=== PATIENT | female | born 1950 | race Caucasian/White ===

== ENCOUNTER → 2018-06-03 09:19 | Outpatient (CLI) | payer MEDICARE, OTHER, SELFPAY ==
[2018-06-03 10:10] LABS: Cholesterol 157 mg/dL (140-199); HDL Cholesterol 41 mg/dL (40-60); LDL Cholesterol Calculated 94 mg/dL (<100); Triglycerides 111 mg/dL (35-150)
== END ==
PROVIDERS: Visit Provider Family Medicine
DX: I25.10 Atherosclerotic heart disease of native coronary artery without angina pectoris (principal)
CPT/HCPCS: 36415; 80061

== ENCOUNTER → 2018-06-13 15:31 | Outpatient (CLI) | payer MEDICARE, OTHER, SELFPAY ==
[2018-06-15 14:59] LABS: Free Kappa Light Chain 28.9 mg/L (3.3-19.4); Free Kappa/ Lambda Ratio 1.83 (0.26-1.65); Free Lambda 15.8 mg/L (5.7-26.3)
[2018-06-15 21:30] LABS: Albumin 3.7 g/dL (3.8-4.8); Alpha 1 Globulin 0.3 g/dL (0.2-0.3); Alpha 2 Globulin 0.7 g/dL (0.5-0.9); Beta 1 Globulin 0.4 g/dL (0.4-0.6); Gamma Globulin 0.7 g/dL (0.8-1.7); Protein, Total 6.2 g/dL (6.1-8.1)
== END ==
PROVIDERS: Family Provider Family Medicine; PCP Family Medicine; Visit Provider Nurse Practitioner Gerontology
DX: D47.2 Monoclonal gammopathy (principal)
CPT/HCPCS: 36415; 83883; 84155; 84165

== ENCOUNTER → 2018-06-15 09:46 | Outpatient (CLI) | payer MEDICARE, OTHER, SELFPAY ==
--- NOTE | 2018-06-15 | DI.MG.S_ITS ---
BILATERAL DIGITAL SCREENING MAMMOGRAM 3D/2D WITH CAD: 06/15/2018 CLINICAL: Routine screening. Family history of breast cancer. Comparison is made to exams dated: 08/06/2014 mammogram, 07/21/2013 mammogram, and 06/06/2016 mammogram - [facility]. There are scattered fibroglandular elements in both breasts. Current study was also evaluated with a Computer Aided Detection (CAD) system. No significant masses, calcifications, or other findings are seen in either breast. There has been no significant interval change. IMPRESSION: There is no mammographic evidence of malignancy. A 1 year screening mammogram is recommended.(06/16/2019) This exam was interpreted at Station ID: [id number]. NOTE: For mammograms, a report in lay terms will be sent to the patient. Approximately 15% of breast malignancies will not be visualized mammographically. In the management of a palpable breast mass, a negative mammogram must not discourage biopsy of a clinically suspicious lesion. Electronically Signed By: Jesi anders/veda:06/17/2018 13:00:16 letter sent: Normal Exam ACR BI-RADS Category 1: Negative [id number]
== END ==
PROVIDERS: PCP Family Medicine; Visit Provider Family Medicine
DX: Z12.31 Encounter for screening mammogram for malignant neoplasm of breast (principal); Z80.3 Family history of malignant neoplasm of breast
CPT/HCPCS: 77063; 77067

== ENCOUNTER → 2018-06-24 09:13 | Outpatient (CLI) | payer MEDICARE, OTHER, SELFPAY ==
[2018-06-24 09:37] LABS: Add Manual Diff / Slide Review NO; Basophils Percent Auto 0.9 % (0-2); Eosinophils Percent Auto 2.2 % (2-4); Hematocrit 36.5 % (36-46); Hemoglobin 12.3 g/dL (12.0-16.0); Lymphocytes Percent Auto 16.6 % (25-40); Mean Corpuscular HGB Conc 33.7 % (30-36); Mean Corpuscular Hemoglobin 26.8 PG (26-34); Mean Corpuscular Volume 79.6 fL (80-100); Monocytes Percent Auto 7.4 % (3-14); Neutrophils Absolute Auto 3800 /uL (3000-5900); Neutrophils Percent Auto 72.9 % (50-75); Platelet Count 258 X10^3/uL (150-400); Red Blood Cell Count 4.58 X10^6/uL (4.0-5.2); Red Cell Distribution Width 15.7 % (11.6-14.8); White Blood Cell Count 5.3 X10^3/uL (4.5-11.0)
[2018-06-24 10:05] LABS: Alanine Aminotransferase 23 IU/L (9-52); Albumin Globulin Ratio 1.3 (1.0-2.8); Alkaline Phosphatase 86 U/L (38-126); Aspartate Aminotransferase 18 IU/L (14-36); Bilirubin Total 1.2 mg/dL (0.2-1.3); Blood Urea Nitrogen 27 mg/dL (7-17); Calcium 9.2 mg/dL (8.4-10.2); Carbon Dioxide 29 mmol/L (22-32); Chloride 104 mmol/L (98-107); Estimated Glomerular Filt Rate > 60.0 mL/min (>60); Globulin 3.1 g/dL (1.7-4.1); Glucose 96 mg/dL (80-110); HEMOLYSIS < 15 (0-50); Potassium 4.2 mmol/L (3.4-5.1); Sodium 144 mmol/L (137-145); Total Protein 7.1 g/dL (6.3-8.2)
== END ==
PROVIDERS: Internal Medicine Hematology & Oncology; PCP Family Medicine; Visit Provider Nurse Practitioner Gerontology
DX: D47.2 Monoclonal gammopathy (principal)
CPT/HCPCS: 36415; 80053; 85025

== ENCOUNTER 2018-07-01 13:30 | Oncology outpatient (ONC) | payer MEDICARE, OTHER, SELFPAY ==
[2018-07-01 13:45] VITALS: BP 131/62; PULSE 64; RESP 18; TEMP 36.8; O2SAT 96
--- NOTE | 2018-07-01 14:56 | ONC.PN ---
PN -Subjective Interval history: Chief complaint 68-year-old female with presumed MGUS. History of Present Illness Mrs. 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 Patient has been having a stable free light chain ratio since her original diagnosis made in March 2016. According to the medical records patient was found to have a M spike on protein electrophoresis in February of 2016 and again in April of 2014. However the immunofixation was negative for any abnormalities. Patient then underwent bone marrow aspiration biopsy on June 09, 2016. No abnormal plasma cells were identified. Multiple myeloma FISH panel was also negative. Quantitative immunoglobulins for IgA, IgG, IgM were all normal at 151, 813, and 57, respectively. Only beta 2 microglobulin level was slightly elevated 0.4. Fat pad biopsy on June the 03/13/2016 was negative for Congo red staining. Patient has a history of coronary artery disease with LAD stents x3. And echocardiogram performed on December 16, 2015 showed at normal ejection fraction 60-65% however patient said that she was diagnosed with diastolic dysfunction. Since then patient has not had a repeat echocardiogram done yet. Patient presents here today for scheduled follow-up visit. Clinically patient reported that her main symptoms has been th intermittent severe weakness. Patient said that at times she was barely able to go to her car. The symptoms are usually better in the morning but with time it got worse. Patient also reported that for the past 1 year she has noticed night sweats suspicious for possible hot flashes. Patient currently is on diet with weight control. In addition patient recently noticed a rapidly growing right lower abdomen nevi. Patient said it was not there just of 2 weeks ago. 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 - Additional ROS All systems PM: reviewed and no additional remarkable complaints except as stated Home Medications and Allergies Home Medications Medication Instructions Recorded Confirmed Type NITROGLYCERIN (Nitrostat) 0.4 mg SUBLINGUAL PRN #0 10/11/10 06/20/18 History Fish Oil 1,000 mg PO BID #0 11/29/12 06/20/18 History albuterol sulfate [Ventolin HFA] 2 puff INH Q4HP PRN #1 inh 08/29/16 06/20/18 Rx carvedilol 25 mg tablet 37.5 mg PO BID #270 tab 02/28/18 06/20/18 Rx isosorbide mononitrate ER 60 mg 60 mg PO DAILY 05/23/18 06/20/18 History tablet,extended release 24 hr tramadol 50 mg tablet 25 mg PO Q4-6H PRN #7 tab 06/17/18 06/20/18 Rx clopidogrel 75 mg tablet 75 mg PO DAILY 06/20/18 06/20/18 History losartan 100 mg tablet 100 mg PO DAILY 06/20/18 06/20/18 History Allergies Allergy/AdvReac Type Severity Reaction Status Date / Time Haemophilus B polysaccharide Allergy Intermediate YRS AGO Verified 06/20/18 13:22 conj w CAUSED [From TriHIBit] FEVER, RECENTLY MOUTH SORES adhesive Allergy Mild Verified 06/20/18 13:22 diazepam Allergy Mild OPPOSITE Verified 06/20/18 13:22 EFFECT, BECAME HYPER/INCOMPLIANT--O.K. WITH VERSED diphtheria,pertussis Allergy Mild YRS AGO Verified 06/20/18 13:22 (acellular),te CAUSED [From TriHIBit] FEVER, RECENTLY MOUTH SORES pseudoephedrine Allergy Mild INCREASED Verified 06/20/18 13:22 HEART RATE Sulfa (Sulfonamide Allergy Unknown Verified 06/20/18 13:22 Antibiotics) [SULFA (SULFONAMIDE ANTIBIOTICS)] benazepril [From Lotensin] Allergy angioadema Verified 06/20/18 13:22 Beta-Blockers AdvReac Mild LOW Verified 06/20/18 13:22 (Beta-Adrenergic Bloc TOLERANCE - HR IN 30s - HOSPITALIZED Exam Vital signs: Temp 98.2 F 07/01/18 13:45 Pulse 64 07/01/18 13:45 Resp 18 07/01/18 13:45 BP 131/62 07/01/18 13:45 Pulse Ox 96 07/01/18 13:45 ECOG 1 Narrative: Constitutional: Well developed, well nourished, not in any acute respiratory distress, average body habitus, well groomed, pleasant and cooperative. HEENT: Normocephalic atraumatic. Extraocular muscle movement intact. Pupils are round, equal and reactive to light and accommodations. Anicteric sclera. No hearing difficulty; Oral mucus membrane moist and without ulcers. Neck: Supple, symmetrical, and tracheal midline; No palpable thyromegaly and no palpable lymph nodes. Respiratory: No use of accessory muscles. Clear to auscultation, and no wheezes or rales or rubs. Cardiovascular: Regular rate and rhythm, S1 and S2 normal, no murmurs gallops or rubs. No JVD. No pitting edema of lower extremities. Abdomen: Soft, nontender, non-distended, bowel sounds normal, no palpable organomegaly, no hernia, no palpable masses. The right lower abdominal wall, there is a irregular shaped brownish nevi slightly raised above the skin. Lower extremities: No palpable pedal edema. On the right side, there is a soft tissue mass supposedly 'lipoma' to the lateral side of the right knee, movable and nontender. Lymphatic: no palpable lymph nodes in the neck, axillae, or groins. Musculoskeletal: normal gait and station, no clubbing, no cyanosis, no pitting edema. Skin: no rashes, no ulcers, no petechiae Neurological: Awake and alert and oriented x3. CN II-XII grossly intact. No focal motor or sensory deficit. Psychiatric: Good judgment, good insight, normal affect, normal thought process, cooperative, no depression, no anxiety. Results - Labs Patient's most recent blood work was performed on June 18, 2018. The CBCs were normal except mild microcytosis with MCV of 79. Protein electrophoresis showed no evidence of M spike. And immunofixation showed no monoclonal proteins. And furthermore the serum free light chain ratio has been stable slightly above the normal range. - Imaging Additional studies: Procedures Injection of anesthetic into peripheral nerve for analgesia (01/20/13) Injection of steroid (12/18/11) Injection or infusion of other therapeutic or prophylactic substance (09/23/13) Manual rupture of joint adhesions (01/20/13) Total knee replacement (01/20/13) Assessment and Plan (1) Monoclonal gammopathy of unknown significance (MGUS) I reviewed the laboratory results with the patient especially SPEP and the immunofixation results from 06/18/2018 with the patient. I also noticed that the previous bone marrow aspiration biopsy was completely normal without evidence of monoclonal plasma cells. I told her that she must be having an evolving MGUS. But at least there is no evidence of progression or evolution into multiple myeloma. I think the best follow-up is to repeat the blood work in about 6 months including CBC, CMP and multiple myeloma panel. We will re-evaluate and discuss about further testing including bone marrow aspiration biopsy. I talked with the patient that the abnormal ratio of serum free light chains can happen in a variety of different diseases including MGUS, multiple myeloma, free light chain disease or even chronic diseases. Patient verbalized understanding. (2) Atypical nevus of abdominal wall According to patient, the right lower abdominal wall nevi seems to be spring up within the last 2 weeks. Patient feels a little bit uncomfortable, but no pain. Given the rapidity of the growth, I think that needs to be biopsied at least by sap pp consultant. We will refer to sap pp consultant for further evaluation. (3) Weak Patient reported previous history of cardiac disease with stents placement x3 in the LAD. I talked with them that in my opinion she needs to be evaluated by Cardiology. The previous echo study was almost 2 years ago. I do not think that the MGUS or the light chain disease can cause these episodic severe weakness. (4) Lipoma Patient insisted that the right knee soft tissue ?lipoma? has been growing since about 1 year ago. It used to be quite small. She feels a little bit discomfort. I talked with her that since his groin, I would think it would be better to have a surgeon to take a look and if it is re-sectable. Patient voiced understanding, and will call surgeon herself.
--- NOTE | 2018-07-01 15:04 | P.PNONC_ITS ---
PN -Subjective Interval history: Chief complaint 68-year-old female with presumed MGUS. History of Present Illness Mrs. 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 Patient has been having a stable free light chain ratio since her original diagnosis made in March 2016. According to the medical records patient was found to have a M spike on protein electrophoresis in February of 2016 and again in April of 2014. However the immunofixation was negative for any abnormalities. Patient then underwent bone marrow aspiration biopsy on June 09, 2016. No abnormal plasma cells were identified. Multiple myeloma FISH panel was also negative. Quantitative immunoglobulins for IgA, IgG, IgM were all normal at 151, 813, and 57, respectively. Only beta 2 microglobulin level was slightly elevated 0.4. Fat pad biopsy on June the 03/13/2016 was negative for [place] red staining. Patient has a history of coronary artery disease with LAD stents x3. And echocardiogram performed on December 16, 2015 showed at normal ejection fraction 60 -65% however patient said that she was diagnosed with diastolic dysfunction. Since then patient has not had a repeat echocardiogram done yet. Patient presents here today for scheduled follow-up visit. Clinically patient reported that her main symptoms has been th intermittent severe weakness. Patient said that at times she was barely able to go to her car. The symptoms are usually better in the morning but with time it got worse. Patient also reported that for the past 1 year she has noticed night sweats suspicious for possible hot flashes. Patient currently is on diet with weight control. In addition patient recently noticed a rapidly growing right lower abdomen nevi. Patient said it was not there just of 2 weeks ago. 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 - Additional ROS All systems PM: reviewed and no additional remarkable complaints except as stated Home Medications and Allergies Home Medications Medication Instructions Recorded Confirmed Type NITROGLYCERIN (Nitrostat) 0.4 mg SUBLINGUAL PRN #0 10/11/10 06/20/18 History Fish Oil 1,000 mg PO BID #0 11/29/12 06/20/18 History albuterol sulfate [Ventolin HFA] 2 puff INH Q4HP PRN #1 inh 08/29/16 06/20/18 Rx carvedilol 25 mg tablet 37.5 mg PO BID #270 tab 02/28/18 06/20/18 Rx isosorbide mononitrate ER 60 mg 60 mg PO DAILY 05/23/18 06/20/18 History tablet,extended release 24 hr tramadol 50 mg tablet 25 mg PO Q4-6H PRN #7 tab 06/17/18 06/20/18 Rx clopidogrel 75 mg tablet 75 mg PO DAILY 06/20/18 06/20/18 History losartan 100 mg tablet 100 mg PO DAILY 06/20/18 06/20/18 History Allergies Allergy/AdvReac Type Severity Reaction Status Date / Time Haemophilus B polysaccharide Allergy Intermediate YRS AGO Verified 06/20/18 13: 22 conj w CAUSED [From TriHIBit] FEVER, RECENTLY MOUTH SORES adhesive Allergy Mild Verified 06/20/18 13:22 diazepam Allergy Mild OPPOSITE Verified 06/20/18 13:22 EFFECT, BECAME HYPER/INCOMPLIANT--O.K. WITH VERSED diphtheria,pertussis Allergy Mild YRS AGO Verified 06/20/18 13:22 (acellular),te CAUSED [From TriHIBit] FEVER, RECENTLY MOUTH SORES pseudoephedrine Allergy Mild INCREASED Verified 06/20/18 13:22 HEART RATE Sulfa (Sulfonamide Allergy Unknown Verified 06/20/18 13:22 Antibiotics) [SULFA (SULFONAMIDE ANTIBIOTICS)] benazepril [From Lotensin] Allergy angioadema Verified 06/20/18 13:22 Beta-Blockers AdvReac Mild LOW Verified 06/20/18 13:22 (Beta-Adrenergic Bloc TOLERANCE - HR IN 30s - HOSPITALIZED Exam Vital signs: 3 Temp 98.2 F 07/01/18 13:45 Pulse 64 07/01/18 13:45 Resp 18 07/01/18 13:45 BP 131/62 07/01/18 13:45 Pulse Ox 96 07/01/18 13:45 ECOG 1 Narrative: Constitutional: Well developed, well nourished, not in any acute respiratory distress, average body habitus, well groomed, pleasant and cooperative. HEENT: Normocephalic atraumatic. Extraocular muscle movement intact. Pupils are round, equal and reactive to light and accommodations. Anicteric sclera. No hearing difficulty; Oral mucus membrane moist and without ulcers. Neck: Supple, symmetrical, and tracheal midline; No palpable thyromegaly and no palpable lymph nodes. Respiratory: No use of accessory muscles. Clear to auscultation, and no wheezes or rales or rubs. Cardiovascular: Regular rate and rhythm, S1 and S2 normal, no murmurs gallops or rubs. No JVD. No pitting edema of lower extremities. Abdomen: Soft, nontender, non-distended, bowel sounds normal, no palpable organomegaly, no hernia, no palpable masses. The right lower abdominal wall, there is a irregular shaped brownish nevi slightly raised above the skin. Lower extremities: No palpable pedal edema. On the right side, there is a soft tissue mass supposedly 'lipoma' to the lateral side of the right knee, movable and nontender. Lymphatic: no palpable lymph nodes in the neck, axillae, or groins. Musculoskeletal: normal gait and station, no clubbing, no cyanosis, no pitting edema. Skin: no rashes, no ulcers, no petechiae Neurological: Awake and alert and oriented x3. CN II-XII grossly intact. No focal motor or sensory deficit. Psychiatric: Good judgment, good insight, normal affect, normal thought process , cooperative, no depression, no anxiety. Results - Labs Patient's most recent blood work was performed on June 18, 2018. The CBCs were normal except mild microcytosis with MCV of 79. Protein electrophoresis showed no evidence of M spike. And immunofixation showed no monoclonal proteins. And furthermore the serum free light chain ratio has been stable slightly above the normal range. - Imaging Additional studies: Procedures Injection of anesthetic into peripheral nerve for analgesia (01/20/13) Injection of steroid (12/18/11) Injection or infusion of other therapeutic or prophylactic substance (09/23/13) Manual rupture of joint adhesions (01/20/13) Total knee replacement (01/20/13) Assessment and Plan (1) Monoclonal gammopathy of unknown significance (MGUS) I reviewed the laboratory results with the patient especially SPEP and the immunofixation results from 06/18/2018 with the patient. I also noticed that the previous bone marrow aspiration biopsy was completely normal without evidence of monoclonal plasma cells. I told her that she must be having an evolving MGUS. But at least there is no evidence of progression or evolution into multiple myeloma. I think the best follow-up is to repeat the blood work in about 6 months including CBC, CMP and multiple myeloma panel. We will re- evaluate and discuss about further testing including bone marrow aspiration biopsy. I talked with the patient that the abnormal ratio of serum free light chains can happen in a variety of different diseases including MGUS, multiple myeloma, free light chain disease or even chronic diseases. Patient verbalized understanding. (2) Atypical nevus of abdominal wall According to patient, the right lower abdominal wall nevi seems to be spring up within the last 2 weeks. Patient feels a little bit uncomfortable, but no pain. Given the rapidity of the growth, I think that needs to be biopsied at least by natural gas plant supervisor. We will refer to natural gas plant supervisor for further evaluation. (3) Weak Patient reported previous history of cardiac disease with stents placement x3 in the LAD. I talked with them that in my opinion she needs to be evaluated by Cardiology. The previous echo study was almost 2 years ago. I do not think that the MGUS or the light chain disease can cause these episodic severe weakness. (4) Lipoma Patient insisted that the right knee soft tissue ?lipoma? has been growing since about 1 year ago. It used to be quite small. She feels a little bit discomfort. I talked with her that since his groin, I would think it would be better to have a surgeon to take a look and if it is re-sectable. Patient voiced understanding, and will call surgeon herself.
== END 2018-07-02 12:00 | disposition home or self-care (01) ==
PROVIDERS: Family Provider Family Medicine; PCP Family Medicine; Visit Provider Nurse Practitioner Gerontology
DX: D47.2 Monoclonal gammopathy (principal); D22.5 Melanocytic nevi of trunk; R53.1 Weakness; D17.79 Benign lipomatous neoplasm of other sites
CPT/HCPCS: 99214

== ENCOUNTER 2018-07-25 10:00 | Outpatient (RCR) | payer MEDICARE, OTHER, SELFPAY ==
[2018-04-30 10:51] VITALS: BP 152/80; BMI 52.7
--- NOTE | 2018-06-19 15:35 | CR.REVALNOTE ---
Current Diagnoses Presence of coronary angioplasty implant and graft (06/19/18) Past Medical History (Last Reviewed 05/28/18 @ 17:58 by Soledad Vick DO) Angioedema (Chronic) CAD (coronary artery disease) (Chronic 2013) Elevated coronary artery calcium score (Chronic) Hypertension (Chronic) Prinzmetal's angina (Chronic 1975) Sleep apnea (Chronic) Statin intolerance (Chronic) Asthma (Resolved) History of recurrent pneumonia (Resolved) Shingles (Resolved 2016) Provider Summary Visit Care Team Role Provider Type Soledad Vick DO Attending Provider Physician Family Provider Primary Care Provider Specialty: Family Practice Address: [address] [place] [address], [facility] Email: [email or web address] CR Re-Evaluation Report 06/19/18 This was Jeffrey's first day back with us since CR 05/08/18. She tolerated exercise very well. Has been going to the [facility] for weight loss and she is doing very well with that. She has lost a total of 22# which meets her Cookie Breaker goal of 15# in 12weeks. Will continue to work with [facility] or continued weight loss. Want to keep Ex Rx the same as what I had for the initial since she had only done 4 sessions under that Rx. Will Continue On TM and NS with intent to do HIIT soon. CR Education Start: 04/30/18 10:51 Freq: Status: Active Protocol: Document 05/01/18 14:35 JCP (Rec: 05/01/18 14:36 JCP [id number]) CR EDUCATION Education REVIEWED LATEST RESEARCH ON CHOLESTEROL Education JEFFREY MET WITH KAN FROM [facility] FOR DIET. Document 05/08/18 16:09 JCTiffanie (Rec: 05/08/18 16:09 JCP [id number]) CR EDUCATION Education MET WITH AKANKSHA RAMIREZ RD Document 06/19/18 10:12 OLVIN (Rec: 06/19/18 10:13 OLVIN [id number]) CR EDUCATION Education Implantable devices with Maliha
[2018-07-15 15:26] VITALS: BP 158/82
[2018-07-25 13:24] VITALS: BMI 43.5
[2018-07-25 15:24] VITALS: BP 144/72
== END 2018-08-07 08:48 ==
LOC: CAR 10:00
PROVIDERS: Family Provider Family Medicine; PCP Family Medicine; Visit Provider Family Medicine
DX: Z95.5 Presence of coronary angioplasty implant and graft (principal)
CPT/HCPCS: 93798

== ENCOUNTER → 2018-08-02 08:08 | Outpatient (CLI) | payer MEDICARE, OTHER, SELFPAY ==
--- NOTE | 2018-08-02 08:10 | DI.RAD.S_ITS ---
PROCEDURE: XR THORACIC SPINE 3V INDICATIONS: Back pain TECHNIQUE: 3 views of the thoracic spine were acquired. COMPARISON: None. FINDINGS: Bones: No fractures or dislocations. No suspicious bony lesions. 12 pairs of ribs are noted, and appear intact where visualized. Multilevel mild disc desiccation is present throughout the thoracic spine. Multilevel small anterior osteophytes are present. Soft tissues: No paravertebral stripe thickening. IMPRESSION: Multilevel degenerative changes as above. No visualized acute fracture or dislocation. However, if clinical concern and/or pain persist, short interval imaging followup in 7-10 days is recommended, as occult injury cannot be definitively excluded. Dictated by: Alix Brown M.D. on 08/02/2018 at 14:46 Approved by: Alix Brown M.D. on 08/02/2018 at 14:47
== END ==
PROVIDERS: Family Provider Family Medicine; PCP Family Medicine; Visit Provider Family Medicine
DX: M51.34 Other intervertebral disc degeneration, thoracic region (principal); M54.6 Pain in thoracic spine
CPT/HCPCS: 72072

== ENCOUNTER → 2018-09-20 12:07 | Outpatient (CLI) | payer MEDICARE, OTHER, SELFPAY ==
--- NOTE | 2018-09-20 12:08 | DI.RAD.S_ITS ---
PROCEDURE: XR CHEST 2V INDICATIONS: COUGH TECHNIQUE: 2 views of the chest were acquired. COMPARISON: [facility], , CHEST 1 VIEW, 11/24/2017, 15:50. FINDINGS: Surgical changes and devices: None. Lungs and pleura: No pleural effusions or pneumothorax. Lungs are clear. Mediastinum: Mediastinal contours are normal. Heart size is enlarged. Bones and chest wall: No suspicious bony abnormalities. Soft tissues appear unremarkable. IMPRESSION: No acute cardiopulmonary pathology. Dictated by: Dillon Miles M.D. on 09/20/2018 at 12:25 Approved by: Dillon Miles M.D. on 09/20/2018 at 12:25
== END ==
PROVIDERS: PCP Family Medicine; Visit Provider Family Medicine
DX: R05 Cough (principal)
CPT/HCPCS: 71046

== ENCOUNTER 2018-10-08 13:45 | Outpatient (RCR) | payer MEDICARE, BC, OTHER, SELFPAY ==
--- NOTE | 2018-02-05 09:53 | PT.OIE ---
Current Diagnoses Pain in right shoulder (02/05/18) Past Surgical History History of cataract removal with insertion of prosthetic lens Provider Visit Care Team Role Provider Type Madyson Theodore MD Attending Provider Physician Family Provider Primary Care Provider Specialty: Family Practice Address: [address] [place] [address], [id number] Email: [email or web address] Physical Therapy Initial Evaluation PT-OP-A Visit Information Start: 02/05/18 08:08 Freq: Status: Active Protocol: Document 02/05/18 09:06 [facility]AK (Rec: 02/05/18 09:16 [facility]AK [id number]) Out-Patient Physical Therapy Visit Information Visit Information Visit Type Initial Evaluation Visit Start Time 08:15 Visit Stop Time 09:15 Total Visit Minutes 60 Visit Number [address] Visits 0 Evaluation Information Evaluation Date 02/05/18 PT-OP-B Current Condition Start: 02/05/18 08:08 Freq: Status: Active Protocol: Document 02/05/18 08:15 SAK (Rec: 02/05/18 08:24 [facility] [id number]) Current Condition History of Current Condition Onset Date 4 weeks today History of Current Condition Patient c/o severe, function- limiting pain right shoulder. Fell just after getting out of car; fell onto bilateral knees and right shoulder. X- ray negative, no other imaging to date. Orthopedic physician Dr. Dietrich recommended PT, will consider further imaging and treatment if conservative measures not helpful. Can't reach overhead or behind her back. C/o severe, shooting pain. Some numbness right hand when laying on shoulder. Treatment Goals Patient/Caregiver Goals Decrease pain and improve function of right UE; able to reach overhead or behind her back Prior Functional Status Baseline Function- ADL's Independent Current Functional Impairments (Reported) Functional Limitations- ADL's unable to reach overhead or behind her back Personal Factors Other Personal Factors That May Effect multiple medical issues Therapy/Recovery PT-OP-C Subjective Start: 02/05/18 08:08 Freq: Status: Active Protocol: Document 02/05/18 09:06 SAK (Rec: 02/05/18 09:16 [facility]AK [id number]) Patient Questionnaires Quick Dash- Upper Extremity Quick Dash UE Score 70 Quick Dash UE Impairment 60 to 79% Impaired (Score 60- 79) PT-OP-E Functional Tests Start: 02/05/18 08:08 Freq: Status: Active Protocol: Document 02/05/18 09:06 [facility] (Rec: 02/05/18 09:16 [facility] [id number]) Functional Tests Apley's Scratch Test Action 1: The subject is instructed to touch the opposite shoulder with his/her hand. This motion checks Glenohumeral adduction, internal rotation , horizontal adduction and scapular protraction Action 2: The subject is instructed to place his/her arm overhead and reach behind the neck to touch his/her upper back. This motion checks Glenohumeral abduction, external rotation and scapular upward rotation and elevation. Action 3: The subject puts his/her hand on the lower back and reaches upward as far as possible. This motion checks glenohumeral adduction, internal rotation and scapular retraction with downward rotation Action 1- Left posterior shoulder Action 1- Right anterior shoulder Action 2- Left T2 Action 2- Right C2 Action 3- Left T7 Action 3- Right T12 PT-OP-F Manual Assessment Start: 02/05/18 08:08 Freq: Status: Active Protocol: Document 02/05/18 09:16 [facility] (Rec: 02/05/18 09:24 [facility] [id number]) Manual Assessments Soft Tissue Assessment Soft Tissue Mobility Assessment Moderate palpable tightness bilateral UT and levator scap right greater than left PT-OP-J Posture/Palpation/Skin Start: 02/05/18 08:08 Freq: Status: Active Protocol: Document 02/05/18 09:16 [facility] (Rec: 02/05/18 09:24 [facility] [id number]) Posture Evaluation Position Sitting Head/C-Spine Posture Forward Head T-Spine Posture Increased Kyphosis Shoulder Posture (L) Rounded (R) Rounded Scapula Posture (L) Protracted (R) Protracted Arm Posture (R) Internally Rotated PT-OP-K Range of Motion Start: 02/05/18 08:08 Freq: Status: Active Protocol: Document 02/05/18 09:16 [facility] (Rec: 02/05/18 09:24 [facility] [id number]) Cervical Spine Range of Motion Cervical Spine Active Testing Position Sitting Flexion 50 Extension 30 Rotation Left 40 Rotation Right 40 Lateral Flexion Left 20 Lateral Flexion Right 20 ROM Limitations Pain Shoulder Goniometric Range of Motion Shoulder Measured in Degrees Right Shoulder ROM WFL No Testing Position Sitting Flexion 140 Extension 15 Abduction 120 Horizontal Abduction 95 Horizontal Adduction 20 External Rotation at 45 degrees 25 Abduction Left Shoulder ROM WFL Yes Testing Position Sitting Flexion 165 Extension 20 Abduction 150 Horizontal Abduction 170 Horizontal Adduction 45 External Rotation at 45 degrees 75 Abduction Shoulder ROM Limitations Shoulder ROM Limitations Pain Comments moderate to severe pain per patient PT-OP-L Special Tests Start: 02/05/18 08:08 Freq: Status: Active Protocol: Document 02/05/18 09:16 [facility] (Rec: 02/05/18 09:24 [facility] [id number]) Special Tests Shoulder Special Tests Passive ER Rotator Cuff Test Results positive right IR/Horizontal ADD Impingement Test Results positive right Drop Arm Rotator Cuff Test Results positive right PT-OP-M Strength Start: 02/05/18 08:08 Freq: Status: Active Protocol: Document 02/05/18 09:24 [facility] (Rec: 02/05/18 09:36 [facility] [id number]) Cervical Spine Strength Cervical Spine Manual Muscle Testing Comments Not tested due to pain Shoulder Strength Shoulder Manual Muscle Testing Right Reason Not Measured Pain Left Reason Not Measured WFL PT-OP-Q Treatments Start: 02/05/18 08:08 Freq: Status: Active Protocol: Document 02/05/18 09:24 [facility] (Rec: 02/05/18 09:36 [facility] [id number]) Self-Care/Home Management Treatment Education Patient Education Home Exercise Program Other Education reviewed HEP issued by physician; modifications made PT-OP-R Modalities Start: 02/05/18 08:08 Freq: Status: Active Protocol: Document 02/05/18 09:24 [facility] (Rec: 02/05/18 09:36 [facility] [id number]) Hot Pack/Cold Pack Treatment Hot Pack Location right c/s and shoulder Patient Position Hooklying Treatment Duration (minutes) 15 Patient Tolerance Fair Iontophoresis Treatment Right Shoulder Treatment Medication Dexamethasone (-) Medication Amount (mL) (ml) 4 Patient Tolerance Good PT-OP-T Assessment and Plan Start: 02/05/18 08:08 Freq: Status: Active Protocol: Document 02/05/18 09:24 [facility] (Rec: 02/05/18 09:36 [facility] [id number]) Physical Therapy Assessment Rehab Potential Rehabilitation Potential Good Evaluation Complexity Number of Personal Factors/Comorbidities 3 or More Number of Body Systems Impaired 3 Clinical Presentation at Evaluation Unstable Impairments Impairments Functional Activities Pain Posture ROM Soft Tissue Mobility Goals Three Impairment Pain Short Term Goal (STG) Decrease pain by 50% STG Duration 6 wks LTG Duration 12 wks Two Impairment funcion: UE quickdash score 70 % Short Term Goal (STG) Decrease score to 50 STG Duration 6 wks Cafeteria Team Leader Goal (LTG) Decrease score to 20 LTG Duration 12 wks One Impairment unable to reach overhead, out to side, or behind her back d/ t pain Short Term Goal (STG) Patient will be able to resume 50% of her normal activities using right UE STG Duration 6 wks Cafeteria Team Leader Goal (LTG) Patient will be able to return to all prior daily activities using right UE with minimal to no pain LTG Duration 12 wks Assessment Summary Assessment Patient presents with signs and symptoms of rotator cuff injury as well as acute injury to cervical spine as a result of a fall. Severe impact on patient's functional use of her right shoulder. X-ray of shoulder negative, no imaging done to c/s. Feel imaging to cervical spine would be helpful to rule out injury. Physical Therapy Plan Frequency and Duration Frequency of Treatment 2x/Week Duration of Treatment 12 wks Plan of Care Start Date 02/05/18 Plan of Care End Date 04/30/18 Therapeutic Interventions Therapeutic Interventions Home Exercise Program Manual Therapy Patient/Caregiver Education Self-Care/Home Management Taping Therapeutic Activities Therapeutic Exercises Modalities Electric Stimulation Hot Packs Infrared Therapy Iontophoresis Ultrasound Next Visit Focus/Plan Next Visit Plan Assess response to heat and iontophoresis, gentle ther ex progression, consider kinesiotape next session. Provider Signature Date
--- NOTE | 2018-02-05 09:54 | PT.OPPOC ---
Current Diagnoses Pain in right shoulder (02/05/18) Provider Visit Care Team Role Provider Type Madyson Theodore MD Attending Provider Physician Family Provider Primary Care Provider Specialty: Family Practice Address: [address] [place] [address], [id number] Email: [email or web address] Plan Of Care PT-OP-T Assessment and Plan Start: 02/05/18 08:08 Freq: Status: Active Protocol: Document 02/05/18 09:24 [facility] (Rec: 02/05/18 09:36 [facility] [id number]) Physical Therapy Assessment Rehab Potential Rehabilitation Potential Good Evaluation Complexity Number of Personal Factors/Comorbidities 3 or More Number of Body Systems Impaired 3 Clinical Presentation at Evaluation Unstable Impairments Impairments Functional Activities Pain Posture ROM Soft Tissue Mobility Goals Three Impairment Pain Short Term Goal (STG) Decrease pain by 50% STG Duration 6 wks LTG Duration 12 wks Two Impairment funcion: UE quickdash score 70 % Short Term Goal (STG) Decrease score to 50 STG Duration 6 wks Reading Professor Goal (LTG) Decrease score to 20 LTG Duration 12 wks One Impairment unable to reach overhead, out to side, or behind her back d/ t pain Short Term Goal (STG) Patient will be able to resume 50% of her normal activities using right UE STG Duration 6 wks Reading Professor Goal (LTG) Patient will be able to return to all prior daily activities using right UE with minimal to no pain LTG Duration 12 wks Assessment Summary Assessment Patient presents with signs and symptoms of rotator cuff injury as well as acute injury to cervical spine as a result of a fall. Severe impact on patient's functional use of her right shoulder. X-ray of shoulder negative, no imaging done to c/s. Feel imaging to cervical spine would be helpful to rule out injury. Physical Therapy Plan Frequency and Duration Frequency of Treatment 2x/Week Duration of Treatment 12 wks Plan of Care Start Date 02/05/18 Plan of Care End Date 04/30/18 Therapeutic Interventions Therapeutic Interventions Home Exercise Program Manual Therapy Patient/Caregiver Education Self-Care/Home Management Taping Therapeutic Activities Therapeutic Exercises Modalities Electric Stimulation Hot Packs Infrared Therapy Iontophoresis Ultrasound Next Visit Focus/Plan Next Visit Plan Assess response to heat and iontophoresis, gentle ther ex progression, consider kinesiotape next session. Plan of Care Dates Plan of Care Start Date 02/05/18 Plan of Care End Date 04/30/18 Please Sign and Return: I have reviewed this Plan of Care and certify that the skilled therapy services above are required to meet the patient???s needs. Physician Signature Date Printed Name and Credentials
--- NOTE | 2018-02-08 16:04 | PT.OTN ---
Current Diagnoses Pain in right shoulder (02/08/18) Physical Therapy Treatment Note PT-OP-A Visit Information Start: 02/05/18 08:08 Freq: Status: Active Protocol: Document 02/08/18 12:58 [facility] (Rec: 02/08/18 16:03 [facility] [id number]) Out-Patient Physical Therapy Visit Information Visit Information Visit Type Treatment Note Visit Start Time 12:58 Visit Stop Time 13:50 Total Visit Minutes 52 Visit Number 2 Number of STRUCTURAL ENGINEER Visits 0 PT-OP-B Current Condition Start: 02/05/18 08:08 Freq: Status: Active Protocol: Document 02/08/18 12:58 [facility] (Rec: 02/08/18 13:39 [facility] [id number]) Current Condition Personal Factors Other Personal Factors That May Effect Shooting pains even with just Therapy/Recovery sitting still. PT-OP-C Subjective Start: 02/05/18 08:08 Freq: Status: Active Protocol: Document 02/05/18 09:06 [facility]AK (Rec: 02/05/18 09:16 [facility] [id number]) Patient Questionnaires Quick Dash- Upper Extremity Quick Dash UE Score 70 Quick Dash UE Impairment 60 to 79% Impaired (Score 60- 79) PT-OP-E Functional Tests Start: 02/05/18 08:08 Freq: Status: Active Protocol: Document 02/05/18 09:06 [facility] (Rec: 02/05/18 09:16 [facility] [id number]) Functional Tests Apley's Scratch Test Action 1: The subject is instructed to touch the opposite shoulder with his/her hand. This motion checks Glenohumeral adduction, internal rotation , horizontal adduction and scapular protraction Action 2: The subject is instructed to place his/her arm overhead and reach behind the neck to touch his/her upper back. This motion checks Glenohumeral abduction, external rotation and scapular upward rotation and elevation. Action 3: The subject puts his/her hand on the lower back and reaches upward as far as possible. This motion checks glenohumeral adduction, internal rotation and scapular retraction with downward rotation Action 1- Left posterior shoulder Action 1- Right anterior shoulder Action 2- Left T2 Action 2- Right C2 Action 3- Left T7 Action 3- Right T12 PT-OP-F Manual Assessment Start: 02/05/18 08:08 Freq: Status: Active Protocol: Document 02/05/18 09:16 [facility] (Rec: 02/05/18 09:24 [facility] [id number]) Manual Assessments Soft Tissue Assessment Soft Tissue Mobility Assessment Moderate palpable tightness bilateral UT and levator scap right greater than left PT-OP-J Posture/Palpation/Skin Start: 02/05/18 08:08 Freq: Status: Active Protocol: Document 02/05/18 09:16 [facility] (Rec: 02/05/18 09:24 [facility] [id number]) Posture Evaluation Position Sitting Head/C-Spine Posture Forward Head T-Spine Posture Increased Kyphosis Shoulder Posture (L) Rounded (R) Rounded Scapula Posture (L) Protracted (R) Protracted Arm Posture (R) Internally Rotated PT-OP-K Range of Motion Start: 02/05/18 08:08 Freq: Status: Active Protocol: Document 02/05/18 09:16 [facility] (Rec: 02/05/18 09:24 [facility] [id number]) Cervical Spine Range of Motion Cervical Spine Active Testing Position Sitting Flexion 50 Extension 30 Rotation Left 40 Rotation Right 40 Lateral Flexion Left 20 Lateral Flexion Right 20 ROM Limitations Pain Shoulder Goniometric Range of Motion Shoulder Measured in Degrees Right Shoulder ROM WFL No Testing Position Sitting Flexion 140 Extension 15 Abduction 120 Horizontal Abduction 95 Horizontal Adduction 20 External Rotation at 45 degrees 25 Abduction Left Shoulder ROM WFL Yes Testing Position Sitting Flexion 165 Extension 20 Abduction 150 Horizontal Abduction 170 Horizontal Adduction 45 External Rotation at 45 degrees 75 Abduction Shoulder ROM Limitations Shoulder ROM Limitations Pain Comments moderate to severe pain per patient PT-OP-L Special Tests Start: 02/05/18 08:08 Freq: Status: Active Protocol: Document 02/05/18 09:16 [facility] (Rec: 02/05/18 09:24 [facility] [id number]) Special Tests Shoulder Special Tests Passive ER Rotator Cuff Test Results positive right IR/Horizontal ADD Impingement Test Results positive right Drop Arm Rotator Cuff Test Results positive right PT-OP-M Strength Start: 02/05/18 08:08 Freq: Status: Active Protocol: Document 02/05/18 09:24 [facility] (Rec: 02/05/18 09:36 [facility] [id number]) Cervical Spine Strength Cervical Spine Manual Muscle Testing Comments Not tested due to pain Shoulder Strength Shoulder Manual Muscle Testing Right Reason Not Measured Pain Left Reason Not Measured WFL PT-OP-Q Treatments Start: 02/05/18 08:08 Freq: Status: Active Protocol: Document 02/08/18 12:58 [facility] (Rec: 02/08/18 16:03 [facility] [id number]) Therapeutic Exercises Supine Exercises 1 Supine Exercise Name elbow flex/ext Reps/Minutes 5x Sitting Exercises 2 Sitting Exercise Name shoulder shrug and scap squeeze Reps/Minutes 5 1 Sitting Exercise Name pulleys shoulder flex Reps/Minutes 10x Standing Exercises 1 Standing Exercise Name therapy ball push on table Reps/Minutes 10x Manual Therapy Treatment Soft Tissue Mobilization 1 Body Location left UT, c/s, deltoid, biceps, rhomboids Mobilization Type Strumming Intensity/Depth Moderate Body Position hooklying PT-OP-R Modalities Start: 02/05/18 08:08 Freq: Status: Active Protocol: Document 02/08/18 12:58 [facility] (Rec: 02/08/18 16:03 [facility] [id number]) Hot Pack/Cold Pack Treatment Hot Pack Location right c/s and shoulder Patient Position Hooklying Treatment Duration (minutes) 15 Patient Tolerance Fair Iontophoresis Treatment Right Shoulder Treatment Medication Dexamethasone (-) Medication Amount (mL) (ml) 4 Patient Tolerance Good Ultrasound Therapy Treatment Left Shoulder Treatment Duration (minutes) 8 Patient Position Supine Coupling Medium Ultrasound Gel Frequency Setting (mHz) 1 Mode Setting Continuous Intensity Setting (w/cm2) 1.2 Patient Tolerance Good PT-OP-T Assessment and Plan Start: 02/05/18 08:08 Freq: Status: Active Protocol: Document 02/08/18 12:58 [facility] (Rec: 02/08/18 16:03 [facility] [id number]) Physical Therapy Assessment Rehab Potential Rehabilitation Potential Good Impairments Impairments Functional Activities Pain Posture ROM Soft Tissue Mobility Assessment Summary Assessment oor tolerance for ther ex, patient in very guarded, tense position. 1 further session of iontophoresis today more medial shoulder before trying kinesiotape next session. Physical Therapy Plan Frequency and Duration Frequency of Treatment 2x/Week Duration of Treatment 12 wks Plan of Care Start Date 02/05/18 Plan of Care End Date 04/30/18 Therapeutic Interventions Therapeutic Interventions Home Exercise Program Manual Therapy Patient/Caregiver Education Self-Care/Home Management Taping Therapeutic Activities Therapeutic Exercises Modalities Electric Stimulation Hot Packs Infrared Therapy Iontophoresis Ultrasound Next Visit Focus/Plan Next Visit Plan kinesiotape next session, further manual treatments for pain management.
--- NOTE | 2018-02-12 09:10 | PT.OTN ---
Current Diagnoses Pain in right shoulder (02/12/18) Physical Therapy Treatment Note PT-OP-A Visit Information Start: 02/05/18 08:08 Freq: Status: Active Protocol: Document 02/12/18 08:13 [facility] (Rec: 02/12/18 09:10 [facility] [id number]) Out-Patient Physical Therapy Visit Information Visit Information Visit Type Treatment Note Visit Start Time 08:13 Visit Stop Time 08:58 Total Visit Minutes 45 Visit Number 3 Number of WAREHOUSE ASSISTANT Visits 0 PT-OP-B Current Condition Start: 02/05/18 08:08 Freq: Status: Active Protocol: Document 02/08/18 12:58 [facility] (Rec: 02/08/18 13:39 [facility] [id number]) Current Condition Personal Factors Other Personal Factors That May Effect Shooting pains even with just Therapy/Recovery sitting still. PT-OP-C Subjective Start: 02/05/18 08:08 Freq: Status: Active Protocol: Document 02/12/18 08:13 [facility] (Rec: 02/12/18 09:10 [facility] [id number]) OP-PT Subjective Patient Comments Patient Comments better after day of doing nothing, but bad again today after busier day. Can't pput bra on by herself, painful to fasten seatbelt, reach to side or overhead; pain severe, can 't think. PT-OP-E Functional Tests Start: 02/05/18 08:08 Freq: Status: Active Protocol: Document 02/05/18 09:06 [facility] (Rec: 02/05/18 09:16 [facility] [id number]) Functional Tests Apley's Scratch Test Action 1: The subject is instructed to touch the opposite shoulder with his/her hand. This motion checks Glenohumeral adduction, internal rotation , horizontal adduction and scapular protraction Action 2: The subject is instructed to place his/her arm overhead and reach behind the neck to touch his/her upper back. This motion checks Glenohumeral abduction, external rotation and scapular upward rotation and elevation. Action 3: The subject puts his/her hand on the lower back and reaches upward as far as possible. This motion checks glenohumeral adduction, internal rotation and scapular retraction with downward rotation Action 1- Left posterior shoulder Action 1- Right anterior shoulder Action 2- Left T2 Action 2- Right C2 Action 3- Left T7 Action 3- Right T12 PT-OP-F Manual Assessment Start: 02/05/18 08:08 Freq: Status: Active Protocol: Document 02/05/18 09:16 [facility] (Rec: 02/05/18 09:24 [facility] [id number]) Manual Assessments Soft Tissue Assessment Soft Tissue Mobility Assessment Moderate palpable tightness bilateral UT and levator scap right greater than left PT-OP-J Posture/Palpation/Skin Start: 02/05/18 08:08 Freq: Status: Active Protocol: Document 02/05/18 09:16 [facility] (Rec: 02/05/18 09:24 [facility] [id number]) Posture Evaluation Position Sitting Head/C-Spine Posture Forward Head T-Spine Posture Increased Kyphosis Shoulder Posture (L) Rounded (R) Rounded Scapula Posture (L) Protracted (R) Protracted Arm Posture (R) Internally Rotated PT-OP-K Range of Motion Start: 02/05/18 08:08 Freq: Status: Active Protocol: Document 02/05/18 09:16 [facility] (Rec: 02/05/18 09:24 [facility] [id number]) Cervical Spine Range of Motion Cervical Spine Active Testing Position Sitting Flexion 50 Extension 30 Rotation Left 40 Rotation Right 40 Lateral Flexion Left 20 Lateral Flexion Right 20 ROM Limitations Pain Shoulder Goniometric Range of Motion Shoulder Measured in Degrees Right Shoulder ROM WFL No Testing Position Sitting Flexion 140 Extension 15 Abduction 120 Horizontal Abduction 95 Horizontal Adduction 20 External Rotation at 45 degrees 25 Abduction Left Shoulder ROM WFL Yes Testing Position Sitting Flexion 165 Extension 20 Abduction 150 Horizontal Abduction 170 Horizontal Adduction 45 External Rotation at 45 degrees 75 Abduction Shoulder ROM Limitations Shoulder ROM Limitations Pain Comments moderate to severe pain per patient PT-OP-L Special Tests Start: 02/05/18 08:08 Freq: Status: Active Protocol: Document 02/05/18 09:16 [facility] (Rec: 02/05/18 09:24 [facility] [id number]) Special Tests Shoulder Special Tests Passive ER Rotator Cuff Test Results positive right IR/Horizontal ADD Impingement Test Results positive right Drop Arm Rotator Cuff Test Results positive right PT-OP-M Strength Start: 02/05/18 08:08 Freq: Status: Active Protocol: Document 02/05/18 09:24 [facility] (Rec: 02/05/18 09:36 [facility] [id number]) Cervical Spine Strength Cervical Spine Manual Muscle Testing Comments Not tested due to pain Shoulder Strength Shoulder Manual Muscle Testing Right Reason Not Measured Pain Left Reason Not Measured WFL PT-OP-Q Treatments Start: 02/05/18 08:08 Freq: Status: Active Protocol: Document 02/12/18 08:13 [facility] (Rec: 02/12/18 09:10 [facility] [id number]) Therapeutic Exercises Supine Exercises 2 Supine Exercise Name shoulder IR/ER AAROM 1 Supine Exercise Name elbow flex/ext Reps/Minutes 5x Sitting Exercises 1 Sitting Exercise Name pulleys shoulder flex Reps/Minutes 10x Standing Exercises 1 Standing Exercise Name therapy ball push on table Reps/Minutes 10x Comments fwd/bk, side, circles Manual Therapy Treatment Soft Tissue Mobilization 1 Body Location left UT, c/s, deltoid, biceps, rhomboids Mobilization Type Strumming Intensity/Depth Moderate Body Position hooklying Taping 1 Body Location right shoulder Y strip Treatment Focus support and pain management Type of Tape Kinesio Tape PT-OP-R Modalities Start: 02/05/18 08:08 Freq: Status: Active Protocol: Document 02/12/18 08:13 [facility] (Rec: 02/12/18 09:10 [facility] [id number]) Hot Pack/Cold Pack Treatment Hot Pack Location c/s Patient Position Hooklying Treatment Duration (minutes) 15 Patient Tolerance Fair Comments during manual treatment Iontophoresis Treatment Right Shoulder Treatment Medication Dexamethasone (-) Medication Amount (mL) (ml) 4 Patient Tolerance Good Ultrasound Therapy Treatment Left Shoulder Treatment Duration (minutes) 8 Patient Position Supine Coupling Medium Ultrasound Gel Frequency Setting (mHz) 1 Mode Setting Continuous Intensity Setting (w/cm2) 1.2 Patient Tolerance Good PT-OP-T Assessment and Plan Start: 02/05/18 08:08 Freq: Status: Active Protocol: Document 02/12/18 08:13 [facility] (Rec: 02/12/18 09:10 [facility] [id number]) Physical Therapy Assessment Assessment Summary Assessment Sl better tolerance for ball ex, but overall pain still severe and easily exacerbated. Physical Therapy Plan Frequency and Duration Frequency of Treatment 2x/Week Duration of Treatment 12 wks Plan of Care Start Date 02/05/18 Plan of Care End Date 04/30/18 Therapeutic Interventions Therapeutic Interventions Home Exercise Program Manual Therapy Patient/Caregiver Education Self-Care/Home Management Taping Therapeutic Activities Therapeutic Exercises Modalities Electric Stimulation Hot Packs Infrared Therapy Iontophoresis Ultrasound Next Visit Focus/Plan Next Visit Plan Assess response to kinesiotape , increased rest per PT recommendation. Please Sign and Return: I have reviewed this Plan of Care and certify that the skilled therapy services above are required to meet the patient???s needs. Physician Signature Date Printed Name and Credentials Clinical Instructor Signature Printed Name and Credentials
--- NOTE | 2018-02-21 09:33 | PT.OTN ---
Current Diagnoses Pain in right shoulder (02/21/18) Physical Therapy Treatment Note PT-OP-A Visit Information Start: 02/05/18 08:08 Freq: Status: Active Protocol: Document 02/21/18 08:13 [facility] (Rec: 02/21/18 08:34 [facility] [id number]) Out-Patient Physical Therapy Visit Information Visit Information Visit Type Treatment Note Visit Start Time 08:15 Visit Stop Time 09:15 Total Visit Minutes 60 Visit Number 4 Number of REDYE HAND Visits 0 PT-OP-B Current Condition Start: 02/05/18 08:08 Freq: Status: Active Protocol: Document 02/08/18 12:58 [facility] (Rec: 02/08/18 13:39 [facility] [id number]) Current Condition Personal Factors Other Personal Factors That May Effect Shooting pains even with just Therapy/Recovery sitting still. PT-OP-C Subjective Start: 02/05/18 08:08 Freq: Status: Active Protocol: Document 02/21/18 08:13 [facility] (Rec: 02/21/18 09:33 [facility] [id number]) OP-PT Subjective Patient Comments Patient Comments Pain persists, saw doctor. Since she can't tolerate MRI is going to have ultrasound of shoulder in [place] next week. PT-OP-E Functional Tests Start: 02/05/18 08:08 Freq: Status: Active Protocol: Document 02/05/18 09:06 [facility] (Rec: 02/05/18 09:16 [facility] [id number]) Functional Tests Apley's Scratch Test Action 1: The subject is instructed to touch the opposite shoulder with his/her hand. This motion checks Glenohumeral adduction, internal rotation , horizontal adduction and scapular protraction Action 2: The subject is instructed to place his/her arm overhead and reach behind the neck to touch his/her upper back. This motion checks Glenohumeral abduction, external rotation and scapular upward rotation and elevation. Action 3: The subject puts his/her hand on the lower back and reaches upward as far as possible. This motion checks glenohumeral adduction, internal rotation and scapular retraction with downward rotation Action 1- Left posterior shoulder Action 1- Right anterior shoulder Action 2- Left T2 Action 2- Right C2 Action 3- Left T7 Action 3- Right T12 PT-OP-F Manual Assessment Start: 02/05/18 08:08 Freq: Status: Active Protocol: Document 02/05/18 09:16 [facility] (Rec: 02/05/18 09:24 [facility] [id number]) Manual Assessments Soft Tissue Assessment Soft Tissue Mobility Assessment Moderate palpable tightness bilateral UT and levator scap right greater than left PT-OP-J Posture/Palpation/Skin Start: 02/05/18 08:08 Freq: Status: Active Protocol: Document 02/05/18 09:16 [facility] (Rec: 02/05/18 09:24 [facility] [id number]) Posture Evaluation Position Sitting Head/C-Spine Posture Forward Head T-Spine Posture Increased Kyphosis Shoulder Posture (L) Rounded (R) Rounded Scapula Posture (L) Protracted (R) Protracted Arm Posture (R) Internally Rotated PT-OP-K Range of Motion Start: 02/05/18 08:08 Freq: Status: Active Protocol: Document 02/05/18 09:16 [facility] (Rec: 02/05/18 09:24 [facility] [id number]) Cervical Spine Range of Motion Cervical Spine Active Testing Position Sitting Flexion 50 Extension 30 Rotation Left 40 Rotation Right 40 Lateral Flexion Left 20 Lateral Flexion Right 20 ROM Limitations Pain Shoulder Goniometric Range of Motion Shoulder Measured in Degrees Right Shoulder ROM WFL No Testing Position Sitting Flexion 140 Extension 15 Abduction 120 Horizontal Abduction 95 Horizontal Adduction 20 External Rotation at 45 degrees 25 Abduction Left Shoulder ROM WFL Yes Testing Position Sitting Flexion 165 Extension 20 Abduction 150 Horizontal Abduction 170 Horizontal Adduction 45 External Rotation at 45 degrees 75 Abduction Shoulder ROM Limitations Shoulder ROM Limitations Pain Comments moderate to severe pain per patient PT-OP-L Special Tests Start: 02/05/18 08:08 Freq: Status: Active Protocol: Document 02/05/18 09:16 [facility] (Rec: 02/05/18 09:24 [facility] [id number]) Special Tests Shoulder Special Tests Passive ER Rotator Cuff Test Results positive right IR/Horizontal ADD Impingement Test Results positive right Drop Arm Rotator Cuff Test Results positive right PT-OP-M Strength Start: 02/05/18 08:08 Freq: Status: Active Protocol: Document 02/05/18 09:24 [facility] (Rec: 02/05/18 09:36 [facility] [id number]) Cervical Spine Strength Cervical Spine Manual Muscle Testing Comments Not tested due to pain Shoulder Strength Shoulder Manual Muscle Testing Right Reason Not Measured Pain Left Reason Not Measured WFL PT-OP-Q Treatments Start: 02/05/18 08:08 Freq: Status: Active Protocol: Document 02/21/18 08:13 [facility] (Rec: 02/21/18 08:34 [facility] [id number]) Therapeutic Exercises Supine Exercises 3 Supine Exercise Name c/s rotation Reps/Minutes 5 2 Supine Exercise Name shoulder IR/ER AAROM 1 Supine Exercise Name elbow flex/ext Reps/Minutes 5x Sitting Exercises 3 Sitting Exercise Name shoulder flex hands on ball 1 Sitting Exercise Name pulleys shoulder flex Reps/Minutes 10x Standing Exercises 3 Standing Exercise Name shoulder ext with wand Equipment Used wand 2 Standing Exercise Name row, shoulder ext, ER Equipment Used L1 theraband 1 Standing Exercise Name therapy ball push on table Manual Therapy Treatment Soft Tissue Mobilization 1 Body Location left UT, c/s, deltoid, biceps, rhomboids Mobilization Type Strumming Intensity/Depth Moderate Body Position hooklying Taping 1 Body Location right shoulder Y strip Treatment Focus support and pain management Type of Tape Kinesio Tape Self-Care/Home Management Treatment Education Patient Education Home Exercise Program Pain Management Other Education Use of heat on shoulder and neck, add supine neck ROM PT-OP-R Modalities Start: 02/05/18 08:08 Freq: Status: Active Protocol: Document 02/21/18 08:13 [facility] (Rec: 02/21/18 08:34 [facility] [id number]) Hot Pack/Cold Pack Treatment Hot Pack Location c/s Patient Position Hooklying Treatment Duration (minutes) 15 Patient Tolerance Fair Comments during manual treatment Iontophoresis Treatment Right Shoulder Treatment Medication Dexamethasone (-) Medication Amount (mL) (ml) 4 Patient Tolerance Good Ultrasound Therapy Treatment Left Shoulder Treatment Duration (minutes) 8 Patient Position Supine Coupling Medium Ultrasound Gel Frequency Setting (mHz) 1 Mode Setting Continuous Intensity Setting (w/cm2) 1.2 Patient Tolerance Good PT-OP-T Assessment and Plan Start: 02/05/18 08:08 Freq: Status: Active Protocol: Document 02/21/18 08:13 [facility] (Rec: 02/21/18 08:34 [facility] [id number]) Physical Therapy Assessment Assessment Summary Assessment Pain persists, patient having shoulder ultrasound next week in [place], and follow-up with Dr. Dietrich March 11. Physical Therapy Plan Frequency and Duration Frequency of Treatment 2x/Week Duration of Treatment 12 wks Plan of Care Start Date 02/05/18 Plan of Care End Date 04/30/18 Therapeutic Interventions Therapeutic Interventions Home Exercise Program Manual Therapy Patient/Caregiver Education Self-Care/Home Management Taping Therapeutic Activities Therapeutic Exercises Modalities Electric Stimulation Hot Packs Infrared Therapy Iontophoresis Ultrasound Next Visit Focus/Plan Next Note Type Treatment Note Next Visit Plan Continue PT per POC. Patient to resume cardiac rehab as tolerated. Please Sign and Return: I have reviewed this Plan of Care and certify that the skilled therapy services above are required to meet the patient???s needs. Physician Signature Date Printed Name and Credentials Clinical Instructor Signature Printed Name and Credentials
--- NOTE | 2018-04-01 11:04 | PT.OTN ---
Current Diagnoses Pain in right shoulder (04/01/18) Physical Therapy Treatment Note PT-OP-A Visit Information Start: 02/05/18 08:08 Freq: Status: Active Protocol: Document 04/01/18 09:06 [facility] (Rec: 04/01/18 11:04 [facility] [id number]) Out-Patient Physical Therapy Visit Information Visit Information Visit Type Treatment Note Visit Start Time 09:07 Visit Stop Time 10:00 Total Visit Minutes 53 Visit Number 5 PT-OP-B Current Condition Start: 02/05/18 08:08 Freq: Status: Active Protocol: Document 02/08/18 12:58 [facility] (Rec: 02/08/18 13:39 [facility] [id number]) Current Condition Personal Factors Other Personal Factors That May Effect Shooting pains even with just Therapy/Recovery sitting still. PT-OP-C Subjective Start: 02/05/18 08:08 Freq: Status: Active Protocol: Document 04/01/18 09:06 [facility] (Rec: 04/01/18 09:46 [facility] [id number]) OP-PT Subjective Patient Comments Patient Comments Pain persists at high level though not as much at rest and can do more physically but still at high pain level. Also c/o recent onset of neck pain possibly due to guarding of shoulder. 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 PT-OP-E Functional Tests Start: 02/05/18 08:08 Freq: Status: Active Protocol: Document 02/05/18 09:06 [facility] (Rec: 02/05/18 09:16 [facility] [id number]) Functional Tests Apley's Scratch Test Action 1: The subject is instructed to touch the opposite shoulder with his/her hand. This motion checks Glenohumeral adduction, internal rotation , horizontal adduction and scapular protraction Action 2: The subject is instructed to place his/her arm overhead and reach behind the neck to touch his/her upper back. This motion checks Glenohumeral abduction, external rotation and scapular upward rotation and elevation. Action 3: The subject puts his/her hand on the lower back and reaches upward as far as possible. This motion checks glenohumeral adduction, internal rotation and scapular retraction with downward rotation Action 1- Left posterior shoulder Action 1- Right anterior shoulder Action 2- Left T2 Action 2- Right C2 Action 3- Left T7 Action 3- Right T12 PT-OP-F Manual Assessment Start: 02/05/18 08:08 Freq: Status: Active Protocol: Document 02/05/18 09:16 [facility] (Rec: 02/05/18 09:24 [facility] [id number]) Manual Assessments Soft Tissue Assessment Soft Tissue Mobility Assessment Moderate palpable tightness bilateral UT and levator scap right greater than left PT-OP-J Posture/Palpation/Skin Start: 02/05/18 08:08 Freq: Status: Active Protocol: Document 02/05/18 09:16 [facility] (Rec: 02/05/18 09:24 [facility] [id number]) Posture Evaluation Position Sitting Head/C-Spine Posture Forward Head T-Spine Posture Increased Kyphosis Shoulder Posture (L) Rounded (R) Rounded Scapula Posture (L) Protracted (R) Protracted Arm Posture (R) Internally Rotated PT-OP-K Range of Motion Start: 02/05/18 08:08 Freq: Status: Active Protocol: Document 02/05/18 09:16 [facility] (Rec: 02/05/18 09:24 [facility] [id number]) Cervical Spine Range of Motion Cervical Spine Active Testing Position Sitting Flexion 50 Extension 30 Rotation Left 40 Rotation Right 40 Lateral Flexion Left 20 Lateral Flexion Right 20 ROM Limitations Pain Shoulder Goniometric Range of Motion Shoulder Measured in Degrees Right Shoulder ROM WFL No Testing Position Sitting Flexion 140 Extension 15 Abduction 120 Horizontal Abduction 95 Horizontal Adduction 20 External Rotation at 45 degrees 25 Abduction Left Shoulder ROM WFL Yes Testing Position Sitting Flexion 165 Extension 20 Abduction 150 Horizontal Abduction 170 Horizontal Adduction 45 External Rotation at 45 degrees 75 Abduction Shoulder ROM Limitations Shoulder ROM Limitations Pain Comments moderate to severe pain per patient PT-OP-L Special Tests Start: 02/05/18 08:08 Freq: Status: Active Protocol: Document 02/05/18 09:16 [facility] (Rec: 02/05/18 09:24 [facility] [id number]) Special Tests Shoulder Special Tests Passive ER Rotator Cuff Test Results positive right IR/Horizontal ADD Impingement Test Results positive right Drop Arm Rotator Cuff Test Results positive right PT-OP-M Strength Start: 02/05/18 08:08 Freq: Status: Active Protocol: Document 02/05/18 09:24 [facility] (Rec: 02/05/18 09:36 [facility] [id number]) Cervical Spine Strength Cervical Spine Manual Muscle Testing Comments Not tested due to pain Shoulder Strength Shoulder Manual Muscle Testing Right Reason Not Measured Pain Left Reason Not Measured WFL PT-OP-Q Treatments Start: 02/05/18 08:08 Freq: Status: Active Protocol: Document 04/01/18 09:06 [facility] (Rec: 04/01/18 11:04 [facility] [id number]) Therapeutic Exercises Supine Exercises 3 Supine Exercise Name c/s rotation Reps/Minutes 5 2 Supine Exercise Name shoulder IR/ER AAROM Sitting Exercises 2 Sitting Exercise Name shoulder shrug and scap squeeze Reps/Minutes 5 1 Sitting Exercise Name pulleys shoulder flex, scaption Reps/Minutes 10x Standing Exercises 2 Standing Exercise Name row, shoulder ext, ER Equipment Used L1 theraband Self-Care/Home Management Treatment Education Patient Education Home Exercise Program Pain Management Other Education Use of heat on shoulder and neck, add supine neck ROM PT-OP-R Modalities Start: 02/05/18 08:08 Freq: Status: Active Protocol: Document 04/01/18 09:06 [facility] (Rec: 04/01/18 11:04 [facility] [id number]) Hot Pack/Cold Pack Treatment Hot Pack Location c/s and shoulder Patient Position Hooklying Treatment Duration (minutes) 15 Patient Tolerance Fair Comments during manual treatment PT-OP-T Assessment and Plan Start: 02/05/18 08:08 Freq: Status: Active Protocol: Document 04/01/18 09:06 [facility] (Rec: 04/01/18 11:04 [facility] [id number]) Physical Therapy Assessment Rehab Potential Rehabilitation Potential Good Impairments Impairments Functional Activities Pain Posture ROM Soft Tissue Mobility Goals Three Impairment Pain Short Term Goal (STG) Decrease pain by 50% STG Duration 6 wks LTG Duration 12 wks Two Impairment funcion: UE quickdash score 70 % Short Term Goal (STG) Decrease score to 50 STG Duration 6 wks Cpc Goal (LTG) Decrease score to 20 LTG Duration 12 wks One Impairment unable to reach overhead, out to side, or behind her back d/ t pain Short Term Goal (STG) Patient will be able to resume 50% of her normal activities using right UE STG Duration 6 wks Cpc Goal (LTG) Patient will be able to return to all prior daily activities using right UE with minimal to no pain LTG Duration 12 wks Progress Towards Goals Progress Comments improved activity tolerance and less pain at rest. Patient considering Cortisone shot Assessment Summary Assessment ultrasound showed no tear per patient. High pain level persists and neck hurting as well likely due to muscle guarding Physical Therapy Plan Frequency and Duration Frequency of Treatment 2x/Week Duration of Treatment 12 wks Plan of Care Start Date 02/05/18 Plan of Care End Date 04/30/18 Therapeutic Interventions Therapeutic Interventions Home Exercise Program Manual Therapy Patient/Caregiver Education Self-Care/Home Management Taping Therapeutic Activities Therapeutic Exercises Modalities Electric Stimulation Hot Packs Infrared Therapy Iontophoresis Ultrasound Next Visit Focus/Plan Next Note Type Treatment Note Next Visit Plan kinesiotape and iontophoresis
--- NOTE | 2018-04-05 15:45 | PT.OTN ---
Current Diagnoses Pain in right shoulder (04/04/18) Physical Therapy Treatment Note PT-OP-A Visit Information Start: 02/05/18 08:08 Freq: Status: Active Protocol: Document 04/01/18 09:06 [facility] (Rec: 04/01/18 11:04 [facility] [id number]) Out-Patient Physical Therapy Visit Information Visit Information Visit Type Treatment Note Visit Start Time 09:07 Visit Stop Time 10:00 Total Visit Minutes 53 Visit Number 5 PT-OP-B Current Condition Start: 02/05/18 08:08 Freq: Status: Active Protocol: Document 02/08/18 12:58 [facility] (Rec: 02/08/18 13:39 [facility] [id number]) Current Condition Personal Factors Other Personal Factors That May Effect Shooting pains even with just Therapy/Recovery sitting still. PT-OP-C Subjective Start: 02/05/18 08:08 Freq: Status: Active Protocol: Document 04/04/18 09:00 [facility] (Rec: 04/05/18 15:38 [facility] [id number]) OP-PT Subjective Patient Comments Patient Comments It still hurts so bad, though usually not at rest and can reach slightly further overhead. PT-OP-E Functional Tests Start: 02/05/18 08:08 Freq: Status: Active Protocol: Document 02/05/18 09:06 [facility] (Rec: 02/05/18 09:16 [facility] [id number]) Functional Tests Apley's Scratch Test Action 1: The subject is instructed to touch the opposite shoulder with his/her hand. This motion checks Glenohumeral adduction, internal rotation , horizontal adduction and scapular protraction Action 2: The subject is instructed to place his/her arm overhead and reach behind the neck to touch his/her upper back. This motion checks Glenohumeral abduction, external rotation and scapular upward rotation and elevation. Action 3: The subject puts his/her hand on the lower back and reaches upward as far as possible. This motion checks glenohumeral adduction, internal rotation and scapular retraction with downward rotation Action 1- Left posterior shoulder Action 1- Right anterior shoulder Action 2- Left T2 Action 2- Right C2 Action 3- Left T7 Action 3- Right T12 PT-OP-F Manual Assessment Start: 02/05/18 08:08 Freq: Status: Active Protocol: Document 02/05/18 09:16 [facility] (Rec: 02/05/18 09:24 [facility] [id number]) Manual Assessments Soft Tissue Assessment Soft Tissue Mobility Assessment Moderate palpable tightness bilateral UT and levator scap right greater than left PT-OP-J Posture/Palpation/Skin Start: 02/05/18 08:08 Freq: Status: Active Protocol: Document 02/05/18 09:16 [facility] (Rec: 02/05/18 09:24 [facility] [id number]) Posture Evaluation Position Sitting Head/C-Spine Posture Forward Head T-Spine Posture Increased Kyphosis Shoulder Posture (L) Rounded (R) Rounded Scapula Posture (L) Protracted (R) Protracted Arm Posture (R) Internally Rotated PT-OP-K Range of Motion Start: 02/05/18 08:08 Freq: Status: Active Protocol: Document 02/05/18 09:16 [facility] (Rec: 02/05/18 09:24 [facility] [id number]) Cervical Spine Range of Motion Cervical Spine Active Testing Position Sitting Flexion 50 Extension 30 Rotation Left 40 Rotation Right 40 Lateral Flexion Left 20 Lateral Flexion Right 20 ROM Limitations Pain Shoulder Goniometric Range of Motion Shoulder Measured in Degrees Right Shoulder ROM WFL No Testing Position Sitting Flexion 140 Extension 15 Abduction 120 Horizontal Abduction 95 Horizontal Adduction 20 External Rotation at 45 degrees 25 Abduction Left Shoulder ROM WFL Yes Testing Position Sitting Flexion 165 Extension 20 Abduction 150 Horizontal Abduction 170 Horizontal Adduction 45 External Rotation at 45 degrees 75 Abduction Shoulder ROM Limitations Shoulder ROM Limitations Pain Comments moderate to severe pain per patient PT-OP-L Special Tests Start: 02/05/18 08:08 Freq: Status: Active Protocol: Document 02/05/18 09:16 [facility] (Rec: 02/05/18 09:24 [facility] [id number]) Special Tests Shoulder Special Tests Passive ER Rotator Cuff Test Results positive right IR/Horizontal ADD Impingement Test Results positive right Drop Arm Rotator Cuff Test Results positive right PT-OP-M Strength Start: 02/05/18 08:08 Freq: Status: Active Protocol: Document 02/05/18 09:24 [facility] (Rec: 02/05/18 09:36 [facility] [id number]) Cervical Spine Strength Cervical Spine Manual Muscle Testing Comments Not tested due to pain Shoulder Strength Shoulder Manual Muscle Testing Right Reason Not Measured Pain Left Reason Not Measured WFL PT-OP-Q Treatments Start: 02/05/18 08:08 Freq: Status: Active Protocol: Document 04/04/18 09:00 [facility] (Rec: 04/05/18 15:45 [facility] [id number]) Therapeutic Exercises Supine Exercises 4 Supine Exercise Name chest press and shld flex with wand Comments cues for ex in pain-free ROM 2 Supine Exercise Name shoulder IR/ER AAROM Sitting Exercises 2 Sitting Exercise Name shoulder shrug and scap squeeze Reps/Minutes 5 Comments verbal and manual cues Standing Exercises 2 Standing Exercise Name row, shoulder ext, ER Equipment Used L1 theraband Comments verbal and manual cues for scapular stabiization Manual Therapy Treatment Soft Tissue Mobilization 1 Body Location left UT, c/s, deltoid, biceps, rhomboids Mobilization Type Strumming Intensity/Depth Moderate Body Position hooklying Self-Care/Home Management Treatment Education Patient Education Home Exercise Program Pain Management PT-OP-R Modalities Start: 02/05/18 08:08 Freq: Status: Active Protocol: Document 04/04/18 09:00 [facility] (Rec: 04/05/18 15:45 [facility] [id number]) Hot Pack/Cold Pack Treatment Hot Pack Location c/s and shoulder Patient Position Hooklying Treatment Duration (minutes) 15 Patient Tolerance Good Iontophoresis Treatment Right Shoulder Treatment Medication Dexamethasone (-) Medication Amount (mL) (ml) 4 Patient Tolerance Good Ultrasound Therapy Treatment Left Shoulder Treatment Duration (minutes) 8 Patient Position Supine Coupling Medium Ultrasound Gel Frequency Setting (mHz) 1 Mode Setting Continuous Intensity Setting (w/cm2) 1.2 PT-OP-T Assessment and Plan Start: 02/05/18 08:08 Freq: Status: Active Protocol: Document 04/04/18 09:00 [facility] (Rec: 04/05/18 15:45 [facility] [id number]) Physical Therapy Assessment Impairments Impairments Functional Activities Pain Posture ROM Soft Tissue Mobility Goals Three Impairment Pain Short Term Goal (STG) Decrease pain by 50% STG Duration 6 wks LTG Duration 12 wks Two Impairment funcion: UE quickdash score 70 % Short Term Goal (STG) Decrease score to 50 STG Duration 6 wks Correction Goal (LTG) Decrease score to 20 LTG Duration 12 wks One Impairment unable to reach overhead, out to side, or behind her back d/ t pain Short Term Goal (STG) Patient will be able to resume 50% of her normal activities using right UE STG Duration 6 wks Correction Goal (LTG) Patient will be able to return to all prior daily activities using right UE with minimal to no pain LTG Duration 12 wks Progress Towards Goals Progress Comments improvement in shoulder flex, high pain level persists though not at rest. Assessment Summary Assessment Needs frequent verbal and manual cues to inhibit upper traps due to overactivation causing impingement in GH joint. Better ability today. Physical Therapy Plan Frequency and Duration Frequency of Treatment 2x/Week Duration of Treatment 12 wks Plan of Care Start Date 02/05/18 Plan of Care End Date 04/30/18 Therapeutic Interventions Therapeutic Interventions Home Exercise Program Manual Therapy Patient/Caregiver Education Self-Care/Home Management Taping Therapeutic Activities Therapeutic Exercises Modalities Electric Stimulation Hot Packs Infrared Therapy Iontophoresis Ultrasound Next Visit Focus/Plan Next Note Type Treatment Note Next Visit Plan Progress ther ex as tolerated with emphasis on correct alignment and form.
--- NOTE | 2018-04-08 16:21 | PT.OTN ---
Current Diagnoses Pain in right shoulder (04/08/18) Physical Therapy Treatment Note PT-OP-A Visit Information Start: 02/05/18 08:08 Freq: Status: Active Protocol: Document 04/08/18 09:02 [facility] (Rec: 04/08/18 09:12 [facility] [id number]) Out-Patient Physical Therapy Visit Information Visit Information Visit Type Treatment Note Visit Start Time 09:02 Visit Stop Time 09:57 Total Visit Minutes 55 Visit Number 6 Number of LATHMAKER Visits 0 PT-OP-B Current Condition Start: 02/05/18 08:08 Freq: Status: Active Protocol: Document 02/08/18 12:58 [facility] (Rec: 02/08/18 13:39 [facility] [id number]) Current Condition Personal Factors Other Personal Factors That May Effect Shooting pains even with just Therapy/Recovery sitting still. PT-OP-C Subjective Start: 02/05/18 08:08 Freq: Status: Active Protocol: Document 04/08/18 09:02 [facility] (Rec: 04/08/18 09:12 [facility] [id number]) OP-PT Subjective Patient Comments Patient Comments Had stopped doing exercises because started pushing through the pain to do daily activities and felt that that was enough. Wants help to review exercises and make sure she is doing them correctly as after discussion with PT last session realizes she needs to do them. PT-OP-E Functional Tests Start: 02/05/18 08:08 Freq: Status: Active Protocol: Document 02/05/18 09:06 [facility] (Rec: 02/05/18 09:16 [facility] [id number]) Functional Tests Apley's Scratch Test Action 1: The subject is instructed to touch the opposite shoulder with his/her hand. This motion checks Glenohumeral adduction, internal rotation , horizontal adduction and scapular protraction Action 2: The subject is instructed to place his/her arm overhead and reach behind the neck to touch his/her upper back. This motion checks Glenohumeral abduction, external rotation and scapular upward rotation and elevation. Action 3: The subject puts his/her hand on the lower back and reaches upward as far as possible. This motion checks glenohumeral adduction, internal rotation and scapular retraction with downward rotation Action 1- Left posterior shoulder Action 1- Right anterior shoulder Action 2- Left T2 Action 2- Right C2 Action 3- Left T7 Action 3- Right T12 PT-OP-F Manual Assessment Start: 02/05/18 08:08 Freq: Status: Active Protocol: Document 02/05/18 09:16 [facility] (Rec: 02/05/18 09:24 [facility] [id number]) Manual Assessments Soft Tissue Assessment Soft Tissue Mobility Assessment Moderate palpable tightness bilateral UT and levator scap right greater than left PT-OP-J Posture/Palpation/Skin Start: 02/05/18 08:08 Freq: Status: Active Protocol: Document 02/05/18 09:16 [facility] (Rec: 02/05/18 09:24 [facility] [id number]) Posture Evaluation Position Sitting Head/C-Spine Posture Forward Head T-Spine Posture Increased Kyphosis Shoulder Posture (L) Rounded (R) Rounded Scapula Posture (L) Protracted (R) Protracted Arm Posture (R) Internally Rotated PT-OP-K Range of Motion Start: 02/05/18 08:08 Freq: Status: Active Protocol: Document 02/05/18 09:16 [facility] (Rec: 02/05/18 09:24 [facility] [id number]) Cervical Spine Range of Motion Cervical Spine Active Testing Position Sitting Flexion 50 Extension 30 Rotation Left 40 Rotation Right 40 Lateral Flexion Left 20 Lateral Flexion Right 20 ROM Limitations Pain Shoulder Goniometric Range of Motion Shoulder Measured in Degrees Right Shoulder ROM WFL No Testing Position Sitting Flexion 140 Extension 15 Abduction 120 Horizontal Abduction 95 Horizontal Adduction 20 External Rotation at 45 degrees 25 Abduction Left Shoulder ROM WFL Yes Testing Position Sitting Flexion 165 Extension 20 Abduction 150 Horizontal Abduction 170 Horizontal Adduction 45 External Rotation at 45 degrees 75 Abduction Shoulder ROM Limitations Shoulder ROM Limitations Pain Comments moderate to severe pain per patient PT-OP-L Special Tests Start: 02/05/18 08:08 Freq: Status: Active Protocol: Document 02/05/18 09:16 [facility] (Rec: 02/05/18 09:24 [facility] [id number]) Special Tests Shoulder Special Tests Passive ER Rotator Cuff Test Results positive right IR/Horizontal ADD Impingement Test Results positive right Drop Arm Rotator Cuff Test Results positive right PT-OP-M Strength Start: 02/05/18 08:08 Freq: Status: Active Protocol: Document 02/05/18 09:24 [facility] (Rec: 02/05/18 09:36 [facility] [id number]) Cervical Spine Strength Cervical Spine Manual Muscle Testing Comments Not tested due to pain Shoulder Strength Shoulder Manual Muscle Testing Right Reason Not Measured Pain Left Reason Not Measured WFL PT-OP-Q Treatments Start: 02/05/18 08:08 Freq: Status: Active Protocol: Document 04/08/18 09:02 [facility] (Rec: 04/08/18 16:21 [facility] [id number]) Cardio Equipment Recumbent Elliptical (Biodex) Duration (Minutes) 5 Resistance 1 Therapeutic Exercises Supine Exercises 4 Supine Exercise Name chest press and shld flex with wand Comments cues for ex in pain-free ROM 2 Supine Exercise Name shoulder IR/ER AAROM Sitting Exercises 1 Sitting Exercise Name pulleys shoulder flex, scaption Reps/Minutes 10x Standing Exercises 2 Standing Exercise Name row, shoulder ext, ER Equipment Used L1 theraband Comments verbal and manual cues for scapular stabiization Manual Therapy Treatment Soft Tissue Mobilization 1 Body Location left UT, c/s, deltoid, biceps, rhomboids Mobilization Type Strumming Intensity/Depth Moderate Body Position hooklying Self-Care/Home Management Treatment Education Patient Education Home Exercise Program Pain Management Other Education review HEP, issued updated handout and level 1 theraband PT-OP-R Modalities Start: 02/05/18 08:08 Freq: Status: Active Protocol: Document 04/08/18 09:02 [facility] (Rec: 04/08/18 16:21 [facility] [id number]) Hot Pack/Cold Pack Treatment Hot Pack Location c/s and shoulder Patient Position Hooklying Treatment Duration (minutes) 15 Patient Tolerance Good Iontophoresis Comment Treatment Comment not done, time constraints Ultrasound Therapy Treatment Left Shoulder Treatment Duration (minutes) 8 Patient Position Supine Coupling Medium Ultrasound Gel Frequency Setting (mHz) 1 Mode Setting Continuous Intensity Setting (w/cm2) 1.2 PT-OP-T Assessment and Plan Start: 02/05/18 08:08 Freq: Status: Active Protocol: Document 04/08/18 09:02 [facility] (Rec: 04/08/18 16:21 [facility] [id number]) Physical Therapy Assessment Impairments Impairments Functional Activities Pain Posture ROM Soft Tissue Mobility Goals Three Impairment Pain Short Term Goal (STG) Decrease pain by 50% STG Duration 6 wks LTG Duration 12 wks Two Impairment funcion: UE quickdash score 70 % Short Term Goal (STG) Decrease score to 50 STG Duration 6 wks [employer] Goal (LTG) Decrease score to 20 LTG Duration 12 wks One Impairment unable to reach overhead, out to side, or behind her back d/ t pain Short Term Goal (STG) Patient will be able to resume 50% of her normal activities using right UE STG Duration 6 wks [employer] Goal (LTG) Patient will be able to return to all prior daily activities using right UE with minimal to no pain LTG Duration 12 wks Progress Towards Goals Progress Towards Goals Slow Progress - Other Assessment Summary Assessment Better exercise tolerance, demonstrated good understanding of HEP after review and corrections Physical Therapy Plan Frequency and Duration Frequency of Treatment 2x/Week Duration of Treatment 12 wks Plan of Care Start Date 02/05/18 Plan of Care End Date 04/30/18 Therapeutic Interventions Therapeutic Interventions Home Exercise Program Manual Therapy Patient/Caregiver Education Self-Care/Home Management Taping Therapeutic Activities Therapeutic Exercises Modalities Electric Stimulation Hot Packs Infrared Therapy Iontophoresis Ultrasound Next Visit Focus/Plan Next Note Type Treatment Note Next Visit Plan Progress ther ex as tolerated with emphasis on correct alignment and form. reassess first rib, SC and AC joints.
--- NOTE | 2018-04-16 13:18 | PT.OTN ---
Current Diagnoses Pain in right shoulder (04/16/18) Physical Therapy Treatment Note PT-OP-A Visit Information Start: 02/05/18 08:08 Freq: Status: Active Protocol: Document 04/08/18 09:02 [facility] (Rec: 04/08/18 09:12 [facility] [id number]) Out-Patient Physical Therapy Visit Information Visit Information Visit Type Treatment Note Visit Start Time 09:02 Visit Stop Time 09:57 Total Visit Minutes 55 Visit Number 6 Number of POPULATION HEALTH COACH Visits 0 PT-OP-B Current Condition Start: 02/05/18 08:08 Freq: Status: Active Protocol: Document 02/08/18 12:58 [facility] (Rec: 02/08/18 13:39 [facility] [id number]) Current Condition Personal Factors Other Personal Factors That May Effect Shooting pains even with just Therapy/Recovery sitting still. PT-OP-C Subjective Start: 02/05/18 08:08 Freq: Status: Active Protocol: Document 04/16/18 09:01 [facility] (Rec: 04/16/18 09:42 [facility] [id number]) OP-PT Subjective Patient Comments Patient Comments Has had changes in medication, states doctor concerned about edema in her legs. Next appointment in 2 weeks. [place] better for 2 days after last session. Most painful to reach behind back, but states being more aware of her shoulder blades, and trying to move more correctly as instructed. PT-OP-E Functional Tests Start: 02/05/18 08:08 Freq: Status: Active Protocol: Document 02/05/18 09:06 [facility] (Rec: 02/05/18 09:16 [facility] [id number]) Functional Tests Apley's Scratch Test Action 1: The subject is instructed to touch the opposite shoulder with his/her hand. This motion checks Glenohumeral adduction, internal rotation , horizontal adduction and scapular protraction Action 2: The subject is instructed to place his/her arm overhead and reach behind the neck to touch his/her upper back. This motion checks Glenohumeral abduction, external rotation and scapular upward rotation and elevation. Action 3: The subject puts his/her hand on the lower back and reaches upward as far as possible. This motion checks glenohumeral adduction, internal rotation and scapular retraction with downward rotation Action 1- Left posterior shoulder Action 1- Right anterior shoulder Action 2- Left T2 Action 2- Right C2 Action 3- Left T7 Action 3- Right T12 PT-OP-F Manual Assessment Start: 02/05/18 08:08 Freq: Status: Active Protocol: Document 02/05/18 09:16 [facility] (Rec: 02/05/18 09:24 [facility] [id number]) Manual Assessments Soft Tissue Assessment Soft Tissue Mobility Assessment Moderate palpable tightness bilateral UT and levator scap right greater than left PT-OP-J Posture/Palpation/Skin Start: 02/05/18 08:08 Freq: Status: Active Protocol: Document 02/05/18 09:16 [facility] (Rec: 02/05/18 09:24 [facility] [id number]) Posture Evaluation Position Sitting Head/C-Spine Posture Forward Head T-Spine Posture Increased Kyphosis Shoulder Posture (L) Rounded (R) Rounded Scapula Posture (L) Protracted (R) Protracted Arm Posture (R) Internally Rotated PT-OP-K Range of Motion Start: 02/05/18 08:08 Freq: Status: Active Protocol: Document 02/05/18 09:16 [facility] (Rec: 02/05/18 09:24 [facility] [id number]) Cervical Spine Range of Motion Cervical Spine Active Testing Position Sitting Flexion 50 Extension 30 Rotation Left 40 Rotation Right 40 Lateral Flexion Left 20 Lateral Flexion Right 20 ROM Limitations Pain Shoulder Goniometric Range of Motion Shoulder Measured in Degrees Right Shoulder ROM WFL No Testing Position Sitting Flexion 140 Extension 15 Abduction 120 Horizontal Abduction 95 Horizontal Adduction 20 External Rotation at 45 degrees 25 Abduction Left Shoulder ROM WFL Yes Testing Position Sitting Flexion 165 Extension 20 Abduction 150 Horizontal Abduction 170 Horizontal Adduction 45 External Rotation at 45 degrees 75 Abduction Shoulder ROM Limitations Shoulder ROM Limitations Pain Comments moderate to severe pain per patient PT-OP-L Special Tests Start: 02/05/18 08:08 Freq: Status: Active Protocol: Document 02/05/18 09:16 [facility] (Rec: 02/05/18 09:24 [facility] [id number]) Special Tests Shoulder Special Tests Passive ER Rotator Cuff Test Results positive right IR/Horizontal ADD Impingement Test Results positive right Drop Arm Rotator Cuff Test Results positive right PT-OP-M Strength Start: 02/05/18 08:08 Freq: Status: Active Protocol: Document 02/05/18 09:24 [facility] (Rec: 02/05/18 09:36 [facility] [id number]) Cervical Spine Strength Cervical Spine Manual Muscle Testing Comments Not tested due to pain Shoulder Strength Shoulder Manual Muscle Testing Right Reason Not Measured Pain Left Reason Not Measured WFL PT-OP-Q Treatments Start: 02/05/18 08:08 Freq: Status: Active Protocol: Document 04/16/18 09:01 [facility] (Rec: 04/16/18 13:18 [facility] [id number]) Cardio Equipment Recumbent Stepper (Sci-Fit) Duration (Minutes) 10 Resistance 1 Therapeutic Exercises Supine Exercises 4 Supine Exercise Name chest press and shld flex with wand Comments cues for ex in pain-free ROM 2 Supine Exercise Name shoulder IR/ER AAROM Sitting Exercises 1 Sitting Exercise Name pulleys shoulder flex, scaption Reps/Minutes 10x Standing Exercises 2 Standing Exercise Name row, shoulder ext, ER Equipment Used L1 theraband Comments verbal and manual cues for scapular stabiization Manual Therapy Treatment Soft Tissue Mobilization 1 Body Location left UT, c/s, deltoid, biceps, rhomboids Mobilization Type Strumming Intensity/Depth Moderate Body Position hooklying PT-OP-R Modalities Start: 02/05/18 08:08 Freq: Status: Active Protocol: Document 04/16/18 09:01 [facility] (Rec: 04/16/18 13:18 [facility] [id number]) Electric Stimulation Electric Stimulation Interferential Current (IFC) Body Location right shoulder Duration (Minutes) 15 Patient Position Hooklying Combined With Heat/Cold Hot Pack Ultrasound Therapy Treatment Right Shoulder Treatment Duration (minutes) 8 Patient Position Supine Coupling Medium Ultrasound Gel Frequency Setting (mHz) 1 Mode Setting Continuous Intensity Setting (w/cm2) 1.2 Left Shoulder Treatment Duration (minutes) 8 Patient Position Supine Coupling Medium Ultrasound Gel Frequency Setting (mHz) 1 Mode Setting Continuous Intensity Setting (w/cm2) 1.2 PT-OP-T Assessment and Plan Start: 02/05/18 08:08 Freq: Status: Active Protocol: Document 04/16/18 09:01 [facility] (Rec: 04/16/18 13:18 [facility] [id number]) Physical Therapy Assessment Impairments Impairments Functional Activities Pain Posture ROM Soft Tissue Mobility Goals Three Impairment Pain Short Term Goal (STG) Decrease pain by 50% STG Duration 6 wks LTG Duration 12 wks Two Impairment funcion: UE quickdash score 70 % Short Term Goal (STG) Decrease score to 50 STG Duration 6 wks Perch Machine Inspector Goal (LTG) Decrease score to 20 LTG Duration 12 wks One Impairment unable to reach overhead, out to side, or behind her back d/ t pain Short Term Goal (STG) Patient will be able to resume 50% of her normal activities using right UE STG Duration 6 wks Alf Goal (LTG) Patient will be able to return to all prior daily activities using right UE with minimal to no pain LTG Duration 12 wks Progress Towards Goals Progress Towards Goals Progressing Toward Goals Slow Progress due to Medical Issues Assessment Summary Assessment Good pain relief for a few days after last session. Physical Therapy Plan Frequency and Duration Frequency of Treatment 2x/Week Duration of Treatment 12 wks Plan of Care Start Date 02/05/18 Plan of Care End Date 04/30/18 Therapeutic Interventions Therapeutic Interventions Home Exercise Program Manual Therapy Patient/Caregiver Education Self-Care/Home Management Taping Therapeutic Activities Therapeutic Exercises Modalities Electric Stimulation Hot Packs Infrared Therapy Iontophoresis Ultrasound Next Visit Focus/Plan Next Note Type Treatment Note Next Visit Plan Progress ther ex as tolerated with emphasis on correct alignment and form. reassess first rib, SC and AC joints.
--- NOTE | 2018-04-22 16:11 | PT.OTN ---
Current Diagnoses Pain in right shoulder (04/22/18) Physical Therapy Treatment Note PT-OP-A Visit Information Start: 02/05/18 08:08 Freq: Status: Active Protocol: Document 04/08/18 09:02 [facility] (Rec: 04/08/18 09:12 [facility] [id number]) Out-Patient Physical Therapy Visit Information Visit Information Visit Type Treatment Note Visit Start Time 09:02 Visit Stop Time 09:57 Total Visit Minutes 55 Visit Number 6 Number of SUBSTATION MAINTENANCE TECHNICIAN Visits 0 PT-OP-B Current Condition Start: 02/05/18 08:08 Freq: Status: Active Protocol: Document 02/08/18 12:58 [facility] (Rec: 02/08/18 13:39 [facility] [id number]) Current Condition Personal Factors Other Personal Factors That May Effect Shooting pains even with just Therapy/Recovery sitting still. PT-OP-C Subjective Start: 02/05/18 08:08 Freq: Status: Active Protocol: Document 04/22/18 09:04 [facility] (Rec: 04/22/18 09:48 [facility] [id number]) OP-PT Subjective Patient Comments Patient Comments Shoulder got revved up over the weekend reaching for something. In discussing postural alignment patient reports i'm really bad at that. PT-OP-E Functional Tests Start: 02/05/18 08:08 Freq: Status: Active Protocol: Document 02/05/18 09:06 [facility] (Rec: 02/05/18 09:16 [facility] [id number]) Functional Tests Apley's Scratch Test Action 1: The subject is instructed to touch the opposite shoulder with his/her hand. This motion checks Glenohumeral adduction, internal rotation , horizontal adduction and scapular protraction Action 2: The subject is instructed to place his/her arm overhead and reach behind the neck to touch his/her upper back. This motion checks Glenohumeral abduction, external rotation and scapular upward rotation and elevation. Action 3: The subject puts his/her hand on the lower back and reaches upward as far as possible. This motion checks glenohumeral adduction, internal rotation and scapular retraction with downward rotation Action 1- Left posterior shoulder Action 1- Right anterior shoulder Action 2- Left T2 Action 2- Right C2 Action 3- Left T7 Action 3- Right T12 PT-OP-F Manual Assessment Start: 02/05/18 08:08 Freq: Status: Active Protocol: Document 02/05/18 09:16 [facility] (Rec: 02/05/18 09:24 [facility] [id number]) Manual Assessments Soft Tissue Assessment Soft Tissue Mobility Assessment Moderate palpable tightness bilateral UT and levator scap right greater than left PT-OP-J Posture/Palpation/Skin Start: 02/05/18 08:08 Freq: Status: Active Protocol: Document 02/05/18 09:16 [facility] (Rec: 02/05/18 09:24 [facility] [id number]) Posture Evaluation Position Sitting Head/C-Spine Posture Forward Head T-Spine Posture Increased Kyphosis Shoulder Posture (L) Rounded (R) Rounded Scapula Posture (L) Protracted (R) Protracted Arm Posture (R) Internally Rotated PT-OP-K Range of Motion Start: 02/05/18 08:08 Freq: Status: Active Protocol: Document 02/05/18 09:16 [facility] (Rec: 02/05/18 09:24 [facility] [id number]) Cervical Spine Range of Motion Cervical Spine Active Testing Position Sitting Flexion 50 Extension 30 Rotation Left 40 Rotation Right 40 Lateral Flexion Left 20 Lateral Flexion Right 20 ROM Limitations Pain Shoulder Goniometric Range of Motion Shoulder Measured in Degrees Right Shoulder ROM WFL No Testing Position Sitting Flexion 140 Extension 15 Abduction 120 Horizontal Abduction 95 Horizontal Adduction 20 External Rotation at 45 degrees 25 Abduction Left Shoulder ROM WFL Yes Testing Position Sitting Flexion 165 Extension 20 Abduction 150 Horizontal Abduction 170 Horizontal Adduction 45 External Rotation at 45 degrees 75 Abduction Shoulder ROM Limitations Shoulder ROM Limitations Pain Comments moderate to severe pain per patient PT-OP-L Special Tests Start: 02/05/18 08:08 Freq: Status: Active Protocol: Document 02/05/18 09:16 [facility] (Rec: 02/05/18 09:24 [facility] [id number]) Special Tests Shoulder Special Tests Passive ER Rotator Cuff Test Results positive right IR/Horizontal ADD Impingement Test Results positive right Drop Arm Rotator Cuff Test Results positive right PT-OP-M Strength Start: 02/05/18 08:08 Freq: Status: Active Protocol: Document 02/05/18 09:24 [facility] (Rec: 02/05/18 09:36 [facility] [id number]) Cervical Spine Strength Cervical Spine Manual Muscle Testing Comments Not tested due to pain Shoulder Strength Shoulder Manual Muscle Testing Right Reason Not Measured Pain Left Reason Not Measured WFL PT-OP-Q Treatments Start: 02/05/18 08:08 Freq: Status: Active Protocol: Document 04/22/18 09:04 [facility] (Rec: 04/22/18 09:48 [facility] [id number]) Cardio Equipment Recumbent Stepper (Sci-Fit) Duration (Minutes) 10 Resistance 1 Therapeutic Exercises Supine Exercises 2 Supine Exercise Name shoulder IR/ER AAROM Sitting Exercises 4 Sitting Exercise Name cervical retraction Reps/Minutes 5x 1 Sitting Exercise Name pulleys shoulder flex, scaption Reps/Minutes 10x Standing Exercises 2 Standing Exercise Name row, shoulder ext, ER Equipment Used L1 theraband Comments verbal and manual cues for scapular stabiization Manual Therapy Treatment Soft Tissue Mobilization 2 Body Location left UT, bilateral c/s Mobilization Type Strumming Intensity/Depth Moderate Body Position Hooklying Manual Traction Cervical Details gentle cervical traction for muscle relaxation Body Position Hooklying Reps/Duration 3 min Self-Care/Home Management Treatment Education Patient Education Posture Other Education importance of cervical retraction for improved neck alignment which affects shoulder function as well. PT-OP-R Modalities Start: 02/05/18 08:08 Freq: Status: Active Protocol: Document 04/22/18 09:04 [facility] (Rec: 04/22/18 16:11 [facility] [id number]) Electric Stimulation Electric Stimulation Interferential Current (IFC) Body Location right c/s and shoulder Duration (Minutes) 15 Patient Position Hooklying Combined With Heat/Cold Hot Pack Hot Pack/Cold Pack Treatment Hot Pack Location c/s and shoulder Patient Position Hooklying Treatment Duration (minutes) 15 Patient Tolerance Good Iontophoresis Comment Treatment Comment not done, time constraints Ultrasound Therapy Treatment Right Shoulder Treatment Duration (minutes) 8 Patient Position Supine Coupling Medium Ultrasound Gel Frequency Setting (mHz) 1 Mode Setting Continuous Intensity Setting (w/cm2) 1.2 PT-OP-T Assessment and Plan Start: 02/05/18 08:08 Freq: Status: Active Protocol: Document 04/22/18 09:04 [facility] (Rec: 04/22/18 16:11 [facility] [id number]) Physical Therapy Assessment Progress Towards Goals Progress Comments Pain easily exacerbated. Increased emphasis today on cervical posture dysfunction ( mod forward head with dowagers hump) as contributor to shoulder as well as neck pain. Assessment Summary Assessment Patient concerned about her weight and has a referral to the [facility] clinic for a consultation. Physical Therapy Plan Frequency and Duration Frequency of Treatment 2x/Week Duration of Treatment 12 wks Plan of Care Start Date 02/05/18 Plan of Care End Date 04/30/18 Therapeutic Interventions Therapeutic Interventions Home Exercise Program Manual Therapy Patient/Caregiver Education Self-Care/Home Management Taping Therapeutic Activities Therapeutic Exercises Modalities Electric Stimulation Hot Packs Infrared Therapy Iontophoresis Ultrasound Next Visit Focus/Plan Next Note Type Re-Evaluation Next Visit Plan Continue PT, with progression of strengthening as tolerated. Further emphasis on alignment of kinetic chain, importance of HEP.
--- NOTE | 2018-04-28 13:55 | PT.OTN ---
Current Diagnoses Pain in right shoulder (04/25/18) Physical Therapy Treatment Note PT-OP-A Visit Information Start: 02/05/18 08:08 Freq: Status: Active Protocol: Document 04/08/18 09:02 [facility] (Rec: 04/08/18 09:12 [facility] [id number]) Out-Patient Physical Therapy Visit Information Visit Information Visit Type Treatment Note Visit Start Time 09:02 Visit Stop Time 09:57 Total Visit Minutes 55 Visit Number 6 Number of CYTOGENETICIST Visits 0 PT-OP-B Current Condition Start: 02/05/18 08:08 Freq: Status: Active Protocol: Document 02/08/18 12:58 [facility] (Rec: 02/08/18 13:39 [facility] [id number]) Current Condition Personal Factors Other Personal Factors That May Effect Shooting pains even with just Therapy/Recovery sitting still. PT-OP-C Subjective Start: 02/05/18 08:08 Freq: Status: Active Protocol: Document 04/25/18 09:00 [facility] (Rec: 04/25/18 09:48 [facility] [id number]) OP-PT Subjective Patient Comments Patient Comments c/o fatigue today, no change in pain. Other medical issues affecting energy level, activity tolerance. Seeing Dr Arianna Rivas at [facility] clinic next week. PT-OP-E Functional Tests Start: 02/05/18 08:08 Freq: Status: Active Protocol: Document 02/05/18 09:06 [facility] (Rec: 02/05/18 09:16 [facility] [id number]) Functional Tests Apley's Scratch Test Action 1: The subject is instructed to touch the opposite shoulder with his/her hand. This motion checks Glenohumeral adduction, internal rotation , horizontal adduction and scapular protraction Action 2: The subject is instructed to place his/her arm overhead and reach behind the neck to touch his/her upper back. This motion checks Glenohumeral abduction, external rotation and scapular upward rotation and elevation. Action 3: The subject puts his/her hand on the lower back and reaches upward as far as possible. This motion checks glenohumeral adduction, internal rotation and scapular retraction with downward rotation Action 1- Left posterior shoulder Action 1- Right anterior shoulder Action 2- Left T2 Action 2- Right C2 Action 3- Left T7 Action 3- Right T12 PT-OP-F Manual Assessment Start: 02/05/18 08:08 Freq: Status: Active Protocol: Document 02/05/18 09:16 [facility] (Rec: 02/05/18 09:24 [facility] [id number]) Manual Assessments Soft Tissue Assessment Soft Tissue Mobility Assessment Moderate palpable tightness bilateral UT and levator scap right greater than left PT-OP-J Posture/Palpation/Skin Start: 02/05/18 08:08 Freq: Status: Active Protocol: Document 02/05/18 09:16 [facility] (Rec: 02/05/18 09:24 [facility] [id number]) Posture Evaluation Position Sitting Head/C-Spine Posture Forward Head T-Spine Posture Increased Kyphosis Shoulder Posture (L) Rounded (R) Rounded Scapula Posture (L) Protracted (R) Protracted Arm Posture (R) Internally Rotated PT-OP-K Range of Motion Start: 02/05/18 08:08 Freq: Status: Active Protocol: Document 02/05/18 09:16 [facility] (Rec: 02/05/18 09:24 [facility] [id number]) Cervical Spine Range of Motion Cervical Spine Active Testing Position Sitting Flexion 50 Extension 30 Rotation Left 40 Rotation Right 40 Lateral Flexion Left 20 Lateral Flexion Right 20 ROM Limitations Pain Shoulder Goniometric Range of Motion Shoulder Measured in Degrees Right Shoulder ROM WFL No Testing Position Sitting Flexion 140 Extension 15 Abduction 120 Horizontal Abduction 95 Horizontal Adduction 20 External Rotation at 45 degrees 25 Abduction Left Shoulder ROM WFL Yes Testing Position Sitting Flexion 165 Extension 20 Abduction 150 Horizontal Abduction 170 Horizontal Adduction 45 External Rotation at 45 degrees 75 Abduction Shoulder ROM Limitations Shoulder ROM Limitations Pain Comments moderate to severe pain per patient PT-OP-L Special Tests Start: 02/05/18 08:08 Freq: Status: Active Protocol: Document 02/05/18 09:16 [facility] (Rec: 02/05/18 09:24 [facility] [id number]) Special Tests Shoulder Special Tests Passive ER Rotator Cuff Test Results positive right IR/Horizontal ADD Impingement Test Results positive right Drop Arm Rotator Cuff Test Results positive right PT-OP-M Strength Start: 02/05/18 08:08 Freq: Status: Active Protocol: Document 02/05/18 09:24 [facility] (Rec: 02/05/18 09:36 [facility] [id number]) Cervical Spine Strength Cervical Spine Manual Muscle Testing Comments Not tested due to pain Shoulder Strength Shoulder Manual Muscle Testing Right Reason Not Measured Pain Left Reason Not Measured WFL PT-OP-Q Treatments Start: 02/05/18 08:08 Freq: Status: Active Protocol: Document 04/25/18 09:00 [facility] (Rec: 04/25/18 09:48 [facility] [id number]) Cardio Equipment Recumbent Stepper (Sci-Fit) Duration (Minutes) 10 Resistance 1 Therapeutic Exercises Supine Exercises 4 Supine Exercise Name chest press and shld flex with wand Comments cues for ex in pain-free ROM 2 Supine Exercise Name shoulder IR/ER AAROM Sitting Exercises 4 Sitting Exercise Name cervical retraction Reps/Minutes 5x 1 Sitting Exercise Name pulleys shoulder flex, scaption Reps/Minutes 10x Standing Exercises 2 Standing Exercise Name row, shoulder ext, ER Equipment Used L1 theraband Comments verbal and manual cues for scapular stabiization Manual Therapy Treatment Soft Tissue Mobilization 2 Body Location left UT, bilateral c/s Mobilization Type Strumming Intensity/Depth Moderate Body Position Hooklying 1 Body Location left UT, c/s, deltoid, biceps, rhomboids Mobilization Type Strumming Intensity/Depth Moderate Body Position hooklying Manual Traction Cervical Details gentle cervical traction for muscle relaxation Body Position Hooklying Reps/Duration 3 min PT-OP-R Modalities Start: 02/05/18 08:08 Freq: Status: Active Protocol: Document 04/25/18 09:00 [facility] (Rec: 04/28/18 13:55 [facility] [id number]) Electric Stimulation Electric Stimulation Interferential Current (IFC) Body Location right c/s and shoulder Duration (Minutes) 15 Patient Position Hooklying Combined With Heat/Cold Hot Pack Ultrasound Therapy Treatment Right Shoulder Treatment Duration (minutes) 8 Patient Position Supine Coupling Medium Ultrasound Gel Frequency Setting (mHz) 1 Mode Setting Continuous Intensity Setting (w/cm2) 1.2 PT-OP-T Assessment and Plan Start: 02/05/18 08:08 Freq: Status: Active Protocol: Document 04/25/18 09:00 [facility] (Rec: 04/28/18 13:55 [facility] [id number]) Physical Therapy Assessment Impairments Impairments Functional Activities Pain Posture ROM Soft Tissue Mobility Goals Three Impairment Pain Short Term Goal (STG) Decrease pain by 50% (goal progress; not constant or as severe per patient) STG Duration 6 wks Jewel Stringer Goal (LTG) Pain decreased by 75% (goal progress) LTG Duration 12 wks Two Impairment funcion: UE quickdash score 70 % Short Term Goal (STG) Decrease score to 50 (goal progress; can now put on bra and do some reaching without severe pain) STG Duration 6 wks Mcc Goal (LTG) Decrease score to 20 (goal progress) LTG Duration 12 wks One Impairment unable to reach overhead, out to side, or behind her back d/ t pain Short Term Goal (STG) Patient will be able to resume 50% of her normal activities using right UE (goal progress as above) STG Duration 6 wks Mcc Goal (LTG) Patient will be able to return to all prior daily activities using right UE with minimal to no pain (goal progress) LTG Duration 12 wks Progress Towards Goals Progress Towards Goals Slow Progress due to Medical Issues Progress Comments Patient remains highly motivated, measurable progress though slow due to multiple issues including obesity and cardiac issues. Assessment Summary Assessment Would continue to benefit from physical therapy for right shoulder and neck pain Physical Therapy Plan Frequency and Duration Frequency of Treatment 2x/Week Duration of Treatment 12 wks Plan of Care Start Date 04/25/18 Plan of Care End Date 07/26/18 Therapeutic Interventions Therapeutic Interventions Home Exercise Program Manual Therapy Patient/Caregiver Education Self-Care/Home Management Taping Therapeutic Activities Therapeutic Exercises Modalities Electric Stimulation Hot Packs Infrared Therapy Iontophoresis Ultrasound Next Visit Focus/Plan Next Note Type Treatment Note Next Visit Plan Iontophoresis with Dexamethosone, continue gentle exercise progression, manual techniques, and modalities as needed.
--- NOTE | 2018-04-28 13:56 | PT.OPPOC ---
Current Diagnoses Pain in right shoulder (04/25/18) Provider Visit Care Team Role Provider Type Madyson Theodore MD Attending Provider Physician Family Provider Primary Care Provider Specialty: Family Practice Address: [address] [place] [address], [id number] Email: [email or web address] Plan Of Care PT-OP-T Assessment and Plan Start: 02/05/18 08:08 Freq: Status: Active Protocol: Document 04/25/18 09:00 [facility] (Rec: 04/28/18 13:55 [facility] [id number]) Physical Therapy Assessment Impairments Impairments Functional Activities Pain Posture ROM Soft Tissue Mobility Goals Three Impairment Pain Short Term Goal (STG) Decrease pain by 50% (goal progress; not constant or as severe per patient) STG Duration 6 wks Mcc Goal (LTG) Pain decreased by 75% (goal progress) LTG Duration 12 wks Two Impairment funcion: UE quickdash score 70 % Short Term Goal (STG) Decrease score to 50 (goal progress; can now put on bra and do some reaching without severe pain) STG Duration 6 wks Shipyard Laborer Goal (LTG) Decrease score to 20 (goal progress) LTG Duration 12 wks One Impairment unable to reach overhead, out to side, or behind her back d/ t pain Short Term Goal (STG) Patient will be able to resume 50% of her normal activities using right UE (goal progress as above) STG Duration 6 wks Mcc Goal (LTG) Patient will be able to return to all prior daily activities using right UE with minimal to no pain (goal progress) LTG Duration 12 wks Progress Towards Goals Progress Towards Goals Slow Progress due to Medical Issues Progress Comments Patient remains highly motivated, measurable progress though slow due to multiple issues including obesity and cardiac issues. Assessment Summary Assessment Would continue to benefit from physical therapy for right shoulder and neck pain Physical Therapy Plan Frequency and Duration Frequency of Treatment 2x/Week Duration of Treatment 12 wks Plan of Care Start Date 04/25/18 Plan of Care End Date 07/26/18 Therapeutic Interventions Therapeutic Interventions Home Exercise Program Manual Therapy Patient/Caregiver Education Self-Care/Home Management Taping Therapeutic Activities Therapeutic Exercises Modalities Electric Stimulation Hot Packs Infrared Therapy Iontophoresis Ultrasound Next Visit Focus/Plan Next Note Type Treatment Note Next Visit Plan Iontophoresis with Dexamethosone, continue gentle exercise progression, manual techniques, and modalities as needed. Plan of Care Dates Plan of Care Start Date 04/25/18 Plan of Care End Date 07/26/18 Please Sign and Return: I have reviewed this Plan of Care and certify that the skilled therapy services above are required to meet the patient?s needs. Physician Signature Date Printed Name and Credentials Clinical Instructor Signature Printed Name and Credentials
--- NOTE | 2018-05-02 11:05 | PT.OTN ---
Current Diagnoses Pain in right shoulder (05/02/18) Physical Therapy Treatment Note PT-OP-A Visit Information Start: 02/05/18 08:08 Freq: Status: Active Protocol: Document 05/02/18 09:00 [facility] (Rec: 05/02/18 11:04 [facility] [id number]) Out-Patient Physical Therapy Visit Information Visit Information Visit Type Treatment Note Visit Start Time 09:00 Visit Stop Time 10:00 Total Visit Minutes 60 Visit Number 12 Number of STEEL RULE DIE MAKER Visits 0 PT-OP-B Current Condition Start: 02/05/18 08:08 Freq: Status: Active Protocol: Document 02/08/18 12:58 [facility] (Rec: 02/08/18 13:39 [facility] [id number]) Current Condition Personal Factors Other Personal Factors That May Effect Shooting pains even with just Therapy/Recovery sitting still. PT-OP-C Subjective Start: 02/05/18 08:08 Freq: Status: Active Protocol: Document 05/02/18 09:00 [facility] (Rec: 05/02/18 11:04 [facility] [id number]) OP-PT Subjective Patient Comments Patient Comments States she felt good about visit at [facility] clinic with Dr. Rivas regarding weight loss. She returns to see him in 1 wks. Needs to consult with clinical admissions manager regarding the weight-loss program. Starting cardiac rehab today. [place] better for 1 day after PT session. PT-OP-E Functional Tests Start: 02/05/18 08:08 Freq: Status: Active Protocol: Document 02/05/18 09:06 [facility] (Rec: 02/05/18 09:16 [facility] [id number]) Functional Tests Gladysey's Scratch Test Action 1: The subject is instructed to touch the opposite shoulder with his/her hand. This motion checks Glenohumeral adduction, internal rotation , horizontal adduction and scapular protraction Action 2: The subject is instructed to place his/her arm overhead and reach behind the neck to touch his/her upper back. This motion checks Glenohumeral abduction, external rotation and scapular upward rotation and elevation. Action 3: The subject puts his/her hand on the lower back and reaches upward as far as possible. This motion checks glenohumeral adduction, internal rotation and scapular retraction with downward rotation Action 1- Left posterior shoulder Action 1- Right anterior shoulder Action 2- Left T2 Action 2- Right C2 Action 3- Left T7 Action 3- Right T12 PT-OP-F Manual Assessment Start: 02/05/18 08:08 Freq: Status: Active Protocol: Document 02/05/18 09:16 [facility] (Rec: 02/05/18 09:24 [facility] [id number]) Manual Assessments Soft Tissue Assessment Soft Tissue Mobility Assessment Moderate palpable tightness bilateral UT and levator scap right greater than left PT-OP-J Posture/Palpation/Skin Start: 02/05/18 08:08 Freq: Status: Active Protocol: Document 02/05/18 09:16 [facility] (Rec: 02/05/18 09:24 [facility] [id number]) Posture Evaluation Position Sitting Head/C-Spine Posture Forward Head T-Spine Posture Increased Kyphosis Shoulder Posture (L) Rounded (R) Rounded Scapula Posture (L) Protracted (R) Protracted Arm Posture (R) Internally Rotated PT-OP-K Range of Motion Start: 02/05/18 08:08 Freq: Status: Active Protocol: Document 02/05/18 09:16 [facility] (Rec: 02/05/18 09:24 [facility] [id number]) Cervical Spine Range of Motion Cervical Spine Active Testing Position Sitting Flexion 50 Extension 30 Rotation Left 40 Rotation Right 40 Lateral Flexion Left 20 Lateral Flexion Right 20 ROM Limitations Pain Shoulder Goniometric Range of Motion Shoulder Measured in Degrees Right Shoulder ROM WFL No Testing Position Sitting Flexion 140 Extension 15 Abduction 120 Horizontal Abduction 95 Horizontal Adduction 20 External Rotation at 45 degrees 25 Abduction Left Shoulder ROM WFL Yes Testing Position Sitting Flexion 165 Extension 20 Abduction 150 Horizontal Abduction 170 Horizontal Adduction 45 External Rotation at 45 degrees 75 Abduction Shoulder ROM Limitations Shoulder ROM Limitations Pain Comments moderate to severe pain per patient PT-OP-L Special Tests Start: 02/05/18 08:08 Freq: Status: Active Protocol: Document 02/05/18 09:16 [facility] (Rec: 02/05/18 09:24 [facility] [id number]) Special Tests Shoulder Special Tests Passive ER Rotator Cuff Test Results positive right IR/Horizontal ADD Impingement Test Results positive right Drop Arm Rotator Cuff Test Results positive right PT-OP-M Strength Start: 02/05/18 08:08 Freq: Status: Active Protocol: Document 02/05/18 09:24 [facility] (Rec: 02/05/18 09:36 [facility] [id number]) Cervical Spine Strength Cervical Spine Manual Muscle Testing Comments Not tested due to pain Shoulder Strength Shoulder Manual Muscle Testing Right Reason Not Measured Pain Left Reason Not Measured WFL PT-OP-Q Treatments Start: 02/05/18 08:08 Freq: Status: Active Protocol: Document 05/02/18 09:00 [facility] (Rec: 05/02/18 11:04 [facility] [id number]) Therapeutic Exercises Supine Exercises 4 Supine Exercise Name chest press and shld flex with wand Comments cues for ex in pain-free ROM 2 Supine Exercise Name shoulder IR/ER AAROM Sitting Exercises 4 Sitting Exercise Name cervical retraction Reps/Minutes 5x 1 Sitting Exercise Name pulleys shoulder flex, scaption Reps/Minutes 20x Comments ball at upper thoracic spine to encourage improved thoracic extension Standing Exercises 2 Standing Exercise Name row, shoulder ext, ER Equipment Used L1 theraband Comments verbal and manual cues for scapular stabiization Manual Therapy Treatment Soft Tissue Mobilization 2 Body Location luisa UT, bilateral c/s, upper thoracic Mobilization Type Strumming Intensity/Depth Moderate Body Position Hooklying 1 Body Location left UT, c/s, deltoid, biceps, rhomboids Mobilization Type Strumming Intensity/Depth Moderate Body Position hooklying Self-Care/Home Management Treatment Education Patient Education Posture Other Education importance of cervical retraction for improved neck alignment which affects shoulder function as well. PT-OP-R Modalities Start: 02/05/18 08:08 Freq: Status: Active Protocol: Document 05/02/18 09:00 [facility] (Rec: 05/02/18 11:04 [facility] [id number]) Electric Stimulation Electric Stimulation Interferential Current (IFC) Body Location luisa c/s and upper thoracic spine Patient Position Hooklying Combined With Heat/Cold Cold Pack Iontophoresis Treatment Right Shoulder Treatment Medication Dexamethasone (-) Medication Amount (mL) (ml) 1 Medication Dosage 4 mg/ml Treatment Polarity Negative to Negative Active Electrode Placement right cervico thoracic junction Treatment Duration (minutes) 3 Patient Tolerance Good Ultrasound Therapy Treatment Right Shoulder Treatment Duration (minutes) 8 Patient Position Supine Coupling Medium Ultrasound Gel Frequency Setting (mHz) 1 Mode Setting Continuous Intensity Setting (w/cm2) 1.2 Comments lower cervical, upper thoracic region, right shoulder PT-OP-T Assessment and Plan Start: 02/05/18 08:08 Freq: Status: Active Protocol: Document 05/02/18 09:00 [facility] (Rec: 05/02/18 11:04 [facility] [id number]) Physical Therapy Assessment Impairments Impairments Functional Activities Pain Posture ROM Soft Tissue Mobility Goals Three Impairment Pain Short Term Goal (STG) Decrease pain by 50% (goal progress; not constant or as severe per patient) STG Duration 6 wks Alf Goal (LTG) Pain decreased by 75% (goal progress) LTG Duration 12 wks Two Impairment funcion: UE quickdash score 70 % Short Term Goal (STG) Decrease score to 50 (goal progress; can now put on bra and do some reaching without severe pain) STG Duration 6 wks Alf Goal (LTG) Decrease score to 20 (goal progress) LTG Duration 12 wks One Impairment unable to reach overhead, out to side, or behind her back d/ t pain Short Term Goal (STG) Patient will be able to resume 50% of her normal activities using right UE (goal progress as above) STG Duration 6 wks Alf Goal (LTG) Patient will be able to return to all prior daily activities using right UE with minimal to no pain (goal progress) LTG Duration 12 wks Progress Towards Goals Progress Towards Goals Slow Progress due to Medical Issues Progress Comments Patient remains highly motivated, measurable progress though slow due to multiple issues including obesity and cardiac issues. Physical Therapy Plan Frequency and Duration Frequency of Treatment 2x/Week Duration of Treatment 12 wks Plan of Care Start Date 04/25/18 Plan of Care End Date 07/26/18 Therapeutic Interventions Therapeutic Interventions Home Exercise Program Manual Therapy Patient/Caregiver Education Self-Care/Home Management Taping Therapeutic Activities Therapeutic Exercises Modalities Electric Stimulation Hot Packs Infrared Therapy Iontophoresis Ultrasound Next Visit Focus/Plan Next Note Type Treatment Note Next Visit Plan Progress ther ex as indicated, with increased resistance, free weights and machines as tolerated, postural emphasis.
--- NOTE | 2018-05-14 16:46 | PT.OTN ---
Current Diagnoses Pain in right shoulder (05/14/18) Physical Therapy Treatment Note PT-OP-A Visit Information Start: 02/05/18 08:08 Freq: Status: Active Protocol: Document 05/14/18 13:00 [facility] (Rec: 05/14/18 13:48 [facility] [id number]) Out-Patient Physical Therapy Visit Information Visit Information Visit Type Treatment Note Visit Start Time 13:00 Visit Stop Time 13:45 Total Visit Minutes 60 Visit Number 13 Number of WORKPLACE TRAINER AND ASSESSOR Visits 0 PT-OP-B Current Condition Start: 02/05/18 08:08 Freq: Status: Active Protocol: Document 02/08/18 12:58 SAK (Rec: 02/08/18 13:39 SAK [id number]) Current Condition Personal Factors Other Personal Factors That May Effect Shooting pains even with just Therapy/Recovery sitting still. PT-OP-C Subjective Start: 02/05/18 08:08 Freq: Status: Active Protocol: Document 05/14/18 13:00 [facility] (Rec: 05/14/18 13:48 [facility] [id number]) OP-PT Subjective Patient Comments Patient Comments Reports she did something to her shoulder, pain increased. Sees new GP in 9 days, having difficulty with BP. Has lost 12 lbs since starting at [facility]. Not doing all of theraband exercises PT-OP-E Functional Tests Start: 02/05/18 08:08 Freq: Status: Active Protocol: Document 02/05/18 09:06 SAK (Rec: 02/05/18 09:16 [facility] [id number]) Functional Tests Apley's Scratch Test Action 1: The subject is instructed to touch the opposite shoulder with his/her hand. This motion checks Glenohumeral adduction, internal rotation , horizontal adduction and scapular protraction Action 2: The subject is instructed to place his/her arm overhead and reach behind the neck to touch his/her upper back. This motion checks Glenohumeral abduction, external rotation and scapular upward rotation and elevation. Action 3: The subject puts his/her hand on the lower back and reaches upward as far as possible. This motion checks glenohumeral adduction, internal rotation and scapular retraction with downward rotation Action 1- Left posterior shoulder Action 1- Right anterior shoulder Action 2- Left T2 Action 2- Right C2 Action 3- Left T7 Action 3- Right T12 PT-OP-F Manual Assessment Start: 02/05/18 08:08 Freq: Status: Active Protocol: Document 02/05/18 09:16 SAK (Rec: 02/05/18 09:24 SAK [id number]) Manual Assessments Soft Tissue Assessment Soft Tissue Mobility Assessment Moderate palpable tightness bilateral UT and levator scap right greater than left PT-OP-J Posture/Palpation/Skin Start: 02/05/18 08:08 Freq: Status: Active Protocol: Document 02/05/18 09:16 SAK (Rec: 02/05/18 09:24 SAK [id number]) Posture Evaluation Position Sitting Head/C-Spine Posture Forward Head T-Spine Posture Increased Kyphosis Shoulder Posture (L) Rounded (R) Rounded Scapula Posture (L) Protracted (R) Protracted Arm Posture (R) Internally Rotated PT-OP-K Range of Motion Start: 02/05/18 08:08 Freq: Status: Active Protocol: Document 02/05/18 09:16 SAK (Rec: 02/05/18 09:24 SAK [id number]) Cervical Spine Range of Motion Cervical Spine Active Testing Position Sitting Flexion 50 Extension 30 Rotation Left 40 Rotation Right 40 Lateral Flexion Left 20 Lateral Flexion Right 20 ROM Limitations Pain Shoulder Goniometric Range of Motion Shoulder Measured in Degrees Right Shoulder ROM WFL No Testing Position Sitting Flexion 140 Extension 15 Abduction 120 Horizontal Abduction 95 Horizontal Adduction 20 External Rotation at 45 degrees 25 Abduction Left Shoulder ROM WFL Yes Testing Position Sitting Flexion 165 Extension 20 Abduction 150 Horizontal Abduction 170 Horizontal Adduction 45 External Rotation at 45 degrees 75 Abduction Shoulder ROM Limitations Shoulder ROM Limitations Pain Comments moderate to severe pain per patient PT-OP-L Special Tests Start: 02/05/18 08:08 Freq: Status: Active Protocol: Document 02/05/18 09:16 SAK (Rec: 02/05/18 09:24 SAK [id number]) Special Tests Shoulder Special Tests Passive ER Rotator Cuff Test Results positive right IR/Horizontal ADD Impingement Test Results positive right Drop Arm Rotator Cuff Test Results positive right PT-OP-M Strength Start: 02/05/18 08:08 Freq: Status: Active Protocol: Document 02/05/18 09:24 SAK (Rec: 02/05/18 09:36 SAK [id number]) Cervical Spine Strength Cervical Spine Manual Muscle Testing Comments Not tested due to pain Shoulder Strength Shoulder Manual Muscle Testing Right Reason Not Measured Pain Left Reason Not Measured WFL PT-OP-Q Treatments Start: 02/05/18 08:08 Freq: Status: Active Protocol: Document 05/14/18 13:00 [facility] (Rec: 05/14/18 13:48 [facility] [id number]) Cardio Equipment Recumbent Stepper (Sci-Fit) Duration (Minutes) 10 Resistance 1.5 Therapeutic Exercises Sitting Exercises 4 Sitting Exercise Name cervical retraction Reps/Minutes 5x 1 Sitting Exercise Name pulleys shoulder flex, scaption Reps/Minutes 20x Comments ball at upper thoracic spine to encourage improved thoracic extension Standing Exercises 2 Standing Exercise Name row, shoulder ext, ER Equipment Used L1 theraband Comments verbal and manual cues for scapular stabiization Manual Therapy Treatment Soft Tissue Mobilization 2 Body Location luisa UT, bilateral c/s, upper thoracic Mobilization Type Strumming Intensity/Depth Moderate Body Position Hooklying 1 Body Location left UT, c/s, deltoid, biceps, rhomboids Mobilization Type Strumming Intensity/Depth Moderate Body Position hooklying Manual Traction Cervical Details gentle cervical traction for muscle relaxation Body Position Hooklying Reps/Duration 3 min PT-OP-R Modalities Start: 02/05/18 08:08 Freq: Status: Active Protocol: Document 05/14/18 13:00 [facility] (Rec: 05/14/18 16:46 [facility] [id number]) Electric Stimulation Electric Stimulation Interferential Current (IFC) Body Location luisa c/s and upper thoracic spine Patient Position Hooklying Combined With Heat/Cold Cold Pack Hot Pack/Cold Pack Treatment Hot Pack Location c/s and shoulder Patient Position Hooklying Treatment Duration (minutes) 15 Patient Tolerance Good Iontophoresis Treatment Right Shoulder Treatment Medication Dexamethasone (-) Medication Amount (mL) (ml) 1 Medication Dosage 4 mg/ml Treatment Polarity Negative to Negative Active Electrode Placement right RC insertion Treatment Duration (minutes) 3 Patient Tolerance Good Ultrasound Therapy Treatment Right Shoulder Treatment Duration (minutes) 8 Patient Position Sitting Coupling Medium Ultrasound Gel Frequency Setting (mHz) 1 Mode Setting Continuous Intensity Setting (w/cm2) 1.2 Comments lower cervical, upper thoracic region, right shoulder PT-OP-T Assessment and Plan Start: 02/05/18 08:08 Freq: Status: Active Protocol: Document 05/14/18 13:00 [facility] (Rec: 05/14/18 16:46 SAK [id number]) Physical Therapy Assessment Rehab Potential Rehabilitation Potential Good Evaluation Complexity Number of Personal Factors/Comorbidities 3 or More Number of Body Systems Impaired 3 Clinical Presentation at Evaluation Unstable Impairments Impairments Functional Activities Pain Posture ROM Soft Tissue Mobility Goals Three Impairment Pain Short Term Goal (STG) Decrease pain by 50% (goal progress; not constant or as severe per patient) STG Duration 6 wks Intermediate Goal (LTG) Pain decreased by 75% (goal progress) LTG Duration 12 wks Two Impairment funcion: UE quickdash score 70 % Short Term Goal (STG) Decrease score to 50 (goal progress; can now put on bra and do some reaching without severe pain) STG Duration 6 wks Intermediate Goal (LTG) Decrease score to 20 (goal progress) LTG Duration 12 wks One Impairment unable to reach overhead, out to side, or behind her back d/ t pain Short Term Goal (STG) Patient will be able to resume 50% of her normal activities using right UE (goal progress as above) STG Duration 6 wks Intermediate Goal (LTG) Patient will be able to return to all prior daily activities using right UE with minimal to no pain (goal progress) LTG Duration 12 wks Progress Towards Goals Progress Towards Goals Slow Progress due to Medical Issues Progress Comments Increase in pain possibly due to cleaning out cupboards at home. Again instructed patient to perform all theraband exercises at home for best results Assessment Summary Assessment Patient benefiting from attending [facility] clinic. Feel weight-loss may be beneficial for her shoulder pain as well. Physical Therapy Plan Frequency and Duration Frequency of Treatment 2x/Week Duration of Treatment 12 wks Plan of Care Start Date 04/25/18 Plan of Care End Date 07/26/18 Therapeutic Interventions Therapeutic Interventions Home Exercise Program Manual Therapy Patient/Caregiver Education Self-Care/Home Management Taping Therapeutic Activities Therapeutic Exercises Modalities Electric Stimulation Hot Packs Infrared Therapy Iontophoresis Ultrasound Next Visit Focus/Plan Next Note Type Treatment Note Next Visit Plan Assess response to last session, monitor BP.
--- NOTE | 2018-05-21 10:13 | PT.OTN ---
Current Diagnoses Pain in right shoulder (05/20/18) Physical Therapy Treatment Note PT-OP-A Visit Information Start: 02/05/18 08:08 Freq: Status: Active Protocol: Document 05/20/18 09:10 [facility] (Rec: 05/21/18 10:12 [facility] [id number]) Out-Patient Physical Therapy Visit Information Visit Information Visit Type Treatment Note Visit Start Time 09:10 Visit Stop Time 10:07 Total Visit Minutes 57 Visit Number 14 Number of [employer] FIELD AGENT Visits 0 PT-OP-B Current Condition Start: 02/05/18 08:08 Freq: Status: Active Protocol: Document 02/08/18 12:58 SAK (Rec: 02/08/18 13:39 [facility] [id number]) Current Condition Personal Factors Other Personal Factors That May Effect Shooting pains even with just Therapy/Recovery sitting still. PT-OP-C Subjective Start: 02/05/18 08:08 Freq: Status: Active Protocol: Document 05/20/18 09:10 [facility] (Rec: 05/21/18 10:12 [facility] [id number]) OP-PT Subjective Patient Comments Patient Comments Reports felt better for 2 days after last session, but then states somehow I stirred it up really bad over weekend. PT-OP-E Functional Tests Start: 02/05/18 08:08 Freq: Status: Active Protocol: Document 02/05/18 09:06 [facility] (Rec: 02/05/18 09:16 [facility] [id number]) Functional Tests Apley's Scratch Test Action 1: The subject is instructed to touch the opposite shoulder with his/her hand. This motion checks Glenohumeral adduction, internal rotation , horizontal adduction and scapular protraction Action 2: The subject is instructed to place his/her arm overhead and reach behind the neck to touch his/her upper back. This motion checks Glenohumeral abduction, external rotation and scapular upward rotation and elevation. Action 3: The subject puts his/her hand on the lower back and reaches upward as far as possible. This motion checks glenohumeral adduction, internal rotation and scapular retraction with downward rotation Action 1- Left posterior shoulder Action 1- Right anterior shoulder Action 2- Left T2 Action 2- Right C2 Action 3- Left T7 Action 3- Right T12 PT-OP-F Manual Assessment Start: 02/05/18 08:08 Freq: Status: Active Protocol: Document 02/05/18 09:16 SAK (Rec: 02/05/18 09:24 SAK [id number]) Manual Assessments Soft Tissue Assessment Soft Tissue Mobility Assessment Moderate palpable tightness bilateral UT and levator scap right greater than left PT-OP-J Posture/Palpation/Skin Start: 02/05/18 08:08 Freq: Status: Active Protocol: Document 02/05/18 09:16 SAK (Rec: 02/05/18 09:24 SAK [id number]) Posture Evaluation Position Sitting Head/C-Spine Posture Forward Head T-Spine Posture Increased Kyphosis Shoulder Posture (L) Rounded (R) Rounded Scapula Posture (L) Protracted (R) Protracted Arm Posture (R) Internally Rotated PT-OP-K Range of Motion Start: 02/05/18 08:08 Freq: Status: Active Protocol: Document 02/05/18 09:16 SAK (Rec: 02/05/18 09:24 [facility] [id number]) Cervical Spine Range of Motion Cervical Spine Active Testing Position Sitting Flexion 50 Extension 30 Rotation Left 40 Rotation Right 40 Lateral Flexion Left 20 Lateral Flexion Right 20 ROM Limitations Pain Shoulder Goniometric Range of Motion Shoulder Measured in Degrees Right Shoulder ROM WFL No Testing Position Sitting Flexion 140 Extension 15 Abduction 120 Horizontal Abduction 95 Horizontal Adduction 20 External Rotation at 45 degrees 25 Abduction Left Shoulder ROM WFL Yes Testing Position Sitting Flexion 165 Extension 20 Abduction 150 Horizontal Abduction 170 Horizontal Adduction 45 External Rotation at 45 degrees 75 Abduction Shoulder ROM Limitations Shoulder ROM Limitations Pain Comments moderate to severe pain per patient PT-OP-L Special Tests Start: 02/05/18 08:08 Freq: Status: Active Protocol: Document 02/05/18 09:16 SAK (Rec: 02/05/18 09:24 [facility] [id number]) Special Tests Shoulder Special Tests Passive ER Rotator Cuff Test Results positive right IR/Horizontal ADD Impingement Test Results positive right Drop Arm Rotator Cuff Test Results positive right PT-OP-M Strength Start: 02/05/18 08:08 Freq: Status: Active Protocol: Document 02/05/18 09:24 [facility] (Rec: 02/05/18 09:36 [facility] [id number]) Cervical Spine Strength Cervical Spine Manual Muscle Testing Comments Not tested due to pain Shoulder Strength Shoulder Manual Muscle Testing Right Reason Not Measured Pain Left Reason Not Measured WFL PT-OP-Q Treatments Start: 02/05/18 08:08 Freq: Status: Active Protocol: Document 05/20/18 09:10 [facility] (Rec: 05/21/18 10:12 [facility] [id number]) Therapeutic Exercises Supine Exercises 5 Supine Exercise Name manual pec stretch 2 Supine Exercise Name shoulder IR/ER AAROM Sitting Exercises 4 Sitting Exercise Name cervical retraction Reps/Minutes 5x Standing Exercises 2 Standing Exercise Name row, shoulder ext, ER Equipment Used L1 theraband Comments verbal and manual cues for scapular stabiization Manual Therapy Treatment Soft Tissue Mobilization 2 Body Location luisa UT, bilateral c/s, upper thoracic Mobilization Type Strumming Intensity/Depth Moderate Body Position Hooklying 1 Body Location right UT, c/s, deltoid, bicep, pec mikaela/min Mobilization Type Strumming Intensity/Depth Moderate Body Position hooklying Manual Traction Cervical Details gentle cervical traction for muscle relaxation Body Position Hooklying Reps/Duration 3 min PT-OP-R Modalities Start: 02/05/18 08:08 Freq: Status: Active Protocol: Document 05/20/18 09:10 [facility] (Rec: 05/21/18 10:12 [facility] [id number]) Electric Stimulation Electric Stimulation Interferential Current (IFC) Body Location luisa c/s and upper thoracic spine Patient Position Hooklying Combined With Heat/Cold Cold Pack Iontophoresis Treatment Right Shoulder Treatment Medication Dexamethasone (-) Medication Amount (mL) (ml) 1 Medication Dosage 4 mg/ml Treatment Polarity Negative to Negative Active Electrode Placement right RC insertion Treatment Duration (minutes) 3 Patient Tolerance Good Ultrasound Therapy Treatment Right Shoulder Treatment Duration (minutes) 16 Patient Position Sitting Coupling Medium Ultrasound Gel Frequency Setting (mHz) 1 Mode Setting Continuous Intensity Setting (w/cm2) 1.4 Comments lower cervical, upper thoracic region, right shoulder PT-OP-T Assessment and Plan Start: 02/05/18 08:08 Freq: Status: Active Protocol: Document 05/20/18 09:10 [facility] (Rec: 05/21/18 10:12 [facility] [id number]) Physical Therapy Assessment Goals Three Impairment Pain Short Term Goal (STG) Decrease pain by 50% (goal progress; not constant or as severe per patient) STG Duration 6 wks Senior Living Goal (LTG) Pain decreased by 75% (goal progress) LTG Duration 12 wks Two Impairment funcion: UE quickdash score 70 % Short Term Goal (STG) Decrease score to 50 (goal progress; can now put on bra and do some reaching without severe pain) STG Duration 6 wks Senior Living Goal (LTG) Decrease score to 20 (goal progress) LTG Duration 12 wks One Impairment unable to reach overhead, out to side, or behind her back d/ t pain Short Term Goal (STG) Patient will be able to resume 50% of her normal activities using right UE (goal progress as above) STG Duration 6 wks Electronic Operator Goal (LTG) Patient will be able to return to all prior daily activities using right UE with minimal to no pain (goal progress) LTG Duration 12 wks Progress Towards Goals Progress Towards Goals Slow Progress due to Medical Issues Progress Comments Good benefit from PT but pain easily exacerbated. Patient fatigued from new diet from [facility], chronic medical issues. Feel patient may benefit from further imaging due to persistent pain, moderate tenderness anterior shoulder girdle. Physical Therapy Plan Frequency and Duration Frequency of Treatment 2x/Week Duration of Treatment 12 wks Plan of Care Start Date 04/25/18 Plan of Care End Date 07/26/18 Therapeutic Interventions Therapeutic Interventions Home Exercise Program Manual Therapy Patient/Caregiver Education Self-Care/Home Management Taping Therapeutic Activities Therapeutic Exercises Modalities Electric Stimulation Hot Packs Infrared Therapy Iontophoresis Ultrasound Next Visit Focus/Plan Next Note Type Treatment Note Next Visit Plan Assess response to last session, monitor BP.
--- NOTE | 2018-07-17 16:36 | PT.OTRE ---
Current Diagnoses Pain in right shoulder (07/15/18) Torticollis (07/15/18) Cervicalgia (07/15/18) Unspecified disorder of synovium and tendon, right shoulder (07/15/18) Past Medical History (Last Reviewed 05/28/18 @ 17:58 by Soledad Vick DO) Angioedema (Chronic) CAD (coronary artery disease) (Chronic 2013) Elevated coronary artery calcium score (Chronic) Hypertension (Chronic) Prinzmetal's angina (Chronic 1975) Sleep apnea (Chronic) Statin intolerance (Chronic) Asthma (Resolved) History of recurrent pneumonia (Resolved) Shingles (Resolved 2016) Surgical History (Last Reviewed 05/28/18 @ 17:58 by Soledad Vick DO) History of arthroplasty (Resolved 12/09/12) History of arthroplasty (Resolved 01/20/13) History of cataract removal with insertion of prosthetic lens (Resolved 2014) History of cholecystectomy (Resolved) History of tonsillectomy (Resolved) Stented coronary artery (Resolved 2013) Provider Visit Care Team Role Provider Type Stevie Dietrich DO Referring Provider Non-Staff Specialty: Orthopedics Address: [address] [place] [address], [id number] Email: Madyson Theodore MD Attending Provider Physician Family Provider Primary Care Provider Specialty: Family Practice Address: [address] [place] [address], [id number] Email: [email or web address] Physical Therapy Re-Evaluation PT-OP-A Visit Information Start: 02/05/18 08:08 Freq: Status: Active Protocol: Document 05/20/18 09:10 SAK (Rec: 05/21/18 10:12 SAK [id number]) Out-Patient Physical Therapy Visit Information Visit Information Visit Type Re-Evaluation Visit Start Time 09:10 Visit Stop Time 10:07 Total Visit Minutes 57 Visit Number 14 Number of JOURNEYMAN WIREMAN Visits 0 PT-OP-B Current Condition Start: 02/05/18 08:08 Freq: Status: Active Protocol: Document 07/15/18 09:00 SAK (Rec: 07/15/18 09:53 SAK [id number]) Current Condition History of Current Condition Onset Date December 2017 Current Complaints bilateral neck pain, luisa shoulder pain right worse than left History of Current Condition Patient reports hasn't been to PT for a couple months due to PT department scheduling error which erased all her scheduled appointments; returns today reporting increase in neck and shoulder pain since last seen. Reports recent injury to neck after spending several hours looking at ipad with head rotated and bent, next morning felt explosion in neck, with persistant neck pain x 10 days . Some better since that time but pain persists. Increased stress over past week due to the of a couple pets. Pain in neck 8/10 at worst when looking up, mild pain when not looking up. Shoulder pain persists especially when attempting to reach overhead or out to side, reaching behind her back is some better . Compliant to HEP, doing cardiac rehab, but modified for shoulder; below shoulder level exercises. Shoulder pain exacerbated easily. Treatment Goals Patient/Caregiver Goals Decrease neck and shoulder pain PT-OP-C Subjective Start: 02/05/18 08:08 Freq: Status: Active Protocol: Document 07/15/18 09:00 [facility] (Rec: 07/17/18 16:36 [facility] [id number]) OP-PT Subjective Patient Comments Patient Comments Most concerned about her neck pain, but shoulder pain persists as above. Glad to be re-starting PT PT-OP-E Functional Tests Start: 02/05/18 08:08 Freq: Status: Active Protocol: Document 07/15/18 09:00 [facility] (Rec: 07/17/18 16:36 [facility] [id number]) Functional Tests Apley's Scratch Test Action 1: The subject is instructed to touch the opposite shoulder with his/her hand. This motion checks Glenohumeral adduction, internal rotation , horizontal adduction and scapular protraction Action 2: The subject is instructed to place his/her arm overhead and reach behind the neck to touch his/her upper back. This motion checks Glenohumeral abduction, external rotation and scapular upward rotation and elevation. Action 3: The subject puts his/her hand on the lower back and reaches upward as far as possible. This motion checks glenohumeral adduction, internal rotation and scapular retraction with downward rotation Action 1- Left posterior shoulder Action 1- Right anterior shoulder Action 2- Left T2 Action 2- Right C2 Action 3- Left T7 Action 3- Right T10 PT-OP-F Manual Assessment Start: 02/05/18 08:08 Freq: Status: Active Protocol: Document 02/05/18 09:16 [facility] (Rec: 02/05/18 09:24 [facility] [id number]) Manual Assessments Soft Tissue Assessment Soft Tissue Mobility Assessment Moderate palpable tightness bilateral UT and levator scap right greater than left PT-OP-J Posture/Palpation/Skin Start: 02/05/18 08:08 Freq: Status: Active Protocol: Document 07/15/18 09:00 [facility] (Rec: 07/17/18 16:36 [facility] [id number]) Posture Evaluation Position Sitting Head/C-Spine Posture Forward Head T-Spine Posture Increased Kyphosis Shoulder Posture (L) Rounded (R) Rounded Scapula Posture (L) Protracted (R) Protracted Arm Posture (R) Internally Rotated PT-OP-K Range of Motion Start: 02/05/18 08:08 Freq: Status: Active Protocol: Document 07/15/18 09:00 [facility] (Rec: 07/17/18 16:36 [facility] [id number]) Cervical Spine Range of Motion Cervical Spine Active Flexion 50 Extension 30 Rotation Left 40 Rotation Right 40 Lateral Flexion Left 20 Lateral Flexion Right 20 ROM Limitations Pain Shoulder Goniometric Range of Motion Shoulder Measured in Degrees Right Shoulder ROM WFL No Testing Position Sitting Flexion 140 Extension 15 Abduction 120 Horizontal Abduction 95 Horizontal Adduction 20 External Rotation at 45 degrees 25 Abduction Left Shoulder ROM WFL Yes Testing Position Sitting Flexion 165 Extension 20 Abduction 150 Horizontal Abduction 170 Horizontal Adduction 45 External Rotation at 45 degrees 75 Abduction PT-OP-L Special Tests Start: 02/05/18 08:08 Freq: Status: Active Protocol: Document 02/05/18 09:16 [facility] (Rec: 02/05/18 09:24 [facility] [id number]) Special Tests Shoulder Special Tests Passive ER Rotator Cuff Test Results positive right IR/Horizontal ADD Impingement Test Results positive right Drop Arm Rotator Cuff Test Results positive right PT-OP-M Strength Start: 02/05/18 08:08 Freq: Status: Active Protocol: Document 07/15/18 09:00 [facility] (Rec: 07/17/18 16:36 [facility] [id number]) Shoulder Strength Shoulder Manual Muscle Testing Right Reason Not Measured Pain Comments severity of pain Left Reason Not Measured WFL PT-OP-Q Treatments Start: 02/05/18 08:08 Freq: Status: Active Protocol: Document 07/15/18 09:00 [facility] (Rec: 07/17/18 16:36 [facility] [id number]) Therapeutic Exercises Supine Exercises 5 Supine Exercise Name manual pec stretch 2 Supine Exercise Name shoulder IR/ER AAROM Sitting Exercises 4 Sitting Exercise Name cervical retraction Reps/Minutes 5x Manual Therapy Treatment Soft Tissue Mobilization 2 Body Location luisa UT, bilateral c/s, upper thoracic Mobilization Type Strumming Intensity/Depth Moderate Body Position Hooklying 1 Body Location right UT, c/s, deltoid, bicep, pec mikaela/min Mobilization Type Strumming Intensity/Depth Moderate Body Position hooklying Manual Traction Cervical Details gentle cervical traction for muscle relaxation Body Position Hooklying Reps/Duration 3 min Self-Care/Home Management Treatment Education Patient Education Posture Other Education importance of cervical retraction for improved neck alignment which affects shoulder function as well. PT-OP-R Modalities Start: 02/05/18 08:08 Freq: Status: Active Protocol: Document 07/15/18 09:00 [facility] (Rec: 07/17/18 16:36 [facility] [id number]) Electric Stimulation Electric Stimulation Interferential Current (IFC) Body Location luisa c/s and upper thoracic spine Patient Position Hooklying Combined With Heat/Cold Hot Pack Ultrasound Therapy Treatment Right Shoulder Treatment Duration (minutes) 8 Patient Position Sitting Coupling Medium Ultrasound Gel Frequency Setting (mHz) 1 Mode Setting Continuous Intensity Setting (w/cm2) 1.4 Comments lower cervical spine PT-OP-T Assessment and Plan Start: 02/05/18 08:08 Freq: Status: Active Protocol: Document 07/15/18 09:00 [facility] (Rec: 07/17/18 16:36 [facility] [id number]) Physical Therapy Assessment Rehab Potential Rehabilitation Potential Good Evaluation Complexity Number of Personal Factors/Comorbidities 3 or More Number of Body Systems Impaired 3 Clinical Presentation at Evaluation Unstable Impairments Impairments Functional Activities Pain Posture ROM Soft Tissue Mobility Goals Three Impairment Pain Short Term Goal (STG) Decrease pain by 50% (goal progress; not constant or as severe per patient) STG Duration 6 wks Custodial Goal (LTG) Pain decreased by 75% (goal progress) LTG Duration 12 wks Two Impairment function: UE quickdash score 70% Short Term Goal (STG) Decrease score to 50 (goal progress; can now put on bra and do some reaching without severe pain) STG Duration 6 wks Custodial Goal (LTG) Decrease score to 20 (goal progress) LTG Duration 12 wks One Impairment unable to reach overhead, out to side, or behind her back d/ t pain Short Term Goal (STG) Patient will be able to resume 50% of her normal activities using right UE (goal progress as above) STG Duration 6 wks Custodial Goal (LTG) Patient will be able to return to all prior daily activities using right UE with minimal to no pain (goal progress) LTG Duration 12 wks Progress Towards Goals Progress Comments Recent exacerbation of neck pain, persistent shoulder pain . Not seen for 2 months due to scheduling error. Assessment Summary Assessment Recommend resumption of PT to address above goals and help return this patient to functional ROM and use of neck and shoulder. Physical Therapy Plan Frequency and Duration Frequency of Treatment 2x/Week Duration of Treatment 8 wks Plan of Care Start Date 07/15/18 Plan of Care End Date 10/15/18 Therapeutic Interventions Therapeutic Interventions Home Exercise Program Manual Therapy Patient/Caregiver Education Self-Care/Home Management Taping Therapeutic Activities Therapeutic Exercises Modalities Electric Stimulation Hot Packs Infrared Therapy Iontophoresis Ultrasound Next Visit Focus/Plan Next Note Type Treatment Note Next Visit Plan ultrasound, soft tissue mobilization of c/s right shoulder, iontophoresis shoulder, gentle ther ex as tolerated.
--- NOTE | 2018-07-17 16:36 | PT.OPPOC ---
Current Diagnoses Pain in right shoulder (07/15/18) Torticollis (07/15/18) Cervicalgia (07/15/18) Unspecified disorder of synovium and tendon, right shoulder (07/15/18) Provider Visit Care Team Role Provider Type Stevie Dietrich DO Referring Provider Non-Staff Specialty: Orthopedics Address: [address] [place] [address], [id number] Email: Madyson Theodore MD Attending Provider Physician Family Provider Primary Care Provider Specialty: Family Practice Address: [address] [place] [address], [address] Email: [email or web address] Plan Of Care PT-OP-T Assessment and Plan Start: 02/05/18 08:08 Freq: Status: Active Protocol: Document 07/15/18 09:00 [facility] (Rec: 07/17/18 16:36 [facility] [id number]) Physical Therapy Assessment Rehab Potential Rehabilitation Potential Good Evaluation Complexity Number of Personal Factors/Comorbidities 3 or More Number of Body Systems Impaired 3 Clinical Presentation at Evaluation Unstable Impairments Impairments Functional Activities Pain Posture ROM Soft Tissue Mobility Goals Three Impairment Pain Short Term Goal (STG) Decrease pain by 50% (goal progress; not constant or as severe per patient) STG Duration 6 wks Food General Manager Goal (LTG) Pain decreased by 75% (goal progress) LTG Duration 12 wks Two Impairment function: UE quickdash score 70% Short Term Goal (STG) Decrease score to 50 (goal progress; can now put on bra and do some reaching without severe pain) STG Duration 6 wks Food General Manager Goal (LTG) Decrease score to 20 (goal progress) LTG Duration 12 wks One Impairment unable to reach overhead, out to side, or behind her back d/ t pain Short Term Goal (STG) Patient will be able to resume 50% of her normal activities using right UE (goal progress as above) STG Duration 6 wks Snf Goal (LTG) Patient will be able to return to all prior daily activities using right UE with minimal to no pain (goal progress) LTG Duration 12 wks Progress Towards Goals Progress Comments Recent exacerbation of neck pain, persistent shoulder pain . Not seen for 2 months due to scheduling error. Assessment Summary Assessment Recommend resumption of PT to address above goals and help return this patient to functional ROM and use of neck and shoulder. Physical Therapy Plan Frequency and Duration Frequency of Treatment 2x/Week Duration of Treatment 8 wks Plan of Care Start Date 07/15/18 Plan of Care End Date 10/15/18 Therapeutic Interventions Therapeutic Interventions Home Exercise Program Manual Therapy Patient/Caregiver Education Self-Care/Home Management Taping Therapeutic Activities Therapeutic Exercises Modalities Electric Stimulation Hot Packs Infrared Therapy Iontophoresis Ultrasound Next Visit Focus/Plan Next Note Type Treatment Note Next Visit Plan ultrasound, soft tissue mobilization of c/s right shoulder, iontophoresis shoulder, gentle ther ex as tolerated. Plan of Care Dates Plan of Care Start Date 07/15/18 Plan of Care End Date 10/15/18 Please Sign and Return: I have reviewed this Plan of Care and certify that the skilled therapy services above are required to meet the patient?s needs. Physician Signature Date Printed Name and Credentials Clinical Instructor Signature Printed Name and Credentials
--- NOTE | 2018-07-18 13:31 | PT.OTN ---
Current Diagnoses Pain in right shoulder (07/18/18) Torticollis (07/18/18) Cervicalgia (07/18/18) Unspecified disorder of synovium and tendon, right shoulder (07/18/18) Physical Therapy Treatment Note PT-OP-A Visit Information Start: 02/05/18 08:08 Freq: Status: Active Protocol: Document 07/18/18 08:59 [facility] (Rec: 07/18/18 09:45 [facility]AK [id number]) Out-Patient Physical Therapy Visit Information Visit Information Visit Type Treatment Note Visit Start Time 09:00 Visit Stop Time 09:53 Total Visit Minutes 58 Visit Number 15 Number of SUPERVISOR SOUND TECHNICIAN Visits 0 PT-OP-B Current Condition Start: 02/05/18 08:08 Freq: Status: Active Protocol: Document 07/15/18 09:00 [facility] (Rec: 07/15/18 09:53 [facility]AK [id number]) Current Condition History of Current Condition Onset Date December 2017 Current Complaints bilateral neck pain, luisa shoulder pain right worse than left History of Current Condition Patient reports hasn't been to PT for a couple months due to PT department scheduling error which erased all her scheduled appointments; returns today reporting increase in neck and shoulder pain since last seen. Reports recent injury to neck after spending several hours looking at ipad with head rotated and bent, next morning felt explosion in neck, with persistant neck pain x 10 days . Some better since that time but pain persists. Increased stress over past week due to the of a couple pets. Pain in neck 8/10 at worst when looking up, mild pain when not looking up. Shoulder pain persists especially when attempting to reach overhead or out to side, reaching behind her back is some better . Compliant to HEP, doing cardiac rehab, but modified for shoulder; below shoulder level exercises. Shoulder pain exacerbated easily. Treatment Goals Patient/Caregiver Goals Decrease neck and shoulder pain PT-OP-C Subjective Start: 02/05/18 08:08 Freq: Status: Active Protocol: Document 07/18/18 08:59 [facility]AK (Rec: 07/18/18 09:45 SAK [id number]) OP-PT Subjective Patient Comments Patient Comments worst pain between shoulder blades, at bra line PT-OP-E Functional Tests Start: 02/05/18 08:08 Freq: Status: Active Protocol: Document 07/15/18 09:00 [facility]AK (Rec: 10/24/18 16:36 [facility] [id number]) Functional Tests Apley's Scratch Test Action 1: The subject is instructed to touch the opposite shoulder with his/her hand. This motion checks Glenohumeral adduction, internal rotation , horizontal adduction and scapular protraction Action 2: The subject is instructed to place his/her arm overhead and reach behind the neck to touch his/her upper back. This motion checks Glenohumeral abduction, external rotation and scapular upward rotation and elevation. Action 3: The subject puts his/her hand on the lower back and reaches upward as far as possible. This motion checks glenohumeral adduction, internal rotation and scapular retraction with downward rotation Action 1- Left posterior shoulder Action 1- Right anterior shoulder Action 2- Left T2 Action 2- Right C2 Action 3- Left T7 Action 3- Right T10 PT-OP-F Manual Assessment Start: 02/05/18 08:08 Freq: Status: Active Protocol: Document 02/05/18 09:16 [facility] (Rec: 02/05/18 09:24 [facility] [id number]) Manual Assessments Soft Tissue Assessment Soft Tissue Mobility Assessment Moderate palpable tightness bilateral UT and levator scap right greater than left PT-OP-J Posture/Palpation/Skin Start: 02/05/18 08:08 Freq: Status: Active Protocol: Document 07/15/18 09:00 [facility] (Rec: 07/17/18 16:36 [facility] [id number]) Posture Evaluation Position Sitting Head/C-Spine Posture Forward Head T-Spine Posture Increased Kyphosis Shoulder Posture (L) Rounded (R) Rounded Scapula Posture (L) Protracted (R) Protracted Arm Posture (R) Internally Rotated PT-OP-K Range of Motion Start: 02/05/18 08:08 Freq: Status: Active Protocol: Document 07/15/18 09:00 [facility] (Rec: 07/17/18 16:36 [facility] [id number]) Cervical Spine Range of Motion Cervical Spine Active Flexion 50 Extension 30 Rotation Left 40 Rotation Right 40 Lateral Flexion Left 20 Lateral Flexion Right 20 ROM Limitations Pain Shoulder Goniometric Range of Motion Shoulder Measured in Degrees Right Shoulder ROM WFL No Testing Position Sitting Flexion 140 Extension 15 Abduction 120 Horizontal Abduction 95 Horizontal Adduction 20 External Rotation at 45 degrees 25 Abduction Left Shoulder ROM WFL Yes Testing Position Sitting Flexion 165 Extension 20 Abduction 150 Horizontal Abduction 170 Horizontal Adduction 45 External Rotation at 45 degrees 75 Abduction PT-OP-L Special Tests Start: 02/05/18 08:08 Freq: Status: Active Protocol: Document 02/05/18 09:16 [facility] (Rec: 02/05/18 09:24 [facility] [id number]) Special Tests Shoulder Special Tests Passive ER Rotator Cuff Test Results positive right IR/Horizontal ADD Impingement Test Results positive right Drop Arm Rotator Cuff Test Results positive right PT-OP-M Strength Start: 02/05/18 08:08 Freq: Status: Active Protocol: Document 07/15/18 09:00 [facility] (Rec: 07/17/18 16:36 [facility] [id number]) Shoulder Strength Shoulder Manual Muscle Testing Right Reason Not Measured Pain Comments severity of pain Left Reason Not Measured WFL PT-OP-Q Treatments Start: 02/05/18 08:08 Freq: Status: Active Protocol: Document 07/18/18 09:00 [facility] (Rec: 07/18/18 13:30 [facility] [id number]) Therapeutic Exercises Sitting Exercises 4 Sitting Exercise Name cervical retraction Reps/Minutes 5x Standing Exercises 2 Standing Exercise Name row, shoulder ext, ER Equipment Used L1 theraband Comments verbal and manual cues for scapular stabiization Manual Therapy Treatment Soft Tissue Mobilization 2 Body Location luisa UT, bilateral c/s, upper/ mid thoracic Mobilization Type Strumming Intensity/Depth Moderate Body Position Sitting Self-Care/Home Management Treatment Education Patient Education Posture Other Education correction of postural alignment, with manual and verbal cues; use of wall for tactile feedback with postural isometric PT-OP-R Modalities Start: 02/05/18 08:08 Freq: Status: Active Protocol: Document 07/18/18 09:00 [facility] (Rec: 07/18/18 13:30 [facility] [id number]) Electric Stimulation Electric Stimulation Interferential Current (IFC) Body Location luisa c/s and upper thoracic spine Patient Position Hooklying Combined With Heat/Cold Hot Pack Ultrasound Therapy Treatment upper/mid thoracic paraspinals Treatment Duration (minutes) 8 Patient Position Sitting Coupling Medium Ultrasound Gel Mode Setting Continuous Duty Cycle 100% Intensity Setting (w/cm2) 1.4 PT-OP-T Assessment and Plan Start: 02/05/18 08:08 Freq: Status: Active Protocol: Document 07/18/18 09:00 [facility] (Rec: 07/18/18 13:30 [facility] [id number]) Physical Therapy Assessment Rehab Potential Rehabilitation Potential Good Evaluation Complexity Number of Personal Factors/Comorbidities 3 or More Number of Body Systems Impaired 3 Clinical Presentation at Evaluation Unstable Impairments Impairments Functional Activities Pain Posture ROM Soft Tissue Mobility Goals Three Impairment Pain Short Term Goal (STG) Decrease pain by 50% (goal progress; not constant or as severe per patient) STG Duration 6 wks Senior Living Goal (LTG) Pain decreased by 75% (goal progress) LTG Duration 12 wks Two Impairment function: UE quickdash score 70% Short Term Goal (STG) Decrease score to 50 (goal progress; can now put on bra and do some reaching without severe pain) STG Duration 6 wks Liability Claims Manager Goal (LTG) Decrease score to 20 (goal progress) LTG Duration 12 wks One Impairment unable to reach overhead, out to side, or behind her back d/ t pain Short Term Goal (STG) Patient will be able to resume 50% of her normal activities using right UE (goal progress as above) STG Duration 6 wks Senior Living Goal (LTG) Patient will be able to return to all prior daily activities using right UE with minimal to no pain (goal progress) LTG Duration 12 wks Progress Towards Goals Progress Towards Goals Slow Progress due to Medical Issues Progress Comments Good tolerance for PT today. Palpable trigger points bilateral rhomboids. Patient demonstrated improved understanding of postural correction after further education today. Feel postural habits highly contributory to shoulder, neck , and thoracic pain. No iontophoresis today due to emphasis on thoracic spine and postural correction today. Assessment Summary Assessment Patient Physical Therapy Plan Frequency and Duration Frequency of Treatment 2x/Week Duration of Treatment 8 wks Plan of Care Start Date 07/15/18 Plan of Care End Date 10/15/18 Therapeutic Interventions Therapeutic Interventions Home Exercise Program Manual Therapy Patient/Caregiver Education Self-Care/Home Management Taping Therapeutic Activities Therapeutic Exercises Modalities Electric Stimulation Hot Packs Infrared Therapy Iontophoresis Ultrasound Next Visit Focus/Plan Next Note Type Treatment Note Next Visit Plan Add iontophoresis if indicated . Progress postural correction exercises.
--- NOTE | 2018-07-29 16:39 | PT.OTN ---
Current Diagnoses Pain in right shoulder (07/29/18) Torticollis (07/29/18) Cervicalgia (07/29/18) Unspecified disorder of synovium and tendon, right shoulder (07/29/18) Physical Therapy Treatment Note PT-OP-A Visit Information Start: 02/05/18 08:08 Freq: Status: Active Protocol: Document 07/29/18 09:03 [facility] (Rec: 07/29/18 16:38 [facility] [id number]) Out-Patient Physical Therapy Visit Information Visit Information Visit Type Treatment Note Visit Start Time 09:03 Visit Stop Time 10:01 Total Visit Minutes 58 Visit Number 17 Number of NETWORKING ENGINEER Visits 0 Evaluation Information Evaluation Date 02/05/18 PT-OP-B Current Condition Start: 02/05/18 08:08 Freq: Status: Active Protocol: Document 07/15/18 09:00 [facility] (Rec: 07/15/18 09:53 [facility] [id number]) Current Condition History of Current Condition Onset Date December 2017 Current Complaints bilateral neck pain, luisa shoulder pain right worse than left History of Current Condition Patient reports hasn't been to PT for a couple months due to PT department scheduling error which erased all her scheduled appointments; returns today reporting increase in neck and shoulder pain since last seen. Reports recent injury to neck after spending several hours looking at ipad with head rotated and bent, next morning felt explosion in neck, with persistant neck pain x 10 days . Some better since that time but pain persists. Increased stress over past week due to the of a couple pets. Pain in neck 8/10 at worst when looking up, mild pain when not looking up. Shoulder pain persists especially when attempting to reach overhead or out to side, reaching behind her back is some better . Compliant to HEP, doing cardiac rehab, but modified for shoulder; below shoulder level exercises. Shoulder pain exacerbated easily. Treatment Goals Patient/Caregiver Goals Decrease neck and shoulder pain PT-OP-C Subjective Start: 02/05/18 08:08 Freq: Status: Active Protocol: Document 07/29/18 09:03 [facility] (Rec: 07/29/18 16:38 [facility] [id number]) OP-PT Subjective Patient Comments Patient Comments Patient reports much better after PT, but pain increased to high level today. PT-OP-E Functional Tests Start: 02/05/18 08:08 Freq: Status: Active Protocol: Document 07/15/18 09:00 [facility] (Rec: 07/17/18 16:36 [facility] [id number]) Functional Tests Apley's Scratch Test Action 1: The subject is instructed to touch the opposite shoulder with his/her hand. This motion checks Glenohumeral adduction, internal rotation , horizontal adduction and scapular protraction Action 2: The subject is instructed to place his/her arm overhead and reach behind the neck to touch his/her upper back. This motion checks Glenohumeral abduction, external rotation and scapular upward rotation and elevation. Action 3: The subject puts his/her hand on the lower back and reaches upward as far as possible. This motion checks glenohumeral adduction, internal rotation and scapular retraction with downward rotation Action 1- Left posterior shoulder Action 1- Right anterior shoulder Action 2- Left T2 Action 2- Right C2 Action 3- Left T7 Action 3- Right T10 PT-OP-F Manual Assessment Start: 02/05/18 08:08 Freq: Status: Active Protocol: Document 02/05/18 09:16 [facility] (Rec: 02/05/18 09:24 [facility] [id number]) Manual Assessments Soft Tissue Assessment Soft Tissue Mobility Assessment Moderate palpable tightness bilateral UT and levator scap right greater than left PT-OP-J Posture/Palpation/Skin Start: 02/05/18 08:08 Freq: Status: Active Protocol: Document 07/15/18 09:00 [facility] (Rec: 07/17/18 16:36 [facility] [id number]) Posture Evaluation Position Sitting Head/C-Spine Posture Forward Head T-Spine Posture Increased Kyphosis Shoulder Posture (L) Rounded (R) Rounded Scapula Posture (L) Protracted (R) Protracted Arm Posture (R) Internally Rotated PT-OP-K Range of Motion Start: 02/05/18 08:08 Freq: Status: Active Protocol: Document 07/15/18 09:00 [facility] (Rec: 07/17/18 16:36 [facility] [id number]) Cervical Spine Range of Motion Cervical Spine Active Flexion 50 Extension 30 Rotation Left 40 Rotation Right 40 Lateral Flexion Left 20 Lateral Flexion Right 20 ROM Limitations Pain Shoulder Goniometric Range of Motion Shoulder Measured in Degrees Right Shoulder ROM WFL No Testing Position Sitting Flexion 140 Extension 15 Abduction 120 Horizontal Abduction 95 Horizontal Adduction 20 External Rotation at 45 degrees 25 Abduction Left Shoulder ROM WFL Yes Testing Position Sitting Flexion 165 Extension 20 Abduction 150 Horizontal Abduction 170 Horizontal Adduction 45 External Rotation at 45 degrees 75 Abduction PT-OP-L Special Tests Start: 02/05/18 08:08 Freq: Status: Active Protocol: Document 02/05/18 09:16 [facility] (Rec: 02/05/18 09:24 [facility] [id number]) Special Tests Shoulder Special Tests Passive ER Rotator Cuff Test Results positive right IR/Horizontal ADD Impingement Test Results positive right Drop Arm Rotator Cuff Test Results positive right PT-OP-M Strength Start: 02/05/18 08:08 Freq: Status: Active Protocol: Document 07/15/18 09:00 [facility] (Rec: 07/17/18 16:36 [facility] [id number]) Shoulder Strength Shoulder Manual Muscle Testing Right Reason Not Measured Pain Comments severity of pain Left Reason Not Measured WFL PT-OP-Q Treatments Start: 02/05/18 08:08 Freq: Status: Active Protocol: Document 07/29/18 09:03 [facility] (Rec: 07/29/18 16:38 [facility] [id number]) Cardio Equipment Recumbent Stepper (Sci-Fit) Duration (Minutes) 5 Resistance 1.0 Therapeutic Exercises Supine Exercises 5 Supine Exercise Name manual pec stretch Sitting Exercises shoulder rolls Reps/Minutes 10x manual pec stretch Reps/Minutes 2x 30 4 Sitting Exercise Name cervical retraction Standing Exercises 2 Comments deferred to to pain Manual Therapy Treatment Soft Tissue Mobilization 2 Body Location luisa UT, bilateral c/s, upper/ mid thoracic Mobilization Type Strumming Intensity/Depth Moderate Body Position Sitting PT-OP-R Modalities Start: 02/05/18 08:08 Freq: Status: Active Protocol: Document 07/29/18 09:03 [facility] (Rec: 07/29/18 16:38 [facility] [id number]) Electric Stimulation Electric Stimulation Interferential Current (IFC) Body Location luisa mid thoracic spine Patient Position Hooklying Combined With Heat/Cold Hot Pack Iontophoresis Treatment mid thoracic spine T6-8 Treatment Medication Dexamethasone (-) Medication Amount (mL) (ml) 1 Medication Dosage 4 mg/ml Treatment Polarity Negative to Negative Treatment Duration (minutes) 3 Patient Tolerance Good Ultrasound Therapy Treatment upper/mid thoracic paraspinals Treatment Duration (minutes) 8 Patient Position Sitting Coupling Medium Ultrasound Gel Mode Setting Continuous Duty Cycle 100% Intensity Setting (w/cm2) 1.4 PT-OP-T Assessment and Plan Start: 02/05/18 08:08 Freq: Status: Active Protocol: Document 07/29/18 09:03 [facility] (Rec: 07/29/18 16:38 [facility] [id number]) Physical Therapy Assessment Goals Three Impairment Pain Short Term Goal (STG) Decrease pain by 50% (goal progress; not constant or as severe per patient) STG Duration 6 wks Usp Goal (LTG) Pain decreased by 75% (goal progress) LTG Duration 12 wks Two Impairment function: UE quickdash score 70% Short Term Goal (STG) Decrease score to 50 (goal progress; can now put on bra and do some reaching without severe pain) STG Duration 6 wks Usp Goal (LTG) Decrease score to 20 (goal progress) LTG Duration 12 wks One Impairment unable to reach overhead, out to side, or behind her back d/ t pain Short Term Goal (STG) Patient will be able to resume 50% of her normal activities using right UE (goal progress as above) STG Duration 6 wks Usp Goal (LTG) Patient will be able to return to all prior daily activities using right UE with minimal to no pain (goal progress) LTG Duration 12 wks Progress Towards Goals Progress Comments Decreased pain after therapy but pain easily exacerbated and increases again. Postural correction fatiguing for patient. Assessment Summary Assessment Suspect some patient activities in cardiac rehab may be contributing to her thoracic pain. Physical Therapy Plan Frequency and Duration Frequency of Treatment 2x/Week Duration of Treatment 8 wks Plan of Care Start Date 07/15/18 Plan of Care End Date 10/15/18 Therapeutic Interventions Therapeutic Interventions Home Exercise Program Manual Therapy Patient/Caregiver Education Self-Care/Home Management Taping Therapeutic Activities Therapeutic Exercises Modalities Electric Stimulation Hot Packs Infrared Therapy Iontophoresis Ultrasound Next Visit Focus/Plan Next Note Type Treatment Note Next Visit Plan Discuss exercises performed in cardiac rehab to see if possibly contributory to pain as patient attending cardiac rehab in between PT appointments. Continue to progress with postural correction exercises, modalities and manual therapy as needed for pain management.
--- NOTE | 2018-07-29 17:06 | PT.OTN ---
Current Diagnoses Pain in right shoulder (07/29/18) Torticollis (07/29/18) Cervicalgia (07/29/18) Unspecified disorder of synovium and tendon, right shoulder (07/29/18) Physical Therapy Treatment Note PT-OP-A Visit Information Start: 02/05/18 08:08 Freq: Status: Active Protocol: Document 07/25/18 09:00 [facility] (Rec: 07/29/18 16:38 [facility] [id number]) Out-Patient Physical Therapy Visit Information Visit Information Visit Type Treatment Note Visit Start Time 09:03 Visit Stop Time 10:01 Total Visit Minutes 58 Visit Number 17 Number of MEDICAL AUTHORIZATION SPECIALIST Visits 0 Evaluation Information Evaluation Date 02/05/18 PT-OP-B Current Condition Start: 02/05/18 08:08 Freq: Status: Active Protocol: Document 07/15/18 09:00 [facility] (Rec: 07/15/18 09:53 [facility] [id number]) Current Condition History of Current Condition Onset Date December 2017 Current Complaints bilateral neck pain, luisa shoulder pain right worse than left History of Current Condition Patient reports hasn't been to PT for a couple months due to PT department scheduling error which erased all her scheduled appointments; returns today reporting increase in neck and shoulder pain since last seen. Reports recent injury to neck after spending several hours looking at ipad with head rotated and bent, next morning felt explosion in neck, with persistant neck pain x 10 days . Some better since that time but pain persists. Increased stress over past week due to the of a couple pets. Pain in neck 8/10 at worst when looking up, mild pain when not looking up. Shoulder pain persists especially when attempting to reach overhead or out to side, reaching behind her back is some better . Compliant to HEP, doing cardiac rehab, but modified for shoulder; below shoulder level exercises. Shoulder pain exacerbated easily. Treatment Goals Patient/Caregiver Goals Decrease neck and shoulder pain PT-OP-C Subjective Start: 02/05/18 08:08 Freq: Status: Active Protocol: Document 07/25/18 09:00 [facility] (Rec: 07/29/18 16:38 [facility] [id number]) OP-PT Subjective Patient Comments Patient Comments Patient reports much better after PT, but pain increased to high level today. PT-OP-E Functional Tests Start: 02/05/18 08:08 Freq: Status: Active Protocol: Document 07/15/18 09:00 [facility] (Rec: 07/17/18 16:36 [facility] [id number]) Functional Tests Apley's Scratch Test Action 1: The subject is instructed to touch the opposite shoulder with his/her hand. This motion checks Glenohumeral adduction, internal rotation , horizontal adduction and scapular protraction Action 2: The subject is instructed to place his/her arm overhead and reach behind the neck to touch his/her upper back. This motion checks Glenohumeral abduction, external rotation and scapular upward rotation and elevation. Action 3: The subject puts his/her hand on the lower back and reaches upward as far as possible. This motion checks glenohumeral adduction, internal rotation and scapular retraction with downward rotation Action 1- Left posterior shoulder Action 1- Right anterior shoulder Action 2- Left T2 Action 2- Right C2 Action 3- Left T7 Action 3- Right T10 PT-OP-F Manual Assessment Start: 02/05/18 08:08 Freq: Status: Active Protocol: Document 02/05/18 09:16 [facility] (Rec: 02/05/18 09:24 [facility] [id number]) Manual Assessments Soft Tissue Assessment Soft Tissue Mobility Assessment Moderate palpable tightness bilateral UT and levator scap right greater than left PT-OP-J Posture/Palpation/Skin Start: 02/05/18 08:08 Freq: Status: Active Protocol: Document 07/15/18 09:00 [facility] (Rec: 07/17/18 16:36 [facility] [id number]) Posture Evaluation Position Sitting Head/C-Spine Posture Forward Head T-Spine Posture Increased Kyphosis Shoulder Posture (L) Rounded (R) Rounded Scapula Posture (L) Protracted (R) Protracted Arm Posture (R) Internally Rotated PT-OP-K Range of Motion Start: 02/05/18 08:08 Freq: Status: Active Protocol: Document 07/15/18 09:00 [facility] (Rec: 07/17/18 16:36 [facility] [id number]) Cervical Spine Range of Motion Cervical Spine Active Flexion 50 Extension 30 Rotation Left 40 Rotation Right 40 Lateral Flexion Left 20 Lateral Flexion Right 20 ROM Limitations Pain Shoulder Goniometric Range of Motion Shoulder Measured in Degrees Right Shoulder ROM WFL No Testing Position Sitting Flexion 140 Extension 15 Abduction 120 Horizontal Abduction 95 Horizontal Adduction 20 External Rotation at 45 degrees 25 Abduction Left Shoulder ROM WFL Yes Testing Position Sitting Flexion 165 Extension 20 Abduction 150 Horizontal Abduction 170 Horizontal Adduction 45 External Rotation at 45 degrees 75 Abduction PT-OP-L Special Tests Start: 02/05/18 08:08 Freq: Status: Active Protocol: Document 02/05/18 09:16 [facility] (Rec: 02/05/18 09:24 [facility] [id number]) Special Tests Shoulder Special Tests Passive ER Rotator Cuff Test Results positive right IR/Horizontal ADD Impingement Test Results positive right Drop Arm Rotator Cuff Test Results positive right PT-OP-M Strength Start: 02/05/18 08:08 Freq: Status: Active Protocol: Document 07/15/18 09:00 [facility] (Rec: 07/17/18 16:36 [facility] [id number]) Shoulder Strength Shoulder Manual Muscle Testing Right Reason Not Measured Pain Comments severity of pain Left Reason Not Measured WFL PT-OP-Q Treatments Start: 02/05/18 08:08 Freq: Status: Active Protocol: Document 07/25/18 09:00 [facility] (Rec: 07/29/18 16:38 [facility] [id number]) Cardio Equipment Recumbent Stepper (Sci-Fit) Duration (Minutes) 5 Resistance 1.0 Therapeutic Exercises Supine Exercises 5 Supine Exercise Name manual pec stretch Sitting Exercises shoulder rolls Reps/Minutes 10x manual pec stretch Reps/Minutes 2x 30 4 Sitting Exercise Name cervical retraction Standing Exercises 2 Comments deferred to to pain Manual Therapy Treatment Soft Tissue Mobilization 2 Body Location luisa UT, bilateral c/s, upper/ mid thoracic Mobilization Type Strumming Intensity/Depth Moderate Body Position Sitting PT-OP-R Modalities Start: 02/05/18 08:08 Freq: Status: Active Protocol: Document 07/25/18 09:00 [facility] (Rec: 07/29/18 16:38 [facility] [id number]) Electric Stimulation Electric Stimulation Interferential Current (IFC) Body Location luisa mid thoracic spine Patient Position Hooklying Combined With Heat/Cold Hot Pack Iontophoresis Treatment mid thoracic spine T6-8 Treatment Medication Dexamethasone (-) Medication Amount (mL) (ml) 1 Medication Dosage 4 mg/ml Treatment Polarity Negative to Negative Treatment Duration (minutes) 3 Patient Tolerance Good Ultrasound Therapy Treatment upper/mid thoracic paraspinals Treatment Duration (minutes) 8 Patient Position Sitting Coupling Medium Ultrasound Gel Mode Setting Continuous Duty Cycle 100% Intensity Setting (w/cm2) 1.4 PT-OP-T Assessment and Plan Start: 02/05/18 08:08 Freq: Status: Active Protocol: Document 07/25/18 09:00 [facility] (Rec: 07/29/18 16:38 [facility] [id number]) Physical Therapy Assessment Goals Three Impairment Pain Short Term Goal (STG) Decrease pain by 50% (goal progress; not constant or as severe per patient) STG Duration 6 wks Mcfp Goal (LTG) Pain decreased by 75% (goal progress) LTG Duration 12 wks Two Impairment function: UE quickdash score 70% Short Term Goal (STG) Decrease score to 50 (goal progress; can now put on bra and do some reaching without severe pain) STG Duration 6 wks Mcfp Goal (LTG) Decrease score to 20 (goal progress) LTG Duration 12 wks One Impairment unable to reach overhead, out to side, or behind her back d/ t pain Short Term Goal (STG) Patient will be able to resume 50% of her normal activities using right UE (goal progress as above) STG Duration 6 wks Mcfp Goal (LTG) Patient will be able to return to all prior daily activities using right UE with minimal to no pain (goal progress) LTG Duration 12 wks Progress Towards Goals Progress Comments Decreased pain after therapy but pain easily exacerbated and increases again. Postural correction fatiguing for patient. Assessment Summary Assessment Suspect some patient activities in cardiac rehab may be contributing to her thoracic pain. Physical Therapy Plan Frequency and Duration Frequency of Treatment 2x/Week Duration of Treatment 8 wks Plan of Care Start Date 07/15/18 Plan of Care End Date 10/15/18 Therapeutic Interventions Therapeutic Interventions Home Exercise Program Manual Therapy Patient/Caregiver Education Self-Care/Home Management Taping Therapeutic Activities Therapeutic Exercises Modalities Electric Stimulation Hot Packs Infrared Therapy Iontophoresis Ultrasound Next Visit Focus/Plan Next Note Type Treatment Note Next Visit Plan Discuss exercises performed in cardiac rehab to see if possibly contributory to pain as patient attending cardiac rehab in between PT appointments. Continue to progress with postural correction exercises, modalities and manual therapy as needed for pain management.
--- NOTE | 2018-07-29 17:16 | PT.OTN ---
Current Diagnoses Pain in right shoulder (07/29/18) Torticollis (07/29/18) Cervicalgia (07/29/18) Unspecified disorder of synovium and tendon, right shoulder (07/29/18) Physical Therapy Treatment Note PT-OP-A Visit Information Start: 02/05/18 08:08 Freq: Status: Active Protocol: Document 07/29/18 09:03 [facility] (Rec: 07/29/18 17:16 [facility] [id number]) Out-Patient Physical Therapy Visit Information Visit Information Visit Type Treatment Note Visit Start Time 09:03 Visit Stop Time 10:01 Total Visit Minutes 58 Visit Number 18 Number of RENT AND HOUSING INVESTIGATOR Visits 0 Evaluation Information Evaluation Date 02/05/18 PT-OP-B Current Condition Start: 02/05/18 08:08 Freq: Status: Active Protocol: Document 07/15/18 09:00 [facility] (Rec: 07/15/18 09:53 [facility] [id number]) Current Condition History of Current Condition Onset Date December 2017 Current Complaints bilateral neck pain, luisa shoulder pain right worse than left History of Current Condition Patient reports hasn't been to PT for a couple months due to PT department scheduling error which erased all her scheduled appointments; returns today reporting increase in neck and shoulder pain since last seen. Reports recent injury to neck after spending several hours looking at ipad with head rotated and bent, next morning felt explosion in neck, with persistant neck pain x 10 days . Some better since that time but pain persists. Increased stress over past week due to the of a couple pets. Pain in neck 8/10 at worst when looking up, mild pain when not looking up. Shoulder pain persists especially when attempting to reach overhead or out to side, reaching behind her back is some better . Compliant to HEP, doing cardiac rehab, but modified for shoulder; below shoulder level exercises. Shoulder pain exacerbated easily. Treatment Goals Patient/Caregiver Goals Decrease neck and shoulder pain PT-OP-C Subjective Start: 02/05/18 08:08 Freq: Status: Active Protocol: Document 07/29/18 09:03 [facility] (Rec: 07/29/18 17:16 [facility] [id number]) OP-PT Subjective Patient Comments Patient Comments Again decreased pain after PT, but resumed after about 1 day . OP-PT Pain Assessment Pain Assessment Grid Paper Pain Assessment Grid Completed Yes PT-OP-E Functional Tests Start: 02/05/18 08:08 Freq: Status: Active Protocol: Document 07/15/18 09:00 [facility] (Rec: 07/17/18 16:36 [facility] [id number]) Functional Tests Apley's Scratch Test Action 1: The subject is instructed to touch the opposite shoulder with his/her hand. This motion checks Glenohumeral adduction, internal rotation , horizontal adduction and scapular protraction Action 2: The subject is instructed to place his/her arm overhead and reach behind the neck to touch his/her upper back. This motion checks Glenohumeral abduction, external rotation and scapular upward rotation and elevation. Action 3: The subject puts his/her hand on the lower back and reaches upward as far as possible. This motion checks glenohumeral adduction, internal rotation and scapular retraction with downward rotation Action 1- Left posterior shoulder Action 1- Right anterior shoulder Action 2- Left T2 Action 2- Right C2 Action 3- Left T7 Action 3- Right T10 PT-OP-F Manual Assessment Start: 02/05/18 08:08 Freq: Status: Active Protocol: Document 02/05/18 09:16 [facility] (Rec: 02/05/18 09:24 [facility] [id number]) Manual Assessments Soft Tissue Assessment Soft Tissue Mobility Assessment Moderate palpable tightness bilateral UT and levator scap right greater than left PT-OP-J Posture/Palpation/Skin Start: 02/05/18 08:08 Freq: Status: Active Protocol: Document 07/15/18 09:00 [facility] (Rec: 07/17/18 16:36 [facility] [id number]) Posture Evaluation Position Sitting Head/C-Spine Posture Forward Head T-Spine Posture Increased Kyphosis Shoulder Posture (L) Rounded (R) Rounded Scapula Posture (L) Protracted (R) Protracted Arm Posture (R) Internally Rotated PT-OP-K Range of Motion Start: 02/05/18 08:08 Freq: Status: Active Protocol: Document 07/15/18 09:00 [facility] (Rec: 07/17/18 16:36 [facility] [id number]) Cervical Spine Range of Motion Cervical Spine Active Flexion 50 Extension 30 Rotation Left 40 Rotation Right 40 Lateral Flexion Left 20 Lateral Flexion Right 20 ROM Limitations Pain Shoulder Goniometric Range of Motion Shoulder Measured in Degrees Right Shoulder ROM WFL No Testing Position Sitting Flexion 140 Extension 15 Abduction 120 Horizontal Abduction 95 Horizontal Adduction 20 External Rotation at 45 degrees 25 Abduction Left Shoulder ROM WFL Yes Testing Position Sitting Flexion 165 Extension 20 Abduction 150 Horizontal Abduction 170 Horizontal Adduction 45 External Rotation at 45 degrees 75 Abduction PT-OP-L Special Tests Start: 02/05/18 08:08 Freq: Status: Active Protocol: Document 02/05/18 09:16 [facility] (Rec: 02/05/18 09:24 [facility] [id number]) Special Tests Shoulder Special Tests Passive ER Rotator Cuff Test Results positive right IR/Horizontal ADD Impingement Test Results positive right Drop Arm Rotator Cuff Test Results positive right PT-OP-M Strength Start: 02/05/18 08:08 Freq: Status: Active Protocol: Document 07/15/18 09:00 [facility] (Rec: 07/17/18 16:36 [facility] [id number]) Shoulder Strength Shoulder Manual Muscle Testing Right Reason Not Measured Pain Comments severity of pain Left Reason Not Measured WFL PT-OP-Q Treatments Start: 02/05/18 08:08 Freq: Status: Active Protocol: Document 07/29/18 09:03 [facility] (Rec: 07/29/18 17:16 [facility] [id number]) Cardio Equipment Recumbent Stepper (Sci-Fit) Duration (Minutes) 5 Resistance 1.0 Therapeutic Exercises Supine Exercises 5 Supine Exercise Name manual pec stretch 2 Supine Exercise Name shoulder IR/ER AAROM Sitting Exercises shoulder rolls Reps/Minutes 10x manual pec stretch Reps/Minutes 2x 30 4 Sitting Exercise Name cervical retraction Standing Exercises 2 Comments deferred to to pain Manual Therapy Treatment Soft Tissue Mobilization 2 Body Location luisa UT, bilateral c/s, upper/ mid thoracic Mobilization Type Strumming Intensity/Depth Moderate Body Position Sitting PT-OP-R Modalities Start: 02/05/18 08:08 Freq: Status: Active Protocol: Document 07/29/18 09:03 [facility] (Rec: 07/29/18 17:16 [facility] [id number]) Electric Stimulation Electric Stimulation Interferential Current (IFC) Body Location luisa mid thoracic spine Patient Position Hooklying Combined With Heat/Cold Hot Pack Iontophoresis Treatment mid thoracic spine T6-8 Treatment Medication Dexamethasone (-) Medication Amount (mL) (ml) 1 Medication Dosage 4 mg/ml Treatment Polarity Negative to Negative Treatment Duration (minutes) 3 Patient Tolerance Good Ultrasound Therapy Treatment upper/mid thoracic paraspinals Treatment Duration (minutes) 8 Patient Position Sitting Coupling Medium Ultrasound Gel Mode Setting Continuous Duty Cycle 100% Intensity Setting (w/cm2) 1.4 PT-OP-T Assessment and Plan Start: 02/05/18 08:08 Freq: Status: Active Protocol: Document 07/29/18 09:03 [facility] (Rec: 07/29/18 17:16 [facility] [id number]) Physical Therapy Assessment Rehab Potential Rehabilitation Potential Good Evaluation Complexity Number of Personal Factors/Comorbidities 3 or More Number of Body Systems Impaired 3 Clinical Presentation at Evaluation Unstable Impairments Impairments Functional Activities Pain Posture ROM Soft Tissue Mobility Goals Three Impairment Pain Short Term Goal (STG) Decrease pain by 50% (goal progress; not constant or as severe per patient) STG Duration 6 wks Optical Goods Worker Goal (LTG) Pain decreased by 75% (goal progress) LTG Duration 12 wks Two Impairment function: UE quickdash score 70% Short Term Goal (STG) Decrease score to 50 (goal progress; can now put on bra and do some reaching without severe pain) STG Duration 6 wks Longterm Goal (LTG) Decrease score to 20 (goal progress) LTG Duration 12 wks One Impairment unable to reach overhead, out to side, or behind her back d/ t pain Short Term Goal (STG) Patient will be able to resume 50% of her normal activities using right UE (goal progress as above) STG Duration 6 wks Longterm Goal (LTG) Patient will be able to return to all prior daily activities using right UE with minimal to no pain (goal progress) LTG Duration 12 wks Progress Towards Goals Progress Comments Decreased pain after therapy but pain easily exacerbated and increases again. Postural correction fatiguing for patient. Assessment Summary Assessment Suspect some patient activities in cardiac rehab may be contributing to her thoracic pain. Physical Therapy Plan Frequency and Duration Frequency of Treatment 2x/Week Duration of Treatment 3 months Plan of Care Start Date 07/15/18 Plan of Care End Date 10/15/18 Therapeutic Interventions Therapeutic Interventions Home Exercise Program Manual Therapy Patient/Caregiver Education Self-Care/Home Management Taping Therapeutic Activities Therapeutic Exercises Modalities Electric Stimulation Hot Packs Infrared Therapy Iontophoresis Ultrasound Next Visit Focus/Plan Next Note Type Treatment Note Next Visit Plan Progress with postural correction, patient education, manual therapy and modalities for pain management and improved function.
--- NOTE | 2018-08-01 10:10 | PT.OTN ---
Current Diagnoses Pain in right shoulder (08/01/18) Torticollis (08/01/18) Cervicalgia (08/01/18) Unspecified disorder of synovium and tendon, right shoulder (08/01/18) Physical Therapy Treatment Note PT-OP-A Visit Information Start: 02/05/18 08:08 Freq: Status: Active Protocol: Document 08/01/18 09:00 [facility] (Rec: 08/01/18 10:10 [facility] [id number]) Out-Patient Physical Therapy Visit Information Visit Information Visit Type Treatment Note Visit Start Time 09:01 Visit Stop Time 09:59 Total Visit Minutes 58 Visit Number 19 Number of RADARMAN Visits 0 Evaluation Information Evaluation Date 02/05/18 PT-OP-B Current Condition Start: 02/05/18 08:08 Freq: Status: Active Protocol: Document 07/15/18 09:00 [facility] (Rec: 07/15/18 09:53 [facility] [id number]) Current Condition History of Current Condition Onset Date December 2017 Current Complaints bilateral neck pain, [place] shoulder pain right worse than left History of Current Condition Patient reports hasn't been to PT for a couple months due to PT department scheduling error which erased all her scheduled appointments; returns today reporting increase in neck and shoulder pain since last seen. Reports recent injury to neck after spending several hours looking at ipad with head rotated and bent, next morning felt explosion in neck, with persistant neck pain x 10 days . Some better since that time but pain persists. Increased stress over past week due to the of a couple pets. Pain in neck 8/10 at worst when looking up, mild pain when not looking up. Shoulder pain persists especially when attempting to reach overhead or out to side, reaching behind her back is some better . Compliant to HEP, doing cardiac rehab, but modified for shoulder; below shoulder level exercises. Shoulder pain exacerbated easily. Treatment Goals Patient/Caregiver Goals Decrease neck and shoulder pain PT-OP-C Subjective Start: 02/05/18 08:08 Freq: Status: Active Protocol: Document 08/01/18 09:00 [facility] (Rec: 08/01/18 10:10 [facility] [id number]) OP-PT Subjective Patient Comments Patient Comments Reports compliance to HEP, frustrated with her habits of rounding her shoulders and dropping her head. PT-OP-E Functional Tests Start: 02/05/18 08:08 Freq: Status: Active Protocol: Document 07/15/18 09:00 [facility] (Rec: 07/17/18 16:36 [facility] [id number]) Functional Tests Apley's Scratch Test Action 1: The subject is instructed to touch the opposite shoulder with his/her hand. This motion checks Glenohumeral adduction, internal rotation , horizontal adduction and scapular protraction Action 2: The subject is instructed to place his/her arm overhead and reach behind the neck to touch his/her upper back. This motion checks Glenohumeral abduction, external rotation and scapular upward rotation and elevation. Action 3: The subject puts his/her hand on the lower back and reaches upward as far as possible. This motion checks glenohumeral adduction, internal rotation and scapular retraction with downward rotation Action 1- Left posterior shoulder Action 1- Right anterior shoulder Action 2- Left T2 Action 2- Right C2 Action 3- Left T7 Action 3- Right T10 PT-OP-F Manual Assessment Start: 02/05/18 08:08 Freq: Status: Active Protocol: Document 02/05/18 09:16 [facility] (Rec: 02/05/18 09:24 [facility] [id number]) Manual Assessments Soft Tissue Assessment Soft Tissue Mobility Assessment Moderate palpable tightness bilateral UT and levator scap right greater than left PT-OP-J Posture/Palpation/Skin Start: 02/05/18 08:08 Freq: Status: Active Protocol: Document 07/15/18 09:00 [facility] (Rec: 07/17/18 16:36 [facility] [id number]) Posture Evaluation Position Sitting Head/C-Spine Posture Forward Head T-Spine Posture Increased Kyphosis Shoulder Posture (L) Rounded (R) Rounded Scapula Posture (L) Protracted (R) Protracted Arm Posture (R) Internally Rotated PT-OP-K Range of Motion Start: 02/05/18 08:08 Freq: Status: Active Protocol: Document 07/15/18 09:00 [facility] (Rec: 07/17/18 16:36 [facility] [id number]) Cervical Spine Range of Motion Cervical Spine Active Flexion 50 Extension 30 Rotation Left 40 Rotation Right 40 Lateral Flexion Left 20 Lateral Flexion Right 20 ROM Limitations Pain Shoulder Goniometric Range of Motion Shoulder Measured in Degrees Right Shoulder ROM WFL No Testing Position Sitting Flexion 140 Extension 15 Abduction 120 Horizontal Abduction 95 Horizontal Adduction 20 External Rotation at 45 degrees 25 Abduction Left Shoulder ROM WFL Yes Testing Position Sitting Flexion 165 Extension 20 Abduction 150 Horizontal Abduction 170 Horizontal Adduction 45 External Rotation at 45 degrees 75 Abduction PT-OP-L Special Tests Start: 02/05/18 08:08 Freq: Status: Active Protocol: Document 02/05/18 09:16 [facility] (Rec: 02/05/18 09:24 [facility] [id number]) Special Tests Shoulder Special Tests Passive ER Rotator Cuff Test Results positive right IR/Horizontal ADD Impingement Test Results positive right Drop Arm Rotator Cuff Test Results positive right PT-OP-M Strength Start: 02/05/18 08:08 Freq: Status: Active Protocol: Document 07/15/18 09:00 [facility] (Rec: 07/17/18 16:36 [facility] [id number]) Shoulder Strength Shoulder Manual Muscle Testing Right Reason Not Measured Pain Comments severity of pain Left Reason Not Measured WFL PT-OP-Q Treatments Start: 02/05/18 08:08 Freq: Status: Active Protocol: Document 08/01/18 09:00 [facility] (Rec: 08/01/18 10:10 [facility] [id number]) Therapeutic Exercises Sitting Exercises shoulder rolls Reps/Minutes 10x manual pec stretch Reps/Minutes 2x 30 4 Sitting Exercise Name cervical retraction Standing Exercises postural isometric at wall Reps/Minutes 6x 2 Standing Exercise Name row, shoulder ext, ER Equipment Used L1 theraband Manual Therapy Treatment Soft Tissue Mobilization 2 Body Location luisa UT, bilateral c/s, upper/ mid thoracic Mobilization Type Strumming Intensity/Depth Moderate Body Position Sitting PT-OP-R Modalities Start: 02/05/18 08:08 Freq: Status: Active Protocol: Document 08/01/18 09:00 [facility] (Rec: 08/01/18 10:10 [facility] [id number]) Electric Stimulation Electric Stimulation Interferential Current (IFC) Body Location luisa mid thoracic spine Patient Position Hooklying Combined With Heat/Cold Hot Pack Comments MH to c/s as well Iontophoresis Treatment Right Shoulder Treatment Medication Dexamethasone (-) Medication Amount (mL) (ml) 1 Medication Dosage 4 mg/ml Treatment Polarity Negative to Negative Active Electrode Placement right RC insertion Treatment Duration (minutes) 3 Patient Tolerance Good Comment Treatment Comment not done to thor spine due to skin irritation Ultrasound Therapy Treatment upper/mid thoracic paraspinals Treatment Duration (minutes) 8 Patient Position Sitting Coupling Medium Ultrasound Gel Mode Setting Continuous Duty Cycle 100% Intensity Setting (w/cm2) 1.4 PT-OP-T Assessment and Plan Start: 02/05/18 08:08 Freq: Status: Active Protocol: Document 08/01/18 09:00 [facility] (Rec: 08/01/18 10:10 [facility] [id number]) Physical Therapy Assessment Rehab Potential Rehabilitation Potential Good Goals Three Impairment Pain Short Term Goal (STG) Decrease pain by 50% (goal progress; not constant or as severe per patient) STG Duration 6 wks Web Art Director Goal (LTG) Pain decreased by 75% (goal progress) LTG Duration 12 wks Two Impairment function: UE quickdash score 70% Short Term Goal (STG) Decrease score to 50 (goal progress; can now put on bra and do some reaching without severe pain) STG Duration 6 wks Fpc Goal (LTG) Decrease score to 20 (goal progress) LTG Duration 12 wks One Impairment unable to reach overhead, out to side, or behind her back d/ t pain Short Term Goal (STG) Patient will be able to resume 50% of her normal activities using right UE (goal progress as above) STG Duration 6 wks Web Art Director Goal (LTG) Patient will be able to return to all prior daily activities using right UE with minimal to no pain (goal progress) LTG Duration 12 wks Physical Therapy Plan Frequency and Duration Frequency of Treatment 2x/Week Duration of Treatment 3 months Plan of Care Start Date 07/15/18 Plan of Care End Date 10/15/18 Therapeutic Interventions Therapeutic Interventions Home Exercise Program Manual Therapy Patient/Caregiver Education Self-Care/Home Management Taping Therapeutic Activities Therapeutic Exercises Modalities Electric Stimulation Hot Packs Infrared Therapy Iontophoresis Ultrasound Next Visit Focus/Plan Next Note Type Treatment Note Next Visit Plan Review HEP, modify as indicated. Continue PT with emphasis on postural correction, strengthening, soft tissue mobilization, in management.
--- NOTE | 2018-08-05 14:27 | PT.OTN ---
Current Diagnoses Pain in right shoulder (08/05/18) Torticollis (08/05/18) Cervicalgia (08/05/18) Unspecified disorder of synovium and tendon, right shoulder (08/05/18) Physical Therapy Treatment Note PT-OP-A Visit Information Start: 02/05/18 08:08 Freq: Status: Active Protocol: Document 08/02/18 09:11 [facility] (Rec: 08/05/18 14:26 [facility] [id number]) Out-Patient Physical Therapy Visit Information Visit Information Visit Type Progress Note Visit Start Time 09:11 Visit Stop Time 09:56 Total Visit Minutes 45 Visit Number 20 Number of SPECIAL [employer]CES OFFICER Visits 0 Evaluation Information Evaluation Date 02/05/18 PT-OP-B Current Condition Start: 02/05/18 08:08 Freq: Status: Active Protocol: Document 07/15/18 09:00 [facility] (Rec: 07/15/18 09:53 [facility] [id number]) Current Condition History of Current Condition Onset Date December 2017 Current Complaints bilateral neck pain, luisa shoulder pain right worse than left History of Current Condition Patient reports hasn't been to PT for a couple months due to PT department scheduling error which erased all her scheduled appointments; returns today reporting increase in neck and shoulder pain since last seen. Reports recent injury to neck after spending several hours looking at ipad with head rotated and bent, next morning felt explosion in neck, with persistant neck pain x 10 days . Some better since that time but pain persists. Increased stress over past week due to the of a couple pets. Pain in neck 8/10 at worst when looking up, mild pain when not looking up. Shoulder pain persists especially when attempting to reach overhead or out to side, reaching behind her back is some better . Compliant to HEP, doing cardiac rehab, but modified for shoulder; below shoulder level exercises. Shoulder pain exacerbated easily. Treatment Goals Patient/Caregiver Goals Decrease neck and shoulder pain PT-OP-C Subjective Start: 02/05/18 08:08 Freq: Status: Active Protocol: Document 08/02/18 09:11 [facility] (Rec: 08/05/18 14:26 [facility] [id number]) OP-PT Subjective Patient Comments Patient Comments Patient reports several hours of no pain after PT, then gradually resumes. PT-OP-E Functional Tests Start: 02/05/18 08:08 Freq: Status: Active Protocol: Document 07/15/18 09:00 [facility] (Rec: 07/17/18 16:36 [facility] [id number]) Functional Tests Apley's Scratch Test Action 1: The subject is instructed to touch the opposite shoulder with his/her hand. This motion checks Glenohumeral adduction, internal rotation , horizontal adduction and scapular protraction Action 2: The subject is instructed to place his/her arm overhead and reach behind the neck to touch his/her upper back. This motion checks Glenohumeral abduction, external rotation and scapular upward rotation and elevation. Action 3: The subject puts his/her hand on the lower back and reaches upward as far as possible. This motion checks glenohumeral adduction, internal rotation and scapular retraction with downward rotation Action 1- Left posterior shoulder Action 1- Right anterior shoulder Action 2- Left T2 Action 2- Right C2 Action 3- Left T7 Action 3- Right T10 PT-OP-F Manual Assessment Start: 02/05/18 08:08 Freq: Status: Active Protocol: Document 02/05/18 09:16 [facility] (Rec: 02/05/18 09:24 [facility] [id number]) Manual Assessments Soft Tissue Assessment Soft Tissue Mobility Assessment Moderate palpable tightness bilateral UT and levator scap right greater than left PT-OP-J Posture/Palpation/Skin Start: 02/05/18 08:08 Freq: Status: Active Protocol: Document 07/15/18 09:00 [facility] (Rec: 07/17/18 16:36 [facility] [id number]) Posture Evaluation Position Sitting Head/C-Spine Posture Forward Head T-Spine Posture Increased Kyphosis Shoulder Posture (L) Rounded (R) Rounded Scapula Posture (L) Protracted (R) Protracted Arm Posture (R) Internally Rotated PT-OP-K Range of Motion Start: 02/05/18 08:08 Freq: Status: Active Protocol: Document 07/15/18 09:00 [facility] (Rec: 07/17/18 16:36 [facility] [id number]) Cervical Spine Range of Motion Cervical Spine Active Flexion 50 Extension 30 Rotation Left 40 Rotation Right 40 Lateral Flexion Left 20 Lateral Flexion Right 20 ROM Limitations Pain Shoulder Goniometric Range of Motion Shoulder Measured in Degrees Right Shoulder ROM WFL No Testing Position Sitting Flexion 140 Extension 15 Abduction 120 Horizontal Abduction 95 Horizontal Adduction 20 External Rotation at 45 degrees 25 Abduction Left Shoulder ROM WFL Yes Testing Position Sitting Flexion 165 Extension 20 Abduction 150 Horizontal Abduction 170 Horizontal Adduction 45 External Rotation at 45 degrees 75 Abduction PT-OP-L Special Tests Start: 02/05/18 08:08 Freq: Status: Active Protocol: Document 02/05/18 09:16 [facility] (Rec: 02/05/18 09:24 [facility] [id number]) Special Tests Shoulder Special Tests Passive ER Rotator Cuff Test Results positive right IR/Horizontal ADD Impingement Test Results positive right Drop Arm Rotator Cuff Test Results positive right PT-OP-M Strength Start: 02/05/18 08:08 Freq: Status: Active Protocol: Document 07/15/18 09:00 [facility] (Rec: 07/17/18 16:36 [facility] [id number]) Shoulder Strength Shoulder Manual Muscle Testing Right Reason Not Measured Pain Comments severity of pain Left Reason Not Measured WFL PT-OP-Q Treatments Start: 02/05/18 08:08 Freq: Status: Active Protocol: Document 08/02/18 09:11 [facility] (Rec: 08/05/18 14:26 [facility] [id number]) Therapeutic Exercises Sitting Exercises shoulder rolls Reps/Minutes 10x manual pec stretch Reps/Minutes 2x 30 4 Sitting Exercise Name cervical retraction Standing Exercises postural isometric at wall Comments verbal review 2 Comments not done due to time constraints; pt late due to MD appt Manual Therapy Treatment Soft Tissue Mobilization 2 Body Location luisa UT, bilateral c/s, upper/ mid thoracic Mobilization Type Strumming Intensity/Depth Moderate Body Position Sitting Self-Care/Home Management Treatment Education Patient Education Posture Other Education sitting, standing Activities Self-Care/Home Management Activities cues for postural positioning while traveling. PT-OP-R Modalities Start: 02/05/18 08:08 Freq: Status: Active Protocol: Document 08/02/18 09:11 [facility] (Rec: 08/05/18 14:26 [facility] [id number]) Electric Stimulation Electric Stimulation Interferential Current (IFC) Body Location luisa mid thoracic spine Patient Position Hooklying Combined With Heat/Cold Hot Pack Comments MH to c/s as well Iontophoresis Treatment mid thoracic spine T6-8 Treatment Medication Dexamethasone (-) Medication Amount (mL) (ml) 1 Medication Dosage 4 mg/ml Treatment Polarity Negative to Negative Treatment Duration (minutes) 3 Patient Tolerance Good Ultrasound Therapy Treatment upper/mid thoracic paraspinals Treatment Duration (minutes) 8 Patient Position Sitting Coupling Medium Ultrasound Gel Mode Setting Continuous Duty Cycle 100% Intensity Setting (w/cm2) 1.4 PT-OP-T Assessment and Plan Start: 02/05/18 08:08 Freq: Status: Active Protocol: Document 08/02/18 09:11 [facility] (Rec: 08/05/18 14:26 [facility] [id number]) Physical Therapy Assessment Goals Three Impairment Pain Short Term Goal (STG) Decrease pain by 50% (goal progress; not constant or as severe per patient) STG Duration 6 wks Half-Way Goal (LTG) Pain decreased by 75% (goal progress) LTG Duration 12 wks Two Impairment function: UE quickdash score 70% Short Term Goal (STG) Decrease score to 50 (goal progress; can now put on bra and do some reaching without severe pain) STG Duration 6 wks Javascript Application Developer Goal (LTG) Decrease score to 20 (goal progress) LTG Duration 12 wks One Impairment unable to reach overhead, out to side, or behind her back d/ t pain Short Term Goal (STG) Patient will be able to resume 50% of her normal activities using right UE (goal progress as above) STG Duration 6 wks Javascript Application Developer Goal (LTG) Patient will be able to return to all prior daily activities using right UE with minimal to no pain (goal progress) LTG Duration 12 wks Progress Towards Goals Progress Comments patient requires moderate cues for posture, poor body awareness for when she is rounding her shoulders forward or dropping her head which both appear highly contributory to pain. Assessment Summary Assessment Feel patient needs further PT especially related to postural education using multiple methods of cues. Physical Therapy Plan Frequency and Duration Frequency of Treatment 2x/Week Duration of Treatment 3 months Plan of Care Start Date 07/15/18 Plan of Care End Date 10/15/18 Therapeutic Interventions Therapeutic Interventions Home Exercise Program Manual Therapy Patient/Caregiver Education Self-Care/Home Management Taping Therapeutic Activities Therapeutic Exercises Modalities Electric Stimulation Hot Packs Infrared Therapy Iontophoresis Ultrasound Next Visit Focus/Plan Next Note Type Treatment Note Next Visit Plan Patient to be gone 1 wk, then PT gone x 1 wk. Will resume PT in 2 1/2 wks. Take photos of patient posture for reference and patient education.
--- NOTE | 2018-08-09 16:30 | PT.OTN ---
Current Diagnoses Pain in right shoulder (08/05/18) Torticollis (08/05/18) Cervicalgia (08/05/18) Unspecified disorder of synovium and tendon, right shoulder (08/05/18) Physical Therapy Treatment Note PT-OP-A Visit Information Start: 02/05/18 08:08 Freq: Status: Active Protocol: Document 08/02/18 09:11 [facility] (Rec: 08/05/18 14:26 [facility] [id number]) Out-Patient Physical Therapy Visit Information Visit Information Visit Type Progress Note Visit Start Time 09:11 Visit Stop Time 09:56 Total Visit Minutes 45 Visit Number 20 Number of LEAD MANUFACTURING ENGINEER Visits 0 Evaluation Information Evaluation Date 02/05/18 PT-OP-B Current Condition Start: 02/05/18 08:08 Freq: Status: Active Protocol: Document 07/15/18 09:00 [facility] (Rec: 07/15/18 09:53 [facility] [id number]) Current Condition History of Current Condition Onset Date December 2017 Current Complaints bilateral neck pain, luisa shoulder pain right worse than left History of Current Condition Patient reports hasn't been to PT for a couple months due to PT department scheduling error which erased all her scheduled appointments; returns today reporting increase in neck and shoulder pain since last seen. Reports recent injury to neck after spending several hours looking at ipad with head rotated and bent, next morning felt explosion in neck, with persistant neck pain x 10 days . Some better since that time but pain persists. Increased stress over past week due to the of a couple pets. Pain in neck 8/10 at worst when looking up, mild pain when not looking up. Shoulder pain persists especially when attempting to reach overhead or out to side, reaching behind her back is some better . Compliant to HEP, doing cardiac rehab, but modified for shoulder; below shoulder level exercises. Shoulder pain exacerbated easily. Treatment Goals Patient/Caregiver Goals Decrease neck and shoulder pain PT-OP-C Subjective Start: 02/05/18 08:08 Freq: Status: Active Protocol: Document 08/05/18 09:11 [facility] (Rec: 08/09/18 16:29 [facility] [id number]) OP-PT Subjective Patient Comments Patient Comments Patient worried about her pain worsening while on vacation without PT. PT-OP-E Functional Tests Start: 02/05/18 08:08 Freq: Status: Active Protocol: Document 07/15/18 09:00 [facility] (Rec: 07/17/18 16:36 [facility] [id number]) Functional Tests Apley's Scratch Test Action 1: The subject is instructed to touch the opposite shoulder with his/her hand. This motion checks Glenohumeral adduction, internal rotation , horizontal adduction and scapular protraction Action 2: The subject is instructed to place his/her arm overhead and reach behind the neck to touch his/her upper back. This motion checks Glenohumeral abduction, external rotation and scapular upward rotation and elevation. Action 3: The subject puts his/her hand on the lower back and reaches upward as far as possible. This motion checks glenohumeral adduction, internal rotation and scapular retraction with downward rotation Action 1- Left posterior shoulder Action 1- Right anterior shoulder Action 2- Left T2 Action 2- Right C2 Action 3- Left T7 Action 3- Right T10 PT-OP-F Manual Assessment Start: 02/05/18 08:08 Freq: Status: Active Protocol: Document 02/05/18 09:16 [facility] (Rec: 02/05/18 09:24 [facility] [id number]) Manual Assessments Soft Tissue Assessment Soft Tissue Mobility Assessment Moderate palpable tightness bilateral UT and levator scap right greater than left PT-OP-J Posture/Palpation/Skin Start: 02/05/18 08:08 Freq: Status: Active Protocol: Document 07/15/18 09:00 [facility] (Rec: 07/17/18 16:36 [facility] [id number]) Posture Evaluation Position Sitting Head/C-Spine Posture Forward Head T-Spine Posture Increased Kyphosis Shoulder Posture (L) Rounded (R) Rounded Scapula Posture (L) Protracted (R) Protracted Arm Posture (R) Internally Rotated PT-OP-K Range of Motion Start: 02/05/18 08:08 Freq: Status: Active Protocol: Document 07/15/18 09:00 [facility] (Rec: 07/17/18 16:36 [facility] [id number]) Cervical Spine Range of Motion Cervical Spine Active Flexion 50 Extension 30 Rotation Left 40 Rotation Right 40 Lateral Flexion Left 20 Lateral Flexion Right 20 ROM Limitations Pain Shoulder Goniometric Range of Motion Shoulder Measured in Degrees Right Shoulder ROM WFL No Testing Position Sitting Flexion 140 Extension 15 Abduction 120 Horizontal Abduction 95 Horizontal Adduction 20 External Rotation at 45 degrees 25 Abduction Left Shoulder ROM WFL Yes Testing Position Sitting Flexion 165 Extension 20 Abduction 150 Horizontal Abduction 170 Horizontal Adduction 45 External Rotation at 45 degrees 75 Abduction PT-OP-L Special Tests Start: 02/05/18 08:08 Freq: Status: Active Protocol: Document 02/05/18 09:16 [facility] (Rec: 02/05/18 09:24 [facility] [id number]) Special Tests Shoulder Special Tests Passive ER Rotator Cuff Test Results positive right IR/Horizontal ADD Impingement Test Results positive right Drop Arm Rotator Cuff Test Results positive right PT-OP-M Strength Start: 02/05/18 08:08 Freq: Status: Active Protocol: Document 07/15/18 09:00 [facility] (Rec: 07/17/18 16:36 [facility] [id number]) Shoulder Strength Shoulder Manual Muscle Testing Right Reason Not Measured Pain Comments severity of pain Left Reason Not Measured WFL PT-OP-Q Treatments Start: 02/05/18 08:08 Freq: Status: Active Protocol: Document 08/05/18 09:11 [facility] (Rec: 08/09/18 16:29 [facility] [id number]) Therapeutic Exercises Supine Exercises 5 Supine Exercise Name manual pec stretch Sitting Exercises shoulder rolls Reps/Minutes 10x manual pec stretch Reps/Minutes 2x 30 4 Sitting Exercise Name cervical retraction 2 Sitting Exercise Name shoulder shrug and scap squeeze Reps/Minutes 5 Standing Exercises postural isometric at wall Reps/Minutes 5x 2 Standing Exercise Name row, shoulder ext, ER Equipment Used L1 theraband Manual Therapy Treatment Soft Tissue Mobilization 2 Body Location luisa UT, bilateral c/s, upper/ mid thoracic Mobilization Type Strumming Intensity/Depth Moderate Body Position Sitting Self-Care/Home Management Treatment Education Patient Education Posture Other Education sitting, standing Activities Self-Care/Home Management Activities cues for postural positioning while traveling. PT-OP-R Modalities Start: 02/05/18 08:08 Freq: Status: Active Protocol: Document 08/05/18 09:11 [facility] (Rec: 08/09/18 16:29 [facility] [id number]) Electric Stimulation Electric Stimulation Interferential Current (IFC) Body Location luisa mid thoracic spine Patient Position Hooklying Combined With Heat/Cold Hot Pack Comments MH to c/s as well Iontophoresis Treatment mid thoracic spine T6-8 Treatment Medication Dexamethasone (-) Medication Amount (mL) (ml) 1 Medication Dosage 4 mg/ml Treatment Polarity Negative to Negative Treatment Duration (minutes) 3 Patient Tolerance Good Ultrasound Therapy Treatment upper/mid thoracic paraspinals Treatment Duration (minutes) 8 Patient Position Sitting Coupling Medium Ultrasound Gel Mode Setting Continuous Duty Cycle 100% Intensity Setting (w/cm2) 1.4 PT-OP-T Assessment and Plan Start: 02/05/18 08:08 Freq: Status: Active Protocol: Document 08/05/18 09:11 [facility] (Rec: 08/09/18 16:29 [facility] [id number]) Physical Therapy Assessment Goals Three Impairment Pain Short Term Goal (STG) Decrease pain by 50% (goal progress; not constant or as severe per patient) STG Duration 6 wks Corporate Tax Manager Goal (LTG) Pain decreased by 75% (goal progress) LTG Duration 12 wks Two Impairment function: UE quickdash score 70% Short Term Goal (STG) Decrease score to 50 (goal progress; can now put on bra and do some reaching without severe pain) STG Duration 6 wks Residential Goal (LTG) Decrease score to 20 (goal progress) LTG Duration 12 wks One Impairment unable to reach overhead, out to side, or behind her back d/ t pain Short Term Goal (STG) Patient will be able to resume 50% of her normal activities using right UE (goal progress as above) STG Duration 6 wks Residential Goal (LTG) Patient will be able to return to all prior daily activities using right UE with minimal to no pain (goal progress) LTG Duration 12 wks Progress Towards Goals Progress Comments Improving postural awareness Assessment Summary Assessment Feel patient would benefit from thoracic mobilizations but was reluctant to try today due to travel plans, concern over modification increasing symptoms. Physical Therapy Plan Frequency and Duration Frequency of Treatment 2x/Week Duration of Treatment 3 months Plan of Care Start Date 07/15/18 Plan of Care End Date 10/15/18 Therapeutic Interventions Therapeutic Interventions Home Exercise Program Manual Therapy Patient/Caregiver Education Self-Care/Home Management Taping Therapeutic Activities Therapeutic Exercises Modalities Electric Stimulation Hot Packs Infrared Therapy Iontophoresis Ultrasound Next Visit Focus/Plan Next Note Type Treatment Note Next Visit Plan Possible trial thoracic mobilization prone and sidelying, scapular mobilizations.
--- NOTE | 2018-08-27 09:59 | PT.OTN ---
Current Diagnoses Pain in right shoulder (08/26/18) Torticollis (08/26/18) Cervicalgia (08/26/18) Unspecified disorder of synovium and tendon, right shoulder (08/26/18) Physical Therapy Treatment Note PT-OP-A Visit Information Start: 02/05/18 08:08 Freq: Status: Active Protocol: Document 08/02/18 09:11 [facility] (Rec: 08/05/18 14:26 [facility] [id number]) Out-Patient Physical Therapy Visit Information Visit Information Visit Type Progress Note Visit Start Time 09:11 Visit Stop Time 09:56 Total Visit Minutes 45 Visit Number 20 Number of BUSINESS OPERATIONS ANALYST Visits 0 Evaluation Information Evaluation Date 02/05/18 PT-OP-B Current Condition Start: 02/05/18 08:08 Freq: Status: Active Protocol: Document 07/15/18 09:00 [facility] (Rec: 07/15/18 09:53 [facility] [id number]) Current Condition History of Current Condition Onset Date December 2017 Current Complaints bilateral neck pain, luisa shoulder pain right worse than left History of Current Condition Patient reports hasn't been to PT for a couple months due to PT department scheduling error which erased all her scheduled appointments; returns today reporting increase in neck and shoulder pain since last seen. Reports recent injury to neck after spending several hours looking at ipad with head rotated and bent, next morning felt explosion in neck, with persistant neck pain x 10 days . Some better since that time but pain persists. Increased stress over past week due to the of a couple pets. Pain in neck 8/10 at worst when looking up, mild pain when not looking up. Shoulder pain persists especially when attempting to reach overhead or out to side, reaching behind her back is some better . Compliant to HEP, doing cardiac rehab, but modified for shoulder; below shoulder level exercises. Shoulder pain exacerbated easily. Treatment Goals Patient/Caregiver Goals Decrease neck and shoulder pain PT-OP-C Subjective Start: 02/05/18 08:08 Freq: Status: Active Protocol: Document 08/26/18 09:00 [facility] (Rec: 08/27/18 09:58 [facility] [id number]) OP-PT Subjective Patient Comments Patient Comments Patient reports she worked hard on her posture while on vacation. Pain better for the rest of the day after last session PT-OP-E Functional Tests Start: 02/05/18 08:08 Freq: Status: Active Protocol: Document 07/15/18 09:00 [facility] (Rec: 07/17/18 16:36 [facility] [id number]) Functional Tests Apley's Scratch Test Action 1: The subject is instructed to touch the opposite shoulder with his/her hand. This motion checks Glenohumeral adduction, internal rotation , horizontal adduction and scapular protraction Action 2: The subject is instructed to place his/her arm overhead and reach behind the neck to touch his/her upper back. This motion checks Glenohumeral abduction, external rotation and scapular upward rotation and elevation. Action 3: The subject puts his/her hand on the lower back and reaches upward as far as possible. This motion checks glenohumeral adduction, internal rotation and scapular retraction with downward rotation Action 1- Left posterior shoulder Action 1- Right anterior shoulder Action 2- Left T2 Action 2- Right C2 Action 3- Left T7 Action 3- Right T10 PT-OP-F Manual Assessment Start: 02/05/18 08:08 Freq: Status: Active Protocol: Document 02/05/18 09:16 [facility] (Rec: 02/05/18 09:24 [facility] [id number]) Manual Assessments Soft Tissue Assessment Soft Tissue Mobility Assessment Moderate palpable tightness bilateral UT and levator scap right greater than left PT-OP-J Posture/Palpation/Skin Start: 02/05/18 08:08 Freq: Status: Active Protocol: Document 07/15/18 09:00 [facility] (Rec: 07/17/18 16:36 [facility] [id number]) Posture Evaluation Position Sitting Head/C-Spine Posture Forward Head T-Spine Posture Increased Kyphosis Shoulder Posture (L) Rounded (R) Rounded Scapula Posture (L) Protracted (R) Protracted Arm Posture (R) Internally Rotated PT-OP-K Range of Motion Start: 02/05/18 08:08 Freq: Status: Active Protocol: Document 07/15/18 09:00 [facility] (Rec: 07/17/18 16:36 [facility] [id number]) Cervical Spine Range of Motion Cervical Spine Active Flexion 50 Extension 30 Rotation Left 40 Rotation Right 40 Lateral Flexion Left 20 Lateral Flexion Right 20 ROM Limitations Pain Shoulder Goniometric Range of Motion Shoulder Measured in Degrees Right Shoulder ROM WFL No Testing Position Sitting Flexion 140 Extension 15 Abduction 120 Horizontal Abduction 95 Horizontal Adduction 20 External Rotation at 45 degrees 25 Abduction Left Shoulder ROM WFL Yes Testing Position Sitting Flexion 165 Extension 20 Abduction 150 Horizontal Abduction 170 Horizontal Adduction 45 External Rotation at 45 degrees 75 Abduction PT-OP-L Special Tests Start: 02/05/18 08:08 Freq: Status: Active Protocol: Document 02/05/18 09:16 [facility] (Rec: 02/05/18 09:24 [facility] [id number]) Special Tests Shoulder Special Tests Passive ER Rotator Cuff Test Results positive right IR/Horizontal ADD Impingement Test Results positive right Drop Arm Rotator Cuff Test Results positive right PT-OP-M Strength Start: 02/05/18 08:08 Freq: Status: Active Protocol: Document 07/15/18 09:00 [facility] (Rec: 07/17/18 16:36 [facility] [id number]) Shoulder Strength Shoulder Manual Muscle Testing Right Reason Not Measured Pain Comments severity of pain Left Reason Not Measured WFL PT-OP-Q Treatments Start: 02/05/18 08:08 Freq: Status: Active Protocol: Document 08/26/18 09:00 [facility] (Rec: 08/27/18 09:58 [facility] [id number]) Therapeutic Exercises Supine Exercises 5 Supine Exercise Name manual pec stretch Sitting Exercises shoulder rolls Reps/Minutes 10x manual pec stretch Reps/Minutes 2x 30 4 Sitting Exercise Name cervical retraction Standing Exercises 2 Standing Exercise Name row, shoulder ext, ER Equipment Used L1 theraband Manual Therapy Treatment Soft Tissue Mobilization 2 Body Location luisa UT, bilateral c/s, upper/ mid thoracic Mobilization Type Strumming Intensity/Depth Moderate Body Position Sitting Self-Care/Home Management Treatment Education Patient Education Posture Other Education sitting, standing Activities Self-Care/Home Management Activities cues for postural positioning while traveling. PT-OP-R Modalities Start: 02/05/18 08:08 Freq: Status: Active Protocol: Document 08/26/18 09:00 [facility] (Rec: 08/27/18 09:58 [facility] [id number]) Electric Stimulation Electric Stimulation Interferential Current (IFC) Body Location luisa mid thoracic spine Patient Position Hooklying Combined With Heat/Cold Hot Pack Comments MH to c/s as well Iontophoresis Treatment mid thoracic spine T6-8 Treatment Medication Dexamethasone (-) Medication Amount (mL) (ml) 1 Medication Dosage 4 mg/ml Treatment Polarity Negative to Negative Treatment Duration (minutes) 3 Patient Tolerance Good Ultrasound Therapy Treatment upper/mid thoracic paraspinals Treatment Duration (minutes) 8 Patient Position Sitting Coupling Medium Ultrasound Gel Mode Setting Continuous Duty Cycle 100% Intensity Setting (w/cm2) 1.4 PT-OP-T Assessment and Plan Start: 02/05/18 08:08 Freq: Status: Active Protocol: Document 08/26/18 09:00 [facility] (Rec: 08/27/18 08:59 [facility] [id number]) Physical Therapy Assessment Goals Three Impairment Pain Short Term Goal (STG) Decrease pain by 50% (goal progress; not constant or as severe per patient) STG Duration 6 wks Bush Regenerator Goal (LTG) Pain decreased by 75% (goal progress) LTG Duration 12 wks Two Impairment function: UE quickdash score 70% Short Term Goal (STG) Decrease score to 50 (goal progress; can now put on bra and do some reaching without severe pain) STG Duration 6 wks [facility] Regener[facility] Goal (LTG) Decrease score to 20 (goal progress) LTG Duration 12 wks One Impairment unable to reach overhead, out to side, or behind her back d/ t pain Short Term Goal (STG) Patient will be able to resume 50% of her normal activities using right UE (goal progress as above) STG Duration 6 wks Nursing Home Goal (LTG) Patient will be able to return to all prior daily activities using right UE with minimal to no pain (goal progress) LTG Duration 12 wks Assessment Summary Assessment Patient being referred to pain clinic. No further imaging ordered at this time. Decreased pain for rest of the day after PT, patient demonstrating improved postural awareness and correction. Signs and symptoms indicative of arthrtitic changes in spine. Physical Therapy Plan Frequency and Duration Frequency of Treatment 2x/Week Duration of Treatment 3 months Plan of Care Start Date 07/15/18 Plan of Care End Date 10/15/18 Therapeutic Interventions Therapeutic Interventions Home Exercise Program Manual Therapy Patient/Caregiver Education Self-Care/Home Management Taping Therapeutic Activities Therapeutic Exercises Modalities Electric Stimulation Hot Packs Infrared Therapy Iontophoresis Ultrasound Next Visit Focus/Plan Next Note Type Treatment Note Next Visit Plan Possible trial thoracic mobilization prone and sidelying, scapular mobilizations.
--- NOTE | 2018-09-01 10:41 | PT.OTN ---
Current Diagnoses Pain in right shoulder (08/29/18) Torticollis (08/29/18) Cervicalgia (08/29/18) Unspecified disorder of synovium and tendon, right shoulder (08/29/18) Physical Therapy Treatment Note PT-OP-A Visit Information Start: 02/05/18 08:08 Freq: Status: Active Protocol: Document 08/29/18 09:10 [facility] (Rec: 09/01/18 10:41 [facility] [id number]) Out-Patient Physical Therapy Visit Information Visit Information Visit Type Treatment Note Visit Start Time 09:10 Visit Stop Time 09:55 Total Visit Minutes 48 Visit Number 21 Number of PUBLIC INFORMATION OFFICER Visits 0 Evaluation Information Evaluation Date 02/05/18 PT-OP-B Current Condition Start: 02/05/18 08:08 Freq: Status: Active Protocol: Document 07/15/18 09:00 [facility] (Rec: 07/15/18 09:53 [facility] [id number]) Current Condition History of Current Condition Onset Date December 2017 Current Complaints bilateral neck pain, luisa shoulder pain right worse than left History of Current Condition Patient reports hasn't been to PT for a couple months due to PT department scheduling error which erased all her scheduled appointments; returns today reporting increase in neck and shoulder pain since last seen. Reports recent injury to neck after spending several hours looking at ipad with head rotated and bent, next morning felt explosion in neck, with persistant neck pain x 10 days . Some better since that time but pain persists. Increased stress over past week due to the of a couple pets. Pain in neck 8/10 at worst when looking up, mild pain when not looking up. Shoulder pain persists especially when attempting to reach overhead or out to side, reaching behind her back is some better . Compliant to HEP, doing cardiac rehab, but modified for shoulder; below shoulder level exercises. Shoulder pain exacerbated easily. Treatment Goals Patient/Caregiver Goals Decrease neck and shoulder pain PT-OP-C Subjective Start: 02/05/18 08:08 Freq: Status: Active Protocol: Document 08/29/18 09:10 [facility] (Rec: 09/01/18 10:39 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 Will take off for modalities today. Patient very upset about a friend of hers who just underwent surgery and is not doing well; patient has suffered multiple losses over the past year. PT-OP-E Functional Tests Start: 02/05/18 08:08 Freq: Status: Active Protocol: Document 07/15/18 09:00 [facility] (Rec: 07/17/18 16:36 [facility] [id number]) Functional Tests Apley's Scratch Test Action 1: The subject is instructed to touch the opposite shoulder with his/her hand. This motion checks Glenohumeral adduction, internal rotation , horizontal adduction and scapular protraction Action 2: The subject is instructed to place his/her arm overhead and reach behind the neck to touch his/her upper back. This motion checks Glenohumeral abduction, external rotation and scapular upward rotation and elevation. Action 3: The subject puts his/her hand on the lower back and reaches upward as far as possible. This motion checks glenohumeral adduction, internal rotation and scapular retraction with downward rotation Action 1- Left posterior shoulder Action 1- Right anterior shoulder Action 2- Left T2 Action 2- Right C2 Action 3- Left T7 Action 3- Right T10 PT-OP-F Manual Assessment Start: 02/05/18 08:08 Freq: Status: Active Protocol: Document 02/05/18 09:16 [facility] (Rec: 02/05/18 09:24 [facility] [id number]) Manual Assessments Soft Tissue Assessment Soft Tissue Mobility Assessment Moderate palpable tightness bilateral UT and levator scap right greater than left PT-OP-J Posture/Palpation/Skin Start: 02/05/18 08:08 Freq: Status: Active Protocol: Document 07/15/18 09:00 [facility] (Rec: 07/17/18 16:36 [facility] [id number]) Posture Evaluation Position Sitting Head/C-Spine Posture Forward Head T-Spine Posture Increased Kyphosis Shoulder Posture (L) Rounded (R) Rounded Scapula Posture (L) Protracted (R) Protracted Arm Posture (R) Internally Rotated PT-OP-K Range of Motion Start: 02/05/18 08:08 Freq: Status: Active Protocol: Document 07/15/18 09:00 [facility] (Rec: 07/17/18 16:36 [facility] [id number]) Cervical Spine Range of Motion Cervical Spine Active Flexion 50 Extension 30 Rotation Left 40 Rotation Right 40 Lateral Flexion Left 20 Lateral Flexion Right 20 ROM Limitations Pain Shoulder Goniometric Range of Motion Shoulder Measured in Degrees Right Shoulder ROM WFL No Testing Position Sitting Flexion 140 Extension 15 Abduction 120 Horizontal Abduction 95 Horizontal Adduction 20 External Rotation at 45 degrees 25 Abduction Left Shoulder ROM WFL Yes Testing Position Sitting Flexion 165 Extension 20 Abduction 150 Horizontal Abduction 170 Horizontal Adduction 45 External Rotation at 45 degrees 75 Abduction PT-OP-L Special Tests Start: 02/05/18 08:08 Freq: Status: Active Protocol: Document 02/05/18 09:16 [facility] (Rec: 02/05/18 09:24 [facility] [id number]) Special Tests Shoulder Special Tests Passive ER Rotator Cuff Test Results positive right IR/Horizontal ADD Impingement Test Results positive right Drop Arm Rotator Cuff Test Results positive right PT-OP-M Strength Start: 02/05/18 08:08 Freq: Status: Active Protocol: Document 07/15/18 09:00 [facility] (Rec: 07/17/18 16:36 [facility] [id number]) Shoulder Strength Shoulder Manual Muscle Testing Right Reason Not Measured Pain Comments severity of pain Left Reason Not Measured WFL PT-OP-Q Treatments Start: 02/05/18 08:08 Freq: Status: Active Protocol: Document 08/29/18 09:10 [facility] (Rec: 09/01/18 10:39 [facility] [id number]) Manual Therapy Treatment Soft Tissue Mobilization 2 Body Location luisa UT, bilateral c/s, upper/ mid thoracic Mobilization Type Strumming Intensity/Depth Moderate Body Position Sitting Comments manual pec stretch Self-Care/Home Management Treatment Education Other Education use of loop through door for increased ease of using theraband at home for HEP PT-OP-R Modalities Start: 02/05/18 08:08 Freq: Status: Active Protocol: Document 08/29/18 09:10 [facility] (Rec: 09/01/18 10:39 [facility] [id number]) Electric Stimulation Electric Stimulation Interferential Current (IFC) Body Location luisa mid thoracic spine Patient Position Hooklying Combined With Heat/Cold Hot Pack Comments MH to c/s as well Iontophoresis Treatment mid thoracic spine T6-8 Treatment Medication Dexamethasone (-) Medication Amount (mL) (ml) 1 Medication Dosage 4 mg/ml Treatment Polarity Negative to Negative Treatment Duration (minutes) 3 Patient Tolerance Good Ultrasound Therapy Treatment upper/mid thoracic paraspinals Treatment Duration (minutes) 8 Patient Position Sitting Coupling Medium Ultrasound Gel Mode Setting Continuous Duty Cycle 100% Intensity Setting (w/cm2) 1.4 PT-OP-T Assessment and Plan Start: 02/05/18 08:08 Freq: Status: Active Protocol: Document 08/29/18 09:10 [facility] (Rec: 09/01/18 10:39 [facility] [id number]) Physical Therapy Assessment Goals Three Impairment Pain Short Term Goal (STG) Decrease pain by 50% (goal progress; not constant or as severe per patient) STG Duration 6 wks [facility] Goal (LTG) Pain decreased by 75% (goal progress) LTG Duration 12 wks Two Impairment function: UE quickdash score 70% Short Term Goal (STG) Decrease score to 50 (goal progress; can now put on bra and do some reaching without severe pain) STG Duration 6 wks Piece Worker Goal (LTG) Decrease score to 20 (goal progress) LTG Duration 12 wks One Impairment unable to reach overhead, out to side, or behind her back d/ t pain Short Term Goal (STG) Patient will be able to resume 50% of her normal activities using right UE (goal progress as above) STG Duration 6 wks Piece Worker Goal (LTG) Patient will be able to return to all prior daily activities using right UE with minimal to no pain (goal progress) LTG Duration 12 wks Progress Towards Goals Progress Comments Patient unwilling to do ther ex today; too upset about friend and continued pain, though consistently less pain after PT. Assessment Summary Assessment Unable to progress back to ther ex or other treatment including prone due to patient being upset Physical Therapy Plan Frequency and Duration Frequency of Treatment 2x/Week Duration of Treatment 3 months Plan of Care Start Date 07/15/18 Plan of Care End Date 10/15/18 Therapeutic Interventions Therapeutic Interventions Home Exercise Program Manual Therapy Patient/Caregiver Education Self-Care/Home Management Taping Therapeutic Activities Therapeutic Exercises Modalities Electric Stimulation Hot Packs Infrared Therapy Iontophoresis Ultrasound Next Visit Focus/Plan Next Note Type Treatment Note Next Visit Plan Possible trial thoracic mobilization prone and sidelying, scapular mobilizations.
--- NOTE | 2018-09-05 09:56 | PT.OTN ---
Current Diagnoses Pain in right shoulder (09/05/18) Torticollis (09/05/18) Cervicalgia (09/05/18) Unspecified disorder of synovium and tendon, right shoulder (09/05/18) Physical Therapy Treatment Note PT-OP-A Visit Information Start: 02/05/18 08:08 Freq: Status: Active Protocol: Document 09/05/18 09:47 [facility] (Rec: 09/05/18 09:56 [facility] [id number]) Out-Patient Physical Therapy Visit Information Visit Information Visit Type Treatment Note Visit Start Time 09:05 Visit Stop Time 09:53 Total Visit Minutes 48 Visit Number 22 Number of WAFER MACHINE OPERATOR Visits 0 Evaluation Information Evaluation Date 02/05/18 Precautions Precautions cardiac PT-OP-B Current Condition Start: 02/05/18 08:08 Freq: Status: Active Protocol: Document 07/15/18 09:00 [facility] (Rec: 07/15/18 09:53 [facility] [id number]) Current Condition History of Current Condition Onset Date December 2017 Current Complaints bilateral neck pain, luisa shoulder pain right worse than left History of Current Condition Patient reports hasn't been to PT for a couple months due to PT department scheduling error which erased all her scheduled appointments; returns today reporting increase in neck and shoulder pain since last seen. Reports recent injury to neck after spending several hours looking at ipad with head rotated and bent, next morning felt explosion in neck, with persistant neck pain x 10 days . Some better since that time but pain persists. Increased stress over past week due to the of a couple pets. Pain in neck 8/10 at worst when looking up, mild pain when not looking up. Shoulder pain persists especially when attempting to reach overhead or out to side, reaching behind her back is some better . Compliant to HEP, doing cardiac rehab, but modified for shoulder; below shoulder level exercises. Shoulder pain exacerbated easily. Treatment Goals Patient/Caregiver Goals Decrease neck and shoulder pain PT-OP-C Subjective Start: 02/05/18 08:08 Freq: Status: Active Protocol: Document 09/05/18 09:47 [facility] (Rec: 09/05/18 09:56 [facility] [id number]) OP-PT Subjective Patient Comments Patient Comments Willing to try prone pillow for ultrasound and manual treatment today as previously recommended but patient was uncertain. Difficult week due to ill friend, ill pet, more cardiac tests. Patient Reported Progress Improving PT-OP-E Functional Tests Start: 02/05/18 08:08 Freq: Status: Active Protocol: Document 07/15/18 09:00 [facility] (Rec: 07/17/18 16:36 [facility] [id number]) Functional Tests Apley's Scratch Test Action 1: The subject is instructed to touch the opposite shoulder with his/her hand. This motion checks Glenohumeral adduction, internal rotation , horizontal adduction and scapular protraction Action 2: The subject is instructed to place his/her arm overhead and reach behind the neck to touch his/her upper back. This motion checks Glenohumeral abduction, external rotation and scapular upward rotation and elevation. Action 3: The subject puts his/her hand on the lower back and reaches upward as far as possible. This motion checks glenohumeral adduction, internal rotation and scapular retraction with downward rotation Action 1- Left posterior shoulder Action 1- Right anterior shoulder Action 2- Left T2 Action 2- Right C2 Action 3- Left T7 Action 3- Right T10 PT-OP-F Manual Assessment Start: 02/05/18 08:08 Freq: Status: Active Protocol: Document 02/05/18 09:16 [facility] (Rec: 02/05/18 09:24 [facility] [id number]) Manual Assessments Soft Tissue Assessment Soft Tissue Mobility Assessment Moderate palpable tightness bilateral UT and levator scap right greater than left PT-OP-J Posture/Palpation/Skin Start: 02/05/18 08:08 Freq: Status: Active Protocol: Document 07/15/18 09:00 [facility] (Rec: 07/17/18 16:36 [facility] [id number]) Posture Evaluation Position Sitting Head/C-Spine Posture Forward Head T-Spine Posture Increased Kyphosis Shoulder Posture (L) Rounded (R) Rounded Scapula Posture (L) Protracted (R) Protracted Arm Posture (R) Internally Rotated PT-OP-K Range of Motion Start: 02/05/18 08:08 Freq: Status: Active Protocol: Document 07/15/18 09:00 [facility] (Rec: 07/17/18 16:36 [facility] [id number]) Cervical Spine Range of Motion Cervical Spine Active Flexion 50 Extension 30 Rotation Left 40 Rotation Right 40 Lateral Flexion Left 20 Lateral Flexion Right 20 ROM Limitations Pain Shoulder Goniometric Range of Motion Shoulder Measured in Degrees Right Shoulder ROM WFL No Testing Position Sitting Flexion 140 Extension 15 Abduction 120 Horizontal Abduction 95 Horizontal Adduction 20 External Rotation at 45 degrees 25 Abduction Left Shoulder ROM WFL Yes Testing Position Sitting Flexion 165 Extension 20 Abduction 150 Horizontal Abduction 170 Horizontal Adduction 45 External Rotation at 45 degrees 75 Abduction PT-OP-L Special Tests Start: 02/05/18 08:08 Freq: Status: Active Protocol: Document 02/05/18 09:16 [facility] (Rec: 02/05/18 09:24 [facility] [id number]) Special Tests Shoulder Special Tests Passive ER Rotator Cuff Test Results positive right IR/Horizontal ADD Impingement Test Results positive right Drop Arm Rotator Cuff Test Results positive right PT-OP-M Strength Start: 02/05/18 08:08 Freq: Status: Active Protocol: Document 07/15/18 09:00 [facility] (Rec: 07/17/18 16:36 [facility] [id number]) Shoulder Strength Shoulder Manual Muscle Testing Right Reason Not Measured Pain Comments severity of pain Left Reason Not Measured WFL PT-OP-Q Treatments Start: 02/05/18 08:08 Freq: Status: Active Protocol: Document 09/05/18 09:47 [facility] (Rec: 09/05/18 09:56 [facility] [id number]) Therapeutic Exercises Sitting Exercises shoulder rolls Reps/Minutes 10x manual pec stretch Reps/Minutes 2x 30 2 Sitting Exercise Name shoulder shrug and scap squeeze Reps/Minutes 5 Manual Therapy Treatment Soft Tissue Mobilization 2 Body Location luisa UT, bilateral c/s, upper/ mid thoracic Mobilization Type Myofascial Release Rolling Strumming Body Position Prone PT-OP-R Modalities Start: 02/05/18 08:08 Freq: Status: Active Protocol: Document 09/05/18 09:47 [facility] (Rec: 09/05/18 09:56 [facility] [id number]) Electric Stimulation Electric Stimulation Interferential Current (IFC) Body Location luisa mid thoracic spine Patient Position Hooklying Combined With Heat/Cold Hot Pack Comments MH to c/s as well Iontophoresis Treatment mid thoracic spine T6-8 Treatment Medication Dexamethasone (-) Medication Amount (mL) (ml) 1 Medication Dosage 4 mg/ml Treatment Polarity Negative to Negative Treatment Duration (minutes) 3 Patient Tolerance Good Ultrasound Therapy Treatment upper/mid thoracic paraspinals Treatment Duration (minutes) 8 Patient Position Sitting Coupling Medium Ultrasound Gel Mode Setting Continuous Duty Cycle 100% Intensity Setting (w/cm2) 1.4 PT-OP-T Assessment and Plan Start: 02/05/18 08:08 Freq: Status: Active Protocol: Document 09/05/18 09:47 [facility] (Rec: 09/05/18 09:56 [facility] [id number]) Physical Therapy Assessment Goals Three Impairment Pain Short Term Goal (STG) Decrease pain by 50% (goal progress; not constant or as severe per patient) STG Duration 6 wks Combat Systems Operator Goal (LTG) Pain decreased by 75% (goal progress) LTG Duration 12 wks Two Impairment function: UE quickdash score 70% Short Term Goal (STG) Decrease score to 50 (goal progress; can now put on bra and do some reaching without severe pain) STG Duration 6 wks Jail Goal (LTG) Decrease score to 20 (goal progress) LTG Duration 12 wks One Impairment unable to reach overhead, out to side, or behind her back d/ t pain Short Term Goal (STG) Patient will be able to resume 50% of her normal activities using right UE (goal progress as above) STG Duration 6 wks Combat Systems Operator Goal (LTG) Patient will be able to return to all prior daily activities using right UE with minimal to no pain (goal progress) LTG Duration 12 wks Progress Towards Goals Progress Comments Despite stressful events this week, patient working on HEP and posural correction, noting improvement. Assessment Summary Assessment Improving postural awareness, decreased pain. Physical Therapy Plan Frequency and Duration Frequency of Treatment 2x/Week Duration of Treatment 3 months Plan of Care Start Date 07/15/18 Plan of Care End Date 10/15/18 Therapeutic Interventions Therapeutic Interventions Home Exercise Program Manual Therapy Patient/Caregiver Education Self-Care/Home Management Taping Therapeutic Activities Therapeutic Exercises Modalities Electric Stimulation Hot Packs Infrared Therapy Iontophoresis Ultrasound Next Visit Focus/Plan Next Note Type Treatment Note Next Visit Plan gentle thoracic PA's, scapular mobilizations.
--- NOTE | 2018-09-11 10:15 | PT.OTN ---
Current Diagnoses Pain in right shoulder (09/09/18) Torticollis (09/09/18) Cervicalgia (09/09/18) Unspecified disorder of synovium and tendon, right shoulder (09/09/18) Physical Therapy Treatment Note PT-OP-A Visit Information Start: 02/05/18 08:08 Freq: Status: Active Protocol: Document 09/09/18 09:00 [facility] (Rec: 09/11/18 08:13 [facility] [id number]) Out-Patient Physical Therapy Visit Information Visit Information Visit Type Treatment Note Visit Start Time 09:10 Visit Stop Time 09:58 Total Visit Minutes 48 Visit Number 23 Number of CUSTOMER CARE COORDINATOR Visits 0 Evaluation Information Evaluation Date 02/05/18 Precautions Precautions cardiac PT-OP-B Current Condition Start: 02/05/18 08:08 Freq: Status: Active Protocol: Document 07/15/18 09:00 [facility] (Rec: 07/15/18 09:53 [facility] [id number]) Current Condition History of Current Condition Onset Date December 2017 Current Complaints bilateral neck pain, luisa shoulder pain right worse than left History of Current Condition Patient reports hasn't been to PT for a couple months due to PT department scheduling error which erased all her scheduled appointments; returns today reporting increase in neck and shoulder pain since last seen. Reports recent injury to neck after spending several hours looking at ipad with head rotated and bent, next morning felt explosion in neck, with persistant neck pain x 10 days . Some better since that time but pain persists. Increased stress over past week due to the of a couple pets. Pain in neck 8/10 at worst when looking up, mild pain when not looking up. Shoulder pain persists especially when attempting to reach overhead or out to side, reaching behind her back is some better . Compliant to HEP, doing cardiac rehab, but modified for shoulder; below shoulder level exercises. Shoulder pain exacerbated easily. Treatment Goals Patient/Caregiver Goals Decrease neck and shoulder pain PT-OP-C Subjective Start: 02/05/18 08:08 Freq: Status: Active Protocol: Document 09/09/18 09:00 [facility] (Rec: 09/11/18 08:13 [facility] [id number]) OP-PT Subjective Patient Comments Patient Comments reports decreased pain, likes use of prone pillow, feeling hopeful. PT-OP-E Functional Tests Start: 02/05/18 08:08 Freq: Status: Active Protocol: Document 07/15/18 09:00 [facility] (Rec: 07/17/18 16:36 [facility] [id number]) Functional Tests Apley's Scratch Test Action 1: The subject is instructed to touch the opposite shoulder with his/her hand. This motion checks Glenohumeral adduction, internal rotation , horizontal adduction and scapular protraction Action 2: The subject is instructed to place his/her arm overhead and reach behind the neck to touch his/her upper back. This motion checks Glenohumeral abduction, external rotation and scapular upward rotation and elevation. Action 3: The subject puts his/her hand on the lower back and reaches upward as far as possible. This motion checks glenohumeral adduction, internal rotation and scapular retraction with downward rotation Action 1- Left posterior shoulder Action 1- Right anterior shoulder Action 2- Left T2 Action 2- Right C2 Action 3- Left T7 Action 3- Right T10 PT-OP-F Manual Assessment Start: 02/05/18 08:08 Freq: Status: Active Protocol: Document 02/05/18 09:16 [facility] (Rec: 02/05/18 09:24 [facility] [id number]) Manual Assessments Soft Tissue Assessment Soft Tissue Mobility Assessment Moderate palpable tightness bilateral UT and levator scap right greater than left PT-OP-J Posture/Palpation/Skin Start: 02/05/18 08:08 Freq: Status: Active Protocol: Document 07/15/18 09:00 [facility] (Rec: 07/17/18 16:36 [facility] [id number]) Posture Evaluation Position Sitting Head/C-Spine Posture Forward Head T-Spine Posture Increased Kyphosis Shoulder Posture (L) Rounded (R) Rounded Scapula Posture (L) Protracted (R) Protracted Arm Posture (R) Internally Rotated PT-OP-K Range of Motion Start: 02/05/18 08:08 Freq: Status: Active Protocol: Document 07/15/18 09:00 [facility] (Rec: 07/17/18 16:36 [facility] [id number]) Cervical Spine Range of Motion Cervical Spine Active Flexion 50 Extension 30 Rotation Left 40 Rotation Right 40 Lateral Flexion Left 20 Lateral Flexion Right 20 ROM Limitations Pain Shoulder Goniometric Range of Motion Shoulder Measured in Degrees Right Shoulder ROM WFL No Testing Position Sitting Flexion 140 Extension 15 Abduction 120 Horizontal Abduction 95 Horizontal Adduction 20 External Rotation at 45 degrees 25 Abduction Left Shoulder ROM WFL Yes Testing Position Sitting Flexion 165 Extension 20 Abduction 150 Horizontal Abduction 170 Horizontal Adduction 45 External Rotation at 45 degrees 75 Abduction PT-OP-L Special Tests Start: 02/05/18 08:08 Freq: Status: Active Protocol: Document 02/05/18 09:16 [facility] (Rec: 02/05/18 09:24 [facility] [id number]) Special Tests Shoulder Special Tests Passive ER Rotator Cuff Test Results positive right IR/Horizontal ADD Impingement Test Results positive right Drop Arm Rotator Cuff Test Results positive right PT-OP-M Strength Start: 02/05/18 08:08 Freq: Status: Active Protocol: Document 07/15/18 09:00 [facility] (Rec: 07/17/18 16:36 [facility] [id number]) Shoulder Strength Shoulder Manual Muscle Testing Right Reason Not Measured Pain Comments severity of pain Left Reason Not Measured WFL PT-OP-Q Treatments Start: 02/05/18 08:08 Freq: Status: Active Protocol: Document 09/09/18 09:00 [facility] (Rec: 09/11/18 08:13 [facility] [id number]) Manual Therapy Treatment Soft Tissue Mobilization 2 Body Location luisa UT, bilateral c/s, upper/ mid thoracic Mobilization Type Myofascial Release Rolling Strumming Body Position Prone Joint Mobilizations Thoracic PA's Joint T4-T10 Grade II Body Position Prone Reps/Duration 5 min Comments To improve joint mobility, ability to correct posture for decreased pain. PT-OP-R Modalities Start: 02/05/18 08:08 Freq: Status: Active Protocol: Document 09/09/18 09:00 [facility] (Rec: 09/11/18 08:13 [facility] [id number]) Electric Stimulation Electric Stimulation Interferential Current (IFC) Body Location luisa mid thoracic spine Patient Position Hooklying Combined With Heat/Cold Hot Pack Comments MH to c/s as well Ultrasound Therapy Treatment upper/mid thoracic paraspinals Treatment Duration (minutes) 8 Patient Position Sitting Coupling Medium Ultrasound Gel Mode Setting Continuous Duty Cycle 100% Intensity Setting (w/cm2) 1.4 PT-OP-T Assessment and Plan Start: 02/05/18 08:08 Freq: Status: Active Protocol: Document 09/09/18 09:00 [facility] (Rec: 09/11/18 08:13 [facility] [id number]) Physical Therapy Assessment Goals Three Impairment Pain Short Term Goal (STG) Decrease pain by 50% (goal progress; not constant or as severe per patient) STG Duration 6 wks Detention Goal (LTG) Pain decreased by 75% (goal progress) LTG Duration 12 wks Two Impairment function: UE quickdash score 70% Short Term Goal (STG) Decrease score to 50 (goal progress; can now put on bra and do some reaching without severe pain) STG Duration 6 wks Councilman Goal (LTG) Decrease score to 20 (goal progress) LTG Duration 12 wks One Impairment unable to reach overhead, out to side, or behind her back d/ t pain Short Term Goal (STG) Patient will be able to resume 50% of her normal activities using right UE (goal progress as above) STG Duration 6 wks Councilman Goal (LTG) Patient will be able to return to all prior daily activities using right UE with minimal to no pain (goal progress) LTG Duration 12 wks Assessment Summary Assessment Decreased pain, good tolerance for manual treatment in prone , reported thoracic PA's felt good. Continue with cues for postural alignment especially during functional activities throughout the day, patient receptive. Physical Therapy Plan Frequency and Duration Frequency of Treatment 2x/Week Duration of Treatment 3 months Plan of Care Start Date 07/15/18 Plan of Care End Date 10/15/18 Therapeutic Interventions Therapeutic Interventions Home Exercise Program Manual Therapy Patient/Caregiver Education Self-Care/Home Management Taping Therapeutic Activities Therapeutic Exercises Modalities Electric Stimulation Hot Packs Infrared Therapy Iontophoresis Ultrasound Next Visit Focus/Plan Next Note Type Treatment Note Next Visit Plan Assess response to last session, review HEP and progress as tolerated. Continue postural correction, educaiton. Manual therapy and modalities for pain management.
--- NOTE | 2018-09-12 10:22 | PT.OTN ---
Current Diagnoses Pain in right shoulder (09/12/18) Torticollis (09/12/18) Cervicalgia (09/12/18) Unspecified disorder of synovium and tendon, right shoulder (09/12/18) Physical Therapy Treatment Note PT-OP-A Visit Information Start: 02/05/18 08:08 Freq: Status: Active Protocol: Document 09/12/18 09:00 [facility] (Rec: 09/12/18 10:21 [facility] [id number]) Out-Patient Physical Therapy Visit Information Visit Information Visit Type Treatment Note Visit Start Time 09:00 Visit Stop Time 09:53 Total Visit Minutes 53 Visit Number 24 Number of SALES REVIEW CLERK Visits 0 Evaluation Information Evaluation Date 02/05/18 Precautions Precautions cardiac; no cardio ex right now, on monitor PT-OP-B Current Condition Start: 02/05/18 08:08 Freq: Status: Active Protocol: Document 07/15/18 09:00 [facility] (Rec: 07/15/18 09:53 [facility] [id number]) Current Condition History of Current Condition Onset Date December 2017 Current Complaints bilateral neck pain, luisa shoulder pain right worse than left History of Current Condition Patient reports hasn't been to PT for a couple months due to PT department scheduling error which erased all her scheduled appointments; returns today reporting increase in neck and shoulder pain since last seen. Reports recent injury to neck after spending several hours looking at ipad with head rotated and bent, next morning felt explosion in neck, with persistant neck pain x 10 days . Some better since that time but pain persists. Increased stress over past week due to the of a couple pets. Pain in neck 8/10 at worst when looking up, mild pain when not looking up. Shoulder pain persists especially when attempting to reach overhead or out to side, reaching behind her back is some better . Compliant to HEP, doing cardiac rehab, but modified for shoulder; below shoulder level exercises. Shoulder pain exacerbated easily. Treatment Goals Patient/Caregiver Goals Decrease neck and shoulder pain PT-OP-C Subjective Start: 02/05/18 08:08 Freq: Status: Active Protocol: Document 09/12/18 09:00 [facility] (Rec: 09/12/18 10:21 [facility] [id number]) OP-PT Subjective Patient Comments Patient Comments Reports decreased pain since last seen.Patient called by jewel supervisor during PT appointment; they have moved up her appt to 09/19/18 (will be prior to next PT appt) PT-OP-E Functional Tests Start: 02/05/18 08:08 Freq: Status: Active Protocol: Document 07/15/18 09:00 [facility] (Rec: 07/17/18 16:36 [facility] [id number]) Functional Tests Apley's Scratch Test Action 1: The subject is instructed to touch the opposite shoulder with his/her hand. This motion checks Glenohumeral adduction, internal rotation , horizontal adduction and scapular protraction Action 2: The subject is instructed to place his/her arm overhead and reach behind the neck to touch his/her upper back. This motion checks Glenohumeral abduction, external rotation and scapular upward rotation and elevation. Action 3: The subject puts his/her hand on the lower back and reaches upward as far as possible. This motion checks glenohumeral adduction, internal rotation and scapular retraction with downward rotation Action 1- Left posterior shoulder Action 1- Right anterior shoulder Action 2- Left T2 Action 2- Right C2 Action 3- Left T7 Action 3- Right T10 PT-OP-F Manual Assessment Start: 02/05/18 08:08 Freq: Status: Active Protocol: Document 02/05/18 09:16 [facility] (Rec: 02/05/18 09:24 [facility] [id number]) Manual Assessments Soft Tissue Assessment Soft Tissue Mobility Assessment Moderate palpable tightness bilateral UT and levator scap right greater than left PT-OP-J Posture/Palpation/Skin Start: 02/05/18 08:08 Freq: Status: Active Protocol: Document 07/15/18 09:00 [facility] (Rec: 07/17/18 16:36 [facility] [id number]) Posture Evaluation Position Sitting Head/C-Spine Posture Forward Head T-Spine Posture Increased Kyphosis Shoulder Posture (L) Rounded (R) Rounded Scapula Posture (L) Protracted (R) Protracted Arm Posture (R) Internally Rotated PT-OP-K Range of Motion Start: 02/05/18 08:08 Freq: Status: Active Protocol: Document 07/15/18 09:00 [facility] (Rec: 07/17/18 16:36 [facility] [id number]) Cervical Spine Range of Motion Cervical Spine Active Flexion 50 Extension 30 Rotation Left 40 Rotation Right 40 Lateral Flexion Left 20 Lateral Flexion Right 20 ROM Limitations Pain Shoulder Goniometric Range of Motion Shoulder Measured in Degrees Right Shoulder ROM WFL No Testing Position Sitting Flexion 140 Extension 15 Abduction 120 Horizontal Abduction 95 Horizontal Adduction 20 External Rotation at 45 degrees 25 Abduction Left Shoulder ROM WFL Yes Testing Position Sitting Flexion 165 Extension 20 Abduction 150 Horizontal Abduction 170 Horizontal Adduction 45 External Rotation at 45 degrees 75 Abduction PT-OP-L Special Tests Start: 02/05/18 08:08 Freq: Status: Active Protocol: Document 02/05/18 09:16 [facility] (Rec: 02/05/18 09:24 [facility] [id number]) Special Tests Shoulder Special Tests Passive ER Rotator Cuff Test Results positive right IR/Horizontal ADD Impingement Test Results positive right Drop Arm Rotator Cuff Test Results positive right PT-OP-M Strength Start: 02/05/18 08:08 Freq: Status: Active Protocol: Document 07/15/18 09:00 [facility] (Rec: 07/17/18 16:36 [facility] [id number]) Shoulder Strength Shoulder Manual Muscle Testing Right Reason Not Measured Pain Comments severity of pain Left Reason Not Measured WFL PT-OP-Q Treatments Start: 02/05/18 08:08 Freq: Status: Active Protocol: Document 09/12/18 09:00 [facility] (Rec: 09/12/18 10:21 [facility] [id number]) Manual Therapy Treatment Soft Tissue Mobilization 2 Body Location luisa UT, bilateral c/s, upper/ mid thoracic Mobilization Type Myofascial Release Rolling Strumming Body Position Prone Joint Mobilizations Thoracic PA's Joint T4-T10 Grade II Body Position Prone Reps/Duration 5 min Comments To improve joint mobility, ability to correct posture for decreased pain. PT-OP-R Modalities Start: 02/05/18 08:08 Freq: Status: Active Protocol: Document 09/12/18 09:00 [facility] (Rec: 09/12/18 10:21 [facility] [id number]) Electric Stimulation Electric Stimulation Interferential Current (IFC) Body Location luisa mid thoracic spine Patient Position Hooklying Combined With Heat/Cold Hot Pack Comments MH to c/s as well Ultrasound Therapy Treatment upper/mid thoracic paraspinals Treatment Duration (minutes) 8 Patient Position Sitting Coupling Medium Ultrasound Gel Mode Setting Continuous Duty Cycle 100% Intensity Setting (w/cm2) 1.4 PT-OP-T Assessment and Plan Start: 02/05/18 08:08 Freq: Status: Active Protocol: Document 09/12/18 09:00 [facility] (Rec: 09/12/18 10:21 [facility] [id number]) Physical Therapy Assessment Goals Three Impairment Pain Short Term Goal (STG) Decrease pain by 50% (goal progress; not constant or as severe per patient) STG Duration 6 wks Half-Way Goal (LTG) Pain decreased by 75% (goal progress) LTG Duration 12 wks Two Impairment function: UE quickdash score 70% Short Term Goal (STG) Decrease score to 50 (goal progress; can now put on bra and do some reaching without severe pain) STG Duration 6 wks Manager Nicu Goal (LTG) Decrease score to 20 (goal progress) LTG Duration 12 wks One Impairment unable to reach overhead, out to side, or behind her back d/ t pain Short Term Goal (STG) Patient will be able to resume 50% of her normal activities using right UE (goal progress as above) STG Duration 6 wks Manager Nicu Goal (LTG) Patient will be able to return to all prior daily activities using right UE with minimal to no pain (goal progress) LTG Duration 12 wks Assessment Summary Assessment Improved thoracic mobility noted today, decreased pain with current treatment. Patient anxious about cardiac results. Physical Therapy Plan Frequency and Duration Frequency of Treatment 2x/Week Duration of Treatment 3 months Plan of Care Start Date 07/15/18 Plan of Care End Date 10/15/18 Therapeutic Interventions Therapeutic Interventions Home Exercise Program Manual Therapy Patient/Caregiver Education Self-Care/Home Management Taping Therapeutic Activities Therapeutic Exercises Modalities Electric Stimulation Hot Packs Infrared Therapy Iontophoresis Ultrasound Next Visit Focus/Plan Next Note Type Treatment Note Next Visit Plan Continue PT per POC
--- NOTE | 2018-09-20 15:12 | PT.OTN ---
Current Diagnoses Pain in right shoulder (09/20/18) Torticollis (09/20/18) Cervicalgia (09/20/18) Unspecified disorder of synovium and tendon, right shoulder (09/20/18) Physical Therapy Treatment Note PT-OP-A Visit Information Start: 02/05/18 08:08 Freq: Status: Active Protocol: Document 09/20/18 09:00 [facility] (Rec: 09/20/18 15:12 [facility] [id number]) Out-Patient Physical Therapy Visit Information Visit Information Visit Type Treatment Note Visit Start Time 09:03 Visit Stop Time 10:00 Total Visit Minutes 55 Visit Number 25 Number of PLUSH DRESSER Visits 0 Evaluation Information Evaluation Date 02/05/18 Precautions Precautions cardiac; no cardio ex right now, on monitor PT-OP-B Current Condition Start: 02/05/18 08:08 Freq: Status: Active Protocol: Document 07/15/18 09:00 [facility] (Rec: 07/15/18 09:53 [facility] [id number]) Current Condition History of Current Condition Onset Date December 2017 Current Complaints bilateral neck pain, luisa shoulder pain right worse than left History of Current Condition Patient reports hasn't been to PT for a couple months due to PT department scheduling error which erased all her scheduled appointments; returns today reporting increase in neck and shoulder pain since last seen. Reports recent injury to neck after spending several hours looking at ipad with head rotated and bent, next morning felt explosion in neck, with persistant neck pain x 10 days . Some better since that time but pain persists. Increased stress over past week due to the of a couple pets. Pain in neck 8/10 at worst when looking up, mild pain when not looking up. Shoulder pain persists especially when attempting to reach overhead or out to side, reaching behind her back is some better . Compliant to HEP, doing cardiac rehab, but modified for shoulder; below shoulder level exercises. Shoulder pain exacerbated easily. Treatment Goals Patient/Caregiver Goals Decrease neck and shoulder pain PT-OP-C Subjective Start: 02/05/18 08:08 Freq: Status: Active Protocol: Document 09/20/18 09:00 [facility] (Rec: 09/20/18 15:12 [facility] [id number]) OP-PT Subjective Patient Comments Patient Comments Pain mild today, pleased with progress. States she will be having an angiogram in 1 wk, anxious about her cardiac status. Patient Reported Progress Improving PT-OP-E Functional Tests Start: 02/05/18 08:08 Freq: Status: Active Protocol: Document 07/15/18 09:00 [facility] (Rec: 07/17/18 16:36 [facility] [id number]) Functional Tests Apley's Scratch Test Action 1: The subject is instructed to touch the opposite shoulder with his/her hand. This motion checks Glenohumeral adduction, internal rotation , horizontal adduction and scapular protraction Action 2: The subject is instructed to place his/her arm overhead and reach behind the neck to touch his/her upper back. This motion checks Glenohumeral abduction, external rotation and scapular upward rotation and elevation. Action 3: The subject puts his/her hand on the lower back and reaches upward as far as possible. This motion checks glenohumeral adduction, internal rotation and scapular retraction with downward rotation Action 1- Left posterior shoulder Action 1- Right anterior shoulder Action 2- Left T2 Action 2- Right C2 Action 3- Left T7 Action 3- Right T10 PT-OP-F Manual Assessment Start: 02/05/18 08:08 Freq: Status: Active Protocol: Document 02/05/18 09:16 [facility] (Rec: 02/05/18 09:24 [facility] [id number]) Manual Assessments Soft Tissue Assessment Soft Tissue Mobility Assessment Moderate palpable tightness bilateral UT and levator scap right greater than left PT-OP-J Posture/Palpation/Skin Start: 02/05/18 08:08 Freq: Status: Active Protocol: Document 07/15/18 09:00 [facility] (Rec: 07/17/18 16:36 [facility] [id number]) Posture Evaluation Position Sitting Head/C-Spine Posture Forward Head T-Spine Posture Increased Kyphosis Shoulder Posture (L) Rounded (R) Rounded Scapula Posture (L) Protracted (R) Protracted Arm Posture (R) Internally Rotated PT-OP-K Range of Motion Start: 02/05/18 08:08 Freq: Status: Active Protocol: Document 07/15/18 09:00 [facility] (Rec: 07/17/18 16:36 [facility] [id number]) Cervical Spine Range of Motion Cervical Spine Active Flexion 50 Extension 30 Rotation Left 40 Rotation Right 40 Lateral Flexion Left 20 Lateral Flexion Right 20 ROM Limitations Pain Shoulder Goniometric Range of Motion Shoulder Measured in Degrees Right Shoulder ROM WFL No Testing Position Sitting Flexion 140 Extension 15 Abduction 120 Horizontal Abduction 95 Horizontal Adduction 20 External Rotation at 45 degrees 25 Abduction Left Shoulder ROM WFL Yes Testing Position Sitting Flexion 165 Extension 20 Abduction 150 Horizontal Abduction 170 Horizontal Adduction 45 External Rotation at 45 degrees 75 Abduction PT-OP-L Special Tests Start: 02/05/18 08:08 Freq: Status: Active Protocol: Document 02/05/18 09:16 [facility] (Rec: 02/05/18 09:24 [facility] [id number]) Special Tests Shoulder Special Tests Passive ER Rotator Cuff Test Results positive right IR/Horizontal ADD Impingement Test Results positive right Drop Arm Rotator Cuff Test Results positive right PT-OP-M Strength Start: 02/05/18 08:08 Freq: Status: Active Protocol: Document 07/15/18 09:00 [facility] (Rec: 07/17/18 16:36 [facility] [id number]) Shoulder Strength Shoulder Manual Muscle Testing Right Reason Not Measured Pain Comments severity of pain Left Reason Not Measured WFL PT-OP-Q Treatments Start: 02/05/18 08:08 Freq: Status: Active Protocol: Document 09/20/18 09:00 [facility] (Rec: 09/20/18 15:12 [facility] [id number]) Manual Therapy Treatment Soft Tissue Mobilization 2 Body Location luisa UT, bilateral c/s, upper/ mid thoracic Mobilization Type Myofascial Release Rolling Strumming Body Position Prone Joint Mobilizations Thoracic PA's Joint T4-T10 Grade II Body Position Prone Reps/Duration 5 min Comments To improve joint mobility, ability to correct posture for decreased pain. PT-OP-R Modalities Start: 02/05/18 08:08 Freq: Status: Active Protocol: Document 09/20/18 09:00 [facility] (Rec: 09/20/18 15:12 [facility] [id number]) Electric Stimulation Electric Stimulation Interferential Current (IFC) Body Location luisa mid thoracic spine Patient Position Hooklying Combined With Heat/Cold Hot Pack Comments MH to c/s as well Ultrasound Therapy Treatment upper/mid thoracic paraspinals Treatment Duration (minutes) 8 Patient Position Sitting Coupling Medium Ultrasound Gel Mode Setting Continuous Duty Cycle 100% Intensity Setting (w/cm2) 1.4 PT-OP-T Assessment and Plan Start: 02/05/18 08:08 Freq: Status: Active Protocol: Document 09/20/18 09:00 [facility] (Rec: 09/20/18 15:12 [facility] [id number]) Physical Therapy Assessment Goals Three Impairment Pain Short Term Goal (STG) Decrease pain by 50% (goal progress; not constant or as severe per patient) STG Duration 6 wks Assisted Goal (LTG) Pain decreased by 75% (goal progress) LTG Duration 12 wks Two Impairment function: UE quickdash score 70% Short Term Goal (STG) Decrease score to 50 (goal progress; can now put on bra and do some reaching without severe pain) STG Duration 6 wks Assisted Goal (LTG) Decrease score to 20 (goal progress) LTG Duration 12 wks One Impairment unable to reach overhead, out to side, or behind her back d/ t pain Short Term Goal (STG) Patient will be able to resume 50% of her normal activities using right UE (goal progress as above) STG Duration 6 wks Wood Pole Treater Goal (LTG) Patient will be able to return to all prior daily activities using right UE with minimal to no pain (goal progress) LTG Duration 12 wks Assessment Summary Assessment Compliant to HEP, good progress with decrease in pain . Patient has 1 further appointment scheduled for PT. Physical Therapy Plan Next Visit Focus/Plan Next Note Type Treatment Note Next Visit Plan Review HEP, modalities and manual therapy for pain as indicated. Anticipate discharge after next treatment .
--- NOTE | 2018-10-08 16:33 | PT.OTN ---
Current Diagnoses Pain in right shoulder (10/08/18) Torticollis (10/08/18) Cervicalgia (10/08/18) Unspecified disorder of synovium and tendon, right shoulder (10/08/18) Physical Therapy Treatment Note PT-OP-A Visit Information Start: 02/05/18 08:08 Freq: Status: Active Protocol: Document 10/08/18 16:24 [facility] (Rec: 10/08/18 16:33 [facility] [id number]) Out-Patient Physical Therapy Visit Information Visit Information Visit Type Treatment Note Visit Start Time 13:45 Visit Stop Time 14:40 Total Visit Minutes 55 Visit Number 26 Number of MENTAL HEALTH NURSE Visits 0 Evaluation Information Evaluation Date 02/05/18 Precautions Precautions cardiac PT-OP-B Current Condition Start: 02/05/18 08:08 Freq: Status: Active Protocol: Document 07/15/18 09:00 [facility] (Rec: 07/15/18 09:53 [facility] [id number]) Current Condition History of Current Condition Onset Date December 2017 Current Complaints bilateral neck pain, luisa shoulder pain right worse than left History of Current Condition Patient reports hasn't been to PT for a couple months due to PT department scheduling error which erased all her scheduled appointments; returns today reporting increase in neck and shoulder pain since last seen. Reports recent injury to neck after spending several hours looking at ipad with head rotated and bent, next morning felt explosion in neck, with persistant neck pain x 10 days . Some better since that time but pain persists. Increased stress over past week due to the of a couple pets. Pain in neck 8/10 at worst when looking up, mild pain when not looking up. Shoulder pain persists especially when attempting to reach overhead or out to side, reaching behind her back is some better . Compliant to HEP, doing cardiac rehab, but modified for shoulder; below shoulder level exercises. Shoulder pain exacerbated easily. Treatment Goals Patient/Caregiver Goals Decrease neck and shoulder pain PT-OP-C Subjective Start: 02/05/18 08:08 Freq: Status: Active Protocol: Document 10/08/18 16:24 [facility] (Rec: 10/08/18 16:33 [facility] [id number]) OP-PT Subjective Patient Comments Patient Comments Had angiogram, bad experience with need to stay overnight due to bleeding, reports increased shoulder pain and much bruising in right UE and LE. Is going to see painter and decorator apprentice. PT-OP-E Functional Tests Start: 02/05/18 08:08 Freq: Status: Active Protocol: Document 07/15/18 09:00 [facility] (Rec: 07/17/18 16:36 [facility] [id number]) Functional Tests Apley's Scratch Test Action 1: The subject is instructed to touch the opposite shoulder with his/her hand. This motion checks Glenohumeral adduction, internal rotation , horizontal adduction and scapular protraction Action 2: The subject is instructed to place his/her arm overhead and reach behind the neck to touch his/her upper back. This motion checks Glenohumeral abduction, external rotation and scapular upward rotation and elevation. Action 3: The subject puts his/her hand on the lower back and reaches upward as far as possible. This motion checks glenohumeral adduction, internal rotation and scapular retraction with downward rotation Action 1- Left posterior shoulder Action 1- Right anterior shoulder Action 2- Left T2 Action 2- Right C2 Action 3- Left T7 Action 3- Right T10 PT-OP-F Manual Assessment Start: 02/05/18 08:08 Freq: Status: Active Protocol: Document 02/05/18 09:16 [facility] (Rec: 02/05/18 09:24 [facility] [id number]) Manual Assessments Soft Tissue Assessment Soft Tissue Mobility Assessment Moderate palpable tightness bilateral UT and levator scap right greater than left PT-OP-J Posture/Palpation/Skin Start: 02/05/18 08:08 Freq: Status: Active Protocol: Document 07/15/18 09:00 [facility] (Rec: 07/17/18 16:36 [facility] [id number]) Posture Evaluation Position Sitting Head/C-Spine Posture Forward Head T-Spine Posture Increased Kyphosis Shoulder Posture (L) Rounded (R) Rounded Scapula Posture (L) Protracted (R) Protracted Arm Posture (R) Internally Rotated PT-OP-K Range of Motion Start: 02/05/18 08:08 Freq: Status: Active Protocol: Document 07/15/18 09:00 [facility] (Rec: 07/17/18 16:36 [facility] [id number]) Cervical Spine Range of Motion Cervical Spine Active Flexion 50 Extension 30 Rotation Left 40 Rotation Right 40 Lateral Flexion Left 20 Lateral Flexion Right 20 ROM Limitations Pain Shoulder Goniometric Range of Motion Shoulder Measured in Degrees Right Shoulder ROM WFL No Testing Position Sitting Flexion 140 Extension 15 Abduction 120 Horizontal Abduction 95 Horizontal Adduction 20 External Rotation at 45 degrees 25 Abduction Left Shoulder ROM WFL Yes Testing Position Sitting Flexion 165 Extension 20 Abduction 150 Horizontal Abduction 170 Horizontal Adduction 45 External Rotation at 45 degrees 75 Abduction PT-OP-L Special Tests Start: 02/05/18 08:08 Freq: Status: Active Protocol: Document 02/05/18 09:16 [facility] (Rec: 02/05/18 09:24 [facility] [id number]) Special Tests Shoulder Special Tests Passive ER Rotator Cuff Test Results positive right IR/Horizontal ADD Impingement Test Results positive right Drop Arm Rotator Cuff Test Results positive right PT-OP-M Strength Start: 02/05/18 08:08 Freq: Status: Active Protocol: Document 07/15/18 09:00 [facility] (Rec: 07/17/18 16:36 [facility] [id number]) Shoulder Strength Shoulder Manual Muscle Testing Right Reason Not Measured Pain Comments severity of pain Left Reason Not Measured WFL PT-OP-Q Treatments Start: 02/05/18 08:08 Freq: Status: Active Protocol: Document 10/08/18 16:24 [facility] (Rec: 10/08/18 16:33 [facility] [id number]) Manual Therapy Treatment Soft Tissue Mobilization 2 Body Location luisa UT, bilateral c/s, upper/ mid thoracic Mobilization Type Myofascial Release Rolling Strumming Body Position Prone 1 Body Location right UT, c/s, deltoid, bicep, pec mikaela/min Body Position hooklying Joint Mobilizations Thoracic PA's Joint T4-T10 Grade II Body Position Prone Reps/Duration 5 min Comments To improve joint mobility, ability to correct posture for decreased pain. PT-OP-R Modalities Start: 02/05/18 08:08 Freq: Status: Active Protocol: Document 10/08/18 16:24 [facility] (Rec: 10/08/18 16:33 [facility] [id number]) Electric Stimulation Electric Stimulation Interferential Current (IFC) Body Location luisa mid thoracic spine Patient Position Hooklying Combined With Heat/Cold Hot Pack Comments MH to c/s as well Ultrasound Therapy Treatment upper/mid thoracic paraspinals Treatment Duration (minutes) 8 Patient Position Prone Coupling Medium Ultrasound Gel Mode Setting Continuous Duty Cycle 100% Intensity Setting (w/cm2) 1.4 PT-OP-T Assessment and Plan Start: 02/05/18 08:08 Freq: Status: Active Protocol: Document 10/08/18 16:24 [facility] (Rec: 10/08/18 16:33 [facility] [id number]) Physical Therapy Assessment Goals Three Impairment Pain Short Term Goal (STG) Decrease pain by 50% (goal progress; not constant or as severe per patient) STG Duration 6 wks Detention Goal (LTG) Pain decreased by 75% (goal progress) LTG Duration 12 wks Two Impairment function: UE quickdash score 70% Short Term Goal (STG) Decrease score to 50 (goal progress; can now put on bra and do some reaching without severe pain) STG Duration 6 wks Detention Goal (LTG) Decrease score to 20 (goal progress) LTG Duration 12 wks One Impairment unable to reach overhead, out to side, or behind her back d/ t pain Short Term Goal (STG) Patient will be able to resume 50% of her normal activities using right UE (goal progress as above) STG Duration 6 wks Detention Goal (LTG) Patient will be able to return to all prior daily activities using right UE with minimal to no pain (goal progress) LTG Duration 12 wks Assessment Summary Assessment Patient pain increased after angiogram though reports decreased pain after treatment today. Is independent with her HEP, and will be returning to cardiac rehab. At this time further PT not indicated. May benefit from further PT in the future when done with cardiac rehab and painter and decorator apprentice. Physical Therapy Plan Discharge Physical Therapy Discharge Reasons Plateau in Progress Discharge Comments Patient to see painter and decorator apprentice. May benefit from further PT after that is completed, but will discharge from PT at this time.
== END 2018-10-08 14:49 ==
LOC: PHYS 13:45
PROVIDERS: Family Provider Family Medicine; PCP Family Medicine; Referring Provider Orthopaedic Surgery; Visit Provider Family Medicine
DX: M25.511 Pain in right shoulder (principal); M54.2 Cervicalgia; M43.6 Torticollis; M67.911 Unspecified disorder of synovium and tendon, right shoulder
CPT/HCPCS: 97010; 97014; 97035; 97110; 97140; 97163; G0283

== ENCOUNTER → 2018-11-27 16:06 | Outpatient (CLI) | payer MEDICARE, BC, SELFPAY | PROVIDERS: Family Provider Family Medicine; PCP Family Medicine; Visit Provider Internal Medicine Hematology & Oncology | DX: D47.2 Monoclonal gammopathy (principal) | CPT/HCPCS: 80053; 82232; 82784; 83615; 83883; 84155; 84165; 85025; 86334 ==

== ENCOUNTER → 2018-12-09 17:11 | Outpatient (CLI) | payer MEDICARE, BC, SELFPAY ==
[2018-12-09 17:19] LABS: Bacteria Urine None Seen; RBC Urine None Seen (0-5/HPF); WBC Urine None Seen (0-5/HPF)
[2018-12-09 18:45] LABS: Appearance Urine UA CLEAR; Bilirubin Urine UA NEGATIVE (NEGATIVE); Color Urine UA YELLOW; Glucose Urine UA NEGATIVE (Negative); Ketones Urine UA NEGATIVE (NEGATIVE); Leukocyte Esterase Urine UA NEGATIVE (NEGATIVE); Nitrite Urine UA NEGATIVE (Negative); Occult Blood Urine UA NEGATIVE (Negative); Protein Urine UA NEGATIVE (Negative); Urobilinogen Urine UA 0.2 E.U./dL (0.2); pH Urine UA 6.5 (4.5-8.0)
[2018-12-09 19:03] LABS: Culture Indicated Urine Cult Not Indicated; Squamous Epithelial Cell Urine None Seen; Urine Comments Microscopic Normal
== END ==
PROVIDERS: PCP Family Medicine; Visit Provider Family Medicine
DX: R82.998 Other abnormal findings in urine (principal)
CPT/HCPCS: 81001

== ENCOUNTER → 2018-12-10 14:22 | Outpatient (CLI) | payer MEDICARE, BC, SELFPAY ==
[2018-12-10 16:56] LABS: Clostridium Difficile Tox PCR Negative for C. diff
== END ==
PROVIDERS: PCP Family Medicine; Visit Provider Family Medicine
DX: R82.998 Other abnormal findings in urine (principal)
CPT/HCPCS: 87493

== ENCOUNTER → 2019-01-11 22:14 | Outpatient (CLI) | payer MEDICARE, BC, SELFPAY | PROVIDERS: Family Provider Family Medicine; PCP Family Medicine; Visit Provider Family Medicine | DX: R19.7 Diarrhea, unspecified (principal) ==

== ENCOUNTER → 2019-01-16 11:25 | Outpatient (CLI) | payer MEDICARE, BC, SELFPAY ==
[2019-01-16 11:42] LABS: Add Manual Diff / Slide Review NO; Basophils Absolute Auto 0 /uL (0-100); Basophils Percent Auto 0.8 % (0-2); Eosinophils Absolute Auto 100 /uL (0-450); Eosinophils Percent Auto 1.7 % (2-4); Hematocrit 39.1 % (36-46); Hemoglobin 12.9 g/dL (12.0-16.0); Lymphocytes Absolute Auto 1000 /uL (1100-4500); Lymphocytes Percent Auto 16.7 % (25-40); Mean Corpuscular Hemoglobin 26.6 PG (26-34); Mean Corpuscular Volume 80.5 fL (80-100); Monocytes Absolute Auto 400 /uL (0-900); Neutrophils Absolute Auto 4300 /uL (1500-7000); Neutrophils Percent Auto 73.8 % (50-75); Platelet Count 232 X10^3/uL (150-400); Red Blood Cell Count 4.86 X10^6/uL (4.0-5.2); Red Cell Distribution Width 15.1 % (11.6-14.8); White Blood Cell Count 5.8 X10^3/uL (4.5-11.0)
[2019-01-16 12:13] LABS: BUN Creatinine Ratio 31.1 (6-22); Blood Urea Nitrogen 28 mg/dL (7-17); C-Reactive Protein Quant 1.3 mg/dL (<1.0); Calcium 9.1 mg/dL (8.4-10.2); Carbon Dioxide 23 mmol/L (22-32); Chloride 103 mmol/L (98-107); Erythrocyte Sedimentation Rate 21 MM/HR (0-20); Estimated Glomerular Filt Rate > 60.0 mL/min (>60); Glucose 92 mg/dL (80-110); HEMOLYSIS < 15 (0-50); Potassium 4.2 mmol/L (3.4-5.1); Sodium 139 mmol/L (137-145)
== END ==
PROVIDERS: PCP Family Medicine; Visit Provider Family Medicine
DX: M31.6 Other giant cell arteritis (principal); R51 Headache
CPT/HCPCS: 36415; 80048; 85025; 85651; 86140

== ENCOUNTER → 2019-02-19 10:50 | Outpatient (CLI) | payer MEDICARE, BC, SELFPAY ==
[2019-02-19 12:34] LABS: BUN Creatinine Ratio 21.3 (6-22); Blood Urea Nitrogen 17 mg/dL (7-17); Calcium 8.9 mg/dL (8.4-10.2); Carbon Dioxide 28 mmol/L (22-32); Chloride 109 mmol/L (98-107); Estimated Glomerular Filt Rate > 60.0 mL/min (>60); Glucose 99 mg/dL (80-110); HEMOLYSIS < 15 (0-50); Potassium 4.5 mmol/L (3.4-5.1); Sodium 141 mmol/L (137-145)
== END ==
PROVIDERS: Family Provider Family Medicine; PCP Family Medicine; Visit Provider Physician Assistant
DX: I70.1 Atherosclerosis of renal artery (principal); I15.0 Renovascular hypertension
CPT/HCPCS: 36415; 80048

== ENCOUNTER → 2019-02-27 10:45 | Outpatient (CLI) | payer MEDICARE, BC, SELFPAY ==
[2019-02-27 12:07] LABS: Add Manual Diff / Slide Review NO; Basophils Absolute Auto 0 /uL (0-100); Basophils Percent Auto 0.5 % (0-2); Eosinophils Absolute Auto 100 /uL (0-450); Eosinophils Percent Auto 2.1 % (2-4); Hematocrit 36.6 % (36-46); Hemoglobin 11.8 g/dL (12.0-16.0); Lymphocytes Absolute Auto 1000 /uL (1100-4500); Lymphocytes Percent Auto 18.8 % (25-40); Mean Corpuscular HGB Conc 32.3 % (30-36); Mean Corpuscular Hemoglobin 26.5 PG (26-34); Monocytes Absolute Auto 400 /uL (0-900); Monocytes Percent Auto 7.1 % (3-14); Neutrophils Absolute Auto 3700 /uL (1500-7000); Neutrophils Percent Auto 71.5 % (50-75); Platelet Count 214 X10^3/uL (150-400); Red Blood Cell Count 4.47 X10^6/uL (4.0-5.2); Red Cell Distribution Width 15.6 % (11.6-14.8); White Blood Cell Count 5.2 X10^3/uL (4.5-11.0)
[2019-02-27 13:12] LABS: Vitamin B12 436 pg/mL (239-931)
[2019-02-28 09:24] LABS: HEMOLYSIS < 15 (0-50); Iron 43 ug/dL (37-170)
[2019-02-28 09:34] LABS: Percent Iron Saturation 13 % (15-50); Total Iron Binding Capacity 324 ug/dL (265-497); Transferrin 246 mg/dL (206-381)
[2019-02-28 14:28] LABS: Ferritin 35.6 ng/mL (11.1-264)
[2019-03-01 16:07] LABS: Rubeola Measles IgG > 300.00 AU/mL (< 25.00)
[2019-03-03 12:20] LABS: Homocysteine 11.6 umol/L (< 10.4)
[2019-03-05 18:30] LABS: Methylmalonic Acid 292 nmol/L (87-318)
== END ==
PROVIDERS: PCP Family Medicine; Visit Provider Family Medicine
DX: K52.9 Noninfective gastroenteritis and colitis, unspecified (principal); R51 Headache; R53.83 Other fatigue; I10 Essential (primary) hypertension; Z01.84 Encounter for antibody response examination
CPT/HCPCS: 36415; 82607; 82728; 83090; 83540; 83550; 83921; 85025; 86765; 87471

== ENCOUNTER → 2019-03-05 16:13 | Outpatient (CLI) | payer MEDICARE, BC, SELFPAY ==
[2019-03-05 17:29] LABS: HEMOLYSIS < 15 (0-50); Iron 43 ug/dL (37-170)
[2019-03-05 17:33] LABS: C-Reactive Protein Quant 0.7 mg/dL (<1.0)
[2019-03-05 17:40] LABS: Percent Iron Saturation 14 % (15-50); Total Iron Binding Capacity 312 ug/dL (265-497); Transferrin 242 mg/dL (206-381)
[2019-03-05 18:05] LABS: Ferritin 33.2 ng/mL (11.1-264)
[2019-03-07 20:14] LABS: ANA Screen, IFA Positive (Negative)
== END ==
PROVIDERS: PCP Family Medicine; Visit Provider Family Medicine
DX: M32.9 Systemic lupus erythematosus, unspecified (principal); D64.9 Anemia, unspecified; R71.8 Other abnormality of red blood cells
CPT/HCPCS: 36415; 82728; 83540; 83550; 86038; 86140

== ENCOUNTER → 2019-03-10 09:43 | Outpatient (CLI) | payer MEDICARE, BC, SELFPAY | PROVIDERS: PCP Family Medicine; Visit Provider Family Medicine | DX: M85.852 Other specified disorders of bone density and structure, left thigh (principal); Z78.0 Asymptomatic menopausal state; Z82.62 Family history of osteoporosis | CPT/HCPCS: 77080 ==

== ENCOUNTER → 2019-03-21 10:24 | Outpatient (CLI) | payer MEDICARE, BC, SELFPAY ==
[2019-03-21 11:31] LABS: Creatine Kinase 41 U/L (30-135); Magnesium 1.8 mg/dL (1.6-2.3)
[2019-03-21 11:48] LABS: HEMOLYSIS < 15 (0-50); Iron 52 ug/dL (37-170)
[2019-03-21 11:59] LABS: Percent Iron Saturation 17 % (15-50); Total Iron Binding Capacity 306 ug/dL (265-497); Transferrin 245 mg/dL (206-381)
== END ==
PROVIDERS: PCP Family Medicine; Visit Provider Family Medicine
DX: E53.8 Deficiency of other specified B group vitamins (principal); I10 Essential (primary) hypertension; R51 Headache; R53.83 Other fatigue; R78.79 Finding of abnormal level of heavy metals in blood; M60.9 Myositis, unspecified
CPT/HCPCS: 36415; 81291; 82550; 82728; 83540; 83550; 83735

== ENCOUNTER → 2019-05-23 10:26 | Outpatient (CLI) | payer MEDICARE, BC, SELFPAY ==
[2019-05-23 11:33] LABS: Add Manual Diff / Slide Review NO; Basophils Absolute Auto 0 /uL (0-100); Basophils Percent Auto 0.5 % (0-2); Eosinophils Absolute Auto 100 /uL (0-450); Eosinophils Percent Auto 1.4 % (2-4); Hematocrit 39.1 % (36-46); Hemoglobin 12.9 g/dL (12.0-16.0); Lymphocytes Absolute Auto 1000 /uL (1100-4500); Lymphocytes Percent Auto 14.1 % (25-40); Mean Corpuscular HGB Conc 32.9 % (30-36); Mean Corpuscular Hemoglobin 27.4 PG (26-34); Mean Corpuscular Volume 83.3 fL (80-100); Monocytes Absolute Auto 500 /uL (0-900); Monocytes Percent Auto 6.7 % (3-14); Neutrophils Absolute Auto 5300 /uL (1500-7000); Neutrophils Percent Auto 77.3 % (50-75); Platelet Count 203 X10^3/uL (150-400); Red Cell Distribution Width 15.2 % (11.6-14.8); White Blood Cell Count 6.9 X10^3/uL (4.5-11.0)
[2019-05-23 11:54] LABS: B Type Natriuretic Peptide < 100 (<100)
[2019-05-23 11:57] LABS: Alanine Aminotransferase 20 IU/L (9-52); Albumin 3.9 g/dL (3.5-5.0); Albumin Globulin Ratio 1.5 (1.0-2.8); Alkaline Phosphatase 113 U/L (38-126); Aspartate Aminotransferase 16 IU/L (14-36); Bilirubin Total 1.2 mg/dL (0.2-1.3); Blood Urea Nitrogen 16 mg/dL (7-17); Calcium 9.4 mg/dL (8.4-10.2); Carbon Dioxide 29 mmol/L (22-32); Chloride 105 mmol/L (98-107); Estimated Glomerular Filt Rate > 60.0 mL/min (>60); Globulin 2.6 g/dL (1.7-4.1); Glucose 94 mg/dL (80-110); HEMOLYSIS < 15 (0-50); Potassium 4.3 mmol/L (3.4-5.1); Sodium 143 mmol/L (137-145); Total Protein 6.5 g/dL (6.3-8.2)
== END ==
PROVIDERS: PCP Family Medicine; Visit Provider Family Medicine
DX: I50.9 Heart failure, unspecified (principal); D47.2 Monoclonal gammopathy
CPT/HCPCS: 36415; 80053; 83880; 85025

== ENCOUNTER → 2019-05-30 11:57 | Outpatient (CLI) | payer MEDICARE, BC, SELFPAY | PROVIDERS: PCP Family Medicine; Visit Provider Ophthalmology | DX: H10.33 Unspecified acute conjunctivitis, bilateral (principal) | CPT/HCPCS: 87070; 87077; 87147; 87185; 87186; 87205 ==

== ENCOUNTER → 2019-06-23 11:45 | Outpatient (CLI) | payer MEDICARE, BC, SELFPAY ==
[2019-06-25 14:14] LABS: Free Kappa Light Chain 29.9 mg/L (3.3-19.4); Free Kappa/ Lambda Ratio 1.13 (0.26-1.65); Free Lambda 26.4 mg/L (5.7-26.3)
[2019-06-25 21:15] LABS: Albumin 3.4 g/dL (3.8-4.8); Alpha 1 Globulin 0.3 g/dL (0.2-0.3); Alpha 2 Globulin 0.7 g/dL (0.5-0.9); Beta 1 Globulin 0.4 g/dL (0.4-0.6); Gamma Globulin 0.8 g/dL (0.8-1.7); Protein, Total 5.9 g/dL (6.1-8.1)
== END ==
PROVIDERS: PCP Family Medicine
DX: D47.2 Monoclonal gammopathy (principal)
CPT/HCPCS: 36415; 83883; 84155; 84165

== ENCOUNTER → 2019-06-24 08:45 | Outpatient (CLI) | payer MEDICARE, BC, SELFPAY ==
--- NOTE | 2019-06-24 08:47 | DI.US.S_ITS ---
PROCEDURE: US THYROID INDICATIONS: F/U NODULES TECHNIQUE: Real-time scanning was performed of the thyroid gland, with image documentation. COMPARISON: [facility], US, THYROID, 04/21/2016, 10:31. FINDINGS: Right: Thyroid lobe measures 4.6 x 1.9 x 1.7 cm, and is homogeneous in echotexture. Left: Thyroid lobe measures 5.0 x 1.9 x 2.0 cm, and is homogenous in echotexture. Isthmus: 6.0 mm thick. Nodule number: 1 Location: Right mid Size: No significant change at 1.2 x 0.7 x 0.7 cm. Composition: Solid Echogenicity: Hypoechoic Shape: wider than tall. Margins: Smooth Echogenic foci: Internal echogenic punctate foci Total points: 7 ACR TI-RADS category: Highly suspicious Nodule number: 2 Location: Left superior Size: Unchanged at 0.8 x 0.9 x 0.8 cm. Composition: Solid Echogenicity: Hypoechoic Shape: wider than tall. Margins: Smooth Echogenic foci: None Total points: 4 ACR TI-RADS category: Moderately suspicious Nodule number: 3 Location: Left mid Size: Unchanged at 0.9 x 0.7 x 0.6 cm. Composition: Solid Echogenicity: Hypoechoic Shape: wider than tall. Margins: Smooth Echogenic foci: Peripheral calcification Total points: 5 ACR TI-RADS category: Moderately suspicious Nodule number: 4 Location: Left inferior Size: Unchanged at 2.5 x 1.4 x 1.9 cm. Composition: Solid Echogenicity: Hyperechoic Shape: wider than tall. Margins: Smooth Echogenic foci: None Total points: 3 ACR TI-RADS category: Mildly suspicious IMPRESSION: Stable appearance of bilateral thyroid nodules dating back to 04/21/16. Recommend continued followup as detailed below. ACR TI-RADS definitions and recommendations: TI-RADS 1 (benign): 0 points. FNA not needed. TI-RADS 2 (not suspicious): 2 points. FNA not needed. TI-RADS 3 (mildly suspicious): 3 points. * FNA if 2.5 cm or larger, follow up if 1.5 cm or larger (at 1, 3, and 5 years). TI-RADS 4 (moderately suspicious): 4-6 points. * FNA if 1.5 cm or larger, follow up if 1 cm or larger (at 1, 2, 3, and 5 years). TI-RADS 5 (highly suspicious): 7 points or more. * FNA if 1 cm or larger, follow up if 0.5 cm or larger (every year for 5 years). Dictated by: Chepe PANTOJA Interpreted: Antonio Grant MD on 06/24/2019 at 10:22 Approved by: Antonio Grant M.D. on 06/24/2019 at 16:02
== END ==
PROVIDERS: PCP Family Medicine
DX: D47.2 Monoclonal gammopathy (principal); E04.2 Nontoxic multinodular goiter
CPT/HCPCS: 76536

== ENCOUNTER → 2019-07-03 11:07 | Outpatient (CLI) | payer MEDICARE, BC, SELFPAY ==
--- NOTE | 2019-07-03 | DI.MG.S_ITS ---
BILATERAL DIGITAL SCREENING MAMMOGRAM 3D/2D WITH CAD: 07/03/2019 CLINICAL: Routine screening. Family history of breast cancer. Comparison is made to exams dated: 06/15/2018 mammogram, 06/06/2016 mammogram, and 08/06/2014 mammogram - [facility]. There are scattered fibroglandular elements in both breasts. Current study was also evaluated with a Computer Aided Detection (CAD) system. There are circular mole markers on both breasts. There is a linear scar marker overlying the right breast. No significant masses, calcifications, or other findings are seen in either breast. There has been no significant interval change. IMPRESSION: NEGATIVE There is no mammographic evidence of malignancy. A 1 year screening mammogram is recommended. This exam was interpreted at Station ID: [id number]. NOTE: For mammograms, a report in lay terms will be sent to the patient. Approximately 15% of breast malignancies will not be visualized mammographically. In the management of a palpable breast mass, a negative mammogram must not discourage biopsy of a clinically suspicious lesion. Electronically Signed By: Joaquín Solorio M.D. ecl/:07/03/2019 17:01:19 letter sent: Normal Exam ACR BI-RADS Category 1: Negative [id number]
== END ==
PROVIDERS: PCP Family Medicine; Visit Provider Family Medicine
DX: Z12.31 Encounter for screening mammogram for malignant neoplasm of breast (principal); Z80.3 Family history of malignant neoplasm of breast
CPT/HCPCS: 77063; 77067

== ENCOUNTER → 2019-07-04 15:46 | Outpatient (CLI) | payer MEDICARE, BC, SELFPAY ==
--- NOTE | 2019-07-04 15:49 | DI.RAD.S_ITS ---
PROCEDURE: XR CHEST 2V INDICATIONS: persistant cough TECHNIQUE: 2 views of the chest were acquired. COMPARISON: [facility], , XR CHEST 2V, 09/20/2018, 12:16. [facility], CR, CHEST 1 VIEW, 11/24/2017, 15:50. FINDINGS: Surgical changes and devices: None. Lungs and pleura: Lungs are abnormal with mild interstitial prominence but likely related to reduced inspiratory volume bilaterally.. No pleural effusions or pneumothorax. Mediastinum: Mediastinal contours are normal. Heart size is normal. Bones and chest wall: No suspicious bony abnormalities. Soft tissues appear unremarkable. IMPRESSION: Reduced inspiratory volume, no source of cough is found when this is taken into account. Dictated by: Bal Jaime M.D. on 07/04/2019 at 17:17 Approved by: Bal Jaime M.D. on 07/04/2019 at 17:17
== END ==
PROVIDERS: PCP Family Medicine; Visit Provider Family Medicine
DX: R05 Cough (principal)
CPT/HCPCS: 71046

== ENCOUNTER 2019-08-09 03:58 | Emergency (ER) | payer MEDICARE, BC, SELFPAY ==
[2019-08-09] VITALS (7 sets, daily range): BP systolic 113–179; BP diastolic 61–73; PULSE 58–77; RESP 15–20; TEMP 36.6–36.7; O2SAT 96–99; BMI 40.7
--- NOTE | 2019-08-09 04:23 | ED_ITS ---
HPI - Chest Pain <Silvia Crenshaw, DO - Last Filed: 08/12/19 07:28> General Chief Complaint: Chest Pain Stated Complaint: trouble breathing/chest pain/really bad heart burn Time Seen by Provider: 08/09/19 04:12 Source: patient Mode of arrival: Family Vehicle Limitations: no limitations History of Present Illness HPI narrative: Patient is a 69-year-old female with history of coronary artery disease presenting with sudden onset of burning in her chest and difficulty breathing. She said she was doing well last night when she went to bed however this morning she woke up with intense burning in her chest and severe cough she gets very short of breath. She denies any swelling in her legs. No radiation of pain. She feels like it is really bad acid reflux and describes it as ?Lava.She has had angina most of her life she has taken nitroglycerin this she says feels different. No known history of congestive heart failure. Her pain is not any worse with movement were breathing. In fact when he takes a deep breath she coughs more. She has no fever or chills. MD complaint: chest pain Pain location: substernal Severity: moderate Quality: sharp Treatments prior to arrival chest pain: none Related Data Home Medications Medication Instructions Recorded Confirmed NITROGLYCERIN (Nitrostat) 0.4 mg SUBLINGUAL PRN #0 10/11/10 08/08/19 Fish Oil 1,000 mg PO BID #0 11/29/12 08/08/19 dabigatran etexilate [Pradaxa] 150 mg BID 01/07/19 08/08/19 isosorbide mononitrate 60 mg See Rx Instructions PO DAILY 03/08/19 08/08/19 tablet,extended release 24 hr Resmed Aircurve 10 CPAP #1 ea 03/20/19 08/08/19 aspirin 81 mg tablet 81 mg PO DAILY 08/08/19 08/08/19 bumetanide 1 mg tablet 1 mg PO DAILY PRN 08/08/19 08/08/19 spironolactone 25 mg tablet 25 mg PO DAILY 08/08/19 08/08/19 Previous Rx's Medication Instructions Recorded varicella-zoster gE-AS01B (PF) 50 0.5 ml IM ONCE #1 each 08/01/18 mcg/0.5 mL IM susp, kit albuterol sulfate 90 mcg/actuation 2 puff INHALATION Q4HP PRN #1 inh 05/23/19 aerosol inhaler losartan 100 mg tablet 100 mg PO DAILY #90 tab 06/06/19 carvedilol 25 mg tablet 37.5 mg PO BID #270 tab 08/06/19 benzonatate [Tessalon Perles] 100 mg PO BID-TID PRN #20 cap 08/09/19 pantoprazole 40 mg PO DAILY #10 tab 08/09/19 promethazine-codeine 5 ml PO Q4-6H PRN #473 ml 08/09/19 Allergies Allergy/AdvReac Type Severity Reaction Status Date / Time Haemophilus B polysaccharide Allergy Intermediate YRS AGO Verified 08/08/19 09:00 conj w CAUSED [From TriHIBit] FEVER, RECENTLY MOUTH SORES adhesive Allergy Mild Verified 08/08/19 09:00 diazepam Allergy Mild OPPOSITE Verified 08/08/19 09:00 EFFECT, BECAME HYPER/INCOMPLIANT--O.K. WITH VERSED diphtheria,pertussis Allergy Mild YRS AGO Verified 08/08/19 09:00 (acellular),te CAUSED [From TriHIBit] FEVER, RECENTLY MOUTH SORES pseudoephedrine Allergy Mild INCREASED Verified 08/08/19 09:00 HEART RATE Sulfa (Sulfonamide Allergy Unknown Verified 08/08/19 09:00 Antibiotics) [SULFA (SULFONAMIDE ANTIBIOTICS)] benazepril [From Lotensin] Allergy angioadema Verified 08/08/19 09:00 Beta-Blockers AdvReac Mild LOW Verified 08/08/19 09:00 (Beta-Adrenergic Bloc TOLERANCE - HR IN 30s - HOSPITALIZED diazepam AdvReac Intermediate anxiety Uncoded 08/08/19 09:00 Review of Systems <Silvia Cresnhaw DO - Last Filed: 08/12/19 07:28> Review of Systems ROS Unobtainable: All systems reviewed & are unremarkable except as noted in HPI and below Constitutional Constitutional: Denies chills, Denies fever(s), Denies lethargy and Denies weakness Eyes Eyes: Denies change in vision, Denies eye discharge, Denies irritation and Denies loss of vision ENT Ears, Nose, Mouth, and Throat: Denies change in voice, Denies neck pain and Denies sore throat Cardiovascular Cardiovascular: Reports as per HPI and Reports dyspnea on exertion Respiratory Respiratory: Reports as per HPI, Reports chest congestion, Reports cough, Reports pain with cough, Reports dyspnea on exertion and Reports wheezing Gastrointestinal Gastrointestinal: Denies abdominal pain, Denies change in bowel habits, Denies diarrhea, Denies nausea and Denies vomiting Genitourinary Genitourinary: Denies hematuria, Denies flank pain, Denies urinary incontinence and Denies urinary urgency Musculoskeletal Musculoskeletal: Denies neck pain Neurologic Neurologic: Denies confusion, Denies loss of vision and Denies weakness Psychiatric Psychiatric: Denies anxiety, Denies confusion, Denies depression, Denies homicidal ideation and Denies suicidal ideation Allergic/Immunologic Allergic/Immunologic: Reports wheezing Patient History <Silvia Crenshaw DO - Last Filed: 08/12/19 07:28> Medical History Angioedema (Chronic) Asthma (Resolved) CAD (coronary artery disease) (Chronic 2013) Coccidioidomycosis (Resolved ~1962) EBV infection (Resolved ~1962) Elevated coronary artery calcium score (Chronic) 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) History of recurrent pneumonia (Resolved) Hypertension (Chronic) Prinzmetal's angina (Chronic 1975) Shingles (Resolved 2016) Sleep apnea (Chronic) Statin intolerance (Chronic) Thyroid nodule (Acute) Surgical History History of arthroplasty (Resolved 12/09/12) History of arthroplasty (Resolved 01/20/13) History of cataract removal with insertion of prosthetic lens (Resolved 2014) History of cholecystectomy (Resolved) History of tonsillectomy (Resolved) Stented coronary artery (Resolved 2013) Family History Father Lung cancer Mother Parkinson's disease Breast cancer CAD (coronary artery disease) Social History marital status: household members: friend(s) lives independently: No caregiver/support person: No pets and animals: Yes Smoking Status: Never smoker Exam <Silvia Crenshaw DO - Last Filed: 08/12/19 07:28> Initial Vital Signs Initial Vital Signs: Vital Signs Temperature 97.9 F 08/09/19 04:05 Pulse Rate 77 08/09/19 04:05 Respiratory Rate 19 11/16/19 04:05 Blood Pressure 179/73 H 08/09/19 04:05 Pulse Oximetry 97 08/09/19 04:05 GENERAL: Patient coughing difficult to talk holding chest HEENT: Head atraumatic,EOMI, pupils reactive, no JVD CARDIOVASCULAR: Regular rate and rhythm without murmurs, rubs or gallops. RESPIRATORY: Coarse breath sounds bilaterally ABDOMEN: Soft, nontender. Normoactive bowel sounds all 4 quadrants. No guarding or rebound. EXTREMITIES: Normal range of motion, no clubbing or edema. Neurovascularly intact NEUROLOGICAL: Alert and oriented x4.Normal gait and speech. SKIN: Warm, dry, no laceration, no petechiae, no rashes or lesions. <Vern Mcdonald DO - Last Filed: 08/09/19 08:20> Initial Vital Signs Initial Vital Signs: Vital Signs Temperature 97.9 F 08/09/19 04:05 Pulse Rate 77 08/09/19 04:05 Respiratory Rate 19 08/09/19 04:05 Blood Pressure 179/73 H 08/09/19 04:05 Pulse Oximetry 97 08/09/19 04:05 Course <Silvia Crenshaw DO - Last Filed: 08/12/19 07:28> Orders Ordered: Discontinued Medications Albuterol/Ipratropium (Duoneb) 3 ml INH NOW ONE Stop: 08/09/19 05:29 Last Admin: 08/09/19 05:35 Dose: 3 ml Documented by: RHETT Al Hydrox/Mg Hydrox/Simethicone 20 ml/ Lidocaine HCl 15 ml 0 ml PO NOW ONE Stop: 08/09/19 05:10 Last Admin: 08/09/19 05:14 Dose: 45 ml Documented by: HAIEED Furosemide (Lasix) 40 mg IV NOW ONE Stop: 08/09/19 04:29 Last Admin: 08/09/19 04:40 Dose: 40 mg Documented by: LREED Nitroglycerin (Nitrostat) 0.4 mg SL [id number] PRN PRN Reason: Chest Pain Pantoprazole Sodium (Protonix) 40 mg IV NOW ONE Stop: 08/09/19 04:29 Last Admin: 08/09/19 04:40 Dose: 40 mg Documented by: LREED Vital Signs Vital signs: Vital Signs - 8 hr 08/09/19 04:05 08/09/19 04:15 08/09/19 04:57 Temperature 97.9 F Pulse Rate 77 70 58 L Respiratory Rate 19 20 18 Blood Pressure 179/73 H Blood Pressure [Left Arm] 143/61 H 113/67 Pulse Oximetry 97 99 96 08/09/19 05:37 08/09/19 06:40 08/09/19 08:13 Temperature 98.0 F Pulse Rate 68 62 70 Respiratory Rate 18 16 17 Blood Pressure Blood Pressure [Left Arm] 157/66 H Pulse Oximetry 97 97 98 <Vern Mcodnald, DO - Last Filed: 08/09/19 08:20> Course Course Narrative: patient received in sign out from Dr. Crenshaw. I have performed an independent history and physical and have reviewed EKGs and labs. Orders Ordered: Discontinued Medications Albuterol/Ipratropium (Duoneb) 3 ml INH NOW ONE Stop: 08/09/19 05:29 Last Admin: 08/09/19 05:35 Dose: 3 ml Documented by: RHETT Al Hydrox/Mg Hydrox/Simethicone 20 ml/ Lidocaine HCl 15 ml 0 ml PO NOW ONE Stop: 08/09/19 05:10 Last Admin: 08/09/19 05:14 Dose: 45 ml Documented by: LREED Furosemide (Lasix) 40 mg IV NOW ONE Stop: 08/09/19 04:29 Last Admin: 08/09/19 04:40 Dose: 40 mg Documented by: LREED Nitroglycerin (Nitrostat) 0.4 mg SL [id number] PRN PRN Reason: Chest Pain Pantoprazole Sodium (Protonix) 40 mg IV NOW ONE Stop: 08/09/19 04:29 Last Admin: 08/09/19 04:40 Dose: 40 mg Documented by: LREED Vital Signs Vital signs: Vital Signs - 8 hr 08/09/19 04:05 08/09/19 04:15 08/09/19 04:57 Temperature 97.9 F Pulse Rate 77 70 58 L Respiratory Rate 19 20 18 Blood Pressure 179/73 H Blood Pressure [Left Arm] 143/61 H 113/67 Pulse Oximetry 97 99 96 08/09/19 05:37 08/09/19 06:40 08/09/19 08:13 Temperature 98.0 F Pulse Rate 68 62 70 Respiratory Rate 18 16 17 Blood Pressure Blood Pressure [Left Arm] 157/66 H Pulse Oximetry 97 97 98 MDM - Chest Pain <Silvia Crenshaw DO - Last Filed: 08/12/19 07:28> Lab Data Attestation: I reviewed the patient's lab results. Result diagrams: 08/09/19 04:24 08/09/19 04:24 Labs: Lab Results 08/09/19 08/09/19 08/09/19 Range/Units 04:24 04:24 04:24 WBC 5.0 (4.5-11.0) X10^3/uL RBC 4.84 (4.0-5.2) X10^6/uL Hgb 13.4 (12.0-16.0) g/dL Hct 40.0 (36-46) % MCV 82.6 (80-100) fL MCH 27.7 (26-34) PG MCHC 33.6 (30-36) % RDW 15.5 H (11.6-14.8) % Plt Count 238 (150-400) X10^3/uL Neut % (Auto) 67.0 (50-75) % Lymph % (Auto) 21.9 L (25-40) % [place] % (Auto) 8.2 (3-14) % Eos % (Auto) 2.1 (2-4) % Baso % (Auto) 0.8 (0-2) % Neut # (Auto) 3400 (4961-6898) /uL Lymph # (Auto) 1100 (5740-6058) /uL [place] # (Auto) 400 (0-900) /uL Eos # (Auto) 100 (0-450) /uL Baso # (Auto) 0 (0-100) /uL PT 13.4 H (10.1-12.7) SECONDS INR 1.2 (0.9-1.3) APTT 68 H (26.4-36.2) SECONDS Sodium (137-145) mmol/L Potassium (3.4-5.1) mmol/L Chloride (98-107) mmol/L Carbon Dioxide (22-32) mmol/L BUN (7-17) mg/dL Creatinine (0.52-1.04) mg/dL Estimated GFR (>60) mL/min BUN/Creatinine Ratio (6-22) Glucose (80-110) mg/dL Calcium (8.4-10.2) mg/dL Magnesium 2.0 (1.6-2.3) mg/dL Total Bilirubin (0.2-1.3) mg/dL AST (14-36) IU/L ALT (<35) IU/L Alkaline Phosphatase (38-126) U/L Total Creatine Kinase 75 (30-135) U/L CK-MB (CK-2) TNP CK-MB (CK-2) Rel Index TNP Troponin I < 0.012 (0.01-0.034) ng/mL B-Natriuretic Peptide < 100 (<100) Total Protein (6.3-8.2) g/dL Albumin (3.5-5.0) g/dL Globulin (1.7-4.1) g/dL Albumin/Globulin Ratio (1.0-2.8) Procalcitonin (<0.5) ng/mL 08/09/19 08/09/19 08/09/19 Range/Units 04:24 04:24 07:40 WBC (4.5-11.0) X10^3/uL RBC (4.0-5.2) X10^6/uL Hgb (12.0-16.0) g/dL Hct (36-46) % MCV (80-100) fL MCH (26-34) PG MCHC (30-36) % RDW (11.6-14.8) % Plt Count (150-400) X10^3/uL Neut % (Auto) (50-75) % Lymph % (Auto) (25-40) % [place] % (Auto) (3-14) % Eos % (Auto) (2-4) % Baso % (Auto) (0-2) % Neut # (Auto) (6616-3122) /uL Lymph # (Auto) (1460-6118) /uL [place] # (Auto) (0-900) /uL Eos # (Auto) (0-450) /uL Baso # (Auto) (0-100) /uL PT (10.1-12.7) SECONDS INR (0.9-1.3) APTT (26.4-36.2) SECONDS Sodium 140 (137-145) mmol/L Potassium 4.1 (3.4-5.1) mmol/L Chloride 108 H (98-107) mmol/L Carbon Dioxide 25 (22-32) mmol/L BUN 39 H (7-17) mg/dL Creatinine 1.10 H (0.52-1.04) mg/dL Estimated GFR 49.0 L (>60) mL/min BUN/Creatinine Ratio 35.5 H (6-22) Glucose 119 H (80-110) mg/dL Calcium 9.3 (8.4-10.2) mg/dL Magnesium (1.6-2.3) mg/dL Total Bilirubin 0.9 (0.2-1.3) mg/dL AST 20 (14-36) IU/L ALT 17 (<35) IU/L Alkaline Phosphatase 86 (38-126) U/L Total Creatine Kinase (30-135) U/L CK-MB (CK-2) CK-MB (CK-2) Rel Index Troponin I < 0.012 (0.01-0.034) ng/mL B-Natriuretic Peptide (<100) Total Protein 7.0 (6.3-8.2) g/dL Albumin 4.2 (3.5-5.0) g/dL Globulin 2.8 (1.7-4.1) g/dL Albumin/Globulin Ratio 1.5 (1.0-2.8) Procalcitonin < 0.05 (<0.5) ng/mL Imaging Data Chest x-ray: Attestation: I personally reviewed and interpreted this imaging study as follows: My impression: no acute cardio pulmonary process ECG Data Attestation: I personally reviewed and interpreted this ECG as follows: Prior ECG tracings: available for review Interpretation: EKG 1. Normal sinus rhythm rate 72 p.r. interval 165 QRS 110 QTC 385 is T-wave inversion noted in lead [address] elevations or depressions no changes from prior EKG 2. Sinus rhythm rate 64 no changes from previous MDM Narrative Medical decision making narrative: Patient initially sounded wet symptoms started suddenly stay similar to pulmonary edema. She is given nitroglycerin for chest pain Lasix. However chest x-ray and BNP are negative do not show any pulmonary edema. She still is having a wet sounding like cough. She is given a DuoNeb which he said did not help. She really feels like it is burning in her chest and all long but in her lungs. She has no fever she has no white count negative procalcitonin she has no infectious like symptoms. She has been offered morphine Tylenol and ibuprofen for her chest pain all of which she refuses. No changes in her EKG repeat troponin pending at 7:30 a.m.. Patient is requesting pantoprazole for discharge. Patient signed out to Dr. Mcdonald. <Vern Mcdonald, DO - Last Filed: 08/09/19 08:20> Lab Data Labs: Lab Results 08/09/19 08/09/19 08/09/19 Range/Units 04:24 04:24 04:24 WBC 5.0 (4.5-11.0) X10^3/uL RBC 4.84 (4.0-5.2) X10^6/uL Hgb 13.4 (12.0-16.0) g/dL Hct 40.0 (36-46) % MCV 82.6 (80-100) fL MCH 27.7 (26-34) PG MCHC 33.6 (30-36) % RDW 15.5 H (11.6-14.8) % Plt Count 238 (150-400) X10^3/uL Neut % (Auto) 67.0 (50-75) % Lymph % (Auto) 21.9 L (25-40) % [place] % (Auto) 8.2 (3-14) % Eos % (Auto) 2.1 (2-4) % Baso % (Auto) 0.8 (0-2) % Neut # (Auto) 3400 (8280-6203) /uL Lymph # (Auto) 1100 (2617-3502) /uL [place] # (Auto) 400 (0-900) /uL Eos # (Auto) 100 (0-450) /uL Baso # (Auto) 0 (0-100) /uL PT 13.4 H (10.1-12.7) SECONDS INR 1.2 (0.9-1.3) APTT 68 H (26.4-36.2) SECONDS Sodium (137-145) mmol/L Potassium (3.4-5.1) mmol/L Chloride (98-107) mmol/L Carbon Dioxide (22-32) mmol/L BUN (7-17) mg/dL Creatinine (0.52-1.04) mg/dL Estimated GFR (>60) mL/min BUN/Creatinine Ratio (6-22) Glucose (80-110) mg/dL Calcium (8.4-10.2) mg/dL Magnesium 2.0 (1.6-2.3) mg/dL Total Bilirubin (0.2-1.3) mg/dL AST (14-36) IU/L ALT (<35) IU/L Alkaline Phosphatase (38-126) U/L Total Creatine Kinase 75 (30-135) U/L CK-MB (CK-2) TNP CK-MB (CK-2) Rel Index TNP Troponin I < 0.012 (0.01-0.034) ng/mL B-Natriuretic Peptide < 100 (<100) Total Protein (6.3-8.2) g/dL Albumin (3.5-5.0) g/dL Globulin (1.7-4.1) g/dL Albumin/Globulin Ratio (1.0-2.8) Procalcitonin (<0.5) ng/mL 08/09/19 08/09/19 08/09/19 Range/Units 04:24 04:24 07:40 WBC (4.5-11.0) X10^3/uL RBC (4.0-5.2) X10^6/uL Hgb (12.0-16.0) g/dL Hct (36-46) % MCV (80-100) fL MCH (26-34) PG MCHC (30-36) % RDW (11.6-14.8) % Plt Count (150-400) X10^3/uL Neut % (Auto) (50-75) % Lymph % (Auto) (25-40) % [place] % (Auto) (3-14) % Eos % (Auto) (2-4) % Baso % (Auto) (0-2) % Neut # (Auto) (3424-8744) /uL Lymph # (Auto) (9428-6886) /uL [place] # (Auto) (0-900) /uL Eos # (Auto) (0-450) /uL Baso # (Auto) (0-100) /uL PT (10.1-12.7) SECONDS INR (0.9-1.3) APTT (26.4-36.2) SECONDS Sodium 140 (137-145) mmol/L Potassium 4.1 (3.4-5.1) mmol/L Chloride 108 H (98-107) mmol/L Carbon Dioxide 25 (22-32) mmol/L BUN 39 H (7-17) mg/dL Creatinine 1.10 H (0.52-1.04) mg/dL Estimated GFR 49.0 L (>60) mL/min BUN/Creatinine Ratio 35.5 H (6-22) Glucose 119 H (80-110) mg/dL Calcium 9.3 (8.4-10.2) mg/dL Magnesium (1.6-2.3) mg/dL Total Bilirubin 0.9 (0.2-1.3) mg/dL AST 20 (14-36) IU/L ALT 17 (<35) IU/L Alkaline Phosphatase 86 (38-126) U/L Total Creatine Kinase (30-135) U/L CK-MB (CK-2) CK-MB (CK-2) Rel Index Troponin I < 0.012 (0.01-0.034) ng/mL B-Natriuretic Peptide (<100) Total Protein 7.0 (6.3-8.2) g/dL Albumin 4.2 (3.5-5.0) g/dL Globulin 2.8 (1.7-4.1) g/dL Albumin/Globulin Ratio 1.5 (1.0-2.8) Procalcitonin < 0.05 (<0.5) ng/mL Imaging Data Chest x-ray: Attestation: I personally reviewed and interpreted this imaging study as follows: My impression: NAP Radiologist's impression: [address] [address] XRay Report Signed Patient: Laila Nino [facility]#: [id number] : 8Acct:[id number] Age/Sex: 69 / FDate of Service: 08/09/19 Loc: ED Accession Number: [id number] Procedure: XR chest 1V Ordering Provider: Silvia Crenshaw D.O. PROCEDURE: XR CHEST 1V INDICATIONS: shortness of breath, chest pain TECHNIQUE: One view of the chest was acquired. COMPARISON: [facility], CR, XR CHEST 2V, 07/04/2019, 16:00. FINDINGS: Surgical changes and devices: None. Lungs and pleura: Lungs are clear. No pleural effusions or pneumothorax. Mediastinum: Mediastinal contours appear normal. Heart size is normal. Bones and chest wall: No suspicious bony lesions. Overlying soft tissues appear unremarkable. IMPRESSION: Stable chest. No acute cardiopulmonary process is evident. Dictated by: Adolfo Almanza M.D. on 08/09/2019 at 7:10 Approved by: Adolfo Almanza M.D. on 08/09/2019 at 7:10 Discharge Plan Departure Patient Disposition: Home Clinical Impression: Atypical chest pain Discharge Date/Time: 08/09/19 08:52 Instructions: Cough, DI for Atypical Chest Pain Activity Restrictions/Additional Instructions: *You have been diagnosed with atypical chest pain *What to do: It is unknown what is causing her cough and pain. Possibly acid reflux. *Continue to take medications as directed Tessalon Perles (cough pill), Protonix 40 mg once a day for 10 days--> SENT TO [facility] [place] Codeine Cough Syrup (Printed) to be used as needed at night for cough. Codeine is an opioid medication which is sedating and means you cannot drive, operate heavy machinery, sign legal documents etc. Additionally it can make you constipated so consider taking a stool softener while taking this medication. Also, consider over the counter medications like Maalox if the burning continues as this provided some relief in the emergency depeartment *Follow up with your primary care provider in 2-3 days. Call the office and tell them you were seen in the Emergency Department and we want you to be seen in follow up. *Return to ER if you should have increasing chest pain, cough, shortness of breath, or any new, worsening or concerning symptoms Prescriptions: New pantoprazole 40 mg tablet,delayed release (DR/EC) 40 mg PO DAILY Qty: 10 RF: 0 benzonatate [Tessalon Perles] 100 mg capsule 100 mg PO BID-TID PRN (Reason: cough) Qty: 20 RF: 0 promethazine-codeine 6.25-10 mg/5 mL syrup 5 ml PO Q4-6H PRN (Reason: cough) Qty: 473 RF: 0 No Action NITROGLYCERIN (Nitrostat) 0.4 mg Sublingual PRN Qty: 0 RF: 0 Fish Oil 1,000 mg PO BID Qty: 0 RF: 0 losartan 100 mg tablet 100 mg PO DAILY Qty: 90 RF: 0 carvedilol [Coreg] 25 mg tablet 37.5 mg PO BID Qty: 270 RF: 3 isosorbide mononitrate 60 mg tablet extended release 24 hr See Rx Instructions PO DAILY RF: 0 spironolactone 25 mg tablet 25 mg PO DAILY RF: 0 bumetanide 1 mg tablet 1 mg PO DAILY PRNRF: 0 aspirin 81 mg tablet 81 mg PO DAILY RF: 0 varicella-zoster [id number]-AS01B (PF) [Shingrix (PF)] 50 mcg/0.5 mL suspension for reconstitution 0.5 ml IM ONCE Qty: 1 RF: 0 albuterol sulfate [Ventolin HFA] 90 mcg/actuation HFA aerosol inhaler 2 puff inhalation Q4HP PRN (Reason: shortness of breath or wheezing) Qty: 1 RF: 0 Pradaxa 150 mg Capsule 150 mg BID RF: 0 (DME) Resmed Aircurve 10 CPAP Qty: 1 RF: 0 Referrals: Soledad Vick DO [Primary Care Provider] -
--- NOTE | 2019-08-09 04:29 | DI.RAD.S_ITS ---
PROCEDURE: XR CHEST 1V INDICATIONS: shortness of breath, chest pain TECHNIQUE: One view of the chest was acquired. COMPARISON: [facility], CR, XR CHEST 2V, 07/04/2019, 16:00. FINDINGS: Surgical changes and devices: None. Lungs and pleura: Lungs are clear. No pleural effusions or pneumothorax. Mediastinum: Mediastinal contours appear normal. Heart size is normal. Bones and chest wall: No suspicious bony lesions. Overlying soft tissues appear unremarkable. IMPRESSION: Stable chest. No acute cardiopulmonary process is evident. Dictated by: Adolfo Almanza M.D. on 08/09/2019 at 7:10 Approved by: Adolfo Almanza M.D. on 08/09/2019 at 7:10
[2019-08-09 04:38] LABS: Add Manual Diff / Slide Review NO; Basophils Absolute Auto 0 /uL (0-100); Basophils Percent Auto 0.8 % (0-2); Eosinophils Absolute Auto 100 /uL (0-450); Eosinophils Percent Auto 2.1 % (2-4); Hemoglobin 13.4 g/dL (12.0-16.0); Lymphocytes Absolute Auto 1100 /uL (1100-4500); Lymphocytes Percent Auto 21.9 % (25-40); Mean Corpuscular HGB Conc 33.6 % (30-36); Mean Corpuscular Hemoglobin 27.7 PG (26-34); Mean Corpuscular Volume 82.6 fL (80-100); Monocytes Absolute Auto 400 /uL (0-900); Monocytes Percent Auto 8.2 % (3-14); Neutrophils Absolute Auto 3400 /uL (1500-7000); Platelet Count 238 X10^3/uL (150-400); Red Blood Cell Count 4.84 X10^6/uL (4.0-5.2); Red Cell Distribution Width 15.5 % (11.6-14.8)
[2019-08-09 04:39] LABS: INR 1.2 (0.9-1.3); Prothrombin Time 13.4 SECONDS (10.1-12.7)
[2019-08-09] MEDS: FUROSEMIDE 40 MG/4 ML VIAL IV (04:40)
[2019-08-09] MEDS: PANTOPRAZOLE 40 MG VIAL IV (04:40)
[2019-08-09 04:41] LABS: PTT Partial Thromboplastin Tim 68 SECONDS (26.4-36.2)
[2019-08-09 04:42] LABS: Creatine Kinase 75 U/L (30-135)
[2019-08-09 04:47] LABS: Alanine Aminotransferase 17 IU/L (<35); Albumin 4.2 g/dL (3.5-5.0); Albumin Globulin Ratio 1.5 (1.0-2.8); Alkaline Phosphatase 86 U/L (38-126); Aspartate Aminotransferase 20 IU/L (14-36); BUN Creatinine Ratio 35.5 (6-22); Bilirubin Total 0.9 mg/dL (0.2-1.3); Blood Urea Nitrogen 39 mg/dL (7-17); Calcium 9.3 mg/dL (8.4-10.2); Carbon Dioxide 25 mmol/L (22-32); Chloride 108 mmol/L (98-107); Globulin 2.8 g/dL (1.7-4.1); Glucose 119 mg/dL (80-110); HEMOLYSIS 17 (0-50); Potassium 4.1 mmol/L (3.4-5.1); Sodium 140 mmol/L (137-145)
[2019-08-09 04:54] LABS: Troponin I < 0.012 ng/mL (0.01-0.034)
[2019-08-09 04:58] LABS: B Type Natriuretic Peptide < 100 (<100)
[2019-08-09 05:03] LABS: Procalcitonin < 0.05 ng/mL (<0.5)
[2019-08-09] MEDS: MAG HYDROX/ALUMINUM/SIMETH SUS 20 ML, LIDOCAINE VISCOUS 2% 15 ML PO (05:14)
[2019-08-09] MEDS: ALBUTEROL/IPRATROPIUM 3 ML AMPUL INH (05:35)
[2019-08-09 08:26] LABS: Troponin I < 0.012 ng/mL (0.01-0.034)
== END 2019-08-09 08:52 | disposition home or self-care (01) ==
PROVIDERS: Emergency Medicine; Emergency Provider Emergency Medicine; PCP Family Medicine
DX: R07.89 Other chest pain (principal); R06.02 Shortness of breath
CPT/HCPCS: 36415; 71045; 80053; 82550; 83735; 83880; 84145; 84484; 85025; 85610; 85730; 93005; 94640; 96374; 96375; 99283; 99285; C9113; J1940

== ENCOUNTER → 2019-09-08 11:02 | Outpatient (CLI) | payer MEDICARE, BC, SELFPAY ==
[2019-09-08 14:40] LABS: BUN Creatinine Ratio 26.7 (6-22); Blood Urea Nitrogen 32 mg/dL (7-17); Carbon Dioxide 28 mmol/L (22-32); Chloride 104 mmol/L (98-107); Estimated Glomerular Filt Rate 44.3 mL/min (>60); Glucose 88 mg/dL (80-110); HEMOLYSIS < 15 (0-50); Magnesium 2.1 mg/dL (1.6-2.3); Sodium 141 mmol/L (137-145)
== END ==
PROVIDERS: PCP Family Medicine; Visit Provider Family Medicine
DX: I10 Essential (primary) hypertension (principal)
CPT/HCPCS: 36415; 80048; 83735

== ENCOUNTER → 2019-09-19 09:53 | Outpatient (CLI) | payer MEDICARE, BC, SELFPAY ==
[2019-09-19 11:16] LABS: BUN Creatinine Ratio 24.2 (6-22); Blood Urea Nitrogen 29 mg/dL (7-17); Calcium 9.3 mg/dL (8.4-10.2); Carbon Dioxide 29 mmol/L (22-32); Chloride 106 mmol/L (98-107); Estimated Glomerular Filt Rate 44.3 mL/min (>60); Glucose 94 mg/dL (80-110); HEMOLYSIS < 15 (0-50); Potassium 4.7 mmol/L (3.4-5.1); Sodium 141 mmol/L (137-145)
== END ==
PROVIDERS: PCP Family Medicine; Visit Provider Family Medicine
DX: I10 Essential (primary) hypertension (principal)
CPT/HCPCS: 36415; 80048

== ENCOUNTER → 2019-09-29 09:28 | Outpatient (CLI) | payer MEDICARE, BC, SELFPAY ==
[2019-09-29 11:05] LABS: Free T3, Triiodothyronine Free 3.74 pg/mL (2.77-5.27); Free T4, Direct Thyroxine 1.24 ng/dL (0.78-2.19)
[2019-09-29 11:18] LABS: Thyroid Stimulating Hormone 2.39 uIU/mL (0.47-4.68)
[2019-10-02 17:02] LABS: Anti Thyroglobulin Antibody < 1 IU/mL (< 2); Thyroid Peroxidase Antibodies 1 IU/mL (< 9)
[2019-10-03 14:35] LABS: Triiodothyronine T3 Reverse 23 ng/dL (8-25)
== END ==
PROVIDERS: PCP Family Medicine; Visit Provider Family Medicine
DX: E04.1 Nontoxic single thyroid nodule (principal)
CPT/HCPCS: 36415; 84439; 84443; 84481; 84482; 86376; 86800

== ENCOUNTER 2019-10-11 02:45 | Emergency (ER) | payer MEDICARE, BC, SELFPAY ==
--- NOTE | 2019-10-11 02:48 | ED.CHESTPAIN ---
HPI - Chest Pain General Chief Complaint: Chest Pain Stated Complaint: Chest pain Time Seen by Provider: 10/11/19 02:47 Source: patient and family Mode of arrival: Ambulatory Limitations: no limitations History of Present Illness HPI narrative: [age] old female with extensive cardiac history presents with her sister in the chief complaint of what she describes is anginal chest heaviness and pressure with radiation to her back since about 11:00 p.m. tonight. It started while at rest while she was watching TV. She denies any additional radiation of her discomfort nor other symptoms such as dizziness, weakness or lightheadedness. She complains of some shortness of breath but states it is unchanged from how she normally feels. She has had no nausea, vomiting or diaphoresis. She denies recent travel, injury or hospitalization. Patient has history of multiple stents and last heart cath was last September and apparently noted some narrowing of an unstented artery. Her spent grain dryer placed her on Ranexa and states that if she continues to have anginal chest pain that she will likely need another heart cath and stent. She states she recently had a stress test which demonstrated evolution of disease. She took 3 NG at home without relief. complaint: chest pain Onset (ago): hour(s) Duration: constant Onset: during rest Pain location: substernal Severity: moderate Quality: tightness, aching and heaviness Pain radiation: back Relieving factors: nothing Exacerbating factors: nothing Associated symptoms: dyspnea Treatments prior to arrival chest pain: nitroglycerin Related Data On Oral Contraceptives: No Home Medications Medication Instructions Recorded Confirmed NITROGLYCERIN (Nitrostat) 0.4 mg SUBLINGUAL PRN #0 10/11/10 09/26/19 Fish Oil 1,000 mg PO BID #0 11/29/12 09/26/19 dabigatran etexilate [Pradaxa] 150 mg BID 01/07/19 09/26/19 isosorbide mononitrate 60 mg See Rx Instructions PO DAILY 03/08/19 09/26/19 tablet,extended release 24 hr Resmed Aircurve 10 CPAP #1 ea 03/20/19 09/26/19 aspirin 81 mg tablet 81 mg PO DAILY 08/08/19 09/26/19 ranolazine 500 mg tablet,extended 500 mg PO BID 09/11/19 09/26/19 release,12 hr Previous Rx's Medication Instructions Recorded varicella-zoster gE-AS01B (PF) 50 0.5 ml IM ONCE #1 each 08/01/18 mcg/0.5 mL IM susp kit albuterol sulfate 90 mcg/actuation 2 puff INHALATION Q4HP PRN #1 inh 05/23/19 aerosol inhaler carvedilol 25 mg tablet 37.5 mg PO BID #270 tab 08/06/19 benzonatate [Tessalon Perles] 100 mg PO BID-TID PRN #20 cap 08/09/19 furosemide 40 mg tablet 20 mg PO DAILY #30 tab 09/11/19 losartan 100 mg tablet 100 mg PO DAILY #90 tab 09/29/19 Allergies Allergy/AdvReac Type Severity Reaction Status Date / Time Haemophilus B polysaccharide Allergy Intermediate YRS AGO Verified 09/26/19 09:57 conj w CAUSED [From TriHIBit] FEVER, RECENTLY MOUTH SORES adhesive Allergy Mild Verified 09/26/19 09:57 diazepam Allergy Mild OPPOSITE Verified 09/26/19 09:57 EFFECT, BECAME HYPER/INCOMPLIANT--O.K. WITH VERSED diphtheria,pertussis Allergy Mild YRS AGO Verified 09/26/19 09:57 (acellular),te CAUSED [From TriHIBit] FEVER, RECENTLY MOUTH SORES pseudoephedrine Allergy Mild INCREASED Verified 09/26/19 09:57 HEART RATE Sulfa (Sulfonamide Allergy Unknown Verified 09/26/19 09:57 Antibiotics) [SULFA (SULFONAMIDE ANTIBIOTICS)] benazepril [From Lotensin] Allergy angioadema Verified 09/26/19 09:57 Beta-Blockers AdvReac Mild LOW Verified 09/26/19 09:57 (Beta-Adrenergic Bloc TOLERANCE - HR IN 30s - HOSPITALIZED diazepam AdvReac Intermediate anxiety Uncoded 09/26/19 09:57 Review of Systems Constitutional Constitutional: Denies chills, Denies fatigue, Denies fever(s), Denies frequent falls, Denies lethargy and Denies weakness Eyes Eyes: Denies change in vision, Denies eye discharge, Denies irritation and Denies loss of vision ENT Ears, Nose, Mouth, and Throat: Denies change in voice, Denies dizziness, Denies neck pain, Denies sore throat and Denies throat swelling Cardiovascular Cardiovascular: Reports chest pain, Denies irregular heart rhythm, Denies lightheadedness, Denies palpitations, Reports dyspnea, Denies dyspnea on exertion and Denies orthopnea Respiratory Respiratory: Denies cough, Reports dyspnea, Denies dyspnea on exertion and Denies wheezing Gastrointestinal Gastrointestinal: Denies abdominal pain, Denies change in bowel habits, Denies diarrhea, Denies nausea and Denies vomiting Genitourinary Genitourinary: Denies hematuria, Denies flank pain, Denies urinary incontinence and Denies urinary urgency Musculoskeletal Musculoskeletal: Denies back pain, Denies muscle weakness, Denies neck pain, Denies numbness and Denies tingling Integumentary/Breasts Skin/Breast: Denies pruritus, Denies erythema, Denies rash and Denies wounds Neurologic Neurologic: Denies behavioral changes, Denies confusion, Denies dizziness, Denies frequent falls, Denies loss of vision, Denies numbness, Denies tingling and Denies weakness Psychiatric Psychiatric: Denies anxiety, Denies behavioral changes, Denies confusion, Denies depression, Denies homicidal ideation and Denies suicidal ideation Endocrine Endocrine: Denies fatigue, Denies flushing and Denies palpitations Hematologic/Lymphatic Hematologic/Lymphatic: Denies easy bruising Allergic/Immunologic Allergic/Immunologic: Denies urticaria, Denies throat swelling and Denies wheezing Patient History Medical History Angioedema (Chronic) Asthma (Resolved) CAD (coronary artery disease) (Chronic 2013) Coccidioidomycosis (Resolved ~1962) EBV infection (Resolved ~1962) Elevated coronary artery calcium score (Chronic) 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) History of recurrent pneumonia (Resolved) Hypertension (Chronic) Prinzmetal's angina (Chronic 1975) Proteus enteritis (Inactive) Shingles (Resolved 2016) Sleep apnea (Chronic) Statin intolerance (Chronic) Thyroid nodule (Acute) Surgical History History of arthroplasty (Resolved 12/09/12) History of arthroplasty (Resolved 01/20/13) History of cataract removal with insertion of prosthetic lens (Resolved 2014) History of cholecystectomy (Resolved) History of tonsillectomy (Resolved) Stented coronary artery (Resolved 2013) Family History Father Lung cancer Mother Parkinson's disease Breast cancer CAD (coronary artery disease) Social History marital status: household members: friend(s) lives independently: No caregiver/support person: No pets and animals: Yes Smoking Status: Never smoker Smoking Status: Never smoker Exam Narrative Exam Narrative: GENERAL: [69] year old patient appears stated age. Obese patient resting, in pain HEAD: Atraumatic. Normocephalic. EYES: Pupils equal round and reactive. Extraocular motions intact. No scleral icterus. No injection or drainage. ENT: Nose without bleeding, purulent drainage. Throat without erythema, tonsillar hypertrophy or exudate. Airway patent. NECK: Trachea midline. Non tender CARDIOVASCULAR: Regular rate and rhythm without murmurs, gallops, or rubs. Not reproduceable on palpation or deep breath RESPIRATORY: Clear to auscultation. Breath sounds equal bilaterally. No wheezes, rales, or rhonchi. GASTROINTESTINAL: Abdomen soft, non-tender, nondistended. EXTREMITIES: No edema or joint tenderness. BACK: Nontender without deformity or crepitance. No flank tenderness. NEURO: AOx3. SKIN: No rash or erythema of visible areas Initial Vital Signs Initial Vital Signs: Vital Signs Temperature 98.5 F 10/11/19 02:53 Pulse Rate 70 10/11/19 02:53 Respiratory Rate 20 10/11/19 02:53 Blood Pressure 195/75 H 10/11/19 02:53 Pulse Oximetry 98 10/11/19 02:53 Course Orders Ordered: ED Orders 10/11/19 02:50 B Type Natriuretic Peptide Stat Complete Blood Count AUTO DIFF Stat Comprehensive Metabolic Panel Stat D Dimer Stat Lipase Stat Troponin & CK Cardiac Panel Stat 10/11/19 02:51 XR chest 1V Stat EKG-12 Lead Stat 10/11/19 05:05 Troponin I Stat Sodium Chloride (Normal Saline 0.9%) 1,000 mls @ 150 mls/hr IV CONT HEVER Last Admin: 10/11/19 03:09 Dose: 150 mls/hr Documented by: MMCFARL Nitroglycerin (Nitrostat) 0.4 mg SL [id number] PRN PRN Reason: Chest Pain Last Admin: 10/11/19 03:20 Dose: 0.4 mg Documented by: Admin: 10/11/19 03:09 Dose: 0.4 mg Documented by: [email or web address] Reevaluation(s) Reevaluation #1: mild improvement after 1st NG, no change with second Consultations Consultation #1: call to cardio at [facility] to discuss history and physical. We discussed presentation including longer duration and intensity of symptoms but nonischemic EKGs and normal troponin. Recommendation to repeat troponin at 2 hour gregg (from arrival). If repeat is also normal then recommend to go home with alterations in meds and close follow up vs. transfer. Vital Signs Vital signs: Vital Signs - 8 hr 10/11/19 02:53 10/11/19 03:20 10/11/19 04:30 Temperature 98.5 F Pulse Rate 70 64 62 Respiratory Rate 20 17 Blood Pressure 195/75 H 164/74 H Blood Pressure [Left Arm] 156/60 H Pulse Oximetry 98 94 10/11/19 05:30 Temperature Pulse Rate 61 Respiratory Rate 18 Blood Pressure Blood Pressure [Left Arm] 157/91 H Pulse Oximetry 94 MDM - Chest Pain Lab Data Result diagrams: 10/11/19 02:50 10/11/19 02:50 Labs: Lab Results 10/11/19 10/11/19 10/11/19 Range/Units 02:50 02:50 02:50 WBC 6.7 (4.5-11.0) X10^3/uL RBC 4.43 (4.0-5.2) X10^6/uL Hgb 12.4 (12.0-16.0) g/dL Hct 37.1 (36-46) % MCV 83.7 (80-100) fL MCH 28.1 (26-34) PG MCHC 33.5 (30-36) % RDW 14.7 (11.6-14.8) % Plt Count 235 (150-400) X10^3/uL Neut % (Auto) 66.5 (50-75) % Lymph % (Auto) 22.5 L (25-40) % [place] % (Auto) 8.2 (3-14) % Eos % (Auto) 2.0 (2-4) % Baso % (Auto) 0.8 (0-2) % Neut # (Auto) 4500 (1850-7314) /uL Lymph # (Auto) 1500 (1384-9302) /uL [place] # (Auto) 600 (0-900) /uL Eos # (Auto) 100 (0-450) /uL Baso # (Auto) 100 (0-100) /uL D-Dimer 215 (<230) ng/mL Sodium (137-145) mmol/L Potassium (3.4-5.1) mmol/L Chloride (98-107) mmol/L Carbon Dioxide (22-32) mmol/L BUN (7-17) mg/dL Creatinine (0.52-1.04) mg/dL Estimated GFR (>60) mL/min BUN/Creatinine Ratio (6-22) Glucose (80-110) mg/dL Calcium (8.4-10.2) mg/dL Total Bilirubin (0.2-1.3) mg/dL AST (14-36) IU/L ALT (<35) IU/L Alkaline Phosphatase (38-126) U/L Total Creatine Kinase (30-135) U/L CK-MB (CK-2) CK-MB (CK-2) Rel Index Troponin I (0.01-0.034) ng/mL B-Natriuretic Peptide < 100 (<100) Total Protein (6.3-8.2) g/dL Albumin (3.5-5.0) g/dL Globulin (1.7-4.1) g/dL Albumin/Globulin Ratio (1.0-2.8) Lipase (23-300) U/L 10/11/19 10/11/19 Range/Units 02:50 05:05 WBC (4.5-11.0) X10^3/uL RBC (4.0-5.2) X10^6/uL Hgb (12.0-16.0) g/dL Hct (36-46) % MCV (80-100) fL MCH (26-34) PG MCHC (30-36) % RDW (11.6-14.8) % Plt Count (150-400) X10^3/uL Neut % (Auto) (50-75) % Lymph % (Auto) (25-40) % [place] % (Auto) (3-14) % Eos % (Auto) (2-4) % Baso % (Auto) (0-2) % Neut # (Auto) (1739-7424) /uL Lymph # (Auto) (1194-7724) /uL [place] # (Auto) (0-900) /uL Eos # (Auto) (0-450) /uL Baso # (Auto) (0-100) /uL D-Dimer (<230) ng/mL Sodium 139 (137-145) mmol/L Potassium 4.2 (3.4-5.1) mmol/L Chloride 105 (98-107) mmol/L Carbon Dioxide 27 (22-32) mmol/L BUN 27 H (7-17) mg/dL Creatinine 1.00 (0.52-1.04) mg/dL Estimated GFR 54.7 L (>60) mL/min BUN/Creatinine Ratio 27.0 H (6-22) Glucose 108 (80-110) mg/dL Calcium 9.2 (8.4-10.2) mg/dL Total Bilirubin 0.6 (0.2-1.3) mg/dL AST 21 (14-36) IU/L ALT 17 (<35) IU/L Alkaline Phosphatase 98 (38-126) U/L Total Creatine Kinase 49 (30-135) U/L CK-MB (CK-2) TNP CK-MB (CK-2) Rel Index TNP Troponin I < 0.012 < 0.012 (0.01-0.034) ng/mL B-Natriuretic Peptide (<100) Total Protein 7.0 (6.3-8.2) g/dL Albumin 4.0 (3.5-5.0) g/dL Globulin 3.0 (1.7-4.1) g/dL Albumin/Globulin Ratio 1.3 (1.0-2.8) Lipase 271 (23-300) U/L ECG Data Attestation: I personally reviewed and interpreted this ECG as follows: Prior ECG tracings: available for review Interpretation: EKG is normal sinus rhythm rate [68 ] and free of any signs of ischemia or ectopy. No ST segmental elevation or depression. No T wave inversions MDM Narrative Medical decision making narrative: Multiple causes of chest pain considered including VA, PE, pneumothorax, pneumonia, aortic dissection, and pleurisy. Patient reports no radiation, no diaphoresis, no provocation with exertion, and no vomiting Patient's symptoms improved or duration of stay with above-stated therapies. Findings and discharge diagnosis discussed with patient/family followed by verbalization of understanding Return precautions discussed with patient/family whom verbalize understanding. Discharge Plan Departure Patient Disposition: Home Clinical Impression: Chest pain Qualifiers: Chest pain type: unspecified Qualified Code(s): R07.9 - Chest pain, unspecified Instructions: DI for Angina Activity Restrictions/Additional Instructions: *You have been diagnosed with [ chest pain ] *What to do: *Take medications as directed: per your cardiology group's recommendations please increase your Ranexa to 1000mg twice daily *Call the cardiology office on Sunday. Tell them you were seen in the Emergency Department and we want you to be seen early this week in follow up *Return to ER if you should have any new, worsening or concerning symptoms Prescriptions: No Action NITROGLYCERIN (Nitrostat) 0.4 mg Sublingual PRN Qty: 0 RF: 0 Fish Oil 1,000 mg PO BID Qty: 0 RF: 0 carvedilol [Coreg] 25 mg tablet 37.5 mg PO BID Qty: 270 RF: 3 losartan 100 mg tablet 100 mg PO DAILY Qty: 90 RF: 0 isosorbide mononitrate 60 mg tablet extended release 24 hr See Rx Instructions PO DAILY RF: 0 aspirin 81 mg tablet 81 mg PO DAILY RF: 0 varicella-zoster [id number]-AS01B (PF) [Shingrix (PF)] 50 mcg/0.5 mL suspension for reconstitution 0.5 ml IM ONCE Qty: 1 RF: 0 albuterol sulfate [Ventolin HFA] 90 mcg/actuation HFA aerosol inhaler 2 puff inhalation Q4HP PRN (Reason: shortness of breath or wheezing) Qty: 1 RF: 0 ranolazine [Ranexa] 500 mg tablet extended release 12 hr 500 mg PO BID RF: 0 furosemide 40 mg tablet 20 mg PO DAILY Qty: 30 RF: 0 Pradaxa 150 mg Capsule 150 mg BID RF: 0 benzonatate [Tessalon Perles] 100 mg capsule 100 mg PO BID-TID PRN (Reason: cough) Qty: 20 RF: 0 (DME) Resmed Aircurve 10 CPAP Qty: 1 RF: 0 Referrals: Cruz Nguyen [Non-Staff] - Soledad Vick DO [Primary Care Provider] -
--- NOTE | 2019-10-11 02:51 | DI.RAD.S_ITS ---
PROCEDURE: XR CHEST 1V INDICATIONS: chest pain TECHNIQUE: One view of the chest was acquired. COMPARISON: [facility], CR, XR CHEST 2V, 09/20/2018, 12:16. [facility], CR, XR CHEST 2V, 07/04/2019, 16:00. [facility], CR, XR CHEST 1V, 08/09/2019, 4:33. FINDINGS: Surgical changes and devices: None. Lungs and pleura: Low lung volumes are noted. This causes a crowded appearance to the lung markings and limits evaluation. Mild interstitial prominence is seen. Blunting of the left costophrenic angle is seen. Mediastinum: The cardiac contours are mildly enlarged. The aorta demonstrates calcification and tortuosity. Bones and chest wall: Age-appropriate bony degenerative changes are seen. No suspicious bony lesions. Overlying soft tissues appear unremarkable. IMPRESSION: Cardiomegaly with interstitial prominence and a small left-sided pleural effusion. Please correlate with patient presentation, physical examination findings, and laboratory values for congestive heart failure. Dictated by: Andrea Michelle M.D. on 10/11/2019 at 8:49 Approved by: Andrea Michelle M.D. on 10/11/2019 at 8:50
[2019-10-11 02:53] VITALS: BP 195/75; PULSE 70; RESP 20; TEMP 36.9; O2SAT 98
[2019-10-11 03:08] LABS: Add Manual Diff / Slide Review NO; Basophils Absolute Auto 100 /uL (0-100); Basophils Percent Auto 0.8 % (0-2); Eosinophils Absolute Auto 100 /uL (0-450); Hematocrit 37.1 % (36-46); Hemoglobin 12.4 g/dL (12.0-16.0); Lymphocytes Absolute Auto 1500 /uL (1100-4500); Lymphocytes Percent Auto 22.5 % (25-40); Mean Corpuscular HGB Conc 33.5 % (30-36); Mean Corpuscular Hemoglobin 28.1 PG (26-34); Mean Corpuscular Volume 83.7 fL (80-100); Monocytes Absolute Auto 600 /uL (0-900); Monocytes Percent Auto 8.2 % (3-14); Neutrophils Absolute Auto 4500 /uL (1500-7000); Neutrophils Percent Auto 66.5 % (50-75); Platelet Count 235 X10^3/uL (150-400); Red Blood Cell Count 4.43 X10^6/uL (4.0-5.2); Red Cell Distribution Width 14.7 % (11.6-14.8); White Blood Cell Count 6.7 X10^3/uL (4.5-11.0)
[2019-10-11] MEDS: SODIUM CHLORIDE 0.9% 1,000 ML 150 ML IV (03:09)
[2019-10-11] MEDS: NITROGLYCERIN 0.4 MG SL TAB SL ×2 (03:09→03:20)
[2019-10-11 03:14] LABS: D Dimer 215 ng/mL (<230)
[2019-10-11 03:15] LABS: Alanine Aminotransferase 17 IU/L (<35); Albumin Globulin Ratio 1.3 (1.0-2.8); Alkaline Phosphatase 98 U/L (38-126); Aspartate Aminotransferase 21 IU/L (14-36); Bilirubin Total 0.6 mg/dL (0.2-1.3); Blood Urea Nitrogen 27 mg/dL (7-17); Calcium 9.2 mg/dL (8.4-10.2); Carbon Dioxide 27 mmol/L (22-32); Chloride 105 mmol/L (98-107); Creatine Kinase 49 U/L (30-135); Estimated Glomerular Filt Rate 54.7 mL/min (>60); Glucose 108 mg/dL (80-110); HEMOLYSIS 18 (0-50); Lipase 271 U/L (23-300); Potassium 4.2 mmol/L (3.4-5.1); Sodium 139 mmol/L (137-145)
[2019-10-11 03:20] VITALS: BP 164/74; PULSE 64
[2019-10-11 03:27] LABS: Troponin I < 0.012 ng/mL (0.01-0.034)
[2019-10-11 03:29] LABS: B Type Natriuretic Peptide < 100 (<100)
[2019-10-11 04:30] VITALS: BP 156/60; PULSE 62; RESP 17; O2SAT 94
[2019-10-11 05:30] VITALS: BP 157/91; PULSE 61; RESP 18; O2SAT 94
[2019-10-11 05:39] LABS: Troponin I < 0.012 ng/mL (0.01-0.034)
== END 2019-10-11 06:08 | disposition home or self-care (01) ==
PROVIDERS: Emergency Provider Emergency Medicine; PCP Family Medicine
DX: R07.9 Chest pain, unspecified (principal)
CPT/HCPCS: 36415; 71045; 80053; 82550; 83690; 83880; 84484; 85025; 85379; 93005; 96360; 96361; 99284; 99285

== ENCOUNTER 2019-12-02 09:00 | Outpatient (RCR) | payer MEDICARE, BC, SELFPAY ==
--- NOTE | 2019-03-13 15:48 | PT.OIE ---
Current Diagnoses Pain in right shoulder (03/13/19) Cervicalgia (03/13/19) Pain in thoracic spine (03/13/19) Past Medical History (Last Reviewed 02/28/19 @ 10:34 by Erick Jasso MD) Angioedema (Chronic) CAD (coronary artery disease) (Chronic 2013) Elevated coronary artery calcium score (Chronic) Hypertension (Chronic) Prinzmetal's angina (Chronic 1975) Sleep apnea (Chronic) Statin intolerance (Chronic) Asthma (Resolved) History of recurrent pneumonia (Resolved) Shingles (Resolved 2016) Past Surgical History (Last Reviewed 02/28/19 @ 10:34 by Erick Jasso MD) History of arthroplasty (Resolved 12/09/12) History of arthroplasty (Resolved 01/20/13) History of cataract removal with insertion of prosthetic lens (Resolved 2014) History of cholecystectomy (Resolved) History of tonsillectomy (Resolved) Stented coronary artery (Resolved 2013) Provider Visit Care Team Role Provider Type Soledad Vick DO Primary Care Provider Physician Specialty: Family Practice Address: [address] [place] [address], [id number] Email: [email or web address] Arjun Lay MD Attending Provider Non-Staff Specialty: Neurosurgery Address: [address] [place] [address], [phone] Email: Physical Therapy Initial Evaluation PT-OP-A Visit Information Start: 03/13/19 09:21 Freq: Status: Active Protocol: Document 03/13/19 13:11 [facility] (Rec: 03/13/19 13:41 [facility] [id number]) Out-Patient Physical Therapy Visit Information Visit Information Visit Type Initial Evaluation Visit Start Time 09:45 Visit Stop Time 10:45 Total Visit Minutes 60 Visit Number 1 Number of GRINDER CHIPPER Visits 0 Evaluation Information Evaluation Date 03/13/19 Precautions Precautions Her past medical history is notable for atrial fibrillation and coronary disease. She has had prior stents placed. She has had a prior CVA. She has had a history of thyroid nodule. She had a biopsy done that was nondiagnostic. She also has a history of a prior melanoma and diagnosis of monoclonal gammopathy. Patient reports since last seen in PT had a tooth abscess with bone infection necessitating 3 months of PT, and was diagnosed with anemia recently for which she will soon received iron infusions. PT-OP-B Current Condition Start: 03/13/19 09:21 Freq: Status: Active Protocol: Document 03/13/19 13:11 [facility] (Rec: 03/13/19 13:41 [facility] [id number]) Current Condition History of Current Condition Onset Date 1+ yr Current Complaints pain c/s, thoracic spine, luisa shoulders. History of Current Condition Patient reports persistent, worsening, function-limiting pain luisa cervical, thoracic, and shoulders, most severe at bra line. Pain severely limits her activity tolerance and ability to sleep. Gradual onset, no traumatic injury. States her activity level is very limited. Prior Treatments and Tests MRI thoracic spine 11/28/18 showed marked facet arthrosis with mild neural foraminal stenosis bilateral T2-3 through T4-5 and right T10-11, otherwise mild/moderate diffuse thoracic facet joint arthrosis, paracentral protrusions causing trace spinal cord flattening T6-T7 through T8-9, moderate edematous (type I) discogenic endplate marrow degeneration T7-8 through T9-T10, partly included multilevel cervical and upper lumbar spinal stenosis MRI cervical spine 01/10/19 showed uncovertebral and facet joint arthrosis causing mod/ marked bilateral neural foraminal stenosis C3-C4, C5- C6, and C6-7. Mild/moderate central stenosis at C3-C4 through C6-C7 due to shallow central protrusion C4-C5, disc /osteophyte complexes at the other levals, and ligamenta flava hypertrophy at C3-C4. Resulting spinal cord flattening, greatest at C3-C4, mild neural foraminal stenosis at bilateral C4-C5 and left C7-T1. Future Testing and Treatments Planned Possible referral to pain management physician if PT not helpful. Treatment Goals Patient/Caregiver Goals Decrease pain and improve her activity tolerance and quality of life. Prior Functional Status Baseline Function- ADL's Independent Baseline Function- Mobility Independent Baseline Function- Gait Independent Baseline Function- Recreation/Hobbies no restrictions Current Functional Impairments (Reported) Functional Limitations- ADL's painful Functional Limitations- Mobility/Gait painful Functional Limitations- Recreation/ painful and extremely limited Hobbies Functional Limitations- Other unable to lay supine due to pain, can only tolerate laying on her right side PT-OP-C Subjective Start: 03/13/19 09:21 Freq: Status: Active Protocol: Document 03/13/19 13:11 [facility] (Rec: 03/13/19 13:41 [facility] [id number]) OP-PT Pain Assessment Location bilateral thoracic spine Intensity 8 luisa cervical spine Intensity 6 luisa shoulders Intensity 5 Home Pain Medication Use Patient Goal Patient does not want to use pain medication; States Dr. Lay recommended steroids and opiates but at this time she refuses due to potential interactions with her other medications as well as potential for addiction. Pain Behaviors Pain Behaviors Facial Grimacing Restlessness Wincing PT-OP-F Manual Assessment Start: 03/13/19 09:21 Freq: Status: Active Protocol: Document 03/13/19 13:11 [facility] (Rec: 03/13/19 13:41 [facility] [id number]) Manual Assessments Soft Tissue Assessment Soft Tissue Mobility Assessment palpable tightness throughout SCM, upper traps, levator scap , rhomboids PT-OP-H Neuro Start: 03/13/19 09:21 Freq: Status: Active Protocol: Document 03/13/19 13:11 [facility] (Rec: 03/13/19 13:41 [facility] [id number]) Sensation Evaluation Comments Summary Comments denies N/T at this time. PT-OP-J Posture/Palpation/Skin Start: 03/13/19 09:21 Freq: Status: Active Protocol: Document 03/13/19 13:11 [facility] (Rec: 03/13/19 13:41 [facility] [id number]) Posture Evaluation Position Sitting Head/C-Spine Posture C-Spine Flattened T-Spine Posture Increased Kyphosis Thorax Posture (L) Elevated (R) Elevated Shoulder Posture (L) Rounded (R) Rounded (L) Forward (R) Forward Scapula Posture (L) Protracted (R) Protracted Arm Posture (L) Internally Rotated (R) Internally Rotated PT-OP-K Range of Motion Start: 03/13/19 09:21 Freq: Status: Active Protocol: Document 03/13/19 13:11 [facility] (Rec: 03/13/19 13:41 [facility] [id number]) Cervical Spine Range of Motion Cervical Spine Active Flexion 48 Extension 25 Rotation Left 48 Rotation Right 45 Lateral Flexion Left 18 Lateral Flexion Right 21 ROM Limitations Pain Shoulder Goniometric Range of Motion Shoulder Right Shoulder ROM WFL No Flexion 125 Extension 15 Abduction 120 External Rotation at 45 degrees 25 Abduction Internal Rotation 55 Left Shoulder ROM WFL Yes Flexion 165 Extension 20 Abduction 150 External Rotation at 45 degrees 30 Abduction Internal Rotation 58 Shoulder ROM Limitations Shoulder ROM Limitations Soft Tissue Tightness Muscle Weakness Pain Elbow/Forearm Range of Motion Elbow/Forearm luisa Elbow/Forearm ROM WFL Yes PT-OP-L Special Tests Start: 03/13/19 09:21 Freq: Status: Active Protocol: Document 03/13/19 13:11 [facility] (Rec: 03/13/19 13:41 [facility] [id number]) Special Tests Cervical Spine Special Tests Traction Test Results decreased pain Comments gentle Foraminal Compression Test Results increased pain Comments gentle Shoulder Special Tests AC Joint Compression Test Results positive luisa Passive ER Rotator Cuff Test Results negative luisa IR/Horizontal ADD Impingement Test Results positive luisa Drop Arm Rotator Cuff Test Results negative luisa PT-OP-M Strength Start: 03/13/19 09:21 Freq: Status: Active Protocol: Document 03/13/19 13:11 [facility] (Rec: 03/13/19 13:41 [facility] [id number]) Cervical Spine Strength Cervical Spine Manual Muscle Testing Testing Position Sitting Flexion (C1-2) 3+ Fair+ Extension 3+ Fair+ Rotation Left 3+ Fair+ Rotation Right 3+ Fair+ Lateral Flexion Left (C3) 3+ Fair+ Lateral Flexion Right (C3) 3+ Fair+ Shoulder Strength Shoulder Manual Muscle Testing Right Flexion 3+ Fair+ Extension 4- Good- Abduction (C5) 3+ Fair+ External Rotation 3+ Fair+ Internal Rotation 4- Good- Left Flexion 3+ Fair+ Extension 4- Good- Abduction (C5) 3+ Fair+ External Rotation 3+ Fair+ Internal Rotation 4- Good- PT-OP-Q Treatments Start: 03/13/19 09:21 Freq: Status: Active Protocol: Document 03/13/19 13:11 [facility] (Rec: 03/13/19 13:41 [facility] [id number]) Self-Care/Home Management Treatment Education Patient Education Home Exercise Program Pain Management Posture Other Education instructed in gentle cervical isometric ex with use of ball against wall PT-OP-R Modalities Start: 03/13/19 09:21 Freq: Status: Active Protocol: Document 03/13/19 13:11 [facility] (Rec: 03/13/19 15:47 [facility] [id number]) Electric Stimulation Electric Stimulation Interferential Current (IFC) Body Location luisa mid thoracic spine Duration (Minutes) 15 Target/Sweep Sweep Patient Position Sitting Combined With Heat/Cold Hot Pack Comments MH to c/s as well PT-OP-T Assessment and Plan Start: 03/13/19 09:21 Freq: Status: Active Protocol: Document 03/13/19 13:11 [facility] (Rec: 03/13/19 15:47 [facility] [id number]) Physical Therapy Assessment Rehab Potential Rehabilitation Potential Fair Evaluation Complexity Number of Personal Factors/Comorbidities 3 or More Number of Body Systems Impaired 4 or More Clinical Presentation at Evaluation Unstable Impairments Impairments Activity Tolerance Pain Posture ROM Strength Goals Three Impairment Pain Short Term Goal (STG) Decrease pain by 50% STG Duration 04/24/19 Card Scraper Goal (LTG) Pain decreased by 75% LTG Duration 06/13/19 Two Impairment activity tolerance Short Term Goal (STG) Patient able to do 50% of her usual activities with minimal to no increase in pain STG Duration 04/24/19 Detention Goal (LTG) Patient able to resume her usual activity level with minimal to no increase in pain LTG Duration 06/13/19 One Impairment ROM and strength Short Term Goal (STG) Patient able to tolerate HEP of gentle ROM, strengthening, and postural correction ex with minimal to no increase in pain STG Duration 04/24/19 Detention Goal (LTG) Patient able to tolerate progression of ther ex and return to cardiac rehab LTG Duration 06/13/19 Assessment Summary Assessment Patient presents with function -limiting pain throughout her cervical and thoracic spines as well as luisa shoulder pain. She reports worst pain in mid thoracic spine. MRI's show facet arthrosis and stenosis throughout with some flattening of cord. Postural dysfunction and weakness is contributory to pain. Complicated by multiple medical issues. She would benefit from PT for pain management, gentle ROM and strengthening and postural correction. Physical Therapy Plan Frequency and Duration Frequency of Treatment 2x/Week Duration of Treatment 12 wks Plan of Care Start Date 03/13/19 Plan of Care End Date 06/13/19 Therapeutic Interventions Therapeutic Interventions Home Exercise Program Manual Therapy Neuromuscular Re-education Patient/Caregiver Education Self-Care/Home Management Soft Tissue Mobilization Taping Therapeutic Activities Therapeutic Exercises Modalities Cold Pack/Ice Massage Electric Stimulation Hot Packs Iontophoresis Ultrasound Next Visit Focus/Plan Next Note Type Treatment Note Next Visit Plan Review HEP, further ther ex for gentle postural correction , ROM and strengthening throughout c/s, t/s, shoulders .
--- NOTE | 2019-03-13 15:48 | PT.OPPOC ---
Current Diagnoses Pain in right shoulder (03/13/19) Cervicalgia (03/13/19) Pain in thoracic spine (03/13/19) Provider Visit Care Team Role Provider Type Soledad Vick DO Primary Care Provider Physician Specialty: Family Practice Address: [address] [place] [address], [id number] Email: [email or web address] Arjun Lay MD Attending Provider Non-Staff Specialty: Neurosurgery Address: [address] [place] [address], [phone] Email: Plan Of Care PT-OP-T Assessment and Plan Start: 03/13/19 09:21 Freq: Status: Active Protocol: Document 03/13/19 13:11 [facility] (Rec: 03/13/19 15:47 [facility] [id number]) Physical Therapy Assessment Rehab Potential Rehabilitation Potential Fair Evaluation Complexity Number of Personal Factors/Comorbidities 3 or More Number of Body Systems Impaired 4 or More Clinical Presentation at Evaluation Unstable Impairments Impairments Activity Tolerance Pain Posture ROM Strength Goals Three Impairment Pain Short Term Goal (STG) Decrease pain by 50% STG Duration 04/24/19 Senior Care Goal (LTG) Pain decreased by 75% LTG Duration 06/13/19 Two Impairment activity tolerance Short Term Goal (STG) Patient able to do 50% of her usual activities with minimal to no increase in pain STG Duration 04/24/19 Drop Wire Builder Goal (LTG) Patient able to resume her usual activity level with minimal to no increase in pain LTG Duration 06/13/19 One Impairment ROM and strength Short Term Goal (STG) Patient able to tolerate HEP of gentle ROM, strengthening, and postural correction ex with minimal to no increase in pain STG Duration 04/24/19 Senior Care Goal (LTG) Patient able to tolerate progression of ther ex and return to cardiac rehab LTG Duration 06/13/19 Assessment Summary Assessment Patient presents with function -limiting pain throughout her cervical and thoracic spines as well as luisa shoulder pain. She reports worst pain in mid thoracic spine. MRI's show facet arthrosis and stenosis throughout with some flattening of cord. Postural dysfunction and weakness is contributory to pain. Complicated by multiple medical issues. She would benefit from PT for pain management, gentle ROM and strengthening and postural correction. Physical Therapy Plan Frequency and Duration Frequency of Treatment 2x/Week Duration of Treatment 12 wks Plan of Care Start Date 03/13/19 Plan of Care End Date 06/13/19 Therapeutic Interventions Therapeutic Interventions Home Exercise Program Manual Therapy Neuromuscular Re-education Patient/Caregiver Education Self-Care/Home Management Soft Tissue Mobilization Taping Therapeutic Activities Therapeutic Exercises Modalities Cold Pack/Ice Massage Electric Stimulation Hot Packs Iontophoresis Ultrasound Next Visit Focus/Plan Next Note Type Treatment Note Next Visit Plan Review HEP, further ther ex for gentle postural correction , ROM and strengthening throughout c/s, t/s, shoulders . Plan of Care Dates Plan of Care Start Date 03/13/19 Plan of Care End Date 06/13/19 Please Sign and Return: I have reviewed this Plan of Care and certify that the skilled therapy services above are required to meet the patient?s needs. Physician Signature Date Printed Name and Credentials Clinical Instructor Signature Printed Name and Credentials
--- NOTE | 2019-04-01 09:51 | PT.OTN ---
Current Diagnoses Pain in right shoulder (04/01/19) Cervicalgia (04/01/19) Pain in thoracic spine (04/01/19) Physical Therapy Treatment Note PT-OP-A Visit Information Start: 03/13/19 09:21 Freq: Status: Active Protocol: Document 04/01/19 09:51 [facility] (Rec: 04/01/19 09:56 [facility] [id number]) Out-Patient Physical Therapy Visit Information Visit Information Visit Type Treatment Note Visit Start Time 09:45 Visit Stop Time 10:45 Total Visit Minutes 60 Visit Number [address] SUPERVISOR Visits 0 PT-OP-B Current Condition Start: 03/13/19 09:21 Freq: Status: Active Protocol: Document 03/13/19 13:11 SAK (Rec: 03/13/19 13:41 SAK [id number]) Current Condition History of Current Condition Onset Date 1+ yr Current Complaints pain c/s, thoracic spine, luisa shoulders. History of Current Condition Patient reports persistent, worsening, function-limiting pain luisa cervical, thoracic, and shoulders, most severe at bra line. Pain severely limits her activity tolerance and ability to sleep. Gradual onset, no traumatic injury. States her activity level is very limited. Prior Treatments and Tests MRI thoracic spine 11/28/18 showed marked facet arthrosis with mild neural foraminal stenosis bilateral T2-3 through T4-5 and right T10-11, otherwise mild/moderate diffuse thoracic facet joint arthrosis, paracentral protrusions causing trace spinal cord flattening T6-T7 through T8-9, moderate edematous (type I) discogenic endplate marrow degeneration T7-8 through T9-T10, partly included multilevel cervical and upper lumbar spinal stenosis MRI cervical spine 01/10/19 showed uncovertebral and facet joint arthrosis causing mod/ marked bilateral neural foraminal stenosis C3-C4, C5- C6, and C6-7. Mild/moderate central stenosis at C3-C4 through C6-C7 due to shallow central protrusion C4-C5, disc /osteophyte complexes at the other levals, and ligamenta flava hypertrophy at C3-C4. Resulting spinal cord flattening, greatest at C3-C4, mild neural foraminal stenosis at bilateral C4-C5 and left C7-T1. Future Testing and Treatments Planned Possible referral to pain management physician if PT not helpful. Treatment Goals Patient/Caregiver Goals Decrease pain and improve her activity tolerance and quality of life. Prior Functional Status Baseline Function- ADL's Independent Baseline Function- Mobility Independent Baseline Function- Gait Independent Baseline Function- Recreation/Hobbies no restrictions Current Functional Impairments (Reported) Functional Limitations- ADL's painful Functional Limitations- Mobility/Gait painful Functional Limitations- Recreation/ painful and extremely limited Hobbies Functional Limitations- Other unable to lay supine due to pain, can only tolerate laying on her right side PT-OP-C Subjective Start: 03/13/19 09:21 Freq: Status: Active Protocol: Document 04/01/19 09:51 SAK (Rec: 04/01/19 09:56 SAK [id number]) OP-PT Subjective Patient Comments Patient Comments just doing self-care, trying to do my neck exercises. Moving in slow motion. PT-OP-F Manual Assessment Start: 03/13/19 09:21 Freq: Status: Active Protocol: Document 03/13/19 13:11 SAK (Rec: 03/13/19 13:41 [facility] [id number]) Manual Assessments Soft Tissue Assessment Soft Tissue Mobility Assessment palpable tightness throughout SCM, upper traps, levator scap , rhomboids PT-OP-H Neuro Start: 03/13/19 09:21 Freq: Status: Active Protocol: Document 03/13/19 13:11 SAK (Rec: 03/13/19 13:41 [facility] [id number]) Sensation Evaluation Comments Summary Comments denies N/T at this time. PT-OP-J Posture/Palpation/Skin Start: 03/13/19 09:21 Freq: Status: Active Protocol: Document 03/13/19 13:11 SAK (Rec: 03/13/19 13:41 [facility] [id number]) Posture Evaluation Position Sitting Head/C-Spine Posture C-Spine Flattened T-Spine Posture Increased Kyphosis Thorax Posture (L) Elevated (R) Elevated Shoulder Posture (L) Rounded (R) Rounded (L) Forward (R) Forward Scapula Posture (L) Protracted (R) Protracted Arm Posture (L) Internally Rotated (R) Internally Rotated PT-OP-K Range of Motion Start: 03/13/19 09:21 Freq: Status: Active Protocol: Document 03/13/19 13:11 SAK (Rec: 03/13/19 13:41 [facility] [id number]) Cervical Spine Range of Motion Cervical Spine Active Flexion 48 Extension 25 Rotation Left 48 Rotation Right 45 Lateral Flexion Left 18 Lateral Flexion Right 21 ROM Limitations Pain Shoulder Goniometric Range of Motion Shoulder Right Shoulder ROM WFL No Flexion 125 Extension 15 Abduction 120 External Rotation at 45 degrees 25 Abduction Internal Rotation 55 Left Shoulder ROM WFL Yes Flexion 165 Extension 20 Abduction 150 External Rotation at 45 degrees 30 Abduction Internal Rotation 58 Shoulder ROM Limitations Shoulder ROM Limitations Soft Tissue Tightness Muscle Weakness Pain Elbow/Forearm Range of Motion Elbow/Forearm luisa Elbow/Forearm ROM WFL Yes PT-OP-L Special Tests Start: 03/13/19 09:21 Freq: Status: Active Protocol: Document 03/13/19 13:11 [facility] (Rec: 03/13/19 13:41 [facility] [id number]) Special Tests Cervical Spine Special Tests Traction Test Results decreased pain Comments gentle Foraminal Compression Test Results increased pain Comments gentle Shoulder Special Tests AC Joint Compression Test Results positive luisa Passive ER Rotator Cuff Test Results negative luisa IR/Horizontal ADD Impingement Test Results positive luisa Drop Arm Rotator Cuff Test Results negative luisa PT-OP-M Strength Start: 03/13/19 09:21 Freq: Status: Active Protocol: Document 03/13/19 13:11 [facility] (Rec: 03/13/19 13:41 [facility] [id number]) Cervical Spine Strength Cervical Spine Manual Muscle Testing Testing Position Sitting Flexion (C1-2) 3+ Fair+ Extension 3+ Fair+ Rotation Left 3+ Fair+ Rotation Right 3+ Fair+ Lateral Flexion Left (C3) 3+ Fair+ Lateral Flexion Right (C3) 3+ Fair+ Shoulder Strength Shoulder Manual Muscle Testing Right Flexion 3+ Fair+ Extension 4- Good- Abduction (C5) 3+ Fair+ External Rotation 3+ Fair+ Internal Rotation 4- Good- Left Flexion 3+ Fair+ Extension 4- Good- Abduction (C5) 3+ Fair+ External Rotation 3+ Fair+ Internal Rotation 4- Good- PT-OP-Q Treatments Start: 03/13/19 09:21 Freq: Status: Active Protocol: Document 04/01/19 09:51 [facility] (Rec: 04/02/19 16:59 [facility] [id number]) Therapeutic Exercises Supine Exercises 5 Supine Exercise Name manual pec stretch 3 Supine Exercise Name c/s rotation 2 Supine Exercise Name shoulder IR/ER AAROM Standing Exercises cervical isometrics Equipment Used ball, folded towel Reps/Minutes 3x5 each direction Comments cues for alignment and form postural isometric at wall Reps/Minutes 5x PT-OP-R Modalities Start: 03/13/19 09:21 Freq: Status: Active Protocol: Document 04/01/19 09:51 BEN (Rec: 04/02/19 16:59 SAK [id number]) Electric Stimulation Electric Stimulation Interferential Current (IFC) Body Location luisa mid thoracic spine Duration (Minutes) 15 Target/Sweep Sweep Patient Position Sitting Combined With Heat/Cold Hot Pack Comments MH to c/s as well Ultrasound Therapy Treatment mid thoracic paraspinals Treatment Duration (minutes) 10 Patient Position Sitting Duty Cycle 100% Intensity Setting (w/cm2) 1.5 PT-OP-T Assessment and Plan Start: 03/13/19 09:21 Freq: Status: Active Protocol: Document 04/01/19 09:51 [facility] (Rec: 04/01/19 09:56 [facility] [id number]) Physical Therapy Assessment Goals Three Impairment Pain Short Term Goal (STG) Decrease pain by 50% STG Duration 04/24/19 Intermediate Goal (LTG) Pain decreased by 75% LTG Duration 06/13/19 Two Impairment activity tolerance Short Term Goal (STG) Patient able to do 50% of her usual activities with minimal to no increase in pain STG Duration 04/24/19 Intermediate Goal (LTG) Patient able to resume her usual activity level with minimal to no increase in pain LTG Duration 06/13/19 One Impairment ROM and strength Short Term Goal (STG) Patient able to tolerate HEP of gentle ROM, strengthening, and postural correction ex with minimal to no increase in pain STG Duration 04/24/19 Factory Maintenance Manager Goal (LTG) Patient able to tolerate progression of ther ex and return to cardiac rehab LTG Duration 06/13/19 Assessment Summary Assessment Fair tolerance for ther ex, decreased pain with modalities and manual treatment. Moderate postural cues. Physical Therapy Plan Frequency and Duration Frequency of Treatment 2x/Week Duration of Treatment 12 wks Plan of Care Start Date 03/13/19 Plan of Care End Date 06/13/19 Therapeutic Interventions Therapeutic Interventions Home Exercise Program Manual Therapy Neuromuscular Re-education Patient/Caregiver Education Self-Care/Home Management Soft Tissue Mobilization Taping Therapeutic Activities Therapeutic Exercises Modalities Cold Pack/Ice Massage Electric Stimulation Hot Packs Iontophoresis Ultrasound Next Visit Focus/Plan Next Note Type Treatment Note Next Visit Plan Continue PT per POC. Try starting with Sci-Fit next session.
--- NOTE | 2019-04-04 08:01 | PT.OTN ---
Current Diagnoses Pain in right shoulder (04/04/19) Cervicalgia (04/04/19) Pain in thoracic spine (04/04/19) Physical Therapy Treatment Note PT-OP-A Visit Information Start: 03/13/19 09:21 Freq: Status: Active Protocol: Document 04/04/19 08:01 [facility] (Rec: 04/04/19 08:59 [facility] [id number]) Out-Patient Physical Therapy Visit Information Visit Information Visit Type Treatment Note Visit Start Time 08:00 Visit Stop Time 09:00 Total Visit Minutes 60 Visit Number 2 Number of OPERATIONAL ASSISTANT Visits 0 PT-OP-B Current Condition Start: 03/13/19 09:21 Freq: Status: Active Protocol: Document 03/13/19 13:11 SAK (Rec: 03/13/19 13:41 [facility] [id number]) Current Condition History of Current Condition Onset Date 1+ yr Current Complaints pain c/s, thoracic spine, luisa shoulders. History of Current Condition Patient reports persistent, worsening, function-limiting pain luisa cervical, thoracic, and shoulders, most severe at bra line. Pain severely limits her activity tolerance and ability to sleep. Gradual onset, no traumatic injury. States her activity level is very limited. Prior Treatments and Tests MRI thoracic spine 11/28/18 showed marked facet arthrosis with mild neural foraminal stenosis bilateral T2-3 through T4-5 and right T10-11, otherwise mild/moderate diffuse thoracic facet joint arthrosis, paracentral protrusions causing trace spinal cord flattening T6-T7 through T8-9, moderate edematous (type I) discogenic endplate marrow degeneration T7-8 through T9-T10, partly included multilevel cervical and upper lumbar spinal stenosis MRI cervical spine 01/10/19 showed uncovertebral and facet joint arthrosis causing mod/ marked bilateral neural foraminal stenosis C3-C4, C5- C6, and C6-7. Mild/moderate central stenosis at C3-C4 through C6-C7 due to shallow central protrusion C4-C5, disc /osteophyte complexes at the other levals, and ligamenta flava hypertrophy at C3-C4. Resulting spinal cord flattening, greatest at C3-C4, mild neural foraminal stenosis at bilateral C4-C5 and left C7-T1. Future Testing and Treatments Planned Possible referral to pain management physician if PT not helpful. Treatment Goals Patient/Caregiver Goals Decrease pain and improve her activity tolerance and quality of life. Prior Functional Status Baseline Function- ADL's Independent Baseline Function- Mobility Independent Baseline Function- Gait Independent Baseline Function- Recreation/Hobbies no restrictions Current Functional Impairments (Reported) Functional Limitations- ADL's painful Functional Limitations- Mobility/Gait painful Functional Limitations- Recreation/ painful and extremely limited Hobbies Functional Limitations- Other unable to lay supine due to pain, can only tolerate laying on her right side PT-OP-C Subjective Start: 03/13/19 09:21 Freq: Status: Active Protocol: Document 04/04/19 08:01 SAK (Rec: 04/04/19 08:59 SAK [id number]) OP-PT Subjective Patient Comments Patient Comments Increase in neck tenderness after last session. PT-OP-F Manual Assessment Start: 03/13/19 09:21 Freq: Status: Active Protocol: Document 03/13/19 13:11 SAK (Rec: 03/13/19 13:41 [facility] [id number]) Manual Assessments Soft Tissue Assessment Soft Tissue Mobility Assessment palpable tightness throughout SCM, upper traps, levator scap , rhomboids PT-OP-H Neuro Start: 03/13/19 09:21 Freq: Status: Active Protocol: Document 03/13/19 13:11 SAK (Rec: 03/13/19 13:41 [facility] [id number]) Sensation Evaluation Comments Summary Comments denies N/T at this time. PT-OP-J Posture/Palpation/Skin Start: 03/13/19 09:21 Freq: Status: Active Protocol: Document 03/13/19 13:11 SAK (Rec: 03/13/19 13:41 [facility] [id number]) Posture Evaluation Position Sitting Head/C-Spine Posture C-Spine Flattened T-Spine Posture Increased Kyphosis Thorax Posture (L) Elevated (R) Elevated Shoulder Posture (L) Rounded (R) Rounded (L) Forward (R) Forward Scapula Posture (L) Protracted (R) Protracted Arm Posture (L) Internally Rotated (R) Internally Rotated PT-OP-K Range of Motion Start: 03/13/19 09:21 Freq: Status: Active Protocol: Document 03/13/19 13:11 SAK (Rec: 03/13/19 13:41 [facility] [id number]) Cervical Spine Range of Motion Cervical Spine Active Flexion 48 Extension 25 Rotation Left 48 Rotation Right 45 Lateral Flexion Left 18 Lateral Flexion Right 21 ROM Limitations Pain Shoulder Goniometric Range of Motion Shoulder Right Shoulder ROM WFL No Flexion 125 Extension 15 Abduction 120 External Rotation at 45 degrees 25 Abduction Internal Rotation 55 Left Shoulder ROM WFL Yes Flexion 165 Extension 20 Abduction 150 External Rotation at 45 degrees 30 Abduction Internal Rotation 58 Shoulder ROM Limitations Shoulder ROM Limitations Soft Tissue Tightness Muscle Weakness Pain Elbow/Forearm Range of Motion Elbow/Forearm luisa Elbow/Forearm ROM WFL Yes PT-OP-L Special Tests Start: 03/13/19 09:21 Freq: Status: Active Protocol: Document 03/13/19 13:11 [facility] (Rec: 03/13/19 13:41 [facility] [id number]) Special Tests Cervical Spine Special Tests Traction Test Results decreased pain Comments gentle Foraminal Compression Test Results increased pain Comments gentle Shoulder Special Tests AC Joint Compression Test Results positive luisa Passive ER Rotator Cuff Test Results negative luisa IR/Horizontal ADD Impingement Test Results positive luisa Drop Arm Rotator Cuff Test Results negative luisa PT-OP-M Strength Start: 03/13/19 09:21 Freq: Status: Active Protocol: Document 03/13/19 13:11 [facility] (Rec: 03/13/19 13:41 [facility] [id number]) Cervical Spine Strength Cervical Spine Manual Muscle Testing Testing Position Sitting Flexion (C1-2) 3+ Fair+ Extension 3+ Fair+ Rotation Left 3+ Fair+ Rotation Right 3+ Fair+ Lateral Flexion Left (C3) 3+ Fair+ Lateral Flexion Right (C3) 3+ Fair+ Shoulder Strength Shoulder Manual Muscle Testing Right Flexion 3+ Fair+ Extension 4- Good- Abduction (C5) 3+ Fair+ External Rotation 3+ Fair+ Internal Rotation 4- Good- Left Flexion 3+ Fair+ Extension 4- Good- Abduction (C5) 3+ Fair+ External Rotation 3+ Fair+ Internal Rotation 4- Good- PT-OP-Q Treatments Start: 03/13/19 09:21 Freq: Status: Active Protocol: Document 04/04/19 08:01 [facility] (Rec: 04/04/19 08:59 [facility] [id number]) Cardio Equipment Recumbent Stepper (Sci-Fit) Duration (Minutes) 5 Resistance 2.0 Therapeutic Exercises Supine Exercises 5 Supine Exercise Name manual pec stretch 3 Supine Exercise Name c/s rotation 2 Supine Exercise Name shoulder IR/ER AAROM Manual Therapy Treatment Soft Tissue Mobilization 1 Body Location luisa mid thoracic paraspinals, luisa [place] Body Position Sitting PT-OP-R Modalities Start: 06/20/19 09:21 Freq: Status: Active Protocol: Document 04/04/19 08:01 BEN (Rec: 04/07/19 08:43 [facility] [id number]) Electric Stimulation Electric Stimulation Interferential Current (IFC) Body Location luisa mid thoracic spine, luisa [place] Duration (Minutes) 15 Target/Sweep Sweep Patient Position Sitting Combined With Heat/Cold Hot Pack Comments MH to c/s as well Ultrasound Therapy Treatment mid thoracic paraspinals Treatment Duration (minutes) 10 Patient Position Sitting Duty Cycle 100% Intensity Setting (w/cm2) 1.5 PT-OP-T Assessment and Plan Start: 03/13/19 09:21 Freq: Status: Active Protocol: Document 04/04/19 08:01 BEN (Rec: 04/07/19 08:46 [facility] [id number]) Physical Therapy Assessment Goals Three Impairment Pain Short Term Goal (STG) Decrease pain by 50% STG Duration 04/24/19 [facility] Goal (LTG) Pain decreased by 75% LTG Duration 06/13/19 Two Impairment activity tolerance Short Term Goal (STG) Patient able to do 50% of her usual activities with minimal to no increase in pain STG Duration 04/24/19 [facility] Goal (LTG) Patient able to resume her usual activity level with minimal to no increase in pain LTG Duration 06/13/19 One Impairment ROM and strength Short Term Goal (STG) Patient able to tolerate HEP of gentle ROM, strengthening, and postural correction ex with minimal to no increase in pain STG Duration 04/24/19 Antenna Engineer Goal (LTG) Patient able to tolerate progression of ther ex and return to cardiac rehab LTG Duration 06/13/19 Physical Therapy Plan Frequency and Duration Frequency of Treatment 2x/Week Duration of Treatment 12 wks Plan of Care Start Date 03/13/19 Plan of Care End Date 06/13/19 Therapeutic Interventions Therapeutic Interventions Home Exercise Program Manual Therapy Neuromuscular Re-education Patient/Caregiver Education Self-Care/Home Management Soft Tissue Mobilization Taping Therapeutic Activities Therapeutic Exercises Modalities Cold Pack/Ice Massage Electric Stimulation Hot Packs Iontophoresis Ultrasound Next Visit Focus/Plan Next Note Type Treatment Note Next Visit Plan Assess response to today's treatment, progress ther ex, postural correction and strengthening ex
--- NOTE | 2019-04-08 09:45 | PT.OTN ---
Current Diagnoses Pain in right shoulder (04/08/19) Cervicalgia (04/08/19) Pain in thoracic spine (04/08/19) Physical Therapy Treatment Note PT-OP-A Visit Information Start: 03/13/19 09:21 Freq: Status: Active Protocol: Document 04/08/19 09:44 [facility] (Rec: 04/08/19 10:00 [facility] [id number]) Out-Patient Physical Therapy Visit Information Visit Information Visit Type Treatment Note Visit Start Time 09:45 Visit Stop Time 10:45 Total Visit Minutes 60 Visit Number 4 Number of ORDER PULLER Visits 0 Evaluation Information Evaluation Date 03/13/19 Precautions Precautions Her past medical history is notable for atrial fibrillation and coronary disease. She has had prior stents placed. She has had a prior CVA. She has had a history of thyroid nodule. She had a biopsy done that was nondiagnostic. She also has a history of a prior melanoma and diagnosis of monoclonal gammopathy. Patient reports since last seen in PT had a tooth abscess with bone infection necessitating 3 months of PT, and was diagnosed with anemia recently for which she will soon received iron infusions. PT-OP-B Current Condition Start: 03/13/19 09:21 Freq: Status: Active Protocol: Document 03/13/19 13:11 [facility] (Rec: 03/13/19 13:41 [facility] [id number]) Current Condition History of Current Condition Onset Date 1+ yr Current Complaints pain c/s, thoracic spine, luisa shoulders. History of Current Condition Patient reports persistent, worsening, function-limiting pain luisa cervical, thoracic, and shoulders, most severe at bra line. Pain severely limits her activity tolerance and ability to sleep. Gradual onset, no traumatic injury. States her activity level is very limited. Prior Treatments and Tests MRI thoracic spine 11/28/18 showed marked facet arthrosis with mild neural foraminal stenosis bilateral T2-3 through T4-5 and right T10-11, otherwise mild/moderate diffuse thoracic facet joint arthrosis, paracentral protrusions causing trace spinal cord flattening T6-T7 through T8-9, moderate edematous (type I) discogenic endplate marrow degeneration T7-8 through T9-T10, partly included multilevel cervical and upper lumbar spinal stenosis MRI cervical spine 01/10/19 showed uncovertebral and facet joint arthrosis causing mod/ marked bilateral neural foraminal stenosis C3-C4, C5- C6, and C6-7. Mild/moderate central stenosis at C3-C4 through C6-C7 due to shallow central protrusion C4-C5, disc /osteophyte complexes at the other levals, and ligamenta flava hypertrophy at C3-C4. Resulting spinal cord flattening, greatest at C3-C4, mild neural foraminal stenosis at bilateral C4-C5 and left C7-T1. Future Testing and Treatments Planned Possible referral to pain management physician if PT not helpful. Treatment Goals Patient/Caregiver Goals Decrease pain and improve her activity tolerance and quality of life. Prior Functional Status Baseline Function- ADL's Independent Baseline Function- Mobility Independent Baseline Function- Gait Independent Baseline Function- Recreation/Hobbies no restrictions Current Functional Impairments (Reported) Functional Limitations- ADL's painful Functional Limitations- Mobility/Gait painful Functional Limitations- Recreation/ painful and extremely limited Hobbies Functional Limitations- Other unable to lay supine due to pain, can only tolerate laying on her right side PT-OP-C Subjective Start: 03/13/19 09:21 Freq: Status: Active Protocol: Document 04/08/19 09:44 [facility] (Rec: 04/08/19 10:00 [facility] [id number]) OP-PT Subjective Patient Comments Patient Comments Saw Dr. Vick yesterday, PT-OP-F Manual Assessment Start: 03/13/19 09:21 Freq: Status: Active Protocol: Document 03/13/19 13:11 [facility] (Rec: 03/13/19 13:41 [facility] [id number]) Manual Assessments Soft Tissue Assessment Soft Tissue Mobility Assessment palpable tightness throughout SCM, upper traps, levator scap , rhomboids PT-OP-H Neuro Start: 03/13/19 09:21 Freq: Status: Active Protocol: Document 03/13/19 13:11 [facility] (Rec: 03/13/19 13:41 [facility] [id number]) Sensation Evaluation Comments Summary Comments denies N/T at this time. PT-OP-J Posture/Palpation/Skin Start: 03/13/19 09:21 Freq: Status: Active Protocol: Document 03/13/19 13:11 [facility] (Rec: 03/13/19 13:41 [facility] [id number]) Posture Evaluation Position Sitting Head/C-Spine Posture C-Spine Flattened T-Spine Posture Increased Kyphosis Thorax Posture (L) Elevated (R) Elevated Shoulder Posture (L) Rounded (R) Rounded (L) Forward (R) Forward Scapula Posture (L) Protracted (R) Protracted Arm Posture (L) Internally Rotated (R) Internally Rotated PT-OP-K Range of Motion Start: 03/13/19 09:21 Freq: Status: Active Protocol: Document 03/13/19 13:11 [facility] (Rec: 03/13/19 13:41 [facility] [id number]) Cervical Spine Range of Motion Cervical Spine Active Flexion 48 Extension 25 Rotation Left 48 Rotation Right 45 Lateral Flexion Left 18 Lateral Flexion Right 21 ROM Limitations Pain Shoulder Goniometric Range of Motion Shoulder Right Shoulder ROM WFL No Flexion 125 Extension 15 Abduction 120 External Rotation at 45 degrees 25 Abduction Internal Rotation 55 Left Shoulder ROM WFL Yes Flexion 165 Extension 20 Abduction 150 External Rotation at 45 degrees 30 Abduction Internal Rotation 58 Shoulder ROM Limitations Shoulder ROM Limitations Soft Tissue Tightness Muscle Weakness Pain Elbow/Forearm Range of Motion Elbow/Forearm luisa Elbow/Forearm ROM WFL Yes PT-OP-L Special Tests Start: 03/13/19 09:21 Freq: Status: Active Protocol: Document 03/13/19 13:11 [facility] (Rec: 03/13/19 13:41 [facility] [id number]) Special Tests Cervical Spine Special Tests Traction Test Results decreased pain Comments gentle Foraminal Compression Test Results increased pain Comments gentle Shoulder Special Tests AC Joint Compression Test Results positive luisa Passive ER Rotator Cuff Test Results negative luisa IR/Horizontal ADD Impingement Test Results positive luisa Drop Arm Rotator Cuff Test Results negative luisa PT-OP-M Strength Start: 03/13/19 09:21 Freq: Status: Active Protocol: Document 03/13/19 13:11 [facility] (Rec: 03/13/19 13:41 [facility] [id number]) Cervical Spine Strength Cervical Spine Manual Muscle Testing Testing Position Sitting Flexion (C1-2) 3+ Fair+ Extension 3+ Fair+ Rotation Left 3+ Fair+ Rotation Right 3+ Fair+ Lateral Flexion Left (C3) 3+ Fair+ Lateral Flexion Right (C3) 3+ Fair+ Shoulder Strength Shoulder Manual Muscle Testing Right Flexion 3+ Fair+ Extension 4- Good- Abduction (C5) 3+ Fair+ External Rotation 3+ Fair+ Internal Rotation 4- Good- Left Flexion 3+ Fair+ Extension 4- Good- Abduction (C5) 3+ Fair+ External Rotation 3+ Fair+ Internal Rotation 4- Good- PT-OP-Q Treatments Start: 03/13/19 09:21 Freq: Status: Active Protocol: Document 04/08/19 09:44 [facility] (Rec: 04/08/19 10:00 [facility] [id number]) Cardio Equipment Recumbent Stepper (Sci-Fit) Duration (Minutes) 7 Resistance 2.0 Therapeutic Exercises Sitting Exercises shoulder rolls Reps/Minutes 10x manual pec stretch Reps/Minutes 2x 30 4 Sitting Exercise Name cervical retraction Reps/Minutes 3x Standing Exercises cervical isometrics Equipment Used ball, folded towel Reps/Minutes 3x5 each direction Comments cues for alignment and form 2 Standing Exercise Name row, shoulder ext, ER Resistance L1 TB Manual Therapy Treatment Soft Tissue Mobilization 1 Body Location luisa mid thoracic paraspinals, luisa UT Body Position Sitting Self-Care/Home Management Treatment Education Patient Education Home Exercise Program Pain Management Posture Other Education instructed in gentle cervical isometric ex with use of ball against wall PT-OP-R Modalities Start: 03/13/19 09:21 Freq: Status: Active Protocol: Document 04/08/19 09:44 [facility] (Rec: 04/08/19 10:00 [facility] [id number]) Electric Stimulation Electric Stimulation Interferential Current (IFC) Body Location luisa mid thoracic spine, luisa [place] Duration (Minutes) 15 Target/Sweep Sweep Patient Position Sitting Combined With Heat/Cold Hot Pack Comments MH to c/s as well Ultrasound Therapy Treatment mid thoracic paraspinals Treatment Duration (minutes) 10 Patient Position Sitting Duty Cycle 100% Intensity Setting (w/cm2) 1.5 PT-OP-T Assessment and Plan Start: 03/13/19 09:21 Freq: Status: Active Protocol: Document 04/08/19 09:44 [facility] (Rec: 04/08/19 10:00 [facility] [id number]) Physical Therapy Assessment Goals Three Impairment Pain Short Term Goal (STG) Decrease pain by 50% STG Duration 04/24/19 Custodial Goal (LTG) Pain decreased by 75% LTG Duration 06/13/19 Two Impairment activity tolerance Short Term Goal (STG) Patient able to do 50% of her usual activities with minimal to no increase in pain STG Duration 04/24/19 Bulk Plant Supervisor Goal (LTG) Patient able to resume her usual activity level with minimal to no increase in pain LTG Duration 06/13/19 One Impairment ROM and strength Short Term Goal (STG) Patient able to tolerate HEP of gentle ROM, strengthening, and postural correction ex with minimal to no increase in pain STG Duration 04/24/19 Bulk Plant Supervisor Goal (LTG) Patient able to tolerate progression of ther ex and return to cardiac rehab LTG Duration 06/13/19 Physical Therapy Plan Frequency and Duration Frequency of Treatment 2x/Week Duration of Treatment 12 wks Plan of Care Start Date 03/13/19 Plan of Care End Date 06/13/19 Therapeutic Interventions Therapeutic Interventions Home Exercise Program Manual Therapy Neuromuscular Re-education Patient/Caregiver Education Self-Care/Home Management Soft Tissue Mobilization Taping Therapeutic Activities Therapeutic Exercises Modalities Cold Pack/Ice Massage Electric Stimulation Hot Packs Iontophoresis Ultrasound Next Visit Focus/Plan Next Note Type Treatment Note Next Visit Plan Seated cat/cow ex with coordinated breathing for thoracic mobilization.
--- NOTE | 2019-04-11 15:24 | PT.OTN ---
Current Diagnoses Pain in right shoulder (04/11/19) Cervicalgia (04/11/19) Pain in thoracic spine (04/11/19) Physical Therapy Treatment Note PT-OP-A Visit Information Start: 03/13/19 09:21 Freq: Status: Active Protocol: Document 04/11/19 08:08 [facility] (Rec: 04/11/19 08:42 [facility] [id number]) Out-Patient Physical Therapy Visit Information Visit Information Visit Type Treatment Note Visit Start Time 08:00 Visit Stop Time 09:00 Total Visit Minutes 60 Visit Number 5 Number of RUBBER GOODS REPAIRER Visits 0 Evaluation Information Evaluation Date 03/13/19 Precautions Precautions Her past medical history is notable for atrial fibrillation and coronary disease. She has had prior stents placed. She has had a prior CVA. She has had a history of thyroid nodule. She had a biopsy done that was nondiagnostic. She also has a history of a prior melanoma and diagnosis of monoclonal gammopathy. Patient reports since last seen in PT had a tooth abscess with bone infection necessitating 3 months of PT, and was diagnosed with anemia recently for which she will soon received iron infusions. PT-OP-B Current Condition Start: 03/13/19 09:21 Freq: Status: Active Protocol: Document 03/13/19 13:11 [facility] (Rec: 03/13/19 13:41 [facility] [id number]) Current Condition History of Current Condition Onset Date 1+ yr Current Complaints pain c/s, thoracic spine, luisa shoulders. History of Current Condition Patient reports persistent, worsening, function-limiting pain luisa cervical, thoracic, and shoulders, most severe at bra line. Pain severely limits her activity tolerance and ability to sleep. Gradual onset, no traumatic injury. States her activity level is very limited. Prior Treatments and Tests MRI thoracic spine 11/28/18 showed marked facet arthrosis with mild neural foraminal stenosis bilateral T2-3 through T4-5 and right T10-11, otherwise mild/moderate diffuse thoracic facet joint arthrosis, paracentral protrusions causing trace spinal cord flattening T6-T7 through T8-9, moderate edematous (type I) discogenic endplate marrow degeneration T7-8 through T9-T10, partly included multilevel cervical and upper lumbar spinal stenosis MRI cervical spine 01/10/19 showed uncovertebral and facet joint arthrosis causing mod/ marked bilateral neural foraminal stenosis C3-C4, C5- C6, and C6-7. Mild/moderate central stenosis at C3-C4 through C6-C7 due to shallow central protrusion C4-C5, disc /osteophyte complexes at the other levals, and ligamenta flava hypertrophy at C3-C4. Resulting spinal cord flattening, greatest at C3-C4, mild neural foraminal stenosis at bilateral C4-C5 and left C7-T1. Future Testing and Treatments Planned Possible referral to pain management physician if PT not helpful. Treatment Goals Patient/Caregiver Goals Decrease pain and improve her activity tolerance and quality of life. Prior Functional Status Baseline Function- ADL's Independent Baseline Function- Mobility Independent Baseline Function- Gait Independent Baseline Function- Recreation/Hobbies no restrictions Current Functional Impairments (Reported) Functional Limitations- ADL's painful Functional Limitations- Mobility/Gait painful Functional Limitations- Recreation/ painful and extremely limited Hobbies Functional Limitations- Other unable to lay supine due to pain, can only tolerate laying on her right side PT-OP-C Subjective Start: 03/13/19 09:21 Freq: Status: Active Protocol: Document 04/11/19 08:08 [facility] (Rec: 04/11/19 08:42 [facility] [id number]) OP-PT Subjective Patient Comments Patient Comments Pain persists. States tests from Dr. Vick showed infection in her gut, which may be part of why she is feeling so tired and unwell and causing her anemia and other symptoms. PT-OP-F Manual Assessment Start: 03/13/19 09:21 Freq: Status: Active Protocol: Document 03/13/19 13:11 [facility] (Rec: 03/13/19 13:41 [facility] [id number]) Manual Assessments Soft Tissue Assessment Soft Tissue Mobility Assessment palpable tightness throughout SCM, upper traps, levator scap , rhomboids PT-OP-H Neuro Start: 03/13/19 09:21 Freq: Status: Active Protocol: Document 03/13/19 13:11 [facility] (Rec: 03/13/19 13:41 [facility] [id number]) Sensation Evaluation Comments Summary Comments denies N/T at this time. PT-OP-J Posture/Palpation/Skin Start: 03/13/19 09:21 Freq: Status: Active Protocol: Document 03/13/19 13:11 [facility] (Rec: 03/13/19 13:41 [facility] [id number]) Posture Evaluation Position Sitting Head/C-Spine Posture C-Spine Flattened T-Spine Posture Increased Kyphosis Thorax Posture (L) Elevated (R) Elevated Shoulder Posture (L) Rounded (R) Rounded (L) Forward (R) Forward Scapula Posture (L) Protracted (R) Protracted Arm Posture (L) Internally Rotated (R) Internally Rotated PT-OP-K Range of Motion Start: 03/13/19 09:21 Freq: Status: Active Protocol: Document 03/13/19 13:11 [facility] (Rec: 03/13/19 13:41 [facility] [id number]) Cervical Spine Range of Motion Cervical Spine Active Flexion 48 Extension 25 Rotation Left 48 Rotation Right 45 Lateral Flexion Left 18 Lateral Flexion Right 21 ROM Limitations Pain Shoulder Goniometric Range of Motion Shoulder Right Shoulder ROM WFL No Flexion 125 Extension 15 Abduction 120 External Rotation at 45 degrees 25 Abduction Internal Rotation 55 Left Shoulder ROM WFL Yes Flexion 165 Extension 20 Abduction 150 External Rotation at 45 degrees 30 Abduction Internal Rotation 58 Shoulder ROM Limitations Shoulder ROM Limitations Soft Tissue Tightness Muscle Weakness Pain Elbow/Forearm Range of Motion Elbow/Forearm luisa Elbow/Forearm ROM WFL Yes PT-OP-L Special Tests Start: 03/13/19 09:21 Freq: Status: Active Protocol: Document 03/13/19 13:11 [facility] (Rec: 03/13/19 13:41 [facility] [id number]) Special Tests Cervical Spine Special Tests Traction Test Results decreased pain Comments gentle Foraminal Compression Test Results increased pain Comments gentle Shoulder Special Tests AC Joint Compression Test Results positive luisa Passive ER Rotator Cuff Test Results negative luisa IR/Horizontal ADD Impingement Test Results positive luisa Drop Arm Rotator Cuff Test Results negative luisa PT-OP-M Strength Start: 03/13/19 09:21 Freq: Status: Active Protocol: Document 03/13/19 13:11 [facility] (Rec: 03/13/19 13:41 [facility] [id number]) Cervical Spine Strength Cervical Spine Manual Muscle Testing Testing Position Sitting Flexion (C1-2) 3+ Fair+ Extension 3+ Fair+ Rotation Left 3+ Fair+ Rotation Right 3+ Fair+ Lateral Flexion Left (C3) 3+ Fair+ Lateral Flexion Right (C3) 3+ Fair+ Shoulder Strength Shoulder Manual Muscle Testing Right Flexion 3+ Fair+ Extension 4- Good- Abduction (C5) 3+ Fair+ External Rotation 3+ Fair+ Internal Rotation 4- Good- Left Flexion 3+ Fair+ Extension 4- Good- Abduction (C5) 3+ Fair+ External Rotation 3+ Fair+ Internal Rotation 4- Good- PT-OP-Q Treatments Start: 03/13/19 09:21 Freq: Status: Active Protocol: Document 04/11/19 08:08 [facility] (Rec: 04/11/19 08:42 [facility] [id number]) Cardio Equipment Recumbent Stepper (Sci-Fit) Duration (Minutes) 7 Resistance 3.0 Therapeutic Exercises Sitting Exercises seated thoracic flex and ext Equipment Used ball at thoracic spine manual pec stretch Reps/Minutes 2x 30 4 Sitting Exercise Name cervical retraction Reps/Minutes 3x 1 Sitting Exercise Name pulleys shoulder flex, scaption Equipment Used ball at thoracic spine Standing Exercises 2 Standing Exercise Name row, shoulder ext, ER Resistance L1 TB Other Exercises quadruped cat/cow Comments mod verbal and manual cues Manual Therapy Treatment Joint Mobilizations Thoracic PA's Joint T4-T10 Grade III Body Position Sitting Reps/Duration 5 min PT-OP-R Modalities Start: 03/13/19 09:21 Freq: Status: Active Protocol: Document 04/11/19 08:08 [facility] (Rec: 04/11/19 15:24 [facility] [id number]) Electric Stimulation Electric Stimulation Interferential Current (IFC) Body Location luisa mid thoracic spine, luisa [place] Duration (Minutes) 15 Target/Sweep Sweep Patient Position Sitting Combined With Heat/Cold Hot Pack Comments MH to c/s as well Ultrasound Therapy Treatment mid thoracic paraspinals Treatment Duration (minutes) 10 Patient Position Sitting Duty Cycle 100% Intensity Setting (w/cm2) 1.5 PT-OP-T Assessment and Plan Start: 03/13/19 09:21 Freq: Status: Active Protocol: Document 04/11/19 08:08 [facility] (Rec: 04/11/19 15:24 [facility] [id number]) Physical Therapy Assessment Goals Three Impairment Pain Short Term Goal (STG) Decrease pain by 50% STG Duration 04/24/19 Penitentiary Goal (LTG) Pain decreased by 75% LTG Duration 06/13/19 Two Impairment activity tolerance Short Term Goal (STG) Patient able to do 50% of her usual activities with minimal to no increase in pain STG Duration 04/24/19 City Solicitor Goal (LTG) Patient able to resume her usual activity level with minimal to no increase in pain LTG Duration 06/13/19 One Impairment ROM and strength Short Term Goal (STG) Patient able to tolerate HEP of gentle ROM, strengthening, and postural correction ex with minimal to no increase in pain STG Duration 04/24/19 City Solicitor Goal (LTG) Patient able to tolerate progression of ther ex and return to cardiac rehab LTG Duration 06/13/19 Assessment Summary Assessment Patient has difficulty correcting posture and found in waiting room with head and thoracic spine moderately flexed looking at magazine despite ongoing postural education. Medical issues contributory to patient low activity tolerance. Physical Therapy Plan Frequency and Duration Frequency of Treatment 2x/Week Duration of Treatment 12 wks Plan of Care Start Date 03/13/19 Plan of Care End Date 06/13/19 Therapeutic Interventions Therapeutic Interventions Home Exercise Program Manual Therapy Neuromuscular Re-education Patient/Caregiver Education Self-Care/Home Management Soft Tissue Mobilization Taping Therapeutic Activities Therapeutic Exercises Modalities Cold Pack/Ice Massage Electric Stimulation Hot Packs Iontophoresis Ultrasound Next Visit Focus/Plan Next Note Type Treatment Note Next Visit Plan Emphasis on thoracic mobilization, postural correction, strengthening
--- NOTE | 2019-04-18 09:30 | PT.OTN ---
Current Diagnoses Pain in right shoulder (04/18/19) Cervicalgia (04/18/19) Pain in thoracic spine (04/18/19) Physical Therapy Treatment Note PT-OP-A Visit Information Start: 03/13/19 09:21 Freq: Status: Active Protocol: Document 04/18/19 09:29 [facility] (Rec: 04/18/19 10:16 [facility] [id number]) Out-Patient Physical Therapy Visit Information Visit Information Visit Type Treatment Note Visit Start Time 09:30 Visit Stop Time 10:30 Total Visit Minutes 60 Visit Number 6 Number of ALLIGATOR SHEAR OPERATOR Visits 0 Evaluation Information Evaluation Date 03/13/19 Precautions Precautions Her past medical history is notable for atrial fibrillation and coronary disease. She has had prior stents placed. She has had a prior CVA. She has had a history of thyroid nodule. She had a biopsy done that was nondiagnostic. She also has a history of a prior melanoma and diagnosis of monoclonal gammopathy. Patient reports since last seen in PT had a tooth abscess with bone infection necessitating 3 months of PT, and was diagnosed with anemia recently for which she will soon received iron infusions. PT-OP-B Current Condition Start: 03/13/19 09:21 Freq: Status: Active Protocol: Document 03/13/19 13:11 [facility] (Rec: 03/13/19 13:41 [facility] [id number]) Current Condition History of Current Condition Onset Date 1+ yr Current Complaints pain c/s, thoracic spine, luisa shoulders. History of Current Condition Patient reports persistent, worsening, function-limiting pain luisa cervical, thoracic, and shoulders, most severe at bra line. Pain severely limits her activity tolerance and ability to sleep. Gradual onset, no traumatic injury. States her activity level is very limited. Prior Treatments and Tests MRI thoracic spine 11/28/18 showed marked facet arthrosis with mild neural foraminal stenosis bilateral T2-3 through T4-5 and right T10-11, otherwise mild/moderate diffuse thoracic facet joint arthrosis, paracentral protrusions causing trace spinal cord flattening T6-T7 through T8-9, moderate edematous (type I) discogenic endplate marrow degeneration T7-8 through T9-T10, partly included multilevel cervical and upper lumbar spinal stenosis MRI cervical spine 01/10/19 showed uncovertebral and facet joint arthrosis causing mod/ marked bilateral neural foraminal stenosis C3-C4, C5- C6, and C6-7. Mild/moderate central stenosis at C3-C4 through C6-C7 due to shallow central protrusion C4-C5, disc /osteophyte complexes at the other levals, and ligamenta flava hypertrophy at C3-C4. Resulting spinal cord flattening, greatest at C3-C4, mild neural foraminal stenosis at bilateral C4-C5 and left C7-T1. Future Testing and Treatments Planned Possible referral to pain management physician if PT not helpful. Treatment Goals Patient/Caregiver Goals Decrease pain and improve her activity tolerance and quality of life. Prior Functional Status Baseline Function- ADL's Independent Baseline Function- Mobility Independent Baseline Function- Gait Independent Baseline Function- Recreation/Hobbies no restrictions Current Functional Impairments (Reported) Functional Limitations- ADL's painful Functional Limitations- Mobility/Gait painful Functional Limitations- Recreation/ painful and extremely limited Hobbies Functional Limitations- Other unable to lay supine due to pain, can only tolerate laying on her right side PT-OP-C Subjective Start: 03/13/19 09:21 Freq: Status: Active Protocol: Document 04/18/19 09:29 [facility] (Rec: 04/18/19 10:16 [facility] [id number]) OP-PT Subjective Patient Comments Patient Comments Is starting new medication; antibiotic for gut infection. Pain persists in midback; has been [id number] for [id number] uyighpast 3 days, was busy all day with company. - PT-OP-F Manual Assessment Start: 03/13/19 09:21 Freq: Status: Active Protocol: Document 03/13/19 13:11 [facility] (Rec: 03/13/19 13:41 [facility] [id number]) Manual Assessments Soft Tissue Assessment Soft Tissue Mobility Assessment palpable tightness throughout SCM, upper traps, levator scap , rhomboids PT-OP-H Neuro Start: 03/13/19 09:21 Freq: Status: Active Protocol: Document 03/13/19 13:11 [facility] (Rec: 03/13/19 13:41 [facility] [id number]) Sensation Evaluation Comments Summary Comments denies N/T at this time. PT-OP-J Posture/Palpation/Skin Start: 03/13/19 09:21 Freq: Status: Active Protocol: Document 03/13/19 13:11 [facility] (Rec: 03/13/19 13:41 [facility] [id number]) Posture Evaluation Position Sitting Head/C-Spine Posture C-Spine Flattened T-Spine Posture Increased Kyphosis Thorax Posture (L) Elevated (R) Elevated Shoulder Posture (L) Rounded (R) Rounded (L) Forward (R) Forward Scapula Posture (L) Protracted (R) Protracted Arm Posture (L) Internally Rotated (R) Internally Rotated PT-OP-K Range of Motion Start: 03/13/19 09:21 Freq: Status: Active Protocol: Document 03/13/19 13:11 [facility] (Rec: 03/13/19 13:41 [facility] [id number]) Cervical Spine Range of Motion Cervical Spine Active Flexion 48 Extension 25 Rotation Left 48 Rotation Right 45 Lateral Flexion Left 18 Lateral Flexion Right 21 ROM Limitations Pain Shoulder Goniometric Range of Motion Shoulder Right Shoulder ROM WFL No Flexion 125 Extension 15 Abduction 120 External Rotation at 45 degrees 25 Abduction Internal Rotation 55 Left Shoulder ROM WFL Yes Flexion 165 Extension 20 Abduction 150 External Rotation at 45 degrees 30 Abduction Internal Rotation 58 Shoulder ROM Limitations Shoulder ROM Limitations Soft Tissue Tightness Muscle Weakness Pain Elbow/Forearm Range of Motion Elbow/Forearm luisa Elbow/Forearm ROM WFL Yes PT-OP-L Special Tests Start: 03/13/19 09:21 Freq: Status: Active Protocol: Document 03/13/19 13:11 [facility] (Rec: 03/13/19 13:41 [facility] [id number]) Special Tests Cervical Spine Special Tests Traction Test Results decreased pain Comments gentle Foraminal Compression Test Results increased pain Comments gentle Shoulder Special Tests AC Joint Compression Test Results positive luisa Passive ER Rotator Cuff Test Results negative luisa IR/Horizontal ADD Impingement Test Results positive luisa Drop Arm Rotator Cuff Test Results negative luisa PT-OP-M Strength Start: 03/13/19 09:21 Freq: Status: Active Protocol: Document 03/13/19 13:11 [facility] (Rec: 03/13/19 13:41 [facility] [id number]) Cervical Spine Strength Cervical Spine Manual Muscle Testing Testing Position Sitting Flexion (C1-2) 3+ Fair+ Extension 3+ Fair+ Rotation Left 3+ Fair+ Rotation Right 3+ Fair+ Lateral Flexion Left (C3) 3+ Fair+ Lateral Flexion Right (C3) 3+ Fair+ Shoulder Strength Shoulder Manual Muscle Testing Right Flexion 3+ Fair+ Extension 4- Good- Abduction (C5) 3+ Fair+ External Rotation 3+ Fair+ Internal Rotation 4- Good- Left Flexion 3+ Fair+ Extension 4- Good- Abduction (C5) 3+ Fair+ External Rotation 3+ Fair+ Internal Rotation 4- Good- PT-OP-Q Treatments Start: 03/13/19 09:21 Freq: Status: Active Protocol: Document 04/18/19 09:29 [facility] (Rec: 04/21/19 17:05 [facility] [id number]) Cardio Equipment Recumbent Stepper (Sci-Fit) Duration (Minutes) 7 Resistance 3.0 Therapeutic Exercises Sitting Exercises 1 Sitting Exercise Name pulleys shoulder flex, scaption Equipment Used ball at thoracic spine Manual Therapy Treatment Soft Tissue Mobilization 1 Body Location luisa mid thoracic paraspinals, luisa UT Body Position Prone Joint Mobilizations Thoracic PA's Joint T4-T10 Grade III Body Position Prone Reps/Duration 5 min PT-OP-R Modalities Start: 03/13/19 09:21 Freq: Status: Active Protocol: Document 04/18/19 09:29 [facility] (Rec: 04/18/19 10:16 [facility] [id number]) Electric Stimulation Electric Stimulation Interferential Current (IFC) Body Location luisa mid thoracic spine, luisa UT Duration (Minutes) 15 Target/Sweep Sweep Patient Position Prone Combined With Heat/Cold Hot Pack Comments MH to c/s as well Ultrasound Therapy Treatment mid thoracic paraspinals Treatment Duration (minutes) 10 Patient Position Prone Duty Cycle 100% Intensity Setting (w/cm2) 1.5 PT-OP-T Assessment and Plan Start: 03/13/19 09:21 Freq: Status: Active Protocol: Document 04/18/19 09:29 [facility] (Rec: 04/18/19 10:16 [facility] [id number]) Physical Therapy Assessment Goals Three Impairment Pain Short Term Goal (STG) Decrease pain by 50% STG Duration 04/24/19 Prefabricated Houses Trimmer Goal (LTG) Pain decreased by 75% LTG Duration 06/13/19 Two Impairment activity tolerance Short Term Goal (STG) Patient able to do 50% of her usual activities with minimal to no increase in pain STG Duration 04/24/19 Prefabricated Houses Trimmer Goal (LTG) Patient able to resume her usual activity level with minimal to no increase in pain LTG Duration 06/13/19 One Impairment ROM and strength Short Term Goal (STG) Patient able to tolerate HEP of gentle ROM, strengthening, and postural correction ex with minimal to no increase in pain STG Duration 04/24/19 Prison Goal (LTG) Patient able to tolerate progression of ther ex and return to cardiac rehab LTG Duration 06/13/19 Assessment Summary Assessment Good tolerance for treatment primarily in prone position today to allow for increased muscle relaxation as well as joint mobilization Physical Therapy Plan Frequency and Duration Frequency of Treatment 2x/Week Duration of Treatment 12 wks Plan of Care Start Date 03/13/19 Plan of Care End Date 06/13/19 Therapeutic Interventions Therapeutic Interventions Home Exercise Program Manual Therapy Neuromuscular Re-education Patient/Caregiver Education Self-Care/Home Management Soft Tissue Mobilization Taping Therapeutic Activities Therapeutic Exercises Modalities Cold Pack/Ice Massage Electric Stimulation Hot Packs Iontophoresis Ultrasound Next Visit Focus/Plan Next Note Type Treatment Note Next Visit Plan Evaluate response to today's session with emphasis on prone gentle joint mobilization of thoracic spine and soft tissue mobilization with ultrasound and IFES Add prone shoulder horizontal abd with scapular squeeze
--- NOTE | 2019-04-22 09:30 | PT.OTN ---
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 She has had prior stents placed. She has had a prior CVA. She has had a history of thyroid nodule. She had a biopsy done that was nondiagnostic. She also has a history of a prior melanoma and diagnosis of monoclonal gammopathy. Patient reports since last seen in PT had a tooth abscess with bone infection necessitating 3 months of PT, and was diagnosed with anemia recently for which she will soon received iron infusions. PT-OP-B Current Condition Start: 03/13/19 09:21 Freq: Status: Active Protocol: Document 03/13/19 13:11 [facility] (Rec: 03/13/19 13:41 [facility] [id number]) Current Condition History of Current Condition Onset Date 1+ yr Current Complaints pain c/s, thoracic spine, luisa shoulders. History of Current Condition Patient reports persistent, worsening, function-limiting pain luisa cervical, thoracic, and shoulders, most severe at bra line. Pain severely limits her activity tolerance and ability to sleep. Gradual onset, no traumatic injury. States her activity level is very limited. Prior Treatments and Tests MRI thoracic spine 11/28/18 showed marked facet arthrosis with mild neural foraminal stenosis bilateral T2-3 through T4-5 and right T10-11, otherwise mild/moderate diffuse thoracic facet joint arthrosis, paracentral protrusions causing trace spinal cord flattening T6-T7 through T8-9, moderate edematous (type I) discogenic endplate marrow degeneration T7-8 through T9-T10, partly included multilevel cervical and upper lumbar spinal stenosis MRI cervical spine 01/10/19 showed uncovertebral and facet joint arthrosis causing mod/ marked bilateral neural foraminal stenosis C3-C4, C5- C6, and C6-7. Mild/moderate central stenosis at C3-C4 through C6-C7 due to shallow central protrusion C4-C5, disc /osteophyte complexes at the other levals, and ligamenta flava hypertrophy at C3-C4. Resulting spinal cord flattening, greatest at C3-C4, mild neural foraminal stenosis at bilateral C4-C5 and left C7-T1. Future Testing and Treatments Planned Possible referral to pain management physician if PT not helpful. Treatment Goals Patient/Caregiver Goals Decrease pain and improve her activity tolerance and quality of life. Prior Functional Status Baseline Function- ADL's Independent Baseline Function- Mobility Independent Baseline Function- Gait Independent Baseline Function- Recreation/Hobbies no restrictions Current Functional Impairments (Reported) Functional Limitations- ADL's painful Functional Limitations- Mobility/Gait painful Functional Limitations- Recreation/ painful and extremely limited Hobbies Functional Limitations- Other unable to lay supine due to pain, can only tolerate laying on her right side PT-OP-C Subjective Start: 03/13/19 09:21 Freq: Status: Active Protocol: Document 04/22/19 09:30 [facility] (Rec: 04/27/19 08:46 [facility] [id number]) OP-PT Subjective Patient Comments Patient Comments Patient reports continues to feel exhausted, no change in pain. Agreeable to consider placing PT on hold until can recover from gut infection. PT-OP-F Manual Assessment Start: 03/13/19 09:21 Freq: Status: Active Protocol: Document 03/13/19 13:11 [facility] (Rec: 03/13/19 13:41 [facility] [id number]) Manual Assessments Soft Tissue Assessment Soft Tissue Mobility Assessment palpable tightness throughout SCM, upper traps, levator scap , rhomboids PT-OP-H Neuro Start: 03/13/19 09:21 Freq: Status: Active Protocol: Document 03/13/19 13:11 [facility] (Rec: 03/13/19 13:41 [facility] [id number]) Sensation Evaluation Comments Summary Comments denies N/T at this time. PT-OP-J Posture/Palpation/Skin Start: 03/13/19 09:21 Freq: Status: Active Protocol: Document 03/13/19 13:11 [facility] (Rec: 03/13/19 13:41 [facility] [id number]) Posture Evaluation Position Sitting Head/C-Spine Posture C-Spine Flattened T-Spine Posture Increased Kyphosis Thorax Posture (L) Elevated (R) Elevated Shoulder Posture (L) Rounded (R) Rounded (L) Forward (R) Forward Scapula Posture (L) Protracted (R) Protracted Arm Posture (L) Internally Rotated (R) Internally Rotated PT-OP-K Range of Motion Start: 03/13/19 09:21 Freq: Status: Active Protocol: Document 03/13/19 13:11 [facility] (Rec: 03/13/19 13:41 [facility] [id number]) Cervical Spine Range of Motion Cervical Spine Active Flexion 48 Extension 25 Rotation Left 48 Rotation Right 45 Lateral Flexion Left 18 Lateral Flexion Right 21 ROM Limitations Pain Shoulder Goniometric Range of Motion Shoulder Right Shoulder ROM WFL No Flexion 125 Extension 15 Abduction 120 External Rotation at 45 degrees 25 Abduction Internal Rotation 55 Left Shoulder ROM WFL Yes Flexion 165 Extension 20 Abduction 150 External Rotation at 45 degrees 30 Abduction Internal Rotation 58 Shoulder ROM Limitations Shoulder ROM Limitations Soft Tissue Tightness Muscle Weakness Pain Elbow/Forearm Range of Motion Elbow/Forearm luisa Elbow/Forearm ROM WFL Yes PT-OP-L Special Tests Start: 03/13/19 09:21 Freq: Status: Active Protocol: Document 03/13/19 13:11 [facility] (Rec: 03/13/19 13:41 [facility] [id number]) Special Tests Cervical Spine Special Tests Traction Test Results decreased pain Comments gentle Foraminal Compression Test Results increased pain Comments gentle Shoulder Special Tests AC Joint Compression Test Results positive luisa Passive ER Rotator Cuff Test Results negative luisa IR/Horizontal ADD Impingement Test Results positive luisa Drop Arm Rotator Cuff Test Results negative luisa PT-OP-M Strength Start: 03/13/19 09:21 Freq: Status: Active Protocol: Document 03/13/19 13:11 [facility] (Rec: 03/13/19 13:41 [facility] [id number]) Cervical Spine Strength Cervical Spine Manual Muscle Testing Testing Position Sitting Flexion (C1-2) 3+ Fair+ Extension 3+ Fair+ Rotation Left 3+ Fair+ Rotation Right 3+ Fair+ Lateral Flexion Left (C3) 3+ Fair+ Lateral Flexion Right (C3) 3+ Fair+ Shoulder Strength Shoulder Manual Muscle Testing Right Flexion 3+ Fair+ Extension 4- Good- Abduction (C5) 3+ Fair+ External Rotation 3+ Fair+ Internal Rotation 4- Good- Left Flexion 3+ Fair+ Extension 4- Good- Abduction (C5) 3+ Fair+ External Rotation 3+ Fair+ Internal Rotation 4- Good- PT-OP-Q Treatments Start: 03/13/19 09:21 Freq: Status: Active Protocol: Document 04/22/19 09:30 [facility] (Rec: 04/27/19 08:46 [facility] [id number]) Manual Therapy Treatment Soft Tissue Mobilization 1 Body Location luisa mid thoracic paraspinals, luisa UT Mobilization Type Myofascial Release Rolling Strumming Body Position Prone Joint Mobilizations Thoracic PA's Joint T4-T10 Grade III Body Position Prone Reps/Duration 10 min PT-OP-R Modalities Start: 03/13/19 09:21 Freq: Status: Active Protocol: Document 04/22/19 09:30 [facility] (Rec: 04/27/19 08:46 [facility] [id number]) Electric Stimulation Electric Stimulation Interferential Current (IFC) Body Location luisa mid thoracic spine, luisa UT Duration (Minutes) 15 Target/Sweep Sweep Patient Position Prone Combined With Heat/Cold Hot Pack Comments MH to c/s as well Ultrasound Therapy Treatment mid thoracic paraspinals Treatment Duration (minutes) 10 Patient Position Prone Duty Cycle 100% Intensity Setting (w/cm2) 1.5 PT-OP-T Assessment and Plan Start: 03/13/19 09:21 Freq: Status: Active Protocol: Document 04/22/19 09:30 [facility] (Rec: 04/27/19 08:46 [facility] [id number]) Physical Therapy Assessment Goals Three Impairment Pain Short Term Goal (STG) Decrease pain by 50% STG Duration 04/24/19 Mcc Goal (LTG) Pain decreased by 75% LTG Duration 06/13/19 Two Impairment activity tolerance Short Term Goal (STG) Patient able to do 50% of her usual activities with minimal to no increase in pain STG Duration 04/24/19 Calcine Furnace Tender Goal (LTG) Patient able to resume her usual activity level with minimal to no increase in pain LTG Duration 06/13/19 One Impairment ROM and strength Short Term Goal (STG) Patient able to tolerate HEP of gentle ROM, strengthening, and postural correction ex with minimal to no increase in pain STG Duration 04/24/19 Mcc Goal (LTG) Patient able to tolerate progression of ther ex and return to cardiac rehab LTG Duration 06/13/19 Assessment Summary Assessment High pain level persists, may be complicated by patient infection. Agreed to place patient on hold for PT until she recovers from gut infection, then resume PT. Physical Therapy Plan Frequency and Duration Frequency of Treatment 2x/Week Duration of Treatment 12 wks Plan of Care Start Date 03/13/19 Plan of Care End Date 06/13/19 Therapeutic Interventions Therapeutic Interventions Home Exercise Program Manual Therapy Neuromuscular Re-education Patient/Caregiver Education Self-Care/Home Management Soft Tissue Mobilization Taping Therapeutic Activities Therapeutic Exercises Modalities Cold Pack/Ice Massage Electric Stimulation Hot Packs Iontophoresis Ultrasound Hold Physical Therapy Reason For Hold until patient recovers from gut infection, then resume PT. Anticipate 3 wks.
--- NOTE | 2019-06-24 10:45 | PT.OPPOC ---
Current Diagnoses Pain in right shoulder (06/24/19) Cervicalgia (06/24/19) Pain in thoracic spine (06/24/19) Visit Care Team Role Provider Type Soledad Vick DO Primary Care Provider Physician Specialty: Family Practice Address: [address] [place] [address], [facility] [address], [address] Email: [email or web address] Arjun Lay MD Attending Provider Non-Staff Specialty: Neurosurgery Address: [address] [place] [address], [phone] Email: Plan Of Care PT-OP-T Assessment and Plan Start: 03/13/19 09:21 Freq: Status: Active Protocol: Document 06/24/19 09:44 SAK (Rec: 06/24/19 10:35 SAK [id number]) Physical Therapy Assessment Goals Three Impairment Pain Notcher Goal (LTG) Pain decreased by 50% LTG Duration 08/08/19 Two Impairment activity tolerance Short Term Goal (STG) Patient able to do 50% of her usual activities with minimal to no increase in pain STG Duration 07/15/19 Notcher Goal (LTG) Patient able to resume her usual activity level with minimal to no increase in pain LTG Duration 08/08/19 One Impairment ROM and strength Short Term Goal (STG) Patient able to tolerate HEP of gentle ROM, strengthening, and postural correction ex with minimal to no increase in pain STG Duration 07/15/19 Correction Goal (LTG) Patient able to tolerate progression of ther ex and return to cardiac rehab LTG Duration 08/08/19 Assessment Summary Assessment Patient returns to PT after 2 months of multiple medical issues as noted above. She is reporting feeling very weak and having increase in pain. Feel she would benefit from resumption of PT to decrease her pain, improve her posture, ROM, and strength, and help her return to her prior level of function. Physical Therapy Plan Frequency and Duration Duration of Treatment 6 wks Plan of Care Start Date 06/24/19 Plan of Care End Date 08/08/19 Therapeutic Interventions Therapeutic Interventions Home Exercise Program,Manual Therapy,Patient/Caregiver Education,Self-Care/Home Management,Taping,Therapeutic Activities,Therapeutic Exercises Modalities Electric Stimulation,Hot Packs ,Infrared Therapy, Iontophoresis,Ultrasound Next Visit Focus/Plan Next Visit Plan Continue PT with emphasis on pain management, thoracic mobilization, postural correction, strengthening, and ROM. Plan of Care Dates Plan of Care Start Date 06/24/19 Plan of Care End Date 08/08/19
--- NOTE | 2019-06-24 10:45 | PT.OTRE ---
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) History of recurrent pneumonia (Resolved) Hypertension (Chronic) Prinzmetal's angina (Chronic 1975) Shingles (Resolved 2016) Sleep apnea (Chronic) Statin intolerance (Chronic) Surgical History (Last Reviewed 02/28/19 @ 10:34 by Erick Jasso MD) History of arthroplasty (Resolved 12/09/12) History of arthroplasty (Resolved 01/20/13) History of cataract removal with insertion of prosthetic lens (Resolved 2014) History of cholecystectomy (Resolved) History of tonsillectomy (Resolved) Stented coronary artery (Resolved 2013) Visit Care Team Role Provider Type Soledad Vick DO Primary Care Provider Physician Specialty: Family Practice Address: [address] [place] [address], [address], [address] Email: [email or web address] Arjun Lay MD Attending Provider Non-Staff Specialty: Neurosurgery Address: [address] [place] [address], [phone] Email: Physical Therapy Re-Evaluation PT-OP-A Visit Information Start: 03/13/19 09:21 Freq: Status: Active Protocol: Document 06/24/19 09:44 BEN (Rec: 06/24/19 10:35 BEN [id number]) Out-Patient Physical Therapy Visit Information Visit Information Visit Type Treatment Note Visit Start Time 09:45 Visit Stop Time 10:38 Total Visit Minutes 53 Visit Number 8 Number of CHAINSTITCH TUNNEL ELASTIC OPERATOR Visits 0 Evaluation Information Evaluation Date 03/13/19 Precautions Precautions Her past medical history is notable for atrial fibrillation and coronary disease. She has had prior stents placed. She has had a prior CVA. She has had a history of thyroid nodule. She had a biopsy done that was nondiagnostic. She also has a history of a prior melanoma and diagnosis of monoclonal gammopathy. Patient reports since last seen in PT had a tooth abscess with bone infection necessitating 3 months of PT, and was diagnosed with anemia recently for which she will soon received iron infusions. PT-OP-B Current Condition Start: 03/13/19 09:21 Freq: Status: Active Protocol: Document 03/13/19 13:11 [facility] (Rec: 03/13/19 13:41 [facility] [id number]) Current Condition History of Current Condition Onset Date 1+ yr Current Complaints pain c/s, thoracic spine, luisa shoulders. History of Current Condition Patient reports persistent, worsening, function-limiting pain luisa cervical, thoracic, and shoulders, most severe at bra line. Pain severely limits her activity tolerance and ability to sleep. Gradual onset, no traumatic injury. States her activity level is very limited. Prior Treatments and Tests MRI thoracic spine 11/28/18 showed marked facet arthrosis with mild neural foraminal stenosis bilateral T2-3 through T4-5 and right T10-11, otherwise mild/moderate diffuse thoracic facet joint arthrosis, paracentral protrusions causing trace spinal cord flattening T6-T7 through T8-9, moderate edematous (type I) discogenic endplate marrow degeneration T7-8 through T9-T10, partly included multilevel cervical and upper lumbar spinal stenosis MRI cervical spine 01/10/19 showed uncovertebral and facet joint arthrosis causing mod/ marked bilateral neural foraminal stenosis C3-C4, C5- C6, and C6-7. Mild/moderate central stenosis at C3-C4 through C6-C7 due to shallow central protrusion C4-C5, disc /osteophyte complexes at the other levals, and ligamenta flava hypertrophy at C3-C4. Resulting spinal cord flattening, greatest at C3-C4, mild neural foraminal stenosis at bilateral C4-C5 and left C7-T1. Future Testing and Treatments Planned Possible referral to pain management physician if PT not helpful. Treatment Goals Patient/Caregiver Goals Decrease pain and improve her activity tolerance and quality of life. Prior Functional Status Baseline Function- ADL's Independent Baseline Function- Mobility Independent Baseline Function- Gait Independent Baseline Function- Recreation/Hobbies no restrictions Current Functional Impairments (Reported) Functional Limitations- ADL's painful Functional Limitations- Mobility/Gait painful Functional Limitations- Recreation/ painful and extremely limited Hobbies Functional Limitations- Other unable to lay supine due to pain, can only tolerate laying on her right side PT-OP-C Subjective Start: 03/13/19 09:21 Freq: Status: Active Protocol: Document 06/24/19 09:44 SAK (Rec: 06/24/19 10:35 [facility] [id number]) OP-PT Subjective Patient Comments Patient Comments Tooth abscess; tooth pulled last week. Was sick for weeks with cold/flu including eye and sinus infections. Still being treated for gut bug. Feeling extremely weak. Not sure if she can give PT 100 but wants to try. Hasn't been back to cardiac rehab. Seeing cancer physician in 2 wks. States she gets fatigued just walking up 6 steps or functioning at home. Pain has worsened since last being seen in PT. PT-OP-F Manual Assessment Start: 03/13/19 09:21 Freq: Status: Active Protocol: Document 03/13/19 13:11 SAK (Rec: 03/13/19 13:41 [facility] [id number]) Manual Assessments Soft Tissue Assessment Soft Tissue Mobility Assessment palpable tightness throughout SCM, upper traps, levator scap , rhomboids PT-OP-H Neuro Start: 03/13/19 09:21 Freq: Status: Active Protocol: Document 03/13/19 13:11 [facility] (Rec: 03/13/19 13:41 [facility] [id number]) Sensation Evaluation Comments Summary Comments denies N/T at this time. PT-OP-J Posture/Palpation/Skin Start: 03/13/19 09:21 Freq: Status: Active Protocol: Document 03/13/19 13:11 [facility] (Rec: 03/13/19 13:41 [facility] [id number]) Posture Evaluation Position Sitting Head/C-Spine Posture C-Spine Flattened T-Spine Posture Increased Kyphosis Thorax Posture (L) Elevated,(R) Elevated Shoulder Posture (L) Rounded,(R) Rounded,(L) Forward,(R) Forward Scapula Posture (L) Protracted,(R) Protracted Arm Posture (L) Internally Rotated,(R) Internally Rotated PT-OP-K Range of Motion Start: 03/13/19 09:21 Freq: Status: Active Protocol: Document 03/13/19 13:11 [facility] (Rec: 03/13/19 13:41 [facility] [id number]) Cervical Spine Range of Motion Cervical Spine Active Flexion 48 Extension 25 Rotation Left 48 Rotation Right 45 Lateral Flexion Left 18 Lateral Flexion Right 21 ROM Limitations Pain Shoulder Goniometric Range of Motion Shoulder Measured in Degrees Right Shoulder ROM WFL No Flexion 125 Extension 15 Abduction 120 External Rotation at 45 degrees 25 Abduction Internal Rotation 55 Left Shoulder ROM WFL Yes Flexion 165 Extension 20 Abduction 150 External Rotation at 45 degrees 30 Abduction Internal Rotation 58 Shoulder ROM Limitations Shoulder ROM Limitations Soft Tissue Tightness,Muscle Weakness,Pain Elbow/Forearm Range of Motion Elbow/Forearm Measured in Degrees lusia Elbow/Forearm ROM WFL Yes PT-OP-L Special Tests Start: 03/13/19 09:21 Freq: Status: Active Protocol: Document 03/13/19 13:11 [facility] (Rec: 03/13/19 13:41 [facility] [id number]) Special Tests Cervical Spine Special Tests Traction Test Results decreased pain Comments gentle Foraminal Compression Test Results increased pain Comments gentle Shoulder Special Tests AC Joint Compression Test Results positive luisa Passive ER Rotator Cuff Test Results negative luisa IR/Horizontal ADD Impingement Test Results positive luisa Drop Arm Rotator Cuff Test Results negative luisa PT-OP-M Strength Start: 03/13/19 09:21 Freq: Status: Active Protocol: Document 03/13/19 13:11 [facility] (Rec: 03/13/19 13:41 [facility] [id number]) Cervical Spine Strength Cervical Spine Manual Muscle Testing Testing Position Sitting Flexion (C1-2) 3+ Fair+ Extension 3+ Fair+ Rotation Left 3+ Fair+ Rotation Right 3+ Fair+ Lateral Flexion Left (C3) 3+ Fair+ Lateral Flexion Right (C3) 3+ Fair+ Shoulder Strength Shoulder Manual Muscle Testing Right Flexion 3+ Fair+ Extension 4- Good- Abduction (C5) 3+ Fair+ External Rotation 3+ Fair+ Internal Rotation 4- Good- Left Flexion 3+ Fair+ Extension 4- Good- Abduction (C5) 3+ Fair+ External Rotation 3+ Fair+ Internal Rotation 4- Good- PT-OP-Q Treatments Start: 03/13/19 09:21 Freq: Status: Active Protocol: Document 04/22/19 09:30 [facility] (Rec: 04/27/19 08:46 [facility] [id number]) Manual Therapy Treatment Soft Tissue Mobilization 1 Body Location luisa mid thoracic paraspinals, luisa UT Mobilization Type Myofascial Release,Rolling, Strumming Body Position Prone Joint Mobilizations Thoracic PA's Joint T4-T10 Grade III Body Position Prone Reps/Duration 10 min PT-OP-R Modalities Start: 03/13/19 09:21 Freq: Status: Active Protocol: Document 06/24/19 09:44 [facility] (Rec: 06/24/19 10:35 [facility] [id number]) Electric Stimulation Electric Stimulation Interferential Current (IFC) Body Location luisa mid thoracic spine, luisa UT Duration (Minutes) 15 Target/Sweep Sweep Patient Position Supine Combined With Heat/Cold Hot Pack Comments MH to c/s as well Head of mat elevated Ultrasound Therapy Treatment mid thoracic paraspinals Treatment Duration (minutes) 10 Patient Position Sitting Duty Cycle 100% Intensity Setting (w/cm2) 1.5 PT-OP-T Assessment and Plan Start: 03/13/19 09:21 Freq: Status: Active Protocol: Document 06/24/19 09:44 [facility] (Rec: 06/24/19 10:35 [facility] [id number]) Physical Therapy Assessment Goals Three Impairment Pain Vat Skimmer Goal (LTG) Pain decreased by 50% LTG Duration 08/08/19 Two Impairment activity tolerance Short Term Goal (STG) Patient able to do 50% of her usual activities with minimal to no increase in pain STG Duration 07/15/19 Senior Living Goal (LTG) Patient able to resume her usual activity level with minimal to no increase in pain LTG Duration 08/08/19 One Impairment ROM and strength Short Term Goal (STG) Patient able to tolerate HEP of gentle ROM, strengthening, and postural correction ex with minimal to no increase in pain STG Duration 07/15/19 Vat Skimmer Goal (LTG) Patient able to tolerate progression of ther ex and return to cardiac rehab LTG Duration 08/08/19 Assessment Summary Assessment Patient returns to PT after 2 months of multiple medical issues as noted above. She is reporting feeling very weak and having increase in pain. Feel she would benefit from resumption of PT to decrease her pain, improve her posture, ROM, and strength, and help her return to her prior level of function. Physical Therapy Plan Frequency and Duration Duration of Treatment 6 wks Plan of Care Start Date 06/24/19 Plan of Care End Date 08/08/19 Therapeutic Interventions Therapeutic Interventions Home Exercise Program,Manual Therapy,Patient/Caregiver Education,Self-Care/Home Management,Taping,Therapeutic Activities,Therapeutic Exercises Modalities Electric Stimulation,Hot Packs ,Infrared Therapy, Iontophoresis,Ultrasound Next Visit Focus/Plan Next Visit Plan Continue PT with emphasis on pain management, thoracic mobilization, postural correction, strengthening, and ROM.
--- NOTE | 2019-06-24 10:46 | PT.OPPOC ---
Current Diagnoses Pain in right shoulder (06/24/19) Cervicalgia (06/24/19) Pain in thoracic spine (06/24/19) Visit Care Team Role Provider Type Soledad Vick DO Primary Care Provider Physician Specialty: Family Practice Address: [address] [place] [address], [facility] [address], [place], [address] Email: [email or web address] Arjun Lya MD Attending Provider Non-Staff Specialty: Neurosurgery Address: [address] [place] [address], [phone] Email: Plan Of Care PT-OP-T Assessment and Plan Start: 03/13/19 09:21 Freq: Status: Active Protocol: Document 06/24/19 09:44 SAK (Rec: 06/24/19 10:35 SAK [id number]) Physical Therapy Assessment Goals Three Impairment Pain Head Of Integrated Media Goal (LTG) Pain decreased by 50% LTG Duration 08/08/19 Two Impairment activity tolerance Short Term Goal (STG) Patient able to do 50% of her usual activities with minimal to no increase in pain STG Duration 07/15/19 Head Of Integrated Media Goal (LTG) Patient able to resume her usual activity level with minimal to no increase in pain LTG Duration 08/08/19 One Impairment ROM and strength Short Term Goal (STG) Patient able to tolerate HEP of gentle ROM, strengthening, and postural correction ex with minimal to no increase in pain STG Duration 07/15/19 Fdc Goal (LTG) Patient able to tolerate progression of ther ex and return to cardiac rehab LTG Duration 08/08/19 Assessment Summary Assessment Patient returns to PT after 2 months of multiple medical issues as noted above. She is reporting feeling very weak and having increase in pain. Feel she would benefit from resumption of PT to decrease her pain, improve her posture, ROM, and strength, and help her return to her prior level of function. Physical Therapy Plan Frequency and Duration Duration of Treatment 6 wks Plan of Care Start Date 06/24/19 Plan of Care End Date 08/08/19 Therapeutic Interventions Therapeutic Interventions Home Exercise Program,Manual Therapy,Patient/Caregiver Education,Self-Care/Home Management,Taping,Therapeutic Activities,Therapeutic Exercises Modalities Electric Stimulation,Hot Packs ,Infrared Therapy, Iontophoresis,Ultrasound Next Visit Focus/Plan Next Visit Plan Continue PT with emphasis on pain management, thoracic mobilization, postural correction, strengthening, and ROM. Plan of Care Dates Plan of Care Start Date 06/24/19 Plan of Care End Date 08/08/19
--- NOTE | 2019-08-26 12:11 | PT.OTRE ---
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) History of recurrent pneumonia (Resolved) Hypertension (Chronic) Prinzmetal's angina (Chronic 1975) Shingles (Resolved 2016) Sleep apnea (Chronic) Statin intolerance (Chronic) Thyroid nodule (Acute) Surgical History (Last Reviewed 08/09/19 @ 04:39 by Silvia Crenshaw DO) History of arthroplasty (Resolved 12/09/12) History of arthroplasty (Resolved 01/20/13) History of cataract removal with insertion of prosthetic lens (Resolved 2014) History of cholecystectomy (Resolved) History of tonsillectomy (Resolved) Stented coronary artery (Resolved 2013) Visit Care Team Role Provider Type Soledad Vick DO Primary Care Provider Physician Specialty: Family Practice Address: [address] [place] [address], [address], [address] Email: [email or web address] Arjun Lay MD Attending Provider Non-Staff Specialty: Neurosurgery Address: [address] [place] [address], [phone] Email: Physical Therapy Re-Evaluation PT-OP-A Visit Information Start: 03/13/19 09:21 Freq: Status: Active Protocol: Document 08/26/19 09:44 BEN (Rec: 08/26/19 10:29 BEN [id number]) Out-Patient Physical Therapy Visit Information Visit Information Visit Type Re-Evaluation Visit Start Time 09:45 Visit Stop Time 10:33 Total Visit Minutes 48 Visit Number 9 Number of TRENCH DIGGING MACHINE OPERATOR Visits 0 Evaluation Information Evaluation Date 03/13/19 Precautions Precautions Her past medical history is notable for atrial fibrillation and coronary disease. She has had prior stents placed. She has had a prior CVA. She has had a history of thyroid nodule. She had a biopsy done that was nondiagnostic. She also has a history of a prior melanoma and diagnosis of monoclonal gammopathy. Patient reports since last seen in PT had a tooth abscess with bone infection necessitating 3 months of PT, and was diagnosed with anemia recently for which she will soon received iron infusions. PT-OP-B Current Condition Start: 03/13/19 09:21 Freq: Status: Active Protocol: Document 03/13/19 13:11 [facility] (Rec: 03/13/19 13:41 [facility] [id number]) Current Condition History of Current Condition Onset Date 1+ yr Current Complaints pain c/s, thoracic spine, luisa shoulders. History of Current Condition Patient reports persistent, worsening, function-limiting pain luisa cervical, thoracic, and shoulders, most severe at bra line. Pain severely limits her activity tolerance and ability to sleep. Gradual onset, no traumatic injury. States her activity level is very limited. Prior Treatments and Tests MRI thoracic spine 11/28/18 showed marked facet arthrosis with mild neural foraminal stenosis bilateral T2-3 through T4-5 and right T10-11, otherwise mild/moderate diffuse thoracic facet joint arthrosis, paracentral protrusions causing trace spinal cord flattening T6-T7 through T8-9, moderate edematous (type I) discogenic endplate marrow degeneration T7-8 through T9-T10, partly included multilevel cervical and upper lumbar spinal stenosis MRI cervical spine 01/10/19 showed uncovertebral and facet joint arthrosis causing mod/ marked bilateral neural foraminal stenosis C3-C4, C5- C6, and C6-7. Mild/moderate central stenosis at C3-C4 through C6-C7 due to shallow central protrusion C4-C5, disc /osteophyte complexes at the other levals, and ligamenta flava hypertrophy at C3-C4. Resulting spinal cord flattening, greatest at C3-C4, mild neural foraminal stenosis at bilateral C4-C5 and left C7-T1. Future Testing and Treatments Planned Possible referral to pain management physician if PT not helpful. Treatment Goals Patient/Caregiver Goals Decrease pain and improve her activity tolerance and quality of life. Prior Functional Status Baseline Function- ADL's Independent Baseline Function- Mobility Independent Baseline Function- Gait Independent Baseline Function- Recreation/Hobbies no restrictions Current Functional Impairments (Reported) Functional Limitations- ADL's painful Functional Limitations- Mobility/Gait painful Functional Limitations- Recreation/ painful and extremely limited Hobbies Functional Limitations- Other unable to lay supine due to pain, can only tolerate laying on her right side PT-OP-C Subjective Start: 03/13/19 09:21 Freq: Status: Active Protocol: Document 08/26/19 09:44 [facility] (Rec: 08/26/19 10:29 [facility] [id number]) OP-PT Subjective Patient Comments Patient Comments doesn't feel well systemically , difficult to exercise. Has been to cardiology for testing . Went to ER with atypical chest pain. Has had BP elevated, new medication BP lowered briefly but seems to have increased again. Recent MRI lumbar spine showed severe lumbar spondylosis with multilevel neural foraminal narrowing and subarticular zone stenosis with displacement of multiple lmbar nerve roots and flattending of left L5 nerve root. Also severe central canal stenosis at L45 with crowding of nerve roots. Reports activity induced severe pain in neck, mid back, and lower back. Not currently doing cardiac rehab. States she feels very weak. Just returned from [place], reports poor tolerance for trip. Has had horrible asthma for 2 weeks. Using heat sporadically. Has only been doing neck ROM, no other exercises. Sees Dr. Vick 08/29/19 and medical driver next week. PT-OP-F Manual Assessment Start: 03/13/19 09:21 Freq: Status: Active Protocol: Document 03/13/19 13:11 [facility] (Rec: 03/13/19 13:41 [facility] [id number]) Manual Assessments Soft Tissue Assessment Soft Tissue Mobility Assessment palpable tightness throughout SCM, upper traps, levator scap , rhomboids PT-OP-H Neuro Start: 03/13/19 09:21 Freq: Status: Active Protocol: Document 03/13/19 13:11 [facility] (Rec: 03/13/19 13:41 [facility] [id number]) Sensation Evaluation Comments Summary Comments denies N/T at this time. PT-OP-J Posture/Palpation/Skin Start: 03/13/19 09:21 Freq: Status: Active Protocol: Document 03/13/19 13:11 [facility] (Rec: 03/13/19 13:41 [facility] [id number]) Posture Evaluation Position Sitting Head/C-Spine Posture C-Spine Flattened T-Spine Posture Increased Kyphosis Thorax Posture (L) Elevated,(R) Elevated Shoulder Posture (L) Rounded,(R) Rounded,(L) Forward,(R) Forward Scapula Posture (L) Protracted,(R) Protracted Arm Posture (L) Internally Rotated,(R) Internally Rotated PT-OP-K Range of Motion Start: 03/13/19 09:21 Freq: Status: Active Protocol: Document 03/13/19 13:11 [facility] (Rec: 03/13/19 13:41 [facility] [id number]) Cervical Spine Range of Motion Cervical Spine Active Flexion 48 Extension 25 Rotation Left 48 Rotation Right 45 Lateral Flexion Left 18 Lateral Flexion Right 21 ROM Limitations Pain Shoulder Goniometric Range of Motion Shoulder Measured in Degrees Right Shoulder ROM WFL No Flexion 125 Extension 15 Abduction 120 External Rotation at 45 degrees 25 Abduction Internal Rotation 55 Left Shoulder ROM WFL Yes Flexion 165 Extension 20 Abduction 150 External Rotation at 45 degrees 30 Abduction Internal Rotation 58 Shoulder ROM Limitations Shoulder ROM Limitations Soft Tissue Tightness,Muscle Weakness,Pain Elbow/Forearm Range of Motion Elbow/Forearm Measured in Degrees luisa Elbow/Forearm ROM WFL Yes PT-OP-L Special Tests Start: 03/13/19 09:21 Freq: Status: Active Protocol: Document 03/13/19 13:11 [facility] (Rec: 03/13/19 13:41 [facility] [id number]) Special Tests Cervical Spine Special Tests Traction Test Results decreased pain Comments gentle Foraminal Compression Test Results increased pain Comments gentle Shoulder Special Tests AC Joint Compression Test Results positive luisa Passive ER Rotator Cuff Test Results negative luisa IR/Horizontal ADD Impingement Test Results positive luisa Drop Arm Rotator Cuff Test Results negative luisa PT-OP-M Strength Start: 03/13/19 09:21 Freq: Status: Active Protocol: Document 03/13/19 13:11 [facility] (Rec: 03/13/19 13:41 [facility] [id number]) Cervical Spine Strength Cervical Spine Manual Muscle Testing Testing Position Sitting Flexion (C1-2) 3+ Fair+ Extension 3+ Fair+ Rotation Left 3+ Fair+ Rotation Right 3+ Fair+ Lateral Flexion Left (C3) 3+ Fair+ Lateral Flexion Right (C3) 3+ Fair+ Shoulder Strength Shoulder Manual Muscle Testing Right Flexion 3+ Fair+ Extension 4- Good- Abduction (C5) 3+ Fair+ External Rotation 3+ Fair+ Internal Rotation 4- Good- Left Flexion 3+ Fair+ Extension 4- Good- Abduction (C5) 3+ Fair+ External Rotation 3+ Fair+ Internal Rotation 4- Good- PT-OP-Q Treatments Start: 03/13/19 09:21 Freq: Status: Active Protocol: Document 08/26/19 09:44 [facility] (Rec: 08/26/19 10:29 [facility] [id number]) Cardio Equipment Recumbent Stepper (Sci-Fit) Duration (Minutes) 5 Resistance 1.0 Seat Position 9 Manual Therapy Treatment Other Other Manual Treatments reassessment including ROM and MMT. PT-OP-R Modalities Start: 03/13/19 09:21 Freq: Status: Active Protocol: Document 08/26/19 09:44 [facility] (Rec: 08/26/19 12:11 [facility] [id number]) Electric Stimulation Electric Stimulation Interferential Current (IFC) Body Location luisa mid thoracic spine, luisa UT Duration (Minutes) 15 Target/Sweep Sweep Patient Position Supine Combined With Heat/Cold Hot Pack Comments MH to c/s as well Head of mat elevated Ultrasound Therapy Treatment mid thoracic paraspinals Treatment Duration (minutes) 10 Patient Position Sitting Duty Cycle 100% Intensity Setting (w/cm2) 1.5 PT-OP-T Assessment and Plan Start: 03/13/19 09:21 Freq: Status: Active Protocol: Document 08/26/19 09:44 [facility] (Rec: 08/26/19 12:11 [facility] [id number]) Physical Therapy Assessment Goals Three Impairment Pain Hoisting Laborer Goal (LTG) Pain decreased by 50% 08/26/19: no progress, hasn't been seen in PT since 06/24/19 due to PT injury. LTG Duration 11/25/19 Two Impairment activity tolerance Short Term Goal (STG) Patient able to do 50% of her usual activities with minimal to no increase in pain STG Duration 10/08/19 Hoisting Laborer Goal (LTG) Patient able to resume her usual activity level with minimal to no increase in pain LTG Duration 11/25/19 One Impairment ROM and strength Short Term Goal (STG) Patient able to tolerate HEP of gentle ROM, strengthening, and postural correction ex with minimal to no increase in pain STG Duration 10/08/19 Hoisting Laborer Goal (LTG) Patient able to tolerate progression of ther ex and return to cardiac rehab LTG Duration 11/25/19 Assessment Summary Assessment Patient not seen in physical therapy since 06/24/19 due to PT out with injury. Since that time she has again had multiple medical issues as noted above. Feel she would benefit from PT for pain management, gentle strengthening and postural correction. Will monitor vital signs in therapy, and progress slowly as tolerated. Physical Therapy Plan Frequency and Duration Frequency of Treatment 2x/wk Duration of Treatment 12 wks Plan of Care Start Date 08/26/19 Plan of Care End Date 11/25/19 Therapeutic Interventions Therapeutic Interventions Home Exercise Program,Manual Therapy,Patient/Caregiver Education,Self-Care/Home Management,Taping,Therapeutic Activities,Therapeutic Exercises Modalities Electric Stimulation,Hot Packs ,Infrared Therapy, Iontophoresis,Ultrasound Next Visit Focus/Plan Next Visit Plan Continue PT with emphasis on pain management, thoracic mobilization, postural correction, strengthening, and ROM.
--- NOTE | 2019-08-26 12:12 | PT.OPPOC ---
Current Diagnoses Pain in right shoulder (08/26/19) Cervicalgia (08/26/19) Low back pain (08/26/19) Pain in thoracic spine (08/26/19) Visit Care Team Role Provider Type Soledad Vick DO Primary Care Provider Physician Specialty: Family Practice Address: [address] [place] [address], [facility] [address], [address] Email: [email or web address] Arjun Lay MD Attending Provider Non-Staff Specialty: Neurosurgery Address: [address] [place] [address], [phone] Email: Plan Of Care PT-OP-T Assessment and Plan Start: 03/13/19 09:21 Freq: Status: Active Protocol: Document 08/26/19 09:44 [facility] (Rec: 08/26/19 12:11 [facility] [id number]) Physical Therapy Assessment Goals Three Impairment Pain [facility] Goal (LTG) Pain decreased by 50% 08/26/19: no progress, hasn't been seen in PT since 06/24/19 due to PT injury. LTG Duration 11/25/19 Two Impairment activity tolerance Short Term Goal (STG) Patient able to do 50% of her usual activities with minimal to no increase in pain STG Duration 10/08/19 Senior Programmer Goal (LTG) Patient able to resume her usual activity level with minimal to no increase in pain LTG Duration 11/25/19 One Impairment ROM and strength Short Term Goal (STG) Patient able to tolerate HEP of gentle ROM, strengthening, and postural correction ex with minimal to no increase in pain STG Duration 10/08/19 [facility] Goal (LTG) Patient able to tolerate progression of ther ex and return to cardiac rehab LTG Duration 11/25/19 Assessment Summary Assessment Patient not seen in physical therapy since 06/24/19 due to PT out with injury. Since that time she has again had multiple medical issues as noted above. Feel she would benefit from PT for pain management, gentle strengthening and postural correction. Will monitor vital signs in therapy, and progress slowly as tolerated. Physical Therapy Plan Frequency and Duration Frequency of Treatment 2x/wk Duration of Treatment 12 wks Plan of Care Start Date 08/26/19 Plan of Care End Date 11/25/19 Therapeutic Interventions Therapeutic Interventions Home Exercise Program,Manual Therapy,Patient/Caregiver Education,Self-Care/Home Management,Taping,Therapeutic Activities,Therapeutic Exercises Modalities Electric Stimulation,Hot Packs ,Infrared Therapy, Iontophoresis,Ultrasound Next Visit Focus/Plan Next Visit Plan Continue PT with emphasis on pain management, thoracic mobilization, postural correction, strengthening, and ROM. Plan of Care Dates Plan of Care Start Date 08/26/19 Plan of Care End Date 11/25/19
--- NOTE | 2019-08-28 09:31 | PT.OTN ---
Current Diagnoses Pain in right shoulder (08/28/19) Cervicalgia (08/28/19) Low back pain (08/28/19) Pain in thoracic spine (08/28/19) Physical Therapy Treatment Note PT-OP-A Visit Information Start: 03/13/19 09:21 Freq: Status: Active Protocol: Document 08/28/19 08:08 [facility] (Rec: 08/28/19 09:31 [facility] [id number]) Out-Patient Physical Therapy Visit Information Visit Information Visit Type Treatment Note Visit Start Time 08:15 Visit Stop Time 09:08 Total Visit Minutes 53 Visit Number 10 Number of DAMPENER OPERATOR Visits 0 Evaluation Information Evaluation Date 03/13/19 Precautions Precautions Her past medical history is notable for atrial fibrillation and coronary disease. She has had prior stents placed. She has had a prior CVA. She has had a history of thyroid nodule. She had a biopsy done that was nondiagnostic. She also has a history of a prior melanoma and diagnosis of monoclonal gammopathy. Patient reports since last seen in PT had a tooth abscess with bone infection necessitating 3 months of PT, and was diagnosed with anemia recently for which she will soon received iron infusions. PT-OP-B Current Condition Start: 03/13/19 09:21 Freq: Status: Active Protocol: Document 03/13/19 13:11 [facility] (Rec: 03/13/19 13:41 [facility] [id number]) Current Condition History of Current Condition Onset Date 1+ yr Current Complaints pain c/s, thoracic spine, luisa shoulders. History of Current Condition Patient reports persistent, worsening, function-limiting pain luisa cervical, thoracic, and shoulders, most severe at bra line. Pain severely limits her activity tolerance and ability to sleep. Gradual onset, no traumatic injury. States her activity level is very limited. Prior Treatments and Tests MRI thoracic spine 11/28/18 showed marked facet arthrosis with mild neural foraminal stenosis bilateral T2-3 through T4-5 and right T10-11, otherwise mild/moderate diffuse thoracic facet joint arthrosis, paracentral protrusions causing trace spinal cord flattening T6-T7 through T8-9, moderate edematous (type I) discogenic endplate marrow degeneration T7-8 through T9-T10, partly included multilevel cervical and upper lumbar spinal stenosis MRI cervical spine 01/10/19 showed uncovertebral and facet joint arthrosis causing mod/ marked bilateral neural foraminal stenosis C3-C4, C5- C6, and C6-7. Mild/moderate central stenosis at C3-C4 through C6-C7 due to shallow central protrusion C4-C5, disc /osteophyte complexes at the other levals, and ligamenta flava hypertrophy at C3-C4. Resulting spinal cord flattening, greatest at C3-C4, mild neural foraminal stenosis at bilateral C4-C5 and left C7-T1. Future Testing and Treatments Planned Possible referral to pain management physician if PT not helpful. Treatment Goals Patient/Caregiver Goals Decrease pain and improve her activity tolerance and quality of life. Prior Functional Status Baseline Function- ADL's Independent Baseline Function- Mobility Independent Baseline Function- Gait Independent Baseline Function- Recreation/Hobbies no restrictions Current Functional Impairments (Reported) Functional Limitations- ADL's painful Functional Limitations- Mobility/Gait painful Functional Limitations- Recreation/ painful and extremely limited Hobbies Functional Limitations- Other unable to lay supine due to pain, can only tolerate laying on her right side PT-OP-C Subjective Start: 03/13/19 09:21 Freq: Status: Active Protocol: Document 08/28/19 08:08 [facility] (Rec: 08/28/19 09:31 [facility] [id number]) OP-PT Subjective Patient Comments Patient Comments No new c/o, tolerated last session ok. Feeling a little more hopeful PT-OP-F Manual Assessment Start: 03/13/19 09:21 Freq: Status: Active Protocol: Document 03/13/19 13:11 [facility] (Rec: 03/13/19 13:41 [facility] [id number]) Manual Assessments Soft Tissue Assessment Soft Tissue Mobility Assessment palpable tightness throughout SCM, upper traps, levator scap , rhomboids PT-OP-H Neuro Start: 03/13/19 09:21 Freq: Status: Active Protocol: Document 03/13/19 13:11 [facility] (Rec: 03/13/19 13:41 [facility] [id number]) Sensation Evaluation Comments Summary Comments denies N/T at this time. PT-OP-J Posture/Palpation/Skin Start: 03/13/19 09:21 Freq: Status: Active Protocol: Document 03/13/19 13:11 [facility] (Rec: 03/13/19 13:41 [facility] [id number]) Posture Evaluation Position Sitting Head/C-Spine Posture C-Spine Flattened T-Spine Posture Increased Kyphosis Thorax Posture (L) Elevated,(R) Elevated Shoulder Posture (L) Rounded,(R) Rounded,(L) Forward,(R) Forward Scapula Posture (L) Protracted,(R) Protracted Arm Posture (L) Internally Rotated,(R) Internally Rotated PT-OP-K Range of Motion Start: 03/13/19 09:21 Freq: Status: Active Protocol: Document 03/13/19 13:11 [facility] (Rec: 03/13/19 13:41 [facility] [id number]) Cervical Spine Range of Motion Cervical Spine Active Flexion 48 Extension 25 Rotation Left 48 Rotation Right 45 Lateral Flexion Left 18 Lateral Flexion Right 21 ROM Limitations Pain Shoulder Goniometric Range of Motion Shoulder Right Shoulder ROM WFL No Flexion 125 Extension 15 Abduction 120 External Rotation at 45 degrees 25 Abduction Internal Rotation 55 Left Shoulder ROM WFL Yes Flexion 165 Extension 20 Abduction 150 External Rotation at 45 degrees 30 Abduction Internal Rotation 58 Shoulder ROM Limitations Shoulder ROM Limitations Soft Tissue Tightness,Muscle Weakness,Pain Elbow/Forearm Range of Motion Elbow/Forearm luisa Elbow/Forearm ROM WFL Yes PT-OP-L Special Tests Start: 03/13/19 09:21 Freq: Status: Active Protocol: Document 03/13/19 13:11 [facility] (Rec: 03/13/19 13:41 [facility] [id number]) Special Tests Cervical Spine Special Tests Traction Test Results decreased pain Comments gentle Foraminal Compression Test Results increased pain Comments gentle Shoulder Special Tests AC Joint Compression Test Results positive luisa Passive ER Rotator Cuff Test Results negative luisa IR/Horizontal ADD Impingement Test Results positive luisa Drop Arm Rotator Cuff Test Results negative luisa PT-OP-M Strength Start: 03/13/19 09:21 Freq: Status: Active Protocol: Document 03/13/19 13:11 [facility] (Rec: 03/13/19 13:41 [facility] [id number]) Cervical Spine Strength Cervical Spine Manual Muscle Testing Testing Position Sitting Flexion (C1-2) 3+ Fair+ Extension 3+ Fair+ Rotation Left 3+ Fair+ Rotation Right 3+ Fair+ Lateral Flexion Left (C3) 3+ Fair+ Lateral Flexion Right (C3) 3+ Fair+ Shoulder Strength Shoulder Manual Muscle Testing Right Flexion 3+ Fair+ Extension 4- Good- Abduction (C5) 3+ Fair+ External Rotation 3+ Fair+ Internal Rotation 4- Good- Left Flexion 3+ Fair+ Extension 4- Good- Abduction (C5) 3+ Fair+ External Rotation 3+ Fair+ Internal Rotation 4- Good- PT-OP-Q Treatments Start: 03/13/19 09:21 Freq: Status: Active Protocol: Document 08/28/19 08:08 [facility] (Rec: 08/28/19 09:31 [facility] [id number]) Cardio Equipment Recumbent Stepper (Sci-Fit) Duration (Minutes) 5 Resistance 2.5 Seat Position 9 Therapeutic Exercises Sitting Exercises manual pec stretch Reps/Minutes 2x 30 Standing Exercises 2 Standing Exercise Name row, shoulder ext, ER PT-OP-R Modalities Start: 03/13/19 09:21 Freq: Status: Active Protocol: Document 08/28/19 08:08 [facility] (Rec: 08/28/19 09:31 [facility] [id number]) Electric Stimulation Electric Stimulation Interferential Current (IFC) Body Location luisa mid thoracic spine, luisa [place] Duration (Minutes) 15 Target/Sweep Sweep Patient Position Supine Combined With Heat/Cold Hot Pack Comments MH to c/s as well Head of mat elevated Ultrasound Therapy Treatment mid thoracic paraspinals Treatment Duration (minutes) 10 Patient Position Sitting Duty Cycle 100% Intensity Setting (w/cm2) 1.5 PT-OP-T Assessment and Plan Start: 03/13/19 09:21 Freq: Status: Active Protocol: Document 08/28/19 08:08 [facility] (Rec: 08/28/19 09:31 [facility] [id number]) Physical Therapy Assessment Goals Three Impairment Pain Material Analyst Goal (LTG) Pain decreased by 50% 08/26/19: no progress, hasn't been seen in PT since 06/24/19 due to PT injury. LTG Duration 11/25/19 Two Impairment activity tolerance Short Term Goal (STG) Patient able to do 50% of her usual activities with minimal to no increase in pain STG Duration 10/08/19 Mcc Goal (LTG) Patient able to resume her usual activity level with minimal to no increase in pain LTG Duration 11/25/19 One Impairment ROM and strength Short Term Goal (STG) Patient able to tolerate HEP of gentle ROM, strengthening, and postural correction ex with minimal to no increase in pain STG Duration 10/08/19 Material Analyst Goal (LTG) Patient able to tolerate progression of ther ex and return to cardiac rehab LTG Duration 11/25/19 Assessment Summary Assessment Patien demonstrated good tolerance for increase in exercise today. Reported decrease in pain after treatment. Physical Therapy Plan Frequency and Duration Frequency of Treatment 2x/wk Duration of Treatment 12 wks Plan of Care Start Date 08/26/19 Plan of Care End Date 11/25/19 Therapeutic Interventions Therapeutic Interventions Home Exercise Program,Manual Therapy,Patient/Caregiver Education,Self-Care/Home Management,Taping,Therapeutic Activities,Therapeutic Exercises Modalities Electric Stimulation,Hot Packs ,Infrared Therapy, Iontophoresis,Ultrasound Next Visit Focus/Plan Next Note Type Treatment Note Next Visit Plan Progress ther ex as tolerated, manual therapy and modalities as needed for pain.
--- NOTE | 2019-09-02 11:12 | PT.OTN ---
Current Diagnoses Pain in right shoulder (09/02/19) Cervicalgia (09/02/19) Low back pain (09/02/19) Pain in thoracic spine (09/02/19) Physical Therapy Treatment Note PT-OP-A Visit Information Start: 03/13/19 09:21 Freq: Status: Active Protocol: Document 09/02/19 11:04 [facility] (Rec: 09/02/19 11:12 [facility] [id number]) Out-Patient Physical Therapy Visit Information Visit Information Visit Type Treatment Note Visit Start Time 09:00 Visit Stop Time 09:56 Total Visit Minutes 56 Visit Number 10 Number of DIRECTORY COMPILER Visits 0 Evaluation Information Evaluation Date 03/13/19 Precautions Precautions Her past medical history is notable for atrial fibrillation and coronary disease. She has had prior stents placed. She has had a prior CVA. She has had a history of thyroid nodule. She had a biopsy done that was nondiagnostic. She also has a history of a prior melanoma and diagnosis of monoclonal gammopathy. Patient reports since last seen in PT had a tooth abscess with bone infection necessitating 3 months of PT, and was diagnosed with anemia recently for which she will soon received iron infusions. PT-OP-B Current Condition Start: 03/13/19 09:21 Freq: Status: Active Protocol: Document 03/13/19 13:11 [facility] (Rec: 03/13/19 13:41 [facility] [id number]) Current Condition History of Current Condition Onset Date 1+ yr Current Complaints pain c/s, thoracic spine, luisa shoulders. History of Current Condition Patient reports persistent, worsening, function-limiting pain luisa cervical, thoracic, and shoulders, most severe at bra line. Pain severely limits her activity tolerance and ability to sleep. Gradual onset, no traumatic injury. States her activity level is very limited. Prior Treatments and Tests MRI thoracic spine 11/28/18 showed marked facet arthrosis with mild neural foraminal stenosis bilateral T2-3 through T4-5 and right T10-11, otherwise mild/moderate diffuse thoracic facet joint arthrosis, paracentral protrusions causing trace spinal cord flattening T6-T7 through T8-9, moderate edematous (type I) discogenic endplate marrow degeneration T7-8 through T9-T10, partly included multilevel cervical and upper lumbar spinal stenosis MRI cervical spine 01/10/19 showed uncovertebral and facet joint arthrosis causing mod/ marked bilateral neural foraminal stenosis C3-C4, C5- C6, and C6-7. Mild/moderate central stenosis at C3-C4 through C6-C7 due to shallow central protrusion C4-C5, disc /osteophyte complexes at the other levals, and ligamenta flava hypertrophy at C3-C4. Resulting spinal cord flattening, greatest at C3-C4, mild neural foraminal stenosis at bilateral C4-C5 and left C7-T1. Future Testing and Treatments Planned Possible referral to pain management physician if PT not helpful. Treatment Goals Patient/Caregiver Goals Decrease pain and improve her activity tolerance and quality of life. Prior Functional Status Baseline Function- ADL's Independent Baseline Function- Mobility Independent Baseline Function- Gait Independent Baseline Function- Recreation/Hobbies no restrictions Current Functional Impairments (Reported) Functional Limitations- ADL's painful Functional Limitations- Mobility/Gait painful Functional Limitations- Recreation/ painful and extremely limited Hobbies Functional Limitations- Other unable to lay supine due to pain, can only tolerate laying on her right side PT-OP-C Subjective Start: 03/13/19 09:21 Freq: Status: Active Protocol: Document 09/02/19 11:04 [facility] (Rec: 09/02/19 11:12 [facility] [id number]) OP-PT Subjective Patient Comments Patient Comments Patient reports pain decreased after last session but over past few days has been moderate to severe. Considering asking her doctor for muscle relaxant. States she has been doing a lot for [employer], can't fill out more than 1-2 [employer] cards without neck pain becoming severe. PT-OP-F Manual Assessment Start: 03/13/19 09:21 Freq: Status: Active Protocol: Document 03/13/19 13:11 [facility] (Rec: 03/13/19 13:41 [facility] [id number]) Manual Assessments Soft Tissue Assessment Soft Tissue Mobility Assessment palpable tightness throughout SCM, upper traps, levator scap , rhomboids PT-OP-H Neuro Start: 03/13/19 09:21 Freq: Status: Active Protocol: Document 03/13/19 13:11 [facility] (Rec: 03/13/19 13:41 [facility] [id number]) Sensation Evaluation Comments Summary Comments denies N/T at this time. PT-OP-J Posture/Palpation/Skin Start: 03/13/19 09:21 Freq: Status: Active Protocol: Document 03/13/19 13:11 [facility] (Rec: 03/13/19 13:41 [facility] [id number]) Posture Evaluation Position Sitting Head/C-Spine Posture C-Spine Flattened T-Spine Posture Increased Kyphosis Thorax Posture (L) Elevated,(R) Elevated Shoulder Posture (L) Rounded,(R) Rounded,(L) Forward,(R) Forward Scapula Posture (L) Protracted,(R) Protracted Arm Posture (L) Internally Rotated,(R) Internally Rotated PT-OP-K Range of Motion Start: 03/13/19 09:21 Freq: Status: Active Protocol: Document 03/13/19 13:11 [facility] (Rec: 03/13/19 13:41 [facility] [id number]) Cervical Spine Range of Motion Cervical Spine Active Flexion 48 Extension 25 Rotation Left 48 Rotation Right 45 Lateral Flexion Left 18 Lateral Flexion Right 21 ROM Limitations Pain Shoulder Goniometric Range of Motion Shoulder Right Shoulder ROM WFL No Flexion 125 Extension 15 Abduction 120 External Rotation at 45 degrees 25 Abduction Internal Rotation 55 Left Shoulder ROM WFL Yes Flexion 165 Extension 20 Abduction 150 External Rotation at 45 degrees 30 Abduction Internal Rotation 58 Shoulder ROM Limitations Shoulder ROM Limitations Soft Tissue Tightness,Muscle Weakness,Pain Elbow/Forearm Range of Motion Elbow/Forearm luisa Elbow/Forearm ROM WFL Yes PT-OP-L Special Tests Start: 03/13/19 09:21 Freq: Status: Active Protocol: Document 03/13/19 13:11 [facility] (Rec: 03/13/19 13:41 [facility] [id number]) Special Tests Cervical Spine Special Tests Traction Test Results decreased pain Comments gentle Foraminal Compression Test Results increased pain Comments gentle Shoulder Special Tests AC Joint Compression Test Results positive luisa Passive ER Rotator Cuff Test Results negative luisa IR/Horizontal ADD Impingement Test Results positive luisa Drop Arm Rotator Cuff Test Results negative luisa PT-OP-M Strength Start: 03/13/19 09:21 Freq: Status: Active Protocol: Document 03/13/19 13:11 [facility] (Rec: 03/13/19 13:41 [facility] [id number]) Cervical Spine Strength Cervical Spine Manual Muscle Testing Testing Position Sitting Flexion (C1-2) 3+ Fair+ Extension 3+ Fair+ Rotation Left 3+ Fair+ Rotation Right 3+ Fair+ Lateral Flexion Left (C3) 3+ Fair+ Lateral Flexion Right (C3) 3+ Fair+ Shoulder Strength Shoulder Manual Muscle Testing Right Flexion 3+ Fair+ Extension 4- Good- Abduction (C5) 3+ Fair+ External Rotation 3+ Fair+ Internal Rotation 4- Good- Left Flexion 3+ Fair+ Extension 4- Good- Abduction (C5) 3+ Fair+ External Rotation 3+ Fair+ Internal Rotation 4- Good- PT-OP-Q Treatments Start: 03/13/19 09:21 Freq: Status: Active Protocol: Document 09/02/19 11:04 [facility] (Rec: 09/02/19 11:12 [facility] [id number]) Cardio Equipment Recumbent Stepper (Sci-Fit) Duration (Minutes) 15 Resistance 2.5 Seat Position 9 Therapeutic Exercises Sitting Exercises trunk rotation Reps/Minutes 5 x 3 trunk flex stretch Reps/Minutes 20 x 1 manual pec stretch Reps/Minutes 2x 30 Standing Exercises 2 Standing Exercise Name row, shoulder ext Reps/Minutes 10x Manual Therapy Treatment Soft Tissue Mobilization 2 Body Location luisa UT, bilateral c/s, upper/ mid thoracic Mobilization Type Myofascial Release,Rolling, Strumming Body Position Sitting PT-OP-R Modalities Start: 03/13/19 09:21 Freq: Status: Active Protocol: Document 09/02/19 11:04 [facility] (Rec: 09/02/19 11:12 [facility] [id number]) Electric Stimulation Electric Stimulation Interferential Current (IFC) Body Location luisa mid thoracic spine, luisa [place] Duration (Minutes) 15 Target/Sweep Sweep Patient Position Supine Combined With Heat/Cold Hot Pack Comments MH to c/s as well Head of mat elevated Ultrasound Therapy Treatment mid thoracic paraspinals Treatment Duration (minutes) 10 Patient Position Sitting Duty Cycle 100% Intensity Setting (w/cm2) 1.3 Comments plus c/s PT-OP-T Assessment and Plan Start: 03/13/19 09:21 Freq: Status: Active Protocol: Document 09/02/19 11:04 [facility] (Rec: 09/02/19 11:12 [facility] [id number]) Physical Therapy Assessment Goals Three Impairment Pain Inspecting Machine Adjuster Goal (LTG) Pain decreased by 50% 08/26/19: no progress, hasn't been seen in PT since 06/24/19 due to PT injury. LTG Duration 11/25/19 Two Impairment activity tolerance Short Term Goal (STG) Patient able to do 50% of her usual activities with minimal to no increase in pain STG Duration 10/08/19 Inspecting Machine Adjuster Goal (LTG) Patient able to resume her usual activity level with minimal to no increase in pain LTG Duration 11/25/19 One Impairment ROM and strength Short Term Goal (STG) Patient able to tolerate HEP of gentle ROM, strengthening, and postural correction ex with minimal to no increase in pain STG Duration 10/08/19 Inspecting Machine Adjuster Goal (LTG) Patient able to tolerate progression of ther ex and return to cardiac rehab LTG Duration 11/25/19 Assessment Summary Assessment Patient high pain level over last few days. Patient education during manual treatment and ultrasound with further discussion of need for frequent change in positions and attention to postural alignment with all activities. Instructed patient to consider TENS unit for home use. Physical Therapy Plan Frequency and Duration Frequency of Treatment 2x/wk Duration of Treatment 12 wks Plan of Care Start Date 08/26/19 Plan of Care End Date 11/25/19 Therapeutic Interventions Therapeutic Interventions Home Exercise Program,Manual Therapy,Patient/Caregiver Education,Self-Care/Home Management,Taping,Therapeutic Activities,Therapeutic Exercises Modalities Electric Stimulation,Hot Packs ,Infrared Therapy, Iontophoresis,Ultrasound Hold Physical Therapy Reason For Hold until patient recovers from gut infection, then resume PT. Anticipate 3 wks. 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 May benefit from further PT after that is completed, but will discharge from PT at this time. Next Visit Focus/Plan Next Note Type Treatment Note Next Visit Plan Progress ther ex as tolerated, manual therapy and modalities as needed for pain. Patient to discuss muscle relaxants with physician, and consider TENS for home use.
--- NOTE | 2019-09-04 16:39 | PT.OTN ---
Current Diagnoses Pain in right shoulder (09/04/19) Cervicalgia (09/04/19) Low back pain (09/04/19) Pain in thoracic spine (09/04/19) Physical Therapy Treatment Note PT-OP-A Visit Information Start: 03/13/19 09:21 Freq: Status: Active Protocol: Document 09/04/19 09:46 [facility] (Rec: 09/04/19 10:32 [facility] [id number]) Out-Patient Physical Therapy Visit Information Visit Information Visit Type Treatment Note Visit Start Time 09:00 Visit Stop Time 09:57 Total Visit Minutes 57 Visit Number 08/13 Number of MANAGER COMMUNICATION Visits 0 Evaluation Information Evaluation Date 03/13/19 Precautions Precautions Her past medical history is notable for atrial fibrillation and coronary disease. She has had prior stents placed. She has had a prior CVA. She has had a history of thyroid nodule. She had a biopsy done that was nondiagnostic. She also has a history of a prior melanoma and diagnosis of monoclonal gammopathy. Patient reports since last seen in PT had a tooth abscess with bone infection necessitating 3 months of PT, and was diagnosed with anemia recently for which she will soon received iron infusions. PT-OP-B Current Condition Start: 03/13/19 09:21 Freq: Status: Active Protocol: Document 03/13/19 13:11 SAK (Rec: 03/13/19 13:41 [facility] [id number]) Current Condition History of Current Condition Onset Date 1+ yr Current Complaints pain c/s, thoracic spine, luisa shoulders. History of Current Condition Patient reports persistent, worsening, function-limiting pain luisa cervical, thoracic, and shoulders, most severe at bra line. Pain severely limits her activity tolerance and ability to sleep. Gradual onset, no traumatic injury. States her activity level is very limited. Prior Treatments and Tests MRI thoracic spine 11/28/18 showed marked facet arthrosis with mild neural foraminal stenosis bilateral T2-3 through T4-5 and right T10-11, otherwise mild/moderate diffuse thoracic facet joint arthrosis, paracentral protrusions causing trace spinal cord flattening T6-T7 through T8-9, moderate edematous (type I) discogenic endplate marrow degeneration T7-8 through T9-T10, partly included multilevel cervical and upper lumbar spinal stenosis MRI cervical spine 01/10/19 showed uncovertebral and facet joint arthrosis causing mod/ marked bilateral neural foraminal stenosis C3-C4, C5- C6, and C6-7. Mild/moderate central stenosis at C3-C4 through C6-C7 due to shallow central protrusion C4-C5, disc /osteophyte complexes at the other levals, and ligamenta flava hypertrophy at C3-C4. Resulting spinal cord flattening, greatest at C3-C4, mild neural foraminal stenosis at bilateral C4-C5 and left C7-T1. Future Testing and Treatments Planned Possible referral to pain management physician if PT not helpful. Treatment Goals Patient/Caregiver Goals Decrease pain and improve her activity tolerance and quality of life. Prior Functional Status Baseline Function- ADL's Independent Baseline Function- Mobility Independent Baseline Function- Gait Independent Baseline Function- Recreation/Hobbies no restrictions Current Functional Impairments (Reported) Functional Limitations- ADL's painful Functional Limitations- Mobility/Gait painful Functional Limitations- Recreation/ painful and extremely limited Hobbies Functional Limitations- Other unable to lay supine due to pain, can only tolerate laying on her right side PT-OP-C Subjective Start: 03/13/19 09:21 Freq: Status: Active Protocol: Document 09/04/19 09:46 [facility] (Rec: 09/04/19 10:32 [facility] [id number]) OP-PT Subjective Patient Comments Patient Comments Better mid back pain, neck pain persists at high level today. Requests we focus mostly on neck pain (patient indicating upper thoracic and neck regions) PT-OP-F Manual Assessment Start: 03/13/19 09:21 Freq: Status: Active Protocol: Document 03/13/19 13:11 [facility]AK (Rec: 03/13/19 13:41 [facility] [id number]) Manual Assessments Soft Tissue Assessment Soft Tissue Mobility Assessment palpable tightness throughout SCM, upper traps, levator scap , rhomboids PT-OP-H Neuro Start: 03/13/19 09:21 Freq: Status: Active Protocol: Document 03/13/19 13:11 [facility]AK (Rec: 03/13/19 13:41 [facility] [id number]) Sensation Evaluation Comments Summary Comments denies N/T at this time. PT-OP-J Posture/Palpation/Skin Start: 03/13/19 09:21 Freq: Status: Active Protocol: Document 03/13/19 13:11 [facility] (Rec: 03/13/19 13:41 [facility] [id number]) Posture Evaluation Position Sitting Head/C-Spine Posture C-Spine Flattened T-Spine Posture Increased Kyphosis Thorax Posture (L) Elevated,(R) Elevated Shoulder Posture (L) Rounded,(R) Rounded,(L) Forward,(R) Forward Scapula Posture (L) Protracted,(R) Protracted Arm Posture (L) Internally Rotated,(R) Internally Rotated PT-OP-K Range of Motion Start: 03/13/19 09:21 Freq: Status: Active Protocol: Document 03/13/19 13:11 [facility] (Rec: 03/13/19 13:41 [facility] [id number]) Cervical Spine Range of Motion Cervical Spine Active Flexion 48 Extension 25 Rotation Left 48 Rotation Right 45 Lateral Flexion Left 18 Lateral Flexion Right 21 ROM Limitations Pain Shoulder Goniometric Range of Motion Shoulder Right Shoulder ROM WFL No Flexion 125 Extension 15 Abduction 120 External Rotation at 45 degrees 25 Abduction Internal Rotation 55 Left Shoulder ROM WFL Yes Flexion 165 Extension 20 Abduction 150 External Rotation at 45 degrees 30 Abduction Internal Rotation 58 Shoulder ROM Limitations Shoulder ROM Limitations Soft Tissue Tightness,Muscle Weakness,Pain Elbow/Forearm Range of Motion Elbow/Forearm luisa Elbow/Forearm ROM WFL Yes PT-OP-L Special Tests Start: 03/13/19 09:21 Freq: Status: Active Protocol: Document 03/13/19 13:11 [facility] (Rec: 03/13/19 13:41 [facility] [id number]) Special Tests Cervical Spine Special Tests Traction Test Results decreased pain Comments gentle Foraminal Compression Test Results increased pain Comments gentle Shoulder Special Tests AC Joint Compression Test Results positive luisa Passive ER Rotator Cuff Test Results negative luisa IR/Horizontal ADD Impingement Test Results positive luisa Drop Arm Rotator Cuff Test Results negative luisa PT-OP-M Strength Start: 03/13/19 09:21 Freq: Status: Active Protocol: Document 03/13/19 13:11 [facility] (Rec: 03/13/19 13:41 [facility] [id number]) Cervical Spine Strength Cervical Spine Manual Muscle Testing Testing Position Sitting Flexion (C1-2) 3+ Fair+ Extension 3+ Fair+ Rotation Left 3+ Fair+ Rotation Right 3+ Fair+ Lateral Flexion Left (C3) 3+ Fair+ Lateral Flexion Right (C3) 3+ Fair+ Shoulder Strength Shoulder Manual Muscle Testing Right Flexion 3+ Fair+ Extension 4- Good- Abduction (C5) 3+ Fair+ External Rotation 3+ Fair+ Internal Rotation 4- Good- Left Flexion 3+ Fair+ Extension 4- Good- Abduction (C5) 3+ Fair+ External Rotation 3+ Fair+ Internal Rotation 4- Good- PT-OP-Q Treatments Start: 03/13/19 09:21 Freq: Status: Active Protocol: Document 09/04/19 16:38 [facility] (Rec: 09/04/19 16:39 [facility] [id number]) Cardio Equipment Recumbent Stepper (Sci-Fit) Duration (Minutes) 15 Resistance 2.5 Seat Position 9 Therapeutic Exercises Sitting Exercises trunk rotation Reps/Minutes 5 x 3 trunk flex stretch Reps/Minutes 20 x 1 manual pec stretch Reps/Minutes 2x 30 Standing Exercises 2 Standing Exercise Name row, shoulder ext Reps/Minutes 10x Manual Therapy Treatment Soft Tissue Mobilization 2 Body Location luisa UT, bilateral c/s, upper thoracic Mobilization Type Myofascial Release,Rolling, Strumming,Sustained Pressure, Trigger Point Release Intensity/Depth Moderate Body Position Sitting PT-OP-R Modalities Start: 03/13/19 09:21 Freq: Status: Active Protocol: Document 09/04/19 09:46 [facility] (Rec: 09/04/19 10:32 [facility] [id number]) Electric Stimulation Electric Stimulation Interferential Current (IFC) Body Location luisa UT and c/s Duration (Minutes) 15 Target/Sweep Sweep Patient Position Sitting Combined With Heat/Cold Hot Pack Comments MH to c/s as well Head of mat elevated Ultrasound Therapy Treatment cervical spine Treatment Duration (minutes) 8 Patient Position Sitting Mode Setting Continuous Duty Cycle 100% Intensity Setting (w/cm2) 1.3 Comments c/s and UT luisa PT-OP-T Assessment and Plan Start: 03/13/19 09:21 Freq: Status: Active Protocol: Document 09/04/19 09:46 [facility] (Rec: 09/04/19 10:32 [facility] [id number]) Physical Therapy Assessment Goals Three Impairment Pain Concrete 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 LTG Duration 11/25/19 Two Impairment activity tolerance Short Term Goal (STG) Patient able to do 50% of her usual activities with minimal to no increase in pain STG Duration 10/08/19 Skilled Nursing Goal (LTG) Patient able to resume her usual activity level with minimal to no increase in pain LTG Duration 11/25/19 One Impairment ROM and strength Short Term Goal (STG) Patient able to tolerate HEP of gentle ROM, strengthening, and postural correction ex with minimal to no increase in pain STG Duration 10/08/19 Skilled Nursing Goal (LTG) Patient able to tolerate progression of ther ex and return to cardiac rehab LTG Duration 11/25/19 Assessment Summary Assessment Palpable trigger points bilateral upper traps right greater than left with patient reporting worst symptoms on right. Decreased size of trigger point after PT with reported decrease in pain. Continue to cue patient for neutral postural alignment and improved habits of positioning and movement. Increased exercise tolerance today. Physical Therapy Plan Frequency and Duration Frequency of Treatment 2x/wk Duration of Treatment 12 wks Plan of Care Start Date 08/26/19 Plan of Care End Date 11/25/19 Therapeutic Interventions Therapeutic Interventions Home Exercise Program,Manual Therapy,Patient/Caregiver Education,Self-Care/Home Management,Taping,Therapeutic Activities,Therapeutic Exercises Modalities Electric Stimulation,Hot Packs ,Infrared Therapy, Iontophoresis,Ultrasound Next Visit Focus/Plan Next Note Type Treatment Note Next Visit Plan Progress ther ex as tolerated, manual therapy and modalities as needed for pain. Patient to discuss muscle relaxants with physician, and consider TENS for home use.
--- NOTE | 2019-09-09 15:16 | PT.OTN ---
Current Diagnoses Pain in right shoulder (09/09/19) Cervicalgia (09/09/19) Low back pain (09/09/19) Pain in thoracic spine (09/09/19) Physical Therapy Treatment Note PT-OP-A Visit Information Start: 03/13/19 09:21 Freq: Status: Active Protocol: Document 09/09/19 09:48 [facility] (Rec: 09/09/19 10:30 [facility] [id number]) Out-Patient Physical Therapy Visit Information Visit Information Visit Type Treatment Note Visit Start Time 09:45 Visit Stop Time 10:45 Total Visit Minutes 60 Visit Number 09/12 Number of FITNESS FLOOR ATTENDANT Visits 0 Precautions Precautions Her past medical history is notable for atrial fibrillation and coronary disease. She has had prior stents placed. She has had a prior CVA. She has had a history of thyroid nodule. She had a biopsy done that was nondiagnostic. She also has a history of a prior melanoma and diagnosis of monoclonal gammopathy. Patient reports since last seen in PT had a tooth abscess with bone infection necessitating 3 months of PT, and was diagnosed with anemia recently for which she will soon received iron infusions. PT-OP-B Current Condition Start: 03/13/19 09:21 Freq: Status: Active Protocol: Document 03/13/19 13:11 [facility] (Rec: 03/13/19 13:41 [facility] [id number]) Current Condition History of Current Condition Onset Date 1+ yr Current Complaints pain c/s, thoracic spine, luisa shoulders. History of Current Condition Patient reports persistent, worsening, function-limiting pain luisa cervical, thoracic, and shoulders, most severe at bra line. Pain severely limits her activity tolerance and ability to sleep. Gradual onset, no traumatic injury. States her activity level is very limited. Prior Treatments and Tests MRI thoracic spine 11/28/18 showed marked facet arthrosis with mild neural foraminal stenosis bilateral T2-3 through T4-5 and right T10-11, otherwise mild/moderate diffuse thoracic facet joint arthrosis, paracentral protrusions causing trace spinal cord flattening T6-T7 through T8-9, moderate edematous (type I) discogenic endplate marrow degeneration T7-8 through T9-T10, partly included multilevel cervical and upper lumbar spinal stenosis MRI cervical spine 01/10/19 showed uncovertebral and facet joint arthrosis causing mod/ marked bilateral neural foraminal stenosis C3-C4, C5- C6, and C6-7. Mild/moderate central stenosis at C3-C4 through C6-C7 due to shallow central protrusion C4-C5, disc /osteophyte complexes at the other levals, and ligamenta flava hypertrophy at C3-C4. Resulting spinal cord flattening, greatest at C3-C4, mild neural foraminal stenosis at bilateral C4-C5 and left C7-T1. Future Testing and Treatments Planned Possible referral to pain management physician if PT not helpful. Treatment Goals Patient/Caregiver Goals Decrease pain and improve her activity tolerance and quality of life. Prior Functional Status Baseline Function- ADL's Independent Baseline Function- Mobility Independent Baseline Function- Gait Independent Baseline Function- Recreation/Hobbies no restrictions Current Functional Impairments (Reported) Functional Limitations- ADL's painful Functional Limitations- Mobility/Gait painful Functional Limitations- Recreation/ painful and extremely limited Hobbies Functional Limitations- Other unable to lay supine due to pain, can only tolerate laying on her right side PT-OP-C Subjective Start: 03/13/19 09:21 Freq: Status: Active Protocol: Document 09/09/19 09:48 [facility] (Rec: 09/09/19 10:30 [facility] [id number]) OP-PT Subjective Patient Comments Patient Comments Reports worsening LBP over past 1 1/2 days, unknown cause . States pain usually goes down, especially with sleeping but hasn't. Neck and mid thoracic region also painful but not to extent of LBP. PT-OP-F Manual Assessment Start: 03/13/19 09:21 Freq: Status: Active Protocol: Document 03/13/19 13:11 [facility] (Rec: 03/13/19 13:41 [facility] [id number]) Manual Assessments Soft Tissue Assessment Soft Tissue Mobility Assessment palpable tightness throughout SCM, upper traps, levator scap , rhomboids PT-OP-H Neuro Start: 03/13/19 09:21 Freq: Status: Active Protocol: Document 03/13/19 13:11 [facility] (Rec: 03/13/19 13:41 [facility] [id number]) Sensation Evaluation Comments Summary Comments denies N/T at this time. PT-OP-J Posture/Palpation/Skin Start: 03/13/19 09:21 Freq: Status: Active Protocol: Document 03/13/19 13:11 [facility] (Rec: 03/13/19 13:41 [facility] [id number]) Posture Evaluation Position Sitting Head/C-Spine Posture C-Spine Flattened T-Spine Posture Increased Kyphosis Thorax Posture (L) Elevated,(R) Elevated Shoulder Posture (L) Rounded,(R) Rounded,(L) Forward,(R) Forward Scapula Posture (L) Protracted,(R) Protracted Arm Posture (L) Internally Rotated,(R) Internally Rotated PT-OP-K Range of Motion Start: 03/13/19 09:21 Freq: Status: Active Protocol: Document 03/13/19 13:11 [facility] (Rec: 03/13/19 13:41 [facility] [id number]) Cervical Spine Range of Motion Cervical Spine Active Flexion 48 Extension 25 Rotation Left 48 Rotation Right 45 Lateral Flexion Left 18 Lateral Flexion Right 21 ROM Limitations Pain Shoulder Goniometric Range of Motion Shoulder Right Shoulder ROM WFL No Flexion 125 Extension 15 Abduction 120 External Rotation at 45 degrees 25 Abduction Internal Rotation 55 Left Shoulder ROM WFL Yes Flexion 165 Extension 20 Abduction 150 External Rotation at 45 degrees 30 Abduction Internal Rotation 58 Shoulder ROM Limitations Shoulder ROM Limitations Soft Tissue Tightness,Muscle Weakness,Pain Elbow/Forearm Range of Motion Elbow/Forearm luisa Elbow/Forearm ROM WFL Yes PT-OP-L Special Tests Start: 03/13/19 09:21 Freq: Status: Active Protocol: Document 03/13/19 13:11 [facility] (Rec: 03/13/19 13:41 [facility] [id number]) Special Tests Cervical Spine Special Tests Traction Test Results decreased pain Comments gentle Foraminal Compression Test Results increased pain Comments gentle Shoulder Special Tests AC Joint Compression Test Results positive luisa Passive ER Rotator Cuff Test Results negative luisa IR/Horizontal ADD Impingement Test Results positive luisa Drop Arm Rotator Cuff Test Results negative luisa PT-OP-M Strength Start: 03/13/19 09:21 Freq: Status: Active Protocol: Document 03/13/19 13:11 [facility] (Rec: 03/13/19 13:41 [facility] [id number]) Cervical Spine Strength Cervical Spine Manual Muscle Testing Testing Position Sitting Flexion (C1-2) 3+ Fair+ Extension 3+ Fair+ Rotation Left 3+ Fair+ Rotation Right 3+ Fair+ Lateral Flexion Left (C3) 3+ Fair+ Lateral Flexion Right (C3) 3+ Fair+ Shoulder Strength Shoulder Manual Muscle Testing Right Flexion 3+ Fair+ Extension 4- Good- Abduction (C5) 3+ Fair+ External Rotation 3+ Fair+ Internal Rotation 4- Good- Left Flexion 3+ Fair+ Extension 4- Good- Abduction (C5) 3+ Fair+ External Rotation 3+ Fair+ Internal Rotation 4- Good- PT-OP-Q Treatments Start: 03/13/19 09:21 Freq: Status: Active Protocol: Document 09/09/19 09:48 [facility] (Rec: 09/09/19 10:30 [facility] [id number]) Cardio Equipment Recumbent Stepper (Sci-Fit) Duration (Minutes) 12 Resistance 2.5 Seat Position 9 Therapeutic Exercises Sitting Exercises chin tuck Reps/Minutes 5x5 Comments verbal and manual cues trunk flex stretch Reps/Minutes 20 x 3 manual pec stretch Reps/Minutes 2x 30 Manual Therapy Treatment Soft Tissue Mobilization 2 Body Location luisa UT, bilateral c/s, upper thoracic, mid thoracic Mobilization Type Myofascial Release,Rolling, Strumming,Sustained Pressure, Trigger Point Release Intensity/Depth Moderate Body Position Sitting PT-OP-R Modalities Start: 03/13/19 09:21 Freq: Status: Active Protocol: Document 09/09/19 09:48 [facility] (Rec: 09/09/19 10:30 [facility] [id number]) Electric Stimulation Electric Stimulation Interferential Current (IFC) Body Location luisa c/s and mid thoracic spine Duration (Minutes) 15 Target/Sweep Sweep Patient Position Supine Combined With Heat/Cold Hot Pack Comments IFES and MH to LBP in sitting during manual treatment to c/s and thoracic spine When supine LE's in 90/90 position PT-OP-T Assessment and Plan Start: 03/13/19 09:21 Freq: Status: Active Protocol: Document 09/09/19 09:48 [facility] (Rec: 09/09/19 10:30 [facility] [id number]) Physical Therapy Assessment Goals Three Impairment Pain Prison Goal (LTG) Pain decreased by 50% 08/26/19: no progress, hasn't been seen in PT since 06/24/19 due to PT injury. LTG Duration 11/25/19 Two Impairment activity tolerance Short Term Goal (STG) Patient able to do 50% of her usual activities with minimal to no increase in pain STG Duration 10/08/19 Prison Goal (LTG) Patient able to resume her usual activity level with minimal to no increase in pain LTG Duration 11/25/19 One Impairment ROM and strength Short Term Goal (STG) Patient able to tolerate HEP of gentle ROM, strengthening, and postural correction ex with minimal to no increase in pain STG Duration 10/08/19 Prison Goal (LTG) Patient able to tolerate progression of ther ex and return to cardiac rehab LTG Duration 11/25/19 Assessment Summary Assessment Cause of increased LBP uncertain. Trial 90/90 position today during some of IFES to offload spine and relax musculature. Minimal decrease in pain after session today. Patient to see Dr. Vick 09/11/19. Physical Therapy Plan Frequency and Duration Frequency of Treatment 2x/wk Duration of Treatment 12 wks Plan of Care Start Date 08/26/19 Plan of Care End Date 11/25/19 Therapeutic Interventions Therapeutic Interventions Home Exercise Program,Manual Therapy,Patient/Caregiver Education,Self-Care/Home Management,Taping,Therapeutic Activities,Therapeutic Exercises Modalities Electric Stimulation,Hot Packs ,Infrared Therapy, Iontophoresis,Ultrasound Next Visit Focus/Plan Next Note Type Treatment Note Next Visit Plan Discuss TENS further with patient. ASsess response to 90/90 position. Continue ther ex as tolerated.
--- NOTE | 2019-09-11 08:52 | PT.OTN ---
Current Diagnoses Pain in right shoulder (09/11/19) Cervicalgia (09/11/19) Low back pain (09/11/19) Pain in thoracic spine (09/11/19) Physical Therapy Treatment Note PT-OP-A Visit Information Start: 03/13/19 09:21 Freq: Status: Active Protocol: Document 09/11/19 08:11 [facility] (Rec: 09/11/19 08:52 [facility] [id number]) Out-Patient Physical Therapy Visit Information Visit Information Visit Type Treatment Note Visit Start Time 08:00 Visit Stop Time 08:45 Total Visit Minutes 45 Visit Number Number of PRODUCT SAFETY SPECIALIST Visits 0 Precautions Precautions Her past medical history is notable for atrial fibrillation and coronary disease. She has had prior stents placed. She has had a prior CVA. She has had a history of thyroid nodule. She had a biopsy done that was nondiagnostic. She also has a history of a prior melanoma and diagnosis of monoclonal gammopathy. Patient reports since last seen in PT had a tooth abscess with bone infection necessitating 3 months of PT, and was diagnosed with anemia recently for which she will soon received iron infusions. PT-OP-B Current Condition Start: 03/13/19 09:21 Freq: Status: Active Protocol: Document 03/13/19 13:11 [facility] (Rec: 03/13/19 13:41 [facility] [id number]) Current Condition History of Current Condition Onset Date 1+ yr Current Complaints pain c/s, thoracic spine, luisa shoulders. History of Current Condition Patient reports persistent, worsening, function-limiting pain luisa cervical, thoracic, and shoulders, most severe at bra line. Pain severely limits her activity tolerance and ability to sleep. Gradual onset, no traumatic injury. States her activity level is very limited. Prior Treatments and Tests MRI thoracic spine 11/28/18 showed marked facet arthrosis with mild neural foraminal stenosis bilateral T2-3 through T4-5 and right T10-11, otherwise mild/moderate diffuse thoracic facet joint arthrosis, paracentral protrusions causing trace spinal cord flattening T6-T7 through T8-9, moderate edematous (type I) discogenic endplate marrow degeneration T7-8 through T9-T10, partly included multilevel cervical and upper lumbar spinal stenosis MRI cervical spine 01/10/19 showed uncovertebral and facet joint arthrosis causing mod/ marked bilateral neural foraminal stenosis C3-C4, C5- C6, and C6-7. Mild/moderate central stenosis at C3-C4 through C6-C7 due to shallow central protrusion C4-C5, disc /osteophyte complexes at the other levals, and ligamenta flava hypertrophy at C3-C4. Resulting spinal cord flattening, greatest at C3-C4, mild neural foraminal stenosis at bilateral C4-C5 and left C7-T1. Future Testing and Treatments Planned Possible referral to pain management physician if PT not helpful. Treatment Goals Patient/Caregiver Goals Decrease pain and improve her activity tolerance and quality of life. Prior Functional Status Baseline Function- ADL's Independent Baseline Function- Mobility Independent Baseline Function- Gait Independent Baseline Function- Recreation/Hobbies no restrictions Current Functional Impairments (Reported) Functional Limitations- ADL's painful Functional Limitations- Mobility/Gait painful Functional Limitations- Recreation/ painful and extremely limited Hobbies Functional Limitations- Other unable to lay supine due to pain, can only tolerate laying on her right side PT-OP-C Subjective Start: 03/13/19 09:21 Freq: Status: Active Protocol: Document 09/11/19 08:11 [facility] (Rec: 09/11/19 08:52 [facility] [id number]) OP-PT Subjective Patient Comments Patient Comments Reports LBP 30-40% improved after last session; I don't know what you did but it's significantly better. PT-OP-F Manual Assessment Start: 03/13/19 09:21 Freq: Status: Active Protocol: Document 03/13/19 13:11 [facility] (Rec: 03/13/19 13:41 [facility] [id number]) Manual Assessments Soft Tissue Assessment Soft Tissue Mobility Assessment palpable tightness throughout SCM, upper traps, levator scap , rhomboids PT-OP-H Neuro Start: 03/13/19 09:21 Freq: Status: Active Protocol: Document 03/13/19 13:11 [facility] (Rec: 03/13/19 13:41 [facility] [id number]) Sensation Evaluation Comments Summary Comments denies N/T at this time. PT-OP-J Posture/Palpation/Skin Start: 03/13/19 09:21 Freq: Status: Active Protocol: Document 03/13/19 13:11 [facility] (Rec: 03/13/19 13:41 [facility] [id number]) Posture Evaluation Position Sitting Head/C-Spine Posture C-Spine Flattened T-Spine Posture Increased Kyphosis Thorax Posture (L) Elevated,(R) Elevated Shoulder Posture (L) Rounded,(R) Rounded,(L) Forward,(R) Forward Scapula Posture (L) Protracted,(R) Protracted Arm Posture (L) Internally Rotated,(R) Internally Rotated PT-OP-K Range of Motion Start: 03/13/19 09:21 Freq: Status: Active Protocol: Document 03/13/19 13:11 [facility] (Rec: 03/13/19 13:41 [facility] [id number]) Cervical Spine Range of Motion Cervical Spine Active Flexion 48 Extension 25 Rotation Left 48 Rotation Right 45 Lateral Flexion Left 18 Lateral Flexion Right 21 ROM Limitations Pain Shoulder Goniometric Range of Motion Shoulder Right Shoulder ROM WFL No Flexion 125 Extension 15 Abduction 120 External Rotation at 45 degrees 25 Abduction Internal Rotation 55 Left Shoulder ROM WFL Yes Flexion 165 Extension 20 Abduction 150 External Rotation at 45 degrees 30 Abduction Internal Rotation 58 Shoulder ROM Limitations Shoulder ROM Limitations Soft Tissue Tightness,Muscle Weakness,Pain Elbow/Forearm Range of Motion Elbow/Forearm luisa Elbow/Forearm ROM WFL Yes PT-OP-L Special Tests Start: 03/13/19 09:21 Freq: Status: Active Protocol: Document 03/13/19 13:11 [facility] (Rec: 03/13/19 13:41 [facility] [id number]) Special Tests Cervical Spine Special Tests Traction Test Results decreased pain Comments gentle Foraminal Compression Test Results increased pain Comments gentle Shoulder Special Tests AC Joint Compression Test Results positive luisa Passive ER Rotator Cuff Test Results negative luisa IR/Horizontal ADD Impingement Test Results positive luisa Drop Arm Rotator Cuff Test Results negative luisa PT-OP-M Strength Start: 03/13/19 09:21 Freq: Status: Active Protocol: Document 03/13/19 13:11 [facility] (Rec: 03/13/19 13:41 [facility] [id number]) Cervical Spine Strength Cervical Spine Manual Muscle Testing Testing Position Sitting Flexion (C1-2) 3+ Fair+ Extension 3+ Fair+ Rotation Left 3+ Fair+ Rotation Right 3+ Fair+ Lateral Flexion Left (C3) 3+ Fair+ Lateral Flexion Right (C3) 3+ Fair+ Shoulder Strength Shoulder Manual Muscle Testing Right Flexion 3+ Fair+ Extension 4- Good- Abduction (C5) 3+ Fair+ External Rotation 3+ Fair+ Internal Rotation 4- Good- Left Flexion 3+ Fair+ Extension 4- Good- Abduction (C5) 3+ Fair+ External Rotation 3+ Fair+ Internal Rotation 4- Good- PT-OP-Q Treatments Start: 03/13/19 09:21 Freq: Status: Active Protocol: Document 09/11/19 08:11 [facility] (Rec: 09/11/19 08:52 [facility] [id number]) Cardio Equipment Recumbent Stepper (Sci-Fit) Duration (Minutes) 10 Resistance 2.5 Seat Position 9 Therapeutic Exercises Sitting Exercises chin tuck Reps/Minutes 5x5 Comments verbal and manual cues manual pec stretch Reps/Minutes 2x 30 Manual Therapy Treatment Soft Tissue Mobilization 2 Body Location luisa UT, bilateral c/s, upper thoracic, mid thoracic Mobilization Type Myofascial Release,Rolling, Strumming,Sustained Pressure, Trigger Point Release Intensity/Depth Moderate Body Position Sitting 1 Body Location luisa lumbar and mid thoracic spine Mobilization Type Myofascial Release,Rolling Intensity/Depth Moderate Body Position Sitting PT-OP-R Modalities Start: 03/13/19 09:21 Freq: Status: Active Protocol: Document 09/11/19 08:11 [facility] (Rec: 09/11/19 08:52 [facility] [id number]) Electric Stimulation Electric Stimulation Interferential Current (IFC) Body Location luisa c/s and mid thoracic spine Duration (Minutes) 15 Target/Sweep Sweep Patient Position Supine Combined With Heat/Cold Hot Pack Comments IFES and MH to LBP in sitting during manual treatment to c/s and thoracic spine No supine due to patient time constraints today PT-OP-T Assessment and Plan Start: 03/13/19 09:21 Freq: Status: Active Protocol: Document 09/11/19 08:11 [facility] (Rec: 09/11/19 08:52 [facility] [id number]) Physical Therapy Assessment Goals Three Impairment Pain [facility] Goal (LTG) Pain decreased by 50% 08/26/19: no progress, hasn't been seen in PT since 06/24/19 due to PT injury. LTG Duration 11/25/19 Two Impairment activity tolerance Short Term Goal (STG) Patient able to do 50% of her usual activities with minimal to no increase in pain STG Duration 10/08/19 Stock Holder Goal (LTG) Patient able to resume her usual activity level with minimal to no increase in pain LTG Duration 11/25/19 One Impairment ROM and strength Short Term Goal (STG) Patient able to tolerate HEP of gentle ROM, strengthening, and postural correction ex with minimal to no increase in pain STG Duration 10/08/19 Stock Holder Goal (LTG) Patient able to tolerate progression of ther ex and return to cardiac rehab LTG Duration 11/25/19 Assessment Summary Assessment Godd response to last treatment with 30-40% decrease in symptoms, less pain with transitional movements. Physical Therapy Plan Frequency and Duration Frequency of Treatment 2x/wk Duration of Treatment 12 wks Plan of Care Start Date 08/26/19 Plan of Care End Date 11/25/19 Therapeutic Interventions Therapeutic Interventions Home Exercise Program,Manual Therapy,Patient/Caregiver Education,Self-Care/Home Management,Taping,Therapeutic Activities,Therapeutic Exercises Modalities Electric Stimulation,Hot Packs ,Infrared Therapy, Iontophoresis,Ultrasound Next Visit Focus/Plan Next Note Type Treatment Note Next Visit Plan Patient to research TENS units . Increase ther ex component of treatment as tolerated. Patient seeing Dr. Vick today to follow up regarding spinal pain as well as cardiac and BP issues.
--- NOTE | 2019-09-15 14:02 | PT.OTN ---
Current Diagnoses Pain in right shoulder (09/15/19) Cervicalgia (09/15/19) Low back pain (09/15/19) Pain in thoracic spine (09/15/19) Physical Therapy Treatment Note PT-OP-A Visit Information Start: 03/13/19 09:21 Freq: Status: Active Protocol: Document 09/11/19 08:11 [facility] (Rec: 09/11/19 08:52 [facility] [id number]) Out-Patient Physical Therapy Visit Information Visit Information Visit Type Treatment Note Visit Start Time 08:00 Visit Stop Time 08:45 Total Visit Minutes 45 Visit Number Number of PRODUCT MANAGER MEDICAL DEVICE Visits 0 Precautions Precautions Her past medical history is notable for atrial fibrillation and coronary disease. She has had prior stents placed. She has had a prior CVA. She has had a history of thyroid nodule. She had a biopsy done that was nondiagnostic. She also has a history of a prior melanoma and diagnosis of monoclonal gammopathy. Patient reports since last seen in PT had a tooth abscess with bone infection necessitating 3 months of PT, and was diagnosed with anemia recently for which she will soon received iron infusions. PT-OP-B Current Condition Start: 03/13/19 09:21 Freq: Status: Active Protocol: Document 03/13/19 13:11 [facility] (Rec: 03/13/19 13:41 [facility] [id number]) Current Condition History of Current Condition Onset Date 1+ yr Current Complaints pain c/s, thoracic spine, luisa shoulders. History of Current Condition Patient reports persistent, worsening, function-limiting pain luisa cervical, thoracic, and shoulders, most severe at bra line. Pain severely limits her activity tolerance and ability to sleep. Gradual onset, no traumatic injury. States her activity level is very limited. Prior Treatments and Tests MRI thoracic spine 11/28/18 showed marked facet arthrosis with mild neural foraminal stenosis bilateral T2-3 through T4-5 and right T10-11, otherwise mild/moderate diffuse thoracic facet joint arthrosis, paracentral protrusions causing trace spinal cord flattening T6-T7 through T8-9, moderate edematous (type I) discogenic endplate marrow degeneration T7-8 through T9-T10, partly included multilevel cervical and upper lumbar spinal stenosis MRI cervical spine 01/10/19 showed uncovertebral and facet joint arthrosis causing mod/ marked bilateral neural foraminal stenosis C3-C4, C5- C6, and C6-7. Mild/moderate central stenosis at C3-C4 through C6-C7 due to shallow central protrusion C4-C5, disc /osteophyte complexes at the other levals, and ligamenta flava hypertrophy at C3-C4. Resulting spinal cord flattening, greatest at C3-C4, mild neural foraminal stenosis at bilateral C4-C5 and left C7-T1. Future Testing and Treatments Planned Possible referral to pain management physician if PT not helpful. Treatment Goals Patient/Caregiver Goals Decrease pain and improve her activity tolerance and quality of life. Prior Functional Status Baseline Function- ADL's Independent Baseline Function- Mobility Independent Baseline Function- Gait Independent Baseline Function- Recreation/Hobbies no restrictions Current Functional Impairments (Reported) Functional Limitations- ADL's painful Functional Limitations- Mobility/Gait painful Functional Limitations- Recreation/ painful and extremely limited Hobbies Functional Limitations- Other unable to lay supine due to pain, can only tolerate laying on her right side PT-OP-C Subjective Start: 03/13/19 09:21 Freq: Status: Active Protocol: Document 09/11/19 08:11 [facility] (Rec: 09/11/19 08:52 [facility] [id number]) OP-PT Subjective Patient Comments Patient Comments Reports LBP 30-40% improved after last session; I don't know what you did but it's significantly better. PT-OP-F Manual Assessment Start: 03/13/19 09:21 Freq: Status: Active Protocol: Document 03/13/19 13:11 [facility] (Rec: 03/13/19 13:41 [facility] [id number]) Manual Assessments Soft Tissue Assessment Soft Tissue Mobility Assessment palpable tightness throughout SCM, upper traps, levator scap , rhomboids PT-OP-H Neuro Start: 03/13/19 09:21 Freq: Status: Active Protocol: Document 03/13/19 13:11 [facility] (Rec: 03/13/19 13:41 [facility] [id number]) Sensation Evaluation Comments Summary Comments denies N/T at this time. PT-OP-J Posture/Palpation/Skin Start: 03/13/19 09:21 Freq: Status: Active Protocol: Document 03/13/19 13:11 [facility] (Rec: 03/13/19 13:41 [facility] [id number]) Posture Evaluation Position Sitting Head/C-Spine Posture C-Spine Flattened T-Spine Posture Increased Kyphosis Thorax Posture (L) Elevated,(R) Elevated Shoulder Posture (L) Rounded,(R) Rounded,(L) Forward,(R) Forward Scapula Posture (L) Protracted,(R) Protracted Arm Posture (L) Internally Rotated,(R) Internally Rotated PT-OP-K Range of Motion Start: 03/13/19 09:21 Freq: Status: Active Protocol: Document 03/13/19 13:11 [facility] (Rec: 03/13/19 13:41 [facility] [id number]) Cervical Spine Range of Motion Cervical Spine Active Flexion 48 Extension 25 Rotation Left 48 Rotation Right 45 Lateral Flexion Left 18 Lateral Flexion Right 21 ROM Limitations Pain Shoulder Goniometric Range of Motion Shoulder Right Shoulder ROM WFL No Flexion 125 Extension 15 Abduction 120 External Rotation at 45 degrees 25 Abduction Internal Rotation 55 Left Shoulder ROM WFL Yes Flexion 165 Extension 20 Abduction 150 External Rotation at 45 degrees 30 Abduction Internal Rotation 58 Shoulder ROM Limitations Shoulder ROM Limitations Soft Tissue Tightness,Muscle Weakness,Pain Elbow/Forearm Range of Motion Elbow/Forearm luisa Elbow/Forearm ROM WFL Yes PT-OP-L Special Tests Start: 03/13/19 09:21 Freq: Status: Active Protocol: Document 03/13/19 13:11 [facility] (Rec: 03/13/19 13:41 [facility] [id number]) Special Tests Cervical Spine Special Tests Traction Test Results decreased pain Comments gentle Foraminal Compression Test Results increased pain Comments gentle Shoulder Special Tests AC Joint Compression Test Results positive luisa Passive ER Rotator Cuff Test Results negative luisa IR/Horizontal ADD Impingement Test Results positive luisa Drop Arm Rotator Cuff Test Results negative luisa PT-OP-M Strength Start: 03/13/19 09:21 Freq: Status: Active Protocol: Document 03/13/19 13:11 [facility] (Rec: 03/13/19 13:41 [facility] [id number]) Cervical Spine Strength Cervical Spine Manual Muscle Testing Testing Position Sitting Flexion (C1-2) 3+ Fair+ Extension 3+ Fair+ Rotation Left 3+ Fair+ Rotation Right 3+ Fair+ Lateral Flexion Left (C3) 3+ Fair+ Lateral Flexion Right (C3) 3+ Fair+ Shoulder Strength Shoulder Manual Muscle Testing Right Flexion 3+ Fair+ Extension 4- Good- Abduction (C5) 3+ Fair+ External Rotation 3+ Fair+ Internal Rotation 4- Good- Left Flexion 3+ Fair+ Extension 4- Good- Abduction (C5) 3+ Fair+ External Rotation 3+ Fair+ Internal Rotation 4- Good- PT-OP-Q Treatments Start: 03/13/19 09:21 Freq: Status: Active Protocol: Document 09/15/19 09:01 [facility] (Rec: 09/15/19 09:12 [facility] [id number]) Cardio Equipment Recumbent Stepper (Sci-Fit) Duration (Minutes) 15 Resistance 2.5 Seat Position 9 Therapeutic Exercises Sitting Exercises chin tuck Reps/Minutes 5x5 Comments verbal and manual cues trunk rotation Reps/Minutes 5 x 3 seated thoracic flex and ext Equipment Used ball at thoracic spine manual pec stretch Reps/Minutes 3x 30 Standing Exercises 2 Standing Exercise Name row, shoulder ext Equipment Used L1 TB Reps/Minutes 10x Manual Therapy Treatment Soft Tissue Mobilization 2 Body Location luisa UT, bilateral c/s, upper thoracic, mid thoracic Mobilization Type Myofascial Release,Rolling, Strumming,Sustained Pressure, Trigger Point Release Intensity/Depth Moderate Body Position Sitting 1 Body Location luisa lumbar and mid thoracic spine Mobilization Type Myofascial Release,Rolling Intensity/Depth Moderate Body Position Sitting Self-Care/Home Management Treatment Education Patient Education Posture Other Education possible benefits of posture brace; shown pictures online. Patient to research further. PT-OP-R Modalities Start: 03/13/19 09:21 Freq: Status: Active Protocol: Document 09/15/19 09:01 [facility] (Rec: 09/15/19 09:12 [facility] [id number]) Electric Stimulation Electric Stimulation Interferential Current (IFC) Body Location luisa c/s and mid thoracic spine Duration (Minutes) 15 Target/Sweep Sweep Patient Position Supine Combined With Heat/Cold Hot Pack Comments IFES and MH to LBP in sitting during manual treatment to c/s and thoracic spine No supine due to patient time constraints today PT-OP-T Assessment and Plan Start: 03/13/19 09:21 Freq: Status: Active Protocol: Document 09/15/19 09:01 [facility] (Rec: 09/15/19 09:12 [facility] [id number]) Physical Therapy Assessment Goals Three Impairment Pain [place] Goal (LTG) Pain decreased by 50% 08/26/19: no progress, hasn't been seen in PT since 06/24/19 due to PT injury. LTG Duration 11/25/19 Two Impairment activity tolerance Short Term Goal (STG) Patient able to do 50% of her usual activities with minimal to no increase in pain STG Duration 10/08/19 Long-Term Goal (LTG) Patient able to resume her usual activity level with minimal to no increase in pain LTG Duration 11/25/19 One Impairment ROM and strength Short Term Goal (STG) Patient able to tolerate HEP of gentle ROM, strengthening, and postural correction ex with minimal to no increase in pain STG Duration 10/08/19 Long-Term Goal (LTG) Patient able to tolerate progression of ther ex and return to cardiac rehab LTG Duration 11/25/19 Assessment Summary Assessment LBP still decreased and reports decrease in neck and thoracic pain after treatment. Gradually tolerating increased exercise. Physical Therapy Plan Frequency and Duration Frequency of Treatment 2x/wk Duration of Treatment 12 wks Plan of Care Start Date 08/26/19 Plan of Care End Date 11/25/19 Therapeutic Interventions Therapeutic Interventions Home Exercise Program,Manual Therapy,Patient/Caregiver Education,Self-Care/Home Management,Taping,Therapeutic Activities,Therapeutic Exercises Modalities Electric Stimulation,Hot Packs ,Infrared Therapy, Iontophoresis,Ultrasound Next Visit Focus/Plan Next Note Type Treatment Note Next Visit Plan Patient to research posture brace. Dr. Vick encouraged continued PT. Some medication changes due to kidney response to BP medications.
--- NOTE | 2019-09-22 16:57 | PT.OTN ---
Current Diagnoses Pain in right shoulder (09/22/19) Cervicalgia (09/22/19) Low back pain (09/22/19) Pain in thoracic spine (09/22/19) Physical Therapy Treatment Note PT-OP-A Visit Information Start: 03/13/19 09:21 Freq: Status: Active Protocol: Document 09/22/19 09:01 [facility] (Rec: 09/22/19 09:30 [facility] [id number]) Out-Patient Physical Therapy Visit Information Visit Information Visit Type Treatment Note Visit Start Time 09:00 Visit Stop Time 10:00 Total Visit Minutes 60 Visit Number Number of ADVERTISING SALES CONSULTANT Visits 0 PT-OP-B Current Condition Start: 03/13/19 09:21 Freq: Status: Active Protocol: Document 03/13/19 13:11 [facility] (Rec: 03/13/19 13:41 [facility] [id number]) Current Condition History of Current Condition Onset Date 1+ yr Current Complaints pain c/s, thoracic spine, luisa shoulders. History of Current Condition Patient reports persistent, worsening, function-limiting pain luisa cervical, thoracic, and shoulders, most severe at bra line. Pain severely limits her activity tolerance and ability to sleep. Gradual onset, no traumatic injury. States her activity level is very limited. Prior Treatments and Tests MRI thoracic spine 11/28/18 showed marked facet arthrosis with mild neural foraminal stenosis bilateral T2-3 through T4-5 and right T10-11, otherwise mild/moderate diffuse thoracic facet joint arthrosis, paracentral protrusions causing trace spinal cord flattening T6-T7 through T8-9, moderate edematous (type I) discogenic endplate marrow degeneration T7-8 through T9-T10, partly included multilevel cervical and upper lumbar spinal stenosis MRI cervical spine 01/10/19 showed uncovertebral and facet joint arthrosis causing mod/ marked bilateral neural foraminal stenosis C3-C4, C5- C6, and C6-7. Mild/moderate central stenosis at C3-C4 through C6-C7 due to shallow central protrusion C4-C5, disc /osteophyte complexes at the other levals, and ligamenta flava hypertrophy at C3-C4. Resulting spinal cord flattening, greatest at C3-C4, mild neural foraminal stenosis at bilateral C4-C5 and left C7-T1. Future Testing and Treatments Planned Possible referral to pain management physician if PT not helpful. Treatment Goals Patient/Caregiver Goals Decrease pain and improve her activity tolerance and quality of life. Prior Functional Status Baseline Function- ADL's Independent Baseline Function- Mobility Independent Baseline Function- Gait Independent Baseline Function- Recreation/Hobbies no restrictions Current Functional Impairments (Reported) Functional Limitations- ADL's painful Functional Limitations- Mobility/Gait painful Functional Limitations- Recreation/ painful and extremely limited Hobbies Functional Limitations- Other unable to lay supine due to pain, can only tolerate laying on her right side PT-OP-C Subjective Start: 03/13/19 09:21 Freq: Status: Active Protocol: Document 09/22/19 09:01 [facility] (Rec: 09/22/19 16:57 [facility] [id number]) OP-PT Subjective Patient Comments Patient Comments Reports feels tired and weak. Hasn't been doing much HEP because she doesn't feel well. Will be seeing Dr. Vick again soon to follow-up on BP and other medical issues. States LBP bad today. PT-OP-F Manual Assessment Start: 03/13/19 09:21 Freq: Status: Active Protocol: Document 03/13/19 13:11 [facility] (Rec: 03/13/19 13:41 [facility] [id number]) Manual Assessments Soft Tissue Assessment Soft Tissue Mobility Assessment palpable tightness throughout SCM, upper traps, levator scap , rhomboids PT-OP-H Neuro Start: 03/13/19 09:21 Freq: Status: Active Protocol: Document 03/13/19 13:11 [facility] (Rec: 03/13/19 13:41 [facility] [id number]) Sensation Evaluation Comments Summary Comments denies N/T at this time. PT-OP-J Posture/Palpation/Skin Start: 03/13/19 09:21 Freq: Status: Active Protocol: Document 03/13/19 13:11 [facility] (Rec: 03/13/19 13:41 [facility] [id number]) Posture Evaluation Position Sitting Head/C-Spine Posture C-Spine Flattened T-Spine Posture Increased Kyphosis Thorax Posture (L) Elevated,(R) Elevated Shoulder Posture (L) Rounded,(R) Rounded,(L) Forward,(R) Forward Scapula Posture (L) Protracted,(R) Protracted Arm Posture (L) Internally Rotated,(R) Internally Rotated PT-OP-K Range of Motion Start: 06/20/19 09:21 Freq: Status: Active Protocol: Document 03/13/19 13:11 [facility] (Rec: 03/13/19 13:41 [facility] [id number]) Cervical Spine Range of Motion Cervical Spine Active Flexion 48 Extension 25 Rotation Left 48 Rotation Right 45 Lateral Flexion Left 18 Lateral Flexion Right 21 ROM Limitations Pain Shoulder Goniometric Range of Motion Shoulder Right Shoulder ROM WFL No Flexion 125 Extension 15 Abduction 120 External Rotation at 45 degrees 25 Abduction Internal Rotation 55 Left Shoulder ROM WFL Yes Flexion 165 Extension 20 Abduction 150 External Rotation at 45 degrees 30 Abduction Internal Rotation 58 Shoulder ROM Limitations Shoulder ROM Limitations Soft Tissue Tightness,Muscle Weakness,Pain Elbow/Forearm Range of Motion Elbow/Forearm luisa Elbow/Forearm ROM WFL Yes PT-OP-L Special Tests Start: 03/13/19 09:21 Freq: Status: Active Protocol: Document 03/13/19 13:11 [facility] (Rec: 03/13/19 13:41 [facility] [id number]) Special Tests Cervical Spine Special Tests Traction Test Results decreased pain Comments gentle Foraminal Compression Test Results increased pain Comments gentle Shoulder Special Tests AC Joint Compression Test Results positive luisa Passive ER Rotator Cuff Test Results negative luisa IR/Horizontal ADD Impingement Test Results positive luisa Drop Arm Rotator Cuff Test Results negative luisa PT-OP-M Strength Start: 03/13/19 09:21 Freq: Status: Active Protocol: Document 03/13/19 13:11 [facility] (Rec: 03/13/19 13:41 [facility] [id number]) Cervical Spine Strength Cervical Spine Manual Muscle Testing Testing Position Sitting Flexion (C1-2) 3+ Fair+ Extension 3+ Fair+ Rotation Left 3+ Fair+ Rotation Right 3+ Fair+ Lateral Flexion Left (C3) 3+ Fair+ Lateral Flexion Right (C3) 3+ Fair+ Shoulder Strength Shoulder Manual Muscle Testing Right Flexion 3+ Fair+ Extension 4- Good- Abduction (C5) 3+ Fair+ External Rotation 3+ Fair+ Internal Rotation 4- Good- Left Flexion 3+ Fair+ Extension 4- Good- Abduction (C5) 3+ Fair+ External Rotation 3+ Fair+ Internal Rotation 4- Good- PT-OP-Q Treatments Start: 03/13/19 09:21 Freq: Status: Active Protocol: Document 09/22/19 09:01 [facility] (Rec: 09/22/19 09:30 [facility] [id number]) Cardio Equipment Recumbent Stepper (Sci-Fit) Duration (Minutes) 15 Resistance 2.5 Seat Position 9 Therapeutic Exercises Sitting Exercises chin tuck Reps/Minutes 5x5 Comments verbal and manual cues trunk rotation Reps/Minutes 5 x 3 trunk flex stretch Reps/Minutes 20 x 3 seated thoracic flex and ext Equipment Used ball at thoracic spine shoulder rolls Reps/Minutes 10x manual pec stretch Reps/Minutes 3x 30 4 Sitting Exercise Name cervical retraction Reps/Minutes 3x 1 Sitting Exercise Name pulleys shoulder flex, scaption Equipment Used ball at thoracic spine Standing Exercises shoulder ER Equipment Used L1 TB Reps/Minutes 10x 2 Standing Exercise Name row, shoulder ext Equipment Used L2 TB Reps/Minutes 10x Manual Therapy Treatment Soft Tissue Mobilization 2 Body Location luisa UT, bilateral c/s, upper thoracic, mid thoracic Mobilization Type Myofascial Release,Rolling, Strumming,Sustained Pressure, Trigger Point Release Intensity/Depth Moderate Body Position Sitting 1 Body Location luisa lumbar and mid thoracic spine Mobilization Type Myofascial Release,Rolling Intensity/Depth Moderate Body Position Sitting PT-OP-R Modalities Start: 03/13/19 09:21 Freq: Status: Active Protocol: Document 09/22/19 09:01 [facility] (Rec: 09/22/19 09:30 [facility] [id number]) Electric Stimulation Electric Stimulation Interferential Current (IFC) Body Location luisa l/s and mid thoracic spine Duration (Minutes) 15 Target/Sweep Sweep Patient Position Supine Combined With Heat/Cold Hot Pack Comments IFES and MH to LBP in sitting during manual treatment to c/s and thoracic spine PT-OP-T Assessment and Plan Start: 03/13/19 09:21 Freq: Status: Active Protocol: Document 09/22/19 09:01 [facility] (Rec: 09/22/19 09:30 [facility] [id number]) Physical Therapy Assessment Goals Three Impairment Pain Fci Goal (LTG) Pain decreased by 50% 08/26/19: no progress, hasn't been seen in PT since 06/24/19 due to PT injury. LTG Duration 11/25/19 Two Impairment activity tolerance Short Term Goal (STG) Patient able to do 50% of her usual activities with minimal to no increase in pain STG Duration 10/08/19 Fci Goal (LTG) Patient able to resume her usual activity level with minimal to no increase in pain LTG Duration 11/25/19 One Impairment ROM and strength Short Term Goal (STG) Patient able to tolerate HEP of gentle ROM, strengthening, and postural correction ex with minimal to no increase in pain STG Duration 10/08/19 Clinical Laboratory Assistant Goal (LTG) Patient able to tolerate progression of ther ex and return to cardiac rehab LTG Duration 11/25/19 Assessment Summary Assessment Due to medical issues with patient feeling fatigue and weakness with poor activity tolerance her compliance with HEP has been low. She reports she will try to get back to doing theraband exercises for scapular stabilization and postural correction. Has pain throughout her spine, variable intensity in each area. Physical Therapy Plan Frequency and Duration Frequency of Treatment 2x/wk Duration of Treatment 12 wks Plan of Care Start Date 08/26/19 Plan of Care End Date 11/25/19 Therapeutic Interventions Therapeutic Interventions Home Exercise Program,Manual Therapy,Patient/Caregiver Education,Self-Care/Home Management,Taping,Therapeutic Activities,Therapeutic Exercises Modalities Electric Stimulation,Hot Packs ,Infrared Therapy, Iontophoresis,Ultrasound Next Visit Focus/Plan Next Note Type Treatment Note Next Visit Plan Continue to progress with ther ex as tolerated. Encourage HEP. Manual therapy and modalities as needed for pain.
--- NOTE | 2019-09-25 09:17 | PT.OTN ---
Current Diagnoses Pain in right shoulder (09/25/19) Cervicalgia (09/25/19) Low back pain (09/25/19) Pain in thoracic spine (09/25/19) Physical Therapy Treatment Note PT-OP-A Visit Information Start: 03/13/19 09:21 Freq: Status: Active Protocol: Document 09/25/19 08:10 [facility] (Rec: 09/25/19 09:00 [facility] [id number]) Out-Patient Physical Therapy Visit Information Visit Information Visit Type Treatment Note Visit Start Time 09:00 Visit Stop Time 10:00 Total Visit Minutes 60 Visit Number Number of CUSTOMER ADVISOR SPECIALIST Visits 0 PT-OP-B Current Condition Start: 03/13/19 09:21 Freq: Status: Active Protocol: Document 03/13/19 13:11 [facility] (Rec: 03/13/19 13:41 [facility] [id number]) Current Condition History of Current Condition Onset Date 1+ yr Current Complaints pain c/s, thoracic spine, luisa shoulders. History of Current Condition Patient reports persistent, worsening, function-limiting pain luisa cervical, thoracic, and shoulders, most severe at bra line. Pain severely limits her activity tolerance and ability to sleep. Gradual onset, no traumatic injury. States her activity level is very limited. Prior Treatments and Tests MRI thoracic spine 11/28/18 showed marked facet arthrosis with mild neural foraminal stenosis bilateral T2-3 through T4-5 and right T10-11, otherwise mild/moderate diffuse thoracic facet joint arthrosis, paracentral protrusions causing trace spinal cord flattening T6-T7 through T8-9, moderate edematous (type I) discogenic endplate marrow degeneration T7-8 through T9-T10, partly included multilevel cervical and upper lumbar spinal stenosis MRI cervical spine 01/10/19 showed uncovertebral and facet joint arthrosis causing mod/ marked bilateral neural foraminal stenosis C3-C4, C5- C6, and C6-7. Mild/moderate central stenosis at C3-C4 through C6-C7 due to shallow central protrusion C4-C5, disc /osteophyte complexes at the other levals, and ligamenta flava hypertrophy at C3-C4. Resulting spinal cord flattening, greatest at C3-C4, mild neural foraminal stenosis at bilateral C4-C5 and left C7-T1. Future Testing and Treatments Planned Possible referral to pain management physician if PT not helpful. Treatment Goals Patient/Caregiver Goals Decrease pain and improve her activity tolerance and quality of life. Prior Functional Status Baseline Function- ADL's Independent Baseline Function- Mobility Independent Baseline Function- Gait Independent Baseline Function- Recreation/Hobbies no restrictions Current Functional Impairments (Reported) Functional Limitations- ADL's painful Functional Limitations- Mobility/Gait painful Functional Limitations- Recreation/ painful and extremely limited Hobbies Functional Limitations- Other unable to lay supine due to pain, can only tolerate laying on her right side PT-OP-C Subjective Start: 03/13/19 09:21 Freq: Status: Active Protocol: Document 09/25/19 08:10 [facility] (Rec: 09/25/19 09:00 [facility] [id number]) OP-PT Subjective Patient Comments Patient Comments heavy pressure pain across bra line, neck pain also affecting left shoulder. Hasn 't looked at posture brace yet , will try to now that it is after the holidays. Had her sister take a picture of her seated posture for evaluation and discussion PT-OP-F Manual Assessment Start: 03/13/19 09:21 Freq: Status: Active Protocol: Document 03/13/19 13:11 [facility] (Rec: 03/13/19 13:41 [facility] [id number]) Manual Assessments Soft Tissue Assessment Soft Tissue Mobility Assessment palpable tightness throughout SCM, upper traps, levator scap , rhomboids PT-OP-H Neuro Start: 03/13/19 09:21 Freq: Status: Active Protocol: Document 03/13/19 13:11 [facility] (Rec: 03/13/19 13:41 [facility] [id number]) Sensation Evaluation Comments Summary Comments denies N/T at this time. PT-OP-J Posture/Palpation/Skin Start: 03/13/19 09:21 Freq: Status: Active Protocol: Document 03/13/19 13:11 [facility] (Rec: 03/13/19 13:41 [facility] [id number]) Posture Evaluation Position Sitting Head/C-Spine Posture C-Spine Flattened T-Spine Posture Increased Kyphosis Thorax Posture (L) Elevated,(R) Elevated Shoulder Posture (L) Rounded,(R) Rounded,(L) Forward,(R) Forward Scapula Posture (L) Protracted,(R) Protracted Arm Posture (L) Internally Rotated,(R) Internally Rotated PT-OP-K Range of Motion Start: 03/13/19 09:21 Freq: Status: Active Protocol: Document 03/13/19 13:11 [facility] (Rec: 03/13/19 13:41 [facility] [id number]) Cervical Spine Range of Motion Cervical Spine Active Flexion 48 Extension 25 Rotation Left 48 Rotation Right 45 Lateral Flexion Left 18 Lateral Flexion Right 21 ROM Limitations Pain Shoulder Goniometric Range of Motion Shoulder Right Shoulder ROM WFL No Flexion 125 Extension 15 Abduction 120 External Rotation at 45 degrees 25 Abduction Internal Rotation 55 Left Shoulder ROM WFL Yes Flexion 165 Extension 20 Abduction 150 External Rotation at 45 degrees 30 Abduction Internal Rotation 58 Shoulder ROM Limitations Shoulder ROM Limitations Soft Tissue Tightness,Muscle Weakness,Pain Elbow/Forearm Range of Motion Elbow/Forearm luisa Elbow/Forearm ROM WFL Yes PT-OP-L Special Tests Start: 03/13/19 09:21 Freq: Status: Active Protocol: Document 03/13/19 13:11 [facility] (Rec: 03/13/19 13:41 [facility] [id number]) Special Tests Cervical Spine Special Tests Traction Test Results decreased pain Comments gentle Foraminal Compression Test Results increased pain Comments gentle Shoulder Special Tests AC Joint Compression Test Results positive luisa Passive ER Rotator Cuff Test Results negative luisa IR/Horizontal ADD Impingement Test Results positive luisa Drop Arm Rotator Cuff Test Results negative luisa PT-OP-M Strength Start: 03/13/19 09:21 Freq: Status: Active Protocol: Document 03/13/19 13:11 [facility] (Rec: 03/13/19 13:41 [facility] [id number]) Cervical Spine Strength Cervical Spine Manual Muscle Testing Testing Position Sitting Flexion (C1-2) 3+ Fair+ Extension 3+ Fair+ Rotation Left 3+ Fair+ Rotation Right 3+ Fair+ Lateral Flexion Left (C3) 3+ Fair+ Lateral Flexion Right (C3) 3+ Fair+ Shoulder Strength Shoulder Manual Muscle Testing Right Flexion 3+ Fair+ Extension 4- Good- Abduction (C5) 3+ Fair+ External Rotation 3+ Fair+ Internal Rotation 4- Good- Left Flexion 3+ Fair+ Extension 4- Good- Abduction (C5) 3+ Fair+ External Rotation 3+ Fair+ Internal Rotation 4- Good- PT-OP-Q Treatments Start: 03/13/19 09:21 Freq: Status: Active Protocol: Document 09/25/19 08:10 [facility] (Rec: 09/25/19 09:00 [facility] [id number]) Cardio Equipment Recumbent Stepper (Sci-Fit) Duration (Minutes) 15 Resistance 2.5 Seat Position 9 Therapeutic Exercises Sitting Exercises shoulder ER Reps/Minutes 10x Comments cues for alignment and scapular stabilization chin tuck Reps/Minutes 5x5 Comments verbal and manual cues shoulder rolls Reps/Minutes 10x 1 Sitting Exercise Name pulleys shoulder flex, scaption Equipment Used ball at thoracic spine Standing Exercises shoulder ER Equipment Used L1 TB Reps/Minutes 10x 2 Standing Exercise Name row, shoulder ext Equipment Used L2 TB Reps/Minutes 10x Manual Therapy Treatment Soft Tissue Mobilization 2 Body Location luisa UT, bilateral c/s, upper thoracic, mid thoracic Mobilization Type Myofascial Release,Rolling, Strumming,Sustained Pressure, Trigger Point Release Intensity/Depth Moderate Body Position Prone Comments prone pillow for better access to thoracic spine 1 Body Location luisa lumbar and mid thoracic spine Mobilization Type Myofascial Release,Rolling Intensity/Depth Moderate Body Position Sitting PT-OP-R Modalities Start: 03/13/19 09:21 Freq: Status: Active Protocol: Document 09/25/19 08:10 [facility] (Rec: 09/25/19 09:00 [facility] [id number]) Electric Stimulation Electric Stimulation Interferential Current (IFC) Body Location luisa l/s and mid thoracic spine Duration (Minutes) 15 Target/Sweep Sweep Patient Position Supine Combined With Heat/Cold Hot Pack Comments IFES and MH to LBP in sitting during manual treatment to c/s and thoracic spine PT-OP-T Assessment and Plan Start: 03/13/19 09:21 Freq: Status: Active Protocol: Document 09/25/19 08:10 [facility] (Rec: 09/25/19 09:00 [facility] [id number]) Physical Therapy Assessment Goals Three Impairment Pain Paper And Pulp Mill Operator Goal (LTG) Pain decreased by 50% 08/26/19: no progress, hasn't been seen in PT since 06/24/19 due to PT injury. LTG Duration 11/25/19 Two Impairment activity tolerance Short Term Goal (STG) Patient able to do 50% of her usual activities with minimal to no increase in pain STG Duration 10/08/19 Paper And Pulp Mill Operator Goal (LTG) Patient able to resume her usual activity level with minimal to no increase in pain LTG Duration 11/25/19 One Impairment ROM and strength Short Term Goal (STG) Patient able to tolerate HEP of gentle ROM, strengthening, and postural correction ex with minimal to no increase in pain STG Duration 10/08/19 Paper And Pulp Mill Operator Goal (LTG) Patient able to tolerate progression of ther ex and return to cardiac rehab LTG Duration 11/25/19 Assessment Summary Assessment Patient has difficulty with compliance to postural correction. Had her borrow book: Posture, get it straight. Photo taken by sister reveals slouched posture in chair, arm rests possibly too high, not supporting entire UE. Trial prone positioning on prone pillow for better access to spine and increased muscle relaxation during manual treatment. palpable trigger points in UT and rhomboids, lumbar paraspinal muscle tightness. Physical Therapy Plan Frequency and Duration Frequency of Treatment 2x/wk Duration of Treatment 12 wks Plan of Care Start Date 08/26/19 Plan of Care End Date 11/25/19 Therapeutic Interventions Therapeutic Interventions Home Exercise Program,Manual Therapy,Patient/Caregiver Education,Self-Care/Home Management,Taping,Therapeutic Activities,Therapeutic Exercises Modalities Electric Stimulation,Hot Packs ,Infrared Therapy, Iontophoresis,Ultrasound Next Visit Focus/Plan Next Note Type Treatment Note Next Visit Plan Continue to progress with ther ex and postural correction as tolerated. Encourage HEP. Manual therapy and modalities as needed for pain. Consider positioning in sitting, leaning forward onto pillows on treatment table as prone not well tolerated. Alternately sitting semi- reclined on table. Discuss book.
--- NOTE | 2019-09-29 13:18 | PT.OTN ---
Current Diagnoses Pain in right shoulder (09/29/19) Cervicalgia (09/29/19) Low back pain (09/29/19) Pain in thoracic spine (09/29/19) Physical Therapy Treatment Note PT-OP-A Visit Information Start: 03/13/19 09:21 Freq: Status: Active Protocol: Document 09/29/19 08:13 SAK (Rec: 09/29/19 08:28 SAK [id number]) Out-Patient Physical Therapy Visit Information Visit Information Visit Type Treatment Note Visit Start Time 08:15 Visit Stop Time 09:15 Total Visit Minutes 60 Visit Number Number of HYDRAULIC JACK OPERATOR Visits 0 PT-OP-B Current Condition Start: 03/13/19 09:21 Freq: Status: Active Protocol: Document 03/13/19 13:11 SAK (Rec: 03/13/19 13:41 SAK [id number]) Current Condition History of Current Condition Onset Date 1+ yr Current Complaints pain c/s, thoracic spine, luisa shoulders. History of Current Condition Patient reports persistent, worsening, function-limiting pain luisa cervical, thoracic, and shoulders, most severe at bra line. Pain severely limits her activity tolerance and ability to sleep. Gradual onset, no traumatic injury. States her activity level is very limited. Prior Treatments and Tests MRI thoracic spine 11/28/18 showed marked facet arthrosis with mild neural foraminal stenosis bilateral T2-3 through T4-5 and right T10-11, otherwise mild/moderate diffuse thoracic facet joint arthrosis, paracentral protrusions causing trace spinal cord flattening T6-T7 through T8-9, moderate edematous (type I) discogenic endplate marrow degeneration T7-8 through T9-T10, partly included multilevel cervical and upper lumbar spinal stenosis MRI cervical spine 01/10/19 showed uncovertebral and facet joint arthrosis causing mod/ marked bilateral neural foraminal stenosis C3-C4, C5- C6, and C6-7. Mild/moderate central stenosis at C3-C4 through C6-C7 due to shallow central protrusion C4-C5, disc /osteophyte complexes at the other levals, and ligamenta flava hypertrophy at C3-C4. Resulting spinal cord flattening, greatest at C3-C4, mild neural foraminal stenosis at bilateral C4-C5 and left C7-T1. Future Testing and Treatments Planned Possible referral to pain management physician if PT not helpful. Treatment Goals Patient/Caregiver Goals Decrease pain and improve her activity tolerance and quality of life. Prior Functional Status Baseline Function- ADL's Independent Baseline Function- Mobility Independent Baseline Function- Gait Independent Baseline Function- Recreation/Hobbies no restrictions Current Functional Impairments (Reported) Functional Limitations- ADL's painful Functional Limitations- Mobility/Gait painful Functional Limitations- Recreation/ painful and extremely limited Hobbies Functional Limitations- Other unable to lay supine due to pain, can only tolerate laying on her right side PT-OP-C Subjective Start: 03/13/19 09:21 Freq: Status: Active Protocol: Document 09/29/19 08:13 [facility] (Rec: 09/29/19 08:28 [facility] [id number]) OP-PT Subjective Patient Comments Patient Comments LBP worst today, states neck, thoracic pain and back pain take turns being worst. Starting back to cardiac rehab 10/07/19. Middle of the back felt much better after last session. PT-OP-F Manual Assessment Start: 03/13/19 09:21 Freq: Status: Active Protocol: Document 03/13/19 13:11 [facility] (Rec: 03/13/19 13:41 [facility] [id number]) Manual Assessments Soft Tissue Assessment Soft Tissue Mobility Assessment palpable tightness throughout SCM, upper traps, levator scap , rhomboids PT-OP-H Neuro Start: 03/13/19 09:21 Freq: Status: Active Protocol: Document 03/13/19 13:11 [facility] (Rec: 03/13/19 13:41 [facility] [id number]) Sensation Evaluation Comments Summary Comments denies N/T at this time. PT-OP-J Posture/Palpation/Skin Start: 03/13/19 09:21 Freq: Status: Active Protocol: Document 03/13/19 13:11 [facility] (Rec: 03/13/19 13:41 [facility] [id number]) Posture Evaluation Position Sitting Head/C-Spine Posture C-Spine Flattened T-Spine Posture Increased Kyphosis Thorax Posture (L) Elevated,(R) Elevated Shoulder Posture (L) Rounded,(R) Rounded,(L) Forward,(R) Forward Scapula Posture (L) Protracted,(R) Protracted Arm Posture (L) Internally Rotated,(R) Internally Rotated PT-OP-K Range of Motion Start: 03/13/19 09:21 Freq: Status: Active Protocol: Document 03/13/19 13:11 [facility] (Rec: 03/13/19 13:41 [facility] [id number]) Cervical Spine Range of Motion Cervical Spine Active Flexion 48 Extension 25 Rotation Left 48 Rotation Right 45 Lateral Flexion Left 18 Lateral Flexion Right 21 ROM Limitations Pain Shoulder Goniometric Range of Motion Shoulder Right Shoulder ROM WFL No Flexion 125 Extension 15 Abduction 120 External Rotation at 45 degrees 25 Abduction Internal Rotation 55 Left Shoulder ROM WFL Yes Flexion 165 Extension 20 Abduction 150 External Rotation at 45 degrees 30 Abduction Internal Rotation 58 Shoulder ROM Limitations Shoulder ROM Limitations Soft Tissue Tightness,Muscle Weakness,Pain Elbow/Forearm Range of Motion Elbow/Forearm luisa Elbow/Forearm ROM WFL Yes PT-OP-L Special Tests Start: 03/13/19 09:21 Freq: Status: Active Protocol: Document 03/13/19 13:11 [facility] (Rec: 03/13/19 13:41 [facility] [id number]) Special Tests Cervical Spine Special Tests Traction Test Results decreased pain Comments gentle Foraminal Compression Test Results increased pain Comments gentle Shoulder Special Tests AC Joint Compression Test Results positive luisa Passive ER Rotator Cuff Test Results negative luisa IR/Horizontal ADD Impingement Test Results positive luisa Drop Arm Rotator Cuff Test Results negative luisa PT-OP-M Strength Start: 03/13/19 09:21 Freq: Status: Active Protocol: Document 03/13/19 13:11 [facility] (Rec: 03/13/19 13:41 [facility] [id number]) Cervical Spine Strength Cervical Spine Manual Muscle Testing Testing Position Sitting Flexion (C1-2) 3+ Fair+ Extension 3+ Fair+ Rotation Left 3+ Fair+ Rotation Right 3+ Fair+ Lateral Flexion Left (C3) 3+ Fair+ Lateral Flexion Right (C3) 3+ Fair+ Shoulder Strength Shoulder Manual Muscle Testing Right Flexion 3+ Fair+ Extension 4- Good- Abduction (C5) 3+ Fair+ External Rotation 3+ Fair+ Internal Rotation 4- Good- Left Flexion 3+ Fair+ Extension 4- Good- Abduction (C5) 3+ Fair+ External Rotation 3+ Fair+ Internal Rotation 4- Good- PT-OP-Q Treatments Start: 03/13/19 09:21 Freq: Status: Active Protocol: Document 09/29/19 08:13 [facility] (Rec: 09/29/19 08:28 SAK [id number]) Cardio Equipment Recumbent Stepper (Sci-Fit) Duration (Minutes) 15 Resistance 2.5 Seat Position 9 Therapeutic Exercises Sitting Exercises shoulder ER Reps/Minutes 10x Comments cues for alignment and scapular stabilization chin tuck Reps/Minutes 5x5 Comments verbal and manual cues 1 Sitting Exercise Name pulleys shoulder flex, scaption Equipment Used ball at thoracic spine Standing Exercises 2 Standing Exercise Name row, shoulder ext Equipment Used L2 TB Reps/Minutes 10x Manual Therapy Treatment Soft Tissue Mobilization 2 Body Location luisa UT, bilateral c/s, upper thoracic, mid thoracic Mobilization Type Myofascial Release,Rolling, Strumming,Sustained Pressure, Trigger Point Release Intensity/Depth Moderate Body Position Prone Comments prone pillow for better access to thoracic spine 1 Body Location luisa lumbar and mid thoracic spine Mobilization Type Myofascial Release,Rolling Intensity/Depth Moderate Body Position Prone PT-OP-R Modalities Start: 03/13/19 09:21 Freq: Status: Active Protocol: Document 09/29/19 08:13 [facility] (Rec: 09/29/19 08:28 [facility] [id number]) Electric Stimulation Electric Stimulation Interferential Current (IFC) Body Location luisa l/s and mid thoracic spine Duration (Minutes) 15 Target/Sweep Sweep Patient Position Sitting Combined With Heat/Cold Hot Pack Comments IFES and MH to LBP in sitting during manual treatment to c/s and thoracic spine Ultrasound Therapy Treatment mid thoracic paraspinals Treatment Duration (minutes) 10 Patient Position Prone Duty Cycle 100% Intensity Setting (w/cm2) 1.3 Comments plus c/s PT-OP-T Assessment and Plan Start: 03/13/19 09:21 Freq: Status: Active Protocol: Document 09/29/19 08:13 [facility] (Rec: 09/29/19 08:28 [facility] [id number]) Physical Therapy Assessment Goals Three Impairment Pain Highway Patrol Officer Goal (LTG) Pain decreased by 50% 08/26/19: no progress, hasn't been seen in PT since 06/24/19 due to PT injury. LTG Duration 11/25/19 Two Impairment activity tolerance Short Term Goal (STG) Patient able to do 50% of her usual activities with minimal to no increase in pain STG Duration 10/08/19 Highway Patrol Officer Goal (LTG) Patient able to resume her usual activity level with minimal to no increase in pain LTG Duration 11/25/19 One Impairment ROM and strength Short Term Goal (STG) Patient able to tolerate HEP of gentle ROM, strengthening, and postural correction ex with minimal to no increase in pain STG Duration 10/08/19 Custodial Goal (LTG) Patient able to tolerate progression of ther ex and return to cardiac rehab LTG Duration 11/25/19 Assessment Summary Assessment Patient tolerating increased depth of manual treatment to paraspinal muscles and gentle thoracic mobilization. Increasing METS on recumbant elliptical. Physical Therapy Plan Frequency and Duration Frequency of Treatment 2x/wk Duration of Treatment 12 wks Plan of Care Start Date 08/26/19 Plan of Care End Date 11/25/19 Therapeutic Interventions Therapeutic Interventions Home Exercise Program,Manual Therapy,Patient/Caregiver Education,Self-Care/Home Management,Taping,Therapeutic Activities,Therapeutic Exercises Modalities Electric Stimulation,Hot Packs ,Infrared Therapy, Iontophoresis,Ultrasound Next Visit Focus/Plan Next Note Type Treatment Note Next Visit Plan Assess whether response to PT better with or without ultrasound. Trial treadmill for strengthening and progression of activity tolerance.
--- NOTE | 2019-10-02 15:42 | PT.OTN ---
Current Diagnoses Pain in right shoulder (10/02/19) Cervicalgia (10/02/19) Low back pain (10/02/19) Pain in thoracic spine (10/02/19) Physical Therapy Treatment Note PT-OP-A Visit Information Start: 03/13/19 09:21 Freq: Status: Active Protocol: Document 10/02/19 08:59 [facility] (Rec: 10/02/19 09:47 [facility]AK [id number]) Out-Patient Physical Therapy Visit Information Visit Information Visit Type Treatment Note Visit Start Time 09:00 Visit Stop Time 10:00 Total Visit Minutes 60 Visit Number Number of WELDING PANTOGRAPH MACHINE OPERATOR Visits 0 PT-OP-B Current Condition Start: 03/13/19 09:21 Freq: Status: Active Protocol: Document 03/13/19 13:11 [facility] (Rec: 03/13/19 13:41 SAK [id number]) Current Condition History of Current Condition Onset Date 1+ yr Current Complaints pain c/s, thoracic spine, luisa shoulders. History of Current Condition Patient reports persistent, worsening, function-limiting pain luisa cervical, thoracic, and shoulders, most severe at bra line. Pain severely limits her activity tolerance and ability to sleep. Gradual onset, no traumatic injury. States her activity level is very limited. Prior Treatments and Tests MRI thoracic spine 11/28/18 showed marked facet arthrosis with mild neural foraminal stenosis bilateral T2-3 through T4-5 and right T10-11, otherwise mild/moderate diffuse thoracic facet joint arthrosis, paracentral protrusions causing trace spinal cord flattening T6-T7 through T8-9, moderate edematous (type I) discogenic endplate marrow degeneration T7-8 through T9-T10, partly included multilevel cervical and upper lumbar spinal stenosis MRI cervical spine 01/10/19 showed uncovertebral and facet joint arthrosis causing mod/ marked bilateral neural foraminal stenosis C3-C4, C5- C6, and C6-7. Mild/moderate central stenosis at C3-C4 through C6-C7 due to shallow central protrusion C4-C5, disc /osteophyte complexes at the other levals, and ligamenta flava hypertrophy at C3-C4. Resulting spinal cord flattening, greatest at C3-C4, mild neural foraminal stenosis at bilateral C4-C5 and left C7-T1. Future Testing and Treatments Planned Possible referral to pain management physician if PT not helpful. Treatment Goals Patient/Caregiver Goals Decrease pain and improve her activity tolerance and quality of life. Prior Functional Status Baseline Function- ADL's Independent Baseline Function- Mobility Independent Baseline Function- Gait Independent Baseline Function- Recreation/Hobbies no restrictions Current Functional Impairments (Reported) Functional Limitations- ADL's painful Functional Limitations- Mobility/Gait painful Functional Limitations- Recreation/ painful and extremely limited Hobbies Functional Limitations- Other unable to lay supine due to pain, can only tolerate laying on her right side PT-OP-C Subjective Start: 03/13/19 09:21 Freq: Status: Active Protocol: Document 09/29/19 08:13 [facility] (Rec: 09/29/19 08:28 [facility] [id number]) OP-PT Subjective Patient Comments Patient Comments LBP worst today, states neck, thoracic pain and back pain take turns being worst. Starting back to cardiac rehab 10/07/19. Middle of the back felt much better after last session. PT-OP-F Manual Assessment Start: 03/13/19 09:21 Freq: Status: Active Protocol: Document 03/13/19 13:11 [facility] (Rec: 03/13/19 13:41 [facility] [id number]) Manual Assessments Soft Tissue Assessment Soft Tissue Mobility Assessment palpable tightness throughout SCM, upper traps, levator scap , rhomboids PT-OP-H Neuro Start: 03/13/19 09:21 Freq: Status: Active Protocol: Document 03/13/19 13:11 [facility] (Rec: 03/13/19 13:41 [facility] [id number]) Sensation Evaluation Comments Summary Comments denies N/T at this time. PT-OP-J Posture/Palpation/Skin Start: 03/13/19 09:21 Freq: Status: Active Protocol: Document 03/13/19 13:11 [facility] (Rec: 03/13/19 13:41 [facility] [id number]) Posture Evaluation Position Sitting Head/C-Spine Posture C-Spine Flattened T-Spine Posture Increased Kyphosis Thorax Posture (L) Elevated,(R) Elevated Shoulder Posture (L) Rounded,(R) Rounded,(L) Forward,(R) Forward Scapula Posture (L) Protracted,(R) Protracted Arm Posture (L) Internally Rotated,(R) Internally Rotated PT-OP-K Range of Motion Start: 03/13/19 09:21 Freq: Status: Active Protocol: Document 03/13/19 13:11 [facility] (Rec: 03/13/19 13:41 [facility] [id number]) Cervical Spine Range of Motion Cervical Spine Active Flexion 48 Extension 25 Rotation Left 48 Rotation Right 45 Lateral Flexion Left 18 Lateral Flexion Right 21 ROM Limitations Pain Shoulder Goniometric Range of Motion Shoulder Right Shoulder ROM WFL No Flexion 125 Extension 15 Abduction 120 External Rotation at 45 degrees 25 Abduction Internal Rotation 55 Left Shoulder ROM WFL Yes Flexion 165 Extension 20 Abduction 150 External Rotation at 45 degrees 30 Abduction Internal Rotation 58 Shoulder ROM Limitations Shoulder ROM Limitations Soft Tissue Tightness,Muscle Weakness,Pain Elbow/Forearm Range of Motion Elbow/Forearm luisa Elbow/Forearm ROM WFL Yes PT-OP-L Special Tests Start: 03/13/19 09:21 Freq: Status: Active Protocol: Document 03/13/19 13:11 [facility] (Rec: 03/13/19 13:41 [facility] [id number]) Special Tests Cervical Spine Special Tests Traction Test Results decreased pain Comments gentle Foraminal Compression Test Results increased pain Comments gentle Shoulder Special Tests AC Joint Compression Test Results positive luisa Passive ER Rotator Cuff Test Results negative luisa IR/Horizontal ADD Impingement Test Results positive luisa Drop Arm Rotator Cuff Test Results negative luisa PT-OP-M Strength Start: 03/13/19 09:21 Freq: Status: Active Protocol: Document 03/13/19 13:11 [facility] (Rec: 03/13/19 13:41 [facility] [id number]) Cervical Spine Strength Cervical Spine Manual Muscle Testing Testing Position Sitting Flexion (C1-2) 3+ Fair+ Extension 3+ Fair+ Rotation Left 3+ Fair+ Rotation Right 3+ Fair+ Lateral Flexion Left (C3) 3+ Fair+ Lateral Flexion Right (C3) 3+ Fair+ Shoulder Strength Shoulder Manual Muscle Testing Right Flexion 3+ Fair+ Extension 4- Good- Abduction (C5) 3+ Fair+ External Rotation 3+ Fair+ Internal Rotation 4- Good- Left Flexion 3+ Fair+ Extension 4- Good- Abduction (C5) 3+ Fair+ External Rotation 3+ Fair+ Internal Rotation 4- Good- PT-OP-Q Treatments Start: 03/13/19 09:21 Freq: Status: Active Protocol: Document 10/02/19 08:59 [facility] (Rec: 10/02/19 09:47 [facility] [id number]) Cardio Equipment Recumbent Stepper (Sci-Fit) Duration (Minutes) 15 Resistance 2.5 Seat Position 9 Therapeutic Exercises Sitting Exercises pec stretch Reps/Minutes 5x5 trunk rotation Reps/Minutes 5 x 3 each side 4 Sitting Exercise Name cervical retraction Reps/Minutes 5x 2 Sitting Exercise Name shoulder shrug and scap squeeze Reps/Minutes 5 1 Sitting Exercise Name pulleys shoulder flex, scaption Equipment Used ball at thoracic spine Manual Therapy Treatment Soft Tissue Mobilization 2 Body Location luisa UT, bilateral c/s, upper thoracic, mid thoracic Mobilization Type Myofascial Release,Rolling, Strumming,Sustained Pressure, Trigger Point Release Intensity/Depth Moderate Body Position Prone Comments prone pillow for better access to thoracic spine 1 Body Location luisa lumbar and mid thoracic spine Mobilization Type Myofascial Release,Rolling Intensity/Depth Moderate Body Position Prone PT-OP-R Modalities Start: 03/13/19 09:21 Freq: Status: Active Protocol: Document 10/02/19 08:59 [facility] (Rec: 10/02/19 09:47 [facility] [id number]) Electric Stimulation Electric Stimulation Interferential Current (IFC) Body Location luisa l/s and mid thoracic spine Duration (Minutes) 15 Target/Sweep Sweep Patient Position Sitting Combined With Heat/Cold Hot Pack Comments IFES and MH to LBP in sitting during manual treatment to c/s and thoracic spine Ultrasound Therapy Treatment mid thoracic paraspinals Treatment Duration (minutes) 10 Patient Position Prone Duty Cycle 100% Intensity Setting (w/cm2) 1.3 PT-OP-T Assessment and Plan Start: 03/13/19 09:21 Freq: Status: Active Protocol: Document 10/02/19 08:59 [facility] (Rec: 10/02/19 09:47 [facility] [id number]) Physical Therapy Assessment Goals Three Impairment Pain Gardener Goal (LTG) Pain decreased by 50% 08/26/19: no progress, hasn't been seen in PT since 06/24/19 due to PT injury. LTG Duration 11/25/19 Two Impairment activity tolerance Short Term Goal (STG) Patient able to do 50% of her usual activities with minimal to no increase in pain STG Duration 10/08/19 Gardener Goal (LTG) Patient able to resume her usual activity level with minimal to no increase in pain LTG Duration 11/25/19 One Impairment ROM and strength Short Term Goal (STG) Patient able to tolerate HEP of gentle ROM, strengthening, and postural correction ex with minimal to no increase in pain STG Duration 10/08/19 Gardener Goal (LTG) Patient able to tolerate progression of ther ex and return to cardiac rehab LTG Duration 11/25/19 Assessment Summary Assessment Patient reporting mild increase in activity tolerance , and quicker recovery from exacerbation of thoracic pain with activity. Physical Therapy Plan Frequency and Duration Frequency of Treatment 2x/wk Duration of Treatment 12 wks Plan of Care Start Date 08/26/19 Plan of Care End Date 11/25/19 Therapeutic Interventions Therapeutic Interventions Home Exercise Program,Manual Therapy,Patient/Caregiver Education,Self-Care/Home Management,Taping,Therapeutic Activities,Therapeutic Exercises Modalities Electric Stimulation,Hot Packs ,Infrared Therapy, Iontophoresis,Ultrasound Next Visit Focus/Plan Next Note Type Treatment Note Next Visit Plan Continue progression of ther ex, manual therapy. Modalities as indicated for pain management.
--- NOTE | 2019-10-06 10:04 | PT.OTN ---
Current Diagnoses Pain in right shoulder (10/06/19) Cervicalgia (10/06/19) Low back pain (10/06/19) Pain in thoracic spine (10/06/19) Physical Therapy Treatment Note PT-OP-A Visit Information Start: 03/13/19 09:21 Freq: Status: Active Protocol: Document 10/06/19 08:58 SAK (Rec: 10/06/19 09:48 SAK [id number]) Out-Patient Physical Therapy Visit Information Visit Information Visit Type Treatment Note Visit Start Time 09:00 Visit Stop Time 10:00 Total Visit Minutes 60 Visit Number Number of OUTSOLE CUTTER MACHINE Visits 0 PT-OP-B Current Condition Start: 03/13/19 09:21 Freq: Status: Active Protocol: Document 03/13/19 13:11 SAK (Rec: 03/13/19 13:41 SAK [id number]) Current Condition History of Current Condition Onset Date 1+ yr Current Complaints pain c/s, thoracic spine, luisa shoulders. History of Current Condition Patient reports persistent, worsening, function-limiting pain luisa cervical, thoracic, and shoulders, most severe at bra line. Pain severely limits her activity tolerance and ability to sleep. Gradual onset, no traumatic injury. States her activity level is very limited. Prior Treatments and Tests MRI thoracic spine 11/28/18 showed marked facet arthrosis with mild neural foraminal stenosis bilateral T2-3 through T4-5 and right T10-11, otherwise mild/moderate diffuse thoracic facet joint arthrosis, paracentral protrusions causing trace spinal cord flattening T6-T7 through T8-9, moderate edematous (type I) discogenic endplate marrow degeneration T7-8 through T9-T10, partly included multilevel cervical and upper lumbar spinal stenosis MRI cervical spine 01/10/19 showed uncovertebral and facet joint arthrosis causing mod/ marked bilateral neural foraminal stenosis C3-C4, C5- C6, and C6-7. Mild/moderate central stenosis at C3-C4 through C6-C7 due to shallow central protrusion C4-C5, disc /osteophyte complexes at the other levals, and ligamenta flava hypertrophy at C3-C4. Resulting spinal cord flattening, greatest at C3-C4, mild neural foraminal stenosis at bilateral C4-C5 and left C7-T1. Future Testing and Treatments Planned Possible referral to pain management physician if PT not helpful. Treatment Goals Patient/Caregiver Goals Decrease pain and improve her activity tolerance and quality of life. Prior Functional Status Baseline Function- ADL's Independent Baseline Function- Mobility Independent Baseline Function- Gait Independent Baseline Function- Recreation/Hobbies no restrictions Current Functional Impairments (Reported) Functional Limitations- ADL's painful Functional Limitations- Mobility/Gait painful Functional Limitations- Recreation/ painful and extremely limited Hobbies Functional Limitations- Other unable to lay supine due to pain, can only tolerate laying on her right side PT-OP-C Subjective Start: 03/13/19 09:21 Freq: Status: Active Protocol: Document 10/06/19 08:58 SAK (Rec: 10/06/19 10:04 [facility] [id number]) OP-PT Subjective Patient Comments Patient Comments Patient reports minimal pain mid back since last PT treatment. Realized she tends to fall asleep while sitting in her chair at night so her sister got her a travel neck pillow that she puts on backward to support her head. States she is working hard on her posture. Patient Questionnaires Dizziness Handicap Inventory DHI Functional Impairment 100% Impaired (Score 100) PT-OP-F Manual Assessment Start: 03/13/19 09:21 Freq: Status: Active Protocol: Document 03/13/19 13:11 SAK (Rec: 03/13/19 13:41 [facility] [id number]) Manual Assessments Soft Tissue Assessment Soft Tissue Mobility Assessment palpable tightness throughout SCM, upper traps, levator scap , rhomboids PT-OP-H Neuro Start: 03/13/19 09:21 Freq: Status: Active Protocol: Document 03/13/19 13:11 SAK (Rec: 03/13/19 13:41 [facility] [id number]) Sensation Evaluation Comments Summary Comments denies N/T at this time. PT-OP-J Posture/Palpation/Skin Start: 03/13/19 09:21 Freq: Status: Active Protocol: Document 03/13/19 13:11 SAK (Rec: 03/13/19 13:41 [facility] [id number]) Posture Evaluation Position Sitting Head/C-Spine Posture C-Spine Flattened T-Spine Posture Increased Kyphosis Thorax Posture (L) Elevated,(R) Elevated Shoulder Posture (L) Rounded,(R) Rounded,(L) Forward,(R) Forward Scapula Posture (L) Protracted,(R) Protracted Arm Posture (L) Internally Rotated,(R) Internally Rotated PT-OP-K Range of Motion Start: 03/13/19 09:21 Freq: Status: Active Protocol: Document 03/13/19 13:11 [facility] (Rec: 03/13/19 13:41 [facility] [id number]) Cervical Spine Range of Motion Cervical Spine Active Flexion 48 Extension 25 Rotation Left 48 Rotation Right 45 Lateral Flexion Left 18 Lateral Flexion Right 21 ROM Limitations Pain Shoulder Goniometric Range of Motion Shoulder Right Shoulder ROM WFL No Flexion 125 Extension 15 Abduction 120 External Rotation at 45 degrees 25 Abduction Internal Rotation 55 Left Shoulder ROM WFL Yes Flexion 165 Extension 20 Abduction 150 External Rotation at 45 degrees 30 Abduction Internal Rotation 58 Shoulder ROM Limitations Shoulder ROM Limitations Soft Tissue Tightness,Muscle Weakness,Pain Elbow/Forearm Range of Motion Elbow/Forearm luisa Elbow/Forearm ROM WFL Yes PT-OP-L Special Tests Start: 03/13/19 09:21 Freq: Status: Active Protocol: Document 03/13/19 13:11 [facility] (Rec: 03/13/19 13:41 [facility] [id number]) Special Tests Cervical Spine Special Tests Traction Test Results decreased pain Comments gentle Foraminal Compression Test Results increased pain Comments gentle Shoulder Special Tests AC Joint Compression Test Results positive luisa Passive ER Rotator Cuff Test Results negative luisa IR/Horizontal ADD Impingement Test Results positive luisa Drop Arm Rotator Cuff Test Results negative luisa PT-OP-M Strength Start: 03/13/19 09:21 Freq: Status: Active Protocol: Document 03/13/19 13:11 [facility] (Rec: 03/13/19 13:41 [facility] [id number]) Cervical Spine Strength Cervical Spine Manual Muscle Testing Testing Position Sitting Flexion (C1-2) 3+ Fair+ Extension 3+ Fair+ Rotation Left 3+ Fair+ Rotation Right 3+ Fair+ Lateral Flexion Left (C3) 3+ Fair+ Lateral Flexion Right (C3) 3+ Fair+ Shoulder Strength Shoulder Manual Muscle Testing Right Flexion 3+ Fair+ Extension 4- Good- Abduction (C5) 3+ Fair+ External Rotation 3+ Fair+ Internal Rotation 4- Good- Left Flexion 3+ Fair+ Extension 4- Good- Abduction (C5) 3+ Fair+ External Rotation 3+ Fair+ Internal Rotation 4- Good- PT-OP-Q Treatments Start: 03/13/19 09:21 Freq: Status: Active Protocol: Document 10/06/19 08:58 [facility] (Rec: 10/06/19 09:48 [facility] [id number]) Cardio Equipment Treadmill Duration (Minutes) 10 Speed 2.0 Therapeutic Exercises Prone Exercises scapular retraction Reps/Minutes 10x Sitting Exercises trunk rotation Reps/Minutes 5 x 3 each side seated thoracic flex and ext Equipment Used ball at thoracic spine 4 Sitting Exercise Name cervical retraction Reps/Minutes 5x Standing Exercises standing downward dog Resistance waist-height bar Reps/Minutes 2x Comments to facilitate thoracic extension Manual Therapy Treatment Soft Tissue Mobilization 2 Body Location luisa UT, bilateral c/s, upper thoracic, mid thoracic Mobilization Type Myofascial Release,Rolling, Strumming,Sustained Pressure, Trigger Point Release Intensity/Depth Moderate Body Position Prone Comments prone pillow for better access to thoracic spine 1 Body Location luisa lumbar and mid thoracic spine Mobilization Type Myofascial Release,Rolling Intensity/Depth Moderate Body Position Prone Joint Mobilizations Thoracic PA's Joint T4-T10 Grade III Body Position Prone Reps/Duration 10 min Self-Care/Home Management Treatment Education Patient Education Pain Management,Posture PT-OP-R Modalities Start: 03/13/19 09:21 Freq: Status: Active Protocol: Document 10/06/19 08:58 [facility] (Rec: 10/06/19 09:48 [facility] [id number]) Electric Stimulation Electric Stimulation Interferential Current (IFC) Body Location luisa l/s and mid thoracic spine Duration (Minutes) 15 Target/Sweep Sweep Patient Position Sitting Combined With Heat/Cold Hot Pack Comments IFES and MH to LBP in sitting during manual treatment to c/s and thoracic spine Ultrasound Therapy Treatment mid thoracic paraspinals Treatment Duration (minutes) 10 Patient Position Prone Duty Cycle 100% Intensity Setting (w/cm2) 1.3 PT-OP-T Assessment and Plan Start: 03/13/19 09:21 Freq: Status: Active Protocol: Document 10/06/19 08:58 [facility] (Rec: 10/06/19 09:48 [facility] [id number]) Physical Therapy Assessment Goals Three Impairment Pain Care Home Goal (LTG) Pain decreased by 50% 08/26/19: no progress, hasn't been seen in PT since 06/24/19 due to PT injury. LTG Duration 11/25/19 Two Impairment activity tolerance Short Term Goal (STG) Patient able to do 50% of her usual activities with minimal to no increase in pain STG Duration 10/08/19 Care Home Goal (LTG) Patient able to resume her usual activity level with minimal to no increase in pain LTG Duration 11/25/19 One Impairment ROM and strength Short Term Goal (STG) Patient able to tolerate HEP of gentle ROM, strengthening, and postural correction ex with minimal to no increase in pain STG Duration 10/08/19 Box Lining Machine Feeder Goal (LTG) Patient able to tolerate progression of ther ex and return to cardiac rehab LTG Duration 11/25/19 Assessment Summary Assessment Reports increase in mid- thoracic pain with walking on treadmill today; states it hasn't hurt for a few days, since last PT treatment. Feel excessive kyphosis related to patient's thoracic pain; she reports working on her posture as we continue to emphasise it with each treatment. Has difficulty achieving thoracic extension. Her default posture is increased flexion when hurting. Physical Therapy Plan Frequency and Duration Frequency of Treatment 2x/wk Duration of Treatment 12 wks Plan of Care Start Date 08/26/19 Plan of Care End Date 11/25/19 Therapeutic Interventions Therapeutic Interventions Home Exercise Program,Manual Therapy,Patient/Caregiver Education,Self-Care/Home Management,Taping,Therapeutic Activities,Therapeutic Exercises Modalities Electric Stimulation,Hot Packs ,Infrared Therapy, Iontophoresis,Ultrasound Next Visit Focus/Plan Next Note Type Treatment Note Next Visit Plan Continue progression of ther ex, manual therapy. Modalities as indicated for pain management.
--- NOTE | 2019-10-09 09:31 | PT.OTN ---
Current Diagnoses Pain in right shoulder (10/09/19) Cervicalgia (10/09/19) Low back pain (10/09/19) Pain in thoracic spine (10/09/19) Physical Therapy Treatment Note PT-OP-A Visit Information Start: 03/13/19 09:21 Freq: Status: Active Protocol: Document 10/09/19 08:07 SAK (Rec: 10/09/19 09:26 SAK [id number]) Out-Patient Physical Therapy Visit Information Visit Information Visit Type Progress Note Visit Start Time 08:15 Visit Stop Time 09:15 Total Visit Minutes 60 Visit Number Number of CORE DROPPER Visits 0 PT-OP-B Current Condition Start: 03/13/19 09:21 Freq: Status: Active Protocol: Document 03/13/19 13:11 SAK (Rec: 03/13/19 13:41 SAK [id number]) Current Condition History of Current Condition Onset Date 1+ yr Current Complaints pain c/s, thoracic spine, luisa shoulders. History of Current Condition Patient reports persistent, worsening, function-limiting pain luisa cervical, thoracic, and shoulders, most severe at bra line. Pain severely limits her activity tolerance and ability to sleep. Gradual onset, no traumatic injury. States her activity level is very limited. Prior Treatments and Tests MRI thoracic spine 11/28/18 showed marked facet arthrosis with mild neural foraminal stenosis bilateral T2-3 through T4-5 and right T10-11, otherwise mild/moderate diffuse thoracic facet joint arthrosis, paracentral protrusions causing trace spinal cord flattening T6-T7 through T8-9, moderate edematous (type I) discogenic endplate marrow degeneration T7-8 through T9-T10, partly included multilevel cervical and upper lumbar spinal stenosis MRI cervical spine 01/10/19 showed uncovertebral and facet joint arthrosis causing mod/ marked bilateral neural foraminal stenosis C3-C4, C5- C6, and C6-7. Mild/moderate central stenosis at C3-C4 through C6-C7 due to shallow central protrusion C4-C5, disc /osteophyte complexes at the other levals, and ligamenta flava hypertrophy at C3-C4. Resulting spinal cord flattening, greatest at C3-C4, mild neural foraminal stenosis at bilateral C4-C5 and left C7-T1. Future Testing and Treatments Planned Possible referral to pain management physician if PT not helpful. Treatment Goals Patient/Caregiver Goals Decrease pain and improve her activity tolerance and quality of life. Prior Functional Status Baseline Function- ADL's Independent Baseline Function- Mobility Independent Baseline Function- Gait Independent Baseline Function- Recreation/Hobbies no restrictions Current Functional Impairments (Reported) Functional Limitations- ADL's painful Functional Limitations- Mobility/Gait painful Functional Limitations- Recreation/ painful and extremely limited Hobbies Functional Limitations- Other unable to lay supine due to pain, can only tolerate laying on her right side PT-OP-C Subjective Start: 03/13/19 09:21 Freq: Status: Active Protocol: Document 10/09/19 08:07 [facility] (Rec: 10/09/19 09:26 [facility] [id number]) OP-PT Subjective Patient Comments Patient Comments Patient reports less time to recover when her thoracic spine gets revved up. C/o intense pain left buttock today, I don't know what I did. States she did do stretch shown last session ( standing modfied downward dog) at counter but I don't think that caused this pain. Reports she and her sister are going to start [employer] today, and she is planning to start Cardiac rehab tomorrow. PT-OP-F Manual Assessment Start: 03/13/19 09:21 Freq: Status: Active Protocol: Document 03/13/19 13:11 [facility] (Rec: 03/13/19 13:41 [facility] [id number]) Manual Assessments Soft Tissue Assessment Soft Tissue Mobility Assessment palpable tightness throughout SCM, upper traps, levator scap , rhomboids PT-OP-H Neuro Start: 03/13/19 09:21 Freq: Status: Active Protocol: Document 03/13/19 13:11 [facility] (Rec: 03/13/19 13:41 [facility] [id number]) Sensation Evaluation Comments Summary Comments denies N/T at this time. PT-OP-J Posture/Palpation/Skin Start: 03/13/19 09:21 Freq: Status: Active Protocol: Document 03/13/19 13:11 [facility] (Rec: 03/13/19 13:41 [facility] [id number]) Posture Evaluation Position Sitting Head/C-Spine Posture C-Spine Flattened T-Spine Posture Increased Kyphosis Thorax Posture (L) Elevated,(R) Elevated Shoulder Posture (L) Rounded,(R) Rounded,(L) Forward,(R) Forward Scapula Posture (L) Protracted,(R) Protracted Arm Posture (L) Internally Rotated,(R) Internally Rotated PT-OP-K Range of Motion Start: 03/13/19 09:21 Freq: Status: Active Protocol: Document 03/13/19 13:11 [facility] (Rec: 03/13/19 13:41 [facility] [id number]) Cervical Spine Range of Motion Cervical Spine Active Flexion 48 Extension 25 Rotation Left 48 Rotation Right 45 Lateral Flexion Left 18 Lateral Flexion Right 21 ROM Limitations Pain Shoulder Goniometric Range of Motion Shoulder Right Shoulder ROM WFL No Flexion 125 Extension 15 Abduction 120 External Rotation at 45 degrees 25 Abduction Internal Rotation 55 Left Shoulder ROM WFL Yes Flexion 165 Extension 20 Abduction 150 External Rotation at 45 degrees 30 Abduction Internal Rotation 58 Shoulder ROM Limitations Shoulder ROM Limitations Soft Tissue Tightness,Muscle Weakness,Pain Elbow/Forearm Range of Motion Elbow/Forearm luisa Elbow/Forearm ROM WFL Yes PT-OP-L Special Tests Start: 03/13/19 09:21 Freq: Status: Active Protocol: Document 03/13/19 13:11 [facility] (Rec: 03/13/19 13:41 [facility] [id number]) Special Tests Cervical Spine Special Tests Traction Test Results decreased pain Comments gentle Foraminal Compression Test Results increased pain Comments gentle Shoulder Special Tests AC Joint Compression Test Results positive luisa Passive ER Rotator Cuff Test Results negative luisa IR/Horizontal ADD Impingement Test Results positive luisa Drop Arm Rotator Cuff Test Results negative luisa PT-OP-M Strength Start: 03/13/19 09:21 Freq: Status: Active Protocol: Document 03/13/19 13:11 [facility] (Rec: 03/13/19 13:41 [facility] [id number]) Cervical Spine Strength Cervical Spine Manual Muscle Testing Testing Position Sitting Flexion (C1-2) 3+ Fair+ Extension 3+ Fair+ Rotation Left 3+ Fair+ Rotation Right 3+ Fair+ Lateral Flexion Left (C3) 3+ Fair+ Lateral Flexion Right (C3) 3+ Fair+ Shoulder Strength Shoulder Manual Muscle Testing Right Flexion 3+ Fair+ Extension 4- Good- Abduction (C5) 3+ Fair+ External Rotation 3+ Fair+ Internal Rotation 4- Good- Left Flexion 3+ Fair+ Extension 4- Good- Abduction (C5) 3+ Fair+ External Rotation 3+ Fair+ Internal Rotation 4- Good- PT-OP-Q Treatments Start: 03/13/19 09:21 Freq: Status: Active Protocol: Document 10/09/19 08:07 [facility] (Rec: 10/09/19 09:26 [facility] [id number]) Cardio Equipment Recumbent Stepper (Sci-Fit) Duration (Minutes) 15 Resistance 2.5 Seat Position 9 Treadmill Duration (Minutes) 2 Speed 1.8 Therapeutic Exercises Prone Exercises lateral chest and posterior thoracic breathing Comments verbal and manual cues hip IR/ER Reps/Minutes 10x Comments manual assist Sitting Exercises diaphragmatic and lateral chest breathing Comments verbal and manual cues SKTC Comments mod assist Standing Exercises standing downward dog Comments not done today due to buttock pain Manual Therapy Treatment Soft Tissue Mobilization left piriformis, buttock Intensity/Depth Moderate Body Position Sitting Comments use of tennis ballr self treatment 2 Body Location luisa UT, bilateral c/s, upper thoracic, mid thoracic Mobilization Type Myofascial Release,Rolling, Strumming,Sustained Pressure, Trigger Point Release Intensity/Depth Moderate Body Position Prone Comments prone pillow for better access to thoracic spine 1 Body Location luisa lumbar and mid thoracic spine Mobilization Type Myofascial Release,Rolling Intensity/Depth Moderate Body Position Prone Joint Mobilizations Thoracic PA's Joint T4-T10 Grade III Body Position Prone Reps/Duration 10 min Self-Care/Home Management Treatment Education Patient Education Pain Management Other Education use of heating pad for buttock PT-OP-R Modalities Start: 03/13/19 09:21 Freq: Status: Active Protocol: Document 10/09/19 08:07 [facility] (Rec: 10/09/19 09:26 [facility] [id number]) Electric Stimulation Electric Stimulation Interferential Current (IFC) Body Location luisa l/s and mid thoracic spine Duration (Minutes) 15 Target/Sweep Sweep Patient Position Sitting Combined With Heat/Cold Hot Pack Comments IFES and MH to LBP in sitting during manual treatment to c/s and thoracic spine Ultrasound Therapy Treatment mid thoracic paraspinals Treatment Duration (minutes) 10 Patient Position Prone Duty Cycle 100% Intensity Setting (w/cm2) 1.3 PT-OP-T Assessment and Plan Start: 03/13/19 09:21 Freq: Status: Active Protocol: Document 10/09/19 08:07 [facility] (Rec: 10/09/19 09:26 [facility] [id number]) Physical Therapy Assessment Goals Three Impairment Pain Prison Goal (LTG) Pain decreased by 50% 08/26/19: no progress, hasn't been seen in PT since 06/24/19 due to PT injury. 09/08/20: Some improvement, though new pain today in left buttock worse than any of her other pain per her report. LTG Duration 11/25/19 Two Impairment activity tolerance Short Term Goal (STG) Patient able to do 50% of her usual activities with minimal to no increase in pain STG Duration 10/08/19 Ornithology Teacher Goal (LTG) Patient able to resume her usual activity level with minimal to no increase in pain 09/08/20: some improvement. Can now do 15 min on Sci Fit, 10 min on treadmill (though not today due to buttock pain) LTG Duration 11/25/19 One Impairment ROM and strength Short Term Goal (STG) Patient able to tolerate HEP of gentle ROM, strengthening, and postural correction ex with minimal to no increase in pain 09/08/20: good improvement, patient planning to start back to cardiac rehab tomorrow. STG Duration 10/08/19 Ornithology Teacher Goal (LTG) Patient able to tolerate progression of ther ex and return to cardiac rehab LTG Duration 11/25/19 Assessment Summary Assessment Improved thoracic pain recovery time. Continue to educate on posture and body mechanics, alternative methods for performing ADL's with emphasis on neutral spinal positioning, frequent breaks. Palpation of left buttock reveals exquisite tenderness and tightness of left piriformis. MH was applied to this reagion during prone manual techniques, and patient was instructed in gentle hip IR and ER to be done at home ( luisa and unil) and demonstrated good understanding as she has done this previously. Difficult to perform objective reassessment due to pain level today. Overal demonstrating improved activity tolerance. Physical Therapy Plan Frequency and Duration Frequency of Treatment 2x/wk Duration of Treatment 12 wks Plan of Care Start Date 08/26/19 Plan of Care End Date 11/25/19 Therapeutic Interventions Therapeutic Interventions Home Exercise Program,Manual Therapy,Patient/Caregiver Education,Self-Care/Home Management,Taping,Therapeutic Activities,Therapeutic Exercises Modalities Electric Stimulation,Hot Packs ,Infrared Therapy, Iontophoresis,Ultrasound Next Visit Focus/Plan Next Note Type Treatment Note Next Visit Plan Assess strength and ROM. Progress therapeutic exercises as tolerated. Review deep breathing and hip rotation ex. Assess response to use of tennis ball for self- mobilization.
--- NOTE | 2019-10-14 12:07 | PT.OTN ---
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 History of Current Condition Patient reports persistent, worsening, function-limiting pain luisa cervical, thoracic, and shoulders, most severe at bra line. Pain severely limits her activity tolerance and ability to sleep. Gradual onset, no traumatic injury. States her activity level is very limited. Prior Treatments and Tests MRI thoracic spine 11/28/18 showed marked facet arthrosis with mild neural foraminal stenosis bilateral T2-3 through T4-5 and right T10-11, otherwise mild/moderate diffuse thoracic facet joint arthrosis, paracentral protrusions causing trace spinal cord flattening T6-T7 through T8-9, moderate edematous (type I) discogenic endplate marrow degeneration T7-8 through T9-T10, partly included multilevel cervical and upper lumbar spinal stenosis MRI cervical spine 01/10/19 showed uncovertebral and facet joint arthrosis causing mod/ marked bilateral neural foraminal stenosis C3-C4, C5- C6, and C6-7. Mild/moderate central stenosis at C3-C4 through C6-C7 due to shallow central protrusion C4-C5, disc /osteophyte complexes at the other levals, and ligamenta flava hypertrophy at C3-C4. Resulting spinal cord flattening, greatest at C3-C4, mild neural foraminal stenosis at bilateral C4-C5 and left C7-T1. Future Testing and Treatments Planned Possible referral to pain management physician if PT not helpful. Treatment Goals Patient/Caregiver Goals Decrease pain and improve her activity tolerance and quality of life. Prior Functional Status Baseline Function- ADL's Independent Baseline Function- Mobility Independent Baseline Function- Gait Independent Baseline Function- Recreation/Hobbies no restrictions Current Functional Impairments (Reported) Functional Limitations- ADL's painful Functional Limitations- Mobility/Gait painful Functional Limitations- Recreation/ painful and extremely limited Hobbies Functional Limitations- Other unable to lay supine due to pain, can only tolerate laying on her right side PT-OP-C Subjective Start: 03/13/19 09:21 Freq: Status: Active Protocol: Document 10/14/19 09:47 [facility] (Rec: 10/14/19 10:32 [facility] [id number]) OP-PT Subjective Patient Comments Patient Comments Reports she was in ER 10/11/19 due to chest pain. Has been referred for stent and angiogram. Sees the doctor in a couple weeks (Dr. Montes). THoracic pain increase today, neck pretty good. Also buttock pain PT-OP-F Manual Assessment Start: 03/13/19 09:21 Freq: Status: Active Protocol: Document 03/13/19 13:11 [facility] (Rec: 03/13/19 13:41 [facility] [id number]) Manual Assessments Soft Tissue Assessment Soft Tissue Mobility Assessment palpable tightness throughout SCM, upper traps, levator scap , rhomboids PT-OP-H Neuro Start: 03/13/19 09:21 Freq: Status: Active Protocol: Document 03/13/19 13:11 [facility] (Rec: 03/13/19 13:41 [facility] [id number]) Sensation Evaluation Comments Summary Comments denies N/T at this time. PT-OP-J Posture/Palpation/Skin Start: 03/13/19 09:21 Freq: Status: Active Protocol: Document 03/13/19 13:11 [facility] (Rec: 03/13/19 13:41 [facility] [id number]) Posture Evaluation Position Sitting Head/C-Spine Posture C-Spine Flattened T-Spine Posture Increased Kyphosis Thorax Posture (L) Elevated,(R) Elevated Shoulder Posture (L) Rounded,(R) Rounded,(L) Forward,(R) Forward Scapula Posture (L) Protracted,(R) Protracted Arm Posture (L) Internally Rotated,(R) Internally Rotated PT-OP-K Range of Motion Start: 03/13/19 09:21 Freq: Status: Active Protocol: Document 03/13/19 13:11 [facility] (Rec: 03/13/19 13:41 [facility] [id number]) Cervical Spine Range of Motion Cervical Spine Active Flexion 48 Extension 25 Rotation Left 48 Rotation Right 45 Lateral Flexion Left 18 Lateral Flexion Right 21 ROM Limitations Pain Shoulder Goniometric Range of Motion Shoulder Right Shoulder ROM WFL No Flexion 125 Extension 15 Abduction 120 External Rotation at 45 degrees 25 Abduction Internal Rotation 55 Left Shoulder ROM WFL Yes Flexion 165 Extension 20 Abduction 150 External Rotation at 45 degrees 30 Abduction Internal Rotation 58 Shoulder ROM Limitations Shoulder ROM Limitations Soft Tissue Tightness,Muscle Weakness,Pain Elbow/Forearm Range of Motion Elbow/Forearm luisa Elbow/Forearm ROM WFL Yes PT-OP-L Special Tests Start: 03/13/19 09:21 Freq: Status: Active Protocol: Document 03/13/19 13:11 [facility] (Rec: 03/13/19 13:41 [facility] [id number]) Special Tests Cervical Spine Special Tests Traction Test Results decreased pain Comments gentle Foraminal Compression Test Results increased pain Comments gentle Shoulder Special Tests AC Joint Compression Test Results positive luisa Passive ER Rotator Cuff Test Results negative luisa IR/Horizontal ADD Impingement Test Results positive luisa Drop Arm Rotator Cuff Test Results negative luisa PT-OP-M Strength Start: 03/13/19 09:21 Freq: Status: Active Protocol: Document 03/13/19 13:11 [facility] (Rec: 03/13/19 13:41 [facility] [id number]) Cervical Spine Strength Cervical Spine Manual Muscle Testing Testing Position Sitting Flexion (C1-2) 3+ Fair+ Extension 3+ Fair+ Rotation Left 3+ Fair+ Rotation Right 3+ Fair+ Lateral Flexion Left (C3) 3+ Fair+ Lateral Flexion Right (C3) 3+ Fair+ Shoulder Strength Shoulder Manual Muscle Testing Right Flexion 3+ Fair+ Extension 4- Good- Abduction (C5) 3+ Fair+ External Rotation 3+ Fair+ Internal Rotation 4- Good- Left Flexion 3+ Fair+ Extension 4- Good- Abduction (C5) 3+ Fair+ External Rotation 3+ Fair+ Internal Rotation 4- Good- PT-OP-Q Treatments Start: 03/13/19 09:21 Freq: Status: Active Protocol: Document 10/14/19 09:47 [facility]AK (Rec: 10/14/19 10:32 [facility] [id number]) Cardio Equipment Recumbent Stepper (Sci-Fit) Duration (Minutes) 12 Resistance 2.5 Seat Position 9 Treadmill Duration (Minutes) 8 Speed 1.8 Therapeutic Exercises Sitting Exercises diaphragmatic and lateral chest breathing Comments verbal and manual cues Standing Exercises standing downward dog Comments not done today due to buttock pain Manual Therapy Treatment Soft Tissue Mobilization left piriformis, buttock Comments Not done due to increased pain 2 Body Location luisa UT, bilateral c/s, upper thoracic, mid thoracic Mobilization Type Myofascial Release,Rolling, Strumming,Sustained Pressure, Trigger Point Release Intensity/Depth Moderate Body Position Prone Comments prone pillow for better access to thoracic spine 1 Body Location luisa lumbar and mid thoracic spine Mobilization Type Myofascial Release,Rolling Intensity/Depth Moderate Body Position Prone Joint Mobilizations Thoracic PA's Joint T4-T10 Grade III Body Position Prone Reps/Duration 10 min PT-OP-R Modalities Start: 03/13/19 09:21 Freq: Status: Active Protocol: Document 10/14/19 09:47 [facility] (Rec: 10/14/19 10:32 [facility] [id number]) Electric Stimulation Electric Stimulation Interferential Current (IFC) Body Location luisa l/s and mid thoracic spine Duration (Minutes) 15 Target/Sweep Sweep Patient Position Sitting Combined With Heat/Cold Hot Pack Comments IFES and MH to LBP in sitting during manual treatment to c/s and thoracic spine Ultrasound Therapy Treatment mid thoracic paraspinals Treatment Duration (minutes) 10 Patient Position Prone Duty Cycle 100% Intensity Setting (w/cm2) 1.3 PT-OP-T Assessment and Plan Start: 03/13/19 09:21 Freq: Status: Active Protocol: Document 10/14/19 09:47 [facility] (Rec: 10/14/19 10:32 [facility] [id number]) Physical Therapy Assessment Goals Three 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 09/08/20: Some improvement, though new pain today in left buttock worse than any of her other pain per her report. LTG Duration 11/25/19 Two Impairment activity tolerance Short Term Goal (STG) Patient able to do 50% of her usual activities with minimal to no increase in pain STG Duration 10/08/19 [facility] Goal (LTG) Patient able to resume her usual activity level with minimal to no increase in pain 09/08/20: some improvement. Can now do 15 min on Sci Fit, 10 min on treadmill (though not today due to buttock pain) LTG Duration 11/25/19 One Impairment ROM and strength Short Term Goal (STG) Patient able to tolerate HEP of gentle ROM, strengthening, and postural correction ex with minimal to no increase in pain 09/08/20: good improvement, patient planning to start back to cardiac rehab tomorrow. STG Duration 10/08/19 Supervisor [employer] Goal (LTG) Patient able to tolerate progression of ther ex and return to cardiac rehab LTG Duration 11/25/19 Assessment Summary Assessment Continues to report quicker recovery with thoracic pain, decreased neck and low back pain. Still limited by buttock pain. May need further evaluation next visit. Patient frustrated by cardiac issues. Has started cardiac maintenance and weight watchers. If has procedure will re-start full cardiac rehab. Physical Therapy Plan Frequency and Duration Frequency of Treatment 2x/wk Duration of Treatment 12 wks Plan of Care Start Date 08/26/19 Plan of Care End Date 11/25/19 Therapeutic Interventions Therapeutic Interventions Home Exercise Program,Manual Therapy,Patient/Caregiver Education,Self-Care/Home Management,Taping,Therapeutic Activities,Therapeutic Exercises Modalities Electric Stimulation,Hot Packs ,Infrared Therapy, Iontophoresis,Ultrasound Next Visit Focus/Plan Next Note Type Treatment Note Next Visit Plan Assess strength and ROM. Progress therapeutic exercises as tolerated. Review deep breathing and hip rotation ex. Assess response to use of tennis ball for self- mobilization.
--- NOTE | 2019-12-02 10:02 | PT.OPPOC ---
Physical, Occupational & Speech Therapy At [facility] Current Diagnoses Pain in right shoulder (12/02/19) Cervicalgia (12/02/19) Low back pain (12/02/19) Pain in thoracic spine (12/02/19) Visit Care Team Role Provider Type Soledad Vick DO Primary Care Provider Physician Specialty: Family Practice Address: [address] [place] [address], [address], [address] Email: [email or web address] Arjun Lay MD Attending Provider Non-Staff Specialty: Neurosurgery Address: [address] [place] [address], [id number] Email: Plan Of Care PT-OP-T Assessment and Plan Start: 03/13/19 09:21 Freq: Status: Active Protocol: Document 12/02/19 09:03 [facility]EN (Rec: 12/02/19 10:01 [facility] [id number]) Physical Therapy Assessment Goals Three Impairment Pain Shelter Goal (LTG) Pain decreased by 50% 08/26/19: no progress, hasn't been seen in PT since 06/24/19 due to PT injury. 09/08/20: Some improvement, though new pain today in left buttock worse than any of her other pain per her report. 12/02/19: minimal improvement, not seen since October 14, medical complications LTG Duration 12/02/19 Two Impairment activity tolerance Short Term Goal (STG) Patient able to do 50% of her usual activities with minimal to no increase in pain [employer] Goal (LTG) Patient able to resume her usual activity level with minimal to no increase in pain 09/08/20: some improvement. Can now do 15 min on Sci Fit, 10 min on treadmill (though not today due to buttock pain) 12/02/19: not met due to medical issues (cardiac) LTG Duration 12/02/19 One Impairment ROM and strength Short Term Goal (STG) Patient able to tolerate HEP of gentle ROM, strengthening, and postural correction ex with minimal to no increase in pain 09/08/20: good improvement, patient planning to start back to cardiac rehab tomorrow. [employer] Goal (LTG) Patient able to tolerate progression of ther ex and return to cardiac rehab 12/02/19: has returned to cardiac rehab s/p stent placement and NE, recommended patient not ues weights at this time with ther ex due to increase in thoracic pain with use of weights. LTG Duration 12/02/19 Assessment Summary Assessment Due to stent placement and NE patient has returned to cardiac rehab (started yesterday). Recommended to patient she not use weights with ther ex due to exacerbation of thoracic pain with use at this time. Patient to contact neurosurgeon as she states he previously recommended further , focused imaging on thoracic spine if pain persisted. Physical Therapy Plan Frequency and Duration Frequency of Treatment 1x/Week Duration of Treatment 1 wks Plan of Care Start Date 12/02/19 Plan of Care End Date 12/09/19 Therapeutic Interventions Therapeutic Interventions Home Exercise Program,Self- Care/Home Management Modalities Hot Packs Discharge Physical Therapy Discharge Reasons Change in Medical Status Plan of Care Dates Plan of Care Start Date 12/02/19 Plan of Care End Date 12/09/19 Electronically Signed by: Luh Weaver, PT 12/02/19 1002 Please Sign and Return: I have reviewed this Plan of Care and certify that the skilled therapy services above are required to meet the patient?s needs. Physician Signature Date Printed Name and Credentials Clinical Instructor Signature Printed Name and Credentials
--- NOTE | 2019-12-02 10:02 | PT.OTRE ---
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) History of recurrent pneumonia (Resolved) Hypertension (Chronic) Prinzmetal's angina (Chronic 1975) Proteus enteritis (Inactive) Shingles (Resolved 2016) Sleep apnea (Chronic) Statin intolerance (Chronic) Thyroid nodule (Acute) Surgical History (Last Reviewed 10/11/19 @ 03:12 by Vern Mcdonald DO) History of arthroplasty (Resolved 12/09/12) History of arthroplasty (Resolved 01/20/13) History of cataract removal with insertion of prosthetic lens (Resolved 2014) History of cholecystectomy (Resolved) History of tonsillectomy (Resolved) Stented coronary artery (Resolved 2013) Visit Care Team Role Provider Type Soledad Vick DO Primary Care Provider Physician Specialty: Family Practice Address: [address] [place] [address], [address], [address] Email: [email or web address] Arjun Lay MD Attending Provider Non-Staff Specialty: Neurosurgery Address: [address] [place] [address], [phone] Email: Physical Therapy Re-Evaluation PT-OP-A Visit Information Start: 03/13/19 09:21 Freq: Status: Active Protocol: Document 12/02/19 09:03 [facility] (Rec: 12/02/19 10:01 BEN [id number]) Out-Patient Physical Therapy Visit Information Visit Information Visit Type Re-Evaluation Visit Start Time 09:00 Visit Stop Time 09:45 Total Visit Minutes 45 Visit Number 22/30 Number of ROLLER GOLD LEAF Visits 0 PT-OP-B Current Condition Start: 03/13/19 09:21 Freq: Status: Active Protocol: Document 03/13/19 13:11 [facility] (Rec: 03/13/19 13:41 [facility] [id number]) Current Condition History of Current Condition Onset Date 1+ yr Current Complaints pain c/s, thoracic spine, luisa shoulders. History of Current Condition Patient reports persistent, worsening, function-limiting pain luisa cervical, thoracic, and shoulders, most severe at bra line. Pain severely limits her activity tolerance and ability to sleep. Gradual onset, no traumatic injury. States her activity level is very limited. Prior Treatments and Tests MRI thoracic spine 11/28/18 showed marked facet arthrosis with mild neural foraminal stenosis bilateral T2-3 through T4-5 and right T10-11, otherwise mild/moderate diffuse thoracic facet joint arthrosis, paracentral protrusions causing trace spinal cord flattening T6-T7 through T8-9, moderate edematous (type I) discogenic endplate marrow degeneration T7-8 through T9-T10, partly included multilevel cervical and upper lumbar spinal stenosis MRI cervical spine 01/10/19 showed uncovertebral and facet joint arthrosis causing mod/ marked bilateral neural foraminal stenosis C3-C4, C5- C6, and C6-7. Mild/moderate central stenosis at C3-C4 through C6-C7 due to shallow central protrusion C4-C5, disc /osteophyte complexes at the other levals, and ligamenta flava hypertrophy at C3-C4. Resulting spinal cord flattening, greatest at C3-C4, mild neural foraminal stenosis at bilateral C4-C5 and left C7-T1. Future Testing and Treatments Planned Possible referral to pain management physician if PT not helpful. Treatment Goals Patient/Caregiver Goals Decrease pain and improve her activity tolerance and quality of life. Prior Functional Status Baseline Function- ADL's Independent Baseline Function- Mobility Independent Baseline Function- Gait Independent Baseline Function- Recreation/Hobbies no restrictions Current Functional Impairments (Reported) Functional Limitations- ADL's painful Functional Limitations- Mobility/Gait painful Functional Limitations- Recreation/ painful and extremely limited Hobbies Functional Limitations- Other unable to lay supine due to pain, can only tolerate laying on her right side PT-OP-C Subjective Start: 03/13/19 09:21 Freq: Status: Active Protocol: Document 12/02/19 09:03 [facility] (Rec: 12/02/19 10:01 [facility] [id number]) OP-PT Subjective Patient Comments Patient Comments For 3 1/2 wks no exercise per keeper helper . 2 wks ago angiogram, stent placed. AL. Referred to cardiac rehab, started yesterday. Increased thoracic pain with use of 2# weights. Doesn't feel she can do both PT and cardiac rehab at this time so requests discharge from PT. Wants to discuss MRI results, get written HEP. PT-OP-F Manual Assessment Start: 03/13/19 09:21 Freq: Status: Active Protocol: Document 03/13/19 13:11 [facility] (Rec: 03/13/19 13:41 [facility] [id number]) Manual Assessments Soft Tissue Assessment Soft Tissue Mobility Assessment palpable tightness throughout SCM, upper traps, levator scap , rhomboids PT-OP-H Neuro Start: 03/13/19 09:21 Freq: Status: Active Protocol: Document 03/13/19 13:11 [facility] (Rec: 03/13/19 13:41 [facility] [id number]) Sensation Evaluation Comments Summary Comments denies N/T at this time. PT-OP-J Posture/Palpation/Skin Start: 03/13/19 09:21 Freq: Status: Active Protocol: Document 03/13/19 13:11 [facility] (Rec: 03/13/19 13:41 [facility] [id number]) Posture Evaluation Position Sitting Head/C-Spine Posture C-Spine Flattened T-Spine Posture Increased Kyphosis Thorax Posture (L) Elevated,(R) Elevated Shoulder Posture (L) Rounded,(R) Rounded,(L) Forward,(R) Forward Scapula Posture (L) Protracted,(R) Protracted Arm Posture (L) Internally Rotated,(R) Internally Rotated PT-OP-K Range of Motion Start: 03/13/19 09:21 Freq: Status: Active Protocol: Document 03/13/19 13:11 [facility] (Rec: 03/13/19 13:41 [facility] [id number]) Cervical Spine Range of Motion Cervical Spine Active Flexion 48 Extension 25 Rotation Left 48 Rotation Right 45 Lateral Flexion Left 18 Lateral Flexion Right 21 ROM Limitations Pain Shoulder Goniometric Range of Motion Shoulder Measured in Degrees Right Shoulder ROM WFL No Flexion 125 Extension 15 Abduction 120 External Rotation at 45 degrees 25 Abduction Internal Rotation 55 Left Shoulder ROM WFL Yes Flexion 165 Extension 20 Abduction 150 External Rotation at 45 degrees 30 Abduction Internal Rotation 58 Shoulder ROM Limitations Shoulder ROM Limitations Soft Tissue Tightness,Muscle Weakness,Pain Elbow/Forearm Range of Motion Elbow/Forearm Measured in Degrees luisa Elbow/Forearm ROM WFL Yes PT-OP-L Special Tests Start: 03/13/19 09:21 Freq: Status: Active Protocol: Document 03/13/19 13:11 [facility] (Rec: 03/13/19 13:41 [facility] [id number]) Special Tests Cervical Spine Special Tests Traction Test Results decreased pain Comments gentle Foraminal Compression Test Results increased pain Comments gentle Shoulder Special Tests AC Joint Compression Test Results positive luisa Passive ER Rotator Cuff Test Results negative luisa IR/Horizontal ADD Impingement Test Results positive luisa Drop Arm Rotator Cuff Test Results negative luisa PT-OP-M Strength Start: 03/13/19 09:21 Freq: Status: Active Protocol: Document 03/13/19 13:11 [facility] (Rec: 03/13/19 13:41 [facility] [id number]) Cervical Spine Strength Cervical Spine Manual Muscle Testing Testing Position Sitting Flexion (C1-2) 3+ Fair+ Extension 3+ Fair+ Rotation Left 3+ Fair+ Rotation Right 3+ Fair+ Lateral Flexion Left (C3) 3+ Fair+ Lateral Flexion Right (C3) 3+ Fair+ Shoulder Strength Shoulder Manual Muscle Testing Right Flexion 3+ Fair+ Extension 4- Good- Abduction (C5) 3+ Fair+ External Rotation 3+ Fair+ Internal Rotation 4- Good- Left Flexion 3+ Fair+ Extension 4- Good- Abduction (C5) 3+ Fair+ External Rotation 3+ Fair+ Internal Rotation 4- Good- PT-OP-Q Treatments Start: 03/13/19 09:21 Freq: Status: Active Protocol: Document 12/02/19 09:03 [facility] (Rec: 12/02/19 10:01 [facility] [id number]) Self-Care/Home Management Treatment Education Patient Education Body Mechanics,Home Exercise Program,Joint Protection,Pain Management,Posture Other Education Importance of postural correction exercises. Contact neurosurgeon who recommended further targeted testing of mid thoracic spine if pain persists. PT-OP-R Modalities Start: 03/13/19 09:21 Freq: Status: Active Protocol: Document 12/02/19 09:03 [facility] (Rec: 12/02/19 10:01 [facility] [id number]) Hot Pack/Cold Pack Treatment Hot Pack Location C/s, l/s, t/s Patient Position Sitting Treatment Duration (minutes) 15 PT-OP-T Assessment and Plan Start: 03/13/19 09:21 Freq: Status: Active Protocol: Document 12/02/19 09:03 [facility] (Rec: 12/02/19 10:01 [facility] [id number]) Physical Therapy Assessment Goals Three Impairment Pain Nursing Home Goal (LTG) Pain decreased by 50% 08/26/19: no progress, hasn't been seen in PT since 06/24/19 due to PT injury. 09/08/20: Some improvement, though new pain today in left buttock worse than any of her other pain per her report. 12/02/19: minimal improvement, not seen since October 14, medical complications LTG Duration 12/02/19 Two Impairment activity tolerance Short Term Goal (STG) Patient able to do 50% of her usual activities with minimal to no increase in pain Nursing Home Goal (LTG) Patient able to resume her usual activity level with minimal to no increase in pain 09/08/20: some improvement. Can now do 15 min on Sci Fit, 10 min on treadmill (though not today due to buttock pain) 12/02/19: not met due to medical issues (cardiac) LTG Duration 12/02/19 One Impairment ROM and strength Short Term Goal (STG) Patient able to tolerate HEP of gentle ROM, strengthening, and postural correction ex with minimal to no increase in pain 09/08/20: good improvement, patient planning to start back to cardiac rehab tomorrow. Lead Mobile Developer Goal (LTG) Patient able to tolerate progression of ther ex and return to cardiac rehab 12/02/19: has returned to cardiac rehab s/p stent placement and AL, recommended patient not ues weights at this time with ther ex due to increase in thoracic pain with use of weights. LTG Duration 12/02/19 Assessment Summary Assessment Due to stent placement and AL patient has returned to cardiac rehab (started yesterday). Recommended to patient she not use weights with ther ex due to exacerbation of thoracic pain with use at this time. Patient to contact neurosurgeon as she states he previously recommended further , focused imaging on thoracic spine if pain persisted. Physical Therapy Plan Frequency and Duration Frequency of Treatment 1x/Week Duration of Treatment 1 wks Plan of Care Start Date 12/02/19 Plan of Care End Date 12/09/19 Therapeutic Interventions Therapeutic Interventions Home Exercise Program,Self- Care/Home Management Modalities Hot Packs Discharge Physical Therapy Discharge Reasons Change in Medical Status
== END 2019-12-02 13:17 ==
LOC: PHYS 09:00
PROVIDERS: PCP Family Medicine; Visit Provider Neurological Surgery
DX: M54.2 Cervicalgia (principal); M54.6 Pain in thoracic spine; M25.511 Pain in right shoulder; M54.5 Low back pain
CPT/HCPCS: 97010; 97014; 97016; 97035; 97110; 97140; 97162; 97535; G0283

== ENCOUNTER → 2019-12-12 11:13 | Outpatient (CLI) | payer MEDICARE, BC, SELFPAY ==
[2019-12-12 12:13] LABS: Add Manual Diff / Slide Review NO; Basophils Absolute Auto 0 /uL (0-100); Basophils Percent Auto 0.6 % (0-2); Eosinophils Absolute Auto 100 /uL (0-450); Eosinophils Percent Auto 1.6 % (2-4); Hematocrit 36.7 % (36-46); Hemoglobin 12.1 g/dL (12.0-16.0); Lymphocytes Absolute Auto 1000 /uL (1100-4500); Lymphocytes Percent Auto 17.4 % (25-40); Mean Corpuscular HGB Conc 32.9 % (30-36); Mean Corpuscular Hemoglobin 28.5 PG (26-34); Mean Corpuscular Volume 86.7 fL (80-100); Monocytes Absolute Auto 400 /uL (0-900); Monocytes Percent Auto 7.3 % (3-14); Neutrophils Absolute Auto 4200 /uL (1500-7000); Neutrophils Percent Auto 73.1 % (50-75); Platelet Count 234 X10^3/uL (150-400); Red Blood Cell Count 4.23 X10^6/uL (4.0-5.2); Red Cell Distribution Width 14.2 % (11.6-14.8); White Blood Cell Count 5.8 X10^3/uL (4.5-11.0)
[2019-12-12 12:20] LABS: BUN Creatinine Ratio 24.5 (6-22); Blood Urea Nitrogen 26 mg/dL (7-17); Calcium 9.4 mg/dL (8.4-10.2); Carbon Dioxide 26 mmol/L (22-32); Chloride 109 mmol/L (98-107); Estimated Glomerular Filt Rate 51.1 mL/min (>60); Glucose 93 mg/dL (80-110); HEMOLYSIS < 15 (0-50); Potassium 4.5 mmol/L (3.4-5.1); Sodium 140 mmol/L (137-145)
== END ==
PROVIDERS: PCP Family Medicine; Referring Provider Family Medicine; Visit Provider Family Medicine
DX: E53.8 Deficiency of other specified B group vitamins (principal); E61.1 Iron deficiency; E66.01 Morbid (severe) obesity due to excess calories; I10 Essential (primary) hypertension
CPT/HCPCS: 36415; 80048; 85025

== ENCOUNTER 2019-12-30 21:16 | Emergency (ER) | payer MEDICARE, BC, SELFPAY ==
[2019-12-30 21:18] VITALS: BP 220/100; PULSE 60; RESP 20; O2SAT 100
--- NOTE | 2019-12-30 21:22 | ED.CHESTPAIN ---
HPI - Chest Pain General Chief Complaint: Hypertension Stated Complaint: hypertension Time Seen by Provider: 12/30/19 21:20 Source: patient and family Mode of arrival: Ambulatory Limitations: no limitations History of Present Illness HPI narrative: The patient is a 59-year-old female with history of coronary artery disease, Prinzmetal's angina and [place] October 2019. She has severe hypertension. She required admission at [facility] October 2019 with STEMI. She had previously undergone cardiac catheterization with left coronary artery stents. In October right stents were placed. She returns Hospital 3 days later with chest pain, found to be extremely hypertensive. Repeat catheterization showed coronary arteries to be stable, no is damage. On her workup was she is noted to have significant calcification of the coronary arteries. She has a history of CHF. Echocardiogram during the hospitalization revealed resting EF of 71%. The patient takes multiple medications for control of her hypertension. She had a previous history assuming renal artery stenosis as a significant part of her hypertension. Review her past records her creatinine has been stable. Repeat evaluation of her kidneys revealed no evidence of renal artery stenosis during hospitalization. She is discharged from the hospital on multiple medications for hypertension control. Amongst as medications she was discharged on hydralazine 25 mg t.i.d.. She noted episodes of dizziness. She felt hydralazine was contributory. However her blood pressure was quite labile, upon follow-up clinic visit with her primary care doctor systolic blood pressure was 113. She discussed the dizziness with her movie projectionist, with persistent hypertension. Her movie projectionist is more concerned about hypertension as the etiology for her dizziness. Her hydralazine was changed to 50 mg b.i.d. the patient has experienced chest pain intermittently in the last 3 days. Pain increased today with more pressure syndrome in her left chest. She arrived with her triage blood pressure 220/100. She is obviously quite anxious. The situation seems consistent with her most recent visit was [facility] where she required a 2nd catheterization. Additionally, she has CHF. She has no dyspnea, orthopnea or peripheral edema. She is quite knowledgeable of our medications, and compliant with medications. She has no recent illness, no headache, fever, sore throat or cough. Her p.m. medications including the p.m. dose of hydralazine were due about 9:00 p.m., she is about 30 minutes late at the time of the blood pressure reading here in the ER. Related Data Home Medications Medication Instructions Recorded Confirmed NITROGLYCERIN (Nitrostat) 0.4 mg SUBLINGUAL PRN #0 10/11/10 12/23/19 Fish Oil 1,000 mg PO BID #0 11/29/12 12/23/19 dabigatran etexilate [Pradaxa] 150 mg BID 01/07/19 12/23/19 isosorbide mononitrate 60 mg See Rx Instructions PO DAILY 03/08/19 12/23/19 tablet,extended release 24 hr Resmed Aircurve 10 CPAP #1 ea 03/20/19 12/23/19 aspirin 81 mg tablet 81 mg PO DAILY 08/08/19 12/23/19 ranolazine 500 mg tablet,extended 500 mg PO BID 09/11/19 12/23/19 release,12 hr clopidogrel 75 mg tablet 75 mg PO DAILY 11/28/19 12/23/19 hydralazine 50 mg tablet 50 mg PO TID 11/28/19 12/23/19 Previous Rx's Medication Instructions Recorded albuterol sulfate 90 mcg/actuation 2 puff INHALATION Q4HP PRN #1 inh 05/23/19 aerosol inhaler carvedilol 25 mg tablet 37.5 mg PO BID #270 tab 08/06/19 furosemide 40 mg tablet 20 mg PO DAILY #30 tab 09/11/19 oseltamivir 75 mg capsule 75 mg PO BID #10 cap 10/17/19 losartan 100 mg tablet 100 mg PO DAILY #90 tab 12/05/[address] #1 ea 12/12/19 Allergies Allergy/AdvReac Type Severity Reaction Status Date / Time Haemophilus B polysaccharide Allergy Intermediate YRS AGO Verified 12/30/19 21:27 conj w CAUSED [From TriHIBit] FEVER, RECENTLY MOUTH SORES adhesive Allergy Mild Verified 12/30/19 21:27 diazepam Allergy Mild OPPOSITE Verified 12/30/19 21:27 EFFECT, BECAME HYPER/INCOMPLIANT--O.K. WITH VERSED diphtheria,pertussis Allergy Mild YRS AGO Verified 12/30/19 21:27 (acellular),te CAUSED [From TriHIBit] FEVER, RECENTLY MOUTH SORES pseudoephedrine Allergy Mild INCREASED Verified 12/30/19 21:27 HEART RATE Sulfa (Sulfonamide Allergy Unknown Verified 12/30/19 21:27 Antibiotics) [SULFA (SULFONAMIDE ANTIBIOTICS)] benazepril [From Lotensin] Allergy angioadema Verified 12/30/19 21:27 Beta-Blockers AdvReac Mild LOW Verified 12/30/19 21:27 (Beta-Adrenergic Bloc TOLERANCE - HR IN 30s - HOSPITALIZED diazepam AdvReac Intermediate anxiety Uncoded 12/23/19 10:09 Review of Systems Review of Systems ROS Unobtainable: All systems reviewed & are unremarkable except as noted in HPI and below Constitutional Constitutional: Denies chills, Denies fever(s), Denies lethargy and Denies weakness Eyes Eyes: Denies change in vision ENT Ears, Nose, Mouth, and Throat: Denies disequilibrium, Denies post nasal drip and Denies sore throat Cardiovascular Cardiovascular: Reports chest pain at rest, Denies dyspnea and Denies dyspnea on exertion Respiratory Respiratory: Denies cough, Denies dyspnea, Denies dyspnea on exertion and Denies wheezing Gastrointestinal Gastrointestinal: Denies abdominal pain, Denies diarrhea, Denies nausea and Denies vomiting Genitourinary Genitourinary: Denies dysuria Musculoskeletal Musculoskeletal: Denies back pain and Denies numbness Integumentary/Breasts Skin/Breast: Denies erythema, Denies rash and Denies wounds Neurologic Neurologic: Denies confusion, Denies numbness, Denies disequilibrium and Denies weakness Psychiatric Psychiatric: Denies anxiety, Denies confusion and Denies depression Allergic/Immunologic Allergic/Immunologic: Denies wheezing Patient History Medical History Angioedema (Chronic) Asthma (Resolved) CAD (coronary artery disease) (Chronic 2013) Coccidioidomycosis (Resolved ~1962) EBV infection (Resolved ~1962) Elevated coronary artery calcium score (Chronic) 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) History of recurrent pneumonia (Resolved) Hypertension (Chronic) Prinzmetal's angina (Chronic 1975) Proteus enteritis (Inactive) Shingles (Resolved 2016) Sleep apnea (Chronic) Statin intolerance (Chronic) Thyroid nodule (Acute) Surgical History History of arthroplasty (Resolved 12/09/12) History of arthroplasty (Resolved 01/20/13) History of cataract removal with insertion of prosthetic lens (Resolved 2014) History of cholecystectomy (Resolved) History of tonsillectomy (Resolved) Stented coronary artery (Resolved 2013) Family History Father Lung cancer Mother Parkinson's disease Breast cancer CAD (coronary artery disease) Social History marital status: household members: friend(s) lives independently: No caregiver/support person: No pets and animals: Yes Smoking Status: Never smoker Smoking Status: Never smoker alcohol intake frequency: 0-2 drinks per day Substance Use Type: does not use Exam Initial Vital Signs Initial Vital Signs: Vital Signs Pulse Rate 60 12/30/19 21:18 Respiratory Rate 20 12/30/19 21:18 Blood Pressure 220/100 H 12/30/19 21:18 Pulse Oximetry 100 12/30/19 21:18 Const General: cooperative, well developed, well groomed, in distress and anxious HENMT Head: normocephalic and atraumatic Face and sinus: sinuses nontender, face symmetric, no sinus tenderness and No dry mucous membranes Mouth: oral mucosae normal and moist mucous membranes Teeth and gingiva: dentition normal Throat: tonsils normal and uvula midline Eyes General: appearance normal, both eyes and all related structures Eyelids: eyelids normal Conjunctivae: conjunctivae normal Sclera: sclerae normal Pupils: PERRL EOM: EOM intact bilaterally Neck Neck: normal visual inspection, trachea midline and No JVD Lymphatic: No lymphedema Chest Chest: normal inspection of the chest Resp Effort & Inspection: normal respiratory effort and able to speak in complete sentences Auscultation: clear to auscultation bilaterally, no rales, no rhonchi and no wheezes Cardio Rate: regular rate Rhythm: regular rhythm Heart Sounds: no click, no gallops, no murmurs and no rubs Pulses: normal peripheral pulses GI Palpation: soft, no hepatosplenomegaly, No guarding, No pulsatile mass and No tender Auscultation: normal bowel sounds Back/Spine/Pelvis Back: No CVA tenderness Cervical Spine: cervical ROM normal Thoracic/Lumbar Spine: thoracic and lumbar spine normal to inspection Skin General: no rashes or lesions noted Neuro General: alert, oriented x3, gait normal and no focal motor deficits Speech: speech normal Extrem General: full ROM, no pedal edema and no calf tenderness Course Course Course Narrative: I gave the patient her p.m. medications, her blood pressure settled into the 140-150 range without further intervention on my part. Her anxiety resolved. Her chest pain resolved. She was feeling much better at time of discharge. Although she is on multiple medications, she feels the blood pressure increases significantly between the hydralazine doses. I talked to the on-call movie projectionist, Dr. Bergeron. She needs to arrange follow-up with her movie projectionist Patrick. In the meantime, after discussion with Dr. Bergeron, I have suggested she take hydralazine 25 mg any time her blood pressure increased to [address] Bergeron will message Dr. Nguyen regarding the needed follow-up. Orders Ordered: ED Orders 12/30/19 21:21 EKG-12 Lead Stat 12/30/19 22:35 Complete Blood Count AUTO DIFF Stat Comprehensive Metabolic Panel Stat Lipase Stat NT-proBNP (BNP-Adult 18+) Stat Partial Thromboplastin Time Stat Prothrombin Time INR Stat Troponin & CK Cardiac Panel Stat Discontinued Medications Metoprolol Tartrate (Lopressor) 12.5 mg PO NOW ONE Stop: 12/31/19 04:08 Vital Signs Vital signs: Vital Signs - 8 hr 12/30/19 21:18 12/30/19 21:23 12/30/19 22:10 Pulse Rate 60 75 72 Respiratory Rate 20 18 19 Blood Pressure 220/100 H Blood Pressure [Left Arm] 223/96 H 171/77 H Pulse Oximetry 100 98 98 12/30/19 23:37 12/31/19 00:09 Pulse Rate 68 67 Respiratory Rate 15 18 Blood Pressure Blood Pressure [Left Arm] 154/67 H 147/67 H Pulse Oximetry 97 97 MDM - Chest Pain Lab Data Result diagrams: 12/30/19 22:35 12/30/19 22:35 Labs: Lab Results 12/30/19 12/30/19 12/30/19 Range/Units 22:35 22:35 22:35 WBC 7.3 (4.5-11.0) X10^3/uL RBC 4.17 (4.0-5.2) X10^6/uL Hgb 12.0 (12.0-16.0) g/dL Hct 35.8 L (36-46) % MCV 85.9 (80-100) fL MCH 28.8 (26-34) PG MCHC 33.5 (30-36) % RDW 13.9 (11.6-14.8) % Plt Count 236 (150-400) X10^3/uL Neut % (Auto) 77.7 H (50-75) % Lymph % (Auto) 13.2 L (25-40) % [place] % (Auto) 6.5 (3-14) % Eos % (Auto) 1.3 L (2-4) % Baso % (Auto) 1.3 (0-2) % Neut # (Auto) 5700 (8982-5330) /uL Lymph # (Auto) 1000 L (5421-7706) /uL [place] # (Auto) 500 (0-900) /uL Eos # (Auto) 100 (0-450) /uL Baso # (Auto) 100 (0-100) /uL PT 13.0 H (10.1-12.7) SECONDS INR 1.1 (0.9-1.3) APTT 68 H (26.4-36.2) SECONDS Sodium 139 (137-145) mmol/L Potassium 4.1 (3.4-5.1) mmol/L Chloride 108 H (98-107) mmol/L Carbon Dioxide 26 (22-32) mmol/L BUN 25 H (7-17) mg/dL Creatinine 1.08 H (0.52-1.04) mg/dL Estimated GFR 50.0 L (>60) mL/min BUN/Creatinine Ratio 23.1 H (6-22) Glucose 115 H (80-110) mg/dL Calcium 9.6 (8.4-10.2) mg/dL Total Bilirubin 0.7 (0.2-1.3) mg/dL AST 20 (14-36) IU/L ALT 16 (<35) IU/L Alkaline Phosphatase 91 (38-126) U/L Total Creatine Kinase 42 (30-135) U/L CK-MB (CK-2) TNP CK-MB (CK-2) Rel Index TNP Troponin I < 0.012 (0.01-0.034) ng/mL NT-Pro-B Natriuret Pep (<125) pg/mL Total Protein 7.1 (6.3-8.2) g/dL Albumin 4.0 (3.5-5.0) g/dL Globulin 3.1 (1.7-4.1) g/dL Albumin/Globulin Ratio 1.3 (1.0-2.8) Lipase 238 (23-300) U/L 12/30/19 Range/Units 22:35 WBC (4.5-11.0) X10^3/uL RBC (4.0-5.2) X10^6/uL Hgb (12.0-16.0) g/dL Hct (36-46) % MCV (80-100) fL MCH (26-34) PG MCHC (30-36) % RDW (11.6-14.8) % Plt Count (150-400) X10^3/uL Neut % (Auto) (50-75) % Lymph % (Auto) (25-40) % [place] % (Auto) (3-14) % Eos % (Auto) (2-4) % Baso % (Auto) (0-2) % Neut # (Auto) (6039-5404) /uL Lymph # (Auto) (1694-4026) /uL [place] # (Auto) (0-900) /uL Eos # (Auto) (0-450) /uL Baso # (Auto) (0-100) /uL PT (10.1-12.7) SECONDS INR (0.9-1.3) APTT (26.4-36.2) SECONDS Sodium (137-145) mmol/L Potassium (3.4-5.1) mmol/L Chloride (98-107) mmol/L Carbon Dioxide (22-32) mmol/L BUN (7-17) mg/dL Creatinine (0.52-1.04) mg/dL Estimated GFR (>60) mL/min BUN/Creatinine Ratio (6-22) Glucose (80-110) mg/dL Calcium (8.4-10.2) mg/dL Total Bilirubin (0.2-1.3) mg/dL AST (14-36) IU/L ALT (<35) IU/L Alkaline Phosphatase (38-126) U/L Total Creatine Kinase (30-135) U/L CK-MB (CK-2) CK-MB (CK-2) Rel Index Troponin I (0.01-0.034) ng/mL NT-Pro-B Natriuret Pep 263 H (<125) pg/mL Total Protein (6.3-8.2) g/dL Albumin (3.5-5.0) g/dL Globulin (1.7-4.1) g/dL Albumin/Globulin Ratio (1.0-2.8) Lipase (23-300) U/L Imaging Data Chest x-ray: My Impression: No acute findings ECG Data Attestation: I personally reviewed and interpreted this ECG as follows: (Normal sinus rhythm, no acute ST T wave changes. Normal intervals. No ectopy.) Discharge Plan Departure Patient Disposition: Home Clinical Impression: Prinzmetal angina Hypertension Qualifiers: Hypertension type: essential hypertension Qualified Code(s): I10 - Essential (primary) hypertension Coronary artery disease Qualifiers: Coronary Disease-Associated Artery/Lesion type: due to calcified coronary lesion Qualified Code(s): I25.10 - Atherosclerotic heart disease of [place] coronary artery without angina pectoris Discharge Date/Time: 12/31/19 00:42 Instructions: DI for High Blood Pressure Activity Restrictions/Additional Instructions: Continue your current medications at current doses. Your blood pressure was 220/100 upon arrival. Your blood pressure improved to 147/67 at discharge. I discussed your situation with Dr. Bergeron, cardiology partner of Dr. Nguyen. As you were explaining your blood pressure is elevated significantly between doses of hydralazine. You should talk to Dr. Nguyen in the morning for further guidance. If your blood pressure increases to 180 systolic despite your current medications, take an extra 25 mg of hydralazine. If you develop increased/severe chest pain beyond what you are comfortable with or difficulty breathing return to the ER. Prescriptions: No Action NITROGLYCERIN (Nitrostat) 0.4 mg Sublingual PRN Qty: 0 RF: 0 Fish Oil 1,000 mg PO BID Qty: 0 RF: 0 carvedilol [Coreg] 25 mg tablet 37.5 mg PO BID Qty: 270 RF: 3 losartan 100 mg tablet 100 mg PO DAILY Qty: 90 RF: 0 isosorbide mononitrate 60 mg tablet extended release 24 hr See Rx Instructions PO DAILY RF: 0 aspirin 81 mg tablet 81 mg PO DAILY RF: 0 oseltamivir [Tamiflu] 75 mg capsule 75 mg PO BID Qty: 10 RF: 0 albuterol sulfate [Ventolin HFA] 90 mcg/actuation HFA aerosol inhaler 2 puff inhalation Q4HP PRN (Reason: shortness of breath or wheezing) Qty: 1 RF: 0 ranolazine [Ranexa] 500 mg tablet extended release 12 hr 500 mg PO BID RF: 0 furosemide 40 mg tablet 20 mg PO DAILY Qty: 30 RF: 0 clopidogrel [Plavix] 75 mg tablet 75 mg PO DAILY RF: 0 hydralazine 50 mg tablet 50 mg PO TID RF: 0 (DME) Disabled Parking Qty: 1 RF: 0 Pradaxa 150 mg Capsule 150 mg BID RF: 0 (DME) Resmed Aircurve 10 CPAP Qty: 1 RF: 0 Referrals: Soledad Vick DO [Primary Care Provider] -
[2019-12-30 21:23] VITALS: BP 223/96; PULSE 75; RESP 18; O2SAT 98
[2019-12-30 22:10] VITALS: BP 171/77; PULSE 72; RESP 19; O2SAT 98
[2019-12-30 22:49] LABS: Add Manual Diff / Slide Review NO; Basophils Absolute Auto 100 /uL (0-100); Basophils Percent Auto 1.3 % (0-2); Eosinophils Absolute Auto 100 /uL (0-450); Eosinophils Percent Auto 1.3 % (2-4); Hematocrit 35.8 % (36-46); Lymphocytes Absolute Auto 1000 /uL (1100-4500); Lymphocytes Percent Auto 13.2 % (25-40); Mean Corpuscular HGB Conc 33.5 % (30-36); Mean Corpuscular Hemoglobin 28.8 PG (26-34); Mean Corpuscular Volume 85.9 fL (80-100); Monocytes Absolute Auto 500 /uL (0-900); Monocytes Percent Auto 6.5 % (3-14); Neutrophils Absolute Auto 5700 /uL (1500-7000); Neutrophils Percent Auto 77.7 % (50-75); Platelet Count 236 X10^3/uL (150-400); Red Blood Cell Count 4.17 X10^6/uL (4.0-5.2); Red Cell Distribution Width 13.9 % (11.6-14.8); White Blood Cell Count 7.3 X10^3/uL (4.5-11.0)
[2019-12-30 22:55] LABS: INR 1.1 (0.9-1.3)
--- NOTE | 2019-12-30 22:56 | PC.NURSE ---
Pt reports BP is elevated to th 200s. States hydralize only works for a couple of hours before blood pressure. increases again to the 200s. Denies any pain at this time.
[2019-12-30 22:58] LABS: PTT Partial Thromboplastin Tim 68 SECONDS (26.4-36.2)
--- NOTE | 2019-12-30 22:59 | PC.NURSE ---
attempted iv start without success. provider okay with just a blood draw at this time
[2019-12-30 23:00] LABS: Alanine Aminotransferase 16 IU/L (<35); Albumin Globulin Ratio 1.3 (1.0-2.8); Alkaline Phosphatase 91 U/L (38-126); Aspartate Aminotransferase 20 IU/L (14-36); BUN Creatinine Ratio 23.1 (6-22); Bilirubin Total 0.7 mg/dL (0.2-1.3); Blood Urea Nitrogen 25 mg/dL (7-17); Calcium 9.6 mg/dL (8.4-10.2); Carbon Dioxide 26 mmol/L (22-32); Chloride 108 mmol/L (98-107); Creatine Kinase 42 U/L (30-135); Globulin 3.1 g/dL (1.7-4.1); Glucose 115 mg/dL (80-110); HEMOLYSIS < 15 (0-50); Lipase 238 U/L (23-300); Potassium 4.1 mmol/L (3.4-5.1); Sodium 139 mmol/L (137-145); Total Protein 7.1 g/dL (6.3-8.2)
[2019-12-30 23:08] LABS: NT-proBNP (BNP-Adult 18+) 263 pg/mL (<125)
[2019-12-30 23:12] LABS: Troponin I < 0.012 ng/mL (0.01-0.034)
[2019-12-30 23:37] VITALS: BP 154/67; PULSE 68; RESP 15; O2SAT 97
[2019-12-31 00:09] VITALS: BP 147/67; PULSE 67; RESP 18; O2SAT 97
--- NOTE | 2019-12-31 06:09 | ED.GENADULT ---
HPI - General Adult General Chief complaint: Hypertension Stated complaint: hypertension Time Seen by Provider: 12/30/19 21:20 Source: patient and family Mode of arrival: Ambulatory Limitations: no limitations History of Present Illness HPI narrative: The patient presents with 3 days of progressive chest discomfort. She has coronary artery disease, history of HI, Prinzmetal's angina, and history of CHF. She was admitted at [place], [place] in October 2019 with a STEMI. She had prior history of left coronary stents, a stent was placed in her right coronary artery. She returned to the ER there 3 days later with recurrence of chest pain. Evaluation was suggestive of another HI. She was extremely hypertensive on admission. Initial chest pain she was diagnosed with hypertensive emergency. The repeat catheterization revealed clean coronaries, a stable heart falling initial catheterization. Echo during his time. Revealed a resting EF of 71%. She had a prior history of renal artery stenosis. She was re-evaluated during admission, it is noted that her creatinine has been stable and there was no ultrasound evidence of renal artery stenosis. She was discharged on multiple medications for hypertension. Of note, she was discharged on hydralazine, the initial doses 25 mg 3 times daily. She had episodes of dizziness. Being fully compliant with the medications, a blood pressure check at her [facility] office was 113 systolic. She consult with her biomedical analytical scientist, Dr. Nguyen. Her biomedical analytical scientist was more concerned that hypertension was causing the dizziness. I believe medications were unchanged other than hydralazine, the hydralazine dose was changed to 50 mg b.i.d. she is used to having chest pain with her angina history. Over the last 3 days she developed seemingly progressive chest pain. She was feeling increased pressure and tightness in her chest. She had started checking blood pressure at home, she was seen elevated blood pressures. She felt that the blood pressure was elevating between the hydralazine doses. She responds well to hydralazine initially following the dose, but the hypertension controlled does not last until the next dose. Along with the pressure she has significant anxiety upon arrival. She denies dyspnea or orthopnea. She has no peripheral edema. She has not been ill. She has no headache, fever, sore throat, cough, or other evidence of acute illness. Her blood pressure was 220/100 upon arrival. Her p.m. medications or genitalia 9:00 p.m., she was about 30 minutes late which he arrives with the stated blood pressure. Related Data Home Medications Medication Instructions Recorded Confirmed NITROGLYCERIN (Nitrostat) 0.4 mg SUBLINGUAL PRN #0 10/11/10 12/23/19 Fish Oil 1,000 mg PO BID #0 11/29/12 12/23/19 dabigatran etexilate [Pradaxa] 150 mg BID 01/07/19 12/23/19 isosorbide mononitrate 60 mg See Rx Instructions PO DAILY 03/08/19 12/23/19 tablet,extended release 24 hr Resmed Aircurve 10 CPAP #1 ea 03/20/19 12/23/19 aspirin 81 mg tablet 81 mg PO DAILY 08/08/19 12/23/19 ranolazine 500 mg tablet,extended 500 mg PO BID 09/11/19 12/23/19 release,12 hr clopidogrel 75 mg tablet 75 mg PO DAILY 11/28/19 12/23/19 hydralazine 50 mg tablet 50 mg PO TID 11/28/19 12/23/19 Previous Rx's Medication Instructions Recorded albuterol sulfate 90 mcg/actuation 2 puff INHALATION Q4HP PRN #1 inh 05/23/19 aerosol inhaler carvedilol 25 mg tablet 37.5 mg PO BID #270 tab 08/06/19 furosemide 40 mg tablet 20 mg PO DAILY #30 tab 09/11/19 oseltamivir 75 mg capsule 75 mg PO BID #10 cap 10/17/19 losartan 100 mg tablet 100 mg PO DAILY #90 tab 12/05/[address] #1 ea 12/12/19 Allergies Allergy/AdvReac Type Severity Reaction Status Date / Time Haemophilus B polysaccharide Allergy Intermediate YRS AGO Verified 12/30/19 21:27 conj w CAUSED [From TriHIBit] FEVER, RECENTLY MOUTH SORES adhesive Allergy Mild Verified 12/30/19 21:27 diazepam Allergy Mild OPPOSITE Verified 12/30/19 21:27 EFFECT, BECAME HYPER/INCOMPLIANT--O.K. WITH VERSED diphtheria,pertussis Allergy Mild YRS AGO Verified 12/30/19 21:27 (acellular),te CAUSED [From TriHIBit] FEVER, RECENTLY MOUTH SORES pseudoephedrine Allergy Mild INCREASED Verified 04/07/20 21:27 HEART RATE Sulfa (Sulfonamide Allergy Unknown Verified 12/30/19 21:27 Antibiotics) [SULFA (SULFONAMIDE ANTIBIOTICS)] benazepril [From Lotensin] Allergy angioadema Verified 12/30/19 21:27 Beta-Blockers AdvReac Mild LOW Verified 12/30/19 21:27 (Beta-Adrenergic Bloc TOLERANCE - HR IN 30s - HOSPITALIZED diazepam AdvReac Intermediate anxiety Uncoded 12/23/19 10:09 Review of Systems Review of Systems ROS Unobtainable: All systems reviewed & are unremarkable except as noted in HPI and below Constitutional Constitutional: Denies chills, Denies fever(s), Denies lethargy and Denies weakness Eyes Eyes: Denies change in vision, Denies eye discharge and Denies loss of vision ENT Ears, Nose, Mouth, and Throat: Denies neck pain, Denies post nasal drip, Denies tinnitus and Denies sore throat Cardiovascular Cardiovascular: Reports chest pain, Denies irregular heart rhythm, Denies lightheadedness, Denies palpitations, Denies dyspnea, Denies dyspnea on exertion and Denies orthopnea Respiratory Respiratory: Denies cough, Denies dyspnea, Denies dyspnea on exertion and Denies wheezing Gastrointestinal Gastrointestinal: Denies abdominal pain, Denies diarrhea, Denies nausea and Denies vomiting Musculoskeletal Musculoskeletal: Denies back pain, Denies myalgias, Denies atrophy and Denies neck pain Integumentary/Breasts Skin/Breast: Denies erythema, Denies rash and Denies wounds Neurologic Neurologic: Denies confusion, Denies loss of vision and Denies weakness Psychiatric Psychiatric: Reports anxiety, Denies confusion and Denies depression Endocrine Endocrine: Denies palpitations Allergic/Immunologic Allergic/Immunologic: Denies wheezing Patient History Medical History Angioedema (Chronic) Asthma (Resolved) CAD (coronary artery disease) (Chronic 2013) Coccidioidomycosis (Resolved ~1962) EBV infection (Resolved ~1962) Elevated coronary artery calcium score (Chronic) 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) History of recurrent pneumonia (Resolved) Hypertension (Chronic) Prinzmetal's angina (Chronic 1975) Proteus enteritis (Inactive) Shingles (Resolved 2016) Sleep apnea (Chronic) Statin intolerance (Chronic) Thyroid nodule (Acute) Surgical History History of arthroplasty (Resolved 12/09/12) History of arthroplasty (Resolved 01/20/13) History of cataract removal with insertion of prosthetic lens (Resolved 2014) History of cholecystectomy (Resolved) History of tonsillectomy (Resolved) Stented coronary artery (Resolved 2013) Family History Father Lung cancer Mother Parkinson's disease Breast cancer CAD (coronary artery disease) Social History marital status: household members: friend(s) lives independently: No caregiver/support person: No pets and animals: Yes Smoking Status: Never smoker Smoking Status: Never smoker alcohol intake frequency: 0-2 drinks per day Substance Use Type: does not use Exam Initial Vital Signs Initial Vital Signs: Vital Signs Pulse Rate 60 12/30/19 21:18 Respiratory Rate 20 12/30/19 21:18 Blood Pressure 220/100 H 12/30/19 21:18 Pulse Oximetry 100 12/30/19 21:18 Const General: cooperative and well developed Nutritional Appearance: well nourished [facility] Head: normocephalic and atraumatic Mouth: oral mucosae normal and moist mucous membranes Throat: posterior oropharynx normal Eyes General: appearance normal, both eyes and all related structures Eyelids: eyelids normal Conjunctivae: conjunctivae normal Sclera: sclerae normal Pupils: PERRL EOM: EOM intact bilaterally Neck Neck: No lymphadenopathy and No JVD Chest Chest: normal inspection of the chest and No tenderness Resp Effort & Inspection: normal respiratory effort and able to speak in complete sentences Auscultation: clear to auscultation bilaterally, no rales, no rhonchi and no wheezes Cardio Rate: regular rate Rhythm: regular rhythm Heart Sounds: S1 normal, S2 normal, no click, no gallops, no murmurs and no rubs Pulses: normal peripheral pulses GI Inspection: non-distended Palpation: soft, no hepatosplenomegaly, No guarding and No tender Auscultation: normal bowel sounds Back/Spine/Pelvis Back: No CVA tenderness Cervical Spine: cervical ROM normal Thoracic/Lumbar Spine: thoracic and lumbar spine normal to inspection Skin General: no rashes or lesions noted and No jaundice Neuro General: alert, oriented x3, gait normal and no focal motor deficits Speech: speech normal Extrem General: full ROM, no pedal edema and no calf tenderness Course Course Course Narrative: The patient was given her regular p.m. medications. No other interventions were required. Her blood pressure improved to 147/67 prior to discharge. Her chest discomfort and her anxiety resolved. The patient is concerned that blood pressure chest pain will occur again as the effect her last hydralazine dose wears off. I discussed the case with Dr. Bergeron, on-call biomedical analytical scientist changes. She is Dr. Nguyen's (the patient's biomedical analytical scientist is) partner. No significant changes in her medications should be made urinary your stay, it is agreed that the patient needs to follow with Dr. Nguyen. The patient has been advised to take hydralazine 25 mg p.o. if her systolic pressure increases greater than 180 in the interim. She should continue all her other regular medications undergo doses. She should return the ER if she has increasing chest pain once again. Orders Ordered: ED Orders 12/30/19 22:35 Complete Blood Count AUTO DIFF Stat Comprehensive Metabolic Panel Stat Lipase Stat NT-proBNP (BNP-Adult 18+) Stat Partial Thromboplastin Time Stat Prothrombin Time INR Stat Troponin & CK Cardiac Panel Stat Discontinued Medications Metoprolol Tartrate (Lopressor) 12.5 mg PO NOW ONE Stop: 12/31/19 04:08 Vital Signs Vital signs: Vital Signs - 8 hr 12/30/19 23:37 12/31/19 00:09 Pulse Rate 68 67 Respiratory Rate 15 18 Blood Pressure [Left Arm] 154/67 H 147/67 H Pulse Oximetry 97 97 Medical Decision Making Medical Records Medical records reviewed: Yes I reviewed the patient's medical records. Lab Data Lab results reviewed: Yes I reviewed the patient's lab results. Result diagrams: 12/30/19 22:35 12/30/19 22:35 Labs: Lab Results 12/30/19 12/30/19 12/30/19 Range/Units 22:35 22:35 22:35 WBC 7.3 (4.5-11.0) X10^3/uL RBC 4.17 (4.0-5.2) X10^6/uL Hgb 12.0 (12.0-16.0) g/dL Hct 35.8 L (36-46) % MCV 85.9 (80-100) fL MCH 28.8 (26-34) PG MCHC 33.5 (30-36) % RDW 13.9 (11.6-14.8) % Plt Count 236 (150-400) X10^3/uL Neut % (Auto) 77.7 H (50-75) % Lymph % (Auto) 13.2 L (25-40) % Winkler % (Auto) 6.5 (3-14) % Eos % (Auto) 1.3 L (2-4) % Baso % (Auto) 1.3 (0-2) % Neut # (Auto) 5700 (0923-5902) /uL Lymph # (Auto) 1000 L (8244-4988) /uL Winkler # (Auto) 500 (0-900) /uL Eos # (Auto) 100 (0-450) /uL Baso # (Auto) 100 (0-100) /uL PT 13.0 H (10.1-12.7) SECONDS INR 1.1 (0.9-1.3) APTT 68 H (26.4-36.2) SECONDS Sodium 139 (137-145) mmol/L Potassium 4.1 (3.4-5.1) mmol/L Chloride 108 H (98-107) mmol/L Carbon Dioxide 26 (22-32) mmol/L BUN 25 H (7-17) mg/dL Creatinine 1.08 H (0.52-1.04) mg/dL Estimated GFR 50.0 L (>60) mL/min BUN/Creatinine Ratio 23.1 H (6-22) Glucose 115 H (80-110) mg/dL Calcium 9.6 (8.4-10.2) mg/dL Total Bilirubin 0.7 (0.2-1.3) mg/dL AST 20 (14-36) IU/L ALT 16 (<35) IU/L Alkaline Phosphatase 91 (38-126) U/L Total Creatine Kinase 42 (30-135) U/L CK-MB (CK-2) TNP CK-MB (CK-2) Rel Index TNP Troponin I < 0.012 (0.01-0.034) ng/mL NT-Pro-B Natriuret Pep (<125) pg/mL Total Protein 7.1 (6.3-8.2) g/dL Albumin 4.0 (3.5-5.0) g/dL Globulin 3.1 (1.7-4.1) g/dL Albumin/Globulin Ratio 1.3 (1.0-2.8) Lipase 238 (23-300) U/L 12/30/19 Range/Units 22:35 WBC (4.5-11.0) X10^3/uL RBC (4.0-5.2) X10^6/uL Hgb (12.0-16.0) g/dL Hct (36-46) % MCV (80-100) fL MCH (26-34) PG MCHC (30-36) % RDW (11.6-14.8) % Plt Count (150-400) X10^3/uL Neut % (Auto) (50-75) % Lymph % (Auto) (25-40) % Winkler % (Auto) (3-14) % Eos % (Auto) (2-4) % Baso % (Auto) (0-2) % Neut # (Auto) (0276-2826) /uL Lymph # (Auto) (0975-4066) /uL Winkler # (Auto) (0-900) /uL Eos # (Auto) (0-450) /uL Baso # (Auto) (0-100) /uL PT (10.1-12.7) SECONDS INR (0.9-1.3) APTT (26.4-36.2) SECONDS Sodium (137-145) mmol/L Potassium (3.4-5.1) mmol/L Chloride (98-107) mmol/L Carbon Dioxide (22-32) mmol/L BUN (7-17) mg/dL Creatinine (0.52-1.04) mg/dL Estimated GFR (>60) mL/min BUN/Creatinine Ratio (6-22) Glucose (80-110) mg/dL Calcium (8.4-10.2) mg/dL Total Bilirubin (0.2-1.3) mg/dL AST (14-36) IU/L ALT (<35) IU/L Alkaline Phosphatase (38-126) U/L Total Creatine Kinase (30-135) U/L CK-MB (CK-2) CK-MB (CK-2) Rel Index Troponin I (0.01-0.034) ng/mL NT-Pro-B Natriuret Pep 263 H (<125) pg/mL Total Protein (6.3-8.2) g/dL Albumin (3.5-5.0) g/dL Globulin (1.7-4.1) g/dL Albumin/Globulin Ratio (1.0-2.8) Lipase (23-300) U/L Imaging Data Chest x-ray: My Impression: Normal study ECG Data Attestation: I personally reviewed and interpreted this ECG as follows: (Normal sinus rhythm. No ectopy. No acute ST T wave changes. Normal intervals. No acute findings) Discharge Plan Departure Patient Disposition: Home Clinical Impression: Prinzmetal angina Hypertension Qualifiers: Hypertension type: essential hypertension Qualified Code(s): I10 - Essential (primary) hypertension Coronary artery disease Qualifiers: Coronary Disease-Associated Artery/Lesion type: due to calcified coronary lesion Qualified Code(s): I25.10 - Atherosclerotic heart disease of [place] coronary artery without angina pectoris Discharge Date/Time: 12/31/19 00:42 Instructions: DI for High Blood Pressure Activity Restrictions/Additional Instructions: Continue your current medications at current doses. Your blood pressure was 220/100 upon arrival. Your blood pressure improved to 147/67 at discharge. I discussed your situation with Dr. Bergeron, cardiology partner of Dr. Nguyen. As you were explaining your blood pressure is elevated significantly between doses of hydralazine. You should talk to Dr. Nguyen in the morning for further guidance. If your blood pressure increases to 180 systolic despite your current medications, take an extra 25 mg of hydralazine. If you develop increased/severe chest pain beyond what you are comfortable with or difficulty breathing return to the ER. Prescriptions: No Action NITROGLYCERIN (Nitrostat) 0.4 mg Sublingual PRN Qty: 0 RF: 0 Fish Oil 1,000 mg PO BID Qty: 0 RF: 0 carvedilol [Coreg] 25 mg tablet 37.5 mg PO BID Qty: 270 RF: 3 losartan 100 mg tablet 100 mg PO DAILY Qty: 90 RF: 0 isosorbide mononitrate 60 mg tablet extended release 24 hr See Rx Instructions PO DAILY RF: 0 aspirin 81 mg tablet 81 mg PO DAILY RF: 0 oseltamivir [Tamiflu] 75 mg capsule 75 mg PO BID Qty: 10 RF: 0 albuterol sulfate [Ventolin HFA] 90 mcg/actuation HFA aerosol inhaler 2 puff inhalation Q4HP PRN (Reason: shortness of breath or wheezing) Qty: 1 RF: 0 ranolazine [Ranexa] 500 mg tablet extended release 12 hr 500 mg PO BID RF: 0 furosemide 40 mg tablet 20 mg PO DAILY Qty: 30 RF: 0 clopidogrel [Plavix] 75 mg tablet 75 mg PO DAILY RF: 0 hydralazine 50 mg tablet 50 mg PO TID RF: 0 (DME) Disabled Parking Qty: 1 RF: 0 Pradaxa 150 mg Capsule 150 mg BID RF: 0 (DME) Resmed Aircurve 10 CPAP Qty: 1 RF: 0 Referrals: Soledad Vick DO [Primary Care Provider] -
== END 2019-12-31 00:42 | disposition home or self-care (01) ==
PROVIDERS: Emergency Provider Emergency Medicine; PCP Family Medicine
DX: I20.1 Angina pectoris with documented spasm (principal); I11.0 Hypertensive heart disease with heart failure; I50.9 Heart failure, unspecified
CPT/HCPCS: 36415; 80053; 82550; 82553; 83690; 83880; 84484; 85025; 85610; 85730; 93005; 99284

== ENCOUNTER → 2020-01-23 11:52 | Outpatient (CLI) | payer MEDICARE, BC, SELFPAY ==
[2020-01-23 13:46] LABS: BUN Creatinine Ratio 24.2 (6-22); Blood Urea Nitrogen 29 mg/dL (7-17); Calcium 9.4 mg/dL (8.4-10.2); Carbon Dioxide 27 mmol/L (22-32); Chloride 107 mmol/L (98-107); Estimated Glomerular Filt Rate 44.3 mL/min (>60); Glucose 98 mg/dL (80-110); HEMOLYSIS < 15 (0-50); Magnesium 2.1 mg/dL (1.6-2.3); Potassium 4.5 mmol/L (3.4-5.1); Sodium 140 mmol/L (137-145)
[2020-01-23 13:50] LABS: NT-proBNP (BNP-Adult 18+) 148 pg/mL (<125)
== END ==
PROVIDERS: PCP Family Medicine; Referring Provider Family Medicine; Visit Provider Family Medicine
DX: I10 Essential (primary) hypertension (principal); I25.10 Atherosclerotic heart disease of native coronary artery without angina pectoris; I25.84 Coronary atherosclerosis due to calcified coronary lesion; R00.1 Bradycardia, unspecified
CPT/HCPCS: 36415; 80048; 83735; 83880

== ENCOUNTER → 2020-02-02 08:32 | Outpatient (CLI) | payer MEDICARE, BC, SELFPAY ==
[2020-02-02 09:37] LABS: Add Manual Diff / Slide Review NO; Basophils Absolute Auto 0 /uL (0-100); Basophils Percent Auto 0.9 % (0-2); Eosinophils Absolute Auto 100 /uL (0-450); Eosinophils Percent Auto 1.8 % (2-4); Hematocrit 37.4 % (36-46); Hemoglobin 12.6 g/dL (12.0-16.0); Lymphocytes Absolute Auto 1000 /uL (1100-4500); Lymphocytes Percent Auto 19.9 % (25-40); Mean Corpuscular HGB Conc 33.7 % (30-36); Mean Corpuscular Hemoglobin 28.5 PG (26-34); Mean Corpuscular Volume 84.6 fL (80-100); Monocytes Absolute Auto 300 /uL (0-900); Monocytes Percent Auto 6.4 % (3-14); Neutrophils Absolute Auto 3600 /uL (1500-7000); Platelet Count 238 X10^3/uL (150-400); Red Blood Cell Count 4.42 X10^6/uL (4.0-5.2); Red Cell Distribution Width 13.7 % (11.6-14.8); White Blood Cell Count 5.1 X10^3/uL (4.5-11.0)
[2020-02-02 09:53] LABS: Alanine Aminotransferase 16 IU/L (<35); Albumin 4.2 g/dL (3.5-5.0); Albumin Globulin Ratio 1.4 (1.0-2.8); Alkaline Phosphatase 89 U/L (38-126); Aspartate Aminotransferase 23 IU/L (14-36); BUN Creatinine Ratio 23.3 (6-22); Bilirubin Total 0.9 mg/dL (0.2-1.3); Blood Urea Nitrogen 27 mg/dL (7-17); Calcium 9.4 mg/dL (8.4-10.2); Carbon Dioxide 24 mmol/L (22-32); Chloride 109 mmol/L (98-107); Estimated Glomerular Filt Rate 46.1 mL/min (>60); Globulin 3.1 g/dL (1.7-4.1); Glucose 97 mg/dL (80-110); HEMOLYSIS < 15 (0-50); Potassium 4.3 mmol/L (3.4-5.1); Sodium 140 mmol/L (137-145); Total Protein 7.3 g/dL (6.3-8.2)
[2020-02-03 18:35] LABS: Free Kappa Lt Chains, Serum 37.5 mg/L (3.3-19.4); Free Lambda Lt Chains,Serum 24.9 mg/L (5.7-26.3)
[2020-02-06 03:07] LABS: Plama Renin, LC/MS/MS 5.386 ng/mL/hr (0.167-5.380)
== END ==
PROVIDERS: PCP Family Medicine; Visit Provider Family Medicine
DX: D47.2 Monoclonal gammopathy (principal); I10 Essential (primary) hypertension
CPT/HCPCS: 36415; 80053; 82088; 83883; 84244; 85025

== ENCOUNTER → 2020-02-04 07:35 | Outpatient (CLI) | payer MEDICARE, BC, SELFPAY ==
[2020-02-06 17:17] LABS: Normetanephrine Total 533 ug/24 hr (82-500); Urine, Metanephrine 79 ug/L (Undefined); Urine, Normetanephrine 567 ug/L (Undefined)
== END ==
PROVIDERS: PCP Family Medicine; Referring Provider Family Medicine; Visit Provider Family Medicine
DX: I10 Essential (primary) hypertension (principal)
CPT/HCPCS: 83835

== ENCOUNTER → 2020-02-13 14:49 | Outpatient (CLI) | payer MEDICARE, BC, SELFPAY ==
[2020-02-13 15:46] LABS: C-Reactive Protein Quant 0.9 mg/dL (<1.0)
[2020-02-13 16:40] LABS: Erythrocyte Sedimentation Rate 29 MM/HR (0-20)
== END ==
PROVIDERS: PCP Family Medicine; Referring Provider Family Medicine; Visit Provider Family Medicine
DX: M31.6 Other giant cell arteritis (principal)
CPT/HCPCS: 36415; 85651; 86140

== ENCOUNTER → 2020-03-17 08:32 | Outpatient (CLI) | payer MEDICARE, BC, SELFPAY ==
[2020-03-17 09:14] LABS: Add Manual Diff / Slide Review NO; Basophils Absolute Auto 0 /uL (0-100); Basophils Percent Auto 0.6 % (0-2); Eosinophils Absolute Auto 100 /uL (0-450); Eosinophils Percent Auto 1.6 % (2-4); Hematocrit 34.6 % (36-46); Hemoglobin 11.7 g/dL (12.0-16.0); Lymphocytes Absolute Auto 900 /uL (1100-4500); Lymphocytes Percent Auto 16.9 % (25-40); Mean Corpuscular HGB Conc 33.9 % (30-36); Mean Corpuscular Hemoglobin 28.5 PG (26-34); Mean Corpuscular Volume 84.3 fL (80-100); Monocytes Absolute Auto 400 /uL (0-900); Monocytes Percent Auto 7.8 % (3-14); Neutrophils Absolute Auto 3900 /uL (1500-7000); Neutrophils Percent Auto 73.1 % (50-75); Platelet Count 239 X10^3/uL (150-400); Red Cell Distribution Width 14.6 % (11.6-14.8); White Blood Cell Count 5.3 X10^3/uL (4.5-11.0)
[2020-03-17 10:02] LABS: BUN Creatinine Ratio 17.7 (6-22); Blood Urea Nitrogen 20 mg/dL (7-17); Calcium 9.2 mg/dL (8.4-10.2); Carbon Dioxide 27 mmol/L (22-32); Chloride 108 mmol/L (98-107); Estimated Glomerular Filt Rate 47.3 mL/min (>60); Glucose 99 mg/dL (80-110); HEMOLYSIS < 15 (0-50); Potassium 4.4 mmol/L (3.4-5.1); Sodium 140 mmol/L (137-145)
[2020-03-18 04:10] LABS: Homocysteine 12.6 umol/L (0.0-19.2)
== END ==
PROVIDERS: PCP Family Medicine; Referring Provider Family Medicine; Visit Provider Family Medicine
DX: E53.8 Deficiency of other specified B group vitamins (principal); E78.5 Hyperlipidemia, unspecified; I10 Essential (primary) hypertension; N18.3 Chronic kidney disease, stage 3 (moderate)
CPT/HCPCS: 36415; 80048; 83090; 83735; 85025

== ENCOUNTER → 2020-04-16 09:08 | Outpatient (CLI) | payer MEDICARE, BC, SELFPAY ==
[2020-04-18 02:40] LABS: COVID19 Sendout Not Detected (Not Detect)
== END ==
PROVIDERS: PCP Family Medicine; Visit Provider Physician Assistant
DX: Z01.818 Encounter for other preprocedural examination (principal)
CPT/HCPCS: 87635

== ENCOUNTER → 2020-04-21 09:19 | Outpatient (CLI) | payer MEDICARE, BC, SELFPAY ==
[2020-04-21 09:40] LABS: Bacteria Urine None Seen; RBC Urine None Seen (0-5/HPF)
[2020-04-21 10:37] LABS: Appearance Urine UA CLEAR; Bilirubin Urine UA NEGATIVE (NEGATIVE); Color Urine UA YELLOW; Glucose Urine UA NEGATIVE (Negative); Ketones Urine UA NEGATIVE (NEGATIVE); Leukocyte Esterase Urine UA 1+ (NEGATIVE); Nitrite Urine UA NEGATIVE (Negative); Occult Blood Urine UA NEGATIVE (Negative); Protein Urine UA NEGATIVE (Negative); Specific Gravity Urine UA 1.025 (1.000-1.035); Urobilinogen Urine UA 0.2 E.U./dL (0.2)
[2020-04-21 10:41] LABS: Add Manual Diff / Slide Review NO; Basophils Absolute Auto 0 /uL (0-100); Basophils Percent Auto 0.5 % (0-2); Eosinophils Absolute Auto 200 /uL (0-450); Eosinophils Percent Auto 2.8 % (2-4); Hematocrit 34.4 % (36-46); Hemoglobin 11.4 g/dL (12.0-16.0); Lymphocytes Absolute Auto 800 /uL (1100-4500); Lymphocytes Percent Auto 15.1 % (25-40); Mean Corpuscular HGB Conc 33.2 % (30-36); Mean Corpuscular Hemoglobin 27.9 PG (26-34); Monocytes Absolute Auto 400 /uL (0-900); Neutrophils Absolute Auto 4000 /uL (1500-7000); Neutrophils Percent Auto 74.6 % (50-75); Platelet Count 244 X10^3/uL (150-400); Red Blood Cell Count 4.09 X10^6/uL (4.0-5.2); Red Cell Distribution Width 15.1 % (11.6-14.8); White Blood Cell Count 5.3 X10^3/uL (4.5-11.0)
[2020-04-21 10:55] LABS: HEMOLYSIS < 15 (0-50); Iron 61 ug/dL (37-170)
[2020-04-21 11:00] LABS: Culture Indicated Urine Cult Not Indicated; Squamous Epithelial Cell Urine 10-30 /HPF (0-5/HPF); WBC Urine 5-10/HPF (0-5/HPF)
[2020-04-21 11:01] LABS: Alanine Aminotransferase 17 IU/L (<35); Albumin 3.7 g/dL (3.5-5.0); Albumin Globulin Ratio 1.4 (1.0-2.8); Alkaline Phosphatase 83 U/L (38-126); Aspartate Aminotransferase 22 IU/L (14-36); BUN Creatinine Ratio 15.3 (6-22); Bilirubin Total 1.2 mg/dL (0.2-1.3); Blood Urea Nitrogen 15 mg/dL (7-17); Carbon Dioxide 26 mmol/L (22-32); Chloride 108 mmol/L (98-107); Estimated Glomerular Filt Rate 55.8 mL/min (>60); Globulin 2.6 g/dL (1.7-4.1); Glucose 91 mg/dL (80-110); HEMOLYSIS < 15 (0-50); Potassium 4.2 mmol/L (3.4-5.1); Sodium 140 mmol/L (137-145); Total Protein 6.3 g/dL (6.3-8.2)
[2020-04-21 11:05] LABS: Percent Iron Saturation 22 % (15-50); Total Iron Binding Capacity 282 ug/dL (265-497); Transferrin 212 mg/dL (206-381)
[2020-04-21 11:31] LABS: Creatinine Urine Random 147.2 mg/dL
[2020-04-21 11:36] LABS: Microalbumi Creatinin Ratio Ur 23.7 ug/mg CR (<30); Microalbumin Urine Random 3.5 mg/dL (0-1.6)
[2020-04-21 11:52] LABS: Ferritin 77 ng/mL (11-264)
== END ==
PROVIDERS: PCP Family Medicine; Referring Provider Internal Medicine; Visit Provider Internal Medicine
DX: N18.3 Chronic kidney disease, stage 3 (moderate) (principal); Z86.2 Personal history of diseases of the blood and blood-forming organs and certain disorders involving the immune mechanism
CPT/HCPCS: 36415; 80053; 81001; 82043; 82570; 82728; 83540; 83550; 85025

== ENCOUNTER → 2020-06-01 11:23 | Outpatient (CLI) | payer MEDICARE, BC, SELFPAY ==
--- NOTE | 2020-06-01 11:24 | DI.US.S_ITS ---
PROCEDURE: US THYROID INDICATIONS: f/u nodule TECHNIQUE: Real-time scanning was performed of the thyroid gland, with image documentation. COMPARISON: [facility], [place], US THYROID, 06/24/2019, 9:08. FINDINGS: Right: Thyroid lobe measures 4.0 x 1.6 x 2.0 cm, and is diffusely heterogeneous in echotexture. Left: Thyroid lobe measures 4.7 x 2.0 x 2.4 cm, and is diffusely heterogeneous in echotexture. 5 mm inferior pole calcification. Isthmus: 5.0 mm thick. Nodule number: 1 Location: Right mid Size: Unchanged at 1.1 x 0.6 x 0.6 cm. Composition: Solid Echogenicity: Hypoechoic Shape: wider than tall. Margins: Smooth Echogenic foci: Internal punctate echogenic foci Total points: 7 ACR TI-RADS category: Highly suspicious Nodule number: 2 Location: Left superior Size: Unchanged 0.9 x 0.8 x 0.9 cm. Composition: Solid Echogenicity: Hyperechoic Shape: wider than tall. Margins: Smooth Echogenic foci: None Total points: 3 ACR TI-RADS category: Mildly suspicious Nodule number: 3 Location: Left mid Size: Unchanged 0.9 x 0.8 x 0.9 cm. Composition: Solid Echogenicity: Hypoechoic Shape: wider than tall. Margins: Smooth Echogenic foci: Peripheral calcifications Total points: 6 ACR TI-RADS category: Moderately suspicious Nodule number: 4 Location: Left inferior Size: Decreased at 1.3 x 0.9 x 1.3 cm. Composition: Solid Echogenicity: Hyperechoic Shape: wider than tall. Margins: Smooth Echogenic foci: None Total points: 3 ACR TI-RADS category: Mildly suspicious IMPRESSION: Bilateral thyroid nodules as above which appears stable compared to prior exam. ACR TI-RADS definitions and recommendations: TI-RADS 1 (benign): 0 points. FNA not needed. TI-RADS 2 (not suspicious): 2 points. FNA not needed. TI-RADS 3 (mildly suspicious): 3 points. * FNA if 2.5 cm or larger, follow up if 1.5 cm or larger (at 1, 3, and 5 years). TI-RADS 4 (moderately suspicious): 4-6 points. * FNA if 1.5 cm or larger, follow up if 1 cm or larger (at 1, 2, 3, and 5 years). TI-RADS 5 (highly suspicious): 7 points or more. * FNA if 1 cm or larger, follow up if 0.5 cm or larger (every year for 5 years). Dictated by: Chepe PANTOJA Interpreted: Bal Jaime MD on 06/02/2020 at 13:47 Approved by: Bal Jaime M.D. on 06/02/2020 at 16:26
== END ==
PROVIDERS: PCP Family Medicine; Referring Provider Internal Medicine; Visit Provider Internal Medicine
DX: E04.2 Nontoxic multinodular goiter (principal); D47.2 Monoclonal gammopathy; E61.1 Iron deficiency
CPT/HCPCS: 76536

== ENCOUNTER → 2020-06-14 09:25 | Outpatient (CLI) | payer MEDICARE, BC, SELFPAY ==
[2020-06-14 10:20] LABS: Add Manual Diff / Slide Review NO; Basophils Absolute Auto 0 /uL (0-100); Basophils Percent Auto 0.6 % (0-2); Eosinophils Absolute Auto 100 /uL (0-450); Eosinophils Percent Auto 1.5 % (2-4); Hematocrit 37.9 % (36-46); Hemoglobin 12.6 g/dL (12.0-16.0); Lymphocytes Absolute Auto 800 /uL (1100-4500); Lymphocytes Percent Auto 14.2 % (25-40); Mean Corpuscular HGB Conc 33.2 % (30-36); Mean Corpuscular Hemoglobin 28.1 PG (26-34); Mean Corpuscular Volume 84.5 fL (80-100); Monocytes Absolute Auto 400 /uL (0-900); Monocytes Percent Auto 6.5 % (3-14); Neutrophils Absolute Auto 4300 /uL (1500-7000); Neutrophils Percent Auto 77.2 % (50-75); Platelet Count 217 X10^3/uL (150-400); Red Blood Cell Count 4.48 X10^6/uL (4.0-5.2); Red Cell Distribution Width 14.5 % (11.6-14.8); White Blood Cell Count 5.6 X10^3/uL (4.5-11.0)
[2020-06-14 10:22] LABS: Alanine Aminotransferase 15 IU/L (<35); Albumin 4.2 g/dL (3.5-5.0); Albumin Globulin Ratio 1.4 (1.0-2.8); Alkaline Phosphatase 82 U/L (38-126); Aspartate Aminotransferase 21 IU/L (14-36); BUN Creatinine Ratio 17.6 (6-22); Bilirubin Total 0.8 mg/dL (0.2-1.3); Blood Urea Nitrogen 18 mg/dL (7-17); Calcium 9.3 mg/dL (8.4-10.2); Carbon Dioxide 26 mmol/L (22-32); Chloride 109 mmol/L (98-107); Estimated Glomerular Filt Rate 53.3 mL/min (>60); Globulin 3.1 g/dL (1.7-4.1); Glucose 99 mg/dL (80-110); HEMOLYSIS 19 (0-50); Potassium 4.5 mmol/L (3.4-5.1); Sodium 143 mmol/L (137-145); Total Protein 7.3 g/dL (6.3-8.2)
[2020-06-14 10:33] LABS: Troponin I < 0.012 ng/mL (0.01-0.034)
[2020-06-15 16:31] LABS: Free Kappa Lt Chains, Serum 31.5 mg/L (3.3-19.4); Free Lambda Lt Chains,Serum 17.8 mg/L (5.7-26.3)
[2020-06-16 14:36] LABS: Albumin 3.7 g/dL (2.9-4.4); Alpha 1 Globulin 0.3 g/dL (0.0-0.4); Alpha 2 Globulin 0.7 g/dL (0.4-1.0); Gamma Globulin 0.8 g/dL (0.4-1.8); Protein, Total 6.5 g/dL (6.0-8.5)
== END ==
PROVIDERS: Internal Medicine; PCP Family Medicine; Referring Provider Family Medicine; Visit Provider Family Medicine
DX: D47.2 Monoclonal gammopathy (principal); I10 Essential (primary) hypertension; I20.9 Angina pectoris, unspecified
CPT/HCPCS: 36415; 80053; 83883; 84155; 84165; 84484; 85025

== ENCOUNTER 2020-07-14 08:30 | Outpatient (RCR) | payer MEDICARE, BC, SELFPAY | END 2020-07-14 10:30 | LOC: CAR 08:30 | PROVIDERS: PCP Family Medicine; Referring Provider Nurse Practitioner Gerontology; Visit Provider Nurse Practitioner Gerontology | DX: Z95.5 Presence of coronary angioplasty implant and graft (principal) | CPT/HCPCS: 93798 ==

== ENCOUNTER → 2020-10-19 09:42 | Outpatient (CLI) | payer MEDICARE, BC, SELFPAY ==
[2020-10-19] MEDS: COVID-19 VACC #1, MRNA(MOD) 100 MCG/0.5 ML VIAL IM (09:53)
== END ==
PROVIDERS: PCP Family Medicine; Visit Provider Internal Medicine
DX: Z23 Encounter for immunization (principal)
CPT/HCPCS: 0011A; 91301

== ENCOUNTER 2020-11-02 13:19 | Emergency (ER) | payer MEDICARE, BC, SELFPAY ==
[2020-11-02] VITALS (28 sets, daily range): BP systolic 126–197; BP diastolic 60–98; PULSE 55–66; RESP 13–23; TEMP 36.3–36.7; O2SAT 95–100; BMI 41.5
--- NOTE | 2020-11-02 13:50 | ED_ITS ---
HPI - Chest Pain <Jaye Rosado DO - Last Filed: 11/03/20 07:16> General Chief Complaint: Chest Pain Stated Complaint: CHEST PAIN SINCE THIS AM Time Seen by Provider: 11/02/20 13:22 Source: patient and family Limitations: no limitations History of Present Illness HPI narrative: This is a 70-year-old female comes emergency department with complaint of chest pain. Patient states she has known coronary artery disease with 4 stents the most recent was placed in October 2019, she had a heart attack 2 days after this, had repeat angiography which showed no occlusion of her stent. She also has known Prinzmetal's angina. Patient states that she has had chest pain all morning, she states it started at 6:15 a.m. it has been constant but waxing and waning in intensity typically between a 4 and 8/10. But has never resolved. She states she typically has angina on a frequent basis, she has tried her own nitro today 3 times without resolution. The most recent was at 11:30 a.m.. She states today she was concerned because her episodes will typically last 15-20 minutes sometimes 60 minutes but not typically for 8 hours. Patient states that she noted her blood pressure is also quite high. Her goal is typically 130s range. She denies any shortness of breath no lightheadedness or syncope. No sweats but she has felt cold, she denies any nausea no vomiting no issues with bowel movements or urination. She denies any swelling of her extremities. She states she typically uses nitro sublingual 3-4 times weekly and will often use it 2 or 3 times a day on those days but not in quick succession like today. She does take Imdur, amlodipine, Diovan, carvedilol, Pradaxa, Plavix and Ranexa. She has had a history of knee replacement but no recent surgeries. No tobacco, alcohol or recreational drugs. She follows with Dr. Nguyen at [facility] in [place]. PCP is Dr. Vick. Related Data Home Medications Medication Instructions Recorded Confirmed NITROGLYCERIN (Nitrostat) 0.4 mg SUBLINGUAL PRN #0 10/11/10 10/13/20 Fish Oil 1,000 mg PO BID #0 11/29/12 10/13/20 dabigatran etexilate [Pradaxa] 150 mg BID 01/07/19 10/13/20 isosorbide mononitrate 60 mg See Rx Instructions PO DAILY 03/08/19 10/13/20 tablet,extended release 24 hr Resmed Aircurve 10 CPAP #1 ea 03/20/19 10/13/20 ranolazine 500 mg tablet,extended 500 mg PO BID 09/11/19 10/13/20 release,12 hr clopidogrel 75 mg tablet 75 mg PO DAILY 11/28/19 10/13/20 amlodipine 5 mg tablet 5 mg PO DAILY tab 04/23/20 10/13/20 furosemide 40 mg tablet 20 mg PO DAILY tab 04/23/20 10/13/20 Previous Rx's Medication Instructions Recorded albuterol sulfate 90 mcg/actuation 2 puff INHALATION Q4HP PRN #1 inh 05/23/19 aerosol inhaler oseltamivir 75 mg capsule 75 mg PO BID #10 cap 10/17/19 Disabled [address]ing #1 ea 12/12/19 Diovan 160 mg tablet 160 mg PO BID #180 tab NS 06/14/20 carvedilol 25 mg tablet 37.5 mg PO BID #270 tab 08/23/20 carisoprodol 350 mg tablet 350 mg PO BEDTIME PRN #30 tab 10/20/20 furosemide [Lasix] 40 mg PO DAILY #3 tab 11/02/20 Allergies Allergy/AdvReac Type Severity Reaction Status Date / Time benazepril [From Lotensin] Allergy Severe angioadema Verified 10/19/20 09:55 adhesive Allergy Mild Verified 10/13/20 08:27 Sulfa (Sulfonamide Allergy Unknown Verified 10/13/20 08:27 Antibiotics) [SULFA (SULFONAMIDE ANTIBIOTICS)] Haemophilus B polysaccharide AdvReac Intermediate YRS AGO Verified 10/19/20 09:55 conj w CAUSED [From TriHIBit] FEVER, RECENTLY MOUTH SORES Beta-Blockers AdvReac Mild LOW Verified 10/13/20 08:27 (Beta-Adrenergic Bloc TOLERANCE - HR IN 30s - HOSPITALIZED diazepam AdvReac Mild OPPOSITE Verified 10/19/20 09:55 EFFECT, BECAME HYPER/INCOMPLIANT--O.K. WITH VERSED diphtheria,pertussis AdvReac Mild YRS AGO Verified 10/19/20 09:55 (acellular),te CAUSED [From TriHIBit] FEVER, RECENTLY MOUTH SORES pseudoephedrine AdvReac Mild INCREASED Verified 10/19/20 09:55 HEART RATE Review of Systems <Jaye Rosado DO - Last Filed: 11/03/20 07:16> Review of Systems ROS Unobtainable: All systems reviewed & are unremarkable except as noted in HPI and below Patient History <Jaye Rosado DO - Last Filed: 11/03/20 07:16> Medical History Angioedema Asthma CAD (coronary artery disease) (1979) Coccidioidomycosis (~1962) Dyslipidemia EBV infection (~1962) Elevated coronary artery calcium score Heterozygous MTHFR mutation [id number] History of recurrent pneumonia Hypertension Macular degeneration, age related, nonexudative Osteopenia of femoral neck, bilateral (~02/2019) Paroxysmal atrial fibrillation Pressure ulcer, buttock, right, unstageable Prinzmetal's angina (1975) Proteus enteritis (~2018) Renal artery atherosclerosis (09/22/11) Severe obstructive sleep apnea-hypopnea syndrome (10/22/15) Shingles (2016) Statin intolerance Systemic lupus erythematosus Thyroid nodule Surgical History H/O colonoscopy with polypectomy (~04/2020) History of arthroplasty (12/09/12) History of arthroplasty (01/20/13) History of cataract removal with insertion of prosthetic lens (2014) History of cholecystectomy History of tonsillectomy Stented coronary artery (2013) Family History Father Lung cancer Mother Parkinson's disease Breast cancer CAD (coronary artery disease) Social History marital status: household members: friend(s) lives independently: No caregiver/support person: No pets and animals: Yes Smoking Status: Never smoker Smoking Status: Never smoker alcohol intake frequency: 0-2 drinks per day Substance Use Type: does not use Exam <Jaye Rosado DO - Last Filed: 11/03/20 07:16> Narrative Exam Narrative: GENERAL: Alert and oriented x three, obese, well-appearing female in mild distress. HEENT: Head normocephalic, atraumatic, EOMI, pupils reactive, face symmetric, moist mucous membranes NECK: Supple, full range of motion CARDIOVASCULAR: Regular rate and rhythm without murmurs, rubs or gallops. RESPIRATORY: Breath sounds equal bilaterally, no wheezes rales or rhonchi. ABDOMEN: Soft, nontender. Normoactive bowel sounds all 4 quadrants. No guarding or rebound, rigidity, no mass : No CVA tenderness EXTREMITIES: Normal range of motion, no clubbing or edema. Neurovascularly intact NEUROLOGICAL: Cranial nerves II through XII grossly intact. Moving all extremities SKIN: Warm, dry, no petechiae, no rashes or lesions. Initial Vital Signs Initial Vital Signs: Vital Signs Temperature 97.4 F L 11/02/20 13:20 Pulse Rate 65 11/02/20 13:20 Respiratory Rate 18 11/02/20 13:20 Blood Pressure 186/84 H 11/02/20 13:20 Pulse Oximetry 100 11/02/20 13:20 <Poly Samuel MD - Last Filed: 11/02/20 20:25> Initial Vital Signs Initial Vital Signs: Vital Signs Temperature 97.4 F L 11/02/20 13:20 Pulse Rate 65 11/02/20 13:20 Respiratory Rate 18 11/02/20 13:20 Blood Pressure 186/84 H 11/02/20 13:20 Pulse Oximetry 100 11/02/20 13:20 Course <Jaye Rosado DO - Last Filed: 11/03/20 07:16> Orders Ordered: Discontinued Medications Acetaminophen (Acetaminophen 325 Mg Tablet) 325 mg PO Q6HR PRN PRN Reason: Fever/Mild Pain (1-3) Last Admin: 11/02/20 19:33 Dose: 325 mg Documented by: BREONNA Amlodipine Besylate (Amlodipine 5 Mg Tablet) 5 mg PO NOW ONE Stop: 11/02/20 18:30 Last Admin: 11/02/20 18:37 Dose: 5 mg Documented by: AUNDREA Carvedilol (Carvedilol 12.5 Mg Tablet) 37.5 mg PO NOW ONE Stop: 11/02/20 18:30 Last Admin: 11/02/20 18:38 Dose: 37.5 mg Documented by: AUNDREA Furosemide (Furosemide 40 Mg/4 Ml Vial) 40 mg IV NOW ONE Stop: 11/02/20 17:14 Last Admin: 11/02/20 17:37 Dose: 40 mg Documented by: AUNDREA Hydromorphone HCl (Hydromorphone 0.5 Mg Inj) 0.5 mg IV NOW ONE Stop: 11/02/20 17:26 Last Admin: 11/02/20 17:37 Dose: 0.5 mg Documented by: AUNDREA Isosorbide Mononitrate (Isosorbide Mononitrate Er 30 Mg Tablet) 60 mg PO NOW ONE Stop: 11/02/20 18:31 Last Admin: 11/02/20 18:38 Dose: 60 mg Documented by: AUNDREA Metoprolol Tartrate (Metoprolol Ir 25 Mg Tablet) 12.5 mg PO NOW ONE Stop: 11/02/20 15:14 Last Admin: 11/02/20 15:24 Dose: 12.5 mg Documented by: AUNDREA Metoprolol Tartrate (Metoprolol Tartrate 5 Mg/5 Ml Inj) 5 mg IV NOW ONE Stop: 11/02/20 17:26 Last Admin: 11/02/20 17:38 Dose: Not Given Documented by: AUNDREA Nitroglycerin (Nitroglycerin 0.4 Mg Sl Tab) 0.4 mg SL [id number] PRN PRN Reason: Chest Pain Valsartan (Valsartan 80 Mg Tablet) 160 mg PO NOW ONE Stop: 11/02/20 18:29 Last Admin: 11/02/20 18:38 Dose: 160 mg Documented by: AUNDREA Reevaluation(s) Reevaluation #1: CP improving with nitro but still slightly present, defers any morphine or narcotics for pain control. Patient's blood pressure is improved but still a little elevated. She did seem to respond metoprolol in her last visit and ordered today at same dose. Time: 15:09 Reevaluation #2: 12/01. Time: 16:30 Consultations Consultation #1: Dr. Nguyen, recommends repeat troponin is still negative patient can be discharged home. He would recommend diuretic, plan to improve your blood pressure. If patient continues to have CP but with negative second troponin and no EKG changes okay to discharge home. Time: 17:26 Vital Signs Vital signs: Vital Signs - 8 hr 11/02/20 13:20 11/02/20 14:20 11/02/20 14:21 Temperature 97.4 F L Pulse Rate 65 63 62 Respiratory Rate 18 21 19 Blood Pressure 186/84 H 168/74 H Pulse Oximetry 100 99 98 11/02/20 14:30 11/02/20 14:45 11/02/20 15:00 Temperature Pulse Rate 63 60 59 L Respiratory Rate 17 19 17 Blood Pressure 154/71 H 147/81 H 164/74 H Pulse Oximetry 95 96 97 11/02/20 15:15 11/02/20 15:30 11/02/20 15:45 Temperature Pulse Rate 58 L 58 L 66 Respiratory Rate 17 19 23 Blood Pressure 160/77 H 155/77 H 154/77 H Pulse Oximetry 97 97 98 11/02/20 16:00 11/02/20 16:15 11/02/20 16:30 Temperature Pulse Rate 57 L 55 L 56 L Respiratory Rate 15 15 18 Blood Pressure 161/78 H 150/70 H 149/72 H Pulse Oximetry 98 98 97 11/02/20 16:45 11/02/20 17:00 11/02/20 17:15 Temperature Pulse Rate 57 L 57 L 57 L Respiratory Rate 18 16 16 Blood Pressure 159/74 H 154/79 H 183/76 H Pulse Oximetry 98 97 98 11/02/20 17:30 11/02/20 17:43 11/02/20 17:46 Temperature Pulse Rate 58 L 60 63 Respiratory Rate 16 13 20 Blood Pressure 170/78 H 181/87 H Pulse Oximetry 98 98 98 11/02/20 17:48 11/02/20 18:20 11/02/20 18:30 Temperature Pulse Rate 58 L 59 L Respiratory Rate 14 17 19 Blood Pressure 195/84 H 182/84 H Pulse Oximetry 98 97 96 11/02/20 18:40 11/02/20 19:00 11/02/20 19:23 Temperature Pulse Rate 55 L 56 L 61 Respiratory Rate 18 15 16 Blood Pressure 194/91 H 197/98 H 174/77 H Pulse Oximetry 98 97 98 11/02/20 19:30 11/02/20 19:54 11/02/20 19:57 Temperature Pulse Rate 57 L 57 L 55 L Respiratory Rate 15 17 15 Blood Pressure 129/61 126/60 Pulse Oximetry 97 98 98 <Poly Samuel MD - Last Filed: 11/02/20 20:25> Orders Ordered: Discontinued Medications Acetaminophen (Acetaminophen 325 Mg Tablet) 325 mg PO Q6HR PRN PRN Reason: Fever/Mild Pain (1-3) Last Admin: 11/02/20 19:33 Dose: 325 mg Documented by: BREONNA Amlodipine Besylate (Amlodipine 5 Mg Tablet) 5 mg PO NOW ONE Stop: 11/02/20 18:30 Last Admin: 11/02/20 18:37 Dose: 5 mg Documented by: AUNDREA Carvedilol (Carvedilol 12.5 Mg Tablet) 37.5 mg PO NOW ONE Stop: 11/02/20 18:30 Last Admin: 11/02/20 18:38 Dose: 37.5 mg Documented by: AUNDREA Furosemide (Furosemide 40 Mg/4 Ml Vial) 40 mg IV NOW ONE Stop: 11/02/20 17:14 Last Admin: 11/02/20 17:37 Dose: 40 mg Documented by: AUNDREA Hydromorphone HCl (Hydromorphone 0.5 Mg Inj) 0.5 mg IV NOW ONE Stop: 11/02/20 17:26 Last Admin: 11/02/20 17:37 Dose: 0.5 mg Documented by: AUNDREA Isosorbide Mononitrate (Isosorbide Mononitrate Er 30 Mg Tablet) 60 mg PO NOW ONE Stop: 11/02/20 18:31 Last Admin: 11/02/20 18:38 Dose: 60 mg Documented by: AUNDREA Metoprolol Tartrate (Metoprolol Ir 25 Mg Tablet) 12.5 mg PO NOW ONE Stop: 11/02/20 15:14 Last Admin: 11/02/20 15:24 Dose: 12.5 mg Documented by: AUNDREA Metoprolol Tartrate (Metoprolol Tartrate 5 Mg/5 Ml Inj) 5 mg IV NOW ONE Stop: 11/02/20 17:26 Last Admin: 11/02/20 17:38 Dose: Not Given Documented by: AUNDREA Nitroglycerin (Nitroglycerin 0.4 Mg Sl Tab) 0.4 mg SL [id number] PRN PRN Reason: Chest Pain Valsartan (Valsartan 80 Mg Tablet) 160 mg PO NOW ONE Stop: 11/02/20 18:29 Last Admin: 11/02/20 18:38 Dose: 160 mg Documented by: AUMELODY Vital Signs Vital signs: Vital Signs - 8 hr 11/02/20 13:20 11/02/20 14:20 11/02/20 14:21 Temperature 97.4 F L Pulse Rate 65 63 62 Respiratory Rate 18 21 19 Blood Pressure 186/84 H 168/74 H Pulse Oximetry 100 99 98 11/02/20 14:30 11/02/20 14:45 11/02/20 15:00 Temperature Pulse Rate 63 60 59 L Respiratory Rate 17 19 17 Blood Pressure 154/71 H 147/81 H 164/74 H Pulse Oximetry 95 96 97 11/02/20 15:15 11/02/20 15:30 11/02/20 15:45 Temperature Pulse Rate 58 L 58 L 66 Respiratory Rate 17 19 23 Blood Pressure 160/77 H 155/77 H 154/77 H Pulse Oximetry 97 97 98 11/02/20 16:00 11/02/20 16:15 11/02/20 16:30 Temperature Pulse Rate 57 L 55 L 56 L Respiratory Rate 15 15 18 Blood Pressure 161/78 H 150/70 H 149/72 H Pulse Oximetry 98 98 97 11/02/20 16:45 11/02/20 17:00 11/02/20 17:15 Temperature Pulse Rate 57 L 57 L 57 L Respiratory Rate 18 16 16 Blood Pressure 159/74 H 154/79 H 183/76 H Pulse Oximetry 98 97 98 11/02/20 17:30 11/02/20 17:43 11/02/20 17:46 Temperature Pulse Rate 58 L 60 63 Respiratory Rate 16 13 20 Blood Pressure 170/78 H 181/87 H Pulse Oximetry 98 98 98 11/02/20 17:48 11/02/20 18:20 11/02/20 18:30 Temperature Pulse Rate 58 L 59 L Respiratory Rate 14 17 19 Blood Pressure 195/84 H 182/84 H Pulse Oximetry 98 97 96 11/02/20 18:40 11/02/20 19:00 11/02/20 19:23 Temperature Pulse Rate 55 L 56 L 61 Respiratory Rate 18 15 16 Blood Pressure 194/91 H 197/98 H 174/77 H Pulse Oximetry 98 97 98 11/02/20 19:30 11/02/20 19:54 11/02/20 19:57 Temperature Pulse Rate 57 L 57 L 55 L Respiratory Rate 15 17 15 Blood Pressure 129/61 126/60 Pulse Oximetry 97 98 98 MDM - Chest Pain <Jaye Rosado DO - Last Filed: 11/03/20 07:16> Lab Data Attestation: I reviewed the patient's lab results. Result diagrams: 11/02/20 13:53 11/02/20 13:53 Labs: Lab Results 11/02/20 11/02/20 11/02/20 Range/Units 13:53 13:53 13:53 WBC 4.7 (4.5-11.0) X10^3/uL RBC 4.56 (4.0-5.2) X10^6/uL Hgb 12.4 (12.0-16.0) g/dL Hct 37.8 (36-46) % MCV 82.9 (80-100) fL MCH 27.2 (26-34) PG MCHC 32.8 (30-36) % RDW 14.5 (11.6-14.8) % Plt Count 239 (150-400) X10^3/uL Neut % (Auto) 72.6 (50-75) % Lymph % (Auto) 18.9 L (25-40) % [place] % (Auto) 6.3 (3-14) % Eos % (Auto) 1.4 L (2-4) % Baso % (Auto) 0.8 (0-2) % Neut # (Auto) 3400 (3729-3742) /uL Lymph # (Auto) 900 L (6645-8448) /uL [place] # (Auto) 300 (0-900) /uL Eos # (Auto) 100 (0-450) /uL Baso # (Auto) 0 (0-100) /uL Sodium 141 (137-145) mmol/L Potassium 4.0 (3.4-5.1) mmol/L Chloride 109 H (98-107) mmol/L Carbon Dioxide 29 (22-32) mmol/L BUN 16 (7-17) mg/dL Creatinine 0.98 (0.52-1.04) mg/dL Estimated GFR 55.8 L (>60) mL/min BUN/Creatinine Ratio 16.3 (6-22) Glucose 120 H (80-110) mg/dL Calcium 9.5 (8.4-10.2) mg/dL Total Bilirubin 0.8 (0.2-1.3) mg/dL AST 22 (14-36) IU/L ALT 15 (<35) IU/L Alkaline Phosphatase 75 (38-126) U/L Total Creatine Kinase 58 (30-135) U/L CK-MB (CK-2) TNP CK-MB (CK-2) Rel Index TNP Troponin I < 0.012 (0.01-0.034) ng/mL NT-Pro-B Natriuret Pep (<125) pg/mL Total Protein 6.9 (6.3-8.2) g/dL Albumin 4.0 (3.5-5.0) g/dL Globulin 2.9 (1.7-4.1) g/dL Albumin/Globulin Ratio 1.4 (1.0-2.8) TSH (0.47-4.68) uIU/mL 11/02/20 11/02/20 11/02/20 Range/Units 13:53 13:53 17:35 WBC (4.5-11.0) X10^3/uL RBC (4.0-5.2) X10^6/uL Hgb (12.0-16.0) g/dL Hct (36-46) % MCV (80-100) fL MCH (26-34) PG MCHC (30-36) % RDW (11.6-14.8) % Plt Count (150-400) X10^3/uL Neut % (Auto) (50-75) % Lymph % (Auto) (25-40) % [place] % (Auto) (3-14) % Eos % (Auto) (2-4) % Baso % (Auto) (0-2) % Neut # (Auto) (9330-4026) /uL Lymph # (Auto) (1548-7080) /uL [place] # (Auto) (0-900) /uL Eos # (Auto) (0-450) /uL Baso # (Auto) (0-100) /uL Sodium (137-145) mmol/L Potassium (3.4-5.1) mmol/L Chloride (98-107) mmol/L Carbon Dioxide (22-32) mmol/L BUN (7-17) mg/dL Creatinine (0.52-1.04) mg/dL Estimated GFR (>60) mL/min BUN/Creatinine Ratio (6-22) Glucose (80-110) mg/dL Calcium (8.4-10.2) mg/dL Total Bilirubin (0.2-1.3) mg/dL AST (14-36) IU/L ALT (<35) IU/L Alkaline Phosphatase (38-126) U/L Total Creatine Kinase 52 (30-135) U/L CK-MB (CK-2) TNP CK-MB (CK-2) Rel Index TNP Troponin I < 0.012 (0.01-0.034) ng/mL NT-Pro-B Natriuret Pep 252 H (<125) pg/mL Total Protein (6.3-8.2) g/dL Albumin (3.5-5.0) g/dL Globulin (1.7-4.1) g/dL Albumin/Globulin Ratio (1.0-2.8) TSH 1.28 (0.47-4.68) uIU/mL Imaging Data Chest x-ray: Radiologist's Impression: [address] [id number] ReportSigned Patient: Laila Nino [facility]#: [id number]: 8Acct:[id number]/Sex: 70 / FDate of Service: 11/02/20Loc: EDAccession Number: [id number] Procedure: XR chest 1V Ordering Provider: Jaye Rosado D.O. PROCEDURE: XR CHEST 1V INDICATIONS: chest pain TECHNIQUE: One view of the chest was acquired. COMPARISON: [facility], , XR CHEST 1V, 10/11/2019, 3:05. FINDINGS: Surgical changes and devices: None. Lungs and pleura: There is mild prominence of the central pulmonary vasculatu re. No definite acute airspace consolidation is seen. No pleural effusions or pneumothorax. Mediastinum: Mediastinal contours appear normal. Heart size is mildly enlarged in stable. Atherosclerotic calcifications are seen in the aorta. Bones and chest wall: No suspicious bony lesions. Overlying soft tissues appear unremarkable. Degenerative changes are seen in the acromioclavicular joints. IMPRESSION: Cardiomegaly and prominence of the central pulmonary vasculature appear slightly less prominent when compared to the radiographs from 10/11/2019, but may represent mild congestive heart failure. Dictated by: Albino Gonzalez M.D. on 11/02/2020 at 14:25 Approved by: Albino Gonzalez M.D. on 11/02/2020 at 14:27 ECG Data Attestation: I personally reviewed and interpreted this ECG as follows: Prior ECG tracings: available for review Interpretation: Sinus rhythm rate of 65, AK interval 164, QRS of 98 QTC 393. Inverted T-wave in 3, depressed in AVF. Similar to priors from 12/30/2019. EKG 2. Shows sinus bradycardia rate 56 AK 166 QRS of 98 QTC 387. Patient's EKG appears similar to prior from earlier today with no acute changes appreciated. MDM Narrative Medical decision making narrative: This is a 70-year-old female who presents with chest pain at almost 8 hours of duration with no acute EKG changes and negative troponin. Patient does have known coronary artery disease with stents as well as Prinzmetal's angina. She also came in fairly hypertensive. Patient's labs do not reflect an acute coronary area event, EKGs do not show any ST changes. Patient's BNP is very mildly elevated but her chest x-ray does show some vascular changes that may be consistent with CHF. She was given Lasix. Patient's chest pain is improved with nitro but never resolved. She initially deferred any pain medications but then accepted dilaudid. Patient's blood pressure fluctuated and was ultimately improved after giving her her home evening medications approximately 2 hours earlier. There was some restrictions with antihypertensive medication secondary to patient's heart rate in the 50s as well as she has had negative experiences with hydralazine and Catapres. Patient was signed out to Dr. Samuel while awaiting her blood pressure to improve after receiving her medications. Plan to continue patient on several days of Lasix and have short-term follow-up with cardiology who was consulted. <Poly Samuel MD - Last Filed: 11/02/20 20:25> Lab Data Labs: Lab Results 11/02/20 11/02/20 11/02/20 Range/Units 13:53 13:53 13:53 WBC 4.7 (4.5-11.0) X10^3/uL RBC 4.56 (4.0-5.2) X10^6/uL Hgb 12.4 (12.0-16.0) g/dL Hct 37.8 (36-46) % MCV 82.9 (80-100) fL MCH 27.2 (26-34) PG MCHC 32.8 (30-36) % RDW 14.5 (11.6-14.8) % Plt Count 239 (150-400) X10^3/uL Neut % (Auto) 72.6 (50-75) % Lymph % (Auto) 18.9 L (25-40) % [place] % (Auto) 6.3 (3-14) % Eos % (Auto) 1.4 L (2-4) % Baso % (Auto) 0.8 (0-2) % Neut # (Auto) 3400 (4701-3612) /uL Lymph # (Auto) 900 L (4037-9843) /uL [place] # (Auto) 300 (0-900) /uL Eos # (Auto) 100 (0-450) /uL Baso # (Auto) 0 (0-100) /uL Sodium 141 (137-145) mmol/L Potassium 4.0 (3.4-5.1) mmol/L Chloride 109 H (98-107) mmol/L Carbon Dioxide 29 (22-32) mmol/L BUN 16 (7-17) mg/dL Creatinine 0.98 (0.52-1.04) mg/dL Estimated GFR 55.8 L (>60) mL/min BUN/Creatinine Ratio 16.3 (6-22) Glucose 120 H (80-110) mg/dL Calcium 9.5 (8.4-10.2) mg/dL Total Bilirubin 0.8 (0.2-1.3) mg/dL AST 22 (14-36) IU/L ALT 15 (<35) IU/L Alkaline Phosphatase 75 (38-126) U/L Total Creatine Kinase 58 (30-135) U/L CK-MB (CK-2) TNP CK-MB (CK-2) Rel Index TNP Troponin I < 0.012 (0.01-0.034) ng/mL NT-Pro-B Natriuret Pep (<125) pg/mL Total Protein 6.9 (6.3-8.2) g/dL Albumin 4.0 (3.5-5.0) g/dL Globulin 2.9 (1.7-4.1) g/dL Albumin/Globulin Ratio 1.4 (1.0-2.8) TSH (0.47-4.68) uIU/mL 11/02/20 11/02/20 11/02/20 Range/Units 13:53 13:53 17:35 WBC (4.5-11.0) X10^3/uL RBC (4.0-5.2) X10^6/uL Hgb (12.0-16.0) g/dL Hct (36-46) % MCV (80-100) fL MCH (26-34) PG MCHC (30-36) % RDW (11.6-14.8) % Plt Count (150-400) X10^3/uL Neut % (Auto) (50-75) % Lymph % (Auto) (25-40) % [place] % (Auto) (3-14) % Eos % (Auto) (2-4) % Baso % (Auto) (0-2) % Neut # (Auto) (7194-8327) /uL Lymph # (Auto) (4154-5237) /uL [place] # (Auto) (0-900) /uL Eos # (Auto) (0-450) /uL Baso # (Auto) (0-100) /uL Sodium (137-145) mmol/L Potassium (3.4-5.1) mmol/L Chloride (98-107) mmol/L Carbon Dioxide (22-32) mmol/L BUN (7-17) mg/dL Creatinine (0.52-1.04) mg/dL Estimated GFR (>60) mL/min BUN/Creatinine Ratio (6-22) Glucose (80-110) mg/dL Calcium (8.4-10.2) mg/dL Total Bilirubin (0.2-1.3) mg/dL AST (14-36) IU/L ALT (<35) IU/L Alkaline Phosphatase (38-126) U/L Total Creatine Kinase 52 (30-135) U/L CK-MB (CK-2) TNP CK-MB (CK-2) Rel Index TNP Troponin I < 0.012 (0.01-0.034) ng/mL NT-Pro-B Natriuret Pep 252 H (<125) pg/mL Total Protein (6.3-8.2) g/dL Albumin (3.5-5.0) g/dL Globulin (1.7-4.1) g/dL Albumin/Globulin Ratio (1.0-2.8) TSH 1.28 (0.47-4.68) uIU/mL Discharge Plan Departure Patient Disposition: Home Clinical Impression: Chest pain Qualifiers: Chest pain type: unspecified Qualified Code(s): R07.9 - Chest pain, unspecified CHF (congestive heart failure) Qualifiers: Heart failure type: unspecified Heart failure chronicity: unspecified Qualified Code(s): I50.9 - Heart failure, unspecified Instructions: DI for Chest Pain Activity Restrictions/Additional Instructions: Follow up with your test specialist, call for an appointment tomorrow. Take lasix once daily until gone. Prescription to [facility] in [place]. Continue your home medications. Return to the ER for fevers, lightheadedness, passing out, worsening chest pain or pressure, persistent vomiting, new swelling in your extremities new or concerning symptoms. Prescriptions: New furosemide [Lasix] 40 mg tablet 40 mg PO DAILY Qty: 3 RF: 0 No Action NITROGLYCERIN (Nitrostat) 0.4 mg Sublingual PRN Qty: 0 RF: 0 Fish Oil 1,000 mg PO BID Qty: 0 RF: 0 valsartan [Diovan] 160 mg tablet 160 mg PO BID Qty: 180 RF: 1 carvedilol [Coreg] 25 mg tablet 37.5 mg PO BID Qty: 270 RF: 3 carisoprodol 350 mg tablet 350 mg PO BEDTIME PRN (Reason: muscle pain) Qty: 30 RF: 1 isosorbide mononitrate 60 mg tablet extended release 24 hr See Rx Instructions PO DAILY RF: 0 oseltamivir [Tamiflu] 75 mg capsule 75 mg PO BID Qty: 10 RF: 0 furosemide 40 mg tablet 20 mg PO DAILY RF: 0 amlodipine 5 mg tablet 5 mg PO DAILY RF: 0 albuterol sulfate [Ventolin HFA] 90 mcg/actuation HFA aerosol inhaler 2 puff inhalation Q4HP PRN (Reason: shortness of breath or wheezing) Qty: 1 RF: 0 ranolazine [Ranexa] 500 mg tablet extended release 12 hr 500 mg PO BID RF: 0 clopidogrel [Plavix] 75 mg tablet 75 mg PO DAILY RF: 0 (DME) Disabled Parking Qty: 1 RF: 0 Pradaxa 150 mg Capsule 150 mg BID RF: 0 (DME) Resmed Aircurve 10 CPAP Qty: 1 RF: 0 Referrals: Soledad Vick DO [Primary Care Provider] -
[2020-11-02 14:06] LABS: Add Manual Diff / Slide Review NO; Basophils Absolute Auto 0 /uL (0-100); Basophils Percent Auto 0.8 % (0-2); Eosinophils Absolute Auto 100 /uL (0-450); Eosinophils Percent Auto 1.4 % (2-4); Hematocrit 37.8 % (36-46); Hemoglobin 12.4 g/dL (12.0-16.0); Lymphocytes Absolute Auto 900 /uL (1100-4500); Lymphocytes Percent Auto 18.9 % (25-40); Mean Corpuscular HGB Conc 32.8 % (30-36); Mean Corpuscular Hemoglobin 27.2 PG (26-34); Mean Corpuscular Volume 82.9 fL (80-100); Monocytes Absolute Auto 300 /uL (0-900); Monocytes Percent Auto 6.3 % (3-14); Neutrophils Absolute Auto 3400 /uL (1500-7000); Neutrophils Percent Auto 72.6 % (50-75); Platelet Count 239 X10^3/uL (150-400); Red Blood Cell Count 4.56 X10^6/uL (4.0-5.2); Red Cell Distribution Width 14.5 % (11.6-14.8); White Blood Cell Count 4.7 X10^3/uL (4.5-11.0)
--- NOTE | 2020-11-02 14:20 | PC.NURSE ---
Pt took 1 of her home Nitro. Pain currently 5/10
[2020-11-02 14:41] LABS: Creatine Kinase 58 U/L (30-135)
[2020-11-02 14:43] LABS: Alanine Aminotransferase 15 IU/L (<35); Albumin Globulin Ratio 1.4 (1.0-2.8); Alkaline Phosphatase 75 U/L (38-126); Aspartate Aminotransferase 22 IU/L (14-36); BUN Creatinine Ratio 16.3 (6-22); Bilirubin Total 0.8 mg/dL (0.2-1.3); Blood Urea Nitrogen 16 mg/dL (7-17); Calcium 9.5 mg/dL (8.4-10.2); Carbon Dioxide 29 mmol/L (22-32); Chloride 109 mmol/L (98-107); Estimated Glomerular Filt Rate 55.8 mL/min (>60); Globulin 2.9 g/dL (1.7-4.1); Glucose 120 mg/dL (80-110); HEMOLYSIS < 15 (0-50); Sodium 141 mmol/L (137-145); Total Protein 6.9 g/dL (6.3-8.2)
--- NOTE | 2020-11-02 14:45 | PC.NURSE ---
Chest pain 4/10. Taking 1 more nitro
[2020-11-02 14:50] LABS: Troponin I < 0.012 ng/mL (0.01-0.034)
--- NOTE | 2020-11-02 15:00 | PC.NURSE ---
CP 01/01. Last nitro given
[2020-11-02 15:15] LABS: Thyroid Stimulating Hormone 1.28 uIU/mL (0.47-4.68)
--- NOTE | 2020-11-02 15:20 | PC.NURSE ---
No significant change in chest pain.
--- NOTE | 2020-11-02 15:23 | PC.NURSE ---
Okayed with Dr. Rosado to administer Metoprolol with her HR of 59. also wishes for pt to have a copy of her blood work
[2020-11-02] MEDS: METOPROLOL IR 25 MG TABLET 12.5 MG PO (15:24)
[2020-11-02 16:00] LABS: NT-proBNP (BNP-Adult 18+) 252 pg/mL (<125)
[2020-11-02] MEDS: HYDROMORPHONE 0.5 MG INJ IV (17:37)
[2020-11-02] MEDS: FUROSEMIDE 40 MG/4 ML VIAL IV (17:37)
[2020-11-02 17:53] LABS: Creatine Kinase 52 U/L (30-135)
[2020-11-02 18:06] LABS: Troponin I < 0.012 ng/mL (0.01-0.034)
[2020-11-02] MEDS: AMLODIPINE 5 MG TABLET PO (18:37)
[2020-11-02] MEDS: ISOSORBIDE MONONITRATE ER 30 MG TABLET 60 MG PO (18:38)
[2020-11-02] MEDS: carvediloL 12.5 MG TABLET 37.5 MG PO (18:38)
[2020-11-02] MEDS: VALSARTAN 80 MG TABLET 160 MG PO (18:38)
[2020-11-02] MEDS: ACETAMINOPHEN 325 MG TABLET PO (19:33)
== END 2020-11-02 20:28 | disposition home or self-care (01) ==
PROVIDERS: Emergency Provider Emergency Medicine; PCP Family Medicine
DX: R07.9 Chest pain, unspecified (principal); I50.9 Heart failure, unspecified; I10 Essential (primary) hypertension; I25.10 Atherosclerotic heart disease of native coronary artery without angina pectoris; Z95.5 Presence of coronary angioplasty implant and graft; E66.9 Obesity, unspecified; Z68.41 Body mass index [BMI] 40.0-44.9, adult
CPT/HCPCS: 36415; 71045; 80053; 82550; 83880; 84443; 84484; 85025; 93005; 93010; 96374; 96375; 99281; 99284; J1170; J1940

== ENCOUNTER → 2020-11-16 09:39 | Outpatient (CLI) | payer MEDICARE, BC, SELFPAY ==
[2020-11-16] MEDS: COVID-19 VACC #2, MRNA(MOD) 100 MCG/0.5 ML VIAL IM (09:47)
== END ==
PROVIDERS: PCP Family Medicine; Visit Provider Internal Medicine
DX: Z23 Encounter for immunization (principal)
CPT/HCPCS: 0012A; 91301

== ENCOUNTER → 2020-11-23 08:44 | Outpatient (CLI) | payer MEDICARE, BC, SELFPAY ==
[2020-11-23 11:54] LABS: Folate 8.8 ng/mL (2.76-20.0); Vitamin B12 Reflex MMA if <400 493 pg/mL (239-931)
[2020-11-23 23:07] LABS: Homocysteine 14.2 umol/L (0.0-19.2)
== END ==
PROVIDERS: PCP Family Medicine; Referring Provider Family Medicine; Visit Provider Family Medicine
DX: E53.8 Deficiency of other specified B group vitamins (principal); E72.12 Methylenetetrahydrofolate reductase deficiency; E61.1 Iron deficiency
CPT/HCPCS: 36415; 82607; 82746; 83090

== ENCOUNTER → 2020-12-07 09:45 | Outpatient (CLI) | payer MEDICARE, BC, SELFPAY ==
[2020-12-07 11:52] LABS: Add Manual Diff / Slide Review NO; Basophils Absolute Auto 0 /uL (0-100); Basophils Percent Auto 0.8 % (0-2); Eosinophils Absolute Auto 100 /uL (0-450); Eosinophils Percent Auto 1.6 % (2-4); Hematocrit 36.2 % (36-46); Hemoglobin 12.1 g/dL (12.0-16.0); Lymphocytes Absolute Auto 1000 /uL (1100-4500); Lymphocytes Percent Auto 18.4 % (25-40); Mean Corpuscular HGB Conc 33.3 % (30-36); Mean Corpuscular Hemoglobin 27.8 PG (26-34); Mean Corpuscular Volume 83.5 fL (80-100); Monocytes Absolute Auto 300 /uL (0-900); Monocytes Percent Auto 5.9 % (3-14); Neutrophils Absolute Auto 4100 /uL (1500-7000); Neutrophils Percent Auto 73.3 % (50-75); Platelet Count 229 X10^3/uL (150-400); Red Blood Cell Count 4.34 X10^6/uL (4.0-5.2); Red Cell Distribution Width 15.1 % (11.6-14.8); White Blood Cell Count 5.6 X10^3/uL (4.5-11.0)
[2020-12-07 12:15] LABS: HEMOLYSIS < 15 (0-50); Iron 54 ug/dL (37-170)
[2020-12-07 12:18] LABS: Alanine Aminotransferase 13 IU/L (<35); Albumin 4.1 g/dL (3.5-5.0); Albumin Globulin Ratio 1.5 (1.0-2.8); Alkaline Phosphatase 97 U/L (38-126); Aspartate Aminotransferase 17 IU/L (14-36); BUN Creatinine Ratio 23.3 (6-22); Bilirubin Total 0.7 mg/dL (0.2-1.3); Blood Urea Nitrogen 24 mg/dL (7-17); Calcium 9.3 mg/dL (8.4-10.2); Carbon Dioxide 25 mmol/L (22-32); Chloride 108 mmol/L (98-107); Estimated Glomerular Filt Rate 52.7 mL/min (>60); Globulin 2.7 g/dL (1.7-4.1); Glucose 86 mg/dL (80-110); HEMOLYSIS < 15 (0-50); Potassium 4.2 mmol/L (3.4-5.1); Sodium 140 mmol/L (137-145); Total Protein 6.8 g/dL (6.3-8.2)
[2020-12-07 12:26] LABS: Percent Iron Saturation 17 % (15-50); Total Iron Binding Capacity 311 ug/dL (265-497); Transferrin 262 mg/dL (206-381)
[2020-12-07 12:42] LABS: Creatinine Urine Random 15.4 mg/dL
[2020-12-07 12:52] LABS: Microalbumin Urine Random < 0.6 mg/dL (0-1.6)
[2020-12-07 12:53] LABS: Ferritin 63 ng/mL (11-264)
[2020-12-07 13:01] LABS: Vitamin D 25 Hydroxy (D3) 41.5 ng/mL (30.0-100.0)
== END ==
PROVIDERS: PCP Family Medicine; Referring Provider Internal Medicine; Visit Provider Internal Medicine Interventional Cardiology
DX: N18.31 Chronic kidney disease, stage 3a (principal); D50.8 Other iron deficiency anemias; I10 Essential (primary) hypertension
CPT/HCPCS: 36415; 80053; 82043; 82306; 82570; 82728; 83540; 83550; 85025

== ENCOUNTER → 2020-12-18 09:13 | Outpatient (CLI) | payer MEDICARE, BC, SELFPAY ==
[2020-12-18 10:35] LABS: COVID19 -Nasal RAPID Negative (Negative)
== END ==
PROVIDERS: PCP Family Medicine; Visit Provider Physician Assistant
DX: Z20.822 Contact with and (suspected) exposure to COVID-19 (principal)
CPT/HCPCS: 87635; C9803

== ENCOUNTER → 2021-01-27 09:12 | Outpatient (CLI) | payer MEDICARE, BC, SELFPAY ==
--- NOTE | 2021-01-27 09:13 | DI.NM.S_ITS ---
PROCEDURE: NM BONE SCAN WHOLE BODY RADIOPHARMACEUTICAL: 20.9 mCi Tc-99m MDP IV. INDICATIONS: Fibula pain TECHNIQUE: Delayed whole-body scintigrams were obtained approximately 3-4 hours after intravenous injection of radiotracer. Anterior and posterior views were acquired from vertex to feet. Additional left and right lateral views of the fibulas were obtained. COMPARISON: None. FINDINGS: There is no suspicious radiopharmaceutical uptake identified. Physiologic uptake noted within the bladder. Degenerative uptake noted in the acromioclavicular joints, glenohumeral joints, lower lumbar spine, knees, and ankles. IMPRESSION: No suspicious focus of radiopharmaceutical uptake. Dictated by: Rodríguez Angulo M.D. on 01/27/2021 at 13:55 Approved by: Rodríguez Angulo M.D. on 01/27/2021 at 13:56
== END ==
PROVIDERS: PCP Family Medicine; Referring Provider Family Medicine; Visit Provider Family Medicine
DX: M89.8X6 Other specified disorders of bone, lower leg
CPT/HCPCS: 78306; A9503

== ENCOUNTER → 2021-03-01 10:31 | Outpatient (CLI) | payer MEDICARE, BC, SELFPAY ==
[2021-03-01 11:40] LABS: Add Manual Diff / Slide Review NO; Basophils Absolute Auto 0 /uL (0-100); Basophils Percent Auto 0.8 % (0-2); Eosinophils Absolute Auto 100 /uL (0-450); Hematocrit 38.3 % (36-46); Hemoglobin 12.6 g/dL (12.0-16.0); Lymphocytes Absolute Auto 1100 /uL (1100-4500); Lymphocytes Percent Auto 19.3 % (25-40); Mean Corpuscular HGB Conc 32.8 % (30-36); Mean Corpuscular Hemoglobin 27.7 PG (26-34); Mean Corpuscular Volume 84.4 fL (80-100); Monocytes Absolute Auto 400 /uL (0-900); Monocytes Percent Auto 6.8 % (3-14); Neutrophils Absolute Auto 3900 /uL (1500-7000); Neutrophils Percent Auto 71.1 % (50-75); Platelet Count 225 X10^3/uL (150-400); Red Blood Cell Count 4.54 X10^6/uL (4.0-5.2); Red Cell Distribution Width 14.3 % (11.6-14.8); White Blood Cell Count 5.5 X10^3/uL (4.5-11.0)
[2021-03-01 12:04] LABS: C-Reactive Protein Quant 0.7 mg/dL (<1.0)
== END ==
PROVIDERS: PCP Family Medicine; Referring Provider Family Medicine; Visit Provider Family Medicine
DX: K04.7 Periapical abscess without sinus (principal)
CPT/HCPCS: 36415; 85025; 86140

== ENCOUNTER → 2021-03-31 14:20 | Outpatient (CLI) | payer MEDICARE, BC, SELFPAY ==
--- NOTE | 2021-03-31 14:22 | DI.MG.S_ITS ---
BILATERAL DIGITAL SCREENING MAMMOGRAM 3D/2D WITH CAD: 03/31/2021 CLINICAL: Routine screening. Family history of breast cancer. Comparison is made to exams dated: 07/03/2019 mammogram, 06/15/2018 mammogram, and 06/06/2016 mammogram - [facility]. There are scattered fibroglandular elements in both breasts. Current study was also evaluated with a Computer Aided Detection (CAD) system. There are mole markers on both breasts. No significant masses, calcifications, or other findings are seen in either breast. There has been no significant interval change. IMPRESSION: NEGATIVE There is no mammographic evidence of malignancy. A 1 year screening mammogram is recommended. This exam was interpreted at Station ID: [id number]. NOTE: For mammograms, a report in lay terms will be sent to the patient. Approximately 15% of breast malignancies will not be visualized mammographically. In the management of a palpable breast mass, a negative mammogram must not discourage biopsy of a clinically suspicious lesion. Electronically Signed By: Antonio lamb/veda:03/31/2021 16:25:45 letter sent: Normal Exam ACR BI-RADS Category 1: Negative [id number]
== END ==
PROVIDERS: PCP Family Medicine; Referring Provider Family Medicine; Visit Provider Family Medicine
DX: Z12.31 Encounter for screening mammogram for malignant neoplasm of breast (principal); Z80.3 Family history of malignant neoplasm of breast
CPT/HCPCS: 77063; 77067

== ENCOUNTER 2021-06-01 17:14 | Inpatient (IN) | payer MEDICARE, BC, SELFPAY ==
[2021-06-01] VITALS (16 sets, daily range): BP systolic 133–226; BP diastolic 61–105; PULSE 58–69; RESP 12–27; TEMP 36.5–36.6; O2SAT 81–100; BMI 41.5; BMI 42.0
--- NOTE | 2021-06-01 17:54 | DI.RAD.S_ITS ---
PROCEDURE: XR CHEST 1V INDICATIONS: chest pain TECHNIQUE: One view of the chest was acquired. COMPARISON: [facility], CR, XR CHEST 1V, 11/02/2020, 14:06. FINDINGS: Surgical changes and devices: None. Lungs and pleura: Lungs are clear. No pleural effusions or pneumothorax. Mediastinum: Mediastinal contours appear normal. Heart size is normal. Atherosclerotic vascular calcification noted in the aortic arch. Bones and chest wall: No suspicious bony lesions. Overlying soft tissues appear unremarkable. IMPRESSION: No acute cardiopulmonary findings Approved by: Kalia Leo M.D. on 06/01/2021 at 17:50
[2021-06-01 18:10] LABS: Alanine Aminotransferase 18 IU/L (<35); Albumin 4.5 g/dL (3.5-5.0); Albumin Globulin Ratio 1.6 (1.0-2.8); Alkaline Phosphatase 81 U/L (38-126); Aspartate Aminotransferase 27 IU/L (14-36); BUN Creatinine Ratio 23.7 (6-22); Blood Urea Nitrogen 31 mg/dL (7-17); Calcium 9.5 mg/dL (8.4-10.2); Carbon Dioxide 26 mmol/L (22-32); Chloride 106 mmol/L (98-107); Creatine Kinase 73 U/L (30-135); Estimated Glomerular Filt Rate 39.8 mL/min (>60); Globulin 2.9 g/dL (1.7-4.1); Glucose 105 mg/dL (80-110); HEMOLYSIS 23 (0-50); Lipase 267 U/L (23-300); Potassium 3.9 mmol/L (3.4-5.1); Sodium 140 mmol/L (137-145); Total Protein 7.4 g/dL (6.3-8.2)
[2021-06-01 18:12] LABS: Add Manual Diff / Slide Review NO; Basophils Absolute Auto 0 /uL (0-100); Basophils Percent Auto 0.6 % (0-2); Eosinophils Absolute Auto 100 /uL (0-450); Eosinophils Percent Auto 1.9 % (2-4); Hematocrit 37.8 % (36-46); Hemoglobin 12.4 g/dL (12.0-16.0); Lymphocytes Absolute Auto 900 /uL (1100-4500); Lymphocytes Percent Auto 17.3 % (25-40); Mean Corpuscular HGB Conc 32.8 % (30-36); Mean Corpuscular Hemoglobin 27.3 PG (26-34); Mean Corpuscular Volume 83.3 fL (80-100); Monocytes Absolute Auto 400 /uL (0-900); Monocytes Percent Auto 8.3 % (3-14); Neutrophils Absolute Auto 3700 /uL (1500-7000); Neutrophils Percent Auto 71.9 % (50-75); Platelet Count 231 X10^3/uL (150-400); Red Blood Cell Count 4.54 X10^6/uL (4.0-5.2); Red Cell Distribution Width 15.5 % (11.6-14.8); White Blood Cell Count 5.1 X10^3/uL (4.5-11.0)
[2021-06-01 18:20] LABS: Troponin I < 0.012 ng/mL (0.01-0.034)
[2021-06-01 18:49] LABS: INR 1.2 (0.9-1.3); Prothrombin Time 13.6 SECONDS (10.1-12.7)
[2021-06-01 18:51] LABS: PTT Partial Thromboplastin Tim 69 SECONDS (26.4-36.2)
--- NOTE | 2021-06-01 19:04 | ED.GENADULT ---
HPI - General Adult General Chief complaint: Hypertension Stated complaint: hypertensive crisis Time Seen by Provider: 06/01/21 18:06 Source: patient Mode of arrival: Ambulatory Limitations: no limitations History of Present Illness HPI narrative: Patient here with friend. Has complaints of hypertensive urgency. In the past week has had elevated systolic blood pressures above 200. Has significant heart history. Has history of renal artery stenosis with stenting done at [facility] this past October with Dr. Sullivan. Dr. Reyes has her home care associate at [facility] in [place]. In the past couple weeks as intermittent palpitations with chest discomfort. Has intermittent epistaxis. None now. Sent here by her home care associate as well as family doctor. Currently no chest pain. Blood pressure has improved at this time. However has been waxing waning last few days. Patient has high risk of heart injury. Patient is on 2 blood thinners. No headache. No altered mental status. Related Data Home Medications Medication Instructions Recorded Confirmed dabigatran etexilate 150 mg 150 mg BID 01/07/19 06/01/21 capsule (Pradaxa) isosorbide mononitrate 60 mg 60 mg PO BID 03/08/19 06/01/21 tablet,extended release 24 hr ranolazine 500 mg tablet,extended 500 mg PO BID 09/11/19 06/01/21 release,12 hr (Ranexa) clopidogrel 75 mg tablet (Plavix) 75 mg PO DAILY 11/28/19 06/01/21 furosemide 20 mg tablet 20 mg PO DAILY 01/10/21 06/01/21 carvedilol 25 mg tablet 50 mg PO QPM 06/01/21 06/01/21 carvedilol 25 mg tablet (Coreg) 37.5 mg PO QAM 06/01/21 06/01/21 Previous Rx's Medication Instructions Recorded albuterol sulfate 90 mcg/actuation 2 puff INHALATION Q4HP PRN #1 inh 05/23/19 aerosol inhaler (Ventolin HFA) Diovan 160 mg tablet (valsartan) 160 mg PO BID #180 tab NS 12/08/20 Allergies Allergy/AdvReac Type Severity Reaction Status Date / Time benazepril [From Lotensin] Allergy Severe angioadema Verified 04/15/21 16:18 adhesive Allergy Mild Verified 04/15/21 16:18 Sulfa (Sulfonamide Allergy Unknown Verified 04/15/21 16:18 Antibiotics) [SULFA (SULFONAMIDE ANTIBIOTICS)] Haemophilus B polysaccharide AdvReac Intermediate YRS AGO Verified 04/15/21 16:18 conj w CAUSED [From TriHIBit] FEVER, RECENTLY MOUTH SORES Beta-Blockers AdvReac Mild LOW Verified 04/15/21 16:18 (Beta-Adrenergic Bloc TOLERANCE - HR IN 30s - HOSPITALIZED diazepam AdvReac Mild OPPOSITE Verified 04/15/21 16:18 EFFECT, BECAME HYPER/INCOMPLIANT--O.K. WITH VERSED diphtheria,pertussis AdvReac Mild YRS AGO Verified 04/15/21 16:18 (acellular),te CAUSED [From TriHIBit] FEVER, RECENTLY MOUTH SORES pseudoephedrine AdvReac Mild INCREASED Verified 04/15/21 16:18 HEART RATE Review of Systems Review of Systems Narrative: GENERAL: Denies chills, fatigue, malaise, fever, sweats. HEENT: Denies sinus pain, ear pain, sore throat RESPIRATORY: Denies dyspnea, cough CARDIOVASCULAR: Complaintchest pain, palpitations GASTROINTESTINAL: Denies nausea, vomiting, abdominal pain : Denies dysuria, frequency, hematuria MUSCULOSKELETAL: denies muscle or bony pain SKIN: Denies rash, skin lesions NEUROLOGIC: Denies weakness, numbness, no headache ROS Unobtainable: All systems reviewed & are unremarkable except as noted in HPI and below 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 Hiatal hernia (~11/22/20) History of recurrent pneumonia History of stent insertion of renal artery Hypertension Left renal artery stenosis (~11/22/20) Macular degeneration, age related, nonexudative Ocular migraine Osteopenia of femoral neck, bilateral (~02/2019) Paroxysmal atrial fibrillation Parumbilical hernia (~11/22/20) Pressure ulcer, buttock, right, unstageable Prinzmetal's angina (1975) Proteus enteritis (~2018) Renal artery atherosclerosis (09/22/11) Severe obstructive sleep apnea-hypopnea syndrome (10/22/15) Shinglsean (2017) Statin intolerance Stenosis of celiac artery (~11/22/20) Systemic lupus erythematosus Thyroid nodule Surgical History H/O colonoscopy with polypectomy (~04/2020) History of arthroplasty (12/09/12) History of arthroplasty (01/20/13) History of cataract removal with insertion of prosthetic lens (2014) History of cholecystectomy History of tonsillectomy Stented coronary artery (2013) Family History Father Lung cancer Mother Parkinson's disease Breast cancer CAD (coronary artery disease) Social History marital status: household members: friend(s) lives independently: No caregiver/support person: No pets and animals: Yes Smoking Status: Never smoker Smoking Status: Never smoker alcohol intake frequency: 0-2 drinks per day Substance Use Type: does not use Exam Narrative Exam Narrative: GENERAL: in no distress, not toxic not dyspneic HEAD: Normocephalic. EYES: Pupils equal round No scleral icterus. No injection no discharge ENT: Mucous membranes moist. NECK: Trachea midline. CARDIOVASCULAR: Regular rate and rhythm without murmurs RESPIRATORY: Clear to auscultation. Breath sounds equal bilaterally. No wheezes, rales, or rhonchi. GASTROINTESTINAL: Abdomen soft, non-tender EXTREMITIES: No gross deformities. BACK: No flank tenderness. NEURO: AOx4. SKIN: Warm and dry PSYCH: Not anxious, is cooperative Initial Vital Signs Initial Vital Signs: Vital Signs Temperature 97.8 F 06/01/21 17:20 Pulse Rate 69 06/01/21 17:20 Respiratory Rate 18 06/01/21 17:20 Blood Pressure 226/105 H 06/01/21 17:20 Pulse Oximetry 100 06/01/21 17:20 Course Course Course Narrative: Blood pressure has waxing waning since here. Prudent for admission after review with home care associate and vascular surgeon Decision to Admit Date: 06/01/21 Decision to Admit time: 21:41 Orders Ordered: ED Orders 06/01/21 17:50 Complete Blood Count AUTO DIFF Stat Comprehensive Metabolic Panel Stat Lipase Stat Partial Thromboplastin Time Stat Prothrombin Time INR Stat Troponin & CK Cardiac Panel Stat 06/01/21 17:54 XR chest 1V Stat EKG-12 Lead Stat 06/01/21 20:51 COVID19 -Nasal swab/Pre-Proc Stat Acetaminophen (Acetaminophen 325 Mg Tablet) 650 mg PO Q6HR PRN PRN Reason: Fever/Mild Pain (1-3) Al Hydrox/Mg Hydrox/Simethicone (Mag Hydrox/Alum/Simeth 30 Ml Udc) 30 ml PO Q6HR PRN PRN Reason: Dyspepsia Albuterol (Albuterol 2.5 Mg/3 Ml Neb (Adult)) 2.5 mg INH Q4H PRN PRN Reason: Shortness Of Breath Or Wheezing Carvedilol (Carvedilol 12.5 Mg Tablet) 50 mg PO QPM [facility] Carvedilol (Carvedilol 12.5 Mg Tablet) 37.5 mg PO DAILY [facility] Clopidogrel Bisulfate (Clopidogrel 75 Mg Tablet) 75 mg PO DAILY [facility] Dabigatran (Dabigatran 75 Mg Capsule) 150 mg PO BID [facility] Hydralazine HCl (Hydralazine 20 Mg/Ml Vial) 10 mg IV Q6HR PRN PRN Reason: Hypertension Lactated Ringer's (Lactated Ringers) 1,000 mls @ 60 mls/hr IV CONT [facility] Last Admin: 06/01/21 23:04 Dose: 60 mls/hr Documented by: HOLDEN Isosorbide Mononitrate (Isosorbide Mononitrate Er 30 Mg Tablet) 60 mg PO BID [facility] Last Admin: 06/01/21 23:07 Dose: 60 mg Documented by: HOLDEN Naloxone HCl (Naloxone 0.4 Mg/Ml Vial) 0.2 mg IV Q2MIN PRN PRN Reason: Opiate Reversal Ondansetron HCl (Ondansetron 4 Mg/2 Ml Inj) 4 mg IV Q8HR PRN PRN Reason: Nausea And Vomiting Ranolazine (Ranolazine 500 Mg Tab.Er.12h) 500 mg PO BID [facility] Sennosides (Sennosides 8.6 Mg Tablet) 17.2 mg PO BEDTIME [facility] Valsartan (Valsartan 80 Mg Tablet) 160 mg PO BID [facility] Last Admin: 06/01/21 23:06 Dose: 160 mg Documented by: HOLDEN Discontinued Medications Carvedilol (Carvedilol 12.5 Mg Tablet) 50 mg PO NOW ONE Stop: 06/01/21 22:18 Last Admin: 06/01/21 23:05 Dose: 50 mg Documented by: [email or web address] Dabigatran (Dabigatran 75 Mg Capsule) 150 mg PO NOW ONE Stop: 06/01/21 22:18 Last Admin: 06/01/21 23:06 Dose: 150 mg Documented by: [email or web address] Isosorbide Mononitrate (Isosorbide Mononitrate Er 30 Mg Tablet) 60 mg PO NOW ONE Stop: 06/01/21 22:18 Last Admin: 06/01/21 23:00 Dose: Not Given Documented by: [email or web address] Valsartan (Valsartan 80 Mg Tablet) 160 mg PO NOW ONE Stop: 06/01/21 22:18 Last Admin: 06/01/21 23:00 Dose: Not Given Documented by: [email or web address] Reevaluation(s) Reevaluation #1: Reviewed with patient results and conversations with cardiology and vascular surgeon. She agrees for admission for observation tonight and CT angiogram in the morning after hydration Time: 21:42 Consultations Consultation #1: Spoke with cardiology Dr. Lawson. Recommends patient observed overnight for blood pressure and may use hydralazine for any blood pressure spikes Time: 19:22 Consultation #2: Spoke with Trina Harper, vascular surgeon. Recommend patient get hydrated tonight and CT angiogram in the morning. Watch for blood pressure spikes Time: 20:46 Consultation #3: Spoke with Shanta hospitalist, she will admit patient. Will start IV fluids 60 mL an hour for renal hydration and CT angiogram tomorrow Time: 21:49 Vital Signs Vital signs: Vital Signs - 8 hr 06/01/21 18:30 06/01/21 18:39 06/01/21 19:00 Pulse Rate 61 62 61 Respiratory Rate 17 17 16 Blood Pressure 146/66 H 138/63 Pulse Oximetry 98 98 100 06/01/21 19:06 06/01/21 19:30 06/01/21 20:00 Pulse Rate 61 58 L 62 Respiratory Rate 17 16 20 Blood Pressure 133/62 148/70 H 133/61 Pulse Oximetry 99 98 97 06/01/21 20:30 06/01/21 21:00 06/01/21 21:01 Pulse Rate 63 63 65 Respiratory Rate 19 16 16 Blood Pressure 134/68 161/73 H Pulse Oximetry 98 98 98 06/01/21 21:30 Pulse Rate 62 Respiratory Rate 27 H Blood Pressure 161/80 H Pulse Oximetry 81 L Medical Decision Making Differential Diagnosis Differential Diagnosis: Hypertensive urgency. Renal artery stenosis Medical Records Medical records narrative: Hypertensive crisis/hypertensive urgency Lab Data Result diagrams: 06/01/21 17:50 06/01/21 17:50 Labs: Lab Results 06/01/21 06/01/21 06/01/21 Range/Units 17:50 17:50 17:50 WBC 5.1 (4.5-11.0) X10^3/uL RBC 4.54 (4.0-5.2) X10^6/uL Hgb 12.4 (12.0-16.0) g/dL Hct 37.8 (36-46) % MCV 83.3 (80-100) fL MCH 27.3 (26-34) PG MCHC 32.8 (30-36) % RDW 15.5 H (11.6-14.8) % Plt Count 231 (150-400) X10^3/uL Neut % (Auto) 71.9 (50-75) % Lymph % (Auto) 17.3 L (25-40) % [place] % (Auto) 8.3 (3-14) % Eos % (Auto) 1.9 L (2-4) % Baso % (Auto) 0.6 (0-2) % Neut # (Auto) 3700 (3768-2439) /uL Lymph # (Auto) 900 L (6225-3355) /uL [place] # (Auto) 400 (0-900) /uL Eos # (Auto) 100 (0-450) /uL Baso # (Auto) 0 (0-100) /uL PT 13.6 H (10.1-12.7) SECONDS INR 1.2 (0.9-1.3) APTT 69 H (26.4-36.2) SECONDS Sodium 140 (137-145) mmol/L Potassium 3.9 (3.4-5.1) mmol/L Chloride 106 (98-107) mmol/L Carbon Dioxide 26 (22-32) mmol/L BUN 31 H (7-17) mg/dL Creatinine 1.31 H (0.52-1.04) mg/dL Estimated GFR 39.8 L (>60) mL/min BUN/Creatinine Ratio 23.7 H (6-22) Glucose 105 (80-110) mg/dL Calcium 9.5 (8.4-10.2) mg/dL Phosphorus (2.8-4.1) mg/dL Magnesium (1.6-2.3) mg/dL Total Bilirubin 1.0 (0.2-1.3) mg/dL AST 27 (14-36) IU/L ALT 18 (<35) IU/L Alkaline Phosphatase 81 (38-126) U/L Total Creatine Kinase 73 (30-135) U/L CK-MB (CK-2) TNP CK-MB (CK-2) Rel Index TNP Troponin I < 0.012 (0.01-0.034) ng/mL NT-Pro-B Natriuret Pep (<125) pg/mL Total Protein 7.4 (6.3-8.2) g/dL Albumin 4.5 (3.5-5.0) g/dL Globulin 2.9 (1.7-4.1) g/dL Albumin/Globulin Ratio 1.6 (1.0-2.8) Lipase 267 (23-300) U/L TSH (0.47-4.68) uIU/mL SARS-CoV-2 (PCR) (Negative) 06/01/21 06/01/21 06/01/21 Range/Units 17:50 17:50 17:50 WBC (4.5-11.0) X10^3/uL RBC (4.0-5.2) X10^6/uL Hgb (12.0-16.0) g/dL Hct (36-46) % MCV (80-100) fL MCH (26-34) PG MCHC (30-36) % RDW (11.6-14.8) % Plt Count (150-400) X10^3/uL Neut % (Auto) (50-75) % Lymph % (Auto) (25-40) % [place] % (Auto) (3-14) % Eos % (Auto) (2-4) % Baso % (Auto) (0-2) % Neut # (Auto) (1874-6626) /uL Lymph # (Auto) (0701-0392) /uL [place] # (Auto) (0-900) /uL Eos # (Auto) (0-450) /uL Baso # (Auto) (0-100) /uL PT (10.1-12.7) SECONDS INR (0.9-1.3) APTT (26.4-36.2) SECONDS Sodium (137-145) mmol/L Potassium (3.4-5.1) mmol/L Chloride (98-107) mmol/L Carbon Dioxide (22-32) mmol/L BUN (7-17) mg/dL Creatinine (0.52-1.04) mg/dL Estimated GFR (>60) mL/min BUN/Creatinine Ratio (6-22) Glucose (80-110) mg/dL Calcium (8.4-10.2) mg/dL Phosphorus 3.5 (2.8-4.1) mg/dL Magnesium 2.0 (1.6-2.3) mg/dL Total Bilirubin (0.2-1.3) mg/dL AST (14-36) IU/L ALT (<35) IU/L Alkaline Phosphatase (38-126) U/L Total Creatine Kinase (30-135) U/L CK-MB (CK-2) CK-MB (CK-2) Rel Index Troponin I (0.01-0.034) ng/mL NT-Pro-B Natriuret Pep 195 H (<125) pg/mL Total Protein (6.3-8.2) g/dL Albumin (3.5-5.0) g/dL Globulin (1.7-4.1) g/dL Albumin/Globulin Ratio (1.0-2.8) Lipase (23-300) U/L TSH 1.92 (0.47-4.68) uIU/mL SARS-CoV-2 (PCR) (Negative) 06/01/21 Range/Units 20:51 WBC (4.5-11.0) X10^3/uL RBC (4.0-5.2) X10^6/uL Hgb (12.0-16.0) g/dL Hct (36-46) % MCV (80-100) fL MCH (26-34) PG MCHC (30-36) % RDW (11.6-14.8) % Plt Count (150-400) X10^3/uL Neut % (Auto) (50-75) % Lymph % (Auto) (25-40) % [place] % (Auto) (3-14) % Eos % (Auto) (2-4) % Baso % (Auto) (0-2) % Neut # (Auto) (5867-1804) /uL Lymph # (Auto) (1519-5026) /uL [place] # (Auto) (0-900) /uL Eos # (Auto) (0-450) /uL Baso # (Auto) (0-100) /uL PT (10.1-12.7) SECONDS INR (0.9-1.3) APTT (26.4-36.2) SECONDS Sodium (137-145) mmol/L Potassium (3.4-5.1) mmol/L Chloride (98-107) mmol/L Carbon Dioxide (22-32) mmol/L BUN (7-17) mg/dL Creatinine (0.52-1.04) mg/dL Estimated GFR (>60) mL/min BUN/Creatinine Ratio (6-22) Glucose (80-110) mg/dL Calcium (8.4-10.2) mg/dL Phosphorus (2.8-4.1) mg/dL Magnesium (1.6-2.3) mg/dL Total Bilirubin (0.2-1.3) mg/dL AST (14-36) IU/L ALT (<35) IU/L Alkaline Phosphatase (38-126) U/L Total Creatine Kinase (30-135) U/L CK-MB (CK-2) CK-MB (CK-2) Rel Index Troponin I (0.01-0.034) ng/mL NT-Pro-B Natriuret Pep (<125) pg/mL Total Protein (6.3-8.2) g/dL Albumin (3.5-5.0) g/dL Globulin (1.7-4.1) g/dL Albumin/Globulin Ratio (1.0-2.8) Lipase (23-300) U/L TSH (0.47-4.68) uIU/mL SARS-CoV-2 (PCR) Negative (Negative) Imaging Data Chest x-ray: Radiologist's Impression: [address] [address] XRay Report Signed Patient: Laila Nino MR#: [id number] : 1950 Acct:[id number] Age/Sex: 71 / F Date of Service: 06/01/21 Loc: ED Accession Number: [id number] ?? Procedure: XR chest 1V Ordering Provider: Poly Samuel MD PROCEDURE:? XR CHEST 1V ? INDICATIONS:? chest pain ? TECHNIQUE:? One view of the chest was acquired.? ? COMPARISON:? [facility], CR, XR CHEST 1V, 11/02/2020, 14:06. ? FINDINGS:? ? Surgical changes and devices:? None.? ? Lungs and pleura:? Lungs are clear.? No pleural effusions or pneumothorax.? ? Mediastinum:? Mediastinal contours appear normal.? Heart size is normal.? Atherosclerotic vascular calcification noted in the aortic arch. ? Bones and chest wall:? No suspicious bony lesions.? Overlying soft tissues appear unremarkable.? ? IMPRESSION:? No acute cardiopulmonary findings ? ? ? Approved by: Kalia Leo M.D. on 06/01/2021 at 17:50? ECG Data Interpretation: Normal sinus rhythm no ST elevation or depression. Rate 63 MDM Narrative Medical decision making narrative: Appropriate for admission after review with the home care associate and vascular surgeon. Hospitalist agrees for admit. Treatment in place. Vascular surgery from [facility] will call tomorrow regarding results of the CT angiogram of the kidneys. Discharge Plan Departure Patient Disposition: Admitted as Observation Clinical Impression: Hypertensive urgency Admit Date/Time: 06/01/21 21:57 Admit Provider: Shanta Huertas
[2021-06-01 21:19] LABS: COVID19 -Nasal RAPID Negative (Negative)
[2021-06-01 22:54] LABS: Phosphorous 3.5 mg/dL (2.8-4.1)
[2021-06-01 23:04] LABS: NT-proBNP (BNP-Adult 18+) 195 pg/mL (<125)
[2021-06-01] MEDS: LACTATED RINGERS 1,000 ML 60 ML IV (23:04)
[2021-06-01] MEDS: carvediloL 12.5 MG TABLET 50 MG PO (23:05)
[2021-06-01] MEDS: VALSARTAN 80 MG TABLET 160 MG PO (23:06)
[2021-06-01] MEDS: DABIGATRAN 75 MG CAPSULE 150 MG PO (23:06)
[2021-06-01] MEDS: ISOSORBIDE MONONITRATE ER 30 MG TABLET 60 MG PO (23:07)
[2021-06-01 23:26] LABS: Thyroid Stimulating Hormone 1.92 uIU/mL (0.47-4.68)
[2021-06-01 23:33] LABS: COVID19 - ADMIT (NP swab/PCR) Negative (Negative)
[2021-06-02] VITALS (10 sets, daily range): BP systolic 130–195; BP diastolic 62–81; PULSE 57–67; RESP 15–18; TEMP 36.1–36.5; O2SAT 96–100
--- NOTE | 2021-06-02 03:18 | PM.HP.1 ---
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 In the past week has had elevated systolic blood pressures above 200/100.? Renal artery stenosis with stenting done at [facility] October [address] Sullivan[address] Dr. Reyes has her junior graphic designer at [facility] in [place].? Over the past weekend patient reports intermittent palpitations, chest pressure, increasing shortness of breath, increased lower extremity swelling at the end of the day, causing the patient to take her Lasix 20 mg over the past 6 days. She also reports intermittent. BENNETT, dizziness, and epistaxis. The patient contacted her junior graphic designer office from home was ass to check blood pressure while on the phone, patient was found to have a blood pressure in the 200s over 100s and was subsequently advised to come to the ED. Patients presented to the ED with an initial BP of 226/105. Upon admit patient is stable, resting in bed comfortably, in no distress, and has been given her evening blood pressure medications resulting in BP 161/72, HR 62, RR 14, O2 saturation 99% on room air. Patient continues to have mild chest pressure but does not feel that it elevates to the level of chest pain and so is not requesting her nitro. Patient has not been found to demonstrate atrial fibrillation on telemetry. Patient denies shortness of breath, headache, changes in vision, numbness, weakness, tingling, dizziness or epistaxis. CBC is unremarkable, patient has mild CAROLINA with a serum creatinine of 1.31, last creatinine's on file WNL, patient does have CKD G3a/A1, as evidence by a baseline GFR 55-44 today is slightly decreased at 39.8, patient's BUN 31 baseline between 18-29. Patient's troponin and lipase were within normal limits. Patient's EKG normal sinus rhythm with a rate of [address] or T-wave changes. Patient's chest x-ray demonstrated no acute cardiopulmonary processes. Patient to be admitted for hypertensive emergency, in the setting of renal vascular hypertension secondary to renal artery stenosis with mild CAROLINA on chronic kidney disease stage 3. ED Dr. Burnham Consultation #1: Spoke with cardiology Dr. Lawson.? Recommends patient observed overnight for blood pressure and may use hydralazine for any blood pressure spikes Time: 19:22 Consultation #2: Spoke with Trina Harper, vascular surgeon.? Recommend patient get hydrated tonight and CT angiogram in the morning.? Watch for blood pressure spikes Patient History Medical History (Updated 06/02/21 @ 03:52 by YOUNG Rea-CHERELLE) Angioedema Asthma Bone lesion CAD (coronary artery disease) (1979) Coccidioidomycosis (~1962) Dyslipidemia EBV infection (~1962) Elevated coronary artery calcium score 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 Hiatal hernia (~11/22/20) History of recurrent pneumonia History of stent insertion of renal artery Hypertension Left renal artery stenosis (~11/22/20) Macular degeneration, age related, nonexudative Myocardial infarction due to atherothrombotic coronary artery disease Ocular migraine Osteopenia of femoral neck, bilateral (~02/2019) Paroxysmal atrial fibrillation Parumbilical hernia (~11/22/20) Pressure ulcer, buttock, right, unstageable Prinzmetal's angina (1975) Proteus enteritis (~2018) Renal artery atherosclerosis (09/22/11) Severe obstructive sleep apnea-hypopnea syndrome (10/22/15) Shingles (2017) Statin intolerance Stenosis of celiac artery (~11/22/20) Systemic lupus erythematosus Thyroid nodule Surgical History H/O colonoscopy with polypectomy (~04/2020) History of arthroplasty (12/09/12) History of arthroplasty (01/20/13) History of cataract removal with insertion of prosthetic lens (2014) History of cholecystectomy History of tonsillectomy Stented coronary artery (2013) Family & Social History Family History Father Lung cancer Mother Parkinson's disease Breast cancer CAD (coronary artery disease) Social History: household members friend(s) Prior Living Arrangements House lives independently No caregiver/support person No Safety & Behavioral: Feels Safe in Current Yes Environment Been Physically Hurt or No Threatened By a Person Suicidal Ideation Description None Suicide Plan Description No Plan Tobacco & Substance use: Smoking Status Never smoker alcohol intake frequency 0-2 drinks per day Substance Use Type does not use Meds Home Medications and Allergies Home Medications Medication Instructions Recorded Confirmed Type dabigatran etexilate 150 mg 150 mg BID 01/07/19 06/01/21 History capsule (Pradaxa) isosorbide mononitrate 60 mg 60 mg PO BID 03/08/19 06/01/21 History tablet,extended release 24 hr albuterol sulfate 90 mcg/actuation 2 puff INHALATION Q4HP PRN #1 inh 05/23/19 06/01/21 Rx aerosol inhaler (Ventolin HFA) ranolazine 500 mg tablet,extended 500 mg PO BID 09/11/19 06/01/21 History release,12 hr (Ranexa) clopidogrel 75 mg tablet (Plavix) 75 mg PO DAILY 11/28/19 06/01/21 History Diovan 160 mg tablet (valsartan) 160 mg PO BID #180 tab NS 12/08/20 06/01/21 Rx furosemide 20 mg tablet 20 mg PO DAILY 01/10/21 06/01/21 History carvedilol 25 mg tablet 50 mg PO QPM 06/01/21 06/01/21 History carvedilol 25 mg tablet (Coreg) 37.5 mg PO QAM 06/01/21 06/01/21 History Allergies Allergy/AdvReac Type Severity Reaction Status Date / Time benazepril [From Lotensin] Allergy Severe angioadema Verified 04/15/21 16:18 adhesive Allergy Mild Verified 04/15/21 16:18 Sulfa (Sulfonamide Allergy Unknown Verified 04/15/21 16:18 Antibiotics) [SULFA (SULFONAMIDE ANTIBIOTICS)] Haemophilus B polysaccharide AdvReac Intermediate YRS AGO Verified 04/15/21 16:18 conj w CAUSED [From TriHIBit] FEVER, RECENTLY MOUTH SORES Beta-Blockers AdvReac Mild LOW Verified 04/15/21 16:18 (Beta-Adrenergic Bloc TOLERANCE - HR IN 30s - HOSPITALIZED diazepam AdvReac Mild OPPOSITE Verified 04/15/21 16:18 EFFECT, BECAME HYPER/INCOMPLIANT--O.K. WITH VERSED diphtheria,pertussis AdvReac Mild YRS AGO Verified 04/15/21 16:18 (acellular),te CAUSED [From TriHIBit] FEVER, RECENTLY MOUTH SORES pseudoephedrine AdvReac Mild INCREASED Verified 04/15/21 16:18 HEART RATE Review of Systems Review of Systems Narrative: All 12 point systems reviewed with the patient and are negative except otherwise documented. Exam Vital Signs (past 8 hours): - 06/01/21 19:30 06/01/21 20:00 06/01/21 20:30 Temperature Pulse Rate 58 L 62 63 Respiratory Rate 16 20 19 Blood Pressure 148/70 H 133/61 134/68 Pulse Oximetry 98 97 98 06/01/21 21:00 06/01/21 21:01 06/01/21 21:30 Temperature Pulse Rate 63 65 62 Respiratory Rate 16 16 27 H Blood Pressure 161/73 H 161/80 H Pulse Oximetry 98 98 81 L 06/01/21 22:00 06/01/21 22:02 06/02/21 00:07 Temperature 97.7 F 97.7 F Pulse Rate 63 67 67 Respiratory Rate 15 16 15 Blood Pressure 159/69 H 195/81 H 195/81 H Pulse Oximetry 98 99 99 06/02/21 01:02 06/02/21 01:04 06/02/21 01:10 Temperature Pulse Rate 60 57 L Respiratory Rate 15 Blood Pressure 130/70 Pulse Oximetry 96 96 98 06/02/21 01:12 Temperature Pulse Rate Respiratory Rate Blood Pressure Pulse Oximetry 100 Oxygen Delivery Method Nasal Cannula Oxygen Flow Rate 2 Narrative Exam Narrative: General: Patient is a well-developed, well-nourished delightful obese female, in no distress at this time. HEENT: Normocephalic, atraumatic, extraocular muscles intact, oral pharynx is clear and mucous membranes are moist. Neck is supple and symmetric, trachea is midline, no adenopathy, no thyroid enlargement, nontender, no masses palpated. Negative for JVD Chest: Normal AP diameter and contour without kyphoscoliosis, no nasal flaring, retractions, or tachypneic labored Lungs: Auscultation of all lung roe are clear without adventitious sounds, wheezes, rhonchi, or rales. Cardio: regular rate and rhythm without murmur, rubs, or gallops, no carotid bruit, no cardiac pulsations present. Abdomen: Soft nontender, negative for organomegaly, or masses. Bowel sounds are hyperactive present in all 4 quadrants without guarding or rebound, no CVA tenderness. Musculoskeletal: Muscle strength and tone are equal within normal limits, no deformity, crepitus, effusions, cyanosis, or clubbing present. +1 bilateral lower extremity edema. Full range of motion intact radial and pedal pulses are normal. Skin: Warm dry and intact without rashes, ulcerations or petechiae. Noted bruising present to left AC/upper arm. Neuro: Alert and orientated x3, strength is +5/5 in all extremities, sensation to touch intact, no gross deficits noted of cranial nerves. Psych: Patient has a well-kept appearance, appropriate affect, mental status attitude thought context and judgment are appropriate for age, patient is well informed, and diligent regarding her healthcare. Objective Labs Result Diagrams: 06/01/21 17:50 06/01/21 17:50 Labs: Laboratory Results - last 24 hr 06/01/21 06/01/21 06/01/21 17:50 17:50 17:50 WBC 5.1 RBC 4.54 Hgb 12.4 Hct 37.8 MCV 83.3 MCH 27.3 MCHC 32.8 RDW 15.5 H Plt Count 231 Neut % (Auto) 71.9 Lymph % (Auto) 17.3 L [place] % (Auto) 8.3 Eos % (Auto) 1.9 L Baso % (Auto) 0.6 Neut # (Auto) 3700 Lymph # (Auto) 900 L [place] # (Auto) 400 Eos # (Auto) 100 Baso # (Auto) 0 PT 13.6 H INR 1.2 APTT 69 H Sodium 140 Potassium 3.9 Chloride 106 Carbon Dioxide 26 BUN 31 H Creatinine 1.31 H Estimated GFR 39.8 L BUN/Creatinine Ratio 23.7 H Glucose 105 Calcium 9.5 Phosphorus Magnesium Total Bilirubin 1.0 AST 27 ALT 18 Alkaline Phosphatase 81 Total Creatine Kinase 73 CK-MB (CK-2) TNP CK-MB (CK-2) Rel Index TNP Troponin I < 0.012 NT-Pro-B Natriuret Pep Total Protein 7.4 Albumin 4.5 Globulin 2.9 Albumin/Globulin Ratio 1.6 Lipase 267 TSH Nasal Screen MRSA (PCR) SARS-CoV-2 (PCR) 06/01/21 06/01/21 06/01/21 17:50 17:50 17:50 WBC RBC Hgb Hct MCV MCH MCHC RDW Plt Count Neut % (Auto) Lymph % (Auto) [place] % (Auto) Eos % (Auto) Baso % (Auto) Neut # (Auto) Lymph # (Auto) [place] # (Auto) Eos # (Auto) Baso # (Auto) PT INR APTT Sodium Potassium Chloride Carbon Dioxide BUN Creatinine Estimated GFR BUN/Creatinine Ratio Glucose Calcium Phosphorus 3.5 Magnesium 2.0 Total Bilirubin AST ALT Alkaline Phosphatase Total Creatine Kinase CK-MB (CK-2) CK-MB (CK-2) Rel Index Troponin I NT-Pro-B Natriuret Pep 195 H Total Protein Albumin Globulin Albumin/Globulin Ratio Lipase TSH 1.92 Nasal Screen MRSA (PCR) SARS-CoV-2 (PCR) 06/01/21 06/01/21 06/01/21 20:51 22:35 23:40 WBC RBC Hgb Hct MCV MCH MCHC RDW Plt Count Neut % (Auto) Lymph % (Auto) [place] % (Auto) Eos % (Auto) Baso % (Auto) Neut # (Auto) Lymph # (Auto) [place] # (Auto) Eos # (Auto) Baso # (Auto) PT INR APTT Sodium Potassium Chloride Carbon Dioxide BUN Creatinine Estimated GFR BUN/Creatinine Ratio Glucose Calcium Phosphorus Magnesium Total Bilirubin AST ALT Alkaline Phosphatase Total Creatine Kinase CK-MB (CK-2) CK-MB (CK-2) Rel Index Troponin I NT-Pro-B Natriuret Pep Total Protein Albumin Globulin Albumin/Globulin Ratio Lipase TSH Nasal Screen MRSA (PCR) Negative for mrsa SARS-CoV-2 (PCR) Negative Negative Assessment & Plan Assessment & Plan narrative: Laila Nino is a 71-year-old female with a history of stage 3 chronic kidney disease, paroxysmal atrial fibrillation on Plavix and Pradaxa, [place] coronary artery disease stent placement x3 (4yrs ago), heart attack 2019 with cardiac stent placement x1=Total 4 cardiac stents, hyperlipidemia, severe CHIARA with CPAP, systemic lupus, history of left renal artery stent placement for worry of 2020 due to renovascular hypertension secondary to renal artery stenosis with angina, who presented to the ED today with complaints of hypertensive emergency.? Patients presented to the ED with an initial BP of 226/105.Patient to be admitted for hypertensive emergency, in the setting of renal vascular hypertension secondary to renal artery stenosis with mild CAROLINA on chronic kidney disease stage 3. 1. Hypertensive emergency, secondary to renovascular hypertension secondary to renal artery stenosis, in the setting of [place] coronary artery disease with heart stent placements x4, with angina and paroxysmal atrial fibrillation, Hyperlidiema, acute on chronic, present on admission-patient is stable -initial presenting BP 226/105, 195/81, patient also had intermittent headache, increasing shortness of breath, peripheral edema, chest discomfort/heaviness, irregular heart rate, and epistaxis. Heart Score:6 -Notify provider for SBP> 180 and/or DBP> 120 -BP 161/72, HR 62, RR 14, O2 saturation 99% on room air. EKG normal sinus rhythm with a rate of [address] or T-wave changes. chest x-ray demonstrated no acute cardiopulmonary processes. troponin and lipase were within normal -hydralazine 10 mg IV as needed -patient admitted telemedicine, V/S Q 4, I&O Q shift, O2 as needed for O2 saturations greater than 90% -Per cardiology recommendations patient placed on LR at 60 cc/HR-to facilitate resolution of CAROLINA so that patient can complete CTA of abdomen and pelvis tomorrow w/contrast for evaluation renal arteries/Stent placement. -outpatient follow-up with Cardiology Dr. Maggie Kumar -continue patient's nitro, carvedilol, Plavix, Pradaxa, isosorbide monitrate, ranolazine, Diovan -holding Lasix at this time 2. CAROLINA, Acute, in the setting of Chronic kidney disease stage G3a/A1, Acute on chronic, due to renovascular hypertension, present on admission -initial creatinine 1.31 (baseline within normal limits) GFR today 39.8 (baseline GFR 55-44), BUN 31 (baseline 18-29). -Monitor urinary output, call for urinary output less than 200 mL per shift or an SaO2 less than 92%, diet renal low-sodium low-potassium, 2 L fluid restriction -LR @60cc/HR gentle rehydration-reassess or fluid restriction depending on volume status. -Avoid discontinued nephrotoxic medications 3. Severe CHIARA with CPAP, acute on chronic, present on admission -respiratory evaluation ordered 4. Systemic lupus erythematous, chronic, not present on admission -managed by PCP 5. Morbid obesity as evidence by BMI of 42, acute on chronic, present on admission -consideration will be given to dietary counseling Code status: Full code Surrogate decision maker: Sister Parul AGEE COVID PCR: Negative COVID vaccination: Moderna October 2020 DVT/VTE prophylaxis: SCDs only Disposition: Estimated length of stay less than 2 midnights admit for observation and CTA abdomen pelvis for renal artery a visualization. I have utilized all available immediate resources to obtain, update, or review the patient's current medications. I confirmed that the patient's advanced care plan is present, Code status is documented and/or surrogate decision maker is listed in the patient's medical record. Time Spent With Patient Critical Care time: I spent a total of [] minutes of critical care time on this patient's care today; this time is exclusive of procedural time. Scores GCS Hansen coma scale eye opening: Spontaneous Hansen coma scale verbal response: Orientated Tree coma scale motor response: Obey commands Tree coma scale total score: 15 ABCD2 Age >= 60 years: yes Initial BP. Either SBP >= 140 or DBP >= 90.: yes Clinical features of the TIA: other symptoms Duration of symptoms: >= 60 minutes History of diabetes: no ABCD2 Score: 4 CHADS-VASc Congestive heart failure: no Hypertension: yes Age 75 years or older: no Diabetes mellitus: no Stroke, TIA, or TE: no Vascular disease: yes Age 65 to 74 years: yes Sex category (female): Female CHADS-VASc Score: 4
--- NOTE | 2021-06-02 03:23 | DI.CT.S_ITS ---
PROCEDURE: CT ANGIO ABDOMEN PELVIS INDICATIONS: Asses Renal artery stenosis/Lt renal artery stent-HTN urgenc TECHNIQUE: After the administration of intravenous contrast, 2.5 mm sections acquired from the diaphragm to the iliac crests. 10 mm maximum intensity projection (MIP) coronal and sagittal reformats were then performed. For radiation dose reduction, the following was used: automated exposure control. COMPARISON: [facility], CT, CT ANGIO ABDOMEN, 11/09/2020, 11:30. FINDINGS: Image quality: Excellent. Extravascular tissues: Lung bases are clear. Heart size is normal. Liver is normal in size. Anterior right hepatic cyst is unchanged. Gallbladder has been removed . Biliary system is non dilated. Pancreas enhances normally. Spleen is normal in size and enhancement. No adrenal nodules. Kidneys are demonstrate mild atrophy, without hydronephrosis. Parapelvic cysts are present bilaterally. Non-opacified bowel loops demonstrate normal wall thickness and caliber. No free fluid or air. No retroperitoneal or mesenteric adenopathy. No ventral hernias. No suspicious bony abnormalities. No vertebral body compression fractures. Prominent hiatal hernia. Abdominal aorta: Atherosclerotic calcifications are noted. No areas of hemodynamically significant stenosis, vascular occlusion or aneurysmal dilation are identified. Mesenteric arteries: Mesenteric arteries demonstrate moderate to severe proximal celiac stenosis. There is aneurysmal dilation of the distal hepatic artery measuring approximately 1.3 cm, proximal to the bifurcation of the left and right hepatic hepatic arteries. Renal arteries: Right renal artery demonstrates no areas of hemodynamically significant stenosis, vascular occlusion or aneurysmal dilation. As previously noted, there are 2 left renal arteries of the abdominal aorta with a markedly diminutive more superior artery. There is been interval placement in the more inferior, prominent artery previously noted to have moderate stenosis at the origin. The stent appears patent. Single right renal artery is present and widely patent. IMPRESSION: 1. Interval placement of left renal artery stent, appearing patent. 2. Hepatic cyst. Dictated by: Alix Brown M.D. on 06/02/2021 at 9:12 Approved by: Alix Brown M.D. on 06/02/2021 at 9:28
[2021-06-02 05:21] LABS: BUN Creatinine Ratio 22.1 (6-22); Blood Urea Nitrogen 25 mg/dL (7-17); Calcium 8.8 mg/dL (8.4-10.2); Carbon Dioxide 25 mmol/L (22-32); Chloride 109 mmol/L (98-107); Estimated Glomerular Filt Rate 47.2 mL/min (>60); Glucose 136 mg/dL (80-110); HEMOLYSIS < 15 (0-50); Potassium 3.5 mmol/L (3.4-5.1); Sodium 140 mmol/L (137-145)
[2021-06-02 05:30] LABS: Troponin I < 0.012 ng/mL (0.01-0.034)
[2021-06-02] MEDS: carvediloL 12.5 MG TABLET 37.5 MG PO (08:43)
[2021-06-02] MEDS: CLOPIDOGREL 75 MG TABLET PO (08:43)
[2021-06-02] MEDS: VALSARTAN 80 MG TABLET 160 MG PO (08:44)
[2021-06-02] MEDS: ISOSORBIDE MONONITRATE ER 30 MG TABLET 60 MG PO (08:44)
[2021-06-02] MEDS: DABIGATRAN 75 MG CAPSULE 150 MG PO (08:44)
[2021-06-02] MEDS: RANOLAZINE 500 MG TAB.ER.12H PO (08:45)
--- NOTE | 2021-06-02 10:31 | P.DS_ITS ---
History of Present Illness History of Present Illness Chief complaint: hypertensive crisis Narrative: Per Shanta Treadwell: Laila Nino is a 71-year-old female with a history of stage 3 chronic kidney disease, paroxysmal atrial fibrillation on Plavix and Pradaxa, [place] coronary artery disease stent placement x3 (4yrs ago), heart attack 2019 with cardiac stent placement x1=Total 4 cardiac stents, hyperlipidemia, severe CHIARA with CPAP, systemic lupus, history of left renal artery stent placement for worry of 2020 due to renovascular hypertension secondary to renal artery stenosis with angina, who presented to the ED today with complaints of hypertensive emergency.? In the past week has had elevated systolic blood pressures above 200/100.? Renal artery stenosis with stenting done at [facility] October [address] Sullivan.? Dr. Reyes has her bottom sander at [facility] in [place].? Over the past weekend patient reports intermittent palpitations, chest pressure, increasing shortness of breath, increased lower extremity swelling at the end of the day, causing the patient to take her Lasix 20 mg over the past 6 days.? She also reports intermittent. BENNETT, dizziness, and epistaxis.? The patient contacted her bottom sander office from home was ass to check blood pressure while on the phone, patient was found to have a blood pressure in the 200s over 100s and was subsequently advised to come to the ED. Patients presented to the ED with an initial BP of 226/105. Upon admit patient is stable, resting in bed comfortably, in no distress, and has been given her evening blood pressure medications? resulting in BP 161/72, HR 62, RR 14, O2 saturation 99% on room air.? Patient continues to have mild chest pressure but does not feel that it elevates to the level of chest pain and so is not requesting her nitro.? Patient has not been found to demonstrate atrial fibrillation on telemetry.? Patient denies shortness of breath, headache, changes in vision, numbness, weakness, tingling, dizziness or epistaxis.? CBC is unremarkable, patient has mild CAROLINA with a serum creatinine of 1.31, last creatinine's on file WNL, patient does have CKD G3a/A1, as evidence by a baseline GFR 55-44 today is slightly decreased at 39.8, patient's BUN 31 baseline between 18-29.? Patient's troponin and lipase were within normal limits.? Patient's EKG normal sinus rhythm with a rate of [address] or T- wave changes.? Patient's chest x-ray demonstrated no acute cardiopulmonary processes.? Patient to be admitted for hypertensive emergency, in the setting of renal vascular hypertension secondary to renal artery stenosis with mild CAROLINA on chronic kidney disease stage 3. ED Dr. Burnham Consultation #1: Spoke with cardiology Dr. Lawson.? Recommends patient observed overnight for blood pressure and may use hydralazine for any blood pressure spikes Time: 19:22 Consultation #2: Spoke with Trina Harper, vascular surgeon.? Recommend patient get hydrated tonight and CT angiogram in the morning.? Watch for blood pressure spikes Discharge Providers Provider Date of admission: 06/01/21 21:57 Discharge Date: 06/02/21 Primary care physician: Soledad Vick DO Consults: 06/01/21 22:14 Consult to Respiratory Therapy Evaluate & Treat Comment: severe CHIARA -Cpap Physician Instructions: Evaluate and treat Discharge provider: Anton Staley MD Summary Hospital Course Discharge Diagnosis: 1. Hypertensive urgency 2. CAROLINA 3. Severe CHIARA on CPAP 4. Lupus 5. Morbid obesity, BMI 42.1 6. CAD s/p stents 7. H/o renal artery stenosis s/p stent placement Hospital Course: Ms. Nino was admitted for having high blood pressure, she had been having palpitations. Recently she had been having fluid retention and was using lasix to help with diuresis. She was initially hypertensive with blood pressure >200s. She was given blood pressure medications and her blood pressure improved. She had a CT scan that showed a patent renal artery stent. Her blood pressure did improve and she felt asymptomatic. Her CAROLINA improved with IV fluid. Discussion was had about multiple possible changes to her blood pressure medications. Unfortunately, she has tried spironolactone, higher doses of lasix, clonidine with various side effects. She is on max doses of her current blood pressure medications. She was given a prescription for hydralazine to take if she becomes significantly hypertensive. She has close follow up with her supervisor coke handling within one week, and she had a closer follow arranged with cardiology. 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 Hiatal hernia (~11/22/20) History of recurrent pneumonia History of stent insertion of renal artery Hypertension Left renal artery stenosis (~11/22/20) Macular degeneration, age related, nonexudative Myocardial infarction due to atherothrombotic coronary artery disease Ocular migraine Osteopenia of femoral neck, bilateral (~02/2019) Paroxysmal atrial fibrillation Parumbilical hernia (~11/22/20) Pressure ulcer, buttock, right, unstageable Prinzmetal's angina (1975) Proteus enteritis (~2018) Renal artery atherosclerosis (09/22/11) Severe obstructive sleep apnea-hypopnea syndrome (10/22/15) Shingles (2016) Statin intolerance Stenosis of celiac artery (~11/22/20) Systemic lupus erythematosus Thyroid nodule Surgical History H/O colonoscopy with polypectomy (~04/2020) History of arthroplasty (12/09/12) History of arthroplasty (01/20/13) History of cataract removal with insertion of prosthetic lens (2014) History of cholecystectomy History of tonsillectomy Stented coronary artery (2013) Family History Father Lung cancer Mother Parkinson's disease Breast cancer CAD (coronary artery disease) Social History marital status: household members: friend(s) lives independently: No caregiver/support person: No pets and animals: Yes Smoking Status: Never smoker Discharge Plan Discharge Plan Patient Disposition: Home Provider Discharge Comment: Ms. Nino came in with high blood pressure. She had evaluation of her renal artery which showed that her stent was patent. She is given a prescription for hydralazine to take if her blood pressure becomes elevated over systolic of 180. She has follow up with her supervisor coke handling next week with Dr. Wu. We were able to get you an appointment with Dr. Nguyen's colleague Dr. Caballero at 2:05pm at [facility] in [place]. Discharge orders & Medications Prescriptions: New hydralazine 10 mg tablet 10 mg PO TID PRN (Reason: hypertension greater than systolic 180) Qty: 60 RF: 0 Continued valsartan [Diovan] 160 mg tablet 160 mg PO BID Qty: 180 RF: 1 isosorbide mononitrate 60 mg tablet extended release 24 hr 60 mg PO BID RF: 0 albuterol sulfate [Ventolin HFA] 90 mcg/actuation HFA aerosol inhaler 2 puff inhalation Q4HP PRN (Reason: shortness of breath or wheezing) Qty: 1 RF: 0 ranolazine [Ranexa] 500 mg tablet extended release 12 hr 500 mg PO BID RF: 0 clopidogrel [Plavix] 75 mg tablet 75 mg PO DAILY RF: 0 furosemide 20 mg tablet 20 mg PO DAILY RF: 0 Pradaxa 150 mg Capsule 150 mg BID RF: 0 carvedilol [Coreg] 25 mg tablet 37.5 mg PO QAM RF: 0 carvedilol 25 mg tablet 50 mg PO QPM RF: 0 Medication counseling provided by Pharmacist: Yes Follow up/Referrals: Ace Damon MD [Non-Staff] - 06/13/21 2:05 pm Cruz Nguyen MD [Non-Staff] - (urgent follow up for resistant hypertension) Soledad Vick DO [Primary Care Provider] - Visit Report/Discharge Packet Instructions: Hydralazine (Alternative Therapy), Malignant Hypertension, Chronic Kidney Disease Discharge Data Primary Care Provider: Soledad Vick
--- NOTE | 2021-06-02 13:16 | PC.NURSE ---
Provided d/c packet and educational material to pt and pt's sister. Reviewed dx, treatment, medications, med schedule, f/u appts. Pt has appts previously scheduled with nephrology, cardiology, and her PCP (tomorrow morning for PCP). Hospitalist called and had pt's cardiology appt rescheduled for earlier date. Pt verbalizes understanding. Removed PIV and heart monitor. Pt gathered all belongings and left at 1310. Ambulated with steady gait to POV accompanied by BEVERAGE SERVER. Pt was in no apparent distress at time of dc.
--- NOTE | 2021-06-02 16:09 | CM.DANOTE ---
DCP/Brief Assessment: Reviewed chart. Patient is a 71yr old female admitted to [facility] with hypertension. PCP is Dr. Vick. Primary payor 1)Medicare 2)[facility]. Attempted to meet with patient to discuss d/c planning. Patient discharged today before CM team could visit. Per RN patient had not d/c planning needs. P: Home [facility] Discharge Planning/Care Management CM Discharge Assessment Start: 06/02/21 16:07 Freq: Status: Active Protocol: Document 06/02/21 16:07 [facility] (Rec: 06/02/21 16:09 [facility] [id number]) Discharge Planning Assessment Assigned Process Control Programmer ÁNGEL Valdivia Contact Information Parul Ward (sister) ph# [phone] Advance Directives? Yes Advance Directives on File No History Provided By Medical Record Prior Living Arrangements House Household Members friend(s) Independent with ADL's Yes Is patient alert and oriented? Yes Caregiver for Another No Barriers to Discharge No Discharge Plan Home Referrals Initiated None needed Review Status In Process Next Review Type Continued Stay Review
== END 2021-06-02 13:10 | disposition home or self-care (01) | DRG 305 ==
LOC: ED 21:44 → ICU 22:45 → AC 06-03 07:08 → ICU 06-03 07:08
PROVIDERS: Emergency Medicine; Internal Medicine; Admitting Provider Nurse Practitioner Family; Emergency Provider Emergency Medicine; PCP Family Medicine; Referring Provider Emergency Medicine; Visit Provider Nurse Practitioner Family
DX: I16.0 Hypertensive urgency (principal); N17.9 Acute kidney failure, unspecified; Z68.41 Body mass index [BMI] 40.0-44.9, adult; I12.9 Hypertensive chronic kidney disease with stage 1 through stage 4 chronic kidney disease, or unspecified chronic kidney disease; N18.31 Chronic kidney disease, stage 3a; I70.1 Atherosclerosis of renal artery; I25.119 Atherosclerotic heart disease of native coronary artery with unspecified angina pectoris; G47.33 Obstructive sleep apnea (adult) (pediatric); E66.01 Morbid (severe) obesity due to excess calories; Z95.5 Presence of coronary angioplasty implant and graft; Z95.828 Presence of other vascular implants and grafts; Z20.822 Contact with and (suspected) exposure to COVID-19
CPT/HCPCS: 36415; 71045; 74174; 80048; 80053; 82550; 83690; 83735; 83880; 84100; 84443; 84484; 85025; 85610; 85730; 87635; 87797; 93005; 99283; 99284; C9803; G0378

== ENCOUNTER 2021-07-12 08:15 | Outpatient (RCR) | payer MEDICARE, BC, SELFPAY ==
--- NOTE | 2021-03-01 16:33 | PT.OIE ---
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 Hiatal hernia (~11/22/20) History of recurrent pneumonia History of stent insertion of renal artery Hypertension Left renal artery stenosis (~11/22/20) Macular degeneration, age related, nonexudative Osteopenia of femoral neck, bilateral (~02/2019) Paroxysmal atrial fibrillation Parumbilical hernia (~11/22/20) Pressure ulcer, buttock, right, unstageable Prinzmetal's angina (1975) Proteus enteritis (~2018) Renal artery atherosclerosis (09/22/11) Severe obstructive sleep apnea-hypopnea syndrome (10/22/15) Shingles (2016) Statin intolerance Stenosis of celiac artery (~11/22/20) Systemic lupus erythematosus Thyroid nodule Past Surgical History (Last Reviewed 02/24/21 @ 09:55 by Erick Jasso MD) H/O colonoscopy with polypectomy (~04/2020) History of arthroplasty (12/09/12) History of arthroplasty (01/20/13) History of cataract removal with insertion of prosthetic lens (2014) History of cholecystectomy History of tonsillectomy Stented coronary artery (2013) Visit Care Team Role Provider Type Soledad Vick DO Attending Provider Physician Primary Care Provider Referring Provider Specialty: [facility] Address: [address] [place] [address], [address], [facility] Email: [email or web address] Physical Therapy Initial Evaluation PT-OP-A Visit Information Start: 02/28/21 14:22 Freq: Status: Active Protocol: Document 03/01/21 09:06 BEN (Rec: 03/01/21 09:50 BEN [id number]) Out-Patient Physical Therapy Visit Information Visit Information Visit Type Initial Evaluation Visit Start Time 09:05 Visit Stop Time 10:00 Total Visit Minutes 55 Visit Number 1 Number of OVERNIGHT HOUSEPERSON Visits 0 Evaluation Information Evaluation Date 06/08/21 Precautions Precautions Medical History (Updated 01/19 @ 17:21 by Soledad Vick DO) Angioedema Asthma CAD (coronary artery disease) (1979) Coccidioidomycosis (~1962) Dyslipidemia EBV infection (~1962) Elevated coronary artery calcium score 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 Hiatal hernia (~11/22/20) History of recurrent pneumonia History of stent insertion of renal artery Hypertension Left renal artery stenosis (~ 11/22/20) Macular degeneration, age related, nonexudative Osteopenia of femoral neck, bilateral (~02/2019) Paroxysmal atrial fibrillation Parumbilical hernia (~11/22/20 ) Pressure ulcer, buttock, right , unstageable Prinzmetal's angina (1975) Proteus enteritis (~2018) Renal artery atherosclerosis ( 09/22/11) Severe obstructive sleep apnea -hypopnea syndrome (10/22/15) Shingles (2016) Statin intolerance Stenosis of celiac artery (~) Systemic lupus erythematosus Thyroid nodule Surgical History (Reviewed 06/14 @ 14:15 by Jaye Rosado DO) H/O colonoscopy with polypectomy (~04/2020) History of arthroplasty (12/09) History of arthroplasty (01/20) History of cataract removal with insertion of prosthetic lens (2014) History of cholecystectomy History of tonsillectomy Stented coronary artery (2013) PT-OP-B Current Condition Start: 02/28/21 14:22 Freq: Status: Active Protocol: Document 03/01/21 09:06 BEN (Rec: 03/01/21 09:50 [facility] [id number]) Current Condition History of Current Condition Onset Date 1 year Current Complaints right LE pain, back pain buttock pain History of Current Condition No known cause of pain, reports low back painful to move, turn in bed. Worst pain is right lateral knee pain. Sharp pain lateral right thigh pain goes down to pressley excrutiating. Recent knee x- ray showed total knee intact. Bone scan normal. Feels walking on wad of something on bottom of her foot. No leg giving way. Can't lay on right side due to severe pain right knee and pressley which is usual position of sleep, slightly better laying on her back with knee straight, but can't sleep on back and c/o severe back pain in am from laying on her back. Hurts to stand, walk, drive, have knee flexed. Uses heat to low back . Using pillow between knees laying on side not helpful. Can't take anti-inflammatory due to cardiac condition. Prior Treatments and Tests right TKA MS, cardiac stents Treatment Goals Patient/Caregiver Goals Decrease pain to allow her to sleep on her right side. Prior Functional Status Baseline Function- ADL's Modified Independent Baseline Function- Mobility Modified Independent Baseline Function- Gait slow, limited by breathing difficulty Baseline Function- Recreation/Hobbies sedentary activities, buddhism and friends Current Functional Impairments (Reported) Functional Limitations- ADL's painful Functional Limitations- Mobility/Gait painful Functional Limitations- Recreation/ slow, paced, sedentary, Hobbies painful all positions Personal Factors Other Personal Factors That May Effect complicated medical history, Therapy/Recovery current abscesses in teeth PT-OP-C Subjective Start: 02/28/21 14:22 Freq: Status: Active Protocol: Document 03/01/21 09:06 [facility] (Rec: 03/01/21 13:42 [facility] [id number]) Patient Questionnaires Lower Extremity Functional Scale LEFS Score 38 OP-PT Pain Assessment Pain Assessment Grid Paper Pain Assessment Grid Completed Yes Location right LE Pain Location Details lateral right UE from up to knee, bilateral buttocks and LB Intensity 7 Scale Used Numeric (0 - 10) Description Aching,Pressure,Radiating, Sharp,Shooting,Stabbing,Tender ,Throbbing Frequency Frequent Pain Aggravating Factors Position,Activity,Standing, Walking Pain Alleviating Factors Inactivity,Lying Supine Home Pain Medication Use Pain Medications Used No Comments Pain Comments unable to take anti- inflammatory due to cardiac issues. Tylenol not helpful, doesn't want to take anything stronger. PT-OP-E Functional Tests Start: 02/28/21 14:22 Freq: Status: Active Protocol: Document 03/01/21 09:06 [facility] (Rec: 03/01/21 13:42 [facility] [id number]) Functional Tests Five Times Sit to Stand Test Comments unable due to pain Timed Up and Go (TUG) Comments not done today due to pain PT-OP-F Manual Assessment Start: 02/28/21 14:22 Freq: Status: Active Protocol: Document 03/01/21 09:06 [facility] (Rec: 03/01/21 13:42 [facility] [id number]) Manual Assessments Soft Tissue Assessment Soft Tissue Mobility Assessment tightness right IT band to palpation PT-OP-G Mobility & Gait Start: 02/28/21 14:22 Freq: Status: Active Protocol: Document 03/01/21 09:06 [facility] (Rec: 03/01/21 13:42 [facility] [id number]) OP Mobility Evaluation Transfers Sit to Stand with much effort OP Gait Assessment Gait Gait Assistance Required: Independent Assistive Devices Assistive Device None Gait Deviations General Gait Pattern Antalgic Factors Limiting Gait Function Factors Limiting Gait Function Pain,Respiratory Distress Stair Climbing Evaluation Comments Stair Climbing Comments not done due to pain and deconditioning PT-OP-H Neuro Start: 02/28/21 14:22 Freq: Status: Active Protocol: Document 03/01/21 09:06 [facility] (Rec: 03/01/21 13:42 [facility] [id number]) Sensation Evaluation Gross Sensation Gross Sensation WNL PT-OP-J Posture/Palpation/Skin Start: 02/28/21 14:22 Freq: Status: Active Protocol: Document 03/01/21 09:06 [facility] (Rec: 03/01/21 13:42 [facility] [id number]) Posture Evaluation Position Sitting Head/C-Spine Posture Forward Head T-Spine Posture Increased Kyphosis L-Spine Posture Increased Lordosis Scapula Posture (L) Protracted,(R) Protracted Arm Posture (L) Internally Rotated,(R) Internally Rotated Pelvis Posture Anteriorly Tilted Hip Posture (L) Externally Rotated,(R) Externally Rotated Knee Posture (R) Genu Recurvatum Ankle/Foot Posture (L) Pronated,(R) Pronated Palpation Assessment Location right lateral gastroc Palpation Location right IT band Palpation Findings Soft Tissue Tightness, Tenderness IT band Palpation Location right IT band Palpation Findings Soft Tissue Tightness, Tenderness PT-OP-K Range of Motion Start: 02/28/21 14:22 Freq: Status: Active Protocol: Document 03/01/21 09:06 [facility] (Rec: 03/01/21 13:42 [facility] [id number]) Lumbar Spine Range of Motion Lumbar Spine Active Extension 0 ROM Limitations Pain Comments mod decreased all motions due to pain Hip Goniometric Range of Motion Hip luisa Hip ROM WFL Yes Knee Goniometric Range of Motion Knee luisa Knee ROM WFL Yes Hyper-Extension Active 5 Comments painful movement throughout the range right Ankle and Foot Goniometric Range of Motion Ankle and Foot luisa Ankle/Foot ROM WFL No Dorsiflexion with Knee Extended 0 Ankle and Foot ROM Limitations ROM Limitations Soft Tissue Tightness PT-OP-M Strength Start: 02/28/21 14:22 Freq: Status: Active Protocol: Document 03/01/21 09:06 [facility] (Rec: 03/01/21 13:42 [facility] [id number]) Hip Strength Hip Manual Muscle Testing luisa Flexion (L2) 4- Good- Extension (S1) 3+ Fair+ Abduction 4- Good- Adduction 4- Good- External Rotation 3+ Fair+ Internal Rotation 4- Good- Knee Strength Knee Manual Muscle Testing luisa Flexion (S2) 4 Good Extension (L3) 4 Good PT-OP-Q Treatments Start: 02/28/21 14:22 Freq: Status: Active Protocol: Document 03/01/21 09:06 [facility] (Rec: 03/01/21 13:42 [facility] [id number]) Manual Therapy Treatment Taping 1 Body Location right knee IT band Treatment Focus inhibition Type of Tape Kinesio Tape Skin Inspection intact Comments paper off tension, I strip, 5 squares long Self-Care/Home Management Treatment Education Patient Education Home Exercise Program PT-OP-R Modalities Start: 02/28/21 14:22 Freq: Status: Active Protocol: Document 03/01/21 09:06 [facility] (Rec: 03/01/21 13:42 [facility] [id number]) Hot Pack/Cold Pack Treatment Hot Pack Location right IT band and knee Patient Position Supine Treatment Duration (minutes) 15 Patient Tolerance Good Comments knees elevated on pillow PT-OP-T Assessment and Plan Start: 02/28/21 14:22 Freq: Status: Active Protocol: Document 03/01/21 09:06 [facility] (Rec: 03/01/21 13:42 [facility] [id number]) Physical Therapy Assessment Rehab Potential Rehabilitation Potential Good Evaluation Complexity Number of Personal Factors/Comorbidities 1-2 Number of Body Systems Impaired 3 Clinical Presentation at Evaluation Evolving Impairments Impairments Activity Tolerance,Pain,Soft Tissue Mobility,Strength Goals Four Impairment lower extremity functional scale score 38% Short Term Goal (STG) Improve LEFS to at least 50% STG Duration Concrete Products Dispatcher Goal (LTG) Improve LEFS to at least 65% LTG Duration 05/30/21 Three Impairment tightness and tenderness right IT band, decrease PA mobility right tib-fib Con[employer] Products Dispatcher Goal (LTG) Decrease tightness and tenderness right IT band, PA mobility right tib-fib joint WNL for improved right LE movement and function LTG Duration 05/30/21 Two Impairment weakness bilateral LE's right greater than left Short Term Goal (STG) Patient to be independent and compliant to progressive therapeutic exercise program without c/o increase in pain STG Duration 04/14/21 [employer] Products Dispatcher Goal (LTG) Patient to demonstrate bilateral LE strength of at least 4/5 throughout LTG Duration 05/30/21 One Impairment pain right LE 7/10 on pain scale Short Term Goal (STG) decrease pain to no greater than 4/10 with usual activities and ADL's , including right sidelying sleeping position STG Duration 04/14/21 [employer]crete Products Dispatcher Goal (LTG) Patient to report pain no greater than 2/10 right LE with all usual activities, ADL 's and her usual sleep position of right sidelying LTG Duration 05/30/21 Assessment Summary Assessment Patient presents with function -limiting severe pain in lateral right LE which is worse with weight-bearing and with flexed position interupting her ability to sleep and limiting her standing and walking as well. Also c/o pain bilateral buttocks and lumbar spine, but this is secondary to the LE pain. Patient unable to take anti-inflammatory due to cardiac conditions, doesn't want to take pain medication stronger than Tylenol, Tylenol doesn't reduce pain at all. Objective testing reveals tight IT band, hamstring, and lateral right calf, genu recurvatum right in standing and supine, posterior positioning and stiffness proximal tib-fib joint right, weakness throughout hips and knees. Spinal compression negative, traction negative for lumbar spine, knee ligament testing negative. Patient tender to the touch lateral joint line, tib-fib joint prox, IT band. Patient has prior right TKA and reports recent x-ray showed knee component intact. Has used heat on her low back and shoulders but hasn't tried on her LE, doesn't tolerate ice. Feel patient may benefit from PT to address above impairments, decrease her pain , and improve her activity tolerance and quality of life. Physical Therapy Plan Frequency and Duration Frequency of Treatment 2x/Week Duration of Treatment 12 weeks Plan of Care Start Date 03/01/21 Plan of Care End Date 05/30/21 Therapeutic Interventions Therapeutic Interventions Home Exercise Program,Joint Mobilizations,Manual Therapy, Neuromuscular Re-education, Patient/Caregiver Education, Self-Care/Home Management, Taping,Therapeutic Activities, Therapeutic Exercises Modalities Electric Stimulation,Hot Packs ,Infrared Therapy, Iontophoresis,Ultrasound Next Visit Focus/Plan Next Note Type Treatment Note Next Visit Plan Consider ultrasound to IT band , gentle joint mobs proximal tib-fib joint, assess response to kinesiotape and continue if helpful. Initiate ther ex for gentle strengthening. end with moist heat, consider IFES for pain management.
--- NOTE | 2021-03-01 16:34 | PT.OPPOC ---
Physical, Occupational & Speech Therapy At [facility] Current Diagnoses Pain in unspecified knee (03/01/21) Visit Care Team Role Provider Type Soledad Vick DO Attending Provider Physician Primary Care Provider Referring Provider Specialty: Family Practice Address: [address] [place] [address], [address], [facility] Email: [email or web address] Plan Of Care PT-OP-T Assessment and Plan Start: 02/28/21 14:22 Freq: Status: Active Protocol: Document 03/01/21 09:06 [facility] (Rec: 03/01/21 13:42 [facility] [id number]) Physical Therapy Assessment Rehab Potential Rehabilitation Potential Good Evaluation Complexity Number of Personal Factors/Comorbidities 1-2 Number of Body Systems Impaired 3 Clinical Presentation at Evaluation Evolving Impairments Impairments Activity Tolerance,Pain,Soft Tissue Mobility,Strength Goals Four Impairment lower extremity functional scale score 38% Short Term Goal (STG) Improve LEFS to at least 50% STG Duration Console Manager Goal (LTG) Improve LEFS to at least 65% LTG Duration 05/30/21 Three Impairment tightness and tenderness right IT band, decrease PA mobility right tib-fib Alf Goal (LTG) Decrease tightness and tenderness right IT band, PA mobility right tib-fib joint WNL for improved right LE movement and function LTG Duration 05/30/21 Two Impairment weakness bilateral LE's right greater than left Short Term Goal (STG) Patient to be independent and compliant to progressive therapeutic exercise program without c/o increase in pain STG Duration 04/14/21 Alf Goal (LTG) Patient to demonstrate bilateral LE strength of at least 4/5 throughout LTG Duration 05/30/21 One Impairment pain right LE 7/10 on pain scale Short Term Goal (STG) decrease pain to no greater than 4/10 with usual activities and ADL's , including right sidelying sleeping position STG Duration 04/14/21 Alf Goal (LTG) Patient to report pain no greater than 2/10 right LE with all usual activities, ADL 's and her usual sleep position of right sidelying LTG Duration 05/30/21 Assessment Summary Assessment Patient presents with function -limiting severe pain in lateral right LE which is worse with weight-bearing and with flexed position interupting her ability to sleep and limiting her standing and walking as well. Also c/o pain bilateral buttocks and lumbar spine, but this is secondary to the LE pain. Patient unable to take anti-inflammatory due to cardiac conditions, doesn't want to take pain medication stronger than Tylenol, Tylenol doesn't reduce pain at all. Objective testing reveals tight IT band, hamstring, and lateral right calf, genu recurvatum right in standing and supine, posterior positioning and stiffness proximal tib-fib joint right, weakness throughout hips and knees. Spinal compression negative, traction negative for lumbar spine, knee ligament testing negative. Patient tender to the touch lateral joint line, tib-fib joint prox, IT band. Patient has prior right TKA and reports recent x-ray showed knee component intact. Has used heat on her low back and shoulders but hasn't tried on her LE, doesn't tolerate ice. Feel patient may benefit from PT to address above impairments, decrease her pain , and improve her activity tolerance and quality of life. Physical Therapy Plan Frequency and Duration Frequency of Treatment 2x/Week Duration of Treatment 12 weeks Plan of Care Start Date 03/01/21 Plan of Care End Date 05/30/21 Therapeutic Interventions Therapeutic Interventions Home Exercise Program,Joint Mobilizations,Manual Therapy, Neuromuscular Re-education, Patient/Caregiver Education, Self-Care/Home Management, Taping,Therapeutic Activities, Therapeutic Exercises Modalities Electric Stimulation,Hot Packs ,Infrared Therapy, Iontophoresis,Ultrasound Next Visit Focus/Plan Next Note Type Treatment Note Next Visit Plan Consider ultrasound to IT band , gentle joint mobs proximal tib-fib joint, assess response to kinesiotape and continue if helpful. Initiate ther ex for gentle strengthening. end with moist heat, consider IFES for pain management. Plan of Care Dates Plan of Care Start Date 03/01/21 Plan of Care End Date 05/30/21 Electronically Signed by: Luh Weaver PT 03/01/21 [id number] Please Sign and Return: I have reviewed this Plan of Care and certify that the skilled therapy services above are required to meet the patient?s needs. Physician Signature Date Printed Name and Credentials Clinical Instructor Signature Printed Name and Credentials
--- NOTE | 2021-03-03 11:51 | PT.OTN ---
Current Diagnoses Pain in unspecified knee (03/03/21) Physical Therapy Treatment Note PT-OP-A Visit Information Start: 02/28/21 14:22 Freq: Status: Active Protocol: Document 03/03/21 09:06 SAK (Rec: 03/03/21 11:51 SAK [id number]) Out-Patient Physical Therapy Visit Information Visit Information Visit Type Treatment Note Visit Start Time 09:05 Visit Stop Time 01:00 Total Visit Minutes 55 Visit Number 2 Evaluation Information Evaluation Date 03/01/21 Precautions Precautions Medical History (Updated 01/19 @ 17:21 by Soledad Vick DO) Angioedema Asthma CAD (coronary artery disease) (1979) Coccidioidomycosis (~1962) Dyslipidemia EBV infection (~1962) Elevated coronary artery calcium score 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 Hiatal hernia (~11/22/20) History of recurrent pneumonia History of stent insertion of renal artery Hypertension Left renal artery stenosis (~ 11/22/20) Macular degeneration, age related, nonexudative Osteopenia of femoral neck, bilateral (~02/2019) Paroxysmal atrial fibrillation Parumbilical hernia (~11/22/20 ) Pressure ulcer, buttock, right , unstageable Prinzmetal's angina (1975) Proteus enteritis (~2018) Renal artery atherosclerosis ( 09/22/11) Severe obstructive sleep apnea -hypopnea syndrome (10/22/15) Shingles (2016) Statin intolerance Stenosis of celiac artery (~) Systemic lupus erythematosus Thyroid nodule Surgical History (Reviewed 06/14 @ 14:15 by Jaye Rosado DO) H/O colonoscopy with polypectomy (~04/2020) History of arthroplasty (12/09) History of arthroplasty (01/20) History of cataract removal with insertion of prosthetic lens (2014) History of cholecystectomy History of tonsillectomy Stented coronary artery (2013) PT-OP-B Current Condition Start: 02/28/21 14:22 Freq: Status: Active Protocol: Document 03/01/21 09:06 BEN (Rec: 03/01/21 09:50 SAK [id number]) Current Condition History of Current Condition Onset Date 1 year Current Complaints right LE pain, back pain buttock pain History of Current Condition No known cause of pain, reports low back painful to move, turn in bed. Worst pain is right lateral knee pain. Sharp pain lateral right thigh pain goes down to pressley excrutiating. Recent knee x- ray showed total knee intact. Bone scan normal. Feels walking on wad of something on bottom of her foot. No leg giving way. Can't lay on right side due to severe pain right knee and pressley which is usual position of sleep, slightly better laying on her back with knee straight, but can't sleep on back and c/o severe back pain in am from laying on her back. Hurts to stand, walk, drive, have knee flexed. Uses heat to low back . Using pillow between knees laying on side not helpful. Can't take anti-inflammatory due to cardiac condition. Prior Treatments and Tests right TKA CT, cardiac stents Treatment Goals Patient/Caregiver Goals Decrease pain to allow her to sleep on her right side. Prior Functional Status Baseline Function- ADL's Modified Independent Baseline Function- Mobility Modified Independent Baseline Function- Gait slow, limited by breathing difficulty Baseline Function- Recreation/Hobbies sedentary activities, anglican and friends Current Functional Impairments (Reported) Functional Limitations- ADL's painful Functional Limitations- Mobility/Gait painful Functional Limitations- Recreation/ slow, paced, sedentary, Hobbies painful all positions Personal Factors Other Personal Factors That May Effect complicated medical history, Therapy/Recovery current abscesses in teeth PT-OP-C Subjective Start: 02/28/21 14:22 Freq: Status: Active Protocol: Document 03/03/21 09:06 [facility] (Rec: 03/03/21 11:51 [facility] [id number]) OP-PT Subjective Patient Comments Patient Comments No new c/o PT-OP-E Functional Tests Start: 02/28/21 14:22 Freq: Status: Active Protocol: Document 03/01/21 09:06 [facility] (Rec: 03/01/21 13:42 [facility] [id number]) Functional Tests Five Times Sit to Stand Test Comments unable due to pain Timed Up and Go (TUG) Comments not done today due to pain PT-OP-F Manual Assessment Start: 02/28/21 14:22 Freq: Status: Active Protocol: Document 03/01/21 09:06 [facility] (Rec: 03/01/21 13:42 [facility] [id number]) Manual Assessments Soft Tissue Assessment Soft Tissue Mobility Assessment tightness right IT band to palpation PT-OP-G Mobility & Gait Start: 02/28/21 14:22 Freq: Status: Active Protocol: Document 03/01/21 09:06 SAK (Rec: 03/01/21 13:42 [facility] [id number]) OP Mobility Evaluation Transfers Sit to Stand with much effort OP Gait Assessment Gait Gait Assistance Required: Independent Assistive Devices Assistive Device None Gait Deviations General Gait Pattern Antalgic Factors Limiting Gait Function Factors Limiting Gait Function Pain,Respiratory Distress Stair Climbing Evaluation Comments Stair Climbing Comments not done due to pain and deconditioning PT-OP-H Neuro Start: 02/28/21 14:22 Freq: Status: Active Protocol: Document 03/01/21 09:06 SAK (Rec: 03/01/21 13:42 [facility] [id number]) Sensation Evaluation Gross Sensation Gross Sensation WNL PT-OP-J Posture/Palpation/Skin Start: 02/28/21 14:22 Freq: Status: Active Protocol: Document 03/01/21 09:06 SAK (Rec: 03/01/21 13:42 [facility] [id number]) Posture Evaluation Position Sitting Head/C-Spine Posture Forward Head T-Spine Posture Increased Kyphosis L-Spine Posture Increased Lordosis Scapula Posture (L) Protracted,(R) Protracted Arm Posture (L) Internally Rotated,(R) Internally Rotated Pelvis Posture Anteriorly Tilted Hip Posture (L) Externally Rotated,(R) Externally Rotated Knee Posture (R) Genu Recurvatum Ankle/Foot Posture (L) Pronated,(R) Pronated Palpation Assessment Location right lateral gastroc Palpation Location right IT band Palpation Findings Soft Tissue Tightness, Tenderness IT band Palpation Location right IT band Palpation Findings Soft Tissue Tightness, Tenderness PT-OP-K Range of Motion Start: 02/28/21 14:22 Freq: Status: Active Protocol: Document 03/01/21 09:06 SAK (Rec: 03/01/21 13:42 [facility] [id number]) Lumbar Spine Range of Motion Lumbar Spine Active Extension 0 ROM Limitations Pain Comments mod decreased all motions due to pain Hip Goniometric Range of Motion Hip luisa Hip ROM WFL Yes Knee Goniometric Range of Motion Knee luisa Knee ROM WFL Yes Hyper-Extension Active 5 Comments painful movement throughout the range right Ankle and Foot Goniometric Range of Motion Ankle and Foot luisa Ankle/Foot ROM WFL No Dorsiflexion with Knee Extended 0 Ankle and Foot ROM Limitations ROM Limitations Soft Tissue Tightness PT-OP-M Strength Start: 02/28/21 14:22 Freq: Status: Active Protocol: Document 03/01/21 09:06 [facility] (Rec: 03/01/21 13:42 [facility] [id number]) Hip Strength Hip Manual Muscle Testing luisa Flexion (L2) 4- Good- Extension (S1) 3+ Fair+ Abduction 4- Good- Adduction 4- Good- External Rotation 3+ Fair+ Internal Rotation 4- Good- Knee Strength Knee Manual Muscle Testing luisa Flexion (S2) 4 Good Extension (L3) 4 Good PT-OP-Q Treatments Start: 02/28/21 14:22 Freq: Status: Active Protocol: Document 03/03/21 09:06 [facility] (Rec: 03/03/21 11:51 [facility] [id number]) Therapeutic Exercises Supine Exercises Quad set Side right Reps/Minutes 10x TrA with glueal set Reps/Minutes 10x Comments verbal and manual cues TrA with ball squeeze Reps/Minutes 10x Comments verbal and manual cues TrA activation Reps/Minutes 10x2 Comments verbal and manual cues Abdominal breathing Reps/Minutes 6 min Comments verbal and manual cues Standing Exercises postural correction Reps/Minutes 2 min Comments verbal and manmual cues Manual Therapy Treatment Taping 1 Body Location right prox tib/fib Treatment Focus space correction, pain management Type of Tape kinesiotape Skin Inspection intact Comments 2 I strips 50-75% tension Self-Care/Home Management Treatment Education Patient Education Home Exercise Program Other Education Importance of postural correction exercises. PT-OP-R Modalities Start: 02/28/21 14:22 Freq: Status: Active Protocol: Document 03/03/21 09:06 [facility] (Rec: 03/03/21 11:51 [facility] [id number]) Hot Pack/Cold Pack Treatment Hot Pack Location lumbar spine Patient Position Supine Treatment Duration (minutes) 15 Patient Tolerance Fair Comments during ther ex PT-OP-T Assessment and Plan Start: 02/28/21 14:22 Freq: Status: Active Protocol: Document 03/03/21 09:06 [facility] (Rec: 03/03/21 11:51 [facility] [id number]) Physical Therapy Assessment Goals Four Impairment lower extremity functional scale score 38% Short Term Goal (STG) Improve LEFS to at least 50% STG Duration 7/22/212 [employer] Trimmer Goal (LTG) Improve LEFS to at least 65% LTG Duration 05/30/21 Three Impairment tightness and tenderness right IT band, decrease PA mobility right tib-fib [facility] Goal (LTG) Decrease tightness and tenderness right IT band, PA mobility right tib-fib joint WNL for improved right LE movement and function LTG Duration 05/30/21 Two Impairment weakness bilateral LE's right greater than left Short Term Goal (STG) Patient to be independent and compliant to progressive therapeutic exercise program without c/o increase in pain STG Duration 04/14/21 [facility] Goal (LTG) Patient to demonstrate bilateral LE strength of at least 4/5 throughout LTG Duration 05/30/21 One Impairment pain right LE 7/10 on pain scale Short Term Goal (STG) decrease pain to no greater than 4/10 with usual activities and ADL's , including right sidelying sleeping position STG Duration 04/14/21 Ladies' Hat Trimmer Goal (LTG) Patient to report pain no greater than 2/10 right LE with all usual activities, ADL 's and her usual sleep position of right sidelying LTG Duration 05/30/21 Assessment Summary Assessment Patient has much difficulty with correct abdominal breathing and activation of transverse abdominis, tends to expand belly with exhale, improved with cues and repetition. Reported PA of fibula on tibia felt good, alternative kinesiotape applied to facilitate anterior glide. Poor tolerance for laying supine even with moist heat to lumbar spine during ther ex, will try ther ex in seated position next session. Physical Therapy Plan Frequency and Duration Frequency of Treatment 2x/Week Duration of Treatment 12 weeks Plan of Care Start Date 03/01/21 Plan of Care End Date 05/30/21 Therapeutic Interventions Therapeutic Interventions Home Exercise Program,Joint Mobilizations,Manual Therapy, Neuromuscular Re-education, Patient/Caregiver Education, Self-Care/Home Management, Taping,Therapeutic Activities, Therapeutic Exercises Modalities Electric Stimulation,Hot Packs ,Infrared Therapy, Iontophoresis,Ultrasound Next Visit Focus/Plan Next Note Type Treatment Note Next Visit Plan Ultrasound to tib fib joint, cont joint mob, ther ex; all in sitting due to poor tolerance for supine. Core stab ex.
--- NOTE | 2021-03-16 16:28 | PT.OTN ---
Current Diagnoses Pain in unspecified knee (03/16/21) Physical Therapy Treatment Note PT-OP-A Visit Information Start: 02/28/21 14:22 Freq: Status: Active Protocol: Document 03/16/21 15:11 [facility] (Rec: 03/16/21 16:10 [facility] [id number]) Out-Patient Physical Therapy Visit Information Visit Information Visit Type Treatment Note Visit Start Time 15:15 Visit Stop Time 16:10 Total Visit Minutes 55 Visit Number 3 Precautions Precautions Medical History (Updated 01/19 @ 17:21 by Soledad Vick DO) Angioedema Asthma CAD (coronary artery disease) (1979) Coccidioidomycosis (~1962) Dyslipidemia EBV infection (~1962) Elevated coronary artery calcium score 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 Hiatal hernia (~11/22/20) History of recurrent pneumonia History of stent insertion of renal artery Hypertension Left renal artery stenosis (~ 11/22/20) Macular degeneration, age related, nonexudative Osteopenia of femoral neck, bilateral (~02/2019) Paroxysmal atrial fibrillation Parumbilical hernia (~11/22/20 ) Pressure ulcer, buttock, right , unstageable Prinzmetal's angina (1975) Proteus enteritis (~2018) Renal artery atherosclerosis ( 09/22/11) Severe obstructive sleep apnea -hypopnea syndrome (10/22/15) Shingles (2016) Statin intolerance Stenosis of celiac artery (~) Systemic lupus erythematosus Thyroid nodule Surgical History (Reviewed 06/14 @ 14:15 by Jaye Rosado DO) H/O colonoscopy with polypectomy (~04/2020) History of arthroplasty (12/09) History of arthroplasty (01/20) History of cataract removal with insertion of prosthetic lens (2014) History of cholecystectomy History of tonsillectomy Stented coronary artery (2013) PT-OP-B Current Condition Start: 02/28/21 14:22 Freq: Status: Active Protocol: Document 03/16/21 15:11 [facility] (Rec: 03/16/21 16:10 [facility] [id number]) Current Condition History of Current Condition Onset Date 1 year Current Complaints right LE pain, back pain buttock pain History of Current Condition No known cause of pain, reports low back painful to move, turn in bed. Worst pain is right lateral knee pain. Sharp pain lateral right thigh pain goes down to pressley excrutiating. Recent knee x- ray showed total knee intact. Bone scan normal. Feels walking on wad of something on bottom of her foot. No leg giving way. Can't lay on right side due to severe pain right knee and pressley which is usual position of sleep, slightly better laying on her back with knee straight, but can't sleep on back and c/o severe back pain in am from laying on her back. Hurts to stand, walk, drive, have knee flexed. Uses heat to low back . Using pillow between knees laying on side not helpful. Can't take anti-inflammatory due to cardiac condition. Prior Treatments and Tests right TKA [place], cardiac stents PT-OP-C Subjective Start: 02/28/21 14:22 Freq: Status: Active Protocol: Document 03/16/21 15:11 [facility] (Rec: 03/16/21 16:10 [facility] [id number]) OP-PT Subjective Patient Comments Patient Comments pain in right buttock has gotten worse since has last seen. Knee is some better, pressley pain is no better: I can 't even touch it. Having difficulty with deep breathing exercises. I guess I've beeen breathing wrong my whole life. PT-OP-E Functional Tests Start: 02/28/21 14:22 Freq: Status: Active Protocol: Document 03/01/21 09:06 [facility] (Rec: 03/01/21 13:42 [facility] [id number]) Functional Tests Five Times Sit to Stand Test Comments unable due to pain Timed Up and Go (TUG) Comments not done today due to pain PT-OP-F Manual Assessment Start: 02/28/21 14:22 Freq: Status: Active Protocol: Document 03/01/21 09:06 [facility] (Rec: 03/01/21 13:42 [facility] [id number]) Manual Assessments Soft Tissue Assessment Soft Tissue Mobility Assessment tightness right IT band to palpation PT-OP-G Mobility & Gait Start: 02/28/21 14:22 Freq: Status: Active Protocol: Document 03/01/21 09:06 [facility] (Rec: 03/01/21 13:42 [facility] [id number]) OP Mobility Evaluation Transfers Sit to Stand with much effort OP Gait Assessment Gait Gait Assistance Required: Independent Assistive Devices Assistive Device None Gait Deviations General Gait Pattern Antalgic Factors Limiting Gait Function Factors Limiting Gait Function Pain,Respiratory Distress Stair Climbing Evaluation Comments Stair Climbing Comments not done due to pain and deconditioning PT-OP-H Neuro Start: 02/28/21 14:22 Freq: Status: Active Protocol: Document 03/01/21 09:06 [facility] (Rec: 03/01/21 13:42 [facility] [id number]) Sensation Evaluation Gross Sensation Gross Sensation WNL PT-OP-J Posture/Palpation/Skin Start: 02/28/21 14:22 Freq: Status: Active Protocol: Document 03/01/21 09:06 SAK (Rec: 03/01/21 13:42 [facility] [id number]) Posture Evaluation Position Sitting Head/C-Spine Posture Forward Head T-Spine Posture Increased Kyphosis L-Spine Posture Increased Lordosis Scapula Posture (L) Protracted,(R) Protracted Arm Posture (L) Internally Rotated,(R) Internally Rotated Pelvis Posture Anteriorly Tilted Hip Posture (L) Externally Rotated,(R) Externally Rotated Knee Posture (R) Genu Recurvatum Ankle/Foot Posture (L) Pronated,(R) Pronated Palpation Assessment Location right lateral gastroc Palpation Location right IT band Palpation Findings Soft Tissue Tightness, Tenderness IT band Palpation Location right IT band Palpation Findings Soft Tissue Tightness, Tenderness PT-OP-K Range of Motion Start: 02/28/21 14:22 Freq: Status: Active Protocol: Document 03/01/21 09:06 [facility] (Rec: 03/01/21 13:42 [facility] [id number]) Lumbar Spine Range of Motion Lumbar Spine Active Extension 0 ROM Limitations Pain Comments mod decreased all motions due to pain Hip Goniometric Range of Motion Hip luisa Hip ROM WFL Yes Knee Goniometric Range of Motion Knee luisa Knee ROM WFL Yes Hyper-Extension Active 5 Comments painful movement throughout the range right Ankle and Foot Goniometric Range of Motion Ankle and Foot luisa Ankle/Foot ROM WFL No Dorsiflexion with Knee Extended 0 Ankle and Foot ROM Limitations ROM Limitations Soft Tissue Tightness PT-OP-M Strength Start: 02/28/21 14:22 Freq: Status: Active Protocol: Document 03/01/21 09:06 [facility] (Rec: 03/01/21 13:42 [facility] [id number]) Hip Strength Hip Manual Muscle Testing luisa Flexion (L2) 4- Good- Extension (S1) 3+ Fair+ Abduction 4- Good- Adduction 4- Good- External Rotation 3+ Fair+ Internal Rotation 4- Good- Knee Strength Knee Manual Muscle Testing luisa Flexion (S2) 4 Good Extension (L3) 4 Good PT-OP-Q Treatments Start: 02/28/21 14:22 Freq: Status: Active Protocol: Document 03/16/21 15:11 [facility] (Rec: 03/16/21 16:10 [facility] [id number]) Cardio Equipment Recumbent Stepper (Sci-Fit) Duration (Minutes) 10 Resistance 1 Seat Position 12 Therapeutic Exercises Supine Exercises piriformis stretch Reps/Minutes 2x30 Comments manual SKTC Reps/Minutes 2x30 Abdominal breathing Reps/Minutes 5 min Comments verbal and manual cues Sitting Exercises TrA with hip abd/ER Equipment Used L2 TB Reps/Minutes 10x TrA with pillow squeeze Reps/Minutes 10x TrA with gluteal set Reps/Minutes 10x TrA Reps/Minutes 5x diaphragmatic and lateral chest breathing Comments verbal and manual cues Self-Care/Home Management Treatment Education Patient Education Home Exercise Program,Pain Management Other Education diaphragmatic breathing Use of heat to right buttock PT-OP-R Modalities Start: 02/28/21 14:22 Freq: Status: Active Protocol: Document 03/16/21 15:11 [facility] (Rec: 03/16/21 16:28 [facility] [id number]) Hot Pack/Cold Pack Treatment Hot Pack Location lumbar spine, buttocks Patient Position Sitting Treatment Duration (minutes) 15 Patient Tolerance Good PT-OP-T Assessment and Plan Start: 02/28/21 14:22 Freq: Status: Active Protocol: Document 03/16/21 15:11 [facility] (Rec: 03/16/21 16:10 [facility] [id number]) Physical Therapy Assessment Goals Four Impairment lower extremity functional scale score 38% Short Term Goal (STG) Improve LEFS to at least 50% STG Duration Jail Goal (LTG) Improve LEFS to at least 65% LTG Duration 05/30/21 Three Impairment tightness and tenderness right IT band, decrease PA mobility right tib-fib Jail Goal (LTG) Decrease tightness and tenderness right IT band, PA mobility right tib-fib joint WNL for improved right LE movement and function LTG Duration 05/30/21 Two Impairment weakness bilateral LE's right greater than left Short Term Goal (STG) Patient to be independent and compliant to progressive therapeutic exercise program without c/o increase in pain STG Duration 04/14/21 Jail Goal (LTG) Patient to demonstrate bilateral LE strength of at least 4/5 throughout LTG Duration 05/30/21 One Impairment pain right LE 7/10 on pain scale Short Term Goal (STG) decrease pain to no greater than 4/10 with usual activities and ADL's , including right sidelying sleeping position STG Duration 04/14/21 Jail Goal (LTG) Patient to report pain no greater than 2/10 right LE with all usual activities, ADL 's and her usual sleep position of right sidelying LTG Duration 05/30/21 Assessment Summary Assessment Patient demonstrating some improvement in abdominal breathing and activation of TrA. Knee pain some better. Nerve impingement in buttock appears may be causing pressley pain; worked on piriformis flexibility, and did ultrasound to right piriformis followed by moist heat. Improved tolerance for HEP in seated; demonstrated good understanding. Physical Therapy Plan Frequency and Duration Frequency of Treatment 2x/Week Duration of Treatment 12 weeks Plan of Care Start Date 03/01/21 Plan of Care End Date 05/30/21 Therapeutic Interventions Therapeutic Interventions Home Exercise Program,Joint Mobilizations,Manual Therapy, Neuromuscular Re-education, Patient/Caregiver Education, Self-Care/Home Management, Taping,Therapeutic Activities, Therapeutic Exercises Modalities Electric Stimulation,Hot Packs ,Infrared Therapy, Iontophoresis,Ultrasound Next Visit Focus/Plan Next Note Type Treatment Note Next Visit Plan Assess response to last treatment, review seated HEP, use of heat at home. Piriformis stretch in sitting. If helpful continue ultrasound, initiate deep tissue work to piriformis as tolerated.
--- NOTE | 2021-03-21 16:28 | PT.OTN ---
Current Diagnoses Pain in unspecified knee (03/21/21) Physical Therapy Treatment Note PT-OP-A Visit Information Start: 02/28/21 14:22 Freq: Status: Active Protocol: Document 03/21/21 15:24 SAK (Rec: 03/21/21 15:43 SAK [id number]) Out-Patient Physical Therapy Visit Information Visit Information Visit Type Treatment Note Visit Start Time 15:15 Visit Stop Time 16:10 Total Visit Minutes 55 Visit Number 4 Precautions Precautions Medical History (Updated 01/19 @ 17:21 by Soledad Vick DO) Angioedema Asthma CAD (coronary artery disease) (1979) Coccidioidomycosis (~1962) Dyslipidemia EBV infection (~1962) Elevated coronary artery calcium score 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 Hiatal hernia (~11/22/20) History of recurrent pneumonia History of stent insertion of renal artery Hypertension Left renal artery stenosis (~ 11/22/20) Macular degeneration, age related, nonexudative Osteopenia of femoral neck, bilateral (~02/2019) Paroxysmal atrial fibrillation Parumbilical hernia (~11/22/20 ) Pressure ulcer, buttock, right , unstageable Prinzmetal's angina (1975) Proteus enteritis (~2018) Renal artery atherosclerosis ( 09/22/11) Severe obstructive sleep apnea -hypopnea syndrome (10/22/15) Shingles (2016) Statin intolerance Stenosis of celiac artery (~) Systemic lupus erythematosus Thyroid nodule Surgical History (Reviewed 06/14 @ 14:15 by Jaye Rosado DO) H/O colonoscopy with polypectomy (~04/2020) History of arthroplasty (12/09) History of arthroplasty (01/20) History of cataract removal with insertion of prosthetic lens (2014) History of cholecystectomy History of tonsillectomy Stented coronary artery (2013) PT-OP-B Current Condition Start: 02/28/21 14:22 Freq: Status: Active Protocol: Document 03/16/21 15:11 SAK (Rec: 03/16/21 16:10 SAK [id number]) Current Condition History of Current Condition Onset Date 1 year Current Complaints right LE pain, back pain buttock pain History of Current Condition No known cause of pain, reports low back painful to move, turn in bed. Worst pain is right lateral knee pain. Sharp pain lateral right thigh pain goes down to pressley excrutiating. Recent knee x- ray showed total knee intact. Bone scan normal. Feels walking on wad of something on bottom of her foot. No leg giving way. Can't lay on right side due to severe pain right knee and pressley which is usual position of sleep, slightly better laying on her back with knee straight, but can't sleep on back and c/o severe back pain in am from laying on her back. Hurts to stand, walk, drive, have knee flexed. Uses heat to low back . Using pillow between knees laying on side not helpful. Can't take anti-inflammatory due to cardiac condition. Prior Treatments and Tests right TKA [place], cardiac stents PT-OP-C Subjective Start: 02/28/21 14:22 Freq: Status: Active Protocol: Document 03/21/21 15:24 [facility] (Rec: 03/21/21 16:28 [facility] [id number]) OP-PT Subjective Patient Comments Patient Comments knee pain feels like it is improving, buttock pain persists. PT-OP-E Functional Tests Start: 02/28/21 14:22 Freq: Status: Active Protocol: Document 03/01/21 09:06 [facility] (Rec: 03/01/21 13:42 [facility] [id number]) Functional Tests Five Times Sit to Stand Test Comments unable due to pain Timed Up and Go (TUG) Comments not done today due to pain PT-OP-F Manual Assessment Start: 02/28/21 14:22 Freq: Status: Active Protocol: Document 03/01/21 09:06 [facility] (Rec: 03/01/21 13:42 [facility] [id number]) Manual Assessments Soft Tissue Assessment Soft Tissue Mobility Assessment tightness right IT band to palpation PT-OP-G Mobility & Gait Start: 02/28/21 14:22 Freq: Status: Active Protocol: Document 03/01/21 09:06 [facility] (Rec: 03/01/21 13:42 [facility] [id number]) OP Mobility Evaluation Transfers Sit to Stand with much effort OP Gait Assessment Gait Gait Assistance Required: Independent Assistive Devices Assistive Device None Gait Deviations General Gait Pattern Antalgic Factors Limiting Gait Function Factors Limiting Gait Function Pain,Respiratory Distress Stair Climbing Evaluation Comments Stair Climbing Comments not done due to pain and deconditioning PT-OP-H Neuro Start: 02/28/21 14:22 Freq: Status: Active Protocol: Document 03/01/21 09:06 SAK (Rec: 03/01/21 13:42 [facility] [id number]) Sensation Evaluation Gross Sensation Gross Sensation WNL PT-OP-J Posture/Palpation/Skin Start: 02/28/21 14:22 Freq: Status: Active Protocol: Document 03/01/21 09:06 SAK (Rec: 03/01/21 13:42 [facility] [id number]) Posture Evaluation Position Sitting Head/C-Spine Posture Forward Head T-Spine Posture Increased Kyphosis L-Spine Posture Increased Lordosis Scapula Posture (L) Protracted,(R) Protracted Arm Posture (L) Internally Rotated,(R) Internally Rotated Pelvis Posture Anteriorly Tilted Hip Posture (L) Externally Rotated,(R) Externally Rotated Knee Posture (R) Genu Recurvatum Ankle/Foot Posture (L) Pronated,(R) Pronated Palpation Assessment Location right lateral gastroc Palpation Location right IT band Palpation Findings Soft Tissue Tightness, Tenderness IT band Palpation Location right IT band Palpation Findings Soft Tissue Tightness, Tenderness PT-OP-K Range of Motion Start: 02/28/21 14:22 Freq: Status: Active Protocol: Document 03/01/21 09:06 [facility]AK (Rec: 03/01/21 13:42 [facility] [id number]) Lumbar Spine Range of Motion Lumbar Spine Active Extension 0 ROM Limitations Pain Comments mod decreased all motions due to pain Hip Goniometric Range of Motion Hip luisa Hip ROM WFL Yes Knee Goniometric Range of Motion Knee luisa Knee ROM WFL Yes Hyper-Extension Active 5 Comments painful movement throughout the range right Ankle and Foot Goniometric Range of Motion Ankle and Foot luisa Ankle/Foot ROM WFL No Dorsiflexion with Knee Extended 0 Ankle and Foot ROM Limitations ROM Limitations Soft Tissue Tightness PT-OP-M Strength Start: 02/28/21 14:22 Freq: Status: Active Protocol: Document 03/01/21 09:06 SAK (Rec: 03/01/21 13:42 [facility] [id number]) Hip Strength Hip Manual Muscle Testing luisa Flexion (L2) 4- Good- Extension (S1) 3+ Fair+ Abduction 4- Good- Adduction 4- Good- External Rotation 3+ Fair+ Internal Rotation 4- Good- Knee Strength Knee Manual Muscle Testing luisa Flexion (S2) 4 Good Extension (L3) 4 Good PT-OP-Q Treatments Start: 02/28/21 14:22 Freq: Status: Active Protocol: Document 03/21/21 15:24 [facility] (Rec: 03/21/21 15:43 [facility] [id number]) Cardio Equipment Recumbent Stepper (Sci-Fit) Duration (Minutes) 10 Resistance 1 Seat Position 12 Gym Equipment Shuttle Recovery Bilateral Squats Resistance 50 Shuttle Recovery Platform Stable Reps/Time 10x2 Therapeutic Exercises Supine Exercises piriformis stretch Reps/Minutes 2x30 Comments manual SKTC Reps/Minutes 2x30 Abdominal breathing Reps/Minutes 5 min Comments verbal and manual cues Self-Care/Home Management Treatment Education Other Education diaphragmatic breathing PT-OP-R Modalities Start: 02/28/21 14:22 Freq: Status: Active Protocol: Document 03/21/21 15:24 [facility] (Rec: 03/21/21 15:43 [facility] [id number]) Hot Pack/Cold Pack Treatment Hot Pack Location lumbar spine, buttocks Patient Position Sitting Treatment Duration (minutes) 15 Patient Tolerance Good Ultrasound Therapy Treatment right buttock Treatment Duration (minutes) 8 Patient Position Sidelying Coupling Medium Ultrasound Gel Frequency Setting (mHz) 1 Duty Cycle 100% Intensity Setting (w/cm2) 1.5 Comments piriformis PT-OP-T Assessment and Plan Start: 02/28/21 14:22 Freq: Status: Active Protocol: Document 03/21/21 15:24 [facility] (Rec: 03/21/21 15:43 [facility] [id number]) Physical Therapy Assessment Goals Four Impairment lower extremity functional scale score 38% Short Term Goal (STG) Improve LEFS to at least 50% STG Duration Slot Router Goal (LTG) Improve LEFS to at least 65% LTG Duration 05/30/21 Three Impairment tightness and tenderness right IT band, decrease PA mobility right tib-fib Slot Router Goal (LTG) Decrease tightness and tenderness right IT band, PA mobility right tib-fib joint WNL for improved right LE movement and function LTG Duration 05/30/21 Two Impairment weakness bilateral LE's right greater than left Short Term Goal (STG) Patient to be independent and compliant to progressive therapeutic exercise program without c/o increase in pain STG Duration 04/14/21 Slot Router Goal (LTG) Patient to demonstrate bilateral LE strength of at least 4/5 throughout LTG Duration 05/30/21 One Impairment pain right LE 7/10 on pain scale Short Term Goal (STG) decrease pain to no greater than 4/10 with usual activities and ADL's , including right sidelying sleeping position STG Duration 04/14/21 Slot Router Goal (LTG) Patient to report pain no greater than 2/10 right LE with all usual activities, ADL 's and her usual sleep position of right sidelying LTG Duration 05/30/21 Assessment Summary Assessment Patient reported some decrease in knee pain, worst pain in buttock. Continue with ultrasound, manual treatment, and moist heat. Added shuttle leg press for strengthening with good tolerance. Physical Therapy Plan Frequency and Duration Frequency of Treatment 2x/Week Duration of Treatment 12 weeks Plan of Care Start Date 03/01/21 Plan of Care End Date 05/30/21 Therapeutic Interventions Therapeutic Interventions Home Exercise Program,Joint Mobilizations,Manual Therapy, Neuromuscular Re-education, Patient/Caregiver Education, Self-Care/Home Management, Taping,Therapeutic Activities, Therapeutic Exercises Modalities Electric Stimulation,Hot Packs ,Infrared Therapy, Iontophoresis,Ultrasound Next Visit Focus/Plan Next Visit Plan Piriformis stretch in sitting. Continue ultrasound and deep tissue work. Deep tissue work to right quad as well.
--- NOTE | 2021-03-23 14:29 | PT.OTN ---
Current Diagnoses Pain in unspecified knee (03/23/21) Physical Therapy Treatment Note PT-OP-A Visit Information Start: 02/28/21 14:22 Freq: Status: Active Protocol: Document 03/23/21 09:06 [facility] (Rec: 03/23/21 09:46 SAK [id number]) Out-Patient Physical Therapy Visit Information Visit Information Visit Type Treatment Note Visit Start Time 09:00 Visit Stop Time 09:55 Total Visit Minutes 55 Visit Number 5 Precautions Precautions Medical History (Updated 01/19 @ 17:21 by Soledad Vick DO) Angioedema Asthma CAD (coronary artery disease) (1979) Coccidioidomycosis (~1962) Dyslipidemia EBV infection (~1962) Elevated coronary artery calcium score 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 Hiatal hernia (~11/22/20) History of recurrent pneumonia History of stent insertion of renal artery Hypertension Left renal artery stenosis (~ 11/22/20) Macular degeneration, age related, nonexudative Osteopenia of femoral neck, bilateral (~02/2019) Paroxysmal atrial fibrillation Parumbilical hernia (~11/22/20 ) Pressure ulcer, buttock, right , unstageable Prinzmetal's angina (1975) Proteus enteritis (~2018) Renal artery atherosclerosis ( 09/22/11) Severe obstructive sleep apnea -hypopnea syndrome (10/22/15) Shingles (2016) Statin intolerance Stenosis of celiac artery (~) Systemic lupus erythematosus Thyroid nodule Surgical History (Reviewed 06/14 @ 14:15 by Jaye Rosado DO) H/O colonoscopy with polypectomy (~04/2020) History of arthroplasty (12/09) History of arthroplasty (01/20) History of cataract removal with insertion of prosthetic lens (2014) History of cholecystectomy History of tonsillectomy Stented coronary artery (2013) PT-OP-B Current Condition Start: 02/28/21 14:22 Freq: Status: Active Protocol: Document 03/16/21 15:11 [facility]AK (Rec: 03/16/21 16:10 SAK [id number]) Current Condition History of Current Condition Onset Date 1 year Current Complaints right LE pain, back pain buttock pain History of Current Condition No known cause of pain, reports low back painful to move, turn in bed. Worst pain is right lateral knee pain. Sharp pain lateral right thigh pain goes down to pressley excrutiating. Recent knee x- ray showed total knee intact. Bone scan normal. Feels walking on wad of something on bottom of her foot. No leg giving way. Can't lay on right side due to severe pain right knee and pressley which is usual position of sleep, slightly better laying on her back with knee straight, but can't sleep on back and c/o severe back pain in am from laying on her back. Hurts to stand, walk, drive, have knee flexed. Uses heat to low back . Using pillow between knees laying on side not helpful. Can't take anti-inflammatory due to cardiac condition. Prior Treatments and Tests right TKA [place], cardiac stents PT-OP-C Subjective Start: 02/28/21 14:22 Freq: Status: Active Protocol: Document 03/23/21 09:06 [facility] (Rec: 03/23/21 09:46 [facility] [id number]) OP-PT Subjective Patient Comments Patient Comments Pain improving in knee, not as frequent sharp pains lateral side of thigh. Pressley pain persists. PT-OP-E Functional Tests Start: 02/28/21 14:22 Freq: Status: Active Protocol: Document 03/01/21 09:06 [facility] (Rec: 03/01/21 13:42 [facility] [id number]) Functional Tests Five Times Sit to Stand Test Comments unable due to pain Timed Up and Go (TUG) Comments not done today due to pain PT-OP-F Manual Assessment Start: 02/28/21 14:22 Freq: Status: Active Protocol: Document 03/01/21 09:06 [facility] (Rec: 03/01/21 13:42 [facility] [id number]) Manual Assessments Soft Tissue Assessment Soft Tissue Mobility Assessment tightness right IT band to palpation PT-OP-G Mobility & Gait Start: 02/28/21 14:22 Freq: Status: Active Protocol: Document 03/01/21 09:06 [facility] (Rec: 03/01/21 13:42 [facility] [id number]) OP Mobility Evaluation Transfers Sit to Stand with much effort OP Gait Assessment Gait Gait Assistance Required: Independent Assistive Devices Assistive Device None Gait Deviations General Gait Pattern Antalgic Factors Limiting Gait Function Factors Limiting Gait Function Pain,Respiratory Distress Stair Climbing Evaluation Comments Stair Climbing Comments not done due to pain and deconditioning PT-OP-H Neuro Start: 02/28/21 14:22 Freq: Status: Active Protocol: Document 03/01/21 09:06 [facility] (Rec: 03/01/21 13:42 [facility] [id number]) Sensation Evaluation Gross Sensation Gross Sensation WNL PT-OP-J Posture/Palpation/Skin Start: 02/28/21 14:22 Freq: Status: Active Protocol: Document 03/01/21 09:06 [facility] (Rec: 03/01/21 13:42 [facility] [id number]) Posture Evaluation Position Sitting Head/C-Spine Posture Forward Head T-Spine Posture Increased Kyphosis L-Spine Posture Increased Lordosis Scapula Posture (L) Protracted,(R) Protracted Arm Posture (L) Internally Rotated,(R) Internally Rotated Pelvis Posture Anteriorly Tilted Hip Posture (L) Externally Rotated,(R) Externally Rotated Knee Posture (R) Genu Recurvatum Ankle/Foot Posture (L) Pronated,(R) Pronated Palpation Assessment Location right lateral gastroc Palpation Location right IT band Palpation Findings Soft Tissue Tightness, Tenderness IT band Palpation Location right IT band Palpation Findings Soft Tissue Tightness, Tenderness PT-OP-K Range of Motion Start: 02/28/21 14:22 Freq: Status: Active Protocol: Document 03/01/21 09:06 [facility] (Rec: 03/01/21 13:42 [facility] [id number]) Lumbar Spine Range of Motion Lumbar Spine Active Extension 0 ROM Limitations Pain Comments mod decreased all motions due to pain Hip Goniometric Range of Motion Hip luisa Hip ROM WFL Yes Knee Goniometric Range of Motion Knee luisa Knee ROM WFL Yes Hyper-Extension Active 5 Comments painful movement throughout the range right Ankle and Foot Goniometric Range of Motion Ankle and Foot luisa Ankle/Foot ROM WFL No Dorsiflexion with Knee Extended 0 Ankle and Foot ROM Limitations ROM Limitations Soft Tissue Tightness PT-OP-M Strength Start: 02/28/21 14:22 Freq: Status: Active Protocol: Document 03/01/21 09:06 [facility] (Rec: 03/01/21 13:42 [facility] [id number]) Hip Strength Hip Manual Muscle Testing luisa Flexion (L2) 4- Good- Extension (S1) 3+ Fair+ Abduction 4- Good- Adduction 4- Good- External Rotation 3+ Fair+ Internal Rotation 4- Good- Knee Strength Knee Manual Muscle Testing luisa Flexion (S2) 4 Good Extension (L3) 4 Good PT-OP-Q Treatments Start: 02/28/21 14:22 Freq: Status: Active Protocol: Document 03/23/21 09:06 [facility] (Rec: 03/23/21 09:46 [facility] [id number]) Cardio Equipment Recumbent Stepper (Sci-Fit) Duration (Minutes) 10 Resistance 1 Seat Position 12 Other 1.07 miles Gym Equipment Shuttle Recovery Unilateral Squats Resistance 25 Shuttle Recovery Platform Stable Reps/Time 10x2 Bilateral Squats Resistance 50 Shuttle Recovery Platform Stable Reps/Time 10x2 Shuttle Balance chains red, cords loose Details balance and weight shift fwd/ bck Reps/Duration 4 min Therapeutic Exercises Supine Exercises piriformis stretch Reps/Minutes 2x30 Comments manual SKTC Reps/Minutes 2x30 Abdominal breathing Reps/Minutes 5 min Comments verbal and manual cues Sidelying Exercises reverse clamshell Reps/Minutes 10x clamshell Reps/Minutes 10x PT-OP-R Modalities Start: 02/28/21 14:22 Freq: Status: Active Protocol: Document 03/23/21 09:06 [facility] (Rec: 03/23/21 09:46 [facility] [id number]) Hot Pack/Cold Pack Treatment Hot Pack Location lumbar spine, buttocks Patient Position Sitting Treatment Duration (minutes) 15 Patient Tolerance Good Ultrasound Therapy Treatment right buttock Treatment Duration (minutes) 8 Patient Position Sidelying Coupling Medium Ultrasound Gel Frequency Setting (mHz) 1 Duty Cycle 100% Intensity Setting (w/cm2) 1.5 Comments piriformis PT-OP-T Assessment and Plan Start: 02/28/21 14:22 Freq: Status: Active Protocol: Document 03/23/21 09:06 [facility] (Rec: 03/23/21 09:46 [facility] [id number]) Physical Therapy Assessment Goals Four Impairment lower extremity functional scale score 38% Short Term Goal (STG) Improve LEFS to at least 50% STG Duration Ui Programmer Goal (LTG) Improve LEFS to at least 65% LTG Duration 05/30/21 Three Impairment tightness and tenderness right IT band, decrease PA mobility right tib-fib Ui Programmer Goal (LTG) Decrease tightness and tenderness right IT band, PA mobility right tib-fib joint WNL for improved right LE movement and function LTG Duration 05/30/21 Two Impairment weakness bilateral LE's right greater than left Short Term Goal (STG) Patient to be independent and compliant to progressive therapeutic exercise program without c/o increase in pain STG Duration 04/14/21 [facility] Goal (LTG) Patient to demonstrate bilateral LE strength of at least 4/5 throughout LTG Duration 05/30/21 One Impairment pain right LE 7/10 on pain scale Short Term Goal (STG) decrease pain to no greater than 4/10 with usual activities and ADL's , including right sidelying sleeping position STG Duration 04/14/21 [facility] Goal (LTG) Patient to report pain no greater than 2/10 right LE with all usual activities, ADL 's and her usual sleep position of right sidelying LTG Duration 05/30/21 Assessment Summary Assessment Continued improvement in knee pain. Pressley pain persists. Added clamshell and reverse clamshell. Physical Therapy Plan Frequency and Duration Frequency of Treatment 2x/Week Duration of Treatment 12 weeks Plan of Care Start Date 03/01/21 Plan of Care End Date 05/30/21 Therapeutic Interventions Therapeutic Interventions Home Exercise Program,Joint Mobilizations,Manual Therapy, Neuromuscular Re-education, Patient/Caregiver Education, Self-Care/Home Management, Taping,Therapeutic Activities, Therapeutic Exercises Modalities Electric Stimulation,Hot Packs ,Infrared Therapy, Iontophoresis,Ultrasound Next Visit Focus/Plan Next Note Type Treatment Note Next Visit Plan Continue PT per POC. Trial manual traction supine if patient able to tolerate supine position.
--- NOTE | 2021-04-21 17:13 | PT.OTN ---
Current Diagnoses Pain in unspecified knee (04/21/21) Physical Therapy Treatment Note PT-OP-A Visit Information Start: 02/28/21 14:22 Freq: Status: Active Protocol: Document 04/21/21 09:09 SAK (Rec: 04/21/21 09:49 [facility] [id number]) Out-Patient Physical Therapy Visit Information Visit Information Visit Type Treatment Note 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 Hiatal hernia (~11/22/20) History of recurrent pneumonia History of stent insertion of renal artery Hypertension Left renal artery stenosis (~ 11/22/20) Macular degeneration, age related, nonexudative Osteopenia of femoral neck, bilateral (~02/2019) Paroxysmal atrial fibrillation Parumbilical hernia (~11/22/20 ) Pressure ulcer, buttock, right , unstageable Prinzmetal's angina (1975) Proteus enteritis (~2018) Renal artery atherosclerosis ( 09/22/11) Severe obstructive sleep apnea -hypopnea syndrome (10/22/15) Shingles (2016) Statin intolerance Stenosis of celiac artery (~) Systemic lupus erythematosus Thyroid nodule Surgical History (Reviewed 06/14 @ 14:15 by Jaye Rosado DO) H/O colonoscopy with polypectomy (~04/2020) History of arthroplasty (12/09) History of arthroplasty (01/20) History of cataract removal with insertion of prosthetic lens (2014) History of cholecystectomy History of tonsillectomy Stented coronary artery (2013) PT-OP-B Current Condition Start: 02/28/21 14:22 Freq: Status: Active Protocol: Document 04/21/21 09:09 BEN (Rec: 04/21/21 09:49 [facility] [id number]) Current Condition Current Functional Impairments (Reported) Functional Limitations- ADL's painful Functional Limitations- Mobility/Gait painful Functional Limitations- Recreation/ slow, paced, sedentary, Hobbies painful all positions PT-OP-C Subjective Start: 02/28/21 14:22 Freq: Status: Active Protocol: Document 04/21/21 09:09 SAK (Rec: 04/21/21 09:49 SAK [id number]) OP-PT Subjective Patient Comments Patient Comments Reports pressley pain better, low back and right hip pain persists and has had some nerve symptoms into her foot at times with tingling and other paresthesias. Still having dental work done. Reports physician contacted her regarding inflammation throughout her body. PT-OP-E Functional Tests Start: 02/28/21 14:22 Freq: Status: Active Protocol: Document 03/01/21 09:06 SAK (Rec: 03/01/21 13:42 SAK [id number]) Functional Tests Five Times Sit to Stand Test Comments unable due to pain Timed Up and Go (TUG) Comments not done today due to pain PT-OP-F Manual Assessment Start: 02/28/21 14:22 Freq: Status: Active Protocol: Document 03/01/21 09:06 SAK (Rec: 03/01/21 13:42 [facility] [id number]) Manual Assessments Soft Tissue Assessment Soft Tissue Mobility Assessment tightness right IT band to palpation PT-OP-G Mobility & Gait Start: 02/28/21 14:22 Freq: Status: Active Protocol: Document 03/01/21 09:06 SAK (Rec: 03/01/21 13:42 [facility] [id number]) OP Mobility Evaluation Transfers Sit to Stand with much effort OP Gait Assessment Gait Gait Assistance Required: Independent Assistive Devices Assistive Device None Gait Deviations General Gait Pattern Antalgic Factors Limiting Gait Function Factors Limiting Gait Function Pain,Respiratory Distress Stair Climbing Evaluation Comments Stair Climbing Comments not done due to pain and deconditioning PT-OP-H Neuro Start: 02/28/21 14:22 Freq: Status: Active Protocol: Document 03/01/21 09:06 SAK (Rec: 03/01/21 13:42 [facility] [id number]) Sensation Evaluation Gross Sensation Gross Sensation WNL PT-OP-J Posture/Palpation/Skin Start: 02/28/21 14:22 Freq: Status: Active Protocol: Document 03/01/21 09:06 SAK (Rec: 03/01/21 13:42 SAK [id number]) Posture Evaluation Position Sitting Head/C-Spine Posture Forward Head T-Spine Posture Increased Kyphosis L-Spine Posture Increased Lordosis Scapula Posture (L) Protracted,(R) Protracted Arm Posture (L) Internally Rotated,(R) Internally Rotated Pelvis Posture Anteriorly Tilted Hip Posture (L) Externally Rotated,(R) Externally Rotated Knee Posture (R) Genu Recurvatum Ankle/Foot Posture (L) Pronated,(R) Pronated Palpation Assessment Location right lateral gastroc Palpation Location right IT band Palpation Findings Soft Tissue Tightness, Tenderness IT band Palpation Location right IT band Palpation Findings Soft Tissue Tightness, Tenderness PT-OP-K Range of Motion Start: 02/28/21 14:22 Freq: Status: Active Protocol: Document 03/01/21 09:06 [facility] (Rec: 03/01/21 13:42 [facility] [id number]) Lumbar Spine Range of Motion Lumbar Spine Active Extension 0 ROM Limitations Pain Comments mod decreased all motions due to pain Hip Goniometric Range of Motion Hip luisa Hip ROM WFL Yes Knee Goniometric Range of Motion Knee luisa Knee ROM WFL Yes Hyper-Extension Active 5 Comments painful movement throughout the range right Ankle and Foot Goniometric Range of Motion Ankle and Foot luisa Ankle/Foot ROM WFL No Dorsiflexion with Knee Extended 0 Ankle and Foot ROM Limitations ROM Limitations Soft Tissue Tightness PT-OP-M Strength Start: 02/28/21 14:22 Freq: Status: Active Protocol: Document 03/01/21 09:06 [facility] (Rec: 03/01/21 13:42 [facility] [id number]) Hip Strength Hip Manual Muscle Testing luisa Flexion (L2) 4- Good- Extension (S1) 3+ Fair+ Abduction 4- Good- Adduction 4- Good- External Rotation 3+ Fair+ Internal Rotation 4- Good- Knee Strength Knee Manual Muscle Testing luisa Flexion (S2) 4 Good Extension (L3) 4 Good PT-OP-Q Treatments Start: 02/28/21 14:22 Freq: Status: Active Protocol: Document 04/21/21 09:09 [facility] (Rec: 04/21/21 09:49 [facility] [id number]) Cardio Equipment Recumbent Stepper (Sci-Fit) Duration (Minutes) 10 Resistance 1 Seat Position 12 Gym Equipment Shuttle Balance chains red, cords loose Details balance and weight shift fwd/ bck, side to side bal Reps/Duration 4 min Therapeutic Exercises Supine Exercises piriformis stretch Reps/Minutes 2x30 Comments manual SKTC Reps/Minutes 2x30 Standing Exercises row, shoulder ext Resistance L1 Reps/Minutes 10x Manual Therapy Treatment Soft Tissue Mobilization left piriformis, buttock Mobilization Type Instrument Assisted,Rolling, Sustained Pressure Intensity/Depth gentle Body Position Sidelying Comments rolling pin Manual Traction Lumbar Body Position Hooklying Reps/Duration 5 min Comments strap Self-Care/Home Management Treatment Activities Self-Care/Home Management Activities self massage with rolling pin PT-OP-R Modalities Start: 02/28/21 14:22 Freq: Status: Active Protocol: Document 04/21/21 09:09 [facility] (Rec: 04/21/21 09:49 [facility] [id number]) Hot Pack/Cold Pack Treatment Hot Pack Location lumbar spine, buttocks Patient Position Sitting Treatment Duration (minutes) 15 Patient Tolerance Good PT-OP-T Assessment and Plan Start: 02/28/21 14:22 Freq: Status: Active Protocol: Document 04/21/21 09:09 [facility] (Rec: 04/21/21 09:49 [facility] [id number]) Physical Therapy Assessment Goals Four Impairment lower extremity functional scale score 38% Short Term Goal (STG) Improve LEFS to at least 50% STG Duration [facility]iary Goal (LTG) Improve LEFS to at least 65% LTG Duration 05/30/21 Three Impairment tightness and tenderness right IT band, decrease PA mobility right tib-fib Merchandise Collector Goal (LTG) Decrease tightness and tenderness right IT band, PA mobility right tib-fib joint WNL for improved right LE movement and function LTG Duration 05/30/21 Two Impairment weakness bilateral LE's right greater than left Short Term Goal (STG) Patient to be independent and compliant to progressive therapeutic exercise program without c/o increase in pain STG Duration 04/14/21 Merchandise Collector Goal (LTG) Patient to demonstrate bilateral LE strength of at least 4/5 throughout LTG Duration 05/30/21 One Impairment pain right LE 7/10 on pain scale Short Term Goal (STG) decrease pain to no greater than 4/10 with usual activities and ADL's , including right sidelying sleeping position STG Duration 04/14/21 [facility]iary Goal (LTG) Patient to report pain no greater than 2/10 right LE with all usual activities, ADL 's and her usual sleep position of right sidelying LTG Duration 05/30/21 Assessment Summary Assessment Pressley pain better, back pain persists with radicular symptoms, though decreased after treatment. Patient demonstrated good understanding of self-massage with rolling poin. Physical Therapy Plan Frequency and Duration Frequency of Treatment 2x/Week Duration of Treatment 12 weeks Plan of Care Start Date 03/01/21 Plan of Care End Date 05/30/21 Therapeutic Interventions Therapeutic Interventions Home Exercise Program,Joint Mobilizations,Manual Therapy, Neuromuscular Re-education, Patient/Caregiver Education, Self-Care/Home Management, Taping,Therapeutic Activities, Therapeutic Exercises Modalities Electric Stimulation,Hot Packs ,Infrared Therapy, Iontophoresis,Ultrasound Next Visit Focus/Plan Next Note Type Treatment Note Next Visit Plan Evaluate response to today's treatment, continue manual traction if tolerated, assess response to self-massage with rolling pin and problem-solve any issues. continue to progress ther ex as tolerated.
--- NOTE | 2021-04-28 09:51 | PT.OTN ---
Current Diagnoses Pain in unspecified knee (04/28/21) Physical Therapy Treatment Note PT-OP-A Visit Information Start: 02/28/21 14:22 Freq: Status: Active Protocol: Document 04/28/21 09:03 BEN (Rec: 04/28/21 09:51 [facility] [id number]) Out-Patient Physical Therapy Visit Information Visit Information Visit Type Treatment Note Visit Note Puny today. SOB with CHF. 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 Hiatal hernia (~11/22/20) History of recurrent pneumonia History of stent insertion of renal artery Hypertension Left renal artery stenosis (~ 11/22/20) Macular degeneration, age related, nonexudative Osteopenia of femoral neck, bilateral (~02/2019) Paroxysmal atrial fibrillation Parumbilical hernia (~11/22/20 ) Pressure ulcer, buttock, right , unstageable Prinzmetal's angina (1975) Proteus enteritis (~2018) Renal artery atherosclerosis ( 09/22/11) Severe obstructive sleep apnea -hypopnea syndrome (10/22/15) Shingles (2016) Statin intolerance Stenosis of celiac artery (~) Systemic lupus erythematosus Thyroid nodule Surgical History (Reviewed 06/14 @ 14:15 by Jaye Rosado DO) H/O colonoscopy with polypectomy (~04/2020) History of arthroplasty (12/09) History of arthroplasty (01/20) History of cataract removal with insertion of prosthetic lens (2014) History of cholecystectomy History of tonsillectomy Stented coronary artery (2013) PT-OP-B Current Condition Start: 02/28/21 14:22 Freq: Status: Active Protocol: Document 04/21/21 09:09 BEN (Rec: 04/21/21 09:49 [facility] [id number]) Current Condition Current Functional Impairments (Reported) Functional Limitations- ADL's painful Functional Limitations- Mobility/Gait painful Functional Limitations- Recreation/ slow, paced, sedentary, Hobbies painful all positions PT-OP-C Subjective Start: 02/28/21 14:22 Freq: Status: Active Protocol: Document 04/28/21 09:03 SAK (Rec: 04/28/21 09:51 [facility] [id number]) OP-PT Subjective Patient Comments Patient Comments Feeling puny today. CHF worse this week. Has done most of HEP. PT-OP-E Functional Tests Start: 02/28/21 14:22 Freq: Status: Active Protocol: Document 03/01/21 09:06 SAK (Rec: 03/01/21 13:42 [facility] [id number]) Functional Tests Five Times Sit to Stand Test Comments unable due to pain Timed Up and Go (TUG) Comments not done today due to pain PT-OP-F Manual Assessment Start: 02/28/21 14:22 Freq: Status: Active Protocol: Document 03/01/21 09:06 SAK (Rec: 03/01/21 13:42 [facility] [id number]) Manual Assessments Soft Tissue Assessment Soft Tissue Mobility Assessment tightness right IT band to palpation PT-OP-G Mobility & Gait Start: 02/28/21 14:22 Freq: Status: Active Protocol: Document 03/01/21 09:06 [facility] (Rec: 03/01/21 13:42 [facility] [id number]) OP Mobility Evaluation Transfers Sit to Stand with much effort OP Gait Assessment Gait Gait Assistance Required: Independent Assistive Devices Assistive Device None Gait Deviations General Gait Pattern Antalgic Factors Limiting Gait Function Factors Limiting Gait Function Pain,Respiratory Distress Stair Climbing Evaluation Comments Stair Climbing Comments not done due to pain and deconditioning PT-OP-H Neuro Start: 02/28/21 14:22 Freq: Status: Active Protocol: Document 03/01/21 09:06 SAK (Rec: 03/01/21 13:42 [facility] [id number]) Sensation Evaluation Gross Sensation Gross Sensation WNL PT-OP-J Posture/Palpation/Skin Start: 02/28/21 14:22 Freq: Status: Active Protocol: Document 03/01/21 09:06 SAK (Rec: 03/01/21 13:42 [facility] [id number]) Posture Evaluation Position Sitting Head/C-Spine Posture Forward Head T-Spine Posture Increased Kyphosis L-Spine Posture Increased Lordosis Scapula Posture (L) Protracted,(R) Protracted Arm Posture (L) Internally Rotated,(R) Internally Rotated Pelvis Posture Anteriorly Tilted Hip Posture (L) Externally Rotated,(R) Externally Rotated Knee Posture (R) Genu Recurvatum Ankle/Foot Posture (L) Pronated,(R) Pronated Palpation Assessment Location right lateral gastroc Palpation Location right IT band Palpation Findings Soft Tissue Tightness, Tenderness IT band Palpation Location right IT band Palpation Findings Soft Tissue Tightness, Tenderness PT-OP-K Range of Motion Start: 02/28/21 14:22 Freq: Status: Active Protocol: Document 03/01/21 09:06 [facility] (Rec: 03/01/21 13:42 [facility] [id number]) Lumbar Spine Range of Motion Lumbar Spine Active Extension 0 ROM Limitations Pain Comments mod decreased all motions due to pain Hip Goniometric Range of Motion Hip luisa Hip ROM WFL Yes Knee Goniometric Range of Motion Knee luisa Knee ROM WFL Yes Hyper-Extension Active 5 Comments painful movement throughout the range right Ankle and Foot Goniometric Range of Motion Ankle and Foot luisa Ankle/Foot ROM WFL No Dorsiflexion with Knee Extended 0 Ankle and Foot ROM Limitations ROM Limitations Soft Tissue Tightness PT-OP-M Strength Start: 02/28/21 14:22 Freq: Status: Active Protocol: Document 03/01/21 09:06 [facility] (Rec: 03/01/21 13:42 [facility] [id number]) Hip Strength Hip Manual Muscle Testing luisa Flexion (L2) 4- Good- Extension (S1) 3+ Fair+ Abduction 4- Good- Adduction 4- Good- External Rotation 3+ Fair+ Internal Rotation 4- Good- Knee Strength Knee Manual Muscle Testing luisa Flexion (S2) 4 Good Extension (L3) 4 Good PT-OP-Q Treatments Start: 02/28/21 14:22 Freq: Status: Active Protocol: Document 04/28/21 09:03 [facility] (Rec: 04/28/21 09:51 [facility] [id number]) Cardio Equipment Recumbent Stepper (Sci-Fit) Duration (Minutes) 14 Resistance 1 Seat Position 12 Other 1.23 miles Gym Equipment Shuttle Recovery Bilateral Squats Resistance 62 Shuttle Recovery Platform Stable Reps/Time 10x2 Shuttle Balance chains red, cords loose Details balance and weight shift fwd/ bck, side to side bal Reps/Duration 4 min Therapeutic Exercises Standing Exercises row, shoulder ext Resistance L1 Reps/Minutes 10x Manual Therapy Treatment Soft Tissue Mobilization IT band Mobilization Type Instrument Assisted,Myofascial Release,Strumming Intensity/Depth Moderate Body Position Sidelying left piriformis, buttock Mobilization Type Instrument Assisted,Rolling, Sustained Pressure Intensity/Depth gentle Body Position Sidelying Comments rolling pin Manual Traction Lumbar Comments not done, requested not lay supine. PT-OP-R Modalities Start: 02/28/21 14:22 Freq: Status: Active Protocol: Document 04/28/21 09:03 [facility] (Rec: 04/28/21 09:51 [facility] [id number]) Hot Pack/Cold Pack Treatment Hot Pack Location lumbar spine, buttocks Patient Position Sitting Treatment Duration (minutes) 15 Patient Tolerance Good PT-OP-T Assessment and Plan Start: 02/28/21 14:22 Freq: Status: Active Protocol: Document 04/28/21 09:03 [facility] (Rec: 04/28/21 09:51 [facility] [id number]) Physical Therapy Assessment Goals Four Impairment lower extremity functional scale score 38% Short Term Goal (STG) Improve LEFS to at least 50% STG Duration Licensed Appraiser Goal (LTG) Improve LEFS to at least 65% LTG Duration 05/30/21 Three Impairment tightness and tenderness right IT band, decrease PA mobility right tib-fib Jail Goal (LTG) Decrease tightness and tenderness right IT band, PA mobility right tib-fib joint WNL for improved right LE movement and function LTG Duration 05/30/21 Two Impairment weakness bilateral LE's right greater than left Short Term Goal (STG) Patient to be independent and compliant to progressive therapeutic exercise program without c/o increase in pain STG Duration 04/14/21 Jail Goal (LTG) Patient to demonstrate bilateral LE strength of at least 4/5 throughout LTG Duration 05/30/21 One Impairment pain right LE 7/10 on pain scale Short Term Goal (STG) decrease pain to no greater than 4/10 with usual activities and ADL's , including right sidelying sleeping position STG Duration 04/14/21 Licensed Appraiser Goal (LTG) Patient to report pain no greater than 2/10 right LE with all usual activities, ADL 's and her usual sleep position of right sidelying LTG Duration 05/30/21 Assessment Summary Assessment Good exercise tolerance today in sitting and standing despite not feeling well. Pain decreased with treatment. Physical Therapy Plan Frequency and Duration Frequency of Treatment 2x/Week Duration of Treatment 12 weeks Plan of Care Start Date 03/01/21 Plan of Care End Date 05/30/21 Therapeutic Interventions Therapeutic Interventions Home Exercise Program,Joint Mobilizations,Manual Therapy, Neuromuscular Re-education, Patient/Caregiver Education, Self-Care/Home Management, Taping,Therapeutic Activities, Therapeutic Exercises Modalities Electric Stimulation,Hot Packs ,Infrared Therapy, Iontophoresis,Ultrasound Next Visit Focus/Plan Next Note Type Treatment Note Next Visit Plan Continue to progress ther ex as tolerated. Manual traction pending patient tolerance. Continued manual therapy
--- NOTE | 2021-05-03 16:21 | PT.OTN ---
Current Diagnoses Pain in unspecified knee (05/03/21) Physical Therapy Treatment Note PT-OP-A Visit Information Start: 02/28/21 14:22 Freq: Status: Active Protocol: Document 05/03/21 09:05 BEN (Rec: 05/03/21 10:32 SAK [id number]) Out-Patient Physical Therapy Visit Information Visit Information Visit Type Treatment Note Visit Start Time 09:02 Visit Stop Time 09:55 Total Visit Minutes 53 Visit Number 6 Precautions Precautions Medical History (Updated 01/19 @ 17:21 by Soledad Vick DO) Angioedema Asthma CAD (coronary artery disease) (1979) Coccidioidomycosis (~1962) Dyslipidemia EBV infection (~1962) Elevated coronary artery calcium score 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 Hiatal hernia (~11/22/20) History of recurrent pneumonia History of stent insertion of renal artery Hypertension Left renal artery stenosis (~ 11/22/20) Macular degeneration, age related, nonexudative Osteopenia of femoral neck, bilateral (~02/2019) Paroxysmal atrial fibrillation Parumbilical hernia (~11/22/20 ) Pressure ulcer, buttock, right , unstageable Prinzmetal's angina (1975) Proteus enteritis (~2018) Renal artery atherosclerosis ( 09/22/11) Severe obstructive sleep apnea -hypopnea syndrome (10/22/15) Shingles (2016) Statin intolerance Stenosis of celiac artery (~) Systemic lupus erythematosus Thyroid nodule Surgical History (Reviewed 06/14 @ 14:15 by Jaye Rosado DO) H/O colonoscopy with polypectomy (~04/2020) History of arthroplasty (12/09) History of arthroplasty (01/20) History of cataract removal with insertion of prosthetic lens (2014) History of cholecystectomy History of tonsillectomy Stented coronary artery (2013) PT-OP-B Current Condition Start: 02/28/21 14:22 Freq: Status: Active Protocol: Document 04/21/21 09:09 BEN (Rec: 04/21/21 09:49 [facility] [id number]) Current Condition Current Functional Impairments (Reported) Functional Limitations- ADL's painful Functional Limitations- Mobility/Gait painful Functional Limitations- Recreation/ slow, paced, sedentary, Hobbies painful all positions PT-OP-C Subjective Start: 02/28/21 14:22 Freq: Status: Active Protocol: Document 05/03/21 09:05 SAK (Rec: 05/03/21 10:32 SAK [id number]) OP-PT Subjective Patient Comments Patient Comments Determined. Reports she had an incapacitating cramp right LE one time while doing isometric exercises in bed, have had a few less severe cramps since then. Standing on one leg, rubbing it, moving more slowly. Has had about 3 times in her life. PT-OP-E Functional Tests Start: 02/28/21 14:22 Freq: Status: Active Protocol: Document 03/01/21 09:06 [facility] (Rec: 03/01/21 13:42 [facility] [id number]) Functional Tests Five Times Sit to Stand Test Comments unable due to pain Timed Up and Go (TUG) Comments not done today due to pain PT-OP-F Manual Assessment Start: 02/28/21 14:22 Freq: Status: Active Protocol: Document 03/01/21 09:06 [facility] (Rec: 03/01/21 13:42 [facility] [id number]) Manual Assessments Soft Tissue Assessment Soft Tissue Mobility Assessment tightness right IT band to palpation PT-OP-G Mobility & Gait Start: 02/28/21 14:22 Freq: Status: Active Protocol: Document 03/01/21 09:06 [facility] (Rec: 03/01/21 13:42 [facility] [id number]) OP Mobility Evaluation Transfers Sit to Stand with much effort OP Gait Assessment Gait Gait Assistance Required: Independent Assistive Devices Assistive Device None Gait Deviations General Gait Pattern Antalgic Factors Limiting Gait Function Factors Limiting Gait Function Pain,Respiratory Distress Stair Climbing Evaluation Comments Stair Climbing Comments not done due to pain and deconditioning PT-OP-H Neuro Start: 02/28/21 14:22 Freq: Status: Active Protocol: Document 03/01/21 09:06 SAK (Rec: 03/01/21 13:42 [facility] [id number]) Sensation Evaluation Gross Sensation Gross Sensation WNL PT-OP-J Posture/Palpation/Skin Start: 02/28/21 14:22 Freq: Status: Active Protocol: Document 03/01/21 09:06 SAK (Rec: 03/01/21 13:42 [facility] [id number]) Posture Evaluation Position Sitting Head/C-Spine Posture Forward Head T-Spine Posture Increased Kyphosis L-Spine Posture Increased Lordosis Scapula Posture (L) Protracted,(R) Protracted Arm Posture (L) Internally Rotated,(R) Internally Rotated Pelvis Posture Anteriorly Tilted Hip Posture (L) Externally Rotated,(R) Externally Rotated Knee Posture (R) Genu Recurvatum Ankle/Foot Posture (L) Pronated,(R) Pronated Palpation Assessment Location right lateral gastroc Palpation Location right IT band Palpation Findings Soft Tissue Tightness, Tenderness IT band Palpation Location right IT band Palpation Findings Soft Tissue Tightness, Tenderness PT-OP-K Range of Motion Start: 02/28/21 14:22 Freq: Status: Active Protocol: Document 03/01/21 09:06 [facility] (Rec: 03/01/21 13:42 [facility] [id number]) Lumbar Spine Range of Motion Lumbar Spine Active Extension 0 ROM Limitations Pain Comments mod decreased all motions due to pain Hip Goniometric Range of Motion Hip luisa Hip ROM WFL Yes Knee Goniometric Range of Motion Knee luisa Knee ROM WFL Yes Hyper-Extension Active 5 Comments painful movement throughout the range right Ankle and Foot Goniometric Range of Motion Ankle and Foot luisa Ankle/Foot ROM WFL No Dorsiflexion with Knee Extended 0 Ankle and Foot ROM Limitations ROM Limitations Soft Tissue Tightness PT-OP-M Strength Start: 02/28/21 14:22 Freq: Status: Active Protocol: Document 03/01/21 09:06 [facility] (Rec: 03/01/21 13:42 [facility] [id number]) Hip Strength Hip Manual Muscle Testing luisa Flexion (L2) 4- Good- Extension (S1) 3+ Fair+ Abduction 4- Good- Adduction 4- Good- External Rotation 3+ Fair+ Internal Rotation 4- Good- Knee Strength Knee Manual Muscle Testing luisa Flexion (S2) 4 Good Extension (L3) 4 Good PT-OP-Q Treatments Start: 02/28/21 14:22 Freq: Status: Active Protocol: Document 05/03/21 09:05 [facility] (Rec: 05/03/21 10:32 [facility] [id number]) Cardio Equipment Recumbent Stepper (Sci-Fit) Duration (Minutes) 20 Resistance 1 Seat Position 12 Gym Equipment Shuttle Recovery Bilateral Squats Resistance 62 Shuttle Recovery Platform Stable Reps/Time 10x2 Shuttle Balance chains red, cords loose Details balance and weight shift fwd/ bck, side to side bal Reps/Duration 4 min Therapeutic Exercises Standing Exercises resisted sidestepping Reps/Minutes 10 ft luisa Manual Therapy Treatment Soft Tissue Mobilization thoracolumbar spine Mobilization Type Myofascial Release,Strumming Intensity/Depth Moderate IT band Mobilization Type Instrument Assisted,Myofascial Release,Strumming Intensity/Depth Moderate Body Position Sidelying left piriformis, buttock Mobilization Type Myofascial Release,Strumming, Sustained Pressure Intensity/Depth Moderate Body Position Sidelying PT-OP-R Modalities Start: 02/28/21 14:22 Freq: Status: Active Protocol: Document 05/03/21 09:05 SAK (Rec: 05/03/21 10:32 SAK [id number]) Hot Pack/Cold Pack Treatment Hot Pack Location lumbar spine, buttocks Patient Position Sitting Treatment Duration (minutes) 15 Patient Tolerance Good PT-OP-T Assessment and Plan Start: 02/28/21 14:22 Freq: Status: Active Protocol: Document 05/03/21 09:05 [facility] (Rec: 05/03/21 10:32 [facility] [id number]) Physical Therapy Assessment Goals Four Impairment lower extremity functional scale score 38% Short Term Goal (STG) Improve LEFS to at least 50% STG Duration Library Clerk Goal (LTG) Improve LEFS to at least 65% LTG Duration 05/30/21 Three Impairment tightness and tenderness right IT band, decrease PA mobility right tib-fib Library Clerk Goal (LTG) Decrease tightness and tenderness right IT band, PA mobility right tib-fib joint WNL for improved right LE movement and function LTG Duration 05/30/21 Two Impairment weakness bilateral LE's right greater than left Short Term Goal (STG) Patient to be independent and compliant to progressive therapeutic exercise program without c/o increase in pain STG Duration 04/14/21 Library Clerk Goal (LTG) Patient to demonstrate bilateral LE strength of at least 4/5 throughout LTG Duration 05/30/21 One Impairment pain right LE 7/10 on pain scale Short Term Goal (STG) decrease pain to no greater than 4/10 with usual activities and ADL's , including right sidelying sleeping position STG Duration 04/14/21 Intermediate Goal (LTG) Patient to report pain no greater than 2/10 right LE with all usual activities, ADL 's and her usual sleep position of right sidelying LTG Duration 05/30/21 Assessment Summary Assessment Continues to demonstrate improved exercise tolerance, functional strength. Pain persists but is variable. Physical Therapy Plan Frequency and Duration Frequency of Treatment 2x/Week Duration of Treatment 12 weeks Plan of Care Start Date 03/01/21 Plan of Care End Date 05/30/21 Therapeutic Interventions Therapeutic Interventions Home Exercise Program,Joint Mobilizations,Manual Therapy, Neuromuscular Re-education, Patient/Caregiver Education, Self-Care/Home Management, Taping,Therapeutic Activities, Therapeutic Exercises Modalities Electric Stimulation,Hot Packs ,Infrared Therapy, Iontophoresis,Ultrasound Next Visit Focus/Plan Next Note Type Treatment Note Next Visit Plan Continue progressive therapeutic exercises, modalities and manual therapy as needed for pain.
--- NOTE | 2021-05-05 16:45 | PT.OTN ---
Current Diagnoses Pain in unspecified knee (05/05/21) Physical Therapy Treatment Note PT-OP-A Visit Information Start: 02/28/21 14:22 Freq: Status: Active Protocol: Document 05/05/21 09:03 BEN (Rec: 05/05/21 09:[address] 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 Hiatal hernia (~11/22/20) History of recurrent pneumonia History of stent insertion of renal artery Hypertension Left renal artery stenosis (~ 11/22/20) Macular degeneration, age related, nonexudative Osteopenia of femoral neck, bilateral (~02/2019) Paroxysmal atrial fibrillation Parumbilical hernia (~11/22/20 ) Pressure ulcer, buttock, right , unstageable Prinzmetal's angina (1975) Proteus enteritis (~2018) Renal artery atherosclerosis ( 09/22/11) Severe obstructive sleep apnea -hypopnea syndrome (10/22/15) Shingles (2016) Statin intolerance Stenosis of celiac artery (~) Systemic lupus erythematosus Thyroid nodule Surgical History (Reviewed 06/14 @ 14:15 by Jaye Rosado DO) H/O colonoscopy with polypectomy (~04/2020) History of arthroplasty (12/09) History of arthroplasty (01/20) History of cataract removal with insertion of prosthetic lens (2014) History of cholecystectomy History of tonsillectomy Stented coronary artery (2013) PT-OP-B Current Condition Start: 02/28/21 14:22 Freq: Status: Active Protocol: Document 04/21/21 09:09 BEN (Rec: 04/21/21 09:[address] [facility] [id number]) Current Condition Current Functional Impairments (Reported) Functional Limitations- ADL's painful Functional Limitations- Mobility/Gait painful Functional Limitations- Recreation/ slow, paced, sedentary, Hobbies painful all positions PT-OP-C Subjective Start: 02/28/21 14:22 Freq: Status: Active Protocol: Document 05/05/21 09:03 SAK (Rec: 05/05/21 09:25 SAK [id number]) OP-PT Subjective Patient Comments Patient Comments Reports she fell in garage immediately before coming to PT, denies serious injury. Fell on luisa knees; reports soreness in knees and low back but wants to continue with PT . Cause of fall unknown. PT-OP-E Functional Tests Start: 02/28/21 14:22 Freq: Status: Active Protocol: Document 03/01/21 09:06 SAK (Rec: 03/01/21 13:[address] [facility] [id number]) Functional Tests Five Times Sit to Stand Test Comments unable due to pain Timed Up and Go (TUG) Comments not done today due to pain PT-OP-F Manual Assessment Start: 02/28/21 14:22 Freq: Status: Active Protocol: Document 03/01/21 09:06 SAK (Rec: 03/01/21 13:[address] [facility] [id number]) Manual Assessments Soft Tissue Assessment Soft Tissue Mobility Assessment tightness right IT band to palpation PT-OP-G Mobility & Gait Start: 02/28/21 14:22 Freq: Status: Active Protocol: Document 03/01/21 09:06 SAK (Rec: 03/01/21 13:[address] [facility] [id number]) OP Mobility Evaluation Transfers Sit to Stand with much effort OP Gait Assessment Gait Gait Assistance Required: Independent Assistive Devices Assistive Device None Gait Deviations General Gait Pattern Antalgic Factors Limiting Gait Function Factors Limiting Gait Function Pain,Respiratory Distress Stair Climbing Evaluation Comments Stair Climbing Comments not done due to pain and deconditioning PT-OP-H Neuro Start: 02/28/21 14:22 Freq: Status: Active Protocol: Document 03/01/21 09:06 SAK (Rec: 03/01/21 13:[address] [facility] [id number]) Sensation Evaluation Gross Sensation Gross Sensation WNL PT-OP-J Posture/Palpation/Skin Start: 02/28/21 14:22 Freq: Status: Active Protocol: Document 03/01/21 09:06 SAK (Rec: 03/01/21 13:42 SAK [id number]) Posture Evaluation Position Sitting Head/C-Spine Posture Forward Head T-Spine Posture Increased Kyphosis L-Spine Posture Increased Lordosis Scapula Posture (L) Protracted,(R) Protracted Arm Posture (L) Internally Rotated,(R) Internally Rotated Pelvis Posture Anteriorly Tilted Hip Posture (L) Externally Rotated,(R) Externally Rotated Knee Posture (R) Genu Recurvatum Ankle/Foot Posture (L) Pronated,(R) Pronated Palpation Assessment Location right lateral gastroc Palpation Location right IT band Palpation Findings Soft Tissue Tightness, Tenderness IT band Palpation Location right IT band Palpation Findings Soft Tissue Tightness, Tenderness PT-OP-K Range of Motion Start: 02/28/21 14:22 Freq: Status: Active Protocol: Document 03/01/21 09:[address] [facility] (Rec: 03/01/21 13:[address] [facility] [id number]) Lumbar Spine Range of Motion Lumbar Spine Active Extension 0 ROM Limitations Pain Comments mod decreased all motions due to pain Hip Goniometric Range of Motion Hip luisa Hip ROM WFL Yes Knee Goniometric Range of Motion Knee luisa Knee ROM WFL Yes Hyper-Extension Active 5 Comments painful movement throughout the range right Ankle and Foot Goniometric Range of Motion Ankle and Foot luisa Ankle/Foot ROM WFL No Dorsiflexion with Knee Extended 0 Ankle and Foot ROM Limitations ROM Limitations Soft Tissue Tightness PT-OP-M Strength Start: 02/28/21 14:22 Freq: Status: Active Protocol: Document 03/01/21 09:[address] [facility] (Rec: 03/01/21 13:[address] [facility] [id number]) Hip Strength Hip Manual Muscle Testing luisa Flexion (L2) 4- Good- Extension (S1) 3+ Fair+ Abduction 4- Good- Adduction 4- Good- External Rotation 3+ Fair+ Internal Rotation 4- Good- Knee Strength Knee Manual Muscle Testing luisa Flexion (S2) 4 Good Extension (L3) 4 Good PT-OP-Q Treatments Start: 02/28/21 14:22 Freq: Status: Active Protocol: Document 05/05/21 09:[address] [facility] (Rec: 05/05/21 09:[address] [facility] [id number]) Cardio Equipment Recumbent Stepper (Sci-Fit) Duration (Minutes) 10 Resistance 1 Seat Position 12 Gym Equipment Shuttle Recovery Unilateral Squats Resistance 25 Shuttle Recovery Platform Stable Reps/Time 10x2 Bilateral Squats Resistance 62 Shuttle Recovery Platform Stable Reps/Time 10x2 Shuttle Balance chains red, cords loose Details balance and weight shift fwd/ bck, side to side bal Reps/Duration 4 min Therapeutic Exercises Standing Exercises row, shoulder ext Resistance L1 Reps/Minutes 10x Manual Therapy Treatment Soft Tissue Mobilization thoracolumbar spine Mobilization Type Myofascial Release,Strumming Intensity/Depth Moderate IT band Mobilization Type Instrument Assisted,Myofascial Release,Strumming Intensity/Depth Moderate Body Position Sidelying left piriformis, buttock Mobilization Type Myofascial Release,Strumming, Sustained Pressure Intensity/Depth Moderate Body Position Sidelying PT-OP-R Modalities Start: 02/28/21 14:22 Freq: Status: Active Protocol: Document 05/05/21 09:03 SAK (Rec: 05/05/21 09:25 SAK [id number]) Hot Pack/Cold Pack Treatment Hot Pack Location lumbar spine, buttocks Patient Position Sitting Treatment Duration (minutes) 15 Patient Tolerance Good PT-OP-T Assessment and Plan Start: 02/28/21 14:22 Freq: Status: Active Protocol: Document 05/05/21 09:03 SAK (Rec: 05/05/21 09:[address] [facility] [id number]) Physical Therapy Assessment Goals Four Impairment lower extremity functional scale score 38% Short Term Goal (STG) Improve LEFS to at least 50% STG Duration Retail Support Manager Goal (LTG) Improve LEFS to at least 65% LTG Duration 05/30/21 Three Impairment tightness and tenderness right IT band, decrease PA mobility right tib-fib Retail Support Manager Goal (LTG) Decrease tightness and tenderness right IT band, PA mobility right tib-fib joint WNL for improved right LE movement and function LTG Duration 05/30/21 Two Impairment weakness bilateral LE's right greater than left Short Term Goal (STG) Patient to be independent and compliant to progressive therapeutic exercise program without c/o increase in pain STG Duration 04/14/21 Snf Goal (LTG) Patient to demonstrate bilateral LE strength of at least 4/5 throughout LTG Duration 05/30/21 One Impairment pain right LE 7/10 on pain scale Short Term Goal (STG) decrease pain to no greater than 4/10 with usual activities and ADL's , including right sidelying sleeping position STG Duration 04/14/21 Snf Goal (LTG) Patient to report pain no greater than 2/10 right LE with all usual activities, ADL 's and her usual sleep position of right sidelying LTG Duration 05/30/21 Assessment Summary Assessment Despite fall, patient mesha ther ex well today. Ice to luisa knees after session. Physical Therapy Plan Frequency and Duration Frequency of Treatment 2x/Week Duration of Treatment 12 weeks Plan of Care Start Date 03/01/21 Plan of Care End Date 05/30/21 Therapeutic Interventions Therapeutic Interventions Home Exercise Program,Joint Mobilizations,Manual Therapy, Neuromuscular Re-education, Patient/Caregiver Education, Self-Care/Home Management, Taping,Therapeutic Activities, Therapeutic Exercises Modalities Electric Stimulation,Hot Packs ,Infrared Therapy, Iontophoresis,Ultrasound Next Visit Focus/Plan Next Note Type Treatment Note Next Visit Plan Continue progressive therapeutic exercises, modalities and manual therapy as needed for pain.
--- NOTE | 2021-05-24 09:00 | PT.OTN ---
Current Diagnoses Pain in unspecified knee (05/24/21) Physical Therapy Treatment Note PT-OP-A Visit Information Start: 02/28/21 14:22 Freq: Status: Active Protocol: Document 05/24/21 09:04 BEN (Rec: 05/24/21 09:47 [facility] [id number]) Out-Patient Physical Therapy Visit Information Visit Information Visit Type Treatment Note 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 Hiatal hernia (~11/22/20) History of recurrent pneumonia History of stent insertion of renal artery Hypertension Left renal artery stenosis (~ 11/22/20) Macular degeneration, age related, nonexudative Osteopenia of femoral neck, bilateral (~02/2019) Paroxysmal atrial fibrillation Parumbilical hernia (~11/22/20 ) Pressure ulcer, buttock, right , unstageable Prinzmetal's angina (1975) Proteus enteritis (~2018) Renal artery atherosclerosis ( 09/22/11) Severe obstructive sleep apnea -hypopnea syndrome (10/22/15) Shingles (2016) Statin intolerance Stenosis of celiac artery (~) Systemic lupus erythematosus Thyroid nodule Surgical History (Reviewed 06/14 @ 14:15 by Jaye Rosado DO) H/O colonoscopy with polypectomy (~04/2020) History of arthroplasty (12/09) History of arthroplasty (01/20) History of cataract removal with insertion of prosthetic lens (2014) History of cholecystectomy History of tonsillectomy Stented coronary artery (2013) PT-OP-B Current Condition Start: 02/28/21 14:22 Freq: Status: Active Protocol: Document 04/21/21 09:09 BEN (Rec: 04/21/21 09:49 [facility] [id number]) Current Condition Current Functional Impairments (Reported) Functional Limitations- ADL's painful Functional Limitations- Mobility/Gait painful Functional Limitations- Recreation/ slow, paced, sedentary, Hobbies painful all positions PT-OP-C Subjective Start: 02/28/21 14:22 Freq: Status: Active Protocol: Document 05/24/21 09:04 SAK (Rec: 05/24/21 09:47 SAK [id number]) OP-PT Subjective Patient Comments Patient Comments Can touch right knee now without going through the roof after her fall. Upper back and lower back were also sore after fall. Using ice. Hasn' t gone to the doctor' I was just sore. Has done isometric exercise. Has been doing self-massage. PT-OP-E Functional Tests Start: 02/28/21 14:22 Freq: Status: Active Protocol: Document 03/01/21 09:06 SAK (Rec: 03/01/21 13:42 [facility] [id number]) Functional Tests Five Times Sit to Stand Test Comments unable due to pain Timed Up and Go (TUG) Comments not done today due to pain PT-OP-F Manual Assessment Start: 02/28/21 14:22 Freq: Status: Active Protocol: Document 03/01/21 09:06 SAK (Rec: 03/01/21 13:42 [facility] [id number]) Manual Assessments Soft Tissue Assessment Soft Tissue Mobility Assessment tightness right IT band to palpation PT-OP-G Mobility & Gait Start: 02/28/21 14:22 Freq: Status: Active Protocol: Document 03/01/21 09:06 SAK (Rec: 03/01/21 13:42 [facility] [id number]) OP Mobility Evaluation Transfers Sit to Stand with much effort OP Gait Assessment Gait Gait Assistance Required: Independent Assistive Devices Assistive Device None Gait Deviations General Gait Pattern Antalgic Factors Limiting Gait Function Factors Limiting Gait Function Pain,Respiratory Distress Stair Climbing Evaluation Comments Stair Climbing Comments not done due to pain and deconditioning PT-OP-H Neuro Start: 02/28/21 14:22 Freq: Status: Active Protocol: Document 03/01/21 09:06 SAK (Rec: 03/01/21 13:42 [facility] [id number]) Sensation Evaluation Gross Sensation Gross Sensation WNL PT-OP-J Posture/Palpation/Skin Start: 02/28/21 14:22 Freq: Status: Active Protocol: Document 03/01/21 09:06 SAK (Rec: 03/01/21 13:42 [facility] [id number]) Posture Evaluation Position Sitting Head/C-Spine Posture Forward Head T-Spine Posture Increased Kyphosis L-Spine Posture Increased Lordosis Scapula Posture (L) Protracted,(R) Protracted Arm Posture (L) Internally Rotated,(R) Internally Rotated Pelvis Posture Anteriorly Tilted Hip Posture (L) Externally Rotated,(R) Externally Rotated Knee Posture (R) Genu Recurvatum Ankle/Foot Posture (L) Pronated,(R) Pronated Palpation Assessment Location right lateral gastroc Palpation Location right IT band Palpation Findings Soft Tissue Tightness, Tenderness IT band Palpation Location right IT band Palpation Findings Soft Tissue Tightness, Tenderness PT-OP-K Range of Motion Start: 02/28/21 14:22 Freq: Status: Active Protocol: Document 03/01/21 09:06 [facility] (Rec: 03/01/21 13:42 [facility] [id number]) Lumbar Spine Range of Motion Lumbar Spine Active Extension 0 ROM Limitations Pain Comments mod decreased all motions due to pain Hip Goniometric Range of Motion Hip luisa Hip ROM WFL Yes Knee Goniometric Range of Motion Knee luisa Knee ROM WFL Yes Hyper-Extension Active 5 Comments painful movement throughout the range right Ankle and Foot Goniometric Range of Motion Ankle and Foot luisa Ankle/Foot ROM WFL No Dorsiflexion with Knee Extended 0 Ankle and Foot ROM Limitations ROM Limitations Soft Tissue Tightness PT-OP-M Strength Start: 02/28/21 14:22 Freq: Status: Active Protocol: Document 03/01/21 09:06 [facility] (Rec: 03/01/21 13:42 [facility] [id number]) Hip Strength Hip Manual Muscle Testing luisa Flexion (L2) 4- Good- Extension (S1) 3+ Fair+ Abduction 4- Good- Adduction 4- Good- External Rotation 3+ Fair+ Internal Rotation 4- Good- Knee Strength Knee Manual Muscle Testing luisa Flexion (S2) 4 Good Extension (L3) 4 Good PT-OP-Q Treatments Start: 02/28/21 14:22 Freq: Status: Active Protocol: Document 05/24/21 09:04 [facility] (Rec: 05/24/21 09:47 [facility] [id number]) Cardio Equipment Recumbent Stepper (Sci-Fit) Duration (Minutes) 14 Resistance 1 Seat Position 12 Gym Equipment Shuttle Recovery Unilateral Squats Resistance 37 Shuttle Recovery Platform Stable Reps/Time 10x2 Bilateral Squats Resistance 62 Shuttle Recovery Platform Stable Reps/Time 10x2 Shuttle Balance chains red, cords loose Details balance and weight shift fwd/ bck, side to side bal Reps/Duration 4 min Therapeutic Exercises Standing Exercises row, shoulder ext Resistance L1 Reps/Minutes 10x Manual Therapy Treatment Soft Tissue Mobilization thoracolumbar spine Mobilization Type Myofascial Release,Strumming Intensity/Depth Moderate IT band Mobilization Type Instrument Assisted,Myofascial Release,Strumming Intensity/Depth Moderate Body Position Sidelying left piriformis, buttock Mobilization Type Myofascial Release,Strumming, Sustained Pressure Intensity/Depth Moderate Body Position Sidelying 2 Body Location luisa UT, bilateral c/s, upper thoracic, mid thoracic Mobilization Type Myofascial Release,Rolling, Strumming,Sustained Pressure, Trigger Point Release Intensity/Depth Moderate Body Position Prone Comments prone pillow for better access to thoracic spine PT-OP-R Modalities Start: 02/28/21 14:22 Freq: Status: Active Protocol: Document 05/24/21 09:04 [facility] (Rec: 05/24/21 09:47 [facility] [id number]) Hot Pack/Cold Pack Treatment Hot Pack Location lumbar spine, buttocks Patient Position Sitting Treatment Duration (minutes) 15 Patient Tolerance Good PT-OP-T Assessment and Plan Start: 02/28/21 14:22 Freq: Status: Active Protocol: Document 05/24/21 09:04 [facility] (Rec: 05/24/21 09:47 [facility] [id number]) Physical Therapy Assessment Goals Four Impairment lower extremity functional scale score 38% Short Term Goal (STG) Improve LEFS to at least 50% STG Duration Warehouse Shipper Goal (LTG) Improve LEFS to at least 65% LTG Duration 05/30/21 Three Impairment tightness and tenderness right IT band, decrease PA mobility right tib-fib Long-Term Goal (LTG) Decrease tightness and tenderness right IT band, PA mobility right tib-fib joint WNL for improved right LE movement and function LTG Duration 05/30/21 Two Impairment weakness bilateral LE's right greater than left Short Term Goal (STG) Patient to be independent and compliant to progressive therapeutic exercise program without c/o increase in pain STG Duration 04/14/21 Warehouse Shipper Goal (LTG) Patient to demonstrate bilateral LE strength of at least 4/5 throughout LTG Duration 05/30/21 One Impairment pain right LE 7/10 on pain scale Short Term Goal (STG) decrease pain to no greater than 4/10 with usual activities and ADL's , including right sidelying sleeping position STG Duration 04/14/21 Warehouse Shipper Goal (LTG) Patient to report pain no greater than 2/10 right LE with all usual activities, ADL 's and her usual sleep position of right sidelying LTG Duration 05/30/21 Assessment Summary Assessment Patient appears not to have suffered injury from fall, soreness from that has gradually improved. Good tolerance for ther ex today. Multiple trigger points buttock, LB, IT band, tolerating increased intensity of STM Physical Therapy Plan Frequency and Duration Frequency of Treatment 2x/Week Duration of Treatment 12 weeks Plan of Care Start Date 03/01/21 Plan of Care End Date 05/30/21 Therapeutic Interventions Therapeutic Interventions Home Exercise Program,Joint Mobilizations,Manual Therapy, Neuromuscular Re-education, Patient/Caregiver Education, Self-Care/Home Management, Taping,Therapeutic Activities, Therapeutic Exercises Modalities Electric Stimulation,Hot Packs ,Infrared Therapy, Iontophoresis,Ultrasound Next Visit Focus/Plan Next Note Type Re-Evaluation Next Visit Plan Continue progressive therapeutic exercises, modalities and manual therapy as needed for pain.
--- NOTE | 2021-05-26 16:36 | PT.OTRE ---
Current Diagnoses Pain in unspecified knee (05/26/21) Past Medical History (Last Updated 03/26/21 @ 11:20 by Soledad Vick DO) Angioedema Asthma Bone lesion CAD (coronary artery disease) (1979) Coccidioidomycosis (~1962) Dyslipidemia EBV infection (~1962) Elevated coronary artery calcium score H/O colonoscopy with polypectomy (~04/2020) 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 Hiatal hernia (~11/22/20) History of arthroplasty (12/09/12) History of arthroplasty (01/20/13) History of cholecystectomy History of recurrent pneumonia History of stent insertion of renal artery History of tonsillectomy Hypertension Left renal artery stenosis (~11/22/20) Macular degeneration, age related, nonexudative Ocular migraine Osteopenia of femoral neck, bilateral (~02/2019) Paroxysmal atrial fibrillation Parumbilical hernia (~11/22/20) Pressure ulcer, buttock, right, unstageable Prinzmetal's angina (1975) Proteus enteritis (~2018) Renal artery atherosclerosis (09/22/11) Severe obstructive sleep apnea-hypopnea syndrome (10/22/15) Shingles (2016) Statin intolerance Stenosis of celiac artery (~11/22/20) Stented coronary artery (2013) Systemic lupus erythematosus Thyroid nodule Surgical History (Last Reviewed 02/24/21 @ 09:55 by Erick Jasso MD) H/O colonoscopy with polypectomy (~04/2020) History of arthroplasty (12/09/12) History of arthroplasty (01/20/13) History of cataract removal with insertion of prosthetic lens (2014) History of cholecystectomy History of tonsillectomy Stented coronary artery (2013) Visit Care Team Role Provider Type Soledad Vick DO Attending Provider Physician Primary Care Provider Referring Provider Specialty: [facility] Practice Address: [address] [place] [address], [address], [address] Email: [email or web address] Physical Therapy Re-Evaluation PT-OP-A Visit Information Start: 02/28/21 14:22 Freq: Status: Active Protocol: Document 05/26/21 09:03 BEN (Rec: 05/26/21 09:46 SAK [id number]) Out-Patient Physical Therapy Visit Information Visit Information Visit Type Treatment Note Visit Start Time 09:00 Visit Stop Time 10:00 Total Visit Minutes 60 Visit Number 8 Precautions Precautions Medical History (Updated 01/19 @ 17:21 by Soledad Vick DO) Angioedema Asthma CAD (coronary artery disease) (1979) Coccidioidomycosis (~1962) Dyslipidemia EBV infection (~1962) Elevated coronary artery calcium score 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 Hiatal hernia (~11/22/20) History of recurrent pneumonia History of stent insertion of renal artery Hypertension Left renal artery stenosis (~ 11/22/20) Macular degeneration, age related, nonexudative Osteopenia of femoral neck, bilateral (~02/2019) Paroxysmal atrial fibrillation Parumbilical hernia (~11/22/20 ) Pressure ulcer, buttock, right , unstageable Prinzmetal's angina (1975) Proteus enteritis (~2018) Renal artery atherosclerosis ( 09/22/11) Severe obstructive sleep apnea -hypopnea syndrome (10/22/15) Shingles (2016) Statin intolerance Stenosis of celiac artery (~) Systemic lupus erythematosus Thyroid nodule Surgical History (Reviewed 06/14 @ 14:15 by Jaye Rosado DO) H/O colonoscopy with polypectomy (~04/2020) History of arthroplasty (12/09) History of arthroplasty (01/20) History of cataract removal with insertion of prosthetic lens (2014) History of cholecystectomy History of tonsillectomy Stented coronary artery (2013) PT-OP-B Current Condition Start: 02/28/21 14:22 Freq: Status: Active Protocol: Document 04/21/21 09:09 SAK (Rec: 04/21/21 09:49 [facility] [id number]) Current Condition Current Functional Impairments (Reported) Functional Limitations- ADL's painful Functional Limitations- Mobility/Gait painful Functional Limitations- Recreation/ slow, paced, sedentary, Hobbies painful all positions PT-OP-C Subjective Start: 02/28/21 14:22 Freq: Status: Active Protocol: Document 05/26/21 09:03 SAK (Rec: 05/26/21 09:46 [facility] [id number]) OP-PT Subjective Patient Comments Patient Comments Reports she doesn't feel she has had any negative effects from her fall, better after last PT session. In process of signing up to use recumbant elliptical at [facility] [employer] [place]. Has appointment to see Dr. Pop (chiropractor) next month. Pain intermittant. Fatigue level remains high with occasional bursts of energy. PT-OP-E Functional Tests Start: 02/28/21 14:22 Freq: Status: Active Protocol: Document 03/01/21 09:06 [facility] (Rec: 03/01/21 13:42 [facility] [id number]) Functional Tests Five Times Sit to Stand Test Comments unable due to pain Timed Up and Go (TUG) Comments not done today due to pain PT-OP-F Manual Assessment Start: 02/28/21 14:22 Freq: Status: Active Protocol: Document 03/01/21 09:06 SAK (Rec: 03/01/21 13:42 [facility] [id number]) Manual Assessments Soft Tissue Assessment Soft Tissue Mobility Assessment tightness right IT band to palpation PT-OP-G Mobility & Gait Start: 02/28/21 14:22 Freq: Status: Active Protocol: Document 03/01/21 09:06 SAK (Rec: 03/01/21 13:42 [facility] [id number]) OP Mobility Evaluation Transfers Sit to Stand with much effort OP Gait Assessment Gait Gait Assistance Required: Independent Assistive Devices Assistive Device None Gait Deviations General Gait Pattern Antalgic Factors Limiting Gait Function Factors Limiting Gait Function Pain,Respiratory Distress Stair Climbing Evaluation Comments Stair Climbing Comments not done due to pain and deconditioning PT-OP-H Neuro Start: 02/28/21 14:22 Freq: Status: Active Protocol: Document 03/01/21 09:06 SAK (Rec: 03/01/21 13:42 [facility] [id number]) Sensation Evaluation Gross Sensation Gross Sensation WNL PT-OP-J Posture/Palpation/Skin Start: 02/28/21 14:22 Freq: Status: Active Protocol: Document 03/01/21 09:06 SAK (Rec: 03/01/21 13:42 SAK [id number]) Posture Evaluation Position Sitting Head/C-Spine Posture Forward Head T-Spine Posture Increased Kyphosis L-Spine Posture Increased Lordosis Scapula Posture (L) Protracted,(R) Protracted Arm Posture (L) Internally Rotated,(R) Internally Rotated Pelvis Posture Anteriorly Tilted Hip Posture (L) Externally Rotated,(R) Externally Rotated Knee Posture (R) Genu Recurvatum Ankle/Foot Posture (L) Pronated,(R) Pronated Palpation Assessment Location right lateral gastroc Palpation Location right IT band Palpation Findings Soft Tissue Tightness, Tenderness IT band Palpation Location right IT band Palpation Findings Soft Tissue Tightness, Tenderness PT-OP-K Range of Motion Start: 02/28/21 14:22 Freq: Status: Active Protocol: Document 03/01/21 09:06 [facility] (Rec: 03/01/21 13:42 [facility] [id number]) Lumbar Spine Range of Motion Lumbar Spine Active Extension 0 ROM Limitations Pain Comments mod decreased all motions due to pain Hip Goniometric Range of Motion Hip Measured in Degrees luisa Hip ROM WFL Yes Knee Goniometric Range of Motion Knee Measured in Degrees luisa Knee ROM WFL Yes Hyper-Extension Active 5 Comments painful movement throughout the range right Ankle and Foot Goniometric Range of Motion Ankle and Foot Measured in Degrees luisa Ankle/Foot ROM WFL No Dorsiflexion with Knee Extended 0 Ankle and Foot ROM Limitations ROM Limitations Soft Tissue Tightness PT-OP-M Strength Start: 02/28/21 14:22 Freq: Status: Active Protocol: Document 03/01/21 09:06 [facility] (Rec: 03/01/21 13:42 [facility] [id number]) Hip Strength Hip Manual Muscle Testing luisa Flexion (L2) 4- Good- Extension (S1) 3+ Fair+ Abduction 4- Good- Adduction 4- Good- External Rotation 3+ Fair+ Internal Rotation 4- Good- Knee Strength Knee Manual Muscle Testing luisa Flexion (S2) 4 Good Extension (L3) 4 Good PT-OP-Q Treatments Start: 02/28/21 14:22 Freq: Status: Active Protocol: Document 05/26/21 09:03 [facility] (Rec: 05/26/21 09:46 [facility] [id number]) Cardio Equipment Recumbent Stepper (Sci-Fit) Duration (Minutes) 14 Resistance 1.1 Seat Position 12 Gym Equipment Shuttle Recovery Unilateral Squats Resistance 37 Shuttle Recovery Platform Stable Reps/Time 10x2 Bilateral Squats Resistance 75 Shuttle Recovery Platform Stable Reps/Time 10x2 Shuttle Balance chains red, cords loose Details balance and weight shift fwd/ bck with feet staggered Reps/Duration 4 min Therapeutic Exercises Standing Exercises row, shoulder ext Resistance L1 Reps/Minutes 10x Comments cues for postural alignment and core activation. Manual Therapy Treatment Soft Tissue Mobilization thoracolumbar spine Mobilization Type Myofascial Release,Strumming Intensity/Depth Moderate IT band Mobilization Type Myofascial Release,Strumming Intensity/Depth Moderate Body Position Sidelying left piriformis, buttock Mobilization Type Myofascial Release,Strumming, Sustained Pressure Intensity/Depth Moderate Body Position Sidelying 2 Body Location luisa UT, bilateral c/s, upper thoracic, mid thoracic Mobilization Type Myofascial Release,Rolling, Strumming,Sustained Pressure, Trigger Point Release Intensity/Depth Moderate Body Position Prone Comments prone pillow for better access to thoracic spine 1 Body Location luisa lumbar and mid thoracic spine Mobilization Type Myofascial Release,Rolling Intensity/Depth Moderate Body Position Prone PT-OP-R Modalities Start: 02/28/21 14:22 Freq: Status: Active Protocol: Document 05/26/21 09:03 [facility] (Rec: 05/26/21 09:46 [facility] [id number]) Hot Pack/Cold Pack Treatment Hot Pack Location lumbar spine, buttocks Patient Position Sitting Treatment Duration (minutes) 15 Patient Tolerance Good PT-OP-T Assessment and Plan Start: 02/28/21 14:22 Freq: Status: Active Protocol: Document 05/26/21 09:03 [facility] (Rec: 05/26/21 09:46 [facility] [id number]) Physical Therapy Assessment Goals Four Impairment lower extremity functional scale score 38% Short Term Goal (STG) Improve LEFS to at least 50% 05/26/21: goal met, 50% today STG Duration goal met Fdc Goal (LTG) Improve LEFS to at least 65% LTG Duration 07/26/21 Three Impairment tightness and tenderness right IT band, decrease PA mobility right tib-fib Fdc Goal (LTG) Decrease tightness and tenderness right IT band, PA mobility right tib-fib joint WNL for improved right LE movement and function 05/26/21: good goal progress with patient tolerating increased intensity of STM LTG Duration 07/26/21 Two Impairment weakness bilateral LE's right greater than left Short Term Goal (STG) Patient to be independent and compliant to progressive therapeutic exercise program without c/o increase in pain 05/26/21: goal met STG Duration goal met Fdc Goal (LTG) Patient to demonstrate bilateral LE strength of at least 4/5 throughout LTG Duration 05/30/21 One Impairment pain right LE 7/10 on pain scale Short Term Goal (STG) decrease pain to no greater than 4/10 with usual activities and ADL's , including right sidelying sleeping position 05/26/21: goal progress, intermittant pain but still as high as 7/10 STG Duration 06/25/21 Music Publisher Goal (LTG) Patient to report pain no greater than 2/10 right LE with all usual activities, ADL 's and her usual sleep position of right sidelying LTG Duration 07/26/21 Assessment Summary Assessment Patient has made progress toward goals with decreased pain, more intermittant, better ability to sleep, improving strength. She does get intermittant spikes still to 7/10 intensity but less frequent. She is compliant to her HEP and remains highly motivated to make further improvements. She has had 8 physical therapy sessions. Due to multiple medical issues patient energy level quite low but she is receptive to recommendations and instructions but anticipate progress to be somewhat slow. Recommend continued skilled physical therapy to address above goals to improve her pain, strength, activity tolerance, and quality of life . Physical Therapy Plan Frequency and Duration Frequency of Treatment 2x/Week Duration of Treatment 8 weeks Plan of Care Start Date 05/26/21 Plan of Care End Date 07/26/21 Therapeutic Interventions Therapeutic Interventions Home Exercise Program,Joint Mobilizations,Manual Therapy, Neuromuscular Re-education, Patient/Caregiver Education, Self-Care/Home Management, Taping,Therapeutic Activities, Therapeutic Exercises Modalities Electric Stimulation,Hot Packs ,Infrared Therapy, Iontophoresis,Ultrasound Next Visit Focus/Plan Next Note Type Treatment Note Next Visit Plan Continue progressive therapeutic exercises, modalities and manual therapy as needed decreased pain, improved strength and activity tolerance.
--- NOTE | 2021-05-26 16:36 | PT.OPPOC ---
Physical, Occupational & Speech Therapy At [facility] Current Diagnoses Pain in unspecified knee (05/26/21) Visit Care Team Role Provider Type Soledad Vick DO Attending Provider Physician Primary Care Provider Referring Provider Specialty: Family Practice Address: [address] [place] [address], [address], [address] Email: [email or web address] Plan Of Care PT-OP-T Assessment and Plan Start: 02/28/21 14:22 Freq: Status: Active Protocol: Document 05/26/21 09:03 SAK (Rec: 05/26/21 09:46 SAK [id number]) Physical Therapy Assessment Goals Four Impairment lower extremity functional scale score 38% Short Term Goal (STG) Improve LEFS to at least 50% 05/26/21: goal met, 50% today STG Duration goal met Tribal [employer] Member Goal (LTG) Improve LEFS to at least 65% LTG Duration 07/26/21 Three Impairment tightness and tenderness right IT band, decrease PA mobility right tib-fib Jail Goal (LTG) Decrease tightness and tenderness right IT band, PA mobility right tib-fib joint WNL for improved right LE movement and function 05/26/21: good goal progress with patient tolerating increased intensity of STM LTG Duration 07/26/21 Two Impairment weakness bilateral LE's right greater than left Short Term Goal (STG) Patient to be independent and compliant to progressive therapeutic exercise program without c/o increase in pain 05/26/21: goal met STG Duration goal met Jail Goal (LTG) Patient to demonstrate bilateral LE strength of at least 4/5 throughout LTG Duration 05/30/21 One Impairment pain right LE 7/10 on pain scale Short Term Goal (STG) decrease pain to no greater than 4/10 with usual activities and ADL's , including right sidelying sleeping position 05/26/21: goal progress, intermittant pain but still as high as 7/10 STG Duration 06/25/21 Jail Goal (LTG) Patient to report pain no greater than 2/10 right LE with all usual activities, ADL 's and her usual sleep position of right sidelying LTG Duration 07/26/21 Assessment Summary Assessment Patient has made progress toward goals with decreased pain, more intermittant, better ability to sleep, improving strength. She does get intermittant spikes still to 7/10 intensity but less frequent. She is compliant to her HEP and remains highly motivated to make further improvements. She has had 8 physical therapy sessions. Due to multiple medical issues patient energy level quite low but she is receptive to recommendations and instructions but anticipate progress to be somewhat slow. Recommend continued skilled physical therapy to address above goals to improve her pain, strength, activity tolerance, and quality of life . Physical Therapy Plan Frequency and Duration Frequency of Treatment 2x/Week Duration of Treatment 8 weeks Plan of Care Start Date 05/26/21 Plan of Care End Date 07/26/21 Therapeutic Interventions Therapeutic Interventions Home Exercise Program,Joint Mobilizations,Manual Therapy, Neuromuscular Re-education, Patient/Caregiver Education, Self-Care/Home Management, Taping,Therapeutic Activities, Therapeutic Exercises Modalities Electric Stimulation,Hot Packs ,Infrared Therapy, Iontophoresis,Ultrasound Next Visit Focus/Plan Next Note Type Treatment Note Next Visit Plan Continue progressive therapeutic exercises, modalities and manual therapy as needed decreased pain, improved strength and activity tolerance. Plan of Care Dates Plan of Care Start Date 05/26/21 Plan of Care End Date 07/26/21 Electronically Signed by: Luh Weaver, PT 05/26/21 0510 Please Sign and Return: I have reviewed this Plan of Care and certify that the skilled therapy services above are required to meet the patient?s needs. Physician Signature Date Printed Name and Credentials Clinical Instructor Signature Printed Name and Credentials
--- NOTE | 2021-05-31 14:21 | PT.OTN ---
Current Diagnoses Pain in unspecified knee (05/31/21) Physical Therapy Treatment Note PT-OP-A Visit Information Start: 02/28/21 14:22 Freq: Status: Active Protocol: Document 05/31/21 14:09 BEN (Rec: 05/31/21 14:20 [facility] [id number]) Out-Patient Physical Therapy Visit Information Visit Information Visit Type Treatment Note Visit Start Time 09:10 Visit Stop Time 10:00 Total Visit Minutes 50 Visit Number 9 Precautions Precautions Medical History (Updated 01/19 @ 17:21 by Soledad Vick DO) Angioedema Asthma CAD (coronary artery disease) (1979) Coccidioidomycosis (~1962) Dyslipidemia EBV infection (~1962) Elevated coronary artery calcium score 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 Hiatal hernia (~11/22/20) History of recurrent pneumonia History of stent insertion of renal artery Hypertension Left renal artery stenosis (~ 11/22/20) Macular degeneration, age related, nonexudative Osteopenia of femoral neck, bilateral (~02/2019) Paroxysmal atrial fibrillation Parumbilical hernia (~11/22/20 ) Pressure ulcer, buttock, right , unstageable Prinzmetal's angina (1975) Proteus enteritis (~2018) Renal artery atherosclerosis ( 09/22/11) Severe obstructive sleep apnea -hypopnea syndrome (10/22/15) Shingles (2016) Statin intolerance Stenosis of celiac artery (~) Systemic lupus erythematosus Thyroid nodule Surgical History (Reviewed 06/14 @ 14:15 by Jaye Rosado DO) H/O colonoscopy with polypectomy (~04/2020) History of arthroplasty (12/09) History of arthroplasty (01/20) History of cataract removal with insertion of prosthetic lens (2014) History of cholecystectomy History of tonsillectomy Stented coronary artery (2013) PT-OP-B Current Condition Start: 02/28/21 14:22 Freq: Status: Active Protocol: Document 04/21/21 09:09 BEN (Rec: 04/21/21 09:49 [facility] [id number]) Current Condition Current Functional Impairments (Reported) Functional Limitations- ADL's painful Functional Limitations- Mobility/Gait painful Functional Limitations- Recreation/ slow, paced, sedentary, Hobbies painful all positions PT-OP-C Subjective Start: 02/28/21 14:22 Freq: Status: Active Protocol: Document 05/31/21 14:09 SAK (Rec: 05/31/21 14:20 [facility] [id number]) OP-PT Subjective Patient Comments Patient Comments c/o not feeling well, had high BP reading over weekend ( systolic over 200). Used recumbent elliptical at [employer], but states the seat causes her back pain. States her worst pain today is in mid thoracic spine. Sees Dr. Vick 06/03/21. PT-OP-E Functional Tests Start: 02/28/21 14:22 Freq: Status: Active Protocol: Document 03/01/21 09:06 [facility] (Rec: 03/01/21 13:42 [facility] [id number]) Functional Tests Five Times Sit to Stand Test Comments unable due to pain Timed Up and Go (TUG) Comments not done today due to pain PT-OP-F Manual Assessment Start: 02/28/21 14:22 Freq: Status: Active Protocol: Document 03/01/21 09:06 [facility] (Rec: 03/01/21 13:42 [facility] [id number]) Manual Assessments Soft Tissue Assessment Soft Tissue Mobility Assessment tightness right IT band to palpation PT-OP-G Mobility & Gait Start: 02/28/21 14:22 Freq: Status: Active Protocol: Document 03/01/21 09:06 SAK (Rec: 03/01/21 13:42 [facility] [id number]) OP Mobility Evaluation Transfers Sit to Stand with much effort OP Gait Assessment Gait Gait Assistance Required: Independent Assistive Devices Assistive Device None Gait Deviations General Gait Pattern Antalgic Factors Limiting Gait Function Factors Limiting Gait Function Pain,Respiratory Distress Stair Climbing Evaluation Comments Stair Climbing Comments not done due to pain and deconditioning PT-OP-H Neuro Start: 02/28/21 14:22 Freq: Status: Active Protocol: Document 03/01/21 09:06 SAK (Rec: 03/01/21 13:42 [facility] [id number]) Sensation Evaluation Gross Sensation Gross Sensation WNL PT-OP-J Posture/Palpation/Skin Start: 02/28/21 14:22 Freq: Status: Active Protocol: Document 03/01/21 09:06 SAK (Rec: 03/01/21 13:42 [facility] [id number]) Posture Evaluation Position Sitting Head/C-Spine Posture Forward Head T-Spine Posture Increased Kyphosis L-Spine Posture Increased Lordosis Scapula Posture (L) Protracted,(R) Protracted Arm Posture (L) Internally Rotated,(R) Internally Rotated Pelvis Posture Anteriorly Tilted Hip Posture (L) Externally Rotated,(R) Externally Rotated Knee Posture (R) Genu Recurvatum Ankle/Foot Posture (L) Pronated,(R) Pronated Palpation Assessment Location right lateral gastroc Palpation Location right IT band Palpation Findings Soft Tissue Tightness, Tenderness IT band Palpation Location right IT band Palpation Findings Soft Tissue Tightness, Tenderness PT-OP-K Range of Motion Start: 02/28/21 14:22 Freq: Status: Active Protocol: Document 03/01/21 09:06 [facility] (Rec: 03/01/21 13:42 [facility] [id number]) Lumbar Spine Range of Motion Lumbar Spine Active Extension 0 ROM Limitations Pain Comments mod decreased all motions due to pain Hip Goniometric Range of Motion Hip luisa Hip ROM WFL Yes Knee Goniometric Range of Motion Knee luisa Knee ROM WFL Yes Hyper-Extension Active 5 Comments painful movement throughout the range right Ankle and Foot Goniometric Range of Motion Ankle and Foot luisa Ankle/Foot ROM WFL No Dorsiflexion with Knee Extended 0 Ankle and Foot ROM Limitations ROM Limitations Soft Tissue Tightness PT-OP-M Strength Start: 02/28/21 14:22 Freq: Status: Active Protocol: Document 03/01/21 09:06 [facility] (Rec: 03/01/21 13:42 [facility] [id number]) Hip Strength Hip Manual Muscle Testing luisa Flexion (L2) 4- Good- Extension (S1) 3+ Fair+ Abduction 4- Good- Adduction 4- Good- External Rotation 3+ Fair+ Internal Rotation 4- Good- Knee Strength Knee Manual Muscle Testing luisa Flexion (S2) 4 Good Extension (L3) 4 Good PT-OP-Q Treatments Start: 02/28/21 14:22 Freq: Status: Active Protocol: Document 05/31/21 14:09 [facility] (Rec: 05/31/21 14:20 [facility] [id number]) Manual Therapy Treatment Soft Tissue Mobilization IT band Mobilization Type Myofascial Release,Strumming Intensity/Depth Moderate Body Position Sidelying 1 Body Location luisa lumbar and mid thoracic spine Mobilization Type Myofascial Release,Rolling Intensity/Depth Moderate Body Position Prone PT-OP-R Modalities Start: 02/28/21 14:22 Freq: Status: Active Protocol: Document 05/31/21 14:09 [facility] (Rec: 05/31/21 14:20 [facility] [id number]) Hot Pack/Cold Pack Treatment Hot Pack Location lumbar spine, buttocks Patient Position Sitting Treatment Duration (minutes) 15 Patient Tolerance Good Ultrasound Therapy Treatment mid thoracic paraspinals Treatment Duration (minutes) 8 Patient Position Sitting Mode Setting Continuous Duty Cycle 100% Intensity Setting (w/cm2) 1.4 PT-OP-T Assessment and Plan Start: 02/28/21 14:22 Freq: Status: Active Protocol: Document 05/31/21 14:09 [facility] (Rec: 05/31/21 14:20 [facility] [id number]) Physical Therapy Assessment Goals Four Impairment lower extremity functional scale score 38% Short Term Goal (STG) Improve LEFS to at least 50% 05/26/21: goal met, 50% today STG Duration goal met Assisted Goal (LTG) Improve LEFS to at least 65% LTG Duration 07/26/21 Three Impairment tightness and tenderness right IT band, decrease PA mobility right tib-fib Bus Driver Goal (LTG) Decrease tightness and tenderness right IT band, PA mobility right tib-fib joint WNL for improved right LE movement and function 05/26/21: good goal progress with patient tolerating increased intensity of STM LTG Duration 07/26/21 Two Impairment weakness bilateral LE's right greater than left Short Term Goal (STG) Patient to be independent and compliant to progressive therapeutic exercise program without c/o increase in pain 05/26/21: goal met STG Duration goal met Bus Driver Goal (LTG) Patient to demonstrate bilateral LE strength of at least 4/5 throughout LTG Duration 05/30/21 One Impairment pain right LE 7/10 on pain scale Short Term Goal (STG) decrease pain to no greater than 4/10 with usual activities and ADL's , including right sidelying sleeping position 05/26/21: goal progress, intermittant pain but still as high as 7/10 STG Duration 06/25/21 Assisted Goal (LTG) Patient to report pain no greater than 2/10 right LE with all usual activities, ADL 's and her usual sleep position of right sidelying LTG Duration 07/26/21 Assessment Summary Assessment Patient not feeling well today , states had high BP reading at home as well as headache over the weekend. Hasn't checked BP this am, but states she is trying to stay calm to keep BP down. Sees Dr. Vick 06/03/21; she is away right now and patient doesn't want to go to ER or urgent care. BP in PT was 134/90. Patient advised to monitor at home and contact doctor's office or go to ER if above 200 systolic again as was over weekend; patient agreeable. No ther ex today, focused on manual treatment and patient education. Physical Therapy Plan Frequency and Duration Frequency of Treatment 2x/Week Duration of Treatment 8 weeks Plan of Care Start Date 05/26/21 Plan of Care End Date 07/26/21 Therapeutic Interventions Therapeutic Interventions Home Exercise Program,Joint Mobilizations,Manual Therapy, Neuromuscular Re-education, Patient/Caregiver Education, Self-Care/Home Management, Taping,Therapeutic Activities, Therapeutic Exercises Modalities Electric Stimulation,Hot Packs ,Infrared Therapy, Iontophoresis,Ultrasound Next Visit Focus/Plan Next Note Type Treatment Note Next Visit Plan Monitor BP, continue gentle progression of ther ex as patient tolerates, manual therapy and modalities for pain management.
--- NOTE | 2021-06-02 09:37 | PT-OP ANOTE ---
cancelled due to hospital admission for hypertension
--- NOTE | 2021-06-07 08:09 | PT.OPPN ---
Current Diagnoses Pain in unspecified knee (06/07/21) Physical Therapy Progress Note PT-OP-A Visit Information Start: 02/28/21 14:22 Freq: Status: Active Protocol: Document 06/07/21 09:00 [facility] (Rec: 06/07/21 09:47 [facility] [id number]) Out-Patient Physical Therapy Visit Information Visit Information Visit Type Treatment Note Visit Start Time 09:00 Visit Stop Time 10:00 Total Visit Minutes 60 Visit Number 10 Precautions Precautions Medical History (Updated 01/19 @ 17:21 by Soledad Vick DO) Angioedema Asthma CAD (coronary artery disease) (1979) Coccidioidomycosis (~1962) Dyslipidemia EBV infection (~1962) Elevated coronary artery calcium score 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 Hiatal hernia (~11/22/20) History of recurrent pneumonia History of stent insertion of renal artery Hypertension Left renal artery stenosis (~ 11/22/20) Macular degeneration, age related, nonexudative Osteopenia of femoral neck, bilateral (~02/2019) Paroxysmal atrial fibrillation Parumbilical hernia (~11/22/20 ) Pressure ulcer, buttock, right , unstageable Prinzmetal's angina (1975) Proteus enteritis (~2018) Renal artery atherosclerosis ( 09/22/11) Severe obstructive sleep apnea -hypopnea syndrome (10/22/15) Shingles (2016) Statin intolerance Stenosis of celiac artery (~) Systemic lupus erythematosus Thyroid nodule Surgical History (Reviewed 06/14 @ 14:15 by Jaye Rosado DO) H/O colonoscopy with polypectomy (~04/2020) History of arthroplasty (12/09) History of arthroplasty (01/20) History of cataract removal with insertion of prosthetic lens (2014) History of cholecystectomy History of tonsillectomy Stented coronary artery (2013) PT-OP-B Current Condition Start: 02/28/21 14:22 Freq: Status: Active Protocol: Document 04/21/21 09:09 [facility] (Rec: 04/21/21 09:49 [facility] [id number]) Current Condition Current Functional Impairments (Reported) Functional Limitations- ADL's painful Functional Limitations- Mobility/Gait painful Functional Limitations- Recreation/ slow, paced, sedentary, Hobbies painful all positions PT-OP-C Subjective Start: 02/28/21 14:22 Freq: Status: Active Protocol: Document 06/07/21 09:00 [facility] (Rec: 06/07/21 09:47 [facility] [id number]) OP-PT Subjective Patient Comments Patient Comments Was in hospital with hypertensive episode. Sees senior industrial engineer tomorrow, dentist today, and laborer landscape . Was given rescue medicine in case BP goes above 185. Difficulty with fluid control due to heart failure and kidney disease. Back pain improved after not using Nu-[employer] machine at [employer]; feels seat causes her pain. Chin pain and knee pain better, but lateral right thigh pain, can lay on right side now part of the night. PT-OP-E Functional Tests Start: 02/28/21 14:22 Freq: Status: Active Protocol: Document 03/01/21 09:06 [facility] (Rec: 03/01/21 13:42 [facility] [id number]) Functional Tests Five Times Sit to Stand Test Comments unable due to pain Timed Up and Go (TUG) Comments not done today due to pain PT-OP-F Manual Assessment Start: 02/28/21 14:22 Freq: Status: Active Protocol: Document 03/01/21 09:06 [facility] (Rec: 03/01/21 13:42 [facility] [id number]) Manual Assessments Soft Tissue Assessment Soft Tissue Mobility Assessment tightness right IT band to palpation PT-OP-G Mobility & Gait Start: 02/28/21 14:22 Freq: Status: Active Protocol: Document 03/01/21 09:06 [facility] (Rec: 03/01/21 13:42 [facility] [id number]) OP Mobility Evaluation Transfers Sit to Stand with much effort OP Gait Assessment Gait Gait Assistance Required: Independent Assistive Devices Assistive Device None Gait Deviations General Gait Pattern Antalgic Factors Limiting Gait Function Factors Limiting Gait Function Pain,Respiratory Distress Stair Climbing Evaluation Comments Stair Climbing Comments not done due to pain and deconditioning PT-OP-H Neuro Start: 02/28/21 14:22 Freq: Status: Active Protocol: Document 03/01/21 09:06 [facility] (Rec: 03/01/21 13:42 [facility] [id number]) Sensation Evaluation Gross Sensation Gross Sensation WNL PT-OP-J Posture/Palpation/Skin Start: 02/28/21 14:22 Freq: Status: Active Protocol: Document 03/01/21 09:06 [facility] (Rec: 03/01/21 13:42 [facility] [id number]) Posture Evaluation Position Sitting Head/C-Spine Posture Forward Head T-Spine Posture Increased Kyphosis L-Spine Posture Increased Lordosis Scapula Posture (L) Protracted,(R) Protracted Arm Posture (L) Internally Rotated,(R) Internally Rotated Pelvis Posture Anteriorly Tilted Hip Posture (L) Externally Rotated,(R) Externally Rotated Knee Posture (R) Genu Recurvatum Ankle/Foot Posture (L) Pronated,(R) Pronated Palpation Assessment Location right lateral gastroc Palpation Location right IT band Palpation Findings Soft Tissue Tightness, Tenderness IT band Palpation Location right IT band Palpation Findings Soft Tissue Tightness, Tenderness PT-OP-K Range of Motion Start: 02/28/21 14:22 Freq: Status: Active Protocol: Document 03/01/21 09:06 [facility] (Rec: 03/01/21 13:42 [facility] [id number]) Lumbar Spine Range of Motion Lumbar Spine Active Extension 0 ROM Limitations Pain Comments mod decreased all motions due to pain Hip Goniometric Range of Motion Hip Measured in Degrees luisa Hip ROM WFL Yes Knee Goniometric Range of Motion Knee Measured in Degrees luisa Knee ROM WFL Yes Hyper-Extension Active 5 Comments painful movement throughout the range right Ankle and Foot Goniometric Range of Motion Ankle and Foot Measured in Degrees luisa Ankle/Foot ROM WFL No Dorsiflexion with Knee Extended 0 Ankle and Foot ROM Limitations ROM Limitations Soft Tissue Tightness PT-OP-M Strength Start: 02/28/21 14:22 Freq: Status: Active Protocol: Document 03/01/21 09:06 [facility] (Rec: 03/01/21 13:42 [facility] [id number]) Hip Strength Hip Manual Muscle Testing luisa Flexion (L2) 4- Good- Extension (S1) 3+ Fair+ Abduction 4- Good- Adduction 4- Good- External Rotation 3+ Fair+ Internal Rotation 4- Good- Knee Strength Knee Manual Muscle Testing luisa Flexion (S2) 4 Good Extension (L3) 4 Good PT-OP-T Assessment and Plan Start: 02/28/21 14:22 Freq: Status: Active Protocol: Document 06/07/21 09:00 [facility] (Rec: 06/07/21 09:47 [facility] [id number]) Physical Therapy Assessment Goals Four Impairment lower extremity functional scale score 38% Short Term Goal (STG) Improve LEFS to at least 50% 05/26/21: goal met, 50% today STG Duration goal met Long-Term Goal (LTG) Improve LEFS to at least 65% LTG Duration 07/26/21 Three Impairment tightness and tenderness right IT band, decrease PA mobility right tib-fib Long-Term Goal (LTG) Decrease tightness and tenderness right IT band, PA mobility right tib-fib joint WNL for improved right LE movement and function 05/26/21: good goal progress with patient tolerating increased intensity of STM LTG Duration 07/26/21 Two Impairment weakness bilateral LE's right greater than left Short Term Goal (STG) Patient to be independent and compliant to progressive therapeutic exercise program without c/o increase in pain 05/26/21: goal met STG Duration goal met Long-Term Goal (LTG) Patient to demonstrate bilateral LE strength of at least 4/5 throughout LTG Duration 05/30/21 One Impairment pain right LE 7/10 on pain scale Short Term Goal (STG) decrease pain to no greater than 4/10 with usual activities and ADL's , including right sidelying sleeping position 05/26/21: goal progress, intermittant pain but still as high as 7/10 STG Duration 06/25/21 Long-Term Goal (LTG) Patient to report pain no greater than 2/10 right LE with all usual activities, ADL 's and her usual sleep position of right sidelying LTG Duration 07/26/21 Assessment Summary Assessment BP 138/84 Physical Therapy Plan Frequency and Duration Frequency of Treatment 2x/Week Duration of Treatment 8 weeks Plan of Care Start Date 05/26/21 Plan of Care End Date 07/26/21 Therapeutic Interventions Therapeutic Interventions Home Exercise Program,Joint Mobilizations,Manual Therapy, Neuromuscular Re-education, Patient/Caregiver Education, Self-Care/Home Management, Taping,Therapeutic Activities, Therapeutic Exercises Modalities Electric Stimulation,Hot Packs ,Infrared Therapy, Iontophoresis,Ultrasound Next Visit Focus/Plan Next Note Type Treatment Note Next Visit Plan Monitor BP, continue gentle progression of ther ex as patient tolerates, manual therapy and modalities for pain management.
--- NOTE | 2021-06-07 10:17 | PT.OTN ---
Current Diagnoses Pain in unspecified knee (06/07/21) Physical Therapy Treatment Note PT-OP-A Visit Information Start: 02/28/21 14:22 Freq: Status: Active Protocol: Document 06/07/21 09:00 [facility] (Rec: 06/07/21 09:47 [facility] [id number]) Out-Patient Physical Therapy Visit Information Visit Information Visit Type Treatment Note Visit Start Time 09:00 Visit Stop Time 10:00 Total Visit Minutes 60 Visit Number 10 Precautions Precautions Medical History (Updated 01/19 @ 17:21 by Soledad Vick DO) Angioedema Asthma CAD (coronary artery disease) (1979) Coccidioidomycosis (~1962) Dyslipidemia EBV infection (~1962) Elevated coronary artery calcium score 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 Hiatal hernia (~11/22/20) History of recurrent pneumonia History of stent insertion of renal artery Hypertension Left renal artery stenosis (~ 11/22/20) Macular degeneration, age related, nonexudative Osteopenia of femoral neck, bilateral (~02/2019) Paroxysmal atrial fibrillation Parumbilical hernia (~11/22/20 ) Pressure ulcer, buttock, right , unstageable Prinzmetal's angina (1975) Proteus enteritis (~2018) Renal artery atherosclerosis ( 09/22/11) Severe obstructive sleep apnea -hypopnea syndrome (10/22/15) Shingles (2016) Statin intolerance Stenosis of celiac artery (~) Systemic lupus erythematosus Thyroid nodule Surgical History (Reviewed 06/14 @ 14:15 by Jaye Rosado DO) H/O colonoscopy with polypectomy (~04/2020) History of arthroplasty (12/09) History of arthroplasty (01/20) History of cataract removal with insertion of prosthetic lens (2014) History of cholecystectomy History of tonsillectomy Stented coronary artery (2013) PT-OP-B Current Condition Start: 02/28/21 14:22 Freq: Status: Active Protocol: Document 04/21/21 09:09 [facility] (Rec: 04/21/21 09:49 [facility] [id number]) Current Condition Current Functional Impairments (Reported) Functional Limitations- ADL's painful Functional Limitations- Mobility/Gait painful Functional Limitations- Recreation/ slow, paced, sedentary, Hobbies painful all positions PT-OP-C Subjective Start: 02/28/21 14:22 Freq: Status: Active Protocol: Document 06/07/21 09:00 [facility] (Rec: 06/07/21 09:47 [facility] [id number]) OP-PT Subjective Patient Comments Patient Comments Was in hospital with hypertensive episode. Sees national guard member tomorrow, dentist today, and turret lathe operator . Was given rescue medicine in case BP goes above 185. Difficulty with fluid control due to heart failure and kidney disease. Back pain improved after not using Nu-Step machine at [employer] and [employer]; feels seat causes her pain. Chin pain and knee pain better, but lateral right thigh pain, can lay on right side now part of the night. PT-OP-E Functional Tests Start: 02/28/21 14:22 Freq: Status: Active Protocol: Document 03/01/21 09:06 [facility] (Rec: 03/01/21 13:42 [facility] [id number]) Functional Tests Five Times Sit to Stand Test Comments unable due to pain Timed Up and Go (TUG) Comments not done today due to pain PT-OP-F Manual Assessment Start: 02/28/21 14:22 Freq: Status: Active Protocol: Document 03/01/21 09:06 [facility] (Rec: 03/01/21 13:42 [facility] [id number]) Manual Assessments Soft Tissue Assessment Soft Tissue Mobility Assessment tightness right IT band to palpation PT-OP-G Mobility & Gait Start: 02/28/21 14:22 Freq: Status: Active Protocol: Document 03/01/21 09:06 [facility] (Rec: 03/01/21 13:42 [facility] [id number]) OP Mobility Evaluation Transfers Sit to Stand with much effort OP Gait Assessment Gait Gait Assistance Required: Independent Assistive Devices Assistive Device None Gait Deviations General Gait Pattern Antalgic Factors Limiting Gait Function Factors Limiting Gait Function Pain,Respiratory Distress Stair Climbing Evaluation Comments Stair Climbing Comments not done due to pain and deconditioning PT-OP-H Neuro Start: 02/28/21 14:22 Freq: Status: Active Protocol: Document 03/01/21 09:06 [facility] (Rec: 03/01/21 13:42 [facility] [id number]) Sensation Evaluation Gross Sensation Gross Sensation WNL PT-OP-J Posture/Palpation/Skin Start: 02/28/21 14:22 Freq: Status: Active Protocol: Document 03/01/21 09:06 [facility] (Rec: 03/01/21 13:42 [facility] [id number]) Posture Evaluation Position Sitting Head/C-Spine Posture Forward Head T-Spine Posture Increased Kyphosis L-Spine Posture Increased Lordosis Scapula Posture (L) Protracted,(R) Protracted Arm Posture (L) Internally Rotated,(R) Internally Rotated Pelvis Posture Anteriorly Tilted Hip Posture (L) Externally Rotated,(R) Externally Rotated Knee Posture (R) Genu Recurvatum Ankle/Foot Posture (L) Pronated,(R) Pronated Palpation Assessment Location right lateral gastroc Palpation Location right IT band Palpation Findings Soft Tissue Tightness, Tenderness IT band Palpation Location right IT band Palpation Findings Soft Tissue Tightness, Tenderness PT-OP-K Range of Motion Start: 02/28/21 14:22 Freq: Status: Active Protocol: Document 03/01/21 09:06 [facility] (Rec: 03/01/21 13:42 [facility] [id number]) Lumbar Spine Range of Motion Lumbar Spine Active Extension 0 ROM Limitations Pain Comments mod decreased all motions due to pain Hip Goniometric Range of Motion Hip luisa Hip ROM WFL Yes Knee Goniometric Range of Motion Knee luisa Knee ROM WFL Yes Hyper-Extension Active 5 Comments painful movement throughout the range right Ankle and Foot Goniometric Range of Motion Ankle and Foot luisa Ankle/Foot ROM WFL No Dorsiflexion with Knee Extended 0 Ankle and Foot ROM Limitations ROM Limitations Soft Tissue Tightness PT-OP-M Strength Start: 02/28/21 14:22 Freq: Status: Active Protocol: Document 03/01/21 09:06 [facility] (Rec: 03/01/21 13:42 [facility] [id number]) Hip Strength Hip Manual Muscle Testing luisa Flexion (L2) 4- Good- Extension (S1) 3+ Fair+ Abduction 4- Good- Adduction 4- Good- External Rotation 3+ Fair+ Internal Rotation 4- Good- Knee Strength Knee Manual Muscle Testing luisa Flexion (S2) 4 Good Extension (L3) 4 Good PT-OP-Q Treatments Start: 02/28/21 14:22 Freq: Status: Active Protocol: Document 06/07/21 09:00 [facility] (Rec: 06/07/21 09:47 [facility] [id number]) Cardio Equipment Recumbent Stepper (Sci-Fit) Duration (Minutes) 14 Resistance 1.0 Seat Position 12 Gym Equipment Shuttle Recovery Unilateral Squats Resistance 37 Shuttle Recovery Platform Stable Reps/Time 10x2 Bilateral Squats Resistance 75 Shuttle Recovery Platform Stable Reps/Time 10x2 Shuttle Balance chains red, cords loose Details balance and weight shift fwd/ bck with feet staggered Reps/Duration 4 min Manual Therapy Treatment Soft Tissue Mobilization IT band Mobilization Type Myofascial Release,Strumming Intensity/Depth Moderate Body Position Sidelying 1 Body Location luisa lumbar and mid thoracic spine Mobilization Type Myofascial Release,Rolling Intensity/Depth Moderate Body Position Prone PT-OP-R Modalities Start: 02/28/21 14:22 Freq: Status: Active Protocol: Document 06/07/21 09:00 [facility] (Rec: 06/07/21 09:47 [facility] [id number]) Hot Pack/Cold Pack Treatment Hot Pack Location lumbar spine, buttocks Patient Position Sitting Treatment Duration (minutes) 15 Patient Tolerance Good PT-OP-T Assessment and Plan Start: 02/28/21 14:22 Freq: Status: Active Protocol: Document 06/07/21 09:00 [facility] (Rec: 06/07/21 09:47 [facility] [id number]) Physical Therapy Assessment Goals Four Impairment lower extremity functional scale score 38% Short Term Goal (STG) Improve LEFS to at least 50% 05/26/21: goal met, 50% today STG Duration goal met Snf Goal (LTG) Improve LEFS to at least 65% LTG Duration 07/26/21 Three Impairment tightness and tenderness right IT band, decrease PA mobility right tib-fib Nuclear Operator Goal (LTG) Decrease tightness and tenderness right IT band, PA mobility right tib-fib joint WNL for improved right LE movement and function 05/26/21: good goal progress with patient tolerating increased intensity of STM LTG Duration 07/26/21 Two Impairment weakness bilateral LE's right greater than left Short Term Goal (STG) Patient to be independent and compliant to progressive therapeutic exercise program without c/o increase in pain 05/26/21: goal met STG Duration goal met Nuclear Operator Goal (LTG) Patient to demonstrate bilateral LE strength of at least 4/5 throughout LTG Duration 05/30/21 One Impairment pain right LE 7/10 on pain scale Short Term Goal (STG) decrease pain to no greater than 4/10 with usual activities and ADL's , including right sidelying sleeping position 05/26/21: goal progress, intermittant pain but still as high as 7/10 STG Duration 06/25/21 Nuclear Operator Goal (LTG) Patient to report pain no greater than 2/10 right LE with all usual activities, ADL 's and her usual sleep position of right sidelying LTG Duration 07/26/21 Assessment Summary Assessment BP 138/84. Patient feeling better but cautioned that due to medical issues, minimal exercise at this time, will focus on gentle exercise, increased manual treatment until patient sees national guard member and turret lathe operator, and receives further recommendations for PT. Physical Therapy Plan Frequency and Duration Frequency of Treatment 2x/Week Duration of Treatment 8 weeks Plan of Care Start Date 05/26/21 Plan of Care End Date 07/26/21 Therapeutic Interventions Therapeutic Interventions Home Exercise Program,Joint Mobilizations,Manual Therapy, Neuromuscular Re-education, Patient/Caregiver Education, Self-Care/Home Management, Taping,Therapeutic Activities, Therapeutic Exercises Modalities Electric Stimulation,Hot Packs ,Infrared Therapy, Iontophoresis,Ultrasound Next Visit Focus/Plan Next Note Type Treatment Note Next Visit Plan Monitor BP, continue gentle progression of ther ex as patient tolerates, manual therapy and modalities for pain management.
--- NOTE | 2021-06-13 13:27 | PT.OTN ---
Current Diagnoses Pain in unspecified knee (06/13/21) Physical Therapy Treatment Note PT-OP-A Visit Information Start: 02/28/21 14:22 Freq: Status: Active Protocol: Document 06/13/21 09:02 [facility] (Rec: 06/13/21 09:45 [facility] [id number]) Out-Patient Physical Therapy Visit Information Visit Information Visit Type Treatment Note Visit Start Time 09:00 Visit Stop Time 10:00 Total Visit Minutes 60 Visit Number 10 Precautions Precautions Medical History (Updated 01/19 @ 17:21 by Soledad Vick DO) Angioedema Asthma CAD (coronary artery disease) (1979) Coccidioidomycosis (~1962) Dyslipidemia EBV infection (~1962) Elevated coronary artery calcium score 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 Hiatal hernia (~11/22/20) History of recurrent pneumonia History of stent insertion of renal artery Hypertension Left renal artery stenosis (~ 11/22/20) Macular degeneration, age related, nonexudative Osteopenia of femoral neck, bilateral (~02/2019) Paroxysmal atrial fibrillation Parumbilical hernia (~11/22/20 ) Pressure ulcer, buttock, right , unstageable Prinzmetal's angina (1975) Proteus enteritis (~2018) Renal artery atherosclerosis ( 09/22/11) Severe obstructive sleep apnea -hypopnea syndrome (10/22/15) Shingles (2016) Statin intolerance Stenosis of celiac artery (~) Systemic lupus erythematosus Thyroid nodule Surgical History (Reviewed 06/14 @ 14:15 by Jaye Rosado DO) H/O colonoscopy with polypectomy (~04/2020) History of arthroplasty (12/09) History of arthroplasty (01/20) History of cataract removal with insertion of prosthetic lens (2014) History of cholecystectomy History of tonsillectomy Stented coronary artery (2013) PT-OP-B Current Condition Start: 02/28/21 14:22 Freq: Status: Active Protocol: Document 04/21/21 09:09 [facility] (Rec: 04/21/21 09:49 [facility] [id number]) Current Condition Current Functional Impairments (Reported) Functional Limitations- ADL's painful Functional Limitations- Mobility/Gait painful Functional Limitations- Recreation/ slow, paced, sedentary, Hobbies painful all positions PT-OP-C Subjective Start: 02/28/21 14:22 Freq: Status: Active Protocol: Document 06/13/21 09:02 [facility] (Rec: 06/13/21 09:45 [facility] [id number]) OP-PT Subjective Patient Comments Patient Comments Sees medical numerical control operator tomorrow. Claims Correspondence Clerk going to work with medical numerical control operator regarding medication change after sees today. Claims Correspondence Clerk called it malignant hypertensive episodes. Claims Correspondence Clerk said could exercise unless systolic over 150. Reports pain most outside of leg; stabbing needling pain on and off ( patient points to IT band region) PT-OP-E Functional Tests Start: 02/28/21 14:22 Freq: Status: Active Protocol: Document 03/01/21 09:06 [facility] (Rec: 03/01/21 13:42 [facility] [id number]) Functional Tests Five Times Sit to Stand Test Comments unable due to pain Timed Up and Go (TUG) Comments not done today due to pain PT-OP-F Manual Assessment Start: 02/28/21 14:22 Freq: Status: Active Protocol: Document 03/01/21 09:06 [facility] (Rec: 03/01/21 13:42 [facility] [id number]) Manual Assessments Soft Tissue Assessment Soft Tissue Mobility Assessment tightness right IT band to palpation PT-OP-G Mobility & Gait Start: 02/28/21 14:22 Freq: Status: Active Protocol: Document 03/01/21 09:06 [facility] (Rec: 03/01/21 13:42 [facility] [id number]) OP Mobility Evaluation Transfers Sit to Stand with much effort OP Gait Assessment Gait Gait Assistance Required: Independent Assistive Devices Assistive Device None Gait Deviations General Gait Pattern Antalgic Factors Limiting Gait Function Factors Limiting Gait Function Pain,Respiratory Distress Stair Climbing Evaluation Comments Stair Climbing Comments not done due to pain and deconditioning PT-OP-H Neuro Start: 02/28/21 14:22 Freq: Status: Active Protocol: Document 03/01/21 09:06 [facility] (Rec: 03/01/21 13:42 [facility] [id number]) Sensation Evaluation Gross Sensation Gross Sensation WNL PT-OP-J Posture/Palpation/Skin Start: 02/28/21 14:22 Freq: Status: Active Protocol: Document 03/01/21 09:06 [facility] (Rec: 03/01/21 13:42 [facility] [id number]) Posture Evaluation Position Sitting Head/C-Spine Posture Forward Head T-Spine Posture Increased Kyphosis L-Spine Posture Increased Lordosis Scapula Posture (L) Protracted,(R) Protracted Arm Posture (L) Internally Rotated,(R) Internally Rotated Pelvis Posture Anteriorly Tilted Hip Posture (L) Externally Rotated,(R) Externally Rotated Knee Posture (R) Genu Recurvatum Ankle/Foot Posture (L) Pronated,(R) Pronated Palpation Assessment Location right lateral gastroc Palpation Location right IT band Palpation Findings Soft Tissue Tightness, Tenderness IT band Palpation Location right IT band Palpation Findings Soft Tissue Tightness, Tenderness PT-OP-K Range of Motion Start: 02/28/21 14:22 Freq: Status: Active Protocol: Document 03/01/21 09:06 [facility] (Rec: 03/01/21 13:42 [facility] [id number]) Lumbar Spine Range of Motion Lumbar Spine Active Extension 0 ROM Limitations Pain Comments mod decreased all motions due to pain Hip Goniometric Range of Motion Hip luisa Hip ROM WFL Yes Knee Goniometric Range of Motion Knee luisa Knee ROM WFL Yes Hyper-Extension Active 5 Comments painful movement throughout the range right Ankle and Foot Goniometric Range of Motion Ankle and Foot luisa Ankle/Foot ROM WFL No Dorsiflexion with Knee Extended 0 Ankle and Foot ROM Limitations ROM Limitations Soft Tissue Tightness PT-OP-M Strength Start: 02/28/21 14:22 Freq: Status: Active Protocol: Document 03/01/21 09:06 [facility] (Rec: 03/01/21 13:42 [facility] [id number]) Hip Strength Hip Manual Muscle Testing luisa Flexion (L2) 4- Good- Extension (S1) 3+ Fair+ Abduction 4- Good- Adduction 4- Good- External Rotation 3+ Fair+ Internal Rotation 4- Good- Knee Strength Knee Manual Muscle Testing luisa Flexion (S2) 4 Good Extension (L3) 4 Good PT-OP-Q Treatments Start: 02/28/21 14:22 Freq: Status: Active Protocol: Document 06/13/21 09:02 [facility] (Rec: 06/13/21 09:45 [facility] [id number]) Cardio Equipment Recumbent Stepper (Sci-Fit) Duration (Minutes) 15 Resistance 1.0 Seat Position 12 Other 1.5 miles Gym Equipment Shuttle Balance chains red, cords loose Details balance and weight shift fwd/ bck with feet staggered Reps/Duration 4 min PT-OP-R Modalities Start: 02/28/21 14:22 Freq: Status: Active Protocol: Document 06/07/21 09:00 [facility] (Rec: 06/07/21 09:47 [facility] [id number]) Hot Pack/Cold Pack Treatment Hot Pack Location lumbar spine, buttocks Patient Position Sitting Treatment Duration (minutes) 15 Patient Tolerance Good PT-OP-T Assessment and Plan Start: 02/28/21 14:22 Freq: Status: Active Protocol: Document 06/13/21 09:02 [facility] (Rec: 06/13/21 09:45 [facility] [id number]) Physical Therapy Assessment Goals Four Impairment lower extremity functional scale score 38% Short Term Goal (STG) Improve LEFS to at least 50% 05/26/21: goal met, 50% today STG Duration goal met Skilled Nursing Goal (LTG) Improve LEFS to at least 65% LTG Duration 07/26/21 Three Impairment tightness and tenderness right IT band, decrease PA mobility right tib-fib Skilled Nursing Goal (LTG) Decrease tightness and tenderness right IT band, PA mobility right tib-fib joint WNL for improved right LE movement and function 05/26/21: good goal progress with patient tolerating increased intensity of STM LTG Duration 07/26/21 Two Impairment weakness bilateral LE's right greater than left Short Term Goal (STG) Patient to be independent and compliant to progressive therapeutic exercise program without c/o increase in pain 05/26/21: goal met STG Duration goal met Manager Banquet Goal (LTG) Patient to demonstrate bilateral LE strength of at least 4/5 throughout LTG Duration 05/30/21 One Impairment pain right LE 7/10 on pain scale Short Term Goal (STG) decrease pain to no greater than 4/10 with usual activities and ADL's , including right sidelying sleeping position 05/26/21: goal progress, intermittant pain but still as high as 7/10 STG Duration 06/25/21 Manager Banquet Goal (LTG) Patient to report pain no greater than 2/10 right LE with all usual activities, ADL 's and her usual sleep position of right sidelying LTG Duration 07/26/21 Assessment Summary Assessment BP 146/84. pain lateral right LE variable. Improved tolerance for manual treatment to IT band. Physical Therapy Plan Frequency and Duration Frequency of Treatment 2x/Week Duration of Treatment 8 weeks Plan of Care Start Date 05/26/21 Plan of Care End Date 07/26/21 Therapeutic Interventions Therapeutic Interventions Home Exercise Program,Joint Mobilizations,Manual Therapy, Neuromuscular Re-education, Patient/Caregiver Education, Self-Care/Home Management, Taping,Therapeutic Activities, Therapeutic Exercises Modalities Electric Stimulation,Hot Packs ,Infrared Therapy, Iontophoresis,Ultrasound Next Visit Focus/Plan Next Note Type Treatment Note Next Visit Plan evaluate response to PT to IT band. Monitor BP, continue gentle progression of ther ex as patient tolerates, manual therapy and modalities for pain management.
--- NOTE | 2021-06-16 08:01 | PT-OP ANOTE ---
cancelled due to possible Covid exposure
--- NOTE | 2021-06-20 11:48 | PT.OTN ---
Current Diagnoses Pain in unspecified knee (06/20/21) Physical Therapy Treatment Note PT-OP-A Visit Information Start: 02/28/21 14:22 Freq: Status: Active Protocol: Document 06/20/21 09:02 [facility] (Rec: 06/20/21 09:26 [facility] [id number]) Out-Patient Physical Therapy Visit Information Visit Information Visit Type Treatment Note Visit Start Time 09:00 Visit Stop Time 10:00 Total Visit Minutes 60 Visit Number 11 Precautions Precautions Medical History (Updated 01/19 @ 17:21 by Soledad Vick DO) Angioedema Asthma CAD (coronary artery disease) (1979) Coccidioidomycosis (~1962) Dyslipidemia EBV infection (~1962) Elevated coronary artery calcium score 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 Hiatal hernia (~11/22/20) History of recurrent pneumonia History of stent insertion of renal artery Hypertension Left renal artery stenosis (~ 11/22/20) Macular degeneration, age related, nonexudative Osteopenia of femoral neck, bilateral (~02/2019) Paroxysmal atrial fibrillation Parumbilical hernia (~11/22/20 ) Pressure ulcer, buttock, right , unstageable Prinzmetal's angina (1975) Proteus enteritis (~2018) Renal artery atherosclerosis ( 09/22/11) Severe obstructive sleep apnea -hypopnea syndrome (10/22/15) Shingles (2016) Statin intolerance Stenosis of celiac artery (~) Systemic lupus erythematosus Thyroid nodule Surgical History (Reviewed 06/14 @ 14:15 by Jaye Rosado DO) H/O colonoscopy with polypectomy (~04/2020) History of arthroplasty (12/09) History of arthroplasty (01/20) History of cataract removal with insertion of prosthetic lens (2014) History of cholecystectomy History of tonsillectomy Stented coronary artery (2013) PT-OP-B Current Condition Start: 02/28/21 14:22 Freq: Status: Active Protocol: Document 04/21/21 09:09 [facility] (Rec: 04/21/21 09:49 [facility] [id number]) Current Condition Current Functional Impairments (Reported) Functional Limitations- ADL's painful Functional Limitations- Mobility/Gait painful Functional Limitations- Recreation/ slow, paced, sedentary, Hobbies painful all positions PT-OP-C Subjective Start: 02/28/21 14:22 Freq: Status: Active Protocol: Document 06/20/21 09:02 [facility] (Rec: 06/20/21 09:26 [facility] [id number]) OP-PT Subjective Patient Comments Patient Comments Covid test negative. [place] very tired after flu shot over the weekend. Intermittant stabbing pain right lateral thigh less but is now numb and tingling after manual work on it last time. Can lay on her side now. PT-OP-E Functional Tests Start: 02/28/21 14:22 Freq: Status: Active Protocol: Document 03/01/21 09:06 [facility] (Rec: 03/01/21 13:42 [facility] [id number]) Functional Tests Five Times Sit to Stand Test Comments unable due to pain Timed Up and Go (TUG) Comments not done today due to pain PT-OP-F Manual Assessment Start: 02/28/21 14:22 Freq: Status: Active Protocol: Document 03/01/21 09:06 [facility] (Rec: 03/01/21 13:42 [facility] [id number]) Manual Assessments Soft Tissue Assessment Soft Tissue Mobility Assessment tightness right IT band to palpation PT-OP-G Mobility & Gait Start: 02/28/21 14:22 Freq: Status: Active Protocol: Document 03/01/21 09:06 [facility] (Rec: 03/01/21 13:42 [facility] [id number]) OP Mobility Evaluation Transfers Sit to Stand with much effort OP Gait Assessment Gait Gait Assistance Required: Independent Assistive Devices Assistive Device None Gait Deviations General Gait Pattern Antalgic Factors Limiting Gait Function Factors Limiting Gait Function Pain,Respiratory Distress Stair Climbing Evaluation Comments Stair Climbing Comments not done due to pain and deconditioning PT-OP-H Neuro Start: 02/28/21 14:22 Freq: Status: Active Protocol: Document 03/01/21 09:06 [facility] (Rec: 03/01/21 13:42 [facility] [id number]) Sensation Evaluation Gross Sensation Gross Sensation WNL PT-OP-J Posture/Palpation/Skin Start: 02/28/21 14:22 Freq: Status: Active Protocol: Document 03/01/21 09:06 [facility] (Rec: 03/01/21 13:42 [facility] [id number]) Posture Evaluation Position Sitting Head/C-Spine Posture Forward Head T-Spine Posture Increased Kyphosis L-Spine Posture Increased Lordosis Scapula Posture (L) Protracted,(R) Protracted Arm Posture (L) Internally Rotated,(R) Internally Rotated Pelvis Posture Anteriorly Tilted Hip Posture (L) Externally Rotated,(R) Externally Rotated Knee Posture (R) Genu Recurvatum Ankle/Foot Posture (L) Pronated,(R) Pronated Palpation Assessment Location right lateral gastroc Palpation Location right IT band Palpation Findings Soft Tissue Tightness, Tenderness IT band Palpation Location right IT band Palpation Findings Soft Tissue Tightness, Tenderness PT-OP-K Range of Motion Start: 02/28/21 14:22 Freq: Status: Active Protocol: Document 03/01/21 09:06 [facility] (Rec: 03/01/21 13:42 [facility] [id number]) Lumbar Spine Range of Motion Lumbar Spine Active Extension 0 ROM Limitations Pain Comments mod decreased all motions due to pain Hip Goniometric Range of Motion Hip luisa Hip ROM WFL Yes Knee Goniometric Range of Motion Knee luisa Knee ROM WFL Yes Hyper-Extension Active 5 Comments painful movement throughout the range right Ankle and Foot Goniometric Range of Motion Ankle and Foot luisa Ankle/Foot ROM WFL No Dorsiflexion with Knee Extended 0 Ankle and Foot ROM Limitations ROM Limitations Soft Tissue Tightness PT-OP-M Strength Start: 02/28/21 14:22 Freq: Status: Active Protocol: Document 03/01/21 09:06 [facility] (Rec: 03/01/21 13:42 [facility] [id number]) Hip Strength Hip Manual Muscle Testing luisa Flexion (L2) 4- Good- Extension (S1) 3+ Fair+ Abduction 4- Good- Adduction 4- Good- External Rotation 3+ Fair+ Internal Rotation 4- Good- Knee Strength Knee Manual Muscle Testing luisa Flexion (S2) 4 Good Extension (L3) 4 Good PT-OP-Q Treatments Start: 02/28/21 14:22 Freq: Status: Active Protocol: Document 06/20/21 09:02 [facility] (Rec: 06/20/21 09:26 [facility] [id number]) Cardio Equipment Recumbent Stepper (Sci-Fit) Duration (Minutes) 15 Resistance 1.0 Seat Position 12 Other 1.4 miles Gym Equipment Shuttle Recovery Unilateral Squats Resistance 37 Shuttle Recovery Platform Stable Reps/Time 10x2 Bilateral Squats Resistance 75 Shuttle Recovery Platform Stable Reps/Time 10x2 Shuttle Balance chains red, cords loose Details balance and weight shift fwd/ bck with feet staggered Reps/Duration 4 min Manual Therapy Treatment Soft Tissue Mobilization thoracolumbar spine Mobilization Type Myofascial Release,Strumming Intensity/Depth Moderate IT band Mobilization Type Myofascial Release,Strumming Intensity/Depth Moderate Body Position Sidelying PT-OP-R Modalities Start: 02/28/21 14:22 Freq: Status: Active Protocol: Document 06/20/21 11:46 [facility] (Rec: 06/20/21 11:48 [facility] [id number]) Hot Pack/Cold Pack Treatment Hot Pack Location IT band right Patient Position Sidelying Treatment Duration (minutes) 15 Patient Tolerance Good Ultrasound Therapy Treatment IT band Treatment Duration (minutes) 8 Patient Position Sidelying Coupling Medium Ultrasound Gel Frequency Setting (mHz) 2 Mode Setting Continuous Duty Cycle 50% Intensity Setting (w/cm2) 1.4 PT-OP-T Assessment and Plan Start: 02/28/21 14:22 Freq: Status: Active Protocol: Document 06/20/21 09:02 [facility] (Rec: 06/20/21 09:26 [facility] [id number]) Physical Therapy Assessment Goals Four Impairment lower extremity functional scale score 38% Short Term Goal (STG) Improve LEFS to at least 50% 05/26/21: goal met, 50% today STG Duration goal met Alf Goal (LTG) Improve LEFS to at least 65% LTG Duration 07/26/21 Three Impairment tightness and tenderness right IT band, decrease PA mobility right tib-fib [employer] Goal (LTG) Decrease tightness and tenderness right IT band, PA mobility right tib-fib joint WNL for improved right LE movement and function 05/26/21: good goal progress with patient tolerating increased intensity of STM LTG Duration 07/26/21 Two Impairment weakness bilateral LE's right greater than left Short Term Goal (STG) Patient to be independent and compliant to progressive therapeutic exercise program without c/o increase in pain 05/26/21: goal met STG Duration goal met [employer] Goal (LTG) Patient to demonstrate bilateral LE strength of at least 4/5 throughout LTG Duration 05/30/21 One Impairment pain right LE 7/10 on pain scale Short Term Goal (STG) decrease pain to no greater than 4/10 with usual activities and ADL's , including right sidelying sleeping position 05/26/21: goal progress, intermittant pain but still as high as 7/10 STG Duration 06/25/21 [employer] Goal (LTG) Patient to report pain no greater than 2/10 right LE with all usual activities, ADL 's and her usual sleep position of right sidelying LTG Duration 07/26/21 Assessment Summary Assessment BP 114/74. Improved IT band pain after last session, less sharp stabbing pains, but now N/T. Physical Therapy Plan Frequency and Duration Frequency of Treatment 2x/Week Duration of Treatment 8 weeks Plan of Care Start Date 05/26/21 Plan of Care End Date 07/26/21 Therapeutic Interventions Therapeutic Interventions Home Exercise Program,Joint Mobilizations,Manual Therapy, Neuromuscular Re-education, Patient/Caregiver Education, Self-Care/Home Management, Taping,Therapeutic Activities, Therapeutic Exercises Modalities Electric Stimulation,Hot Packs ,Infrared Therapy, Iontophoresis,Ultrasound Next Visit Focus/Plan Next Note Type Treatment Note Next Visit Plan Continue PT with emphasis on treatment of IT band with modalities, manual techniques, ther ex.
--- NOTE | 2021-06-23 10:02 | PT.OTN ---
Current Diagnoses Pain in unspecified knee (06/23/21) Physical Therapy Treatment Note PT-OP-A Visit Information Start: 02/28/21 14:22 Freq: Status: Active Protocol: Document 06/23/21 09:04 [facility] (Rec: 06/23/21 09:46 [facility] [id number]) Out-Patient Physical Therapy Visit Information Visit Information Visit Type Treatment Note Visit Start Time 09:00 Visit Stop Time 10:00 Total Visit Minutes 60 Visit Number 12 Precautions Precautions Medical History (Updated 01/19 @ 17:21 by Soledad Vick DO) Angioedema Asthma CAD (coronary artery disease) (1979) Coccidioidomycosis (~1962) Dyslipidemia EBV infection (~1962) Elevated coronary artery calcium score 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 Hiatal hernia (~11/22/20) History of recurrent pneumonia History of stent insertion of renal artery Hypertension Left renal artery stenosis (~ 11/22/20) Macular degeneration, age related, nonexudative Osteopenia of femoral neck, bilateral (~02/2019) Paroxysmal atrial fibrillation Parumbilical hernia (~11/22/20 ) Pressure ulcer, buttock, right , unstageable Prinzmetal's angina (1975) Proteus enteritis (~2018) Renal artery atherosclerosis ( 09/22/11) Severe obstructive sleep apnea -hypopnea syndrome (10/22/15) Shingles (2016) Statin intolerance Stenosis of celiac artery (~) Systemic lupus erythematosus Thyroid nodule Surgical History (Reviewed 06/14 @ 14:15 by Jaye Rosado DO) H/O colonoscopy with polypectomy (~04/2020) History of arthroplasty (12/09) History of arthroplasty (01/20) History of cataract removal with insertion of prosthetic lens (2014) History of cholecystectomy History of tonsillectomy Stented coronary artery (2013) PT-OP-B Current Condition Start: 02/28/21 14:22 Freq: Status: Active Protocol: Document 04/21/21 09:09 [facility] (Rec: 04/21/21 09:49 [facility] [id number]) Current Condition Current Functional Impairments (Reported) Functional Limitations- ADL's painful Functional Limitations- Mobility/Gait painful Functional Limitations- Recreation/ slow, paced, sedentary, Hobbies painful all positions PT-OP-C Subjective Start: 02/28/21 14:22 Freq: Status: Active Protocol: Document 06/23/21 09:04 [facility] (Rec: 06/23/21 09:46 [facility] [id number]) OP-PT Subjective Patient Comments Patient Comments Sees Dr. 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 Pins and needles in right outer thigh kept her awake for an hour last night. Concerned over [facility] at [facility] and [facility] causing her back pain previosly. Despite discussion with PT, concerned she won't be able to modify position adequately. PT-OP-E Functional Tests Start: 02/28/21 14:22 Freq: Status: Active Protocol: Document 03/01/21 09:06 [facility] (Rec: 03/01/21 13:42 [facility] [id number]) Functional Tests Five Times Sit to Stand Test Comments unable due to pain Timed Up and Go (TUG) Comments not done today due to pain PT-OP-F Manual Assessment Start: 02/28/21 14:22 Freq: Status: Active Protocol: Document 03/01/21 09:06 [facility] (Rec: 03/01/21 13:42 [facility] [id number]) Manual Assessments Soft Tissue Assessment Soft Tissue Mobility Assessment tightness right IT band to palpation PT-OP-G Mobility & Gait Start: 02/28/21 14:22 Freq: Status: Active Protocol: Document 03/01/21 09:06 [facility] (Rec: 03/01/21 13:42 [facility] [id number]) OP Mobility Evaluation Transfers Sit to Stand with much effort OP Gait Assessment Gait Gait Assistance Required: Independent Assistive Devices Assistive Device None Gait Deviations General Gait Pattern Antalgic Factors Limiting Gait Function Factors Limiting Gait Function Pain,Respiratory Distress Stair Climbing Evaluation Comments Stair Climbing Comments not done due to pain and deconditioning PT-OP-H Neuro Start: 02/28/21 14:22 Freq: Status: Active Protocol: Document 03/01/21 09:06 [facility] (Rec: 03/01/21 13:42 [facility] [id number]) Sensation Evaluation Gross Sensation Gross Sensation WNL PT-OP-J Posture/Palpation/Skin Start: 02/28/21 14:22 Freq: Status: Active Protocol: Document 03/01/21 09:06 [facility] (Rec: 03/01/21 13:42 [facility] [id number]) Posture Evaluation Position Sitting Head/C-Spine Posture Forward Head T-Spine Posture Increased Kyphosis L-Spine Posture Increased Lordosis Scapula Posture (L) Protracted,(R) Protracted Arm Posture (L) Internally Rotated,(R) Internally Rotated Pelvis Posture Anteriorly Tilted Hip Posture (L) Externally Rotated,(R) Externally Rotated Knee Posture (R) Genu Recurvatum Ankle/Foot Posture (L) Pronated,(R) Pronated Palpation Assessment Location right lateral gastroc Palpation Location right IT band Palpation Findings Soft Tissue Tightness, Tenderness IT band Palpation Location right IT band Palpation Findings Soft Tissue Tightness, Tenderness PT-OP-K Range of Motion Start: 02/28/21 14:22 Freq: Status: Active Protocol: Document 03/01/21 09:06 [facility] (Rec: 03/01/21 13:42 [facility] [id number]) Lumbar Spine Range of Motion Lumbar Spine Active Extension 0 ROM Limitations Pain Comments mod decreased all motions due to pain Hip Goniometric Range of Motion Hip luisa Hip ROM WFL Yes Knee Goniometric Range of Motion Knee luisa Knee ROM WFL Yes Hyper-Extension Active 5 Comments painful movement throughout the range right Ankle and Foot Goniometric Range of Motion Ankle and Foot luisa Ankle/Foot ROM WFL No Dorsiflexion with Knee Extended 0 Ankle and Foot ROM Limitations ROM Limitations Soft Tissue Tightness PT-OP-M Strength Start: 02/28/21 14:22 Freq: Status: Active Protocol: Document 03/01/21 09:06 [facility] (Rec: 03/01/21 13:42 [facility] [id number]) Hip Strength Hip Manual Muscle Testing luisa Flexion (L2) 4- Good- Extension (S1) 3+ Fair+ Abduction 4- Good- Adduction 4- Good- External Rotation 3+ Fair+ Internal Rotation 4- Good- Knee Strength Knee Manual Muscle Testing luisa Flexion (S2) 4 Good Extension (L3) 4 Good PT-OP-Q Treatments Start: 02/28/21 14:22 Freq: Status: Active Protocol: Document 06/23/21 09:04 [facility] (Rec: 06/23/21 09:46 [facility] [id number]) Cardio Equipment Recumbent Stepper (Sci-Fit) Duration (Minutes) 15 Resistance 1.5 Seat Position 12 Gym Equipment Shuttle Recovery Unilateral Squats Resistance 37 Shuttle Recovery Platform Stable Reps/Time 10x2 Bilateral Squats Resistance 75 Shuttle Recovery Platform Stable Reps/Time 10x2 Shuttle Balance chains red, cords loose Details balance and weight shift fwd/ bck with feet staggered, side to side Reps/Duration 4 min Therapeutic Exercises Standing Exercises sidestepping Reps/Minutes 10'x2 Manual Therapy Treatment Soft Tissue Mobilization thoracolumbar spine Mobilization Type Myofascial Release,Strumming Intensity/Depth Moderate IT band Mobilization Type Myofascial Release,Strumming Intensity/Depth Moderate Body Position Sidelying PT-OP-R Modalities Start: 02/28/21 14:22 Freq: Status: Active Protocol: Document 06/23/21 09:04 [facility] (Rec: 06/23/21 09:46 [facility] [id number]) Hot Pack/Cold Pack Treatment Hot Pack Location IT band right Patient Position Sidelying Treatment Duration (minutes) 15 Patient Tolerance Good Ultrasound Therapy Treatment IT band Treatment Duration (minutes) 8 Patient Position Sidelying Coupling Medium Ultrasound Gel Frequency Setting (mHz) 2 Mode Setting Continuous Duty Cycle 50% Intensity Setting (w/cm2) 1.4 PT-OP-T Assessment and Plan Start: 02/28/21 14:22 Freq: Status: Active Protocol: Document 06/23/21 09:04 [facility] (Rec: 06/23/21 09:46 [facility] [id number]) Physical Therapy Assessment Goals Four Impairment lower extremity functional scale score 38% Short Term Goal (STG) Improve LEFS to at least 50% 05/26/21: goal met, 50% today STG Duration goal met Care Home Goal (LTG) Improve LEFS to at least 65% LTG Duration 07/26/21 Three Impairment tightness and tenderness right IT band, decrease PA mobility right tib-fib [employer] Goal (LTG) Decrease tightness and tenderness right IT band, PA mobility right tib-fib joint WNL for improved right LE movement and function 05/26/21: good goal progress with patient tolerating increased intensity of STM LTG Duration 07/26/21 Two Impairment weakness bilateral LE's right greater than left Short Term Goal (STG) Patient to be independent and compliant to progressive therapeutic exercise program without c/o increase in pain 05/26/21: goal met STG Duration goal met Care Home Goal (LTG) Patient to demonstrate bilateral LE strength of at least 4/5 throughout LTG Duration 07/26/21 One Impairment pain right LE 7/10 on pain scale Short Term Goal (STG) decrease pain to no greater than 4/10 with usual activities and ADL's , including right sidelying sleeping position 05/26/21: goal progress, intermittant pain but still as high as 7/10 STG Duration 06/25/21 Care Home Goal (LTG) Patient to report pain no greater than 2/10 right LE with all usual activities, ADL 's and her usual sleep position of right sidelying LTG Duration 07/26/21 Assessment Summary Assessment BP 120/60 after Sci-Fit. Added sidestepping with band. Proximal IT band now less tight, worked more distal IT band, uncomfortable but patient encouraging to continue with soft tissue work to decrease tightness and pain. Moist heat after manual treatment. Tolerated increased resistance with Sci- Fit. Physical Therapy Plan Frequency and Duration Frequency of Treatment 2x/Week Duration of Treatment 8 weeks Plan of Care Start Date 05/26/21 Plan of Care End Date 07/26/21 Therapeutic Interventions Therapeutic Interventions Home Exercise Program,Joint Mobilizations,Manual Therapy, Neuromuscular Re-education, Patient/Caregiver Education, Self-Care/Home Management, Taping,Therapeutic Activities, Therapeutic Exercises Modalities Electric Stimulation,Hot Packs ,Infrared Therapy, Iontophoresis,Ultrasound Next Visit Focus/Plan Next Note Type Treatment Note Next Visit Plan Continue PT with emphasis on treatment of distal IT band with modalities, manual techniques, ther ex. Progress ther ex as able.
--- NOTE | 2021-06-30 11:58 | PT.OTN ---
Current Diagnoses Pain in unspecified knee (06/30/21) Physical Therapy Treatment Note PT-OP-A Visit Information Start: 02/28/21 14:22 Freq: Status: Active Protocol: Document 06/30/21 09:53 SAK (Rec: 06/30/21 10:31 SAK [id number]) Out-Patient Physical Therapy Visit Information Visit Information Visit Type Treatment Note Visit Start Time 09:47 Visit Stop Time 10:46 Total Visit Minutes 59 Visit Number 13 Precautions Precautions Medical History (Updated 01/19 @ 17:21 by Soledad Vick DO) Angioedema Asthma CAD (coronary artery disease) (1979) Coccidioidomycosis (~1962) Dyslipidemia EBV infection (~1962) Elevated coronary artery calcium score 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 Hiatal hernia (~11/22/20) History of recurrent pneumonia History of stent insertion of renal artery Hypertension Left renal artery stenosis (~ 11/22/20) Macular degeneration, age related, nonexudative Osteopenia of femoral neck, bilateral (~02/2019) Paroxysmal atrial fibrillation Parumbilical hernia (~11/22/20 ) Pressure ulcer, buttock, right , unstageable Prinzmetal's angina (1975) Proteus enteritis (~2018) Renal artery atherosclerosis ( 09/22/11) Severe obstructive sleep apnea -hypopnea syndrome (10/22/15) Shingles (2016) Statin intolerance Stenosis of celiac artery (~) Systemic lupus erythematosus Thyroid nodule Surgical History (Reviewed 06/14 @ 14:15 by Jaye Rosado DO) H/O colonoscopy with polypectomy (~04/2020) History of arthroplasty (12/09) History of arthroplasty (01/20) History of cataract removal with insertion of prosthetic lens (2014) History of cholecystectomy History of tonsillectomy Stented coronary artery (2013) PT-OP-B Current Condition Start: 02/28/21 14:22 Freq: Status: Active Protocol: Document 04/21/21 09:09 BEN (Rec: 04/21/21 09:49 SAK [id number]) Current Condition Current Functional Impairments (Reported) Functional Limitations- ADL's painful Functional Limitations- Mobility/Gait painful Functional Limitations- Recreation/ slow, paced, sedentary, Hobbies painful all positions PT-OP-C Subjective Start: 02/28/21 14:22 Freq: Status: Active Protocol: Document 06/30/21 09:53 SAK (Rec: 06/30/21 10:31 SAK [id number]) OP-PT Subjective Patient Comments Patient Comments Pain intermittant in buttock and lateral thigh but level of pain high when she experiences it. Pain lateral knee and lower leg gone, patient pleased with progress in that area. Improved sleep. PT-OP-E Functional Tests Start: 02/28/21 14:22 Freq: Status: Active Protocol: Document 03/01/21 09:06 SAK (Rec: 03/01/21 13:42 [facility] [id number]) Functional Tests Five Times Sit to Stand Test Comments unable due to pain Timed Up and Go (TUG) Comments not done today due to pain PT-OP-F Manual Assessment Start: 02/28/21 14:22 Freq: Status: Active Protocol: Document 03/01/21 09:06 SAK (Rec: 03/01/21 13:42 [facility] [id number]) Manual Assessments Soft Tissue Assessment Soft Tissue Mobility Assessment tightness right IT band to palpation PT-OP-G Mobility & Gait Start: 02/28/21 14:22 Freq: Status: Active Protocol: Document 03/01/21 09:06 SAK (Rec: 03/01/21 13:42 [facility] [id number]) OP Mobility Evaluation Transfers Sit to Stand with much effort OP Gait Assessment Gait Gait Assistance Required: Independent Assistive Devices Assistive Device None Gait Deviations General Gait Pattern Antalgic Factors Limiting Gait Function Factors Limiting Gait Function Pain,Respiratory Distress Stair Climbing Evaluation Comments Stair Climbing Comments not done due to pain and deconditioning PT-OP-H Neuro Start: 02/28/21 14:22 Freq: Status: Active Protocol: Document 03/01/21 09:06 SAK (Rec: 03/01/21 13:42 SAK [id number]) Sensation Evaluation Gross Sensation Gross Sensation WNL PT-OP-J Posture/Palpation/Skin Start: 02/28/21 14:22 Freq: Status: Active Protocol: Document 03/01/21 09:06 SAK (Rec: 03/01/21 13:42 SAK [id number]) Posture Evaluation Position Sitting Head/C-Spine Posture Forward Head T-Spine Posture Increased Kyphosis L-Spine Posture Increased Lordosis Scapula Posture (L) Protracted,(R) Protracted Arm Posture (L) Internally Rotated,(R) Internally Rotated Pelvis Posture Anteriorly Tilted Hip Posture (L) Externally Rotated,(R) Externally Rotated Knee Posture (R) Genu Recurvatum Ankle/Foot Posture (L) Pronated,(R) Pronated Palpation Assessment Location right lateral gastroc Palpation Location right IT band Palpation Findings Soft Tissue Tightness, Tenderness IT band Palpation Location right IT band Palpation Findings Soft Tissue Tightness, Tenderness PT-OP-K Range of Motion Start: 02/28/21 14:22 Freq: Status: Active Protocol: Document 03/01/21 09:06 [facility] (Rec: 03/01/21 13:42 [facility] [id number]) Lumbar Spine Range of Motion Lumbar Spine Active Extension 0 ROM Limitations Pain Comments mod decreased all motions due to pain Hip Goniometric Range of Motion Hip luisa Hip ROM WFL Yes Knee Goniometric Range of Motion Knee luisa Knee ROM WFL Yes Hyper-Extension Active 5 Comments painful movement throughout the range right Ankle and Foot Goniometric Range of Motion Ankle and Foot luisa Ankle/Foot ROM WFL No Dorsiflexion with Knee Extended 0 Ankle and Foot ROM Limitations ROM Limitations Soft Tissue Tightness PT-OP-M Strength Start: 02/28/21 14:22 Freq: Status: Active Protocol: Document 03/01/21 09:06 [facility] (Rec: 03/01/21 13:42 [facility] [id number]) Hip Strength Hip Manual Muscle Testing luisa Flexion (L2) 4- Good- Extension (S1) 3+ Fair+ Abduction 4- Good- Adduction 4- Good- External Rotation 3+ Fair+ Internal Rotation 4- Good- Knee Strength Knee Manual Muscle Testing luisa Flexion (S2) 4 Good Extension (L3) 4 Good PT-OP-Q Treatments Start: 02/28/21 14:22 Freq: Status: Active Protocol: Document 06/30/21 09:53 [facility] (Rec: 06/30/21 11:58 [facility] [id number]) Cardio Equipment Recumbent Stepper (Sci-Fit) Duration (Minutes) 15 Resistance 1.5 Seat Position 12 Gym Equipment Shuttle Recovery Unilateral Squats Reps/Time not available Bilateral Squats Reps/Time not available Shuttle Balance chains red, cords loose Details balance and weight shift fwd/ bck with feet staggered, side to side Reps/Duration 4 min Therapeutic Exercises Standing Exercises sidestepping Equipment Used L1 TB Reps/Minutes 10'x2 Manual Therapy Treatment Soft Tissue Mobilization right buttock Mobilization Type Myofascial Release,Strumming, Sustained Pressure,Trigger Point Release Body Position Sidelying IT band Mobilization Type Myofascial Release,Strumming Intensity/Depth Moderate Body Position Sidelying PT-OP-R Modalities Start: 02/28/21 14:22 Freq: Status: Active Protocol: Document 06/30/21 09:53 [facility] (Rec: 06/30/21 10:31 [facility] [id number]) Hot Pack/Cold Pack Treatment Hot Pack Location IT band and buttock right Patient Position Sidelying Treatment Duration (minutes) 15 Patient Tolerance Good Ultrasound Therapy Treatment IT band Treatment Duration (minutes) 8 Patient Position Sidelying Coupling Medium Ultrasound Gel Frequency Setting (mHz) 2 Mode Setting Continuous Duty Cycle 50% Intensity Setting (w/cm2) 1.4 PT-OP-T Assessment and Plan Start: 02/28/21 14:22 Freq: Status: Active Protocol: Document 06/30/21 09:53 [facility] (Rec: 06/30/21 10:31 [facility] [id number]) Physical Therapy Assessment Goals Four Impairment lower extremity functional scale score 38% Short Term Goal (STG) Improve LEFS to at least 50% 05/26/21: goal met, 50% today STG Duration goal met Chcf Goal (LTG) Improve LEFS to at least 65% LTG Duration 07/26/21 Three Impairment tightness and tenderness right IT band, decrease PA mobility right tib-fib Alarm Adjuster Goal (LTG) Decrease tightness and tenderness right IT band, PA mobility right tib-fib joint WNL for improved right LE movement and function 05/26/21: good goal progress with patient tolerating increased intensity of STM LTG Duration 07/26/21 Two Impairment weakness bilateral LE's right greater than left Short Term Goal (STG) Patient to be independent and compliant to progressive therapeutic exercise program without c/o increase in pain 05/26/21: goal met STG Duration goal met [facility]cf Goal (LTG) Patient to demonstrate bilateral LE strength of at least 4/5 throughout LTG Duration 07/26/21 One Impairment pain right LE 7/10 on pain scale Short Term Goal (STG) decrease pain to no greater than 4/10 with usual activities and ADL's , including right sidelying sleeping position 05/26/21: goal progress, intermittant pain but still as high as 7/10 STG Duration 06/25/21 Alarm Adjuster Goal (LTG) Patient to report pain no greater than 2/10 right LE with all usual activities, ADL 's and her usual sleep position of right sidelying LTG Duration 07/26/21 Assessment Summary Assessment BP 126/74 after Sci-Fit. Continue to progress with ther ex, manual techniques IT band and buttock today. Patient now able to do 15 min on Sci- Fit. Hasn't gotten any cardiac answers, encouraged patient to contact prevoiusly seen finance consultant. Physical Therapy Plan Frequency and Duration Frequency of Treatment 2x/Week Duration of Treatment 8 weeks Plan of Care Start Date 05/26/21 Plan of Care End Date 07/26/21 Therapeutic Interventions Therapeutic Interventions Home Exercise Program,Joint Mobilizations,Manual Therapy, Neuromuscular Re-education, Patient/Caregiver Education, Self-Care/Home Management, Taping,Therapeutic Activities, Therapeutic Exercises Modalities Electric Stimulation,Hot Packs ,Infrared Therapy, Iontophoresis,Ultrasound Next Visit Focus/Plan Next Note Type Treatment Note Next Visit Plan Continue ther ex progression, modalities and manual treatment IT band and right buttock as indicated. Sidelying clamshells as tolerted.
--- NOTE | 2021-07-05 08:32 | PT.OTN ---
Current Diagnoses Pain in unspecified knee (07/04/21) Physical Therapy Treatment Note PT-OP-A Visit Information Start: 02/28/21 14:22 Freq: Status: Active Protocol: Document 07/04/21 11:17 SAK (Rec: 07/04/21 12:07 [facility] [id number]) Out-Patient Physical Therapy Visit Information Visit Information Visit Type Treatment Note Visit Start Time 11:10 Visit Stop Time 12:08 Total Visit Minutes 58 Visit Number 14 Precautions Precautions Medical History (Updated 01/19 @ 17:21 by Soledad Vick DO) Angioedema Asthma CAD (coronary artery disease) (1979) Coccidioidomycosis (~1962) Dyslipidemia EBV infection (~1962) Elevated coronary artery calcium score 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 Hiatal hernia (~11/22/20) History of recurrent pneumonia History of stent insertion of renal artery Hypertension Left renal artery stenosis (~ 11/22/20) Macular degeneration, age related, nonexudative Osteopenia of femoral neck, bilateral (~02/2019) Paroxysmal atrial fibrillation Parumbilical hernia (~11/22/20 ) Pressure ulcer, buttock, right , unstageable Prinzmetal's angina (1975) Proteus enteritis (~2018) Renal artery atherosclerosis ( 09/22/11) Severe obstructive sleep apnea -hypopnea syndrome (10/22/15) Shingles (2016) Statin intolerance Stenosis of celiac artery (~) Systemic lupus erythematosus Thyroid nodule Surgical History (Reviewed 06/14 @ 14:15 by Jaye Rosado DO) H/O colonoscopy with polypectomy (~04/2020) History of arthroplasty (12/09) History of arthroplasty (01/20) History of cataract removal with insertion of prosthetic lens (2014) History of cholecystectomy History of tonsillectomy Stented coronary artery (2013) PT-OP-B Current Condition Start: 02/28/21 14:22 Freq: Status: Active Protocol: Document 04/21/21 09:09 BEN (Rec: 04/21/21 09:49 [facility] [id number]) Current Condition Current Functional Impairments (Reported) Functional Limitations- ADL's painful Functional Limitations- Mobility/Gait painful Functional Limitations- Recreation/ slow, paced, sedentary, Hobbies painful all positions PT-OP-C Subjective Start: 02/28/21 14:22 Freq: Status: Active Protocol: Document 07/04/21 11:17 SAK (Rec: 07/04/21 12:07 SAK [id number]) OP-PT Subjective Patient Comments Patient Comments Reports pain in thoracic spine and hip the worst today. Hasn't been doing band exercises due to fatigue with them. PT-OP-E Functional Tests Start: 02/28/21 14:22 Freq: Status: Active Protocol: Document 03/01/21 09:06 SAK (Rec: 03/01/21 13:42 [facility] [id number]) Functional Tests Five Times Sit to Stand Test Comments unable due to pain Timed Up and Go (TUG) Comments not done today due to pain PT-OP-F Manual Assessment Start: 02/28/21 14:22 Freq: Status: Active Protocol: Document 03/01/21 09:06 SAK (Rec: 03/01/21 13:42 [facility] [id number]) Manual Assessments Soft Tissue Assessment Soft Tissue Mobility Assessment tightness right IT band to palpation PT-OP-G Mobility & Gait Start: 02/28/21 14:22 Freq: Status: Active Protocol: Document 03/01/21 09:06 [facility] (Rec: 03/01/21 13:42 [facility] [id number]) OP Mobility Evaluation Transfers Sit to Stand with much effort OP Gait Assessment Gait Gait Assistance Required: Independent Assistive Devices Assistive Device None Gait Deviations General Gait Pattern Antalgic Factors Limiting Gait Function Factors Limiting Gait Function Pain,Respiratory Distress Stair Climbing Evaluation Comments Stair Climbing Comments not done due to pain and deconditioning PT-OP-H Neuro Start: 02/28/21 14:22 Freq: Status: Active Protocol: Document 03/01/21 09:06 [facility] (Rec: 03/01/21 13:42 [facility] [id number]) Sensation Evaluation Gross Sensation Gross Sensation WNL PT-OP-J Posture/Palpation/Skin Start: 02/28/21 14:22 Freq: Status: Active Protocol: Document 03/01/21 09:06 SAK (Rec: 03/01/21 13:42 [facility] [id number]) Posture Evaluation Position Sitting Head/C-Spine Posture Forward Head T-Spine Posture Increased Kyphosis L-Spine Posture Increased Lordosis Scapula Posture (L) Protracted,(R) Protracted Arm Posture (L) Internally Rotated,(R) Internally Rotated Pelvis Posture Anteriorly Tilted Hip Posture (L) Externally Rotated,(R) Externally Rotated Knee Posture (R) Genu Recurvatum Ankle/Foot Posture (L) Pronated,(R) Pronated Palpation Assessment Location right lateral gastroc Palpation Location right IT band Palpation Findings Soft Tissue Tightness, Tenderness IT band Palpation Location right IT band Palpation Findings Soft Tissue Tightness, Tenderness PT-OP-K Range of Motion Start: 02/28/21 14:22 Freq: Status: Active Protocol: Document 03/01/21 09:06 [facility] (Rec: 03/01/21 13:42 [facility] [id number]) Lumbar Spine Range of Motion Lumbar Spine Active Extension 0 ROM Limitations Pain Comments mod decreased all motions due to pain Hip Goniometric Range of Motion Hip luisa Hip ROM WFL Yes Knee Goniometric Range of Motion Knee luisa Knee ROM WFL Yes Hyper-Extension Active 5 Comments painful movement throughout the range right Ankle and Foot Goniometric Range of Motion Ankle and Foot luisa Ankle/Foot ROM WFL No Dorsiflexion with Knee Extended 0 Ankle and Foot ROM Limitations ROM Limitations Soft Tissue Tightness PT-OP-M Strength Start: 02/28/21 14:22 Freq: Status: Active Protocol: Document 03/01/21 09:06 [facility] (Rec: 03/01/21 13:42 [facility] [id number]) Hip Strength Hip Manual Muscle Testing luisa Flexion (L2) 4- Good- Extension (S1) 3+ Fair+ Abduction 4- Good- Adduction 4- Good- External Rotation 3+ Fair+ Internal Rotation 4- Good- Knee Strength Knee Manual Muscle Testing luisa Flexion (S2) 4 Good Extension (L3) 4 Good PT-OP-Q Treatments Start: 02/28/21 14:22 Freq: Status: Active Protocol: Document 07/04/21 11:17 [facility] (Rec: 07/04/21 12:07 [facility] [id number]) Cardio Equipment Recumbent Stepper (Sci-Fit) Duration (Minutes) 20 Resistance 1.5 Seat Position 12 Gym Equipment Shuttle Recovery Unilateral Squats Reps/Time not available Bilateral Squats Reps/Time not available Shuttle Balance chains red, cords loose Details balance and weight shift fwd/ bck with feet staggered, side to side Reps/Duration 4 min Therapeutic Exercises Sitting Exercises chin tuck Reps/Minutes 5x5 Comments verbal and manual cues 2 Sitting Exercise Name shoulder shrug and scap squeeze Resistance no resistance Equipment Used ball at bra-line to facil t/s ext Reps/Minutes 5x 1 Sitting Exercise Name shoulder extension Resistance no resistance Equipment Used ball at bra-line to facil t/s ext Manual Therapy Treatment Soft Tissue Mobilization right buttock Mobilization Type Myofascial Release,Strumming, Sustained Pressure,Trigger Point Release Body Position Sidelying IT band Mobilization Type Myofascial Release,Strumming Intensity/Depth Moderate Body Position Sidelying 1 Body Location mid-thoracic spine Self-Care/Home Management Treatment Education Patient Education Body Mechanics,Home Exercise Program,Pain Management, Posture PT-OP-R Modalities Start: 02/28/21 14:22 Freq: Status: Active Protocol: Document 07/04/21 11:17 [facility] (Rec: 07/04/21 12:07 [facility] [id number]) Hot Pack/Cold Pack Treatment Hot Pack Location IT band and buttock right Patient Position Sidelying Treatment Duration (minutes) 15 Patient Tolerance Good PT-OP-T Assessment and Plan Start: 02/28/21 14:22 Freq: Status: Active Protocol: Document 07/04/21 11:17 [facility] (Rec: 07/04/21 12:07 [facility] [id number]) Physical Therapy Assessment Goals Four Impairment lower extremity functional scale score 38% Short Term Goal (STG) Improve LEFS to at least 50% 05/26/21: goal met, 50% today STG Duration goal met Assisted Goal (LTG) Improve LEFS to at least 65% LTG Duration 07/26/21 Three Impairment tightness and tenderness right IT band, decrease PA mobility right tib-fib Pig Casting Machine Operator Goal (LTG) Decrease tightness and tenderness right IT band, PA mobility right tib-fib joint WNL for improved right LE movement and function 05/26/21: good goal progress with patient tolerating increased intensity of STM LTG Duration 07/26/21 Two Impairment weakness bilateral LE's right greater than left Short Term Goal (STG) Patient to be independent and compliant to progressive therapeutic exercise program without c/o increase in pain 05/26/21: goal met STG Duration goal met Pig Casting Machine Operator Goal (LTG) Patient to demonstrate bilateral LE strength of at least 4/5 throughout LTG Duration 07/26/21 One Impairment pain right LE 7/10 on pain scale Short Term Goal (STG) decrease pain to no greater than 4/10 with usual activities and ADL's , including right sidelying sleeping position 05/26/21: goal progress, intermittant pain but still as high as 7/10 STG Duration 06/25/21 Pig Casting Machine Operator Goal (LTG) Patient to report pain no greater than 2/10 right LE with all usual activities, ADL 's and her usual sleep position of right sidelying LTG Duration 07/26/21 Assessment Summary Assessment BP 138/78. Improving endurance to 20 min on Sci-Fit , though poor tolerance and compliance with theraband ex ( changed to no resistance), emphasis on postural alignment , use of ball or rolled towel to facilitate thoracic extension. Decreased pain after treatment. Physical Therapy Plan Frequency and Duration Frequency of Treatment 2x/Week Duration of Treatment 8 weeks Plan of Care Start Date 05/26/21 Plan of Care End Date 07/26/21 Therapeutic Interventions Therapeutic Interventions Home Exercise Program,Joint Mobilizations,Manual Therapy, Neuromuscular Re-education, Patient/Caregiver Education, Self-Care/Home Management, Taping,Therapeutic Activities, Therapeutic Exercises Modalities Electric Stimulation,Hot Packs ,Infrared Therapy, Iontophoresis,Ultrasound Next Visit Focus/Plan Next Note Type Treatment Note Next Visit Plan Continue ther ex progression, modalities and manual treatment IT band and right buttock as indicated. Sidelying clamshells as tolerated.
--- NOTE | 2021-07-12 10:52 | PT.OTN ---
Current Diagnoses Pain in unspecified knee (07/12/21) Physical Therapy Treatment Note PT-OP-A Visit Information Start: 02/28/21 14:22 Freq: Status: Active Protocol: Document 07/12/21 08:11 SAK (Rec: 07/12/21 09:01 SAK [id number]) Out-Patient Physical Therapy Visit Information Visit Information Visit Type Treatment Note Visit Start Time 08:05 Visit Stop Time 09:03 Total Visit Minutes 58 Visit Number 15 Precautions Precautions Medical History (Updated 01/19 @ 17:21 by Soledad Vick DO) Angioedema Asthma CAD (coronary artery disease) (1979) Coccidioidomycosis (~1962) Dyslipidemia EBV infection (~1962) Elevated coronary artery calcium score 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 Hiatal hernia (~11/22/20) History of recurrent pneumonia History of stent insertion of renal artery Hypertension Left renal artery stenosis (~ 11/22/20) Macular degeneration, age related, nonexudative Osteopenia of femoral neck, bilateral (~02/2019) Paroxysmal atrial fibrillation Parumbilical hernia (~11/22/20 ) Pressure ulcer, buttock, right , unstageable Prinzmetal's angina (1975) Proteus enteritis (~2018) Renal artery atherosclerosis ( 09/22/11) Severe obstructive sleep apnea -hypopnea syndrome (10/22/15) Shingles (2016) Statin intolerance Stenosis of celiac artery (~) Systemic lupus erythematosus Thyroid nodule Surgical History (Reviewed 06/14 @ 14:15 by Jaye Rosado DO) H/O colonoscopy with polypectomy (~04/2020) History of arthroplasty (12/09) History of arthroplasty (01/20) History of cataract removal with insertion of prosthetic lens (2014) History of cholecystectomy History of tonsillectomy Stented coronary artery (2013) PT-OP-B Current Condition Start: 02/28/21 14:22 Freq: Status: Active Protocol: Document 04/21/21 09:09 BEN (Rec: 04/21/21 09:49 [facility] [id number]) Current Condition Current Functional Impairments (Reported) Functional Limitations- ADL's painful Functional Limitations- Mobility/Gait painful Functional Limitations- Recreation/ slow, paced, sedentary, Hobbies painful all positions PT-OP-C Subjective Start: 02/28/21 14:22 Freq: Status: Active Protocol: Document 07/12/21 08:11 SAK (Rec: 07/12/21 09:01 [facility] [id number]) OP-PT Subjective Patient Comments Patient Comments Sees urgent care technician Sunday. Agreeable to discharge to independent [facility] after today's PT treatment. PT-OP-E Functional Tests Start: 02/28/21 14:22 Freq: Status: Active Protocol: Document 03/01/21 09:06 SAK (Rec: 03/01/21 13:42 [facility] [id number]) Functional Tests Five Times Sit to Stand Test Comments unable due to pain Timed Up and Go (TUG) Comments not done today due to pain PT-OP-F Manual Assessment Start: 02/28/21 14:22 Freq: Status: Active Protocol: Document 03/01/21 09:06 SAK (Rec: 03/01/21 13:42 [facility] [id number]) Manual Assessments Soft Tissue Assessment Soft Tissue Mobility Assessment tightness right IT band to palpation PT-OP-G Mobility & Gait Start: 02/28/21 14:22 Freq: Status: Active Protocol: Document 03/01/21 09:06 [facility] (Rec: 03/01/21 13:42 [facility] [id number]) OP Mobility Evaluation Transfers Sit to Stand with much effort OP Gait Assessment Gait Gait Assistance Required: Independent Assistive Devices Assistive Device None Gait Deviations General Gait Pattern Antalgic Factors Limiting Gait Function Factors Limiting Gait Function Pain,Respiratory Distress Stair Climbing Evaluation Comments Stair Climbing Comments not done due to pain and deconditioning PT-OP-H Neuro Start: 02/28/21 14:22 Freq: Status: Active Protocol: Document 03/01/21 09:06 [facility] (Rec: 03/01/21 13:42 [facility] [id number]) Sensation Evaluation Gross Sensation Gross Sensation WNL PT-OP-J Posture/Palpation/Skin Start: 02/28/21 14:22 Freq: Status: Active Protocol: Document 03/01/21 09:06 SAK (Rec: 03/01/21 13:42 [facility] [id number]) Posture Evaluation Position Sitting Head/C-Spine Posture Forward Head T-Spine Posture Increased Kyphosis L-Spine Posture Increased Lordosis Scapula Posture (L) Protracted,(R) Protracted Arm Posture (L) Internally Rotated,(R) Internally Rotated Pelvis Posture Anteriorly Tilted Hip Posture (L) Externally Rotated,(R) Externally Rotated Knee Posture (R) Genu Recurvatum Ankle/Foot Posture (L) Pronated,(R) Pronated Palpation Assessment Location right lateral gastroc Palpation Location right IT band Palpation Findings Soft Tissue Tightness, Tenderness IT band Palpation Location right IT band Palpation Findings Soft Tissue Tightness, Tenderness PT-OP-K Range of Motion Start: 02/28/21 14:22 Freq: Status: Active Protocol: Document 03/01/21 09:06 [facility] (Rec: 03/01/21 13:42 [facility] [id number]) Lumbar Spine Range of Motion Lumbar Spine Active Extension 0 ROM Limitations Pain Comments mod decreased all motions due to pain Hip Goniometric Range of Motion Hip luisa Hip ROM WFL Yes Knee Goniometric Range of Motion Knee luisa Knee ROM WFL Yes Hyper-Extension Active 5 Comments painful movement throughout the range right Ankle and Foot Goniometric Range of Motion Ankle and Foot luisa Ankle/Foot ROM WFL No Dorsiflexion with Knee Extended 0 Ankle and Foot ROM Limitations ROM Limitations Soft Tissue Tightness PT-OP-M Strength Start: 02/28/21 14:22 Freq: Status: Active Protocol: Document 03/01/21 09:06 [facility] (Rec: 03/01/21 13:42 [facility] [id number]) Hip Strength Hip Manual Muscle Testing luisa Flexion (L2) 4- Good- Extension (S1) 3+ Fair+ Abduction 4- Good- Adduction 4- Good- External Rotation 3+ Fair+ Internal Rotation 4- Good- Knee Strength Knee Manual Muscle Testing luisa Flexion (S2) 4 Good Extension (L3) 4 Good PT-OP-Q Treatments Start: 02/28/21 14:22 Freq: Status: Active Protocol: Document 07/12/21 08:11 [facility] (Rec: 07/12/21 09:01 [facility] [id number]) Cardio Equipment Recumbent Stepper (Sci-Fit) Duration (Minutes) 20 Resistance 1.5 Seat Position 12 Gym Equipment Shuttle Recovery Unilateral Squats Resistance 37 Shuttle Recovery Platform Stable Bilateral Squats Resistance 75 Shuttle Recovery Platform Stable Shuttle Balance chains red, cords loose Details balance and weight shift fwd/ bck with feet staggered, side to side Reps/Duration 4 min Therapeutic Exercises Sitting Exercises 2 Sitting Exercise Name shoulder shrug and scap squeeze Resistance no resistance Equipment Used ball at bra-line to facil t/s ext Reps/Minutes 5x 1 Sitting Exercise Name shoulder extension Resistance no resistance Equipment Used ball at bra-line to facil t/s ext Standing Exercises sidestepping Equipment Used L1 TB Reps/Minutes 10'x2 Manual Therapy Treatment Soft Tissue Mobilization right buttock Mobilization Type Myofascial Release,Strumming, Sustained Pressure,Trigger Point Release Body Position Sidelying IT band Mobilization Type Myofascial Release,Strumming Intensity/Depth Moderate Body Position Sidelying 1 Body Location mid-thoracic spine Self-Care/Home Management Treatment Education Patient Education Body Mechanics,Home Exercise Program,Pain Management, Posture PT-OP-R Modalities Start: 02/28/21 14:22 Freq: Status: Active Protocol: Document 07/12/21 08:11 BEN (Rec: 07/12/21 09:01 [facility] [id number]) Hot Pack/Cold Pack Treatment Hot Pack Location IT band and buttock right Patient Position Sidelying Treatment Duration (minutes) 15 Patient Tolerance Good Ultrasound Therapy Treatment IT band Treatment Duration (minutes) 8 Patient Position Sidelying Coupling Medium Ultrasound Gel Frequency Setting (mHz) 2 Mode Setting Continuous Duty Cycle 50% Intensity Setting (w/cm2) 1.4 PT-OP-T Assessment and Plan Start: 02/28/21 14:22 Freq: Status: Active Protocol: Document 07/12/21 08:11 BEN (Rec: 07/12/21 09:01 [facility] [id number]) Physical Therapy Assessment Goals Four Impairment lower extremity functional scale score 38% Short Term Goal (STG) Improve LEFS to at least 50% 05/26/21: goal met, 50% today STG Duration goal met [facility] Goal (LTG) Improve LEFS to at least 65% LTG Duration 07/26/21 Three Impairment tightness and tenderness right IT band, decrease PA mobility right tib-fib [facility] Goal (LTG) Decrease tightness and tenderness right IT band, PA mobility right tib-fib joint WNL for improved right LE movement and function 05/26/21: good goal progress with patient tolerating increased intensity of STM LTG Duration 07/26/21 Two Impairment weakness bilateral LE's right greater than left Short Term Goal (STG) Patient to be independent and compliant to progressive therapeutic exercise program without c/o increase in pain 05/26/21: goal met STG Duration goal met Digital Watch Assembler Goal (LTG) Patient to demonstrate bilateral LE strength of at least 4/5 throughout LTG Duration 07/26/21 One Impairment pain right LE 7/10 on pain scale Short Term Goal (STG) decrease pain to no greater than 4/10 with usual activities and ADL's , including right sidelying sleeping position 05/26/21: goal progress, intermittant pain but still as high as 7/10 STG Duration 06/25/21 [facility] Goal (LTG) Patient to report pain no greater than 2/10 right LE with all usual activities, ADL 's and her usual sleep position of right sidelying LTG Duration 07/26/21 Assessment Summary Assessment Plateau in progress, patient independent and compliant to HEP. REady for discharge from PT today. Physical Therapy Plan Discharge Physical Therapy Discharge Reasons Plateau in Progress
--- NOTE | 2021-07-12 10:52 | PT.OPDS ---
Current Diagnoses Pain in unspecified knee (07/12/21) Visit Care Team Role Provider Type Soledad Vick DO Attending Provider Physician Primary Care Provider Referring Provider Specialty: Family Practice Address: [address] [place] [address], [address], [facility] Email: [email or web address] Visit Number Visit Number 15 Discharge Summary PT-OP-B Current Condition Start: 02/28/21 14:22 Freq: Status: Active Protocol: Document 04/21/21 09:09 SAK (Rec: 04/21/21 09:49 SAK [id number]) Current Condition Current Functional Impairments (Reported) Functional Limitations- ADL's painful Functional Limitations- Mobility/Gait painful Functional Limitations- Recreation/ slow, paced, sedentary, Hobbies painful all positions PT-OP-C Subjective Start: 02/28/21 14:22 Freq: Status: Active Protocol: Document 07/12/21 08:11 SAK (Rec: 07/12/21 09:01 SAK [id number]) OP-PT Subjective Patient Comments Patient Comments Sees product safety and standards engineer Sunday. Agreeable to discharge to [facility] after today's PT treatment. PT-OP-E Functional Tests Start: 02/28/21 14:22 Freq: Status: Active Protocol: Document 03/01/21 09:06 SAK (Rec: 03/01/21 13:42 SAK [id number]) Functional Tests Five Times Sit to Stand Test Comments unable due to pain Timed Up and Go (TUG) Comments not done today due to pain PT-OP-F Manual Assessment Start: 02/28/21 14:22 Freq: Status: Active Protocol: Document 03/01/21 09:06 SAK (Rec: 03/01/21 13:42 SAK [id number]) Manual Assessments Soft Tissue Assessment Soft Tissue Mobility Assessment tightness right IT band to palpation PT-OP-G Mobility & Gait Start: 02/28/21 14:22 Freq: Status: Active Protocol: Document 03/01/21 09:06 SAK (Rec: 03/01/21 13:42 SAK [id number]) OP Mobility Evaluation Transfers Sit to Stand with much effort OP Gait Assessment Gait Gait Assistance Required: Independent Assistive Devices Assistive Device None Gait Deviations General Gait Pattern Antalgic Factors Limiting Gait Function Factors Limiting Gait Function Pain,Respiratory Distress Stair Climbing Evaluation Comments Stair Climbing Comments not done due to pain and deconditioning PT-OP-H Neuro Start: 02/28/21 14:22 Freq: Status: Active Protocol: Document 03/01/21 09:06 [facility] (Rec: 03/01/21 13:42 [facility] [id number]) Sensation Evaluation Gross Sensation Gross Sensation WNL PT-OP-J Posture/Palpation/Skin Start: 02/28/21 14:22 Freq: Status: Active Protocol: Document 03/01/21 09:06 [facility] (Rec: 03/01/21 13:42 [facility] [id number]) Posture Evaluation Position Sitting Head/C-Spine Posture Forward Head T-Spine Posture Increased Kyphosis L-Spine Posture Increased Lordosis Scapula Posture (L) Protracted,(R) Protracted Arm Posture (L) Internally Rotated,(R) Internally Rotated Pelvis Posture Anteriorly Tilted Hip Posture (L) Externally Rotated,(R) Externally Rotated Knee Posture (R) Genu Recurvatum Ankle/Foot Posture (L) Pronated,(R) Pronated Palpation Assessment Location right lateral gastroc Palpation Location right IT band Palpation Findings Soft Tissue Tightness, Tenderness IT band Palpation Location right IT band Palpation Findings Soft Tissue Tightness, Tenderness PT-OP-K Range of Motion Start: 02/28/21 14:22 Freq: Status: Active Protocol: Document 03/01/21 09:06 [facility] (Rec: 03/01/21 13:42 [facility] [id number]) Lumbar Spine Range of Motion Lumbar Spine Active Extension 0 ROM Limitations Pain Comments mod decreased all motions due to pain Hip Goniometric Range of Motion Hip luisa Hip ROM WFL Yes Knee Goniometric Range of Motion Knee luisa Knee ROM WFL Yes Hyper-Extension Active 5 Comments painful movement throughout the range right Ankle and Foot Goniometric Range of Motion Ankle and Foot luisa Ankle/Foot ROM WFL No Dorsiflexion with Knee Extended 0 Ankle and Foot ROM Limitations ROM Limitations Soft Tissue Tightness PT-OP-M Strength Start: 02/28/21 14:22 Freq: Status: Active Protocol: Document 03/01/21 09:06 [facility] (Rec: 03/01/21 13:42 [facility] [id number]) Hip Strength Hip Manual Muscle Testing luisa Flexion (L2) 4- Good- Extension (S1) 3+ Fair+ Abduction 4- Good- Adduction 4- Good- External Rotation 3+ Fair+ Internal Rotation 4- Good- Knee Strength Knee Manual Muscle Testing luisa Flexion (S2) 4 Good Extension (L3) 4 Good PT-OP-T Assessment and Plan Start: 02/28/21 14:22 Freq: Status: Active Protocol: Document 07/12/21 08:11 BEN (Rec: 07/12/21 09:01 [facility] [id number]) Physical Therapy Assessment Goals Four Impairment lower extremity functional scale score 38% Short Term Goal (STG) Improve LEFS to at least 50% 05/26/21: goal met, 50% today STG Duration goal met [facility] Goal (LTG) Improve LEFS to at least 65% LTG Duration 07/26/21 Three Impairment tightness and tenderness right IT band, decrease PA mobility right tib-fib [facility] Goal (LTG) Decrease tightness and tenderness right IT band, PA mobility right tib-fib joint WNL for improved right LE movement and function 05/26/21: good goal progress with patient tolerating increased intensity of STM LTG Duration 07/26/21 Two Impairment weakness bilateral LE's right greater than left Short Term Goal (STG) Patient to be independent and compliant to progressive therapeutic exercise program without c/o increase in pain 05/26/21: goal met STG Duration goal met Nursing Home Goal (LTG) Patient to demonstrate bilateral LE strength of at least 4/5 throughout LTG Duration 07/26/21 One Impairment pain right LE 7/10 on pain scale Short Term Goal (STG) decrease pain to no greater than 4/10 with usual activities and ADL's , including right sidelying sleeping position 05/26/21: goal progress, intermittant pain but still as high as 7/10 STG Duration 06/25/21 [facility] Goal (LTG) Patient to report pain no greater than 2/10 right LE with all usual activities, ADL 's and her usual sleep position of right sidelying LTG Duration 07/26/21 Assessment Summary Assessment Plateau in progress, patient independent and compliant to HEP. REady for discharge from PT today. Physical Therapy Plan Discharge Physical Therapy Discharge Reasons Plateau in Progress
== END 2021-10-25 09:52 ==
LOC: PHYS 08:15
PROVIDERS: PCP Family Medicine; Referring Provider Family Medicine; Visit Provider Family Medicine
DX: M25.569 Pain in unspecified knee (principal)
CPT/HCPCS: 97035; 97110; 97140; 97162; 97535

== ENCOUNTER → 2021-07-20 09:11 | Outpatient (CLI) | payer MEDICARE, BC, SELFPAY ==
[2021-06-01 22:21] VITALS: BMI 42.0
[2021-07-20 09:52] LABS: Add Manual Diff / Slide Review NO; Basophils Absolute Auto 0 /uL (0-100); Basophils Percent Auto 0.4 % (0-2); Eosinophils Absolute Auto 100 /uL (0-450); Eosinophils Percent Auto 2.3 % (2-4); Hematocrit 34.3 % (36-46); Hemoglobin 11.4 g/dL (12.0-16.0); Lymphocytes Absolute Auto 600 /uL (1100-4500); Lymphocytes Percent Auto 18.3 % (25-40); Mean Corpuscular HGB Conc 33.3 % (30-36); Mean Corpuscular Hemoglobin 27.8 PG (26-34); Mean Corpuscular Volume 83.7 fL (80-100); Monocytes Absolute Auto 400 /uL (0-900); Monocytes Percent Auto 11.7 % (3-14); Neutrophils Absolute Auto 2300 /uL (1500-7000); Neutrophils Percent Auto 67.3 % (50-75); Platelet Count 187 X10^3/uL (150-400); Red Cell Distribution Width 15.5 % (11.6-14.8); White Blood Cell Count 3.5 X10^3/uL (4.5-11.0)
[2021-07-20 10:12] LABS: Alanine Aminotransferase 15 IU/L (<35); Albumin Globulin Ratio 1.4 (1.0-2.8); Alkaline Phosphatase 70 U/L (38-126); Aspartate Aminotransferase 21 IU/L (14-36); BUN Creatinine Ratio 16.4 (6-22); Blood Urea Nitrogen 19 mg/dL (7-17); Carbon Dioxide 24 mmol/L (22-32); Chloride 107 mmol/L (98-107); Estimated Glomerular Filt Rate 45.8 mL/min (>60); Globulin 2.8 g/dL (1.7-4.1); Glucose 96 mg/dL (80-110); HEMOLYSIS < 15 (0-50); Potassium 4.1 mmol/L (3.4-5.1); Sodium 139 mmol/L (137-145); Total Protein 6.8 g/dL (6.3-8.2)
[2021-07-20 10:46] LABS: Ferritin 76 ng/mL (11-264)
[2021-07-20 10:53] LABS: HEMOLYSIS < 15 (0-50); Total Iron Binding Capacity 284 ug/dL (265-497); Transferrin 216 mg/dL (206-381)
[2021-07-20 11:02] LABS: Iron 19 ug/dL (37-170); Percent Iron Saturation 7 % (15-50)
[2021-07-25 18:03] LABS: Albumin 3.3 g/dL (2.9-4.4); Alpha-1-Globulin 0.3 g/dL (0.0-0.4); Alpha-2-Globulin 0.8 g/dL (0.4-1.0); Gamma Globulin 0.9 g/dL (0.4-1.8); Globulin Total 2.9 g/dL (2.2-3.9); Immunoglobulin A, Serum 160 mg/dL (64-422); Immunoglobulin G,Serum 788 mg/dL (586-1602); Immunoglobulin M, Serum 58 mg/dL (26-217); Protein, Total 6.2 g/dL (6.0-8.5)
[2021-07-27 17:09] LABS: Free Lambda Lt Chains,Serum 23.9
[2021-07-27 17:17] LABS: Free Kappa Lt Chains, Serum 40.7
== END ==
PROVIDERS: PCP Family Medicine; Referring Provider Internal Medicine; Visit Provider Internal Medicine
DX: D47.2 Monoclonal gammopathy (principal); E61.1 Iron deficiency
CPT/HCPCS: 36415; 80053; 82728; 82784; 83540; 83550; 83883; 84155; 84165; 85025; 86140; 86334

== ENCOUNTER → 2021-09-20 09:34 | Outpatient (CLI) | payer MEDICARE, BC, SELFPAY ==
[2021-06-01 22:21] VITALS: BMI 42.0
[2021-09-20 10:32] LABS: Albumin 3.8 g/dL (3.5-5.0); BUN Creatinine Ratio 17.1 (6-22); Blood Urea Nitrogen 18 mg/dL (7-17); Calcium 9.3 mg/dL (8.4-10.2); Carbon Dioxide 28 mmol/L (22-32); Chloride 110 mmol/L (98-107); Estimated Glomerular Filt Rate 51.4 mL/min (>60); Glucose 88 mg/dL (80-110); HEMOLYSIS 24 (0-50); Phosphorous 3.3 mg/dL (2.8-4.1); Potassium 4.9 mmol/L (3.4-5.1); Sodium 139 mmol/L (137-145)
== END ==
PROVIDERS: PCP Family Medicine; Referring Provider Internal Medicine Nephrology; Visit Provider Internal Medicine Nephrology
DX: N18.31 Chronic kidney disease, stage 3a (principal)
CPT/HCPCS: 36415; 80069

== ENCOUNTER 2021-09-20 10:23 | Emergency (ER) | payer MEDICARE, BC, SELFPAY ==
[2021-06-01 22:21] VITALS: BMI 42.0
[2021-09-20] VITALS (15 sets, daily range): BP systolic 168–197; BP diastolic 72–86; PULSE 55–73; RESP 13–38; TEMP 36.4; O2SAT 97–100; BMI 40.7
--- NOTE | 2021-09-20 10:36 | DI.RAD.S_ITS ---
PROCEDURE: XR CHEST 1V INDICATIONS: chest pain TECHNIQUE: One view of the chest was acquired. COMPARISON: [facility], CR, XR CHEST 1V, 06/01/2021, 18:00. FINDINGS: Surgical changes and devices: None. Lungs and pleura: Lungs are clear. No pleural effusions or pneumothorax. Mediastinum: Mediastinal contours appear normal. Heart size is normal. Bones and chest wall: No suspicious bony lesions. Overlying soft tissues appear unremarkable. IMPRESSION: No acute cardiopulmonary disease process. Dictated by: Pauline Adhikari MD, PhD on 09/20/2021 at 10:52 Approved by: Pauline Adhikari MD, PhD on 09/20/2021 at 10:52
--- NOTE | 2021-09-20 11:40 | ED_ITS ---
HPI - Chest Pain General Chief Complaint: Chest Pain Stated Complaint: Sent for lab work/Chest pain Time Seen by Provider: 09/20/21 10:40 Source: patient Mode of arrival: Ambulatory Limitations: no limitations History of Present Illness HPI narrative: Patient is a 71-year-old female with history of coronary artery disease, Prinzmetal angina, paroxysmal atrial fibrillation on Pradaxa, anemia getting IV iron infusions presenting today with 4 days of chest pain and angina. She has a Lobo Arin. Quite multiple episodes of angina she took 9 nitroglycerin 3 at a time throughout the day. She typically does not take that many but she does get quite a few episodes of angina however was significantly bad that day. She was not seen and evaluated due to snow. She has continued to have his episodes of angina the last few days which is atypical for her. She typically lives at a chest pain of 0 but currently is at a chest pain of 2. She does not normally take nitroglycerin daily. She denies any shortness of breath. His really thought that her chest pain was from her IV iron infusion which she just started last week. She does not want to be here in the emergency department. She also took all her medications earlier today. She is followed by Dr. Nguyen with [facility] Cardiology Related Data Home Medications Medication Instructions Recorded Confirmed dabigatran etexilate 150 mg 150 mg BID 01/07/19 08/26/21 capsule (Pradaxa) isosorbide mononitrate 60 mg 60 mg PO BID 03/08/19 08/26/21 tablet,extended release 24 hr ranolazine 500 mg tablet,extended 500 mg PO BID 09/11/19 08/26/21 release,12 hr (Ranexa) clopidogrel 75 mg tablet (Plavix) 75 mg PO DAILY 11/28/19 08/26/21 furosemide 20 mg tablet 20 mg PO DAILY 01/10/21 08/26/21 carvedilol 25 mg tablet 50 mg PO QPM 06/01/21 08/26/21 carvedilol 25 mg tablet (Coreg) 37.5 mg PO QAM 06/01/21 08/26/21 Previous Rx's Medication Instructions Recorded albuterol sulfate 90 mcg/actuation 2 puff INHALATION Q4HP PRN #1 inh 05/23/19 aerosol inhaler (Ventolin HFA) Diovan 160 mg tablet (valsartan) 160 mg PO BID #180 tab NS 06/28/21 Allergies Allergy/AdvReac Type Severity Reaction Status Date / Time benazepril [From Lotensin] Allergy Severe angioadema Verified 09/20/21 10:37 adhesive Allergy Mild Verified 09/20/21 10:37 Sulfa (Sulfonamide Allergy Unknown Verified 09/20/21 10:37 Antibiotics) [SULFA (SULFONAMIDE ANTIBIOTICS)] Haemophilus B polysaccharide AdvReac Intermediate YRS AGO Verified 09/20/21 10:37 conj w CAUSED [From TriHIBit] FEVER, RECENTLY MOUTH SORES Beta-Blockers AdvReac Mild LOW Verified 09/20/21 10:37 (Beta-Adrenergic Bloc TOLERANCE - HR IN 30s - HOSPITALIZED diazepam AdvReac Mild OPPOSITE Verified 09/20/21 10:37 EFFECT, BECAME HYPER/INCOMPLIANT--O.K. WITH VERSED diphtheria,pertussis AdvReac Mild YRS AGO Verified 09/20/21 10:37 (acellular),te CAUSED [From TriHIBit] FEVER, RECENTLY MOUTH SORES pseudoephedrine AdvReac Mild INCREASED Verified 09/20/21 10:37 HEART RATE Review of Systems Review of Systems Narrative: GENERAL: Denies chills, fatigue, malaise, fever, sweats, travel HEENT: Denies sinus pain, ear pain, sore throat, difficulty swallowing, neck pain RESPIRATORY: Denies dyspnea, cough, wheezing, hemoptysis, sputum. CARDIOVASCULAR: See HPI GASTROINTESTINAL: Denies nausea, vomiting, abdominal pain, diarrhea, constipation, melena. : Denies dysuria, frequency, incontinence, hematuria, urinary retention, flank pain. MUSCULOSKELETAL: Denies weakness, joint pain, or bony pain SKIN: No rash, no erythema, no pruritus NEUROLOGIC: Denies weakness, dizziness, headache, numbness, change in speech, confusion PSYCHIATRIC: No concerning psychosocial issues. 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 Hiatal hernia (~11/22/20) History of recurrent pneumonia History of stent insertion of renal artery Hypertension Iron deficiency anemia Left renal artery stenosis (~11/22/20) Macular degeneration, age related, nonexudative Myocardial infarction due to atherothrombotic coronary artery disease Ocular migraine Osteopenia of femoral neck, bilateral (~02/2019) Paroxysmal atrial fibrillation Parumbilical hernia (~11/22/20) Pressure ulcer, buttock, right, unstageable Prinzmetal's angina (1975) Proteus enteritis (~2018) Renal artery atherosclerosis (09/22/11) Severe obstructive sleep apnea-hypopnea syndrome (10/22/15) Shingles (2017) Statin intolerance Stenosis of celiac artery (~11/22/20) Systemic lupus erythematosus Thyroid nodule Surgical History H/O colonoscopy with polypectomy (~04/2020) History of arthroplasty (12/09/12) History of arthroplasty (01/20/13) History of cataract removal with insertion of prosthetic lens (2014) History of cholecystectomy History of tonsillectomy Stented coronary artery (2013) Family History Father Lung cancer Mother Parkinson's disease Breast cancer CAD (coronary artery disease) Social History marital status: household members: friend(s) lives independently: No caregiver/support person: No pets and animals: Yes Smoking Status: Never smoker Smoking Status: Never smoker alcohol intake frequency: holidays/special occasions only Substance Use Type: does not use Exam Initial Vital Signs Initial Vital Signs: Vital Signs Temperature 97.5 F L 09/20/21 10:24 Pulse Rate 69 09/20/21 10:24 Respiratory Rate 14 09/20/21 10:24 Blood Pressure 188/79 H 09/20/21 10:24 Pulse Oximetry 99 09/20/21 10:24 GENERAL: Alert 71-year-old female and in no acute distress. Slightly anxious HEENT: Head atraumatic,EOMI, pupils reactive, face symmetric, moist mucous membranes CARDIOVASCULAR: Regular rate and rhythm without murmurs, rubs or gallops. RESPIRATORY: Breath sounds equal bilaterally, no wheezes rales or rhonchi. ABDOMEN: Soft, nontender. Normoactive bowel sounds all 4 quadrants. No guarding or rebound. EXTREMITIES: Normal range of motion, no clubbing or edema. Neurovascularly intact NEUROLOGICAL: Alert and oriented x4.Normal gait and speech. SKIN: Warm, dry, no laceration, no petechiae, no rashes or lesions. Course Orders Ordered: ED Orders 09/20/21 10:36 XR chest 1V Stat 09/20/21 10:43 EKG-12 Lead Stat 09/20/21 11:25 Complete Blood Count AUTO DIFF Stat Comprehensive Metabolic Panel Stat Lipase Stat Magnesium Stat Partial Thromboplastin Time Stat Prothrombin Time INR Stat Troponin & CK Cardiac Panel Stat Discontinued Medications Nitroglycerin (Nitroglycerin 0.4 Mg Sl Tab) 0.4 mg SL [id number] PRN PRN Reason: Chest Pain Non-Formulary Medication (Nitro) 0.4 mg SL PROTOCOL PRN PRN Reason: Chest Pain Stop: 09/20/21 12:20 Last Admin: 09/20/21 12:10 Dose: 0.4 mg Documented by: BTONER Vital Signs Vital signs: Vital Signs - 8 hr 09/20/21 11:30 09/20/21 11:31 09/20/21 12:00 Pulse Rate 57 L 59 L 55 L Respiratory Rate 13 Blood Pressure 183/78 H Pulse Oximetry 100 100 100 09/20/21 12:01 09/20/21 12:15 09/20/21 12:30 Pulse Rate 55 L 59 L 66 Respiratory Rate 14 38 H Blood Pressure 176/72 H 168/73 H Pulse Oximetry 100 98 99 09/20/21 12:56 09/20/21 13:00 09/20/21 13:30 Pulse Rate 60 59 L 58 L Respiratory Rate 21 23 20 Blood Pressure 197/86 H Pulse Oximetry 100 100 99 09/20/21 14:05 Pulse Rate 65 Respiratory Rate 18 Blood Pressure 177/83 H Pulse Oximetry 97 MDM - Chest Pain Lab Data Result diagrams: 09/20/21 11:25 09/20/21 11:25 Labs: Lab Results 09/20/21 09/20/21 09/20/21 Range/Units 11:25 11:25 11:25 WBC 4.8 (4.5-11.0) X10^3/uL RBC 4.30 (4.0-5.2) X10^6/uL Hgb 11.8 L (12.0-16.0) g/dL Hct 36.2 (36-46) % MCV 84.2 (80-100) fL MCH 27.4 (26-34) PG MCHC 32.5 (30-36) % RDW 15.2 H (11.6-14.8) % Plt Count 213 (150-400) X10^3/uL Neut % (Auto) 70.5 (50-75) % Lymph % (Auto) 20.1 L (25-40) % Green % (Auto) 7.0 (3-14) % Eos % (Auto) 1.8 L (2-4) % Baso % (Auto) 0.6 (0-2) % Neut # (Auto) 3400 (8798-8801) /uL Lymph # (Auto) 1000 L (6043-3687) /uL Green # (Auto) 300 (0-900) /uL Eos # (Auto) 100 (0-450) /uL Baso # (Auto) 0 (0-100) /uL PT 16.4 H (10.1-12.7) SECONDS INR 1.5 H (0.9-1.3) APTT 85 H* D (26.4-36.2) SECONDS Sodium 139 (137-145) mmol/L Potassium 4.4 (3.4-5.1) mmol/L Chloride 109 H (98-107) mmol/L Carbon Dioxide 29 (22-32) mmol/L BUN 17 (7-17) mg/dL Creatinine 1.17 H (0.52-1.04) mg/dL Estimated GFR 45.3 L (>60) mL/min BUN/Creatinine Ratio 14.5 (6-22) Glucose 100 (80-110) mg/dL Calcium 9.1 (8.4-10.2) mg/dL Magnesium 2.0 (1.6-2.3) mg/dL Total Bilirubin 1.0 (0.2-1.3) mg/dL AST 20 (14-36) IU/L ALT 15 (<35) IU/L Alkaline Phosphatase 66 (38-126) U/L Total Creatine Kinase 47 (30-135) U/L CK-MB (CK-2) TNP CK-MB (CK-2) Rel Index TNP Troponin I < 0.012 (0.01-0.034) ng/mL Total Protein 6.8 (6.3-8.2) g/dL Albumin 3.9 (3.5-5.0) g/dL Globulin 2.9 (1.7-4.1) g/dL Albumin/Globulin Ratio 1.3 (1.0-2.8) Lipase 174 (23-300) U/L Imaging Data Chest x-ray: Radiologist's Impression: PROCEDURE:? XR CHEST 1V ? INDICATIONS:? chest pain ? TECHNIQUE:? One view of the chest was acquired.? ? COMPARISON:? [facility], CR, XR CHEST 1V, 06/01/2021, 18:00. ? FINDINGS:? ? Surgical changes and devices:? None.? ? Lungs and pleura:? Lungs are clear.? No pleural effusions or pneumothorax.? ? Mediastinum:? Mediastinal contours appear normal.? Heart size is normal.? ? Bones and chest wall:? No suspicious bony lesions.? Overlying soft tissues appear unremarkable.? ? IMPRESSION:? No acute cardiopulmonary disease process. ? ? Dictated by: Pauline Adhikari MD, PhD on 09/20/2021 at 10:52 ? ? ECG Data Interpretation: Normal sinus rhythm rate 58 HI interval 152 QRS [address] changes MDM Narrative Medical decision making narrative: Patient is having intermittent chest discomfort for last 5 days. No EKG changes negative troponin. She has known angina and stents. She given nitroglycerin here which does seem to help. 2550-Dr. Lawson, cardiology on-call for [facility] has been updated patient's symptoms test results and reviewed chart. At this time he recommends increasing Ranexa to 1000 mg twice daily having close outpatient follow-up. She previously had stress test and full cardiac workup 2 years ago. Discharge Plan Departure Patient Disposition: Home Clinical Impression: Chronic stable angina Instructions: Angina Activity Restrictions/Additional Instructions: *You have been diagnosed with angina *What to do: I spoke with Cardiology at this time will increase your Ranexa. 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 Nguyen today to schedule follow-up or call [phone] *Return to ER if you should have increasing chest pain more than 3 nitroglycerin, shortness of breath or any new, worsening or concerning symptoms Prescriptions: No Action valsartan [Diovan] 160 mg tablet 160 mg PO BID Qty: 180 1RF isosorbide mononitrate 60 mg tablet extended release 24 hr 60 mg PO BID 0RF Label Comments: 120 mg qam, 30 mg qpm PO DAILY; albuterol sulfate [Ventolin HFA] 90 mcg/actuation HFA aerosol inhaler 2 puff inhalation Q4HP PRN (Reason: shortness of breath or wheezing) Qty: 1 0RF ranolazine [Ranexa] 500 mg tablet extended release 12 hr 500 mg PO BID 0RF clopidogrel [Plavix] 75 mg tablet 75 mg PO DAILY 0RF furosemide 20 mg tablet 20 mg PO DAILY 0RF Pradaxa 150 mg Capsule 150 mg BID 0RF carvedilol [Coreg] 25 mg tablet 37.5 mg PO QAM 0RF carvedilol 25 mg tablet 50 mg PO QPM 0RF Referrals: Soledad Vick DO [Primary Care Provider] -
[2021-09-20 11:44] LABS: Add Manual Diff / Slide Review NO; Basophils Absolute Auto 0 /uL (0-100); Basophils Percent Auto 0.6 % (0-2); Eosinophils Absolute Auto 100 /uL (0-450); Eosinophils Percent Auto 1.8 % (2-4); Hematocrit 36.2 % (36-46); Hemoglobin 11.8 g/dL (12.0-16.0); Lymphocytes Absolute Auto 1000 /uL (1100-4500); Lymphocytes Percent Auto 20.1 % (25-40); Mean Corpuscular HGB Conc 32.5 % (30-36); Mean Corpuscular Hemoglobin 27.4 PG (26-34); Mean Corpuscular Volume 84.2 fL (80-100); Monocytes Absolute Auto 300 /uL (0-900); Neutrophils Absolute Auto 3400 /uL (1500-7000); Neutrophils Percent Auto 70.5 % (50-75); Platelet Count 213 X10^3/uL (150-400); Red Cell Distribution Width 15.2 % (11.6-14.8); White Blood Cell Count 4.8 X10^3/uL (4.5-11.0)
[2021-09-20 11:48] LABS: INR 1.5 (0.9-1.3); Prothrombin Time 16.4 SECONDS (10.1-12.7)
[2021-09-20 11:53] LABS: Alanine Aminotransferase 15 IU/L (<35); Albumin 3.9 g/dL (3.5-5.0); Albumin Globulin Ratio 1.3 (1.0-2.8); Alkaline Phosphatase 66 U/L (38-126); Aspartate Aminotransferase 20 IU/L (14-36); BUN Creatinine Ratio 14.5 (6-22); Blood Urea Nitrogen 17 mg/dL (7-17); Calcium 9.1 mg/dL (8.4-10.2); Carbon Dioxide 29 mmol/L (22-32); Chloride 109 mmol/L (98-107); Creatine Kinase 47 U/L (30-135); Estimated Glomerular Filt Rate 45.3 mL/min (>60); Globulin 2.9 g/dL (1.7-4.1); Glucose 100 mg/dL (80-110); HEMOLYSIS < 15 (0-50); Lipase 174 U/L (23-300); Potassium 4.4 mmol/L (3.4-5.1); Sodium 139 mmol/L (137-145); Total Protein 6.8 g/dL (6.3-8.2)
[2021-09-20 11:56] LABS: PTT Partial Thromboplastin Tim 85 SECONDS (26.4-36.2)
[2021-09-20 12:04] LABS: Troponin I < 0.012 ng/mL (0.01-0.034)
[2021-09-20] MEDS: NITRO 0.4 EACH SL (12:10)
--- NOTE | 2021-09-20 13:31 | PC.NURSE ---
pt history of 5 stents.
== END 2021-09-20 14:06 | disposition home or self-care (01) ==
PROVIDERS: Emergency Provider Emergency Medicine; PCP Family Medicine
DX: I20.9 Angina pectoris, unspecified (principal); I10 Essential (primary) hypertension; N18.31 Chronic kidney disease, stage 3a
CPT/HCPCS: 36415; 71045; 80053; 80069; 82550; 83690; 83735; 84484; 85025; 85610; 85730; 93005; 99284

== ENCOUNTER 2021-12-26 14:13 | Emergency (ER) | payer MEDICARE, BC, SELFPAY ==
[2021-12-01 09:39] VITALS: BMI 42.0
[2021-12-26 14:15] VITALS: BP 177/78; PULSE 67; RESP 18; TEMP 36.6; O2SAT 99; BMI 39.6
--- NOTE | 2021-12-26 14:32 | DI.CT.S_ITS ---
PROCEDURE: CT HEAD/BRAIN WO CON INDICATIONS: fall hit head, on pradaxa plavix TECHNIQUE: Noncontrast 4.5 mm thick angled axial sections acquired from the foramen magnum to the vertex, with coronal and sagittal reformats. For radiation dose reduction, the following was used: automated exposure control, adjustment of mA and/or kV according to patient size. COMPARISON: [facility], CT, HEAD WITHOUT CONTRAST, 11/24/2017, 16:26. FINDINGS: Image quality: Excellent. CSF spaces: Basal cisterns are patent. No extra-axial fluid collections. The ventricles are symmetric in size and shape. Brain: No intracranial bleeds or masses. There is cerebral volume loss for age, with resultant ventricular and sulcal prominence. There are periventricular and deep white matter chronic small vessel ischemic changes. There is intracranial internal carotid artery atherosclerosis. Skull and face: Calvarium and visualized facial bones appear intact, without suspicious lesions. Sinuses: Visualized sinuses and mastoids are clear. IMPRESSION: 1. No acute intracranial abnormalities. Dictated by: Girish Quezada M.D. on 12/26/2021 at 14:49 Approved by: Girish Quezada M.D. on 12/26/2021 at 14:51
--- NOTE | 2021-12-26 14:32 | DI.CT.S_ITS ---
PROCEDURE: CT CERVICAL SPINE WO CON INDICATIONS: fall hit head, on pradaxa plavix TECHNIQUE: Noncontrast 3 mm thick sections acquired from the skull base to the T4 level. Sagittal and coronal reformats were then constructed. For radiation dose reduction, the following was used: automated exposure control, adjustment of mA and/or kV according to patient size. COMPARISON: [facility], CR, XR CERVICAL SPINE FLEXION EXTENSION 3 VIEWS, 10/30/2018, 10:57. FINDINGS: Image quality: Excellent. Bones: No fractures or dislocations. There is moderate degenerative disc disease and facet arthropathy in cervical spine. Visualized superior ribs are intact. Soft tissues: Prevertebral soft tissues are normal in thickness. No paravertebral hematomas. No apical pneumothoraces. IMPRESSION: 1. No fracture in cervical spine. 2. Degenerative disc and facet disease. Dictated by: Girish Quezada M.D. on 12/26/2021 at 14:43 Approved by: Girish Quezada M.D. on 12/26/2021 at 14:49
[2021-12-26 14:35] VITALS: PULSE 64; RESP 18; O2SAT 99
[2021-12-26 15:00] VITALS: BP 155/67; PULSE 59; RESP 22; O2SAT 99
--- NOTE | 2021-12-26 15:21 | ED.HEATRA ---
HPI - Head Injury General Chief complaint: Head Injury Stated complaint: Hit head, on 2 blood thinners Time Seen by Provider: 12/26/21 15:01 Source: patient Mode of arrival: Ambulatory Limitations: no limitations History of Present Illness HPI Narrative: This is a 71-year-old female on Plavix and Pradaxa for paroxysmal atrial fibrillation, cardiac stents and renal stent. Patient had a ground level fall she was putting books on a bookshelf fell backwards and hit the right side of her head on the doorframe and the back of her head on a hardwood floor. Patient denies loss of consciousness she does have headache. She denies any new vision changes although she has macular degeneration. She has got some tightness in her right side of her neck and upper shoulders. She has some soreness in shoulders and buttocks but states she was able to stand, ambulate around the house, get the car and ambulate here and does not think she has broken or injured any bones. She denies any nausea or vomiting. No chest pain or shortness of breath. No urinary or fecal incontinence. No new numbness, tingling or weakness of her extremities. Patient does have a history of migraines. She defers anything for pain. She does ask if she can take Soma tonight which is 1 of her prescribed medications to help her sleep. Related Data Home Medications Medication Instructions Recorded Confirmed dabigatran etexilate 150 mg 150 mg BID 01/07/19 12/19/21 capsule (Pradaxa) isosorbide mononitrate 60 mg 60 mg PO BID 03/08/19 12/19/21 tablet,extended release 24 hr clopidogrel 75 mg tablet (Plavix) 75 mg PO DAILY 11/28/19 12/19/21 furosemide 20 mg tablet 20 mg PO DAILY 01/10/21 12/19/21 carvedilol 25 mg tablet 50 mg PO QPM 06/01/21 12/19/21 carvedilol 25 mg tablet (Coreg) 37.5 mg PO QAM 06/01/21 12/19/21 ranolazine 500 mg tablet,extended 1,000 mg PO BID tab 09/20/21 12/19/21 release,12 hr (Ranexa) hydralazine 10 mg tablet 10 mg PO BID tab 10/21/21 12/19/21 Previous Rx's Medication Instructions Recorded albuterol sulfate 90 mcg/actuation 2 puff INHALATION Q4HP PRN #1 inh 05/23/19 aerosol inhaler (Ventolin HFA) carisoprodol 350 mg tablet 350 mg PO BEDTIME PRN #30 tab 10/11/21 Diovan 160 mg tablet (valsartan) 160 mg PO BID #180 tab NS 12/02/21 Allergies Allergy/AdvReac Type Severity Reaction Status Date / Time benazepril [From Lotensin] Allergy Severe angioadema Verified 12/26/21 14:19 adhesive Allergy Mild Verified 12/26/21 14:19 Sulfa (Sulfonamide Allergy Unknown Verified 12/26/21 14:19 Antibiotics) [SULFA (SULFONAMIDE ANTIBIOTICS)] Haemophilus B polysaccharide AdvReac Intermediate YRS AGO Verified 12/26/21 14:19 conj w CAUSED [From TriHIBit] FEVER, RECENTLY MOUTH SORES Beta-Blockers AdvReac Mild LOW Verified 12/26/21 14:19 (Beta-Adrenergic Bloc TOLERANCE - HR IN 30s - HOSPITALIZED diazepam AdvReac Mild OPPOSITE Verified 12/26/21 14:19 EFFECT, BECAME HYPER/INCOMPLIANT--O.K. 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 Hiatal hernia (~11/22/20) History of recurrent pneumonia History of stent insertion of renal artery Hypertension Iron deficiency anemia Left renal artery stenosis (~11/22/20) Macular degeneration, age related, nonexudative Myocardial infarction due to atherothrombotic coronary artery disease Ocular migraine Osteopenia of femoral neck, bilateral (~02/2019) Paroxysmal atrial fibrillation Parumbilical hernia (~11/22/20) Pressure ulcer, buttock, right, unstageable Prinzmetal's angina (1975) Proteus enteritis (~2018) Renal artery atherosclerosis (09/22/11) Severe obstructive sleep apnea-hypopnea syndrome (10/22/15) Shingles (2017) Statin intolerance Stenosis of celiac artery (~11/22/20) Systemic lupus erythematosus Thyroid nodule Surgical History H/O colonoscopy with polypectomy (~04/2020) History of arthroplasty (12/09/12) History of arthroplasty (01/20/13) History of cataract removal with insertion of prosthetic lens (2014) History of cholecystectomy History of tonsillectomy Stented coronary artery (2013) Family History Father Lung cancer Mother Parkinson's disease Breast cancer CAD (coronary artery disease) Social History marital status: household members: friend(s) lives independently: No caregiver/support person: No pets and animals: Yes Smoking Status: Never smoker Smoking Status: Never smoker alcohol intake frequency: holidays/special occasions only Substance Use Type: does not use Exam Narrative Exam Narrative: GEN: Patient appears in mild distress. HEAD: No evidence of trauma, no raccoon/Salas sign. NECK: Nontender, painless range of motion, trachea midline Negative Nexus criteria, there is no midline tenderness, distracting injury, altered mental status, neuro deficit, recent EtOH. EYES: PERRLA, EOMI ENT: External inspection normal, trachea is midline, nares are clear, no septal hematoma, no dental or oral injury, airway is normal and with normal occlusion, No bony tenderness RESP: Chest is nontender and has symmetric movement, no ecchymosis, breath sounds are normal no crackles, wheezes or rales CVS: Heart sounds are normal, no murmur noted, No JVD. ABG/GI: Nontender, soft, normal bowel sounds, no distention, no organomegaly. NEURO: Oriented AOx3, neuro is grossly intact, sensation and motor is normal all 4 extremities moving, cranial nerves II through XII are intact, GCS is 15 PSYCH: Normal mood and affect SKIN: Intact, warm and dry, no crepitus and without decubitus BACK: No CVA tenderness, no vertebral tenderness, no step-off's, no crepitus EXT: Atraumatic, hips are nontender, no pedal edema, normal color and temperature, normal range of motion of extremities with normal tendon exam, 2+ pulses in all four extremities Initial Vital Signs Initial Vital Signs: Vital Signs Temperature 97.9 F 12/26/21 14:15 Pulse Rate 67 12/26/21 14:15 Respiratory Rate 18 12/26/21 14:15 Blood Pressure 177/78 H 12/26/21 14:15 Pulse Oximetry 99 12/26/21 14:[address] Head Rule Age <16 years old: No Patient on blood thinners: Yes Seizure after injury: No Exclusion: Patient meets exclusion criteria GCS < 15 at 2 hr post trauma: No Suspected open or depressed skull fracture: No Any sign of basilar skull fracture (hemotympanum, raccoon eyes, Salas's sign, CSF juventino-/rhinorrhea): No Two or more episodes of vomiting: No Age greater or equal to 65 years: Yes Retrograde amnesia to the event greater or equal to 30 min: No Dangerous Mechanism (pedestrian vs. mv, occupant ejected from mv, fall from >3 ft or > 5 stairs): No Recommendation: Consider CT. The [place] CT Rule cannot rule out need for Imaging. Course Orders Ordered: ED Orders 12/26/21 14:32 CT cervical spine wo con Stat CT head/brain wo con Stat Vital Signs Vital signs: Vital Signs - 8 hr 12/26/21 14:15 12/26/21 14:35 12/26/21 15:00 Temperature 97.9 F Pulse Rate 67 64 59 L Respiratory Rate 18 18 22 Blood Pressure 177/78 H 155/67 H Pulse Oximetry 99 99 99 12/26/21 15:30 Temperature Pulse Rate 63 Respiratory Rate 26 H Blood Pressure 173/71 H Pulse Oximetry 97 MDM - Head Injury Imaging Data CT scan - head: Radiologist's Impression: [address] [address] [address] Scan Report Signed Patient: Laila Nino MR#: [id number] : 1950 Acct:[id number] Age/Sex: 71 / F Date of Service: 12/26/21 Loc: ED Accession Number: [id number] ?? Procedure: CT head/brain wo con Ordering Provider: Jaye Rosado D.O. PROCEDURE:? CT HEAD/BRAIN WO CON ? INDICATIONS:? fall hit head, on pradaxa ? plavix ? TECHNIQUE:? Noncontrast 4.5 mm thick angled axial sections acquired from the foramen magnum to the vertex, with coronal and sagittal reformats.? For radiation dose reduction, the following was used:? automated exposure control, adjustment of mA and/or kV according to patient size.? ? COMPARISON:[facility], CT, HEAD WITHOUT CONTRAST, 11/24/2017, 16:26. ? FINDINGS:? Image quality:? Excellent.? ? CSF spaces:? Basal cisterns are patent.? No extra-axial fluid collections.? The ventricles are symmetric in size and shape.? ? Brain:? No intracranial bleeds or masses.? There is cerebral volume loss for age, with resultant ventricular and sulcal prominence.? There are periventricular and deep white matter chronic small vessel ischemic changes.? There is intracranial internal carotid artery atherosclerosis.? ? Skull and face:? Calvarium and visualized facial bones appear intact, without suspicious lesions.? ? Sinuses:? Visualized sinuses and mastoids are clear.? ? IMPRESSION:? ? 1. No acute intracranial abnormalities. ? ? ? Dictated by: Girish Quezada M.D. on 12/26/2021 at 14:49 ? ? Approved by: Girish Quezada M.D. on 12/26/2021 at 14:51?? CT - cervical spine: Radiologist's Impression: Launch?[place] [address] CT Scan Report Signed Patient: Laila Nino MR#: [id number] : 1950 Acct:[id number] Age/Sex: 71 / F Date of Service: 12/26/21 Loc: ED Accession Number: [id number] ?? Procedure: CT cervical spine wo con Ordering Provider: Jaye Rosado D.O. PROCEDURE:? CT CERVICAL SPINE WO CON ? INDICATIONS:? fall hit head, on pradaxa ? plavix ? TECHNIQUE:? Noncontrast 3 mm thick sections acquired from the skull base to the T4 level.? Sagittal and coronal reformats were then constructed.? For radiation dose reduction, the following was used:? automated exposure control, adjustment of mA and/or kV according to patient size.? ? COMPARISON:? [facility], CR, XR CERVICAL SPINE FLEXION EXTENSION 3 VIEWS, 10/30/2018, 10:57. ? FINDINGS:? Image quality:? Excellent.? ? Bones:? No fractures or dislocations.? There is moderate degenerative disc disease and facet arthropathy in cervical spine.? Visualized superior ribs are intact.? ? Soft tissues:? Prevertebral soft tissues are normal in thickness.? No paravertebral hematomas.? No apical pneumothoraces.? ? ? IMPRESSION:? ? 1. No fracture in cervical spine. 2. Degenerative disc and facet disease.? Dictated by: Girish Quezada M.D. on 12/26/2021 at 14:43 ? ? Approved by: Girish Quezada M.D. on 12/26/2021 at 14:49?? MDM Narrative Medical decision making narrative: This is a 71-year-old female with ground level fall on Pradaxa and Plavix secondary to coronary artery disease, stents and atrial fibrillation. Patient did not have loss of consciousness but has quite a bit a headache. She feels like there is a dent in her head. Patient is high risk so had head CT she has some neck pain although not midline so C-spine was included these are both negative. Discussed with patient she has headache but defers anything for pain she does ask if she can take Soma tonight which is 1 of her normal prescription medications we discussed that she can. Return precautions discussed with patient as well as her sister at bedside. Discharge Plan Departure Patient Disposition: Home Clinical Impression: Head injury, Headache Instructions: DI for Closed Head Injury Activity Restrictions/Additional Instructions: Your imaging today does not show any signs of bleed or injury to your brain or neck. You may take your home medications prescribed including your Soma. Moist heat, hot packs for warm showers or baths may be helpful. Your muscles will likely get tighter over the next 1-2 days and then begin to improve. Please return for rapidly worsening headaches, sudden vision changes, passing out, persistent vomiting, new numbness, tingling or weakness, confusion or altered mental status or other new or concerning symptoms. Prescriptions: No Action ranolazine [Ranexa] 500 mg tablet extended release 12 hr 1,000 mg PO BID 0RF carisoprodol 350 mg tablet 350 mg PO BEDTIME PRN (Reason: muscle pain) Qty: 30 1RF valsartan [Diovan] 160 mg tablet 160 mg PO BID Qty: 180 1RF isosorbide mononitrate 60 mg tablet extended release 24 hr 60 mg PO BID 0RF Label Comments: 120 mg qam, 30 mg qpm PO DAILY; hydralazine 10 mg tablet 10 mg PO BID 0RF albuterol sulfate [Ventolin HFA] 90 mcg/actuation HFA aerosol inhaler 2 puff inhalation Q4HP PRN (Reason: shortness of breath or wheezing) Qty: 1 0RF clopidogrel [Plavix] 75 mg tablet 75 mg PO DAILY 0RF furosemide 20 mg tablet 20 mg PO DAILY 0RF Pradaxa 150 mg Capsule 150 mg BID 0RF carvedilol [Coreg] 25 mg tablet 37.5 mg PO QAM 0RF carvedilol 25 mg tablet 50 mg PO QPM 0RF Referrals: Soledad Vick DO [Primary Care Provider] -
[2021-12-26 15:30] VITALS: BP 173/71; PULSE 63; RESP 26; O2SAT 97
== END 2021-12-26 16:00 | disposition home or self-care (01) ==
PROVIDERS: Emergency Provider Emergency Medicine; PCP Family Medicine
DX: S09.90XA Unspecified injury of head, initial encounter (principal); M54.2 Cervicalgia; R51.9 Headache, unspecified; W18.30XA Fall on same level, unspecified, initial encounter; Z79.01 Long term (current) use of anticoagulants
CPT/HCPCS: 70450; 72125; 99283; 99284

== ENCOUNTER 2022-05-10 01:06 | Inpatient (IN) | payer MEDICARE, BC, SELFPAY ==
[2022-05-02 09:39] VITALS: BMI 42.0
[2022-05-10] VITALS (40 sets, daily range): BP systolic 115–217; BP diastolic 40–100; PULSE 58–77; RESP 2–22; TEMP 36–36.8; O2SAT 97–100; BMI 39.9; BMI 42.5
--- NOTE | 2022-05-10 01:25 | DI.RAD.S_ITS ---
PROCEDURE: XR CHEST 1V INDICATIONS: chest pain TECHNIQUE: One view of the chest was acquired. COMPARISON: [facility], CR, XR CHEST 1V, 09/20/2021, 10:38. FINDINGS: Surgical changes and devices: None. Lungs and pleura: Medial lung apices are partially obscured by patient's neck soft tissues. No pleural effusions or definite pneumothorax. Mediastinum: Mediastinal contours appear normal. Heart size is normal. Bones and chest wall: No suspicious bony lesions. Overlying soft tissues appear unremarkable. IMPRESSION: 1. No definite acute cardiopulmonary disease. Dictated by: Federico Broderick M.D. on 05/10/2022 at 2:20 Approved by: Federico Broderick M.D. on 05/10/2022 at 2:21
--- NOTE | 2022-05-10 01:32 | ED.BACK ---
HPI - Back Pain/Injury General Chief Complaint: Back Pain/Injury Stated Complaint: pain in shoulder blades/ heart pt Time Seen by Provider: 05/10/22 01:18 Source: patient History of Present Illness HPI Narrative: Patient here for interscapular sharp pain 05/03. Occurred at 7:00 p.m. tonight. History of similar discomfort with angina as well as PR in the past. No diaphoresis no dyspnea no syncope. No numbness or tingling or weakness to the limbs. Patient in no distress. Blood pressure noted here. Is higher than her baseline according to patient. Denies any chest pain. Patient patient sees [facility] Re[facility] Related Data Home Medications Medication Instructions Recorded Confirmed isosorbide mononitrate 60 mg 60 mg PO BID 03/08/19 05/10/22 tablet,extended release 24 hr clopidogrel 75 mg tablet (Plavix) 75 mg PO DAILY 11/28/19 05/10/22 furosemide 20 mg tablet 20 mg PO DAILY 01/10/21 05/10/22 carvedilol 25 mg tablet 50 mg PO QPM 06/01/21 05/10/22 carvedilol 25 mg tablet (Coreg) 37.5 mg PO QAM 06/01/21 05/10/22 ranolazine 500 mg tablet,extended 500 mg PO BID 09/20/21 05/10/22 release,12 hr (Ranexa) hydralazine 10 mg tablet 40 mg PO BID 10/21/21 05/10/22 apixaban 5 mg tablet (Eliquis) 5 mg PO BID 03/23/22 05/10/22 ResMed AirCurve 04/20/22 04/20/22 Previous Rx's Medication Instructions Recorded albuterol sulfate 90 mcg/actuation 2 puff inhalation Q4HP PRN 05/23/19 aerosol inhaler (Ventolin HFA) shortness of breath or wheezing #1 inh Diovan 160 mg tablet (valsartan) 160 mg PO BID #180 tabs 12/02/21 Allergies Allergy/AdvReac Type Severity Reaction Status Date / Time benazepril [From Lotensin] Allergy Severe angioadema Verified 05/10/22 01:25 adhesive Allergy Mild Verified 05/10/22 01:25 Sulfa (Sulfonamide Allergy Unknown Verified 05/10/22 01:25 Antibiotics) [SULFA (SULFONAMIDE ANTIBIOTICS)] Haemophilus B polysaccharide AdvReac Intermediate YRS AGO Verified 05/10/22 01:25 conj w CAUSED [From TriHIBit] FEVER, RECENTLY MOUTH SORES Beta-Blockers AdvReac Mild LOW Verified 05/10/22 01:25 (Beta-Adrenergic Bloc TOLERANCE - HR IN 30s - HOSPITALIZED diazepam AdvReac Mild OPPOSITE Verified 05/10/22 01:25 EFFECT, BECAME HYPER/INCOMPLIANT--O.K. WITH VERSED diphtheria,pertussis AdvReac Mild YRS AGO Verified 05/10/22 01:25 (acellular),te CAUSED [From TriHIBit] FEVER, RECENTLY MOUTH SORES pseudoephedrine AdvReac Mild INCREASED Verified 05/10/22 01:25 HEART RATE Review of Systems Review of Systems Narrative: GENERAL: Denies chills, fatigue, malaise, fever, sweats. HEENT: Denies sinus pain, ear pain, sore throat RESPIRATORY: Denies dyspnea, cough CARDIOVASCULAR: Denies chest pain, palpitations GASTROINTESTINAL: Denies nausea, vomiting, abdominal pain : Denies dysuria, frequency, hematuria MUSCULOSKELETAL: denies muscle or bony pain, positive for back pain SKIN: Denies rash, skin lesions NEUROLOGIC: Denies weakness, numbness ROS Unobtainable: All systems reviewed & are unremarkable except as noted in HPI and below 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 Hiatal hernia (~11/22/20) History of recurrent pneumonia History of stent insertion of renal artery Hypertension Iron deficiency anemia Left renal artery stenosis (~11/22/20) Macular degeneration, age related, nonexudative Myocardial infarction due to atherothrombotic coronary artery disease Ocular migraine Osteopenia of femoral neck, bilateral (~02/2019) Paroxysmal atrial fibrillation Parumbilical hernia (~11/22/20) Pressure ulcer, buttock, right, unstageable Prinzmetal's angina (1975) Proteus enteritis (~2018) Renal artery atherosclerosis (09/22/11) Severe obstructive sleep apnea-hypopnea syndrome (10/22/15) Shinmichelle (2017) Statin intolerance Stenosis of celiac artery (~11/22/20) Systemic lupus erythematosus Thyroid nodule Surgical History H/O colonoscopy with polypectomy (~04/2020) History of arthroplasty (12/09/12) History of arthroplasty (01/20/13) History of cataract removal with insertion of prosthetic lens (2014) History of cholecystectomy History of tonsillectomy Stented coronary artery (2013) Family History Father Lung cancer Mother Parkinson's disease Breast cancer CAD (coronary artery disease) Social History marital status: household members: friend(s) lives independently: No caregiver/support person: No pets and animals: Yes Smoking Status: Never smoker Smoking Status: Never smoker alcohol intake frequency: holidays/special occasions only Substance Use Type: does not use Exam Narrative Exam Narrative: GENERAL: in no distress, not toxic not dyspneic HEAD: Normocephalic. EYES: Pupils equal round No scleral icterus. ENT: Mucous membranes moist. NECK: Trachea midline. CARDIOVASCULAR: Regular rate and rhythm without murmurs RESPIRATORY: Clear to auscultation. Breath sounds equal bilaterally. No wheezes, rales, or rhonchi. GASTROINTESTINAL: Abdomen soft, non-tender EXTREMITIES: No gross deformities. BACK: No flank tenderness. NEURO: AOx4. SKIN: Warm and dry PSYCH: Not anxious, is cooperative Initial Vital Signs Initial Vital Signs: Vital Signs Pulse Rate 63 05/10/22 01:16 Respiratory Rate 14 05/10/22 01:16 Pulse Oximetry 99 05/10/22 01:16 Course Course Course Narrative: No new issues during course of stay Decision to Admit Date: 05/10/22 Decision to Admit time: 04:13 Orders Ordered: ED Orders 05/10/22 01:15 Complete Blood Count AUTO DIFF Stat Comprehensive Metabolic Panel Stat D Dimer Stat Lipase Stat Magnesium Stat Partial Thromboplastin Time Stat Prothrombin Time INR Stat Troponin & CK Cardiac Panel Stat 05/10/22 01:25 XR chest 1V Stat EKG-12 Lead Stat 05/10/22 02:04 CT angio chest PE protocol Stat 05/10/22 02:30 COVID19 -Nasal RAPID/Pre-Proc Urgent 05/10/22 03:57 Troponin I Stat Acetaminophen (Acetaminophen 325 Mg Tablet) 650 mg PO Q6HR PRN PRN Reason: Fever/Mild Pain (1-3) Last Admin: 05/10/22 06:30 Dose: 650 mg Documented By: TALIA Apixaban (Apixaban 5 Mg Tablet) 5 mg PO BID HEVER Carisoprodol (Carisoprodol 350 Mg Tablet) 350 mg PO BEDTIME PRN PRN Reason: muscle pain Carvedilol (Carvedilol 12.5 Mg Tablet) 50 mg PO BEDTIME HEVER Carvedilol (Carvedilol 12.5 Mg Tablet) 37.5 mg PO DAILY [facility] Clopidogrel Bisulfate (Clopidogrel 75 Mg Tablet) 75 mg PO DAILY [facility] Furosemide (Furosemide 20 Mg Tablet) 20 mg PO DAILY [facility] Hydralazine HCl (Hydralazine 10 Mg Tablet) 40 mg PO BID [facility] Isosorbide Mononitrate (Isosorbide Mononitrate Er 30 Mg Tablet) 60 mg PO BID [facility] Nitroglycerin (Nitroglycerin 0.4 Mg Sl Tab) 0.4 mg SL [id number] PRN PRN Reason: Chest Pain Ondansetron HCl (Ondansetron 4 Mg Odt) 4 mg PO Q8HR PRN PRN Reason: Nausea And Vomiting Ranolazine (Ranolazine 500 Mg Tab.Er.12h) 1,000 mg PO BID [facility] Sennosides (Sennosides 8.6 Mg Tablet) 17.2 mg PO BEDTIME [facility] Valsartan (Valsartan 80 Mg Tablet) 160 mg PO BID HEVER Discontinued Medications Carvedilol (Carvedilol 12.5 Mg Tablet) 25 mg PO NOW ONE Stop: 05/10/22 03:56 Last Admin: 05/10/22 04:09 Dose: 25 mg Documented By: YAMILA Hydralazine HCl (Hydralazine 20 Mg/Ml Vial) 10 mg IV NOW ONE Stop: 05/10/22 01:33 Last Admin: 05/10/22 01:41 Dose: 10 mg Documented By: YAMILA Hydralazine HCl (Hydralazine 20 Mg/Ml Vial) 10 mg IV NOW ONE Stop: 05/10/22 02:37 Last Admin: 05/10/22 02:56 Dose: 10 mg Documented By: LISA Hydromorphone HCl (Hydromorphone 0.5 Mg Inj) 0.5 mg IV NOW ONE Stop: 05/10/22 06:49 Sodium Chloride (Normal Saline 0.9%) 500 mls @ 1,000 mls/hr IV BOLUS ONE Stop: 05/10/22 02:33 Last Infusion: 05/10/22 04:09 Dose: 0 mls/hr Documented By: Admin: 05/10/22 02:08 Dose: 1,000 mls/hr Documented By: LISA Morphine Sulfate (Morphine 2 Mg/Ml Inj) 2 mg IV Q5MIN PRN PRN Reason: Chest Pain Nitroglycerin (Nitroglycerin Oint 1 Inch/Gm Oint...G.) 1 inch TOP NOW ONE Stop: 05/10/22 02:57 Last Admin: 05/10/22 03:03 Dose: 1 inch Documented By: LISA Reevaluation(s) Reevaluation #1: Reviewed with patient results. Blood pressure is improving. Patient agrees for admit. Blood pressure 164/72. No chest pain Time: 04:13 Consultations Consultation #1: Reviewed with hospitalist Shanta Huertas, she will admit patient Time: 04:13 Vital Signs Vital signs: Vital Signs - 8 hr 05/10/22 01:20 05/10/22 01:16 05/10/22 01:19 Temperature 98 F Pulse Rate 58 L 63 64 Respiratory Rate 20 14 16 Blood Pressure 192/67 H Pulse Oximetry 98 99 99 Oxygen Delivery Method Room Air 05/10/22 01:19 05/10/22 01:20 05/10/22 01:20 Temperature Pulse Rate 61 Respiratory Rate 16 Blood Pressure 211/94 H 192/67 H Pulse Oximetry 99 Oxygen Delivery Method 05/10/22 01:30 05/10/22 01:41 05/10/22 01:46 Temperature Pulse Rate 62 60 Respiratory Rate 2 L Blood Pressure 192/67 H 199/100 H Pulse Oximetry 100 Oxygen Delivery Method 05/10/22 01:46 05/10/22 02:00 05/10/22 02:00 Temperature Pulse Rate 59 L 60 Respiratory Rate 20 20 Blood Pressure 178/82 H Pulse Oximetry 99 99 Oxygen Delivery Method 05/10/22 02:15 05/10/22 02:15 05/10/22 02:56 Temperature Pulse Rate 64 Respiratory Rate 19 Blood Pressure 173/75 H 217/93 H Pulse Oximetry 99 Oxygen Delivery Method 05/10/22 03:03 05/10/22 04:08 05/10/22 04:09 Temperature Pulse Rate 77 Respiratory Rate Blood Pressure 214/79 H 164/72 H 164/72 H Pulse Oximetry Oxygen Delivery Method 05/10/22 02:30 05/10/22 02:31 05/10/22 02:31 Temperature Pulse Rate 63 67 Respiratory Rate 15 22 Blood Pressure 200/91 H Pulse Oximetry 99 99 Oxygen Delivery Method 05/10/22 02:53 05/10/22 02:53 05/10/22 03:00 Temperature Pulse Rate 73 68 Respiratory Rate 14 15 Blood Pressure 217/92 H Pulse Oximetry 99 99 Oxygen Delivery Method 05/10/22 03:02 05/10/22 03:02 05/10/22 03:15 Temperature Pulse Rate 69 67 Respiratory Rate 17 12 Blood Pressure 214/88 H Pulse Oximetry 99 98 Oxygen Delivery Method 05/10/22 03:15 05/10/22 03:30 05/10/22 03:30 Temperature Pulse Rate 66 Respiratory Rate 15 Blood Pressure 187/77 H 178/79 H Pulse Oximetry 98 Oxygen Delivery Method 05/10/22 04:00 05/10/22 04:01 05/10/22 04:01 Temperature Pulse Rate 68 66 Respiratory Rate Blood Pressure 164/72 H Pulse Oximetry 97 97 Oxygen Delivery Method MDM - Back Pain/Injury Differential Diagnosis Differential diagnosis: Likely thoracic back pain, AAA, discitis and other (Atypical chest pain/dissection/aneurysm) Lab Data Result diagrams: 05/10/22 01:15 05/10/22 01:15 Labs: Lab Results 05/10/22 05/10/22 05/10/22 Range/Units 01:15 01:15 01:15 WBC 5.5 (4.5-11.0) X10^3/uL RBC 4.07 (4.0-5.2) X10^6/uL Hgb 11.5 L (12.0-16.0) g/dL Hct 34.2 L (36-46) % MCV 84.2 (80-100) fL MCH 28.2 (26-34) PG MCHC 33.5 (30-36) % RDW 14.6 (11.6-14.8) % Plt Count 224 (150-400) X10^3/uL Neut % (Auto) 68.7 (50-75) % Lymph % (Auto) 19.6 L (25-40) % Donley % (Auto) 9.4 (3-14) % Eos % (Auto) 1.8 L (2-4) % Baso % (Auto) 0.5 (0-2) % Neut # (Auto) 3800 (2646-7765) /uL Lymph # (Auto) 1100 (1388-0074) /uL Donley # (Auto) 500 (0-900) /uL Eos # (Auto) 100 (0-450) /uL Baso # (Auto) 0 (0-100) /uL PT 14.7 H (10.1-12.7) SECONDS INR 1.3 (0.9-1.3) APTT 43 H (26-36) SECONDS D-Dimer (<500) ng/ml Sodium 138 (137-145) mmol/L Potassium 4.2 (3.4-5.1) mmol/L Chloride 106 (98-107) mmol/L Carbon Dioxide 25 (22-32) mmol/L BUN 24 H (7-17) mg/dL Creatinine 1.36 H (0.52-1.04) mg/dL Estimated GFR 41 L (>60) mL/min BUN/Creatinine Ratio 17.6 (6-22) Glucose 102 (80-110) mg/dL Calcium 8.6 (8.4-10.2) mg/dL Magnesium 2.1 (1.6-2.3) mg/dL Total Bilirubin 1.0 (0.2-1.3) mg/dL AST 20 (14-36) IU/L ALT 17 (<35) IU/L Alkaline Phosphatase 72 (38-126) U/L Total Creatine Kinase 59 (30-135) U/L CK-MB (CK-2) TNP CK-MB (CK-2) Rel Index TNP Troponin I < 0.012 (0.01-0.034) ng/mL NT-Pro-B Natriuret Pep (<125) pg/mL Total Protein 6.8 (6.3-8.2) g/dL Albumin 4.0 (3.5-5.0) g/dL Globulin 2.8 (1.7-4.1) g/dL Albumin/Globulin Ratio 1.4 (1.0-2.8) Lipase 217 (23-300) U/L SARS-CoV-2 (PCR) (Negative) 05/10/22 05/10/22 05/10/22 Range/Units 01:15 01:15 01:15 WBC (4.5-11.0) X10^3/uL RBC (4.0-5.2) X10^6/uL Hgb (12.0-16.0) g/dL Hct (36-46) % MCV (80-100) fL MCH (26-34) PG MCHC (30-36) % RDW (11.6-14.8) % Plt Count (150-400) X10^3/uL Neut % (Auto) (50-75) % Lymph % (Auto) (25-40) % Donley % (Auto) (3-14) % Eos % (Auto) (2-4) % Baso % (Auto) (0-2) % Neut # (Auto) (7826-3311) /uL Lymph # (Auto) (1425-5747) /uL Donley # (Auto) (0-900) /uL Eos # (Auto) (0-450) /uL Baso # (Auto) (0-100) /uL PT (10.1-12.7) SECONDS INR (0.9-1.3) APTT (26-36) SECONDS D-Dimer 503 H (<500) ng/ml Sodium (137-145) mmol/L Potassium (3.4-5.1) mmol/L Chloride (98-107) mmol/L Carbon Dioxide (22-32) mmol/L BUN (7-17) mg/dL Creatinine (0.52-1.04) mg/dL Estimated GFR (>60) mL/min BUN/Creatinine Ratio (6-22) Glucose (80-110) mg/dL Calcium (8.4-10.2) mg/dL Magnesium Cancelled (1.6-2.3) mg/dL Total Bilirubin (0.2-1.3) mg/dL AST (14-36) IU/L ALT (<35) IU/L Alkaline Phosphatase (38-126) U/L Total Creatine Kinase (30-135) U/L CK-MB (CK-2) CK-MB (CK-2) Rel Index Troponin I (0.01-0.034) ng/mL NT-Pro-B Natriuret Pep 375 H (<125) pg/mL Total Protein (6.3-8.2) g/dL Albumin (3.5-5.0) g/dL Globulin (1.7-4.1) g/dL Albumin/Globulin Ratio (1.0-2.8) Lipase (23-300) U/L SARS-CoV-2 (PCR) (Negative) 05/10/22 05/10/22 Range/Units 02:30 03:57 WBC (4.5-11.0) X10^3/uL RBC (4.0-5.2) X10^6/uL Hgb (12.0-16.0) g/dL Hct (36-46) % MCV (80-100) fL MCH (26-34) PG MCHC (30-36) % RDW (11.6-14.8) % Plt Count (150-400) X10^3/uL Neut % (Auto) (50-75) % Lymph % (Auto) (25-40) % Donley % (Auto) (3-14) % Eos % (Auto) (2-4) % Baso % (Auto) (0-2) % Neut # (Auto) (2615-3934) /uL Lymph # (Auto) (4628-3074) /uL Donley # (Auto) (0-900) /uL Eos # (Auto) (0-450) /uL Baso # (Auto) (0-100) /uL PT (10.1-12.7) SECONDS INR (0.9-1.3) APTT (26-36) SECONDS D-Dimer (<500) ng/ml Sodium (137-145) mmol/L Potassium (3.4-5.1) mmol/L Chloride (98-107) mmol/L Carbon Dioxide (22-32) mmol/L BUN (7-17) mg/dL Creatinine (0.52-1.04) mg/dL Estimated GFR (>60) mL/min BUN/Creatinine Ratio (6-22) Glucose (80-110) mg/dL Calcium (8.4-10.2) mg/dL Magnesium (1.6-2.3) mg/dL Total Bilirubin (0.2-1.3) mg/dL AST (14-36) IU/L ALT (<35) IU/L Alkaline Phosphatase (38-126) U/L Total Creatine Kinase (30-135) U/L CK-MB (CK-2) CK-MB (CK-2) Rel Index Troponin I < 0.012 (0.01-0.034) ng/mL NT-Pro-B Natriuret Pep (<125) pg/mL Total Protein (6.3-8.2) g/dL Albumin (3.5-5.0) g/dL Globulin (1.7-4.1) g/dL Albumin/Globulin Ratio (1.0-2.8) Lipase (23-300) U/L SARS-CoV-2 (PCR) Negative (Negative) Imaging Data Chest x-ray: Radiologist's Impression: [address] [address] XRay Report Signed Patient: Laila Nino MR#: [id number] : 1950 Acct:[id number] Age/Sex: 72 / F Date of Service: 05/10/22 Loc: Accession Number: [id number] ?? Procedure: XR chest 1V Ordering Provider: Alfonzo Burnham MD PROCEDURE:? XR CHEST 1V ? INDICATIONS:? chest pain ? TECHNIQUE:? One view of the chest was acquired.? ? COMPARISON:? [facility], , XR CHEST 1V, 09/20/2021, 10:38. ? FINDINGS:? ? Surgical changes and devices:? None.? ? Lungs and pleura:? Medial lung apices are partially obscured by patient's neck soft tissues.? No pleural effusions or definite pneumothorax.? ? Mediastinum:? Mediastinal contours appear normal.? Heart size is normal.? ? Bones and chest wall:? No suspicious bony lesions.? Overlying soft tissues appear unremarkable.? ? IMPRESSION:? ? 1. No definite acute cardiopulmonary disease.? ? ? Dictated by: Federico Broderick M.D. on 05/10/2022 at 2:20 ? ? Approved by: Federico Broderick M.D. on 05/10/2022 at 2:21 ? CT scan - chest: Radiologist's Impression: No pulmonary emboli. Cardiomegaly with coronary artery calcifications. ECG Data Interpretation: Normal sinus rhythm rate [address] elevation or depression MDM Narrative Medical decision making narrative: Appropriate for admission for hypertensive urgency. Also continued balance workup of echocardiogram and possible stress test. Reviewed with hospitalist and agrees Discharge Plan Departure Patient Disposition: Admitted As Inpatient Clinical Impression: Hypertensive urgency Admit Date/Time: 05/10/22 04:09 Admit Provider: Shanta Huertas
[2022-05-10 01:33] LABS: Add Manual Diff / Slide Review NO; Basophils Absolute Auto 0 /uL (0-100); Basophils Percent Auto 0.5 % (0-2); Eosinophils Absolute Auto 100 /uL (0-450); Eosinophils Percent Auto 1.8 % (2-4); Hematocrit 34.2 % (36-46); Hemoglobin 11.5 g/dL (12.0-16.0); Lymphocytes Absolute Auto 1100 /uL (1100-4500); Lymphocytes Percent Auto 19.6 % (25-40); Mean Corpuscular HGB Conc 33.5 % (30-36); Mean Corpuscular Hemoglobin 28.2 PG (26-34); Mean Corpuscular Volume 84.2 fL (80-100); Monocytes Absolute Auto 500 /uL (0-900); Monocytes Percent Auto 9.4 % (3-14); Neutrophils Absolute Auto 3800 /uL (1500-7000); Neutrophils Percent Auto 68.7 % (50-75); Platelet Count 224 X10^3/uL (150-400); Red Blood Cell Count 4.07 X10^6/uL (4.0-5.2); Red Cell Distribution Width 14.6 % (11.6-14.8); White Blood Cell Count 5.5 X10^3/uL (4.5-11.0)
[2022-05-10 01:34] LABS: INR 1.3 (0.9-1.3); Prothrombin Time 14.7 SECONDS (10.1-12.7)
[2022-05-10 01:37] LABS: PTT Partial Thromboplastin Tim 43 SECONDS (26-36)
[2022-05-10 01:38] LABS: Alanine Aminotransferase 17 IU/L (<35); Albumin Globulin Ratio 1.4 (1.0-2.8); Alkaline Phosphatase 72 U/L (38-126); Aspartate Aminotransferase 20 IU/L (14-36); BUN Creatinine Ratio 17.6 (6-22); Blood Urea Nitrogen 24 mg/dL (7-17); Calcium 8.6 mg/dL (8.4-10.2); Carbon Dioxide 25 mmol/L (22-32); Chloride 106 mmol/L (98-107); Creatine Kinase 59 U/L (30-135); Estimated Glomerular Filt Rate 41 mL/min (>60); Globulin 2.8 g/dL (1.7-4.1); Glucose 102 mg/dL (80-110); HEMOLYSIS < 15 (0-50); Lipase 217 U/L (23-300); Magnesium 2.1 mg/dL (1.6-2.3); Potassium 4.2 mmol/L (3.4-5.1); Sodium 138 mmol/L (137-145); Total Protein 6.8 g/dL (6.3-8.2)
[2022-05-10] MEDS: HYDRALAZINE 20 MG/ML VIAL 10 MG IV ×2 (01:41→02:56)
[2022-05-10 01:50] LABS: Troponin I < 0.012 ng/mL (0.01-0.034)
[2022-05-10 02:02] LABS: D Dimer 503 ng/ml (<500)
--- NOTE | 2022-05-10 02:04 | DI.CT.S_ITS ---
PROCEDURE: CT ANGIO CHEST PE PROTOCOL INDICATIONS: Interscapular pain TECHNIQUE: After the administration of intravenous contrast, 2 mm thick sections acquired from the pulmonary apices to the posterior costophrenic angles. 3-dimensional maximum intensity projection (MIP) coronal and sagittal reformats were then acquired through the thorax. For radiation dose reduction, the following was used: automated exposure control, adjustment of mA and/or kV according to patient size. COMPARISON: [facility], CT, CT CHEST ABD PELVIS W CON, 10/24/2016, 10:13. [facility], CT, CT ANGIO ABDOMEN PELVIS, 06/02/2021, 7:22. [facility], CT, CT CHEST HIGH RESOLUTION, 12/13/2015, 12:34. [facility], CT, CT NECK CHEST ABDOMEN PELVIS WITH CONTRAST, 12/17/2017, 14:36. [facility], CR, XR CHEST 1V, 05/10/2022, 1:39. FINDINGS: Image quality: Suboptimal with respiratory motion artifacts. Pulmonary arteries: Pulmonary arteries are normal in size, and demonstrate no intraluminal filling defects to suggest central pulmonary embolism. Lungs and pleura: Mild bilateral ground-glass infiltrates. There is a 9 mm nodule in the right upper lobe (series 5, image 92) centrally, unchanged since 12/13/2015, likely benign. No pleural effusions or pneumothorax. Central and peripheral airways are patent. Mediastinum: Heart size is mildly increased. No pericardial effusion. [id number] coronary artery calcifications. No mediastinal or hilar adenopathy. Thoracic aorta is normal in caliber and enhancement. Esophagus is normal in caliber. There is a moderate-sized hiatal hernia. Bones and chest wall: No suspicious bony lesions. Ribs and thoracic spine appear intact throughout. Thyroid gland is heterogeneous. There is a 1.5 cm rim calcified nodule in the left thyroid lobe. No axillary or supraclavicular adenopathy. Abdomen: There is a 1.5 cm low-density nodule in segment 4, probably a cyst. Nodular contour of liver suggesting cirrhosis. Gallbladder is surgically absent. Parapelvic left renal cysts versus hydronephrosis, chronic in appearance. IMPRESSION: 1. Suboptimal examination due to respiratory motion artifacts. No definitive pulmonary embolism. 2. Cardiomegaly. There is mild ground-glass infiltrates suggesting mild pulmonary edema secondary to congestive heart failure. Recommend clinical correlation. Uyidasrp-[id number] coronary artery atherosclerosis. 3. Moderate sized hiatal hernia. 4. Stable 9 mm nodule in the right upper lobe. 5. Parapelvic cyst versus hydronephrosis in left kidney, chronic in appearance. 6. Nodular contour of liver suggesting cirrhosis. Please correlate with liver function tests. No significant discrepancy with the night time babysitter radiology preliminary report. Dictated by: Girish Quezada M.D. on 05/10/2022 at 8:14 Approved by: Girish Quezada M.D. on 05/10/2022 at 8:25
[2022-05-10] MEDS: SODIUM CHLORIDE 0.9% 500 ML 1000 ML IV (02:08)
[2022-05-10 02:54] LABS: COVID19 -Nasal RAPID Negative (Negative)
[2022-05-10] MEDS: NITROGLYCERIN OINT 1 INCH/GM OINT...G. TOP (03:03)
[2022-05-10] MEDS: carvediloL 12.5 MG TABLET 25 MG PO (04:09)
[2022-05-10 04:36] LABS: Troponin I < 0.012 ng/mL (0.01-0.034)
[2022-05-10 05:09] LABS: NT-proBNP (BNP-Adult 18+) 375 pg/mL (<125)
--- NOTE | 2022-05-10 06:12 | PM.HP.1 ---
History of Present Illness History of Present Illness Date Patient Seen: 05/10/22 Time Patient Seen: 04:45 Chief complaint: pain in shoulder blades/ heart pt Narrative: ?Laila Nino is a 72-year-old female with a history of stage 3 chronic kidney disease, paroxysmal atrial fibrillation on Plavix and eliquis, hoh coronary artery disease stent placement x3 (4yrs ago), heart attack 2019 with cardiac stent placement x1=Total 4 cardiac stents, hyperlipidemia, severe CHIARA with CPAP, systemic lupus, left renal artery stent, renovascular hypertension, angina, who presented to the ED c/o ?chest pain and interscapular sharp pain 05/03.? Occurred at 7:00 p.m. last night. Patient reports that CP resolved with nitropaste, but that intrascapular pain continues and that it is the intrascapular pain that she experienced with her previous NH. No diaphoresis no dyspnea no syncope.? No numbness or tingling or weakness to the limbs.? Patient in no distress.? Patient has not been found to demonstrate atrial fibrillation on telemetry.? Patient denies shortness of breath, headache, changes in vision, numbness, weakness, tingling, dizziness or epistaxis.? Upper respiratory symptoms cough, abdominal pain, nausea, vomiting, diarrhea, chills, fever, recent illness injury or trauma. Patient initial blood pressures in ED 217/93, 211/94, 199/100, vitals upon admit temp 98?, BP 164/72, HR 64, R 19, O2 saturation 99% on room air. Patient's HGB 11.5, HCT 34.2, creatinine 1.36, GFR 41 these are baseline with her stage 3 kidney disease, patient's PT 14.2 INR is normal at 1.3, 8 PTT is 43, D-dimer 503, troponin is negative patient does have a heart score of 5. Patient's EKG demonstrates a sinus rhythm with a rate of [address] or T-wave changes, last echo was 03/17/2022 with an EF of 60-65%, patient had a stress test October of 2021. Patient's chest x-ray is negative for any acute cardiopulmonary processes, patient's chest CT is negative for PE, does demonstrate cardiomegaly with coronary artery calcification. Last cardiology visit Dr. Vaughn 04/13/2022?Patient admitted for hypertensive urgency. 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 Hiatal hernia (~11/22/20) History of recurrent pneumonia History of stent insertion of renal artery Hypertension Iron deficiency anemia Left renal artery stenosis (~11/22/20) Macular degeneration, age related, nonexudative Myocardial infarction due to atherothrombotic coronary artery disease Ocular migraine Osteopenia of femoral neck, bilateral (~02/2019) Paroxysmal atrial fibrillation Parumbilical hernia (~11/22/20) Pressure ulcer, buttock, right, unstageable Prinzmetal's angina (1975) Proteus enteritis (~2018) Renal artery atherosclerosis (09/22/11) Severe obstructive sleep apnea-hypopnea syndrome (10/22/15) Shinglsean (2016) Statin intolerance Stenosis of celiac artery (~11/22/20) Systemic lupus erythematosus Thyroid nodule Surgical History H/O colonoscopy with polypectomy (~04/2020) History of arthroplasty (12/09/12) History of arthroplasty (01/20/13) History of cataract removal with insertion of prosthetic lens (2014) History of cholecystectomy History of tonsillectomy Stented coronary artery (2013) Family & Social History Family History Father Lung cancer Mother Parkinson's disease Breast cancer CAD (coronary artery disease) Social History: household members friend(s) Prior Living Arrangements House lives independently No caregiver/support person No Safety & Behavioral: Feels Safe in Current Yes Environment Tobacco & Substance use: Smoking Status Never smoker alcohol intake frequency holiday/special occasion Substance Use Type does not use Meds Home Medications and Allergies Home Medications Medication Instructions Recorded Confirmed Type isosorbide mononitrate 60 mg 60 mg PO BID 03/08/19 05/10/22 History tablet,extended release 24 hr albuterol sulfate 90 mcg/actuation 2 puff inhalation Q4HP PRN 05/23/19 05/10/22 Rx aerosol inhaler (Ventolin HFA) shortness of breath or wheezing #1 inh clopidogrel 75 mg tablet (Plavix) 75 mg PO DAILY 11/28/19 05/10/22 History furosemide 20 mg tablet 20 mg PO DAILY 01/10/21 05/10/22 History carvedilol 25 mg tablet 50 mg PO QPM 06/01/21 05/10/22 History carvedilol 25 mg tablet (Coreg) 37.5 mg PO QAM 06/01/21 05/10/22 History ranolazine 500 mg tablet,extended 500 mg PO BID 09/20/21 05/10/22 History release,12 hr (Ranexa) hydralazine 10 mg tablet 40 mg PO BID 10/21/21 05/10/22 History Diovan 160 mg tablet (valsartan) 160 mg PO BID #180 tabs 12/02/21 05/10/22 Rx apixaban 5 mg tablet (Eliquis) 5 mg PO BID 03/23/22 05/10/22 History ResMed AirCurve 04/20/22 04/20/22 History Allergies Allergy/AdvReac Type Severity Reaction Status Date / Time benazepril [From Lotensin] Allergy Severe angioadema Verified 05/10/22 01:25 adhesive Allergy Mild Verified 05/10/22 01:25 Sulfa (Sulfonamide Allergy Unknown Verified 05/10/22 01:25 Antibiotics) [SULFA (SULFONAMIDE ANTIBIOTICS)] Haemophilus B polysaccharide AdvReac Intermediate YRS AGO Verified 05/10/22 01:25 conj w CAUSED [From TriHIBit] FEVER, RECENTLY MOUTH SORES Beta-Blockers AdvReac Mild LOW Verified 05/10/22 01:25 (Beta-Adrenergic Bloc TOLERANCE - HR IN 30s - HOSPITALIZED diazepam AdvReac Mild OPPOSITE Verified 05/10/22 01:25 EFFECT, BECAME HYPER/INCOMPLIANT--O.K. WITH VERSED diphtheria,pertussis AdvReac Mild YRS AGO Verified 05/10/22 01:25 (acellular),te CAUSED [From TriHIBit] FEVER, RECENTLY MOUTH SORES pseudoephedrine AdvReac Mild INCREASED Verified 05/10/22 01:25 HEART RATE Review of Systems Review of Systems Narrative: All 12 point systems reviewed with the patient and are negative except otherwise documented. Exam Vital Signs (past 8 hours): - 05/10/22 01:20 05/10/22 01:16 05/10/22 01:19 Temperature 98 F Pulse Rate 58 L 63 64 Respiratory Rate 20 14 16 Blood Pressure 192/67 H Pulse Oximetry 98 99 99 Oxygen Delivery Method Room Air 05/10/22 01:19 05/10/22 01:20 05/10/22 01:20 Temperature Pulse Rate 61 Respiratory Rate 16 Blood Pressure 211/94 H 192/67 H Pulse Oximetry 99 Oxygen Delivery Method 05/10/22 01:30 05/10/22 01:41 05/10/22 01:46 Temperature Pulse Rate 62 60 Respiratory Rate 2 L Blood Pressure 192/67 H 199/100 H Pulse Oximetry 100 Oxygen Delivery Method 05/10/22 01:46 05/10/22 02:00 05/10/22 02:00 Temperature Pulse Rate 59 L 60 Respiratory Rate 20 20 Blood Pressure 178/82 H Pulse Oximetry 99 99 Oxygen Delivery Method 05/10/22 02:15 05/10/22 02:15 05/10/22 02:56 Temperature Pulse Rate 64 Respiratory Rate 19 Blood Pressure 173/75 H 217/93 H Pulse Oximetry 99 Oxygen Delivery Method 05/10/22 03:03 05/10/22 04:08 05/10/22 04:09 Temperature Pulse Rate 77 Respiratory Rate Blood Pressure 214/79 H 164/72 H 164/72 H Pulse Oximetry Oxygen Delivery Method 05/10/22 04:33 05/10/22 02:30 05/10/22 02:31 Temperature Pulse Rate 63 67 Respiratory Rate 15 22 Blood Pressure 164/72 H Pulse Oximetry 99 99 Oxygen Delivery Method 05/10/22 02:31 05/10/22 02:53 05/10/22 02:53 Temperature Pulse Rate 73 Respiratory Rate 14 Blood Pressure 200/91 H 217/92 H Pulse Oximetry 99 Oxygen Delivery Method 05/10/22 03:00 05/10/22 03:02 05/10/22 03:02 Temperature Pulse Rate 68 69 Respiratory Rate 15 17 Blood Pressure 214/88 H Pulse Oximetry 99 99 Oxygen Delivery Method 05/10/22 03:15 05/10/22 03:15 05/10/22 03:30 Temperature Pulse Rate 67 Respiratory Rate 12 Blood Pressure 187/77 H 178/79 H Pulse Oximetry 98 Oxygen Delivery Method 05/10/22 03:30 05/10/22 04:00 05/10/22 04:01 Temperature Pulse Rate 66 68 66 Respiratory Rate 15 Blood Pressure Pulse Oximetry 98 97 97 Oxygen Delivery Method 05/10/22 04:01 05/10/22 04:37 05/10/22 04:39 Temperature Pulse Rate 72 Respiratory Rate Blood Pressure 164/72 H 176/74 H Pulse Oximetry 97 Oxygen Delivery Method 05/10/22 04:39 05/10/22 05:00 05/10/22 04:32 Temperature Pulse Rate 64 61 Respiratory Rate Blood Pressure Pulse Oximetry 97 97 98 Oxygen Delivery Method Room Air Oxygen Delivery Method Room Air Narrative Exam Narrative: Exam Narrative: General:? Patient is a well-developed, well-nourished delightful obese female,? in no distress at this time. HEENT:? Normocephalic, atraumatic, extraocular muscles intact, oral pharynx is clear and mucous membranes are moist.? Neck is supple and symmetric, trachea is midline, no adenopathy, no thyroid enlargement, nontender, no masses palpated.? Negative for JVD Chest:? Normal AP diameter and contour without kyphoscoliosis, no nasal flaring, retractions, or tachypneic labored Lungs:? Auscultation of all lung roe are clear without adventitious sounds, wheezes, rhonchi, or rales. Cardio: ? regular rate and rhythm without murmur, rubs, or gallops, no carotid bruit, no cardiac pulsations present. Abdomen:? Soft nontender, negative for organomegaly, or masses.? Bowel sounds are hyperactive present in all 4 quadrants without guarding or rebound, no CVA tenderness. Musculoskeletal:? Muscle strength and tone are equal within normal limits, no deformity, crepitus, effusions, cyanosis, or clubbing present.? +1 bilateral lower extremity edema. Full range of motion intact radial and pedal pulses are normal. Skin:? Warm dry and intact without rashes, ulcerations or petechiae. Noted bruising present to left AC/upper arm.? Neuro:? Alert and orientated x3, strength is +5/5 in all extremities, sensation to touch intact, no gross deficits noted of cranial nerves. Psych:? Patient has a well-kept appearance, appropriate affect, mental status attitude thought context and judgment are appropriate for age, patient is well informed, and diligent regarding her healthcare. Objective Labs Result Diagrams: 05/10/22 01:15 05/10/22 01:15 Labs: Laboratory Results - last 24 hr 05/10/22 05/10/22 05/10/22 01:15 01:15 01:15 WBC 5.5 RBC 4.07 Hgb 11.5 L Hct 34.2 L MCV 84.2 MCH 28.2 MCHC 33.5 RDW 14.6 Plt Count 224 Neut % (Auto) 68.7 Lymph % (Auto) 19.6 L [place] % (Auto) 9.4 Eos % (Auto) 1.8 L Baso % (Auto) 0.5 Neut # (Auto) 3800 Lymph # (Auto) 1100 [place] # (Auto) 500 Eos # (Auto) 100 Baso # (Auto) 0 PT 14.7 H INR 1.3 APTT 43 H D-Dimer Sodium 138 Potassium 4.2 Chloride 106 Carbon Dioxide 25 BUN 24 H Creatinine 1.36 H Estimated GFR 41 L BUN/Creatinine Ratio 17.6 Glucose 102 Calcium 8.6 Magnesium 2.1 Total Bilirubin 1.0 AST 20 ALT 17 Alkaline Phosphatase 72 Total Creatine Kinase 59 CK-MB (CK-2) TNP CK-MB (CK-2) Rel Index TNP Troponin I < 0.012 NT-Pro-B Natriuret Pep Total Protein 6.8 Albumin 4.0 Globulin 2.8 Albumin/Globulin Ratio 1.4 Lipase 217 SARS-CoV-2 (PCR) 05/10/22 05/10/22 05/10/22 01:15 01:15 01:15 WBC RBC Hgb Hct MCV MCH MCHC RDW Plt Count Neut % (Auto) Lymph % (Auto) [place] % (Auto) Eos % (Auto) Baso % (Auto) Neut # (Auto) Lymph # (Auto) [place] # (Auto) Eos # (Auto) Baso # (Auto) PT INR APTT D-Dimer 503 H Sodium Potassium Chloride Carbon Dioxide BUN Creatinine Estimated GFR BUN/Creatinine Ratio Glucose Calcium Magnesium Cancelled Total Bilirubin AST ALT Alkaline Phosphatase Total Creatine Kinase CK-MB (CK-2) CK-MB (CK-2) Rel Index Troponin I NT-Pro-B Natriuret Pep 375 H Total Protein Albumin Globulin Albumin/Globulin Ratio Lipase SARS-CoV-2 (PCR) 05/10/22 05/10/22 02:30 03:57 WBC RBC Hgb Hct MCV MCH MCHC RDW Plt Count Neut % (Auto) Lymph % (Auto) [place] % (Auto) Eos % (Auto) Baso % (Auto) Neut # (Auto) Lymph # (Auto) [place] # (Auto) Eos # (Auto) Baso # (Auto) PT INR APTT D-Dimer Sodium Potassium Chloride Carbon Dioxide BUN Creatinine Estimated GFR BUN/Creatinine Ratio Glucose Calcium Magnesium Total Bilirubin AST ALT Alkaline Phosphatase Total Creatine Kinase CK-MB (CK-2) CK-MB (CK-2) Rel Index Troponin I < 0.012 NT-Pro-B Natriuret Pep Total Protein Albumin Globulin Albumin/Globulin Ratio Lipase SARS-CoV-2 (PCR) Negative Assessment & Plan Assessment & Plan narrative: ?Laila Nino is a 71-year-old female with a history of stage 3 chronic kidney disease, paroxysmal atrial fibrillation on Plavix and Pradaxa, hoh coronary artery disease stent placement x3, NH 2020 with cardiac stent= 4 cardiac stents, hyperlipidemia, severe CHIARA with CPAP, systemic lupus, left renal artery stent placement, renovascular hypertension, renal artery stenosis, angina, who is being admitted for hypertensive urgency. 1. Hypertensive emergency, with Chest pain & intrascapular pain, secondary to renovascular hypertension, renal artery stenosis, hoh coronary artery disease, paroxysmal atrial fibrillation, Hyperlidiema, acute on chronic, present on admission-patient is stable -initial presenting BP 217/93, 211/94, 199/100, 164/72 Heart Score:5 -Notify provider for SBP> 180 and/or DBP> 120 -outpatient follow-up with Cardiology Dr. Roderick Kumar -continue patient's nitro, carvedilol, Plavix, Eliquis, isosorbide monitrate, lasix Diovan -Last echo 03/17/2022 EF 60-65% -Last Stress- October 2021-ordered NM stress test today -Dilaudid 0.5 mg IV now for interscapular pain- to see if it improves or resolves the pain. 2. Chronic kidney disease stage G3a/A1, chronic, due to renovascular hypertension, present on admission- stable -initial creatinine 1.36 (baseline within normal limits) GFR today 44(baseline GFR 55-44). -Monitor urinary output, call for urinary output less than 200 mL per shift or an SaO2 less than 92% -Avoid discontinued nephrotoxic medications 3. Severe CHIARA with CPAP, acute on chronic, present on admission -continue CPAP if needed 4. Systemic lupus erythematous, chronic, not present on admission -managed by PCP 5. Morbid obesity as evidence by BMI of 42.5, acute on chronic, present on admission -consideration will be given to dietary counseling Code status: Full code Surrogate decision maker:? Sister Parul AGEE COVID PCR: Negative COVID vaccination:? Moderna October 2020 DVT/VTE prophylaxis:? SCDs only Disposition:? Estimated length of stay less than 2 midnights admit for observation I have utilized all available immediate resources to obtain, update, or review the patient's current medications. I confirmed that the patient's advanced care plan is present, Code status is documented and/or surrogate decision maker is listed in the patient's medi Time Spent With Patient Critical Care time: I spent a total of [] minutes of critical care time on this patient's care today; this time is exclusive of procedural time. Quality VTE Deep Vein Thrombosis/Pulmonary Embolism Present on Admission: No
[2022-05-10 06:16] LABS: Cholesterol 192 mg/dL (140-199); HDL Cholesterol 52 mg/dL (40-60); LDL Cholesterol Calculated 121 mg/dL (<100); Triglycerides 94 mg/dL (35-150)
[2022-05-10 06:29] LABS: Troponin I < 0.012 ng/mL (0.01-0.034)
[2022-05-10] MEDS: ACETAMINOPHEN 325 MG TABLET 650 MG PO (06:30)
[2022-05-10] MEDS: HYDROMORPHONE 0.5 MG INJ IV (07:31)
--- NOTE | 2022-05-10 08:19 | DI.NM.S_ITS ---
PROCEDURE: NM ROYCE PERF SPECT R&S PHARM Rest and pharmacological stress myocardial perfusion SPECT with gated imaging and ejection fraction RADIOPHARMACEUTICAL: 26.6 mCi Tc-99m tetrafosmin IV at rest and 26.9 mCi Tc-99m tetrafosmin IV at peak effect of pharmacological stress. [id number] was performed. INDICATIONS: Chest pain TECHNIQUE: Radiopharmaceutical was injected at peak stress test, and also at rest. SPECT images were obtained. SPECT myocardial perfusion images were displayed in short axis, horizontal long axis, and vertical long axis views. Gated images were reviewed using [employer] software. COMPARISON: None. CARDIAC STRESS: A pharmacologic stress test was performed under the supervision of an attending staff, using an infusion of Regadenoson. Hemodynamic data: There is normal blood pressure and heart rate response to pharmacologic stress. Symptoms: The patient complained of chest pain, headache and nausea. Aminophylline: 100 mg. EKG: No diagnostic changes of ischemia; no ectopy. FINDINGS: Raw data: There is good myocardial uptake of radiotracer. No significant motion artifacts. Left ventricle function: Gated images demonstrate normal left ventricular wall thickening. No segmental wall motion abnormalities. No transient ischemic dilation; TID is 1.03 (normal less than 1.3). Left ventricle resting end diastolic volume is 145 mL. Left ventricle stress ejection fraction is 71%; normal range is above 45%. Myocardial perfusion: There is a large size, mild intensity fixed anterior wall defect that completely resolves with prone imaging. No reversible perfusion defects. IMPRESSION: Low risk study. The large size, mild intensity fixed anterior wall defect completely resolves with prone imaging making this most consistent with breast attenuation. Increased left ventricular end-diastolic volume however normal wall motion and ejection fraction. Dictated by: Claribel Scruggs D.O. on 05/11/2022 at 15:44 Approved by: Claribel Scruggs D.O. on 05/11/2022 at 15:49
--- NOTE | 2022-05-10 08:55 | CM.DANOTE ---
DCP: Case received, EMR reviewed and met with patient. Introduced self and role. Was able to obtain information regarding patient's baseline activity status prior to hospitalization. DCP assessment completed with information currently available. Patient is a 72 year old female who admitted early this am to the care of the hospitalist team. PCP: Dr. Wan. Payer: Medicare/[facility]. Patient came to the hospital via private vehicle secondary to having interscapular sharp pain, 8 out of 10. 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 Patient indicated that she has had stunts put in. Her boiler tester is Dr. Reyes. Patient's history includes stage 3 chronic kidney disease, a-fib, CAD, stent placement, LA in 2019. Patient disgnosed with hypertensive emergency with chest pain and intrascapular pain. She is here for a cardiac work up including a nuclear stress test. Met with patient in her room. She is pleasant, alert and oriented. She was sitting up in her chair. She is independent at her baseline, and resides here in [place] with her sister, Parul. P: DCP to continue to follow. Plan is for patient to go home she is medically stable. Mary Lou Aldridge RN/Tooth Clerk Discharge Planning/Care Management Advanced directive, confirm from FAMILY Start: 05/10/22 06:09 Freq: Q24H Status: Active Protocol: Document 05/10/22 06:09 (Rec: 05/10/22 06:44 [id number]) Advance Directive, confirm on record Time 05:50 Person contacted patient Copy received No CM Discharge Assessment Start: 05/10/22 08:54 Freq: Status: Active Protocol: Document 05/10/22 08:54 (Rec: 05/10/22 08:55 [id number]) Discharge Planning Assessment Assigned Chancellor Mary Lou Aldridge RN/Tooth Clerk Advance Directives? Yes Advance Directives on File No History Provided By Patient,Medical Record Prior Living Arrangements House Household Members friend(s) Type of transporation used prior to Drives own vehicle admit Independent with ADL's Yes Is patient alert and oriented? Yes Caregiver for Another No Barriers to Discharge No Discharge Plan Home Transportation Arrangement Friend Referrals Initiated None needed Whiteboard Updated in Patient Room with Yes name and ext. # of Chancellor Review Status In Process Next Review Type Continued Stay Review
[2022-05-10] MEDS: ISOSORBIDE MONONITRATE ER 30 MG TABLET 60 MG PO ×2 (09:44→20:59)
[2022-05-10] MEDS: VALSARTAN 80 MG TABLET 160 MG PO ×2 (09:44→20:59)
[2022-05-10] MEDS: CLOPIDOGREL 75 MG TABLET PO (09:44)
[2022-05-10] MEDS: HYDRALAZINE 10 MG TABLET 40 MG PO ×2 (09:44→21:10)
[2022-05-10] MEDS: APIXABAN 5 MG TABLET PO ×2 (09:45→20:59)
[2022-05-10] MEDS: FUROSEMIDE 20 MG TABLET PO (09:45)
[2022-05-10] MEDS: SENNOSIDES 8.6 MG TABLET 17.2 MG PO (20:59)
[2022-05-10] MEDS: RANOLAZINE 500 MG TAB.ER.12H 1000 MG PO (21:00)
[2022-05-10] MEDS: carisoprodoL 350 MG TABLET PO (21:10)
[2022-05-10] MEDS: carvediloL 12.5 MG TABLET 50 MG PO (21:10)
[2022-05-11] VITALS (10 sets, daily range): BP systolic 118–136; BP diastolic 44–52; PULSE 60–61; RESP 17–18; TEMP 36.1–36.6; O2SAT 97–99
[2022-05-11 05:59] LABS: Add Manual Diff / Slide Review NO; Basophils Absolute Auto 0 /uL (0-100); Basophils Percent Auto 0.6 % (0-2); Eosinophils Absolute Auto 100 /uL (0-450); Eosinophils Percent Auto 2.1 % (2-4); Hemoglobin 11.2 g/dL (12.0-16.0); Lymphocytes Absolute Auto 1000 /uL (1100-4500); Lymphocytes Percent Auto 21.1 % (25-40); Mean Corpuscular HGB Conc 33.9 % (30-36); Mean Corpuscular Hemoglobin 28.5 PG (26-34); Monocytes Absolute Auto 400 /uL (0-900); Monocytes Percent Auto 8.6 % (3-14); Neutrophils Absolute Auto 3100 /uL (1500-7000); Neutrophils Percent Auto 67.6 % (50-75); Platelet Count 203 X10^3/uL (150-400); Red Blood Cell Count 3.92 X10^6/uL (4.0-5.2); Red Cell Distribution Width 14.7 % (11.6-14.8); White Blood Cell Count 4.5 X10^3/uL (4.5-11.0)
[2022-05-11 06:04] LABS: BUN Creatinine Ratio 19.3 (6-22); Blood Urea Nitrogen 23 mg/dL (7-17); Calcium 8.3 mg/dL (8.4-10.2); Carbon Dioxide 23 mmol/L (22-32); Chloride 109 mmol/L (98-107); Estimated Glomerular Filt Rate 48 mL/min (>60); Glucose 98 mg/dL (80-110); HEMOLYSIS < 15 (0-50); Potassium 4.2 mmol/L (3.4-5.1); Sodium 139 mmol/L (137-145)
[2022-05-11] MEDS: HYDRALAZINE 10 MG TABLET 40 MG PO (09:30)
[2022-05-11] MEDS: APIXABAN 5 MG TABLET PO (09:32)
[2022-05-11] MEDS: FUROSEMIDE 20 MG TABLET PO (09:32)
[2022-05-11] MEDS: CLOPIDOGREL 75 MG TABLET PO (09:32)
[2022-05-11] MEDS: VALSARTAN 80 MG TABLET 160 MG PO (09:32)
[2022-05-11] MEDS: ISOSORBIDE MONONITRATE ER 30 MG TABLET 60 MG PO (09:33)
--- NOTE | 2022-05-11 14:57 | DIET.CONS2 ---
Dietary Inpatient Consultation Note Admission Date: 05/10/2022 04:09 RD consulted for pt with BMI 42.5. Pt here for stress test secondary to pain in shoulder blade, known cardiac history with newer dx CKD3. Pt has attended all of this RD's Cardiac Rehab nutrition classes, is working on weight loss, but having difficulty knowing what to eat now that she has CKD3. Pt expressed to RD she just watched a YouTube video that oxalates are bad for health so is wondering if she needs to stop eating spinach and nuts. Pt will obtain referral to outpatient nutrition therapy for CKD3 (covered by Medicare) from specification consultant to address her questions and for individualized visits to support her health. Diet: 05/10/22 Breakfast Heart Healthy Diet Diet Modifications: Sodium Level: No Added Salt Nutrition Percent Meal Consumed 100% 05/10/22 17:42 Percent Meal Consumed 50% 05/10/22 08:00 Electronically Signed by: Sandra Branch 05/11/22 14:57 Clinical Dietitian [address] [id number]
--- NOTE | 2022-05-11 15:52 | P.DS_ITS ---
History of Present Illness History of Present Illness Date Patient Seen: 05/11/22 Chief complaint: pain in shoulder blades/ heart pt Narrative: Per Shanta Huertas, [facility]-:?Laila Nnio is a 72-year-old female with a history of stage 3 chronic kidney disease, paroxysmal atrial fibrillation on Plavix and eliquis, [place] coronary artery disease stent placement x3 (4yrs ago), heart attack 2020 with cardiac stent placement x1=Total 4 cardiac stents, hyperlipidemia, severe CHIARA with CPAP, systemic lupus, left renal artery stent, renovascular hypertension, angina, who presented to the ED c/o ?chest pain and interscapular sharp pain 05/03.? Occurred at 7:00 p.m. last night. Patient reports that CP resolved with nitropaste, but that intrascapular pain continues and that it is the intrascapular pain that she experienced with her previous IA. No diaphoresis no dyspnea no syncope.? No numbness or tingling or weakness to the limbs.? Patient in no distress.? Patient has not been found to demonstrate atrial fibrillation on telemetry.? Patient denies shortness of breath, headache, changes in vision, numbness, weakness, tingling, dizziness or epistaxis.? Upper respiratory symptoms cough, abdominal pain, nausea, vomiting, diarrhea, chills, fever, recent illness injury or trauma. Patient initial blood pressures in ED 217/93, 211/94, 199/100, vitals upon admit temp 98?, BP 164/72, HR 64, R 19, O2 saturation 99% on room air. Patient's HGB 11.5, HCT 34.2, creatinine 1.36, GFR 41 these are baseline with her stage 3 kidney disease, patient's PT 14.2 INR is normal at 1.3, 8 PTT is 43, D-dimer 503, troponin is negative patient does have a heart score of 5. Patient's EKG demonstrates a sinus rhythm with a rate of [address] or T-wave changes, last echo was 03/17/2022 with an EF of 60-65%, patient had a stress test October of 2021. Patient's chest x-ray is negative for any acute cardiopulmonary processes, patient's chest CT is negative for PE, does demonstrate cardiomegaly with coronary artery calcification. Last cardiology visit Dr. Vaughn 04/13?Patient admitted for hypertensive urgency. Discharge Providers Provider Date of admission: 05/10/22 04:09 Discharge Date: 05/11/22 Primary care physician: Ace Wan MD Consults: 05/10/22 04:37 Consult to Dietitian, Adult Routine Comment: Reason For Exam: BMI 39.9 05/10/22 04:38 Consult to Discharge Planning Routine Comment: Discharge provider: Chris Lewis DO Summary Hospital Course Discharge Diagnosis: 1. Hypertensive urgency, with Chest pain & intrascapular pain 2. Chronic kidney disease stage G3a/A1, chronic, due to renovascular hypertension, present on admission- stable 3. Severe CHIARA with CPAP, acute on chronic, present on admission 4. Systemic lupus erythematous, chronic, not present on admission 5. Morbid obesity as evidence by BMI of 42.5, acute on chronic, present on admission 6. pen[place]ot coronary artery disease, paroxysmal atrial fibrillation, Hyperlidiema Hospital Course: Laila Nino is a 71-year-old female with a history of stage 3 chronic kidney disease, paroxysmal atrial fibrillation on Plavix and Pradaxa, penob[place]ot coronary artery disease stent placement x3, IA 2020 with cardiac stent= 4 cardiac stents, hyperlipidemia, severe CHIARA with CPAP, systemic lupus, left renal artery stent placement, renovascular hypertension, renal artery stenosis, chronic stable angina, who presented to the hospital with worsened chest pain that did not respond to home nitroglycerin treatments. Chest pain improved with nitro paste in the ER. Echocardiogram showed a normal ejection fraction without wall motion abnormalities. She was recommended for further stress testing as no recent records could be found of outpatient stress evaluation recently. Her BP improved with resumption of her home medications and improvement with her chest pain. She had no recurrent symptoms while here. She underwent a nuclear stress test which was deemed low risk for ischemia. No changes were made to her home medications as BP improved with resumption of her home medications and it was controlled on the day of discharge. Further evaluation is recommended with her caridologist as an outpatient if symptoms continue. She is already on 60 mg BID of imdur and further adjustments were not made. Exam Vital Signs (past 8 hours): - 05/11/22 08:28 05/11/22 08:00 05/11/22 09:30 Temperature 97.0 F L Pulse Rate 60 60 Respiratory Rate 17 Blood Pressure 136/52 L 136/52 L Pulse Oximetry 98 99 Oxygen Delivery Method Room Air Oxygen Flow Rate 0 05/11/22 10:00 05/11/22 12:29 05/11/22 12:39 Temperature Pulse Rate 60 Respiratory Rate Blood Pressure 136/52 L Pulse Oximetry 98 98 Oxygen Delivery Method Room Air Room Air Oxygen Flow Rate 05/11/22 12:00 Temperature 97.8 F Pulse Rate 61 Respiratory Rate 18 Blood Pressure 118/44 L Pulse Oximetry 97 Oxygen Delivery Method Oxygen Flow Rate 0 Oxygen Delivery Method Room Air Oxygen Flow Rate 0 Narrative Exam Narrative: Exam Narrative: General:? Patient is a well-developed, well-nourished delightful obese female,? in no distress at this time. HEENT:? Normocephalic, atraumatic, extraocular muscles intact, oral pharynx is clear and mucous membranes are moist.? Neck is supple and symmetric, trachea is midline, no adenopathy, no thyroid enlargement, nontender, no masses palpated.? Negative for JVD Chest:? Normal AP diameter and contour without kyphoscoliosis, no nasal flaring, retractions, or tachypneic labored Lungs:? Auscultation of all lung roe are clear without adventitious sounds, wheezes, rhonchi, or rales. Cardio: ? regular rate and rhythm without murmur, rubs, or gallops, no carotid bruit, no cardiac pulsations present. Abdomen:? Soft nontender, negative for organomegaly, or masses.? Bowel sounds are hyperactive present in all 4 quadrants without guarding or rebound, no CVA tenderness. Musculoskeletal:? Muscle strength and tone are equal within normal limits, no deformity, crepitus, effusions, cyanosis, or clubbing present.? +1 bilateral lower extremity edema. Full range of motion intact radial and pedal pulses are normal. Skin:? Warm dry and intact without rashes, ulcerations or petechiae. Noted bruising present to left AC/upper arm.? Neuro:? Alert and orientated x3, strength is +5/5 in all extremities, sensation to touch intact, no gross deficits noted of cranial nerves. Psych:? Patient has a well-kept appearance, appropriate affect, mental status attitude thought context and judgment are appropriate for age, patient is well informed, and diligent regarding her healthcare. Objective Labs Result Diagrams: 05/11/22 05:46 05/11/22 05:46 Labs: Laboratory Results - last 24 hr 05/11/22 05/11/22 05:46 05:46 WBC 4.5 RBC 3.92 L Hgb 11.2 L Hct 33.0 L MCV 84.0 MCH 28.5 MCHC 33.9 RDW 14.7 Plt Count 203 Neut % (Auto) 67.6 Lymph % (Auto) 21.1 L Day % (Auto) 8.6 Eos % (Auto) 2.1 Baso % (Auto) 0.6 Neut # (Auto) 3100 Lymph # (Auto) 1000 L Day # (Auto) 400 Eos # (Auto) 100 Baso # (Auto) 0 Sodium 139 Potassium 4.2 Chloride 109 H Carbon Dioxide 23 BUN 23 H Creatinine 1.19 H Estimated GFR 48 L BUN/Creatinine Ratio 19.3 Glucose 98 Calcium 8.3 L Magnesium 2.0 PFSH Medical History Angioedema Asthma Bone lesion CAD (coronary artery disease) (1979) Coccidioidomycosis (~1962) Dyslipidemia EBV infection (~1962) Elevated coronary artery calcium score 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 Hiatal hernia (~11/22/20) History of recurrent pneumonia History of stent insertion of renal artery Hypertension Iron deficiency anemia Left renal artery stenosis (~11/22/20) Macular degeneration, age related, nonexudative Myocardial infarction due to atherothrombotic coronary artery disease Ocular migraine Osteopenia of femoral neck, bilateral (~02/2019) Paroxysmal atrial fibrillation Parumbilical hernia (~11/22/20) Pressure ulcer, buttock, right, unstageable Prinzmetal's angina (1975) Proteus enteritis (~2018) Renal artery atherosclerosis (09/22/11) Severe obstructive sleep apnea-hypopnea syndrome (10/22/15) Shingles (2017) Statin intolerance Stenosis of celiac artery (~11/22/20) Systemic lupus erythematosus Thyroid nodule Surgical History H/O colonoscopy with polypectomy (~04/2020) History of arthroplasty (12/09/12) History of arthroplasty (01/20/13) History of cataract removal with insertion of prosthetic lens (2014) History of cholecystectomy History of tonsillectomy Stented coronary artery (2013) Family History Father Lung cancer Mother Parkinson's disease Breast cancer CAD (coronary artery disease) Social History marital status: household members: friend(s) lives independently: No caregiver/support person: No pets and animals: Yes Smoking Status: Never smoker Discharge Plan Discharge Plan Patient Disposition: Home Provider Discharge Comment: You were admitted to the hospital with chest pain, you underwent nuclear stress testing which was unremarkable. 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 Discharge orders & Medications Prescriptions: New carisoprodol 350 mg Tablet 350 mg PO BEDTIME PRN (Reason: muscle pain) Qty: 30 0RF Continued ranolazine [Ranexa] 500 mg tablet extended release 12 hr 500 mg PO BID valsartan [Diovan] 160 mg tablet 160 mg PO BID Qty: 180 1RF isosorbide mononitrate 60 mg tablet extended release 24 hr 60 mg PO BID Label Comments: 120 mg qam, 30 mg qpm PO DAILY; hydralazine 10 mg tablet 40 mg PO BID albuterol sulfate [Ventolin HFA] 90 mcg/actuation HFA aerosol inhaler 2 puff inhalation Q4HP PRN (Reason: shortness of breath or wheezing) Qty: 1 0RF clopidogrel [Plavix] 75 mg tablet 75 mg PO DAILY furosemide 20 mg tablet 20 mg PO DAILY Eliquis 5 mg Tablet 5 mg PO BID carvedilol [Coreg] 25 mg tablet 37.5 mg PO QAM carvedilol 25 mg tablet 50 mg PO QPM (DME) [employer]Med AirCurve See Rx Instructions .ROUTE .MEDSUPPLY Rx Instructions: BIPAP IPAP: 14 EPAP: 5 PS: 4 DME: [facility] Follow up/Referrals: Ace Wan MD [Primary Care Provider] - Discharge Health Status Multidrug resistant organism: No MDRO Diet/Activity/Treatments Diet: Diet as Tolerated Activity: As tolerated Discharge Data Primary Care Provider: Ace Wan Quality VTE Deep Vein Thrombosis/Pulmonary Embolism Present on Admission: No
--- NOTE | 2022-05-12 07:34 | CM.DPC ---
DCP Cont: Per MD, pt stable for discharge. Pt to discharge home via POV. Mary Lopez RN/DCP
== END 2022-05-11 16:39 | disposition home or self-care (01) | DRG 305 ==
LOC: ED 01:20 → AC 04:10
PROVIDERS: Internal Medicine; Admitting Provider Nurse Practitioner Family; Emergency Provider Emergency Medicine; PCP Pediatrics; Referring Provider Emergency Medicine; Visit Provider Nurse Practitioner Family
DX: I16.0 Hypertensive urgency (principal); Z68.41 Body mass index [BMI] 40.0-44.9, adult; I15.0 Renovascular hypertension; I70.1 Atherosclerosis of renal artery; I48.0 Paroxysmal atrial fibrillation; N18.31 Chronic kidney disease, stage 3a; E66.01 Morbid (severe) obesity due to excess calories; I25.10 Atherosclerotic heart disease of native coronary artery without angina pectoris; G47.33 Obstructive sleep apnea (adult) (pediatric); E78.5 Hyperlipidemia, unspecified; J45.909 Unspecified asthma, uncomplicated; Z79.01 Long term (current) use of anticoagulants; Z95.5 Presence of coronary angioplasty implant and graft; Z20.822 Contact with and (suspected) exposure to COVID-19
CPT/HCPCS: 36415; 71045; 71275; 78452; 80048; 80053; 80061; 82550; 83690; 83735; 83880; 84484; 85025; 85379; 85610; 85730; 87635; 93005; 93010; 93017; 96374; 96375; 99284; C9803; A9502; J0360; J1170; J2785

== ENCOUNTER → 2022-06-02 09:37 | Outpatient (CLI) | payer MEDICARE, BC, SELFPAY ==
[2022-05-10 05:13] VITALS: BMI 42.5
== END ==
PROVIDERS: PCP Pediatrics; Referring Provider Pediatrics; Visit Provider Pediatrics
DX: Z78.0 Asymptomatic menopausal state (principal); M85.89 Other specified disorders of bone density and structure, multiple sites
CPT/HCPCS: 77080

== ENCOUNTER → 2022-06-12 08:29 | Outpatient (CLI) | payer MEDICARE, BC, SELFPAY ==
[2022-05-10 05:13] VITALS: BMI 42.5
[2022-06-12 09:04] LABS: Add Manual Diff / Slide Review NO; Basophils Absolute Auto 0 /uL (0-100); Basophils Percent Auto 0.5 % (0-2); Eosinophils Absolute Auto 100 /uL (0-450); Eosinophils Percent Auto 1.2 % (2-4); Hematocrit 32.8 % (36-46); Hemoglobin 11.1 g/dL (12.0-16.0); Lymphocytes Absolute Auto 700 /uL (1100-4500); Lymphocytes Percent Auto 14.5 % (25-40); Mean Corpuscular HGB Conc 33.7 % (30-36); Mean Corpuscular Hemoglobin 28.6 PG (26-34); Mean Corpuscular Volume 84.8 fL (80-100); Monocytes Absolute Auto 300 /uL (0-900); Monocytes Percent Auto 6.8 % (3-14); Neutrophils Absolute Auto 3700 /uL (1500-7000); Platelet Count 215 X10^3/uL (150-400); Red Blood Cell Count 3.87 X10^6/uL (4.0-5.2); Red Cell Distribution Width 14.8 % (11.6-14.8); White Blood Cell Count 4.8 X10^3/uL (4.5-11.0)
[2022-06-12 09:19] LABS: Alanine Aminotransferase 14 IU/L (<35); Albumin 3.9 g/dL (3.5-5.0); Albumin Globulin Ratio 1.3 (1.0-2.8); Alkaline Phosphatase 67 U/L (38-126); Aspartate Aminotransferase 18 IU/L (14-36); BUN Creatinine Ratio 20.3 (6-22); Blood Urea Nitrogen 24 mg/dL (7-17); Calcium 8.6 mg/dL (8.4-10.2); Carbon Dioxide 23 mmol/L (22-32); Chloride 110 mmol/L (98-107); Estimated Glomerular Filt Rate 48 mL/min (>60); Glucose 91 mg/dL (80-110); HEMOLYSIS < 15 (0-50); Potassium 4.3 mmol/L (3.4-5.1); Sodium 140 mmol/L (137-145); Total Protein 6.9 g/dL (6.3-8.2)
[2022-06-12 09:54] LABS: Ferritin 76 ng/mL (11-264)
[2022-06-12 10:00] LABS: HEMOLYSIS < 15 (0-50); Iron 65 ug/dL (37-170)
[2022-06-12 10:11] LABS: Percent Iron Saturation 23 % (15-50); Total Iron Binding Capacity 286 ug/dL (265-497); Transferrin 201 mg/dL (206-381)
[2022-06-12 10:22] LABS: Creatinine Urine Random 43.5 mg/dL
[2022-06-12 10:23] LABS: Microalbumi Creatinin Ratio Ur 13.7 ug/mg CR (<30); Microalbumin Urine Random 0.6 mg/dL (0-1.6)
[2022-06-13 17:44] LABS: Free Kappa Lt Chains, Serum 35.9 mg/L (3.3-19.4); Free Lambda Lt Chains,Serum 19.8 mg/L (5.7-26.3)
[2022-06-14 10:40] LABS: Albumin 3.7 g/dL (2.9-4.4); Alpha-1-Globulin 0.2 g/dL (0.0-0.4); Alpha-2-Globulin 0.7 g/dL (0.4-1.0); Gamma Globulin 0.7 g/dL (0.4-1.8); Globulin Total 2.4 g/dL (2.2-3.9); Immunoglobulin A, Serum 156 mg/dL (64-422); Immunoglobulin G,Serum 801 mg/dL (586-1602); Immunoglobulin M, Serum 56 mg/dL (26-217); Protein, Total 6.1 g/dL (6.0-8.5)
== END ==
PROVIDERS: Internal Medicine Hematology & Oncology; PCP Pediatrics; Referring Provider Pediatrics; Visit Provider Pediatrics
DX: D50.8 Other iron deficiency anemias (principal); N18.31 Chronic kidney disease, stage 3a; Z86.2 Personal history of diseases of the blood and blood-forming organs and certain disorders involving the immune mechanism; D47.2 Monoclonal gammopathy; I10 Essential (primary) hypertension
CPT/HCPCS: 36415; 80053; 82043; 82570; 82728; 82784; 83540; 83550; 83883; 84155; 84165; 85025; 86334; 86850; 86900; 86901

== ENCOUNTER → 2022-08-23 14:42 | Outpatient (CLI) | payer MEDICARE, BC, SELFPAY ==
[2022-05-10 05:13] VITALS: BMI 42.5
--- NOTE | 2022-08-23 14:44 | DIET.CONS ---
Dietary Consultation Note Assessment: 72y [address] visit for help with diet to support CKD3 and heart failure. This RD taught Cardiac Rehab classes with patient present as well as worked with her during her last inpatient stay. Pt desires ongoing support of diet to avoid dialysis as long as possible. Pt leans towards vegetarian eating-not much meat or dairy at baseline. Pt already doing excellent with limiting sodium in the diet. Preferences: not eating soy because mom had breast cancer likes beans but likes them and wants recipe for veggie burgers but afraid to eat protein because high school french teacher said to limit intake to 60g/d. hates yogurt, mayonnaise, tzatziki, sour cream, cottage cheese, milk BMI: 42.5 Nutrition Diagnosis: altered nutrition related laboratory values (eGFR, Cr, BUN) r/t reduced renal fxn aeb pt with eGFR in 40s-50s, Cr 1.10-1.2, BUN>20, pt has CKD3 and heart failure. Interventions: 1. Using Renal Plate handout, educated pt on important factors for her current lab trends. Educated pt on phos additives and their ability to be 100% absorbed by the body. Practiced label reading for these ingredients. Pt eating 30 eggo waffles per year which doesn't need to change, pt drinking 1 diet coke daily which could be reduced further. 2. Educated pt on sources of protein and levels of protein per meal to satisfy high school french teacher reccs at 60g cap. Pt prefers plant-based proteins which are more renal friendly. Limit beans to 1/2 cup per meal, 2oz meat when eating it, 6 eggs weekly. 3. Encouraged pt to eat unprocessed diet with intake whole grains, nuts/seeds/beans as phosphorus from high fiber plant foods only absorbed 1/3 compared to dairy and processed phos foods. Pt not eating dairy at this time and minimal processed foods. 4. Educated pt that her K+ has never been elevated, so no need to avoid high K+ foods at this time. We will monitor and adjust as quarterly labs come in. 5. Encouraged pt to maintain hydration without overdoing it for heart failure. Pt to monitor any edema in legs or SOB. Pt to have light yellow urine as goal. EER: 1.5-2g sodium restriction, 60g PRO, avoid most processed foods and phos additives Monitoring/Evaluations: f/u in 4mo and continue meeting 3x/y as insurance allows for this. Electronically Signed by: Sandra Branch 08/23/22 14:44 Clinical Dietitian [address] [address]
== END ==
PROVIDERS: PCP Family Medicine; Referring Provider Pediatrics; Visit Provider Pediatrics
DX: N18.30 Chronic kidney disease, stage 3 unspecified (principal); I50.9 Heart failure, unspecified; Z71.3 Dietary counseling and surveillance
CPT/HCPCS: 97802

== ENCOUNTER 2022-12-07 07:25 | Emergency (ER) | payer MEDICARE, BC, SELFPAY ==
[2022-09-08 08:47] VITALS: BMI 42.5
[2022-12-07 07:30] VITALS: BP 198/85; PULSE 72; RESP 14; TEMP 37.3; O2SAT 99; BMI 43.6
[2022-12-07 07:34] VITALS: PULSE 67; RESP 22; O2SAT 97
--- NOTE | 2022-12-07 07:46 | DI.RAD.S_ITS ---
PROCEDURE: XR CHEST 1V INDICATIONS: Flu like symptoms TECHNIQUE: One view of the chest was acquired. COMPARISON: [facility], [place], XR CHEST 1V, 05/10/2022, 1:39. [facility], CR, XR CHEST 1V, 09/20/2021, 10:38. FINDINGS: Surgical changes and devices: None. Lungs and pleura: Lungs are clear. No pleural effusions or pneumothorax. Mediastinum: Mediastinal contours appear normal. Heart size is enlarged. Bones and chest wall: No suspicious bony lesions. Overlying soft tissues appear unremarkable. IMPRESSION: No acute cardiopulmonary process. Dictated by: Kenrick Whittington M.D. on 12/07/2022 at 8:12 Approved by: Kenrick Whittington M.D. on 12/07/2022 at 8:16
[2022-12-07 07:59] LABS: COVID19 -Nasal RAPID POSITIVE (Negative)
[2022-12-07 08:00] VITALS: PULSE 63; RESP 26; O2SAT 98
[2022-12-07 08:01] VITALS: BP 154/73; PULSE 65; RESP 19; O2SAT 98
--- NOTE | 2022-12-07 08:06 | ED_ITS ---
HPI - URI/Sore Throat General Chief Complaint: Fever Stated Complaint: feel very ill T-1 Time Seen by Provider: 12/07/22 07:55 Source: patient Mode of arrival: Ambulatory History of Present Illness HPI Narrative: Patient here with her sister. Complains of cough cold congestion fever body aches chills muscle cramps since yesterday around noon. Denies any sick contacts. Patient tested positive for COVID at home. She is COVID positive here. Patient has history of cardiac stents atrial fibrillation congestive heart failure and chronic kidney disease. Patient seen by primary care 8 days ago for blood pressure medication adjustments. Blood pressure on arrival elevated however she just took her blood pressure medication here and it has improved. No dyspnea. Has had nausea. Related Data Home Medications Medication Instructions Recorded Confirmed isosorbide mononitrate 60 mg 60 mg PO BID 03/08/19 10/23/22 tablet,extended release 24 hr clopidogrel 75 mg tablet (Plavix) 75 mg PO DAILY 11/28/19 10/23/22 furosemide 20 mg tablet 20 mg PO DAILY 01/10/21 10/23/22 carvedilol 25 mg tablet 50 mg PO QPM 06/01/21 10/23/22 carvedilol 25 mg tablet (Coreg) 37.5 mg PO QAM 06/01/21 10/23/22 ranolazine 500 mg tablet,extended 500 mg PO BID 09/20/21 10/23/22 release,12 hr (Ranexa) hydralazine 10 mg tablet 40 mg PO BID 10/21/21 10/23/22 apixaban 5 mg tablet (Eliquis) 5 mg PO BID 03/23/22 10/23/22 ResMed AirCurve 04/20/22 10/23/22 Previous Rx's Medication Instructions Recorded albuterol sulfate 90 mcg/actuation 2 puff inhalation Q4HP PRN 05/23/19 aerosol inhaler (Ventolin HFA) shortness of breath or wheezing #1 inh carisoprodol 350 mg tablet 350 mg PO BEDTIME PRN muscle pain 06/05/22 #30 tabs trazodone 50 mg tablet 25 mg PO BEDTIME #14 tabs 08/28/22 albuterol sulfate 90 mcg/actuation 2 puff inhalation Q6H PRN 09/08/22 aerosol inhaler shortness of breath or wheezing #8.5 grams Diovan 160 mg tablet (valsartan) 160 mg PO BID #180 tabs 12/05/22 benzonatate 100 mg capsule 100 mg PO TID PRN cough #20 caps 12/07/22 metoclopramide HCl 10 mg tablet 10 mg PO Q6H PRN nausea and 12/07/22 vomiting #20 tabs Allergies Allergy/AdvReac Type Severity Reaction Status Date / Time benazepril [From Lotensin] Allergy Severe angioadema Verified 12/07/22 08:01 adhesive Allergy Mild Verified 12/07/22 08:01 Sulfa (Sulfonamide Allergy Unknown Verified 12/07/22 08:01 Antibiotics) [SULFA (SULFONAMIDE ANTIBIOTICS)] Haemophilus B polysaccharide AdvReac Intermediate YRS AGO Verified 12/07/22 08:01 conj w CAUSED [From TriHIBit] FEVER, RECENTLY MOUTH SORES Beta-Blockers AdvReac Mild LOW Verified 12/07/22 08:01 (Beta-Adrenergic Bloc TOLERANCE - HR IN 30s - HOSPITALIZED diazepam AdvReac Mild OPPOSITE Verified 12/07/22 08:01 EFFECT, BECAME HYPER/INCOMPLIANT--O.K. WITH VERSED diphtheria,pertussis AdvReac Mild YRS AGO Verified 12/07/22 08:01 (acellular),te CAUSED [From TriHIBit] FEVER, RECENTLY MOUTH SORES pseudoephedrine AdvReac Mild INCREASED Verified 12/07/22 08:01 HEART RATE Review of Systems Review of Systems Narrative: GENERAL: Positive chills, fatigue, malaise, fever, sweats. HEENT: negative sinus pain, ear pain, sore throat RESPIRATORY: negative dyspnea, positive cough CARDIOVASCULAR: negative chest pain, palpitations GASTROINTESTINAL: Positive nausea, negative vomiting, abdominal pain : negative dysuria, frequency, hematuria MUSCULOSKELETAL: negative muscle or bony pain SKIN: negative rash, skin lesions NEUROLOGIC: negative weakness, numbness ROS Unobtainable: All systems reviewed & are unremarkable except as noted in HPI and below Patient History Medical History AAA (abdominal aortic aneurysm) Anemia Angioedema Asthma Atrial fibrillation Bone lesion CAD (coronary artery disease) (1979) Cardiac arrhythmia Coccidioidomycosis (~1962) Diastolic heart failure Dyslipidemia EBV infection (~1962) Elevated coronary artery calcium score 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 Hiatal hernia (~11/22/20) History of recurrent pneumonia History of stent insertion of renal artery Hypertension Iron deficiency anemia Kidney failure Left renal artery stenosis (~11/22/20) Macular degeneration, age related, nonexudative Melanoma Myocardial infarction due to atherothrombotic coronary artery disease Ocular migraine Osteopenia of femoral neck, bilateral (~02/2019) Paroxysmal atrial fibrillation Parumbilical hernia (~11/22/20) Pressure ulcer, buttock, right, unstageable Prinzmetal's angina (1975) Proteus enteritis (~2018) Renal artery atherosclerosis (09/22/11) Severe obstructive sleep apnea-hypopnea syndrome (10/22/15) Shingles (2016) Shoulder pain Sleep apnea Statin intolerance Stenosis of celiac artery (~11/22/20) Stroke Systemic lupus erythematosus Thyroid nodule Surgical History Anesthesia H/O colonoscopy with polypectomy (~04/2020) History of arthroplasty (12/09/12) History of arthroplasty (01/20/13) History of cataract removal with insertion of prosthetic lens (2014) History of cholecystectomy History of tonsillectomy Stented coronary artery (2013) Family History Father Lung cancer Hypertension Mother Parkinson's disease Breast cancer CAD (coronary artery disease) Brother History of heart disease Social History marital status: household members: friend(s) lives independently: No caregiver/support person: No pets and animals: Yes Smoking Status: Never smoker Smoking Status: Never smoker alcohol intake frequency: holidays/special occasions only Substance Use Type: does not use Exam Narrative Exam Narrative: GENERAL: in no distress, not toxic not dyspneic HEAD: Normocephalic. EYES: Pupils equal round ENT: Mucous membranes moist. NECK: Trachea midline. CARDIOVASCULAR: Regular rate and rhythm without murmurs RESPIRATORY: Clear to auscultation. Breath sounds equal bilaterally. No wheezes, rales, or rhonchi. There is a coarse cough heard on exam. Speaking full sentences GASTROINTESTINAL: Abdomen soft, non-tender EXTREMITIES: No gross deformities. BACK: No flank tenderness. NEURO: AOx4. SKIN: Warm and dry PSYCH: Not anxious, is cooperative Initial Vital Signs Initial Vital Signs: Vital Signs Temperature 99.1 F 12/07/22 07:30 Pulse Rate 72 12/07/22 07:30 Respiratory Rate 14 12/07/22 07:30 Blood Pressure 198/85 H 12/07/22 07:30 Pulse Oximetry 99 12/07/22 07:30 Oxygen Delivery Method Room Air 12/07/22 07:30 Course Orders Ordered: Discontinued Medications Benzonatate (Benzonatate 100 Mg Capsule) 100 mg PO NOW ONE Stop: 12/07/22 08:06 Last Admin: 12/07/22 08:26 Dose: 100 mg Documented By: CONCETTA Metoclopramide HCl (Metoclopramide Hcl 10 Mg Tablet) 10 mg PO NOW ONE Stop: 12/07/22 08:06 Last Admin: 12/07/22 08:26 Dose: 10 mg Documented By: CONCETTA Vital Signs Vital signs: Vital Signs - 8 hr 12/07/22 07:30 12/07/22 07:34 12/07/22 08:00 Temperature 99.1 F Pulse Rate 72 67 63 Respiratory Rate 14 22 26 H Blood Pressure 198/85 H Pulse Oximetry 99 97 98 Oxygen Delivery Method Room Air 12/07/22 08:01 12/07/22 08:01 12/07/22 08:30 Temperature Pulse Rate 65 Respiratory Rate 19 Blood Pressure 154/73 H 154/68 H Pulse Oximetry 98 Oxygen Delivery Method 12/07/22 08:30 Temperature Pulse Rate 61 Respiratory Rate 17 Blood Pressure Pulse Oximetry 96 Oxygen Delivery Method Room Air MDM - URI/Sore Throat Lab Data Labs: Lab Results 12/07/22 Range/Units 07:40 SARS-CoV-2 (PCR) Positive H (Negative) Imaging Data Chest x-ray: Radiologist's Impression: PROCEDURE:? XR CHEST 1V ? INDICATIONS:? Flu like symptoms ? TECHNIQUE:? One view of the chest was acquired.? ? COMPARISON:? [facility], CR, XR CHEST 1V, 05/10/2022, 1:39.? [facility], CR, XR CHEST 1V, 09/20/2021, 10:38. ? FINDINGS:? ? Surgical changes and devices:? None.? ? Lungs and pleura:? Lungs are clear.? No pleural effusions or pneumothorax.? ? Mediastinum:? Mediastinal contours appear normal.? Heart size is enlarged.? ? Bones and chest wall:? No suspicious bony lesions.? Overlying soft tissues appear unremarkable.? ? IMPRESSION:? No acute cardiopulmonary process. ? ? Dictated by: Kenrick Whittington M.D. on 12/07/2022 at 8:12 ? ? Approved by: Kenrick Whittington M.D. on 12/07/2022 at 8:16 ? [facility] Narrative Medical decision making narrative: Patient here with her sister. Complains of cough cold congestion fever body ach es chills muscle cramps since yesterday around noon. Denies any sick contacts. Patient tested positive for COVID at home. She is COVID positive here. Patient has history of cardiac stents atrial fibrillation congestive heart failure and chronic kidney disease. Patient seen by primary care 8 days ago for blood pressure medication adjustments. Blood pressure on arrival elevated however she just took her blood pressure medication here and it has improved. No dyspnea. Has had nausea. After history and exam chest x-ray viral swab Tessalon Perles Reglan EKG ordered [facility] CC: Upper respiratory symptoms Complicating co-morbidities: Cardiac stent atrial fibrillation congestive heart failure Data collected from: Patient and sister Medical records reviewed: Office visit 8 days ago Differential considered: Includes but not limited to viral infection pneumonia bronchitis Exam documented above, pertinent findings include: Coarse cough on exam Lab Test results independently reviewed as above. Pertinent findings: Positive COVID viral swab Independently reviewed EKG as above normal EKG normal sinus rhythm rate 61 Imaging studies independently reviewed: No acute process Treatments: Reglan Tessalon Perles Re-evaluations: Patient feeling much better. Blood pressure improved 154/68. Cough improved. Nausea has improved. Patient agrees for discharge home. Exam and laboratory studies and imaging reassuring. Return precautions reviewed with her and sister. They do understand quarantine for positive COVID. Discussion: Appropriate for discharge home. Not toxic at discharge. Exam and laboratory studies and imaging reassuring. Not requiring supplemental oxygen. No dyspnea. Nontoxic. Return precautions reviewed with her. She desires discharge home. Prescription for Reglan and Tessalon Perles provided. Diagnosis: COVID infection Discharge Plan Departure Patient Disposition: Home Clinical Impression: COVID-19 Instructions: DI for Fever (Symptom) -- Adult, DI for COVID-19 (Suspected or Confirmed ) Activity Restrictions/Additional Instructions: Prescription for Reglan and cough medication has been sent to your [facility] pharmacy to car pick up driver today. Please do continue home medications. See family doctor in a week for re-evaluation. You must quarantine for 10 days. Return if worse if any questions or concerns if any trouble breathing. Prescriptions: New benzonatate 100 mg capsule 100 mg PO TID PRN (Reason: cough) Qty: 20 0RF metoclopramide HCl 10 mg tablet 10 mg PO Q6H PRN (Reason: nausea and vomiting) Qty: 20 0RF No Action ranolazine [Ranexa] 500 mg tablet extended release 12 hr 500 mg PO BID carisoprodol 350 mg tablet 350 mg PO BEDTIME PRN (Reason: muscle pain) Qty: 30 0RF valsartan [Diovan] 160 mg tablet 160 mg PO BID Qty: 180 1RF isosorbide mononitrate 60 mg tablet extended release 24 hr 60 mg PO BID Patient Comments: 120 mg qam, 30 mg qpm PO DAILY; hydralazine 10 mg tablet 40 mg PO BID albuterol sulfate 90 mcg/actuation HFA aerosol inhaler 2 puff inhalation Q6H PRN (Reason: shortness of breath or wheezing) Qty: 8.5 0RF albuterol sulfate [Ventolin HFA] 90 mcg/actuation HFA aerosol inhaler 2 puff inhalation Q4HP PRN (Reason: shortness of breath or wheezing) Qty: 1 0 RF clopidogrel [Plavix] 75 mg tablet 75 mg PO DAILY furosemide 20 mg tablet 20 mg PO DAILY Eliquis 5 mg Tablet 5 mg PO BID carvedilol [Coreg] 25 mg tablet 37.5 mg PO QAM carvedilol 25 mg tablet 50 mg PO QPM (DME) ResMed AirCurve See Rx Instructions .Route .MEDSUPPLY Rx Instructions: BIPAP IPAP: 14 EPAP: 5 PS: 4 DME: [facility] trazodone 50 mg tablet 25 mg PO BEDTIME Qty: 14 0RF Referrals: La Torres DO [Primary Care Provider] - Stand Alone Forms: Patient Portal/API
[2022-12-07] MEDS: BENZONATATE 100 MG CAPSULE PO (08:26)
[2022-12-07] MEDS: METOCLOPRAMIDE HCL 10 MG TABLET PO (08:26)
[2022-12-07 08:30] VITALS: BP 154/68; PULSE 61; RESP 17; O2SAT 96
== END 2022-12-07 09:04 | disposition home or self-care (01) ==
PROVIDERS: Emergency Provider Emergency Medicine; Family Provider Family Medicine; PCP Family Medicine
DX: U07.1 COVID-19 (principal); I10 Essential (primary) hypertension
CPT/HCPCS: 71045; 87635; 93005; 93010; 99283; C9803

== ENCOUNTER → 2022-12-13 08:55 | Outpatient (CLI) | payer MEDICARE, BC, SELFPAY ==
[2022-09-08 08:47] VITALS: BMI 42.5
--- NOTE | 2022-12-13 08:57 | DI.US.S_ITS ---
PROCEDURE: US EXTREMITY NONVASC LOWER RT INDICATIONS: RIGHT LATERAL FEMORAL PAIN TECHNIQUE: Real-time scanning was performed of the areas of clinical concern involving the right lower extremity, with image documentation. [facility] EXTREMITY NON-VASCULAR LTD, 12/26/2017, 11:02. FINDINGS: Scanning is performed of the right hip. Within this region, no fluid collections or masses are seen. Within the popliteal fossa, no Ren's cyst, other fluid collections, or masses can be seen. IMPRESSION: Negative ultrasound, without hip joint effusion or Ren's cyst. Dictated by: Andrea Michelle M.D. on 12/13/2022 at 11:41 Approved by: Andrea Michelle M.D. on 12/13/2022 at 11:42
== END ==
PROVIDERS: Family Provider Family Medicine; PCP Family Medicine; Referring Provider Family Medicine; Visit Provider Family Medicine
DX: M25.551 Pain in right hip (principal); M76.30 Iliotibial band syndrome, unspecified leg
CPT/HCPCS: 76882

== ENCOUNTER → 2023-01-12 09:08 | Outpatient (CLI) | payer MEDICARE, BC, SELFPAY ==
[2022-12-27 15:13] VITALS: BMI 42.5
[2023-01-12 09:48] LABS: Hematocrit 30.2 % (36-46); Hemoglobin 10.2 g/dL (12.0-16.0); Mean Corpuscular HGB Conc 33.7 % (30-36); Mean Corpuscular Hemoglobin 28.1 PG (26-34); Mean Corpuscular Volume 83.5 fL (80-100); Platelet Count 220 X10^3/uL (150-400); Red Blood Cell Count 3.61 X10^6/uL (4.0-5.2); White Blood Cell Count 4.3 X10^3/uL (4.5-11.0)
[2023-01-12 10:04] LABS: BUN Creatinine Ratio 19.1 (6-22); Blood Urea Nitrogen 22 mg/dL (7-17); Calcium 8.5 mg/dL (8.4-10.2); Carbon Dioxide 21 mmol/L (22-32); Chloride 112 mmol/L (98-107); Estimated Glomerular Filt Rate 50 mL/min (>60); Glucose 92 mg/dL (80-110); HEMOLYSIS < 15 (0-50); Potassium 4.1 mmol/L (3.4-5.1); Sodium 140 mmol/L (137-145)
[2023-01-12 10:20] LABS: Vitamin D 25 Hydroxy (D3) 29.9 ng/mL (30.0-100.0)
[2023-01-12 10:37] LABS: Thyroid Stimulating Hormone 1.23 uIU/mL (0.47-4.68)
[2023-01-12 10:39] LABS: Ferritin 51 ng/mL (11-264)
[2023-01-12 10:53] LABS: Vitamin B12 321 pg/mL (239-931)
== END ==
PROVIDERS: Family Provider Family Medicine; PCP Family Medicine; Referring Provider Family Medicine; Visit Provider Family Medicine
DX: D64.9 Anemia, unspecified (principal); E04.1 Nontoxic single thyroid nodule; E53.8 Deficiency of other specified B group vitamins; I10 Essential (primary) hypertension; L65.9 Nonscarring hair loss, unspecified; N18.31 Chronic kidney disease, stage 3a; N19 Unspecified kidney failure
CPT/HCPCS: 36415; 80048; 82306; 82607; 82728; 84443; 85027

== ENCOUNTER → 2023-01-15 08:59 | Outpatient (CLI) | payer MEDICARE, BC, SELFPAY ==
[2022-12-27 15:13] VITALS: BMI 42.5
[2023-01-15 14:59] LABS: NT-proBNP (BNP-Adult 18+) 452 pg/mL (<125)
== END ==
PROVIDERS: Family Provider Family Medicine; PCP Family Medicine; Referring Provider Internal Medicine Cardiovascular Disease; Visit Provider Internal Medicine Cardiovascular Disease
DX: R06.02 Shortness of breath (principal)
CPT/HCPCS: 36415; 83880

== ENCOUNTER → 2023-03-30 09:28 | Outpatient (CLI) | payer MEDICARE, BC, SELFPAY ==
[2022-12-27 15:13] VITALS: BMI 42.5
[2023-03-31 23:08] LABS: IgA 148 mg/dL (64-422); t-Transglutaminase IgA <2 U/mL (0-3)
[2023-04-05 19:50] LABS: Deamidated Gliadin IgA 8 units (0-19); Deamidated Gliadin IgG 2 units (0-19); Endomysial Antibody IgA Negative (Negative); IGA 143 mg/dL (64-422)
== END ==
PROVIDERS: Family Provider Family Medicine; PCP Family Medicine; Referring Provider Family Medicine; Visit Provider Family Medicine
DX: K90.41 Non-celiac gluten sensitivity (principal); R53.83 Other fatigue
CPT/HCPCS: 36415; 82784; 83516; 86255

== ENCOUNTER → 2023-04-03 07:45 | Outpatient (CLI) | payer MEDICARE, BC, SELFPAY ==
[2022-12-27 15:13] VITALS: BMI 42.5
--- NOTE | 2023-04-03 07:47 | DI.MG.S_ITS ---
BILATERAL DIGITAL SCREENING MAMMOGRAM 3D/2D WITH CAD: 04/03/2023 CLINICAL: Routine screening. Family history of breast cancer. Comparison is made to exams dated: 03/31/2021 mammogram, 07/03/2019 mammogram, and 06/15/2018 mammogram - [facility]. Both breasts are almost entirely fatty (category a/<25% glandular tissue). Current study was also evaluated with a Computer Aided Detection (CAD) system. No significant masses, calcifications, or other findings are seen in either breast. There has been no significant interval change. IMPRESSION: NEGATIVE There is no mammographic evidence of malignancy. A 1 year screening mammogram is recommended. Based on the Tyrer Cuzick model (a risk assessment model) the patient's lifetime risk is 5.4% and her 10 year risk is 5.4%. According to the ACR, ACS, and NCCN guidelines, an annual breast MRI exam along with mammogram is recommended if the patient's lifetime risk is 20% or greater. This exam was interpreted at Station ID: [id number]. NOTE: For mammograms, a report in lay terms will be sent to the patient. Approximately 15% of breast malignancies will not be visualized mammographically. In the management of a palpable breast mass, a negative mammogram must not discourage biopsy of a clinically suspicious lesion. Electronically Signed By: Jesi anders/veda:04/03/2023 11:45:03 letter sent: Normal Exam ACR BI-RADS Category 1: Negative [id number]
== END ==
PROVIDERS: Family Provider Family Medicine; PCP Family Medicine; Referring Provider Family Medicine; Visit Provider Family Medicine
DX: Z12.31 Encounter for screening mammogram for malignant neoplasm of breast (principal); Z80.3 Family history of malignant neoplasm of breast
CPT/HCPCS: 77063; 77067

== ENCOUNTER → 2023-04-11 07:18 | Outpatient (CLI) | payer MEDICARE, BC, SELFPAY ==
[2022-12-27 15:13] VITALS: BMI 42.5
--- NOTE | 2023-04-11 07:20 | DI.US.S_ITS ---
PROCEDURE: US THYROID INDICATIONS: F/U NODULES TECHNIQUE: Real-time scanning was performed of the thyroid gland, with image documentation. COMPARISON: [facility], [place], US THYROID, 06/24/2019, 9:08. [facility], [place], US THYROID, 06/01/2020, 11:42. FINDINGS: Right: 4.3 x 1.7 x 2.1 cm, previously 4.0 x 1.6 x 2.0 cm. Heterogeneous echotexture. Single minimally hypoechoic solid nodule centrally in the right lobe is stable to decreased in size measuring up to 9 mm. No suspicious features. Left: 5.2 x 2.4 x 1.9 cm, previously 4.7 x 2.0 x 2.4 cm. Heterogeneous lobulated echotexture. A stable peripherally calcified nodule, and a few other areas of hyperechoic nodularity lobe indistinct margins are present. There is a curvilinear peripheral calcification in the lower pole, not a truly defined nodule which was also present previously. There are no new nodules or significant changes to the overall left thyroid morphology. Isthmus: 4 mm in thickness. No nodules. IMPRESSION: 1. No change to a multinodular thyroid gland compared to 06/24/19. Dictated by: Poornima Banks M.D. on 04/11/2023 at 20:38 Approved by: Poornima Banks M.D. on 04/11/2023 at 20:46
== END ==
PROVIDERS: Family Provider Family Medicine; PCP Family Medicine; Referring Provider Family Medicine; Visit Provider Family Medicine
DX: E04.2 Nontoxic multinodular goiter (principal)
CPT/HCPCS: 76536

== ENCOUNTER 2023-05-29 09:56 | Emergency (ER) | payer MEDICARE, BC, SELFPAY ==
[2022-12-27 15:13] VITALS: BMI 42.5
[2023-05-29 10:04] VITALS: BP 156/72; PULSE 67; RESP 15; TEMP 36.1; O2SAT 99; BMI 41.5
--- NOTE | 2023-05-29 10:11 | DI.CT.S_ITS ---
PROCEDURE: CT HEAD/BRAIN WO CON INDICATIONS: head injury on eliquis/plavix TECHNIQUE: Noncontrast 4.5 mm thick angled axial sections acquired from the foramen magnum to the vertex, with coronal and sagittal reformats. For radiation dose reduction, the following was used: automated exposure control, adjustment of mA and/or kV according to patient size. COMPARISON: [facility], CT, CT HEAD/BRAIN WO CON, 12/26/2021, 14:26. FINDINGS: Image quality: Excellent. CSF spaces: Basal cisterns are patent. No extra-axial fluid collections. The ventricles are symmetric in size and shape. Brain: No intracranial bleeds or masses. There is mild cerebral volume loss for age, with resultant ventricular and sulcal prominence. There are mild periventricular and deep white matter chronic small vessel ischemic changes. There is intracranial internal carotid artery atherosclerosis. Skull and face: Calvarium and visualized facial bones appear intact, without suspicious lesions. Sinuses: Visualized sinuses and mastoids are clear. IMPRESSION: 1. No acute intracranial abnormalities. Dictated by: Girish Quezada M.D. on 05/29/2023 at 10:31 Approved by: Girish Quezada M.D. on 05/29/2023 at 10:32
[2023-05-29 11:06] VITALS: BP 169/72; PULSE 58; O2SAT 97
--- NOTE | 2023-05-29 11:08 | ED_ITS ---
HPI - Head Injury <Allan De Luna PA-C - Last Filed: 05/29/23 11:27> General Chief complaint: Head Injury Stated complaint: hit head on blood thinners Time Seen by Provider: 05/29/23 11:02 Source: patient Mode of arrival: Ambulatory History of Present Illness HPI Narrative: 73-year-old female with past medical history dyslipidemia, GERD, migraine, asthma, iron deficiency, chronic kidney disease stage 3, obstructive sleep apnea, paroxysmal AFib, CAD, AAA, CHF presents to the ED status post a head injury sustained last night. Patient states that she was leaning down into a washing machine, when the heavy duty lid came down on her head by accident. Patient did not lose consciousness. Patient is on Eliquis. Patient states that she has a headache and feels nauseous. Patient denies vomiting, chest pain, shortness of breath. Related Data Home Medications Medication Instructions Recorded Confirmed isosorbide mononitrate 60 mg 60 mg PO BID 03/08/19 05/25/23 tablet,extended release 24 hr clopidogrel 75 mg tablet (Plavix) 75 mg PO DAILY 11/28/19 05/25/23 furosemide 20 mg tablet 20 mg PO DAILY 01/10/21 05/25/23 carvedilol 25 mg tablet 50 mg PO QPM 06/01/21 05/25/23 carvedilol 25 mg tablet (Coreg) 37.5 mg PO QAM 06/01/21 05/25/23 ranolazine 500 mg tablet,extended 500 mg PO BID 09/20/21 05/25/23 release,12 hr (Ranexa) apixaban 5 mg tablet (Eliquis) 5 mg PO BID 03/23/22 05/25/23 ResMed AirCurve 04/20/22 05/25/23 hydralazine 10 mg tablet 70 mg PO TID 04/04/23 05/25/23 nitroglycerin 0.4 mg sublingual 0 mg sublingual 05/09/23 05/25/23 tablet (Nitrostat) prazosin 1 mg capsule 0 mg PO 05/09/23 05/25/23 Previous Rx's Medication Instructions Recorded albuterol sulfate 90 mcg/actuation 2 puff inhalation Q4HP PRN 05/23/19 aerosol inhaler (Ventolin HFA) shortness of breath or wheezing #1 inh carisoprodol 350 mg tablet 350 mg PO BEDTIME PRN muscle pain 06/05/22 #30 tabs albuterol sulfate 90 mcg/actuation 2 puff inhalation Q6H PRN 09/08/22 aerosol inhaler shortness of breath or wheezing #8.5 grams hydrocortisone 5 mg tablet 5 mg PO TID #90 tabs 02/20/23 Diovan 160 mg tablet (valsartan) 160 mg PO BID #180 tabs 05/29/23 Allergies Allergy/AdvReac Type Severity Reaction Status Date / Time benazepril [From Lotensin] Allergy Severe angioadema Verified 05/29/23 10:06 adhesive Allergy Mild Verified 05/29/23 10:06 Sulfa (Sulfonamide Allergy Unknown Verified 05/29/23 10:06 Antibiotics) [SULFA (SULFONAMIDE ANTIBIOTICS)] Haemophilus B polysaccharide AdvReac Intermediate YRS AGO Verified 05/29/23 10:06 conj w CAUSED [From TriHIBit] FEVER, RECENTLY MOUTH SORES Beta-Blockers AdvReac Mild LOW Verified 05/29/23 10:06 (Beta-Adrenergic Bloc TOLERANCE - HR IN 30s - HOSPITALIZED diazepam AdvReac Mild OPPOSITE Verified 05/29/23 10:06 EFFECT, BECAME HYPER/INCOMPLIANT--O.K. WITH VERSED diphtheria,pertussis AdvReac Mild YRS AGO Verified 05/29/23 10:06 (acellular),te CAUSED [From TriHIBit] FEVER, RECENTLY MOUTH SORES pseudoephedrine AdvReac Mild INCREASED Verified 05/29/23 10:06 HEART RATE Review of Systems <Allan De Luna PA-C - Last Filed: 05/29/23 11:27> Review of Systems ROS Unobtainable: All systems reviewed & are unremarkable except as noted in HPI and below Constitutional Constitutional: Denies chills, Denies fatigue, Denies fever(s), Denies frequent falls, Reports headache(s), Denies lethargy and Denies weakness Eyes Eyes: Denies change in vision, Denies eye discharge, Denies irritation and Denies loss of vision ENT Ears, Nose, Mouth, and Throat: Denies change in voice, Denies dizziness, Reports headache(s), Denies neck pain, Denies sore throat and Denies throat swelling Cardiovascular Cardiovascular: Denies chest pain, Denies irregular heart rhythm, Denies lightheadedness, Denies palpitations, Denies dyspnea, Denies dyspnea on exertion and Denies orthopnea Respiratory Respiratory: Denies cough, Denies dyspnea, Denies dyspnea on exertion and Denies wheezing Gastrointestinal Gastrointestinal: Denies abdominal pain, Denies change in bowel habits, Denies diarrhea, Reports nausea and Denies vomiting Genitourinary Genitourinary: Denies hematuria, Denies flank pain, Denies urinary incontinence and Denies urinary urgency Musculoskeletal Musculoskeletal: Denies back pain, Denies muscle weakness, Denies neck pain, Denies numbness and Denies tingling Integumentary/Breasts Skin/Breast: Denies pruritus, Denies erythema, Denies rash and Denies wounds Neurologic Neurologic: Denies behavioral changes, Denies confusion, Denies dizziness, Denies frequent falls, Reports headache(s), Denies loss of vision, Denies numbness, Denies tingling and Denies weakness Psychiatric Psychiatric: Denies anxiety, Denies behavioral changes, Denies confusion, Denies depression, Denies homicidal ideation and Denies suicidal ideation Endocrine Endocrine: Denies fatigue, Denies flushing and Denies palpitations Hematologic/Lymphatic Hematologic/Lymphatic: Denies easy bruising Allergic/Immunologic Allergic/Immunologic: Denies urticaria, Denies throat swelling and Denies wheezing Patient History <Allan De Luna PA-C - Last Filed: 05/29/23 11:27> Medical History AAA (abdominal aortic aneurysm) Anemia Angioedema Asthma Atrial fibrillation Atypical nevus of abdominal wall Bone lesion CAD (coronary artery disease) (1979) Cardiac arrhythmia Coccidioidomycosis (~1962) Diastolic heart failure Dyslipidemia EBV infection (~1962) Elevated coronary artery calcium score 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 Hiatal hernia (~11/22/20) History of recurrent pneumonia History of stent insertion of renal artery Hypertension Iron deficiency anemia Left renal artery stenosis (~11/22/20) Lipoma Macular degeneration, age related, nonexudative Melanoma Myocardial infarction due to atherothrombotic coronary artery disease Ocular migraine Osteopenia of femoral neck, bilateral (~02/2019) Paroxysmal atrial fibrillation Parumbilical hernia (~11/22/20) Pressure ulcer, buttock, right, unstageable Prinzmetal's angina (1975) Proteus enteritis (~2018) Renal artery atherosclerosis (09/22/11) Severe obstructive sleep apnea-hypopnea syndrome (10/22/15) Shingles (2017) Shoulder pain Sleep apnea Statin intolerance Stenosis of celiac artery (~11/22/20) Stroke Systemic lupus erythematosus Thyroid nodule Surgical History Anesthesia H/O colonoscopy with polypectomy (~04/2020) History of arthroplasty (12/09/12) History of arthroplasty (01/20/13) History of cataract removal with insertion of prosthetic lens (2014) History of cholecystectomy History of tonsillectomy Stented coronary artery (2013) Family History Father Lung cancer Hypertension Mother Parkinson's disease Breast cancer CAD (coronary artery disease) Brother History of heart disease Social History marital status: household members: friend(s) lives independently: No caregiver/support person: No pets and animals: Yes Smoking Status: Never smoker Smoking Status: Never smoker alcohol intake frequency: holidays/special occasions only Substance Use Type: does not use Exam <Allan De Luna PA-C - Last Filed: 05/29/23 11:27> Narrative Exam Narrative: Const General:?cooperative, healthy appearing and comfortable [facility] Head:?normal to inspection; no hematoma, no skull depressions; skin is intact Ears:?hearing grossly normal bilaterally Nose:?external nose normal Face and sinus:?normal facial exam and sinuses nontender Mouth:?oral mucosae normal Throat:?posterior oropharynx normal Eyes General:?appearance normal, both eyes and all related structures Neck Neck:?normal visual inspection and no lymphadenopathy noted Resp Effort & Inspection:?normal respiratory effort Auscultation:?clear to auscultation bilaterally Cardio Rate:?regular rate Rhythm:?regular rhythm Neuro General:?patient alert, patient awake and patient oriented x3 Initial Vital Signs Initial Vital Signs: Vital Signs Temperature 96.9 F L 05/29/23 10:04 Pulse Rate 67 05/29/23 10:04 Respiratory Rate 15 05/29/23 10:04 Blood Pressure 156/72 H 05/29/23 10:04 Pulse Oximetry 99 05/29/23 10:04 Oxygen Delivery Method Room Air 05/29/23 10:04 <DO Hugh Garcia Last Filed: 05/29/23 19:22> Initial Vital Signs Initial Vital Signs: Vital Signs Temperature 96.9 F L 05/29/23 10:04 Pulse Rate 67 05/29/23 10:04 Respiratory Rate 15 05/29/23 10:04 Blood Pressure 156/72 H 05/29/23 10:04 Pulse Oximetry 99 05/29/23 10:04 Oxygen Delivery Method Room Air 05/29/23 10:04 Course <Allan De Luna PA-C - Last Filed: 05/29/23 11:27> Orders Ordered: ED Orders 05/29/23 10:11 CT head/brain wo con Stat Vital Signs Vital signs: Vital Signs - 8 hr 05/29/23 10:04 05/29/23 11:06 Temperature 96.9 F L Pulse Rate 67 58 L Respiratory Rate 15 Blood Pressure 156/72 H 169/72 H Pulse Oximetry 99 97 Oxygen Delivery Method Room Air Room Air <Jaye Rosado DO - Last Filed: 05/29/23 19:22> Orders Ordered: ED Orders 05/29/23 10:11 CT head/brain wo con Stat Vital Signs Vital signs: Vital Signs - 8 hr 05/29/23 10:04 05/29/23 11:06 Temperature 96.9 F L Pulse Rate 67 58 L Respiratory Rate 15 Blood Pressure 156/72 H 169/72 H Pulse Oximetry 99 97 Oxygen Delivery Method Room Air Room Air MDM - Head Injury <KAN Hardy Last Filed: 05/29/23 11:27> MDM Narrative Medical decision making narrative: 73-year-old female with past medical history dyslipidemia, GERD, migraine, asthma, iron deficiency, chronic kidney disease stage 3, obstructive sleep apnea, paroxysmal AFib, CAD, AAA, CHF presents to the ED status post a head injury sustained last night. Concern for skull fracture versus intracranial hemorrhage versus other. Obtained CT head which showed no acute intracranial abnormalities. In the ED, patient appears stable, complains of a headache and nausea. Patient declined medications for pain or nausea, stating that she has often had adverse effects to medications and is wary of taking any new medications. Patient agrees to take Tylenol if her headache is persistent and bothersome. Counseled patient on possible concussive symptoms and management. Recommend follow-up with PCP. ED return precautions were discussed with patient. Patient verbalized understanding. Medical records reviewed: Yes Discharge Plan Departure Patient Disposition: Home Clinical Impression: Head injury Instructions: Concussion, DI for Closed Head Injury Activity Restrictions/Additional Instructions: You were evaluated for a head injury sustained last night. The head CT was normal. It is possible that you are suffering a concussion which is causing your symptoms such as headache and nausea. You may take Tylenol for your headache. It is common when you suffered a concussion to experience some nausea, sporadic vomiting, headache, neck pain, sleepiness, fatigue, depression, agitation. Please continue to rest well until your symptoms resolve. Please follow-up with your PCP as soon as possible for further evaluation. Return to the ED if you experience persistent vomiting, worsening symptoms. Prescriptions: No Action ranolazine [Ranexa] 500 mg tablet extended release 12 hr 500 mg PO BID carisoprodol 350 mg tablet 350 mg PO BEDTIME PRN (Reason: muscle pain) Qty: 30 0RF valsartan [Diovan] 160 mg tablet 160 mg PO BID Qty: 180 2RF isosorbide mononitrate 60 mg tablet extended release 24 hr 60 mg PO BID Patient Comments: 120 mg qam, 30 mg qpm PO DAILY; hydralazine 10 mg tablet 70 mg PO TID Patient Comments: Rx by nephrology albuterol sulfate 90 mcg/actuation HFA aerosol inhaler 2 puff inhalation Q6H PRN (Reason: shortness of breath or wheezing) Qty: 8.5 0RF albuterol sulfate [Ventolin HFA] 90 mcg/actuation HFA aerosol inhaler 2 puff inhalation Q4HP PRN (Reason: shortness of breath or wheezing) Qty: 1 0RF clopidogrel [Plavix] 75 mg tablet 75 mg PO DAILY furosemide 20 mg tablet 20 mg PO DAILY hydrocortisone 5 mg tablet 5 mg PO TID Qty: 90 1RF nitroglycerin [Nitrostat] 0.4 mg tablet, sublingual 0 mg sublingual prazosin 1 mg capsule 0 mg PO Eliquis 5 mg Tablet 5 mg PO BID carvedilol [Coreg] 25 mg tablet 37.5 mg PO QAM carvedilol 25 mg tablet 50 mg PO QPM (DME) ResMed AirCurve See Rx Instructions .Route .MEDSUPPLY Rx Instructions: BIPAP IPAP: 14 EPAP: 5 PS: 4 DME: [facility] Referrals: La Torres DO [Primary Care Provider] - Stand Alone Forms: Patient Portal/API <Jaye Rosado DO - Last Filed: 05/29/23 19:22> Cosign ED Attending Cosignature Attestation: I was immediately available in the department for consultation. Documentation has been reviewed.
== END 2023-05-29 11:23 | disposition home or self-care (01) ==
PROVIDERS: Emergency Provider Student in an Organized Health Care Education/Training Program; Family Provider Family Medicine; PCP Family Medicine
DX: S09.90XA Unspecified injury of head, initial encounter (principal); R11.0 Nausea; W22.8XXA Striking against or struck by other objects, initial encounter
CPT/HCPCS: 70450; 99281; 99284

== ENCOUNTER 2023-07-19 08:45 | Outpatient (RCR) | payer MEDICARE, BC, SELFPAY ==
[2022-09-08 08:47] VITALS: BMI 42.5
--- NOTE | 2022-12-05 15:36 | PT.OIE ---
Current Diagnoses Other chronic pain (12/05/22) Pain in thoracic spine (12/05/22) Abnormal posture (12/05/22) Weakness (12/05/22) Past Medical History (Last Reviewed 08/28/22 @ 15:01 by Erick Jasso MD) AAA (abdominal aortic aneurysm) Anemia Angioedema Asthma Atrial fibrillation Bone lesion CAD (coronary artery disease) (1979) Cardiac arrhythmia Coccidioidomycosis (~1962) Diastolic heart failure Dyslipidemia EBV infection (~1962) Elevated coronary artery calcium score 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 Hiatal hernia (~11/22/20) History of recurrent pneumonia History of stent insertion of renal artery Hypertension Iron deficiency anemia Kidney failure Left renal artery stenosis (~11/22/20) Macular degeneration, age related, nonexudative Melanoma Myocardial infarction due to atherothrombotic coronary artery disease Ocular migraine Osteopenia of femoral neck, bilateral (~02/2019) Paroxysmal atrial fibrillation Parumbilical hernia (~11/22/20) Pressure ulcer, buttock, right, unstageable Prinzmetal's angina (1975) Proteus enteritis (~2018) Renal artery atherosclerosis (09/22/11) Severe obstructive sleep apnea-hypopnea syndrome (10/22/15) Shingles (2016) Shoulder pain Sleep apnea Statin intolerance Stenosis of celiac artery (~11/22/20) Stroke Systemic lupus erythematosus Thyroid nodule Past Surgical History (Last Reviewed 08/28/22 @ 15:01 by Erick Jasso MD) Anesthesia H/O colonoscopy with polypectomy (~04/2020) History of arthroplasty (12/09/12) History of arthroplasty (01/20/13) History of cataract removal with insertion of prosthetic lens (2014) History of cholecystectomy History of tonsillectomy Stented coronary artery (2013) Visit Care Team Role Provider Type La Elmore DO Attending Provider Physician Family Provider Primary Care Provider Referring Provider Specialty: Medical Address: [address] [place] [address], [address], [address] Email: [email or web address] Physical Therapy Initial Evaluation PT-OP-A Visit Information Start: 12/04/22 16:50 Freq: Status: Active Protocol: Document 12/05/22 09:03 [facility] (Rec: 12/05/22 10:26 [facility] [id number]) Out-Patient Physical Therapy Visit Information Visit Information Visit Type Initial Evaluation Visit Start Time 09:00 Visit Stop Time 10:01 Total Visit Minutes 61 Visit Number 1 Evaluation Information Evaluation Date 12/05/22 PT-OP-B Current Condition Start: 12/04/22 16:50 Freq: Status: Active Protocol: Document 12/05/22 09:03 [facility] (Rec: 12/05/22 10:26 [facility] [id number]) Current Condition History of Current Condition Onset Date 2 years Current Complaints rib pain, IT band pain History of Current Condition thoracic pain between shoulder blades at bra line laterally, posterior ribs, some help with OMT states Dr. Elmore put rib back in place. Has tried to modify activities but persists. Feels best when leans back and pushes body into chair. 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 Doing shoulder blade squeeze, forward bent on ball, LTR. Also c/o excrutiating pain right IT band; has been using tennis ball for self massage. Increase in pain with bending forward, an just be sitting; stabbing pain, also N/T same area. Has gotten a recumbant exercise bike but hasn't used yet per Dr. Elmore telling her she could make IT band pain worse if used bike incorrectly . Will be leaving on December 28 to due to of brother. Prior Treatments and Tests OMT with Dr. Elmore Prior PT with this PT Treatment Goals Patient/Caregiver Goals dec pain, improve posture, strength, dec muscle tension Prior Functional Status Baseline Function- ADL's Modified Independent Baseline Function- Mobility Modified Independent Baseline Function- Gait independnet, slow Current Functional Impairments (Reported) Functional Limitations- ADL's painful Functional Limitations- Mobility/Gait more limited Functional Limitations- Recreation/ unable Hobbies Personal Factors Other Personal Factors That May Effect multiple medical issues Therapy/Recovery life stressors PT-OP-J Posture/Palpation/Skin Start: 12/04/22 16:50 Freq: Status: Active Protocol: Document 12/05/22 09:03 [facility] (Rec: 12/05/22 10:26 [facility] [id number]) Posture Evaluation Position Sitting Head/C-Spine Posture Forward Head T-Spine Posture Increased Kyphosis L-Spine Posture Flattened Shoulder Posture (L) Rounded,(R) Rounded Scapula Posture (L) Protracted,(R) Protracted Arm Posture (L) Internally Rotated,(R) Internally Rotated Palpation Assessment Location mid thoracic Palpation Location luisa T7-T10 Palpation Findings Soft Tissue Tightness, Tenderness right IT band Palpation Findings Soft Tissue Tightness,Muscle Guarding,Tenderness PT-OP-K Range of Motion Start: 12/04/22 16:50 Freq: Status: Active Protocol: Document 12/05/22 09:03 [facility] (Rec: 12/05/22 10:26 [facility] [id number]) Cervical Spine Range of Motion Cervical Spine Active ROM Limitations Soft Tissue Tightness,Pain Comments mod dec all motions Lumbar Spine Range of Motion Lumbar Spine Active ROM Limitations Soft Tissue Tightness,Bony Restriction,Pain Comments mod dec luisa Shoulder Goniometric Range of Motion Shoulder luisa Shoulder ROM WFL Yes Shoulder ROM Limitations Shoulder ROM Limitations Soft Tissue Tightness Comments mod decrease luisa Hip Goniometric Range of Motion Hip Right Hip ROM WFL No Comments mod dec IT band flex with TTP Left Hip ROM WFL Yes Hip ROM Limitations Hip ROM Limitations Soft Tissue Tightness,Muscle Weakness,Pain PT-OP-Q Treatments Start: 12/04/22 16:50 Freq: Status: Active Protocol: Document 12/05/22 09:03 [facility] (Rec: 12/05/22 10:26 [facility] [id number]) Self-Care/Home Management Treatment Education Patient Education Home Exercise Program,Posture Other Education deep breathing for relaxation, sitting and walking without arms clasped. postural correction shoulder blade squeeze PT-OP-R Modalities Start: 12/04/22 16:50 Freq: Status: Active Protocol: Document 12/05/22 09:03 [facility] (Rec: 12/05/22 15:36 [facility] [id number]) Hot Pack/Cold Pack Treatment Hot Pack Location thoracic spine Patient Position Sitting Treatment Duration (minutes) 15 Patient Tolerance Good PT-OP-T Assessment and Plan Start: 12/04/22 16:50 Freq: Status: Active Protocol: Document 12/05/22 09:03 [facility] (Rec: 12/05/22 10:26 [facility] [id number]) Physical Therapy Assessment Rehab Potential Rehabilitation Potential Good Evaluation Complexity Number of Personal Factors/Comorbidities 1-2 Clinical Presentation at Evaluation Evolving Impairments Impairments Activity Tolerance,Pain, Posture,Soft Tissue Mobility, Strength Goals Three Impairment postural dysfunction Impairment moderate to severe inc in kyphosis and protracted scapulas and IR shoulders, moderate fwd head and dowager' s hump. Short Term Goal (STG) patient to be instructed in neutral posture and postural correction exercises, positioning in sitting and in bed for improved postural health STG Duration 01/05/23 Fdc Goal (LTG) Patient to be independent and compliant with HEP including postural correction and demonstrate improved postural awareness at rest and with function LTG Duration 02/04/23 Two Impairment activity tolerance Impairment Constant pain limiting sleep and all physical activity moderately by 75% per patient report Short Term Goal (STG) Patient able to resume 50% usual activities in the home and community due to dec in pain and report ability to sleep for at least 4 hour stretch at a time STG Duration 01/05/23 Fdc Goal (LTG) Patient able to resume 75% usual activities in the home and community due to decrease in pain and report ability to sleep for at least 5-6 hour stretch at a time as measure of improved function LTG Duration 01/05/23 One Impairment pain as high as 8/10 mid thoracic and IT band right Short Term Goal (STG) Patient to report pain no greater than 5/10 with all usual activities STG Duration 01/05/23 Fdc Goal (LTG) Patient to report pain to no greater than 3/10 with all usual activities LTG Duration 02/04/23 Assessment Summary Assessment Patient presents to PT with function-limiting pain in mid thoracic region which appears to be largely due to postural dysfunction including excess thoracic kyphosis with poor postural habits, stress due to of brother and multiple medical issues as well as 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 Postural dysfunction has resulted in significant muscle imbalance complicated by multiple medical issues and stress. Patient also experiencing what she describes as excrutiating pain in her right IT band. No known cause, very tender to the touch with decreased soft tissue mobility, overall generalized weakness and debility due to her medical issues. Feel she would benefit from PT to address pain in both regions, assist with stress reduction techniques, strengthening, flexibility, and postural correction exercises with manual techniqeus and modalities as needed. We discussed POC and she is in agreement. Physical Therapy Plan Frequency and Duration Frequency of Treatment 2x/Week Duration of treatment (weeks) 8 Plan of Care Start Date 12/05/22 Plan of Care End Date 02/04/23 Therapeutic Interventions Therapeutic Interventions Home Exercise Program,Manual Therapy,Orthotic/Prosthetic Management,Patient/Caregiver Education,Self-Care/Home Management,Soft Tissue Mobilization,Taping, Therapeutic Activities, Therapeutic Exercises Modalities Cold Pack/Ice Massage,Electric Stimulation,Hot Packs, Infrared Therapy,Ultrasound Next Visit Focus/Plan Next Note Type Treatment Note Next Visit Plan Postural correction exercises, deep breathing ex, manual therapy to mid thoracic area, kinesiotape to right IT band and mid thoracic reg for muscle relaxation and postural correction respectively.
--- NOTE | 2022-12-05 15:37 | PT.OPPOC ---
Physical, Occupational & Speech Therapy At [facility] Current Diagnoses Other chronic pain (12/05/22) Pain in thoracic spine (12/05/22) Abnormal posture (12/05/22) Weakness (12/05/22) Visit Care Team Role Provider Type La Torres DO Attending Provider Physician Family Provider Primary Care Provider Referring Provider Specialty: Medical Address: [address] [place] [address], [address], [place], [address] Email: [email or web address] Plan Of Care PT-OP-T Assessment and Plan Start: 12/04/22 16:50 Freq: Status: Active Protocol: Document 12/05/22 09:03 BEN (Rec: 12/05/22 10:26 SAK [id number]) Physical Therapy Assessment Rehab Potential Rehabilitation Potential Good Evaluation Complexity Number of Personal Factors/Comorbidities 1-2 Clinical Presentation at Evaluation Evolving Impairments Impairments Activity Tolerance,Pain, Posture,Soft Tissue Mobility, Strength Goals Three Impairment postural dysfunction Impairment moderate to severe inc in kyphosis and protracted scapulas and IR shoulders, moderate fwd head and dowager' s hump. Short Term Goal (STG) patient to be instructed in neutral posture and postural correction exercises, positioning in sitting and in bed for improved postural health STG Duration 01/05/23 Suede Cleaner Goal (LTG) Patient to be independent and compliant with HEP including postural correction and demonstrate improved postural awareness at rest and with function LTG Duration 02/04/23 Two Impairment activity tolerance Impairment Constant pain limiting sleep and all physical activity moderately by 75% per patient report Short Term Goal (STG) Patient able to resume 50% usual activities in the home and community due to dec in pain and report ability to sleep for at least 4 hour stretch at a time STG Duration 01/05/23 Jail Goal (LTG) Patient able to resume 75% usual activities in the home and community due to decrease in pain and report ability to sleep for at least 5-6 hour stretch at a time as measure of improved function LTG Duration 01/05/23 One Impairment pain as high as 8/10 mid thoracic and IT band right Short Term Goal (STG) Patient to report pain no greater than 5/10 with all usual activities STG Duration 01/05/23 Suede Cleaner Goal (LTG) Patient to report pain to no greater than 3/10 with all usual activities LTG Duration 02/04/23 Assessment Summary Assessment Patient presents to PT with function-limiting pain in mid thoracic region which appears to be largely due to postural dysfunction including excess thoracic kyphosis with poor postural habits, stress due to of brother and multiple medical issues as well as 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 Postural dysfunction has resulted in significant muscle imbalance complicated by multiple medical issues and stress. Patient also experiencing what she describes as excrutiating pain in her right IT band. No known cause, very tender to the touch with decreased soft tissue mobility, overall generalized weakness and debility due to her medical issues. Feel she would benefit from PT to address pain in both regions, assist with stress reduction techniques, strengthening, flexibility, and postural correction exercises with manual techniqeus and modalities as needed. We discussed POC and she is in agreement. Physical Therapy Plan Frequency and Duration Frequency of Treatment 2x/Week Duration of treatment (weeks) 8 Plan of Care Start Date 12/05/22 Plan of Care End Date 02/04/23 Therapeutic Interventions Therapeutic Interventions Home Exercise Program,Manual Therapy,Orthotic/Prosthetic Management,Patient/Caregiver Education,Self-Care/Home Management,Soft Tissue Mobilization,Taping, Therapeutic Activities, Therapeutic Exercises Modalities Cold Pack/Ice Massage,Electric Stimulation,Hot Packs, Infrared Therapy,Ultrasound Next Visit Focus/Plan Next Note Type Treatment Note Next Visit Plan Postural correction exercises, deep breathing ex, manual therapy to mid thoracic area, kinesiotape to right IT band and mid thoracic reg for muscle relaxation and postural correction respectively. Plan of Care Dates Plan of Care Start Date 12/05/22 Plan of Care End Date 02/04/23 Electronically Signed by: Luh Weaver, PT 12/05/22 3076 If you are in agreement with this Plan of Care, please return a signed and dated copy. I have reviewed this Plan of Care and certify that the skilled therapy services above are required to meet the patient?s needs. Physician Signature Date Printed Name and Credentials Clinical Instructor Signature Printed Name and Credentials
--- NOTE | 2022-12-07 08:04 | PT-IP ANOTE ---
Patient cancelled due to in ER
--- NOTE | 2022-12-14 16:31 | PT.OTN ---
Current Diagnoses Other chronic pain (12/14/22) Pain in thoracic spine (12/14/22) Abnormal posture (12/14/22) Weakness (12/14/22) Physical Therapy Treatment Note PT-OP-A Visit Information Start: 12/04/22 16:50 Freq: Status: Active Protocol: Document 12/14/22 09:01 [facility] (Rec: 12/14/22 09:47 [facility] [id number]) Out-Patient Physical Therapy Visit Information Visit Information Visit Type Treatment Note Visit Note Missed PT due to Covid, still very fatigued. States obtained noodle day of first visit. Increase soreness due to lots of coughing. Visit Start Time 09:02 Visit Stop Time 10:02 Total Visit Minutes 60 Visit Number 2 Evaluation Information Evaluation Date 12/05/22 PT-OP-B Current Condition Start: 12/04/22 16:50 Freq: Status: Active Protocol: Document 12/14/22 09:01 [facility] (Rec: 12/14/22 09:47 [facility] [id number]) Current Condition History of Current Condition Onset Date 2 years Current Complaints rib pain, IT band pain History of Current Condition thoracic pain between shoulder blades at bra line laterally, posterior ribs, some help with OMT states Dr. Torres put rib back in place. Has tried to modify activities but persists. Feels best when leans back and pushes body into chair. 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 Doing shoulder blade squeeze, forward bent on ball, LTR. Also c/o excrutiating pain right IT band; has been using tennis ball for self massage. Increase in pain with bending forward, an just be sitting; stabbing pain, also N/T same area. Has gotten a recumbant exercise bike but hasn't used yet per Dr. Torres telling her she could make IT band pain worse if used bike incorrectly . Will be leaving on December 28 to due to of brother. Prior Treatments and Tests OMT with Dr. Torres Prior PT with this PT Treatment Goals Patient/Caregiver Goals dec pain, improve posture, strength, dec muscle tension Prior Functional Status Baseline Function- ADL's Modified Independent Baseline Function- Mobility Modified Independent Baseline Function- Gait independnet, slow PT-OP-J Posture/Palpation/Skin Start: 12/04/22 16:50 Freq: Status: Active Protocol: Document 12/05/22 09:03 [facility] (Rec: 12/05/22 10:26 [facility] [id number]) Posture Evaluation Position Sitting Head/C-Spine Posture Forward Head T-Spine Posture Increased Kyphosis L-Spine Posture Flattened Shoulder Posture (L) Rounded,(R) Rounded Scapula Posture (L) Protracted,(R) Protracted Arm Posture (L) Internally Rotated,(R) Internally Rotated Palpation Assessment Location mid thoracic Palpation Location luisa T7-T10 Palpation Findings Soft Tissue Tightness, Tenderness right IT band Palpation Findings Soft Tissue Tightness,Muscle Guarding,Tenderness PT-OP-K Range of Motion Start: 12/04/22 16:50 Freq: Status: Active Protocol: Document 12/05/22 09:03 [facility] (Rec: 12/05/22 10:26 [facility] [id number]) Cervical Spine Range of Motion Cervical Spine Active ROM Limitations Soft Tissue Tightness,Pain Comments mod dec all motions Lumbar Spine Range of Motion Lumbar Spine Active ROM Limitations Soft Tissue Tightness,Bony Restriction,Pain Comments mod dec luisa Shoulder Goniometric Range of Motion Shoulder luisa Shoulder ROM WFL Yes Shoulder ROM Limitations Shoulder ROM Limitations Soft Tissue Tightness Comments mod decrease luisa Hip Goniometric Range of Motion Hip Right Hip ROM WFL No Comments mod dec IT band flex with TTP Left Hip ROM WFL Yes Hip ROM Limitations Hip ROM Limitations Soft Tissue Tightness,Muscle Weakness,Pain PT-OP-Q Treatments Start: 12/04/22 16:50 Freq: Status: Active Protocol: Document 12/14/22 09:01 [facility] (Rec: 12/14/22 09:47 [facility] [id number]) Cardio Equipment Recumbent Stepper (Sci-Fit) Duration (Minutes) 5 Resistance 1 Seat Position 10 Other RPM 20 Therapeutic Exercises Sitting Exercises deep breathing Reps/Minutes 5x Comments cues for abdominal and lateral ribcage breathing Standing Exercises shoulder ext Equipment Used L1 TB Reps/Minutes 5x Comments stopped due to fatigue row Equipment Used L1 TB Reps/Minutes 10x Manual Therapy Treatment Soft Tissue Mobilization UT, thoracic paraspinals, periscapular mm Intensity/Depth Moderate Body Position Sitting Comments prone pillow Self-Care/Home Management Treatment Education Patient Education Home Exercise Program,Posture Other Education deep breathing for relaxation, sitting and walking without arms clasped. postural correction shoulder blade squeeze PT-OP-R Modalities Start: 12/04/22 16:50 Freq: Status: Active Protocol: Document 12/14/22 09:01 [facility] (Rec: 12/14/22 09:47 [facility] [id number]) Hot Pack/Cold Pack Treatment Hot Pack Location thoracic spine, c/s Patient Position Sitting Treatment Duration (minutes) 15 Patient Tolerance Good PT-OP-T Assessment and Plan Start: 12/04/22 16:50 Freq: Status: Active Protocol: Document 12/14/22 09:01 [facility] (Rec: 12/14/22 09:47 [facility] [id number]) Physical Therapy Assessment Goals Three Impairment postural dysfunction Impairment moderate to severe inc in kyphosis and protracted scapulas and IR shoulders, moderate fwd head and dowager' s hump. Short Term Goal (STG) patient to be instructed in neutral posture and postural correction exercises, positioning in sitting and in bed for improved postural health STG Duration 01/05/23 Brick Unloader Tender Goal (LTG) Patient to be independent and compliant with HEP including postural correction and demonstrate improved postural awareness at rest and with function LTG Duration 02/04/23 Two Impairment activity tolerance Impairment Constant pain limiting sleep and all physical activity moderately by 75% per patient report Short Term Goal (STG) Patient able to resume 50% usual activities in the home and community due to dec in pain and report ability to sleep for at least 4 hour stretch at a time STG Duration 01/05/23 Brick Unloader Tender Goal (LTG) Patient able to resume 75% usual activities in the home and community due to decrease in pain and report ability to sleep for at least 5-6 hour stretch at a time as measure of improved function LTG Duration 01/05/23 One Impairment pain as high as 8/10 mid thoracic and IT band right Short Term Goal (STG) Patient to report pain no greater than 5/10 with all usual activities STG Duration 01/05/23 Senior Living Goal (LTG) Patient to report pain to no greater than 3/10 with all usual activities LTG Duration 02/04/23 Assessment Summary Assessment Increased tightness UT, periscapular region. Decreased pain after treatment . Continue education for postural correction. Physical Therapy Plan Frequency and Duration Frequency of Treatment 2x/Week Duration of treatment (weeks) 8 Plan of Care Start Date 12/05/22 Plan of Care End Date 02/04/23 Therapeutic Interventions Therapeutic Interventions Home Exercise Program,Manual Therapy,Orthotic/Prosthetic Management,Patient/Caregiver Education,Self-Care/Home Management,Soft Tissue Mobilization,Taping, Therapeutic Activities, Therapeutic Exercises Modalities Cold Pack/Ice Massage,Electric Stimulation,Hot Packs, Infrared Therapy,Ultrasound Next Visit Focus/Plan Next Note Type Treatment Note Next Visit Plan Postural correction exercises, deep breathing ex, manual therapy to mid thoracic area, kinesiotape to right IT band and mid thoracic reg for muscle relaxation and postural correction respectively.
--- NOTE | 2022-12-19 16:49 | PT.OTN ---
Current Diagnoses Other chronic pain (12/19/22) Pain in thoracic spine (12/19/22) Abnormal posture (12/19/22) Weakness (12/19/22) Physical Therapy Treatment Note PT-OP-A Visit Information Start: 12/04/22 16:50 Freq: Status: Active Protocol: Document 12/19/22 09:03 [facility] (Rec: 12/19/22 09:51 [facility] [id number]) Out-Patient Physical Therapy Visit Information Visit Information Visit Type Treatment Note Visit Note new referral for IT band Visit Start Time 09:02 Visit Stop Time 10:00 Total Visit Minutes 58 Visit Number 3 Evaluation Information Evaluation Date 12/05/22 PT-OP-B Current Condition Start: 12/04/22 16:50 Freq: Status: Active Protocol: Document 12/19/22 09:03 [facility] (Rec: 12/19/22 09:51 [facility] [id number]) Current Condition History of Current Condition Onset Date 2 years Current Complaints rib pain, IT band pain History of Current Condition thoracic pain between shoulder blades at bra line laterally, posterior ribs, some help with OMT states Dr. Torres put rib back in place. Has tried to modify activities but persists. Feels best when leans back and pushes body into chair. 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 Doing shoulder blade squeeze, forward bent on ball, LTR. Also c/o excrutiating pain right IT band; has been using tennis ball for self massage. Increase in pain with bending forward, an just be sitting; stabbing pain, also N/T same area. Has gotten a recumbant exercise bike but hasn't used yet per Dr. Torres telling her she could make IT band pain worse if used bike incorrectly . Will be leaving on December 28 to due to of brother. Prior Treatments and Tests OMT with Dr. Torres Prior PT with this PT Treatment Goals Patient/Caregiver Goals dec pain, improve posture, strength, dec muscle tension Prior Functional Status Baseline Function- ADL's Modified Independent Baseline Function- Mobility Modified Independent Baseline Function- Gait independnet, slow PT-OP-J Posture/Palpation/Skin Start: 12/04/22 16:50 Freq: Status: Active Protocol: Document 12/05/22 09:03 [facility] (Rec: 12/05/22 10:26 [facility] [id number]) Posture Evaluation Position Sitting Head/C-Spine Posture Forward Head T-Spine Posture Increased Kyphosis L-Spine Posture Flattened Shoulder Posture (L) Rounded,(R) Rounded Scapula Posture (L) Protracted,(R) Protracted Arm Posture (L) Internally Rotated,(R) Internally Rotated Palpation Assessment Location mid thoracic Palpation Location luisa T7-T10 Palpation Findings Soft Tissue Tightness, Tenderness right IT band Palpation Findings Soft Tissue Tightness,Muscle Guarding,Tenderness PT-OP-K Range of Motion Start: 12/04/22 16:50 Freq: Status: Active Protocol: Document 12/05/22 09:03 [facility] (Rec: 12/05/22 10:26 [facility] [id number]) Cervical Spine Range of Motion Cervical Spine Active ROM Limitations Soft Tissue Tightness,Pain Comments mod dec all motions Lumbar Spine Range of Motion Lumbar Spine Active ROM Limitations Soft Tissue Tightness,Bony Restriction,Pain Comments mod dec luisa Shoulder Goniometric Range of Motion Shoulder luisa Shoulder ROM WFL Yes Shoulder ROM Limitations Shoulder ROM Limitations Soft Tissue Tightness Comments mod decrease luisa Hip Goniometric Range of Motion Hip Right Hip ROM WFL No Comments mod dec IT band flex with TTP Left Hip ROM WFL Yes Hip ROM Limitations Hip ROM Limitations Soft Tissue Tightness,Muscle Weakness,Pain PT-OP-Q Treatments Start: 12/04/22 16:50 Freq: Status: Active Protocol: Document 12/19/22 09:03 [facility] (Rec: 12/19/22 09:51 [facility] [id number]) Cardio Equipment Recumbent Stepper (Sci-Fit) Duration (Minutes) 8 Resistance 1.5 Seat Position 10 Other RPM 40-47 Therapeutic Exercises Supine Exercises IT band stretch Reps/Minutes 2x30 with strap Sitting Exercises IT band stretch Equipment Used stool Reps/Minutes 2x30 deep breathing Reps/Minutes 5x Comments cues for abdominal and lateral ribcage breathing Standing Exercises shoulder ext Equipment Used L1 TB Reps/Minutes 5x Comments stopped due to fatigue row Equipment Used L1 TB Reps/Minutes 10x Manual Therapy Treatment Soft Tissue Mobilization UT, thoracic paraspinals, periscapular mm Intensity/Depth Moderate Body Position Sitting Comments prone pillow Taping thoracic spine Body Location next session right IT band Treatment Focus inhibition Type of Tape Kinesio Tape Skin Inspection intact Comments 2 I strips Self-Care/Home Management Treatment Education Patient Education Home Exercise Program,Posture Other Education deep breathing for relaxation, sitting and walking without arms clasped. postural correction shoulder blade squeeze PT-OP-R Modalities Start: 12/04/22 16:50 Freq: Status: Active Protocol: Document 12/19/22 09:03 [facility] (Rec: 12/19/22 09:51 [facility] [id number]) Hot Pack/Cold Pack Treatment Hot Pack Location thoracic spine, c/s, IT band Patient Position Sitting Treatment Duration (minutes) 15 Patient Tolerance Good PT-OP-T Assessment and Plan Start: 12/04/22 16:50 Freq: Status: Active Protocol: Document 12/19/22 09:03 [facility] (Rec: 12/19/22 09:51 [facility] [id number]) Physical Therapy Assessment Goals Three Impairment postural dysfunction Impairment moderate to severe inc in kyphosis and protracted scapulas and IR shoulders, moderate fwd head and dowager' s hump. Short Term Goal (STG) patient to be instructed in neutral posture and postural correction exercises, positioning in sitting and in bed for improved postural health STG Duration 01/05/23 [facility] Goal (LTG) Patient to be independent and compliant with HEP including postural correction and demonstrate improved postural awareness at rest and with function LTG Duration 02/04/23 Two Impairment activity tolerance Impairment Constant pain limiting sleep and all physical activity moderately by 75% per patient report Short Term Goal (STG) Patient able to resume 50% usual activities in the home and community due to dec in pain and report ability to sleep for at least 4 hour stretch at a time STG Duration 01/05/23 [facility] Goal (LTG) Patient able to resume 75% usual activities in the home and community due to decrease in pain and report ability to sleep for at least 5-6 hour stretch at a time as measure of improved function LTG Duration 01/05/23 One Impairment pain as high as 8/10 mid thoracic and IT band right Short Term Goal (STG) Patient to report pain no greater than 5/10 with all usual activities STG Duration 01/05/23 Beater Room Supervisor Goal (LTG) Patient to report pain to no greater than 3/10 with all usual activities LTG Duration 02/04/23 Assessment Summary Assessment c/o electric shock pains right IT band with extreme TTP, it 's taken over my body. Unpredictable, shooting pains into pressley. States using heat. Physical Therapy Plan Frequency and Duration Frequency of Treatment 2x/Week Duration of treatment (weeks) 8 Plan of Care Start Date 12/05/22 Plan of Care End Date 02/04/23 Therapeutic Interventions Therapeutic Interventions Home Exercise Program,Manual Therapy,Orthotic/Prosthetic Management,Patient/Caregiver Education,Self-Care/Home Management,Soft Tissue Mobilization,Taping, Therapeutic Activities, Therapeutic Exercises Modalities Cold Pack/Ice Massage,Electric Stimulation,Hot Packs, Infrared Therapy,Ultrasound Next Visit Focus/Plan Next Note Type Treatment Note Next Visit Plan Hip abduction, clamshells, glut sets, ball squeeze ex for hip strengthening. Sitting ex as much as possible due to poor mesha for supine or s/l. Gentle STM right ITB.
--- NOTE | 2022-12-26 17:10 | PT.OTN ---
Current Diagnoses Other chronic pain (12/26/22) Pain in thoracic spine (12/26/22) Abnormal posture (12/26/22) Weakness (12/26/22) Physical Therapy Treatment Note PT-OP-A Visit Information Start: 12/04/22 16:50 Freq: Status: Active Protocol: Document 12/26/22 09:08 [facility] (Rec: 12/26/22 09:48 [facility] [id number]) Out-Patient Physical Therapy Visit Information Visit Information Visit Type Treatment Note Visit Note Liked kinesiotape on IT band, much less pain, surprised. Pain increased after taking tape off. Improved upper back pain, has to be very careful with posture. Visit Start Time 09:02 Visit Stop Time 10:00 Total Visit Minutes 58 Visit Number 4 Evaluation Information Evaluation Date 12/05/22 PT-OP-B Current Condition Start: 12/04/22 16:50 Freq: Status: Active Protocol: Document 12/26/22 09:08 [facility] (Rec: 12/26/22 09:48 [facility] [id number]) Current Condition History of Current Condition Onset Date 2 years Current Complaints rib pain, IT band pain History of Current Condition thoracic pain between shoulder blades at bra line laterally, posterior ribs, some help with OMT states Dr. Torres put rib back in place. Has tried to modify activities but persists. Feels best when leans back and pushes body into chair. 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 Doing shoulder blade squeeze, forward bent on ball, LTR. Also c/o excrutiating pain right IT band; has been using tennis ball for self massage. Increase in pain with bending forward, an just be sitting; stabbing pain, also N/T same area. Has gotten a recumbant exercise bike but hasn't used yet per Dr. Torres telling her she could make IT band pain worse if used bike incorrectly . Will be leaving on December 28 to due to of brother. Prior Treatments and Tests OMT with Dr. Torres Prior PT with this PT Treatment Goals Patient/Caregiver Goals dec pain, improve posture, strength, dec muscle tension Prior Functional Status Baseline Function- ADL's Modified Independent Baseline Function- Mobility Modified Independent Baseline Function- Gait independnet, slow PT-OP-J Posture/Palpation/Skin Start: 12/04/22 16:50 Freq: Status: Active Protocol: Document 12/05/22 09:03 [facility] (Rec: 12/05/22 10:26 [facility] [id number]) Posture Evaluation Position Sitting Head/C-Spine Posture Forward Head T-Spine Posture Increased Kyphosis L-Spine Posture Flattened Shoulder Posture (L) Rounded,(R) Rounded Scapula Posture (L) Protracted,(R) Protracted Arm Posture (L) Internally Rotated,(R) Internally Rotated Palpation Assessment Location mid thoracic Palpation Location luisa T7-T10 Palpation Findings Soft Tissue Tightness, Tenderness right IT band Palpation Findings Soft Tissue Tightness,Muscle Guarding,Tenderness PT-OP-K Range of Motion Start: 12/04/22 16:50 Freq: Status: Active Protocol: Document 12/05/22 09:03 [facility] (Rec: 12/05/22 10:26 [facility] [id number]) Cervical Spine Range of Motion Cervical Spine Active ROM Limitations Soft Tissue Tightness,Pain Comments mod dec all motions Lumbar Spine Range of Motion Lumbar Spine Active ROM Limitations Soft Tissue Tightness,Bony Restriction,Pain Comments mod dec luisa Shoulder Goniometric Range of Motion Shoulder luisa Shoulder ROM WFL Yes Shoulder ROM Limitations Shoulder ROM Limitations Soft Tissue Tightness Comments mod decrease luisa Hip Goniometric Range of Motion Hip Right Hip ROM WFL No Comments mod dec IT band flex with TTP Left Hip ROM WFL Yes Hip ROM Limitations Hip ROM Limitations Soft Tissue Tightness,Muscle Weakness,Pain PT-OP-Q Treatments Start: 12/04/22 16:50 Freq: Status: Active Protocol: Document 12/26/22 09:08 [facility] (Rec: 12/26/22 09:48 [facility] [id number]) Cardio Equipment Recumbent Stepper (Sci-Fit) Duration (Minutes) 8 Resistance 1.5 Seat Position 10 Other RPM 40-47 Therapeutic Exercises Supine Exercises HS stretch Reps/Minutes 2x30 IT band stretch Reps/Minutes 2x30 with strap Sitting Exercises seated clam Resistance L2 TB Reps/Minutes 10x IT band stretch Equipment Used stool Reps/Minutes 2x30 deep breathing Reps/Minutes 5x Comments cues for abdominal and lateral ribcage breathing Standing Exercises shoulder ext Equipment Used L1 TB Reps/Minutes 5x Comments stopped due to fatigue row Equipment Used L1 TB Reps/Minutes 10x Manual Therapy Treatment Soft Tissue Mobilization UT, thoracic paraspinals, periscapular mm Intensity/Depth Moderate Body Position Sitting Comments prone pillow Taping thoracic spine Body Location braline thoracic space correction X with 2 I strips Treatment Focus pain relief Type of Tape kinesiotap Skin Inspection intact right IT band Treatment Focus inhibition Type of Tape Kinesio Tape Skin Inspection intact Comments 2 I strips Self-Care/Home Management Treatment Education Patient Education Home Exercise Program,Posture Other Education deep breathing for relaxation, sitting and walking without arms clasped. postural correction shoulder blade squeeze PT-OP-R Modalities Start: 12/04/22 16:50 Freq: Status: Active Protocol: Document 12/26/22 09:08 [facility] (Rec: 12/26/22 09:48 [facility] [id number]) Hot Pack/Cold Pack Treatment Hot Pack Location thoracic spine, c/s, IT band Patient Position Sitting Treatment Duration (minutes) 15 Patient Tolerance Good PT-OP-T Assessment and Plan Start: 12/04/22 16:50 Freq: Status: Active Protocol: Document 12/26/22 09:08 [facility] (Rec: 12/26/22 09:48 [facility] [id number]) Physical Therapy Assessment Goals Three Impairment postural dysfunction Impairment moderate to severe inc in kyphosis and protracted scapulas and IR shoulders, moderate fwd head and dowager' s hump. Short Term Goal (STG) patient to be instructed in neutral posture and postural correction exercises, positioning in sitting and in bed for improved postural health STG Duration 01/05/23 Assignment Clerk Goal (LTG) Patient to be independent and compliant with HEP including postural correction and demonstrate improved postural awareness at rest and with function LTG Duration 02/04/23 Two Impairment activity tolerance Impairment Constant pain limiting sleep and all physical activity moderately by 75% per patient report Short Term Goal (STG) Patient able to resume 50% usual activities in the home and community due to dec in pain and report ability to sleep for at least 4 hour stretch at a time STG Duration 01/05/23 Assignment Clerk Goal (LTG) Patient able to resume 75% usual activities in the home and community due to decrease in pain and report ability to sleep for at least 5-6 hour stretch at a time as measure of improved function LTG Duration 01/05/23 One Impairment pain as high as 8/10 mid thoracic and IT band right Short Term Goal (STG) Patient to report pain no greater than 5/10 with all usual activities STG Duration 01/05/23 [facility] Goal (LTG) Patient to report pain to no greater than 3/10 with all usual activities LTG Duration 02/04/23 Assessment Summary Assessment Good response to kinesitape to IT band, retaped and patient instructed in self-taping for while on vacation. Instructed in removing after 5 days max. Patient dmeonstrated good understanding. Cont cues for postural correction. Reviewed IT band stretch for best performance. Physical Therapy Plan Frequency and Duration Frequency of Treatment 2x/Week Duration of treatment (weeks) 8 Plan of Care Start Date 12/05/22 Plan of Care End Date 02/04/23 Therapeutic Interventions Therapeutic Interventions Home Exercise Program,Manual Therapy,Orthotic/Prosthetic Management,Patient/Caregiver Education,Self-Care/Home Management,Soft Tissue Mobilization,Taping, Therapeutic Activities, Therapeutic Exercises Modalities Cold Pack/Ice Massage,Electric Stimulation,Hot Packs, Infrared Therapy,Ultrasound Next Visit Focus/Plan Next Note Type Treatment Note Next Visit Plan Patient to be gone 2 weeks to [place]. Assess response to kinesiotape thoracic spine and patient self-taping for IT band. Continue progression of ther ex, manual, modalities PRN.
--- NOTE | 2023-01-09 09:47 | PT.OTN ---
Current Diagnoses Other chronic pain (01/09/23) Pain in thoracic spine (01/09/23) Abnormal posture (01/09/23) Weakness (01/09/23) Physical Therapy Treatment Note PT-OP-A Visit Information Start: 12/04/22 16:50 Freq: Status: Active Protocol: Document 01/09/23 08:57 [facility] (Rec: 01/09/23 09:47 [facility] [id number]) Out-Patient Physical Therapy Visit Information Visit Information Visit Type Treatment Note Visit Note Increased pain after stressful trip after of brother. Doesn't feel over Covid. Increased pain after helping sister in law sort through things. States kinesiotape very helpful both thoracic spine and IT band. Visit Start Time 08:58 Visit Stop Time 09:55 Total Visit Minutes 57 Visit Number 5 PT-OP-B Current Condition Start: 12/04/22 16:50 Freq: Status: Active Protocol: Document 01/09/23 08:57 [facility] (Rec: 01/09/23 09:47 [facility] [id number]) Current Condition History of Current Condition Onset Date 2 years Current Complaints rib pain, IT band pain History of Current Condition thoracic pain between shoulder blades at bra line laterally, posterior ribs, some help with OMT states Dr. Torres put rib back in place. Has tried to modify activities but persists. Feels best when leans back and pushes body into chair. 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 Doing shoulder blade squeeze, forward bent on ball, LTR. Also c/o excrutiating pain right IT band; has been using tennis ball for self massage. Increase in pain with bending forward, an just be sitting; stabbing pain, also N/T same area. Has gotten a recumbant exercise bike but hasn't used yet per Dr. Torres telling her she could make IT band pain worse if used bike incorrectly . Will be leaving on December 28 to due to of brother. Prior Treatments and Tests OMT with Dr. Torres Prior PT with this PT Treatment Goals Patient/Caregiver Goals dec pain, improve posture, strength, dec muscle tension PT-OP-J Posture/Palpation/Skin Start: 12/04/22 16:50 Freq: Status: Active Protocol: Document 12/05/22 09:03 [facility] (Rec: 12/05/22 10:26 [facility] [id number]) Posture Evaluation Position Sitting Head/C-Spine Posture Forward Head T-Spine Posture Increased Kyphosis L-Spine Posture Flattened Shoulder Posture (L) Rounded,(R) Rounded Scapula Posture (L) Protracted,(R) Protracted Arm Posture (L) Internally Rotated,(R) Internally Rotated Palpation Assessment Location mid thoracic Palpation Location luisa T7-T10 Palpation Findings Soft Tissue Tightness, Tenderness right IT band Palpation Findings Soft Tissue Tightness,Muscle Guarding,Tenderness PT-OP-K Range of Motion Start: 12/04/22 16:50 Freq: Status: Active Protocol: Document 12/05/22 09:03 [facility] (Rec: 12/05/22 10:26 [facility] [id number]) Cervical Spine Range of Motion Cervical Spine Active ROM Limitations Soft Tissue Tightness,Pain Comments mod dec all motions Lumbar Spine Range of Motion Lumbar Spine Active ROM Limitations Soft Tissue Tightness,Bony Restriction,Pain Comments mod dec luisa Shoulder Goniometric Range of Motion Shoulder luisa Shoulder ROM WFL Yes Shoulder ROM Limitations Shoulder ROM Limitations Soft Tissue Tightness Comments mod decrease luisa Hip Goniometric Range of Motion Hip Right Hip ROM WFL No Comments mod dec IT band flex with TTP Left Hip ROM WFL Yes Hip ROM Limitations Hip ROM Limitations Soft Tissue Tightness,Muscle Weakness,Pain PT-OP-Q Treatments Start: 12/04/22 16:50 Freq: Status: Active Protocol: Document 01/09/23 08:57 [facility] (Rec: 01/09/23 09:47 [facility] [id number]) Cardio Equipment Recumbent Stepper (Sci-Fit) Duration (Minutes) 10 Resistance 1-2 Seat Position 10 Other RPM 40-47 Manual Therapy Treatment Soft Tissue Mobilization UT, thoracic paraspinals, periscapular mm Intensity/Depth Moderate Body Position Sitting Comments prone pillow Taping thoracic spine Body Location braline thoracic space correction X with 2 I strips Treatment Focus pain relief Type of Tape kinesiotap Skin Inspection intact right IT band Treatment Focus inhibition Type of Tape Kinesio Tape Skin Inspection intact Comments 2 I strips Self-Care/Home Management Treatment Education Patient Education Home Exercise Program,Posture Other Education Inc compliance to HEP now returned from difficult trip PT-OP-R Modalities Start: 12/04/22 16:50 Freq: Status: Active Protocol: Document 01/09/23 08:57 [facility] (Rec: 01/09/23 09:47 [facility] [id number]) Hot Pack/Cold Pack Treatment Hot Pack Location thoracic spine, c/s, IT band Patient Position Sitting Treatment Duration (minutes) 15 Patient Tolerance Good PT-OP-T Assessment and Plan Start: 12/04/22 16:50 Freq: Status: Active Protocol: Document 01/09/23 08:57 [facility] (Rec: 01/09/23 09:47 [facility] [id number]) Physical Therapy Assessment Goals Three Impairment postural dysfunction Impairment moderate to severe inc in kyphosis and protracted scapulas and IR shoulders, moderate fwd head and dowager' s hump. Short Term Goal (STG) patient to be instructed in neutral posture and postural correction exercises, positioning in sitting and in bed for improved postural health STG Duration 01/05/23 Retirement Goal (LTG) Patient to be independent and compliant with HEP including postural correction and demonstrate improved postural awareness at rest and with function LTG Duration 02/04/23 Two Impairment activity tolerance Impairment Constant pain limiting sleep and all physical activity moderately by 75% per patient report Short Term Goal (STG) Patient able to resume 50% usual activities in the home and community due to dec in pain and report ability to sleep for at least 4 hour stretch at a time STG Duration 01/05/23 Chicken Boner Goal (LTG) Patient able to resume 75% usual activities in the home and community due to decrease in pain and report ability to sleep for at least 5-6 hour stretch at a time as measure of improved function LTG Duration 01/05/23 One Impairment pain as high as 8/10 mid thoracic and IT band right Short Term Goal (STG) Patient to report pain no greater than 5/10 with all usual activities STG Duration 01/05/23 Chicken Boner Goal (LTG) Patient to report pain to no greater than 3/10 with all usual activities LTG Duration 02/04/23 Assessment Summary Assessment Patient with inc soreness after stressful trip, physically lifting things, not compliant to HEP. Continued stress on postural correction. REspnds well to kinesiotape. Physical Therapy Plan Frequency and Duration Frequency of Treatment 2x/Week Duration of treatment (weeks) 8 Plan of Care Start Date 12/05/22 Plan of Care End Date 02/04/23 Therapeutic Interventions Therapeutic Interventions Home Exercise Program,Manual Therapy,Orthotic/Prosthetic Management,Patient/Caregiver Education,Self-Care/Home Management,Soft Tissue Mobilization,Taping, Therapeutic Activities, Therapeutic Exercises Modalities Cold Pack/Ice Massage,Electric Stimulation,Hot Packs, Infrared Therapy,Ultrasound Next Visit Focus/Plan Next Note Type Treatment Note Next Visit Plan Continue PT for postural correction, strengthening, pain management
--- NOTE | 2023-01-10 16:12 | PT.OTN ---
Current Diagnoses Other chronic pain (01/10/23) Pain in thoracic spine (01/10/23) Abnormal posture (01/10/23) Weakness (01/10/23) Physical Therapy Treatment Note PT-OP-A Visit Information Start: 12/04/22 16:50 Freq: Status: Active Protocol: Document 01/10/23 14:32 [facility] (Rec: 01/10/23 15:20 [facility] [id number]) Out-Patient Physical Therapy Visit Information Visit Information Visit Type Treatment Note Visit Note Going to cancel pain doctor appointment. Worst pain today is at braline, struggling with post-Covid fatigue and SOB. Visit Start Time 14:30 Visit Stop Time 15:28 Total Visit Minutes 58 Visit Number 6 PT-OP-B Current Condition Start: 12/04/22 16:50 Freq: Status: Active Protocol: Document 01/10/23 14:32 [facility] (Rec: 01/10/23 15:20 [facility] [id number]) Current Condition History of Current Condition Onset Date 2 years Current Complaints rib pain, IT band pain History of Current Condition thoracic pain between shoulder blades at bra line laterally, posterior ribs, some help with OMT states Dr. Torres put rib back in place. Has tried to modify activities but persists. Feels best when leans back and pushes body into chair. 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 Doing shoulder blade squeeze, forward bent on ball, LTR. Also c/o excrutiating pain right IT band; has been using tennis ball for self massage. Increase in pain with bending forward, an just be sitting; stabbing pain, also N/T same area. Has gotten a recumbant exercise bike but hasn't used yet per Dr. Torres telling her she could make IT band pain worse if used bike incorrectly . Will be leaving on December 28 to due to of brother. Prior Treatments and Tests OMT with Dr. Torres Prior PT with this PT Treatment Goals Patient/Caregiver Goals dec pain, improve posture, strength, dec muscle tension Prior Functional Status Baseline Function- ADL's Modified Independent Baseline Function- Mobility Modified Independent Baseline Function- Gait independnet, slow PT-OP-J Posture/Palpation/Skin Start: 12/04/22 16:50 Freq: Status: Active Protocol: Document 12/05/22 09:03 [facility] (Rec: 12/05/22 10:26 [facility] [id number]) Posture Evaluation Position Sitting Head/C-Spine Posture Forward Head T-Spine Posture Increased Kyphosis L-Spine Posture Flattened Shoulder Posture (L) Rounded,(R) Rounded Scapula Posture (L) Protracted,(R) Protracted Arm Posture (L) Internally Rotated,(R) Internally Rotated Palpation Assessment Location mid thoracic Palpation Location luisa T7-T10 Palpation Findings Soft Tissue Tightness, Tenderness right IT band Palpation Findings Soft Tissue Tightness,Muscle Guarding,Tenderness PT-OP-K Range of Motion Start: 12/04/22 16:50 Freq: Status: Active Protocol: Document 12/05/22 09:03 [facility] (Rec: 12/05/22 10:26 [facility] [id number]) Cervical Spine Range of Motion Cervical Spine Active ROM Limitations Soft Tissue Tightness,Pain Comments mod dec all motions Lumbar Spine Range of Motion Lumbar Spine Active ROM Limitations Soft Tissue Tightness,Bony Restriction,Pain Comments mod dec luisa Shoulder Goniometric Range of Motion Shoulder luisa Shoulder ROM WFL Yes Shoulder ROM Limitations Shoulder ROM Limitations Soft Tissue Tightness Comments mod decrease luisa Hip Goniometric Range of Motion Hip Right Hip ROM WFL No Comments mod dec IT band flex with TTP Left Hip ROM WFL Yes Hip ROM Limitations Hip ROM Limitations Soft Tissue Tightness,Muscle Weakness,Pain PT-OP-Q Treatments Start: 12/04/22 16:50 Freq: Status: Active Protocol: Document 01/10/23 14:32 [facility] (Rec: 01/10/23 15:20 [facility] [id number]) Cardio Equipment Recumbent Stepper (Sci-Fit) Duration (Minutes) 14 Resistance 1-2 Seat Position 12 Other RPM 40-80 Therapeutic Exercises Sitting Exercises scapular retraction Sitting Exercise Name passive>AAROM>AROM Reps/Minutes 10 min Standing Exercises doorway stretch Reps/Minutes 2x10 shoulder ext Equipment Used L1 TB Reps/Minutes 10x Comments verbal and tactile cues row Equipment Used L1 TB Reps/Minutes 10x Comments verbal and tactile cues Manual Therapy Treatment Soft Tissue Mobilization IT band Intensity/Depth Moderate Body Position Sitting UT, thoracic paraspinals, periscapular mm Intensity/Depth Moderate Body Position Sitting Self-Care/Home Management Treatment Education Patient Education Home Exercise Program,Posture Other Education Don't expect to inc activity level too quickly after Covid. Cues for safe use of recumbant ex bike PT-OP-R Modalities Start: 12/04/22 16:50 Freq: Status: Active Protocol: Document 01/10/23 14:32 [facility] (Rec: 01/10/23 15:20 [facility] [id number]) Hot Pack/Cold Pack Treatment Hot Pack Location thoracic spine, c/s, IT band R Patient Position Sitting Treatment Duration (minutes) 15 Patient Tolerance Good PT-OP-T Assessment and Plan Start: 12/04/22 16:50 Freq: Status: Active Protocol: Document 01/10/23 14:32 [facility] (Rec: 01/10/23 15:20 [facility] [id number]) Physical Therapy Assessment Goals Three Impairment postural dysfunction Impairment moderate to severe inc in kyphosis and protracted scapulas and IR shoulders, moderate fwd head and dowager' s hump. Short Term Goal (STG) patient to be instructed in neutral posture and postural correction exercises, positioning in sitting and in bed for improved postural health STG Duration 01/05/23 Detention Goal (LTG) Patient to be independent and compliant with HEP including postural correction and demonstrate improved postural awareness at rest and with function LTG Duration 02/04/23 Two Impairment activity tolerance Impairment Constant pain limiting sleep and all physical activity moderately by 75% per patient report Short Term Goal (STG) Patient able to resume 50% usual activities in the home and community due to dec in pain and report ability to sleep for at least 4 hour stretch at a time STG Duration 01/05/23 Hr Assistant Goal (LTG) Patient able to resume 75% usual activities in the home and community due to decrease in pain and report ability to sleep for at least 5-6 hour stretch at a time as measure of improved function LTG Duration 01/05/23 One Impairment pain as high as 8/10 mid thoracic and IT band right Short Term Goal (STG) Patient to report pain no greater than 5/10 with all usual activities STG Duration 01/05/23 Hr Assistant Goal (LTG) Patient to report pain to no greater than 3/10 with all usual activities LTG Duration 02/04/23 Assessment Summary Assessment Hunter inc time on Sci-Fit. Improved performance of row and sh ext, scap retraction with cues today. No KT tape due to still intact. Manual to IT band; with exquisitely tender points distal. Physical Therapy Plan Frequency and Duration Frequency of Treatment 2x/Week Duration of treatment (weeks) 8 Plan of Care Start Date 12/05/22 Plan of Care End Date 02/04/23 Therapeutic Interventions Therapeutic Interventions Home Exercise Program,Manual Therapy,Orthotic/Prosthetic Management,Patient/Caregiver Education,Self-Care/Home Management,Soft Tissue Mobilization,Taping, Therapeutic Activities, Therapeutic Exercises Modalities Cold Pack/Ice Massage,Electric Stimulation,Hot Packs, Infrared Therapy,Ultrasound Next Visit Focus/Plan Next Note Type Treatment Note Next Visit Plan Continue progression of ther ex as tolerated with emphasis on thoracic extension, postural correction, manual to IT band and thoracic spine/UT .
--- NOTE | 2023-01-16 12:13 | PT.OTN ---
Current Diagnoses Other chronic pain (01/16/23) Pain in thoracic spine (01/16/23) Abnormal posture (01/16/23) Weakness (01/16/23) Physical Therapy Treatment Note PT-OP-A Visit Information Start: 12/04/22 16:50 Freq: Status: Active Protocol: Document 01/16/23 11:20 [facility] (Rec: 01/16/23 12:13 [facility] [id number]) Out-Patient Physical Therapy Visit Information Visit Information Visit Type Treatment Note Visit Start Time 11:20 Visit Number 7 PT-OP-B Current Condition Start: 12/04/22 16:50 Freq: Status: Active Protocol: Document 01/16/23 11:20 [facility] (Rec: 01/16/23 12:13 [facility] [id number]) Current Condition History of Current Condition Onset Date 2 years Current Complaints rib pain, IT band pain History of Current Condition thoracic pain between shoulder blades at bra line laterally, posterior ribs, some help with OMT states Dr. Torres put rib back in place. Has tried to modify activities but persists. Feels best when leans back and pushes body into chair. 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 Doing shoulder blade squeeze, forward bent on ball, LTR. Also c/o excrutiating pain right IT band; has been using tennis ball for self massage. Increase in pain with bending forward, an just be sitting; stabbing pain, also N/T same area. Has gotten a recumbant exercise bike but hasn't used yet per Dr. Torres telling her she could make IT band pain worse if used bike incorrectly . Will be leaving on December 28 to due to of brother. Prior Treatments and Tests OMT with Dr. Torres Prior PT with this PT Treatment Goals Patient/Caregiver Goals dec pain, improve posture, strength, dec muscle tension PT-OP-C Subjective Start: 12/04/22 16:50 Freq: Status: Active Protocol: Document 01/16/23 11:20 [facility] (Rec: 01/16/23 12:13 [facility] [id number]) OP-PT Subjective Patient Comments Patient Comments C/o I'm a mess today. Reports kinesiotape cont to be helpful. Theraband broke at home while she was doing exercises. Bloodwork showed low B12, Vitamin D, hematocrit . PT-OP-J Posture/Palpation/Skin Start: 12/04/22 16:50 Freq: Status: Active Protocol: Document 12/05/22 09:03 [facility] (Rec: 12/05/22 10:26 [facility] [id number]) Posture Evaluation Position Sitting Head/C-Spine Posture Forward Head T-Spine Posture Increased Kyphosis L-Spine Posture Flattened Shoulder Posture (L) Rounded,(R) Rounded Scapula Posture (L) Protracted,(R) Protracted Arm Posture (L) Internally Rotated,(R) Internally Rotated Palpation Assessment Location mid thoracic Palpation Location luisa T7-T10 Palpation Findings Soft Tissue Tightness, Tenderness right IT band Palpation Findings Soft Tissue Tightness,Muscle Guarding,Tenderness PT-OP-K Range of Motion Start: 12/04/22 16:50 Freq: Status: Active Protocol: Document 12/05/22 09:03 [facility] (Rec: 12/05/22 10:26 [facility] [id number]) Cervical Spine Range of Motion Cervical Spine Active ROM Limitations Soft Tissue Tightness,Pain Comments mod dec all motions Lumbar Spine Range of Motion Lumbar Spine Active ROM Limitations Soft Tissue Tightness,Bony Restriction,Pain Comments mod dec luisa Shoulder Goniometric Range of Motion Shoulder luisa Shoulder ROM WFL Yes Shoulder ROM Limitations Shoulder ROM Limitations Soft Tissue Tightness Comments mod decrease luisa Hip Goniometric Range of Motion Hip Right Hip ROM WFL No Comments mod dec IT band flex with TTP Left Hip ROM WFL Yes Hip ROM Limitations Hip ROM Limitations Soft Tissue Tightness,Muscle Weakness,Pain PT-OP-Q Treatments Start: 12/04/22 16:50 Freq: Status: Active Protocol: Document 01/16/23 11:20 [facility] (Rec: 01/16/23 12:13 [facility] [id number]) Cardio Equipment Recumbent Stepper (Sci-Fit) Duration (Minutes) 11 Resistance 1-2 Seat Position 11 Other RPM 40-80, 1 mile Therapeutic Exercises Sitting Exercises deep breathing Reps/Minutes 5x Comments cues for abdominal and lateral ribcage breathing Standing Exercises doorway stretch Reps/Minutes 2x10 shoulder ext Equipment Used L1 TB Reps/Minutes 10x Comments verbal and tactile cues row Equipment Used L1 TB Reps/Minutes 10x Comments verbal and tactile cues Manual Therapy Treatment Soft Tissue Mobilization IT band Intensity/Depth Moderate Body Position Sitting UT, thoracic paraspinals, periscapular mm Intensity/Depth Moderate Body Position Sitting Taping thoracic spine Body Location braline thoracic spine space correction x 2 I strips Treatment Focus pain relief Type of Tape kinesiotape right IT band Treatment Focus inhibition Type of Tape Kinesio Tape Skin Inspection intact Comments 2 I strips PT-OP-R Modalities Start: 12/04/22 16:50 Freq: Status: Active Protocol: Document 01/16/23 11:20 [facility] (Rec: 01/16/23 12:13 [facility] [id number]) Hot Pack/Cold Pack Treatment Hot Pack Location thoracic spine, c/s, IT band R Patient Position Sitting Treatment Duration (minutes) 15 Patient Tolerance Good PT-OP-T Assessment and Plan Start: 12/04/22 16:50 Freq: Status: Active Protocol: Document 01/16/23 11:20 [facility] (Rec: 01/16/23 12:13 [facility] [id number]) Physical Therapy Assessment Goals Three Impairment postural dysfunction Impairment moderate to severe inc in kyphosis and protracted scapulas and IR shoulders, moderate fwd head and dowager' s hump. Short Term Goal (STG) patient to be instructed in neutral posture and postural correction exercises, positioning in sitting and in bed for improved postural health STG Duration 01/05/23 Outside Physical Damage Appraiser Goal (LTG) Patient to be independent and compliant with HEP including postural correction and demonstrate improved postural awareness at rest and with function LTG Duration 02/04/23 Two Impairment activity tolerance Impairment Constant pain limiting sleep and all physical activity moderately by 75% per patient report Short Term Goal (STG) Patient able to resume 50% usual activities in the home and community due to dec in pain and report ability to sleep for at least 4 hour stretch at a time STG Duration 01/05/23 Retirement Goal (LTG) Patient able to resume 75% usual activities in the home and community due to decrease in pain and report ability to sleep for at least 5-6 hour stretch at a time as measure of improved function LTG Duration 01/05/23 One Impairment pain as high as 8/10 mid thoracic and IT band right Short Term Goal (STG) Patient to report pain no greater than 5/10 with all usual activities STG Duration 01/05/23 Retirement Goal (LTG) Patient to report pain to no greater than 3/10 with all usual activities LTG Duration 02/04/23 Assessment Summary Assessment Patient medical issues slowing progress, low endurance for activity, difficulty with ADL' s at home and with mesha much ther ex. Physical Therapy Plan Frequency and Duration Frequency of Treatment 2x/Week Duration of treatment (weeks) 8 Plan of Care Start Date 12/05/22 Plan of Care End Date 02/04/23 Therapeutic Interventions Therapeutic Interventions Home Exercise Program,Manual Therapy,Orthotic/Prosthetic Management,Patient/Caregiver Education,Self-Care/Home Management,Soft Tissue Mobilization,Taping, Therapeutic Activities, Therapeutic Exercises Modalities Cold Pack/Ice Massage,Electric Stimulation,Hot Packs, Infrared Therapy,Ultrasound Next Visit Focus/Plan Next Note Type Treatment Note Next Visit Plan Continue progression of ther ex as tolerated with emphasis on thoracic extension, postural correction, manual to IT band and thoracic spine/UT .
--- NOTE | 2023-01-22 10:39 | PT.OTN ---
Current Diagnoses Other chronic pain (01/22/23) Pain in thoracic spine (01/22/23) Abnormal posture (01/22/23) Weakness (01/22/23) Physical Therapy Treatment Note PT-OP-A Visit Information Start: 12/04/22 16:50 Freq: Status: Active Protocol: Document 01/22/23 09:37 [facility]AK (Rec: 01/22/23 10:16 [facility] [id number]) Out-Patient Physical Therapy Visit Information Visit Information Visit Type Treatment Note Visit Start Time 09:30 Visit Stop Time 10:25 Total Visit Minutes 55 Visit Number 8 PT-OP-B Current Condition Start: 12/04/22 16:50 Freq: Status: Active Protocol: Document 01/22/23 09:37 SAK (Rec: 01/22/23 10:16 [facility] [id number]) Current Condition History of Current Condition Onset Date 2 years Current Complaints rib pain, IT band pain History of Current Condition thoracic pain between shoulder blades at bra line laterally, posterior ribs, some help with OMT states Dr. Torres put rib back in place. Has tried to modify activities but persists. Feels best when leans back and pushes body into chair. 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 Doing shoulder blade squeeze, forward bent on ball, LTR. Also c/o excrutiating pain right IT band; has been using tennis ball for self massage. Increase in pain with bending forward, an just be sitting; stabbing pain, also N/T same area. Has gotten a recumbant exercise bike but hasn't used yet per Dr. Torres telling her she could make IT band pain worse if used bike incorrectly . Will be leaving on December 28 to due to of brother. Prior Treatments and Tests OMT with Dr. Torres Prior PT with this PT Treatment Goals Patient/Caregiver Goals dec pain, improve posture, strength, dec muscle tension PT-OP-C Subjective Start: 12/04/22 16:50 Freq: Status: Active Protocol: Document 01/22/23 09:37 SAK (Rec: 01/22/23 10:16 [facility] [id number]) OP-PT Subjective Patient Comments Patient Comments Feeling very frustrated; very weak, IT band was very painful at times over the week, better today, not sure why. Did get a massager last week. Needs to review doorway stretch. Working more on posture. Kinesiotape is like a miracle. PT-OP-J Posture/Palpation/Skin Start: 12/04/22 16:50 Freq: Status: Active Protocol: Document 12/05/22 09:03 [facility] (Rec: 12/05/22 10:26 [facility] [id number]) Posture Evaluation Position Sitting Head/C-Spine Posture Forward Head T-Spine Posture Increased Kyphosis L-Spine Posture Flattened Shoulder Posture (L) Rounded,(R) Rounded Scapula Posture (L) Protracted,(R) Protracted Arm Posture (L) Internally Rotated,(R) Internally Rotated Palpation Assessment Location mid thoracic Palpation Location luisa T7-T10 Palpation Findings Soft Tissue Tightness, Tenderness right IT band Palpation Findings Soft Tissue Tightness,Muscle Guarding,Tenderness PT-OP-K Range of Motion Start: 12/04/22 16:50 Freq: Status: Active Protocol: Document 12/05/22 09:03 [facility] (Rec: 12/05/22 10:26 [facility] [id number]) Cervical Spine Range of Motion Cervical Spine Active ROM Limitations Soft Tissue Tightness,Pain Comments mod dec all motions Lumbar Spine Range of Motion Lumbar Spine Active ROM Limitations Soft Tissue Tightness,Bony Restriction,Pain Comments mod dec luisa Shoulder Goniometric Range of Motion Shoulder luisa Shoulder ROM WFL Yes Shoulder ROM Limitations Shoulder ROM Limitations Soft Tissue Tightness Comments mod decrease luisa Hip Goniometric Range of Motion Hip Right Hip ROM WFL No Comments mod dec IT band flex with TTP Left Hip ROM WFL Yes Hip ROM Limitations Hip ROM Limitations Soft Tissue Tightness,Muscle Weakness,Pain PT-OP-Q Treatments Start: 12/04/22 16:50 Freq: Status: Active Protocol: Document 01/22/23 09:37 [facility] (Rec: 01/22/23 10:16 [facility] [id number]) Cardio Equipment Recumbent Stepper (Sci-Fit) Duration (Minutes) 11 Resistance 1-2 Seat Position 11 Therapeutic Exercises Sitting Exercises chin tuck Reps/Minutes 5x5 scapular retraction Sitting Exercise Name passive>AAROM>AROM Reps/Minutes 4 min Standing Exercises doorway stretch Reps/Minutes 2x10 Manual Therapy Treatment Soft Tissue Mobilization IT band Mobilization Type Myofascial Release,Strumming, Sustained Pressure Intensity/Depth Moderate Body Position Sitting Taping thoracic spine Body Location braline thoracic spine space correction x 2 I strips Treatment Focus pain relief Type of Tape kinesiotape right IT band Treatment Focus inhibition Type of Tape Kinesio Tape Skin Inspection intact Comments 2 I strips PT-OP-R Modalities Start: 12/04/22 16:50 Freq: Status: Active Protocol: Document 01/22/23 09:37 [facility] (Rec: 01/22/23 10:34 [facility] [id number]) Hot Pack/Cold Pack Treatment Hot Pack Location thoracic spine, c/s, IT band R Patient Position Sitting Treatment Duration (minutes) 15 Patient Tolerance Good PT-OP-T Assessment and Plan Start: 12/04/22 16:50 Freq: Status: Active Protocol: Document 01/22/23 09:37 [facility] (Rec: 01/22/23 10:16 [facility] [id number]) Physical Therapy Assessment Goals Three Impairment postural dysfunction Impairment moderate to severe inc in kyphosis and protracted scapulas and IR shoulders, moderate fwd head and dowager' s hump. Short Term Goal (STG) patient to be instructed in neutral posture and postural correction exercises, positioning in sitting and in bed for improved postural health STG Duration 01/05/23 Penitentiary Goal (LTG) Patient to be independent and compliant with HEP including postural correction and demonstrate improved postural awareness at rest and with function LTG Duration 02/04/23 Two Impairment activity tolerance Impairment Constant pain limiting sleep and all physical activity moderately by 75% per patient report Short Term Goal (STG) Patient able to resume 50% usual activities in the home and community due to dec in pain and report ability to sleep for at least 4 hour stretch at a time STG Duration 01/05/23 Spin Tank Tender Goal (LTG) Patient able to resume 75% usual activities in the home and community due to decrease in pain and report ability to sleep for at least 5-6 hour stretch at a time as measure of improved function LTG Duration 01/05/23 One Impairment pain as high as 8/10 mid thoracic and IT band right Short Term Goal (STG) Patient to report pain no greater than 5/10 with all usual activities STG Duration 01/05/23 Spin Tank Tender Goal (LTG) Patient to report pain to no greater than 3/10 with all usual activities LTG Duration 5/14/23 Assessment Summary Assessment Good response to kinesiotape. Medical issues continue to impact activity tolerance. Patient verbalizing improved compliance and performance with theraband ex. Good understanding demonstrated with corrected doorway stretch with good tolerance. Physical Therapy Plan Frequency and Duration Frequency of Treatment 2x/Week Duration of treatment (weeks) 8 Plan of Care Start Date 12/05/22 Plan of Care End Date 02/04/23 Therapeutic Interventions Therapeutic Interventions Home Exercise Program,Manual Therapy,Orthotic/Prosthetic Management,Patient/Caregiver Education,Self-Care/Home Management,Soft Tissue Mobilization,Taping, Therapeutic Activities, Therapeutic Exercises Modalities Cold Pack/Ice Massage,Electric Stimulation,Hot Packs, Infrared Therapy,Ultrasound Next Visit Focus/Plan Next Note Type Treatment Note Next Visit Plan Continue progression of ther ex as tolerated with emphasis on thoracic extension, postural correction, manual to IT band and thoracic spine/UT .
--- NOTE | 2023-01-25 10:19 | PT.OTN ---
Current Diagnoses Other chronic pain (01/25/23) Pain in thoracic spine (01/25/23) Abnormal posture (01/25/23) Weakness (01/25/23) Physical Therapy Treatment Note PT-OP-A Visit Information Start: 12/04/22 16:50 Freq: Status: Active Protocol: Document 01/25/23 09:37 [facility] (Rec: 01/25/23 10:18 [facility] [id number]) Out-Patient Physical Therapy Visit Information Visit Information Visit Type Treatment Note Visit Start Time 09:30 Visit Stop Time 10:25 Total Visit Minutes 55 Visit Number 9 PT-OP-B Current Condition Start: 12/04/22 16:50 Freq: Status: Active Protocol: Document 01/25/23 09:37 SAK (Rec: 01/25/23 10:18 [facility] [id number]) Current Condition History of Current Condition Onset Date 2 years Current Complaints rib pain, IT band pain History of Current Condition thoracic pain between shoulder blades at bra line laterally, posterior ribs, some help with OMT states Dr. Torres put rib back in place. Has tried to modify activities but persists. Feels best when leans back and pushes body into chair. 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 Doing shoulder blade squeeze, forward bent on ball, LTR. Also c/o excrutiating pain right IT band; has been using tennis ball for self massage. Increase in pain with bending forward, an just be sitting; stabbing pain, also N/T same area. Has gotten a recumbant exercise bike but hasn't used yet per Dr. Torres telling her she could make IT band pain worse if used bike incorrectly . Will be leaving on December 28 to due to of brother. Prior Treatments and Tests OMT with Dr. Torres Prior PT with this PT Treatment Goals Patient/Caregiver Goals dec pain, improve posture, strength, dec muscle tension PT-OP-C Subjective Start: 12/04/22 16:50 Freq: Status: Active Protocol: Document 01/25/23 09:37 [facility] (Rec: 01/25/23 10:18 [facility] [id number]) OP-PT Subjective Patient Comments Patient Comments Just can't kick this fatigue and muscle weakness. Medication changes per doctor' s note. PT-OP-J Posture/Palpation/Skin Start: 12/04/22 16:50 Freq: Status: Active Protocol: Document 12/05/22 09:03 [facility] (Rec: 12/05/22 10:26 [facility] [id number]) Posture Evaluation Position Sitting Head/C-Spine Posture Forward Head T-Spine Posture Increased Kyphosis L-Spine Posture Flattened Shoulder Posture (L) Rounded,(R) Rounded Scapula Posture (L) Protracted,(R) Protracted Arm Posture (L) Internally Rotated,(R) Internally Rotated Palpation Assessment Location mid thoracic Palpation Location luisa T7-T10 Palpation Findings Soft Tissue Tightness, Tenderness right IT band Palpation Findings Soft Tissue Tightness,Muscle Guarding,Tenderness PT-OP-K Range of Motion Start: 12/04/22 16:50 Freq: Status: Active Protocol: Document 12/05/22 09:03 [facility] (Rec: 12/05/22 10:26 [facility] [id number]) Cervical Spine Range of Motion Cervical Spine Active ROM Limitations Soft Tissue Tightness,Pain Comments mod dec all motions Lumbar Spine Range of Motion Lumbar Spine Active ROM Limitations Soft Tissue Tightness,Bony Restriction,Pain Comments mod dec luisa Shoulder Goniometric Range of Motion Shoulder luisa Shoulder ROM WFL Yes Shoulder ROM Limitations Shoulder ROM Limitations Soft Tissue Tightness Comments mod decrease luisa Hip Goniometric Range of Motion Hip Right Hip ROM WFL No Comments mod dec IT band flex with TTP Left Hip ROM WFL Yes Hip ROM Limitations Hip ROM Limitations Soft Tissue Tightness,Muscle Weakness,Pain PT-OP-Q Treatments Start: 12/04/22 16:50 Freq: Status: Active Protocol: Document 01/25/23 09:37 [facility] (Rec: 01/25/23 10:18 [facility] [id number]) Cardio Equipment Recumbent Stepper (Sci-Fit) Duration (Minutes) 10 Resistance 2 Seat Position 11 Other 1.0 mile Therapeutic Exercises Sitting Exercises chin tuck Reps/Minutes 5x5 scapular retraction Sitting Exercise Name passive>AAROM>AROM Reps/Minutes 4 min deep breathing Reps/Minutes 5x2 Comments 1:2 inhale:exhale Standing Exercises doorway stretch Reps/Minutes 2x10 Comments gentle due to prior irritation with too aggressive shoulder ext Equipment Used L1 TB Reps/Minutes 10x Comments verbal and tactile cues row Equipment Used L1 TB Reps/Minutes 10x Comments verbal and tactile cues Manual Therapy Treatment Soft Tissue Mobilization IT band Mobilization Type Myofascial Release,Strumming, Sustained Pressure Intensity/Depth Moderate Body Position Sitting UT, thoracic paraspinals, periscapular mm Intensity/Depth Moderate Body Position Sitting Comments towel roll behind thoracic spine Taping thoracic spine Comments still intact right IT band Comments still intact PT-OP-R Modalities Start: 12/04/22 16:50 Freq: Status: Active Protocol: Document 01/25/23 09:37 [facility] (Rec: 01/25/23 10:18 [facility] [id number]) Hot Pack/Cold Pack Treatment Hot Pack Location thoracic spine, c/s, IT band R Patient Position Sitting Treatment Duration (minutes) 15 Patient Tolerance Good Ultrasound Therapy Treatment mid thoracic paraspinals Treatment Duration (minutes) 8 Patient Position Sitting Frequency Setting (mHz) 1 Duty Cycle 100% Intensity Setting (w/cm2) 1.4 PT-OP-T Assessment and Plan Start: 12/04/22 16:50 Freq: Status: Active Protocol: Document 01/25/23 09:37 [facility] (Rec: 01/25/23 10:18 [facility] [id number]) Physical Therapy Assessment Goals Three Impairment postural dysfunction Impairment moderate to severe inc in kyphosis and protracted scapulas and IR shoulders, moderate fwd head and dowager' s hump. Short Term Goal (STG) patient to be instructed in neutral posture and postural correction exercises, positioning in sitting and in bed for improved postural health STG Duration 01/05/23 Production Finisher Goal (LTG) Patient to be independent and compliant with HEP including postural correction and demonstrate improved postural awareness at rest and with function LTG Duration 02/04/23 Two Impairment activity tolerance Impairment Constant pain limiting sleep and all physical activity moderately by 75% per patient report Short Term Goal (STG) Patient able to resume 50% usual activities in the home and community due to dec in pain and report ability to sleep for at least 4 hour stretch at a time STG Duration 01/05/23 Production Finisher Goal (LTG) Patient able to resume 75% usual activities in the home and community due to decrease in pain and report ability to sleep for at least 5-6 hour stretch at a time as measure of improved function LTG Duration 01/05/23 One Impairment pain as high as 8/10 mid thoracic and IT band right Short Term Goal (STG) Patient to report pain no greater than 5/10 with all usual activities STG Duration 01/05/23 Group Home Goal (LTG) Patient to report pain to no greater than 3/10 with all usual activities LTG Duration 02/04/23 Assessment Summary Assessment Able to increase to level 2 with Sci-Fit. Fatigue continues to be factor in activity tolerance. Trial ultrasound thoracic spine, medial left scap. Further breathing ex instruction for relaxation. Improved scapular activation with theraband ex. Physical Therapy Plan Frequency and Duration Frequency of Treatment 2x/Week Duration of treatment (weeks) 8 Plan of Care Start Date 12/05/22 Plan of Care End Date 02/04/23 Therapeutic Interventions Therapeutic Interventions Home Exercise Program,Manual Therapy,Orthotic/Prosthetic Management,Patient/Caregiver Education,Self-Care/Home Management,Soft Tissue Mobilization,Taping, Therapeutic Activities, Therapeutic Exercises Modalities Cold Pack/Ice Massage,Electric Stimulation,Hot Packs, Infrared Therapy,Ultrasound Next Visit Focus/Plan Next Note Type Treatment Note Next Visit Plan Evaluate response to ultrasound. Possible ultrasound to IT band. Continue ther ex for postural correction, strengthening, manual techniques.
--- NOTE | 2023-01-29 11:30 | PT.OTN ---
Current Diagnoses Other chronic pain (01/29/23) Pain in thoracic spine (01/29/23) Abnormal posture (01/29/23) Weakness (01/29/23) Physical Therapy Treatment Note PT-OP-A Visit Information Start: 12/04/22 16:50 Freq: Status: Active Protocol: Document 01/29/23 10:35 [facility] (Rec: 01/29/23 11:[address] [facility] [id number]) Out-Patient Physical Therapy Visit Information Visit Information Visit Type Treatment Note Visit Start Time 10:30 Visit Stop Time 11:25 Total Visit Minutes 55 Visit Number 10 PT-OP-B Current Condition Start: 12/04/22 16:50 Freq: Status: Active Protocol: Document 01/29/23 10:35 [facility] (Rec: 01/29/23 11:[address] [facility] [id number]) Current Condition History of Current Condition Onset Date 2 years Current Complaints rib pain, IT band pain History of Current Condition thoracic pain between shoulder blades at bra line laterally, posterior ribs, some help with OMT states Dr. Torres put rib back in place. Has tried to modify activities but persists. Feels best when leans back and pushes body into chair. 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 Doing shoulder blade squeeze, forward bent on ball, LTR. Also c/o excrutiating pain right IT band; has been using tennis ball for self massage. Increase in pain with bending forward, an just be sitting; stabbing pain, also N/T same area. Has gotten a recumbant exercise bike but hasn't used yet per Dr. Torres telling her she could make IT band pain worse if used bike incorrectly . Will be leaving on December 28 to due to of brother. Prior Treatments and Tests OMT with Dr. Torres Prior PT with this PT Treatment Goals Patient/Caregiver Goals dec pain, improve posture, strength, dec muscle tension PT-OP-C Subjective Start: 12/04/22 16:50 Freq: Status: Active Protocol: Document 01/29/23 10:35 [facility] (Rec: 01/29/23 11:[address] [facility] [id number]) OP-PT Subjective Patient Comments Patient Comments Fatigue and SOB is a killer, comes in waves limting activity tolerance. PT-OP-J Posture/Palpation/Skin Start: 12/04/22 16:50 Freq: Status: Active Protocol: Document 12/05/22 09:[address] [facility] (Rec: 12/05/22 10:[address] [facility] [id number]) Posture Evaluation Position Sitting Head/C-Spine Posture Forward Head T-Spine Posture Increased Kyphosis L-Spine Posture Flattened Shoulder Posture (L) Rounded,(R) Rounded Scapula Posture (L) Protracted,(R) Protracted Arm Posture (L) Internally Rotated,(R) Internally Rotated Palpation Assessment Location mid thoracic Palpation Location luisa T7-T10 Palpation Findings Soft Tissue Tightness, Tenderness right IT band Palpation Findings Soft Tissue Tightness,Muscle Guarding,Tenderness PT-OP-K Range of Motion Start: 12/04/22 16:50 Freq: Status: Active Protocol: Document 12/05/22 09:[address] [facility] (Rec: 12/05/22 10:[address] [facility] [id number]) Cervical Spine Range of Motion Cervical Spine Active ROM Limitations Soft Tissue Tightness,Pain Comments mod dec all motions Lumbar Spine Range of Motion Lumbar Spine Active ROM Limitations Soft Tissue Tightness,Bony Restriction,Pain Comments mod dec luisa Shoulder Goniometric Range of Motion Shoulder luisa Shoulder ROM WFL Yes Shoulder ROM Limitations Shoulder ROM Limitations Soft Tissue Tightness Comments mod decrease luisa Hip Goniometric Range of Motion Hip Right Hip ROM WFL No Comments mod dec IT band flex with TTP Left Hip ROM WFL Yes Hip ROM Limitations Hip ROM Limitations Soft Tissue Tightness,Muscle Weakness,Pain PT-OP-Q Treatments Start: 12/04/22 16:50 Freq: Status: Active Protocol: Document 01/29/23 10:[address] [facility] (Rec: 01/29/23 11:[address] [facility] [id number]) Cardio Equipment Recumbent Stepper (Sci-Fit) Duration (Minutes) 10 Resistance 2 Seat Position 11 Other 1.0 mile Therapeutic Exercises Sitting Exercises chin tuck Reps/Minutes 5x5 scapular retraction Sitting Exercise Name passive>AAROM>AROM Reps/Minutes 4 min deep breathing Reps/Minutes 5x2 Comments 1:2 inhale:exhale Manual Therapy Treatment Soft Tissue Mobilization IT band Mobilization Type Myofascial Release,Strumming, Sustained Pressure Intensity/Depth Moderate Body Position Sitting UT, thoracic paraspinals, periscapular mm Intensity/Depth Moderate Body Position Sitting Comments towel roll behind thoracic spine Taping thoracic spine Body Location braline thoracic spine space correction x 2 I strips Treatment Focus pain relief Type of Tape kinesiotape Skin Inspection intact Comments 2 I strips right IT band Treatment Focus inhibition Type of Tape kinesio Skin Inspection intact Comments 2 I strips Self-Care/Home Management Treatment Education Caregiver Education education of sister in kinesiotape to patient IT band and thoracic spine PT-OP-R Modalities Start: 12/04/22 16:50 Freq: Status: Active Protocol: Document 01/29/23 10:[address] [facility] (Rec: 01/29/23 11:[address] [facility] [id number]) Hot Pack/Cold Pack Treatment Hot Pack Location thoracic spine, c/s, IT band R Patient Position Sitting Treatment Duration (minutes) 15 Patient Tolerance Good Ultrasound Therapy Treatment IT band Treatment Duration (minutes) 8 Patient Position Sitting Frequency Setting (mHz) 1 Mode Setting Continuous Duty Cycle 100 Intensity Setting (w/cm2) 1.4 Comments right ITB PT-OP-T Assessment and Plan Start: 12/04/22 16:50 Freq: Status: Active Protocol: Document 01/29/23 10:[address] [facility] (Rec: 01/29/23 11:[address] [facility] [id number]) Physical Therapy Assessment Goals Three Impairment postural dysfunction Impairment moderate to severe inc in kyphosis and protracted scapulas and IR shoulders, moderate fwd head and dowager' s hump. Short Term Goal (STG) patient to be instructed in neutral posture and postural correction exercises, positioning in sitting and in bed for improved postural health 01/29/23: goal met STG Duration goal met Long-Term Goal (LTG) Patient to be independent and compliant with HEP including postural correction and demonstrate improved postural awareness at rest and with function LTG Duration 02/04/23 Two Impairment activity tolerance Impairment Constant pain limiting sleep and all physical activity moderately by 75% per patient report Short Term Goal (STG) Patient able to resume 50% usual activities in the home and community due to dec in pain and report ability to sleep for at least 4 hour stretch at a time 01/29/23: goal progress. Limited by long-Covid symptoms of fatigue and SOB STG Duration 01/05/23 Long-Term Goal (LTG) Patient able to resume 75% usual activities in the home and community due to decrease in pain and report ability to sleep for at least 5-6 hour stretch at a time as measure of improved function LTG Duration 01/05/23 One Impairment pain as high as 8/10 mid thoracic and IT band right Short Term Goal (STG) Patient to report pain no greater than 5/10 with all usual activities 01/29/23: goal progress, less intense majority of time but with occasional stabs of pain especially ITB STG Duration 01/05/23 Long-Term Goal (LTG) Patient to report pain to no greater than 3/10 with all usual activities LTG Duration 02/04/23 Assessment Summary Assessment Sister Parul present for [facility] [place] [facility] patient; she demonstrated good understanding. Goal progress but limited by fatigue and SOB Physical Therapy Plan Frequency and Duration Frequency of Treatment 2x/Week Duration of treatment (weeks) 8 Plan of Care Start Date 12/05/22 Plan of Care End Date 02/04/23 Therapeutic Interventions Therapeutic Interventions Home Exercise Program,Manual Therapy,Orthotic/Prosthetic Management,Patient/Caregiver Education,Self-Care/Home Management,Soft Tissue Mobilization,Taping, Therapeutic Activities, Therapeutic Exercises Modalities Cold Pack/Ice Massage,Electric Stimulation,Hot Packs, Infrared Therapy,Ultrasound Next Visit Focus/Plan Next Note Type Re-Evaluation Next Visit Plan Re-evaluation, continue progression of ther ex. Manual techniques and modalities PRN
--- NOTE | 2023-01-31 13:09 | PT.OTN ---
Current Diagnoses Other chronic pain (01/31/23) Pain in thoracic spine (01/31/23) Abnormal posture (01/31/23) Weakness (01/31/23) Physical Therapy Treatment Note PT-OP-A Visit Information Start: 12/04/22 16:50 Freq: Status: Active Protocol: Document 01/31/23 09:31 [facility] (Rec: 01/31/23 10:19 [facility] [id number]) Out-Patient Physical Therapy Visit Information Visit Information Visit Type Treatment Note Visit Start Time 09:31 Visit Stop Time 10:31 Total Visit Minutes 60 Visit Number 11 PT-OP-B Current Condition Start: 12/04/22 16:50 Freq: Status: Active Protocol: Document 01/31/23 09:31 [facility]AK (Rec: 01/31/23 10:19 [facility] [id number]) Current Condition History of Current Condition Onset Date 2 years Current Complaints rib pain, IT band pain History of Current Condition thoracic pain between shoulder blades at bra line laterally, posterior ribs, some help with OMT states Dr. Torres put rib back in place. Has tried to modify activities but persists. Feels best when leans back and pushes body into chair. 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 Doing shoulder blade squeeze, forward bent on ball, LTR. Also c/o excrutiating pain right IT band; has been using tennis ball for self massage. Increase in pain with bending forward, an just be sitting; stabbing pain, also N/T same area. Has gotten a recumbant exercise bike but hasn't used yet per Dr. Torres telling her she could make IT band pain worse if used bike incorrectly . Will be leaving on December 28 to due to of brother. Prior Treatments and Tests OMT with Dr. Torres Prior PT with this PT PT-OP-C Subjective Start: 12/04/22 16:50 Freq: Status: Active Protocol: Document 01/31/23 09:31 [facility]AK (Rec: 01/31/23 10:19 [facility] [id number]) OP-PT Subjective Patient Comments Patient Comments Working on walking incline near her house, pushing exercises, trying hard to get stronger. PT-OP-J Posture/Palpation/Skin Start: 12/04/22 16:50 Freq: Status: Active Protocol: Document 12/05/22 09:03 [facility] (Rec: 12/05/22 10:26 [facility] [id number]) Posture Evaluation Position Sitting Head/C-Spine Posture Forward Head T-Spine Posture Increased Kyphosis L-Spine Posture Flattened Shoulder Posture (L) Rounded,(R) Rounded Scapula Posture (L) Protracted,(R) Protracted Arm Posture (L) Internally Rotated,(R) Internally Rotated Palpation Assessment Location mid thoracic Palpation Location luisa T7-T10 Palpation Findings Soft Tissue Tightness, Tenderness right IT band Palpation Findings Soft Tissue Tightness,Muscle Guarding,Tenderness PT-OP-K Range of Motion Start: 12/04/22 16:50 Freq: Status: Active Protocol: Document 12/05/22 09:03 [facility] (Rec: 12/05/22 10:26 [facility] [id number]) Cervical Spine Range of Motion Cervical Spine Active ROM Limitations Soft Tissue Tightness,Pain Comments mod dec all motions Lumbar Spine Range of Motion Lumbar Spine Active ROM Limitations Soft Tissue Tightness,Bony Restriction,Pain Comments mod dec luisa Shoulder Goniometric Range of Motion Shoulder luisa Shoulder ROM WFL Yes Shoulder ROM Limitations Shoulder ROM Limitations Soft Tissue Tightness Comments mod decrease luisa Hip Goniometric Range of Motion Hip Right Hip ROM WFL No Comments mod dec IT band flex with TTP Left Hip ROM WFL Yes Hip ROM Limitations Hip ROM Limitations Soft Tissue Tightness,Muscle Weakness,Pain PT-OP-Q Treatments Start: 12/04/22 16:50 Freq: Status: Active Protocol: Document 01/31/23 09:31 [facility] (Rec: 01/31/23 10:19 [facility] [id number]) Cardio Equipment Recumbent Stepper (Sci-Fit) Duration (Minutes) 17 Resistance 2.5 Seat Position 12 Other 1.68 Therapeutic Exercises Sitting Exercises chin tuck Reps/Minutes 5x5 scapular retraction Sitting Exercise Name passive>AAROM>AROM Reps/Minutes 8 min deep breathing Reps/Minutes 5x2 Comments 1:2 inhale:exhale Standing Exercises Shoulder Equipment Used L1 TB. Reps/Minutes 10x doorway stretch Reps/Minutes 2x10 Comments gentle due to prior irritation with too aggressive shoulder ext Equipment Used L1 TB Reps/Minutes 10x Comments verbal and tactile cues row Equipment Used L1 TB Reps/Minutes 10x Comments verbal and tactile cues Manual Therapy Treatment Taping thoracic spine Body Location braline thoracic spine space correction x 2 I strips Treatment Focus pain relief Type of Tape kinesiotape Skin Inspection intact Comments 2 I strips right IT band Treatment Focus inhibition Type of Tape kinesio Skin Inspection intact Comments 2 I strips PT-OP-R Modalities Start: 12/04/22 16:50 Freq: Status: Active Protocol: Document 01/31/23 09:31 [facility] (Rec: 01/31/23 10:19 [facility] [id number]) Hot Pack/Cold Pack Treatment Hot Pack Location thoracic spine, c/s, IT band R Patient Position Sitting Treatment Duration (minutes) 15 Patient Tolerance Good PT-OP-T Assessment and Plan Start: 12/04/22 16:50 Freq: Status: Active Protocol: Document 01/31/23 09:31 [facility] (Rec: 01/31/23 10:19 [facility] [id number]) Physical Therapy Assessment Goals Three Impairment postural dysfunction Impairment moderate to severe inc in kyphosis and protracted scapulas and IR shoulders, moderate fwd head and dowager' s hump. Short Term Goal (STG) patient to be instructed in neutral posture and postural correction exercises, positioning in sitting and in bed for improved postural health 01/29/23: goal met STG Duration goal met [facility] Goal (LTG) Patient to be independent and compliant with HEP including postural correction and demonstrate improved postural awareness at rest and with function LTG Duration 02/04/23 Two Impairment activity tolerance Impairment Constant pain limiting sleep and all physical activity moderately by 75% per patient report Short Term Goal (STG) Patient able to resume 50% usual activities in the home and community due to dec in pain and report ability to sleep for at least 4 hour stretch at a time 01/29/23: goal progress. Limited by long-Covid symptoms of fatigue and SOB STG Duration 01/05/23 [facility] Goal (LTG) Patient able to resume 75% usual activities in the home and community due to decrease in pain and report ability to sleep for at least 5-6 hour stretch at a time as measure of improved function LTG Duration 01/05/23 One Impairment pain as high as 8/10 mid thoracic and IT band right Short Term Goal (STG) Patient to report pain no greater than 5/10 with all usual activities 01/29/23: goal progress, less intense majority of time but with occasional stabs of pain especially ITB STG Duration 01/05/23 Inspector Pawnshop Detail Goal (LTG) Patient to report pain to no greater than 3/10 with all usual activities LTG Duration 02/04/23 Assessment Summary Assessment Patient continues to be limited by fatigue and SOB s/p COVID. Increased manual today with emphasis on postural correction, trigger point and muscular release thoracic spine and scapula, anterior chain flexibility. Improved performance of theraband exercises, inc scapular movement with less UT overactivation. Good progress toward goals, good compliance with HEP. Would benefit from further PT to help her fully achieve the above goals. We will have a gap of treatment while PT gone on vacation 1 month. Physical Therapy Plan Frequency and Duration Frequency of Treatment 2x/Week Duration of treatment (weeks) 12 Plan of Care Start Date 01/31/23 Plan of Care End Date 05/03/23 Therapeutic Interventions Therapeutic Interventions Home Exercise Program,Manual Therapy,Orthotic/Prosthetic Management,Patient/Caregiver Education,Self-Care/Home Management,Soft Tissue Mobilization,Taping, Therapeutic Activities, Therapeutic Exercises Modalities Cold Pack/Ice Massage,Electric Stimulation,Hot Packs, Infrared Therapy,Ultrasound Next Visit Focus/Plan Next Note Type Treatment Note Next Visit Plan band. Continue ther ex for postural correction, strengthening, manual techniques. Modalities and manual techniques PRN.
--- NOTE | 2023-01-31 16:00 | PT.OPPOC ---
Physical, Occupational & Speech Therapy At [facility] Current Diagnoses Other chronic pain (01/31/23) Pain in thoracic spine (01/31/23) Abnormal posture (01/31/23) Weakness (01/31/23) Visit Care Team Role Provider Type La Torres DO Attending Provider Physician Family Provider Primary Care Provider Referring Provider Specialty: Medical Address: [address] [place] [address], [address], [place], [address] Email: [email or web address] Plan Of Care PT-OP-T Assessment and Plan Start: 12/04/22 16:50 Freq: Status: Active Protocol: Document 01/31/23 09:31 [facility] (Rec: 01/31/23 10:19 [facility] [id number]) Physical Therapy Assessment Goals Three Impairment postural dysfunction Impairment moderate to severe inc in kyphosis and protracted scapulas and IR shoulders, moderate fwd head and dowager' s hump. Short Term Goal (STG) patient to be instructed in neutral posture and postural correction exercises, positioning in sitting and in bed for improved postural health 01/29/23: goal met STG Duration goal met Correction Goal (LTG) Patient to be independent and compliant with HEP including postural correction and demonstrate improved postural awareness at rest and with function LTG Duration 05/03/23 Two Impairment activity tolerance Impairment Constant pain limiting sleep and all physical activity moderately by 75% per patient report Short Term Goal (STG) Patient able to resume 50% usual activities in the home and community due to dec in pain and report ability to sleep for at least 4 hour stretch at a time 01/29/23: goal progress. Limited by long-Covid symptoms of fatigue and SOB STG Duration 04/02/23 Correction Goal (LTG) Patient able to resume 75% usual activities in the home and community due to decrease in pain and report ability to sleep for at least 5-6 hour stretch at a time as measure of improved function LTG Duration 05/03/23 One Impairment pain as high as 8/10 mid thoracic and IT band right Short Term Goal (STG) Patient to report pain no greater than 5/10 with all usual activities 01/29/23: goal progress, less intense majority of time but with occasional stabs of pain especially ITB STG Duration 01/05/23 Refrigeration Operator Goal (LTG) Patient to report pain to no greater than 3/10 with all usual activities LTG Duration 05/03/23 Assessment Summary Assessment Patient continues to be limited by fatigue and SOB s/p COVID. Increased manual today with emphasis on postural correction, trigger point and muscular release thoracic spine and scapula, anterior chain flexibility. Improved performance of theraband exercises, inc scapular movement with less UT overactivation. Good progress toward goals, good compliance with HEP. Would benefit from further PT to help her fully achieve the above goals. We will have a gap of treatment while PT gone on vacation 1 month. Physical Therapy Plan Frequency and Duration Frequency of Treatment 2x/Week Duration of treatment (weeks) 12 Plan of Care Start Date 01/31/23 Plan of Care End Date 05/03/23 Therapeutic Interventions Therapeutic Interventions Home Exercise Program,Manual Therapy,Orthotic/Prosthetic Management,Patient/Caregiver Education,Self-Care/Home Management,Soft Tissue Mobilization,Taping, Therapeutic Activities, Therapeutic Exercises Modalities Cold Pack/Ice Massage,Electric Stimulation,Hot Packs, Infrared Therapy,Ultrasound Next Visit Focus/Plan Next Note Type Treatment Note Next Visit Plan band. Continue ther ex for postural correction, strengthening, manual techniques. Modalities and manual techniques PRN. Plan of Care Dates Plan of Care Start Date 01/31/23 Plan of Care End Date 05/03/23 Electronically Signed by: Luh Weaver, PT 02/05/23 0758 If you are in agreement with this Plan of Care, please return a signed and dated copy. I have reviewed this Plan of Care and certify that the skilled therapy services above are required to meet the patient?s needs. Physician Signature Date Printed Name and Credentials Clinical Instructor Signature Printed Name and Credentials
--- NOTE | 2023-01-31 16:00 | PT.OTRE ---
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 Hiatal hernia (~11/22/20) History of recurrent pneumonia History of stent insertion of renal artery Hypertension Iron deficiency anemia Kidney failure Left renal artery stenosis (~11/22/20) Macular degeneration, age related, nonexudative Melanoma Myocardial infarction due to atherothrombotic coronary artery disease Ocular migraine Osteopenia of femoral neck, bilateral (~02/2019) Paroxysmal atrial fibrillation Parumbilical hernia (~11/22/20) Pressure ulcer, buttock, right, unstageable Prinzmetal's angina (1975) Proteus enteritis (~2018) Renal artery atherosclerosis (09/22/11) Severe obstructive sleep apnea-hypopnea syndrome (10/22/15) Shingles (2016) Shoulder pain Sleep apnea Statin intolerance Stenosis of celiac artery (~11/22/20) Stroke Systemic lupus erythematosus Thyroid nodule Surgical History (Last Reviewed 12/07/22 @ 08:07 by Alfonzo Burnham MD) Anesthesia H/O colonoscopy with polypectomy (~04/2020) History of arthroplasty (12/09/12) History of arthroplasty (01/20/13) History of cataract removal with insertion of prosthetic lens (2014) History of cholecystectomy History of tonsillectomy Stented coronary artery (2013) Visit Care Team Role Provider Type La Torres DO Attending Provider Physician Family Provider Primary Care Provider Referring Provider Specialty: Medical Address: [address] [place] [address], [address], [place], [address] Email: [email or web address] Physical Therapy Re-Evaluation PT-OP-A Visit Information Start: 12/04/22 16:50 Freq: Status: Active Protocol: Document 01/31/23 09:31 [facility] (Rec: 01/31/23 10:19 [facility] [id number]) Out-Patient Physical Therapy Visit Information Visit Information Visit Type Treatment Note Visit Start Time 09:31 Visit Stop Time 10:31 Total Visit Minutes 60 Visit Number 11 PT-OP-B Current Condition Start: 12/04/22 16:50 Freq: Status: Active Protocol: Document 01/31/23 09:31 [facility] (Rec: 01/31/23 10:19 [facility] [id number]) Current Condition History of Current Condition Onset Date 2 years Current Complaints rib pain, IT band pain History of Current Condition thoracic pain between shoulder blades at bra line laterally, posterior ribs, some help with OMT states Dr. Torres put rib back in place. Has tried to modify activities but persists. Feels best when leans back and pushes body into chair. 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 Doing shoulder blade squeeze, forward bent on ball, LTR. Also c/o excrutiating pain right IT band; has been using tennis ball for self massage. Increase in pain with bending forward, an just be sitting; stabbing pain, also N/T same area. Has gotten a recumbant exercise bike but hasn't used yet per Dr. Torres telling her she could make IT band pain worse if used bike incorrectly . Will be leaving on December 28 to due to of brother. Prior Treatments and Tests OMT with Dr. Torres Prior PT with this PT PT-OP-C Subjective Start: 12/04/22 16:50 Freq: Status: Active Protocol: Document 01/31/23 09:31 [facility] (Rec: 01/31/23 10:19 [facility] [id number]) OP-PT Subjective Patient Comments Patient Comments Working on walking incline near her house, pushing exercises, trying hard to get stronger. PT-OP-J Posture/Palpation/Skin Start: 12/04/22 16:50 Freq: Status: Active Protocol: Document 12/05/22 09:03 [facility] (Rec: 12/05/22 10:26 [facility] [id number]) Posture Evaluation Position Sitting Head/C-Spine Posture Forward Head T-Spine Posture Increased Kyphosis L-Spine Posture Flattened Shoulder Posture (L) Rounded,(R) Rounded Scapula Posture (L) Protracted,(R) Protracted Arm Posture (L) Internally Rotated,(R) Internally Rotated Palpation Assessment Location mid thoracic Palpation Location luisa T7-T10 Palpation Findings Soft Tissue Tightness, Tenderness right IT band Palpation Findings Soft Tissue Tightness,Muscle Guarding,Tenderness PT-OP-K Range of Motion Start: 12/04/22 16:50 Freq: Status: Active Protocol: Document 12/05/22 09:03 [facility] (Rec: 12/05/22 10:26 [facility] [id number]) Cervical Spine Range of Motion Cervical Spine Active ROM Limitations Soft Tissue Tightness,Pain Comments mod dec all motions Lumbar Spine Range of Motion Lumbar Spine Active ROM Limitations Soft Tissue Tightness,Bony Restriction,Pain Comments mod dec luisa Shoulder Goniometric Range of Motion Shoulder Measured in Degrees luisa Shoulder ROM WFL Yes Shoulder ROM Limitations Shoulder ROM Limitations Soft Tissue Tightness Comments mod decrease luisa Hip Goniometric Range of Motion Hip Measured in Degrees Right Hip ROM WFL No Comments mod dec IT band flex with TTP Left Hip ROM WFL Yes Hip ROM Limitations Hip ROM Limitations Soft Tissue Tightness,Muscle Weakness,Pain PT-OP-Q Treatments Start: 12/04/22 16:50 Freq: Status: Active Protocol: Document 01/31/23 09:31 [facility] (Rec: 01/31/23 10:19 [facility] [id number]) Cardio Equipment Recumbent Stepper (Sci-Fit) Duration (Minutes) 17 Resistance 2.5 Seat Position 12 Other 1.68 Therapeutic Exercises Sitting Exercises chin tuck Reps/Minutes 5x5 scapular retraction Sitting Exercise Name passive>AAROM>AROM Reps/Minutes 8 min deep breathing Reps/Minutes 5x2 Comments 1:2 inhale:exhale Standing Exercises Shoulder Equipment Used L1 TB. Reps/Minutes 10x doorway stretch Reps/Minutes 2x10 Comments gentle due to prior irritation with too aggressive shoulder ext Equipment Used L1 TB Reps/Minutes 10x Comments verbal and tactile cues row Equipment Used L1 TB Reps/Minutes 10x Comments verbal and tactile cues Manual Therapy Treatment Taping thoracic spine Body Location braline thoracic spine space correction x 2 I strips Treatment Focus pain relief Type of Tape kinesiotape Skin Inspection intact Comments 2 I strips right IT band Treatment Focus inhibition Type of Tape kinesio Skin Inspection intact Comments 2 I strips PT-OP-R Modalities Start: 12/04/22 16:50 Freq: Status: Active Protocol: Document 01/31/23 09:31 [facility] (Rec: 01/31/23 10:19 [facility] [id number]) Hot Pack/Cold Pack Treatment Hot Pack Location thoracic spine, c/s, IT band R Patient Position Sitting Treatment Duration (minutes) 15 Patient Tolerance Good PT-OP-T Assessment and Plan Start: 12/04/22 16:50 Freq: Status: Active Protocol: Document 01/31/23 09:31 [facility] (Rec: 01/31/23 10:19 [facility] [id number]) Physical Therapy Assessment Goals Three Impairment postural dysfunction Impairment moderate to severe inc in kyphosis and protracted scapulas and IR shoulders, moderate fwd head and dowager' s hump. Short Term Goal (STG) patient to be instructed in neutral posture and postural correction exercises, positioning in sitting and in bed for improved postural health 01/29/23: goal met STG Duration goal met Skilled Nursing Goal (LTG) Patient to be independent and compliant with HEP including postural correction and demonstrate improved postural awareness at rest and with function LTG Duration 05/03/23 Two Impairment activity tolerance Impairment Constant pain limiting sleep and all physical activity moderately by 75% per patient report Short Term Goal (STG) Patient able to resume 50% usual activities in the home and community due to dec in pain and report ability to sleep for at least 4 hour stretch at a time 01/29/23: goal progress. Limited by long-Covid symptoms of fatigue and SOB STG Duration 04/02/23 Skilled Nursing Goal (LTG) Patient able to resume 75% usual activities in the home and community due to decrease in pain and report ability to sleep for at least 5-6 hour stretch at a time as measure of improved function LTG Duration 05/03/23 One Impairment pain as high as 8/10 mid thoracic and IT band right Short Term Goal (STG) Patient to report pain no greater than 5/10 with all usual activities 01/29/23: goal progress, less intense majority of time but with occasional stabs of pain especially ITB STG Duration 01/05/23 Personal Lines Insurance Agent Goal (LTG) Patient to report pain to no greater than 3/10 with all usual activities LTG Duration 05/03/23 Assessment Summary Assessment Patient continues to be limited by fatigue and SOB s/p COVID. Increased manual today with emphasis on postural correction, trigger point and muscular release thoracic spine and scapula, anterior chain flexibility. Improved performance of theraband exercises, inc scapular movement with less UT overactivation. Good progress toward goals, good compliance with HEP. Would benefit from further PT to help her fully achieve the above goals. We will have a gap of treatment while PT gone on vacation 1 month. Physical Therapy Plan Frequency and Duration Frequency of Treatment 2x/Week Duration of treatment (weeks) 12 Plan of Care Start Date 01/31/23 Plan of Care End Date 05/03/23 Therapeutic Interventions Therapeutic Interventions Home Exercise Program,Manual Therapy,Orthotic/Prosthetic Management,Patient/Caregiver Education,Self-Care/Home Management,Soft Tissue Mobilization,Taping, Therapeutic Activities, Therapeutic Exercises Modalities Cold Pack/Ice Massage,Electric Stimulation,Hot Packs, Infrared Therapy,Ultrasound Next Visit Focus/Plan Next Note Type Treatment Note Next Visit Plan band. Continue ther ex for postural correction, strengthening, manual techniques. Modalities and manual techniques PRN.
--- NOTE | 2023-02-01 07:56 | PT.OTRE ---
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 Hiatal hernia (~11/22/20) History of recurrent pneumonia History of stent insertion of renal artery Hypertension Iron deficiency anemia Kidney failure Left renal artery stenosis (~11/22/20) Macular degeneration, age related, nonexudative Melanoma Myocardial infarction due to atherothrombotic coronary artery disease Ocular migraine Osteopenia of femoral neck, bilateral (~02/2019) Paroxysmal atrial fibrillation Parumbilical hernia (~11/22/20) Pressure ulcer, buttock, right, unstageable Prinzmetal's angina (1975) Proteus enteritis (~2018) Renal artery atherosclerosis (09/22/11) Severe obstructive sleep apnea-hypopnea syndrome (10/22/15) Shingles (2016) Shoulder pain Sleep apnea Statin intolerance Stenosis of celiac artery (~11/22/20) Stroke Systemic lupus erythematosus Thyroid nodule Surgical History (Last Reviewed 12/07/22 @ 08:07 by Alfonzo Burnham MD) Anesthesia H/O colonoscopy with polypectomy (~04/2020) History of arthroplasty (12/09/12) History of arthroplasty (01/20/13) History of cataract removal with insertion of prosthetic lens (2014) History of cholecystectomy History of tonsillectomy Stented coronary artery (2013) Visit Care Team Role Provider Type La Torres DO Attending Provider Physician Family Provider Primary Care Provider Referring Provider Specialty: Medical Address: [address] [place] [address], [address], [address] Email: [email or web address] Physical Therapy Re-Evaluation PT-OP-A Visit Information Start: 12/04/22 16:50 Freq: Status: Active Protocol: Document 01/31/23 09:31 [facility] (Rec: 01/31/23 10:19 [facility] [id number]) Out-Patient Physical Therapy Visit Information Visit Information Visit Type Treatment Note Visit Start Time 09:31 Visit Stop Time 10:31 Total Visit Minutes 60 Visit Number 11 PT-OP-B Current Condition Start: 12/04/22 16:50 Freq: Status: Active Protocol: Document 01/31/23 09:31 [facility] (Rec: 01/31/23 10:19 [facility] [id number]) Current Condition History of Current Condition Onset Date 2 years Current Complaints rib pain, IT band pain History of Current Condition thoracic pain between shoulder blades at bra line laterally, posterior ribs, some help with OMT states Dr. Torres put rib back in place. Has tried to modify activities but persists. Feels best when leans back and pushes body into chair. 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 Doing shoulder blade squeeze, forward bent on ball, LTR. Also c/o excrutiating pain right IT band; has been using tennis ball for self massage. Increase in pain with bending forward, an just be sitting; stabbing pain, also N/T same area. Has gotten a recumbant exercise bike but hasn't used yet per Dr. Torres telling her she could make IT band pain worse if used bike incorrectly . Will be leaving on December 28 to due to of brother. Prior Treatments and Tests OMT with Dr. Torres Prior PT with this PT PT-OP-C Subjective Start: 12/04/22 16:50 Freq: Status: Active Protocol: Document 01/31/23 09:31 [facility] (Rec: 01/31/23 10:19 [facility] [id number]) OP-PT Subjective Patient Comments Patient Comments Working on walking incline near her house, pushing exercises, trying hard to get stronger. PT-OP-J Posture/Palpation/Skin Start: 12/04/22 16:50 Freq: Status: Active Protocol: Document 12/05/22 09:03 [facility] (Rec: 12/05/22 10:26 [facility] [id number]) Posture Evaluation Position Sitting Head/C-Spine Posture Forward Head T-Spine Posture Increased Kyphosis L-Spine Posture Flattened Shoulder Posture (L) Rounded,(R) Rounded Scapula Posture (L) Protracted,(R) Protracted Arm Posture (L) Internally Rotated,(R) Internally Rotated Palpation Assessment Location mid thoracic Palpation Location luisa T7-T10 Palpation Findings Soft Tissue Tightness, Tenderness right IT band Palpation Findings Soft Tissue Tightness,Muscle Guarding,Tenderness PT-OP-K Range of Motion Start: 12/04/22 16:50 Freq: Status: Active Protocol: Document 12/05/22 09:03 [facility] (Rec: 12/05/22 10:26 [facility] [id number]) Cervical Spine Range of Motion Cervical Spine Active ROM Limitations Soft Tissue Tightness,Pain Comments mod dec all motions Lumbar Spine Range of Motion Lumbar Spine Active ROM Limitations Soft Tissue Tightness,Bony Restriction,Pain Comments mod dec luisa Shoulder Goniometric Range of Motion Shoulder Measured in Degrees luisa Shoulder ROM WFL Yes Shoulder ROM Limitations Shoulder ROM Limitations Soft Tissue Tightness Comments mod decrease luisa Hip Goniometric Range of Motion Hip Measured in Degrees Right Hip ROM WFL No Comments mod dec IT band flex with TTP Left Hip ROM WFL Yes Hip ROM Limitations Hip ROM Limitations Soft Tissue Tightness,Muscle Weakness,Pain PT-OP-Q Treatments Start: 12/04/22 16:50 Freq: Status: Active Protocol: Document 01/31/23 09:31 [facility] (Rec: 01/31/23 10:19 [facility] [id number]) Cardio Equipment Recumbent Stepper (Sci-Fit) Duration (Minutes) 17 Resistance 2.5 Seat Position 12 Other 1.68 Therapeutic Exercises Sitting Exercises chin tuck Reps/Minutes 5x5 scapular retraction Sitting Exercise Name passive>AAROM>AROM Reps/Minutes 8 min deep breathing Reps/Minutes 5x2 Comments 1:2 inhale:exhale Standing Exercises Shoulder Equipment Used L1 TB. Reps/Minutes 10x doorway stretch Reps/Minutes 2x10 Comments gentle due to prior irritation with too aggressive shoulder ext Equipment Used L1 TB Reps/Minutes 10x Comments verbal and tactile cues row Equipment Used L1 TB Reps/Minutes 10x Comments verbal and tactile cues Manual Therapy Treatment Taping thoracic spine Body Location braline thoracic spine space correction x 2 I strips Treatment Focus pain relief Type of Tape kinesiotape Skin Inspection intact Comments 2 I strips right IT band Treatment Focus inhibition Type of Tape kinesio Skin Inspection intact Comments 2 I strips PT-OP-R Modalities Start: 12/04/22 16:50 Freq: Status: Active Protocol: Document 01/31/23 09:31 [facility] (Rec: 01/31/23 10:19 [facility] [id number]) Hot Pack/Cold Pack Treatment Hot Pack Location thoracic spine, c/s, IT band R Patient Position Sitting Treatment Duration (minutes) 15 Patient Tolerance Good PT-OP-T Assessment and Plan Start: 12/04/22 16:50 Freq: Status: Active Protocol: Document 01/31/23 09:31 [facility] (Rec: 01/31/23 10:19 [facility] [id number]) Physical Therapy Assessment Goals Three Impairment postural dysfunction Impairment moderate to severe inc in kyphosis and protracted scapulas and IR shoulders, moderate fwd head and dowager' s hump. Short Term Goal (STG) patient to be instructed in neutral posture and postural correction exercises, positioning in sitting and in bed for improved postural health 01/29/23: goal met STG Duration goal met Half-Way Goal (LTG) Patient to be independent and compliant with HEP including postural correction and demonstrate improved postural awareness at rest and with function LTG Duration 05/03/23 Two Impairment activity tolerance Impairment Constant pain limiting sleep and all physical activity moderately by 75% per patient report Short Term Goal (STG) Patient able to resume 50% usual activities in the home and community due to dec in pain and report ability to sleep for at least 4 hour stretch at a time 01/29/23: goal progress. Limited by long-Covid symptoms of fatigue and SOB STG Duration 04/02/23 Half-Way Goal (LTG) Patient able to resume 75% usual activities in the home and community due to decrease in pain and report ability to sleep for at least 5-6 hour stretch at a time as measure of improved function LTG Duration 05/03/23 One Impairment pain as high as 8/10 mid thoracic and IT band right Short Term Goal (STG) Patient to report pain no greater than 5/10 with all usual activities 01/29/23: goal progress, less intense majority of time but with occasional stabs of pain especially ITB STG Duration 01/05/23 [facility] [employer] Goal (LTG) Patient to report pain to no greater than 3/10 with all usual activities LTG Duration 05/03/23 Assessment Summary Assessment Patient continues to be limited by fatigue and SOB s/p COVID. Increased manual today with emphasis on postural correction, trigger point and muscular release thoracic spine and scapula, anterior chain flexibility. Improved performance of theraband exercises, inc scapular movement with less UT overactivation. Good progress toward goals, good compliance with HEP. Would benefit from further PT to help her fully achieve the above goals. We will have a gap of treatment while PT gone on vacation 1 month. Physical Therapy Plan Frequency and Duration Frequency of Treatment 2x/Week Duration of treatment (weeks) 12 Plan of Care Start Date 01/31/23 Plan of Care End Date 05/03/23 Therapeutic Interventions Therapeutic Interventions Home Exercise Program,Manual Therapy,Orthotic/Prosthetic Management,Patient/Caregiver Education,Self-Care/Home Management,Soft Tissue Mobilization,Taping, Therapeutic Activities, Therapeutic Exercises Modalities Cold Pack/Ice Massage,Electric Stimulation,Hot Packs, Infrared Therapy,Ultrasound Next Visit Focus/Plan Next Note Type Treatment Note Next Visit Plan band. Continue ther ex for postural correction, strengthening, manual techniques. Modalities and manual techniques PRN.
--- NOTE | 2023-02-05 15:02 | PT.OTN ---
Current Diagnoses Other chronic pain (02/05/23) Pain in thoracic spine (02/05/23) Abnormal posture (02/05/23) Weakness (02/05/23) Physical Therapy Treatment Note PT-OP-A Visit Information Start: 12/04/22 16:50 Freq: Status: Active Protocol: Document 02/05/23 10:29 [facility] (Rec: 02/05/23 11:18 [facility] [id number]) Out-Patient Physical Therapy Visit Information Visit Information Visit Type Treatment Note Visit Start Time 10:30 Visit Stop Time 11:30 Total Visit Minutes 60 Visit Number 12 PT-OP-B Current Condition Start: 12/04/22 16:50 Freq: Status: Active Protocol: Document 02/05/23 10:29 [facility] (Rec: 02/05/23 11:18 [facility] [id number]) Current Condition History of Current Condition Onset Date 2 years Current Complaints rib pain, IT band pain History of Current Condition thoracic pain between shoulder blades at bra line laterally, posterior ribs, some help with OMT states Dr. Torres put rib back in place. Has tried to modify activities but persists. Feels best when leans back and pushes body into chair. 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 Doing shoulder blade squeeze, forward bent on ball, LTR. Also c/o excrutiating pain right IT band; has been using tennis ball for self massage. Increase in pain with bending forward, an just be sitting; stabbing pain, also N/T same area. Has gotten a recumbant exercise bike but hasn't used yet per Dr. Torres telling her she could make IT band pain worse if used bike incorrectly . Will be leaving on December 28 to due to of brother. Prior Treatments and Tests OMT with Dr. Torres Prior PT with this PT Treatment Goals Patient/Caregiver Goals dec pain, improve posture, strength, dec muscle tension PT-OP-C Subjective Start: 12/04/22 16:50 Freq: Status: Active Protocol: Document 02/05/23 10:29 [facility] (Rec: 02/05/23 11:18 [facility] [id number]) OP-PT Subjective Patient Comments Patient Comments Struggling with the heat, continues with post-Covid symptoms, waves of weakness. Both shoulders irritated right now, maybe overdoing with band exercises or doorway stretch PT-OP-J Posture/Palpation/Skin Start: 12/04/22 16:50 Freq: Status: Active Protocol: Document 12/05/22 09:03 [facility] (Rec: 12/05/22 10:26 [facility] [id number]) Posture Evaluation Position Sitting Head/C-Spine Posture Forward Head T-Spine Posture Increased Kyphosis L-Spine Posture Flattened Shoulder Posture (L) Rounded,(R) Rounded Scapula Posture (L) Protracted,(R) Protracted Arm Posture (L) Internally Rotated,(R) Internally Rotated Palpation Assessment Location mid thoracic Palpation Location luisa T7-T10 Palpation Findings Soft Tissue Tightness, Tenderness right IT band Palpation Findings Soft Tissue Tightness,Muscle Guarding,Tenderness PT-OP-K Range of Motion Start: 12/04/22 16:50 Freq: Status: Active Protocol: Document 12/05/22 09:03 [facility] (Rec: 12/05/22 10:26 [facility] [id number]) Cervical Spine Range of Motion Cervical Spine Active ROM Limitations Soft Tissue Tightness,Pain Comments mod dec all motions Lumbar Spine Range of Motion Lumbar Spine Active ROM Limitations Soft Tissue Tightness,Bony Restriction,Pain Comments mod dec luisa Shoulder Goniometric Range of Motion Shoulder luisa Shoulder ROM WFL Yes Shoulder ROM Limitations Shoulder ROM Limitations Soft Tissue Tightness Comments mod decrease luisa Hip Goniometric Range of Motion Hip Right Hip ROM WFL No Comments mod dec IT band flex with TTP Left Hip ROM WFL Yes Hip ROM Limitations Hip ROM Limitations Soft Tissue Tightness,Muscle Weakness,Pain PT-OP-Q Treatments Start: 12/04/22 16:50 Freq: Status: Active Protocol: Document 02/05/23 10:29 [facility] (Rec: 02/05/23 11:18 [facility] [id number]) Cardio Equipment Recumbent Stepper (Sci-Fit) Duration (Minutes) 18 Resistance 2.5 Seat Position 12 Other 1.75 mi Therapeutic Exercises Sitting Exercises scapular retraction Sitting Exercise Name passive>AAROM>AROM Reps/Minutes 2 min Comments c/o pain with end-range passive Standing Exercises shoulder ext Equipment Used L1 TB Reps/Minutes 10x Comments verbal and tactile cues row Equipment Used L1 TB Reps/Minutes 10x Comments verbal and tactile cues Manual Therapy Treatment Taping thoracic spine Body Location braline thoracic spine space correction x 2 I strips Treatment Focus pain relief Type of Tape kinesiotape Skin Inspection intact Comments 2 I strips right IT band Treatment Focus inhibition Type of Tape kinesio Skin Inspection intact Comments 2 I strips PT-OP-R Modalities Start: 12/04/22 16:50 Freq: Status: Active Protocol: Document 01/31/23 09:31 [facility] (Rec: 01/31/23 10:19 [facility] [id number]) Hot Pack/Cold Pack Treatment Hot Pack Location thoracic spine, c/s, IT band R Patient Position Sitting Treatment Duration (minutes) 15 Patient Tolerance Good PT-OP-T Assessment and Plan Start: 12/04/22 16:50 Freq: Status: Active Protocol: Document 02/05/23 10:29 [facility] (Rec: 02/05/23 11:18 [facility] [id number]) Physical Therapy Assessment Goals Three Impairment postural dysfunction Impairment moderate to severe inc in kyphosis and protracted scapulas and IR shoulders, moderate fwd head and dowager' s hump. Short Term Goal (STG) patient to be instructed in neutral posture and postural correction exercises, positioning in sitting and in bed for improved postural health 01/29/23: goal met STG Duration goal met [facility] Goal (LTG) Patient to be independent and compliant with HEP including postural correction and demonstrate improved postural awareness at rest and with function LTG Duration 05/03/23 Two Impairment activity tolerance Impairment Constant pain limiting sleep and all physical activity moderately by 75% per patient report Short Term Goal (STG) Patient able to resume 50% usual activities in the home and community due to dec in pain and report ability to sleep for at least 4 hour stretch at a time 01/29/23: goal progress. Limited by long-Covid symptoms of fatigue and SOB STG Duration 04/02/23 [facility] Goal (LTG) Patient able to resume 75% usual activities in the home and community due to decrease in pain and report ability to sleep for at least 5-6 hour stretch at a time as measure of improved function LTG Duration 05/03/23 One Impairment pain as high as 8/10 mid thoracic and IT band right Short Term Goal (STG) Patient to report pain no greater than 5/10 with all usual activities 01/29/23: goal progress, less intense majority of time but with occasional stabs of pain especially ITB STG Duration 01/05/23 [facility] Goal (LTG) Patient to report pain to no greater than 3/10 with all usual activities LTG Duration 05/03/23 Assessment Summary Assessment Patient having more difficulty with activation of scapular musculature today. Inc ant shoulder pain poss due to theraband ex performed incorrectly, too aggressive with doorway stretch, or excess passive stretch by PT; cues for modification in pain- free ROM. Physical Therapy Plan Frequency and Duration Frequency of Treatment 2x/Week Duration of treatment (weeks) 12 Plan of Care Start Date 01/31/23 Plan of Care End Date 05/03/23 Therapeutic Interventions Therapeutic Interventions Home Exercise Program,Manual Therapy,Orthotic/Prosthetic Management,Patient/Caregiver Education,Self-Care/Home Management,Soft Tissue Mobilization,Taping, Therapeutic Activities, Therapeutic Exercises Modalities Cold Pack/Ice Massage,Electric Stimulation,Hot Packs, Infrared Therapy,Ultrasound Next Visit Focus/Plan Next Note Type Treatment Note Next Visit Plan Continue ther ex for postural correction, strengthening, manual techniques. Modalities and manual techniques PRN.
--- NOTE | 2023-02-07 17:02 | PT.OTN ---
Current Diagnoses Other chronic pain (02/07/23) Pain in thoracic spine (02/07/23) Abnormal posture (02/07/23) Weakness (02/07/23) Physical Therapy Treatment Note PT-OP-A Visit Information Start: 12/04/22 16:50 Freq: Status: Active Protocol: Document 02/07/23 08:47 [facility]AK (Rec: 02/07/23 09:32 [facility] [id number]) Out-Patient Physical Therapy Visit Information Visit Information Visit Type Treatment Note Visit Start Time 08:45 Visit Stop Time 09:45 Total Visit Minutes 60 Visit Number 13 PT-OP-B Current Condition Start: 12/04/22 16:50 Freq: Status: Active Protocol: Document 02/07/23 08:47 SAK (Rec: 02/07/23 09:32 [facility]AK [id number]) Current Condition History of Current Condition Onset Date 2 years Current Complaints rib pain, IT band pain History of Current Condition thoracic pain between shoulder blades at bra line laterally, posterior ribs, some help with OMT states Dr. Torres put rib back in place. Has tried to modify activities but persists. Feels best when leans back and pushes body into chair. 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 Doing shoulder blade squeeze, forward bent on ball, LTR. Also c/o excrutiating pain right IT band; has been using tennis ball for self massage. Increase in pain with bending forward, an just be sitting; stabbing pain, also N/T same area. Has gotten a recumbant exercise bike but hasn't used yet per Dr. Torres telling her she could make IT band pain worse if used bike incorrectly . Will be leaving on December 28 to due to of brother. Prior Treatments and Tests OMT with Dr. Torres Prior PT with this PT PT-OP-C Subjective Start: 12/04/22 16:50 Freq: Status: Active Protocol: Document 02/07/23 08:47 SAK (Rec: 02/07/23 09:32 SAK [id number]) OP-PT Subjective Patient Comments Patient Comments Saw personnel scheduler who confirmed fatigue and SOB post Covid symptoms. Patient upset doctor will be leaving. IT band really fired up, upper back better after PT PT-OP-J Posture/Palpation/Skin Start: 12/04/22 16:50 Freq: Status: Active Protocol: Document 12/05/22 09:03 [facility] (Rec: 12/05/22 10:26 [facility] [id number]) Posture Evaluation Position Sitting Head/C-Spine Posture Forward Head T-Spine Posture Increased Kyphosis L-Spine Posture Flattened Shoulder Posture (L) Rounded,(R) Rounded Scapula Posture (L) Protracted,(R) Protracted Arm Posture (L) Internally Rotated,(R) Internally Rotated Palpation Assessment Location mid thoracic Palpation Location luisa T7-T10 Palpation Findings Soft Tissue Tightness, Tenderness right IT band Palpation Findings Soft Tissue Tightness,Muscle Guarding,Tenderness PT-OP-K Range of Motion Start: 12/04/22 16:50 Freq: Status: Active Protocol: Document 12/05/22 09:03 [facility] (Rec: 12/05/22 10:26 [facility] [id number]) Cervical Spine Range of Motion Cervical Spine Active ROM Limitations Soft Tissue Tightness,Pain Comments mod dec all motions Lumbar Spine Range of Motion Lumbar Spine Active ROM Limitations Soft Tissue Tightness,Bony Restriction,Pain Comments mod dec luisa Shoulder Goniometric Range of Motion Shoulder luisa Shoulder ROM WFL Yes Shoulder ROM Limitations Shoulder ROM Limitations Soft Tissue Tightness Comments mod decrease luisa Hip Goniometric Range of Motion Hip Right Hip ROM WFL No Comments mod dec IT band flex with TTP Left Hip ROM WFL Yes Hip ROM Limitations Hip ROM Limitations Soft Tissue Tightness,Muscle Weakness,Pain PT-OP-Q Treatments Start: 12/04/22 16:50 Freq: Status: Active Protocol: Document 02/07/23 08:47 [facility] (Rec: 02/07/23 09:32 [facility] [id number]) Cardio Equipment Recumbent Stepper (Sci-Fit) Duration (Minutes) 18 Resistance 2.5 Seat Position 12 Other 1.75 mi Therapeutic Exercises Sitting Exercises ball squeeze Reps/Minutes 10x5 chin tuck Reps/Minutes 5x5 scapular retraction Sitting Exercise Name passive>AAROM>AROM Reps/Minutes 2 min Comments c/o pain with end-range passive Standing Exercises shoulder ext Equipment Used L1 TB Reps/Minutes 10x Comments verbal and tactile cues row Equipment Used L1 TB Reps/Minutes 10x Comments verbal and tactile cues PT-OP-R Modalities Start: 12/04/22 16:50 Freq: Status: Active Protocol: Document 02/07/23 08:47 [facility] (Rec: 02/07/23 17:02 [facility] [id number]) Hot Pack/Cold Pack Treatment Hot Pack Location thoracic spine, IT band R Patient Position Sitting Treatment Duration (minutes) 15 Patient Tolerance Good PT-OP-T Assessment and Plan Start: 12/04/22 16:50 Freq: Status: Active Protocol: Document 02/07/23 08:47 [facility] (Rec: 02/07/23 09:32 [facility] [id number]) Physical Therapy Assessment Goals Three Impairment postural dysfunction Impairment moderate to severe inc in kyphosis and protracted scapulas and IR shoulders, moderate fwd head and dowager' s hump. Short Term Goal (STG) patient to be instructed in neutral posture and postural correction exercises, positioning in sitting and in bed for improved postural health 01/29/23: goal met STG Duration goal met [facility]iary Goal (LTG) Patient to be independent and compliant with HEP including postural correction and demonstrate improved postural awareness at rest and with function LTG Duration 05/03/23 Two Impairment activity tolerance Impairment Constant pain limiting sleep and all physical activity moderately by 75% per patient report Short Term Goal (STG) Patient able to resume 50% usual activities in the home and community due to dec in pain and report ability to sleep for at least 4 hour stretch at a time 01/29/23: goal progress. Limited by long-Covid symptoms of fatigue and SOB STG Duration 04/02/23 Penitentiary Goal (LTG) Patient able to resume 75% usual activities in the home and community due to decrease in pain and report ability to sleep for at least 5-6 hour stretch at a time as measure of improved function LTG Duration 05/03/23 One Impairment pain as high as 8/10 mid thoracic and IT band right Short Term Goal (STG) Patient to report pain no greater than 5/10 with all usual activities 01/29/23: goal progress, less intense majority of time but with occasional stabs of pain especially ITB STG Duration 01/05/23 [facility]iary Goal (LTG) Patient to report pain to no greater than 3/10 with all usual activities LTG Duration 05/03/23 Progress Towards Goals Progress Towards Goals Slow Progress due to Medical Issues Assessment Summary Assessment Increased time spent on postural education due to patient having difficulty with daily tasks including loading dischwasher. Use of yardstick for cues for spinal lengthening. Mod verbal and tactile cues for theraband exercises. Patient fatigue from post-Covid continues to affect progress. Physical Therapy Plan Frequency and Duration Frequency of Treatment 2x/Week Duration of treatment (weeks) 12 Plan of Care Start Date 01/31/23 Plan of Care End Date 05/03/23 Therapeutic Interventions Therapeutic Interventions Home Exercise Program,Manual Therapy,Orthotic/Prosthetic Management,Patient/Caregiver Education,Self-Care/Home Management,Soft Tissue Mobilization,Taping, Therapeutic Activities, Therapeutic Exercises Modalities Cold Pack/Ice Massage,Electric Stimulation,Hot Packs, Infrared Therapy,Ultrasound Next Visit Focus/Plan Next Note Type Treatment Note Next Visit Plan Continue ther ex for postural correction, strengthening, manual techniques. Modalities and manual techniques PRN.
--- NOTE | 2023-02-12 16:22 | PT.OTN ---
Current Diagnoses Other chronic pain (02/12/23) Pain in thoracic spine (02/12/23) Abnormal posture (02/12/23) Weakness (02/12/23) Physical Therapy Treatment Note PT-OP-A Visit Information Start: 12/04/22 16:50 Freq: Status: Active Protocol: Document 02/12/23 10:24 [facility] (Rec: 02/12/23 11:12 [facility] [id number]) Out-Patient Physical Therapy Visit Information Visit Information Visit Type Treatment Note Visit Start Time 10:30 Visit Stop Time 11:30 Total Visit Minutes 60 Visit Number 14 PT-OP-B Current Condition Start: 12/04/22 16:50 Freq: Status: Active Protocol: Document 02/12/23 10:24 [facility]AK (Rec: 02/12/23 11:12 [facility] [id number]) Current Condition History of Current Condition Onset Date 2 years Current Complaints rib pain, IT band pain History of Current Condition thoracic pain between shoulder blades at bra line laterally, posterior ribs, some help with OMT states Dr. Torres put rib back in place. Has tried to modify activities but persists. Feels best when leans back and pushes body into chair. 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 Doing shoulder blade squeeze, forward bent on ball, LTR. Also c/o excrutiating pain right IT band; has been using tennis ball for self massage. Increase in pain with bending forward, an just be sitting; stabbing pain, also N/T same area. Has gotten a recumbant exercise bike but hasn't used yet per Dr. Torres telling her she could make IT band pain worse if used bike incorrectly . Will be leaving on December 28 to due to of brother. Prior Treatments and Tests OMT with Dr. Torres Prior PT with this PT Treatment Goals Patient/Caregiver Goals dec pain, improve posture, strength, dec muscle tension PT-OP-C Subjective Start: 12/04/22 16:50 Freq: Status: Active Protocol: Document 02/12/23 10:24 [facility]AK (Rec: 02/12/23 11:12 [facility] [id number]) OP-PT Subjective Patient Comments Patient Comments Reports tape came off leg right away last time. Some improvement in pain,energy level low. PT-OP-J Posture/Palpation/Skin Start: 12/04/22 16:50 Freq: Status: Active Protocol: Document 12/05/22 09:03 [facility] (Rec: 12/05/22 10:26 [facility] [id number]) Posture Evaluation Position Sitting Head/C-Spine Posture Forward Head T-Spine Posture Increased Kyphosis L-Spine Posture Flattened Shoulder Posture (L) Rounded,(R) Rounded Scapula Posture (L) Protracted,(R) Protracted Arm Posture (L) Internally Rotated,(R) Internally Rotated Palpation Assessment Location mid thoracic Palpation Location luisa T7-T10 Palpation Findings Soft Tissue Tightness, Tenderness right IT band Palpation Findings Soft Tissue Tightness,Muscle Guarding,Tenderness PT-OP-K Range of Motion Start: 12/04/22 16:50 Freq: Status: Active Protocol: Document 12/05/22 09:03 [facility] (Rec: 12/05/22 10:26 [facility] [id number]) Cervical Spine Range of Motion Cervical Spine Active ROM Limitations Soft Tissue Tightness,Pain Comments mod dec all motions Lumbar Spine Range of Motion Lumbar Spine Active ROM Limitations Soft Tissue Tightness,Bony Restriction,Pain Comments mod dec luisa Shoulder Goniometric Range of Motion Shoulder luisa Shoulder ROM WFL Yes Shoulder ROM Limitations Shoulder ROM Limitations Soft Tissue Tightness Comments mod decrease luisa Hip Goniometric Range of Motion Hip Right Hip ROM WFL No Comments mod dec IT band flex with TTP Left Hip ROM WFL Yes Hip ROM Limitations Hip ROM Limitations Soft Tissue Tightness,Muscle Weakness,Pain PT-OP-Q Treatments Start: 12/04/22 16:50 Freq: Status: Active Protocol: Document 02/12/23 10:24 [facility] (Rec: 02/12/23 11:12 [facility] [id number]) Cardio Equipment Recumbent Stepper (Sci-Fit) Duration (Minutes) 18 Resistance 2.5 Seat Position 10 Other 1.75 mi Therapeutic Exercises Sitting Exercises ball squeeze Reps/Minutes 10x5 chin tuck Reps/Minutes 5x5 scapular retraction Sitting Exercise Name passive>AAROM>AROM Reps/Minutes 2 min Comments c/o pain with end-range passive Standing Exercises Shoulder Standing Exercise Name ER Equipment Used L1 TB Reps/Minutes 10x5 Comments wall for postural cues shoulder ext Equipment Used L1 TB Reps/Minutes 10x Comments verbal and tactile cues row Equipment Used L1 TB Reps/Minutes 10x Comments verbal and tactile cues Manual Therapy Treatment Soft Tissue Mobilization IT band Mobilization Type Myofascial Release,Strumming, Sustained Pressure Intensity/Depth Moderate Body Position Sitting UT, thoracic paraspinals, periscapular mm Intensity/Depth Moderate Body Position Sitting Comments towel roll behind thoracic spine PT-OP-R Modalities Start: 12/04/22 16:50 Freq: Status: Active Protocol: Document 02/12/23 10:24 [facility] (Rec: 02/12/23 11:12 [facility] [id number]) Hot Pack/Cold Pack Treatment Hot Pack Location thoracic spine, IT band R Patient Position Sitting Treatment Duration (minutes) 15 Patient Tolerance Good Ultrasound Therapy Treatment IT band Treatment Duration (minutes) 8 Patient Position Sitting Frequency Setting (mHz) 1 Mode Setting Continuous Duty Cycle 100 Intensity Setting (w/cm2) 1.4 Comments right ITB PT-OP-T Assessment and Plan Start: 12/04/22 16:50 Freq: Status: Active Protocol: Document 02/12/23 10:24 [facility] (Rec: 02/12/23 11:12 [facility] [id number]) Physical Therapy Assessment Goals Three Impairment postural dysfunction Impairment moderate to severe inc in kyphosis and protracted scapulas and IR shoulders, moderate fwd head and dowager' s hump. Short Term Goal (STG) patient to be instructed in neutral posture and postural correction exercises, positioning in sitting and in bed for improved postural health 01/29/23: goal met STG Duration goal met Rubber Worker Goal (LTG) Patient to be independent and compliant with HEP including postural correction and demonstrate improved postural awareness at rest and with function LTG Duration 05/03/23 Two Impairment activity tolerance Impairment Constant pain limiting sleep and all physical activity moderately by 75% per patient report Short Term Goal (STG) Patient able to resume 50% usual activities in the home and community due to dec in pain and report ability to sleep for at least 4 hour stretch at a time 01/29/23: goal progress. Limited by long-Covid symptoms of fatigue and SOB STG Duration 04/02/23 Rubber Worker Goal (LTG) Patient able to resume 75% usual activities in the home and community due to decrease in pain and report ability to sleep for at least 5-6 hour stretch at a time as measure of improved function LTG Duration 05/03/23 One Impairment pain as high as 8/10 mid thoracic and IT band right Short Term Goal (STG) Patient to report pain no greater than 5/10 with all usual activities 01/29/23: goal progress, less intense majority of time but with occasional stabs of pain especially ITB STG Duration 01/05/23 [facility] Goal (LTG) Patient to report pain to no greater than 3/10 with all usual activities LTG Duration 05/03/23 Progress Towards Goals Progress Towards Goals Slow Progress due to Activity Tolerance Assessment Summary Assessment Patient demonstrating improved compliance to HEP, improved tolerance for deep tissue work distal IT band. Has obtained another ball for use thoracic spine to encourage extension as worked on in PT. Patient awaiting delievery of kinesiotape for home use; continues to benefit. Physical Therapy Plan Frequency and Duration Frequency of Treatment 2x/Week Duration of treatment (weeks) 12 Plan of Care Start Date 01/31/23 Plan of Care End Date 05/03/23 Therapeutic Interventions Therapeutic Interventions Home Exercise Program,Manual Therapy,Orthotic/Prosthetic Management,Patient/Caregiver Education,Self-Care/Home Management,Soft Tissue Mobilization,Taping, Therapeutic Activities, Therapeutic Exercises Modalities Cold Pack/Ice Massage,Electric Stimulation,Hot Packs, Infrared Therapy,Ultrasound Next Visit Focus/Plan Next Note Type Treatment Note Next Visit Plan 1 further PT visit, then on hold until this PT returns from vacation.
--- NOTE | 2023-02-14 09:27 | PT.OTN ---
Current Diagnoses Other chronic pain (02/14/23) Pain in thoracic spine (02/14/23) Abnormal posture (02/14/23) Weakness (02/14/23) Physical Therapy Treatment Note PT-OP-A Visit Information Start: 12/04/22 16:50 Freq: Status: Active Protocol: Document 02/14/23 08:45 [facility] (Rec: 02/14/23 09:27 [facility] [id number]) Out-Patient Physical Therapy Visit Information Visit Information Visit Type Treatment Note Visit Start Time 08:45 Visit Stop Time 09:45 Total Visit Minutes 60 Visit Number 15 PT-OP-B Current Condition Start: 12/04/22 16:50 Freq: Status: Active Protocol: Document 02/12/23 10:24 [facility] (Rec: 02/12/23 11:12 [facility] [id number]) Current Condition History of Current Condition Onset Date 2 years Current Complaints rib pain, IT band pain History of Current Condition thoracic pain between shoulder blades at bra line laterally, posterior ribs, some help with OMT states Dr. Torres put rib back in place. Has tried to modify activities but persists. Feels best when leans back and pushes body into chair. 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 Doing shoulder blade squeeze, forward bent on ball, LTR. Also c/o excrutiating pain right IT band; has been using tennis ball for self massage. Increase in pain with bending forward, an just be sitting; stabbing pain, also N/T same area. Has gotten a recumbant exercise bike but hasn't used yet per Dr. Torres telling her she could make IT band pain worse if used bike incorrectly . Will be leaving on December 28 to due to of brother. Prior Treatments and Tests OMT with Dr. Torres Prior PT with this PT Treatment Goals Patient/Caregiver Goals dec pain, improve posture, strength, dec muscle tension PT-OP-C Subjective Start: 12/04/22 16:50 Freq: Status: Active Protocol: Document 02/12/23 10:24 [facility] (Rec: 02/12/23 11:12 [facility] [id number]) OP-PT Subjective Patient Comments Patient Comments Reports tape came off leg right away last time. Some improvement in pain,energy level low. PT-OP-J Posture/Palpation/Skin Start: 12/04/22 16:50 Freq: Status: Active Protocol: Document 12/05/22 09:03 [facility] (Rec: 12/05/22 10:26 [facility] [id number]) Posture Evaluation Position Sitting Head/C-Spine Posture Forward Head T-Spine Posture Increased Kyphosis L-Spine Posture Flattened Shoulder Posture (L) Rounded,(R) Rounded Scapula Posture (L) Protracted,(R) Protracted Arm Posture (L) Internally Rotated,(R) Internally Rotated Palpation Assessment Location mid thoracic Palpation Location luisa T7-T10 Palpation Findings Soft Tissue Tightness, Tenderness right IT band Palpation Findings Soft Tissue Tightness,Muscle Guarding,Tenderness PT-OP-K Range of Motion Start: 12/04/22 16:50 Freq: Status: Active Protocol: Document 12/05/22 09:03 [facility] (Rec: 12/05/22 10:26 [facility] [id number]) Cervical Spine Range of Motion Cervical Spine Active ROM Limitations Soft Tissue Tightness,Pain Comments mod dec all motions Lumbar Spine Range of Motion Lumbar Spine Active ROM Limitations Soft Tissue Tightness,Bony Restriction,Pain Comments mod dec luisa Shoulder Goniometric Range of Motion Shoulder luisa Shoulder ROM WFL Yes Shoulder ROM Limitations Shoulder ROM Limitations Soft Tissue Tightness Comments mod decrease luisa Hip Goniometric Range of Motion Hip Right Hip ROM WFL No Comments mod dec IT band flex with TTP Left Hip ROM WFL Yes Hip ROM Limitations Hip ROM Limitations Soft Tissue Tightness,Muscle Weakness,Pain PT-OP-Q Treatments Start: 12/04/22 16:50 Freq: Status: Active Protocol: Document 02/14/23 08:45 [facility] (Rec: 02/14/23 09:27 [facility] [id number]) Cardio Equipment Recumbent Stepper (Sci-Fit) Duration (Minutes) 15 Resistance 2.5 Seat Position 10 Therapeutic Exercises Standing Exercises Shoulder Standing Exercise Name ER Equipment Used L1 TB Reps/Minutes 10x5 Comments wall for postural cues shoulder ext Equipment Used L1 TB Reps/Minutes 10x Comments verbal and tactile cues row Equipment Used L1 TB Reps/Minutes 10x Comments verbal and tactile cues Manual Therapy Treatment Soft Tissue Mobilization IT band Mobilization Type Myofascial Release,Strumming, Sustained Pressure Intensity/Depth Moderate Body Position Sitting UT, thoracic paraspinals, periscapular mm Intensity/Depth Moderate Body Position Sitting Comments towel roll behind thoracic spine Taping thoracic spine Body Location braline thoracic spine space correction x 2 I strips Treatment Focus pain relief Type of Tape kinesiotape Skin Inspection intact Comments 2 I strips right IT band Treatment Focus inhibition Type of Tape kinesio Skin Inspection intact Comments 2 I strips PT-OP-R Modalities Start: 12/04/22 16:50 Freq: Status: Active Protocol: Document 02/14/23 08:45 [facility] (Rec: 02/14/23 09:27 [facility] [id number]) Hot Pack/Cold Pack Treatment Hot Pack Location thoracic spine, IT band R Patient Position Sitting Treatment Duration (minutes) 15 Patient Tolerance Good Ultrasound Therapy Treatment IT band Treatment Duration (minutes) 8 Patient Position Sitting Frequency Setting (mHz) 1 Mode Setting Continuous Duty Cycle 100 Intensity Setting (w/cm2) 1.4 Comments right ITB PT-OP-T Assessment and Plan Start: 12/04/22 16:50 Freq: Status: Active Protocol: Document 02/14/23 08:45 [facility] (Rec: 02/14/23 09:27 [facility] [id number]) Physical Therapy Assessment Goals Three Impairment postural dysfunction Impairment moderate to severe inc in kyphosis and protracted scapulas and IR shoulders, moderate fwd head and dowager' s hump. Short Term Goal (STG) patient to be instructed in neutral posture and postural correction exercises, positioning in sitting and in bed for improved postural health 01/29/23: goal met STG Duration goal met Information Systems Auditor Goal (LTG) Patient to be independent and compliant with HEP including postural correction and demonstrate improved postural awareness at rest and with function LTG Duration 05/03/23 Two Impairment activity tolerance Impairment Constant pain limiting sleep and all physical activity moderately by 75% per patient report Short Term Goal (STG) Patient able to resume 50% usual activities in the home and community due to dec in pain and report ability to sleep for at least 4 hour stretch at a time 01/29/23: goal progress. Limited by long-Covid symptoms of fatigue and SOB STG Duration 04/02/23 Information Systems Auditor Goal (LTG) Patient able to resume 75% usual activities in the home and community due to decrease in pain and report ability to sleep for at least 5-6 hour stretch at a time as measure of improved function LTG Duration 05/03/23 One Impairment pain as high as 8/10 mid thoracic and IT band right Short Term Goal (STG) Patient to report pain no greater than 5/10 with all usual activities 01/29/23: goal progress, less intense majority of time but with occasional stabs of pain especially ITB STG Duration 01/05/23 [facility]way Goal (LTG) Patient to report pain to no greater than 3/10 with all usual activities LTG Duration 05/03/23 Progress Towards Goals Progress Towards Goals Slow Progress due to Activity Tolerance Assessment Summary Assessment Patient felt difference without taping to right IT band, much more pain. Has ordered tape for home use. Will continue with self- management, HEP until follow up with PT when I return from 1 month vacation Physical Therapy Plan Frequency and Duration Frequency of Treatment 2x/Week Duration of treatment (weeks) 12 Plan of Care Start Date 01/31/23 Plan of Care End Date 05/03/23 Therapeutic Interventions Therapeutic Interventions Home Exercise Program,Manual Therapy,Orthotic/Prosthetic Management,Patient/Caregiver Education,Self-Care/Home Management,Soft Tissue Mobilization,Taping, Therapeutic Activities, Therapeutic Exercises Modalities Cold Pack/Ice Massage,Electric Stimulation,Hot Packs, Infrared Therapy,Ultrasound Next Visit Focus/Plan Next Note Type Re-Evaluation Next Visit Plan reassess when PT returns from vacation. Consider continued PT as indicated.
--- NOTE | 2023-03-20 08:00 | PT-OP ANOTE ---
cancelled due to appointment conflict
--- NOTE | 2023-03-22 07:56 | PT-OP ANOTE ---
cancelled PT due to eye appointment
--- NOTE | 2023-03-26 16:06 | PT.OTN ---
Current Diagnoses Other chronic pain (03/26/23) Pain in thoracic spine (03/26/23) Abnormal posture (03/26/23) Weakness (03/26/23) Physical Therapy Treatment Note PT-OP-A Visit Information Start: 12/04/22 16:50 Freq: Status: Active Protocol: Document 03/26/23 08:47 [facility] (Rec: 03/26/23 09:33 [facility] [id number]) Out-Patient Physical Therapy Visit Information Visit Information Visit Type Treatment Note Visit Start Time 08:47 Visit Stop Time 09:47 Total Visit Minutes 60 Visit Number 16 PT-OP-B Current Condition Start: 12/04/22 16:50 Freq: Status: Active Protocol: Document 02/12/23 10:24 [facility] (Rec: 02/12/23 11:12 [facility] [id number]) Current Condition History of Current Condition Onset Date 2 years Current Complaints rib pain, IT band pain History of Current Condition thoracic pain between shoulder blades at bra line laterally, posterior ribs, some help with OMT states Dr. Torres put rib back in place. Has tried to modify activities but persists. Feels best when leans back and pushes body into chair. 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 Doing shoulder blade squeeze, forward bent on ball, LTR. Also c/o excrutiating pain right IT band; has been using tennis ball for self massage. Increase in pain with bending forward, an just be sitting; stabbing pain, also N/T same area. Has gotten a recumbant exercise bike but hasn't used yet per Dr. Torres telling her she could make IT band pain worse if used bike incorrectly . Will be leaving on December 28 to due to of brother. Prior Treatments and Tests OMT with Dr. Torres Prior PT with this PT Treatment Goals Patient/Caregiver Goals dec pain, improve posture, strength, dec muscle tension PT-OP-C Subjective Start: 12/04/22 16:50 Freq: Status: Active Protocol: Document 03/26/23 08:47 [facility] (Rec: 03/26/23 16:06 [facility] [id number]) OP-PT Subjective Patient Comments Patient Comments Reports pain has increased with multiple medical issues including eye injection with adverse reaction, persistent post-Covid fatigue. Pain increased in mid back and IT band since last seen in PT. PT-OP-J Posture/Palpation/Skin Start: 12/04/22 16:50 Freq: Status: Active Protocol: Document 12/05/22 09:03 [facility] (Rec: 12/05/22 10:26 [facility] [id number]) Posture Evaluation Position Sitting Head/C-Spine Posture Forward Head T-Spine Posture Increased Kyphosis L-Spine Posture Flattened Shoulder Posture (L) Rounded,(R) Rounded Scapula Posture (L) Protracted,(R) Protracted Arm Posture (L) Internally Rotated,(R) Internally Rotated Palpation Assessment Location mid thoracic Palpation Location luisa T7-T10 Palpation Findings Soft Tissue Tightness, Tenderness right IT band Palpation Findings Soft Tissue Tightness,Muscle Guarding,Tenderness PT-OP-K Range of Motion Start: 12/04/22 16:50 Freq: Status: Active Protocol: Document 12/05/22 09:03 [facility] (Rec: 12/05/22 10:26 [facility] [id number]) Cervical Spine Range of Motion Cervical Spine Active ROM Limitations Soft Tissue Tightness,Pain Comments mod dec all motions Lumbar Spine Range of Motion Lumbar Spine Active ROM Limitations Soft Tissue Tightness,Bony Restriction,Pain Comments mod dec luisa Shoulder Goniometric Range of Motion Shoulder luisa Shoulder ROM WFL Yes Shoulder ROM Limitations Shoulder ROM Limitations Soft Tissue Tightness Comments mod decrease luisa Hip Goniometric Range of Motion Hip Right Hip ROM WFL No Comments mod dec IT band flex with TTP Left Hip ROM WFL Yes Hip ROM Limitations Hip ROM Limitations Soft Tissue Tightness,Muscle Weakness,Pain PT-OP-Q Treatments Start: 12/04/22 16:50 Freq: Status: Active Protocol: Document 03/26/23 08:47 [facility] (Rec: 03/26/23 09:33 [facility] [id number]) Cardio Equipment Recumbent Stepper (Sci-Fit) Duration (Minutes) 15 Resistance 2.0 Seat Position 10 Therapeutic Exercises Standing Exercises shoulder ext Equipment Used L1 TB Reps/Minutes 10x Comments verbal and tactile cues row Equipment Used L1 TB Reps/Minutes 10x Comments verbal and tactile cues Manual Therapy Treatment Soft Tissue Mobilization UT, thoracic paraspinals, periscapular mm Intensity/Depth Moderate Body Position Sitting Comments towel roll behind thoracic spine Taping thoracic spine Body Location braline thoracic spine space correction x 2 I strips Treatment Focus pain relief Type of Tape kinesiotape Skin Inspection intact Comments 2 I strips right IT band Treatment Focus inhibition Type of Tape kinesio Skin Inspection intact Comments 2 I strips PT-OP-R Modalities Start: 12/04/22 16:50 Freq: Status: Active Protocol: Document 03/26/23 08:47 [facility] (Rec: 03/26/23 16:06 [facility] [id number]) Hot Pack/Cold Pack Treatment Hot Pack Location thoracic spine, IT band R Patient Position Sitting Treatment Duration (minutes) 15 Patient Tolerance Good Ultrasound Therapy Treatment mid thoracic paraspinals Treatment Duration (minutes) 8 Patient Position Sitting Frequency Setting (mHz) 1 Duty Cycle 100% Intensity Setting (w/cm2) 1.4 PT-OP-T Assessment and Plan Start: 12/04/22 16:50 Freq: Status: Active Protocol: Document 03/26/23 08:47 [facility] (Rec: 03/26/23 09:33 [facility] [id number]) Physical Therapy Assessment Goals Three Impairment postural dysfunction Impairment moderate to severe inc in kyphosis and protracted scapulas and IR shoulders, moderate fwd head and dowager' s hump. Short Term Goal (STG) patient to be instructed in neutral posture and postural correction exercises, positioning in sitting and in bed for improved postural health 01/29/23: goal met STG Duration goal met Alf Goal (LTG) Patient to be independent and compliant with HEP including postural correction and demonstrate improved postural awareness at rest and with function LTG Duration 05/03/23 Two Impairment activity tolerance Impairment Constant pain limiting sleep and all physical activity moderately by 75% per patient report Short Term Goal (STG) Patient able to resume 50% usual activities in the home and community due to dec in pain and report ability to sleep for at least 4 hour stretch at a time 01/29/23: goal progress. Limited by long-Covid symptoms of fatigue and SOB STG Duration 04/02/23 Efficiency Expert Goal (LTG) Patient able to resume 75% usual activities in the home and community due to decrease in pain and report ability to sleep for at least 5-6 hour stretch at a time as measure of improved function LTG Duration 05/03/23 One Impairment pain as high as 8/10 mid thoracic and IT band right Short Term Goal (STG) Patient to report pain no greater than 5/10 with all usual activities 01/29/23: goal progress, less intense majority of time but with occasional stabs of pain especially ITB STG Duration 04/02/23 Efficiency Expert Goal (LTG) Patient to report pain to no greater than 3/10 with all usual activities LTG Duration 05/03/23 Assessment Summary Assessment Increased pain without PT, focus on other medical issues and appointments. Fatigue remains high. Would benefit from further PT Physical Therapy Plan Frequency and Duration Frequency of Treatment 2x/Week Duration of treatment (weeks) 12 Plan of Care Start Date 01/31/23 Plan of Care End Date 05/03/23 Therapeutic Interventions Therapeutic Interventions Home Exercise Program,Manual Therapy,Orthotic/Prosthetic Management,Patient/Caregiver Education,Self-Care/Home Management,Soft Tissue Mobilization,Taping, Therapeutic Activities, Therapeutic Exercises Modalities Cold Pack/Ice Massage,Electric Stimulation,Hot Packs, Infrared Therapy,Ultrasound Next Visit Focus/Plan Next Note Type Treatment Note Next Visit Plan Continue PT for pain management, postural correction, strengthening, soft tissue mobilization. Modalities and manual therapy PRN.
--- NOTE | 2023-04-03 15:31 | PT.OTN ---
Current Diagnoses Other chronic pain (04/03/23) Pain in thoracic spine (04/03/23) Abnormal posture (04/03/23) Weakness (04/03/23) Physical Therapy Treatment Note PT-OP-A Visit Information Start: 12/04/22 16:50 Freq: Status: Active Protocol: Document 04/03/23 08:46 [facility] (Rec: 04/03/23 09:31 [facility] [id number]) Out-Patient Physical Therapy Visit Information Visit Information Visit Type Treatment Note Visit Start Time 08:47 Visit Stop Time 09:47 Total Visit Minutes 60 Visit Number 16 PT-OP-B Current Condition Start: 12/04/22 16:50 Freq: Status: Active Protocol: Document 02/12/23 10:24 [facility] (Rec: 02/12/23 11:12 [facility] [id number]) Current Condition History of Current Condition Onset Date 2 years Current Complaints rib pain, IT band pain History of Current Condition thoracic pain between shoulder blades at bra line laterally, posterior ribs, some help with OMT states Dr. Torres put rib back in place. Has tried to modify activities but persists. Feels best when leans back and pushes body into chair. 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 Doing shoulder blade squeeze, forward bent on ball, LTR. Also c/o excrutiating pain right IT band; has been using tennis ball for self massage. Increase in pain with bending forward, an just be sitting; stabbing pain, also N/T same area. Has gotten a recumbant exercise bike but hasn't used yet per Dr. Torres telling her she could make IT band pain worse if used bike incorrectly . Will be leaving on December 28 to due to of brother. Prior Treatments and Tests OMT with Dr. Torres Prior PT with this PT Treatment Goals Patient/Caregiver Goals dec pain, improve posture, strength, dec muscle tension PT-OP-C Subjective Start: 12/04/22 16:50 Freq: Status: Active Protocol: Document 03/26/23 08:47 [facility] (Rec: 03/26/23 16:06 [facility] [id number]) OP-PT Subjective Patient Comments Patient Comments Reports pain has increased with multiple medical issues including eye injection with adverse reaction, persistent post-Covid fatigue. Pain increased in mid back and IT band since last seen in PT. PT-OP-J Posture/Palpation/Skin Start: 12/04/22 16:50 Freq: Status: Active Protocol: Document 12/05/22 09:03 [facility] (Rec: 12/05/22 10:26 [facility] [id number]) Posture Evaluation Position Sitting Head/C-Spine Posture Forward Head T-Spine Posture Increased Kyphosis L-Spine Posture Flattened Shoulder Posture (L) Rounded,(R) Rounded Scapula Posture (L) Protracted,(R) Protracted Arm Posture (L) Internally Rotated,(R) Internally Rotated Palpation Assessment Location mid thoracic Palpation Location luisa T7-T10 Palpation Findings Soft Tissue Tightness, Tenderness right IT band Palpation Findings Soft Tissue Tightness,Muscle Guarding,Tenderness PT-OP-K Range of Motion Start: 12/04/22 16:50 Freq: Status: Active Protocol: Document 12/05/22 09:03 [facility] (Rec: 12/05/22 10:26 [facility] [id number]) Cervical Spine Range of Motion Cervical Spine Active ROM Limitations Soft Tissue Tightness,Pain Comments mod dec all motions Lumbar Spine Range of Motion Lumbar Spine Active ROM Limitations Soft Tissue Tightness,Bony Restriction,Pain Comments mod dec luisa Shoulder Goniometric Range of Motion Shoulder luisa Shoulder ROM WFL Yes Shoulder ROM Limitations Shoulder ROM Limitations Soft Tissue Tightness Comments mod decrease luisa Hip Goniometric Range of Motion Hip Right Hip ROM WFL No Comments mod dec IT band flex with TTP Left Hip ROM WFL Yes Hip ROM Limitations Hip ROM Limitations Soft Tissue Tightness,Muscle Weakness,Pain PT-OP-Q Treatments Start: 12/04/22 16:50 Freq: Status: Active Protocol: Document 04/03/23 08:46 [facility] (Rec: 04/03/23 09:31 [facility] [id number]) Cardio Equipment Recumbent Stepper (Sci-Fit) Duration (Minutes) 18 Resistance 2.0 Seat Position 11 Other 1.68 mi Therapeutic Exercises Sitting Exercises cat/cow Comments next session chin tuck Reps/Minutes 5x5 scapular retraction Sitting Exercise Name passive>AAROM>AROM Reps/Minutes 2 min Comments c/o pain with end-range passive deep breathing Reps/Minutes 5x2 Comments 1:2 inhale:exhale Standing Exercises shoulder ext Equipment Used L1 TB Reps/Minutes 10x Comments verbal and tactile cues row Equipment Used L1 TB Reps/Minutes 10x Comments verbal and tactile cues Manual Therapy Treatment Taping thoracic spine Body Location braline thoracic spine space correction x 2 I strips Treatment Focus pain relief Type of Tape kinesiotape Skin Inspection intact Comments 2 I strips right IT band Treatment Focus inhibition Type of Tape kinesio Skin Inspection intact Comments 2 I strips PT-OP-R Modalities Start: 12/04/22 16:50 Freq: Status: Active Protocol: Document 03/26/23 08:47 [facility] (Rec: 03/26/23 16:06 [facility] [id number]) Hot Pack/Cold Pack Treatment Hot Pack Location thoracic spine, IT band R Patient Position Sitting Treatment Duration (minutes) 15 Patient Tolerance Good Ultrasound Therapy Treatment mid thoracic paraspinals Treatment Duration (minutes) 8 Patient Position Sitting Frequency Setting (mHz) 1 Duty Cycle 100% Intensity Setting (w/cm2) 1.4 PT-OP-T Assessment and Plan Start: 12/04/22 16:50 Freq: Status: Active Protocol: Document 04/03/23 08:46 [facility] (Rec: 04/03/23 09:31 [facility] [id number]) Physical Therapy Assessment Goals Three Impairment postural dysfunction Impairment moderate to severe inc in kyphosis and protracted scapulas and IR shoulders, moderate fwd head and dowager' s hump. Short Term Goal (STG) patient to be instructed in neutral posture and postural correction exercises, positioning in sitting and in bed for improved postural health 01/29/23: goal met STG Duration goal met Human Development Professor Goal (LTG) Patient to be independent and compliant with HEP including postural correction and demonstrate improved postural awareness at rest and with function LTG Duration 05/03/23 Two Impairment activity tolerance Impairment Constant pain limiting sleep and all physical activity moderately by 75% per patient report Short Term Goal (STG) Patient able to resume 50% usual activities in the home and community due to dec in pain and report ability to sleep for at least 4 hour stretch at a time 01/29/23: goal progress. Limited by long-Covid symptoms of fatigue and SOB STG Duration 04/02/23 Human Development Professor Goal (LTG) Patient able to resume 75% usual activities in the home and community due to decrease in pain and report ability to sleep for at least 5-6 hour stretch at a time as measure of improved function LTG Duration 05/03/23 One Impairment pain as high as 8/10 mid thoracic and IT band right Short Term Goal (STG) Patient to report pain no greater than 5/10 with all usual activities 01/29/23: goal progress, less intense majority of time but with occasional stabs of pain especially ITB STG Duration 04/02/23 Fpc Goal (LTG) Patient to report pain to no greater than 3/10 with all usual activities LTG Duration 05/03/23 Progress Towards Goals Progress Towards Goals Slow Progress due to Activity Tolerance,Slow Progress due to Medical Issues Assessment Summary Assessment Patient post-covid syndrome as well as anemia, cardiac issues, eye pathology have all been impacting her activity tolerance and pain Physical Therapy Plan Frequency and Duration Frequency of Treatment 2x/Week Duration of treatment (weeks) 12 Plan of Care Start Date 01/31/23 Plan of Care End Date 05/03/23 Therapeutic Interventions Therapeutic Interventions Home Exercise Program,Manual Therapy,Orthotic/Prosthetic Management,Patient/Caregiver Education,Self-Care/Home Management,Soft Tissue Mobilization,Taping, Therapeutic Activities, Therapeutic Exercises Modalities Cold Pack/Ice Massage,Electric Stimulation,Hot Packs, Infrared Therapy,Ultrasound Next Visit Focus/Plan Next Note Type Treatment Note Next Visit Plan Continue PT for pain management, postural correction, strengthening, soft tissue mobilization. Modalities and manual therapy PRN.
--- NOTE | 2023-04-05 16:42 | PT.OTN ---
Current Diagnoses Other chronic pain (04/05/23) Pain in thoracic spine (04/05/23) Abnormal posture (04/05/23) Weakness (04/05/23) Physical Therapy Treatment Note PT-OP-A Visit Information Start: 12/04/22 16:50 Freq: Status: Active Protocol: Document 04/05/23 08:46 [facility]AK (Rec: 04/05/23 09:32 [facility] [id number]) Out-Patient Physical Therapy Visit Information Visit Information Visit Type Treatment Note Visit Start Time 08:45 Visit Stop Time 09:45 Total Visit Minutes 60 Visit Number 17 PT-OP-B Current Condition Start: 12/04/22 16:50 Freq: Status: Active Protocol: Document 02/12/23 10:24 SAK (Rec: 02/12/23 11:12 [facility] [id number]) Current Condition History of Current Condition Onset Date 2 years Current Complaints rib pain, IT band pain History of Current Condition thoracic pain between shoulder blades at bra line laterally, posterior ribs, some help with OMT states Dr. Torres put rib back in place. Has tried to modify activities but persists. Feels best when leans back and pushes body into chair. 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 Doing shoulder blade squeeze, forward bent on ball, LTR. Also c/o excrutiating pain right IT band; has been using tennis ball for self massage. Increase in pain with bending forward, an just be sitting; stabbing pain, also N/T same area. Has gotten a recumbant exercise bike but hasn't used yet per Dr. Torres telling her she could make IT band pain worse if used bike incorrectly . Will be leaving on December 28 to due to of brother. Prior Treatments and Tests OMT with Dr. Torres Prior PT with this PT Treatment Goals Patient/Caregiver Goals dec pain, improve posture, strength, dec muscle tension PT-OP-C Subjective Start: 12/04/22 16:50 Freq: Status: Active Protocol: Document 04/05/23 08:46 SAK (Rec: 04/05/23 09:32 [facility] [id number]) OP-PT Subjective Patient Comments Patient Comments Pain improved after PT. Eyes improving. Had OMT treatment. central LBP less frequent but still 10/10 when it comes. IT band pain improved. PT-OP-J Posture/Palpation/Skin Start: 12/04/22 16:50 Freq: Status: Active Protocol: Document 12/05/22 09:03 [facility] (Rec: 12/05/22 10:26 [facility] [id number]) Posture Evaluation Position Sitting Head/C-Spine Posture Forward Head T-Spine Posture Increased Kyphosis L-Spine Posture Flattened Shoulder Posture (L) Rounded,(R) Rounded Scapula Posture (L) Protracted,(R) Protracted Arm Posture (L) Internally Rotated,(R) Internally Rotated Palpation Assessment Location mid thoracic Palpation Location luisa T7-T10 Palpation Findings Soft Tissue Tightness, Tenderness right IT band Palpation Findings Soft Tissue Tightness,Muscle Guarding,Tenderness PT-OP-K Range of Motion Start: 12/04/22 16:50 Freq: Status: Active Protocol: Document 12/05/22 09:03 [facility] (Rec: 12/05/22 10:26 [facility] [id number]) Cervical Spine Range of Motion Cervical Spine Active ROM Limitations Soft Tissue Tightness,Pain Comments mod dec all motions Lumbar Spine Range of Motion Lumbar Spine Active ROM Limitations Soft Tissue Tightness,Bony Restriction,Pain Comments mod dec luisa Shoulder Goniometric Range of Motion Shoulder luisa Shoulder ROM WFL Yes Shoulder ROM Limitations Shoulder ROM Limitations Soft Tissue Tightness Comments mod decrease luisa Hip Goniometric Range of Motion Hip Right Hip ROM WFL No Comments mod dec IT band flex with TTP Left Hip ROM WFL Yes Hip ROM Limitations Hip ROM Limitations Soft Tissue Tightness,Muscle Weakness,Pain PT-OP-Q Treatments Start: 12/04/22 16:50 Freq: Status: Active Protocol: Document 04/05/23 08:46 [facility] (Rec: 04/05/23 09:32 [facility] [id number]) Cardio Equipment Recumbent Stepper (Sci-Fit) Duration (Minutes) 20 Resistance 2.0 Seat Position 11 Other 2.0 mi Gym Equipment Shuttle Recovery Unilateral Squats Resistance 37 Shuttle Recovery Platform Stable Bilateral Squats Resistance 75 Shuttle Recovery Platform Stable Reps/Time 10x2 Therapeutic Exercises Supine Exercises pec stretch Reps/Minutes 2x30 HS stretch Reps/Minutes 2x30 IT band stretch Reps/Minutes 2x30 Sitting Exercises heel dig Reps/Minutes 6x5 hamstring curl Equipment Used L2 TB Reps/Minutes 10x wall push up Reps/Minutes 7x deep breathing Reps/Minutes 5x2 Comments 1:2 inhale:exhale Standing Exercises hamstring curl delano Reps/Minutes 10x5 wall push up Reps/Minutes 10x PT-OP-R Modalities Start: 12/04/22 16:50 Freq: Status: Active Protocol: Document 04/05/23 08:46 [facility] (Rec: 04/05/23 09:32 [facility] [id number]) Ultrasound Therapy Treatment mid thoracic paraspinals Treatment Duration (minutes) 8 Patient Position Sitting Frequency Setting (mHz) 1 Duty Cycle 100% Intensity Setting (w/cm2) 1.4 PT-OP-T Assessment and Plan Start: 12/04/22 16:50 Freq: Status: Active Protocol: Document 04/05/23 08:46 [facility] (Rec: 04/05/23 09:32 [facility] [id number]) Physical Therapy Assessment Goals Three Impairment postural dysfunction Impairment moderate to severe inc in kyphosis and protracted scapulas and IR shoulders, moderate fwd head and dowager' s hump. Short Term Goal (STG) patient to be instructed in neutral posture and postural correction exercises, positioning in sitting and in bed for improved postural health 01/29/23: goal met STG Duration goal met Tile Edger Goal (LTG) Patient to be independent and compliant with HEP including postural correction and demonstrate improved postural awareness at rest and with function LTG Duration 05/03/23 Two Impairment activity tolerance Impairment Constant pain limiting sleep and all physical activity moderately by 75% per patient report Short Term Goal (STG) Patient able to resume 50% usual activities in the home and community due to dec in pain and report ability to sleep for at least 4 hour stretch at a time 01/29/23: goal progress. Limited by long-Covid symptoms of fatigue and SOB STG Duration 04/02/23 Tile Edger Goal (LTG) Patient able to resume 75% usual activities in the home and community due to decrease in pain and report ability to sleep for at least 5-6 hour stretch at a time as measure of improved function LTG Duration 05/03/23 One Impairment pain as high as 8/10 mid thoracic and IT band right Short Term Goal (STG) Patient to report pain no greater than 5/10 with all usual activities 01/29/23: goal progress, less intense majority of time but with occasional stabs of pain especially ITB STG Duration 04/02/23 Tile Edger Goal (LTG) Patient to report pain to no greater than 3/10 with all usual activities LTG Duration 05/03/23 Progress Towards Goals Progress Towards Goals Slow Progress due to Activity Tolerance,Slow Progress due to Medical Issues Assessment Summary Assessment Increased exercise tolerance today, needs frequent cues for postural correction, core stab Physical Therapy Plan Frequency and Duration Frequency of Treatment 2x/Week Duration of treatment (weeks) 12 Plan of Care Start Date 01/31/23 Plan of Care End Date 05/03/23 Therapeutic Interventions Therapeutic Interventions Home Exercise Program,Manual Therapy,Orthotic/Prosthetic Management,Patient/Caregiver Education,Self-Care/Home Management,Soft Tissue Mobilization,Taping, Therapeutic Activities, Therapeutic Exercises Modalities Cold Pack/Ice Massage,Electric Stimulation,Hot Packs, Infrared Therapy,Ultrasound Next Visit Focus/Plan Next Note Type Treatment Note Next Visit Plan Continue PT for pain management, postural correction, strengthening, soft tissue mobilization. Modalities and manual therapy PRN.
--- NOTE | 2023-04-24 09:06 | PT.OTN ---
Current Diagnoses Other chronic pain (04/24/23) Pain in thoracic spine (04/24/23) Abnormal posture (04/24/23) Weakness (04/24/23) Physical Therapy Treatment Note PT-OP-A Visit Information Start: 12/04/22 16:50 Freq: Status: Active Protocol: Document 04/24/23 08:00 [facility]AK (Rec: 04/24/23 08:46 [facility] [id number]) Out-Patient Physical Therapy Visit Information Visit Information Visit Type Treatment Note Visit Start Time 08:00 Visit Stop Time 09:00 Total Visit Minutes 60 Visit Number 18 PT-OP-B Current Condition Start: 12/04/22 16:50 Freq: Status: Active Protocol: Document 02/12/23 10:24 [facility]AK (Rec: 02/12/23 11:12 [facility] [id number]) Current Condition History of Current Condition Onset Date 2 years Current Complaints rib pain, IT band pain History of Current Condition thoracic pain between shoulder blades at bra line laterally, posterior ribs, some help with OMT states Dr. Torres put rib back in place. Has tried to modify activities but persists. Feels best when leans back and pushes body into chair. 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 Doing shoulder blade squeeze, forward bent on ball, LTR. Also c/o excrutiating pain right IT band; has been using tennis ball for self massage. Increase in pain with bending forward, an just be sitting; stabbing pain, also N/T same area. Has gotten a recumbant exercise bike but hasn't used yet per Dr. Torres telling her she could make IT band pain worse if used bike incorrectly . Will be leaving on December 28 to due to of brother. Prior Treatments and Tests OMT with Dr. Torres Prior PT with this PT Treatment Goals Patient/Caregiver Goals dec pain, improve posture, strength, dec muscle tension PT-OP-C Subjective Start: 12/04/22 16:50 Freq: Status: Active Protocol: Document 04/24/23 08:00 SAK (Rec: 04/24/23 08:46 [facility] [id number]) OP-PT Subjective Patient Comments Patient Comments Weak, weak, weak, but determined. Sees Dr. Constantino on . Reports IT band better. PT-OP-J Posture/Palpation/Skin Start: 12/04/22 16:50 Freq: Status: Active Protocol: Document 12/05/22 09:03 [facility] (Rec: 12/05/22 10:26 [facility] [id number]) Posture Evaluation Position Sitting Head/C-Spine Posture Forward Head T-Spine Posture Increased Kyphosis L-Spine Posture Flattened Shoulder Posture (L) Rounded,(R) Rounded Scapula Posture (L) Protracted,(R) Protracted Arm Posture (L) Internally Rotated,(R) Internally Rotated Palpation Assessment Location mid thoracic Palpation Location luisa T7-T10 Palpation Findings Soft Tissue Tightness, Tenderness right IT band Palpation Findings Soft Tissue Tightness,Muscle Guarding,Tenderness PT-OP-K Range of Motion Start: 12/04/22 16:50 Freq: Status: Active Protocol: Document 12/05/22 09:03 [facility] (Rec: 12/05/22 10:26 [facility] [id number]) Cervical Spine Range of Motion Cervical Spine Active ROM Limitations Soft Tissue Tightness,Pain Comments mod dec all motions Lumbar Spine Range of Motion Lumbar Spine Active ROM Limitations Soft Tissue Tightness,Bony Restriction,Pain Comments mod dec luisa Shoulder Goniometric Range of Motion Shoulder luisa Shoulder ROM WFL Yes Shoulder ROM Limitations Shoulder ROM Limitations Soft Tissue Tightness Comments mod decrease luisa Hip Goniometric Range of Motion Hip Right Hip ROM WFL No Comments mod dec IT band flex with TTP Left Hip ROM WFL Yes Hip ROM Limitations Hip ROM Limitations Soft Tissue Tightness,Muscle Weakness,Pain PT-OP-Q Treatments Start: 12/04/22 16:50 Freq: Status: Active Protocol: Document 04/24/23 08:00 [facility] (Rec: 04/24/23 08:46 [facility] [id number]) Cardio Equipment Recumbent Stepper (Sci-Fit) Duration (Minutes) 20 Resistance 2.0 Seat Position 11 Other 2.0 mi Gym Equipment Shuttle Recovery Unilateral Squats Resistance 37 Shuttle Recovery Platform Stable Bilateral Squats Resistance 75 Shuttle Recovery Platform Stable Reps/Time 10x2 Therapeutic Exercises Supine Exercises girl on the beach isometric Reps/Minutes 5x5 Comments on shuttle leg press, left shoulder pain Sitting Exercises scapular retraction Sitting Exercise Name passive>AAROM>AROM Reps/Minutes 3 min Comments 9:00-3:00 deep breathing Reps/Minutes 5x2 Comments 1:2 inhale:exhale Manual Therapy Treatment Taping thoracic spine Body Location braline thoracic spine space correction x 2 I strips Treatment Focus pain relief Type of Tape kinesiotape Skin Inspection intact Comments 2 I strips right IT band Treatment Focus inhibition Type of Tape kinesio Skin Inspection intact Comments 2 I strips PT-OP-R Modalities Start: 12/04/22 16:50 Freq: Status: Active Protocol: Document 04/24/23 08:00 [facility] (Rec: 04/24/23 09:06 [facility] [id number]) Hot Pack/Cold Pack Treatment Hot Pack Location thoracic spine, IT band R Patient Position Sitting Treatment Duration (minutes) 15 Patient Tolerance Good PT-OP-T Assessment and Plan Start: 12/04/22 16:50 Freq: Status: Active Protocol: Document 04/24/23 08:00 [facility] (Rec: 04/24/23 08:46 [facility] [id number]) Physical Therapy Assessment Goals Three Impairment postural dysfunction Impairment moderate to severe inc in kyphosis and protracted scapulas and IR shoulders, moderate fwd head and dowager' s hump. Short Term Goal (STG) patient to be instructed in neutral posture and postural correction exercises, positioning in sitting and in bed for improved postural health 01/29/23: goal met STG Duration goal met [facility] Goal (LTG) Patient to be independent and compliant with HEP including postural correction and demonstrate improved postural awareness at rest and with function LTG Duration 05/03/23 Two Impairment activity tolerance Impairment Constant pain limiting sleep and all physical activity moderately by 75% per patient report Short Term Goal (STG) Patient able to resume 50% usual activities in the home and community due to dec in pain and report ability to sleep for at least 4 hour stretch at a time 01/29/23: goal progress. Limited by long-Covid symptoms of fatigue and SOB STG Duration 04/02/23 Roller Embosser Goal (LTG) Patient able to resume 75% usual activities in the home and community due to decrease in pain and report ability to sleep for at least 5-6 hour stretch at a time as measure of improved function LTG Duration 05/03/23 One Impairment pain as high as 8/10 mid thoracic and IT band right Short Term Goal (STG) Patient to report pain no greater than 5/10 with all usual activities 01/29/23: goal progress, less intense majority of time but with occasional stabs of pain especially ITB STG Duration 04/02/23 Roller Embosser Goal (LTG) Patient to report pain to no greater than 3/10 with all usual activities LTG Duration 05/03/23 Assessment Summary Assessment MOved back to work on [employer] with improved patient understanding . Dec ITB pain. REviewed spinal pressure in different positions stressing importance of neutral alignment. Patient verbalizes understanding but has difficulty functionally understanding. Physical Therapy Plan Frequency and Duration Frequency of Treatment 2x/Week Duration of treatment (weeks) 12 Plan of Care Start Date 01/31/23 Plan of Care End Date 05/03/23 Therapeutic Interventions Therapeutic Interventions Home Exercise Program,Manual Therapy,Orthotic/Prosthetic Management,Patient/Caregiver Education,Self-Care/Home Management,Soft Tissue Mobilization,Taping, Therapeutic Activities, Therapeutic Exercises Modalities Cold Pack/Ice Massage,Electric Stimulation,Hot Packs, Infrared Therapy,Ultrasound Next Visit Focus/Plan Next Note Type Treatment Note Next Visit Plan Continue PT for pain management, postural correction, strengthening, soft tissue mobilization. Modalities and manual therapy PRN.
--- NOTE | 2023-05-02 12:01 | PT.OTN ---
Current Diagnoses Other chronic pain (05/02/23) Pain in thoracic spine (05/02/23) Abnormal posture (05/02/23) Weakness (05/02/23) Physical Therapy Treatment Note PT-OP-A Visit Information Start: 12/04/22 16:50 Freq: Status: Active Protocol: Document 05/02/23 07:55 [facility]AK (Rec: 05/02/23 08:47 [facility] [id number]) Out-Patient Physical Therapy Visit Information Visit Information Visit Type Treatment Note Visit Start Time 08:00 Visit Stop Time 09:00 Total Visit Minutes 60 Visit Number 19 PT-OP-B Current Condition Start: 12/04/22 16:50 Freq: Status: Active Protocol: Document 02/12/23 10:24 SAK (Rec: 02/12/23 11:12 [facility]AK [id number]) Current Condition History of Current Condition Onset Date 2 years Current Complaints rib pain, IT band pain History of Current Condition thoracic pain between shoulder blades at bra line laterally, posterior ribs, some help with OMT states Dr. Torres put rib back in place. Has tried to modify activities but persists. Feels best when leans back and pushes body into chair. 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 Doing shoulder blade squeeze, forward bent on ball, LTR. Also c/o excrutiating pain right IT band; has been using tennis ball for self massage. Increase in pain with bending forward, an just be sitting; stabbing pain, also N/T same area. Has gotten a recumbant exercise bike but hasn't used yet per Dr. Torres telling her she could make IT band pain worse if used bike incorrectly . Will be leaving on December 28 to due to of brother. Prior Treatments and Tests OMT with Dr. Torres Prior PT with this PT Treatment Goals Patient/Caregiver Goals dec pain, improve posture, strength, dec muscle tension PT-OP-C Subjective Start: 12/04/22 16:50 Freq: Status: Active Protocol: Document 05/02/23 07:55 SAK (Rec: 05/02/23 08:47 [facility]AK [id number]) OP-PT Subjective Patient Comments Patient Comments Patient reports incredible weakness continues. PT-OP-J Posture/Palpation/Skin Start: 12/04/22 16:50 Freq: Status: Active Protocol: Document 12/05/22 09:03 [facility] (Rec: 12/05/22 10:26 [facility] [id number]) Posture Evaluation Position Sitting Head/C-Spine Posture Forward Head T-Spine Posture Increased Kyphosis L-Spine Posture Flattened Shoulder Posture (L) Rounded,(R) Rounded Scapula Posture (L) Protracted,(R) Protracted Arm Posture (L) Internally Rotated,(R) Internally Rotated Palpation Assessment Location mid thoracic Palpation Location luisa T7-T10 Palpation Findings Soft Tissue Tightness, Tenderness right IT band Palpation Findings Soft Tissue Tightness,Muscle Guarding,Tenderness PT-OP-K Range of Motion Start: 12/04/22 16:50 Freq: Status: Active Protocol: Document 12/05/22 09:03 [facility] (Rec: 12/05/22 10:26 [facility] [id number]) Cervical Spine Range of Motion Cervical Spine Active ROM Limitations Soft Tissue Tightness,Pain Comments mod dec all motions Lumbar Spine Range of Motion Lumbar Spine Active ROM Limitations Soft Tissue Tightness,Bony Restriction,Pain Comments mod dec luisa Shoulder Goniometric Range of Motion Shoulder luisa Shoulder ROM WFL Yes Shoulder ROM Limitations Shoulder ROM Limitations Soft Tissue Tightness Comments mod decrease luisa Hip Goniometric Range of Motion Hip Right Hip ROM WFL No Comments mod dec IT band flex with TTP Left Hip ROM WFL Yes Hip ROM Limitations Hip ROM Limitations Soft Tissue Tightness,Muscle Weakness,Pain PT-OP-Q Treatments Start: 12/04/22 16:50 Freq: Status: Active Protocol: Document 05/02/23 07:55 [facility] (Rec: 05/02/23 08:47 [facility] [id number]) Cardio Equipment Recumbent Stepper (Sci-Fit) Duration (Minutes) 19 Resistance 2.0 Seat Position 11 Other 2.0 mi Gym Equipment Shuttle Recovery Unilateral Squats Resistance 37 Shuttle Recovery Platform Stable Bilateral Squats Resistance 75 Shuttle Recovery Platform Stable Reps/Time 10x2 Manual Therapy Treatment Taping thoracic spine Body Location braline thoracic spine space correction x 2 I strips Treatment Focus pain relief Type of Tape kinesiotape Skin Inspection intact Comments 2 I strips right IT band Treatment Focus inhibition Type of Tape kinesio Skin Inspection intact Comments 2 I strips PT-OP-R Modalities Start: 12/04/22 16:50 Freq: Status: Active Protocol: Document 04/24/23 08:00 SAK (Rec: 04/24/23 09:06 SAK [id number]) Hot Pack/Cold Pack Treatment Hot Pack Location thoracic spine, IT band R Patient Position Sitting Treatment Duration (minutes) 15 Patient Tolerance Good PT-OP-T Assessment and Plan Start: 12/04/22 16:50 Freq: Status: Active Protocol: Document 05/02/23 07:55 SAK (Rec: 05/02/23 08:47 [facility] [id number]) Physical Therapy Assessment Goals Three Impairment postural dysfunction Impairment moderate to severe inc in kyphosis and protracted scapulas and IR shoulders, moderate fwd head and dowager' s hump. Short Term Goal (STG) patient to be instructed in neutral posture and postural correction exercises, positioning in sitting and in bed for improved postural health 01/29/23: goal met STG Duration goal met [facility] Goal (LTG) Patient to be independent and compliant with HEP including postural correction and demonstrate improved postural awareness at rest and with function LTG Duration 05/03/23 Two Impairment activity tolerance Impairment Constant pain limiting sleep and all physical activity moderately by 75% per patient report Short Term Goal (STG) Patient able to resume 50% usual activities in the home and community due to dec in pain and report ability to sleep for at least 4 hour stretch at a time 01/29/23: goal progress. Limited by long-Covid symptoms of fatigue and SOB STG Duration 04/02/23 [facility] Goal (LTG) Patient able to resume 75% usual activities in the home and community due to decrease in pain and report ability to sleep for at least 5-6 hour stretch at a time as measure of improved function LTG Duration 05/03/23 One Impairment pain as high as 8/10 mid thoracic and IT band right Short Term Goal (STG) Patient to report pain no greater than 5/10 with all usual activities 01/29/23: goal progress, less intense majority of time but with occasional stabs of pain especially ITB STG Duration 04/02/23 Environmental Conservation Professor Goal (LTG) Patient to report pain to no greater than 3/10 with all usual activities LTG Duration 05/03/23 Assessment Summary Assessment Patient having further testing due to persistent fatigue. Despite high level of fatigue patient trying to be compliant with HEP, though PT notes increase in fwd head, rnd shoulders with inc thor kyphosis due to fatigue, patient unable to correct for long. Physical Therapy Plan Frequency and Duration Frequency of Treatment 2x/Week Duration of treatment (weeks) 12 Plan of Care Start Date 01/31/23 Plan of Care End Date 05/03/23 Therapeutic Interventions Therapeutic Interventions Home Exercise Program,Manual Therapy,Orthotic/Prosthetic Management,Patient/Caregiver Education,Self-Care/Home Management,Soft Tissue Mobilization,Taping, Therapeutic Activities, Therapeutic Exercises Modalities Cold Pack/Ice Massage,Electric Stimulation,Hot Packs, Infrared Therapy,Ultrasound Next Visit Focus/Plan Next Note Type Treatment Note Next Visit Plan Continue PT for pain management, postural correction, strengthening, soft tissue mobilization. Modalities and manual therapy PRN.
--- NOTE | 2023-05-14 11:35 | PT.OTN ---
Current Diagnoses Other chronic pain (05/14/23) Pain in thoracic spine (05/14/23) Abnormal posture (05/14/23) Weakness (05/14/23) Physical Therapy Treatment Note PT-OP-A Visit Information Start: 12/04/22 16:50 Freq: Status: Active Protocol: Document 05/14/23 08:47 SAK (Rec: 05/14/23 09:38 [facility] [id number]) Out-Patient Physical Therapy Visit Information Visit Information Visit Type Treatment Note Visit Start Time 08:49 Total Visit Minutes 60 Visit Number 20 PT-OP-B Current Condition Start: 12/04/22 16:50 Freq: Status: Active Protocol: Document 02/12/23 10:24 SAK (Rec: 02/12/23 11:12 SAK [id number]) Current Condition History of Current Condition Onset Date 2 years Current Complaints rib pain, IT band pain History of Current Condition thoracic pain between shoulder blades at bra line laterally, posterior ribs, some help with OMT states Dr. Torres put rib back in place. Has tried to modify activities but persists. Feels best when leans back and pushes body into chair. 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 Doing shoulder blade squeeze, forward bent on ball, LTR. Also c/o excrutiating pain right IT band; has been using tennis ball for self massage. Increase in pain with bending forward, an just be sitting; stabbing pain, also N/T same area. Has gotten a recumbant exercise bike but hasn't used yet per Dr. Torres telling her she could make IT band pain worse if used bike incorrectly . Will be leaving on December 28 to due to of brother. Prior Treatments and Tests OMT with Dr. Torres Prior PT with this PT Treatment Goals Patient/Caregiver Goals dec pain, improve posture, strength, dec muscle tension PT-OP-C Subjective Start: 12/04/22 16:50 Freq: Status: Active Protocol: Document 05/14/23 08:47 SAK (Rec: 05/14/23 11:35 [facility] [id number]) OP-PT Subjective Patient Comments Patient Comments Reports she only slept about 2 hours last night. Continues to be so fatigued. Saw Dr. Torres for OMT, helpful short term. Nicotine patch recommended but patient has decided not to take due to precautions and side effects including severe heart disease . States she has never seen an senior quantity surveyor PT-OP-J Posture/Palpation/Skin Start: 12/04/22 16:50 Freq: Status: Active Protocol: Document 12/05/22 09:03 [facility] (Rec: 12/05/22 10:26 [facility] [id number]) Posture Evaluation Position Sitting Head/C-Spine Posture Forward Head T-Spine Posture Increased Kyphosis L-Spine Posture Flattened Shoulder Posture (L) Rounded,(R) Rounded Scapula Posture (L) Protracted,(R) Protracted Arm Posture (L) Internally Rotated,(R) Internally Rotated Palpation Assessment Location mid thoracic Palpation Location luisa T7-T10 Palpation Findings Soft Tissue Tightness, Tenderness right IT band Palpation Findings Soft Tissue Tightness,Muscle Guarding,Tenderness PT-OP-K Range of Motion Start: 12/04/22 16:50 Freq: Status: Active Protocol: Document 12/05/22 09:03 [facility] (Rec: 12/05/22 10:26 [facility] [id number]) Cervical Spine Range of Motion Cervical Spine Active ROM Limitations Soft Tissue Tightness,Pain Comments mod dec all motions Lumbar Spine Range of Motion Lumbar Spine Active ROM Limitations Soft Tissue Tightness,Bony Restriction,Pain Comments mod dec luisa Shoulder Goniometric Range of Motion Shoulder luisa Shoulder ROM WFL Yes Shoulder ROM Limitations Shoulder ROM Limitations Soft Tissue Tightness Comments mod decrease luisa Hip Goniometric Range of Motion Hip Right Hip ROM WFL No Comments mod dec IT band flex with TTP Left Hip ROM WFL Yes Hip ROM Limitations Hip ROM Limitations Soft Tissue Tightness,Muscle Weakness,Pain PT-OP-Q Treatments Start: 12/04/22 16:50 Freq: Status: Active Protocol: Document 05/14/23 08:47 [facility] (Rec: 05/14/23 09:38 [facility] [id number]) Cardio Equipment Recumbent Stepper (Sci-Fit) Duration (Minutes) 20 Resistance 2.0 Seat Position 11 Other 2.0 mi Gym Equipment Shuttle Recovery Unilateral Squats Resistance 37 Shuttle Recovery Platform Stable Reps/Time 10x 2 Bilateral Squats Details cues for quad and gluteal activation Resistance 75 Shuttle Recovery Platform Stable Reps/Time 10x2 Shuttle Balance chains red, cords loose Details balance and weight shift fwd/ bck with feet sta, side toggered, side to side Reps/Duration 4 min Manual Therapy Treatment Taping thoracic spine Body Location braline thoracic spine space correction x 2 I strips Treatment Focus pain relief Type of Tape kinesiotape Skin Inspection intact Comments 2 I strips right IT band Treatment Focus inhibition Type of Tape kinesio Skin Inspection intact Comments 2 I strips PT-OP-R Modalities Start: 12/04/22 16:50 Freq: Status: Active Protocol: Document 05/14/23 08:47 [facility] (Rec: 05/14/23 09:38 [facility] [id number]) Hot Pack/Cold Pack Treatment Hot Pack Location thoracic spine, IT band R Patient Position Sitting Treatment Duration (minutes) 15 Patient Tolerance Good PT-OP-T Assessment and Plan Start: 12/04/22 16:50 Freq: Status: Active Protocol: Document 05/14/23 08:47 [facility] (Rec: 05/14/23 09:38 [facility] [id number]) Physical Therapy Assessment Goals Three Impairment postural dysfunction Impairment moderate to severe inc in kyphosis and protracted scapulas and IR shoulders, moderate fwd head and dowager' s hump. Short Term Goal (STG) patient to be instructed in neutral posture and postural correction exercises, positioning in sitting and in bed for improved postural health 01/29/23: goal met STG Duration goal met [facility] Goal (LTG) Patient to be independent and compliant with HEP including postural correction and demonstrate improved postural awareness at rest and with function LTG Duration 05/03/23 Two Impairment activity tolerance Impairment Constant pain limiting sleep and all physical activity moderately by 75% per patient report Short Term Goal (STG) Patient able to resume 50% usual activities in the home and community due to dec in pain and report ability to sleep for at least 4 hour stretch at a time 01/29/23: goal progress. Limited by long-Covid symptoms of fatigue and SOB STG Duration 04/02/23 [facility] Chaser Goal (LTG) Patient able to resume 75% usual activities in the home and community due to decrease in pain and report ability to sleep for at least 5-6 hour stretch at a time as measure of improved function LTG Duration 05/03/23 One Impairment pain as high as 8/10 mid thoracic and IT band right Short Term Goal (STG) Patient to report pain no greater than 5/10 with all usual activities 01/29/23: goal progress, less intense majority of time but with occasional stabs of pain especially ITB STG Duration 04/02/23 Detention Goal (LTG) Patient to report pain to no greater than 3/10 with all usual activities LTG Duration 05/03/23 Assessment Summary Assessment Best tolerance is for seated ther ex. Patient having difficult day due to lack of sleep and persistent weakness. Recommended return to physician to discuss not wanting to use Nicotine patches and discuss any alternatives, postentially senior quantity surveyor. Physical Therapy Plan Frequency and Duration Frequency of Treatment 2x/Week Duration of treatment (weeks) 12 Plan of Care Start Date 01/31/23 Plan of Care End Date 05/03/23 Therapeutic Interventions Therapeutic Interventions Home Exercise Program,Manual Therapy,Orthotic/Prosthetic Management,Patient/Caregiver Education,Self-Care/Home Management,Soft Tissue Mobilization,Taping, Therapeutic Activities, Therapeutic Exercises Modalities Cold Pack/Ice Massage,Electric Stimulation,Hot Packs, Infrared Therapy,Ultrasound Next Visit Focus/Plan Next Note Type Treatment Note Next Visit Plan Continue PT for pain management, postural correction, strengthening, soft tissue mobilization. Modalities and manual therapy PRN.
--- NOTE | 2023-05-14 11:41 | PT.OTRE ---
Current Diagnoses Other chronic pain (05/14/23) Pain in thoracic spine (05/14/23) Abnormal posture (05/14/23) Weakness (05/14/23) Past Medical History (Last Updated 02/13/23 @ 16:12 by La Torres DO) AAA (abdominal aortic aneurysm) Anemia Angioedema Asthma Atrial fibrillation Atypical nevus of abdominal wall Bone lesion CAD (coronary artery disease) (1979) Cardiac arrhythmia Coccidioidomycosis (~1962) Diastolic heart failure Dyslipidemia EBV infection (~1962) Elevated coronary artery calcium score 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 Hiatal hernia (~11/22/20) History of recurrent pneumonia History of stent insertion of renal artery Hypertension Iron deficiency anemia Left renal artery stenosis (~11/22/20) Lipoma Macular degeneration, age related, nonexudative Melanoma Myocardial infarction due to atherothrombotic coronary artery disease Ocular migraine Osteopenia of femoral neck, bilateral (~02/2019) Paroxysmal atrial fibrillation Parumbilical hernia (~11/22/20) Pressure ulcer, buttock, right, unstageable Prinzmetal's angina (1975) Proteus enteritis (~2018) Renal artery atherosclerosis (09/22/11) Severe obstructive sleep apnea-hypopnea syndrome (10/22/15) Shingles (2016) Shoulder pain Sleep apnea Statin intolerance Stenosis of celiac artery (~11/22/20) Stroke Systemic lupus erythematosus Thyroid nodule Surgical History (Last Reviewed 12/07/22 @ 08:07 by Alfonzo Burnham MD) Anesthesia H/O colonoscopy with polypectomy (~04/2020) History of arthroplasty (12/09/12) History of arthroplasty (01/20/13) History of cataract removal with insertion of prosthetic lens (2014) History of cholecystectomy History of tonsillectomy Stented coronary artery (2013) Visit Care Team Role Provider Type La Torres DO Attending Provider Physician Family Provider Primary Care Provider Referring Provider Specialty: Medical Address: [address] [place] [address], [address], [place], [address] Email: [email or web address] Physical Therapy Re-Evaluation PT-OP-A Visit Information Start: 12/04/22 16:50 Freq: Status: Active Protocol: Document 05/14/23 08:47 [facility] (Rec: 05/14/23 09:38 [facility] [id number]) Out-Patient Physical Therapy Visit Information Visit Information Visit Type Treatment Note Visit Start Time 08:49 Total Visit Minutes 60 Visit Number 20 PT-OP-B Current Condition Start: 12/04/22 16:50 Freq: Status: Active Protocol: Document 02/12/23 10:24 [facility] (Rec: 02/12/23 11:12 [facility] [id number]) Current Condition History of Current Condition Onset Date 2 years Current Complaints rib pain, IT band pain History of Current Condition thoracic pain between shoulder blades at bra line laterally, posterior ribs, some help with OMT states Dr. Torres put rib back in place. Has tried to modify activities but persists. Feels best when leans back and pushes body into chair. 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 Doing shoulder blade squeeze, forward bent on ball, LTR. Also c/o excrutiating pain right IT band; has been using tennis ball for self massage. Increase in pain with bending forward, an just be sitting; stabbing pain, also N/T same area. Has gotten a recumbant exercise bike but hasn't used yet per Dr. Torres telling her she could make IT band pain worse if used bike incorrectly . Will be leaving on December 28 to due to of brother. Prior Treatments and Tests OMT with Dr. Torres Prior PT with this PT Treatment Goals Patient/Caregiver Goals dec pain, improve posture, strength, dec muscle tension PT-OP-C Subjective Start: 12/04/22 16:50 Freq: Status: Active Protocol: Document 05/14/23 08:47 [facility] (Rec: 05/14/23 11:35 [facility] [id number]) OP-PT Subjective Patient Comments Patient Comments Reports she only slept about 2 hours last night. Continues to be so fatigued. Saw Dr. Torres for OMT, helpful short term. Nicotine patch recommended but patient has decided not to take due to precautions and side effects including severe heart disease . States she has never seen an lip reading teacher PT-OP-J Posture/Palpation/Skin Start: 12/04/22 16:50 Freq: Status: Active Protocol: Document 12/05/22 09:03 [facility] (Rec: 12/05/22 10:26 [facility] [id number]) Posture Evaluation Position Sitting Head/C-Spine Posture Forward Head T-Spine Posture Increased Kyphosis L-Spine Posture Flattened Shoulder Posture (L) Rounded,(R) Rounded Scapula Posture (L) Protracted,(R) Protracted Arm Posture (L) Internally Rotated,(R) Internally Rotated Palpation Assessment Location mid thoracic Palpation Location luisa T7-T10 Palpation Findings Soft Tissue Tightness, Tenderness right IT band Palpation Findings Soft Tissue Tightness,Muscle Guarding,Tenderness PT-OP-K Range of Motion Start: 12/04/22 16:50 Freq: Status: Active Protocol: Document 12/05/22 09:03 [facility] (Rec: 12/05/22 10:26 [facility] [id number]) Cervical Spine Range of Motion Cervical Spine Active ROM Limitations Soft Tissue Tightness,Pain Comments mod dec all motions Lumbar Spine Range of Motion Lumbar Spine Active ROM Limitations Soft Tissue Tightness,Bony Restriction,Pain Comments mod dec luisa Shoulder Goniometric Range of Motion Shoulder Measured in Degrees luisa Shoulder ROM WFL Yes Shoulder ROM Limitations Shoulder ROM Limitations Soft Tissue Tightness Comments mod decrease luisa Hip Goniometric Range of Motion Hip Measured in Degrees Right Hip ROM WFL No Comments mod dec IT band flex with TTP Left Hip ROM WFL Yes Hip ROM Limitations Hip ROM Limitations Soft Tissue Tightness,Muscle Weakness,Pain PT-OP-Q Treatments Start: 12/04/22 16:50 Freq: Status: Active Protocol: Document 05/14/23 08:47 [facility] (Rec: 05/14/23 09:38 [facility] [id number]) Cardio Equipment Recumbent Stepper (Sci-Fit) Duration (Minutes) 20 Resistance 2.0 Seat Position 11 Other 2.0 mi Gym Equipment Shuttle Recovery Unilateral Squats Resistance 37 Shuttle Recovery Platform Stable Reps/Time 10x 2 Bilateral Squats Details cues for quad and gluteal activation Resistance 75 Shuttle Recovery Platform Stable Reps/Time 10x2 Shuttle Balance chains red, cords loose Details balance and weight shift fwd/ bck with feet sta, side toggered, side to side Reps/Duration 4 min Manual Therapy Treatment Taping thoracic spine Body Location braline thoracic spine space correction x 2 I strips Treatment Focus pain relief Type of Tape kinesiotape Skin Inspection intact Comments 2 I strips right IT band Treatment Focus inhibition Type of Tape kinesio Skin Inspection intact Comments 2 I strips PT-OP-R Modalities Start: 12/04/22 16:50 Freq: Status: Active Protocol: Document 05/14/23 08:47 [facility] (Rec: 05/14/23 09:38 [facility] [id number]) Hot Pack/Cold Pack Treatment Hot Pack Location thoracic spine, IT band R Patient Position Sitting Treatment Duration (minutes) 15 Patient Tolerance Good PT-OP-T Assessment and Plan Start: 12/04/22 16:50 Freq: Status: Active Protocol: Document 05/14/23 08:47 [facility] (Rec: 05/14/23 09:38 [facility] [id number]) Physical Therapy Assessment Goals Three Impairment postural dysfunction Impairment moderate to severe inc in kyphosis and protracted scapulas and IR shoulders, moderate fwd head and dowager' s hump. Short Term Goal (STG) patient to be instructed in neutral posture and postural correction exercises, positioning in sitting and in bed for improved postural health 01/29/23: goal met STG Duration goal met Jet Engine Mechanic Goal (LTG) Patient to be independent and compliant with HEP including postural correction and demonstrate improved postural awareness at rest and with function 05/14/23: compliance variable due to patient high fatigue level LTG Duration 06/14/23 Two Impairment activity tolerance Impairment Constant pain limiting sleep and all physical activity moderately by 75% per patient report Short Term Goal (STG) Patient able to resume 50% usual activities in the home and community due to dec in pain and report ability to sleep for at least 4 hour stretch at a time 01/29/23: goal progress. Limited by long-Covid symptoms of fatigue and SOB 05/14/23: Patient with limited ability to resume prior activities due to persistent SOB and fatigue, continues to do activities in home but with very frequent rest breaks in between short, slow bouts of activity Group Home Goal (LTG) Patient able to resume 75% usual activities in the home and community due to decrease in pain and report ability to sleep for at least 5-6 hour stretch at a time as measure of improved function LTG Duration 06/14/23 One Impairment pain as high as 8/10 mid thoracic and IT band right Short Term Goal (STG) Patient to report pain no greater than 5/10 with all usual activities 01/29/23: goal progress, less intense majority of time but with occasional stabs of pain especially ITB 05/14/23: goal met STG Duration 05/14/23 Jet Engine Mechanic Goal (LTG) Patient to report pain to no greater than 3/10 with all usual activities LTG Duration 06/14/23 Progress Towards Goals Progress Towards Goals Slow Progress due to Activity Tolerance,Slow Progress due to Medical Issues Assessment Summary Assessment Patient continues to be limited in her activity tolerance and ability to be compliant with HEP due to persistent fatigue and weakness which appears to be due to long-Covid. Best tolerance is for seated ther ex. Patient having difficult day today due to lack of sleep and persistent weakness. Recommended return to physician to discuss not wanting to use Nicotine patches and discuss any treatment alternatives. Feel she would benefit from continued PT to address weakness and activity tolerance while she continues with medical consultation. Physical Therapy Plan Frequency and Duration Frequency of Treatment 2x/Week Duration of treatment (weeks) 12 Plan of Care Start Date 05/14/23 Plan of Care End Date 06/14/23 Therapeutic Interventions Therapeutic Interventions Home Exercise Program,Manual Therapy,Orthotic/Prosthetic Management,Patient/Caregiver Education,Self-Care/Home Management,Soft Tissue Mobilization,Taping, Therapeutic Activities, Therapeutic Exercises Modalities Cold Pack/Ice Massage,Electric Stimulation,Hot Packs, Infrared Therapy,Ultrasound Next Visit Focus/Plan Next Note Type Treatment Note Next Visit Plan Continue PT for pain management, postural correction, strengthening, soft tissue mobilization. Modalities and manual therapy PRN.
--- NOTE | 2023-05-14 11:41 | PT.OPPOC ---
Physical, Occupational & Speech Therapy At [facility] Current Diagnoses Other chronic pain (05/14/23) Pain in thoracic spine (05/14/23) Abnormal posture (05/14/23) Weakness (05/14/23) Visit Care Team Role Provider Type La Torres DO Attending Provider Physician Family Provider Primary Care Provider Referring Provider Specialty: Medical Address: [address] [place] [address], [address], [place], [address] Email: [email or web address] Plan Of Care PT-OP-T Assessment and Plan Start: 12/04/22 16:50 Freq: Status: Active Protocol: Document 05/14/23 08:47 [facility] (Rec: 05/14/23 09:38 [facility] [id number]) Physical Therapy Assessment Goals Three Impairment postural dysfunction Impairment moderate to severe inc in kyphosis and protracted scapulas and IR shoulders, moderate fwd head and dowager' s hump. Short Term Goal (STG) patient to be instructed in neutral posture and postural correction exercises, positioning in sitting and in bed for improved postural health 01/29/23: goal met STG Duration goal met Usp Goal (LTG) Patient to be independent and compliant with HEP including postural correction and demonstrate improved postural awareness at rest and with function 05/14/23: compliance variable due to patient high fatigue level LTG Duration 06/14/23 Two Impairment activity tolerance Impairment Constant pain limiting sleep and all physical activity moderately by 75% per patient report Short Term Goal (STG) Patient able to resume 50% usual activities in the home and community due to dec in pain and report ability to sleep for at least 4 hour stretch at a time 01/29/23: goal progress. Limited by long-Covid symptoms of fatigue and SOB 05/14/23: Patient with limited ability to resume prior activities due to persistent SOB and fatigue, continues to do activities in home but with very frequent rest breaks in between short, slow bouts of activity Usp Goal (LTG) Patient able to resume 75% usual activities in the home and community due to decrease in pain and report ability to sleep for at least 5-6 hour stretch at a time as measure of improved function LTG Duration 06/14/23 One Impairment pain as high as 8/10 mid thoracic and IT band right Short Term Goal (STG) Patient to report pain no greater than 5/10 with all usual activities 01/29/23: goal progress, less intense majority of time but with occasional stabs of pain especially ITB 05/14/23: goal met STG Duration 05/14/23 Usp Goal (LTG) Patient to report pain to no greater than 3/10 with all usual activities LTG Duration 06/14/23 Progress Towards Goals Progress Towards Goals Slow Progress due to Activity Tolerance,Slow Progress due to Medical Issues Assessment Summary Assessment Patient continues to be limited in her activity tolerance and ability to be compliant with HEP due to persistent fatigue and weakness which appears to be due to long-Covid. Best tolerance is for seated ther ex. Patient having difficult day today due to lack of sleep and persistent weakness. Recommended return to physician to discuss not wanting to use Nicotine patches and discuss any treatment alternatives. Feel she would benefit from continued PT to address weakness and activity tolerance while she continues with medical consultation. Physical Therapy Plan Frequency and Duration Frequency of Treatment 2x/Week Duration of treatment (weeks) 12 Plan of Care Start Date 05/14/23 Plan of Care End Date 06/14/23 Therapeutic Interventions Therapeutic Interventions Home Exercise Program,Manual Therapy,Orthotic/Prosthetic Management,Patient/Caregiver Education,Self-Care/Home Management,Soft Tissue Mobilization,Taping, Therapeutic Activities, Therapeutic Exercises Modalities Cold Pack/Ice Massage,Electric Stimulation,Hot Packs, Infrared Therapy,Ultrasound Next Visit Focus/Plan Next Note Type Treatment Note Next Visit Plan Continue PT for pain management, postural correction, strengthening, soft tissue mobilization. Modalities and manual therapy PRN. Plan of Care Dates Plan of Care Start Date 05/14/23 Plan of Care End Date 06/14/23 Electronically Signed by: Luh Weaver, PT 05/14/23 [id number] If you are in agreement with this Plan of Care, please return a signed and dated copy. I have reviewed this Plan of Care and certify that the skilled therapy services above are required to meet the patient?s needs. Physician Signature Date Printed Name and Credentials Clinical Instructor Signature Printed Name and Credentials
--- NOTE | 2023-05-16 08:08 | PT-OP ANOTE ---
cancelled PT appointment, NRG
--- NOTE | 2023-06-05 09:16 | PT.OTN ---
Current Diagnoses Other chronic pain (06/05/23) Pain in thoracic spine (06/05/23) Abnormal posture (06/05/23) Weakness (06/05/23) Physical Therapy Treatment Note PT-OP-A Visit Information Start: 12/04/22 16:50 Freq: Status: Active Protocol: Document 06/05/23 08:42 SAK (Rec: 06/05/23 09:16 [facility] [id number]) Out-Patient Physical Therapy Visit Information Visit Information Visit Type Treatment Note Visit Start Time 08:30 Visit Stop Time 09:15 Total Visit Minutes 45 Visit Number 21 PT-OP-B Current Condition Start: 12/04/22 16:50 Freq: Status: Active Protocol: Document 02/12/23 10:24 SAK (Rec: 02/12/23 11:12 SAK [id number]) Current Condition History of Current Condition Onset Date 2 years Current Complaints rib pain, IT band pain History of Current Condition thoracic pain between shoulder blades at bra line laterally, posterior ribs, some help with OMT states Dr. Torres put rib back in place. Has tried to modify activities but persists. Feels best when leans back and pushes body into chair. 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 Doing shoulder blade squeeze, forward bent on ball, LTR. Also c/o excrutiating pain right IT band; has been using tennis ball for self massage. Increase in pain with bending forward, an just be sitting; stabbing pain, also N/T same area. Has gotten a recumbant exercise bike but hasn't used yet per Dr. Torres telling her she could make IT band pain worse if used bike incorrectly . Will be leaving on December 28 to due to of brother. Prior Treatments and Tests OMT with Dr. Torres Prior PT with this PT Treatment Goals Patient/Caregiver Goals dec pain, improve posture, strength, dec muscle tension PT-OP-C Subjective Start: 12/04/22 16:50 Freq: Status: Active Protocol: Document 06/05/23 08:42 SAK (Rec: 06/05/23 09:16 SAK [id number]) OP-PT Subjective Patient Comments Patient Comments Sees Dr. Torres 9:30 today, will need to leave appointment early. Got concussion last week after lid of dryer came down on her head, everything hurts more. States she continues to feel very weak, will now say yes to Dr. Hills's previous offer of referral to neuerologist. May have to cancel next appointment due to appointment with polisher [employer]. PT-OP-J Posture/Palpation/Skin Start: 12/04/22 16:50 Freq: Status: Active Protocol: Document 12/05/22 09:03 [facility] (Rec: 12/05/22 10:26 [facility] [id number]) Posture Evaluation Position Sitting Head/C-Spine Posture Forward Head T-Spine Posture Increased Kyphosis L-Spine Posture Flattened Shoulder Posture (L) Rounded,(R) Rounded Scapula Posture (L) Protracted,(R) Protracted Arm Posture (L) Internally Rotated,(R) Internally Rotated Palpation Assessment Location mid thoracic Palpation Location luisa T7-T10 Palpation Findings Soft Tissue Tightness, Tenderness right IT band Palpation Findings Soft Tissue Tightness,Muscle Guarding,Tenderness PT-OP-K Range of Motion Start: 12/04/22 16:50 Freq: Status: Active Protocol: Document 12/05/22 09:03 [facility] (Rec: 12/05/22 10:26 [facility] [id number]) Cervical Spine Range of Motion Cervical Spine Active ROM Limitations Soft Tissue Tightness,Pain Comments mod dec all motions Lumbar Spine Range of Motion Lumbar Spine Active ROM Limitations Soft Tissue Tightness,Bony Restriction,Pain Comments mod dec luisa Shoulder Goniometric Range of Motion Shoulder luisa Shoulder ROM WFL Yes Shoulder ROM Limitations Shoulder ROM Limitations Soft Tissue Tightness Comments mod decrease luisa Hip Goniometric Range of Motion Hip Right Hip ROM WFL No Comments mod dec IT band flex with TTP Left Hip ROM WFL Yes Hip ROM Limitations Hip ROM Limitations Soft Tissue Tightness,Muscle Weakness,Pain PT-OP-Q Treatments Start: 12/04/22 16:50 Freq: Status: Active Protocol: Document 06/05/23 08:42 [facility] (Rec: 06/05/23 09:16 [facility] [id number]) Cardio Equipment Recumbent Stepper (Sci-Fit) Duration (Minutes) 20 Resistance 2.0 Seat Position 11 Other 1.8 mi Manual Therapy Treatment Taping thoracic spine Body Location braline thoracic spine space correction x 2 I strips Treatment Focus pain relief Type of Tape kinesiotape Skin Inspection intact Comments 2 I strips right IT band Treatment Focus inhibition Type of Tape kinesio Skin Inspection intact Comments 2 I strips PT-OP-R Modalities Start: 12/04/22 16:50 Freq: Status: Active Protocol: Document 06/05/23 08:42 SAK (Rec: 06/05/23 09:16 SAK [id number]) Hot Pack/Cold Pack Treatment Hot Pack Location thoracic spine, IT band R Patient Position Sitting Treatment Duration (minutes) 15 Patient Tolerance Good PT-OP-T Assessment and Plan Start: 12/04/22 16:50 Freq: Status: Active Protocol: Document 06/05/23 08:42 SAK (Rec: 06/05/23 09:16 SAK [id number]) Physical Therapy Assessment Goals Three Impairment postural dysfunction Impairment moderate to severe inc in kyphosis and protracted scapulas and IR shoulders, moderate fwd head and dowager' s hump. Short Term Goal (STG) patient to be instructed in neutral posture and postural correction exercises, positioning in sitting and in bed for improved postural health 01/29/23: goal met STG Duration goal met Group Home Goal (LTG) Patient to be independent and compliant with HEP including postural correction and demonstrate improved postural awareness at rest and with function 05/14/23: compliance variable due to patient high fatigue level LTG Duration 06/14/23 Two Impairment activity tolerance Impairment Constant pain limiting sleep and all physical activity moderately by 75% per patient report Short Term Goal (STG) Patient able to resume 50% usual activities in the home and community due to dec in pain and report ability to sleep for at least 4 hour stretch at a time 01/29/23: goal progress. Limited by long-Covid symptoms of fatigue and SOB 05/14/23: Patient with limited ability to resume prior activities due to persistent SOB and fatigue, continues to do activities in home but with very frequent rest breaks in between short, slow bouts of activity Group Home Goal (LTG) Patient able to resume 75% usual activities in the home and community due to decrease in pain and report ability to sleep for at least 5-6 hour stretch at a time as measure of improved function LTG Duration 06/14/23 One Impairment pain as high as 8/10 mid thoracic and IT band right Short Term Goal (STG) Patient to report pain no greater than 5/10 with all usual activities 01/29/23: goal progress, less intense majority of time but with occasional stabs of pain especially ITB 05/14/23: goal met STG Duration 05/14/23 Arcade Game Technician Goal (LTG) Patient to report pain to no greater than 3/10 with all usual activities LTG Duration 06/14/23 Progress Towards Goals Progress Towards Goals Slow Progress due to Activity Tolerance,Slow Progress due to Medical Issues Assessment Summary Assessment Shortened treatment due to doctor's appointment. Exacerbation of pain after fall. Physical Therapy Plan Frequency and Duration Frequency of Treatment 2x/Week Duration of treatment (weeks) 12 Plan of Care Start Date 05/14/23 Plan of Care End Date 06/14/23 Therapeutic Interventions Therapeutic Interventions Home Exercise Program,Manual Therapy,Orthotic/Prosthetic Management,Patient/Caregiver Education,Self-Care/Home Management,Soft Tissue Mobilization,Taping, Therapeutic Activities, Therapeutic Exercises Modalities Cold Pack/Ice Massage,Electric Stimulation,Hot Packs, Infrared Therapy,Ultrasound Next Visit Focus/Plan Next Note Type Re-Evaluation Next Visit Plan Continue PT per POC pending any further recommendations from Dr. Torres.
--- NOTE | 2023-06-11 10:23 | PT.OTN ---
Current Diagnoses Other chronic pain (06/11/23) Pain in thoracic spine (06/11/23) Abnormal posture (06/11/23) Weakness (06/11/23) Physical Therapy Treatment Note PT-OP-A Visit Information Start: 12/04/22 16:50 Freq: Status: Active Protocol: Document 06/11/23 08:42 [facility] (Rec: 06/11/23 09:30 [facility] [id number]) Out-Patient Physical Therapy Visit Information Visit Information Visit Type Treatment Note Visit Start Time 08:30 Visit Stop Time 09:15 Total Visit Minutes 45 Visit Number 22 PT-OP-B Current Condition Start: 12/04/22 16:50 Freq: Status: Active Protocol: Document 02/12/23 10:24 [facility] (Rec: 02/12/23 11:12 [facility] [id number]) Current Condition History of Current Condition Onset Date 2 years Current Complaints rib pain, IT band pain History of Current Condition thoracic pain between shoulder blades at bra line laterally, posterior ribs, some help with OMT states Dr. Torres put rib back in place. Has tried to modify activities but persists. Feels best when leans back and pushes body into chair. 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 Doing shoulder blade squeeze, forward bent on ball, LTR. Also c/o excrutiating pain right IT band; has been using tennis ball for self massage. Increase in pain with bending forward, an just be sitting; stabbing pain, also N/T same area. Has gotten a recumbant exercise bike but hasn't used yet per Dr. Torres telling her she could make IT band pain worse if used bike incorrectly . Will be leaving on December 28 to due to of brother. Prior Treatments and Tests OMT with Dr. Torres Prior PT with this PT Treatment Goals Patient/Caregiver Goals dec pain, improve posture, strength, dec muscle tension PT-OP-C Subjective Start: 12/04/22 16:50 Freq: Status: Active Protocol: Document 06/11/23 08:42 [facility] (Rec: 06/11/23 09:30 [facility] [id number]) OP-PT Subjective Patient Comments Patient Comments Not having a good morning, has been chasing cat to get it back inside for [address] Torres, is being referred to a neurologist. Is going to try Nicotine treatment as recommended for long Covid symptoms PT-OP-J Posture/Palpation/Skin Start: 12/04/22 16:50 Freq: Status: Active Protocol: Document 12/05/22 09:03 [facility] (Rec: 12/05/22 10:26 [facility] [id number]) Posture Evaluation Position Sitting Head/C-Spine Posture Forward Head T-Spine Posture Increased Kyphosis L-Spine Posture Flattened Shoulder Posture (L) Rounded,(R) Rounded Scapula Posture (L) Protracted,(R) Protracted Arm Posture (L) Internally Rotated,(R) Internally Rotated Palpation Assessment Location mid thoracic Palpation Location luisa T7-T10 Palpation Findings Soft Tissue Tightness, Tenderness right IT band Palpation Findings Soft Tissue Tightness,Muscle Guarding,Tenderness PT-OP-K Range of Motion Start: 12/04/22 16:50 Freq: Status: Active Protocol: Document 12/05/22 09:03 [facility] (Rec: 12/05/22 10:26 [facility] [id number]) Cervical Spine Range of Motion Cervical Spine Active ROM Limitations Soft Tissue Tightness,Pain Comments mod dec all motions Lumbar Spine Range of Motion Lumbar Spine Active ROM Limitations Soft Tissue Tightness,Bony Restriction,Pain Comments mod dec luisa Shoulder Goniometric Range of Motion Shoulder luisa Shoulder ROM WFL Yes Shoulder ROM Limitations Shoulder ROM Limitations Soft Tissue Tightness Comments mod decrease luisa Hip Goniometric Range of Motion Hip Right Hip ROM WFL No Comments mod dec IT band flex with TTP Left Hip ROM WFL Yes Hip ROM Limitations Hip ROM Limitations Soft Tissue Tightness,Muscle Weakness,Pain PT-OP-Q Treatments Start: 12/04/22 16:50 Freq: Status: Active Protocol: Document 06/11/23 08:42 [facility] (Rec: 06/11/23 09:30 [facility] [id number]) Cardio Equipment Recumbent Stepper (Sci-Fit) Duration (Minutes) 20 Resistance 2.0 Seat Position 11 Other 1.8 mi Gym Equipment Shuttle Recovery Unilateral Squats Resistance 37 Shuttle Recovery Platform Stable Reps/Time 10x 2 Bilateral Squats Details cues for quad and gluteal activation Resistance 75 Shuttle Recovery Platform Stable Reps/Time 10x2 Shuttle Balance chains red, cords loose Details balance and weight shift fwd/ bck with feet sta, side toggered, side to side Reps/Duration 4 min Therapeutic Exercises Supine Exercises pec stretch Reps/Minutes 2x30 Comments gentle Manual Therapy Treatment Soft Tissue Mobilization UT, thoracic paraspinals, periscapular mm Intensity/Depth Moderate Body Position Sitting Comments towel roll behind thoracic spine Taping thoracic spine Body Location braline thoracic spine space correction x 2 I strips Treatment Focus pain relief Type of Tape kinesiotape Skin Inspection intact Comments 2 I strips right IT band Treatment Focus inhibition Type of Tape kinesio Skin Inspection intact Comments 2 I strips PT-OP-R Modalities Start: 12/04/22 16:50 Freq: Status: Active Protocol: Document 06/11/23 08:42 [facility] (Rec: 06/11/23 09:30 [facility] [id number]) Hot Pack/Cold Pack Treatment Hot Pack Location thoracic spine, IT band R Patient Position Sitting Treatment Duration (minutes) 15 Patient Tolerance Good Ultrasound Therapy Treatment mid thoracic paraspinals Treatment Duration (minutes) 8 Patient Position Sitting Frequency Setting (mHz) 1 Duty Cycle 100% Intensity Setting (w/cm2) 1.4 PT-OP-T Assessment and Plan Start: 12/04/22 16:50 Freq: Status: Active Protocol: Document 06/11/23 08:42 [facility] (Rec: 06/11/23 09:30 [facility] [id number]) Physical Therapy Assessment Goals Three Impairment postural dysfunction Impairment moderate to severe inc in kyphosis and protracted scapulas and IR shoulders, moderate fwd head and dowager' s hump. Short Term Goal (STG) patient to be instructed in neutral posture and postural correction exercises, positioning in sitting and in bed for improved postural health 01/29/23: goal met STG Duration goal met Long-Term Goal (LTG) Patient to be independent and compliant with HEP including postural correction and demonstrate improved postural awareness at rest and with function 05/14/23: compliance variable due to patient high fatigue level LTG Duration 06/14/23 Two Impairment activity tolerance Impairment Constant pain limiting sleep and all physical activity moderately by 75% per patient report Short Term Goal (STG) Patient able to resume 50% usual activities in the home and community due to dec in pain and report ability to sleep for at least 4 hour stretch at a time 01/29/23: goal progress. Limited by long-Covid symptoms of fatigue and SOB 05/14/23: Patient with limited ability to resume prior activities due to persistent SOB and fatigue, continues to do activities in home but with very frequent rest breaks in between short, slow bouts of activity Long-Term Goal (LTG) Patient able to resume 75% usual activities in the home and community due to decrease in pain and report ability to sleep for at least 5-6 hour stretch at a time as measure of improved function LTG Duration 06/14/23 One Impairment pain as high as 8/10 mid thoracic and IT band right Short Term Goal (STG) Patient to report pain no greater than 5/10 with all usual activities 01/29/23: goal progress, less intense majority of time but with occasional stabs of pain especially ITB 05/14/23: goal met STG Duration 05/14/23 [employer] Goal (LTG) Patient to report pain to no greater than 3/10 with all usual activities LTG Duration 06/14/23 Progress Towards Goals Progress Towards Goals Slow Progress due to Activity Tolerance,Slow Progress due to Medical Issues Assessment Summary Assessment Patient referred to neurologist due to persistent weakness in muscles, numbness in face. Dec exercise tolerance today after chasing cat. Patient having difficulty fully complying with HEP due to weakness and fatigue. Physical Therapy Plan Frequency and Duration Frequency of Treatment 2x/Week Duration of treatment (weeks) 12 Plan of Care Start Date 05/14/23 Plan of Care End Date 06/14/23 Therapeutic Interventions Therapeutic Interventions Home Exercise Program,Manual Therapy,Orthotic/Prosthetic Management,Patient/Caregiver Education,Self-Care/Home Management,Soft Tissue Mobilization,Taping, Therapeutic Activities, Therapeutic Exercises Modalities Cold Pack/Ice Massage,Electric Stimulation,Hot Packs, Infrared Therapy,Ultrasound Next Visit Focus/Plan Next Note Type Re-Evaluation Next Visit Plan Continue PT per POC pending any further recommendations from Dr. Torres.
--- NOTE | 2023-06-13 14:29 | PT.OTRE ---
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 Hiatal hernia (~11/22/20) History of recurrent pneumonia History of stent insertion of renal artery Hypertension Iron deficiency anemia Left renal artery stenosis (~11/22/20) Lipoma Macular degeneration, age related, nonexudative Melanoma Myocardial infarction due to atherothrombotic coronary artery disease Ocular migraine Osteopenia of femoral neck, bilateral (~02/2019) Paroxysmal atrial fibrillation Parumbilical hernia (~11/22/20) Pressure ulcer, buttock, right, unstageable Prinzmetal's angina (1975) Proteus enteritis (~2018) Renal artery atherosclerosis (09/22/11) Severe obstructive sleep apnea-hypopnea syndrome (10/22/15) Shingles (2016) Shoulder pain Sleep apnea Statin intolerance Stenosis of celiac artery (~11/22/20) Stroke Systemic lupus erythematosus Thyroid nodule Surgical History (Last Reviewed 05/29/23 @ 11:26 by Allan De Luna PA-C) Anesthesia H/O colonoscopy with polypectomy (~04/2020) History of arthroplasty (12/09/12) History of arthroplasty (01/20/13) History of cataract removal with insertion of prosthetic lens (2014) History of cholecystectomy History of tonsillectomy Stented coronary artery (2013) Visit Care Team Role Provider Type La Torres DO Attending Provider Physician Family Provider Primary Care Provider Referring Provider Specialty: Medical Address: [address] [place] [address], [address], [address] Email: [email or web address] Physical Therapy Re-Evaluation PT-OP-A Visit Information Start: 12/04/22 16:50 Freq: Status: Active Protocol: Document 06/13/23 08:45 [facility] (Rec: 06/13/23 09:41 [facility] [id number]) Out-Patient Physical Therapy Visit Information Visit Information Visit Type Treatment Note Visit Start Time 08:30 Visit Stop Time 09:15 Total Visit Minutes 60 Visit Number 22 PT-OP-B Current Condition Start: 12/04/22 16:50 Freq: Status: Active Protocol: Document 02/12/23 10:24 [facility] (Rec: 02/12/23 11:12 [facility] [id number]) Current Condition History of Current Condition Onset Date 2 years Current Complaints rib pain, IT band pain History of Current Condition thoracic pain between shoulder blades at bra line laterally, posterior ribs, some help with OMT states Dr. Torres put rib back in place. Has tried to modify activities but persists. Feels best when leans back and pushes body into chair. 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 Doing shoulder blade squeeze, forward bent on ball, LTR. Also c/o excrutiating pain right IT band; has been using tennis ball for self massage. Increase in pain with bending forward, an just be sitting; stabbing pain, also N/T same area. Has gotten a recumbant exercise bike but hasn't used yet per Dr. Torres telling her she could make IT band pain worse if used bike incorrectly . Will be leaving on December 28 to due to of brother. Prior Treatments and Tests OMT with Dr. Torres Prior PT with this PT Treatment Goals Patient/Caregiver Goals dec pain, improve posture, strength, dec muscle tension PT-OP-C Subjective Start: 12/04/22 16:50 Freq: Status: Active Protocol: Document 06/13/23 08:45 [facility] (Rec: 06/13/23 09:41 [facility] [id number]) OP-PT Subjective Patient Comments Patient Comments Reports very fatigued today, Waiting for neurologist referral. Numbness in face, cheek, left UE. Pain into luisa distal LEs. Weakness persists. PT-OP-J Posture/Palpation/Skin Start: 12/04/22 16:50 Freq: Status: Active Protocol: Document 12/05/22 09:03 [facility] (Rec: 12/05/22 10:26 [facility] [id number]) Posture Evaluation Position Sitting Head/C-Spine Posture Forward Head T-Spine Posture Increased Kyphosis L-Spine Posture Flattened Shoulder Posture (L) Rounded,(R) Rounded Scapula Posture (L) Protracted,(R) Protracted Arm Posture (L) Internally Rotated,(R) Internally Rotated Palpation Assessment Location mid thoracic Palpation Location luisa T7-T10 Palpation Findings Soft Tissue Tightness, Tenderness right IT band Palpation Findings Soft Tissue Tightness,Muscle Guarding,Tenderness PT-OP-K Range of Motion Start: 12/04/22 16:50 Freq: Status: Active Protocol: Document 12/05/22 09:03 [facility] (Rec: 12/05/22 10:26 [facility] [id number]) Cervical Spine Range of Motion Cervical Spine Active ROM Limitations Soft Tissue Tightness,Pain Comments mod dec all motions Lumbar Spine Range of Motion Lumbar Spine Active ROM Limitations Soft Tissue Tightness,Bony Restriction,Pain Comments mod dec luisa Shoulder Goniometric Range of Motion Shoulder Measured in Degrees luisa Shoulder ROM WFL Yes Shoulder ROM Limitations Shoulder ROM Limitations Soft Tissue Tightness Comments mod decrease luisa Hip Goniometric Range of Motion Hip Measured in Degrees Right Hip ROM WFL No Comments mod dec IT band flex with TTP Left Hip ROM WFL Yes Hip ROM Limitations Hip ROM Limitations Soft Tissue Tightness,Muscle Weakness,Pain PT-OP-Q Treatments Start: 12/04/22 16:50 Freq: Status: Active Protocol: Document 06/11/23 08:42 [facility] (Rec: 06/11/23 09:30 [facility] [id number]) Cardio Equipment Recumbent Stepper (Sci-Fit) Duration (Minutes) 20 Resistance 2.0 Seat Position 11 Other 1.8 mi Gym Equipment Shuttle Recovery Unilateral Squats Resistance 37 Shuttle Recovery Platform Stable Reps/Time 10x 2 Bilateral Squats Details cues for quad and gluteal activation Resistance 75 Shuttle Recovery Platform Stable Reps/Time 10x2 Shuttle Balance chains red, cords loose Details balance and weight shift fwd/ bck with feet sta, side toggered, side to side Reps/Duration 4 min Therapeutic Exercises Supine Exercises pec stretch Reps/Minutes 2x30 Comments gentle Manual Therapy Treatment Soft Tissue Mobilization UT, thoracic paraspinals, periscapular mm Intensity/Depth Moderate Body Position Sitting Comments towel roll behind thoracic spine Taping thoracic spine Body Location braline thoracic spine space correction x 2 I strips Treatment Focus pain relief Type of Tape kinesiotape Skin Inspection intact Comments 2 I strips right IT band Treatment Focus inhibition Type of Tape kinesio Skin Inspection intact Comments 2 I strips PT-OP-R Modalities Start: 12/04/22 16:50 Freq: Status: Active Protocol: Document 06/13/23 08:45 [facility] (Rec: 06/13/23 09:41 [facility] [id number]) Hot Pack/Cold Pack Treatment Hot Pack Location thoracic spine, IT band R Patient Position Sitting Treatment Duration (minutes) 15 Patient Tolerance Good Ultrasound Therapy Treatment mid thoracic paraspinals Treatment Duration (minutes) 8 Patient Position Sitting Frequency Setting (mHz) 1 Duty Cycle 100% Intensity Setting (w/cm2) 1.4 PT-OP-T Assessment and Plan Start: 12/04/22 16:50 Freq: Status: Active Protocol: Document 06/13/23 08:45 [facility] (Rec: 06/13/23 09:41 [facility] [id number]) Physical Therapy Assessment Goals Three Impairment postural dysfunction Impairment moderate to severe inc in kyphosis and protracted scapulas and IR shoulders, moderate fwd head and dowager' s hump. Short Term Goal (STG) patient to be instructed in neutral posture and postural correction exercises, positioning in sitting and in bed for improved postural health 01/29/23: goal met STG Duration goal met Shelter Goal (LTG) Patient to be independent and compliant with HEP including postural correction and demonstrate improved postural awareness at rest and with function 05/14/23: compliance variable due to patient high fatigue level 06/13/23: poor ability to comply due to high fatigue level LTG Duration 06/14/23 Two Impairment activity tolerance Impairment Constant pain limiting sleep and all physical activity moderately by 75% per patient report Short Term Goal (STG) Patient able to resume 50% usual activities in the home and community due to dec in pain and report ability to sleep for at least 4 hour stretch at a time 01/29/23: goal progress. Limited by long-Covid symptoms of fatigue and SOB 05/14/23: Patient with limited ability to resume prior activities due to persistent SOB and fatigue, continues to do activities in home but with very frequent rest breaks in between short, slow bouts of activity 06/13/23: Improved sleep ability, goal met STG Duration goal met Shelter Goal (LTG) Patient able to resume 75% usual activities in the home and community due to decrease in pain and report ability to sleep for at least 5-6 hour stretch at a time as measure of improved function 06/13/23: improved sleep due to decreased pain, but difficulty resuming normal activity level due to fatigue LTG Duration 06/14/23 One Impairment pain as high as 8/10 mid thoracic and IT band right Short Term Goal (STG) Patient to report pain no greater than 5/10 with all usual activities 01/29/23: goal progress, less intense majority of time but with occasional stabs of pain especially ITB 05/14/23: goal met STG Duration goal met Shelter Goal (LTG) Patient to report pain to no greater than 3/10 with all usual activities 06/13/23: goal progress, still occasional flares to 8-9/10 but much less frequent per patient report. LTG Duration 06/14/23 Progress Towards Goals Progress Towards Goals Slow Progress due to Activity Tolerance,Slow Progress due to Medical Issues Assessment Summary Assessment Patient continues to be limited by her heavy fatigue and weakness with additional symptoms of weakness in face and left hand. She will be starting iron infusions next month and is having B12 shots. She has had significant improvement in pain level with PT but has had difficulty complying with HEP due to fatigue level. At this time we have discussed putting PT on hold for 1 month to allow her to address medical concerns then resume pending any further medical evaluations or recommendations . Physical Therapy Plan Frequency and Duration Frequency of Treatment 2x/Week Duration of treatment (weeks) 12 Plan of Care Start Date 06/13/23 Plan of Care End Date 09/12/23 Therapeutic Interventions Therapeutic Interventions Home Exercise Program,Manual Therapy,Orthotic/Prosthetic Management,Patient/Caregiver Education,Self-Care/Home Management,Soft Tissue Mobilization,Taping, Therapeutic Activities, Therapeutic Exercises Modalities Cold Pack/Ice Massage,Electric Stimulation,Hot Packs, Infrared Therapy,Ultrasound Next Visit Focus/Plan Next Note Type Treatment Note Next Visit Plan Patient on hold for 1 month then resume PT pending any further physician evaluations and recommendations. She will have started iron infusions as well and anticipate her energy level may pick up attendant to allow her to tolerate therapy better.
--- NOTE | 2023-06-13 14:29 | PT.OPPOC ---
Physical, Occupational & Speech Therapy At Current Diagnoses Other chronic pain (06/13/23) Pain in thoracic spine (06/13/23) Abnormal posture (06/13/23) Weakness (06/13/23) Visit Care Team Role Provider Type La Torres DO Attending Provider Physician Family Provider Primary Care Provider Referring Provider Specialty: Medical Address: [address] [place] [address], [address], [place], [address] Email: [email or web address] Plan Of Care PT-OP-T Assessment and Plan Start: 12/04/22 16:50 Freq: Status: Active Protocol: Document 06/13/23 08:45 [facility]AK (Rec: 06/13/23 09:41 [facility]AK [id number]) Physical Therapy Assessment Goals Three Impairment postural dysfunction Impairment moderate to severe inc in kyphosis and protracted scapulas and IR shoulders, moderate fwd head and dowager' s hump. Short Term Goal (STG) patient to be instructed in neutral posture and postural correction exercises, positioning in sitting and in bed for improved postural health 01/29/23: goal met STG Duration goal met Retirement Goal (LTG) Patient to be independent and compliant with HEP including postural correction and demonstrate improved postural awareness at rest and with function 05/14/23: compliance variable due to patient high fatigue level 06/13/23: poor ability to comply due to high fatigue level LTG Duration 06/14/23 Two Impairment activity tolerance Impairment Constant pain limiting sleep and all physical activity moderately by 75% per patient report Short Term Goal (STG) Patient able to resume 50% usual activities in the home and community due to dec in pain and report ability to sleep for at least 4 hour stretch at a time 01/29/23: goal progress. Limited by long-Covid symptoms of fatigue and SOB 05/14/23: Patient with limited ability to resume prior activities due to persistent SOB and fatigue, continues to do activities in home but with very frequent rest breaks in between short, slow bouts of activity 06/13/23: Improved sleep ability, goal met STG Duration goal met Fruit Canner Goal (LTG) Patient able to resume 75% usual activities in the home and community due to decrease in pain and report ability to sleep for at least 5-6 hour stretch at a time as measure of improved function 06/13/23: improved sleep due to decreased pain, but difficulty resuming normal activity level due to fatigue LTG Duration 06/14/23 One Impairment pain as high as 8/10 mid thoracic and IT band right Short Term Goal (STG) Patient to report pain no greater than 5/10 with all usual activities 01/29/23: goal progress, less intense majority of time but with occasional stabs of pain especially ITB 05/14/23: goal met STG Duration goal met Fruit Canner Goal (LTG) Patient to report pain to no greater than 3/10 with all usual activities 06/13/23: goal progress, still occasional flares to 8-9/10 but much less frequent per patient report. LTG Duration 06/14/23 Progress Towards Goals Progress Towards Goals Slow Progress due to Activity Tolerance,Slow Progress due to Medical Issues Assessment Summary Assessment Patient continues to be limited by her heavy fatigue and weakness with additional symptoms of weakness in face and left hand. She will be starting iron infusions next month and is having B12 shots. She has had significant improvement in pain level with PT but has had difficulty complying with HEP due to fatigue level. At this time we have discussed putting PT on hold for 1 month to allow her to address medical concerns then resume pending any further medical evaluations or recommendations . Physical Therapy Plan Frequency and Duration Frequency of Treatment 2x/Week Duration of treatment (weeks) 12 Plan of Care Start Date 06/13/23 Plan of Care End Date 09/12/23 Therapeutic Interventions Therapeutic Interventions Home Exercise Program,Manual Therapy,Orthotic/Prosthetic Management,Patient/Caregiver Education,Self-Care/Home Management,Soft Tissue Mobilization,Taping, Therapeutic Activities, Therapeutic Exercises Modalities Cold Pack/Ice Massage,Electric Stimulation,Hot Packs, Infrared Therapy,Ultrasound Next Visit Focus/Plan Next Note Type Treatment Note Next Visit Plan Patient on hold for 1 month then resume PT pending any further physician evaluations and recommendations. She will have started iron infusions as well and anticipate her energy level may order picker/assembler to allow her to tolerate therapy better. Plan of Care Dates Plan of Care Start Date 06/13/23 Plan of Care End Date 09/12/23 Electronically Signed by: Luh Weaver, PT 06/13/23 6077 If you are in agreement with this Plan of Care, please return a signed and dated copy. I have reviewed this Plan of Care and certify that the skilled therapy services above are required to meet the patient?s needs. Physician Signature Date Printed Name and Credentials Clinical Instructor Signature Printed Name and Credentials
--- NOTE | 2023-07-19 14:43 | PT.OTN ---
Current Diagnoses Other chronic pain (07/19/23) Pain in thoracic spine (07/19/23) Abnormal posture (07/19/23) Weakness (07/19/23) Physical Therapy Treatment Note PT-OP-A Visit Information Start: 12/04/22 16:50 Freq: Status: Active Protocol: Document 07/19/23 08:05 [facility] (Rec: 07/19/23 08:38 [facility] [id number]) Out-Patient Physical Therapy Visit Information Visit Information Visit Type Treatment Note Visit Start Time 08:00 Visit Stop Time 08:48 Total Visit Minutes 48 Visit Number 23 Evaluation Information Evaluation Date 12/05/22 Precautions Precautions cardiac SOB PT-OP-B Current Condition Start: 12/04/22 16:50 Freq: Status: Active Protocol: Document 02/12/23 10:24 SAK (Rec: 02/12/23 11:12 [facility] [id number]) Current Condition History of Current Condition Onset Date 2 years Current Complaints rib pain, IT band pain History of Current Condition thoracic pain between shoulder blades at bra line laterally, posterior ribs, some help with OMT states Dr. Torres put rib back in place. Has tried to modify activities but persists. Feels best when leans back and pushes body into chair. 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 Doing shoulder blade squeeze, forward bent on ball, LTR. Also c/o excrutiating pain right IT band; has been using tennis ball for self massage. Increase in pain with bending forward, an just be sitting; stabbing pain, also N/T same area. Has gotten a recumbant exercise bike but hasn't used yet per Dr. Torres telling her she could make IT band pain worse if used bike incorrectly . Will be leaving on December 28 to due to of brother. Prior Treatments and Tests OMT with Dr. Torres Prior PT with this PT Treatment Goals Patient/Caregiver Goals dec pain, improve posture, strength, dec muscle tension PT-OP-C Subjective Start: 12/04/22 16:50 Freq: Status: Active Protocol: Document 07/19/23 08:05 [facility] (Rec: 07/19/23 08:38 [facility] [id number]) OP-PT Subjective Patient Comments Patient Comments Saw Dr. Torres last week, had flu shot and Vit B12 shot. 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 Increase in blood pressure medications. Has had 2 iron infusions. Horrible SOB, muscle weakness, fatigue. Manual techniques and heat most helpful. Pain improved. Pain in mid back and IT band improved with PT PT-OP-J Posture/Palpation/Skin Start: 12/04/22 16:50 Freq: Status: Active Protocol: Document 12/05/22 09:03 [facility] (Rec: 12/05/22 10:26 [facility] [id number]) Posture Evaluation Position Sitting Head/C-Spine Posture Forward Head T-Spine Posture Increased Kyphosis L-Spine Posture Flattened Shoulder Posture (L) Rounded,(R) Rounded Scapula Posture (L) Protracted,(R) Protracted Arm Posture (L) Internally Rotated,(R) Internally Rotated Palpation Assessment Location mid thoracic Palpation Location luisa T7-T10 Palpation Findings Soft Tissue Tightness, Tenderness right IT band Palpation Findings Soft Tissue Tightness,Muscle Guarding,Tenderness PT-OP-K Range of Motion Start: 12/04/22 16:50 Freq: Status: Active Protocol: Document 12/05/22 09:03 [facility] (Rec: 12/05/22 10:26 [facility] [id number]) Cervical Spine Range of Motion Cervical Spine Active ROM Limitations Soft Tissue Tightness,Pain Comments mod dec all motions Lumbar Spine Range of Motion Lumbar Spine Active ROM Limitations Soft Tissue Tightness,Bony Restriction,Pain Comments mod dec luisa Shoulder Goniometric Range of Motion Shoulder luisa Shoulder ROM WFL Yes Shoulder ROM Limitations Shoulder ROM Limitations Soft Tissue Tightness Comments mod decrease luisa Hip Goniometric Range of Motion Hip Right Hip ROM WFL No Comments mod dec IT band flex with TTP Left Hip ROM WFL Yes Hip ROM Limitations Hip ROM Limitations Soft Tissue Tightness,Muscle Weakness,Pain PT-OP-Q Treatments Start: 12/04/22 16:50 Freq: Status: Active Protocol: Document 07/19/23 08:05 [facility] (Rec: 07/19/23 08:38 [facility] [id number]) Cardio Equipment Recumbent Stepper (Sci-Fit) Duration (Minutes) 10 Resistance 2.0 Seat Position 11 Therapeutic Exercises Sitting Exercises cat/cow Comments next session ball squeeze Reps/Minutes 10x5 chin tuck Reps/Minutes 5x5 scapular retraction Sitting Exercise Name passive>AAROM>AROM Reps/Minutes 3 min Comments 9:00-3:00 deep breathing Reps/Minutes 5x2 Comments 1:2 inhale:exhale Manual Therapy Treatment Soft Tissue Mobilization UT, thoracic paraspinals, periscapular mm Intensity/Depth Moderate Body Position Sitting Comments towel roll behind thoracic spine PT-OP-R Modalities Start: 12/04/22 16:50 Freq: Status: Active Protocol: Document 06/13/23 08:45 [facility] (Rec: 06/13/23 09:41 [facility] [id number]) Hot Pack/Cold Pack Treatment Hot Pack Location thoracic spine, IT band R Patient Position Sitting Treatment Duration (minutes) 15 Patient Tolerance Good Ultrasound Therapy Treatment mid thoracic paraspinals Treatment Duration (minutes) 8 Patient Position Sitting Frequency Setting (mHz) 1 Duty Cycle 100% Intensity Setting (w/cm2) 1.4 PT-OP-T Assessment and Plan Start: 12/04/22 16:50 Freq: Status: Active Protocol: Document 07/19/23 08:05 [facility] (Rec: 07/19/23 08:38 [facility] [id number]) Physical Therapy Assessment Goals Three Impairment postural dysfunction Impairment moderate to severe inc in kyphosis and protracted scapulas and IR shoulders, moderate fwd head and dowager' s hump. Short Term Goal (STG) patient to be instructed in neutral posture and postural correction exercises, positioning in sitting and in bed for improved postural health 01/29/23: goal met STG Duration goal met Wash Oil Pump Operator Goal (LTG) Patient to be independent and compliant with HEP including postural correction and demonstrate improved postural awareness at rest and with function 05/14/23: compliance variable due to patient high fatigue level 06/13/23: poor ability to comply due to high fatigue level LTG Duration 06/14/23 Two Impairment activity tolerance Impairment Constant pain limiting sleep and all physical activity moderately by 75% per patient report Short Term Goal (STG) Patient able to resume 50% usual activities in the home and community due to dec in pain and report ability to sleep for at least 4 hour stretch at a time 01/29/23: goal progress. Limited by long-Covid symptoms of fatigue and SOB 05/14/23: Patient with limited ability to resume prior activities due to persistent SOB and fatigue, continues to do activities in home but with very frequent rest breaks in between short, slow bouts of activity 06/13/23: Improved sleep ability, goal met STG Duration goal met [facility] Goal (LTG) Patient able to resume 75% usual activities in the home and community due to decrease in pain and report ability to sleep for at least 5-6 hour stretch at a time as measure of improved function 06/13/23: improved sleep due to decreased pain, but difficulty resuming normal activity level due to fatigue LTG Duration 06/14/23 One Impairment pain as high as 8/10 mid thoracic and IT band right Short Term Goal (STG) Patient to report pain no greater than 5/10 with all usual activities 01/29/23: goal progress, less intense majority of time but with occasional stabs of pain especially ITB 05/14/23: goal met STG Duration goal met [facility] Goal (LTG) Patient to report pain to no greater than 3/10 with all usual activities 06/13/23: goal progress, still occasional flares to 8-9/10 but much less frequent per patient report. LTG Duration 06/14/23 Progress Towards Goals Progress Towards Goals Slow Progress due to Activity Tolerance,Slow Progress due to Medical Issues Assessment Summary Assessment PT helpful for pain, still limited by fatigue and full body weakness. Has started iron infusions, no change yet. Has appointments scheduled with telephone order dispatcher and neurologist Physical Therapy Plan Frequency and Duration Frequency of Treatment 2x/Week Duration of treatment (weeks) 12 Plan of Care Start Date 06/13/23 Plan of Care End Date 09/12/23 Therapeutic Interventions Therapeutic Interventions Home Exercise Program,Manual Therapy,Orthotic/Prosthetic Management,Patient/Caregiver Education,Self-Care/Home Management,Soft Tissue Mobilization,Taping, Therapeutic Activities, Therapeutic Exercises Modalities Cold Pack/Ice Massage,Electric Stimulation,Hot Packs, Infrared Therapy,Ultrasound Next Visit Focus/Plan Next Note Type Treatment Note Next Visit Plan Further discussion of POC.
--- NOTE | 2023-10-15 10:00 | PT.OPDS ---
Current Diagnoses Other chronic pain (07/19/23) Pain in thoracic spine (07/19/23) Abnormal posture (07/19/23) Weakness (07/19/23) Visit Care Team Role Provider Type La Torres DO Attending Provider Physician Family Provider Primary Care Provider Referring Provider Specialty: Medical Address: [address] [place] [address], [address], [place], [address] Email: [email or web address] Visit Number Visit Number 23 Discharge Summary PT-OP-B Current Condition Start: 12/04/22 16:50 Freq: Status: Active Protocol: Document 02/12/23 10:24 [facility] (Rec: 02/12/23 11:12 [facility] [id number]) Current Condition History of Current Condition Onset Date 2 years Current Complaints rib pain, IT band pain History of Current Condition thoracic pain between shoulder blades at bra line laterally, posterior ribs, some help with OMT states Dr. Torres put rib back in place. Has tried to modify activities but persists. Feels best when leans back and pushes body into chair. 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 Doing shoulder blade squeeze, forward bent on ball, LTR. Also c/o excrutiating pain right IT band; has been using tennis ball for self massage. Increase in pain with bending forward, an just be sitting; stabbing pain, also N/T same area. Has gotten a recumbant exercise bike but hasn't used yet per Dr. Torres telling her she could make IT band pain worse if used bike incorrectly . Will be leaving on December 28 to due to of brother. Prior Treatments and Tests OMT with Dr. Torres Prior PT with this PT Treatment Goals Patient/Caregiver Goals dec pain, improve posture, strength, dec muscle tension PT-OP-C Subjective Start: 12/04/22 16:50 Freq: Status: Active Protocol: Document 07/19/23 08:05 [facility] (Rec: 07/19/23 08:38 [facility] [id number]) OP-PT Subjective Patient Comments Patient Comments Saw Dr. Torres last week, had flu shot and Vit B12 shot. 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 Increase in blood pressure medications. Has had 2 iron infusions. Horrible SOB, muscle weakness, fatigue. Manual techniques and heat most helpful. Pain improved. Pain in mid back and IT band improved with PT PT-OP-J Posture/Palpation/Skin Start: 12/04/22 16:50 Freq: Status: Active Protocol: Document 12/05/22 09:03 [facility] (Rec: 12/05/22 10:26 [facility] [id number]) Posture Evaluation Position Sitting Head/C-Spine Posture Forward Head T-Spine Posture Increased Kyphosis L-Spine Posture Flattened Shoulder Posture (L) Rounded,(R) Rounded Scapula Posture (L) Protracted,(R) Protracted Arm Posture (L) Internally Rotated,(R) Internally Rotated Palpation Assessment Location mid thoracic Palpation Location luisa T7-T10 Palpation Findings Soft Tissue Tightness, Tenderness right IT band Palpation Findings Soft Tissue Tightness,Muscle Guarding,Tenderness PT-OP-K Range of Motion Start: 12/04/22 16:50 Freq: Status: Active Protocol: Document 12/05/22 09:03 [facility] (Rec: 12/05/22 10:26 [facility] [id number]) Cervical Spine Range of Motion Cervical Spine Active ROM Limitations Soft Tissue Tightness,Pain Comments mod dec all motions Lumbar Spine Range of Motion Lumbar Spine Active ROM Limitations Soft Tissue Tightness,Bony Restriction,Pain Comments mod dec luisa Shoulder Goniometric Range of Motion Shoulder luisa Shoulder ROM WFL Yes Shoulder ROM Limitations Shoulder ROM Limitations Soft Tissue Tightness Comments mod decrease luisa Hip Goniometric Range of Motion Hip Right Hip ROM WFL No Comments mod dec IT band flex with TTP Left Hip ROM WFL Yes Hip ROM Limitations Hip ROM Limitations Soft Tissue Tightness,Muscle Weakness,Pain PT-OP-T Assessment and Plan Start: 12/04/22 16:50 Freq: Status: Active Protocol: Document 10/15/23 09:59 [facility] (Rec: 10/15/23 10:00 [facility] [id number]) Physical Therapy Plan Discharge Physical Therapy Discharge Reasons No Longer Attending PT
== END 2023-10-18 10:02 | disposition home or self-care (01) ==
LOC: PHYS 08:45
PROVIDERS: Absent Provider Family Medicine; Family Provider Family Medicine; PCP Family Medicine; Referring Provider Family Medicine; Visit Provider Family Medicine
DX: M54.6 Pain in thoracic spine (principal); G89.29 Other chronic pain; R29.3 Abnormal posture; R53.1 Weakness
CPT/HCPCS: 97010; 97035; 97110; 97116; 97140; 97162; 97535

== ENCOUNTER → 2023-08-23 14:04 | Outpatient (CLI) | payer MEDICARE, BC, SELFPAY ==
[2022-12-27 15:13] VITALS: BMI 42.5
--- NOTE | 2023-08-23 14:06 | DI.RAD.S_ITS ---
PROCEDURE: XR HIP W PEL IF DONE RT 2V INDICATIONS: right hip pain TECHNIQUE: AP pelvis with lateral view(s) of the right hip(s). COMPARISON: None. FINDINGS: Bones: Mild femoroacetabular joint space loss and slight subcortical cystic changes and superior acetabular sclerosis. This is similar to the contralateral side. No fractures or dislocation. No suspicious bone lesion. Minor degenerative joint space narrowing and sclerosis at both appear sacroiliac joints. Soft tissues: The visualized bowel gas pattern is normal. No suspicious soft tissue calcifications. IMPRESSION: 1. 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 Dictated by: Poornima Banks M.D. on 08/23/2023 at 23:23 Approved by: Poornima Banks M.D. on 08/23/2023 at 23:26
== END ==
PROVIDERS: Family Provider Family Medicine; PCP Family Medicine; Referring Provider Family Medicine; Visit Provider Family Medicine
DX: M25.551 Pain in right hip (principal); M16.0 Bilateral primary osteoarthritis of hip
CPT/HCPCS: 73502

== ENCOUNTER → 2024-01-09 13:50 | Outpatient (CLI) | payer MEDICARE, BC, SELFPAY ==
[2023-11-14 08:38] VITALS: BMI 42.5
--- NOTE | 2024-01-09 13:54 | DI.RAD.S_ITS ---
PROCEDURE: XR THORACIC SPINE 3V INDICATIONS: Compression FX TECHNIQUE: 3 views of the thoracic spine were acquired. COMPARISON: [facility], CR, XR THORACIC SPINE 3V, 08/02/2018, 8:13. FINDINGS: Bones: No fractures or dislocations. No suspicious bony lesions. Mild multilevel degenerative disc height loss and endplate spur formation. 12 pairs of ribs are noted, and appear intact where visualized. Soft tissues: No paravertebral stripe thickening. Atherosclerotic calcification. IMPRESSION: No acute bony abnormality. Mild thoracic spine disc degeneration. Dictated by: Poornima Banks M.D. on 01/09/2024 at 17:44 Approved by: Poornima Banks M.D. on 01/09/2024 at 17:46
--- NOTE | 2024-01-09 13:54 | DI.RAD.S_ITS ---
PROCEDURE: XR LUMBAR SPINE 2-3V INDICATIONS: Compression FX TECHNIQUE: 3 views of the lumbar spine were acquired. COMPARISON: [facility], , L-SPINE 2-3 VIEWS, 10/11/2015, 17:26. FINDINGS: Bones: 5 [id number]-[id number] vertebrae are present. Grade 1 retrolisthesis L1-2, L2-3, L3-4. Grade 1 anterolisthesis L4-5, all stable compared to prior exams. Moderate disc height loss at every level. Facet sclerosis from L4 through S1. No compression fracture seen.. No suspicious bony lesions. Soft tissues: Overlying bowel gas pattern is normal. No suspicious soft tissue calcifications. Moderate calcific atherosclerosis of the abdominal aorta. Surgical clips in the right upper quadrant. IMPRESSION: No evidence of acute compression fracture. Multilevel spondylosis and spondylolisthesis, fairly stable compared to the prior exam. Dictated by: Poornima Banks M.D. on 01/09/2024 at 17:42 Approved by: Poornima Banks M.D. on 01/09/2024 at 17:44
== END ==
LOC: RAD 13:52
PROVIDERS: Family Provider Family Medicine; PCP Family Medicine; Referring Provider Family Medicine; Visit Provider Family Medicine
DX: M47.26 Other spondylosis with radiculopathy, lumbar region (principal); M43.16 Spondylolisthesis, lumbar region; M51.34 Other intervertebral disc degeneration, thoracic region; S32.020A Wedge compression fracture of second lumbar vertebra, initial encounter for closed fracture; S22.070A Wedge compression fracture of T9-T10 vertebra, initial encounter for closed fracture; G89.29 Other chronic pain
CPT/HCPCS: 72072; 72100

== ENCOUNTER 2024-03-10 14:23 | Emergency (ER) | payer MEDICARE, BC, SELFPAY ==
[2023-11-14 08:38] VITALS: BMI 42.5
[2024-03-10 14:30] VITALS: BP 209/90; PULSE 80; RESP 16; TEMP 37; O2SAT 98; BMI 41.5
--- NOTE | 2024-03-10 15:15 | DI.CT.S_ITS ---
PROCEDURE: CT HEAD/BRAIN WO CON INDICATIONS: Hit head on thinners TECHNIQUE: Noncontrast 4.5 mm thick angled axial sections acquired from the foramen magnum to the vertex, with coronal and sagittal reformats. For radiation dose reduction, the following was used: automated exposure control, adjustment of mA and/or kV according to patient size. COMPARISON: [facility], CT, CT HEAD/BRAIN WO CON, 05/29/2023, 10:22. FINDINGS: Image quality: Diagnostic. CSF spaces: Basal cisterns are patent. No extra-axial fluid collections. The ventricles are symmetric in size and shape. Brain: No intracranial bleeds or masses. There is cerebral volume loss for age, with resultant ventricular and sulcal prominence. There are periventricular and deep white matter chronic small vessel ischemic changes. There is intracranial internal carotid artery atherosclerosis. Skull and face: Calvarium and visualized facial bones appear intact, without suspicious lesions. Sinuses: Visualized sinuses and mastoids are clear. IMPRESSION: No acute intracranial pathology. Dictated by: Benji Miller M.D. on 03/10/2024 at 16:04 Approved by: Benji Miller M.D. on 03/10/2024 at 16:05
--- NOTE | 2024-03-10 16:36 | ED.HEATRA ---
HPI - Head Injury <Allan De Luna PA-C - Last Filed: 03/10/24 17:37> General Chief complaint: Head Injury Stated complaint: hard hit to the head, on blood thinners Time Seen by Provider: 03/10/24 16:27 Source: patient Mode of arrival: Family Vehicle History of Present Illness HPI Narrative: 74-year-old female presents to the ED status post a head injury sustained just prior to arrival. Patient was working on a [employer] chest, when the lid of the chest fell and injured the top, right side of her head. No loss of consciousness. Patient is on blood thinners, taking Eliquis and Plavix for AFib and cardiac stents. Patient complains of pain at the site of the injury and mild nausea but no other symptoms. Denies vomiting, dizziness. Related Data Home Medications Medication Instructions Recorded Confirmed isosorbide mononitrate 60 mg 60 mg PO BID 03/08/19 01/19/24 tablet,extended release 24 hr clopidogrel 75 mg tablet (Plavix) 75 mg PO DAILY 11/28/19 01/19/24 furosemide 20 mg tablet 20 mg PO DAILY 01/10/21 01/19/24 carvedilol 25 mg tablet 50 mg PO QPM 06/01/21 01/19/24 carvedilol 25 mg tablet (Coreg) 37.5 mg PO QAM 06/01/21 01/19/24 ranolazine 500 mg tablet,extended 500 mg PO BID 09/20/21 01/19/24 release,12 hr (Ranexa) apixaban 5 mg tablet (Eliquis) 5 mg PO BID 03/23/22 01/19/24 ResMed AirCurve 04/20/22 01/19/24 nitroglycerin 0.4 mg sublingual 0 mg sublingual 05/09/23 01/19/24 tablet (Nitrostat) prazosin 1 mg capsule 0 mg PO 05/09/23 01/19/24 amoxicillin 500 mg capsule 1,000 mg PO BID 12/24/23 01/19/24 hydralazine 100 mg tablet 100 mg PO 4XD 12/24/23 01/19/24 Previous Rx's Medication Instructions Recorded albuterol sulfate 90 mcg/actuation 2 puff inhalation Q4HP PRN 05/23/19 aerosol inhaler (Ventolin HFA) shortness of breath or wheezing #1 inh albuterol sulfate 90 mcg/actuation 2 puff inhalation Q6H PRN 09/08/22 aerosol inhaler shortness of breath or wheezing #8.5 grams cyanocobalamin (vitamin B-12) 1,000 mcg SUBCUT QMONTH #1 mL 08/31/23 1,000 mcg/mL injection solution acetylcysteine 200 mg/mL (20 %) 1 ml inhalation Q4H PRN cough #30 11/13/23 solution mL nebulizers (Aeroneb Go Nebulizer) #1 ea 11/13/23 tizanidine 4 mg tablet 4 mg PO BEDTIME PRN muscle 01/15/24 spasticity #30 tabs Diovan 160 mg tablet (valsartan) 160 mg PO BID #180 tabs 02/29/24 Allergies Allergy/AdvReac Type Severity Reaction Status Date / Time benazepril [From Lotensin] Allergy Severe angioadema Verified 01/19/24 14:00 adhesive Allergy Mild Verified 01/19/24 14:00 Sulfa (Sulfonamide Allergy Unknown Verified 01/19/24 14:00 Antibiotics) [SULFA (SULFONAMIDE ANTIBIOTICS)] Haemophilus B polysaccharide AdvReac Intermediate YRS AGO Verified 01/19/24 14:00 conj w CAUSED [From TriHIBit] FEVER, RECENTLY MOUTH SORES Beta-Blockers AdvReac Mild LOW Verified 01/19/24 14:00 (Beta-Adrenergic Bloc TOLERANCE - HR IN 30s - HOSPITALIZED diazepam AdvReac Mild OPPOSITE Verified 01/19/24 14:00 EFFECT, BECAME HYPER/INCOMPLIANT--O.K. WITH VERSED diphtheria,pertussis AdvReac Mild YRS AGO Verified 01/19/24 14:00 (acellular),te CAUSED [From TriHIBit] FEVER, RECENTLY MOUTH SORES pseudoephedrine AdvReac Mild INCREASED Verified 01/19/24 14:00 HEART RATE Review of Systems <Allan De Luna PA-C - Last Filed: 03/10/24 17:37> Constitutional Constitutional: Denies chills, Denies fatigue, Denies fever(s), Denies frequent falls, Reports headache(s), Denies lethargy and Denies weakness Eyes Eyes: Denies change in vision, Denies eye discharge, Denies irritation and Denies loss of vision ENT Ears, Nose, Mouth, and Throat: Denies change in voice, Denies dizziness, Reports headache(s), Denies neck pain, Denies sore throat and Denies throat swelling Cardiovascular Cardiovascular: Denies chest pain, Denies irregular heart rhythm, Denies lightheadedness, Denies palpitations, Denies dyspnea, Denies dyspnea on exertion and Denies orthopnea Respiratory Respiratory: Denies cough, Denies dyspnea, Denies dyspnea on exertion and Denies wheezing Gastrointestinal Gastrointestinal: Denies abdominal pain, Denies change in bowel habits, Denies diarrhea, Reports nausea and Denies vomiting Musculoskeletal Musculoskeletal: Denies neck pain and Denies numbness Integumentary/Breasts Skin/Breast: Denies pruritus, Denies erythema, Denies rash and Denies wounds Neurologic Neurologic: Denies behavioral changes, Denies confusion, Denies dizziness, Denies frequent falls, Reports headache(s), Denies loss of vision, Denies numbness and Denies weakness Psychiatric Psychiatric: Denies anxiety, Denies behavioral changes, Denies confusion, Denies depression, Denies homicidal ideation and Denies suicidal ideation Endocrine Endocrine: Denies fatigue, Denies flushing and Denies palpitations Hematologic/Lymphatic Hematologic/Lymphatic: Denies easy bruising Allergic/Immunologic Allergic/Immunologic: Denies urticaria, Denies throat swelling and Denies wheezing Patient History <Allan De Luna PA-C - Last Filed: 03/10/24 17:37> Medical History (Updated 03/10/24 @ 16:47 by Allan De Luna PA-C) Hypertensive urgency History of UT (myocardial infarction) (~2020) History of CVA (cerebrovascular accident) Concussion COVID-19 Sleep apnea Shoulder pain Diastolic heart failure Atrial fibrillation Iron deficiency anemia Ocular migraine History of stent insertion of renal artery Bone lesion Left renal artery stenosis (~11/22/20) 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) Parumbilical hernia (~11/22/20) Hiatal hernia (~11/22/20) Osteopenia of femoral neck, bilateral (~02/2019) Macular degeneration, age related, nonexudative Dyslipidemia Thyroid nodule Proteus enteritis (~2018) EBV infection (~1962) Coccidioidomycosis (~1962) Heterozygous MTHFR mutation [id number] Renal artery atherosclerosis (12/30/11) Systemic lupus erythematosus Atypical nevus of abdominal wall Lipoma Angioedema Statin intolerance Elevated coronary artery calcium score Prinzmetal's angina (1975) Hypertension CAD (coronary artery disease) (1979) Shingles (2016) Asthma History of recurrent pneumonia Severe obstructive sleep apnea-hypopnea syndrome (10/22/15) Surgical History History of melanoma excision Anesthesia H/O colonoscopy with polypectomy (~04/2020) History of tonsillectomy History of cholecystectomy Stented coronary artery (2013) History of arthroplasty (01/20/13) History of arthroplasty (12/09/12) History of cataract removal with insertion of prosthetic lens (2014) Family History Father Lung cancer Hypertension Mother Parkinson's disease Breast cancer CAD (coronary artery disease) Brother History of heart disease Social History marital status: household members: friend(s) lives independently: No caregiver/support person: No pets and animals: Yes Smoking Status: Never smoker Smoking Status: Never smoker alcohol intake frequency: holidays/special occasions only Substance Use Type: does not use Exam <Allan De Luna PA-C - Last Filed: 03/10/24 17:37> Narrative Exam Narrative: Const General:?cooperative, healthy appearing and comfortable [facility] Head:?normal to inspection, there is mild tenderness to palpation of the top right side of the head. Skin is intact. No skull depressions Ears:?hearing grossly normal bilaterally Nose:?external nose normal Face and sinus:?normal facial exam and sinuses nontender Mouth:?oral mucosae normal Throat:?posterior oropharynx normal Eyes General:?appearance normal, both eyes and all related structures Neck Neck:?normal visual inspection and no lymphadenopathy noted Resp Effort & Inspection:?normal respiratory effort Auscultation:?clear to auscultation bilaterally Cardio Rate:?regular rate Rhythm:?regular rhythm Neuro General:?patient alert, patient awake and patient oriented x3 Initial Vital Signs Initial Vital Signs: Vital Signs Temperature 98.6 F 03/10/24 14:30 Pulse Rate 80 03/10/24 14:30 Respiratory Rate 16 03/10/24 14:30 Blood Pressure 209/90 H 03/10/24 14:30 Pulse Oximetry 98 03/10/24 14:30 Oxygen Delivery Method Room Air 03/10/24 14:30 <Alfonzo Burnham MD - Last Filed: 03/14/24 11:40> Initial Vital Signs Initial Vital Signs: Vital Signs Temperature 98.6 F 03/10/24 14:30 Pulse Rate 80 03/10/24 14:30 Respiratory Rate 16 03/10/24 14:30 Blood Pressure 209/90 H 03/10/24 14:30 Pulse Oximetry 98 03/10/24 14:30 Oxygen Delivery Method Room Air 03/10/24 14:30 Course <Allan De Luna PA-C - Last Filed: 03/10/24 17:37> Orders Ordered: ED Orders 03/10/24 15:15 CT head/brain wo con Stat Vital Signs Vital signs: Vital Signs - 8 hr 03/10/24 14:30 03/10/24 17:00 Temperature 98.6 F Pulse Rate 80 66 Respiratory Rate 16 12 Blood Pressure 209/90 H 204/88 H Pulse Oximetry 98 99 Oxygen Delivery Method Room Air Room Air <Alfonzo Burnham MD - Last Filed: 03/14/24 11:40> Orders Ordered: ED Orders 03/10/24 15:15 CT head/brain wo con Stat Vital Signs Vital signs: Vital Signs - 8 hr 03/10/24 14:30 03/10/24 17:00 Temperature 98.6 F Pulse Rate 80 66 Respiratory Rate 16 12 Blood Pressure 209/90 H 204/88 H Pulse Oximetry 98 99 Oxygen Delivery Method Room Air Room Air MDM - Head Injury <Allan De Luna PA-C - Last Filed: 03/10/24 17:37> MDM Narrative Medical decision making narrative: 74-year-old female presents to the ED status post a head injury sustained just prior to arrival. Patient declined pain and nausea medication. CT head was obtained which shows no acute intracranial processes. Counseled patient on possible concussive symptoms that she might experience. Recommend Tylenol for pain. Recommend follow-up with PCP as soon as possible. ED return precautions discussed with patient. Patient verbalized understanding. Medical records reviewed: Yes Discharge Plan Departure Patient Disposition: Home Clinical Impression: Head injury Qualifiers: Encounter type: initial encounter Qualified Code(s): S09.90XA - Unspecified injury of head, initial encounter Instructions: DI for Closed Head Injury Activity Restrictions/Additional Instructions: You were evaluated in the ED today for a head injury. Your CT scan was normal. It is possible that you might experience some signs of a concussion which include a headache, nausea, fatigue, sleepiness, depression, agitation. It is advised that you exercise both physical rest and cognitive rest which includes rest from digital screens and books. Please follow-up with your PCP as soon as possible. You may take Tylenol for pain. Return to the ED if you have worsening symptoms, persistent vomiting. Prescriptions: No Action ranolazine [Ranexa] 500 mg tablet extended release 12 hr 500 mg PO BID valsartan [Diovan] 160 mg tablet 160 mg PO BID Qty: 180 3RF isosorbide mononitrate 60 mg tablet extended release 24 hr 60 mg PO BID Patient Comments: 120 mg qam, 30 mg qpm PO DAILY; albuterol sulfate 90 mcg/actuation HFA aerosol inhaler 2 puff inhalation Q6H PRN (Reason: shortness of breath or wheezing) Qty: 8.5 0RF acetylcysteine 200 mg/mL (20 %) solution 1 ml inhalation Q4H PRN (Reason: cough) Qty: 30 1RF Rx Instructions: nebulize 1mL every 4 hours as needed (DME) nebulizers [Aeroneb Go Nebulizer] Misc See Rx Instructions .Route Qty: 1 0RF Rx Instructions: As directed tizanidine 4 mg tablet 4 mg PO BEDTIME PRN (Reason: muscle spasticity) Qty: 30 0RF albuterol sulfate [Ventolin HFA] 90 mcg/actuation HFA aerosol inhaler 2 puff inhalation Q4HP PRN (Reason: shortness of breath or wheezing) Qty: 1 0RF clopidogrel [Plavix] 75 mg tablet 75 mg PO DAILY furosemide 20 mg tablet 20 mg PO DAILY nitroglycerin [Nitrostat] 0.4 mg tablet, sublingual 0 mg sublingual prazosin 1 mg capsule 0 mg PO cyanocobalamin (vitamin B-12) 1,000 mcg/mL solution 1,000 mcg SUBCUT QMONTH Qty: 1 12RF amoxicillin 500 mg capsule 1,000 mg PO BID hydralazine 100 mg tablet 100 mg PO 4XD Eliquis 5 mg Tablet 5 mg PO BID carvedilol [Coreg] 25 mg tablet 37.5 mg PO QAM carvedilol 25 mg tablet 50 mg PO QPM (DME) ResMed AirCurve See Rx Instructions .Route .MEDSUPPLY Rx Instructions: BIPAP IPAP: 14 EPAP: 5 PS: 4 DME: [employer] Referrals: La Torres DO [Primary Care Provider] - Stand Alone Forms: Patient Portal/API ED Sign-out <Alfonzo Burnham MD - Last Filed: 03/14/24 11:40> Cosign ED Attending Isael Attestation: I was immediately available in the department for consultation. ?This documentation has been reviewed and I agree with assessment and plan. Supervised by Alfonzo Burnham MD
[2024-03-10 17:00] VITALS: BP 204/88; PULSE 66; RESP 12; O2SAT 99
== END 2024-03-10 17:00 | disposition home or self-care (01) ==
PROVIDERS: Emergency Provider Student in an Organized Health Care Education/Training Program; Family Provider Family Medicine; PCP Family Medicine
DX: S09.90XA Unspecified injury of head, initial encounter (principal); W22.8XXA Striking against or struck by other objects, initial encounter; Z79.01 Long term (current) use of anticoagulants
CPT/HCPCS: 70450; 99281; 99284

== ENCOUNTER 2024-05-04 22:35 | Emergency (ER) | payer MEDICARE, BC, SELFPAY ==
[2023-11-14 08:38] VITALS: BMI 42.5
[2024-05-04] VITALS (8 sets, daily range): BP systolic 168–188; BP diastolic 71–81; PULSE 71–75; RESP 10–25; O2SAT 94–98; BMI 45.6
--- NOTE | 2024-05-04 22:36 | DI.RAD.S_ITS ---
PROCEDURE: XR CHEST 1V INDICATIONS: chest pain TECHNIQUE: One view of the chest was acquired. COMPARISON: [facility], CR, XR CHEST 1V, 12/07/2022, 7:44. [facility], CR, XR CHEST 1V, 05/10/2022, 1:39. FINDINGS: Surgical changes and devices: None. Lungs and pleura: Possible suprahilar opacity. Mediastinum: Mediastinal contours appear normal. Heart size is normal. Bones and chest wall: No suspicious bony lesions. Overlying soft tissues appear unremarkable. IMPRESSION: Possible suprahilar opacity. Differential includes infection, malignancy or more likely artifact. Consider outpatient low-dose chest CT for confirmation. Dictated by: Kenrick Whittington M.D. on 05/04/2024 at 23:21 Approved by: Kenrick Whittington M.D. on 05/04/2024 at 23:22
--- NOTE | 2024-05-04 22:44 | EKG_ITS ---
[place] [id number] [place] [id number] Test Date: 2024-05-04 Pat Name: Laila Nino Department: [facility] Room: Gender: Female [employer]: BETH : 1950 Requested By: Order Number: [id number] Reading MD: Rashaad Schuster MD Measurements Intervals Rule Rate: 76 P: 62 [place]: 160 QRS: 8 QRSD: 98 T: 36 QT: 366 QTc: 411 Interpretive Statements Sinus rhythm with premature supraventricular complexes Electronically Signed On 05-05-2024 8:19:26 PDT by Rashaad Schuster MD
--- NOTE | 2024-05-04 22:58 | ED_ITS ---
HPI - Chest Pain General Chief Complaint: Chest Pain Stated Complaint: chest pain Time Seen by Provider: 05/04/24 22:37 Source: patient Mode of arrival: Ambulatory Limitations: no limitations History of Present Illness HPI narrative: 74-year-old female with history of known CAD, prior LAD stents x3 in [place] about 10 years ago, had single-vessel RCA stent placed November [address] Nguyen at [facility], which was her last coronary vessel intervention, believes that she had cardiac stress testing about 1 year and a half ago, now with back pain and central chest discomfort typical for previous heart anginal pains, onset at rest 630 pm tonight, no associated diaphoresis, no associated nausea or vomiting, not worse with changes in position, not radiating to her jaw or arms, no associated shortness of breath. She took own supply sublingual nitroglycerin x4 doses, decreased discomfort chest and back but not completely resolved. No injury or trauma new activities. No cough or shortness of breath. She has not recall history of blood clots to the legs or to the lungs, no leg pain or swelling symptoms. She is taking Eliquis as well as Plavix anticoagulation, denies recent missed doses. Related Data Home Medications Medication Instructions Recorded Confirmed isosorbide mononitrate 60 mg 60 mg PO BID 03/08/19 04/04/24 tablet,extended release 24 hr clopidogrel 75 mg tablet (Plavix) 75 mg PO DAILY 11/28/19 04/04/24 furosemide 20 mg tablet 20 mg PO DAILY 01/10/21 04/04/24 carvedilol 25 mg tablet 50 mg PO QPM 06/01/21 04/04/24 ranolazine 500 mg tablet,extended 500 mg PO BID 09/20/21 04/04/24 release,12 hr (Ranexa) ResMed AirCurve 04/20/22 04/04/24 nitroglycerin 0.4 mg sublingual 0 mg sublingual 05/09/23 04/04/24 tablet (Nitrostat) hydralazine 100 mg tablet 100 mg PO 4XD 12/24/23 04/04/24 prazosin 1 mg capsule 2 mg PO 04/02/24 04/04/24 Previous Rx's Medication Instructions Recorded albuterol sulfate 90 mcg/actuation 2 puff inhalation Q6H PRN 09/08/22 aerosol inhaler shortness of breath or wheezing #8.5 grams cyanocobalamin (vitamin B-12) 1,000 mcg SUBCUT QMONTH #1 mL 08/31/23 1,000 mcg/mL injection solution Diovan 160 mg tablet (valsartan) 160 mg PO BID #180 tabs 02/29/24 apixaban 2.5 mg tablet 2.5 mg PO BID #180 tabs 04/02/24 progesterone micronized 200 mg 200 mg PO BEDTIME #90 caps 04/04/24 capsule (Prometrium) omeprazole 20 mg capsule,delayed 20 mg PO DAILY upper abdominal 05/05/24 release pain 30 days #30 caps Allergies Allergy/AdvReac Type Severity Reaction Status Date / Time benazepril [From Lotensin] Allergy Severe angioadema Verified 04/04/24 09:10 adhesive Allergy Mild Verified 04/04/24 09:10 Sulfa (Sulfonamide Allergy Unknown Verified 04/04/24 09:10 Antibiotics) [SULFA (SULFONAMIDE ANTIBIOTICS)] Haemophilus B polysaccharide AdvReac Intermediate YRS AGO Verified 04/04/24 09:10 conj w CAUSED [From TriHIBit] FEVER, RECENTLY MOUTH SORES Beta-Blockers AdvReac Mild LOW Verified 04/04/24 09:10 (Beta-Adrenergic Bloc TOLERANCE - HR IN 30s - HOSPITALIZED diazepam AdvReac Mild OPPOSITE Verified 04/04/24 09:10 EFFECT, BECAME HYPER/INCOMPLIANT--O.K. WITH VERSED diphtheria,pertussis AdvReac Mild YRS AGO Verified 04/04/24 09:10 (acellular),te CAUSED [From TriHIBit] FEVER, RECENTLY MOUTH SORES pseudoephedrine AdvReac Mild INCREASED Verified 04/04/24 09:10 HEART RATE Patient History Medical History (Updated 05/05/24 @ 02:20 by Germain Boswell MD) Hypertensive urgency History of GA (myocardial infarction) (~2020) History of CVA (cerebrovascular accident) Concussion COVID-19 Sleep apnea Shoulder pain Diastolic heart failure Atrial fibrillation Iron deficiency anemia Ocular migraine History of stent insertion of renal artery Bone lesion Left renal artery stenosis (~11/22/20) 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) Parumbilical hernia (~11/22/20) Hiatal hernia (~11/22/20) Osteopenia of femoral neck, bilateral (~02/2019) Macular degeneration, age related, nonexudative Dyslipidemia Thyroid nodule Proteus enteritis (~2018) EBV infection (~1962) Coccidioidomycosis (~1962) Heterozygous MTHFR mutation C677T Renal artery atherosclerosis (09/22/11) Systemic lupus erythematosus Atypical nevus of abdominal wall Lipoma Angioedema Statin intolerance Elevated coronary artery calcium score Prinzmetal's angina (1975) Hypertension CAD (coronary artery disease) (1979) Shingles (2016) Asthma History of recurrent pneumonia Severe obstructive sleep apnea-hypopnea syndrome (10/22/15) Surgical History History of melanoma excision Anesthesia H/O colonoscopy with polypectomy (~04/2020) History of tonsillectomy History of cholecystectomy Stented coronary artery (2013) History of arthroplasty (01/20/13) History of arthroplasty (12/09/12) History of cataract removal with insertion of prosthetic lens (2014) Family History Father Lung cancer Hypertension Mother Parkinson's disease Breast cancer CAD (coronary artery disease) Brother History of heart disease Social History marital status: household members: friend(s) lives independently: No caregiver/support person: No pets and animals: Yes Smoking Status: Never smoker Smoking Status: Never smoker alcohol intake frequency: holidays/special occasions only Substance Use Type: does not use Exam Narrative Exam Narrative: GENERAL: Well-developed patient, in mild distress. HEAD: Atraumatic. Normocephalic. EYES: Pupils equal round and reactive. Extraocular motions intact. No scleral icterus. No injection or drainage. ENT: Nose without bleeding, purulent drainage. Throat without erythema, tonsillar hypertrophy or exudate. Airway patent. NECK: Trachea midline. Non tender CARDIOVASCULAR: Regular rate and rhythm without murmurs, gallops, or rubs. RESPIRATORY: Clear to auscultation. Breath sounds equal bilaterally. No wheezes, rales, or rhonchi. GASTROINTESTINAL: Abdomen soft, non-tender, nondistended. EXTREMITIES: No edema or joint tenderness. BACK: Nontender without deformity or crepitance. No flank tenderness. NEURO: AOx3. SKIN: No rash or erythema of visible areas Initial Vital Signs Initial Vital Signs: Vital Signs Pulse Rate 75 05/04/24 22:40 Respiratory Rate 18 05/04/24 22:40 Blood Pressure 183/81 H 05/04/24 22:40 Pulse Oximetry 98 05/04/24 22:40 Oxygen Delivery Method Room Air 05/04/24 22:40 Course Orders Ordered: ED Orders 05/04/24 22:36 XR chest 1V Stat EKG-12 Lead Stat 05/04/24 22:57 Complete Blood Count AUTO DIFF Stat Comprehensive Metabolic Panel Stat Lipase Stat Magnesium Stat NT-proBNP (BNP-Adult 18+) Stat PTT Partial Thromboplastin [facility] Stat Prothrombin Time INR Stat Troponin & CK Cardiac Panel Stat 05/04/24 23:29 CT chest wo con Stat 05/05/24 01:00 Troponin I Stat Discontinued Medications Aspirin (Aspirin 81 Mg Chew Tab) 324 mg PO NOW ONE Stop: 05/04/24 22:37 Last Admin: 05/04/24 23:10 Dose: Not Given Documented By: Hydromorphone HCl (Hydromorphone 0.5 Mg Inj) 0.5 mg IV NOW ONE Stop: 05/04/24 23:26 Last Admin: 05/04/24 23:58 Dose: 0.5 mg Documented By: Pantoprazole Sodium (Pantoprazole 40 Mg Vial) 40 mg IV NOW ONE Stop: 05/04/24 23:16 Last Admin: 05/04/24 23:25 Dose: 40 mg Documented By: Vital Signs Vital signs: Vital Signs - 8 hr 05/04/24 22:40 05/04/24 23:00 05/04/24 23:02 Pulse Rate 75 71 Respiratory Rate 18 17 Blood Pressure 183/81 H 188/79 H Pulse Oximetry 98 98 Oxygen Delivery Method Room Air 05/04/24 23:02 05/04/24 23:10 05/04/24 23:10 Pulse Rate 73 74 Respiratory Rate 15 25 H Blood Pressure 181/78 H Pulse Oximetry 98 94 Oxygen Delivery Method Room Air 05/04/24 23:20 05/04/24 23:20 05/04/24 23:30 Pulse Rate 72 Respiratory Rate 19 Blood Pressure 176/71 H 168/72 H Pulse Oximetry 96 Oxygen Delivery Method 05/04/24 23:30 05/04/24 23:40 05/04/24 23:40 Pulse Rate 72 73 Respiratory Rate 17 18 Blood Pressure 175/74 H Pulse Oximetry 98 98 Oxygen Delivery Method 05/04/24 23:54 05/04/24 23:54 05/05/24 00:00 Pulse Rate 73 Respiratory Rate 10 L Blood Pressure 169/74 H 161/67 H Pulse Oximetry 97 Oxygen Delivery Method 05/05/24 00:00 05/05/24 00:30 05/05/24 00:30 Pulse Rate 72 69 Respiratory Rate 21 15 Blood Pressure 135/63 Pulse Oximetry 96 94 Oxygen Delivery Method 05/05/24 01:00 05/05/24 01:01 05/05/24 01:01 Pulse Rate 68 68 Respiratory Rate 19 20 Blood Pressure 113/49 L Pulse Oximetry 94 94 Oxygen Delivery Method 05/05/24 01:30 05/05/24 01:30 05/05/24 02:00 Pulse Rate 65 Respiratory Rate 17 Blood Pressure 112/54 L 136/65 Pulse Oximetry 93 Oxygen Delivery Method 05/05/24 02:00 Pulse Rate 64 Respiratory Rate 34 H Blood Pressure Pulse Oximetry 96 Oxygen Delivery Method Room Air MDM - Chest Pain Lab Data Attestation: I reviewed the patient's lab results. 05/04/24 22:57 05/04/24 22:57 Labs: Lab Results 05/04/24 05/05/24 Range/Units 22:57 01:00 WBC 5.8 (4.5-11.0) X10^3/uL RBC 3.63 L (4.0-5.2) X10^6/uL Hgb 10.4 L (12.0-16.0) g/dL Hct 31.1 L (36-46) % MCV 85.7 (80-100) fL MCH 28.6 (26-34) PG MCHC 33.4 (30-36) % RDW 14.6 (11.6-14.8) % Plt Count 203 (150-400) X10^3/uL Neut % (Auto) 72.3 (50-75) % Lymph % (Auto) 16.1 L (25-40) % Lamar % (Auto) 9.2 (3-14) % Eos % (Auto) 1.9 L (2-4) % Baso % (Auto) 0.5 (0-2) % Neut # (Auto) 4200 (4693-5118) /uL Lymph # (Auto) 900 L (1868-5711) /uL Lamar # (Auto) 500 (0-900) /uL Eos # (Auto) 100 (0-450) /uL Baso # (Auto) 0 (0-100) /uL PT 13.4 H (9.4-12.5) SECONDS INR 1.2 (0.9-1.3) APTT 41 H (25.1-36.5) SECONDS Sodium 139 (137-145) mmol/L Potassium 4.3 (3.4-5.1) mmol/L Chloride 109 H (98-107) mmol/L Carbon Dioxide 23 (22-32) mmol/L BUN 43 H (7-17) mg/dL Creatinine 1.59 H (0.52-1.04) mg/dL Estimated GFR 33 L (>60) mL/min BUN/Creatinine Ratio 27.0 H (6-22) Glucose 103 (80-110) mg/dL Calcium 8.9 (8.4-10.2) mg/dL Magnesium 2.2 (1.6-2.3) mg/dL Total Bilirubin 0.7 (0.2-1.3) mg/dL AST 21 (14-36) IU/L ALT 18 (<35) IU/L Alkaline Phosphatase 88 (38-126) U/L Total Creatine Kinase 72 (30-135) U/L Troponin I < 0.012 < 0.012 (0.01-0.034) ng/mL NT-Pro-B Natriuret Pep 604 H (<450) pg/mL Total Protein 6.8 (6.3-8.2) g/dL Albumin 3.9 (3.5-5.0) g/dL Globulin 2.9 (1.7-4.1) g/dL Albumin/Globulin Ratio 1.3 (1.0-2.8) Lipase 248 (23-300) U/L Imaging Data Chest x-ray: Radiologist's Impression: [address] [address] XRay Report Signed Patient: Laila Nino MR#: [id number] : 1950 Acct:[id number] Age/Sex: 74 / F Date of Service: 05/04/24 Loc: ED Accession Number: [id number] Procedure: XR chest 1V Ordering Provider: Germain Boswell MD PROCEDURE: XR CHEST 1V INDICATIONS: chest pain TECHNIQUE: One view of the chest was acquired. COMPARISON: [facility], CR, XR CHEST 1V, 12/07/2022, 7:44. [facility], CR, XR CHEST 1V, 05/10/2022, 1:39. FINDINGS: Surgical changes and devices: None. Lungs and pleura: Possible suprahilar opacity. Mediastinum: Mediastinal contours appear normal. Heart size is normal. Bones and chest wall: No suspicious bony lesions. Overlying soft tissues appear unremarkable. IMPRESSION: Possible suprahilar opacity. Differential includes infection, malignancy or more likely artifact. Consider outpatient low-dose chest CT for confirmation. Dictated by: Kenrick Whittington M.D. on 05/04/2024 at 23:21 Approved by: Kenrick Whittington M.D. on 05/04/2024 at 23:22 ECG Data Attestation: I personally reviewed and interpreted this ECG as follows: Interpretation: Normal sinus rhythm with rate of 76, no obvious ST segment elevation or depression changes. LA 160, QRS 98, QTC 411. MDM Narrative Medical decision making narrative: 74-year-old female with known CAD, prior coronary vessel stents, last coronary interventions 2019 with single RCA lesion, believes her last stress test was 1- 1/2 years ago, now with a few hours duration of pain in the middle of her back more so than anterior mid precordial chest discomfort, typical of her previous anginal symptoms, partially responsive to self administered nitroglycerin. Screening EKG without obvious ischemic changes. Initial troponin negative. Chest x-ray unremarkable. She has some residual discomfort, allergy of tingling association with morphine, Dilaudid has worked in the past, IV Dilaudid dose versus residual discomfort symptoms. Also has history of hiatal hernia, we will add IV Protonix. Check interval troponin. Pain between her shoulder blades she believes his typical of her previous angina symptoms, consider aortic dissection or pulmonary embolus, she however has kidney disease, creatinine 1.59, GFR 33, she is reluctant to try any IV contrast, hold CT angiography at this time. History of hiatal hernia by her report, we will add IV Protonix. Pain improved after Dilaudid dose. Await interval troponin. Chest x-ray report, suspicious suprahilar lesion that could represent early infection or mass or artifact, CT imaging advised, noncontrast chest CT ordered. CT chest showed no mass or infiltrate, artifact likely was due to overlapping vascular structures, see radiology report. Moderate hiatal hernia also noted. Await interval repeat troponin. Interval repeat troponin also negative and unmeasurable. Consider angina, patient has stated that she has suspected small vessel disease in the past, taking Imdur 60 mg tablets twice daily, consider increasing the morning dose to 1-1/2 tablets 4 total daily dose increased from 120 mg to 150 mg for now. Also consider addition of omeprazole antacid medication, as she has hiatal hernia, and might have noncardiac component of her discomfort as well, with anterior and posterior radiation of symptoms. She is advised to contact her flight instructor later this morning during open hours, to coordinate further care, she might be requested to have repeat stress testing, or perhaps cardiac catheterization evaluation. Increased medical management and antacid therapy for now. Offered calling on-call Cardiology at [place], she declined this. She prefers to go home now on increased Imdur regimen, with the addition of omeprazole antacid trial. She will contact office of her flight instructor later this morning during open clinic hours. Home with family. Critical Care Time Critical Care Time Critical Care Time: Yes Total Critical Care Time: 31 Attestation: The high probability of a clinically significant, sudden or life threatening deterioration of the [cardiopulmonary, abdominopelvic, gastrointestinal] system(s) required my full and direct attention, intervention and personal management. The aggregate critical care time was [31] minutes. This time is in addition to time spent performing reported procedures but includes the following: [x] Data Review and interpretation [x] Patient assessment and monitoring of vital signs [x] Documentation [x] Medication orders and management Discharge Plan Departure Patient Disposition: Home Clinical Impression: Chest pain, Hiatal hernia Activity Restrictions/Additional Instructions: History of coronary artery disease, last coronary intervention 2020 with stenting, followed by [facility] flight instructor, new episode of chest pain tonight, response to nitroglycerin and then Dilaudid dose, EKG without obvious ischemic changes, serial blood tests not suggestive of heart attack (troponin blood tests were negative, in fact nonmeasurable initial and subsequent repeat blood testing). Chest x-ray report from Radiology described concern of possible hilar mass versus artifact versus early pneumonia changes. History of kidney disease, poor renal function, CT chest was performed without IV contrast due to renal concerns, to further evaluate the chest x-ray concerns, there was no acute changes on the CT noncontrast chest study. Contact your flight instructor later today Sunday during regular hours, for further follow up care plan. On CT scan you did have a rather large/moderate sized hiatal hernia, which could be a noncardiac cause of yourr back pain and anterior chest pain, consider antacid treatment for now while awaiting follow up Cardiology consultation. We also discussed an increased dosage in your antianginal oral nitrate medication Imdur, usually 60 mg tablets twice daily, consider increased morning dose to 1-1/2 tablets keep one table for evening dose, for a total daily dose of 150 mg increased from 120 mg. Prescription for omeprazole antacid sent to your pharmacy. You stated that you had a adequate supply of your Imdur. Contact your [facility] flight instructor during open regular hours later this morning. Return earlier to this/nearest emergency department for any change worsening symptoms or any concerns prior Prescriptions: New omeprazole 20 mg capsule,delayed release(DR/EC) 20 mg PO DAILY 30 Days Qty: 30 0RF No Action ranolazine [Ranexa] 500 mg tablet extended release 12 hr 500 mg PO BID valsartan [Diovan] 160 mg tablet 160 mg PO BID Qty: 180 3RF isosorbide mononitrate 60 mg tablet extended release 24 hr 60 mg PO BID Patient Comments: 120 mg qam, 30 mg qpm PO DAILY; albuterol sulfate 90 mcg/actuation HFA aerosol inhaler 2 puff inhalation Q6H PRN (Reason: shortness of breath or wheezing) Qty: 8.5 0RF apixaban 2.5 mg tablet 2.5 mg PO BID Qty: 180 0RF progesterone micronized [Prometrium] 200 mg capsule 200 mg PO BEDTIME Qty: 90 1RF clopidogrel [Plavix] 75 mg tablet 75 mg PO DAILY furosemide 20 mg tablet 20 mg PO DAILY nitroglycerin [Nitrostat] 0.4 mg tablet, sublingual 0 mg sublingual prazosin 1 mg capsule 2 mg PO Patient Comments: 2 at night and one in the morning cyanocobalamin (vitamin B-12) 1,000 mcg/mL solution 1,000 mcg SUBCUT QMONTH Qty: 1 12RF hydralazine 100 mg tablet 100 mg PO 4XD carvedilol 25 mg tablet 50 mg PO QPM (DME) ResMed AirCurve See Rx Instructions .Route .MEDSUPPLY Rx Instructions: BIPAP IPAP: 14 EPAP: 5 PS: 4 DME: [facility] Referrals: La Torres DO [Primary Care Provider] - Stand Alone Forms: Patient Portal/API
[2024-05-04 23:05] LABS: Add Manual Diff / Slide Review NO; Basophils Absolute Auto 0 /uL (0-100); Basophils Percent Auto 0.5 % (0-2); Eosinophils Absolute Auto 100 /uL (0-450); Eosinophils Percent Auto 1.9 % (2-4); Hematocrit 31.1 % (36-46); Hemoglobin 10.4 g/dL (12.0-16.0); Lymphocytes Absolute Auto 900 /uL (1100-4500); Lymphocytes Percent Auto 16.1 % (25-40); Mean Corpuscular HGB Conc 33.4 % (30-36); Mean Corpuscular Hemoglobin 28.6 PG (26-34); Mean Corpuscular Volume 85.7 fL (80-100); Monocytes Absolute Auto 500 /uL (0-900); Monocytes Percent Auto 9.2 % (3-14); Neutrophils Absolute Auto 4200 /uL (1500-7000); Neutrophils Percent Auto 72.3 % (50-75); Platelet Count 203 X10^3/uL (150-400); Red Blood Cell Count 3.63 X10^6/uL (4.0-5.2); Red Cell Distribution Width 14.6 % (11.6-14.8); White Blood Cell Count 5.8 X10^3/uL (4.5-11.0)
[2024-05-04 23:11] LABS: INR 1.2 (0.9-1.3); Prothrombin Time 13.4 SECONDS (9.4-12.5)
[2024-05-04 23:14] LABS: PTT Partial Thromboplastin Tim 41 SECONDS (25.1-36.5)
[2024-05-04 23:16] LABS: Alanine Aminotransferase 18 IU/L (<35); Albumin 3.9 g/dL (3.5-5.0); Albumin Globulin Ratio 1.3 (1.0-2.8); Alkaline Phosphatase 88 U/L (38-126); Aspartate Aminotransferase 21 IU/L (14-36); Bilirubin Total 0.7 mg/dL (0.2-1.3); Blood Urea Nitrogen 43 mg/dL (7-17); Calcium 8.9 mg/dL (8.4-10.2); Carbon Dioxide 23 mmol/L (22-32); Chloride 109 mmol/L (98-107); Creatine Kinase 72 U/L (30-135); Estimated Glomerular Filt Rate 33 mL/min (>60); Globulin 2.9 g/dL (1.7-4.1); Glucose 103 mg/dL (80-110); HEMOLYSIS < 15 (0-50); Lipase 248 U/L (23-300); Magnesium 2.2 mg/dL (1.6-2.3); Potassium 4.3 mmol/L (3.4-5.1); Sodium 139 mmol/L (137-145); Total Protein 6.8 g/dL (6.3-8.2)
[2024-05-04] MEDS: PANTOPRAZOLE 40 MG VIAL IV (23:25)
[2024-05-04 23:27] LABS: NT-proBNP (BNP-Adult 18+) 604 pg/mL (<450); Troponin I < 0.012 ng/mL (0.01-0.034)
--- NOTE | 2024-05-04 23:29 | DI.CT.S_ITS ---
PROCEDURE: CT CHEST WO CON INDICATIONS: hilar mass on CXR, GFR 33, noncontrast scan further evaluate TECHNIQUE: Noncontrast 2.0-2.5 mm thick sections acquired from the pulmonary apices to the posterior costophrenic angles. 7 mm thick axial MIP and 5 mm coronal and sagittal reformats were then acquired. For radiation dose reduction, the following was used: automated exposure control, adjustment of mA and/or kV according to patient size. COMPARISON: [facility], CT, CT CHEST HIGH RESOLUTION, 12/13/2015, 12:34. FINDINGS: Image quality: Diagnostic. Lower Neck: No enlarged lymph nodes. Thyroid: No thyroid nodules which require sonographic follow up, per consensus guidelines. Axillae: No enlarged lymph nodes. Chest Wall: Unremarkable. Bones: Unremarkable. Lungs and Pleura: No pneumothorax or pleural effusions. Stable 9 mm solid nodule in the central right upper lobe compared with 2016 (series 3, image 93), therefore statistically benign. Atelectasis in the lingula. Heart: Heart size is normal. No pericardial effusion. Three-vessel coronary artery calcifications. Thoracic Vessels: The aorta and pulmonary arteries demonstrate normal size. The right suprahilar mass corresponds to superimposed right brachiocephalic vasculature. Mediastinum and Julia: No enlarged lymph nodes. Esophagus: No wall thickening. Moderate hiatal hernia. Upper Abdomen: Hepatic cyst. Cholecystectomy. IMPRESSION: Previously described suprahilar mass corresponds to 0 artifact superimposed vessels within the suprahilar region. Moderate hiatal hernia. Three-vessel coronary artery calcifications. Fleischner Society criteria for SOLID lung nodule followup. Nodule size (mm)Low-risk patientHigh-risk patient<6 (single or multiple)No routine followup.Optional CT at 12 months. 6-8 (single or multiple)CT at 6-12 months, then optional CT at 18-24 mo.CT at 6-12 months, then CT at 18-24 months. >8 (single)CT at 3 months, PET-CT, or biopsy. Same as for low-risk pts. >8 (multiple)CT at 3-6 months, then optional CT at 18-24 mo.CT at 3-6 months, then CT at 18-24 months. Fleischner Society criteria for SUB-SOLID lung nodule followup. Solitary pure ground-glass nodules<6 mm (ground glass or part solid)No followup needed. 6 mm or larger (ground glass)CT at 6-12 months to confirm persistence, then CT every 2 years until 5 years.6 mm or larger (part solid)CT at 3-6 months to confirm persistence, then annual CT until 5 years if unchanged and solid component remains <6 mm. Multiple sub-solid nodules<6 mmCT at 3-6 months, then CT consider at 2 & 4 years for high risk patients. [address] at 3-6 months. Subsequent management based on most suspicious lesions. Recommendations do not apply to lung cancer screening, patients with immunosuppression, or patients with known primary cancer. Dictated by: Kenrick Whittington M.D. on 05/05/2024 at 0:06 Approved by: Kenrick Whittington M.D. on 05/05/2024 at 0:10
[2024-05-04] MEDS: HYDROMORPHONE 0.5 MG INJ IV (23:58)
[2024-05-05] VITALS: BP 161/67; PULSE 72; RESP 21; O2SAT 96
[2024-05-05 00:30] VITALS: BP 135/63; PULSE 69; RESP 15; O2SAT 94
[2024-05-05 01:00] VITALS: PULSE 68; RESP 19; O2SAT 94
[2024-05-05 01:01] VITALS: BP 113/49; PULSE 68; RESP 20; O2SAT 94
[2024-05-05 01:30] VITALS: BP 112/54; PULSE 65; RESP 17; O2SAT 93
[2024-05-05 01:30] LABS: Troponin I < 0.012 ng/mL (0.01-0.034)
[2024-05-05 02:00] VITALS: BP 136/65; PULSE 64; RESP 34; O2SAT 96
== END 2024-05-05 02:30 | disposition home or self-care (01) ==
PROVIDERS: Emergency Provider Emergency Medicine; Family Provider Family Medicine; PCP Family Medicine
DX: K44.9 Diaphragmatic hernia without obstruction or gangrene (principal); R07.9 Chest pain, unspecified; I25.10 Atherosclerotic heart disease of native coronary artery without angina pectoris; Z95.5 Presence of coronary angioplasty implant and graft; Z86.79 Personal history of other diseases of the circulatory system
CPT/HCPCS: 36415; 71045; 71250; 80053; 82550; 83690; 83735; 83880; 84484; 85025; 85610; 85730; 93005; 93010; 96374; 96375; 99284; J1170; J2470

== ENCOUNTER → 2024-07-29 09:06 | Outpatient (CLI) | payer MEDICARE, BC, SELFPAY ==
[2023-11-14 08:38] VITALS: BMI 42.5
== END ==
LOC: LAB 09:07
PROVIDERS: PCP Family Medicine; Referring Provider Family Medicine; Visit Provider Family Medicine
DX: M62.81 Muscle weakness (generalized) (principal); E66.01 Morbid (severe) obesity due to excess calories; Z68.41 Body mass index [BMI] 40.0-44.9, adult
CPT/HCPCS: 36415; 86140

== ENCOUNTER 2024-09-01 09:45 | Outpatient (RCR) | payer MEDICARE, BC, SELFPAY ==
[2023-11-14 08:38] VITALS: BMI 42.5
--- NOTE | 2024-03-10 17:45 | PT.OIE ---
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 Hiatal hernia (~11/22/20) History of CVA (cerebrovascular accident) History of VA (myocardial infarction) (~2020) History of recurrent pneumonia History of stent insertion of renal artery Hypertension Hypertensive urgency Iron deficiency anemia Left renal artery stenosis (~11/22/20) Lipoma Macular degeneration, age related, nonexudative Ocular migraine Osteopenia of femoral neck, bilateral (~02/2019) Parumbilical hernia (~11/22/20) Prinzmetal's angina (1975) Proteus enteritis (~2018) Renal artery atherosclerosis (09/22/11) Severe obstructive sleep apnea-hypopnea syndrome (10/22/15) Shingles (2016) Shoulder pain Sleep apnea Statin intolerance Stenosis of celiac artery (~11/22/20) Systemic lupus erythematosus Thyroid nodule Past Surgical History (Last Reviewed 01/19/24 @ 14:28 by Lillie Jaimes PA-C) Anesthesia H/O colonoscopy with polypectomy (~04/2020) History of arthroplasty (12/09/12) History of arthroplasty (01/20/13) History of cataract removal with insertion of prosthetic lens (2014) History of cholecystectomy History of melanoma excision History of tonsillectomy Stented coronary artery (2013) Visit Care Team Role Provider Type La Torres DO Attending Provider Physician Family Provider Primary Care Provider Referring Provider Specialty: Medical Address: [address] [place] [address], [address], [place], [address] Email: [email or web address] Physical Therapy Initial Evaluation PT-OP-A Visit Information Start: 03/06/24 17:15 Freq: Status: Active Protocol: Document 03/10/24 13:00 [facility] (Rec: 03/10/24 13:49 [facility] [id number]) Out-Patient Physical Therapy Visit Information Visit Information Visit Type Initial Evaluation Visit Start Time 13:00 Visit Number 1 PT-OP-B Current Condition Start: 03/06/24 17:15 Freq: Status: Active Protocol: Document 03/10/24 13:00 [facility]AK (Rec: 03/10/24 13:49 [facility] [id number]) Current Condition History of Current Condition Onset Date December Current Complaints worsened back pain History of Current Condition Continues to struggle with long Covid; weakness and low energy. Couldn't continue with pulmonary rehab due to all medical issues. HIstory neck, thoracic, lumbar pain. States she was traveling and staying at friend's house, couldn't get out of friend's bed felt like my stomach was stuck to my spine. Difficulty getting in and out of friend's car. several times but pain worsened and has persisted. Only thing that helped was sitting on couch with semi firm pillow behind. Now very difficult still to get up. Can't lay on left side, still has stabbing pain right IT band. Back pain has now moved to her left buttock. Has had OMT treatments but had spasm in spine during one of her appts. can just bend over and has spasms, takes a long time to go away. Pain worst in am. Sleeps on right side but sometimes revs up IT band. A little better in am after walking a little bit. States she is cold a lot, tends to cross her arms across her chest due to this. Besides a few warm up exercises in bed before getting up states she is just doing her behavioral specialist and trying to walk as much as she can but very slow. Won't take pain medication. Prior Treatments and Tests x-ray: negative EMG: Personal Factors Other Personal Factors That May Effect long covid, poor activity Therapy/Recovery tolerance cardiac and pulmonary dysfunction obesity PT-OP-C Subjective Start: 03/06/24 17:15 Freq: Status: Active Protocol: Document 03/10/24 17:17 [facility] (Rec: 03/13/24 17:44 [facility] [id number]) OP-PT Pain Assessment Pain Assessment Grid Paper Pain Assessment Grid Completed Yes Location lumbar spine, left buttock and posterior thigh Intensity 8 Scale Used Numeric (0 - 10) Description Aching,Burning,Radiating,Sharp ,Stabbing,Throbbing,With Movement Pain Aggravating Factors Activity,Standing,Walking PT-OP-F Manual Assessment Start: 03/06/24 17:15 Freq: Status: Active Protocol: Document 03/10/24 17:17 [facility]AK (Rec: 03/13/24 17:44 [facility] [id number]) Manual Assessments Soft Tissue Assessment Soft Tissue Mobility Assessment tightnes lumbar paraspinals, left piriformis PT-OP-G Mobility & Gait Start: 03/06/24 17:15 Freq: Status: Active Protocol: Document 03/10/24 17:17 SAK (Rec: 03/13/24 17:44 [facility] [id number]) OP Mobility Evaluation Bed Mobility Rolling patient unable to lay down Transfers Sit to Stand painful Car Transfers painful OP Gait Assessment Gait Gait Assistance Required: Independent Assistive Devices Assistive Device None Gait Deviations General Gait Pattern Antalgic,Decreased Stride Length,Decreased Feet Clearance,Wide Based Gait Factors Limiting Gait Function Factors Limiting Gait Function Decreased Activity Tolerance, Decreased Strength,Pain Stair Climbing Evaluation Technique/Endurance Stair Climbing Technique Step to Step PT-OP-H Neuro Start: 03/06/24 17:15 Freq: Status: Active Protocol: Document 03/10/24 17:17 [facility] (Rec: 03/13/24 17:44 [facility] [id number]) Sensation Evaluation Gross Sensation Gross Sensation Left LE Impaired Sensation Description Paresthesia,Numbness,Tingling PT-OP-J Posture/Palpation/Skin Start: 03/06/24 17:15 Freq: Status: Active Protocol: Document 03/10/24 17:17 [facility] (Rec: 03/13/24 17:44 [facility] [id number]) Posture Evaluation Position Standing Head/C-Spine Posture Forward Head T-Spine Posture Increased Kyphosis Shoulder Posture (L) Rounded,(R) Rounded Scapula Posture (L) Protracted,(R) Protracted Arm Posture (L) Internally Rotated,(R) Internally Rotated Pelvis Posture Anteriorly Tilted Weight Distribution Weight Shifted Right Hip Posture (L) Externally Rotated Knee Posture (L) Genu Valgus,(R) Genu Valgus Palpation Assessment Location lumbar spine Palpation Location L45 Palpation Findings Soft Tissue Tightness, Tenderness PT-OP-K Range of Motion Start: 03/06/24 17:15 Freq: Status: Active Protocol: Document 03/10/24 17:17 [facility] (Rec: 03/13/24 17:44 [facility] [id number]) Lumbar Spine Range of Motion Lumbar Spine Active Testing Position Standing ROM Limitations Soft Tissue Tightness,Pain Comments mod decrease all motions due to pain Hip Goniometric Range of Motion Hip Left Hip ROM WFL No Flexion w/Knee Flexed 100 Extension 0 Abduction 20 Internal Rotation 10 External Rotation 60 Right Active Hip ROM WFL Yes Hip ROM Limitations Hip ROM Limitations Soft Tissue Tightness,Pain Knee Goniometric Range of Motion Knee luisa Knee ROM WFL Yes Ankle and Foot Goniometric Range of Motion Ankle and Foot luisa Ankle/Foot ROM WFL Yes PT-OP-M Strength Start: 03/06/24 17:15 Freq: Status: Active Protocol: Document 03/10/24 17:17 [facility] (Rec: 03/13/24 17:44 [facility] [id number]) Hip Strength Hip Manual Muscle Testing Right Flexion (L2) 4 Good Extension (S1) 3+ Fair+ Abduction 4- Good- Adduction 4 Good External Rotation 4- Good- Internal Rotation 4 Good Left Flexion (L2) 4 Good Extension (S1) 3- Fair- Abduction 3- Fair- Adduction 4- Good- External Rotation 4- Good- Internal Rotation 4- Good- PT-OP-Q Treatments Start: 03/06/24 17:15 Freq: Status: Active Protocol: Document 03/10/24 17:17 [facility] (Rec: 03/13/24 17:44 [facility] [id number]) Self-Care/Home Management Treatment Education Patient Education Body Mechanics,Home Exercise Program,Pain Management, Posture Other Education issued written HEP HO PT-OP-R Modalities Start: 03/06/24 17:15 Freq: Status: Active Protocol: Document 03/10/24 17:17 [facility] (Rec: 03/13/24 17:44 [facility] [id number]) Hot Pack/Cold Pack Treatment Hot Pack Location lumbar spine, left hip PT-OP-T Assessment and Plan Start: 03/06/24 17:15 Freq: Status: Active Protocol: Document 03/10/24 17:17 [facility] (Rec: 03/13/24 17:44 [facility] [id number]) Physical Therapy Assessment Rehab Potential Rehabilitation Potential Fair Evaluation Complexity Number of Personal Factors/Comorbidities 3 or More Number of Body Systems Impaired 3 Clinical Presentation at Evaluation Evolving Impairments Impairments Activity Tolerance,Soft Tissue Mobility,Strength Goals One Impairment low back pain with radicular symptoms left LE Impairment as high as 9/10 Short Term Goal (STG) decrease pain to no greater than 5/10 with all usual activities STG Duration 04/24/24 Panel Saw Operator Goal (LTG) decrease pain to no greater than 3/10 with all usual activities to allow patient to return to PLF LTG Duration 06/10/24 Three Impairment weakness Impairment core and LE weakness left greater than right Short Term Goal (STG) Patient to be instructed in HEP for purposes of strerngthening and core stabilization STG Duration 04/24/24 Panel Saw Operator Goal (LTG) Patient to be independent and compliant with HEP and demonstrate improvement in all muscle groups to at least 4+/ 5 to allow her to return to usual activities. LTG Duration 06/10/24 Two Impairment Activity tolerance Impairment Constant pain limiting sleep and all physical activity moderately by 75% per patient report. Oswestry disability index score. 57% Short Term Goal (STG) Decrease Oswestry score to no greater than 45% as measure of improved activity tolerance. STG Duration 04/24/24 Panel Saw Operator Goal (LTG) Decrease Oswestry score to no greater than 25% as measure of improved activity tolerance and quality of life. Patient activity tolerance will improve sufficient to allow her to return to maintenance cardiac and pulmonary rehab program. LTG Duration 06/10/24 Assessment Summary Assessment Patient presents to PT with function limiting pain lumbar spine with radicular symptoms into left posterior and lateral thigh. Onset was after sleeping in a friend's bed. Evaluation difficult due to patient low activity tolerance due to medical issues including long Covid and the high irritability of her symptoms. Appears to be L5 nerve irritation , with contributing factors of stenosis per imaging as well as weakness, postural dysfunction, and obesity. Feel she would benefit from PT to decrease her pain and radicular symptoms and improve her strength and activity tolerance. Prognosis guarded due to multiple medical issues . POC was discussed and patient was in agreement. Physical Therapy Plan Frequency and Duration Frequency of Treatment 2x/Week Duration of treatment (weeks) 12 Plan of Care Start Date 03/10/24 Plan of Care End Date 06/10/24 Therapeutic Interventions Therapeutic Interventions Home Exercise Program,Manual Therapy,Patient/Caregiver Education,Self-Care/Home Management,Soft Tissue Mobilization,Taping, Therapeutic Activities, Therapeutic Exercises Modalities Cold Pack/Ice Massage,Electric Stimulation,Hot Packs, Infrared Therapy,Ultrasound Next Visit Focus/Plan Next Note Type Treatment Note Next Visit Plan Review HEP, continue gentle exercise. Consider ultrasound or cold laser, soft tissue mobilization and moist heat for pain management.
--- NOTE | 2024-03-10 17:45 | PT.OPPOC ---
Physical, Occupational & Speech Therapy At [facility] Current Diagnoses Other chronic pain (03/10/24) Lumbago with sciatica, left side (03/10/24) Pain in thoracic spine (03/10/24) Weakness (03/10/24) Visit Care Team Role Provider Type La Torres DO Attending Provider Physician Family Provider Primary Care Provider Referring Provider Specialty: Medical Address: [address] [place] [address], [address], [place], [address] Email: [email or web address] Plan Of Care PT-OP-T Assessment and Plan Start: 03/06/24 17:15 Freq: Status: Active Protocol: Document 03/10/24 17:17 SAK (Rec: 03/13/24 17:44 [facility] [id number]) Physical Therapy Assessment Rehab Potential Rehabilitation Potential Fair Evaluation Complexity Number of Personal Factors/Comorbidities 3 or More Number of Body Systems Impaired 3 Clinical Presentation at Evaluation Evolving Impairments Impairments Activity Tolerance,Soft Tissue Mobility,Strength Goals One Impairment low back pain with radicular symptoms left LE Impairment as high as 9/10 Short Term Goal (STG) decrease pain to no greater than 5/10 with all usual activities STG Duration 04/24/24 Guest Laundry Attendant Goal (LTG) decrease pain to no greater than 3/10 with all usual activities to allow patient to return to PLF LTG Duration 06/10/24 Three Impairment weakness Impairment core and LE weakness left greater than right Short Term Goal (STG) Patient to be instructed in HEP for purposes of strerngthening and core stabilization STG Duration 04/24/24 Guest Laundry Attendant Goal (LTG) Patient to be independent and compliant with HEP and demonstrate improvement in all muscle groups to at least 4+/ 5 to allow her to return to usual activities. LTG Duration 06/10/24 Two Impairment Activity tolerance Impairment Constant pain limiting sleep and all physical activity moderately by 75% per patient report. Oswestry disability index score. 57% Short Term Goal (STG) Decrease Oswestry score to no greater than 45% as measure of improved activity tolerance. STG Duration 04/24/24 Guest Laundry Attendant Goal (LTG) Decrease Oswestry score to no greater than 25% as measure of improved activity tolerance and quality of life. Patient activity tolerance will improve sufficient to allow her to return to maintenance cardiac and pulmonary rehab program. LTG Duration 06/10/24 Assessment Summary Assessment Patient presents to PT with function limiting pain lumbar spine with radicular symptoms into left posterior and lateral thigh. Onset was after sleeping in a friend's bed. Evaluation difficult due to patient low activity tolerance due to medical issues including long Covid and the high irritability of her symptoms. Appears to be L5 nerve irritation , with contributing factors of stenosis per imaging as well as weakness, postural dysfunction, and obesity. Feel she would benefit from PT to decrease her pain and radicular symptoms and improve her strength and activity tolerance. Prognosis guarded due to multiple medical issues . POC was discussed and patient was in agreement. Physical Therapy Plan Frequency and Duration Frequency of Treatment 2x/Week Duration of treatment (weeks) 12 Plan of Care Start Date 03/10/24 Plan of Care End Date 06/10/24 Therapeutic Interventions Therapeutic Interventions Home Exercise Program,Manual Therapy,Patient/Caregiver Education,Self-Care/Home Management,Soft Tissue Mobilization,Taping, Therapeutic Activities, Therapeutic Exercises Modalities Cold Pack/Ice Massage,Electric Stimulation,Hot Packs, Infrared Therapy,Ultrasound Next Visit Focus/Plan Next Note Type Treatment Note Next Visit Plan Review HEP, continue gentle exercise. Consider ultrasound or cold laser, soft tissue mobilization and moist heat for pain management. Plan of Care Dates Plan of Care Start Date 03/10/24 Plan of Care End Date 06/10/24 Electronically Signed by: Luh Weaver, PT 03/13/24 [id number] If you are in agreement with this Plan of Care, please return a signed and dated copy. I have reviewed this Plan of Care and certify that the skilled therapy services above are required to meet the patient?s needs. Physician Signature Date Printed Name and Credentials Clinical Instructor Signature Printed Name and Credentials
--- NOTE | 2024-04-09 14:53 | PT.OTN ---
Current Diagnoses Other chronic pain (04/09/24) Lumbago with sciatica, left side (04/09/24) Pain in thoracic spine (04/09/24) Weakness (04/09/24) Physical Therapy Treatment Note PT-OP-A Visit Information Start: 03/06/24 17:15 Freq: Status: Active Protocol: Document 04/09/24 08:10 SAK (Rec: 04/09/24 09:04 SAK [id number]) Out-Patient Physical Therapy Visit Information Visit Information Visit Type Treatment Note Visit Start Time 08:15 Visit Number 2 Evaluation Information Evaluation Date 03/10/24 Precautions Precautions cardiac,long covid PMH: Hypertensive urgency History of [place] (myocardial infarction) (~2020) History of CVA ( cerebrovascular accident) Concussion COVID-19 Sleep apnea Shoulder pain Diastolic heart failure Atrial fibrillation Iron deficiency anemia Ocular migraine History of stent insertion of renal artery Bone lesion Left renal artery stenosis (~ 11/22/20) 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 (~) Parumbilical hernia (~11/22/20 ) Hiatal hernia (~11/22/20) Osteopenia of femoral neck, bilateral (~02/2019) Macular degeneration, age related, nonexudative Dyslipidemia Thyroid nodule Proteus enteritis (~2018) EBV infection (~1962) Coccidioidomycosis (~1962) Heterozygous MTHFR mutation C677T Renal artery atherosclerosis ( 09/22/11) Systemic lupus erythematosus Atypical nevus of abdominal wall Lipoma Angioedema Statin intolerance Elevated coronary artery calcium score Prinzmetal's angina (1975) Hypertension CAD (coronary artery disease) (1979) Shingles (2016) Asthma History of recurrent pneumonia Severe obstructive sleep apnea -hypopnea syndrome (10/22/15) PT-OP-B Current Condition Start: 03/06/24 17:15 Freq: Status: Active Protocol: Document 04/09/24 08:10 SAK (Rec: 04/09/24 09:04 SAK [id number]) Current Condition History of Current Condition Onset Date December Current Complaints worsened back pain History of Current Condition Continues to struggle with long Covid; weakness and low energy. Couldn't continue with pulmonary rehab due to all medical issues. HIstory neck, thoracic, lumbar pain. States she was traveling and staying at friend's house, couldn't get out of friend's bed felt like my stomach was stuck to my spine. Difficulty getting in and out of friend's car. several times but pain worsened and has persisted. Only thing that helped was sitting on couch with semi firm pillow behind. Now very difficult still to get up. Can't lay on left side, still has stabbing pain right IT band. Back pain has now moved to her left buttock. Has had OMT treatments but had spasm in spine during one of her appts. can just bend over and has spasms, takes a long time to go away. Pain worst in am. Sleeps on right side but sometimes revs up IT band. A little better in am after walking a little bit. States she is cold a lot, tends to cross her arms across her chest due to this. 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 Won't take pain medication. Prior Treatments and Tests x-ray: negative EMG: Personal Factors Other Personal Factors That May Effect long covid, poor activity Therapy/Recovery tolerance cardiac and pulmonary dysfunction obesity PT-OP-C Subjective Start: 03/06/24 17:15 Freq: Status: Active Protocol: Document 04/09/24 08:10 [facility] (Rec: 04/09/24 09:04 [facility] [id number]) OP-PT Subjective Patient Comments Patient Comments Saw Dr. Torres last week for OMT, decreased pain for 1 day, can only go 1x/month due to insurance. LBP still going into her left buttock. Very concerned about getting deconditioned, can barely handle ADL's PT-OP-F Manual Assessment Start: 03/06/24 17:15 Freq: Status: Active Protocol: Document 03/10/24 17:17 SAK (Rec: 03/13/24 17:44 [facility] [id number]) Manual Assessments Soft Tissue Assessment Soft Tissue Mobility Assessment tightnes lumbar paraspinals, left piriformis PT-OP-G Mobility & Gait Start: 03/06/24 17:15 Freq: Status: Active Protocol: Document 03/10/24 17:17 SAK (Rec: 03/13/24 17:44 [facility] [id number]) OP Mobility Evaluation Bed Mobility Rolling patient unable to lay down Transfers Sit to Stand painful Car Transfers painful OP Gait Assessment Gait Gait Assistance Required: Independent Assistive Devices Assistive Device None Gait Deviations General Gait Pattern Antalgic,Decreased Stride Length,Decreased Feet Clearance,Wide Based Gait Factors Limiting Gait Function Factors Limiting Gait Function Decreased Activity Tolerance, Decreased Strength,Pain Stair Climbing Evaluation Technique/Endurance Stair Climbing Technique Step to Step PT-OP-H Neuro Start: 03/06/24 17:15 Freq: Status: Active Protocol: Document 03/10/24 17:17 SAK (Rec: 03/13/24 17:44 [facility] [id number]) Sensation Evaluation Gross Sensation Gross Sensation Left LE Impaired Sensation Description Paresthesia,Numbness,Tingling PT-OP-J Posture/Palpation/Skin Start: 03/06/24 17:15 Freq: Status: Active Protocol: Document 03/10/24 17:17 [facility] (Rec: 03/13/24 17:44 [facility] [id number]) Posture Evaluation Position Standing Head/C-Spine Posture Forward Head T-Spine Posture Increased Kyphosis Shoulder Posture (L) Rounded,(R) Rounded Scapula Posture (L) Protracted,(R) Protracted Arm Posture (L) Internally Rotated,(R) Internally Rotated Pelvis Posture Anteriorly Tilted Weight Distribution Weight Shifted Right Hip Posture (L) Externally Rotated Knee Posture (L) Genu Valgus,(R) Genu Valgus Palpation Assessment Location lumbar spine Palpation Location L45 Palpation Findings Soft Tissue Tightness, Tenderness PT-OP-K Range of Motion Start: 03/06/24 17:15 Freq: Status: Active Protocol: Document 03/10/24 17:17 [facility] (Rec: 03/13/24 17:44 [facility] [id number]) Lumbar Spine Range of Motion Lumbar Spine Active Testing Position Standing ROM Limitations Soft Tissue Tightness,Pain Comments mod decrease all motions due to pain Hip Goniometric Range of Motion Hip Left Hip ROM WFL No Flexion w/Knee Flexed 100 Extension 0 Abduction 20 Internal Rotation 10 External Rotation 60 Right Active Hip ROM WFL Yes Hip ROM Limitations Hip ROM Limitations Soft Tissue Tightness,Pain Knee Goniometric Range of Motion Knee luisa Knee ROM WFL Yes Ankle and Foot Goniometric Range of Motion Ankle and Foot luisa Ankle/Foot ROM WFL Yes PT-OP-M Strength Start: 03/06/24 17:15 Freq: Status: Active Protocol: Document 03/10/24 17:17 SAK (Rec: 03/13/24 17:44 [facility] [id number]) Hip Strength Hip Manual Muscle Testing Right Flexion (L2) 4 Good Extension (S1) 3+ Fair+ Abduction 4- Good- Adduction 4 Good External Rotation 4- Good- Internal Rotation 4 Good Left Flexion (L2) 4 Good Extension (S1) 3- Fair- Abduction 3- Fair- Adduction 4- Good- External Rotation 4- Good- Internal Rotation 4- Good- PT-OP-Q Treatments Start: 03/06/24 17:15 Freq: Status: Active Protocol: Document 04/09/24 08:10 [facility] (Rec: 04/09/24 09:04 [facility] [id number]) Cardio Equipment Recumbent Stepper (Sci-Fit) Duration (Minutes) 8 Resistance 1 Seat Position 10 Other rpm 40, 2 brief rest breaks. Gym Equipment Shuttle Recovery Bilateral Squats Details cues for quad and gluteal activation Resistance 50 Shuttle Recovery Platform Stable Reps/Time 10x2 Shuttle Balance chains red, cords loose Details balance and weight shift fwd/ bck with feet sta, side toggered, side to side Reps/Duration 4 min Therapeutic Exercises Supine Exercises SKTC Reps/Minutes x30 Comments manual HS stretch Reps/Minutes 1x30 luisa Comments manual Manual Therapy Treatment Consent Patient gave verbal consent for manual Yes treatment Soft Tissue Mobilization piriformis Mobilization Type Myofascial Release,Strumming Intensity/Depth mod Body Position right sidelying lumbar paraspinals Mobilization Type Myofascial Release,Strumming Intensity/Depth mod Body Position right sidelyihng Self-Care/Home Management Treatment Education Patient Education Body Mechanics,Home Exercise Program,Pain Management, Posture Other Education issued written HEP HO PT-OP-R Modalities Start: 03/06/24 17:15 Freq: Status: Active Protocol: Document 04/09/24 08:10 [facility] (Rec: 04/09/24 14:53 [facility] [id number]) Hot Pack/Cold Pack Treatment Hot Pack Location left piriformis and IT band Patient Position Sidelying Patient Tolerance Good PT-OP-T Assessment and Plan Start: 03/06/24 17:15 Freq: Status: Active Protocol: Document 04/09/24 08:10 [facility] (Rec: 04/09/24 09:04 [facility] [id number]) Physical Therapy Assessment Impairments Impairments Activity Tolerance,Soft Tissue Mobility,Strength Goals One Impairment low back pain with radicular symptoms left LE Impairment as high as 9/10 Short Term Goal (STG) decrease pain to no greater than 5/10 with all usual activities STG Duration 04/24/24 Residential Goal (LTG) decrease pain to no greater than 3/10 with all usual activities to allow patient to return to PLF LTG Duration 06/10/24 Three Impairment weakness Impairment core and LE weakness left greater than right Short Term Goal (STG) Patient to be instructed in HEP for purposes of strerngthening and core stabilization STG Duration 04/24/24 Stylist Apprentice Goal (LTG) Patient to be independent and compliant with HEP and demonstrate improvement in all muscle groups to at least 4+/ 5 to allow her to return to usual activities. LTG Duration 06/10/24 Two Impairment Activity tolerance Impairment Constant pain limiting sleep and all physical activity moderately by 75% per patient report. Oswestry disability index score. 57% Short Term Goal (STG) Decrease Oswestry score to no greater than 45% as measure of improved activity tolerance. STG Duration 04/24/24 Stylist Apprentice Goal (LTG) Decrease Oswestry score to no greater than 25% as measure of improved activity tolerance and quality of life. Patient activity tolerance will improve sufficient to allow her to return to maintenance cardiac and pulmonary rehab program. LTG Duration 06/10/24 Assessment Summary Assessment Low tolerance for ther ex. Needs frequent rest breaks. Extremely tender to palpation left piriformis and IT band Physical Therapy Plan Frequency and Duration Frequency of Treatment 2x/Week Duration of treatment (weeks) 12 Plan of Care Start Date 03/10/24 Plan of Care End Date 06/10/24 Therapeutic Interventions Therapeutic Interventions Home Exercise Program,Manual Therapy,Patient/Caregiver Education,Self-Care/Home Management,Soft Tissue Mobilization,Taping, Therapeutic Activities, Therapeutic Exercises Modalities Cold Pack/Ice Massage,Electric Stimulation,Hot Packs, Infrared Therapy,Ultrasound Next Visit Focus/Plan Next Note Type Treatment Note Next Visit Plan Continue progression of ex, manual treatment as tolerated. Consider cold laser or ultrasound. Use of massage tool for soft tissue mobilization
--- NOTE | 2024-04-14 13:28 | PT.OTN ---
Current Diagnoses Other chronic pain (04/14/24) Lumbago with sciatica, left side (04/14/24) Pain in thoracic spine (04/14/24) Weakness (04/14/24) Physical Therapy Treatment Note PT-OP-A Visit Information Start: 03/06/24 17:15 Freq: Status: Active Protocol: Document 04/14/24 09:02 SAK (Rec: 04/14/24 09:46 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 (~) Parumbilical hernia (~11/22/20 ) Hiatal hernia (~11/22/20) Osteopenia of femoral neck, bilateral (~02/2019) Macular degeneration, age related, nonexudative Dyslipidemia Thyroid nodule Proteus enteritis (~2018) EBV infection (~1962) Coccidioidomycosis (~1962) Heterozygous MTHFR mutation C677T Renal artery atherosclerosis ( 09/22/11) Systemic lupus erythematosus Atypical nevus of abdominal wall Lipoma Angioedema Statin intolerance Elevated coronary artery calcium score Prinzmetal's angina (1975) Hypertension CAD (coronary artery disease) (1979) Shingles (2016) Asthma History of recurrent pneumonia Severe obstructive sleep apnea -hypopnea syndrome (10/22/15) PT-OP-B Current Condition Start: 03/06/24 17:15 Freq: Status: Active Protocol: Document 04/14/24 09:02 SAK (Rec: 04/14/24 09:46 [facility] [id number]) Current Condition History of Current Condition Onset Date December Current Complaints worsened back pain History of Current Condition Continues to struggle with long Covid; weakness and low energy. Couldn't continue with pulmonary rehab due to all medical issues. HIstory neck, thoracic, lumbar pain. States she was traveling and staying at friend's house, couldn't get out of friend's bed felt like my stomach was stuck to my spine. Difficulty getting in and out of friend's car. several times but pain worsened and has persisted. Only thing that helped was sitting on couch with semi firm pillow behind. Now very difficult still to get up. Can't lay on left side, still has stabbing pain right IT band. Back pain has now moved to her left buttock. Has had OMT treatments but had spasm in spine during one of her appts. can just bend over and has spasms, takes a long time to go away. Pain worst in am. Sleeps on right side but sometimes revs up IT band. A little better in am after walking a little bit. States she is cold a lot, tends to cross her arms across her chest due to this. 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 Won't take pain medication. Prior Treatments and Tests x-ray: negative EMG: Personal Factors Other Personal Factors That May Effect long covid, poor activity Therapy/Recovery tolerance cardiac and pulmonary dysfunction obesity PT-OP-C Subjective Start: 03/06/24 17:15 Freq: Status: Active Protocol: Document 04/14/24 09:02 [facility] (Rec: 04/14/24 09:46 [facility] [id number]) OP-PT Subjective Patient Comments Patient Comments Wiped out after PT last session, but I need to do this . PT-OP-F Manual Assessment Start: 03/06/24 17:15 Freq: Status: Active Protocol: Document 03/10/24 17:17 [facility] (Rec: 03/13/24 17:44 [facility] [id number]) Manual Assessments Soft Tissue Assessment Soft Tissue Mobility Assessment tightnes lumbar paraspinals, left piriformis PT-OP-G Mobility & Gait Start: 03/06/24 17:15 Freq: Status: Active Protocol: Document 03/10/24 17:17 [facility] (Rec: 03/13/24 17:44 [facility] [id number]) OP Mobility Evaluation Bed Mobility Rolling patient unable to lay down Transfers Sit to Stand painful Car Transfers painful OP Gait Assessment Gait Gait Assistance Required: Independent Assistive Devices Assistive Device None Gait Deviations General Gait Pattern Antalgic,Decreased Stride Length,Decreased Feet Clearance,Wide Based Gait Factors Limiting Gait Function Factors Limiting Gait Function Decreased Activity Tolerance, Decreased Strength,Pain Stair Climbing Evaluation Technique/Endurance Stair Climbing Technique Step to Step PT-OP-H Neuro Start: 03/06/24 17:15 Freq: Status: Active Protocol: Document 03/10/24 17:17 [facility] (Rec: 03/13/24 17:44 [facility] [id number]) Sensation Evaluation Gross Sensation Gross Sensation Left LE Impaired Sensation Description Paresthesia,Numbness,Tingling PT-OP-J Posture/Palpation/Skin Start: 03/06/24 17:15 Freq: Status: Active Protocol: Document 03/10/24 17:17 [facility] (Rec: 03/13/24 17:44 [facility] [id number]) Posture Evaluation Position Standing Head/C-Spine Posture Forward Head T-Spine Posture Increased Kyphosis Shoulder Posture (L) Rounded,(R) Rounded Scapula Posture (L) Protracted,(R) Protracted Arm Posture (L) Internally Rotated,(R) Internally Rotated Pelvis Posture Anteriorly Tilted Weight Distribution Weight Shifted Right Hip Posture (L) Externally Rotated Knee Posture (L) Genu Valgus,(R) Genu Valgus Palpation Assessment Location lumbar spine Palpation Location L45 Palpation Findings Soft Tissue Tightness, Tenderness PT-OP-K Range of Motion Start: 03/06/24 17:15 Freq: Status: Active Protocol: Document 03/10/24 17:17 [facility] (Rec: 03/13/24 17:44 [facility] [id number]) Lumbar Spine Range of Motion Lumbar Spine Active Testing Position Standing ROM Limitations Soft Tissue Tightness,Pain Comments mod decrease all motions due to pain Hip Goniometric Range of Motion Hip Left Hip ROM WFL No Flexion w/Knee Flexed 100 Extension 0 Abduction 20 Internal Rotation 10 External Rotation 60 Right Active Hip ROM WFL Yes Hip ROM Limitations Hip ROM Limitations Soft Tissue Tightness,Pain Knee Goniometric Range of Motion Knee luisa Knee ROM WFL Yes Ankle and Foot Goniometric Range of Motion Ankle and Foot luisa Ankle/Foot ROM WFL Yes PT-OP-M Strength Start: 03/06/24 17:15 Freq: Status: Active Protocol: Document 03/10/24 17:17 [facility] (Rec: 03/13/24 17:44 [facility] [id number]) Hip Strength Hip Manual Muscle Testing Right Flexion (L2) 4 Good Extension (S1) 3+ Fair+ Abduction 4- Good- Adduction 4 Good External Rotation 4- Good- Internal Rotation 4 Good Left Flexion (L2) 4 Good Extension (S1) 3- Fair- Abduction 3- Fair- Adduction 4- Good- External Rotation 4- Good- Internal Rotation 4- Good- PT-OP-Q Treatments Start: 03/06/24 17:15 Freq: Status: Active Protocol: Document 04/14/24 09:02 [facility] (Rec: 04/14/24 09:46 [facility] [id number]) Cardio Equipment Recumbent Stepper (Sci-Fit) Duration (Minutes) 15 Resistance 1 Seat Position 10 Other rpm 40, 1.25 mi Gym Equipment Shuttle Recovery Unilateral Squats Resistance 37 Shuttle Recovery Platform Stable Reps/Time 10x 2 Bilateral Squats Details cues for quad and gluteal activation Resistance 50 Shuttle Recovery Platform Stable Reps/Time 10x2 Shuttle Balance chains red, cords loose Details balance and weight shift fwd/ bck with feet sta, side toggered, side to side Reps/Duration 3 min Therapeutic Exercises Supine Exercises SKTC Reps/Minutes x30 Comments manual HS stretch Reps/Minutes 1x30 luisa Comments manual Manual Therapy Treatment Consent Patient gave verbal consent for manual Yes treatment Soft Tissue Mobilization piriformis Mobilization Type Myofascial Release,Strumming Intensity/Depth mod Body Position right sidelying lumbar paraspinals Mobilization Type Myofascial Release,Strumming Intensity/Depth mod Body Position right sidelyihng Self-Care/Home Management Treatment Education Patient Education Body Mechanics,Home Exercise Program,Pain Management, Posture Other Education issued written HEP HO PT-OP-R Modalities Start: 03/06/24 17:15 Freq: Status: Active Protocol: Document 04/14/24 09:02 [facility] (Rec: 04/14/24 09:46 [facility] [id number]) Hot Pack/Cold Pack Treatment Hot Pack Location left piriformis and IT band Patient Position Sidelying Patient Tolerance Good PT-OP-T Assessment and Plan Start: 03/06/24 17:15 Freq: Status: Active Protocol: Document 04/14/24 09:02 [facility] (Rec: 04/14/24 09:46 [facility] [id number]) Physical Therapy Assessment Impairments Impairments Activity Tolerance,Soft Tissue Mobility,Strength Goals One Impairment low back pain with radicular symptoms left LE Impairment as high as 9/10 Short Term Goal (STG) decrease pain to no greater than 5/10 with all usual activities STG Duration 04/24/24 Tool Design Drafter Goal (LTG) decrease pain to no greater than 3/10 with all usual activities to allow patient to return to PLF LTG Duration 06/10/24 Three Impairment weakness Impairment core and LE weakness left greater than right Short Term Goal (STG) Patient to be instructed in HEP for purposes of strerngthening and core stabilization STG Duration 04/24/24 Tool Design Drafter Goal (LTG) Patient to be independent and compliant with HEP and demonstrate improvement in all muscle groups to at least 4+/ 5 to allow her to return to usual activities. LTG Duration 06/10/24 Two Impairment Activity tolerance Impairment Constant pain limiting sleep and all physical activity moderately by 75% per patient report. Oswestry disability index score. 57% Short Term Goal (STG) Decrease Oswestry score to no greater than 45% as measure of improved activity tolerance. STG Duration 04/24/24 Prison Goal (LTG) Decrease Oswestry score to no greater than 25% as measure of improved activity tolerance and quality of life. Patient activity tolerance will improve sufficient to allow her to return to maintenance cardiac and pulmonary rehab program. LTG Duration 06/10/24 Assessment Summary Assessment Highly fatigued after PT though reports some decrease in pain. Lots of walking over weekend reported increase in pain. Physical Therapy Plan Frequency and Duration Frequency of Treatment 2x/Week Duration of treatment (weeks) 12 Plan of Care Start Date 03/10/24 Plan of Care End Date 06/10/24 Therapeutic Interventions Therapeutic Interventions Home Exercise Program,Manual Therapy,Patient/Caregiver Education,Self-Care/Home Management,Soft Tissue Mobilization,Taping, Therapeutic Activities, Therapeutic Exercises Modalities Cold Pack/Ice Massage,Electric Stimulation,Hot Packs, Infrared Therapy,Ultrasound Next Visit Focus/Plan Next Note Type Treatment Note Next Visit Plan Continue progressive ther ex as tolerated. Modalities and manual therapy PRN pain.
--- NOTE | 2024-04-17 09:46 | PT.OTN ---
Current Diagnoses Other chronic pain (04/17/24) Lumbago with sciatica, left side (04/17/24) Pain in thoracic spine (04/17/24) Weakness (04/17/24) Physical Therapy Treatment Note PT-OP-A Visit Information Start: 03/06/24 17:15 Freq: Status: Active Protocol: Document 04/17/24 08:59 [facility] (Rec: 04/17/24 09:45 [facility] [id number]) Out-Patient Physical Therapy Visit Information Visit Information Visit Type Treatment Note Visit Start Time 09:00 Visit Stop Time 09:55 Visit Number 4 Evaluation Information Evaluation Date 03/10/24 Precautions Precautions cardiac,long covid PMH: Hypertensive urgency History of [place] (myocardial infarction) (~2020) History of CVA ( cerebrovascular accident) Concussion COVID-19 Sleep apnea Shoulder pain Diastolic heart failure Atrial fibrillation Iron deficiency anemia Ocular migraine History of stent insertion of renal artery Bone lesion Left renal artery stenosis (~ 11/22/20) 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 (~) Parumbilical hernia (~11/22/20 ) Hiatal hernia (~11/22/20) Osteopenia of femoral neck, bilateral (~02/2019) Macular degeneration, age related, nonexudative Dyslipidemia Thyroid nodule Proteus enteritis (~2018) EBV infection (~1962) Coccidioidomycosis (~1962) Heterozygous MTHFR mutation C677T Renal artery atherosclerosis ( 09/22/11) Systemic lupus erythematosus Atypical nevus of abdominal wall Lipoma Angioedema Statin intolerance Elevated coronary artery calcium score Prinzmetal's angina (1975) Hypertension CAD (coronary artery disease) (1979) Shingles (2016) Asthma History of recurrent pneumonia Severe obstructive sleep apnea -hypopnea syndrome (10/22/15) PT-OP-B Current Condition Start: 03/06/24 17:15 Freq: Status: Active Protocol: Document 04/17/24 08:59 [facility]AK (Rec: 04/17/24 09:45 [facility] [id number]) Current Condition History of Current Condition Onset Date December Current Complaints worsened back pain History of Current Condition Continues to struggle with long Covid; weakness and low energy. Couldn't continue with pulmonary rehab due to all medical issues. HIstory neck, thoracic, lumbar pain. States she was traveling and staying at friend's house, couldn't get out of friend's bed felt like my stomach was stuck to my spine. Difficulty getting in and out of friend's car. several times but pain worsened and has persisted. Only thing that helped was sitting on couch with semi firm pillow behind. Now very difficult still to get up. Can't lay on left side, still has stabbing pain right IT band. Back pain has now moved to her left buttock. Has had OMT treatments but had spasm in spine during one of her appts. can just bend over and has spasms, takes a long time to go away. Pain worst in am. Sleeps on right side but sometimes revs up IT band. A little better in am after walking a little bit. States she is cold a lot, tends to cross her arms across her chest due to this. 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 Won't take pain medication. Prior Treatments and Tests x-ray: negative EMG: Personal Factors Other Personal Factors That May Effect long covid, poor activity Therapy/Recovery tolerance cardiac and pulmonary dysfunction obesity PT-OP-C Subjective Start: 03/06/24 17:15 Freq: Status: Active Protocol: Document 04/17/24 08:59 [facility] (Rec: 04/17/24 09:45 [facility] [id number]) OP-PT Subjective Patient Comments Patient Comments [place] better after last session . States can't lift right UE onto curbs or stairs. PT-OP-F Manual Assessment Start: 03/06/24 17:15 Freq: Status: Active Protocol: Document 03/10/24 17:17 [facility] (Rec: 03/13/24 17:44 [facility] [id number]) Manual Assessments Soft Tissue Assessment Soft Tissue Mobility Assessment tightnes lumbar paraspinals, left piriformis PT-OP-G Mobility & Gait Start: 03/06/24 17:15 Freq: Status: Active Protocol: Document 03/10/24 17:17 [facility] (Rec: 03/13/24 17:44 [facility] [id number]) OP Mobility Evaluation Bed Mobility Rolling patient unable to lay down Transfers Sit to Stand painful Car Transfers painful OP Gait Assessment Gait Gait Assistance Required: Independent Assistive Devices Assistive Device None Gait Deviations General Gait Pattern Antalgic,Decreased Stride Length,Decreased Feet Clearance,Wide Based Gait Factors Limiting Gait Function Factors Limiting Gait Function Decreased Activity Tolerance, Decreased Strength,Pain Stair Climbing Evaluation Technique/Endurance Stair Climbing Technique Step to Step PT-OP-H Neuro Start: 03/06/24 17:15 Freq: Status: Active Protocol: Document 03/10/24 17:17 [facility] (Rec: 03/13/24 17:44 [facility] [id number]) Sensation Evaluation Gross Sensation Gross Sensation Left LE Impaired Sensation Description Paresthesia,Numbness,Tingling PT-OP-J Posture/Palpation/Skin Start: 03/06/24 17:15 Freq: Status: Active Protocol: Document 03/10/24 17:17 [facility] (Rec: 03/13/24 17:44 [facility] [id number]) Posture Evaluation Position Standing Head/C-Spine Posture Forward Head T-Spine Posture Increased Kyphosis Shoulder Posture (L) Rounded,(R) Rounded Scapula Posture (L) Protracted,(R) Protracted Arm Posture (L) Internally Rotated,(R) Internally Rotated Pelvis Posture Anteriorly Tilted Weight Distribution Weight Shifted Right Hip Posture (L) Externally Rotated Knee Posture (L) Genu Valgus,(R) Genu Valgus Palpation Assessment Location lumbar spine Palpation Location L45 Palpation Findings Soft Tissue Tightness, Tenderness PT-OP-K Range of Motion Start: 03/06/24 17:15 Freq: Status: Active Protocol: Document 03/10/24 17:17 [facility] (Rec: 03/13/24 17:44 [facility] [id number]) Lumbar Spine Range of Motion Lumbar Spine Active Testing Position Standing ROM Limitations Soft Tissue Tightness,Pain Comments mod decrease all motions due to pain Hip Goniometric Range of Motion Hip Left Hip ROM WFL No Flexion w/Knee Flexed 100 Extension 0 Abduction 20 Internal Rotation 10 External Rotation 60 Right Active Hip ROM WFL Yes Hip ROM Limitations Hip ROM Limitations Soft Tissue Tightness,Pain Knee Goniometric Range of Motion Knee luisa Knee ROM WFL Yes Ankle and Foot Goniometric Range of Motion Ankle and Foot luisa Ankle/Foot ROM WFL Yes PT-OP-M Strength Start: 03/06/24 17:15 Freq: Status: Active Protocol: Document 03/10/24 17:17 [facility] (Rec: 03/13/24 17:44 [facility] [id number]) Hip Strength Hip Manual Muscle Testing Right Flexion (L2) 4 Good Extension (S1) 3+ Fair+ Abduction 4- Good- Adduction 4 Good External Rotation 4- Good- Internal Rotation 4 Good Left Flexion (L2) 4 Good Extension (S1) 3- Fair- Abduction 3- Fair- Adduction 4- Good- External Rotation 4- Good- Internal Rotation 4- Good- PT-OP-Q Treatments Start: 03/06/24 17:15 Freq: Status: Active Protocol: Document 04/17/24 08:59 [facility] (Rec: 04/17/24 09:45 [facility] [id number]) Cardio Equipment Recumbent Stepper (Sci-Fit) Duration (Minutes) 17 Resistance 1 Seat Position 10 Other rpm 40, 1.40 mi Gym Equipment Shuttle Recovery Unilateral Squats Resistance 37 Shuttle Recovery Platform Stable Reps/Time 10x 2 Bilateral Squats Details cues for quad and gluteal activation Resistance 50 Shuttle Recovery Platform Stable Reps/Time 10x2 Therapeutic Ball seated Exercise Details pelvic tilts, circles, LAQ, bouncing Ball Size/Color green 65 cm Body Position seated Therapeutic Exercises Sitting Exercises march Equipment Used L2 TB Reps/Minutes 10x seated clam Equipment Used L2 TB Reps/Minutes 10x Standing Exercises step touch Equipment Used 4, 6 stairs Reps/Minutes 10x ea PT-OP-R Modalities Start: 03/06/24 17:15 Freq: Status: Active Protocol: Document 04/17/24 09:00 [facility] (Rec: 04/17/24 09:45 [facility] [id number]) Hot Pack/Cold Pack Treatment Hot Pack Location left piriformis and IT band Patient Position Sidelying Patient Tolerance Good PT-OP-T Assessment and Plan Start: 03/06/24 17:15 Freq: Status: Active Protocol: Document 04/17/24 08:59 [facility] (Rec: 04/17/24 09:45 [facility] [id number]) Physical Therapy Assessment Impairments Impairments Activity Tolerance,Soft Tissue Mobility,Strength Goals One Impairment low back pain with radicular symptoms left LE Impairment as high as 9/10 Short Term Goal (STG) decrease pain to no greater than 5/10 with all usual activities STG Duration 04/24/24 Professor Of Physics Goal (LTG) decrease pain to no greater than 3/10 with all usual activities to allow patient to return to PLF LTG Duration 06/10/24 Three Impairment weakness Impairment core and LE weakness left greater than right Short Term Goal (STG) Patient to be instructed in HEP for purposes of strerngthening and core stabilization STG Duration 04/24/24 Mcc Goal (LTG) Patient to be independent and compliant with HEP and demonstrate improvement in all muscle groups to at least 4+/ 5 to allow her to return to usual activities. LTG Duration 06/10/24 Two Impairment Activity tolerance Impairment Constant pain limiting sleep and all physical activity moderately by 75% per patient report. Oswestry disability index score. 57% Short Term Goal (STG) Decrease Oswestry score to no greater than 45% as measure of improved activity tolerance. STG Duration 04/24/24 Mcc Goal (LTG) Decrease Oswestry score to no greater than 25% as measure of improved activity tolerance and quality of life. Patient activity tolerance will improve sufficient to allow her to return to maintenance cardiac and pulmonary rehab program. LTG Duration 06/10/24 Progress Towards Goals Progress Towards Goals Slow Progress due to Medical Issues Assessment Summary Assessment Able to progress to 17 min on recumbant elliptical and add seated therapy ball ex to HEP for core strengthening. Also added step touches fair mesha with frequent rest breaks. Physical Therapy Plan Frequency and Duration Frequency of Treatment 2x/Week Duration of treatment (weeks) 12 Plan of Care Start Date 03/10/24 Plan of Care End Date 06/10/24 Therapeutic Interventions Therapeutic Interventions Home Exercise Program,Manual Therapy,Patient/Caregiver Education,Self-Care/Home Management,Soft Tissue Mobilization,Taping, Therapeutic Activities, Therapeutic Exercises Modalities Cold Pack/Ice Massage,Electric Stimulation,Hot Packs, Infrared Therapy,Ultrasound Next Visit Focus/Plan Next Note Type Treatment Note Next Visit Plan Continue progressive ther ex as tolerated. Modalities and manual therapy PRN pain. hurdles per patient request
--- NOTE | 2024-04-21 16:42 | PT.OTN ---
Current Diagnoses Other chronic pain (04/21/24) Lumbago with sciatica, left side (04/21/24) Pain in thoracic spine (04/21/24) Weakness (04/21/24) Physical Therapy Treatment Note PT-OP-A Visit Information Start: 03/06/24 17:15 Freq: Status: Active Protocol: Document 04/21/24 09:00 [facility] (Rec: 04/21/24 09:50 [facility] [id number]) Out-Patient Physical Therapy Visit Information Visit Information Visit Type Treatment Note Visit Start Time 09:00 Visit Stop Time 09:55 Visit Number 5 Evaluation Information Evaluation Date 03/10/24 Precautions Precautions cardiac,long covid PMH: Hypertensive urgency History of [place] (myocardial infarction) (~2020) History of CVA ( cerebrovascular accident) Concussion COVID-19 Sleep apnea Shoulder pain Diastolic heart failure Atrial fibrillation Iron deficiency anemia Ocular migraine History of stent insertion of renal artery Bone lesion Left renal artery stenosis (~ 11/22/20) 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 (~) Parumbilical hernia (~11/22/20 ) Hiatal hernia (~11/22/20) Osteopenia of femoral neck, bilateral (~02/2019) Macular degeneration, age related, nonexudative Dyslipidemia Thyroid nodule Proteus enteritis (~2018) EBV infection (~1962) Coccidioidomycosis (~1962) Heterozygous MTHFR mutation C677T Renal artery atherosclerosis ( 09/22/11) Systemic lupus erythematosus Atypical nevus of abdominal wall Lipoma Angioedema Statin intolerance Elevated coronary artery calcium score Prinzmetal's angina (1975) Hypertension CAD (coronary artery disease) (1979) Shingles (2016) Asthma History of recurrent pneumonia Severe obstructive sleep apnea -hypopnea syndrome (10/22/15) PT-OP-B Current Condition Start: 03/06/24 17:15 Freq: Status: Active Protocol: Document 04/21/24 09:00 [facility] (Rec: 04/21/24 09:50 [facility] [id number]) Current Condition History of Current Condition Onset Date December Current Complaints worsened back pain History of Current Condition Continues to struggle with long Covid; weakness and low energy. Couldn't continue with pulmonary rehab due to all medical issues. HIstory neck, thoracic, lumbar pain. States she was traveling and staying at friend's house, couldn't get out of friend's bed felt like my stomach was stuck to my spine. Difficulty getting in and out of friend's car. several times but pain worsened and has persisted. Only thing that helped was sitting on couch with semi firm pillow behind. Now very difficult still to get up. Can't lay on left side, still has stabbing pain right IT band. Back pain has now moved to her left buttock. Has had OMT treatments but had spasm in spine during one of her appts. can just bend over and has spasms, takes a long time to go away. Pain worst in am. Sleeps on right side but sometimes revs up IT band. A little better in am after walking a little bit. States she is cold a lot, tends to cross her arms across her chest due to this. 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 Won't take pain medication. Prior Treatments and Tests x-ray: negative EMG: Personal Factors Other Personal Factors That May Effect long covid, poor activity Therapy/Recovery tolerance cardiac and pulmonary dysfunction obesity PT-OP-C Subjective Start: 03/06/24 17:15 Freq: Status: Active Protocol: Document 04/21/24 09:00 [facility] (Rec: 04/21/24 09:50 [facility] [id number]) OP-PT Subjective Patient Comments Patient Comments Had a very hard day after PT but this is my shot to get stronger. Exhausted, trembly , SOB with the long Covid. PT-OP-F Manual Assessment Start: 03/06/24 17:15 Freq: Status: Active Protocol: Document 03/10/24 17:17 [facility] (Rec: 03/13/24 17:44 [facility] [id number]) Manual Assessments Soft Tissue Assessment Soft Tissue Mobility Assessment tightnes lumbar paraspinals, left piriformis PT-OP-G Mobility & Gait Start: 03/06/24 17:15 Freq: Status: Active Protocol: Document 03/10/24 17:17 [facility] (Rec: 03/13/24 17:44 [facility] [id number]) OP Mobility Evaluation Bed Mobility Rolling patient unable to lay down Transfers Sit to Stand painful Car Transfers painful OP Gait Assessment Gait Gait Assistance Required: Independent Assistive Devices Assistive Device None Gait Deviations General Gait Pattern Antalgic,Decreased Stride Length,Decreased Feet Clearance,Wide Based Gait Factors Limiting Gait Function Factors Limiting Gait Function Decreased Activity Tolerance, Decreased Strength,Pain Stair Climbing Evaluation Technique/Endurance Stair Climbing Technique Step to Step PT-OP-H Neuro Start: 03/06/24 17:15 Freq: Status: Active Protocol: Document 03/10/24 17:17 [facility] (Rec: 03/13/24 17:44 [facility] [id number]) Sensation Evaluation Gross Sensation Gross Sensation Left LE Impaired Sensation Description Paresthesia,Numbness,Tingling PT-OP-J Posture/Palpation/Skin Start: 03/06/24 17:15 Freq: Status: Active Protocol: Document 03/10/24 17:17 [facility] (Rec: 03/13/24 17:44 [facility] [id number]) Posture Evaluation Position Standing Head/C-Spine Posture Forward Head T-Spine Posture Increased Kyphosis Shoulder Posture (L) Rounded,(R) Rounded Scapula Posture (L) Protracted,(R) Protracted Arm Posture (L) Internally Rotated,(R) Internally Rotated Pelvis Posture Anteriorly Tilted Weight Distribution Weight Shifted Right Hip Posture (L) Externally Rotated Knee Posture (L) Genu Valgus,(R) Genu Valgus Palpation Assessment Location lumbar spine Palpation Location L45 Palpation Findings Soft Tissue Tightness, Tenderness PT-OP-K Range of Motion Start: 03/06/24 17:15 Freq: Status: Active Protocol: Document 03/10/24 17:17 [facility] (Rec: 03/13/24 17:44 [facility] [id number]) Lumbar Spine Range of Motion Lumbar Spine Active Testing Position Standing ROM Limitations Soft Tissue Tightness,Pain Comments mod decrease all motions due to pain Hip Goniometric Range of Motion Hip Left Hip ROM WFL No Flexion w/Knee Flexed 100 Extension 0 Abduction 20 Internal Rotation 10 External Rotation 60 Right Active Hip ROM WFL Yes Hip ROM Limitations Hip ROM Limitations Soft Tissue Tightness,Pain Knee Goniometric Range of Motion Knee luisa Knee ROM WFL Yes Ankle and Foot Goniometric Range of Motion Ankle and Foot luisa Ankle/Foot ROM WFL Yes PT-OP-M Strength Start: 03/06/24 17:15 Freq: Status: Active Protocol: Document 03/10/24 17:17 [facility] (Rec: 03/13/24 17:44 [facility] [id number]) Hip Strength Hip Manual Muscle Testing Right Flexion (L2) 4 Good Extension (S1) 3+ Fair+ Abduction 4- Good- Adduction 4 Good External Rotation 4- Good- Internal Rotation 4 Good Left Flexion (L2) 4 Good Extension (S1) 3- Fair- Abduction 3- Fair- Adduction 4- Good- External Rotation 4- Good- Internal Rotation 4- Good- PT-OP-Q Treatments Start: 03/06/24 17:15 Freq: Status: Active Protocol: Document 04/21/24 09:00 [facility] (Rec: 04/21/24 09:50 [facility] [id number]) Cardio Equipment Recumbent Stepper (Sci-Fit) Duration (Minutes) 17 Resistance 1 Seat Position 10 Other rpm 40, 1.37 mi Gym Equipment Shuttle Recovery Unilateral Squats Resistance 37 Shuttle Recovery Platform Stable Reps/Time 10x 2 Bilateral Squats Details cues for quad and gluteal activation Resistance 62 Shuttle Recovery Platform Stable Reps/Time 10x2 Therapeutic Exercises Supine Exercises pec stretch Reps/Minutes 2x30 Sitting Exercises march Equipment Used L2 TB Reps/Minutes 10x seated clam Equipment Used L2 TB Reps/Minutes 10x Standing Exercises hurdles Equipment Used wall bar, PT CGA Reps/Minutes 4 hudles x 3 Comments has difficulty clearing with trailing leg Manual Therapy Treatment Consent Patient gave verbal consent for manual Yes treatment Soft Tissue Mobilization IT band Body Location L Mobilization Type Myofascial Release Intensity/Depth Moderate Body Position Sidelying piriformis Body Location L Mobilization Type Myofascial Release,Strumming Intensity/Depth mod Body Position right sidelying lumbar paraspinals Mobilization Type Myofascial Release,Strumming Intensity/Depth mod Body Position right sidelyihng Self-Care/Home Management Treatment Education Patient Education Body Mechanics,Home Exercise Program,Pain Management, Posture PT-OP-R Modalities Start: 03/06/24 17:15 Freq: Status: Active Protocol: Document 04/21/24 09:00 [facility] (Rec: 04/21/24 09:50 [facility] [id number]) Hot Pack/Cold Pack Treatment Hot Pack Location left piriformis and IT band Patient Position Sidelying Patient Tolerance Good Iontophoresis Treatment left Gr trochanter Treatment Medication Dexamethasone (-) Medication Amount (mL) (ml) 1 Medication Dosage 4 mg/ml Treatment Polarity - Active Electrode Placement gr trochanter PT-OP-T Assessment and Plan Start: 03/06/24 17:15 Freq: Status: Active Protocol: Document 04/21/24 09:00 [facility] (Rec: 04/21/24 09:50 [facility] [id number]) Physical Therapy Assessment Impairments Impairments Activity Tolerance,Soft Tissue Mobility,Strength Goals One Impairment low back pain with radicular symptoms left LE Impairment as high as 9/10 Short Term Goal (STG) decrease pain to no greater than 5/10 with all usual activities STG Duration 04/24/24 Fpc Goal (LTG) decrease pain to no greater than 3/10 with all usual activities to allow patient to return to PLF LTG Duration 06/10/24 Three Impairment weakness Impairment core and LE weakness left greater than right Short Term Goal (STG) Patient to be instructed in HEP for purposes of strerngthening and core stabilization STG Duration 04/24/24 Vibrator Equipment Tester Goal (LTG) Patient to be independent and compliant with HEP and demonstrate improvement in all muscle groups to at least 4+/ 5 to allow her to return to usual activities. LTG Duration 06/10/24 Two Impairment Activity tolerance Impairment Constant pain limiting sleep and all physical activity moderately by 75% per patient report. Oswestry disability index score. 57% Short Term Goal (STG) Decrease Oswestry score to no greater than 45% as measure of improved activity tolerance. STG Duration 04/24/24 Fpc Goal (LTG) Decrease Oswestry score to no greater than 25% as measure of improved activity tolerance and quality of life. Patient activity tolerance will improve sufficient to allow her to return to maintenance cardiac and pulmonary rehab program. LTG Duration 06/10/24 Progress Towards Goals Progress Towards Goals Slow Progress due to Medical Issues Assessment Summary Assessment increased shuttle leg press to 62 lbs with double leg press. Physical Therapy Plan Frequency and Duration Frequency of Treatment 2x/Week Duration of treatment (weeks) 12 Plan of Care Start Date 03/10/24 Plan of Care End Date 06/10/24 Therapeutic Interventions Therapeutic Interventions Home Exercise Program,Manual Therapy,Patient/Caregiver Education,Self-Care/Home Management,Soft Tissue Mobilization,Taping, Therapeutic Activities, Therapeutic Exercises Modalities Cold Pack/Ice Massage,Electric Stimulation,Hot Packs, Infrared Therapy,Ultrasound Next Visit Focus/Plan Next Note Type Treatment Note Next Visit Plan Continue progressive ther ex as tolerated. Modalities and manual therapy PRN pain. hurdles per patient request
--- NOTE | 2024-04-28 14:55 | PT.OTN ---
Current Diagnoses Other chronic pain (04/28/24) Lumbago with sciatica, left side (04/28/24) Pain in thoracic spine (04/28/24) Weakness (04/28/24) Physical Therapy Treatment Note PT-OP-A Visit Information Start: 03/06/24 17:15 Freq: Status: Active Protocol: Document 04/28/24 09:02 SAK (Rec: 04/28/24 09:47 [facility] [id number]) Out-Patient Physical Therapy Visit Information Visit Information Visit Type Treatment Note Visit Start Time 09:03 Visit Number 6 Evaluation Information Evaluation Date 03/10/24 Precautions Precautions cardiac,long covid PMH: Hypertensive urgency History of [place] (myocardial infarction) (~2020) History of CVA ( cerebrovascular accident) Concussion COVID-19 Sleep apnea Shoulder pain Diastolic heart failure Atrial fibrillation Iron deficiency anemia Ocular migraine History of stent insertion of renal artery Bone lesion Left renal artery stenosis (~ 11/22/20) 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 (~) Parumbilical hernia (~11/22/20 ) Hiatal hernia (~11/22/20) Osteopenia of femoral neck, bilateral (~02/2019) Macular degeneration, age related, nonexudative Dyslipidemia Thyroid nodule Proteus enteritis (~2018) EBV infection (~1962) Coccidioidomycosis (~1962) Heterozygous MTHFR mutation C677T Renal artery atherosclerosis ( 09/22/11) Systemic lupus erythematosus Atypical nevus of abdominal wall Lipoma Angioedema Statin intolerance Elevated coronary artery calcium score Prinzmetal's angina (1975) Hypertension CAD (coronary artery disease) (1979) Shingles (2016) Asthma History of recurrent pneumonia Severe obstructive sleep apnea -hypopnea syndrome (10/22/15) PT-OP-B Current Condition Start: 03/06/24 17:15 Freq: Status: Active Protocol: Document 04/28/24 09:02 SAK (Rec: 04/28/24 09:47 [facility] [id number]) Current Condition History of Current Condition Onset Date December Current Complaints worsened back pain History of Current Condition Continues to struggle with long Covid; weakness and low energy. Couldn't continue with pulmonary rehab due to all medical issues. HIstory neck, thoracic, lumbar pain. States she was traveling and staying at friend's house, couldn't get out of friend's bed felt like my stomach was stuck to my spine. Difficulty getting in and out of friend's car. several times but pain worsened and has persisted. Only thing that helped was sitting on couch with semi firm pillow behind. Now very difficult still to get up. Can't lay on left side, still has stabbing pain right IT band. Back pain has now moved to her left buttock. Has had OMT treatments but had spasm in spine during one of her appts. can just bend over and has spasms, takes a long time to go away. Pain worst in am. Sleeps on right side but sometimes revs up IT band. A little better in am after walking a little bit. States she is cold a lot, tends to cross her arms across her chest due to this. 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 Won't take pain medication. Prior Treatments and Tests x-ray: negative EMG: Personal Factors Other Personal Factors That May Effect long covid, poor activity Therapy/Recovery tolerance cardiac and pulmonary dysfunction obesity PT-OP-C Subjective Start: 03/06/24 17:15 Freq: Status: Active Protocol: Document 04/28/24 09:02 [facility] (Rec: 04/28/24 09:47 [facility] [id number]) OP-PT Subjective Patient Comments Patient Comments C/o continued weakness, could hardly walk at all at local festival over the weekend. Feels weakness throughout, difficulty stepping over things. States neurologist contacted her through portal about MRI showing severe issues C45. Also may want to get MRI lumbar spine. States face and lips get numb, sometimes when wakes up left side numbness throughout. PT-OP-F Manual Assessment Start: 03/06/24 17:15 Freq: Status: Active Protocol: Document 03/10/24 17:17 [facility] (Rec: 03/13/24 17:44 [facility] [id number]) Manual Assessments Soft Tissue Assessment Soft Tissue Mobility Assessment tightnes lumbar paraspinals, left piriformis PT-OP-G Mobility & Gait Start: 03/06/24 17:15 Freq: Status: Active Protocol: Document 03/10/24 17:17 SAK (Rec: 03/13/24 17:44 [facility] [id number]) OP Mobility Evaluation Bed Mobility Rolling patient unable to lay down Transfers Sit to Stand painful Car Transfers painful OP Gait Assessment Gait Gait Assistance Required: Independent Assistive Devices Assistive Device None Gait Deviations General Gait Pattern Antalgic,Decreased Stride Length,Decreased Feet Clearance,Wide Based Gait Factors Limiting Gait Function Factors Limiting Gait Function Decreased Activity Tolerance, Decreased Strength,Pain Stair Climbing Evaluation Technique/Endurance Stair Climbing Technique Step to Step PT-OP-H Neuro Start: 03/06/24 17:15 Freq: Status: Active Protocol: Document 03/10/24 17:17 [facility] (Rec: 03/13/24 17:44 [facility] [id number]) Sensation Evaluation Gross Sensation Gross Sensation Left LE Impaired Sensation Description Paresthesia,Numbness,Tingling PT-OP-J Posture/Palpation/Skin Start: 03/06/24 17:15 Freq: Status: Active Protocol: Document 03/10/24 17:17 [facility] (Rec: 03/13/24 17:44 [facility] [id number]) Posture Evaluation Position Standing Head/C-Spine Posture Forward Head T-Spine Posture Increased Kyphosis Shoulder Posture (L) Rounded,(R) Rounded Scapula Posture (L) Protracted,(R) Protracted Arm Posture (L) Internally Rotated,(R) Internally Rotated Pelvis Posture Anteriorly Tilted Weight Distribution Weight Shifted Right Hip Posture (L) Externally Rotated Knee Posture (L) Genu Valgus,(R) Genu Valgus Palpation Assessment Location lumbar spine Palpation Location L45 Palpation Findings Soft Tissue Tightness, Tenderness PT-OP-K Range of Motion Start: 03/06/24 17:15 Freq: Status: Active Protocol: Document 03/10/24 17:17 [facility] (Rec: 03/13/24 17:44 [facility] [id number]) Lumbar Spine Range of Motion Lumbar Spine Active Testing Position Standing ROM Limitations Soft Tissue Tightness,Pain Comments mod decrease all motions due to pain Hip Goniometric Range of Motion Hip Left Hip ROM WFL No Flexion w/Knee Flexed 100 Extension 0 Abduction 20 Internal Rotation 10 External Rotation 60 Right Active Hip ROM WFL Yes Hip ROM Limitations Hip ROM Limitations Soft Tissue Tightness,Pain Knee Goniometric Range of Motion Knee luisa Knee ROM WFL Yes Ankle and Foot Goniometric Range of Motion Ankle and Foot luisa Ankle/Foot ROM WFL Yes PT-OP-M Strength Start: 03/06/24 17:15 Freq: Status: Active Protocol: Document 03/10/24 17:17 [facility] (Rec: 03/13/24 17:44 [facility] [id number]) Hip Strength Hip Manual Muscle Testing Right Flexion (L2) 4 Good Extension (S1) 3+ Fair+ Abduction 4- Good- Adduction 4 Good External Rotation 4- Good- Internal Rotation 4 Good Left Flexion (L2) 4 Good Extension (S1) 3- Fair- Abduction 3- Fair- Adduction 4- Good- External Rotation 4- Good- Internal Rotation 4- Good- PT-OP-Q Treatments Start: 03/06/24 17:15 Freq: Status: Active Protocol: Document 04/28/24 09:02 [facility] (Rec: 04/28/24 09:47 [facility] [id number]) Cardio Equipment Recumbent Stepper (Sci-Fit) Duration (Minutes) 17 Resistance 1 Seat Position 10 Other rpm 40, 1.37 mi Gym Equipment Shuttle Recovery Unilateral Squats Resistance 37 Shuttle Recovery Platform Stable Reps/Time 10x 2 Bilateral Squats Details cues for quad and gluteal activation Resistance 50 Shuttle Recovery Platform Stable Reps/Time 10x2 Shuttle Balance chains red, cords loose Details balance and weight shift fwd/ bck with feet sta, side toggered, side to side Reps/Duration 3 min Therapeutic Ball 65 cm ball Reps/Duration 10 min Comments pelvic tilts, circles, LAQ, lateral tilt, ball squeeze, lean backs, bounces chair one one side, table on other for safety. Refilled patient's own therapy ball for use at home. Therapeutic Exercises Supine Exercises pec stretch Reps/Minutes 2x30 Standing Exercises hurdles Equipment Used wall bar, PT CGA Reps/Minutes 4 hudles x 4 Comments improved ease today Gait Training Gait Activity stairs Description 4, 6 Distance/Duration 10 ft x 2 Manual Therapy Treatment Soft Tissue Mobilization lumbar paraspinals Mobilization Type Myofascial Release,Strumming Intensity/Depth mod Body Position right sidelyihng Self-Care/Home Management Treatment Education Patient Education Body Mechanics,Home Exercise Program,Pain Management, Posture PT-OP-R Modalities Start: 03/06/24 17:15 Freq: Status: Active Protocol: Document 04/28/24 09:02 [facility] (Rec: 04/28/24 14:55 [facility] [id number]) Hot Pack/Cold Pack Treatment Hot Pack Location left piriformis and IT band Patient Position Sidelying Patient Tolerance Good PT-OP-T Assessment and Plan Start: 03/06/24 17:15 Freq: Status: Active Protocol: Document 04/28/24 09:02 [facility] (Rec: 04/28/24 09:47 [facility] [id number]) Physical Therapy Assessment Impairments Impairments Activity Tolerance,Soft Tissue Mobility,Strength Goals One Impairment low back pain with radicular symptoms left LE Impairment as high as 9/10 Short Term Goal (STG) decrease pain to no greater than 5/10 with all usual activities STG Duration 04/24/24 First Calender Worker Goal (LTG) decrease pain to no greater than 3/10 with all usual activities to allow patient to return to PLF LTG Duration 06/10/24 Three Impairment weakness Impairment core and LE weakness left greater than right Short Term Goal (STG) Patient to be instructed in HEP for purposes of strerngthening and core stabilization STG Duration 04/24/24 First Calender Worker Goal (LTG) Patient to be independent and compliant with HEP and demonstrate improvement in all muscle groups to at least 4+/ 5 to allow her to return to usual activities. LTG Duration 06/10/24 Two Impairment Activity tolerance Impairment Constant pain limiting sleep and all physical activity moderately by 75% per patient report. Oswestry disability index score. 57% Short Term Goal (STG) Decrease Oswestry score to no greater than 45% as measure of improved activity tolerance. STG Duration 04/24/24 First Calender Worker Goal (LTG) Decrease Oswestry score to no greater than 25% as measure of improved activity tolerance and quality of life. Patient activity tolerance will improve sufficient to allow her to return to maintenance cardiac and pulmonary rehab program. LTG Duration 06/10/24 Progress Towards Goals Progress Towards Goals Slow Progress due to Medical Issues Assessment Summary Assessment Improved ease with hurdles. Able to ascend and descend 4 and 6 stairs with use of railings with fatigue but doing alternating pattern. Patient to get PT reports from prior MRI done at [facility] . Physical Therapy Plan Frequency and Duration Frequency of Treatment 2x/Week Duration of treatment (weeks) 12 Plan of Care Start Date 03/10/24 Plan of Care End Date 06/10/24 Therapeutic Interventions Therapeutic Interventions Home Exercise Program,Manual Therapy,Patient/Caregiver Education,Self-Care/Home Management,Soft Tissue Mobilization,Taping, Therapeutic Activities, Therapeutic Exercises Modalities Cold Pack/Ice Massage,Electric Stimulation,Hot Packs, Infrared Therapy,Ultrasound Next Visit Focus/Plan Next Note Type Treatment Note Next Visit Plan Continue progressive ther ex as tolerated. Modalities and manual therapy PRN pain. Further postural correction exercises. Add LTR, supine ball press for core activation .
--- NOTE | 2024-05-01 16:48 | PT.OTN ---
Current Diagnoses Other chronic pain (05/01/24) Lumbago with sciatica, left side (05/01/24) Pain in thoracic spine (05/01/24) Weakness (05/01/24) Physical Therapy Treatment Note PT-OP-A Visit Information Start: 03/06/24 17:15 Freq: Status: Active Protocol: Document 05/01/24 08:58 SAK (Rec: 05/01/24 09:49 [facility] [id number]) Out-Patient Physical Therapy Visit Information Visit Information Visit Type Treatment Note Visit Start Time 09:00 Visit Stop Time 09:56 Visit Number 7 Evaluation Information Evaluation Date 03/10/24 Precautions Precautions cardiac,long covid PMH: Hypertensive urgency History of [place] (myocardial infarction) (~2020) History of CVA ( cerebrovascular accident) Concussion COVID-19 Sleep apnea Shoulder pain Diastolic heart failure Atrial fibrillation Iron deficiency anemia Ocular migraine History of stent insertion of renal artery Bone lesion Left renal artery stenosis (~ 11/22/20) 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 (~) Parumbilical hernia (~11/22/20 ) Hiatal hernia (~11/22/20) Osteopenia of femoral neck, bilateral (~02/2019) Macular degeneration, age related, nonexudative Dyslipidemia Thyroid nodule Proteus enteritis (~2018) EBV infection (~1962) Coccidioidomycosis (~1962) Heterozygous MTHFR mutation C677T Renal artery atherosclerosis ( 09/22/11) Systemic lupus erythematosus Atypical nevus of abdominal wall Lipoma Angioedema Statin intolerance Elevated coronary artery calcium score Prinzmetal's angina (1975) Hypertension CAD (coronary artery disease) (1979) Shingles (2016) Asthma History of recurrent pneumonia Severe obstructive sleep apnea -hypopnea syndrome (10/22/15) PT-OP-B Current Condition Start: 03/06/24 17:15 Freq: Status: Active Protocol: Document 05/01/24 08:58 [facility]AK (Rec: 05/01/24 09:49 [facility] [id number]) Current Condition History of Current Condition Onset Date December Current Complaints worsened back pain History of Current Condition Continues to struggle with long Covid; weakness and low energy. Couldn't continue with pulmonary rehab due to all medical issues. HIstory neck, thoracic, lumbar pain. States she was traveling and staying at friend's house, couldn't get out of friend's bed felt like my stomach was stuck to my spine. Difficulty getting in and out of friend's car. several times but pain worsened and has persisted. Only thing that helped was sitting on couch with semi firm pillow behind. Now very difficult still to get up. Can't lay on left side, still has stabbing pain right IT band. Back pain has now moved to her left buttock. Has had OMT treatments but had spasm in spine during one of her appts. can just bend over and has spasms, takes a long time to go away. Pain worst in am. Sleeps on right side but sometimes revs up IT band. A little better in am after walking a little bit. States she is cold a lot, tends to cross her arms across her chest due to this. 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 Won't take pain medication. Prior Treatments and Tests x-ray: negative EMG: Personal Factors Other Personal Factors That May Effect long covid, poor activity Therapy/Recovery tolerance cardiac and pulmonary dysfunction obesity PT-OP-C Subjective Start: 03/06/24 17:15 Freq: Status: Active Protocol: Document 05/01/24 08:58 [facility] (Rec: 05/01/24 09:49 [facility] [id number]) OP-PT Subjective Patient Comments Patient Comments C/o whole body feels like it is shaking at times, so weak. Has messaged back to neurologist and hasn't heard back PT-OP-F Manual Assessment Start: 03/06/24 17:15 Freq: Status: Active Protocol: Document 03/10/24 17:17 [facility] (Rec: 03/13/24 17:44 [facility] [id number]) Manual Assessments Soft Tissue Assessment Soft Tissue Mobility Assessment tightnes lumbar paraspinals, left piriformis PT-OP-G Mobility & Gait Start: 03/06/24 17:15 Freq: Status: Active Protocol: Document 03/10/24 17:17 [facility] (Rec: 03/13/24 17:44 [facility] [id number]) OP Mobility Evaluation Bed Mobility Rolling patient unable to lay down Transfers Sit to Stand painful Car Transfers painful OP Gait Assessment Gait Gait Assistance Required: Independent Assistive Devices Assistive Device None Gait Deviations General Gait Pattern Antalgic,Decreased Stride Length,Decreased Feet Clearance,Wide Based Gait Factors Limiting Gait Function Factors Limiting Gait Function Decreased Activity Tolerance, Decreased Strength,Pain Stair Climbing Evaluation Technique/Endurance Stair Climbing Technique Step to Step PT-OP-H Neuro Start: 03/06/24 17:15 Freq: Status: Active Protocol: Document 03/10/24 17:17 [facility] (Rec: 03/13/24 17:44 [facility] [id number]) Sensation Evaluation Gross Sensation Gross Sensation Left LE Impaired Sensation Description Paresthesia,Numbness,Tingling PT-OP-J Posture/Palpation/Skin Start: 03/06/24 17:15 Freq: Status: Active Protocol: Document 03/10/24 17:17 [facility]AK (Rec: 03/13/24 17:44 [facility] [id number]) Posture Evaluation Position Standing Head/C-Spine Posture Forward Head T-Spine Posture Increased Kyphosis Shoulder Posture (L) Rounded,(R) Rounded Scapula Posture (L) Protracted,(R) Protracted Arm Posture (L) Internally Rotated,(R) Internally Rotated Pelvis Posture Anteriorly Tilted Weight Distribution Weight Shifted Right Hip Posture (L) Externally Rotated Knee Posture (L) Genu Valgus,(R) Genu Valgus Palpation Assessment Location lumbar spine Palpation Location L45 Palpation Findings Soft Tissue Tightness, Tenderness PT-OP-K Range of Motion Start: 03/06/24 17:15 Freq: Status: Active Protocol: Document 03/10/24 17:17 [facility] (Rec: 03/13/24 17:44 [facility] [id number]) Lumbar Spine Range of Motion Lumbar Spine Active Testing Position Standing ROM Limitations Soft Tissue Tightness,Pain Comments mod decrease all motions due to pain Hip Goniometric Range of Motion Hip Left Hip ROM WFL No Flexion w/Knee Flexed 100 Extension 0 Abduction 20 Internal Rotation 10 External Rotation 60 Right Active Hip ROM WFL Yes Hip ROM Limitations Hip ROM Limitations Soft Tissue Tightness,Pain Knee Goniometric Range of Motion Knee luisa Knee ROM WFL Yes Ankle and Foot Goniometric Range of Motion Ankle and Foot luisa Ankle/Foot ROM WFL Yes PT-OP-M Strength Start: 03/06/24 17:15 Freq: Status: Active Protocol: Document 03/10/24 17:17 [facility] (Rec: 03/13/24 17:44 [facility] [id number]) Hip Strength Hip Manual Muscle Testing Right Flexion (L2) 4 Good Extension (S1) 3+ Fair+ Abduction 4- Good- Adduction 4 Good External Rotation 4- Good- Internal Rotation 4 Good Left Flexion (L2) 4 Good Extension (S1) 3- Fair- Abduction 3- Fair- Adduction 4- Good- External Rotation 4- Good- Internal Rotation 4- Good- PT-OP-Q Treatments Start: 03/06/24 17:15 Freq: Status: Active Protocol: Document 05/01/24 08:58 [facility] (Rec: 05/01/24 09:49 [facility] [id number]) Cardio Equipment Recumbent Stepper (Sci-Fit) Duration (Minutes) 15 Resistance 1-1.2 Seat Position 10 Other rpm 40, 1.28 mi Gym Equipment Shuttle Recovery Unilateral Squats Resistance 37 Shuttle Recovery Platform Stable Reps/Time 10x 2 Bilateral Squats Details cues for quad and gluteal activation Resistance 62 Shuttle Recovery Platform Stable Reps/Time 10x2 Shuttle Balance chains red, cords loose Details balance and weight shift fwd/ bck with feet sta, side stggered, side to side Reps/Duration 3 min Therapeutic Exercises Sitting Exercises ball press Equipment Used 65 cm ball Reps/Minutes 10x Standing Exercises Theraband Standing Exercise Name row, shld ext Reps/Minutes 10x5 Comments verbal and tactile cues for core activation, scap retraction hurdles Equipment Used wall bar, PT CGA Reps/Minutes 6 hudles x 4 Comments caught trailing legs on cheryl x 2 Gait Training Gait Activity stairs Description 6 Distance/Duration 5 x 2 Treatment Focus cues for gluteal activation Comments single railing Manual Therapy Treatment Soft Tissue Mobilization lumbar paraspinals Mobilization Type Myofascial Release,Strumming Intensity/Depth mod Body Position right sidelying Self-Care/Home Management Treatment Education Patient Education Body Mechanics,Home Exercise Program,Pain Management, Posture PT-OP-R Modalities Start: 03/06/24 17:15 Freq: Status: Active Protocol: Document 05/01/24 08:58 [facility] (Rec: 05/01/24 16:48 [facility] [id number]) Hot Pack/Cold Pack Treatment Hot Pack Location lumbar spine Patient Position Sitting Patient Tolerance Good PT-OP-T Assessment and Plan Start: 03/06/24 17:15 Freq: Status: Active Protocol: Document 05/01/24 08:58 [facility] (Rec: 05/01/24 09:49 [facility] [id number]) Physical Therapy Assessment Impairments Impairments Activity Tolerance,Soft Tissue Mobility,Strength Goals One Impairment low back pain with radicular symptoms left LE Impairment as high as 9/10 Short Term Goal (STG) decrease pain to no greater than 5/10 with all usual activities 05/01/24: min goal progress STG Duration 04/24/24 [facility] Goal (LTG) decrease pain to no greater than 3/10 with all usual activities to allow patient to return to PLF LTG Duration 06/10/24 Three Impairment weakness Impairment core and LE weakness left greater than right Short Term Goal (STG) Patient to be instructed in HEP for purposes of strerngthening and core stabilization 05/01/24: goal met, ongoing progression STG Duration goal met [facility] Goal (LTG) Patient to be independent and compliant with HEP and demonstrate improvement in all muscle groups to at least 4+/ 5 to allow her to return to usual activities. LTG Duration 06/10/24 Two Impairment Activity tolerance Impairment Constant pain limiting sleep and all physical activity moderately by 75% per patient report. Oswestry disability index score. 57% Short Term Goal (STG) Decrease Oswestry score to no greater than 45% as measure of improved activity tolerance. 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 Patient activity tolerance will improve sufficient to allow her to return to maintenance cardiac and pulmonary rehab program. LTG Duration 06/10/24 Progress Towards Goals Progress Towards Goals Slow Progress due to Medical Issues Assessment Summary Assessment Overall improved activity tolerance with therapy today but patient continues to report severe fatigue and weakness, shaking weakness of whole body. Medical issues complicating physical therapy, patient awaiting response from neurologist. Physical Therapy Plan Frequency and Duration Frequency of Treatment 2x/Week Duration of treatment (weeks) 12 Plan of Care Start Date 03/10/24 Plan of Care End Date 06/10/24 Therapeutic Interventions Therapeutic Interventions Home Exercise Program,Manual Therapy,Patient/Caregiver Education,Self-Care/Home Management,Soft Tissue Mobilization,Taping, Therapeutic Activities, Therapeutic Exercises Modalities Cold Pack/Ice Massage,Electric Stimulation,Hot Packs, Infrared Therapy,Ultrasound Next Visit Focus/Plan Next Note Type Treatment Note Next Visit Plan Continue progressive ther ex as tolerated. Modalities and manual therapy PRN pain. Further postural correction exercises. Add LTR, review ball press.
--- NOTE | 2024-05-12 16:08 | PT.OTN ---
Current Diagnoses Other chronic pain (05/12/24) Lumbago with sciatica, left side (05/12/24) Pain in thoracic spine (05/12/24) Weakness (05/12/24) Physical Therapy Treatment Note PT-OP-A Visit Information Start: 03/06/24 17:15 Freq: Status: Active Protocol: Document 05/12/24 09:03 [facility] (Rec: 05/12/24 09:41 [facility] [id number]) Out-Patient Physical Therapy Visit Information Visit Information Visit Type Treatment Note Visit Start Time 08:45 Visit Stop Time 09:56 Visit Number 8 Evaluation Information Evaluation Date 03/10/24 Precautions Precautions cardiac,long covid PMH: Hypertensive urgency History of [place] (myocardial infarction) (~2020) History of CVA ( cerebrovascular accident) Concussion COVID-19 Sleep apnea Shoulder pain Diastolic heart failure Atrial fibrillation Iron deficiency anemia Ocular migraine History of stent insertion of renal artery Bone lesion Left renal artery stenosis (~ 11/22/20) 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 (~) Parumbilical hernia (~11/22/20 ) Hiatal hernia (~11/22/20) Osteopenia of femoral neck, bilateral (~02/2019) Macular degeneration, age related, nonexudative Dyslipidemia Thyroid nodule Proteus enteritis (~2018) EBV infection (~1962) Coccidioidomycosis (~1962) Heterozygous MTHFR mutation C677T Renal artery atherosclerosis ( 09/22/11) Systemic lupus erythematosus Atypical nevus of abdominal wall Lipoma Angioedema Statin intolerance Elevated coronary artery calcium score Prinzmetal's angina (1975) Hypertension CAD (coronary artery disease) (1979) Shingles (2016) Asthma History of recurrent pneumonia Severe obstructive sleep apnea -hypopnea syndrome (10/22/15) PT-OP-B Current Condition Start: 03/06/24 17:15 Freq: Status: Active Protocol: Document 05/12/24 09:03 SAK (Rec: 05/12/24 09:41 [facility] [id number]) Current Condition History of Current Condition Onset Date December Current Complaints worsened back pain History of Current Condition Continues to struggle with long Covid; weakness and low energy. Couldn't continue with pulmonary rehab due to all medical issues. HIstory neck, thoracic, lumbar pain. States she was traveling and staying at friend's house, couldn't get out of friend's bed felt like my stomach was stuck to my spine. Difficulty getting in and out of friend's car. several times but pain worsened and has persisted. Only thing that helped was sitting on couch with semi firm pillow behind. Now very difficult still to get up. Can't lay on left side, still has stabbing pain right IT band. Back pain has now moved to her left buttock. Has had OMT treatments but had spasm in spine during one of her appts. can just bend over and has spasms, takes a long time to go away. Pain worst in am. Sleeps on right side but sometimes revs up IT band. A little better in am after walking a little bit. States she is cold a lot, tends to cross her arms across her chest due to this. 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 Won't take pain medication. Prior Treatments and Tests x-ray: negative EMG: Personal Factors Other Personal Factors That May Effect long covid, poor activity Therapy/Recovery tolerance cardiac and pulmonary dysfunction obesity PT-OP-C Subjective Start: 03/06/24 17:15 Freq: Status: Active Protocol: Document 05/12/24 16:07 [facility] (Rec: 05/12/24 16:08 [facility] [id number]) OP-PT Subjective Patient Comments Patient Comments Patient had episode of angina over the weekend while seated in her chair, did not respond to nitro so went to ER. Having angiogram tomorrow. Wants to continue with PT, will let PT know if not feeling well. PT-OP-F Manual Assessment Start: 03/06/24 17:15 Freq: Status: Active Protocol: Document 03/10/24 17:17 [facility] (Rec: 03/13/24 17:44 [facility] [id number]) Manual Assessments Soft Tissue Assessment Soft Tissue Mobility Assessment tightnes lumbar paraspinals, left piriformis PT-OP-G Mobility & Gait Start: 03/06/24 17:15 Freq: Status: Active Protocol: Document 03/10/24 17:17 [facility] (Rec: 03/13/24 17:44 [facility] [id number]) OP Mobility Evaluation Bed Mobility Rolling patient unable to lay down Transfers Sit to Stand painful Car Transfers painful OP Gait Assessment Gait Gait Assistance Required: Independent Assistive Devices Assistive Device None Gait Deviations General Gait Pattern Antalgic,Decreased Stride Length,Decreased Feet Clearance,Wide Based Gait Factors Limiting Gait Function Factors Limiting Gait Function Decreased Activity Tolerance, Decreased Strength,Pain Stair Climbing Evaluation Technique/Endurance Stair Climbing Technique Step to Step PT-OP-H Neuro Start: 03/06/24 17:15 Freq: Status: Active Protocol: Document 03/10/24 17:17 [facility] (Rec: 03/13/24 17:44 [facility] [id number]) Sensation Evaluation Gross Sensation Gross Sensation Left LE Impaired Sensation Description Paresthesia,Numbness,Tingling PT-OP-J Posture/Palpation/Skin Start: 03/06/24 17:15 Freq: Status: Active Protocol: Document 03/10/24 17:17 [facility] (Rec: 03/13/24 17:44 [facility] [id number]) Posture Evaluation Position Standing Head/C-Spine Posture Forward Head T-Spine Posture Increased Kyphosis Shoulder Posture (L) Rounded,(R) Rounded Scapula Posture (L) Protracted,(R) Protracted Arm Posture (L) Internally Rotated,(R) Internally Rotated Pelvis Posture Anteriorly Tilted Weight Distribution Weight Shifted Right Hip Posture (L) Externally Rotated Knee Posture (L) Genu Valgus,(R) Genu Valgus Palpation Assessment Location lumbar spine Palpation Location L45 Palpation Findings Soft Tissue Tightness, Tenderness PT-OP-K Range of Motion Start: 03/06/24 17:15 Freq: Status: Active Protocol: Document 03/10/24 17:17 [facility] (Rec: 03/13/24 17:44 [facility] [id number]) Lumbar Spine Range of Motion Lumbar Spine Active Testing Position Standing ROM Limitations Soft Tissue Tightness,Pain Comments mod decrease all motions due to pain Hip Goniometric Range of Motion Hip Left Hip ROM WFL No Flexion w/Knee Flexed 100 Extension 0 Abduction 20 Internal Rotation 10 External Rotation 60 Right Active Hip ROM WFL Yes Hip ROM Limitations Hip ROM Limitations Soft Tissue Tightness,Pain Knee Goniometric Range of Motion Knee luisa Knee ROM WFL Yes Ankle and Foot Goniometric Range of Motion Ankle and Foot luisa Ankle/Foot ROM WFL Yes PT-OP-M Strength Start: 03/06/24 17:15 Freq: Status: Active Protocol: Document 03/10/24 17:17 [facility] (Rec: 03/13/24 17:44 [facility] [id number]) Hip Strength Hip Manual Muscle Testing Right Flexion (L2) 4 Good Extension (S1) 3+ Fair+ Abduction 4- Good- Adduction 4 Good External Rotation 4- Good- Internal Rotation 4 Good Left Flexion (L2) 4 Good Extension (S1) 3- Fair- Abduction 3- Fair- Adduction 4- Good- External Rotation 4- Good- Internal Rotation 4- Good- PT-OP-Q Treatments Start: 03/06/24 17:15 Freq: Status: Active Protocol: Document 05/12/24 09:03 [facility] (Rec: 05/12/24 09:41 [facility] [id number]) Cardio Equipment Recumbent Stepper (Sci-Fit) Duration (Minutes) 20 Resistance 1-1.5 Seat Position 10 Other 2 mets, 1.73 miles Gym Equipment Shuttle Recovery Unilateral Squats Resistance 37 Shuttle Recovery Platform Stable Reps/Time 10x 2 Bilateral Squats Details cues for quad and gluteal activation Resistance 62 Shuttle Recovery Platform Stable Reps/Time 10x2 Shuttle Balance chains red, cords loose Details balance and weight shift fwd/ bck with feet sta, side stggered, side to side Reps/Duration 3 min Therapeutic Ball 65 cm ball Comments verbal review HEP Therapeutic Exercises Supine Exercises pec stretch Reps/Minutes 2x30 Sitting Exercises ball press Equipment Used 65 cm ball Reps/Minutes 10x Standing Exercises hurdles Equipment Used wall bar, PT CGA Reps/Minutes 6 hudles x 6 Comments caught trailing legs on cheryl x 2 Manual Therapy Treatment Soft Tissue Mobilization lumbar paraspinals Mobilization Type Myofascial Release,Strumming Intensity/Depth mod Body Position Sitting Self-Care/Home Management Treatment Education Patient Education Body Mechanics,Home Exercise Program,Pain Management, Posture PT-OP-R Modalities Start: 03/06/24 17:15 Freq: Status: Active Protocol: Document 05/12/24 09:03 [facility] (Rec: 05/12/24 09:41 [facility] [id number]) Hot Pack/Cold Pack Treatment Hot Pack Location lumbar spine Patient Position Sitting Patient Tolerance Good PT-OP-T Assessment and Plan Start: 03/06/24 17:15 Freq: Status: Active Protocol: Document 05/12/24 09:03 [facility] (Rec: 05/12/24 09:41 [facility] [id number]) Physical Therapy Assessment Impairments Impairments Activity Tolerance,Soft Tissue Mobility,Strength Goals One Impairment low back pain with radicular symptoms left LE Impairment as high as 9/10 Short Term Goal (STG) decrease pain to no greater than 5/10 with all usual activities 05/01/24: min goal progress STG Duration 04/24/24 Media Law Faculty Member Goal (LTG) decrease pain to no greater than 3/10 with all usual activities to allow patient to return to PLF LTG Duration 06/10/24 Three Impairment weakness Impairment core and LE weakness left greater than right Short Term Goal (STG) Patient to be instructed in HEP for purposes of strerngthening and core stabilization 05/01/24: goal met, ongoing progression STG Duration goal met Media Law Faculty Member Goal (LTG) Patient to be independent and compliant with HEP and demonstrate improvement in all muscle groups to at least 4+/ 5 to allow her to return to usual activities. LTG Duration 06/10/24 Two Impairment Activity tolerance Impairment Constant pain limiting sleep and all physical activity moderately by 75% per patient report. Oswestry disability index score. 57% Short Term Goal (STG) Decrease Oswestry score to no greater than 45% as measure of improved activity tolerance. 05/01/24: min progress STG Duration 04/24/24 Care Home Goal (LTG) Decrease Oswestry score to no greater than 25% as measure of improved activity tolerance and quality of life. Patient activity tolerance will improve sufficient to allow her to return to maintenance cardiac and pulmonary rehab program. LTG Duration 06/10/24 Progress Towards Goals Progress Towards Goals Slow Progress due to Medical Issues Assessment Summary Assessment Patient had episode of angina over the weekend while seated, didn't respond to nitro, in ER, having an angiogram tomorrow. Urged light exercise at this time, clarify any further guidance for PT with physician tomorrow after results. Physical Therapy Plan Frequency and Duration Frequency of Treatment 2x/Week Duration of treatment (weeks) 12 Plan of Care Start Date 03/10/24 Plan of Care End Date 06/10/24 Therapeutic Interventions Therapeutic Interventions Home Exercise Program,Manual Therapy,Patient/Caregiver Education,Self-Care/Home Management,Soft Tissue Mobilization,Taping, Therapeutic Activities, Therapeutic Exercises Modalities Cold Pack/Ice Massage,Electric Stimulation,Hot Packs, Infrared Therapy,Ultrasound Next Visit Focus/Plan Next Note Type Treatment Note Next Visit Plan Continue PT pending guidance from physician.
--- NOTE | 2024-05-19 11:05 | PT.OTN ---
Current Diagnoses Other chronic pain (05/19/24) Lumbago with sciatica, left side (05/19/24) Pain in thoracic spine (05/19/24) Weakness (05/19/24) Physical Therapy Treatment Note PT-OP-A Visit Information Start: 03/06/24 17:15 Freq: Status: Active Protocol: Document 05/19/24 09:06 [facility] (Rec: 05/19/24 09:45 [facility] [id number]) Out-Patient Physical Therapy Visit Information Visit Information Visit Type Treatment Note Visit Note BP 141/ 84 pre treatment, after exercise 146/81 Visit Start Time 09:00 Visit Stop Time 09:45 Visit Number 9 Evaluation Information Evaluation Date 03/10/24 Precautions Precautions cardiac,long covid PMH: Hypertensive urgency History of [place] (myocardial infarction) (~2020) History of CVA ( cerebrovascular accident) Concussion COVID-19 Sleep apnea Shoulder pain Diastolic heart failure Atrial fibrillation Iron deficiency anemia Ocular migraine History of stent insertion of renal artery Bone lesion Left renal artery stenosis (~ 11/22/20) 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 (~) Parumbilical hernia (~11/22/20 ) Hiatal hernia (~11/22/20) Osteopenia of femoral neck, bilateral (~02/2019) Macular degeneration, age related, nonexudative Dyslipidemia Thyroid nodule Proteus enteritis (~2018) EBV infection (~1962) Coccidioidomycosis (~1962) Heterozygous MTHFR mutation C677T Renal artery atherosclerosis ( 09/22/11) Systemic lupus erythematosus Atypical nevus of abdominal wall Lipoma Angioedema Statin intolerance Elevated coronary artery calcium score Prinzmetal's angina (1975) Hypertension CAD (coronary artery disease) (1979) Shingles (2016) Asthma History of recurrent pneumonia Severe obstructive sleep apnea -hypopnea syndrome (10/22/15) PT-OP-B Current Condition Start: 03/06/24 17:15 Freq: Status: Active Protocol: Document 05/19/24 09:06 [facility] (Rec: 05/19/24 09:45 [facility] [id number]) Current Condition History of Current Condition Onset Date December Current Complaints worsened back pain History of Current Condition Continues to struggle with long Covid; weakness and low energy. Couldn't continue with pulmonary rehab due to all medical issues. HIstory neck, thoracic, lumbar pain. States she was traveling and staying at friend's house, couldn't get out of friend's bed felt like my stomach was stuck to my spine. Difficulty getting in and out of friend's car. several times but pain worsened and has persisted. Only thing that helped was sitting on couch with semi firm pillow behind. Now very difficult still to get up. Can't lay on left side, still has stabbing pain right IT band. Back pain has now moved to her left buttock. Has had OMT treatments but had spasm in spine during one of her appts. can just bend over and has spasms, takes a long time to go away. Pain worst in am. Sleeps on right side but sometimes revs up IT band. A little better in am after walking a little bit. States she is cold a lot, tends to cross her arms across her chest due to this. 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 Won't take pain medication. Prior Treatments and Tests x-ray: negative EMG: PT-OP-C Subjective Start: 03/06/24 17:15 Freq: Status: Active Protocol: Document 05/19/24 09:06 [facility] (Rec: 05/19/24 09:45 [facility] [id number]) OP-PT Subjective Patient Comments Patient Comments Had angiogram, and has a heart monitor on now. Patient needs to leave early for blood test . Reports at curbs she uses the curb cuts because doesn't feel she can safely walk up curbs, scared of falling. PT-OP-F Manual Assessment Start: 03/06/24 17:15 Freq: Status: Active Protocol: Document 03/10/24 17:17 [facility] (Rec: 03/13/24 17:44 [facility] [id number]) Manual Assessments Soft Tissue Assessment Soft Tissue Mobility Assessment tightnes lumbar paraspinals, left piriformis PT-OP-G Mobility & Gait Start: 03/06/24 17:15 Freq: Status: Active Protocol: Document 03/10/24 17:17 [facility] (Rec: 03/13/24 17:44 [facility] [id number]) OP Mobility Evaluation Bed Mobility Rolling patient unable to lay down Transfers Sit to Stand painful Car Transfers painful OP Gait Assessment Gait Gait Assistance Required: Independent Assistive Devices Assistive Device None Gait Deviations General Gait Pattern Antalgic,Decreased Stride Length,Decreased Feet Clearance,Wide Based Gait Factors Limiting Gait Function Factors Limiting Gait Function Decreased Activity Tolerance, Decreased Strength,Pain Stair Climbing Evaluation Technique/Endurance Stair Climbing Technique Step to Step PT-OP-H Neuro Start: 03/06/24 17:15 Freq: Status: Active Protocol: Document 03/10/24 17:17 [facility] (Rec: 03/13/24 17:44 [facility] [id number]) Sensation Evaluation Gross Sensation Gross Sensation Left LE Impaired Sensation Description Paresthesia,Numbness,Tingling PT-OP-J Posture/Palpation/Skin Start: 03/06/24 17:15 Freq: Status: Active Protocol: Document 03/10/24 17:17 [facility] (Rec: 03/13/24 17:44 [facility] [id number]) Posture Evaluation Position Standing Head/C-Spine Posture Forward Head T-Spine Posture Increased Kyphosis Shoulder Posture (L) Rounded,(R) Rounded Scapula Posture (L) Protracted,(R) Protracted Arm Posture (L) Internally Rotated,(R) Internally Rotated Pelvis Posture Anteriorly Tilted Weight Distribution Weight Shifted Right Hip Posture (L) Externally Rotated Knee Posture (L) Genu Valgus,(R) Genu Valgus Palpation Assessment Location lumbar spine Palpation Location L45 Palpation Findings Soft Tissue Tightness, Tenderness PT-OP-K Range of Motion Start: 03/06/24 17:15 Freq: Status: Active Protocol: Document 03/10/24 17:17 [facility] (Rec: 03/13/24 17:44 [facility] [id number]) Lumbar Spine Range of Motion Lumbar Spine Active Testing Position Standing ROM Limitations Soft Tissue Tightness,Pain Comments mod decrease all motions due to pain Hip Goniometric Range of Motion Hip Left Hip ROM WFL No Flexion w/Knee Flexed 100 Extension 0 Abduction 20 Internal Rotation 10 External Rotation 60 Right Active Hip ROM WFL Yes Hip ROM Limitations Hip ROM Limitations Soft Tissue Tightness,Pain Knee Goniometric Range of Motion Knee luisa Knee ROM WFL Yes Ankle and Foot Goniometric Range of Motion Ankle and Foot luisa Ankle/Foot ROM WFL Yes PT-OP-M Strength Start: 03/06/24 17:15 Freq: Status: Active Protocol: Document 03/10/24 17:17 [facility] (Rec: 03/13/24 17:44 [facility] [id number]) Hip Strength Hip Manual Muscle Testing Right Flexion (L2) 4 Good Extension (S1) 3+ Fair+ Abduction 4- Good- Adduction 4 Good External Rotation 4- Good- Internal Rotation 4 Good Left Flexion (L2) 4 Good Extension (S1) 3- Fair- Abduction 3- Fair- Adduction 4- Good- External Rotation 4- Good- Internal Rotation 4- Good- PT-OP-Q Treatments Start: 03/06/24 17:15 Freq: Status: Active Protocol: Document 05/19/24 09:06 [facility] (Rec: 05/19/24 09:45 [facility] [id number]) Cardio Equipment Recumbent Stepper (Sci-Fit) Duration (Minutes) 5 Resistance 1-1.5 Seat Position 10 Gym Equipment Shuttle Recovery Unilateral Squats Resistance 37 Shuttle Recovery Platform Stable Reps/Time 10x 2 Bilateral Squats Details cues for quad and gluteal activation Resistance 62 Shuttle Recovery Platform Stable Reps/Time 10x2 Shuttle Balance chains red, cords loose Details balance and weight shift fwd/ bck with feet sta, side stggered, side to side Reps/Duration 3 min Therapeutic Exercises Standing Exercises step ups/downs Standing Exercise Name 4, 6, 8 boxes Equipment Used wall bar PRN Reps/Minutes 3x ea Comments CG to min assist hurdles Equipment Used wall bar, PT CGA Reps/Minutes 6 hudles x 6 Comments caught trailing legs on cheryl x 3 Manual Therapy Treatment Soft Tissue Mobilization lumbar paraspinals Mobilization Type Myofascial Release,Strumming Intensity/Depth mod Body Position Sitting Comments leaning forward onto pillows PT-OP-R Modalities Start: 03/06/24 17:15 Freq: Status: Active Protocol: Document 05/19/24 09:06 [facility] (Rec: 05/19/24 11:05 [facility] [id number]) Hot Pack/Cold Pack Treatment Hot Pack Location lumbar spine Patient Position Sitting Patient Tolerance Good PT-OP-T Assessment and Plan Start: 03/06/24 17:15 Freq: Status: Active Protocol: Document 05/19/24 09:06 [facility] (Rec: 05/19/24 09:45 [facility] [id number]) Physical Therapy Assessment Goals One Impairment low back pain with radicular symptoms left LE Impairment as high as 9/10 Short Term Goal (STG) decrease pain to no greater than 5/10 with all usual activities 05/01/24: min goal progress STG Duration 04/24/24 Technical Stenographer Goal (LTG) decrease pain to no greater than 3/10 with all usual activities to allow patient to return to PLF LTG Duration 06/10/24 Three Impairment weakness Impairment core and LE weakness left greater than right Short Term Goal (STG) Patient to be instructed in HEP for purposes of strerngthening and core stabilization 05/01/24: goal met, ongoing progression STG Duration goal met Technical Stenographer Goal (LTG) Patient to be independent and compliant with HEP and demonstrate improvement in all muscle groups to at least 4+/ 5 to allow her to return to usual activities. LTG Duration 06/10/24 Two Impairment Activity tolerance Impairment Constant pain limiting sleep and all physical activity moderately by 75% per patient report. Oswestry disability index score. 57% Short Term Goal (STG) Decrease Oswestry score to no greater than 45% as measure of improved activity tolerance. 05/01/24: min progress STG Duration 04/24/24 Skilled Nursing Goal (LTG) Decrease Oswestry score to no greater than 25% as measure of improved activity tolerance and quality of life. Patient activity tolerance will improve sufficient to allow her to return to maintenance cardiac and pulmonary rehab program. LTG Duration 06/10/24 Progress Towards Goals Progress Towards Goals Slow Progress due to Medical Issues Assessment Summary Assessment Patient even more fatigued today due to doing fasting blood test. Has tooth abscess being removed on Sunday, and had manager cardiac placed last week. Progress impacted by multiple medical issues. Physical Therapy Plan Frequency and Duration Frequency of Treatment 2x/Week Duration of treatment (weeks) 12 Plan of Care Start Date 03/10/24 Plan of Care End Date 06/10/24 Therapeutic Interventions Therapeutic Interventions Home Exercise Program,Manual Therapy,Patient/Caregiver Education,Self-Care/Home Management,Soft Tissue Mobilization,Taping, Therapeutic Activities, Therapeutic Exercises Modalities Cold Pack/Ice Massage,Electric Stimulation,Hot Packs, Infrared Therapy,Ultrasound Next Visit Focus/Plan Next Note Type Treatment Note Next Visit Plan Continue PT as patient tolerates working toward above goals. continue curb simulation
--- NOTE | 2024-05-29 10:40 | PT.OTN ---
Current Diagnoses Other chronic pain (05/29/24) Lumbago with sciatica, left side (05/29/24) Pain in thoracic spine (05/29/24) Weakness (05/29/24) Physical Therapy Treatment Note PT-OP-A Visit Information Start: 03/06/24 17:15 Freq: Status: Active Protocol: Document 05/29/24 09:41 SAK (Rec: 05/29/24 10:27 [facility] [id number]) Out-Patient Physical Therapy Visit Information Visit Information Visit Type Treatment Note Visit Start Time 09:40 Visit Stop Time 10:42 Visit Number 10 Evaluation Information Evaluation Date 03/10/24 Precautions Precautions cardiac,long covid PMH: Hypertensive urgency History of [place] (myocardial infarction) (~2020) History of CVA ( cerebrovascular accident) Concussion COVID-19 Sleep apnea Shoulder pain Diastolic heart failure Atrial fibrillation Iron deficiency anemia Ocular migraine History of stent insertion of renal artery Bone lesion Left renal artery stenosis (~ 11/22/20) 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 (~) Parumbilical hernia (~11/22/20 ) Hiatal hernia (~11/22/20) Osteopenia of femoral neck, bilateral (~02/2019) Macular degeneration, age related, nonexudative Dyslipidemia Thyroid nodule Proteus enteritis (~2018) EBV infection (~1962) Coccidioidomycosis (~1962) Heterozygous MTHFR mutation C677T Renal artery atherosclerosis ( 09/22/11) Systemic lupus erythematosus Atypical nevus of abdominal wall Lipoma Angioedema Statin intolerance Elevated coronary artery calcium score Prinzmetal's angina (1975) Hypertension CAD (coronary artery disease) (1979) Shingles (2016) Asthma History of recurrent pneumonia Severe obstructive sleep apnea -hypopnea syndrome (10/22/15) PT-OP-B Current Condition Start: 03/06/24 17:15 Freq: Status: Active Protocol: Document 05/29/24 09:41 SAK (Rec: 05/29/24 10:27 [facility] [id number]) Current Condition History of Current Condition Onset Date December Current Complaints worsened back pain History of Current Condition Continues to struggle with long Covid; weakness and low energy. Couldn't continue with pulmonary rehab due to all medical issues. HIstory neck, thoracic, lumbar pain. States she was traveling and staying at friend's house, couldn't get out of friend's bed felt like my stomach was stuck to my spine. Difficulty getting in and out of friend's car. several times but pain worsened and has persisted. Only thing that helped was sitting on couch with semi firm pillow behind. Now very difficult still to get up. Can't lay on left side, still has stabbing pain right IT band. Back pain has now moved to her left buttock. Has had OMT treatments but had spasm in spine during one of her appts. can just bend over and has spasms, takes a long time to go away. Pain worst in am. Sleeps on right side but sometimes revs up IT band. A little better in am after walking a little bit. States she is cold a lot, tends to cross her arms across her chest due to this. 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 Won't take pain medication. Prior Treatments and Tests x-ray: negative EMG: PT-OP-C Subjective Start: 03/06/24 17:15 Freq: Status: Active Protocol: Document 05/29/24 09:41 [facility] (Rec: 05/29/24 10:27 [facility] [id number]) OP-PT Subjective Patient Comments Patient Comments Patient fatigued from having tooth pulled last week and having company for a week. Its so hard but I really want to build up my strength and stamina. PT-OP-F Manual Assessment Start: 03/06/24 17:15 Freq: Status: Active Protocol: Document 03/10/24 17:17 [facility] (Rec: 03/13/24 17:44 [facility] [id number]) Manual Assessments Soft Tissue Assessment Soft Tissue Mobility Assessment tightnes lumbar paraspinals, left piriformis PT-OP-G Mobility & Gait Start: 03/06/24 17:15 Freq: Status: Active Protocol: Document 03/10/24 17:17 [facility] (Rec: 03/13/24 17:44 [facility] [id number]) OP Mobility Evaluation Bed Mobility Rolling patient unable to lay down Transfers Sit to Stand painful Car Transfers painful OP Gait Assessment Gait Gait Assistance Required: Independent Assistive Devices Assistive Device None Gait Deviations General Gait Pattern Antalgic,Decreased Stride Length,Decreased Feet Clearance,Wide Based Gait Factors Limiting Gait Function Factors Limiting Gait Function Decreased Activity Tolerance, Decreased Strength,Pain Stair Climbing Evaluation Technique/Endurance Stair Climbing Technique Step to Step PT-OP-H Neuro Start: 03/06/24 17:15 Freq: Status: Active Protocol: Document 03/10/24 17:17 [facility] (Rec: 03/13/24 17:44 [facility] [id number]) Sensation Evaluation Gross Sensation Gross Sensation Left LE Impaired Sensation Description Paresthesia,Numbness,Tingling PT-OP-J Posture/Palpation/Skin Start: 03/06/24 17:15 Freq: Status: Active Protocol: Document 03/10/24 17:17 [facility] (Rec: 03/13/24 17:44 [facility] [id number]) Posture Evaluation Position Standing Head/C-Spine Posture Forward Head T-Spine Posture Increased Kyphosis Shoulder Posture (L) Rounded,(R) Rounded Scapula Posture (L) Protracted,(R) Protracted Arm Posture (L) Internally Rotated,(R) Internally Rotated Pelvis Posture Anteriorly Tilted Weight Distribution Weight Shifted Right Hip Posture (L) Externally Rotated Knee Posture (L) Genu Valgus,(R) Genu Valgus Palpation Assessment Location lumbar spine Palpation Location L45 Palpation Findings Soft Tissue Tightness, Tenderness PT-OP-K Range of Motion Start: 03/06/24 17:15 Freq: Status: Active Protocol: Document 03/10/24 17:17 [facility] (Rec: 03/13/24 17:44 [facility] [id number]) Lumbar Spine Range of Motion Lumbar Spine Active Testing Position Standing ROM Limitations Soft Tissue Tightness,Pain Comments mod decrease all motions due to pain Hip Goniometric Range of Motion Hip Left Hip ROM WFL No Flexion w/Knee Flexed 100 Extension 0 Abduction 20 Internal Rotation 10 External Rotation 60 Right Active Hip ROM WFL Yes Hip ROM Limitations Hip ROM Limitations Soft Tissue Tightness,Pain Knee Goniometric Range of Motion Knee luisa Knee ROM WFL Yes Ankle and Foot Goniometric Range of Motion Ankle and Foot luisa Ankle/Foot ROM WFL Yes PT-OP-M Strength Start: 03/06/24 17:15 Freq: Status: Active Protocol: Document 03/10/24 17:17 [facility] (Rec: 03/13/24 17:44 [facility] [id number]) Hip Strength Hip Manual Muscle Testing Right Flexion (L2) 4 Good Extension (S1) 3+ Fair+ Abduction 4- Good- Adduction 4 Good External Rotation 4- Good- Internal Rotation 4 Good Left Flexion (L2) 4 Good Extension (S1) 3- Fair- Abduction 3- Fair- Adduction 4- Good- External Rotation 4- Good- Internal Rotation 4- Good- PT-OP-Q Treatments Start: 03/06/24 17:15 Freq: Status: Active Protocol: Document 05/29/24 09:41 [facility] (Rec: 05/29/24 10:27 [facility] [id number]) Cardio Equipment Recumbent Stepper (Sci-Fit) Duration (Minutes) 10 Resistance 1-1.5 Seat Position 10 Gym Equipment Shuttle Recovery Unilateral Squats Resistance 37 Shuttle Recovery Platform Stable Reps/Time 10x 2 Bilateral Squats Details cues for quad and gluteal activation Resistance 62 Shuttle Recovery Platform Stable Reps/Time 10x2 Shuttle Balance chains red, cords loose Details balance and weight shift fwd/ bck with feet sta, side stggered, side to side Reps/Duration 3 min Therapeutic Exercises Standing Exercises step ups/downs Standing Exercise Name 4, 6, 8 boxes Equipment Used wall bar PRN Reps/Minutes 3x ea Comments CG to min assist hurdles Equipment Used no UE support Reps/Minutes 6 hudles x 6 Comments no catching legs on hurdles Manual Therapy Treatment Soft Tissue Mobilization IT band Body Location L Mobilization Type Myofascial Release Intensity/Depth Moderate Body Position Sidelying piriformis Body Location L Mobilization Type Myofascial Release,Strumming Intensity/Depth mod Body Position right sidelying Neuro Re-Education Treatment Balance Activities obstacle course Details 4, 6 boxes, black square foam Reps/Duration 3x Self-Care/Home Management Treatment Education Patient Education Body Mechanics,Home Exercise Program,Pain Management, Posture PT-OP-R Modalities Start: 03/06/24 17:15 Freq: Status: Active Protocol: Document 05/29/24 09:41 [facility] (Rec: 05/29/24 10:27 [facility] [id number]) Hot Pack/Cold Pack Treatment Hot Pack Location lumbar spine Patient Position Sitting Patient Tolerance Good PT-OP-T Assessment and Plan Start: 03/06/24 17:15 Freq: Status: Active Protocol: Document 05/29/24 09:41 [facility] (Rec: 05/29/24 10:27 [facility] [id number]) Physical Therapy Assessment Impairments Impairments Activity Tolerance,Soft Tissue Mobility,Strength Goals One Impairment low back pain with radicular symptoms left LE Impairment as high as 9/10 Short Term Goal (STG) decrease pain to no greater than 5/10 with all usual activities 05/01/24: min goal progress STG Duration 04/24/24 Fpc Goal (LTG) decrease pain to no greater than 3/10 with all usual activities to allow patient to return to PLF LTG Duration 06/10/24 Three Impairment weakness Impairment core and LE weakness left greater than right Short Term Goal (STG) Patient to be instructed in HEP for purposes of strerngthening and core stabilization 05/01/24: goal met, ongoing progression STG Duration goal met Event Technician Goal (LTG) Patient to be independent and compliant with HEP and demonstrate improvement in all muscle groups to at least 4+/ 5 to allow her to return to usual activities. LTG Duration 06/10/24 Two Impairment Activity tolerance Impairment Constant pain limiting sleep and all physical activity moderately by 75% per patient report. Oswestry disability index score. 57% Short Term Goal (STG) Decrease Oswestry score to no greater than 45% as measure of improved activity tolerance. 05/01/24: min progress STG Duration 04/24/24 Fpc Goal (LTG) Decrease Oswestry score to no greater than 25% as measure of improved activity tolerance and quality of life. Patient activity tolerance will improve sufficient to allow her to return to maintenance cardiac and pulmonary rehab program. LTG Duration 06/10/24 Progress Towards Goals Progress Towards Goals Slow Progress due to Medical Issues Assessment Summary Assessment Despite high fatigue level patient functional strength notably improved with her able to walk over hurdles without UE support and without catching her toes on them. Added black foam to walking up and down boxes for curb simulation. Progress toward goals Physical Therapy Plan Frequency and Duration Frequency of Treatment 2x/Week Duration of treatment (weeks) 12 Plan of Care Start Date 03/10/24 Plan of Care End Date 06/10/24 Therapeutic Interventions Therapeutic Interventions Home Exercise Program,Manual Therapy,Patient/Caregiver Education,Self-Care/Home Management,Soft Tissue Mobilization,Taping, Therapeutic Activities, Therapeutic Exercises Modalities Cold Pack/Ice Massage,Electric Stimulation,Hot Packs, Infrared Therapy,Ultrasound Next Visit Focus/Plan Next Note Type Treatment Note Next Visit Plan Continue PT as patient tolerates working toward above goals. continue curb simulation for functional strengthening LE's , hurdles for hip flex strength. Add clamshell, hp abd as tolerated
--- NOTE | 2024-06-02 14:44 | PT.OTN ---
Current Diagnoses Other chronic pain (06/02/24) Lumbago with sciatica, left side (06/02/24) Pain in thoracic spine (06/02/24) Weakness (06/02/24) Physical Therapy Treatment Note PT-OP-A Visit Information Start: 03/06/24 17:15 Freq: Status: Active Protocol: Document 06/02/24 09:04 SAK (Rec: 06/02/24 09:29 [facility] [id number]) Out-Patient Physical Therapy Visit Information Visit Information Visit Type Treatment Note Visit Start Time 09:05 Visit Stop Time 10:07 Visit Number 11 Evaluation Information Evaluation Date 03/10/24 Precautions Precautions cardiac,long covid PMH: Hypertensive urgency History of [place] (myocardial infarction) (~2020) History of CVA ( cerebrovascular accident) Concussion COVID-19 Sleep apnea Shoulder pain Diastolic heart failure Atrial fibrillation Iron deficiency anemia Ocular migraine History of stent insertion of renal artery Bone lesion Left renal artery stenosis (~ 11/22/20) 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 (~) Parumbilical hernia (~11/22/20 ) Hiatal hernia (~11/22/20) Osteopenia of femoral neck, bilateral (~02/2019) Macular degeneration, age related, nonexudative Dyslipidemia Thyroid nodule Proteus enteritis (~2018) EBV infection (~1962) Coccidioidomycosis (~1962) Heterozygous MTHFR mutation C677T Renal artery atherosclerosis ( 09/22/11) Systemic lupus erythematosus Atypical nevus of abdominal wall Lipoma Angioedema Statin intolerance Elevated coronary artery calcium score Prinzmetal's angina (1975) Hypertension CAD (coronary artery disease) (1979) Shingles (2016) Asthma History of recurrent pneumonia Severe obstructive sleep apnea -hypopnea syndrome (10/22/15) PT-OP-B Current Condition Start: 03/06/24 17:15 Freq: Status: Active Protocol: Document 06/02/24 09:04 SAK (Rec: 06/02/24 09:29 SAK [id number]) Current Condition History of Current Condition Onset Date December Current Complaints worsened back pain History of Current Condition Continues to struggle with long Covid; weakness and low energy. Couldn't continue with pulmonary rehab due to all medical issues. HIstory neck, thoracic, lumbar pain. States she was traveling and staying at friend's house, couldn't get out of friend's bed felt like my stomach was stuck to my spine. Difficulty getting in and out of friend's car. several times but pain worsened and has persisted. Only thing that helped was sitting on couch with semi firm pillow behind. Now very difficult still to get up. Can't lay on left side, still has stabbing pain right IT band. Back pain has now moved to her left buttock. Has had OMT treatments but had spasm in spine during one of her appts. can just bend over and has spasms, takes a long time to go away. Pain worst in am. Sleeps on right side but sometimes revs up IT band. A little better in am after walking a little bit. States she is cold a lot, tends to cross her arms across her chest due to this. 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 Won't take pain medication. Prior Treatments and Tests x-ray: negative EMG: PT-OP-C Subjective Start: 03/06/24 17:15 Freq: Status: Active Protocol: Document 06/02/24 09:04 [facility] (Rec: 06/02/24 09:29 [facility] [id number]) OP-PT Subjective Patient Comments Patient Comments Tired. Reports blood tests shows she is very anemic. States manual work on hip and buttock very helpful last session. PT-OP-F Manual Assessment Start: 03/06/24 17:15 Freq: Status: Active Protocol: Document 03/10/24 17:17 [facility] (Rec: 03/13/24 17:44 [facility] [id number]) Manual Assessments Soft Tissue Assessment Soft Tissue Mobility Assessment tightnes lumbar paraspinals, left piriformis PT-OP-G Mobility & Gait Start: 03/06/24 17:15 Freq: Status: Active Protocol: Document 03/10/24 17:17 [facility] (Rec: 03/13/24 17:44 [facility] [id number]) OP Mobility Evaluation Bed Mobility Rolling patient unable to lay down Transfers Sit to Stand painful Car Transfers painful OP Gait Assessment Gait Gait Assistance Required: Independent Assistive Devices Assistive Device None Gait Deviations General Gait Pattern Antalgic,Decreased Stride Length,Decreased Feet Clearance,Wide Based Gait Factors Limiting Gait Function Factors Limiting Gait Function Decreased Activity Tolerance, Decreased Strength,Pain Stair Climbing Evaluation Technique/Endurance Stair Climbing Technique Step to Step PT-OP-H Neuro Start: 03/06/24 17:15 Freq: Status: Active Protocol: Document 03/10/24 17:17 SAK (Rec: 03/13/24 17:44 [facility] [id number]) Sensation Evaluation Gross Sensation Gross Sensation Left LE Impaired Sensation Description Paresthesia,Numbness,Tingling PT-OP-J Posture/Palpation/Skin Start: 03/06/24 17:15 Freq: Status: Active Protocol: Document 03/10/24 17:17 SAK (Rec: 03/13/24 17:44 [facility] [id number]) Posture Evaluation Position Standing Head/C-Spine Posture Forward Head T-Spine Posture Increased Kyphosis Shoulder Posture (L) Rounded,(R) Rounded Scapula Posture (L) Protracted,(R) Protracted Arm Posture (L) Internally Rotated,(R) Internally Rotated Pelvis Posture Anteriorly Tilted Weight Distribution Weight Shifted Right Hip Posture (L) Externally Rotated Knee Posture (L) Genu Valgus,(R) Genu Valgus Palpation Assessment Location lumbar spine Palpation Location L45 Palpation Findings Soft Tissue Tightness, Tenderness PT-OP-K Range of Motion Start: 03/06/24 17:15 Freq: Status: Active Protocol: Document 03/10/24 17:17 [facility] (Rec: 03/13/24 17:44 [facility] [id number]) Lumbar Spine Range of Motion Lumbar Spine Active Testing Position Standing ROM Limitations Soft Tissue Tightness,Pain Comments mod decrease all motions due to pain Hip Goniometric Range of Motion Hip Left Hip ROM WFL No Flexion w/Knee Flexed 100 Extension 0 Abduction 20 Internal Rotation 10 External Rotation 60 Right Active Hip ROM WFL Yes Hip ROM Limitations Hip ROM Limitations Soft Tissue Tightness,Pain Knee Goniometric Range of Motion Knee luisa Knee ROM WFL Yes Ankle and Foot Goniometric Range of Motion Ankle and Foot luisa Ankle/Foot ROM WFL Yes PT-OP-M Strength Start: 03/06/24 17:15 Freq: Status: Active Protocol: Document 03/10/24 17:17 SAK (Rec: 03/13/24 17:44 [facility] [id number]) Hip Strength Hip Manual Muscle Testing Right Flexion (L2) 4 Good Extension (S1) 3+ Fair+ Abduction 4- Good- Adduction 4 Good External Rotation 4- Good- Internal Rotation 4 Good Left Flexion (L2) 4 Good Extension (S1) 3- Fair- Abduction 3- Fair- Adduction 4- Good- External Rotation 4- Good- Internal Rotation 4- Good- PT-OP-Q Treatments Start: 03/06/24 17:15 Freq: Status: Active Protocol: Document 06/02/24 09:04 [facility] (Rec: 06/02/24 09:29 [facility] [id number]) Cardio Equipment Recumbent Stepper (Sci-Fit) Duration (Minutes) 17 Resistance 1 Seat Position 9 Gym Equipment Shuttle Recovery Unilateral Squats Resistance 37 Shuttle Recovery Platform Stable Reps/Time 10x 2 Bilateral Squats Details cues for quad and gluteal activation Resistance 62 Shuttle Recovery Platform Stable Reps/Time 10x2 Shuttle Balance chains red, cords loose Details balance and weight shift fwd/ bck with feet sta, side stggered, side to side Reps/Duration 3 min Therapeutic Exercises Standing Exercises hurdles Equipment Used no UE support Reps/Minutes 6 hurdles x 6 Comments no catching legs on hurdles Manual Therapy Treatment Soft Tissue Mobilization IT band Body Location L Mobilization Type Myofascial Release Intensity/Depth Moderate Body Position Sidelying piriformis Body Location L Mobilization Type Myofascial Release,Strumming Intensity/Depth mod Body Position right sidelying Neuro Re-Education Treatment Balance Activities obstacle course Details 4, 6 boxes, black square foam, hurdles Reps/Duration 3x Self-Care/Home Management Treatment Education Patient Education Body Mechanics,Home Exercise Program,Pain Management, Posture PT-OP-R Modalities Start: 03/06/24 17:15 Freq: Status: Active Protocol: Document 06/02/24 08:14 [facility] (Rec: 06/02/24 14:44 [facility] [id number]) Hot Pack/Cold Pack Treatment Hot Pack Location lumbar spine Patient Position Sitting Patient Tolerance Good PT-OP-T Assessment and Plan Start: 03/06/24 17:15 Freq: Status: Active Protocol: Document 06/02/24 09:04 [facility] (Rec: 06/02/24 09:29 [facility] [id number]) Physical Therapy Assessment Impairments Impairments Activity Tolerance,Soft Tissue Mobility,Strength Goals One Impairment low back pain with radicular symptoms left LE Impairment as high as 9/10 Short Term Goal (STG) decrease pain to no greater than 5/10 with all usual activities 05/01/24: min goal progress STG Duration 04/24/24 Longterm Goal (LTG) decrease pain to no greater than 3/10 with all usual activities to allow patient to return to PLF LTG Duration 06/10/24 Three Impairment weakness Impairment core and LE weakness left greater than right Short Term Goal (STG) Patient to be instructed in HEP for purposes of strerngthening and core stabilization 05/01/24: goal met, ongoing progression STG Duration goal met Longterm Goal (LTG) Patient to be independent and compliant with HEP and demonstrate improvement in all muscle groups to at least 4+/ 5 to allow her to return to usual activities. LTG Duration 06/10/24 Two Impairment Activity tolerance Impairment Constant pain limiting sleep and all physical activity moderately by 75% per patient report. Oswestry disability index score. 57% Short Term Goal (STG) Decrease Oswestry score to no greater than 45% as measure of improved activity tolerance. 05/01/24: min progress STG Duration 04/24/24 Longterm Goal (LTG) Decrease Oswestry score to no greater than 25% as measure of improved activity tolerance and quality of life. Patient activity tolerance will improve sufficient to allow her to return to maintenance cardiac and pulmonary rehab program. LTG Duration 06/10/24 Progress Towards Goals Progress Towards Goals Slow Progress due to Medical Issues Assessment Summary Assessment Improved pain level today after manual treatment today, fatigue level high from long Covid and anemia. Physical Therapy Plan Frequency and Duration Frequency of Treatment 2x/Week Duration of treatment (weeks) 12 Plan of Care Start Date 03/10/24 Plan of Care End Date 06/10/24 Therapeutic Interventions Therapeutic Interventions Home Exercise Program,Manual Therapy,Patient/Caregiver Education,Self-Care/Home Management,Soft Tissue Mobilization,Taping, Therapeutic Activities, Therapeutic Exercises Modalities Cold Pack/Ice Massage,Electric Stimulation,Hot Packs, Infrared Therapy,Ultrasound Next Visit Focus/Plan Next Note Type Treatment Note Next Visit Plan Add clamshell, hip abduction. Continue strengthening, gait training, functional retraining per POC
--- NOTE | 2024-06-16 16:32 | PT.OTRE ---
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 Hiatal hernia (~11/22/20) History of CVA (cerebrovascular accident) History of SD (myocardial infarction) (~2020) History of recurrent pneumonia History of stent insertion of renal artery Hypertension Hypertensive urgency Iron deficiency anemia Left renal artery stenosis (~11/22/20) Lipoma Macular degeneration, age related, nonexudative Ocular migraine Osteopenia of femoral neck, bilateral (~02/2019) Parumbilical hernia (~11/22/20) Prinzmetal's angina (1975) Proteus enteritis (~2018) Renal artery atherosclerosis (09/22/11) Severe obstructive sleep apnea-hypopnea syndrome (10/22/15) Shingles (2016) Shoulder pain Sleep apnea Statin intolerance Stenosis of celiac artery (~11/22/20) Strain of AC joint Systemic lupus erythematosus Thyroid nodule Tooth abscess Surgical History (Last Reviewed 01/19/24 @ 14:28 by Lillie Jaimes PA-C) Anesthesia H/O colonoscopy with polypectomy (~04/2020) History of arthroplasty (12/09/12) History of arthroplasty (01/20/13) History of cataract removal with insertion of prosthetic lens (2014) History of cholecystectomy History of melanoma excision History of tonsillectomy Stented coronary artery (2013) Visit Care Team Role Provider Type La Torres DO Attending Provider Physician Family Provider Primary Care Provider Referring Provider Specialty: Medical Address: [address] [place] [address], [address], [address] Email: [email or web address] Physical Therapy Re-Evaluation PT-OP-A Visit Information Start: 06/13/24 17:15 Freq: Status: Active Protocol: Document 06/16/24 09:39 [facility] (Rec: 06/16/24 10:31 [facility] [id number]) Out-Patient Physical Therapy Visit Information Visit Information Visit Type Treatment Note Visit Start Time 09:45 Visit Stop Time 10:45 Visit Number 12 Evaluation Information Evaluation Date 03/10/24 Precautions Precautions cardiac,long covid PMH: Hypertensive urgency History of SD (myocardial infarction) (~2020) History of CVA ( cerebrovascular accident) Concussion COVID-19 Sleep apnea Shoulder pain Diastolic heart failure Atrial fibrillation Iron deficiency anemia Ocular migraine History of stent insertion of renal artery Bone lesion Left renal artery stenosis (~ 11/22/20) 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 (~) Parumbilical hernia (~11/22/20 ) Hiatal hernia (~11/22/20) Osteopenia of femoral neck, bilateral (~02/2019) Macular degeneration, age related, nonexudative Dyslipidemia Thyroid nodule Proteus enteritis (~2018) EBV infection (~1962) Coccidioidomycosis (~1962) Heterozygous MTHFR mutation C677T Renal artery atherosclerosis ( 09/22/11) Systemic lupus erythematosus Atypical nevus of abdominal wall Lipoma Angioedema Statin intolerance Elevated coronary artery calcium score Prinzmetal's angina (1975) Hypertension CAD (coronary artery disease) (1979) Giuseppegles (2016) Asthma History of recurrent pneumonia Severe obstructive sleep apnea -hypopnea syndrome (10/22/15) PT-OP-B Current Condition Start: 03/06/24 17:15 Freq: Status: Active Protocol: Document 06/16/24 09:39 [facility] (Rec: 06/16/24 10:31 [facility] [id number]) Current Condition History of Current Condition Onset Date December Current Complaints worsened back pain History of Current Condition Continues to struggle with long Covid; weakness and low energy. Couldn't continue with pulmonary rehab due to all medical issues. HIstory neck, thoracic, lumbar pain. States she was traveling and staying at friend's house, couldn't get out of friend's bed felt like my stomach was stuck to my spine. Difficulty getting in and out of friend's car. several times but pain worsened and has persisted. Only thing that helped was sitting on couch with semi firm pillow behind. Now very difficult still to get up. Can't lay on left side, still has stabbing pain right IT band. Back pain has now moved to her left buttock. Has had OMT treatments but had spasm in spine during one of her appts. can just bend over and has spasms, takes a long time to go away. Pain worst in am. Sleeps on right side but sometimes revs up IT band. A little better in am after walking a little bit. States she is cold a lot, tends to cross her arms across her chest due to this. 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 Won't take pain medication. Prior Treatments and Tests x-ray: negative EMG: PT-OP-C Subjective Start: 03/06/24 17:15 Freq: Status: Active Protocol: Document 06/16/24 09:39 [facility] (Rec: 06/16/24 10:31 [facility] [id number]) OP-PT Subjective Patient Comments Patient Comments Reports she feels overall PT helpful, but long gap in between appointments not helpful; 2 weeks since last seen. Continues to try to exercise as much as able, fatigue from multiple medical issues is a limiting factor. PT-OP-F Manual Assessment Start: 03/06/24 17:15 Freq: Status: Active Protocol: Document 03/10/24 17:17 [facility] (Rec: 03/13/24 17:44 [facility] [id number]) Manual Assessments Soft Tissue Assessment Soft Tissue Mobility Assessment tightnes lumbar paraspinals, left piriformis PT-OP-G Mobility & Gait Start: 03/06/24 17:15 Freq: Status: Active Protocol: Document 03/10/24 17:17 [facility] (Rec: 03/13/24 17:44 [facility] [id number]) OP Mobility Evaluation Bed Mobility Rolling patient unable to lay down Transfers Sit to Stand painful Car Transfers painful OP Gait Assessment Gait Gait Assistance Required: Independent Assistive Devices Assistive Device None Gait Deviations General Gait Pattern Antalgic,Decreased Stride Length,Decreased Feet Clearance,Wide Based Gait Factors Limiting Gait Function Factors Limiting Gait Function Decreased Activity Tolerance, Decreased Strength,Pain Stair Climbing Evaluation Technique/Endurance Stair Climbing Technique Step to Step PT-OP-H Neuro Start: 03/06/24 17:15 Freq: Status: Active Protocol: Document 03/10/24 17:17 [facility] (Rec: 03/13/24 17:44 [facility] [id number]) Sensation Evaluation Gross Sensation Gross Sensation Left LE Impaired Sensation Description Paresthesia,Numbness,Tingling PT-OP-J Posture/Palpation/Skin Start: 03/06/24 17:15 Freq: Status: Active Protocol: Document 03/10/24 17:17 [facility] (Rec: 03/13/24 17:44 [facility] [id number]) Posture Evaluation Position Standing Head/C-Spine Posture Forward Head T-Spine Posture Increased Kyphosis Shoulder Posture (L) Rounded,(R) Rounded Scapula Posture (L) Protracted,(R) Protracted Arm Posture (L) Internally Rotated,(R) Internally Rotated Pelvis Posture Anteriorly Tilted Weight Distribution Weight Shifted Right Hip Posture (L) Externally Rotated Knee Posture (L) Genu Valgus,(R) Genu Valgus Palpation Assessment Location lumbar spine Palpation Location L45 Palpation Findings Soft Tissue Tightness, Tenderness PT-OP-K Range of Motion Start: 03/06/24 17:15 Freq: Status: Active Protocol: Document 03/10/24 17:17 [facility] (Rec: 03/13/24 17:44 [facility] [id number]) Lumbar Spine Range of Motion Lumbar Spine Active Testing Position Standing ROM Limitations Soft Tissue Tightness,Pain Comments mod decrease all motions due to pain Hip Goniometric Range of Motion Hip Measured in Degrees Left Hip ROM WFL No Flexion w/Knee Flexed 100 Extension 0 Abduction 20 Internal Rotation 10 External Rotation 60 Right Active Hip ROM WFL Yes Hip ROM Limitations Hip ROM Limitations Soft Tissue Tightness,Pain Knee Goniometric Range of Motion Knee Measured in Degrees luisa Knee ROM WFL Yes Ankle and Foot Goniometric Range of Motion Ankle and Foot Measured in Degrees luisa Ankle/Foot ROM WFL Yes PT-OP-M Strength Start: 03/06/24 17:15 Freq: Status: Active Protocol: Document 03/10/24 17:17 [facility] (Rec: 03/13/24 17:44 [facility] [id number]) Hip Strength Hip Manual Muscle Testing Right Flexion (L2) 4 Good Extension (S1) 3+ Fair+ Abduction 4- Good- Adduction 4 Good External Rotation 4- Good- Internal Rotation 4 Good Left Flexion (L2) 4 Good Extension (S1) 3- Fair- Abduction 3- Fair- Adduction 4- Good- External Rotation 4- Good- Internal Rotation 4- Good- PT-OP-Q Treatments Start: 03/06/24 17:15 Freq: Status: Active Protocol: Document 06/16/24 09:39 [facility] (Rec: 06/16/24 10:31 [facility] [id number]) Cardio Equipment Recumbent Stepper (Sci-Fit) Duration (Minutes) 15 Resistance 1 Seat Position 9 Gym Equipment Shuttle Recovery Unilateral Squats Resistance 37 Shuttle Recovery Platform Stable Reps/Time 10x 2 Bilateral Squats Details cues for quad and gluteal activation Resistance 62 Shuttle Recovery Platform Stable Reps/Time 10x2 Shuttle Balance chains red, cords loose Details balance and weight shift fwd/ bck with feet sta, side stggered, side to side Reps/Duration 3 min Therapeutic Exercises Standing Exercises chair squats Equipment Used no UE support Reps/Minutes 5x2 resisted sidestepping Resistance L1 TB hurdles Equipment Used no UE support Reps/Minutes 6 hurdles x 3 Comments 1x catching legs on hurdles Gait Training Gait Activity hurdles Device Used wall bar PRN Level of Assistance CGA Distance/Duration 3x6 hurdles Treatment Focus hip flex strength stairs Description 6 Distance/Duration 5 x 2 Treatment Focus cues for gluteal activation Comments single railing Manual Therapy Treatment Soft Tissue Mobilization lumbar paraspinals Mobilization Type Myofascial Release,Strumming Intensity/Depth mod Body Position Sitting Comments leaning forward onto pillows Neuro Re-Education Treatment Balance Activities obstacle course Details 4, 6 boxes, black square foam, hurdles Reps/Duration 3x Self-Care/Home Management Treatment Education Patient Education Body Mechanics,Home Exercise Program,Pain Management, Posture PT-OP-R Modalities Start: 03/06/24 17:15 Freq: Status: Active Protocol: Document 06/16/24 09:39 [facility] (Rec: 06/16/24 10:31 [facility] [id number]) Hot Pack/Cold Pack Treatment Hot Pack Location lumbar spine Patient Position Sitting Patient Tolerance Good PT-OP-T Assessment and Plan Start: 03/06/24 17:15 Freq: Status: Active Protocol: Document 06/16/24 09:39 [facility] (Rec: 06/16/24 10:31 [facility] [id number]) Physical Therapy Assessment Impairments Impairments Activity Tolerance,Soft Tissue Mobility,Strength Goals One Impairment low back pain with radicular symptoms left LE Impairment as high as 9/10 Short Term Goal (STG) decrease pain to no greater than 5/10 with all usual activities 05/01/24: min goal progress 06/16/24: back better 60%, but when it revs up it is terrible, can't sit, stand, or walk. Always bad when first gets up in am. Hip pain decreased with PT treatment. 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 06/16/24: met in knees and ankles, not hips and core though noting some goal progress LTG Duration 08/10/24 Two Impairment Activity tolerance Impairment Constant pain limiting sleep and all physical activity moderately by 75% per patient report. Oswestry disability index score. 57% Short Term Goal (STG) Decrease Oswestry score to no greater than 45% as measure of improved activity tolerance. 05/01/24: min progress 06/16/24: Reports improved after PT appointments for about 24 hours, pain variable, worst in am when first gets up and can be unpredictable; Did not get form filled out today. STG Duration 07/25/24 Prison Goal (LTG) Decrease Oswestry score to no greater than 25% as measure of improved activity tolerance and quality of life. Patient activity tolerance will improve sufficient to allow her to return to maintenance cardiac and pulmonary rehab program. LTG Duration 08/10/24 Progress Towards Goals Progress Towards Goals Slow Progress due to Medical Issues Assessment Summary Assessment Patient not seen for 2 weeks due to scheduling issues, reports continues follow up with medical issues. Very limited activity level due to fatigue from cardiace issues and long Covid. She has postural dysfunction and weakness which I feel contributes highly to her pain . Pain variable but improved with PT and OMT treatments. Ability to follow-through with HEP is difficult due to medical issues causing extreme fatigue. Feel she will benefit from further skilled PT. Physical Therapy Plan Frequency and Duration Frequency of Treatment 2x/Week Duration of treatment (weeks) 8 Plan of Care Start Date 06/10/24 Plan of Care End Date 08/10/24 Therapeutic Interventions Therapeutic Interventions Home Exercise Program,Manual Therapy,Patient/Caregiver Education,Self-Care/Home Management,Soft Tissue Mobilization,Taping, Therapeutic Activities, Therapeutic Exercises Modalities Cold Pack/Ice Massage,Electric Stimulation,Hot Packs, Infrared Therapy,Ultrasound Next Visit Focus/Plan Next Note Type Treatment Note Next Visit Plan Continue per POC for strengthening, gait training, functional retraining, manual therapy and modalies PRN. Add clamshell sidelying as mesha vs sitting.
--- NOTE | 2024-06-16 16:32 | PT.OPPOC ---
Physical, Occupational & Speech Therapy At [facility] Current Diagnoses Other chronic pain (06/16/24) Lumbago with sciatica, left side (06/16/24) Pain in thoracic spine (06/16/24) Weakness (06/16/24) Visit Care Team Role Provider Type La Torres DO Attending Provider Physician Family Provider Primary Care Provider Referring Provider Specialty: Medical Address: [address] [place] [address], [address], [place], [address] Email: [email or web address] Plan Of Care PT-OP-B Current Condition Start: 03/06/24 17:15 Freq: Status: Active Protocol: Document 06/16/24 09:39 [facility] (Rec: 06/16/24 10:31 [facility] [id number]) Current Condition History of Current Condition Onset Date December Current Complaints worsened back pain History of Current Condition Continues to struggle with long Covid; weakness and low energy. Couldn't continue with pulmonary rehab due to all medical issues. HIstory neck, thoracic, lumbar pain. States she was traveling and staying at friend's house, couldn't get out of friend's bed felt like my stomach was stuck to my spine. Difficulty getting in and out of friend's car. several times but pain worsened and has persisted. Only thing that helped was sitting on couch with semi firm pillow behind. Now very difficult still to get up. Can't lay on left side, still has stabbing pain right IT band. Back pain has now moved to her left buttock. Has had OMT treatments but had spasm in spine during one of her appts. can just bend over and has spasms, takes a long time to go away. Pain worst in am. Sleeps on right side but sometimes revs up IT band. A little better in am after walking a little bit. States she is cold a lot, tends to cross her arms across her chest due to this. 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 Won't take pain medication. Prior Treatments and Tests x-ray: negative EMG: PT-OP-T Assessment and Plan Start: 03/06/24 17:15 Freq: Status: Active Protocol: Document 06/16/24 09:39 [facility] (Rec: 06/16/24 10:31 [facility] [id number]) Physical Therapy Assessment Impairments Impairments Activity Tolerance,Soft Tissue Mobility,Strength Goals One Impairment low back pain with radicular symptoms left LE Impairment as high as 9/10 Short Term Goal (STG) decrease pain to no greater than 5/10 with all usual activities 05/01/24: min goal progress 06/16/24: back better 60%, but when it revs up it is terrible, can't sit, stand, or walk. Always bad when first gets up in am. Hip pain decreased with PT treatment. STG Duration 07/25/24 Longterm Goal (LTG) decrease pain to no greater than 3/10 with all usual activities to allow patient to return to PLF LTG Duration 08/10/24 Three Impairment weakness Impairment core and LE weakness left greater than right Short Term Goal (STG) Patient to be instructed in HEP for purposes of strerngthening and core stabilization 05/01/24: goal met, ongoing progression STG Duration goal met Bilingual Legal Assistant Goal (LTG) Patient to be independent and compliant with HEP and demonstrate improvement in all muscle groups to at least 4+/ 5 to allow her to return to usual activities. 06/16/24: met in knees and ankles, not hips and core though noting some goal progress LTG Duration 08/10/24 Two Impairment Activity tolerance Impairment Constant pain limiting sleep and all physical activity moderately by 75% per patient report. Oswestry disability index score. 57% Short Term Goal (STG) Decrease Oswestry score to no greater than 45% as measure of improved activity tolerance. 05/01/24: min progress 06/16/24: Reports improved after PT appointments for about 24 hours, pain variable, worst in am when first gets up and can be unpredictable; Did not get form filled out today. STG Duration 07/25/24 Longterm Goal (LTG) Decrease Oswestry score to no greater than 25% as measure of improved activity tolerance and quality of life. Patient activity tolerance will improve sufficient to allow her to return to maintenance cardiac and pulmonary rehab program. LTG Duration 08/10/24 Progress Towards Goals Progress Towards Goals Slow Progress due to Medical Issues Assessment Summary Assessment Patient not seen for 2 weeks due to scheduling issues, reports continues follow up with medical issues. Very limited activity level due to fatigue from cardiace issues and long Covid. She has postural dysfunction and weakness which I feel contributes highly to her pain . Pain variable but improved with PT and OMT treatments. Ability to follow-through with HEP is difficult due to medical issues causing extreme fatigue. Feel she will benefit from further skilled PT. Physical Therapy Plan Frequency and Duration Frequency of Treatment 2x/Week Duration of treatment (weeks) 8 Plan of Care Start Date 06/10/24 Plan of Care End Date 08/10/24 Therapeutic Interventions Therapeutic Interventions Home Exercise Program,Manual Therapy,Patient/Caregiver Education,Self-Care/Home Management,Soft Tissue Mobilization,Taping, Therapeutic Activities, Therapeutic Exercises Modalities Cold Pack/Ice Massage,Electric Stimulation,Hot Packs, Infrared Therapy,Ultrasound Next Visit Focus/Plan Next Note Type Treatment Note Next Visit Plan Continue per POC for strengthening, gait training, functional retraining, manual therapy and modalies PRN. Add clamshell sidelying as mesha vs sitting. Plan of Care Dates Plan of Care Start Date 06/10/24 Plan of Care End Date 08/10/24 Electronically Signed by: Luh Weaver, PT 06/16/24 [id number] If you are in agreement with this Plan of Care, please return a signed and dated copy. I have reviewed this Plan of Care and certify that the skilled therapy services above are required to meet the patient?s needs. Physician Signature Date Printed Name and Credentials Clinical Instructor Signature Printed Name and Credentials
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
--- NOTE | 2024-06-26 10:55 | PT.OTN ---
Current Diagnoses Other chronic pain (06/26/24) Lumbago with sciatica, left side (06/26/24) Pain in thoracic spine (06/26/24) Weakness (06/26/24) Physical Therapy Treatment Note PT-OP-A Visit Information Start: 03/06/24 17:15 Freq: Status: Active Protocol: Document 06/26/24 09:45 SAK (Rec: 06/26/24 10:55 [facility] [id number]) Out-Patient Physical Therapy Visit Information Visit Information Visit Type Treatment Note Visit Start Time 09:45 Visit Stop Time 10:45 Visit Number 14 Evaluation Information Evaluation Date 03/10/24 Precautions Precautions cardiac,long covid PMH: Hypertensive urgency History of MT (myocardial infarction) (~2020) History of CVA ( cerebrovascular accident) Concussion COVID-19 Sleep apnea Shoulder pain Diastolic heart failure Atrial fibrillation Iron deficiency anemia Ocular migraine History of stent insertion of renal artery Bone lesion Left renal artery stenosis (~ 11/22/20) 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 (~) Parumbilical hernia (~11/22/20 ) Hiatal hernia (~11/22/20) Osteopenia of femoral neck, bilateral (~02/2019) Macular degeneration, age related, nonexudative Dyslipidemia Thyroid nodule Proteus enteritis (~2018) EBV infection (~1962) Coccidioidomycosis (~1962) Heterozygous MTHFR mutation C677T Renal artery atherosclerosis ( 09/22/11) Systemic lupus erythematosus Atypical nevus of abdominal wall Lipoma Angioedema Statin intolerance Elevated coronary artery calcium score Prinzmetal's angina (1975) Hypertension CAD (coronary artery disease) (1979) Shingles (2016) Asthma History of recurrent pneumonia Severe obstructive sleep apnea -hypopnea syndrome (10/22/15) PT-OP-B Current Condition Start: 03/06/24 17:15 Freq: Status: Active Protocol: Document 06/26/24 09:45 SAK (Rec: 06/26/24 10:55 [facility] [id number]) Current Condition History of Current Condition Onset Date December Current Complaints worsened back pain History of Current Condition Continues to struggle with long Covid; weakness and low energy. Couldn't continue with pulmonary rehab due to all medical issues. HIstory neck, thoracic, lumbar pain. States she was traveling and staying at friend's house, couldn't get out of friend's bed felt like my stomach was stuck to my spine. Difficulty getting in and out of friend's car. several times but pain worsened and has persisted. Only thing that helped was sitting on couch with semi firm pillow behind. Now very difficult still to get up. Can't lay on left side, still has stabbing pain right IT band. Back pain has now moved to her left buttock. Has had OMT treatments but had spasm in spine during one of her appts. can just bend over and has spasms, takes a long time to go away. Pain worst in am. Sleeps on right side but sometimes revs up IT band. A little better in am after walking a little bit. States she is cold a lot, tends to cross her arms across her chest due to this. 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 Won't take pain medication. Prior Treatments and Tests x-ray: negative EMG: PT-OP-C Subjective Start: 03/06/24 17:15 Freq: Status: Active Protocol: Document 06/26/24 09:45 [facility] (Rec: 06/26/24 10:55 [facility] [id number]) OP-PT Subjective Patient Comments Patient Comments AFter last session felt better , then sitting in chair at night started to feel the pain in between shoulder blade, got worse. Sunday was 4/10, then decreased to 1 or 2/10. Reports took 3 nitroglycerine, didn't help, still thinks musculoskeletal. Sees [employer] 07/10/24. States when bad was 20/10 pain level, nothing helped; usually with this pain pushing her back again her chair is helpful, but wasn't this time. PT-OP-F Manual Assessment Start: 03/06/24 17:15 Freq: Status: Active Protocol: Document 03/10/24 17:17 SAK (Rec: 03/13/24 17:44 [facility] [id number]) Manual Assessments Soft Tissue Assessment Soft Tissue Mobility Assessment tightnes lumbar paraspinals, left piriformis PT-OP-G Mobility & Gait Start: 03/06/24 17:15 Freq: Status: Active Protocol: Document 03/10/24 17:17 SAK (Rec: 03/13/24 17:44 [facility] [id number]) OP Mobility Evaluation Bed Mobility Rolling patient unable to lay down Transfers Sit to Stand painful Car Transfers painful OP Gait Assessment Gait Gait Assistance Required: Independent Assistive Devices Assistive Device None Gait Deviations General Gait Pattern Antalgic,Decreased Stride Length,Decreased Feet Clearance,Wide Based Gait Factors Limiting Gait Function Factors Limiting Gait Function Decreased Activity Tolerance, Decreased Strength,Pain Stair Climbing Evaluation Technique/Endurance Stair Climbing Technique Step to Step PT-OP-H Neuro Start: 03/06/24 17:15 Freq: Status: Active Protocol: Document 03/10/24 17:17 [facility] (Rec: 03/13/24 17:44 [facility] [id number]) Sensation Evaluation Gross Sensation Gross Sensation Left LE Impaired Sensation Description Paresthesia,Numbness,Tingling PT-OP-J Posture/Palpation/Skin Start: 03/06/24 17:15 Freq: Status: Active Protocol: Document 03/10/24 17:17 [facility] (Rec: 03/13/24 17:44 [facility] [id number]) Posture Evaluation Position Standing Head/C-Spine Posture Forward Head T-Spine Posture Increased Kyphosis Shoulder Posture (L) Rounded,(R) Rounded Scapula Posture (L) Protracted,(R) Protracted Arm Posture (L) Internally Rotated,(R) Internally Rotated Pelvis Posture Anteriorly Tilted Weight Distribution Weight Shifted Right Hip Posture (L) Externally Rotated Knee Posture (L) Genu Valgus,(R) Genu Valgus Palpation Assessment Location lumbar spine Palpation Location L45 Palpation Findings Soft Tissue Tightness, Tenderness PT-OP-K Range of Motion Start: 03/06/24 17:15 Freq: Status: Active Protocol: Document 03/10/24 17:17 [facility] (Rec: 03/13/24 17:44 [facility] [id number]) Lumbar Spine Range of Motion Lumbar Spine Active Testing Position Standing ROM Limitations Soft Tissue Tightness,Pain Comments mod decrease all motions due to pain Hip Goniometric Range of Motion Hip Left Hip ROM WFL No Flexion w/Knee Flexed 100 Extension 0 Abduction 20 Internal Rotation 10 External Rotation 60 Right Active Hip ROM WFL Yes Hip ROM Limitations Hip ROM Limitations Soft Tissue Tightness,Pain Knee Goniometric Range of Motion Knee luisa Knee ROM WFL Yes Ankle and Foot Goniometric Range of Motion Ankle and Foot luisa Ankle/Foot ROM WFL Yes PT-OP-M Strength Start: 03/06/24 17:15 Freq: Status: Active Protocol: Document 03/10/24 17:17 [facility] (Rec: 03/13/24 17:44 [facility] [id number]) Hip Strength Hip Manual Muscle Testing Right Flexion (L2) 4 Good Extension (S1) 3+ Fair+ Abduction 4- Good- Adduction 4 Good External Rotation 4- Good- Internal Rotation 4 Good Left Flexion (L2) 4 Good Extension (S1) 3- Fair- Abduction 3- Fair- Adduction 4- Good- External Rotation 4- Good- Internal Rotation 4- Good- PT-OP-Q Treatments Start: 03/06/24 17:15 Freq: Status: Active Protocol: Document 06/26/24 09:45 [facility] (Rec: 06/26/24 10:55 [facility] [id number]) Cardio Equipment Recumbent Stepper (Sci-Fit) Duration (Minutes) 16 Resistance 1 Seat Position 9 Gym Equipment Shuttle Balance chains red, cords loose Details balance and weight shift fwd/ bck with feet sta, side stggered, side to side Reps/Duration 3 min Therapeutic Exercises Sidelying Exercises hip abd Sidelying Exercise Name verbal review clam Sidelying Exercise Name verbal review Sitting Exercises deep breathing Reps/Minutes 2 min Comments into thoracic, braline region for rib expansion, muscle relaxation Standing Exercises hurdles Standing Exercise Name CGA Equipment Used no UE support Reps/Minutes 6 hurdles x 4 Comments 2x catching legs on hurdles Gait Training Gait Activity stairs Description 6 Distance/Duration 5 x 2 Treatment Focus cues for gluteal activation Comments single railing Manual Therapy Treatment Soft Tissue Mobilization thoracic paraspinals Body Location leaning forward and upright sitting Mobilization Type Strumming,Sustained Pressure Intensity/Depth Moderate Body Position Sitting Comments states feels same area of pain from Sunday; bra-line painful with deep pressure or PA lumbar paraspinals Mobilization Type Myofascial Release,Strumming Intensity/Depth mod Body Position Sidelying Taping upper thoracic Treatment Focus postural correction Type of Tape KT Skin Inspection intact mid thoracic Type of Tape Kinesio Tape Skin Inspection intact Comments star pattern for pain relief Self-Care/Home Management Treatment Education Patient Education Body Mechanics,Home Exercise Program,Pain Management, Posture Other Education further emphasis postural correction, HEP previously given for postural correction, importance of supportive seating, PT-OP-R Modalities Start: 03/06/24 17:15 Freq: Status: Active Protocol: Document 06/26/24 09:45 [facility] (Rec: 06/26/24 10:55 [facility] [id number]) Hot Pack/Cold Pack Treatment Hot Pack Location lumbar, thoracic Patient Position Sitting Patient Tolerance Good PT-OP-T Assessment and Plan Start: 03/06/24 17:15 Freq: Status: Active Protocol: Document 06/26/24 09:45 [facility] (Rec: 06/26/24 10:55 [facility] [id number]) Physical Therapy Assessment Impairments Impairments Activity Tolerance,Soft Tissue Mobility,Strength Goals One Impairment low back pain with radicular symptoms left LE Impairment as high as 9/10 Short Term Goal (STG) decrease pain to no greater than 5/10 with all usual activities 05/01/24: min goal progress 06/16/24: back better 60%, but when it revs up it is terrible, can't sit, stand, or walk. Always bad when first gets up in am. Hip pain decreased with PT treatment. STG Duration 07/25/24 [facility] Goal (LTG) decrease pain to no greater than 3/10 with all usual activities to allow patient to return to PLF LTG Duration 08/10/24 Three Impairment weakness Impairment core and LE weakness left greater than right Short Term Goal (STG) Patient to be instructed in HEP for purposes of strerngthening and core stabilization 05/01/24: goal met, ongoing progression STG Duration goal met [facility] Goal (LTG) Patient to be independent and compliant with HEP and demonstrate improvement in all muscle groups to at least 4+/ 5 to allow her to return to usual activities. 06/16/24: met in knees and ankles, not hips and core though noting some goal progress LTG Duration 08/10/24 Two Impairment Activity tolerance Impairment Constant pain limiting sleep and all physical activity moderately by 75% per patient report. Oswestry disability index score. 57% Short Term Goal (STG) Decrease Oswestry score to no greater than 45% as measure of improved activity tolerance. 05/01/24: min progress 06/16/24: Reports improved after PT appointments for about 24 hours, pain variable, worst in am when first gets up and can be unpredictable; Did not get form filled out today. STG Duration 07/25/24 Pension Administrator Goal (LTG) Decrease Oswestry score to no greater than 25% as measure of improved activity tolerance and quality of life. Patient activity tolerance will improve sufficient to allow her to return to maintenance cardiac and pulmonary rehab program. LTG Duration 08/10/24 Progress Towards Goals Progress Towards Goals Slow Progress due to Medical Issues Assessment Summary Assessment thoracic pain appears musculoskeletal as previous. Patient unable to take NSAIDS. Can't rule out cardiac, but patient reports last time similar pain went to ER nothing found. Sees transitional care manager in 2 weeks. Low activity tolerance today due to poor sleep. Physical Therapy Plan Frequency and Duration Frequency of Treatment 2x/Week Duration of treatment (weeks) 8 Plan of Care Start Date 06/10/24 Plan of Care End Date 08/10/24 Therapeutic Interventions Therapeutic Interventions Home Exercise Program,Manual Therapy,Patient/Caregiver Education,Self-Care/Home Management,Soft Tissue Mobilization,Taping, Therapeutic Activities, Therapeutic Exercises Modalities Cold Pack/Ice Massage,Electric Stimulation,Hot Packs, Infrared Therapy,Ultrasound Next Visit Focus/Plan Next Note Type Treatment Note Next Visit Plan Assess response to last treatemtn, KT tape. Continue strengthing, postural correction, manual therapy, modalities PRN.
--- NOTE | 2024-06-30 10:42 | PT.OTN ---
Current Diagnoses Other chronic pain (06/30/24) Lumbago with sciatica, left side (06/30/24) Pain in thoracic spine (06/30/24) Weakness (06/30/24) Physical Therapy Treatment Note PT-OP-A Visit Information Start: 03/06/24 17:15 Freq: Status: Active Protocol: Document 06/30/24 09:42 [facility] (Rec: 06/30/24 10:42 [facility] [id number]) Out-Patient Physical Therapy Visit Information Visit Information Visit Type Treatment Note Visit Start Time 09:45 Visit Stop Time 09:45 Visit Number 15 Evaluation Information Evaluation Date 03/10/24 Precautions Precautions cardiac,long covid PMH: Hypertensive urgency History of MT (myocardial infarction) (~2020) History of CVA ( cerebrovascular accident) Concussion COVID-19 Sleep apnea Shoulder pain Diastolic heart failure Atrial fibrillation Iron deficiency anemia Ocular migraine History of stent insertion of renal artery Bone lesion Left renal artery stenosis (~ 11/22/20) 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 (~) Parumbilical hernia (~11/22/20 ) Hiatal hernia (~11/22/20) Osteopenia of femoral neck, bilateral (~02/2019) Macular degeneration, age related, nonexudative Dyslipidemia Thyroid nodule Proteus enteritis (~2018) EBV infection (~1962) Coccidioidomycosis (~1962) Heterozygous MTHFR mutation C677T Renal artery atherosclerosis ( 09/22/11) Systemic lupus erythematosus Atypical nevus of abdominal wall Lipoma Angioedema Statin intolerance Elevated coronary artery calcium score Prinzmetal's angina (1975) Hypertension CAD (coronary artery disease) (1979) Shingles (2016) Asthma History of recurrent pneumonia Severe obstructive sleep apnea -hypopnea syndrome (10/22/15) PT-OP-B Current Condition Start: 03/06/24 17:15 Freq: Status: Active Protocol: Document 06/30/24 09:42 [facility] (Rec: 06/30/24 10:42 [facility] [id number]) Current Condition History of Current Condition Onset Date December Current Complaints worsened back pain History of Current Condition Continues to struggle with long Covid; weakness and low energy. Couldn't continue with pulmonary rehab due to all medical issues. HIstory neck, thoracic, lumbar pain. States she was traveling and staying at friend's house, couldn't get out of friend's bed felt like my stomach was stuck to my spine. Difficulty getting in and out of friend's car. several times but pain worsened and has persisted. Only thing that helped was sitting on couch with semi firm pillow behind. Now very difficult still to get up. Can't lay on left side, still has stabbing pain right IT band. Back pain has now moved to her left buttock. Has had OMT treatments but had spasm in spine during one of her appts. can just bend over and has spasms, takes a long time to go away. Pain worst in am. Sleeps on right side but sometimes revs up IT band. A little better in am after walking a little bit. States she is cold a lot, tends to cross her arms across her chest due to this. 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 Won't take pain medication. Prior Treatments and Tests x-ray: negative EMG: PT-OP-C Subjective Start: 03/06/24 17:15 Freq: Status: Active Protocol: Document 06/30/24 09:42 [facility] (Rec: 06/30/24 10:42 [facility] [id number]) OP-PT Subjective Patient Comments Patient Comments Working hard on getting shoulders back, sore between shoulder blades. Feels tape was helpful in helping with PT . PT-OP-F Manual Assessment Start: 03/06/24 17:15 Freq: Status: Active Protocol: Document 03/10/24 17:17 [facility] (Rec: 03/13/24 17:44 [facility] [id number]) Manual Assessments Soft Tissue Assessment Soft Tissue Mobility Assessment tightnes lumbar paraspinals, left piriformis PT-OP-G Mobility & Gait Start: 03/06/24 17:15 Freq: Status: Active Protocol: Document 03/10/24 17:17 [facility] (Rec: 03/13/24 17:44 [facility] [id number]) OP Mobility Evaluation Bed Mobility Rolling patient unable to lay down Transfers Sit to Stand painful Car Transfers painful OP Gait Assessment Gait Gait Assistance Required: Independent Assistive Devices Assistive Device None Gait Deviations General Gait Pattern Antalgic,Decreased Stride Length,Decreased Feet Clearance,Wide Based Gait Factors Limiting Gait Function Factors Limiting Gait Function Decreased Activity Tolerance, Decreased Strength,Pain Stair Climbing Evaluation Technique/Endurance Stair Climbing Technique Step to Step PT-OP-H Neuro Start: 03/06/24 17:15 Freq: Status: Active Protocol: Document 03/10/24 17:17 [facility] (Rec: 03/13/24 17:44 [facility] [id number]) Sensation Evaluation Gross Sensation Gross Sensation Left LE Impaired Sensation Description Paresthesia,Numbness,Tingling PT-OP-J Posture/Palpation/Skin Start: 03/06/24 17:15 Freq: Status: Active Protocol: Document 03/10/24 17:17 [facility] (Rec: 03/13/24 17:44 [facility] [id number]) Posture Evaluation Position Standing Head/C-Spine Posture Forward Head T-Spine Posture Increased Kyphosis Shoulder Posture (L) Rounded,(R) Rounded Scapula Posture (L) Protracted,(R) Protracted Arm Posture (L) Internally Rotated,(R) Internally Rotated Pelvis Posture Anteriorly Tilted Weight Distribution Weight Shifted Right Hip Posture (L) Externally Rotated Knee Posture (L) Genu Valgus,(R) Genu Valgus Palpation Assessment Location lumbar spine Palpation Location L45 Palpation Findings Soft Tissue Tightness, Tenderness PT-OP-K Range of Motion Start: 03/06/24 17:15 Freq: Status: Active Protocol: Document 03/10/24 17:17 [facility] (Rec: 03/13/24 17:44 [facility] [id number]) Lumbar Spine Range of Motion Lumbar Spine Active Testing Position Standing ROM Limitations Soft Tissue Tightness,Pain Comments mod decrease all motions due to pain Hip Goniometric Range of Motion Hip Left Hip ROM WFL No Flexion w/Knee Flexed 100 Extension 0 Abduction 20 Internal Rotation 10 External Rotation 60 Right Active Hip ROM WFL Yes Hip ROM Limitations Hip ROM Limitations Soft Tissue Tightness,Pain Knee Goniometric Range of Motion Knee luisa Knee ROM WFL Yes Ankle and Foot Goniometric Range of Motion Ankle and Foot luisa Ankle/Foot ROM WFL Yes PT-OP-M Strength Start: 03/06/24 17:15 Freq: Status: Active Protocol: Document 03/10/24 17:17 [facility] (Rec: 03/13/24 17:44 [facility] [id number]) Hip Strength Hip Manual Muscle Testing Right Flexion (L2) 4 Good Extension (S1) 3+ Fair+ Abduction 4- Good- Adduction 4 Good External Rotation 4- Good- Internal Rotation 4 Good Left Flexion (L2) 4 Good Extension (S1) 3- Fair- Abduction 3- Fair- Adduction 4- Good- External Rotation 4- Good- Internal Rotation 4- Good- PT-OP-Q Treatments Start: 03/06/24 17:15 Freq: Status: Active Protocol: Document 06/30/24 09:42 [facility] (Rec: 06/30/24 10:42 [facility] [id number]) Cardio Equipment Recumbent Stepper (Sci-Fit) Duration (Minutes) 15 Resistance 1.7 Seat Position 9 Gym Equipment Shuttle Recovery Unilateral Squats Resistance 37 Shuttle Recovery Platform Stable Reps/Time 10x 2 Bilateral Squats Details cues for quad and gluteal activation Resistance 62 Shuttle Recovery Platform Stable Reps/Time 10x2 Shuttle Balance chains red, cords loose Details balance and weight shift fwd/ bck with feet sta, side stggered, side to side Reps/Duration 3 min Therapeutic Exercises Sitting Exercises scap retraction Reps/Minutes 5x5 Comments goalpost position deep breathing Reps/Minutes 2 min Comments into thoracic, braline region for rib expansion, muscle relaxation Standing Exercises chair squats Equipment Used no UE support Reps/Minutes 5x2 resisted sidestepping Resistance L1 TB hurdles Standing Exercise Name CGA Equipment Used no UE support Reps/Minutes 6 hurdles x 4 Comments 3x catching legs on hurdles second and 3rd times Gait Training Gait Activity hurdles Device Used wall bar PRN Level of Assistance CGA Distance/Duration 3x6 hurdles Treatment Focus hip flex strength Manual Therapy Treatment Soft Tissue Mobilization thoracic paraspinals Body Location leaning forward and upright sitting Mobilization Type Strumming,Sustained Pressure Intensity/Depth Moderate Body Position Sitting Comments states feels same area of pain from Sunday; bra-line painful with deep pressure or PA lumbar paraspinals Mobilization Type Myofascial Release,Strumming Intensity/Depth mod Body Position Sidelying Taping upper thoracic Treatment Focus postural correction Type of Tape KT Skin Inspection intact mid thoracic Type of Tape Kinesio Tape Skin Inspection intact Comments star pattern for pain relief Self-Care/Home Management Treatment Education Patient Education Body Mechanics,Home Exercise Program,Pain Management, Posture Other Education further emphasis postural correction, HEP previously given for postural correction, importance of supportive seating, PT-OP-R Modalities Start: 03/06/24 17:15 Freq: Status: Active Protocol: Document 06/30/24 09:42 [facility] (Rec: 06/30/24 10:42 [facility] [id number]) Hot Pack/Cold Pack Treatment Hot Pack Location lumbar, thoracic Patient Position Sitting Patient Tolerance Good Infrared Treatment Treatment thoracic spine Body Position Sitting Continuous/Pulsed Continuous Program or Protocal chronic stiffness and pain Comments T6-T9 PT-OP-T Assessment and Plan Start: 03/06/24 17:15 Freq: Status: Active Protocol: Document 06/30/24 09:42 [facility] (Rec: 06/30/24 10:42 [facility] [id number]) Physical Therapy Assessment Impairments Impairments Activity Tolerance,Soft Tissue Mobility,Strength Goals One Impairment low back pain with radicular symptoms left LE Impairment as high as 9/10 Short Term Goal (STG) decrease pain to no greater than 5/10 with all usual activities 05/01/24: min goal progress 06/16/24: back better 60%, but when it revs up it is terrible, can't sit, stand, or walk. Always bad when first gets up in am. Hip pain decreased with PT treatment. STG Duration 07/25/24 Group Home Goal (LTG) decrease pain to no greater than 3/10 with all usual activities to allow patient to return to PLF LTG Duration 08/10/24 Three Impairment weakness Impairment core and LE weakness left greater than right Short Term Goal (STG) Patient to be instructed in HEP for purposes of strerngthening and core stabilization 05/01/24: goal met, ongoing progression STG Duration goal met [employer] Goal (LTG) Patient to be independent and compliant with HEP and demonstrate improvement in all muscle groups to at least 4+/ 5 to allow her to return to usual activities. 06/16/24: met in knees and ankles, not hips and core though noting some goal progress LTG Duration 08/10/24 Two Impairment Activity tolerance Impairment Constant pain limiting sleep and all physical activity moderately by 75% per patient report. Oswestry disability index score. 57% Short Term Goal (STG) Decrease Oswestry score to no greater than 45% as measure of improved activity tolerance. 05/01/24: min progress 06/16/24: Reports improved after PT appointments for about 24 hours, pain variable, worst in am when first gets up and can be unpredictable; Did not get form filled out today. STG Duration 07/25/24 [employer] Goal (LTG) Decrease Oswestry score to no greater than 25% as measure of improved activity tolerance and quality of life. Patient activity tolerance will improve sufficient to allow her to return to maintenance cardiac and pulmonary rehab program. LTG Duration 08/10/24 Progress Towards Goals Progress Towards Goals Slow Progress due to Medical Issues Assessment Summary Assessment Patient chose increased resistance on Sci-Fit this am, highly motivated to improve general strength and activity tolerance. [place] KT tape helpful for thoracic pain. TRial cold laser to mid thoracic region with good mesha, 6 locations. Physical Therapy Plan Frequency and Duration Frequency of Treatment 2x/Week Duration of treatment (weeks) 8 Plan of Care Start Date 06/10/24 Plan of Care End Date 08/10/24 Therapeutic Interventions Therapeutic Interventions Home Exercise Program,Manual Therapy,Patient/Caregiver Education,Self-Care/Home Management,Soft Tissue Mobilization,Taping, Therapeutic Activities, Therapeutic Exercises Modalities Cold Pack/Ice Massage,Electric Stimulation,Hot Packs, Infrared Therapy,Ultrasound Next Visit Focus/Plan Next Note Type Treatment Note
--- NOTE | 2024-07-03 10:48 | PT.OTN ---
Current Diagnoses Other chronic pain (07/03/24) Lumbago with sciatica, left side (07/03/24) Pain in thoracic spine (07/03/24) Weakness (07/03/24) Physical Therapy Treatment Note PT-OP-A Visit Information Start: 03/06/24 17:15 Freq: Status: Active Protocol: Document 07/03/24 09:45 [facility] (Rec: 07/03/24 10:48 [facility] [id number]) Out-Patient Physical Therapy Visit Information Visit Information Visit Type Treatment Note Visit Start Time 09:45 Visit Number 16 Evaluation Information Evaluation Date 03/10/24 Precautions Precautions cardiac,long covid PMH: Hypertensive urgency History of [place] (myocardial infarction) (~2020) History of CVA ( cerebrovascular accident) Concussion COVID-19 Sleep apnea Shoulder pain Diastolic heart failure Atrial fibrillation Iron deficiency anemia Ocular migraine History of stent insertion of renal artery Bone lesion Left renal artery stenosis (~ 11/22/20) 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 (~) Parumbilical hernia (~11/22/20 ) Hiatal hernia (~11/22/20) Osteopenia of femoral neck, bilateral (~02/2019) Macular degeneration, age related, nonexudative Dyslipidemia Thyroid nodule Proteus enteritis (~2018) EBV infection (~1962) Coccidioidomycosis (~1962) Heterozygous MTHFR mutation C677T Renal artery atherosclerosis ( 09/22/11) Systemic lupus erythematosus Atypical nevus of abdominal wall Lipoma Angioedema Statin intolerance Elevated coronary artery calcium score Prinzmetal's angina (1975) Hypertension CAD (coronary artery disease) (1979) Shingles (2016) Asthma History of recurrent pneumonia Severe obstructive sleep apnea -hypopnea syndrome (10/22/15) PT-OP-B Current Condition Start: 03/06/24 17:15 Freq: Status: Active Protocol: Document 07/03/24 09:45 SAK (Rec: 07/03/24 10:48 SAK [id number]) Current Condition History of Current Condition Onset Date December Current Complaints worsened back pain History of Current Condition Continues to struggle with long Covid; weakness and low energy. Couldn't continue with pulmonary rehab due to all medical issues. HIstory neck, thoracic, lumbar pain. States she was traveling and staying at friend's house, couldn't get out of friend's bed felt like my stomach was stuck to my spine. Difficulty getting in and out of friend's car. several times but pain worsened and has persisted. Only thing that helped was sitting on couch with semi firm pillow behind. Now very difficult still to get up. Can't lay on left side, still has stabbing pain right IT band. Back pain has now moved to her left buttock. Has had OMT treatments but had spasm in spine during one of her appts. can just bend over and has spasms, takes a long time to go away. Pain worst in am. Sleeps on right side but sometimes revs up IT band. A little better in am after walking a little bit. States she is cold a lot, tends to cross her arms across her chest due to this. 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 Won't take pain medication. Prior Treatments and Tests x-ray: negative EMG: PT-OP-C Subjective Start: 03/06/24 17:15 Freq: Status: Active Protocol: Document 07/03/24 09:45 [facility] (Rec: 07/03/24 10:48 [facility] [id number]) OP-PT Subjective Patient Comments Patient Comments Feeling super weak, tired of being super weak. [place] laser some helpful though very sore today. Also feels tape helpful. 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 PT-OP-F Manual Assessment Start: 03/06/24 17:15 Freq: Status: Active Protocol: Document 03/10/24 17:17 [facility] (Rec: 03/13/24 17:44 [facility] [id number]) Manual Assessments Soft Tissue Assessment Soft Tissue Mobility Assessment tightnes lumbar paraspinals, left piriformis PT-OP-G Mobility & Gait Start: 03/06/24 17:15 Freq: Status: Active Protocol: Document 03/10/24 17:17 [facility] (Rec: 03/13/24 17:44 [facility] [id number]) OP Mobility Evaluation Bed Mobility Rolling patient unable to lay down Transfers Sit to Stand painful Car Transfers painful OP Gait Assessment Gait Gait Assistance Required: Independent Assistive Devices Assistive Device None Gait Deviations General Gait Pattern Antalgic,Decreased Stride Length,Decreased Feet Clearance,Wide Based Gait Factors Limiting Gait Function Factors Limiting Gait Function Decreased Activity Tolerance, Decreased Strength,Pain Stair Climbing Evaluation Technique/Endurance Stair Climbing Technique Step to Step PT-OP-H Neuro Start: 03/06/24 17:15 Freq: Status: Active Protocol: Document 03/10/24 17:17 [facility] (Rec: 03/13/24 17:44 [facility] [id number]) Sensation Evaluation Gross Sensation Gross Sensation Left LE Impaired Sensation Description Paresthesia,Numbness,Tingling PT-OP-J Posture/Palpation/Skin Start: 03/06/24 17:15 Freq: Status: Active Protocol: Document 03/10/24 17:17 [facility] (Rec: 03/13/24 17:44 [facility] [id number]) Posture Evaluation Position Standing Head/C-Spine Posture Forward Head T-Spine Posture Increased Kyphosis Shoulder Posture (L) Rounded,(R) Rounded Scapula Posture (L) Protracted,(R) Protracted Arm Posture (L) Internally Rotated,(R) Internally Rotated Pelvis Posture Anteriorly Tilted Weight Distribution Weight Shifted Right Hip Posture (L) Externally Rotated Knee Posture (L) Genu Valgus,(R) Genu Valgus Palpation Assessment Location lumbar spine Palpation Location L45 Palpation Findings Soft Tissue Tightness, Tenderness PT-OP-K Range of Motion Start: 03/06/24 17:15 Freq: Status: Active Protocol: Document 03/10/24 17:17 [facility] (Rec: 03/13/24 17:44 [facility] [id number]) Lumbar Spine Range of Motion Lumbar Spine Active Testing Position Standing ROM Limitations Soft Tissue Tightness,Pain Comments mod decrease all motions due to pain Hip Goniometric Range of Motion Hip Left Hip ROM WFL No Flexion w/Knee Flexed 100 Extension 0 Abduction 20 Internal Rotation 10 External Rotation 60 Right Active Hip ROM WFL Yes Hip ROM Limitations Hip ROM Limitations Soft Tissue Tightness,Pain Knee Goniometric Range of Motion Knee luisa Knee ROM WFL Yes Ankle and Foot Goniometric Range of Motion Ankle and Foot luisa Ankle/Foot ROM WFL Yes PT-OP-M Strength Start: 03/06/24 17:15 Freq: Status: Active Protocol: Document 03/10/24 17:17 [facility] (Rec: 03/13/24 17:44 [facility] [id number]) Hip Strength Hip Manual Muscle Testing Right Flexion (L2) 4 Good Extension (S1) 3+ Fair+ Abduction 4- Good- Adduction 4 Good External Rotation 4- Good- Internal Rotation 4 Good Left Flexion (L2) 4 Good Extension (S1) 3- Fair- Abduction 3- Fair- Adduction 4- Good- External Rotation 4- Good- Internal Rotation 4- Good- PT-OP-Q Treatments Start: 03/06/24 17:15 Freq: Status: Active Protocol: Document 07/03/24 09:45 [facility] (Rec: 07/03/24 10:48 [facility] [id number]) Cardio Equipment Recumbent Stepper (Sci-Fit) Duration (Minutes) 15 Resistance 1.7 Seat Position 10 Other 1.6 mi Gym Equipment Shuttle Recovery Unilateral Squats Resistance 37 Shuttle Recovery Platform Stable Reps/Time 10x 2 Bilateral Squats Details cues for quad and gluteal activation Resistance 62 Shuttle Recovery Platform Stable Reps/Time 10x2 Shuttle Balance chains red, cords loose Details balance and weight shift fwd/ bck with feet sta, side stggered, side to side Reps/Duration 3 min Therapeutic Exercises Sidelying Exercises hip abd Reps/Minutes 10x clam Reps/Minutes 10x Standing Exercises resisted sidestepping Resistance L1 TB hurdles Standing Exercise Name CGA Equipment Used no UE support Reps/Minutes 6 hurdles x 4 Comments 1x catching legs on hurdles second and 3rd times Gait Training Gait Activity hurdles Device Used wall bar PRN Level of Assistance CGA Distance/Duration 3x6 hurdles Treatment Focus hip flex strength Manual Therapy Treatment Soft Tissue Mobilization thoracic paraspinals Body Location leaning forward and upright sitting Mobilization Type Strumming,Sustained Pressure Intensity/Depth Moderate Body Position Sitting Comments states feels same area of pain from Sunday; bra-line painful with deep pressure or PA lumbar paraspinals Mobilization Type Myofascial Release,Strumming Intensity/Depth mod Body Position Sidelying Taping upper thoracic Treatment Focus postural correction Type of Tape KT Skin Inspection intact mid thoracic Type of Tape Kinesio Tape Skin Inspection intact Comments star pattern for pain relief Self-Care/Home Management Treatment Education Patient Education Body Mechanics,Home Exercise Program,Pain Management, Posture PT-OP-R Modalities Start: 03/06/24 17:15 Freq: Status: Active Protocol: Document 07/03/24 09:45 [facility] (Rec: 07/03/24 10:48 [facility] [id number]) Hot Pack/Cold Pack Treatment Hot Pack Location lumbar, thoracic Patient Position Sitting Patient Tolerance Good PT-OP-T Assessment and Plan Start: 03/06/24 17:15 Freq: Status: Active Protocol: Document 07/03/24 09:45 [facility] (Rec: 07/03/24 10:48 [facility] [id number]) Physical Therapy Assessment Impairments Impairments Activity Tolerance,Soft Tissue Mobility,Strength Goals One Impairment low back pain with radicular symptoms left LE Impairment as high as 9/10 Short Term Goal (STG) decrease pain to no greater than 5/10 with all usual activities 05/01/24: min goal progress 06/16/24: back better 60%, but when it revs up it is terrible, can't sit, stand, or walk. Always bad when first gets up in am. Hip pain decreased with PT treatment. STG Duration 07/25/24 Economic Forecaster Goal (LTG) decrease pain to no greater than 3/10 with all usual activities to allow patient to return to PLF LTG Duration 08/10/24 Three Impairment weakness Impairment core and LE weakness left greater than right Short Term Goal (STG) Patient to be instructed in HEP for purposes of strerngthening and core stabilization 05/01/24: goal met, ongoing progression STG Duration goal met Half-Way Goal (LTG) Patient to be independent and compliant with HEP and demonstrate improvement in all muscle groups to at least 4+/ 5 to allow her to return to usual activities. 06/16/24: met in knees and ankles, not hips and core though noting some goal progress LTG Duration 08/10/24 Two Impairment Activity tolerance Impairment Constant pain limiting sleep and all physical activity moderately by 75% per patient report. Oswestry disability index score. 57% Short Term Goal (STG) Decrease Oswestry score to no greater than 45% as measure of improved activity tolerance. 05/01/24: min progress 06/16/24: Reports improved after PT appointments for about 24 hours, pain variable, worst in am when first gets up and can be unpredictable; Did not get form filled out today. STG Duration 07/25/24 Half-Way Goal (LTG) Decrease Oswestry score to no greater than 25% as measure of improved activity tolerance and quality of life. Patient activity tolerance will improve sufficient to allow her to return to maintenance cardiac and pulmonary rehab program. LTG Duration 08/10/24 Progress Towards Goals Progress Towards Goals Slow Progress due to Medical Issues Assessment Summary Assessment Improved activity tolerance with PT despite c/o fatigue and weakness, inc resistance and distance on Sci-Fit. Patient compliant to new hip exercises with min c/o hip pain, focused on thoracic pain . Physical Therapy Plan Frequency and Duration Frequency of Treatment 2x/Week Duration of treatment (weeks) 8 Plan of Care Start Date 06/10/24 Plan of Care End Date 08/10/24 Therapeutic Interventions Therapeutic Interventions Home Exercise Program,Manual Therapy,Patient/Caregiver Education,Self-Care/Home Management,Soft Tissue Mobilization,Taping, Therapeutic Activities, Therapeutic Exercises Modalities Cold Pack/Ice Massage,Electric Stimulation,Hot Packs, Infrared Therapy,Ultrasound Next Visit Focus/Plan Next Note Type Treatment Note Next Visit Plan Further emphasis on thoracic extension and postural correction exercises, deep breathing
--- NOTE | 2024-07-07 10:39 | PT.OTN ---
Current Diagnoses Other chronic pain (07/07/24) Lumbago with sciatica, left side (07/07/24) Pain in thoracic spine (07/07/24) Weakness (07/07/24) Physical Therapy Treatment Note PT-OP-A Visit Information Start: 03/06/24 17:15 Freq: Status: Active Protocol: Document 07/07/24 09:44 [facility] (Rec: 07/07/24 10:39 [facility] [id number]) Out-Patient Physical Therapy Visit Information Visit Information Visit Type Treatment Note Visit Start Time 09:45 Visit Stop Time 10:45 Visit Number 17 Evaluation Information Evaluation Date 03/10/24 Precautions Precautions cardiac,long covid PMH: Hypertensive urgency History of [place] (myocardial infarction) (~2020) History of CVA ( cerebrovascular accident) Concussion COVID-19 Sleep apnea Shoulder pain Diastolic heart failure Atrial fibrillation Iron deficiency anemia Ocular migraine History of stent insertion of renal artery Bone lesion Left renal artery stenosis (~ 11/22/20) 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 (~) Parumbilical hernia (~11/22/20 ) Hiatal hernia (~11/22/20) Osteopenia of femoral neck, bilateral (~02/2019) Macular degeneration, age related, nonexudative Dyslipidemia Thyroid nodule Proteus enteritis (~2018) EBV infection (~1962) Coccidioidomycosis (~1962) Heterozygous MTHFR mutation C677T Renal artery atherosclerosis ( 09/22/11) Systemic lupus erythematosus Atypical nevus of abdominal wall Lipoma Angioedema Statin intolerance Elevated coronary artery calcium score Prinzmetal's angina (1975) Hypertension CAD (coronary artery disease) (1979) Shingles (2016) Asthma History of recurrent pneumonia Severe obstructive sleep apnea -hypopnea syndrome (10/22/15) PT-OP-B Current Condition Start: 03/06/24 17:15 Freq: Status: Active Protocol: Document 07/07/24 09:44 [facility] (Rec: 07/07/24 10:39 [facility] [id number]) Current Condition History of Current Condition Onset Date December Current Complaints worsened back pain History of Current Condition Continues to struggle with long Covid; weakness and low energy. Couldn't continue with pulmonary rehab due to all medical issues. HIstory neck, thoracic, lumbar pain. States she was traveling and staying at friend's house, couldn't get out of friend's bed felt like my stomach was stuck to my spine. Difficulty getting in and out of friend's car. several times but pain worsened and has persisted. Only thing that helped was sitting on couch with semi firm pillow behind. Now very difficult still to get up. Can't lay on left side, still has stabbing pain right IT band. Back pain has now moved to her left buttock. Has had OMT treatments but had spasm in spine during one of her appts. can just bend over and has spasms, takes a long time to go away. Pain worst in am. Sleeps on right side but sometimes revs up IT band. A little better in am after walking a little bit. States she is cold a lot, tends to cross her arms across her chest due to this. 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 Won't take pain medication. Prior Treatments and Tests x-ray: negative EMG: PT-OP-C Subjective Start: 03/06/24 17:15 Freq: Status: Active Protocol: Document 07/07/24 09:44 [facility] (Rec: 07/07/24 10:39 [facility] [id number]) OP-PT Subjective Patient Comments Patient Comments No new c/o. PT-OP-F Manual Assessment Start: 03/06/24 17:15 Freq: Status: Active Protocol: Document 03/10/24 17:17 [facility] (Rec: 03/13/24 17:44 [facility] [id number]) Manual Assessments Soft Tissue Assessment Soft Tissue Mobility Assessment tightnes lumbar paraspinals, left piriformis PT-OP-G Mobility & Gait Start: 03/06/24 17:15 Freq: Status: Active Protocol: Document 03/10/24 17:17 [facility] (Rec: 03/13/24 17:44 [facility] [id number]) OP Mobility Evaluation Bed Mobility Rolling patient unable to lay down Transfers Sit to Stand painful Car Transfers painful OP Gait Assessment Gait Gait Assistance Required: Independent Assistive Devices Assistive Device None Gait Deviations General Gait Pattern Antalgic,Decreased Stride Length,Decreased Feet Clearance,Wide Based Gait Factors Limiting Gait Function Factors Limiting Gait Function Decreased Activity Tolerance, Decreased Strength,Pain Stair Climbing Evaluation Technique/Endurance Stair Climbing Technique Step to Step PT-OP-H Neuro Start: 03/06/24 17:15 Freq: Status: Active Protocol: Document 03/10/24 17:17 [facility] (Rec: 03/13/24 17:44 [facility] [id number]) Sensation Evaluation Gross Sensation Gross Sensation Left LE Impaired Sensation Description Paresthesia,Numbness,Tingling PT-OP-J Posture/Palpation/Skin Start: 03/06/24 17:15 Freq: Status: Active Protocol: Document 03/10/24 17:17 [facility] (Rec: 03/13/24 17:44 [facility] [id number]) Posture Evaluation Position Standing Head/C-Spine Posture Forward Head T-Spine Posture Increased Kyphosis Shoulder Posture (L) Rounded,(R) Rounded Scapula Posture (L) Protracted,(R) Protracted Arm Posture (L) Internally Rotated,(R) Internally Rotated Pelvis Posture Anteriorly Tilted Weight Distribution Weight Shifted Right Hip Posture (L) Externally Rotated Knee Posture (L) Genu Valgus,(R) Genu Valgus Palpation Assessment Location lumbar spine Palpation Location L45 Palpation Findings Soft Tissue Tightness, Tenderness PT-OP-K Range of Motion Start: 03/06/24 17:15 Freq: Status: Active Protocol: Document 03/10/24 17:17 [facility] (Rec: 03/13/24 17:44 [facility] [id number]) Lumbar Spine Range of Motion Lumbar Spine Active Testing Position Standing ROM Limitations Soft Tissue Tightness,Pain Comments mod decrease all motions due to pain Hip Goniometric Range of Motion Hip Left Hip ROM WFL No Flexion w/Knee Flexed 100 Extension 0 Abduction 20 Internal Rotation 10 External Rotation 60 Right Active Hip ROM WFL Yes Hip ROM Limitations Hip ROM Limitations Soft Tissue Tightness,Pain Knee Goniometric Range of Motion Knee luisa Knee ROM WFL Yes Ankle and Foot Goniometric Range of Motion Ankle and Foot luisa Ankle/Foot ROM WFL Yes PT-OP-M Strength Start: 03/06/24 17:15 Freq: Status: Active Protocol: Document 03/10/24 17:17 [facility] (Rec: 03/13/24 17:44 [facility] [id number]) Hip Strength Hip Manual Muscle Testing Right Flexion (L2) 4 Good Extension (S1) 3+ Fair+ Abduction 4- Good- Adduction 4 Good External Rotation 4- Good- Internal Rotation 4 Good Left Flexion (L2) 4 Good Extension (S1) 3- Fair- Abduction 3- Fair- Adduction 4- Good- External Rotation 4- Good- Internal Rotation 4- Good- PT-OP-Q Treatments Start: 03/06/24 17:15 Freq: Status: Active Protocol: Document 07/07/24 09:44 [facility] (Rec: 07/07/24 10:39 [facility] [id number]) Cardio Equipment Recumbent Stepper (Sci-Fit) Duration (Minutes) 15 Resistance 1.7 Seat Position 10 Other mi Gym Equipment Shuttle Recovery Unilateral Squats Resistance 37 Shuttle Recovery Platform Stable Reps/Time 10x 2 Bilateral Squats Details cues for quad and gluteal activation Resistance 62 Shuttle Recovery Platform Stable Reps/Time 10x2 Shuttle Balance chains red, cords loose Details balance and weight shift fwd/ bck with feet sta, side stggered, side to side Reps/Duration 3 min Therapeutic Exercises Standing Exercises hurdles Standing Exercise Name CGA Equipment Used no UE support Reps/Minutes 6 hurdles x 4, foam Comments 1x catching legs on hurdles second and 3rd times Manual Therapy Treatment Soft Tissue Mobilization thoracic paraspinals Body Location leaning forward and upright sitting Mobilization Type Strumming,Sustained Pressure Intensity/Depth Moderate Body Position Sitting Comments states feels same area of pain from Sunday; bra-line painful with deep pressure or PA lumbar paraspinals Mobilization Type Myofascial Release,Strumming Intensity/Depth mod Body Position Sidelying Taping upper thoracic Treatment Focus postural correction Type of Tape KT Skin Inspection intact Comments 1 I strip mid thoracic Type of Tape Kinesio Tape Skin Inspection intact Comments star pattern for pain relief plus parallel I strips either side of spine paper off tension Self-Care/Home Management Treatment Education Patient Education Body Mechanics,Home Exercise Program,Pain Management, Posture PT-OP-R Modalities Start: 03/06/24 17:15 Freq: Status: Active Protocol: Document 07/03/24 09:45 [facility] (Rec: 07/03/24 10:48 [facility] [id number]) Hot Pack/Cold Pack Treatment Hot Pack Location lumbar, thoracic Patient Position Sitting Patient Tolerance Good PT-OP-T Assessment and Plan Start: 03/06/24 17:15 Freq: Status: Active Protocol: Document 07/07/24 09:44 [facility] (Rec: 07/07/24 10:39 [facility] [id number]) Physical Therapy Assessment Impairments Impairments Activity Tolerance,Soft Tissue Mobility,Strength Goals One Impairment low back pain with radicular symptoms left LE Impairment as high as 9/10 Short Term Goal (STG) decrease pain to no greater than 5/10 with all usual activities 05/01/24: min goal progress 06/16/24: back better 60%, but when it revs up it is terrible, can't sit, stand, or walk. Always bad when first gets up in am. Hip pain decreased with PT treatment. STG Duration 07/25/24 Skilled Nursing Goal (LTG) decrease pain to no greater than 3/10 with all usual activities to allow patient to return to PLF LTG Duration 08/10/24 Three Impairment weakness Impairment core and LE weakness left greater than right Short Term Goal (STG) Patient to be instructed in HEP for purposes of strerngthening and core stabilization 05/01/24: goal met, ongoing progression STG Duration goal met Skilled Nursing Goal (LTG) Patient to be independent and compliant with HEP and demonstrate improvement in all muscle groups to at least 4+/ 5 to allow her to return to usual activities. 06/16/24: met in knees and ankles, not hips and core though noting some goal progress LTG Duration 08/10/24 Two Impairment Activity tolerance Impairment Constant pain limiting sleep and all physical activity moderately by 75% per patient report. Oswestry disability index score. 57% Short Term Goal (STG) Decrease Oswestry score to no greater than 45% as measure of improved activity tolerance. 05/01/24: min progress 06/16/24: Reports improved after PT appointments for about 24 hours, pain variable, worst in am when first gets up and can be unpredictable; Did not get form filled out today. STG Duration 07/25/24 Director Of Vocational Training Goal (LTG) Decrease Oswestry score to no greater than 25% as measure of improved activity tolerance and quality of life. Patient activity tolerance will improve sufficient to allow her to return to maintenance cardiac and pulmonary rehab program. LTG Duration 08/10/24 Progress Towards Goals Progress Towards Goals Slow Progress due to Medical Issues Assessment Summary Assessment Patient continues to fatigue very rapidly with ther ex but highly motivated and works hard despite the fatigue. Occasional rest breaks. Reports benfit form KT tape thoracic spine, had PT aide take video today so patient sister can tape patient. Physical Therapy Plan Frequency and Duration Frequency of Treatment 2x/Week Duration of treatment (weeks) 8 Plan of Care Start Date 06/10/24 Plan of Care End Date 08/10/24 Therapeutic Interventions Therapeutic Interventions Home Exercise Program,Manual Therapy,Patient/Caregiver Education,Self-Care/Home Management,Soft Tissue Mobilization,Taping, Therapeutic Activities, Therapeutic Exercises Modalities Cold Pack/Ice Massage,Electric Stimulation,Hot Packs, Infrared Therapy,Ultrasound Next Visit Focus/Plan Next Note Type Treatment Note Next Visit Plan Further emphasis on thoracic extension and postural correction exercises, deep breathing
--- NOTE | 2024-07-10 10:07 | PT-OP ANOTE ---
cancelled due to schedule conflict
--- NOTE | 2024-07-14 12:18 | PT.OTN ---
Current Diagnoses Other chronic pain (07/14/24) Lumbago with sciatica, left side (07/14/24) Pain in thoracic spine (07/14/24) Weakness (07/14/24) Physical Therapy Treatment Note PT-OP-A Visit Information Start: 03/06/24 17:15 Freq: Status: Active Protocol: Document 07/14/24 11:27 [facility] (Rec: 07/14/24 12:17 [facility]AK [id number]) Out-Patient Physical Therapy Visit Information Visit Information Visit Type Treatment Note Visit Start Time 11:27 Visit Number 18 Precautions Precautions cardiac,long covid PMH: Hypertensive urgency History of [place] (myocardial infarction) (~2020) History of CVA ( cerebrovascular accident) Concussion COVID-19 Sleep apnea Shoulder pain Diastolic heart failure Atrial fibrillation Iron deficiency anemia Ocular migraine History of stent insertion of renal artery Bone lesion Left renal artery stenosis (~ 11/22/20) 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 (~) Parumbilical hernia (~11/22/20 ) Hiatal hernia (~11/22/20) Osteopenia of femoral neck, bilateral (~02/2019) Macular degeneration, age related, nonexudative Dyslipidemia Thyroid nodule Proteus enteritis (~2018) EBV infection (~1962) Coccidioidomycosis (~1962) Heterozygous MTHFR mutation C677T Renal artery atherosclerosis ( 09/22/11) Systemic lupus erythematosus Atypical nevus of abdominal wall Lipoma Angioedema Statin intolerance Elevated coronary artery calcium score Prinzmetal's angina (1975) Hypertension CAD (coronary artery disease) (1979) Shingles (2016) Asthma History of recurrent pneumonia Severe obstructive sleep apnea -hypopnea syndrome (10/22/15) PT-OP-B Current Condition Start: 03/06/24 17:15 Freq: Status: Active Protocol: Document 07/14/24 11:27 SAK (Rec: 07/14/24 12:17 SAK [id number]) Current Condition History of Current Condition Onset Date December Current Complaints worsened back pain History of Current Condition Continues to struggle with long Covid; weakness and low energy. Couldn't continue with pulmonary rehab due to all medical issues. HIstory neck, thoracic, lumbar pain. States she was traveling and staying at friend's house, couldn't get out of friend's bed felt like my stomach was stuck to my spine. Difficulty getting in and out of friend's car. several times but pain worsened and has persisted. Only thing that helped was sitting on couch with semi firm pillow behind. Now very difficult still to get up. Can't lay on left side, still has stabbing pain right IT band. Back pain has now moved to her left buttock. Has had OMT treatments but had spasm in spine during one of her appts. can just bend over and has spasms, takes a long time to go away. Pain worst in am. Sleeps on right side but sometimes revs up IT band. A little better in am after walking a little bit. States she is cold a lot, tends to cross her arms across her chest due to this. 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 Won't take pain medication. Prior Treatments and Tests x-ray: negative EMG: PT-OP-C Subjective Start: 03/06/24 17:15 Freq: Status: Active Protocol: Document 07/14/24 11:27 [facility] (Rec: 07/14/24 12:17 [facility] [id number]) OP-PT Subjective Patient Comments Patient Comments Saw assurance manager insurance last week, reports pleased with nuclear scan and ejection fraction, no solution for anemia and fatigue. PT-OP-F Manual Assessment Start: 03/06/24 17:15 Freq: Status: Active Protocol: Document 03/10/24 17:17 [facility] (Rec: 03/13/24 17:44 [facility] [id number]) Manual Assessments Soft Tissue Assessment Soft Tissue Mobility Assessment tightnes lumbar paraspinals, left piriformis PT-OP-G Mobility & Gait Start: 03/06/24 17:15 Freq: Status: Active Protocol: Document 03/10/24 17:17 [facility] (Rec: 03/13/24 17:44 [facility] [id number]) OP Mobility Evaluation Bed Mobility Rolling patient unable to lay down Transfers Sit to Stand painful Car Transfers painful OP Gait Assessment Gait Gait Assistance Required: Independent Assistive Devices Assistive Device None Gait Deviations General Gait Pattern Antalgic,Decreased Stride Length,Decreased Feet Clearance,Wide Based Gait Factors Limiting Gait Function Factors Limiting Gait Function Decreased Activity Tolerance, Decreased Strength,Pain Stair Climbing Evaluation Technique/Endurance Stair Climbing Technique Step to Step PT-OP-H Neuro Start: 03/06/24 17:15 Freq: Status: Active Protocol: Document 03/10/24 17:17 [facility] (Rec: 03/13/24 17:44 [facility] [id number]) Sensation Evaluation Gross Sensation Gross Sensation Left LE Impaired Sensation Description Paresthesia,Numbness,Tingling PT-OP-J Posture/Palpation/Skin Start: 03/06/24 17:15 Freq: Status: Active Protocol: Document 03/10/24 17:17 [facility] (Rec: 03/13/24 17:44 [facility] [id number]) Posture Evaluation Position Standing Head/C-Spine Posture Forward Head T-Spine Posture Increased Kyphosis Shoulder Posture (L) Rounded,(R) Rounded Scapula Posture (L) Protracted,(R) Protracted Arm Posture (L) Internally Rotated,(R) Internally Rotated Pelvis Posture Anteriorly Tilted Weight Distribution Weight Shifted Right Hip Posture (L) Externally Rotated Knee Posture (L) Genu Valgus,(R) Genu Valgus Palpation Assessment Location lumbar spine Palpation Location L45 Palpation Findings Soft Tissue Tightness, Tenderness PT-OP-K Range of Motion Start: 03/06/24 17:15 Freq: Status: Active Protocol: Document 03/10/24 17:17 [facility] (Rec: 03/13/24 17:44 [facility] [id number]) Lumbar Spine Range of Motion Lumbar Spine Active Testing Position Standing ROM Limitations Soft Tissue Tightness,Pain Comments mod decrease all motions due to pain Hip Goniometric Range of Motion Hip Left Hip ROM WFL No Flexion w/Knee Flexed 100 Extension 0 Abduction 20 Internal Rotation 10 External Rotation 60 Right Active Hip ROM WFL Yes Hip ROM Limitations Hip ROM Limitations Soft Tissue Tightness,Pain Knee Goniometric Range of Motion Knee luisa Knee ROM WFL Yes Ankle and Foot Goniometric Range of Motion Ankle and Foot luisa Ankle/Foot ROM WFL Yes PT-OP-M Strength Start: 03/06/24 17:15 Freq: Status: Active Protocol: Document 03/10/24 17:17 [facility] (Rec: 03/13/24 17:44 [facility] [id number]) Hip Strength Hip Manual Muscle Testing Right Flexion (L2) 4 Good Extension (S1) 3+ Fair+ Abduction 4- Good- Adduction 4 Good External Rotation 4- Good- Internal Rotation 4 Good Left Flexion (L2) 4 Good Extension (S1) 3- Fair- Abduction 3- Fair- Adduction 4- Good- External Rotation 4- Good- Internal Rotation 4- Good- PT-OP-Q Treatments Start: 03/06/24 17:15 Freq: Status: Active Protocol: Document 07/14/24 11:27 [facility] (Rec: 07/14/24 12:17 [facility] [id number]) Cardio Equipment Recumbent Stepper (Sci-Fit) Duration (Minutes) 15 Resistance 1.7 Seat Position 10 Other 1mi Gym Equipment Shuttle Balance chains red, cords loose Details balance and weight shift fwd/ bck with feet sta, side stggered, side to side Reps/Duration 3 min Therapeutic Exercises Sitting Exercises goal post Reps/Minutes 5x Comments cues for thoracic extension scap retraction Reps/Minutes 5x5 Comments goalpost position Standing Exercises hurdles Standing Exercise Name CGA Equipment Used no UE support Reps/Minutes 6 hurdles x 4, foam in betweeen hurdles Comments needed min to mod UE support Manual Therapy Treatment Soft Tissue Mobilization thoracic paraspinals Body Location leaning forward and upright sitting Mobilization Type Strumming,Sustained Pressure Intensity/Depth Moderate Body Position Sitting Comments states feels same area of pain from Sunday; bra-line painful with deep pressure or PA lumbar paraspinals Mobilization Type Myofascial Release,Strumming Intensity/Depth mod Body Position Sidelying Taping upper thoracic Treatment Focus postural correction Type of Tape KT Skin Inspection intact Comments 1 I strip mid thoracic Type of Tape Kinesio Tape Skin Inspection intact Comments star pattern for pain relief plus parallel I strips either side of spine paper off tension PT-OP-R Modalities Start: 03/06/24 17:15 Freq: Status: Active Protocol: Document 07/14/24 11:27 [facility] (Rec: 07/14/24 12:18 [facility] [id number]) Hot Pack/Cold Pack Treatment Hot Pack Location lumbar, thoracic Patient Position Sitting Patient Tolerance Good PT-OP-T Assessment and Plan Start: 03/06/24 17:15 Freq: Status: Active Protocol: Document 07/14/24 11:27 [facility] (Rec: 07/14/24 12:17 [facility] [id number]) Physical Therapy Assessment Impairments Impairments Activity Tolerance,Soft Tissue Mobility,Strength Goals One Impairment low back pain with radicular symptoms left LE Impairment as high as 9/10 Short Term Goal (STG) decrease pain to no greater than 5/10 with all usual activities 05/01/24: min goal progress 06/16/24: back better 60%, but when it revs up it is terrible, can't sit, stand, or walk. Always bad when first gets up in am. Hip pain decreased with PT treatment. STG Duration 07/25/24 Electro Mechanical Technician Goal (LTG) decrease pain to no greater than 3/10 with all usual activities to allow patient to return to PLF LTG Duration 08/10/24 Three Impairment weakness Impairment core and LE weakness left greater than right Short Term Goal (STG) Patient to be instructed in HEP for purposes of strerngthening and core stabilization 05/01/24: goal met, ongoing progression STG Duration goal met Electro Mechanical Technician Goal (LTG) Patient to be independent and compliant with HEP and demonstrate improvement in all muscle groups to at least 4+/ 5 to allow her to return to usual activities. 06/16/24: met in knees and ankles, not hips and core though noting some goal progress LTG Duration 08/10/24 Two Impairment Activity tolerance Impairment Constant pain limiting sleep and all physical activity moderately by 75% per patient report. Oswestry disability index score. 57% Short Term Goal (STG) Decrease Oswestry score to no greater than 45% as measure of improved activity tolerance. 05/01/24: min progress 06/16/24: Reports improved after PT appointments for about 24 hours, pain variable, worst in am when first gets up and can be unpredictable; Did not get form filled out today. STG Duration 07/25/24 Senior Care Goal (LTG) Decrease Oswestry score to no greater than 25% as measure of improved activity tolerance and quality of life. Patient activity tolerance will improve sufficient to allow her to return to maintenance cardiac and pulmonary rehab program. LTG Duration 08/10/24 Assessment Summary Assessment Patient saw assurance manager insurance last week. States she continues to try to work harder despite her fatigue from anemia and long Covid, wants to try to increase resistance on Sci-Fit next session. PT recommended recumbant elliptical or bicycle at home to be able to do more frequently. Physical Therapy Plan Frequency and Duration Frequency of Treatment 2x/Week Duration of treatment (weeks) 8 Plan of Care Start Date 06/10/24 Plan of Care End Date 08/10/24 Therapeutic Interventions Therapeutic Interventions Home Exercise Program,Manual Therapy,Patient/Caregiver Education,Self-Care/Home Management,Soft Tissue Mobilization,Taping, Therapeutic Activities, Therapeutic Exercises Modalities Cold Pack/Ice Massage,Electric Stimulation,Hot Packs, Infrared Therapy,Ultrasound Next Visit Focus/Plan Next Note Type Treatment Note Next Visit Plan Continue PT per POC for strengthening, pain management , postural correction, deep breathing.
--- NOTE | 2024-07-30 16:08 | PT.OTN ---
Current Diagnoses Other chronic pain (07/30/24) Lumbago with sciatica, left side (07/30/24) Pain in thoracic spine (07/30/24) Weakness (07/30/24) Physical Therapy Treatment Note PT-OP-A Visit Information Start: 03/06/24 17:15 Freq: Status: Active Protocol: Document 07/30/24 09:08 [facility]AK (Rec: 07/30/24 09:46 [facility] [id number]) Out-Patient Physical Therapy Visit Information Visit Information Visit Type Treatment Note Visit Start Time 09:05 Visit Stop Time 09:55 Visit Number 19 Evaluation Information Evaluation Date 03/10/24 Precautions Precautions cardiac,long covid PMH: Hypertensive urgency History of [place] (myocardial infarction) (~2020) History of CVA ( cerebrovascular accident) Concussion COVID-19 Sleep apnea Shoulder pain Diastolic heart failure Atrial fibrillation Iron deficiency anemia Ocular migraine History of stent insertion of renal artery Bone lesion Left renal artery stenosis (~ 11/22/20) 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 (~) Parumbilical hernia (~11/22/20 ) Hiatal hernia (~11/22/20) Osteopenia of femoral neck, bilateral (~02/2019) Macular degeneration, age related, nonexudative Dyslipidemia Thyroid nodule Proteus enteritis (~2018) EBV infection (~1962) Coccidioidomycosis (~1962) Heterozygous MTHFR mutation C677T Renal artery atherosclerosis ( 09/22/11) Systemic lupus erythematosus Atypical nevus of abdominal wall Lipoma Angioedema Statin intolerance Elevated coronary artery calcium score Prinzmetal's angina (1975) Hypertension CAD (coronary artery disease) (1979) Shingles (2016) Asthma History of recurrent pneumonia Severe obstructive sleep apnea -hypopnea syndrome (10/22/15) PT-OP-B Current Condition Start: 03/06/24 17:15 Freq: Status: Active Protocol: Document 07/30/24 09:08 [facility]AK (Rec: 07/30/24 09:46 [facility] [id number]) Current Condition History of Current Condition Onset Date December Current Complaints worsened back pain History of Current Condition Continues to struggle with long Covid; weakness and low energy. Couldn't continue with pulmonary rehab due to all medical issues. HIstory neck, thoracic, lumbar pain. States she was traveling and staying at friend's house, couldn't get out of friend's bed felt like my stomach was stuck to my spine. Difficulty getting in and out of friend's car. several times but pain worsened and has persisted. Only thing that helped was sitting on couch with semi firm pillow behind. Now very difficult still to get up. Can't lay on left side, still has stabbing pain right IT band. Back pain has now moved to her left buttock. Has had OMT treatments but had spasm in spine during one of her appts. can just bend over and has spasms, takes a long time to go away. Pain worst in am. Sleeps on right side but sometimes revs up IT band. A little better in am after walking a little bit. States she is cold a lot, tends to cross her arms across her chest due to this. 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 Won't take pain medication. Prior Treatments and Tests x-ray: negative EMG: PT-OP-C Subjective Start: 03/06/24 17:15 Freq: Status: Active Protocol: Document 07/30/24 09:08 [facility] (Rec: 07/30/24 09:46 [facility] [id number]) OP-PT Subjective Patient Comments Patient Comments Just saw Dr. Torres, Patient has started Valeriano Chi but reports poorly tolerated, discussed need to sit. PT advised maintenance cardiac or pulmonary rehab, states cardiac rehab staff say she isn't healthy enough. PT-OP-F Manual Assessment Start: 03/06/24 17:15 Freq: Status: Active Protocol: Document 03/10/24 17:17 [facility] (Rec: 03/13/24 17:44 [facility] [id number]) Manual Assessments Soft Tissue Assessment Soft Tissue Mobility Assessment tightnes lumbar paraspinals, left piriformis PT-OP-G Mobility & Gait Start: 03/06/24 17:15 Freq: Status: Active Protocol: Document 03/10/24 17:17 [facility] (Rec: 03/13/24 17:44 [facility] [id number]) OP Mobility Evaluation Bed Mobility Rolling patient unable to lay down Transfers Sit to Stand painful Car Transfers painful OP Gait Assessment Gait Gait Assistance Required: Independent Assistive Devices Assistive Device None Gait Deviations General Gait Pattern Antalgic,Decreased Stride Length,Decreased Feet Clearance,Wide Based Gait Factors Limiting Gait Function Factors Limiting Gait Function Decreased Activity Tolerance, Decreased Strength,Pain Stair Climbing Evaluation Technique/Endurance Stair Climbing Technique Step to Step PT-OP-H Neuro Start: 03/06/24 17:15 Freq: Status: Active Protocol: Document 03/10/24 17:17 [facility] (Rec: 03/13/24 17:44 [facility] [id number]) Sensation Evaluation Gross Sensation Gross Sensation Left LE Impaired Sensation Description Paresthesia,Numbness,Tingling PT-OP-J Posture/Palpation/Skin Start: 03/06/24 17:15 Freq: Status: Active Protocol: Document 03/10/24 17:17 [facility] (Rec: 03/13/24 17:44 [facility] [id number]) Posture Evaluation Position Standing Head/C-Spine Posture Forward Head T-Spine Posture Increased Kyphosis Shoulder Posture (L) Rounded,(R) Rounded Scapula Posture (L) Protracted,(R) Protracted Arm Posture (L) Internally Rotated,(R) Internally Rotated Pelvis Posture Anteriorly Tilted Weight Distribution Weight Shifted Right Hip Posture (L) Externally Rotated Knee Posture (L) Genu Valgus,(R) Genu Valgus Palpation Assessment Location lumbar spine Palpation Location L45 Palpation Findings Soft Tissue Tightness, Tenderness PT-OP-K Range of Motion Start: 03/06/24 17:15 Freq: Status: Active Protocol: Document 03/10/24 17:17 [facility] (Rec: 03/13/24 17:44 [facility] [id number]) Lumbar Spine Range of Motion Lumbar Spine Active Testing Position Standing ROM Limitations Soft Tissue Tightness,Pain Comments mod decrease all motions due to pain Hip Goniometric Range of Motion Hip Left Hip ROM WFL No Flexion w/Knee Flexed 100 Extension 0 Abduction 20 Internal Rotation 10 External Rotation 60 Right Active Hip ROM WFL Yes Hip ROM Limitations Hip ROM Limitations Soft Tissue Tightness,Pain Knee Goniometric Range of Motion Knee luisa Knee ROM WFL Yes Ankle and Foot Goniometric Range of Motion Ankle and Foot luisa Ankle/Foot ROM WFL Yes PT-OP-M Strength Start: 03/06/24 17:15 Freq: Status: Active Protocol: Document 03/10/24 17:17 [facility] (Rec: 03/13/24 17:44 [facility] [id number]) Hip Strength Hip Manual Muscle Testing Right Flexion (L2) 4 Good Extension (S1) 3+ Fair+ Abduction 4- Good- Adduction 4 Good External Rotation 4- Good- Internal Rotation 4 Good Left Flexion (L2) 4 Good Extension (S1) 3- Fair- Abduction 3- Fair- Adduction 4- Good- External Rotation 4- Good- Internal Rotation 4- Good- PT-OP-Q Treatments Start: 03/06/24 17:15 Freq: Status: Active Protocol: Document 07/30/24 09:08 [facility] (Rec: 07/30/24 09:46 [facility] [id number]) Cardio Equipment Recumbent Stepper (Sci-Fit) Duration (Minutes) 6 Resistance 1.7 Seat Position 1-0 Gym Equipment Shuttle Recovery Unilateral Squats Resistance 37 Shuttle Recovery Platform Stable Reps/Time 10x 2 Bilateral Squats Details cues for quad and gluteal activation Resistance 62 Shuttle Recovery Platform Stable Reps/Time 10x2 Therapeutic Exercises Sitting Exercises goal post Reps/Minutes 5x Comments cues for thoracic extension scap retraction Reps/Minutes 5x5 Comments goalpost position Manual Therapy Treatment Soft Tissue Mobilization thoracic paraspinals Body Location leaning forward and upright sitting Mobilization Type Strumming,Sustained Pressure Intensity/Depth Moderate Body Position Sitting PT-OP-R Modalities Start: 03/06/24 17:15 Freq: Status: Active Protocol: Document 07/14/24 11:27 [facility] (Rec: 07/14/24 12:18 [facility] [id number]) Hot Pack/Cold Pack Treatment Hot Pack Location lumbar, thoracic Patient Position Sitting Patient Tolerance Good PT-OP-T Assessment and Plan Start: 03/06/24 17:15 Freq: Status: Active Protocol: Document 07/30/24 09:08 [facility] (Rec: 07/30/24 09:46 [facility] [id number]) Physical Therapy Assessment Impairments Impairments Activity Tolerance,Soft Tissue Mobility,Strength Goals One Impairment low back pain with radicular symptoms left LE Impairment as high as 9/10 Short Term Goal (STG) decrease pain to no greater than 5/10 with all usual activities 05/01/24: min goal progress 06/16/24: back better 60%, but when it revs up it is terrible, can't sit, stand, or walk. Always bad when first gets up in am. Hip pain decreased with PT treatment. STG Duration 07/25/24 Glass Blower Helper Goal (LTG) decrease pain to no greater than 3/10 with all usual activities to allow patient to return to PLF LTG Duration 08/10/24 Three Impairment weakness Impairment core and LE weakness left greater than right Short Term Goal (STG) Patient to be instructed in HEP for purposes of strerngthening and core stabilization 05/01/24: goal met, ongoing progression STG Duration goal met Custodial Goal (LTG) Patient to be independent and compliant with HEP and demonstrate improvement in all muscle groups to at least 4+/ 5 to allow her to return to usual activities. 06/16/24: met in knees and ankles, not hips and core though noting some goal progress LTG Duration 08/10/24 Two Impairment Activity tolerance Impairment Constant pain limiting sleep and all physical activity moderately by 75% per patient report. Oswestry disability index score. 57% Short Term Goal (STG) Decrease Oswestry score to no greater than 45% as measure of improved activity tolerance. 05/01/24: min progress 06/16/24: Reports improved after PT appointments for about 24 hours, pain variable, worst in am when first gets up and can be unpredictable; Did not get form filled out today. STG Duration 07/25/24 Custodial Goal (LTG) Decrease Oswestry score to no greater than 25% as measure of improved activity tolerance and quality of life. Patient activity tolerance will improve sufficient to allow her to return to maintenance cardiac and pulmonary rehab program. LTG Duration 08/10/24 Assessment Summary Assessment Patient high pain level thoracic region high level today, no PT x 2 wks, decreased after manual. Stress importance of postural correction. Physical Therapy Plan Frequency and Duration Frequency of Treatment 2x/Week Duration of treatment (weeks) 8 Plan of Care Start Date 06/10/24 Plan of Care End Date 08/10/24 Therapeutic Interventions Therapeutic Interventions Home Exercise Program,Manual Therapy,Patient/Caregiver Education,Self-Care/Home Management,Soft Tissue Mobilization,Taping, Therapeutic Activities, Therapeutic Exercises Modalities Cold Pack/Ice Massage,Electric Stimulation,Hot Packs, Infrared Therapy,Ultrasound Next Visit Focus/Plan Next Note Type Treatment Note Next Visit Plan Continue PT for pain management, postural correction, strengthening.
--- NOTE | 2024-08-04 13:24 | PT.OTN ---
Current Diagnoses Other chronic pain (08/04/24) Lumbago with sciatica, left side (08/04/24) Pain in thoracic spine (08/04/24) Weakness (08/04/24) Physical Therapy Treatment Note PT-OP-A Visit Information Start: 03/06/24 17:15 Freq: Status: Active Protocol: Document 08/04/24 09:07 [facility] (Rec: 08/04/24 09:47 [facility] [id number]) Out-Patient Physical Therapy Visit Information Visit Information Visit Type Treatment Note Visit Start Time 09:05 Visit Stop Time 09:55 Visit Number 20 Evaluation Information Evaluation Date 03/10/24 Precautions Precautions cardiac,long covid PMH: Hypertensive urgency History of [place] (myocardial infarction) (~2020) History of CVA ( cerebrovascular accident) Concussion COVID-19 Sleep apnea Shoulder pain Diastolic heart failure Atrial fibrillation Iron deficiency anemia Ocular migraine History of stent insertion of renal artery Bone lesion Left renal artery stenosis (~ 11/22/20) 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 (~) Parumbilical hernia (~11/22/20 ) Hiatal hernia (~11/22/20) Osteopenia of femoral neck, bilateral (~02/2019) Macular degeneration, age related, nonexudative Dyslipidemia Thyroid nodule Proteus enteritis (~2018) EBV infection (~1962) Coccidioidomycosis (~1962) Heterozygous MTHFR mutation C677T Renal artery atherosclerosis ( 09/22/11) Systemic lupus erythematosus Atypical nevus of abdominal wall Lipoma Angioedema Statin intolerance Elevated coronary artery calcium score Prinzmetal's angina (1975) Hypertension CAD (coronary artery disease) (1979) Shingles (2016) Asthma History of recurrent pneumonia Severe obstructive sleep apnea -hypopnea syndrome (10/22/15) PT-OP-B Current Condition Start: 03/06/24 17:15 Freq: Status: Active Protocol: Document 08/04/24 09:07 SAK (Rec: 08/04/24 09:47 [facility] [id number]) Current Condition History of Current Condition Onset Date December Current Complaints worsened back pain History of Current Condition Continues to struggle with long Covid; weakness and low energy. Couldn't continue with pulmonary rehab due to all medical issues. HIstory neck, thoracic, lumbar pain. States she was traveling and staying at friend's house, couldn't get out of friend's bed felt like my stomach was stuck to my spine. Difficulty getting in and out of friend's car. several times but pain worsened and has persisted. Only thing that helped was sitting on couch with semi firm pillow behind. Now very difficult still to get up. Can't lay on left side, still has stabbing pain right IT band. Back pain has now moved to her left buttock. Has had OMT treatments but had spasm in spine during one of her appts. can just bend over and has spasms, takes a long time to go away. Pain worst in am. Sleeps on right side but sometimes revs up IT band. A little better in am after walking a little bit. States she is cold a lot, tends to cross her arms across her chest due to this. 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 Won't take pain medication. Prior Treatments and Tests x-ray: negative EMG: PT-OP-C Subjective Start: 03/06/24 17:15 Freq: Status: Active Protocol: Document 08/04/24 09:07 [facility] (Rec: 08/04/24 09:47 [facility] [id number]) OP-PT Subjective Patient Comments Patient Comments Feeling weak. LOw back painful. PT-OP-F Manual Assessment Start: 03/06/24 17:15 Freq: Status: Active Protocol: Document 03/10/24 17:17 [facility] (Rec: 03/13/24 17:44 [facility] [id number]) Manual Assessments Soft Tissue Assessment Soft Tissue Mobility Assessment tightnes lumbar paraspinals, left piriformis PT-OP-G Mobility & Gait Start: 03/06/24 17:15 Freq: Status: Active Protocol: Document 03/10/24 17:17 [facility] (Rec: 03/13/24 17:44 [facility] [id number]) OP Mobility Evaluation Bed Mobility Rolling patient unable to lay down Transfers Sit to Stand painful Car Transfers painful OP Gait Assessment Gait Gait Assistance Required: Independent Assistive Devices Assistive Device None Gait Deviations General Gait Pattern Antalgic,Decreased Stride Length,Decreased Feet Clearance,Wide Based Gait Factors Limiting Gait Function Factors Limiting Gait Function Decreased Activity Tolerance, Decreased Strength,Pain Stair Climbing Evaluation Technique/Endurance Stair Climbing Technique Step to Step PT-OP-H Neuro Start: 03/06/24 17:15 Freq: Status: Active Protocol: Document 03/10/24 17:17 [facility] (Rec: 03/13/24 17:44 [facility] [id number]) Sensation Evaluation Gross Sensation Gross Sensation Left LE Impaired Sensation Description Paresthesia,Numbness,Tingling PT-OP-J Posture/Palpation/Skin Start: 03/06/24 17:15 Freq: Status: Active Protocol: Document 03/10/24 17:17 [facility] (Rec: 03/13/24 17:44 [facility] [id number]) Posture Evaluation Position Standing Head/C-Spine Posture Forward Head T-Spine Posture Increased Kyphosis Shoulder Posture (L) Rounded,(R) Rounded Scapula Posture (L) Protracted,(R) Protracted Arm Posture (L) Internally Rotated,(R) Internally Rotated Pelvis Posture Anteriorly Tilted Weight Distribution Weight Shifted Right Hip Posture (L) Externally Rotated Knee Posture (L) Genu Valgus,(R) Genu Valgus Palpation Assessment Location lumbar spine Palpation Location L45 Palpation Findings Soft Tissue Tightness, Tenderness PT-OP-K Range of Motion Start: 03/06/24 17:15 Freq: Status: Active Protocol: Document 03/10/24 17:17 [facility] (Rec: 03/13/24 17:44 [facility] [id number]) Lumbar Spine Range of Motion Lumbar Spine Active Testing Position Standing ROM Limitations Soft Tissue Tightness,Pain Comments mod decrease all motions due to pain Hip Goniometric Range of Motion Hip Left Hip ROM WFL No Flexion w/Knee Flexed 100 Extension 0 Abduction 20 Internal Rotation 10 External Rotation 60 Right Active Hip ROM WFL Yes Hip ROM Limitations Hip ROM Limitations Soft Tissue Tightness,Pain Knee Goniometric Range of Motion Knee luisa Knee ROM WFL Yes Ankle and Foot Goniometric Range of Motion Ankle and Foot luisa Ankle/Foot ROM WFL Yes PT-OP-M Strength Start: 03/06/24 17:15 Freq: Status: Active Protocol: Document 03/10/24 17:17 [facility] (Rec: 03/13/24 17:44 [facility] [id number]) Hip Strength Hip Manual Muscle Testing Right Flexion (L2) 4 Good Extension (S1) 3+ Fair+ Abduction 4- Good- Adduction 4 Good External Rotation 4- Good- Internal Rotation 4 Good Left Flexion (L2) 4 Good Extension (S1) 3- Fair- Abduction 3- Fair- Adduction 4- Good- External Rotation 4- Good- Internal Rotation 4- Good- PT-OP-Q Treatments Start: 03/06/24 17:15 Freq: Status: Active Protocol: Document 08/04/24 09:07 [facility] (Rec: 08/04/24 09:47 [facility] [id number]) Cardio Equipment Recumbent Stepper (Sci-Fit) Duration (Minutes) 18 Resistance 1.7-2.0 Seat Position 1-0 Other 1.45 miles Gym Equipment Shuttle Recovery Unilateral Squats Resistance 37 Shuttle Recovery Platform Stable Reps/Time 10x 1 Bilateral Squats Details cues for quad and gluteal activation Resistance 62 Shuttle Recovery Platform Stable Reps/Time 10x1 Therapeutic Exercises Sidelying Exercises open book Sidelying Exercise Name added to HEP with written HO. Previously poorly mesha Reps/Minutes 5x Comments cues for segmental, deep breathing Sitting Exercises goal post Reps/Minutes 5x Comments cues for thoracic extension scap retraction Sitting Exercise Name green ball behind back Reps/Minutes 5x5 Comments goalpost position, elbows at side slide back Gait Training Gait Activity hurdles Device Used wall bar PRN Level of Assistance CGA Distance/Duration 3x6 hurdles Treatment Focus hip flex strength Manual Therapy Treatment Soft Tissue Mobilization thoracic paraspinals Body Location leaning forward and upright sitting Mobilization Type Strumming,Sustained Pressure Intensity/Depth Moderate Body Position Sitting Comments also sidelying after open book PT-OP-R Modalities Start: 03/06/24 17:15 Freq: Status: Active Protocol: Document 08/04/24 09:07 [facility] (Rec: 08/04/24 10:36 [facility] [id number]) Hot Pack/Cold Pack Treatment Hot Pack Location lumbar, thoracic Patient Position Sitting Patient Tolerance Good PT-OP-T Assessment and Plan Start: 03/06/24 17:15 Freq: Status: Active Protocol: Document 08/04/24 09:07 [facility] (Rec: 08/04/24 09:47 [facility] [id number]) Physical Therapy Assessment Goals One Impairment low back pain with radicular symptoms left LE Impairment as high as 9/10 Short Term Goal (STG) decrease pain to no greater than 5/10 with all usual activities 05/01/24: min goal progress 06/16/24: back better 60%, but when it revs up it is terrible, can't sit, stand, or walk. Always bad when first gets up in am. Hip pain decreased with PT treatment. STG Duration 07/25/24 Merchandise Execution Leader Goal (LTG) decrease pain to no greater than 3/10 with all usual activities to allow patient to return to PLF LTG Duration 08/10/24 Three Impairment weakness Impairment core and LE weakness left greater than right Short Term Goal (STG) Patient to be instructed in HEP for purposes of strerngthening and core stabilization 05/01/24: goal met, ongoing progression STG Duration goal met Merchandise Execution Leader Goal (LTG) Patient to be independent and compliant with HEP and demonstrate improvement in all muscle groups to at least 4+/ 5 to allow her to return to usual activities. 06/16/24: met in knees and ankles, not hips and core though noting some goal progress LTG Duration 08/10/24 Two Impairment Activity tolerance Impairment Constant pain limiting sleep and all physical activity moderately by 75% per patient report. Oswestry disability index score. 57% Short Term Goal (STG) Decrease Oswestry score to no greater than 45% as measure of improved activity tolerance. 05/01/24: min progress 06/16/24: Reports improved after PT appointments for about 24 hours, pain variable, worst in am when first gets up and can be unpredictable; Did not get form filled out today. STG Duration 07/25/24 Care Home Goal (LTG) Decrease Oswestry score to no greater than 25% as measure of improved activity tolerance and quality of life. Patient activity tolerance will improve sufficient to allow her to return to maintenance cardiac and pulmonary rehab program. LTG Duration 08/10/24 Assessment Summary Assessment Patient performed increased time on Sci-Fit today, very fatigued after. Previously tried open book with this patient with poor mesha but today able to do with good tolerance with cues for deep breathing to be able to relax into stretch; added to HEP for thoracic mobilization and chest stretching. Physical Therapy Plan Frequency and Duration Frequency of Treatment 2x/Week Duration of treatment (weeks) 8 Plan of Care Start Date 06/10/24 Plan of Care End Date 08/10/24 Therapeutic Interventions Therapeutic Interventions Home Exercise Program,Manual Therapy,Patient/Caregiver Education,Self-Care/Home Management,Soft Tissue Mobilization,Taping, Therapeutic Activities, Therapeutic Exercises Modalities Cold Pack/Ice Massage,Electric Stimulation,Hot Packs, Infrared Therapy,Ultrasound Next Visit Focus/Plan Next Note Type Treatment Note Next Visit Plan Continue PT for pain management, postural correction, strengthening.
--- NOTE | 2024-08-04 14:01 | PT.OPPN ---
Current Diagnoses Other chronic pain (08/04/24) Lumbago with sciatica, left side (08/04/24) Pain in thoracic spine (08/04/24) Weakness (08/04/24) Physical Therapy Progress Note PT-OP-A Visit Information Start: 03/06/24 17:15 Freq: Status: Active Protocol: Document 08/04/24 09:07 [facility] (Rec: 08/04/24 09:47 [facility] [id number]) Out-Patient Physical Therapy Visit Information Visit Information Visit Type Treatment Note Visit Start Time 09:05 Visit Stop Time 09:55 Visit Number 20 Evaluation Information Evaluation Date 03/10/24 Precautions Precautions cardiac,long covid PMH: Hypertensive urgency History of [place] (myocardial infarction) (~2020) History of CVA ( cerebrovascular accident) Concussion COVID-19 Sleep apnea Shoulder pain Diastolic heart failure Atrial fibrillation Iron deficiency anemia Ocular migraine History of stent insertion of renal artery Bone lesion Left renal artery stenosis (~ 11/22/20) 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 (~) Parumbilical hernia (~11/22/20 ) Hiatal hernia (~11/22/20) Osteopenia of femoral neck, bilateral (~02/2019) Macular degeneration, age related, nonexudative Dyslipidemia Thyroid nodule Proteus enteritis (~2018) EBV infection (~1962) Coccidioidomycosis (~1962) Heterozygous MTHFR mutation C677T Renal artery atherosclerosis ( 09/22/11) Systemic lupus erythematosus Atypical nevus of abdominal wall Lipoma Angioedema Statin intolerance Elevated coronary artery calcium score Prinzmetal's angina (1975) Hypertension CAD (coronary artery disease) (1979) Shingles (2016) Asthma History of recurrent pneumonia Severe obstructive sleep apnea -hypopnea syndrome (10/22/15) PT-OP-B Current Condition Start: 03/06/24 17:15 Freq: Status: Active Protocol: Document 08/04/24 09:07 [facility] (Rec: 08/04/24 09:47 [facility] [id number]) Current Condition History of Current Condition Onset Date December Current Complaints worsened back pain History of Current Condition Continues to struggle with long Covid; weakness and low energy. Couldn't continue with pulmonary rehab due to all medical issues. HIstory neck, thoracic, lumbar pain. States she was traveling and staying at friend's house, couldn't get out of friend's bed felt like my stomach was stuck to my spine. Difficulty getting in and out of friend's car. several times but pain worsened and has persisted. Only thing that helped was sitting on couch with semi firm pillow behind. Now very difficult still to get up. Can't lay on left side, still has stabbing pain right IT band. Back pain has now moved to her left buttock. Has had OMT treatments but had spasm in spine during one of her appts. can just bend over and has spasms, takes a long time to go away. Pain worst in am. Sleeps on right side but sometimes revs up IT band. A little better in am after walking a little bit. States she is cold a lot, tends to cross her arms across her chest due to this. 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 Won't take pain medication. Prior Treatments and Tests x-ray: negative EMG: PT-OP-C Subjective Start: 03/06/24 17:15 Freq: Status: Active Protocol: Document 08/04/24 09:07 [facility] (Rec: 08/04/24 09:47 [facility] [id number]) OP-PT Subjective Patient Comments Patient Comments Feeling weak. LOw back painful. PT-OP-F Manual Assessment Start: 03/06/24 17:15 Freq: Status: Active Protocol: Document 03/10/24 17:17 [facility] (Rec: 03/13/24 17:44 [facility] [id number]) Manual Assessments Soft Tissue Assessment Soft Tissue Mobility Assessment tightnes lumbar paraspinals, left piriformis PT-OP-G Mobility & Gait Start: 03/06/24 17:15 Freq: Status: Active Protocol: Document 03/10/24 17:17 [facility] (Rec: 03/13/24 17:44 [facility] [id number]) OP Mobility Evaluation Bed Mobility Rolling patient unable to lay down Transfers Sit to Stand painful Car Transfers painful OP Gait Assessment Gait Gait Assistance Required: Independent Assistive Devices Assistive Device None Gait Deviations General Gait Pattern Antalgic,Decreased Stride Length,Decreased Feet Clearance,Wide Based Gait Factors Limiting Gait Function Factors Limiting Gait Function Decreased Activity Tolerance, Decreased Strength,Pain Stair Climbing Evaluation Technique/Endurance Stair Climbing Technique Step to Step PT-OP-H Neuro Start: 03/06/24 17:15 Freq: Status: Active Protocol: Document 03/10/24 17:17 [facility] (Rec: 03/13/24 17:44 [facility] [id number]) Sensation Evaluation Gross Sensation Gross Sensation Left LE Impaired Sensation Description Paresthesia,Numbness,Tingling PT-OP-J Posture/Palpation/Skin Start: 03/06/24 17:15 Freq: Status: Active Protocol: Document 03/10/24 17:17 [facility] (Rec: 03/13/24 17:44 [facility] [id number]) Posture Evaluation Position Standing Head/C-Spine Posture Forward Head T-Spine Posture Increased Kyphosis Shoulder Posture (L) Rounded,(R) Rounded Scapula Posture (L) Protracted,(R) Protracted Arm Posture (L) Internally Rotated,(R) Internally Rotated Pelvis Posture Anteriorly Tilted Weight Distribution Weight Shifted Right Hip Posture (L) Externally Rotated Knee Posture (L) Genu Valgus,(R) Genu Valgus Palpation Assessment Location lumbar spine Palpation Location L45 Palpation Findings Soft Tissue Tightness, Tenderness PT-OP-K Range of Motion Start: 03/06/24 17:15 Freq: Status: Active Protocol: Document 03/10/24 17:17 [facility] (Rec: 03/13/24 17:44 [facility] [id number]) Lumbar Spine Range of Motion Lumbar Spine Active Testing Position Standing ROM Limitations Soft Tissue Tightness,Pain Comments mod decrease all motions due to pain Hip Goniometric Range of Motion Hip Measured in Degrees Left Hip ROM WFL No Flexion w/Knee Flexed 100 Extension 0 Abduction 20 Internal Rotation 10 External Rotation 60 Right Active Hip ROM WFL Yes Hip ROM Limitations Hip ROM Limitations Soft Tissue Tightness,Pain Knee Goniometric Range of Motion Knee Measured in Degrees luisa Knee ROM WFL Yes Ankle and Foot Goniometric Range of Motion Ankle and Foot Measured in Degrees luisa Ankle/Foot ROM WFL Yes PT-OP-M Strength Start: 03/06/24 17:15 Freq: Status: Active Protocol: Document 03/10/24 17:17 [facility] (Rec: 03/13/24 17:44 [facility] [id number]) Hip Strength Hip Manual Muscle Testing Right Flexion (L2) 4 Good Extension (S1) 3+ Fair+ Abduction 4- Good- Adduction 4 Good External Rotation 4- Good- Internal Rotation 4 Good Left Flexion (L2) 4 Good Extension (S1) 3- Fair- Abduction 3- Fair- Adduction 4- Good- External Rotation 4- Good- Internal Rotation 4- Good- PT-OP-T Assessment and Plan Start: 03/06/24 17:15 Freq: Status: Active Protocol: Document 08/04/24 09:07 [facility] (Rec: 08/04/24 09:47 [facility] [id number]) Physical Therapy Assessment Goals One Impairment low back pain with radicular symptoms left LE Impairment as high as 9/10 Short Term Goal (STG) decrease pain to no greater than 5/10 with all usual activities 05/01/24: min goal progress 06/16/24: back better 60%, but when it revs up it is terrible, can't sit, stand, or walk. Always bad when first gets up in am. Hip pain decreased with PT treatment. STG Duration 07/25/24 Medical Administrative Technician Goal (LTG) decrease pain to no greater than 3/10 with all usual activities to allow patient to return to F LTG Duration 08/10/24 Three Impairment weakness Impairment core and LE weakness left greater than right Short Term Goal (STG) Patient to be instructed in HEP for purposes of strerngthening and core stabilization 05/01/24: goal met, ongoing progression STG Duration goal met Medical Administrative Technician Goal (LTG) Patient to be independent and compliant with HEP and demonstrate improvement in all muscle groups to at least 4+/ 5 to allow her to return to usual activities. 06/16/24: met in knees and ankles, not hips and core though noting some goal progress LTG Duration 08/10/24 Two Impairment Activity tolerance Impairment Constant pain limiting sleep and all physical activity moderately by 75% per patient report. Oswestry disability index score. 57% Short Term Goal (STG) Decrease Oswestry score to no greater than 45% as measure of improved activity tolerance. 05/01/24: min progress 06/16/24: Reports improved after PT appointments for about 24 hours, pain variable, worst in am when first gets up and can be unpredictable; Did not get form filled out today. STG Duration 07/25/24 Usp Goal (LTG) Decrease Oswestry score to no greater than 25% as measure of improved activity tolerance and quality of life. Patient activity tolerance will improve sufficient to allow her to return to maintenance cardiac and pulmonary rehab program. LTG Duration 08/10/24 Assessment Summary Assessment Patient performed increased time on Sci-Fit today, very fatigued after. Previously tried open book with this patient with poor mesha but today able to do with good tolerance with cues for deep breathing to be able to relax into stretch; added to HEP for thoracic mobilization and chest stretching. Physical Therapy Plan Frequency and Duration Frequency of Treatment 2x/Week Duration of treatment (weeks) 8 Plan of Care Start Date 06/10/24 Plan of Care End Date 08/10/24 Therapeutic Interventions Therapeutic Interventions Home Exercise Program,Manual Therapy,Patient/Caregiver Education,Self-Care/Home Management,Soft Tissue Mobilization,Taping, Therapeutic Activities, Therapeutic Exercises Modalities Cold Pack/Ice Massage,Electric Stimulation,Hot Packs, Infrared Therapy,Ultrasound Next Visit Focus/Plan Next Note Type Treatment Note Next Visit Plan Continue PT for pain management, postural correction, strengthening.
--- NOTE | 2024-08-06 16:31 | PT.OTRE ---
Current Diagnoses Other chronic pain (08/06/24) Lumbago with sciatica, left side (08/06/24) Pain in thoracic spine (08/06/24) Weakness (08/06/24) Past Medical History (Last Updated 05/07/24 @ 09:37 by La Torres DO) Angioedema Asthma Atrial fibrillation Atypical nevus of abdominal wall Bone lesion Bronchitis CAD (coronary artery disease) (1979) Coccidioidomycosis (~1962) Concussion COVID-19 Diastolic heart failure Dyslipidemia EBV infection (~1962) Elevated coronary artery calcium score 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 Hiatal hernia (~11/22/20) History of CVA (cerebrovascular accident) History of WI (myocardial infarction) (~2020) History of recurrent pneumonia History of stent insertion of renal artery Hypertension Hypertensive urgency Iron deficiency anemia Left renal artery stenosis (~11/22/20) Lipoma Macular degeneration, age related, nonexudative Ocular migraine Osteopenia of femoral neck, bilateral (~02/2019) Parumbilical hernia (~11/22/20) Prinzmetal's angina (1975) Proteus enteritis (~2018) Renal artery atherosclerosis (09/22/11) Severe obstructive sleep apnea-hypopnea syndrome (10/22/15) Shingles (2016) Shoulder pain Sleep apnea Statin intolerance Stenosis of celiac artery (~11/22/20) Strain of AC joint Systemic lupus erythematosus Thyroid nodule Tooth abscess Surgical History (Last Reviewed 01/19/24 @ 14:28 by Lillie Jaimes PA-C) Anesthesia H/O colonoscopy with polypectomy (~04/2020) History of arthroplasty (12/09/12) History of arthroplasty (01/20/13) History of cataract removal with insertion of prosthetic lens (2014) History of cholecystectomy History of melanoma excision History of tonsillectomy Stented coronary artery (2013) Visit Care Team Role Provider Type La Torres DO Attending Provider Physician Family Provider Primary Care Provider Referring Provider Specialty: Medical Address: [address] [place] [address], [address], [address] Email: [email or web address] Physical Therapy Re-Evaluation PT-OP-A Visit Information Start: 03/06/24 17:15 Freq: Status: Active Protocol: Document 08/06/24 09:04 [facility] (Rec: 08/06/24 09:46 [facility] [id number]) Out-Patient Physical Therapy Visit Information Visit Information Visit Type Treatment Note Visit Start Time 09:02 Visit Stop Time 09:57 Visit Number 21 Evaluation Information Evaluation Date 03/10/24 Precautions Precautions cardiac,long covid PMH: Hypertensive urgency History of WI (myocardial infarction) (~2020) History of CVA ( cerebrovascular accident) Concussion COVID-19 Sleep apnea Shoulder pain Diastolic heart failure Atrial fibrillation Iron deficiency anemia Ocular migraine History of stent insertion of renal artery Bone lesion Left renal artery stenosis (~ 11/22/20) 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 (~) Parumbilical hernia (~11/22/20 ) Hiatal hernia (~11/22/20) Osteopenia of femoral neck, bilateral (~02/2019) Macular degeneration, age related, nonexudative Dyslipidemia Thyroid nodule Proteus enteritis (~2018) EBV infection (~1962) Coccidioidomycosis (~1962) Heterozygous MTHFR mutation C677T Renal artery atherosclerosis ( 09/22/11) Systemic lupus erythematosus Atypical nevus of abdominal wall Lipoma Angioedema Statin intolerance Elevated coronary artery calcium score Prinzmetal's angina (1975) Hypertension CAD (coronary artery disease) (1979) Giuseppegles (2016) Asthma History of recurrent pneumonia Severe obstructive sleep apnea -hypopnea syndrome (10/22/15) PT-OP-B Current Condition Start: 03/06/24 17:15 Freq: Status: Active Protocol: Document 08/06/24 09:04 [facility] (Rec: 08/06/24 09:46 [facility] [id number]) Current Condition History of Current Condition Onset Date December Current Complaints worsened back pain History of Current Condition Continues to struggle with long Covid; weakness and low energy. Couldn't continue with pulmonary rehab due to all medical issues. HIstory neck, thoracic, lumbar pain. States she was traveling and staying at friend's house, couldn't get out of friend's bed felt like my stomach was stuck to my spine. Difficulty getting in and out of friend's car. several times but pain worsened and has persisted. Only thing that helped was sitting on couch with semi firm pillow behind. Now very difficult still to get up. Can't lay on left side, still has stabbing pain right IT band. Back pain has now moved to her left buttock. Has had OMT treatments but had spasm in spine during one of her appts. can just bend over and has spasms, takes a long time to go away. Pain worst in am. Sleeps on right side but sometimes revs up IT band. A little better in am after walking a little bit. States she is cold a lot, tends to cross her arms across her chest due to this. 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 Won't take pain medication. Prior Treatments and Tests x-ray: negative EMG: PT-OP-C Subjective Start: 03/06/24 17:15 Freq: Status: Active Protocol: Document 08/06/24 09:04 [facility] (Rec: 08/06/24 09:46 [facility] [id number]) OP-PT Subjective Patient Comments Patient Comments Stamina seems to be improving a little. Used chair for part of [employer] class and had better tolerance. Likes open book exercise. PT-OP-F Manual Assessment Start: 03/06/24 17:15 Freq: Status: Active Protocol: Document 03/10/24 17:17 [facility] (Rec: 03/13/24 17:44 [facility] [id number]) Manual Assessments Soft Tissue Assessment Soft Tissue Mobility Assessment tightnes lumbar paraspinals, left piriformis PT-OP-G Mobility & Gait Start: 03/06/24 17:15 Freq: Status: Active Protocol: Document 03/10/24 17:17 [facility] (Rec: 03/13/24 17:44 [facility] [id number]) OP Mobility Evaluation Bed Mobility Rolling patient unable to lay down Transfers Sit to Stand painful Car Transfers painful OP Gait Assessment Gait Gait Assistance Required: Independent Assistive Devices Assistive Device None Gait Deviations General Gait Pattern Antalgic,Decreased Stride Length,Decreased Feet Clearance,Wide Based Gait Factors Limiting Gait Function Factors Limiting Gait Function Decreased Activity Tolerance, Decreased Strength,Pain Stair Climbing Evaluation Technique/Endurance Stair Climbing Technique Step to Step PT-OP-H Neuro Start: 03/06/24 17:15 Freq: Status: Active Protocol: Document 03/10/24 17:17 [facility] (Rec: 03/13/24 17:44 [facility] [id number]) Sensation Evaluation Gross Sensation Gross Sensation Left LE Impaired Sensation Description Paresthesia,Numbness,Tingling PT-OP-J Posture/Palpation/Skin Start: 03/06/24 17:15 Freq: Status: Active Protocol: Document 03/10/24 17:17 [facility] (Rec: 03/13/24 17:44 [facility] [id number]) Posture Evaluation Position Standing Head/C-Spine Posture Forward Head T-Spine Posture Increased Kyphosis Shoulder Posture (L) Rounded,(R) Rounded Scapula Posture (L) Protracted,(R) Protracted Arm Posture (L) Internally Rotated,(R) Internally Rotated Pelvis Posture Anteriorly Tilted Weight Distribution Weight Shifted Right Hip Posture (L) Externally Rotated Knee Posture (L) Genu Valgus,(R) Genu Valgus Palpation Assessment Location lumbar spine Palpation Location L45 Palpation Findings Soft Tissue Tightness, Tenderness PT-OP-K Range of Motion Start: 03/06/24 17:15 Freq: Status: Active Protocol: Document 03/10/24 17:17 [facility] (Rec: 03/13/24 17:44 [facility] [id number]) Lumbar Spine Range of Motion Lumbar Spine Active Testing Position Standing ROM Limitations Soft Tissue Tightness,Pain Comments mod decrease all motions due to pain Hip Goniometric Range of Motion Hip Measured in Degrees Left Hip ROM WFL No Flexion w/Knee Flexed 100 Extension 0 Abduction 20 Internal Rotation 10 External Rotation 60 Right Active Hip ROM WFL Yes Hip ROM Limitations Hip ROM Limitations Soft Tissue Tightness,Pain Knee Goniometric Range of Motion Knee Measured in Degrees luisa Knee ROM WFL Yes Ankle and Foot Goniometric Range of Motion Ankle and Foot Measured in Degrees luisa Ankle/Foot ROM WFL Yes PT-OP-M Strength Start: 03/06/24 17:15 Freq: Status: Active Protocol: Document 03/10/24 17:17 [facility] (Rec: 03/13/24 17:44 [facility] [id number]) Hip Strength Hip Manual Muscle Testing Right Flexion (L2) 4 Good Extension (S1) 3+ Fair+ Abduction 4- Good- Adduction 4 Good External Rotation 4- Good- Internal Rotation 4 Good Left Flexion (L2) 4 Good Extension (S1) 3- Fair- Abduction 3- Fair- Adduction 4- Good- External Rotation 4- Good- Internal Rotation 4- Good- PT-OP-Q Treatments Start: 03/06/24 17:15 Freq: Status: Active Protocol: Document 08/06/24 09:04 [facility] (Rec: 08/06/24 09:46 [facility] [id number]) Cardio Equipment Recumbent Stepper (Sci-Fit) Duration (Minutes) 16 Resistance 2 Seat Position 11 Other 2.3 METS, 1.43 mi Gym Equipment Shuttle Recovery Unilateral Squats Resistance 37 Shuttle Recovery Platform Stable Reps/Time 10x 1 Bilateral Squats Details cues for quad and gluteal activation Resistance 50,62 Shuttle Recovery Platform Stable Reps/Time 10x2 Shuttle Balance chains red, cords loose Details balance and weight shift fwd/ bck with feet sta, side stggered, side to side Reps/Duration 3 min Therapeutic Exercises Sitting Exercises goal post Reps/Minutes 5x Comments cues for thoracic extension scap retraction Sitting Exercise Name green ball behind back Reps/Minutes 5x5 Comments goalpost position, elbows at side slide back Standing Exercises wall posture Reps/Minutes 5x MOnster walks Equipment Used L2 TB Reps/Minutes 8 ft ea chair squats Standing Exercise Name hip hinge Equipment Used no UE support Reps/Minutes 5x2 resisted sidestepping Resistance L1 TB Manual Therapy Treatment Soft Tissue Mobilization thoracic paraspinals Body Location leaning forward and upright sitting Mobilization Type Strumming,Sustained Pressure Intensity/Depth Moderate Body Position Sitting Comments also sidelying after open book lumbar paraspinals Mobilization Type Myofascial Release,Strumming Intensity/Depth mod Body Position Sidelying Taping upper thoracic Treatment Focus postural correction Type of Tape KT Skin Inspection intact Comments 1 I strip mid thoracic Type of Tape Kinesio Tape Skin Inspection intact Comments star pattern for pain relief plus parallel I strips either side of spine paper off tension Self-Care/Home Management Treatment Education Other Education hip hinge PT-OP-R Modalities Start: 03/06/24 17:15 Freq: Status: Active Protocol: Document 08/04/24 09:07 [facility] (Rec: 08/04/24 10:36 [facility] [id number]) Hot Pack/Cold Pack Treatment Hot Pack Location lumbar, thoracic Patient Position Sitting Patient Tolerance Good PT-OP-T Assessment and Plan Start: 03/06/24 17:15 Freq: Status: Active Protocol: Document 08/06/24 09:04 [facility] (Rec: 08/06/24 09:46 [facility] [id number]) Physical Therapy Assessment Impairments Impairments Activity Tolerance,Soft Tissue Mobility,Strength Goals One Impairment low back pain with radicular symptoms left LE Impairment as high as 9/10 Short Term Goal (STG) decrease pain to no greater than 5/10 with all usual activities 05/01/24: min goal progress 06/16/24: back better 60%, but when it revs up it is terrible, can't sit, stand, or walk. Always bad when first gets up in am. Hip pain decreased with PT treatment. 08/06/25: pain remains variable, feel postural dysfunction and fatigue from long Covid highly contributory STG Duration 09/24/24 Usp Goal (LTG) decrease pain to no greater than 3/10 with all usual activities to allow patient to return to PLF LTG Duration 11/06/24 Three Impairment weakness Impairment core and LE weakness left greater than right Short Term Goal (STG) Patient to be instructed in HEP for purposes of strerngthening and core stabilization 05/01/24: goal met, ongoing progression STG Duration goal met [employer] Fishing Vessel Goal (LTG) Patient to be independent and compliant with HEP and demonstrate improvement in all muscle groups to at least 4+/ 5 to allow her to return to usual activities. 06/16/24: met in knees and ankles, not hips and core though noting some goal progress 08/06/24: goal progress LTG Duration 11/06/24 Two Impairment Activity tolerance Impairment Constant pain limiting sleep and all physical activity moderately by 75% per patient report. Oswestry disability index score. 57% Short Term Goal (STG) Decrease Oswestry score to no greater than 45% as measure of improved activity tolerance. 05/01/24: min progress 06/16/24: Reports improved after PT appointments for about 24 hours, pain variable, worst in am when first gets up and can be unpredictable; Did not get form filled out today. 08/06/24: 52% STG Duration 07/25/24 [employer] V[employer] Goal (LTG) Decrease Oswestry score to no greater than 25% as measure of improved activity tolerance and quality of life. Patient activity tolerance will improve sufficient to allow her to return to maintenance cardiac and pulmonary rehab program. LTG Duration 11/06/24 Progress Towards Goals Progress Towards Goals Slow Progress due to Medical Issues Assessment Summary Assessment Increased resistance with SciFit today. REviewed wall posture and educated on hip hinge as well as relaxed knee stance with long spine for [employer] class. REsumed KT tape to spine due to good benefit. Patient noting some improvement in activity tolerance. Pain variable, better after PT. Would benefit from continued PT to help her continue to improve and meet her PT goals. Physical Therapy Plan Frequency and Duration Frequency of Treatment 2x/Week Duration of treatment (weeks) 12 Plan of Care Start Date 08/06/24 Plan of Care End Date 11/06/24 Therapeutic Interventions Therapeutic Interventions Home Exercise Program,Manual Therapy,Patient/Caregiver Education,Self-Care/Home Management,Soft Tissue Mobilization,Taping, Therapeutic Activities, Therapeutic Exercises Modalities Cold Pack/Ice Massage,Electric Stimulation,Hot Packs, Infrared Therapy,Ultrasound Next Visit Focus/Plan Next Note Type Treatment Note Next Visit Plan Continue PT for pain management, postural correction, strengthening.
--- NOTE | 2024-08-11 10:57 | PT.OTN ---
Current Diagnoses Other chronic pain (08/11/24) Lumbago with sciatica, left side (08/11/24) Pain in thoracic spine (08/11/24) Weakness (08/11/24) Physical Therapy Treatment Note PT-OP-A Visit Information Start: 03/06/24 17:15 Freq: Status: Active Protocol: Document 08/11/24 08:54 [facility] (Rec: 08/11/24 09:47 [facility] [id number]) Out-Patient Physical Therapy Visit Information Visit Information Visit Type Treatment Note Visit Start Time 08:55 Visit Number 22 Evaluation Information Evaluation Date 03/10/24 Precautions Precautions cardiac,long covid PMH: Hypertensive urgency History of OH (myocardial infarction) (~2020) History of CVA ( cerebrovascular accident) Concussion COVID-19 Sleep apnea Shoulder pain Diastolic heart failure Atrial fibrillation Iron deficiency anemia Ocular migraine History of stent insertion of renal artery Bone lesion Left renal artery stenosis (~ 11/22/20) 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 (~) Parumbilical hernia (~11/22/20 ) Hiatal hernia (~11/22/20) Osteopenia of femoral neck, bilateral (~02/2019) Macular degeneration, age related, nonexudative Dyslipidemia Thyroid nodule Proteus enteritis (~2018) EBV infection (~1962) Coccidioidomycosis (~1962) Heterozygous MTHFR mutation C677T Renal artery atherosclerosis ( 09/22/11) Systemic lupus erythematosus Atypical nevus of abdominal wall Lipoma Angioedema Statin intolerance Elevated coronary artery calcium score Prinzmetal's angina (1975) Hypertension CAD (coronary artery disease) (1979) Shingles (2016) Asthma History of recurrent pneumonia Severe obstructive sleep apnea -hypopnea syndrome (10/22/15) PT-OP-B Current Condition Start: 03/06/24 17:15 Freq: Status: Active Protocol: Document 08/11/24 08:54 [facility]AK (Rec: 08/11/24 09:47 [facility] [id number]) Current Condition History of Current Condition Onset Date December Current Complaints worsened back pain History of Current Condition Continues to struggle with long Covid; weakness and low energy. Couldn't continue with pulmonary rehab due to all medical issues. HIstory neck, thoracic, lumbar pain. States she was traveling and staying at friend's house, couldn't get out of friend's bed felt like my stomach was stuck to my spine. Difficulty getting in and out of friend's car. several times but pain worsened and has persisted. Only thing that helped was sitting on couch with semi firm pillow behind. Now very difficult still to get up. Can't lay on left side, still has stabbing pain right IT band. Back pain has now moved to her left buttock. Has had OMT treatments but had spasm in spine during one of her appts. can just bend over and has spasms, takes a long time to go away. Pain worst in am. Sleeps on right side but sometimes revs up IT band. A little better in am after walking a little bit. States she is cold a lot, tends to cross her arms across her chest due to this. 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 Won't take pain medication. Prior Treatments and Tests x-ray: negative EMG: PT-OP-C Subjective Start: 03/06/24 17:15 Freq: Status: Active Protocol: Document 08/11/24 08:54 [facility] (Rec: 08/11/24 09:47 [facility] [id number]) OP-PT Subjective Patient Comments Patient Comments Tape on her back very helpfuil . Worst is LBP and LE pain left, not sure what flared it up. What made the leg better was laying on her back with leg straight but that made her back pain worse. Thinks maybe laying on side with legs bent up triggered. PT-OP-F Manual Assessment Start: 03/06/24 17:15 Freq: Status: Active Protocol: Document 03/10/24 17:17 [facility] (Rec: 03/13/24 17:44 [facility] [id number]) Manual Assessments Soft Tissue Assessment Soft Tissue Mobility Assessment tightnes lumbar paraspinals, left piriformis PT-OP-G Mobility & Gait Start: 03/06/24 17:15 Freq: Status: Active Protocol: Document 03/10/24 17:17 [facility] (Rec: 03/13/24 17:44 [facility] [id number]) OP Mobility Evaluation Bed Mobility Rolling patient unable to lay down Transfers Sit to Stand painful Car Transfers painful OP Gait Assessment Gait Gait Assistance Required: Independent Assistive Devices Assistive Device None Gait Deviations General Gait Pattern Antalgic,Decreased Stride Length,Decreased Feet Clearance,Wide Based Gait Factors Limiting Gait Function Factors Limiting Gait Function Decreased Activity Tolerance, Decreased Strength,Pain Stair Climbing Evaluation Technique/Endurance Stair Climbing Technique Step to Step PT-OP-H Neuro Start: 03/06/24 17:15 Freq: Status: Active Protocol: Document 03/10/24 17:17 [facility]AK (Rec: 03/13/24 17:44 [facility] [id number]) Sensation Evaluation Gross Sensation Gross Sensation Left LE Impaired Sensation Description Paresthesia,Numbness,Tingling PT-OP-J Posture/Palpation/Skin Start: 03/06/24 17:15 Freq: Status: Active Protocol: Document 03/10/24 17:17 [facility] (Rec: 03/13/24 17:44 [facility] [id number]) Posture Evaluation Position Standing Head/C-Spine Posture Forward Head T-Spine Posture Increased Kyphosis Shoulder Posture (L) Rounded,(R) Rounded Scapula Posture (L) Protracted,(R) Protracted Arm Posture (L) Internally Rotated,(R) Internally Rotated Pelvis Posture Anteriorly Tilted Weight Distribution Weight Shifted Right Hip Posture (L) Externally Rotated Knee Posture (L) Genu Valgus,(R) Genu Valgus Palpation Assessment Location lumbar spine Palpation Location L45 Palpation Findings Soft Tissue Tightness, Tenderness PT-OP-K Range of Motion Start: 03/06/24 17:15 Freq: Status: Active Protocol: Document 03/10/24 17:17 [facility]AK (Rec: 03/13/24 17:44 [facility] [id number]) Lumbar Spine Range of Motion Lumbar Spine Active Testing Position Standing ROM Limitations Soft Tissue Tightness,Pain Comments mod decrease all motions due to pain Hip Goniometric Range of Motion Hip Left Hip ROM WFL No Flexion w/Knee Flexed 100 Extension 0 Abduction 20 Internal Rotation 10 External Rotation 60 Right Active Hip ROM WFL Yes Hip ROM Limitations Hip ROM Limitations Soft Tissue Tightness,Pain Knee Goniometric Range of Motion Knee luisa Knee ROM WFL Yes Ankle and Foot Goniometric Range of Motion Ankle and Foot luisa Ankle/Foot ROM WFL Yes PT-OP-M Strength Start: 03/06/24 17:15 Freq: Status: Active Protocol: Document 03/10/24 17:17 [facility]AK (Rec: 03/13/24 17:44 [facility] [id number]) Hip Strength Hip Manual Muscle Testing Right Flexion (L2) 4 Good Extension (S1) 3+ Fair+ Abduction 4- Good- Adduction 4 Good External Rotation 4- Good- Internal Rotation 4 Good Left Flexion (L2) 4 Good Extension (S1) 3- Fair- Abduction 3- Fair- Adduction 4- Good- External Rotation 4- Good- Internal Rotation 4- Good- PT-OP-Q Treatments Start: 03/06/24 17:15 Freq: Status: Active Protocol: Document 08/11/24 08:54 [facility] (Rec: 08/11/24 09:47 [facility] [id number]) Cardio Equipment Recumbent Stepper (Sci-Fit) Duration (Minutes) 15 Resistance 2 Seat Position 11 Other 2.3 METS, 1.39mi Gym Equipment Shuttle Recovery Unilateral Squats Resistance 37 Shuttle Recovery Platform Stable Reps/Time 10x 2 Bilateral Squats Details cues for quad and gluteal activation Resistance 50,62 Shuttle Recovery Platform Stable Reps/Time 10x1 Therapeutic Exercises Standing Exercises wall posture Reps/Minutes 5x resisted sidestepping Resistance L1 TB Gait Training Gait Activity hurdles Device Used wall bar PRN Level of Assistance CGA Distance/Duration 3x6 hurdles Treatment Focus hip flex strength Manual Therapy Treatment Soft Tissue Mobilization piriformis Body Location L Mobilization Type Myofascial Release,Strumming Intensity/Depth mod Body Position right sidelying lumbar paraspinals Mobilization Type Myofascial Release,Strumming Intensity/Depth mod Body Position Sidelying Taping piriformis Treatment Focus pain reduction Type of Tape kt Skin Inspection intact Comments star pattern 75% stretch: 3 I strips Self-Care/Home Management Treatment Education Other Education Using spine model educated patient in cause of radicular pain into leg and why extension of spine and decompression laying down may be helpful. PT-OP-R Modalities Start: 03/06/24 17:15 Freq: Status: Active Protocol: Document 08/11/24 08:54 [facility] (Rec: 08/11/24 10:48 [facility] [id number]) Hot Pack/Cold Pack Treatment Hot Pack Location lumbar, lateral hip Patient Position Sidelying Patient Tolerance Good PT-OP-T Assessment and Plan Start: 03/06/24 17:15 Freq: Status: Active Protocol: Document 08/11/24 08:54 [facility] (Rec: 08/11/24 09:47 [facility] [id number]) Physical Therapy Assessment Impairments Impairments Activity Tolerance,Soft Tissue Mobility,Strength Other Concerns Barriers to Rehabilitation chronicity, multiple medical issues including long Covid, cardiac and pulmonary dysfunction Goals One Impairment low back pain with radicular symptoms left LE Impairment as high as 9/10 Short Term Goal (STG) decrease pain to no greater than 5/10 with all usual activities 05/01/24: min goal progress 06/16/24: back better 60%, but when it revs up it is terrible, can't sit, stand, or walk. Always bad when first gets up in am. Hip pain decreased with PT treatment. 08/06/25: pain remains variable, feel postural dysfunction and fatigue from long Covid highly contributory STG Duration 09/24/24 Long-Term Goal (LTG) decrease pain to no greater than 3/10 with all usual activities to allow patient to return to PLF LTG Duration 11/06/24 Three Impairment weakness Impairment core and LE weakness left greater than right Short Term Goal (STG) Patient to be instructed in HEP for purposes of strerngthening and core stabilization 05/01/24: goal met, ongoing progression STG Duration goal met Long-Term Goal (LTG) Patient to be independent and compliant with HEP and demonstrate improvement in all muscle groups to at least 4+/ 5 to allow her to return to usual activities. 06/16/24: met in knees and ankles, not hips and core though noting some goal progress 08/06/24: goal progress LTG Duration 11/06/24 Two Impairment Activity tolerance Impairment Constant pain limiting sleep and all physical activity moderately by 75% per patient report. Oswestry disability index score. 57% Short Term Goal (STG) Decrease Oswestry score to no greater than 45% as measure of improved activity tolerance. 05/01/24: min progress 06/16/24: Reports improved after PT appointments for about 24 hours, pain variable, worst in am when first gets up and can be unpredictable; Did not get form filled out today. 08/06/24: 52% STG Duration 07/25/24 Floor Installation Mechanic Goal (LTG) Decrease Oswestry score to no greater than 25% as measure of improved activity tolerance and quality of life. Patient activity tolerance will improve sufficient to allow her to return to maintenance cardiac and pulmonary rehab program. LTG Duration 11/06/24 Assessment Summary Assessment Patient hurting more into left LE and lumbar spine today. Spent time with education regarding bed positioning ( always sleeps on right side) including review use of pillows and recommendation for body pillow and use of towel under waist and belly to prevent torque. Use of spine model to educate on effect of different positions on spine, and why centralization positive. Patient highly tender to palpation lateral hip and piriformis on left. Taught piriformis stretch in sitting, using towel to extend arms. Physical Therapy Plan Frequency and Duration Frequency of Treatment 2x/Week Duration of treatment (weeks) 12 Plan of Care Start Date 08/06/24 Plan of Care End Date 11/06/24 Therapeutic Interventions Therapeutic Interventions Home Exercise Program,Manual Therapy,Patient/Caregiver Education,Self-Care/Home Management,Soft Tissue Mobilization,Taping, Therapeutic Activities, Therapeutic Exercises Modalities Cold Pack/Ice Massage,Electric Stimulation,Hot Packs, Infrared Therapy,Ultrasound Next Visit Focus/Plan Next Note Type Treatment Note Next Visit Plan Assess response to today's session. Continue postural correction, strengthening, pain management.
--- NOTE | 2024-09-01 10:58 | PT.OTN ---
Current Diagnoses Other chronic pain (09/01/24) Lumbago with sciatica, left side (09/01/24) Pain in thoracic spine (09/01/24) Weakness (09/01/24) Physical Therapy Treatment Note PT-OP-A Visit Information Start: 03/06/24 17:15 Freq: Status: Active Protocol: Document 09/01/24 09:48 [facility]AK (Rec: 09/01/24 10:57 [facility] [id number]) Out-Patient Physical Therapy Visit Information Visit Information Visit Type Treatment Note Visit Start Time 09:48 Visit Number 22 Evaluation Information Evaluation Date 03/10/24 Precautions Precautions cardiac,long covid PMH: Hypertensive urgency History of UT (myocardial infarction) (~2020) History of CVA ( cerebrovascular accident) Concussion COVID-19 Sleep apnea Shoulder pain Diastolic heart failure Atrial fibrillation Iron deficiency anemia Ocular migraine History of stent insertion of renal artery Bone lesion Left renal artery stenosis (~ 11/22/20) 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 (~) Parumbilical hernia (~11/22/20 ) Hiatal hernia (~11/22/20) Osteopenia of femoral neck, bilateral (~02/2019) Macular degeneration, age related, nonexudative Dyslipidemia Thyroid nodule Proteus enteritis (~2018) EBV infection (~1962) Coccidioidomycosis (~1962) Heterozygous MTHFR mutation C677T Renal artery atherosclerosis ( 09/22/11) Systemic lupus erythematosus Atypical nevus of abdominal wall Lipoma Angioedema Statin intolerance Elevated coronary artery calcium score Prinzmetal's angina (1975) Hypertension CAD (coronary artery disease) (1979) Shingles (2016) Asthma History of recurrent pneumonia Severe obstructive sleep apnea -hypopnea syndrome (10/22/15) PT-OP-B Current Condition Start: 03/06/24 17:15 Freq: Status: Active Protocol: Document 09/01/24 09:48 SAK (Rec: 09/01/24 10:57 [facility] [id number]) Current Condition History of Current Condition Onset Date December Current Complaints worsened back pain History of Current Condition Continues to struggle with long Covid; weakness and low energy. Couldn't continue with pulmonary rehab due to all medical issues. HIstory neck, thoracic, lumbar pain. States she was traveling and staying at friend's house, couldn't get out of friend's bed felt like my stomach was stuck to my spine. Difficulty getting in and out of friend's car. several times but pain worsened and has persisted. Only thing that helped was sitting on couch with semi firm pillow behind. Now very difficult still to get up. Can't lay on left side, still has stabbing pain right IT band. Back pain has now moved to her left buttock. Has had OMT treatments but had spasm in spine during one of her appts. can just bend over and has spasms, takes a long time to go away. Pain worst in am. Sleeps on right side but sometimes revs up IT band. A little better in am after walking a little bit. States she is cold a lot, tends to cross her arms across her chest due to this. Besides a few warm up exercises in bed before getting up states she is just doing her padder cushion and trying to walk as much as she can but very slow. Won't take pain medication. Prior Treatments and Tests x-ray: negative EMG: PT-OP-C Subjective Start: 03/06/24 17:15 Freq: Status: Active Protocol: Document 09/01/24 09:48 [facility] (Rec: 09/01/24 10:57 [facility] [id number]) OP-PT Subjective Patient Comments Patient Comments States she had a horrible fall last day legs gave way, hit her 2 knees and crashed into the door on right shoulder, fell back and wrenched her neck. Talked to neurologist 1 1/2 weeks ago, reported severe low back pain. PT-OP-F Manual Assessment Start: 03/06/24 17:15 Freq: Status: Active Protocol: Document 03/10/24 17:17 [facility] (Rec: 03/13/24 17:44 [facility] [id number]) Manual Assessments Soft Tissue Assessment Soft Tissue Mobility Assessment tightnes lumbar paraspinals, left piriformis PT-OP-G Mobility & Gait Start: 03/06/24 17:15 Freq: Status: Active Protocol: Document 03/10/24 17:17 [facility] (Rec: 03/13/24 17:44 [facility] [id number]) OP Mobility Evaluation Bed Mobility Rolling patient unable to lay down Transfers Sit to Stand painful Car Transfers painful OP Gait Assessment Gait Gait Assistance Required: Independent Assistive Devices Assistive Device None Gait Deviations General Gait Pattern Antalgic,Decreased Stride Length,Decreased Feet Clearance,Wide Based Gait Factors Limiting Gait Function Factors Limiting Gait Function Decreased Activity Tolerance, Decreased Strength,Pain Stair Climbing Evaluation Technique/Endurance Stair Climbing Technique Step to Step PT-OP-H Neuro Start: 03/06/24 17:15 Freq: Status: Active Protocol: Document 03/10/24 17:17 [facility]AK (Rec: 03/13/24 17:44 [facility] [id number]) Sensation Evaluation Gross Sensation Gross Sensation Left LE Impaired Sensation Description Paresthesia,Numbness,Tingling PT-OP-J Posture/Palpation/Skin Start: 03/06/24 17:15 Freq: Status: Active Protocol: Document 03/10/24 17:17 [facility]AK (Rec: 03/13/24 17:44 [facility] [id number]) Posture Evaluation Position Standing Head/C-Spine Posture Forward Head T-Spine Posture Increased Kyphosis Shoulder Posture (L) Rounded,(R) Rounded Scapula Posture (L) Protracted,(R) Protracted Arm Posture (L) Internally Rotated,(R) Internally Rotated Pelvis Posture Anteriorly Tilted Weight Distribution Weight Shifted Right Hip Posture (L) Externally Rotated Knee Posture (L) Genu Valgus,(R) Genu Valgus Palpation Assessment Location lumbar spine Palpation Location L45 Palpation Findings Soft Tissue Tightness, Tenderness PT-OP-K Range of Motion Start: 03/06/24 17:15 Freq: Status: Active Protocol: Document 03/10/24 17:17 [facility]AK (Rec: 03/13/24 17:44 [facility] [id number]) Lumbar Spine Range of Motion Lumbar Spine Active Testing Position Standing ROM Limitations Soft Tissue Tightness,Pain Comments mod decrease all motions due to pain Hip Goniometric Range of Motion Hip Left Hip ROM WFL No Flexion w/Knee Flexed 100 Extension 0 Abduction 20 Internal Rotation 10 External Rotation 60 Right Active Hip ROM WFL Yes Hip ROM Limitations Hip ROM Limitations Soft Tissue Tightness,Pain Knee Goniometric Range of Motion Knee luisa Knee ROM WFL Yes Ankle and Foot Goniometric Range of Motion Ankle and Foot luisa Ankle/Foot ROM WFL Yes PT-OP-M Strength Start: 03/06/24 17:15 Freq: Status: Active Protocol: Document 03/10/24 17:17 [facility]AK (Rec: 03/13/24 17:44 [facility] [id number]) Hip Strength Hip Manual Muscle Testing Right Flexion (L2) 4 Good Extension (S1) 3+ Fair+ Abduction 4- Good- Adduction 4 Good External Rotation 4- Good- Internal Rotation 4 Good Left Flexion (L2) 4 Good Extension (S1) 3- Fair- Abduction 3- Fair- Adduction 4- Good- External Rotation 4- Good- Internal Rotation 4- Good- PT-OP-Q Treatments Start: 03/06/24 17:15 Freq: Status: Active Protocol: Document 09/01/24 09:48 [facility] (Rec: 09/01/24 10:57 [facility] [id number]) Manual Therapy Treatment Soft Tissue Mobilization thoracic paraspinals Body Location leaning forward and upright sitting Mobilization Type Strumming,Sustained Pressure Intensity/Depth gentle Body Position Sitting lumbar paraspinals Mobilization Type Myofascial Release,Strumming Intensity/Depth gentle Body Position Sitting Taping piriformis Treatment Focus pain reduction Type of Tape kt Skin Inspection intact Comments star pattern 75% stretch: 3 I strips upper thoracic Treatment Focus postural correction Type of Tape KT Skin Inspection intact Comments 1 I strip mid thoracic Type of Tape Kinesio Tape Skin Inspection intact Comments star pattern for pain relief plus parallel I strips either side of spine paper off tension Self-Care/Home Management Treatment Education Patient Education Home Exercise Program,Pain Management,Posture Other Education reviewed HEP, most important exercises to gentle resume. Patient demonstrated good understanding. PT-OP-R Modalities Start: 03/06/24 17:15 Freq: Status: Active Protocol: Document 09/01/24 09:48 [facility] (Rec: 09/01/24 10:57 [facility] [id number]) Hot Pack/Cold Pack Treatment Hot Pack Comments patient reported she will do at home. PT-OP-T Assessment and Plan Start: 03/06/24 17:15 Freq: Status: Active Protocol: Document 09/01/24 09:48 [facility] (Rec: 09/01/24 10:57 [facility] [id number]) Physical Therapy Assessment Impairments Impairments Activity Tolerance,Soft Tissue Mobility,Strength Other Concerns Barriers to Rehabilitation chronicity, multiple medical issues including long Covid, cardiac and pulmonary dysfunction Goals One Impairment low back pain with radicular symptoms left LE Impairment as high as 9/10 Short Term Goal (STG) decrease pain to no greater than 5/10 with all usual activities 05/01/24: min goal progress 06/16/24: back better 60%, but when it revs up it is terrible, can't sit, stand, or walk. Always bad when first gets up in am. Hip pain decreased with PT treatment. 08/06/24: pain remains variable, feel postural dysfunction and fatigue from long Covid highly contributory STG Duration 09/24/24 Half-Way Goal (LTG) decrease pain to no greater than 3/10 with all usual activities to allow patient to return to PLF 09/01/24: not fully achieved, especially after fall LTG Duration 11/06/24 Three Impairment weakness Impairment core and LE weakness left greater than right Short Term Goal (STG) Patient to be instructed in HEP for purposes of strerngthening and core stabilization 05/01/24: goal met, ongoing progression STG Duration goal met Derrick Barge Operator Goal (LTG) Patient to be independent and compliant with HEP and demonstrate improvement in all muscle groups to at least 4+/ 5 to allow her to return to usual activities. 06/16/24: met in knees and ankles, not hips and core though noting some goal progress 08/06/24: goal progress 09/01/24: unable to MMT due to pain from fall LTG Duration 11/06/24 Two Impairment Activity tolerance Impairment Constant pain limiting sleep and all physical activity moderately by 75% per patient report. Oswestry disability index score. 57% Short Term Goal (STG) Decrease Oswestry score to no greater than 45% as measure of improved activity tolerance. 05/01/24: min progress 06/16/24: Reports improved after PT appointments for about 24 hours, pain variable, worst in am when first gets up and can be unpredictable; Did not get form filled out today. 08/06/24: 52% STG Duration 07/25/24 Half-Way Goal (LTG) Decrease Oswestry score to no greater than 25% as measure of improved activity tolerance and quality of life. Patient activity tolerance will improve sufficient to allow her to return to maintenance cardiac and pulmonary rehab program. 09/01/24: not achieved due to medical issues, fatigue. LTG Duration 11/06/24 Progress Towards Goals Progress Towards Goals Slow Progress due to Medical Issues Assessment Summary Assessment Patient not feeling well today after fall last , didn't go to urgent care or ER , states she doesn't feel anything is broken and that she will see Dr. Torres on Wednesday. Description of fall sounds potentially neurological due to stenosis with potential pressure on nerves. It was recommended by neurologist recently that she see neurosurgeon but patient not planning to because of not being a surgical candidate with her multiple medical issues. Gentle treatment today of light soft tissue mobilization, KT tape, and patient education. Agreeable to discharge from PT today, no further visits scheduled, going to be caring for her sister after shoulder surgery. May want to consider further PT next year. Physical Therapy Plan Discharge Physical Therapy Discharge Comments Slow progress due to multiple medical issues. Also her sister is going to have shoulder surgery and she will be caring for her. Patient to continue with HEP. May consider further PT in a few months.
== END 2024-09-10 14:27 | disposition home or self-care (01) ==
LOC: PHYS 09:45
PROVIDERS: Family Provider Family Medicine; PCP Family Medicine; Referring Provider Family Medicine; Visit Provider Family Medicine
DX: M54.42 Lumbago with sciatica, left side (principal); G89.29 Other chronic pain; M54.6 Pain in thoracic spine; R53.1 Weakness
CPT/HCPCS: 97110; 97112; 97140; 97162; 97535

== ENCOUNTER → 2024-10-13 09:48 | Outpatient (CLI) | payer MEDICARE, BC, SELFPAY ==
[2023-11-14 08:38] VITALS: BMI 42.5
[2024-10-13 10:50] LABS: BUN Creatinine Ratio 20.3 (6-22); Blood Urea Nitrogen 28 mg/dL (7-17); Carbon Dioxide 23 mmol/L (22-32); Chloride 108 mmol/L (98-107); Estimated Glomerular Filt Rate 40 mL/min (>60); Glucose 95 mg/dL (80-110); HEMOLYSIS < 15 (0-50); Potassium 4.6 mmol/L (3.4-5.1); Sodium 137 mmol/L (137-145)
== END ==
PROVIDERS: PCP Family Medicine; Referring Provider Family Medicine; Visit Provider Family Medicine
DX: N18.32 Chronic kidney disease, stage 3b (principal)
CPT/HCPCS: 36415; 80048

== ENCOUNTER 2024-11-04 12:57 | Observation (INO) | payer MEDICARE, BC, SELFPAY ==
[2023-11-14 08:38] VITALS: BMI 42.5
[2024-11-04] VITALS (51 sets, daily range): BP systolic 127–215; BP diastolic 58–129; PULSE 59–83; RESP 14–30; TEMP 36.4; O2SAT 87–99; BMI 40.7
--- NOTE | 2024-11-04 13:15 | DI.RAD.S_ITS ---
PROCEDURE: XR CHEST 1V INDICATIONS: chest pain TECHNIQUE: One view of the chest was acquired. COMPARISON: [facility], CR, XR CHEST 1V, 05/04/2024, 22:48. FINDINGS: Surgical changes and devices: None. Lungs and pleura: Mild increased pulmonary vascularity. Mediastinum: Mediastinal contours appear normal. Heart size is enlarged. Bones and chest wall: No suspicious bony lesions. Overlying soft tissues appear unremarkable. IMPRESSION: Increased vascularity suggestive of edema. Dictated by: Alix Brown M.D. on 11/04/2024 at 15:08 Approved by: Alix Brown M.D. on 11/04/2024 at 15:09
--- NOTE | 2024-11-04 13:15 | EKG_ITS ---
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
[2024-11-04 13:54] LABS: Add Manual Diff / Slide Review NO; Basophils Absolute Auto 0 /uL (0-100); Basophils Percent Auto 0.6 % (0-2); Eosinophils Absolute Auto 100 /uL (0-450); Eosinophils Percent Auto 1.6 % (2-4); Hematocrit 33.2 % (36-46); Hemoglobin 10.9 g/dL (12.0-16.0); Lymphocytes Absolute Auto 700 /uL (1100-4500); Lymphocytes Percent Auto 13.5 % (25-40); Mean Corpuscular HGB Conc 32.7 % (30-36); Mean Corpuscular Hemoglobin 27.6 PG (26-34); Mean Corpuscular Volume 84.6 fL (80-100); Monocytes Absolute Auto 500 /uL (0-900); Monocytes Percent Auto 9.5 % (3-14); Neutrophils Absolute Auto 4000 /uL (1500-7000); Neutrophils Percent Auto 74.8 % (50-75); Platelet Count 222 X10^3/uL (150-400); Red Blood Cell Count 3.93 X10^6/uL (4.0-5.2); Red Cell Distribution Width 15.1 % (11.6-14.8); White Blood Cell Count 5.3 X10^3/uL (4.5-11.0)
[2024-11-04 14:00] LABS: INR 1.2 (0.9-1.3); Prothrombin Time 14.1 SECONDS (9.4-12.5)
[2024-11-04 14:03] LABS: PTT Partial Thromboplastin Tim 42 SECONDS (25.1-36.5)
[2024-11-04 14:04] LABS: Alanine Aminotransferase 24 IU/L (<35); Albumin 4.2 g/dL (3.5-5.0); Albumin Globulin Ratio 1.4 (1.0-2.8); Alkaline Phosphatase 70 U/L (38-126); Aspartate Aminotransferase 30 IU/L (14-36); BUN Creatinine Ratio 23.6 (6-22); Bilirubin Total 0.9 mg/dL (0.2-1.3); Blood Urea Nitrogen 33 mg/dL (7-17); Calcium 8.9 mg/dL (8.4-10.2); Carbon Dioxide 21 mmol/L (22-32); Chloride 110 mmol/L (98-107); Creatine Kinase 66 U/L (30-135); Estimated Glomerular Filt Rate 39 mL/min (>60); Glucose 106 mg/dL (80-110); Lipase 262 U/L (23-300); Potassium 4.6 mmol/L (3.4-5.1); Sodium 138 mmol/L (137-145); Total Protein 7.2 g/dL (6.3-8.2)
[2024-11-04 14:14] LABS: NT-proBNP (BNP-Adult 18+) 704 pg/mL (<450)
[2024-11-04 14:15] LABS: Troponin I < 0.012 ng/mL (0.01-0.034)
[2024-11-04 14:16] LABS: HEMOLYSIS 67 (0-50)
[2024-11-04 16:30] LABS: Troponin I < 0.012 ng/mL (0.01-0.034)
--- NOTE | 2024-11-04 18:45 | ED_ITS ---
HPI - Chest Pain General Chief Complaint: Chest Pain Stated Complaint: chest pain Time Seen by Provider: 11/04/24 17:31 History of Present Illness HPI narrative: Patient is a 74-year-old female history of coronary artery disease 5 stents hypertensive diastolic CHF presenting to day with chest heaviness. She was followed by [facility] Dr. Nguyen. She also has a history of arrhythmia. She reports that she had arrhythmia last night but got herself out of it today she reports significant chest heaviness in the center of her chest. It is nonradiating. She reports her previous MIs she had pain between her shoulder blades she reports not having that now. She does have shortness of breath with exertion and noticed some lower extremity edema. She takes 20 mg of Lasix as needed at home has not taken any today. Does say that the swelling in her legs has improved after being in the ED. she has chronic orthopnea it has not any worse than normal. She has some ongoing fatigue but no significant fever or body aches. She was found to be quite hypertensive in the ED blood pressure in the 190s. She says that she took 3 nitro at home before coming she says it did help but the discomfort quickly came back. She continues to have discomfort now. Related Data Home Medications Medication Instructions Recorded Confirmed isosorbide mononitrate 60 mg 60 mg PO BID 03/08/19 11/04/24 tablet,extended release 24 hr furosemide 20 mg tablet 20 mg PO DAILY 01/10/21 11/04/24 carvedilol 25 mg tablet 50 mg PO QPM 06/01/21 11/04/24 ranolazine 500 mg tablet,extended 500 mg PO BID 09/20/21 11/04/24 release,12 hr (Ranexa) ResMed AirCurve 04/20/22 11/05/24 nitroglycerin 0.4 mg sublingual 0.4 mg sublingual PRN PRN Chest 05/09/23 11/05/24 tablet (Nitrostat) Pain hydralazine 100 mg tablet 100 mg PO BID 12/24/23 11/04/24 prazosin 1 mg capsule 2 mg PO BID 04/02/24 11/05/24 apixaban 5 mg tablet 5 mg PO BID 05/07/24 11/04/24 aspirin 81 mg tablet,delayed 81 mg PO DAILY 05/07/24 11/04/24 release (Adult Low Dose Aspirin) diltiazem HCl 120 mg 120 mg PO BEDTIME 07/23/24 11/04/24 capsule,extended release 24 hr cyanocobalamin (vitamin B-12) 1,000 mcg SUBCUT QMONTH 11/04/24 11/04/24 1,000 mcg/mL injection solution Previous Rx's Medication Instructions Recorded albuterol sulfate 90 mcg/actuation 2 puff inhalation Q6H PRN 09/08/22 aerosol inhaler shortness of breath or wheezing #8.5 grams Diovan 160 mg tablet (valsartan) 160 mg PO BID #180 tabs 02/29/24 Disabled Parking Permit #1 ea 10/23/24 Allergies Allergy/AdvReac Type Severity Reaction Status Date / Time benazepril [From Lotensin] Allergy Severe angioadema Verified 09/23/24 13:29 adhesive Allergy Mild Verified 09/23/24 13:29 Sulfa (Sulfonamide Allergy Unknown Verified 09/23/24 13:29 Antibiotics) [SULFA (SULFONAMIDE ANTIBIOTICS)] Haemophilus B polysaccharide AdvReac Intermediate YRS AGO Verified 09/23/24 13:29 conj w CAUSED [From TriHIBit] FEVER, RECENTLY MOUTH SORES Beta-Blockers AdvReac Mild LOW Verified 09/23/24 13:29 (Beta-Adrenergic Bloc TOLERANCE - HR IN 30s - HOSPITALIZED diazepam AdvReac Mild OPPOSITE Verified 09/23/24 13:29 EFFECT, BECAME HYPER/INCOMPLIANT--O.K. WITH VERSED diphtheria,pertussis AdvReac Mild YRS AGO Verified 09/23/24 13:29 (acellular),te CAUSED [From TriHIBit] FEVER, RECENTLY MOUTH SORES pseudoephedrine AdvReac Mild INCREASED Verified 09/23/24 13:29 HEART RATE Patient History Medical History (Updated 11/04/24 @ 23:26 by Silvia Crenshaw DO) Bronchitis Strain of AC joint Tooth abscess Hypertensive urgency History of MO (myocardial infarction) (~2020) History of CVA (cerebrovascular accident) Concussion COVID-19 Sleep apnea Shoulder pain Diastolic heart failure Atrial fibrillation Iron deficiency anemia Ocular migraine History of stent insertion of renal artery Bone lesion Left renal artery stenosis (~11/22/20) 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) Parumbilical hernia (~11/22/20) Hiatal hernia (~11/22/20) Osteopenia of femoral neck, bilateral (~02/2019) Macular degeneration, age related, nonexudative Dyslipidemia Thyroid nodule Proteus enteritis (~2018) EBV infection (~1962) Coccidioidomycosis (~1962) Heterozygous MTHFR mutation C677T Renal artery atherosclerosis (09/22/11) Systemic lupus erythematosus Atypical nevus of abdominal wall Lipoma Angioedema Statin intolerance Elevated coronary artery calcium score Prinzmetal's angina (1975) Hypertension CAD (coronary artery disease) (1979) Shingles (2016) Asthma History of recurrent pneumonia Severe obstructive sleep apnea-hypopnea syndrome (10/22/15) Surgical History History of melanoma excision Anesthesia H/O colonoscopy with polypectomy (~04/2020) History of tonsillectomy History of cholecystectomy Stented coronary artery (2013) History of arthroplasty (01/20/13) History of arthroplasty (12/09/12) History of cataract removal with insertion of prosthetic lens (2014) Family History Father Lung cancer Hypertension Mother Parkinson's disease Breast cancer CAD (coronary artery disease) Brother History of heart disease Social History marital status: household members: friend(s) lives independently: No caregiver/support person: No pets and animals: Yes Smoking Status: Never smoker alcohol intake: never Smoking Status: Never smoker alcohol intake frequency: holidays/special occasions only Exam Initial Vital Signs Initial Vital Signs: Vital Signs Temperature 97.6 F 11/04/24 13:16 Pulse Rate 64 11/04/24 13:16 Respiratory Rate 16 11/04/24 13:16 Blood Pressure 192/86 H 11/04/24 13:16 Pulse Oximetry 99 11/04/24 13:16 Oxygen Delivery Method Room Air 11/04/24 13:16 GENERAL: Alert 74-year-old female and in no acute distress. HEENT: Head atraumatic,EOMI, pupils reactive, face symmetric, moist mucous membranes CARDIOVASCULAR: Regular rate and rhythm without murmurs, rubs or gallops. RESPIRATORY: No conversational dyspnea breath sounds equal no wheezes rales or rhonchi ABDOMEN: Soft, nontender. Normoactive bowel sounds all 4 quadrants. No guarding or rebound. EXTREMITIES: Normal range of motion, no clubbing. +1 pitting edema Neurovascularly intact NEUROLOGICAL: Alert and oriented x4.Normal gait and speech. SKIN: Warm, dry, no laceration, no petechiae, no rashes or lesions. Course Orders Ordered: ED Orders 11/04/24 19:09 EKG-12 Lead Stat Acetaminophen (Acetaminophen 325 Mg Tablet) 650 mg PO Q6H PRN PRN Reason: Fever/Mild Pain (1-3) Al Hydrox/Mg Hydrox/Simethicone (Mag Hydrox/Alum/Simeth 30 Ml Udc) 30 ml PO Q6HR PRN PRN Reason: Dyspepsia Albuterol (Albuterol 2.5 Mg/3 Ml Neb (Adult)) 2.5 mg INH Q6H PRN PRN Reason: SHORTNESS OF BREATH/WHEEZING Apixaban (Apixaban 5 Mg Tablet) 5 mg PO BID [facility] Aspirin (Aspirin Ec 81 Mg Tablet) 81 mg PO DAILY [facility] Carvedilol (Carvedilol 12.5 Mg Tablet) 50 mg PO BEDTIME [facility] Furosemide (Furosemide 20 Mg Tablet) 20 mg PO DAILY [facility] Hydralazine HCl (Hydralazine 25 Mg Tablet) 100 mg PO QID [facility] Hydralazine HCl (Hydralazine 20 Mg/Ml Vial) 10 mg IV Q6HR PRN PRN Reason: for SBP > 180 Isosorbide Mononitrate (Isosorbide Mononitrate Er 30 Mg Tablet) 60 mg PO BID [facility] Naloxone HCl (Naloxone 0.4 Mg/Ml Vial) 0.2 mg IV Q2MIN PRN PRN Reason: Opiate Reversal Nitroglycerin (Nitroglycerin 0.4 Mg Sl Tab) 0.4 mg SL PRN PRN PRN Reason: Chest Pain Ondansetron HCl (Ondansetron 4 Mg/2 Ml Inj) 4 mg IV Q8HR PRN PRN Reason: Nausea And Vomiting Prazosin HCl (Prazosin 1 Mg Capsule) 2 mg PO BID [facility] Ranolazine (Ranolazine 500 Mg Tab.Er.12h) 500 mg PO BID [facility] Valsartan (Valsartan 80 Mg Tablet) 160 mg PO BID HEVER Discontinued Medications Apixaban (Apixaban 5 Mg Tablet) 5 mg PO NOW ONE Stop: 11/04/24 20:32 Last Admin: 11/04/24 21:38 Dose: 5 mg Documented By: JHONNY Carvedilol (Carvedilol 12.5 Mg Tablet) 50 mg PO NOW ONE Stop: 11/04/24 20:32 Last Admin: 11/04/24 21:38 Dose: 50 mg Documented By: JHONNY Furosemide (Furosemide 40 Mg/4 Ml Vial) 40 mg IV NOW ONE Stop: 11/04/24 19:06 Last Admin: 11/04/24 19:10 Dose: 40 mg Documented By: CHERRY Hydralazine HCl (Hydralazine 25 Mg Tablet) 100 mg PO NOW ONE Stop: 11/04/24 20:32 Last Admin: 11/04/24 21:39 Dose: 100 mg Documented By: JHONNY Isosorbide Mononitrate (Isosorbide Mononitrate Er 30 Mg Tablet) 60 mg PO NOW ONE Stop: 11/04/24 20:32 Last Admin: 11/04/24 21:39 Dose: 60 mg Documented By: JHONNY Nitroglycerin (Nitroglycerin 0.4 Mg Sl Tab) 0.4 mg SL NOW ONE Stop: 11/04/24 19:06 Last Admin: 11/04/24 19:10 Dose: 0.4 mg Documented By: CHERRY Non-Formulary Medication (Albuterol Sulfate) 2 puff INHALATION Q6H PRN PRN Reason: shortness of breath or wheezing Non-Formulary Medication (Carvedilol) 50 mg PO QPM [facility] Valsartan (Valsartan 80 Mg Tablet) 160 mg PO NOW ONE Stop: 11/04/24 20:32 Last Admin: 11/04/24 21:38 Dose: 160 mg Documented By: JHONNY Vital Signs Vital signs: Vital Signs - 8 hr 11/04/24 19:20 11/04/24 19:20 11/04/24 19:25 Pulse Rate 66 66 Respiratory Rate 20 Blood Pressure 189/82 H Pulse Oximetry 96 97 Oxygen Delivery Method Room Air 11/04/24 19:25 11/04/24 19:30 11/04/24 19:30 Pulse Rate 83 Respiratory Rate Blood Pressure 191/82 H 202/80 H Pulse Oximetry Oxygen Delivery Method 11/04/24 19:35 11/04/24 19:36 11/04/24 19:36 Pulse Rate 75 70 Respiratory Rate 18 Blood Pressure 215/80 H Pulse Oximetry 98 Oxygen Delivery Method Room Air 11/04/24 19:40 11/04/24 19:40 11/04/24 19:45 Pulse Rate 66 67 Respiratory Rate Blood Pressure 200/85 H Pulse Oximetry 96 97 Oxygen Delivery Method 11/04/24 19:46 11/04/24 19:46 11/04/24 19:50 Pulse Rate 67 64 Respiratory Rate 17 Blood Pressure 205/89 H Pulse Oximetry 97 98 Oxygen Delivery Method Room Air 11/04/24 19:50 11/04/24 19:55 11/04/24 20:00 Pulse Rate 67 66 Respiratory Rate Blood Pressure 191/81 H Pulse Oximetry 97 97 Oxygen Delivery Method 11/04/24 20:00 11/04/24 20:05 11/04/24 20:05 Pulse Rate 67 Respiratory Rate Blood Pressure 185/80 H 201/81 H Pulse Oximetry 97 Oxygen Delivery Method 11/04/24 20:10 11/04/24 20:11 11/04/24 20:11 Pulse Rate 64 65 Respiratory Rate 17 Blood Pressure 211/91 H Pulse Oximetry 97 96 Oxygen Delivery Method Room Air 11/04/24 20:15 11/04/24 20:15 11/04/24 20:20 Pulse Rate 65 65 Respiratory Rate Blood Pressure 211/95 H Pulse Oximetry 97 98 Oxygen Delivery Method 11/04/24 20:20 11/04/24 20:25 11/04/24 20:25 Pulse Rate 65 Respiratory Rate Blood Pressure 210/92 H 210/93 H Pulse Oximetry 96 Oxygen Delivery Method 11/04/24 20:30 11/04/24 20:30 11/04/24 20:35 Pulse Rate 66 66 Respiratory Rate Blood Pressure 212/95 H Pulse Oximetry 98 98 Oxygen Delivery Method Room Air 11/04/24 20:35 11/04/24 21:00 11/04/24 21:30 Pulse Rate 66 66 Respiratory Rate Blood Pressure 211/94 H Pulse Oximetry 98 87 L Oxygen Delivery Method 11/04/24 21:31 11/04/24 21:31 11/04/24 21:38 Pulse Rate 66 67 Respiratory Rate Blood Pressure 204/82 H 204/82 H Pulse Oximetry 96 Oxygen Delivery Method 11/04/24 21:39 11/04/24 21:41 11/04/24 21:41 Pulse Rate 67 69 Respiratory Rate Blood Pressure 204/82 H 199/77 H Pulse Oximetry 98 Oxygen Delivery Method 11/04/24 22:00 11/04/24 22:01 11/04/24 22:01 Pulse Rate 65 66 Respiratory Rate 19 Blood Pressure 151/61 H Pulse Oximetry 97 98 Oxygen Delivery Method Room Air 11/04/24 22:20 11/04/24 22:20 11/04/24 22:30 Pulse Rate 66 69 Respiratory Rate Blood Pressure 153/65 H Pulse Oximetry 97 96 Oxygen Delivery Method 11/04/24 22:46 11/04/24 23:00 11/04/24 23:00 Pulse Rate 69 63 Respiratory Rate 19 Blood Pressure 153/65 H 127/58 L Pulse Oximetry 97 Oxygen Delivery Method Room Air MDM - Chest Pain Lab Data 11/04/24 13:42 11/04/24 13:42 Labs: Lab Results 11/04/24 11/04/24 Range/Units 13:42 16:01 WBC 5.3 (4.5-11.0) X10^3/uL RBC 3.93 L (4.0-5.2) X10^6/uL Hgb 10.9 L (12.0-16.0) g/dL Hct 33.2 L (36-46) % MCV 84.6 (80-100) fL MCH 27.6 (26-34) PG MCHC 32.7 (30-36) % RDW 15.1 H (11.6-14.8) % Plt Count 222 (150-400) X10^3/uL Neut % (Auto) 74.8 (50-75) % Lymph % (Auto) 13.5 L (25-40) % Worth % (Auto) 9.5 (3-14) % Eos % (Auto) 1.6 L (2-4) % Baso % (Auto) 0.6 (0-2) % Neut # (Auto) 4000 (7499-3424) /uL Lymph # (Auto) 700 L (2768-6997) /uL Worth # (Auto) 500 (0-900) /uL Eos # (Auto) 100 (0-450) /uL Baso # (Auto) 0 (0-100) /uL PT 14.1 H (9.4-12.5) SECONDS INR 1.2 (0.9-1.3) APTT 42 H (25.1-36.5) SECONDS Sodium 138 (137-145) mmol/L Potassium 4.6 (3.4-5.1) mmol/L Chloride 110 H (98-107) mmol/L Carbon Dioxide 21 L (22-32) mmol/L BUN 33 H (7-17) mg/dL Creatinine 1.40 H (0.52-1.04) mg/dL Estimated GFR 39 L (>60) mL/min BUN/Creatinine Ratio 23.6 H (6-22) Glucose 106 (80-110) mg/dL Calcium 8.9 (8.4-10.2) mg/dL Magnesium 2.0 (1.6-2.3) mg/dL Total Bilirubin 0.9 (0.2-1.3) mg/dL AST 30 (14-36) IU/L ALT 24 (<35) IU/L Alkaline Phosphatase 70 (38-126) U/L Total Creatine Kinase 66 (30-135) U/L Troponin I < 0.012 < 0.012 (0.01-0.034) ng/mL NT-Pro-B Natriuret Pep 704 H (<450) pg/mL Total Protein 7.2 (6.3-8.2) g/dL Albumin 4.2 (3.5-5.0) g/dL Globulin 3.0 (1.7-4.1) g/dL Albumin/Globulin Ratio 1.4 (1.0-2.8) Lipase 262 (23-300) U/L Imaging Data Chest x-ray: Radiologist's Impression: PROCEDURE: XR CHEST 1V INDICATIONS: chest pain TECHNIQUE: One view of the chest was acquired. COMPARISON: [facility], CR, XR CHEST 1V, 05/04/2024, 22:48. FINDINGS: Surgical changes and devices: None. Lungs and pleura: Mild increased pulmonary vascularity. Mediastinum: Mediastinal contours appear normal. Heart size is enlarged. Bones and chest wall: No suspicious bony lesions. Overlying soft tissues appear unremarkable. IMPRESSION: Increased vascularity suggestive of edema. Dictated by: Alix Brown M.D. on 11/04/2024 at 15:08 ECG Data Attestation: I personally reviewed and interpreted this ECG as follows: Prior ECG tracings: available for review Interpretation: Sinus rhythm rate 61 MT interval 170 QRS [address]-T does not T-wave inversions no acute ischemia similar to prior EKGs MDM Narrative Medical decision making narrative: MDM CC: Chest pain Complicating co-morbidities: Coronary arterial disease 5 stents diastolic heart failure on Eliquis Corroborating data: [ ] Data collected from: [ ] Medical records reviewed: Yes Differential considered: Acute coronary syndrome hypertensive emergency hypertensive urgency Exam documented above, pertinent findings include: Alert well-appearing 74-year-old female mild peripheral edema no respiratory distress Lab Test results independently reviewed as above. Pertinent findings: Troponin negative x2 BNP 706 CBC no leukocytosis or anemia CMP CKD stable creatinine 1.4 previously 1.38, elevated chloride 110 previously 108 remained stable potassium is 4.6 sodium 138 Independently reviewed EKG as above No acute ischemia Imaging studies independently reviewed: Chest x-ray increased vascularity Consultations: 2129 Dr. Caballero cardiology at [facility] updated on symptoms, recommends admission and blood pressure control. No need for heart catheterization or and had a stress test reports that she had a nuclear stress test in April that was negative and reassuring. Dr. Lopes accepts to observation Treatments: Nitro Lasix, hydralazine Coreg Diovan Imdur Eliquis Home blood pressure meds ordered Re-evaluations: [ ] Discussion: Patient 74-year-old female history of coronary artery disease diastolic congestive heart failure on anticoagulation also has a history of knee arrhythmia presenting today with chest discomfort heaviness. She thinks that she would some sort of arrhythmia last night unclear which it was it did go away but today she was left with persistent heaviness. She was found to be quite hypertensive systolic pressure in the 190s. She does have some symptoms of fluid overload with shortness of breath with exertion chest x-ray does show pulmonary edema with some lower extremity edema as well. She has not hypoxic or having any sort of respiratory distress. I do think some of her chest discomfort is secondary to hypertension. She was given nitro and Lasix here in the ED Patient has urinated quite a bit with Lasix. She was given her home night medications blood pressure has come down 150. She still some mild chest discomfort. She has actually had elevated blood pressure the whole time she has been in the ED with having chest pain. Cardiology recommends observation blood pressure control no need for recurrent stress test. She reports that she was breathing much better after the Lasix she is urinated multiple times. Discharge Plan Departure Patient Disposition: Admitted as Observation Clinical Impression: Hypertensive urgency Admit Date/Time: 11/04/24 23:30 Admit Provider: Blake Humphries
--- NOTE | 2024-11-04 19:09 | EKG_ITS ---
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
[2024-11-04] MEDS: NITROGLYCERIN 0.4 MG SL TAB SL (19:10)
[2024-11-04] MEDS: FUROSEMIDE 40 MG/4 ML VIAL IV (19:10)
--- NOTE | 2024-11-04 19:19 | PC.NURSE ---
Pt c/o 04/[address] Lainezied.
[2024-11-04] MEDS: VALSARTAN 80 MG TABLET 160 MG PO (21:38)
[2024-11-04] MEDS: carvediloL 12.5 MG TABLET 50 MG PO (21:38)
[2024-11-04] MEDS: APIXABAN 5 MG TABLET PO (21:38)
[2024-11-04] MEDS: ISOSORBIDE MONONITRATE ER 30 MG TABLET 60 MG PO (21:39)
[2024-11-04] MEDS: HYDRALAZINE 25 MG TABLET 100 MG PO (21:39)
[2024-11-05] VITALS: BP 158/70; PULSE 59; RESP 19; TEMP 37.1; O2SAT 97
--- NOTE | 2024-11-05 03:42 | PM.HP.1 ---
History of Present Illness History of Present Illness Date Patient Seen: 11/05/24 Time Patient Seen: 01:00 Chief complaint: chest pain Narrative: 74-year-old female with past medical history of CAD, s/p 5 stents (followed in [place]), HFpEF, A-fib, presented with chest pressure, exertional dyspnea, increased b/l leg swelling, with SBP of ~ 200. No evidence of ACS, EKG non-ischemic, 2 troponins not elevated. Recently had added Cardizem to very intensive regimen of hydralazine, prazosin, Diovan, Lasix, Coreg and Imdur. Intolerant of HCTZ (gout), ACEI and Norvasc. Placed in observation with hypertensive urgency. 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) Parumbilical hernia (~11/22/20) Hiatal hernia (~11/22/20) Osteopenia of femoral neck, bilateral (~02/2019) Macular degeneration, age related, nonexudative Dyslipidemia Thyroid nodule Proteus enteritis (~2018) EBV infection (~1962) Coccidioidomycosis (~1962) Heterozygous MTHFR mutation C677T Renal artery atherosclerosis (09/22/11) Systemic lupus erythematosus Atypical nevus of abdominal wall Lipoma Angioedema Statin intolerance Elevated coronary artery calcium score Prinzmetal's angina (1975) Hypertension CAD (coronary artery disease) (1979) Shingles (2016) Asthma History of recurrent pneumonia Severe obstructive sleep apnea-hypopnea syndrome (10/22/15) Surgical History History of melanoma excision Anesthesia H/O colonoscopy with polypectomy (~04/2020) History of tonsillectomy History of cholecystectomy Stented coronary artery (2013) History of arthroplasty (04/29/13) History of arthroplasty (12/09/12) History of cataract removal with insertion of prosthetic lens (2015) Family History Father Lung cancer Hypertension Mother Parkinson's disease Breast cancer CAD (coronary artery disease) Brother History of heart disease Social History marital status: household members: friend(s) lives independently: No caregiver/support person: No pets and animals: Yes Smoking Status: Never smoker alcohol intake: never Meds Home Medications and Allergies Home Medications Medication Instructions Recorded Confirmed Type isosorbide mononitrate 60 mg 60 mg PO BID 03/08/19 11/04/24 History tablet,extended release 24 hr furosemide 20 mg tablet 20 mg PO DAILY 01/10/21 11/04/24 History carvedilol 25 mg tablet 50 mg PO QPM 06/01/21 11/04/24 History ranolazine 500 mg tablet,extended 500 mg PO BID 09/20/21 11/04/24 History release,12 hr (Ranexa) ResMed AirCurve 04/20/22 11/05/24 History albuterol sulfate 90 mcg/actuation 2 puff inhalation Q6H PRN 09/08/22 11/04/24 Rx aerosol inhaler shortness of breath or wheezing #8.5 grams nitroglycerin 0.4 mg sublingual 0.4 mg sublingual PRN PRN Chest 05/09/23 11/05/24 History tablet (Nitrostat) Pain hydralazine 100 mg tablet 100 mg PO BID 12/24/23 11/04/24 History Diovan 160 mg tablet (valsartan) 160 mg PO BID #180 tabs 02/29/24 11/04/24 Rx prazosin 1 mg capsule 2 mg PO BID 04/02/24 11/05/24 History apixaban 5 mg tablet 5 mg PO BID 05/07/24 11/04/24 History aspirin 81 mg tablet,delayed 81 mg PO DAILY 05/07/24 11/04/24 History release (Adult Low Dose Aspirin) diltiazem HCl 120 mg 120 mg PO BEDTIME 07/23/24 11/04/24 History capsule,extended release 24 hr Disabled Parking Permit #1 ea 10/23/24 11/05/24 Rx cyanocobalamin (vitamin B-12) 1,000 mcg SUBCUT QMONTH 11/04/24 11/04/24 History 1,000 mcg/mL injection solution Allergies Allergy/AdvReac Type Severity Reaction Status Date / Time benazepril [From Lotensin] Allergy Severe angioadema Verified 09/23/24 13:29 adhesive Allergy Mild Verified 09/23/24 13:29 Sulfa (Sulfonamide Allergy Unknown Verified 09/23/24 13:29 Antibiotics) [SULFA (SULFONAMIDE ANTIBIOTICS)] Haemophilus B polysaccharide AdvReac Intermediate YRS AGO Verified 09/23/24 13:29 conj w CAUSED [From TriHIBit] FEVER, RECENTLY MOUTH SORES Beta-Blockers AdvReac Mild LOW Verified 09/23/24 13:29 (Beta-Adrenergic Bloc TOLERANCE - HR IN 30s - HOSPITALIZED diazepam AdvReac Mild OPPOSITE Verified 09/23/24 13:29 EFFECT, BECAME HYPER/INCOMPLIANT--O.K. WITH VERSED diphtheria,pertussis AdvReac Mild YRS AGO Verified 09/23/24 13:29 (acellular),te CAUSED [From TriHIBit] FEVER, RECENTLY MOUTH SORES pseudoephedrine AdvReac Mild INCREASED Verified 09/23/24 13:29 HEART RATE Review of Systems Cardiovascular Comments: chest pressure, mid-chest, non-radiating, w/o sweating, dizziness, diaphoresis, nausea, vomiting, dyspnea at rest has mild exertional dyspnea b/l lower leg swelling Exam Vital Signs (past 8 hours): - 11/04/24 19:45 11/04/24 19:46 11/04/24 19:46 Temperature Pulse Rate 67 67 Respiratory Rate 17 Blood Pressure 205/89 H Pulse Oximetry 97 97 Oxygen Delivery Method Room Air Oxygen Flow Rate 11/04/24 19:50 11/04/24 19:50 11/04/24 19:55 Temperature Pulse Rate 64 67 Respiratory Rate Blood Pressure 191/81 H Pulse Oximetry 98 97 Oxygen Delivery Method Oxygen Flow Rate 11/04/24 20:00 11/04/24 20:00 11/04/24 20:05 Temperature Pulse Rate 66 67 Respiratory Rate Blood Pressure 185/80 H Pulse Oximetry 97 97 Oxygen Delivery Method Oxygen Flow Rate 11/04/24 20:05 11/04/24 20:10 11/04/24 20:11 Temperature Pulse Rate 64 Respiratory Rate 17 Blood Pressure 201/81 H 211/91 H Pulse Oximetry 97 Oxygen Delivery Method Room Air Oxygen Flow Rate 11/04/24 20:11 11/04/24 20:15 11/04/24 20:15 Temperature Pulse Rate 65 65 Respiratory Rate Blood Pressure 211/95 H Pulse Oximetry 96 97 Oxygen Delivery Method Oxygen Flow Rate 11/04/24 20:20 11/04/24 20:20 11/04/24 20:25 Temperature Pulse Rate 65 65 Respiratory Rate Blood Pressure 210/92 H Pulse Oximetry 98 96 Oxygen Delivery Method Oxygen Flow Rate 11/04/24 20:25 11/04/24 20:30 11/04/24 20:30 Temperature Pulse Rate 66 Respiratory Rate Blood Pressure 210/93 H 212/95 H Pulse Oximetry 98 Oxygen Delivery Method Room Air Oxygen Flow Rate 11/04/24 20:35 11/04/24 20:35 11/04/24 21:00 Temperature Pulse Rate 66 66 Respiratory Rate Blood Pressure 211/94 H Pulse Oximetry 98 98 Oxygen Delivery Method Oxygen Flow Rate 11/04/24 21:30 11/04/24 21:31 11/04/24 21:31 Temperature Pulse Rate 66 66 Respiratory Rate Blood Pressure 204/82 H Pulse Oximetry 87 L 96 Oxygen Delivery Method Oxygen Flow Rate 11/04/24 21:38 11/04/24 21:39 11/04/24 21:41 Temperature Pulse Rate 67 67 69 Respiratory Rate Blood Pressure 204/82 H 204/82 H Pulse Oximetry 98 Oxygen Delivery Method Oxygen Flow Rate 11/04/24 21:41 11/04/24 22:00 11/04/24 22:01 Temperature Pulse Rate 65 66 Respiratory Rate 19 Blood Pressure 199/77 H Pulse Oximetry 97 98 Oxygen Delivery Method Room Air Oxygen Flow Rate 11/04/24 22:01 11/04/24 22:20 11/04/24 22:20 Temperature Pulse Rate 66 Respiratory Rate Blood Pressure 151/61 H 153/65 H Pulse Oximetry 97 Oxygen Delivery Method Oxygen Flow Rate 11/04/24 22:30 11/04/24 22:46 11/04/24 23:00 Temperature Pulse Rate 69 69 63 Respiratory Rate 19 Blood Pressure 153/65 H Pulse Oximetry 96 97 Oxygen Delivery Method Room Air Oxygen Flow Rate 11/04/24 23:00 11/04/24 23:45 11/05/24 00:00 Temperature 98.8 F Pulse Rate 59 L Respiratory Rate 19 Blood Pressure 127/58 L 158/70 H Pulse Oximetry 97 Oxygen Delivery Method Room Air Oxygen Flow Rate 0 Oxygen Delivery Method Room Air Oxygen Flow Rate 0 Narrative Exam Narrative: General - in no distress HEENT - normocephalic CVS - w/o JVD, RRR, swollen lower legs RS - CTA GI - not distended Neuro - w/o deficits Psych - lucid, normal affect Objective ECG Impression: NSR 84 Labs 11/04/24 13:42 11/04/24 13:42 Labs: Laboratory Results - last 24 hr 11/04/24 11/04/24 13:42 16:01 WBC 5.3 RBC 3.93 L Hgb 10.9 L Hct 33.2 L MCV 84.6 MCH 27.6 MCHC 32.7 RDW 15.1 H Plt Count 222 Neut % (Auto) 74.8 Lymph % (Auto) 13.5 L [place] % (Auto) 9.5 Eos % (Auto) 1.6 L Baso % (Auto) 0.6 Neut # (Auto) 4000 Lymph # (Auto) 700 L [place] # (Auto) 500 Eos # (Auto) 100 Baso # (Auto) 0 PT 14.1 H INR 1.2 APTT 42 H Sodium 138 Potassium 4.6 Chloride 110 H Carbon Dioxide 21 L BUN 33 H Creatinine 1.40 H Estimated GFR 39 L BUN/Creatinine Ratio 23.6 H Glucose 106 Calcium 8.9 Magnesium 2.0 Total Bilirubin 0.9 AST 30 ALT 24 Alkaline Phosphatase 70 Total Creatine Kinase 66 Troponin I < 0.012 < 0.012 NT-Pro-B Natriuret Pep 704 H Total Protein 7.2 Albumin 4.2 Globulin 3.0 Albumin/Globulin Ratio 1.4 Lipase 262 Assessment & Plan Assessment and plan (1) Hypertensive urgency: Status: Acute (2) Atrial fibrillation: Qualifiers: Atrial fibrillation type: paroxysmal Qualified Code(s): I48.0 - Paroxysmal atrial fibrillation Status: Acute (3) Diastolic heart failure: Qualifiers: Heart failure chronicity: chronic Qualified Code(s): I50.32 - Chronic diastolic (congestive) heart failure Status: Acute (4) Coronary artery disease: Problem details: 11/2019 angioplasty with stent, 09/27/2018 Cath patent LAD stents, moderate proximal left circumflex lesion negative FFP and iFR 07/2018 echo showing normal LVEF, grade 2 diastolic dysfunction and increased pulmonary pressures. Cardiovascular disease. Has cardiac cath in September showing patent LAD stents and a non-hemodynamic lesion in the proximal left circumflex. Mildly increased LV filling pressures, preserved LVEF. Does have afib on pradaxa with good rate control. blood pressure is reasonably controlled. Per cardiology note is was recommended that she start ranexa 500 mg bid. She tried this but developed headaches. However the headaches persisted off of the medication. It was recommended that she restart this medication for her anginal symptoms. Amlodipine was also prescribed at 2.5 mg but she doesn't like this medication since it causes lower extremity edema. She also is prescribed furosemide 40 mg daily but doesn't like to take this because of frequent urination. For her PVC's magnesium was recommended and I am unsure if she is taking this medication. Qualifiers: Coronary Disease-Associated Artery/Lesion type: [place] artery [place] vs. transplanted heart: [place] heart Associated angina: with stable angina Qualified Code(s): I25.118 - Atherosclerotic heart disease of [place] coronary artery with other forms of angina pectoris Status: Chronic Assessment & Plan narrative: HTN Urgency - Coreg 50 mg daily - Hydralazine 100 mg qid - Diovan 160 mg bid - Cardizem ER 120 mg daily - Lasix 20 mg daily - Imdur 60 mg daily - prn hydralazine IV - telemetry monitoring A-fib - Coreg - Eliquis HFrEF - had 40 of Lasix in ED - continue with lasix 20 mg po daily - BMP pending Time-Based Coding :: [TOTAL MINUTES] spent with patient and on the chart (including review of chart, obtaining history, exam, reviewing outside data, placing orders, documenting exam and treatment plan, and counseling patient) on [DATE].
[2024-11-05 04:00] VITALS: BP 140/71; PULSE 59; RESP 18; TEMP 36.2; O2SAT 97
[2024-11-05 07:19] LABS: Add Manual Diff / Slide Review NO; Basophils Absolute Auto 0 /uL (0-100); Basophils Percent Auto 0.6 % (0-2); Eosinophils Absolute Auto 100 /uL (0-450); Eosinophils Percent Auto 1.5 % (2-4); Hematocrit 34.1 % (36-46); Hemoglobin 11.4 g/dL (12.0-16.0); Lymphocytes Absolute Auto 900 /uL (1100-4500); Lymphocytes Percent Auto 16.3 % (25-40); Mean Corpuscular HGB Conc 33.4 % (30-36); Mean Corpuscular Volume 83.9 fL (80-100); Monocytes Absolute Auto 500 /uL (0-900); Monocytes Percent Auto 8.8 % (3-14); Neutrophils Absolute Auto 4200 /uL (1500-7000); Neutrophils Percent Auto 72.8 % (50-75); Platelet Count 245 X10^3/uL (150-400); Red Blood Cell Count 4.06 X10^6/uL (4.0-5.2); White Blood Cell Count 5.8 X10^3/uL (4.5-11.0)
[2024-11-05 07:32] LABS: BUN Creatinine Ratio 20.5 (6-22); Blood Urea Nitrogen 34 mg/dL (7-17); Calcium 9.1 mg/dL (8.4-10.2); Carbon Dioxide 24 mmol/L (22-32); Chloride 108 mmol/L (98-107); Estimated Glomerular Filt Rate 32 mL/min (>60); Glucose 102 mg/dL (80-110); HEMOLYSIS < 15 (0-50); Potassium 4.2 mmol/L (3.4-5.1); Sodium 140 mmol/L (137-145)
--- NOTE | 2024-11-05 07:46 | P.HP_ITS ---
History of Present Illness History of Present Illness Date Patient Seen: 11/05/24 Chief complaint: chest pain Narrative: From night doctor: 74-year-old female with past medical history of CAD, s/p 5 stents (followed in [place]), HFpEF, A-fib, presented with chest pressure, exertional dyspnea, increased b/l leg swelling, with SBP of ~ 200. No evidence of ACS, EKG non-ischemic, 2 troponins not elevated. Recently had added Cardizem to very intensive regimen of hydralazine, prazosin, Diovan, Lasix, Coreg and Imdur. Intolerant of HCTZ (gout), ACEI and Norvasc. Placed in observation with hypertensive urgency. S: She was history of chronic kidney disease and diastolic heart failure. She used to take Lasix 40 day but now takes 20 a day. She developed progressive edema of her legs and then dyspnea. She improved overnight with regard to hypoxemia, hypertensive urgency, and dyspnea with IV Lasix. In the day of discharge her pressures were improved. She notes that the edema came on over the last week to 2 weeks and is unusual for her. Her labs have been stable. Her last echo she reports was within the last 4 months at [facility] and had normal systolic function and diastolic dysfunction noted. ECG was unremarkable. 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) Parumbilical hernia (~11/22/20) Hiatal hernia (~11/22/20) Osteopenia of femoral neck, bilateral (~02/2019) Macular degeneration, age related, nonexudative Dyslipidemia Thyroid nodule Proteus enteritis (~2018) EBV infection (~1962) Coccidioidomycosis (~1962) Heterozygous MTHFR mutation C677T Renal artery atherosclerosis (09/22/11) Systemic lupus erythematosus Atypical nevus of abdominal wall Lipoma Angioedema Statin intolerance Elevated coronary artery calcium score Prinzmetal's angina (1975) Hypertension CAD (coronary artery disease) (1979) Shingles (2017) Asthma History of recurrent pneumonia Severe obstructive sleep apnea-hypopnea syndrome (10/22/15) Surgical History History of melanoma excision Anesthesia H/O colonoscopy with polypectomy (~04/2020) History of tonsillectomy History of cholecystectomy Stented coronary artery (2013) History of arthroplasty (01/20/13) History of arthroplasty (12/09/12) History of cataract removal with insertion of prosthetic lens (2014) Family History Father Lung cancer Hypertension Mother Parkinson's disease Breast cancer CAD (coronary artery disease) Brother History of heart disease Social History marital status: household members: family and friend(s) lives independently: No caregiver/support person: No pets and animals: Yes Smoking Status: Never smoker alcohol intake: never Meds Home Medications and Allergies Home Medications Medication Instructions Recorded Confirmed Type isosorbide mononitrate 60 mg 60 mg PO BID 03/08/19 11/04/24 History tablet,extended release 24 hr carvedilol 25 mg tablet 50 mg PO QPM 06/01/21 11/04/24 History ranolazine 500 mg tablet,extended 500 mg PO BID 09/20/21 11/04/24 History release,12 hr (Ranexa) ResMed AirCurve 04/20/22 11/05/24 History albuterol sulfate 90 mcg/actuation 2 puff inhalation Q6H PRN 09/08/22 11/04/24 Rx aerosol inhaler shortness of breath or wheezing #8.5 grams nitroglycerin 0.4 mg sublingual 0.4 mg sublingual PRN PRN Chest 05/09/23 11/05/24 History tablet (Nitrostat) Pain hydralazine 100 mg tablet 100 mg PO BID 12/24/23 11/04/24 History Diovan 160 mg tablet (valsartan) 160 mg PO BID #180 tabs 02/29/24 11/04/24 Rx prazosin 1 mg capsule 2 mg PO BID 04/02/24 11/05/24 History apixaban 5 mg tablet 5 mg PO BID 05/07/24 11/04/24 History aspirin 81 mg tablet,delayed 81 mg PO DAILY 05/07/24 11/04/24 History release (Adult Low Dose Aspirin) diltiazem HCl 120 mg 120 mg PO BEDTIME 07/23/24 11/04/24 History capsule,extended release 24 hr Disabled Parking Permit #1 ea 10/23/24 11/05/24 Rx cyanocobalamin (vitamin B-12) 1,000 mcg SUBCUT QMONTH 11/04/24 11/04/24 History 1,000 mcg/mL injection solution furosemide 40 mg tablet (Lasix) 40 mg PO DAILY #30 tabs 11/05/24 Rx Allergies Allergy/AdvReac Type Severity Reaction Status Date / Time benazepril [From Lotensin] Allergy Severe angioadema Verified 09/23/24 13:29 adhesive Allergy Mild Verified 09/23/24 13:29 Sulfa (Sulfonamide Allergy Unknown Verified 09/23/24 13:29 Antibiotics) [SULFA (SULFONAMIDE ANTIBIOTICS)] Haemophilus B polysaccharide AdvReac Intermediate YRS AGO Verified 09/23/24 13:29 conj w CAUSED [From TriHIBit] FEVER, RECENTLY MOUTH SORES Beta-Blockers AdvReac Mild LOW Verified 09/23/24 13:29 (Beta-Adrenergic Bloc TOLERANCE - HR IN 30s - HOSPITALIZED diazepam AdvReac Mild OPPOSITE Verified 09/23/24 13:29 EFFECT, BECAME HYPER/INCOMPLIANT--O.K. WITH VERSED diphtheria,pertussis AdvReac Mild YRS AGO Verified 09/23/24 13:29 (acellular),te CAUSED [From TriHIBit] FEVER, RECENTLY MOUTH SORES pseudoephedrine AdvReac Mild INCREASED Verified 09/23/24 13:29 HEART RATE Review of Systems Review of Systems Narrative: All else reviewed and otherwise unremarkable except as noted in the history and physical. Exam Vital Signs (past 8 hours): - 11/05/24 00:00 11/05/24 04:00 Temperature 98.8 F 97.1 F L Pulse Rate 59 L 59 L Respiratory Rate 19 18 Blood Pressure 158/70 H 140/71 Pulse Oximetry 97 97 Oxygen Flow Rate 0 0 Oxygen Delivery Method Room Air Oxygen Flow Rate 0 Narrative Exam Narrative: NAD, alert and oriented, fluent speech, calm. Normocephalic skull, EOMI, anicteric sclera, symmetric pupils. Oropharynx unremarkable, no droop. Neck supple, midline trachea, no adenopathy. Lungs clear, normal rate and effort. Heart regular, no murmur gallop or rub. Abdomen is soft, non distended and non tender. Extremities are free of edema. Skin is free of rash or lesions. Joints are not swollen or deformed. Judgment appears to be normal. Objective ECG Impression: Intervals [place] Rate: 67 P: 29 [place]: 168 QRS: 36 QRSD: 94 T: 35 QT: 400 QTc: 422 Interpretive [facility] Chest x-ray: Radiologist's impression: Increased vascularity suggestive of edema. Labs 11/05/24 06:52 11/05/24 06:52 Labs: Laboratory Results - last 24 hr 11/04/24 11/04/24 11/05/24 13:42 16:01 06:52 WBC 5.3 5.8 RBC 3.93 L 4.06 Hgb 10.9 L 11.4 L Hct 33.2 L 34.1 L MCV 84.6 83.9 MCH 27.6 28.0 MCHC 32.7 33.4 RDW 15.1 H 15.0 H Plt Count 222 245 Neut % (Auto) 74.8 72.8 Lymph % (Auto) 13.5 L 16.3 L [place] % (Auto) 9.5 8.8 Eos % (Auto) 1.6 L 1.5 L Baso % (Auto) 0.6 0.6 Neut # (Auto) 4000 4200 Lymph # (Auto) 700 L 900 L [place] # (Auto) 500 500 Eos # (Auto) 100 100 Baso # (Auto) 0 0 PT 14.1 H INR 1.2 APTT 42 H Sodium 138 140 Potassium 4.6 4.2 Chloride 110 H 108 H Carbon Dioxide 21 L 24 BUN 33 H 34 H Creatinine 1.40 H 1.66 H Estimated GFR 39 L 32 L BUN/Creatinine Ratio 23.6 H 20.5 Glucose 106 102 Calcium 8.9 9.1 Magnesium 2.0 Total Bilirubin 0.9 AST 30 ALT 24 Alkaline Phosphatase 70 Total Creatine Kinase 66 Troponin I < 0.012 < 0.012 NT-Pro-B Natriuret Pep 704 H Total Protein 7.2 Albumin 4.2 Globulin 3.0 Albumin/Globulin Ratio 1.4 Lipase 262 Assessment & Plan Assessment & Plan narrative: 1. HTN Urgency,, present on admission and active. - Coreg 50 mg daily - Hydralazine 100 mg qid - Diovan 160 mg bid - Cardizem ER 120 mg daily - Lasix 20 mg daily - Imdur 60 mg daily - prn hydralazine IV - telemetry monitoring 2. A-fib, present on admission and stable. - Coreg - Eliquis 3. Acute on chronic diastolic heart failure, present on admission and much improved. - had 40 of Lasix in ED - continue with lasix 20 mg po daily - BMP pending 4. Acute hypoxic respiratory failure, present on admission and resolved. 5. Morbid obesity with BMI of 44.4, present on admission and active. Plan: -monitor her pressures and ability to ambulate this morning. She appears to have improved. I will discuss increasing Lasix to 40 daily at home with her primary applied technologist, Dr. Acevedo, [facility]. Full code. Observation status, anticipate 1 night of care needed. Time-Based Coding :: 35 min spent with patient and on the chart (including review of chart, obtaining history, exam, reviewing outside data, placing orders, documenting exam and treatment plan, and counseling patient) on 11/05. Quality MIPS - Admit I confirm the patient?s Advance Care Plan is present, Code status is documented, Surrogate decision maker is in patient?s record [If Yes, STOP here]: Yes MIPS - Meds 'Current medications' to include all prescriptions, [id number] products, herbals, cannabis/cannabidiol products, and vitamin/mineral/dietary (nutritional) supplements. I have utilized all available resources to obtain, update, or review the patient?s current medications. [If Yes, STOP here]: Yes
[2024-11-05 09:26] VITALS: BP 152/62; PULSE 69; RESP 16; TEMP 37.5; O2SAT 96
[2024-11-05] MEDS: dilTIAZem CD 120 MG CAP PO (10:43)
[2024-11-05] MEDS: APIXABAN 5 MG TABLET PO (10:43)
[2024-11-05] MEDS: ISOSORBIDE MONONITRATE ER 30 MG TABLET 60 MG PO (10:43)
[2024-11-05] MEDS: VALSARTAN 80 MG TABLET 160 MG PO (10:43)
[2024-11-05 10:44] VITALS: BP 159/62
[2024-11-05] MEDS: HYDRALAZINE 25 MG TABLET 100 MG PO (10:44)
[2024-11-05] MEDS: ASPIRIN EC 81 MG TABLET PO (10:45)
[2024-11-05] MEDS: RANOLAZINE 500 MG TAB.ER.12H PO (10:46)
[2024-11-05] MEDS: FUROSEMIDE 20 MG TABLET PO (10:46)
[2024-11-05] MEDS: ACETAMINOPHEN 325 MG TABLET 650 MG PO (10:46)
[2024-11-05] MEDS: PRAZOSIN 1 MG CAPSULE 2 MG PO (10:47)
[2024-11-05 11:25] VITALS: BP 130/66; PULSE 64
--- NOTE | 2024-11-05 11:37 | P.DS_ITS ---
History of Present Illness History of Present Illness Chief complaint: chest pain Narrative: From night doctor: 74-year-old female with past medical history of CAD, s/p 5 stents (followed in [place]), HFpEF, A-fib, presented with chest pressure, exertional dyspnea, increased b/l leg swelling, with SBP of ~ 200. No evidence of ACS, EKG non-ischemic, 2 troponins not elevated. Recently had added Cardizem to very intensive regimen of hydralazine, prazosin, Diovan, Lasix, Coreg and Imdur. Intolerant of HCTZ (gout), ACEI and Norvasc. Placed in observation with hypertensive urgency. S: Discharge Providers Provider Date of admission: 11/04/24 23:30 Primary care physician: La Torres DO Discharge provider: Bry Gonzalez MD Exam Vital Signs (past 8 hours): - 11/05/24 04:00 11/05/24 09:26 11/05/24 10:44 Temperature 97.1 F L 99.5 F Pulse Rate 59 L 69 Respiratory Rate 18 16 Blood Pressure 140/71 152/62 H 159/62 H Pulse Oximetry 97 96 Oxygen Flow Rate 0 0 Oxygen Delivery Method Room Air Oxygen Flow Rate 0 Objective Labs 11/05/24 06:52 11/05/24 06:52 Labs: Laboratory Results - last 24 hr 11/04/24 11/04/24 11/05/24 13:42 16:01 06:52 WBC 5.3 5.8 RBC 3.93 L 4.06 Hgb 10.9 L 11.4 L Hct 33.2 L 34.1 L MCV 84.6 83.9 MCH 27.6 28.0 MCHC 32.7 33.4 RDW 15.1 H 15.0 H Plt Count 222 245 Neut % (Auto) 74.8 72.8 Lymph % (Auto) 13.5 L 16.3 L [place] % (Auto) 9.5 8.8 Eos % (Auto) 1.6 L 1.5 L Baso % (Auto) 0.6 0.6 Neut # (Auto) 4000 4200 Lymph # (Auto) 700 L 900 L [place] # (Auto) 500 500 Eos # (Auto) 100 100 Baso # (Auto) 0 0 PT 14.1 H INR 1.2 APTT 42 H Sodium 138 140 Potassium 4.6 4.2 Chloride 110 H 108 H Carbon Dioxide 21 L 24 BUN 33 H 34 H Creatinine 1.40 H 1.66 H Estimated GFR 39 L 32 L BUN/Creatinine Ratio 23.6 H 20.5 Glucose 106 102 Calcium 8.9 9.1 Magnesium 2.0 Total Bilirubin 0.9 AST 30 ALT 24 Alkaline Phosphatase 70 Total Creatine Kinase 66 Troponin I < 0.012 < 0.012 NT-Pro-B Natriuret Pep 704 H Total Protein 7.2 Albumin 4.2 Globulin 3.0 Albumin/Globulin Ratio 1.4 Lipase 262 PFSH Medical History Bronchitis Strain of AC joint Tooth abscess Hypertensive urgency History of [place] (myocardial infarction) (~2020) History of CVA (cerebrovascular accident) Concussion COVID-19 Sleep apnea Shoulder pain Diastolic heart failure Atrial fibrillation Iron deficiency anemia Ocular migraine History of stent insertion of renal artery Bone lesion Left renal artery stenosis (~11/22/20) 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) Parumbilical hernia (~11/22/20) Hiatal hernia (~11/22/20) Osteopenia of femoral neck, bilateral (~02/2019) Macular degeneration, age related, nonexudative Dyslipidemia Thyroid nodule Proteus enteritis (~2018) EBV infection (~1962) Coccidioidomycosis (~1962) Heterozygous MTHFR mutation C677T Renal artery atherosclerosis (09/22/11) Systemic lupus erythematosus Atypical nevus of abdominal wall Lipoma Angioedema Statin intolerance Elevated coronary artery calcium score Prinzmetal's angina (1975) Hypertension CAD (coronary artery disease) (1979) Shingles (2016) Asthma History of recurrent pneumonia Severe obstructive sleep apnea-hypopnea syndrome (10/22/15) Surgical History History of melanoma excision Anesthesia H/O colonoscopy with polypectomy (~04/2020) History of tonsillectomy History of cholecystectomy Stented coronary artery (2013) History of arthroplasty (01/20/13) History of arthroplasty (12/09/12) History of cataract removal with insertion of prosthetic lens (2014) Family History Father Lung cancer Hypertension Mother Parkinson's disease Breast cancer CAD (coronary artery disease) Brother History of heart disease Social History marital status: household members: friend(s) lives independently: No caregiver/support person: No pets and animals: Yes Smoking Status: Never smoker alcohol intake: never Discharge Plan Discharge Plan Patient Disposition: Home Discharge orders & Medications Prescriptions: New furosemide [Lasix] 40 mg tablet 40 mg PO DAILY Qty: 30 0RF Continued ranolazine [Ranexa] 500 mg tablet extended release 12 hr 500 mg PO BID valsartan [Diovan] 160 mg tablet 160 mg PO BID Qty: 180 3RF isosorbide mononitrate 60 mg tablet extended release 24 hr 60 mg PO BID Patient Comments: 120 mg qam, 30 mg qpm PO DAILY; albuterol sulfate 90 mcg/actuation HFA aerosol inhaler 2 puff inhalation Q6H PRN (Reason: shortness of breath or wheezing) Qty: 8.5 0RF aspirin [Adult Low Dose Aspirin] 81 mg tablet,delayed release (DR/EC) 81 mg PO DAILY apixaban 5 mg tablet 5 mg PO BID diltiazem HCl 120 mg capsule,extended release 24hr 120 mg PO BEDTIME nitroglycerin [Nitrostat] 0.4 mg tablet, sublingual 0.4 mg sublingual PRN PRN (Reason: Chest Pain) prazosin 1 mg capsule 2 mg PO BID Patient Comments: 2 at night and one in the morning Rx Instructions: 2mg at night and 1 in morning hydralazine 100 mg tablet 100 mg PO BID (DME) Disabled Parking Permit See Rx Instructions .ROUTE .MEDSUPPLY Qty: 1 0RF Rx Instructions: Valid for 5 years cyanocobalamin (vitamin B-12) 1,000 mcg/mL solution 1,000 mcg SUBCUT QMONTH carvedilol 25 mg tablet 50 mg PO QPM (DME) ResMed AirCurve See Rx Instructions .Route .MEDSUPPLY Rx Instructions: BIPAP IPAP: 14 EPAP: 5 PS: 4 DME: [facility] Discontinued furosemide 20 mg tablet 20 mg PO DAILY Follow up/Referrals: La Torres, [Primary Care Provider] - Discharge Health Status Multidrug resistant organism: No MDRO Diet/Activity/Treatments Diet: Low-sodium Activity: As tolerated. Visit Report/Discharge Packet Instructions: DI for Prescription Opioid Use Stand Alone Forms: Congestive Heart Failure, Patient Portal/API Discharge Data Primary Care Provider: La Torres Attending Provider: Blake Humphries [place] Date/Time: 11/04/24 23:30
[2024-11-05 12:09] VITALS: BP 130/66; PULSE 64; RESP 16; TEMP 36.8; O2SAT 98
--- NOTE | 2024-11-05 14:33 | CM.DANOTE ---
Initial DCP Assessment Visit Note Reviewed EMR and team rounds for status updates. Went to meet with pt in the room, however she had already discharged home. Pt resides independently at baseline in her own home with her sister. Family were also able to transport her home after she was medically cleared for home d/c, No identified CM d/c assistance or resource needs were identified during her stay. Payor: Medicare PCP: La Torres Pt is a 74 year-old F who presented to the ED with chest heaviness, hx of WI's and hypertensive urgency. Cardiology was consulted, plan was made to admit to [facility] for further heart monitoring, diuresis. No further needs are identified at this time. Discharge Planning/Care Management CM Discharge Assessment Start: 11/05/24 14:29 Freq: Status: Active Protocol: Document 11/05/24 14:29 DPL (Rec: 11/05/24 14:32 DPL [id number]) Discharge Planning Assessment Assigned Compensation Business Partner ÁNGEL Vick Advance Directives? No Advance Directives on File No History Provided By Medical Record Has Patient been admitted in last 30 No days? Prior Living Arrangements House Household Members family,friend(s) Type of transporation used prior to Drives own vehicle admit Independent with ADL's Yes Is patient alert and oriented? Yes Comment N/A Caregiver for Another No Comment No identified d/c needs at this time. Discharge Plan Home Transportation Arrangement Friend Referrals Initiated None needed Whiteboard Updated in Patient Room with Yes name and ext. # of Compensation Business Partner Review Status In Process Please Provide Date Initial DC 11/05/24 Assessment Was Performed
--- NOTE | 2024-11-05 17:09 | PM.DS.1 ---
History of Present Illness History of Present Illness Date Patient Seen: 11/05/24 Chief complaint: chest pain Narrative: From night doctor: 74-year-old female with past medical history of CAD, s/p 5 stents (followed in [place]), HFpEF, A-fib, presented with chest pressure, exertional dyspnea, increased b/l leg swelling, with SBP of ~ 200. No evidence of ACS, EKG non-ischemic, 2 troponins not elevated. Recently had added Cardizem to very intensive regimen of hydralazine, prazosin, Diovan, Lasix, Coreg and Imdur. Intolerant of HCTZ (gout), ACEI and Norvasc. Placed in observation with hypertensive urgency. S: She was history of chronic kidney disease and diastolic heart failure. She used to take Lasix 40 day but now takes 20 a day. She developed progressive edema of her legs and then dyspnea. She improved overnight with regard to hypoxemia, hypertensive urgency, and dyspnea with IV Lasix. In the day of discharge her pressures were improved. She notes that the edema came on over the last week to 2 weeks and is unusual for her. Her labs have been stable. Her last echo she reports was within the last 4 months at [facility] and had normal systolic function and diastolic dysfunction noted. ECG was unremarkable. Discharge Providers Provider Date of admission: 11/04/24 23:30 Discharge Date: 11/05/24 Primary care physician: La Torres DO Consults: Discussed with the design engineer marine equipment, Acevedo. Discharge provider: Bry Gonzalez MD Summary Hospital Course Discharge Diagnosis: 1. HTN Urgency,, present on admission and resolved. - Coreg 50 mg daily - Hydralazine 100 mg qid - Diovan 160 mg bid - Cardizem ER 120 mg daily - Lasix 20 mg daily - Imdur 60 mg daily - prn hydralazine IV - telemetry monitoring 2. A-fib, present on admission and stable. - Coreg - Eliquis 3. Acute on chronic diastolic heart failure, present on admission and much improved. - had 40 of Lasix in ED - continue with lasix 20 mg po daily - BMP pending 4. Acute hypoxic respiratory failure, present on admission and resolved. 5. Morbid obesity with BMI of 44.4, present on admission and active. Status at Discharge Cognitive/behavioral status at discharge: oriented Functional status at discharge: independent ambulation Overall status at discharge: patient is back to baseline Time Spent with Patient Time spent: Greater than 30 minutes Exam Vital Signs (past 8 hours): - 11/05/24 09:26 11/05/24 10:44 11/05/24 11:25 Temperature 99.5 F Pulse Rate 69 64 Respiratory Rate 16 Blood Pressure 152/62 H 159/62 H 130/66 Pulse Oximetry 96 Oxygen Flow Rate 0 11/05/24 12:09 Temperature 98.2 F Pulse Rate 64 Respiratory Rate 16 Blood Pressure 130/66 Pulse Oximetry 98 Oxygen Flow Rate 0 Oxygen Delivery Method Room Air Oxygen Flow Rate 0 Narrative Exam Narrative: NAD, alert and oriented. Fluent speech. Lungs are clear, normal rate and effort. Heart is regular, no murmur gallop or rub. Abdomen is soft, non distended. Extremities are free of edema. Objective ECG Impression: Intervals [place] Rate: 67 P: 29 TN: 168 QRS: 36 QRSD: 94 T: 35 QT: 400 QTc: 422 Interpretive Statements Normal sinus rhythm Imaging Chest x-ray: Radiologist's impression: Radiologist's impression: Increased vascularity suggestive of edema. Labs 11/05/24 06:52 11/05/24 06:52 Labs: Laboratory Results - last 24 hr 11/05/24 06:52 WBC 5.8 RBC 4.06 Hgb 11.4 L Hct 34.1 L MCV 83.9 MCH 28.0 MCHC 33.4 RDW 15.0 H Plt Count 245 Neut % (Auto) 72.8 Lymph % (Auto) 16.3 L [place] % (Auto) 8.8 Eos % (Auto) 1.5 L Baso % (Auto) 0.6 Neut # (Auto) 4200 Lymph # (Auto) 900 L [place] # (Auto) 500 Eos # (Auto) 100 Baso # (Auto) 0 Sodium 140 Potassium 4.2 Chloride 108 H Carbon Dioxide 24 BUN 34 H Creatinine 1.66 H Estimated GFR 32 L BUN/Creatinine Ratio 20.5 Glucose 102 Calcium 9.1 PFSH Medical History Bronchitis Strain of AC joint Tooth abscess Hypertensive urgency History of [place] (myocardial infarction) (~2020) History of CVA (cerebrovascular accident) Concussion COVID-19 Sleep apnea Shoulder pain Diastolic heart failure Atrial fibrillation Iron deficiency anemia Ocular migraine History of stent insertion of renal artery Bone lesion Left renal artery stenosis (~11/22/20) 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) Parumbilical hernia (~11/22/20) Hiatal hernia (~11/22/20) Osteopenia of femoral neck, bilateral (~02/2019) Macular degeneration, age related, nonexudative Dyslipidemia Thyroid nodule Proteus enteritis (~2018) EBV infection (~1962) Coccidioidomycosis (~1962) Heterozygous MTHFR mutation C677T Renal artery atherosclerosis (09/22/11) Systemic lupus erythematosus Atypical nevus of abdominal wall Lipoma Angioedema Statin intolerance Elevated coronary artery calcium score Prinzmetal's angina (1975) Hypertension CAD (coronary artery disease) (1979) Shingles (2016) Asthma History of recurrent pneumonia Severe obstructive sleep apnea-hypopnea syndrome (10/22/15) Surgical History History of melanoma excision Anesthesia H/O colonoscopy with polypectomy (~04/2020) History of tonsillectomy History of cholecystectomy Stented coronary artery (2013) History of arthroplasty (01/20/13) History of arthroplasty (12/09/12) History of cataract removal with insertion of prosthetic lens (2014) Family History Father Lung cancer Hypertension Mother Parkinson's disease Breast cancer CAD (coronary artery disease) Brother History of heart disease Social History marital status: household members: family and friend(s) lives independently: No caregiver/support person: No pets and animals: Yes Smoking Status: Never smoker alcohol intake: never Discharge Assessment & Plan Assessment and Plan Assessment: 1. HTN Urgency,, present on admission and resolved. 2. A-fib, present on admission and stable. 3. Acute on chronic diastolic heart failure, present on admission and much improved. 4. Acute hypoxic respiratory failure, present on admission and resolved. 5. Morbid obesity with BMI of 44.4, present on admission and active. Plan of Treatment: Discussed with the design engineer marine equipment, we will discharge on same home meds except we will increase Lasix to 40 mg a day and she will check daily weights and monitor blood pressures. She sees him within the next several weeks. Discharge Plan Discharge Plan Patient Disposition: Home Provider Discharge Comment: Discussed with her design engineer marine equipment. Stable for discharge on increased Lasix. Discharge orders & Medications Prescriptions: New furosemide [Lasix] 40 mg tablet 40 mg PO DAILY Qty: 30 0RF Continued ranolazine [Ranexa] 500 mg tablet extended release 12 hr 500 mg PO BID valsartan [Diovan] 160 mg tablet 160 mg PO BID Qty: 180 3RF isosorbide mononitrate 60 mg tablet extended release 24 hr 60 mg PO BID Patient Comments: 120 mg qam, 30 mg qpm PO DAILY; albuterol sulfate 90 mcg/actuation HFA aerosol inhaler 2 puff inhalation Q6H PRN (Reason: shortness of breath or wheezing) Qty: 8.5 0RF aspirin [Adult Low Dose Aspirin] 81 mg tablet,delayed release (DR/EC) 81 mg PO DAILY apixaban 5 mg tablet 5 mg PO BID diltiazem HCl 120 mg capsule,extended release 24hr 120 mg PO BEDTIME nitroglycerin [Nitrostat] 0.4 mg tablet, sublingual 0.4 mg sublingual PRN PRN (Reason: Chest Pain) prazosin 1 mg capsule 2 mg PO BID Patient Comments: 2 at night and one in the morning Rx Instructions: 2mg at night and 1 in morning hydralazine 100 mg tablet 100 mg PO BID (DME) Disabled Parking Permit See Rx Instructions .ROUTE .MEDSUPPLY Qty: 1 0RF Rx Instructions: Valid for 5 years cyanocobalamin (vitamin B-12) 1,000 mcg/mL solution 1,000 mcg SUBCUT QMONTH carvedilol 25 mg tablet 50 mg PO QPM (DME) ResMed AirCurve See Rx Instructions .Route .MEDSUPPLY Rx Instructions: BIPAP IPAP: 14 EPAP: 5 PS: 4 DME: [facility] Discontinued furosemide 20 mg tablet 20 mg PO DAILY Follow up/Referrals: La Torres DO [Primary Care Provider] - Discharge Health Status Multidrug resistant organism: No MDRO Diet/Activity/Treatments Diet: Low-sodium Activity: As tolerated. Visit Report/Discharge Packet Instructions: DI for Prescription Opioid Use Stand Alone Forms: Congestive Heart Failure, Patient Portal/API Discharge Data Primary Care Provider: La Torres Attending Provider: Blake Humphries Admit Date/Time: 11/04/24 23:30 Quality MIPS - DC The patient has a history of heart transplant or Left Ventricular Assist Device (LVAD). If yes, STOP here.: No The patient has current or prior documentation of left ventricular ejection fraction (LVEF) less than or equal to 40%, or moderate or severely depressed left ventricular systolic function.: No
== END 2024-11-05 12:45 | disposition home or self-care (01) ==
LOC: ED 23:26 → AC 23:31
PROVIDERS: Emergency Medicine; Admitting Provider Internal Medicine; Emergency Provider Emergency Medicine; PCP Family Medicine; Referring Provider Emergency Medicine; Visit Provider Internal Medicine
DX: I16.0 Hypertensive urgency (principal); I11.0 Hypertensive heart disease with heart failure; I50.33 Acute on chronic diastolic (congestive) heart failure; I48.0 Paroxysmal atrial fibrillation; I25.118 Atherosclerotic heart disease of native coronary artery with other forms of angina pectoris; Z95.818 Presence of other cardiac implants and grafts; E66.01 Morbid (severe) obesity due to excess calories; Z68.41 Body mass index [BMI] 40.0-44.9, adult; J96.01 Acute respiratory failure with hypoxia
CPT/HCPCS: 36415; 71045; 80048; 80053; 82550; 83690; 83735; 83880; 84484; 85025; 85610; 85730; 93005; 93010; 96374; 99284; 99285; G0378; J1940

== ENCOUNTER 2025-02-02 10:23 | Emergency (ER) | payer MEDICARE, BC, SELFPAY ==
[2024-11-04 23:36] VITALS: BMI 40.7
[2025-02-02] VITALS (37 sets, daily range): BP systolic 138–186; BP diastolic 59–88; PULSE 55–85; RESP 11–25; TEMP 36.6; O2SAT 96–100; BMI 40.3
--- NOTE | 2025-02-02 10:32 | EKG_ITS ---
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
--- NOTE | 2025-02-02 10:37 | ED.CHESTPAIN ---
HPI - Chest Pain General Chief Complaint: Chest Pain Stated Complaint: Pain between shoulder blades Time Seen by Provider: 02/02/25 10:35 Source: patient Mode of arrival: Ambulatory History of Present Illness HPI narrative: Patient is a 74-year-old female history of coronary artery disease possibly microvascular disease just had her 6 coronary artery stent last week at [facility], hypertension, diastolic heart failure presenting to day with pain between shoulder blades. She reports the she was admitted last week ultimately had elevated troponin and 6 stent placed placed on a nitroglycerin drip and then her troponin trended down words pain resolved and she was discharged home. She had pain between her shoulder blades last night and has pain there now. She says that she does get her angina pain in the same spot. Last night she took 3 nitroglycerin it went away and she went back to sleep. Now she was requesting just to know what her troponin is she was told that if her troponin Re elevated that it could mean worse outcome. She currently has pain between her shoulder blades now. No significant shortness of breath she never really has any chest pain. She took Eliquis and Plavix this is morning Related Data Home Medications Medication Instructions Recorded Confirmed isosorbide mononitrate 60 mg 120 mg PO BID 03/08/19 02/04/25 tablet,extended release 24 hr carvedilol 25 mg tablet 50 mg PO QPM 06/01/21 02/04/25 ranolazine 500 mg tablet,extended 500 mg PO BID 09/20/21 02/04/25 release,12 hr (Ranexa) ResMed AirCurve 04/20/22 02/04/25 nitroglycerin 0.4 mg sublingual 0.4 mg sublingual PRN PRN Chest 05/09/23 02/04/25 tablet (Nitrostat) Pain hydralazine 100 mg tablet 100 mg PO BID 12/24/23 02/04/25 prazosin 1 mg capsule 2 mg PO BID 04/02/24 02/04/25 apixaban 5 mg tablet 5 mg PO BID 05/07/24 02/04/25 aspirin 81 mg tablet,delayed 81 mg PO DAILY 05/07/24 02/04/25 release (Adult Low Dose Aspirin) diltiazem HCl 120 mg 120 mg PO BEDTIME 07/23/24 02/04/25 capsule,extended release 24 hr clopidogrel 75 mg tablet 75 mg PO DAILY 02/02/25 02/04/25 isosorbide mononitrate 120 mg 120 mg PO DAILY 02/04/25 02/04/25 tablet,extended release 24 hr torsemide 20 mg tablet 20 mg PO DAILY 02/04/25 02/04/25 Previous Rx's Medication Instructions Recorded albuterol sulfate 90 mcg/actuation 2 puff inhalation Q6H PRN 09/08/22 aerosol inhaler shortness of breath or wheezing #8.5 grams Diovan 160 mg tablet (valsartan) 160 mg PO BID #180 tabs 02/29/24 Disabled Parking Permit #1 ea 10/23/24 furosemide 40 mg tablet (Lasix) 40 mg PO DAILY #30 tabs 11/05/24 dexamethasone 2 mg tablet 2 mg PO DAILY PRN first onset URI 11/20/24 x1-3 days #6 tabs cyanocobalamin (vitamin B-12) 1,000 mcg SUBCUT QMONTH #1 mL 01/14/25 1,000 mcg/mL injection solution Allergies Allergy/AdvReac Type Severity Reaction Status Date / Time benazepril [From Lotensin] Allergy Severe angioadema Verified 02/02/25 10:37 adhesive Allergy Mild Verified 02/02/25 10:37 Sulfa (Sulfonamide Allergy Unknown Verified 02/02/25 10:37 Antibiotics) [SULFA (SULFONAMIDE ANTIBIOTICS)] Haemophilus B polysaccharide AdvReac Intermediate YRS AGO Verified 02/02/25 10:37 conj w CAUSED [From TriHIBit] FEVER, RECENTLY MOUTH SORES Beta-Blockers AdvReac Mild LOW Verified 02/02/25 10:37 (Beta-Adrenergic Bloc TOLERANCE - HR IN 30s - HOSPITALIZED diazepam AdvReac Mild OPPOSITE Verified 02/02/25 10:37 EFFECT, BECAME HYPER/INCOMPLIANT--O.K. WITH VERSED diphtheria,pertussis AdvReac Mild YRS AGO Verified 02/02/25 10:37 (acellular),te CAUSED [From TriHIBit] FEVER, RECENTLY MOUTH SORES pseudoephedrine AdvReac Mild INCREASED Verified 02/02/25 10:37 HEART RATE Patient History Medical History Bronchitis Strain of AC joint Tooth abscess Hypertensive urgency History of UT (myocardial infarction) (~2020) History of CVA (cerebrovascular accident) Concussion COVID-19 Sleep apnea Shoulder pain Diastolic heart failure Atrial fibrillation Iron deficiency anemia Ocular migraine History of stent insertion of renal artery Bone lesion Left renal artery stenosis (~11/22/20) 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) Parumbilical hernia (~11/22/20) Hiatal hernia (~11/22/20) Osteopenia of femoral neck, bilateral (~02/2019) Macular degeneration, age related, nonexudative Dyslipidemia Thyroid nodule Proteus enteritis (~2018) EBV infection (~1962) Coccidioidomycosis (~1962) Heterozygous MTHFR mutation [id number] Renal artery atherosclerosis (09/22/11) Systemic lupus erythematosus Atypical nevus of abdominal wall Lipoma Angioedema Statin intolerance Elevated coronary artery calcium score Prinzmetal's angina (1975) Hypertension CAD (coronary artery disease) (1979) Shingles (2016) Asthma History of recurrent pneumonia Severe obstructive sleep apnea-hypopnea syndrome (10/22/15) Surgical History History of melanoma excision Anesthesia H/O colonoscopy with polypectomy (~04/2020) History of tonsillectomy History of cholecystectomy Stented coronary artery (2013) History of arthroplasty (01/20/13) History of arthroplasty (12/09/12) History of cataract removal with insertion of prosthetic lens (2014) Family History Father Lung cancer Hypertension Mother Parkinson's disease Breast cancer CAD (coronary artery disease) Brother History of heart disease Social History marital status: household members: family and friend(s) lives independently: No caregiver/support person: No pets and animals: Yes Smoking Status: Never smoker alcohol intake: never alcohol intake frequency: holidays/special occasions only Exam Initial Vital Signs Initial Vital Signs: Vital Signs Pulse Rate 69 02/02/25 10:30 Pulse Oximetry 99 02/02/25 10:30 GENERAL: Alert well-appearing 74-year-old female HEENT: Head atraumatic,EOMI, pupils reactive, face symmetric, moist mucous membranes CARDIOVASCULAR: Regular rate and rhythm without murmurs, rubs or gallops. RESPIRATORY: Breath sounds equal bilaterally, no wheezes rales or rhonchi. ABDOMEN: Soft, nontender. Normoactive bowel sounds all 4 quadrants. No guarding or rebound. EXTREMITIES: Normal range of motion, no clubbing or edema. Neurovascularly intact NEUROLOGICAL: Alert and oriented x4.Normal gait and speech. Cranial nerves II through XII grossly intact. SKIN: Warm, dry, no laceration, no petechiae, no rashes or lesions. Course Orders Ordered: Discontinued Medications Nitroglycerin (Nitroglycerin) 50 mg in 250 mls @ 1.5 mls/hr IV TITRATE HEVER; Protocol Last Titration: 02/02/25 15:36 Dose: 0 mcg/min, 0 mls/hr Documented By: Titration: 02/02/25 15:06 Dose: 5 mcg/min, 1.5 mls/hr Documented By: Titration: 02/02/25 12:17 Dose: 12.5 mcg/min, 3.75 mls/hr Documented By: Titration: 02/02/25 11:48 Dose: 10 mcg/min, 3 mls/hr Documented By: Admin: 02/02/25 11:16 Dose: 5 mcg/min, 1.5 mls/hr Documented By: Nitroglycerin (Nitroglycerin 0.4 Mg Sl Tab) 0.4 mg SL [id number] PRN PRN Reason: Chest Pain Last Admin: 02/02/25 11:09 Dose: 0.4 mg Documented By: Admin: 02/02/25 11:03 Dose: 0.4 mg Documented By: Admin: 02/02/25 10:56 Dose: 0.4 mg Documented By: Vital Signs Vital signs: Vital Signs - 8 hr 02/02/25 10:48 02/02/25 10:48 02/02/25 10:56 Temperature Pulse Rate 61 85 Respiratory Rate 13 Blood Pressure 147/66 H 147/88 H Pulse Oximetry 98 Oxygen Delivery Method 02/02/25 11:00 02/02/25 11:01 02/02/25 11:01 Temperature Pulse Rate 59 L 60 Respiratory Rate 12 11 L Blood Pressure 153/67 H Pulse Oximetry 99 98 Oxygen Delivery Method Room Air 02/02/25 11:03 02/02/25 11:05 02/02/25 11:05 Temperature Pulse Rate 58 L 58 L Respiratory Rate 15 Blood Pressure 153/77 H 150/64 H Pulse Oximetry 97 Oxygen Delivery Method 02/02/25 11:09 02/02/25 11:10 02/02/25 11:10 Temperature Pulse Rate 60 58 L Respiratory Rate 17 Blood Pressure 150/64 H 152/64 H Pulse Oximetry 97 Oxygen Delivery Method 02/02/25 11:15 02/02/25 11:15 02/02/25 11:20 Temperature Pulse Rate 58 L Respiratory Rate 14 Blood Pressure 146/65 H 147/65 H Pulse Oximetry 96 Oxygen Delivery Method 02/02/25 11:20 02/02/25 11:30 02/02/25 11:30 Temperature Pulse Rate 58 L 56 L Respiratory Rate 17 16 Blood Pressure 155/65 H Pulse Oximetry 97 98 Oxygen Delivery Method 02/02/25 11:40 02/02/25 11:40 02/02/25 11:50 Temperature Pulse Rate 58 L Respiratory Rate 18 Blood Pressure 150/67 H 157/69 H Pulse Oximetry 97 Oxygen Delivery Method 02/02/25 11:50 02/02/25 12:00 02/02/25 12:00 Temperature Pulse Rate 59 L 60 Respiratory Rate 18 12 Blood Pressure 151/64 H Pulse Oximetry 98 97 Oxygen Delivery Method 02/02/25 12:10 02/02/25 12:10 02/02/25 12:20 Temperature Pulse Rate 59 L 58 L Respiratory Rate 18 18 Blood Pressure 154/64 H Pulse Oximetry 97 97 Oxygen Delivery Method 02/02/25 12:20 02/02/25 12:30 02/02/25 12:30 Temperature Pulse Rate 56 L Respiratory Rate 15 Blood Pressure 158/67 H 161/67 H Pulse Oximetry 97 Oxygen Delivery Method 02/02/25 12:40 02/02/25 12:40 02/02/25 12:50 Temperature Pulse Rate 55 L 57 L Respiratory Rate 15 14 Blood Pressure 162/68 H Pulse Oximetry 97 97 Oxygen Delivery Method 02/02/25 12:50 02/02/25 13:00 02/02/25 13:00 Temperature Pulse Rate 55 L Respiratory Rate 12 Blood Pressure 171/74 H 168/75 H Pulse Oximetry 96 Oxygen Delivery Method 02/02/25 13:10 02/02/25 13:10 02/02/25 13:20 Temperature Pulse Rate 56 L Respiratory Rate 18 Blood Pressure 163/69 H 169/72 H Pulse Oximetry 98 Oxygen Delivery Method 02/02/25 13:20 02/02/25 13:30 02/02/25 13:30 Temperature Pulse Rate 56 L 58 L Respiratory Rate 16 18 Blood Pressure 172/72 H Pulse Oximetry 98 97 Oxygen Delivery Method 02/02/25 13:40 02/02/25 13:40 02/02/25 13:50 Temperature Pulse Rate 59 L 59 L Respiratory Rate 25 H 22 Blood Pressure 156/70 H Pulse Oximetry 99 98 Oxygen Delivery Method Room Air 02/02/25 13:50 02/02/25 14:00 02/02/25 14:00 Temperature Pulse Rate 62 Respiratory Rate 24 Blood Pressure 149/59 H 151/63 H Pulse Oximetry 97 Oxygen Delivery Method 02/02/25 14:11 02/02/25 14:11 02/02/25 14:20 Temperature Pulse Rate 62 Respiratory Rate 23 Blood Pressure 170/70 H 186/72 H Pulse Oximetry 97 Oxygen Delivery Method 02/02/25 14:20 02/02/25 14:28 02/02/25 14:28 Temperature Pulse Rate 58 L 60 Respiratory Rate 21 22 Blood Pressure 138/69 Pulse Oximetry 99 100 Oxygen Delivery Method 02/02/25 14:30 02/02/25 15:00 02/02/25 15:30 Temperature Pulse Rate 60 61 59 L Respiratory Rate 24 17 21 Blood Pressure Pulse Oximetry 99 98 98 Oxygen Delivery Method 02/02/25 16:00 02/02/25 16:30 02/02/25 16:40 Temperature 97.9 F Pulse Rate 56 L 56 L 58 L Respiratory Rate 16 17 19 Blood Pressure 154/67 H Pulse Oximetry 97 100 Oxygen Delivery Method MDM - Chest Pain Lab Data 02/02/25 10:40 02/02/25 10:40 Labs: Lab Results 02/02/25 02/02/25 Range/Units 10:40 12:31 WBC 4.7 (4.5-11.0) X10^3/uL RBC 3.26 L (4.0-5.2) X10^6/uL Hgb 9.4 L (12.0-16.0) g/dL Hct 28.0 L (36-46) % MCV 86.1 (80-100) fL MCH 28.9 (26-34) PG MCHC 33.5 (30-36) % RDW 15.0 H (11.6-14.8) % Plt Count 210 (150-400) X10^3/uL Neut % (Auto) 75.2 H (50-75) % Lymph % (Auto) 13.3 L (25-40) % [place] % (Auto) 9.0 (3-14) % Eos % (Auto) 1.7 L (2-4) % Baso % (Auto) 0.8 (0-2) % Neut # (Auto) 3500 (2540-1639) /uL Lymph # (Auto) 600 L (8831-8028) /uL [place] # (Auto) 400 (0-900) /uL Eos # (Auto) 100 (0-450) /uL Baso # (Auto) 0 (0-100) /uL PT 14.5 H (9.4-12.5) SECONDS INR 1.3 (0.9-1.3) APTT 41 H (25.1-36.5) SECONDS Sodium 139 (137-145) mmol/L Potassium 4.6 (3.4-5.1) mmol/L Chloride 107 (98-107) mmol/L Carbon Dioxide 24 (22-32) mmol/L BUN 26 H (7-17) mg/dL Creatinine 1.50 H (0.52-1.04) mg/dL Estimated GFR 36 L (>60) mL/min BUN/Creatinine Ratio 17.3 (6-22) Glucose 115 H (70-99) mg/dL Lactate 1.1 (0.7-2.1) mmol/L Calcium 8.6 (8.4-10.2) mg/dL Magnesium 2.1 (1.6-2.3) mg/dL Total Bilirubin 0.9 (0.2-1.3) mg/dL AST 25 (14-36) IU/L ALT 28 (<35) IU/L Alkaline Phosphatase 72 (38-126) U/L Total Creatine Kinase 42 (30-135) U/L Troponin I < 0.012 < 0.012 (0.01-0.034) ng/mL NT-Pro-B Natriuret Pep 416 (<450) pg/mL Total Protein 6.4 (6.3-8.2) g/dL Albumin 3.9 (3.5-5.0) g/dL Globulin 2.5 (1.7-4.1) g/dL Albumin/Globulin Ratio 1.6 (1.0-2.8) Lipase 210 (23-300) U/L ECG Data Attestation: I personally reviewed and interpreted this ECG as follows: Interpretation: Hurts EKGs appears to have artifact possibly atrial flutter rate 69 Repeat EKGs is sinus rhythm rate 62 FL interval 142 QRS 100 QTC 420 significant T-wave inversion noted in lead [address] elevations T-wave inversion is new from prior EKGs in October of 2024. MDM Narrative Medical decision making narrative: Patient is a 74-year-old female history of complex CAD Prinzmetal angina 6 cardiac stents 2 recent admissions to [facility] presenting today with between scapular pain. What she reports is how her angina presents. She has no chest pain no shortness of breath she overall appears well. Pain is not reproducible. She does not want any imaging done Blood work has been reviewed Negative troponin x2 No leukocytosis, hemoglobin slightly lower 9.4 with a hematocrit of 28 platelets 210 previously hemoglobin 11.4 hematocrit 34.1 CMP no significant electrolyte abnormality creatinine has improved is 1.5 as previously 1.6 Lactate 1.1 Bilirubin liver enzymes within normal limits lipase 2 to EKGs does show T-wave inversion in 3 and AVF, I did confirm with [facility] that this is similar to her EKGs during her last admission 14[address] Dr[address] [place] [facility] updated patient's symptoms test results. Aware that she was still on a nitro drip with negative troponins. States that if she was still requiring nitro drip for pain with definitely consider transfer and admission. However no elevation in troponin is overall reassuring also confirms that EKGs is stable. Cardiology reviewed record also could increase Renexa Patient was on a nitro drip initially sublingual nitroglycerin dropped her pain from a 10 to a 4 however it has remained steadily out of 4. I put her on a nitroglycerin drip pain actually remained pretty stable we tried titrating the drip up pain did not improve without significantly. Drip was titrated down and eventually turned off and pain remained exactly the same. She reports that she had a CT chest at [facility]. We attempted to get records Her pain initially was responsive to nitroglycerin and then it kind of rubbing to same. Patient has sounds like she has this pain off and on. She was quite frustrated not sure when she should come to the emergency department. Recommend she follow up with Cardiology. I offered to increase her Ranexa based on Cardiology recommendations, however she reports that they were hesitant to do so because of her kidney function. She does have a GFR 46 a creatinine of 1.5 which is stable for her. Patient was given option of being transferred to other facility or going home and following up. Sounds like patient would like to just go home she was 2- troponins. She was offered multiple pain medications in the ED but declined. She was offered Tylenol Dilaudid and others. But declined. She did develop left-sided pain which was also very reproducible. Dissection was considered however blood pressure not significantly high this presents like her typical angina discussed case with Cardiology. Did not see need to repeat CT scan. Records were not received until after patient was discharged. She had a noncontrast CT of her chest last week which did not show an obvious dissection. Patient was called back the following day encouraged to return back for CT angio however she wanted to follow up with her primary care provider. Discharge Plan Departure Patient Disposition: Home Clinical Impression: Angina at rest Instructions: DI for Angina Activity Restrictions/Additional Instructions: *You have been diagnosed with angina *What to do: You were offered to go to another facility however choosing to go home. Make sure that you follow up closely with your cardiology team to help you come up with a plan and maximize all of your medications. I am sorry you have to go through the *Continue to take medications as directed *Follow up with your primary care provider in 2-3 days or call [phone] Call tomorrow to schedule follow up appointment *Return to ER if you should have increasing pain chest pain shortness of breath or any new, worsening or concerning symptoms Prescriptions: No Action ranolazine [Ranexa] 500 mg tablet extended release 12 hr 500 mg PO BID valsartan [Diovan] 160 mg tablet 160 mg PO BID Qty: 180 3RF isosorbide mononitrate 60 mg tablet extended release 24 hr 120 mg PO BID Patient Comments: 120 mg qam, 30 mg qpm PO DAILY; albuterol sulfate 90 mcg/actuation HFA aerosol inhaler 2 puff inhalation Q6H PRN (Reason: shortness of breath or wheezing) Qty: 8.5 0RF aspirin [Adult Low Dose Aspirin] 81 mg tablet,delayed release (DR/EC) 81 mg PO DAILY apixaban 5 mg tablet 5 mg PO BID diltiazem HCl 120 mg capsule,extended release 24hr 120 mg PO BEDTIME dexamethasone 2 mg tablet 2 mg PO DAILY PRN (Reason: first onset URI x1-3 days) Qty: 6 0RF cyanocobalamin (vitamin B-12) 1,000 mcg/mL solution 1,000 mcg SUBCUT QMONTH Qty: 1 12RF nitroglycerin [Nitrostat] 0.4 mg tablet, sublingual 0.4 mg sublingual PRN PRN (Reason: Chest Pain) prazosin 1 mg capsule 2 mg PO BID Patient Comments: 2 at night and one in the morning Rx Instructions: 2mg at night and 1 in morning hydralazine 100 mg tablet 100 mg PO BID (DME) Disabled Parking Permit See Rx Instructions .ROUTE .MEDSUPPLY Qty: 1 0RF Rx Instructions: Valid for 5 years torsemide 20 mg tablet 20 mg PO DAILY isosorbide mononitrate 120 mg tablet extended release 24 hr 120 mg PO DAILY furosemide [Lasix] 40 mg tablet 40 mg PO DAILY Qty: 30 0RF carvedilol 25 mg tablet 50 mg PO QPM clopidogrel 75 mg tablet 75 mg PO DAILY (DME) ResMed AirCurve See Rx Instructions .Route .MEDSUPPLY Rx Instructions: BIPAP IPAP: 14 EPAP: 5 PS: 4 DME: Radha Referrals: La Torres DO [Primary Care Provider] - Stand Alone Forms: Patient Portal/API/Survey
[2025-02-02 10:47] LABS: Add Manual Diff / Slide Review NO; Basophils Absolute Auto 0 /uL (0-100); Basophils Percent Auto 0.8 % (0-2); Eosinophils Absolute Auto 100 /uL (0-450); Eosinophils Percent Auto 1.7 % (2-4); Hemoglobin 9.4 g/dL (12.0-16.0); Lymphocytes Absolute Auto 600 /uL (1100-4500); Lymphocytes Percent Auto 13.3 % (25-40); Mean Corpuscular HGB Conc 33.5 % (30-36); Mean Corpuscular Hemoglobin 28.9 PG (26-34); Mean Corpuscular Volume 86.1 fL (80-100); Monocytes Absolute Auto 400 /uL (0-900); Neutrophils Absolute Auto 3500 /uL (1500-7000); Neutrophils Percent Auto 75.2 % (50-75); Platelet Count 210 X10^3/uL (150-400); Red Blood Cell Count 3.26 X10^6/uL (4.0-5.2); White Blood Cell Count 4.7 X10^3/uL (4.5-11.0)
--- NOTE | 2025-02-02 10:52 | EKG_ITS ---
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
[2025-02-02 10:54] LABS: INR 1.3 (0.9-1.3); Prothrombin Time 14.5 SECONDS (9.4-12.5)
[2025-02-02] MEDS: NITROGLYCERIN 0.4 MG SL TAB SL ×3 (10:56→11:09)
[2025-02-02 10:57] LABS: PTT Partial Thromboplastin Tim 41 SECONDS (25.1-36.5)
[2025-02-02 10:59] LABS: Alanine Aminotransferase 28 IU/L (<35); Albumin 3.9 g/dL (3.5-5.0); Albumin Globulin Ratio 1.6 (1.0-2.8); Alkaline Phosphatase 72 U/L (38-126); Aspartate Aminotransferase 25 IU/L (14-36); BUN Creatinine Ratio 17.3 (6-22); Bilirubin Total 0.9 mg/dL (0.2-1.3); Blood Urea Nitrogen 26 mg/dL (7-17); Calcium 8.6 mg/dL (8.4-10.2); Carbon Dioxide 24 mmol/L (22-32); Chloride 107 mmol/L (98-107); Creatine Kinase 42 U/L (30-135); Estimated Glomerular Filt Rate 36 mL/min (>60); Globulin 2.5 g/dL (1.7-4.1); Glucose 115 mg/dL (70-99); HEMOLYSIS < 15 (0-50); Lipase 210 U/L (23-300); Magnesium 2.1 mg/dL (1.6-2.3); Potassium 4.6 mmol/L (3.4-5.1); Sodium 139 mmol/L (137-145); Total Protein 6.4 g/dL (6.3-8.2)
[2025-02-02 11:00] LABS: Lactate (Lactic Acid) 1.1 mmol/L (0.7-2.1)
[2025-02-02 11:13] LABS: NT-proBNP (BNP-Adult 18+) 416 pg/mL (<450); Troponin I < 0.012 ng/mL (0.01-0.034)
[2025-02-02] MEDS: NITROGLYCERIN 50 MG/250 ML INFUS..BTL IV (11:16)
--- NOTE | 2025-02-02 11:30 | PC.NURSE ---
Pt received three doses of nitro with no change. Started nitro drip per MD order.
[2025-02-02 13:10] LABS: Troponin I < 0.012 ng/mL (0.01-0.034)
--- NOTE | 2025-02-02 14:36 | PC.NURSE ---
Pt reports that she is still having pain after titrating medication. 01/01. Pain has improved from 8 when she first arrived to ED
--- NOTE | 2025-02-02 15:37 | PC.NURSE ---
Pt maintains pain level at 4/10. Dr Crenshaw aware. Turned off Nitro drip.
--- NOTE | 2025-02-02 16:11 | PC.NURSE ---
Pt continues to remain 4/10 after turning off Nitro drip.
--- NOTE | 2025-02-02 16:12 | CM.MNRNOTE ---
Pt having severe chest pain. Dr Linder notified and in room.
== END 2025-02-02 16:40 | disposition home or self-care (01) ==
PROVIDERS: Emergency Provider Emergency Medicine; PCP Family Medicine
DX: I20.89 Other forms of angina pectoris (principal); Z86.79 Personal history of other diseases of the circulatory system; Z79.01 Long term (current) use of anticoagulants; Z95.5 Presence of coronary angioplasty implant and graft
CPT/HCPCS: 36415; 80053; 82550; 83605; 83690; 83735; 83880; 84484; 85025; 85610; 85730; 93005; 93010; 96365; 96366; 99284; 99285

== ENCOUNTER → 2025-03-18 07:50 | Outpatient (CLI) | payer MEDICARE, BC, SELFPAY ==
[2025-02-03 11:43] VITALS: BMI 40.7
--- NOTE | 2025-03-18 07:53 | DI.MG.S_ITS ---
MM screening mammo BI: 03/18/2025. BI-RADS: 1 CLINICAL: 75-year old female for bilateral screening mammogram. Tyrer-Cuzick lifetime risk of 5.0%. Current reported family history of breast cancer: mother. PRIOR EXAMS 04/03/2023, 03/31/2021, 07/03/2019, 06/15/2018. MAMMOGRAPHY TECHNIQUE: 2D and 3D (tomosynthesis) digital mammographic views obtained, with additional images as needed for full coverage. Current study was also evaluated with a Computer Aided Detection (CAD) system. DENSITY A. The breasts are almost entirely fatty. MAMMOGRAPHY FINDINGS Bilateral: No suspicious mass, asymmetry, microcalcification, or other abnormality seen. IMPRESSION: * No evidence of malignancy. RECOMMENDATIONS Bilateral * Annual screening mammography. OVERALL ASSESSMENT CATEGORY BI-RADS-1: Negative. The [employer] recommends annual screening mammography beginning at age 40 for women with average risk of breast cancer. ELECTRONICALLY SIGNED: Antonio Grant M.D. on 03/18/2025 at 04:47:01 PM PT Interpreting Station ID: [id number]
== END ==
LOC: MAMMO 07:51
PROVIDERS: PCP Family Medicine; Referring Provider Family Medicine; Visit Provider Family Medicine
DX: Z12.31 Encounter for screening mammogram for malignant neoplasm of breast (principal); R92.313 Mammographic fatty tissue density, bilateral breasts; Z80.3 Family history of malignant neoplasm of breast
CPT/HCPCS: 77063; 77067

== ENCOUNTER → 2025-05-04 15:08 | Outpatient (CLI) | payer MEDICARE, BC, SELFPAY ==
[2025-02-03 11:43] VITALS: BMI 40.7
--- NOTE | 2025-05-04 15:10 | DI.RAD.S_ITS ---
PROCEDURE: XR CHEST 2V INDICATIONS: Cough, history of pneumonia TECHNIQUE: 2 views of the chest were acquired. COMPARISON: [facility], CR, XR CHEST 1V, 05/04/2024, 22:48. [facility], CR, XR CHEST 1V, 11/04/2024, 13:20. FINDINGS: Heart, mediastinum and pulmonary vasculature Heart is mildly enlarged. Mediastinum is unremarkable. Pulmonary vascular is normal. Lungs: Scattered small calcified granulomas again noted. No infiltrates Pleural spaces: Normal-no effusions or pneumothorax. IMPRESSION: No acute disease Dictated by: Rashaad Vega M.D. on 05/05/2025 at 10:27 Approved by: Rashaad Vega M.D. on 05/05/2025 at 10:29
== END ==
PROVIDERS: PCP Family Medicine; Referring Provider Family Medicine; Visit Provider Family Medicine
DX: J98.4 Other disorders of lung (principal); I51.7 Cardiomegaly; R05.9 Cough, unspecified; Z87.01 Personal history of pneumonia (recurrent)
CPT/HCPCS: 71046

== ENCOUNTER 2025-06-01 08:54 | Emergency (ER) | payer MEDICARE, BC, SELFPAY ==
[2025-02-03 11:43] VITALS: BMI 40.7
[2025-06-01] VITALS (15 sets, daily range): BP systolic 97–184; BP diastolic 56–84; PULSE 54–62; RESP 14–24; TEMP 36.5–36.6; O2SAT 97–99; BMI 43.2
--- NOTE | 2025-06-01 09:29 | EKG_ITS ---
[address] [address] [address], [place] [address] Test Date: 2025-06-01 Pat Name: Laila Nino Department: Room: Gender: Female Lead Applier: LILLY : 1950 Requested By: Order Number: [id number] Reading MD: Bry Gonzalez Measurements Intervals [place] Rate: 57 P: 48 [place]: 150 QRS: 21 QRSD: 92 T: 22 QT: 428 QTc: 416 Interpretive Statements Sinus bradycardia Low voltage QRS Electronically Signed On 06-01-2025 13:49:01 PDT by Bry Gonzalez
--- NOTE | 2025-06-01 09:29 | DI.RAD.S_ITS ---
PROCEDURE: XR CHEST 1V INDICATIONS: Chest Pain TECHNIQUE: One view of the chest was acquired. COMPARISON: [facility], CR, XR CHEST 2V, 05/04/2025, 15:19. FINDINGS: Surgical changes and devices: None. Lungs and pleura: Lungs are clear. No pleural effusions or pneumothorax. Mediastinum: Mediastinal contours appear normal. Heart size is enlarged. Bones and chest wall: No suspicious bony lesions. Overlying soft tissues appear unremarkable. IMPRESSION: No acute cardiopulmonary pathology. Dictated by: Dillon Miles M.D. on 06/01/2025 at 10:00 Approved by: Dillon Miles M.D. on 06/01/2025 at 10:00
[2025-06-01 10:38] LABS: Add Manual Diff / Slide Review NO; Hematocrit 28.3 % (36-46); Hemoglobin 9.5 g/dL (12.0-16.0); Lymphocytes Absolute Auto 600 /uL (1100-4500); Mean Corpuscular HGB Conc 33.4 % (30-36); Mean Corpuscular Hemoglobin 27.6 PG (26-34); Mean Corpuscular Volume 82.6 fL (80-100); Platelet Count 216 X10^3/uL (150-400)
[2025-06-01 10:50] LABS: Alanine Aminotransferase 23 IU/L (<35); Albumin 4.0 g/dL (3.5-5.0); Albumin Globulin Ratio 1.4 (1.0-2.8); Alkaline Phosphatase 82 U/L (38-126); Blood Urea Nitrogen 32 mg/dL (7-17); Calcium 8.8 mg/dL (8.4-10.2); Carbon Dioxide 23 mmol/L (22-32); Chloride 108 mmol/L (98-107); Creatine Kinase 54 U/L (30-135); Estimated Glomerular Filt Rate 31 mL/min (>60); Globulin 2.8 g/dL (1.7-4.1); Glucose 105 mg/dL (70-99); HEMOLYSIS < 15 (0-50); Lipase 215 U/L (23-300); Magnesium 2.1 mg/dL (1.6-2.3); Potassium 4.5 mmol/L (3.4-5.1); Sodium 139 mmol/L (137-145); Total Protein 6.8 g/dL (6.3-8.2)
[2025-06-01 11:02] LABS: INR 1.4 (0.9-1.3); NT-proBNP (BNP-Adult 18+) 463 pg/mL (<450); Prothrombin Time 15.3 SECONDS (9.4-12.5); Troponin I < 0.012 ng/mL (0.01-0.034)
[2025-06-01 11:05] LABS: PTT Partial Thromboplastin Tim 36 SECONDS (25.1-36.5)
--- NOTE | 2025-06-01 11:51 | ED.GENADULT ---
HPI - General Adult General Chief complaint: Hypertension Stated complaint: High blood pressure Time Seen by Provider: 06/01/25 11:22 Source: patient Mode of arrival: Ambulatory History of Present Illness HPI narrative: Patient 75-year-old female history of multiple cardiac stents, followed by Dr. Nguyen, presenting today sent from cardio pulmonary rehab due to hypertension. Blood pressure over there was systolic 200s she had a mild headache this morning but no numbness tingling or weakness. She notes a little bit of blurry vision. Blood pressure in the emergency department has come down without any sort of intervention. She denies any kind of chest pain or shortness of breath. Related Data Home Medications ?Medication ?Instructions ?Recorded ?Confirmed isosorbide mononitrate 60 mg 120 mg PO BID 03/08/19 05/04/25 tablet,extended release 24 hr carvedilol 25 mg tablet 50 mg PO QPM 06/01/21 05/04/25 ranolazine 500 mg tablet,extended 500 mg PO BID 09/20/21 05/04/25 release,12 hr (Ranexa) [employer]Med AirCurve 04/20/22 05/04/25 nitroglycerin 0.4 mg sublingual 0.4 mg sublingual PRN PRN Chest 05/09/23 05/04/25 tablet (Nitrostat) Pain prazosin 1 mg capsule 2 mg PO BID 04/02/24 05/04/25 apixaban 5 mg tablet 5 mg PO BID 05/07/24 05/04/25 clopidogrel 75 mg tablet 75 mg PO DAILY 02/02/25 05/04/25 torsemide 20 mg tablet 20 mg PO DAILY 02/04/25 05/04/25 diltiazem HCl 120 mg 180 mg PO BEDTIME 04/30/25 05/04/25 capsule,extended release 24 hr hydralazine 100 mg tablet 100 mg PO TID 04/30/25 05/04/25 Previous Rx's ?Medication ?Instructions ?Recorded Disabled Parking Permit #1 ea 10/23/24 dexamethasone 2 mg tablet 2 mg PO DAILY PRN first onset URI 11/20/24 x1-3 days #6 tabs cyanocobalamin (vitamin B-12) 1,000 mcg SUBCUT QMONTH #1 mL 01/14/25 1,000 mcg/mL injection solution Diovan 160 mg tablet (valsartan) 160 mg PO BID #180 tabs 02/18/25 Wegovy 0.25 mg/0.5 mL subcutaneous 0.25 mg (0.5 mL) SUBCUT QWEEK #2 mL 04/30/25 pen injector (semaglutide (weight loss)) furosemide 40 mg tablet (Lasix) 40 mg PO DAILY #30 tabs 04/30/25 Allergies Allergy/AdvReac Type Severity Reaction Status Date / Time benazepril (From Lotensin) Allergy Severe angioadema Verified 05/27/25 07:54 adhesive Allergy Mild Verified 05/27/25 07:54 Sulfa (Sulfonamide Allergy Unknown Verified 05/27/25 07:54 Antibiotics) (SULFA (SULFONAMIDE ANTIBIOTICS)) Haemophilus B polysaccharide AdvReac Intermediate YRS AGO Verified 05/27/25 07:54 conj w (From TriHIBit) CAUSED FEVER, RECENTLY MOUTH SORES Beta-Blockers AdvReac Mild LOW Verified 05/27/25 07:54 (Beta-Adrenergic Bloc TOLERANCE - HR IN 30s - HOSPITALIZED diazepam AdvReac Mild OPPOSITE Verified 05/27/25 07:54 EFFECT, BECAME HYPER/INCOMPLIANT--O.K. WITH VERSED diphtheria,pertussis AdvReac Mild YRS AGO Verified 05/27/25 07:54 (acellular),te (From CAUSED TriHIBit) FEVER, RECENTLY MOUTH SORES pseudoephedrine AdvReac Mild INCREASED Verified 05/27/25 07:54 HEART RATE Patient History Medical History CKD stage G3b/A1, GFR 30-44 and albumin creatinine ratio <30 mg/g Bronchitis Strain of AC joint Tooth abscess Hypertensive urgency History of FL (myocardial infarction) (~2020) History of CVA (cerebrovascular accident) Concussion COVID-19 Sleep apnea Shoulder pain Diastolic heart failure Atrial fibrillation Iron deficiency anemia Ocular migraine History of stent insertion of renal artery Bone lesion Left renal artery stenosis (~11/22/20) 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) Parumbilical hernia (~11/22/20) Hiatal hernia (~11/22/20) Osteopenia of femoral neck, bilateral (~02/2019) Macular degeneration, age related, nonexudative Dyslipidemia Thyroid nodule Proteus enteritis (~2018) EBV infection (~1962) Coccidioidomycosis (~1962) Heterozygous MTHFR mutation [id number] Renal artery atherosclerosis (09/22/11) Systemic lupus erythematosus Atypical nevus of abdominal wall Lipoma Angioedema Statin intolerance Elevated coronary artery calcium score Prinzmetal's angina (1975) Hypertension CAD (coronary artery disease) (1979) Shingles (2016) Asthma History of recurrent pneumonia Severe obstructive sleep apnea-hypopnea syndrome (10/22/15) Surgical History History of melanoma excision Anesthesia H/O colonoscopy with polypectomy (~04/2020) History of tonsillectomy History of cholecystectomy Stented coronary artery (2013) History of arthroplasty (01/20/13) History of arthroplasty (12/09/12) History of cataract removal with insertion of prosthetic lens (2014) Family History Father Lung cancer Hypertension Mother Parkinson's disease Breast cancer CAD (coronary artery disease) Brother History of heart disease Social History marital status: household members: family and friend(s) lives independently: No caregiver/support person: No pets and animals: Yes Smoking Status: Never smoker alcohol intake: never Smoking Status: Never smoker alcohol intake frequency: holidays/special occasions only Exam Initial Vital Signs Initial Vital Signs: Vital Signs Temperature 98 F 06/01/25 09:22 Pulse Rate 57 L 06/01/25 09:22 Respiratory Rate 20 06/01/25 09:22 Blood Pressure 166/74 H 06/01/25 09:22 Pulse Oximetry 99 06/01/25 09:22 Oxygen Delivery Method Room Air 06/01/25 09:22 GENERAL: Alert pleasant 75-year-old female and in no acute distress. HEENT: Head atraumatic,EOMI, pupils reactive, face symmetric, moist mucous membranes CARDIOVASCULAR: Regular rate and rhythm without murmurs, rubs or gallops. RESPIRATORY: Breath sounds equal bilaterally, no wheezes rales or rhonchi. ABDOMEN: Soft, nontender. Normoactive bowel sounds all 4 quadrants. No guarding or rebound. EXTREMITIES: Normal range of motion, no clubbing or edema. Neurovascularly intact NEUROLOGICAL: Alert and oriented x4.Normal gait and speech. Cranial nerves II through XII grossly intact. Good [id number], good [id number], strength equal bilaterally, no dysarthria or aphasia, sensation in tact to soft touch bilaterally, no visual changes, no facial droop SKIN: Warm, dry, no laceration, no petechiae, no rashes or lesions. Course Orders Ordered: ED Orders 06/01/25 09:29 XR chest 1V Stat EKG-12 Lead Stat 06/01/25 10:20 Complete Blood Count AUTO DIFF Stat Comprehensive Metabolic Panel Stat Lipase Stat Magnesium Stat NT-proBNP (BNP-Adult 18+) Stat PTT Partial Thromboplastin [facility] Stat Prothrombin Time INR Stat Troponin & CK Cardiac Panel Stat 06/01/25 12:15 Trop I [Troponin I] Stat 06/01/25 12:46 CT head/brain wo con Stat Discontinued Medications Aspirin (Aspirin 81 Mg Chew Tab) 324 mg PO NOW ONE Stop: 06/01/25 09:30 Last Admin: 06/01/25 11:34 Dose: Not Given Documented By: Vital Signs Vital signs: Vital Signs - 8 hr 06/01/25 09:22 06/01/25 09:52 06/01/25 09:55 Temperature 98 F Pulse Rate 57 L 60 Respiratory Rate 20 14 Blood Pressure 166/74 H 184/77 H Pulse Oximetry 99 99 Oxygen Delivery Method Room Air 06/01/25 09:55 06/01/25 10:00 06/01/25 10:00 Temperature Pulse Rate 58 L 57 L Respiratory Rate 19 15 Blood Pressure 183/81 H Pulse Oximetry 99 99 Oxygen Delivery Method Room Air Room Air 06/01/25 10:30 06/01/25 10:30 06/01/25 11:00 Temperature Pulse Rate 58 L 55 L Respiratory Rate 19 15 Blood Pressure 149/84 H Pulse Oximetry 98 97 Oxygen Delivery Method 06/01/25 11:00 06/01/25 11:30 06/01/25 11:30 Temperature Pulse Rate 54 L Respiratory Rate 18 Blood Pressure 167/72 H 168/72 H Pulse Oximetry 97 Oxygen Delivery Method Room Air 06/01/25 12:00 06/01/25 12:00 06/01/25 12:30 Temperature Pulse Rate 56 L 55 L Respiratory Rate 21 21 Blood Pressure 165/81 H Pulse Oximetry 98 98 Oxygen Delivery Method 06/01/25 12:31 06/01/25 12:31 06/01/25 13:00 Temperature Pulse Rate 56 L 57 L Respiratory Rate 24 23 Blood Pressure 138/65 Pulse Oximetry 97 98 Oxygen Delivery Method 06/01/25 13:18 06/01/25 13:18 06/01/25 13:30 Temperature Pulse Rate 62 58 L Respiratory Rate 20 19 Blood Pressure 97/56 L Pulse Oximetry 98 97 Oxygen Delivery Method 06/01/25 13:31 06/01/25 13:31 06/01/25 13:42 Temperature 97.7 F Pulse Rate 59 L 61 Respiratory Rate 20 20 Blood Pressure 176/78 H 181/80 H Pulse Oximetry 98 97 Oxygen Delivery Method Room Air Medical Decision Making Lab Data 06/01/25 10:20 06/01/25 10:20 Labs: Lab Results 06/01/25 06/01/25 Range/Units 10:20 12:15 WBC 4.6 (4.5-11.0) X10^3/uL RBC 3.43 L (4.0-5.2) X10^6/uL Hgb 9.5 L (12.0-16.0) g/dL Hct 28.3 L (36-46) % MCV 82.6 (80-100) fL MCH 27.6 (26-34) PG MCHC 33.4 (30-36) % RDW 16.2 H (11.6-14.8) % Plt Count 216 (150-400) X10^3/uL Neut % (Auto) 75.5 H (50-75) % Lymph % (Auto) 13.6 L (25-40) % [place] % (Auto) 8.3 (3-14) % Eos % (Auto) 1.9 L (2-4) % Baso % (Auto) 0.7 (0-2) % Neut # (Auto) 3400 (0203-4901) /uL Lymph # (Auto) 600 L (8590-1776) /uL [place] # (Auto) 400 (0-900) /uL Eos # (Auto) 100 (0-450) /uL Baso # (Auto) 0 (0-100) /uL PT 15.3 H (9.4-12.5) SECONDS INR 1.4 H (0.9-1.3) APTT 36 (25.1-36.5) SECONDS Sodium 139 (137-145) mmol/L Potassium 4.5 (3.4-5.1) mmol/L Chloride 108 H (98-107) mmol/L Carbon Dioxide 23 (22-32) mmol/L BUN 32 H (7-17) mg/dL Creatinine 1.68 H (0.52-1.04) mg/dL Estimated GFR 31 L (>60) mL/min BUN/Creatinine Ratio 19.0 (6-22) Glucose 105 H (70-99) mg/dL Calcium 8.8 (8.4-10.2) mg/dL Magnesium 2.1 (1.6-2.3) mg/dL Total Bilirubin 0.9 (0.2-1.3) mg/dL AST 24 (14-36) IU/L ALT 23 (<35) IU/L Alkaline Phosphatase 82 (38-126) U/L Total Creatine Kinase 54 (30-135) U/L Troponin I < 0.012 < 0.012 (0.01-0.034) ng/mL NT-Pro-B Natriuret Pep 463 H (<450) pg/mL Total Protein 6.8 (6.3-8.2) g/dL Albumin 4.0 (3.5-5.0) g/dL Globulin 2.8 (1.7-4.1) g/dL Albumin/Globulin Ratio 1.4 (1.0-2.8) Lipase 215 (23-300) U/L Imaging Data Chest x-ray: Radiologist's Impression: PROCEDURE: XR CHEST 1V INDICATIONS: Chest Pain TECHNIQUE: One view of the chest was acquired. COMPARISON: [facility], , XR CHEST 2V, 05/04/2025, 15:19. FINDINGS: Surgical changes and devices: None. Lungs and pleura: Lungs are clear. No pleural effusions or pneumothorax. Mediastinum: Mediastinal contours appear normal. Heart size is enlarged. Bones and chest wall: No suspicious bony lesions. Overlying soft tissues appear unremarkable. IMPRESSION: No acute cardiopulmonary pathology. Dictated by: Dillon Miles M.D. on 06/01/2025 at 10:00 CT scan - head: Radiologist's Impression: PROCEDURE: CT HEAD/BRAIN WO CON INDICATIONS: headache eliquis HTN TECHNIQUE: Noncontrast 4.5 mm thick angled axial sections acquired from the foramen magnum to the vertex, with coronal and sagittal reformats. For radiation dose reduction, the following was used: automated exposure control, adjustment of mA and/or kV according to patient size. COMPARISON: [facility], CT, CT HEAD/BRAIN WO CON, 03/10/2024, 15:50. FINDINGS: Image quality: Diagnostic. CSF spaces: Basal cisterns are patent. No extra-axial fluid collections. The ventricles are symmetric in size and shape. Brain: No intracranial bleeds or mass effect. There is cerebral volume loss, with resultant ventricular and sulcal prominence. There are periventricular and deep white matter chronic small vessel ischemic changes. There is intracranial internal carotid artery atherosclerosis. Skull and face: Calvarium and visualized facial bones appear intact, without suspicious lesions. Sinuses: Visualized sinuses and mastoids are clear. IMPRESSION: No acute intracranial pathology. Dictated by: Dillon Miles M.D. on 06/01/2025 at 13:17 Approved by: Dillon Miles M.D. on 06/01/2025 at 13:18 ECG Data Attestation: I personally reviewed and interpreted this ECG as follows: Interpretation: Normal sinus rhythm rate 57 DC interval 150 QRS 92 QTC 416 T-wave inversion noted in lead 3 similar prior actually improved from [facility] Narrative Medical decision making narrative: [facility] CC: Hypertension Complicating co-morbidities: Multiple cardiac stents hypertension on anticoagulation Data collected from: Patient previous record Medical records reviewed: Previous ED record Differential considered: Hypertensive emergency ACS intracranial hemorrhage Exam documented above, pertinent findings include: Alert well-appearing 75-year-old female no neuro deficits [facility] 0 Lab Test results independently reviewed as above. Pertinent findings: CBC no leukocytosis no anemia CMP no electrolyte abnormality creatinine is stable 1.68 previously 1.50 Troponin negative x2 BNP 463 Independently reviewed EKG as above Sinus rhythm persistent T-wave inversion in lead 3 Imaging studies independently reviewed: Head CT no intracranial process Chest x-ray no acute cardiopulmonary process Consultations: None Treatments: None Re-evaluations: Patient blood pressure has improved without any intervention. She appears well Discussion: Patient 75-year-old female history of hypertension multiple cardiac stents coronary artery disease presenting today with elevated blood pressure. She had a mild headache and blurry vision this morning as well. She is still kind of reports some mild headache but no focal deficits. She is on Eliquis. Head CT is negative. Blood work is overall reassuring she has no evidence of end-organ damage 2- troponins. At this time continue all home blood pressure medications no further workup or interventions. Patient feels comfortable going Discharge Plan Departure Patient Disposition: Home Clinical Impression: Hypertension Instructions: DI for High Blood Pressure Activity Restrictions/Additional Instructions: *You have been diagnosed with hypertension *What to do: At this time workup in the emergency department overall reassuring your blood pressure has improved *Continue to take medications as directed *Follow up with your primary care provider in 2-3 days or call [phone] *Return to ER if you should have increasing headache chest pain shortness of or any new, worsening or concerning symptoms Prescriptions: No Action ranolazine [Ranexa] 500 mg tablet extended release 12 hr 500 mg PO BID valsartan [Diovan] 160 mg tablet 160 mg PO BID Qty: 180 3RF isosorbide mononitrate 60 mg tablet extended release 24 hr 120 mg PO BID Patient Comments: 120 mg qam, 30 mg qpm PO DAILY; apixaban 5 mg tablet 5 mg PO BID dexamethasone 2 mg tablet 2 mg PO DAILY PRN (Reason: first onset URI x1-3 days) Qty: 6 0RF cyanocobalamin (vitamin B-12) 1,000 mcg/mL solution 1,000 mcg SUBCUT QMONTH Qty: 1 12RF nitroglycerin [Nitrostat] 0.4 mg tablet, sublingual 0.4 mg sublingual PRN PRN (Reason: Chest Pain) prazosin 1 mg capsule 2 mg PO BID Patient Comments: 2 at night and one in the morning Rx Instructions: 2mg at night and 1 in morning (DME) Disabled Parking Permit See Rx Instructions .ROUTE .MEDSUPPLY Qty: 1 0RF Rx Instructions: Valid for 5 years torsemide 20 mg tablet 20 mg PO DAILY hydralazine 100 mg tablet 100 mg PO TID diltiazem HCl 120 mg capsule,extended release 24hr 180 mg PO BEDTIME furosemide [Lasix] 40 mg tablet 40 mg PO DAILY Qty: 30 0RF Rx Instructions: until out of current rx, then switching to torsemide Wegovy 0.25 mg/0.5 mL pen injector 0.25 mg SUBCUT QWEEK Qty: 2 0RF Rx Instructions: administer weeks 1 through 4 of therapy carvedilol 25 mg tablet 50 mg PO QPM clopidogrel 75 mg tablet 75 mg PO DAILY (DME) Huong De Jesus See Rx Instructions .Route .MEDSUPPLY Rx Instructions: BIPAP IPAP: 14 EPAP: 5 PS: 4 DME: [facility] Referrals: La Torres DO [Primary Care Provider, Medical] Stand Alone Forms: Patient Portal/API
--- NOTE | 2025-06-01 12:46 | DI.CT.S_ITS ---
PROCEDURE: CT HEAD/BRAIN WO CON INDICATIONS: headache eliquis HTN TECHNIQUE: Noncontrast 4.5 mm thick angled axial sections acquired from the foramen magnum to the vertex, with coronal and sagittal reformats. For radiation dose reduction, the following was used: automated exposure control, adjustment of mA and/or kV according to patient size. COMPARISON: [facility], CT, CT HEAD/BRAIN WO CON, 03/10/2024, 15:50. FINDINGS: Image quality: Diagnostic. CSF spaces: Basal cisterns are patent. No extra-axial fluid collections. The ventricles are symmetric in size and shape. Brain: No intracranial bleeds or mass effect. There is cerebral volume loss, with resultant ventricular and sulcal prominence. There are periventricular and deep white matter chronic small vessel ischemic changes. There is intracranial internal carotid artery atherosclerosis. Skull and face: Calvarium and visualized facial bones appear intact, without suspicious lesions. Sinuses: Visualized sinuses and mastoids are clear. IMPRESSION: No acute intracranial pathology. Dictated by: Dillon Miles M.D. on 06/01/2025 at 13:17 Approved by: Dillon Miles M.D. on 06/01/2025 at 13:18
[2025-06-01 13:01] LABS: Troponin I < 0.012 ng/mL (0.01-0.034)
== END 2025-06-01 13:55 | disposition home or self-care (01) ==
PROVIDERS: Emergency Provider Emergency Medicine; PCP Family Medicine
DX: I10 Essential (primary) hypertension (principal); R07.9 Chest pain, unspecified; R51.9 Headache, unspecified; Z79.01 Long term (current) use of anticoagulants
CPT/HCPCS: 36415; 70450; 71045; 80053; 82550; 83690; 83735; 83880; 84484; 85025; 85610; 85730; 93005; 99283; 99284

== ENCOUNTER → 2025-06-18 12:39 | Outpatient (CLI) | payer MEDICARE, BC, SELFPAY ==
[2025-02-03 11:43] VITALS: BMI 40.7
--- NOTE | 2025-06-18 12:41 | DI.RAD.S_ITS ---
PROCEDURE: XR DEXA AXIAL SKELETON INDICATIONS: Bone Density Screening COMPARISON: [facility], CR, XR DEXA AXIAL SKELETON, 06/02/2022, 9:58. FINDINGS: Lumbar Spine: Bone mineral density 0.962 g/cm2, T score -0.8, compared to -1.1. Left Femoral Neck: Bone mineral density is 0.581 g/cm2, T score -2.4, compared to -2.0. Left Hip: Bone mineral density 0.772 g/cm2, T score -1.4, compared to -1.1. Fracture Risk Calculation (when applicable): 10-year fracture risk of a major osteoporotic fracture 27 percent and of a hip fracture 17 percent. (T score greater or equal to -1.0 to: NORMAL) (T score from -1.1 to -2.4: OSTEOPENIA) (T score less than or equal to -2.5: OSTEOPOROSIS) IMPRESSION: Progressive bone mineral density loss most severe in the left femoral neck now demonstrating severe osteopenia within approximate 7% bone mineral density loss. Follow-up guidelines as follows: Osteoporosis: Consider a repeat DEXA and Vertebral Fracture Assessment (VFA) exam in 2 years or sooner if medically necessary, to reassess this patient's status. Osteopenia: Consider a repeat DEXA in 2-3 years to reassess this patient's status, or if there is a new clinical indication. Normal: Consider a repeat DEXA in 5 years or sooner, or if there is a new clinical indication. All treatment decisions require clinical judgment and consideration of individual patient factors, including patient preferences, comorbidities, previous drug use, risk factors not captured in the FRAX model (e.g., frailty, falls, vitamin D deficiency, increased bone turnover, interval significant decline in bone density ) and possible under- or over-estimation of fracture risk by FRAX. In addition, the NOF Guide recommends that FDA-approved medical therapies be considered in postmenopausal women and men age >= 50 years with a: * Hip or vertebral (clinical or morphometric) fracture * T-score of <=-2.5 at the spine or hip * Ten-year fracture probability by FRAX of >= 3% for hip fracture or >=20% for major osteoporotic fracture. Dictated by: Alix Brown M.D. on 06/19/2025 at 20:34 Approved by: Alix Brown M.D. on 06/19/2025 at 20:35
== END ==
PROVIDERS: PCP Family Medicine; Referring Provider Family Medicine; Visit Provider Family Medicine
DX: M85.89 Other specified disorders of bone density and structure, multiple sites (principal)
CPT/HCPCS: 77080

== ENCOUNTER 2025-08-31 08:30 | Outpatient (RCR) | payer MEDICARE, BC, SELFPAY ==
[2025-02-03 11:43] VITALS: BMI 40.7
== END 2025-08-31 10:30 ==
LOC: CAR 08:30
PROVIDERS: PCP Family Medicine; Referring Provider Internal Medicine Interventional Cardiology; Visit Provider Internal Medicine Interventional Cardiology
DX: I45.9 Conduction disorder, unspecified (principal); R00.2 Palpitations; R06.09 Other forms of dyspnea; Z68.41 Body mass index [BMI] 40.0-44.9, adult; Z95.5 Presence of coronary angioplasty implant and graft
CPT/HCPCS: 93798

== ENCOUNTER → 2025-08-31 10:30 | Outpatient (CLI) | payer MEDICARE, BC, SELFPAY ==
[2025-02-03 11:43] VITALS: BMI 40.7
--- NOTE | 2025-08-31 10:31 | DI.RAD.S_ITS ---
PROCEDURE: XR TIBIA FUBULA RT 2V INDICATIONS: r/o lytic lesions TECHNIQUE: 2 views of the tibia and fibula were acquired. COMPARISON: None. FINDINGS: Bones: No fractures or dislocations. No suspicious bony lesions. Soft tissues: No suspicious soft tissue calcifications or masses. IMPRESSION: No lytic lesions Approved by: Kalia Leo M.D. on 08/31/2025 at 12:41
--- NOTE | 2025-08-31 10:31 | DI.RAD.S_ITS ---
PROCEDURE: XR TIBIA FIBULA LT 2V INDICATIONS: r/o lytic lesions TECHNIQUE: 2 views of the tibia and fibula were acquired. COMPARISON: None. FINDINGS: Bones: No fractures or dislocations. No suspicious bony lesions. Soft tissues: No suspicious soft tissue calcifications or masses. IMPRESSION: No lytic lesions Approved by: Kalia Leo M.D. on 08/31/2025 at 12:41
== END ==
PROVIDERS: PCP Family Medicine; Referring Provider Family Medicine; Visit Provider Family Medicine
DX: D47.2 Monoclonal gammopathy (principal); G89.29 Other chronic pain
CPT/HCPCS: 73590